=== PATIENT | male | born 1935 | race Caucasian/White ===

== ENCOUNTER 2016-11-21 21:54 | Emergency (ER) | payer MEDICARE ==
[2016-11-21 22:04] VITALS: BP 154/97; PULSE 74; RESP 18; TEMP 98.3
--- NOTE | 2016-11-21 22:21 | ED ---
Lower Extremity Injury HPI - General Chief Complaint: Extremity Injury, Lower Stated Complaint: knee pain Time Seen by Provider: 11/21/16 22:04 Source: patient, EMS, RN notes reviewed Mode of arrival: EMS Limitations: no limitations - History of Present Illness Initial Comments: 84-year-old female presents to the emergency department with chief complaint of left knee pain. Patient did fall a few days ago EMS was called to the house help get him out. Patient since has noticed some swelling around the left knee and pain. Patient denies any skin trauma. Patient states that the fall he has not had any other injury to the knee. Patient states nothing helps with her in the fall. Patient states he is here for evaluation.Patient denies any recent fever, chills, shortness of breath, chest pain, back pain, abdominal pain, nausea vomiting, numbness or tingling, dysuria or hematuria, constipation or diarrhea, headaches or visual changes, or any other current symptoms. - Related Data Home Medications Medication Instructions Recorded Confirmed Ferrous Sulfate [Feosol] 650 mg PO DAILY 03/25/14 11/21/16 Multivitamins, Thera [Multivitamin] 1 tab PO DAILY 03/25/14 11/21/16 Rivaroxaban [Xarelto] 20 mg PO DAILY 03/25/14 11/21/16 Tamsulosin [Flomax] 0.4 mg PO DAILY 03/25/14 11/21/16 Ascorbic Acid [Vitamin C] 500 mg PO DAILY 11/21/16 11/21/16 Ergocalciferol (Vitamin D2) 50,000 unit PO Q14D 11/21/16 11/21/16 [Vitamin D2] Fluticasone Nasal [place] [Flonase 2 spr EA NOSTRIL DAILY 11/21/16 11/21/16 Nas[place]] Loratadine [Claritin] 10 mg PO DAILY 11/21/16 11/21/16 Sertraline [Zoloft] 50 mg PO DAILY 11/21/16 11/21/16 Allergies Allergy/AdvReac Type Severity Reaction Status Date / Time No Known Allergies Allergy Verified 11/21/16 23:02 Review of Systems ROS Statement: Those systems with pertinent positive or pertinent negative responses have been documented in the HPI. ROS Other: All systems not noted in ROS Statement are negative. Past Medical History Additional Past Medical History / Comment(s): prostate, anemia Additional Past Surgical History / Comment(s): kidney, brain tumor Past Psychological History: Depression Smoking Status: Never smoker Past Alcohol Use History: None Reported Past Drug Use History: None Reported General Exam - General Exam Comments Initial Comments: General: The patient is awake and alert, in no distress, and does not appear acutely ill. Neck: The neck is supple, there is no tenderness. Cardiovascular: There is a regular rate and rhythm. No murmur, rub or gallop is appreciated. Respiratory: Lungs are clear to auscultation, respirations are non-labored, breath sounds are equal. No wheezes, stridor, rales, or rhonchi. Musculoskeletal: Sensation intact with 2+ pulses of the left extremity. Full range of motion of left ankle left knee and left hip. Patient does appear to have a joint effusion. No bruising no skin trauma. No erythema, no induration Neurological: CN II-XII intact, There are no obvious motor or sensory deficits. Coordination appears grossly intact. Speech is normal. Skin: Skin is warm and dry and no rashes or lesions are noted. Psychiatric: Normal mood and affect. Limitations: no limitations Course Vital Signs 11/21/16 22:01 Temperature 98.3 F Pulse Rate 74 Respiratory 18 Rate Blood Pressure 154/97 O2 Sat by Pulse 98 Oximetry Procedures - Orthopedic Splinting/Casting Injury #1 Side: left Lower Extremity Injury Location: knee Lower Extremity Immobilizer: Denis wrap Medical Decision Making - Medical Decision Making 81-year-old male presents with left knee pain. At this time patient underwent an x-ray. This time patient's x-rays reviewed and does not show any acute process. This time we discussed patient has a left joint effusion. We discussed ice discussed Tylenol for pain control. We discussed follow-up with orthopedics. We discussed use of Denis bandage. Patient stated that he understood and all questions have been answered. He will be discharged. - Radiology Data Radiology results: report reviewed, image reviewed Disposition Clinical Impression: Effusion, left knee Disposition: HOME SELF-CARE Condition: Stable Instructions: Swollen Knee Joint (ED) Additional Instructions: Please use medication as discussed. Please follow up with family doctor if symptoms have not improved over the next two days. Please return to the emergency room if your symptoms increase or worsen or for any other concerns. Referrals: Darvin Hurd DO [Primary Care Provider] - 1-2 days Braaksma,Tigre M, MD [Medical Doctor] - 1-2 days Time of Disposition: 23:41
--- NOTE | 2016-11-21 23:20 | XR ---
EXAM: XR Left Knee, 3 views. CLINICAL HISTORY: Reason: Pain TECHNIQUE: Three views of the left knee. COMPARISON: No relevant prior studies available. FINDINGS: Bones/joints: Moderate to severe osteoarthritis involves the medial knee joint compartment and patellofemoral joint. There is a large knee joint effusion distending the suprapatellar recess. No evidence of acute fracture, dislocation or bony erosion. Soft tissues: Scattered nodular soft tissue calcifications which may reflect calcified phleboliths. IMPRESSION: Moderate osteoarthritis. Large knee joint effusion. No acute fracture or dislocation.
== END 2016-11-22 00:10 | disposition home or self-care (01) ==
LOC: EC 21:54
DX: M25.462 Effusion, left knee (principal); F32.9 Major depressive disorder, single episode, unspecified; D64.9 Anemia, unspecified; Z79.899 Other long term (current) drug therapy; W18.30XA Fall on same level, unspecified, initial encounter
CPT/HCPCS: 99283

== ENCOUNTER 2017-01-31 22:47 | Emergency (ER) | payer MEDICARE ==
--- NOTE | 2017-01-31 23:18 | ED ---
Lower Extremity Injury HPI - General Chief Complaint: Extremity Injury, Lower Stated Complaint: Knee Pain Time Seen by Provider: 01/31/17 22:54 Source: patient, RN notes reviewed, old records reviewed Mode of arrival: EMS Limitations: physical limitation - History of Present Illness Initial Comments: Patient is an 82-year-old male presents emergency Department chief complaint of left knee pain. Patient reports that he's had this for the past 3 months. Patient reports he seen an orthopedic physician has had 2 steroid injections with a. Patient reports that the pain is diminished with flexion however whenever he is walking or ambulating and is painful. Patient denies any fever or chills or other associated symptoms. He denies any calf pain or thigh pain. - Related Data Home Medications Medication Instructions Recorded Confirmed Ferrous Sulfate [Feosol] 650 mg PO DAILY 03/25/14 11/21/16 Multivitamins, Thera [Multivitamin] 1 tab PO DAILY 03/25/14 11/21/16 Rivaroxaban [Xarelto] 20 mg PO DAILY 03/25/14 11/21/16 Tamsulosin [Flomax] 0.4 mg PO DAILY 03/25/14 11/21/16 Ascorbic Acid [Vitamin C] 500 mg PO DAILY 11/21/16 11/21/16 Ergocalciferol (Vitamin D2) 50,000 unit PO Q14D 11/21/16 11/21/16 [Vitamin D2] Fluticasone Nasal [place] [Flonase 2 spr EA NOSTRIL DAILY 11/21/16 11/21/16 Nasal [place]] Loratadine [Claritin] 10 mg PO DAILY 11/21/16 11/21/16 Sertraline [Zoloft] 50 mg PO DAILY 11/21/16 11/21/16 Previous Rx's Medication Instructions Recorded traMADol HCl [Ultram] 50 mg PO Q6H PRN #12 tab 02/01/17 Allergies Allergy/AdvReac Type Severity Reaction Status Date / Time No Known Allergies Allergy Verified 01/31/17 22:58 Review of Systems ROS Statement: Those systems with pertinent positive or pertinent negative responses have been documented in the HPI. ROS Other: All systems not noted in ROS Statement are negative. Past Medical History Additional Past Medical History / Comment(s): prostate, anemia Additional Past Surgical History / Comment(s): kidney, brain tumor Past Psychological History: Depression Smoking Status: Never smoker Past Alcohol Use History: None Reported Past Drug Use History: None Reported General Exam - General Exam Comments Initial Comments: Pleasant 82-year-old male. No distress. Limitations: physical limitation General appearance: alert, in no apparent distress Head exam: Present: atraumatic, normocephalic, normal inspection Eye exam: Present: normal appearance, PERRL, EOMI. Absent: scleral icterus, conjunctival injection, periorbital swelling ENT exam: Present: normal exam, mucous membranes moist Neck exam: Present: normal inspection. Absent: tenderness, meningismus, lymphadenopathy Respiratory exam: Present: normal lung sounds bilaterally. Absent: respiratory distress, wheezes, rales, rhonchi, stridor Cardiovascular Exam: Present: regular rate, normal rhythm, normal heart sounds. Absent: systolic murmur, diastolic murmur, rubs, gallop, clicks GI/Abdominal exam: Present: soft, normal bowel sounds. Absent: distended, tenderness, guarding, rebound, rigid Extremities exam: Present: normal inspection, full ROM, normal capillary refill , other (Left knee swelling). Absent: tenderness, pedal edema, joint swelling, calf tenderness Back exam: Present: normal inspection Neurological exam: Present: alert, oriented X3, CN II-XII intact Psychiatric exam: Present: normal affect, normal mood Skin exam: Present: warm, dry, intact, normal color. Absent: rash Course Vital Signs 01/31/17 02/01/17 22:52 01:15 Temperature 97.6 F 98.3 F Pulse Rate 101 H 80 Respiratory 18 16 Rate Blood Pressure 150/93 125/74 O2 Sat by Pulse 98 98 Oximetry Medical Decision Making - Medical Decision Making Patient is an 82-year-old male presents emergency Department chief complaint of left knee pain. Patient reports that he's had this for the past 3 months. Patient reports he seen an orthopedic physician has had 2 steroid injections with a. Patient reports that the pain is diminished with flexion however whenever he is walking or ambulating and is painful. Patient denies any fever or chills or other associated symptoms. He denies any calf pain or thigh pain. Patient does have swollen left knee, evidecne of effusion. PAtient xray shows severe arthritis. Patient CBC and uric acid are within normal limits. Discussed patient can take motrin and will write for tramadol for severe pain. Discussed follow up with PCP and orthopedic physcian. Patient and patient family agree to treatment plan and will comply - Lab Data Result diagrams: 01/31/17 23:47 Lab Results 01/31/17 01/31/17 Range/Units 23:47 23:47 WBC 8.2 (3.8-10.6) k/uL RBC 3.45 L (4.30-5.90) m/uL Hgb 10.5 L (13.0-17.5) gm/dL Hct 32.3 L (39.0-53.0) % MCV 93.7 (80.0-100.0) fL MCH 30.5 (25.0-35.0) pg MCHC 32.5 (31.0-37.0) g/dL RDW 14.4 (11.5-15.5) % Plt Count 74 L (150-450) k/uL Neutrophils % 83 % Lymphocytes % 10 % Monocytes % 5 % Eosinophils % 0 % Basophils % 0 % Neutrophils # 6.8 (1.3-7.7) k/uL Lymphocytes # 0.9 L (1.0-4.8) k/uL Monocytes # 0.4 (0-1.0) k/uL Eosinophils # 0.0 (0-0.7) k/uL Basophils # 0.0 (0-0.2) k/uL Manual Slide Review Performed Large Platelets Present Uric Acid 6.7 (3.5-8.5) mg/dL - Radiology Data Radiology results: report reviewed Advanced try car part mental osteoarthritis. Disposition Clinical Impression: Osteoarthritis of left knee Disposition: HOME SELF-CARE Condition: Good Instructions: Osteoarthritis (ED) Additional Instructions: Rest, ice, elevate extremity. Patient advised to follow-up with orthopedic physician and primary care physician within the next 2-3 days. Return to the emergency department if any signs or symptoms occur. Prescriptions: traMADol HCl [Ultram] 50 mg PO Q6H PRN #12 tab PRN Reason: Pain Referrals: Darvin Hurd DO [Primary Care Provider] - 1-2 days Time of Disposition: 00:42
--- NOTE | 2017-02-01 00:19 | XR ---
Exam: XR LEFT KNEE History: Pain. Swelling. No new injury reported. Comparison: Radiographs of the left knee dated 11/21/16. Technique: 3 views. Findings: Redemonstration of advanced tricompartmental osteoarthritis, most severe at the medial compartment and patellofemoral joint. Near-complete loss of joint space of the medial compartment. No abnormal soft tissue calcification. No significant erosive change appreciated. Probable moderate knee joint effusion. No aggressive appearing process. No definite evidence for acute displaced fracture or dislocation. Impression: Advanced tricompartmental osteoarthritis.
[2017-02-01 00:24] LABS: Basophils % (A) 0 %; CHCM 32.1; Eosinophils % (A) 0 %; HCT 32.3 % (39.0-53.0); HDW 2.36; HGB 10.5 gm/dL (13.0-17.5); Large Platelets Flag Marked; Luc % (Auto) 1; Lymphocytes # (A) 0.9 k/uL (1.0-4.8); Lymphocytes % (A) 10 %; MCH 30.5 pg (25.0-35.0); MCHC 32.5 g/dL (31.0-37.0); MCV 93.7 fL (80.0-100.0); Monocytes # (A) 0.4 k/uL (0-1.0); Monocytes % (A) 5 %; Neutrophils # (A) 6.8 k/uL (1.3-7.7); Neutrophils % (A) 83 %; RBC 3.45 m/uL (4.30-5.90); RDW 14.4 % (11.5-15.5); WBC 8.2 k/uL (3.8-10.6); WBC (Perox) 8.53
[2017-02-01] MEDS ORDERED: traMADol 50 MG STARTER PACK 3 TAB BTL PO STA (00:54)
[2017-02-01 00:55] LABS: Large Platelets Present; Manual Review Performed
[2017-02-01 01:25] VITALS: BP 125/74; PULSE 80; RESP 16; TEMP 98.3
== END 2017-02-01 01:22 | disposition home or self-care (01) ==
LOC: EC 22:47
DX: M17.12 Unilateral primary osteoarthritis, left knee (principal); D64.9 Anemia, unspecified; F32.9 Major depressive disorder, single episode, unspecified; Z79.899 Other long term (current) drug therapy
CPT/HCPCS: 36415; 84550; 85025; 99284

== ENCOUNTER 2017-04-15 02:27 | Inpatient (IN) | payer MEDICARE ==
[2017-04-15] MEDS ORDERED: DIPH,PERTUS(ACELL)TETVAC-LF 0.5 ML VIAL IM ONE (02:31)
[2017-04-15 03:33] LABS: Basophils % (A) 0 %; CH 30.6; CHCM 32.3; Eosinophils % (A) 1 %; HCT 21.3 % (39.0-53.0); HDW 2.28; Large Platelets Flag Marked; Luc # (Auto) 0.14; Luc % (Auto) 2; Lymphocytes # (A) 1.4 k/uL (1.0-4.8); Lymphocytes % (A) 21 %; MCH 29.7 pg (25.0-35.0); MCHC 31.2 g/dL (31.0-37.0); MCV 95.4 fL (80.0-100.0); Mean Platelet Volume 14.1; Monocytes # (A) 0.5 k/uL (0-1.0); Monocytes % (A) 7 %; Neutrophils # (A) 4.7 k/uL (1.3-7.7); Neutrophils % (A) 69 %; RBC 2.24 m/uL (4.30-5.90); RDW 15.6 % (11.5-15.5); WBC 6.8 k/uL (3.8-10.6); WBC (Perox) 6.74
[2017-04-15 03:36] LABS: HGB 6.6 gm/dL (13.0-17.5)
[2017-04-15 03:37] LABS: INR 1.3 (<1.2); Partial Thromboplastin Time 27.9 sec (22.0-30.0); Prothrombin Time 12.8 sec (9.0-12.0)
[2017-04-15 03:39] LABS: Calcium 8.3 mg/dL (8.4-10.2); Potassium 4.6 mmol/L (3.5-5.1); Total Bilirubin 0.6 mg/dL (0.2-1.3); Total Protein 5.5 g/dL (6.3-8.2)
--- NOTE | 2017-04-15 03:58 | XR ---
EXAM: XR Pelvis, 1 or 2 Views CLINICAL HISTORY: Reason: Trauma TECHNIQUE: Frontal view of the pelvis. COMPARISON: No relevant prior studies available. FINDINGS: Bones/joints: Unremarkable. No acute fracture. No dislocation. Soft tissues: Unremarkable. IMPRESSION: Normal pelvis x-ray.
[2017-04-15 04:01] LABS: Manual Review Performed
--- NOTE | 2017-04-15 04:02 | XR ---
EXAM: XR Left Hand Complete, 3 or More Views CLINICAL HISTORY: Reason: Pain TECHNIQUE: Frontal, lateral and oblique views of the left hand. COMPARISON: No relevant prior studies available. FINDINGS: Bones/joints: The scapholunate distance appears prominent at about 5 mm. Degenerative joint space loss and spurring in the first and second metacarpophalangeal joints. Mild spurring of the first metacarpophalangeal joint. Spurring and joint space loss also noted at the interphalangeal joint of the thumb. Degenerative spurring and joint space loss is seen at the DIP joint of the index finger. No acute fracture. No dislocation. Soft tissues: Unremarkable. No radiopaque foreign body. IMPRESSION: 1. No evidence of fracture. 2. Apparent widening of the scapholunate distance. This may represent chronic or acute injury of the scapholunate ligament. Correlate clinically. 3. 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
--- NOTE | 2017-04-15 04:08 | CT ---
EXAM: CT Head Without Intravenous Contrast CLINICAL HISTORY: Reason: trauma TECHNIQUE: Axial computed tomography images of the head/brain without intravenous contrast. DLP is 1566.80 mGy-cm. This CT exam was performed using one or more of the following dose reduction techniques: automated exposure control, adjustment of the mA and/or kV according to patient size, and/or use of iterative reconstruction technique. COMPARISON: No relevant prior studies available. FINDINGS: Brain: Right frontal and left frontal encephalomalacia. No hemorrhage. No significant white matter disease. No edema. Ventricles: Unremarkable. No ventriculomegaly. Bones/joints: Right frontal craniectomy changes noted. No acute fracture. Soft tissues: Unremarkable. Sinuses: Unremarkable as visualized. No acute sinusitis. Mastoid air cells: Unremarkable as visualized. No mastoid effusion. Other findings: Generalized atrophy. IMPRESSION: No acute findings. EXAM: CT Cervical Spine Without Intravenous Contrast CLINICAL HISTORY: Reason: trauma TECHNIQUE: Axial computed tomography images of the cervical spine without intravenous contrast. DLP is 461.50 mGy-cm. This CT exam was performed using one or more of the following dose reduction techniques: automated exposure control, adjustment of the mA and/or kV according to patient size, and/or use of iterative reconstruction technique. COMPARISON: No relevant prior studies available. FINDINGS: Vertebrae: Unremarkable. No acute fracture. Discs/spinal canal/neural foramina: Fusion across C2-3. Bilateral uncovertebral joint spurring at C3-4 causing bilateral neural foraminal narrowing. Posterior disc spur complex these at C4-5, C5-6, and C6-7 causing bilateral neural foraminal narrowing at these levels. Facet arthropathy from C3-C6. Soft tissues: Unremarkable. Lung apices: Unremarkable as visualized. IMPRESSION: No acute findings. Multilevel spondylotic changes as above.
--- NOTE | 2017-04-15 04:08 | XR ---
EXAM: XR Chest, 1 View CLINICAL HISTORY: Reason: trauma TECHNIQUE: Frontal view of the chest. COMPARISON: 04/17/15 FINDINGS: Lungs: Low lung volumes. Lungs are clear. Pleural space: Unremarkable. No pneumothorax. Heart: Unremarkable. No cardiomegaly. Mediastinum: Unremarkable. Bones/joints: Unremarkable. IMPRESSION: No acute findings.
--- NOTE | 2017-04-15 04:54 | CT ---
EXAM: CT Abdomen and Pelvis Without Intravenous Contrast CLINICAL HISTORY: Reason: Pain TECHNIQUE: Axial computed tomography images of the abdomen and pelvis without intravenous contrast. DLP is 1740.40 mGy-cm. This CT exam was performed using one or more of the following dose reduction techniques: automated exposure control, adjustment of the mA and/or kV according to patient size, and/or use of iterative reconstruction technique. COMPARISON: No relevant prior studies available. FINDINGS: Lower thorax: No acute findings. ABDOMEN: Liver: Unremarkable. Gallbladder and bile ducts: Unremarkable. No calcified stones. No ductal dilation. Pancreas: Unremarkable. No ductal dilation. Spleen: Unremarkable. No splenomegaly. Adrenals: Unremarkable. No mass. Kidneys and ureters: Left kidney is absent. No obstructing stones. No hydronephrosis. Stomach and bowel: Colonic fecal stasis. Appendix: No findings to suggest acute appendicitis. PELVIS: Bladder: Unremarkable. No stones. Reproductive: Unremarkable as visualized. ABDOMEN and PELVIS: Intraperitoneal space: Unremarkable. No free air. No significant fluid collection. Bones/joints: No acute fracture. No dislocation. Soft tissues: Swelling and enlargement of the left gluteal muscles. 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 Lymph nodes: Unremarkable. No enlarged lymph nodes. IMPRESSION: 1. No acute intra-abdominal or intrapelvic process. 2. Swelling and enlargement of the left gluteal muscles. This may represent intramuscular hematoma. Correlate with history of trauma or tenderness. Soft tissue mass is not excluded. 3. 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 4. Colonic fecal stasis. [employer] 04/15/17 05:[address] [facility] Dr. Malik on 04/15 05:07 (-04:00)
[2017-04-15] MEDS ORDERED: MORPHINE SULFATE 4 MG/ML SYRINGE IVP STA (05:37)
[2017-04-15] MEDS ORDERED: NALOXONE 0.4 MG/ML 1 ML VIAL IV PRN (05:37)
[2017-04-15] MEDS ORDERED: ONDANSETRON 4 MG/2 ML VIAL IVP PRN (05:44)
[2017-04-15] MEDS ORDERED: ACETAMINOPHEN TAB 325 MG TAB PO PRN (05:44)
--- NOTE | 2017-04-15 06:06 | ED ---
General Adult HPI - General Chief complaint: Fall Stated complaint: Fall Time Seen by Provider: 04/15/17 02:30 Source: patient, family, EMS, RN notes reviewed, old records reviewed Mode of arrival: EMS Limitations: no limitations - History of Present Illness Initial comments: 82-year-old male presents from home by EMS status post fall. Patient fell this evening while going to the bathroom. He did hit the right side of his head. No loss of consciousness. He also injured his left hand. This is the second fall today. He was evaluated by EMS and refuse transport earlier in the day. There is no injury associated with that fall. And the patient spouse reports that he fell earlier in the week and did not seek evaluation at that time. Patient has a history of A. fib and is on Xarelto. - Related Data Home Medications Medication Instructions Recorded Confirmed Ferrous Sulfate [Feosol] 650 mg PO DAILY 03/25/14 11/21/16 Multivitamins, Thera [Multivitamin] 1 tab PO DAILY 03/25/14 11/21/16 Rivaroxaban [Xarelto] 20 mg PO DAILY 03/25/14 11/21/16 Tamsulosin [Flomax] 0.4 mg PO DAILY 03/25/14 11/21/16 Ascorbic Acid [Vitamin C] 500 mg PO DAILY 11/21/16 11/21/16 Ergocalciferol (Vitamin D2) 50,000 unit PO Q14D 11/21/16 11/21/16 [Vitamin D2] Fluticasone Nasal [place] [Flonase 2 spr EA NOSTRIL DAILY 11/21/16 11/21/16 Nasal [place]] Loratadine [Claritin] 10 mg PO DAILY 11/21/16 11/21/16 Sertraline [Zoloft] 50 mg PO DAILY 11/21/16 11/21/16 Previous Rx's Medication Instructions Recorded traMADol HCl [Ultram] 50 mg PO Q6H PRN #12 tab 02/01/17 Allergies Allergy/AdvReac Type Severity Reaction Status Date / Time No Known Allergies Allergy Verified 04/15/17 02:36 Review of Systems ROS Statement: Those systems with pertinent positive or pertinent negative responses have been documented in the HPI. ROS Other: All systems not noted in ROS Statement are negative. Past Medical History Additional Past Medical History / Comment(s): prostate, anemia History of Any Multi-Drug Resistant Organisms: None Reported Additional Past Surgical History / Comment(s): kidney, brain tumor Past Psychological History: Depression Smoking Status: Never smoker Past Alcohol Use History: None Reported Past Drug Use History: None Reported General Exam Limitations: no limitations General appearance: alert, in no apparent distress Head exam: Present: normocephalic, other (Mode parietal hematoma and 2 cm laceration) ENT exam: Present: normal exam Neck exam: Present: normal inspection, full ROM. Absent: tenderness, meningismus Respiratory exam: Present: normal lung sounds bilaterally. Absent: respiratory distress Cardiovascular Exam: Present: regular rate, irregular rhythm GI/Abdominal exam: Present: soft. Absent: distended, tenderness, guarding Rectal exam: Present: normal inspection, heme (-) stool Extremities exam: Present: tenderness, normal capillary refill (Significant swelling and ecchymosis to the low back, sacrum, left gluteal and thigh region.) Back exam: Present: other (Ecchymosis starting at the sacral region) Neurological exam: Present: alert, oriented X3, CN II-XII intact. Absent: motor sensory deficit Psychiatric exam: Present: normal affect, normal mood Skin exam: Present: warm, dry, cyanosis. Absent: diaphoretic Course Vital Signs 04/15/17 04/15/17 04/15/17 02:30 03:22 04:28 Temperature 98.3 F Pulse Rate 97 78 88 Respiratory 18 18 16 Rate Blood Pressure 120/59 109/68 115/57 O2 Sat by Pulse 99 99 100 Oximetry 04/15/17 05:29 Temperature 98.1 F Pulse Rate 86 Respiratory 17 Rate Blood Pressure 115/57 O2 Sat by Pulse 100 Oximetry - Reevaluation(s) Reevaluation #1: 04/15/17 05:54 Patient complains of left gluteal and thigh Pain. EKG Findings - EKG Comments: EKG Findings:: EKG shows atrial fibrillation, ventricular rate of 90, QRS duration 118, QTC 464, no signs of ischemia Procedures - Laceration Laceration #1 Consent Obtained: verbal consent Time Out Performed: Yes Indication: laceration Site: scalp Description: linear Depth: simple, single layer Pre-repair: irrigated extensively, deep structures intact Type of Sutures: other (Status) Patient Tolerated Procedure: well Additional Comments: Partial thickness Laceration approximately 3 cm in length Medical Decision Making - Medical Decision Making Patient presents with multiple falls, 2 today and one approximately a week ago. Patient has significant ecchymosis over the sacrum, left gluteal region and left thigh. This does appear to be somewhat old in nature. He also has a 3 cm scalp laceration which is repaired, and left hand skin avulsion. No chest pain or shortness of breath. No abdominal pain. Neurologic exam is nonfocal. Patient is otherwise well appearing vital signs are stable. CT head is negative for intracranial hemorrhage, CT cervical spine negative for fracture subluxation. Chest x-ray shows no acute process, x-ray of the pelvis shows no acute bony abnormality. Hemoglobin is noted to be 6.6, baseline at 10.8 in February. This does prompt CT of the abdomen and pelvis which shows large left gluteal hematoma. It is uncertain if this is related to the fall from today or from the fall a week ago. Additional laboratory studies reveal platelets of 87 which is chronic, INR mildly elevated 1.3 creatinine of 1.9 from baseline 1.5. Hemoccult is negative. Case is discussed with trauma surgeon Dr. Bravo. Patient will be given 1 unit of RBCs, hemoglobin will be rechecked at 9 AM this morning. Be admitted to trauma service with medicine on for medical management. Diagnosis: Acute blood loss anemia, left gluteal thigh hematoma, multiple falls , scalp hematoma and laceration, thrombocytopenia, acute kidney injury. - Lab Data Result diagrams: 04/15/17 03:21 04/15/17 03:21 Lab Results 04/15/17 04/15/17 04/15/17 Range/Units 03:21 03:21 03:21 WBC 6.8 (3.8-10.6) k/uL RBC 2.24 L (4.30-5.90) m/uL Hgb 6.6 L* D (13.0-17.5) gm/dL Hct 21.3 L (39.0-53.0) % MCV 95.4 (80.0-100.0) fL MCH 29.7 (25.0-35.0) pg MCHC 31.2 (31.0-37.0) g/dL RDW 15.6 H (11.5-15.5) % Plt Count 87 L (150-450) k/uL Neutrophils % 69 % Lymphocytes % 21 % Monocytes % 7 % Eosinophils % 1 % Basophils % 0 % Neutrophils # 4.7 (1.3-7.7) k/uL Lymphocytes # 1.4 (1.0-4.8) k/uL Monocytes # 0.5 (0-1.0) k/uL Eosinophils # 0.0 (0-0.7) k/uL Basophils # 0.0 (0-0.2) k/uL Manual Slide Review Performed PT (9.0-12.0) sec INR (<1.2) APTT (22.0-30.0) sec Sodium 142 (137-145) mmol/L Potassium 4.6 (3.5-5.1) mmol/L Chloride 110 H (98-107) mmol/L Carbon Dioxide 22 (22-30) mmol/L Anion Gap 10 mmol/L BUN 53 H (9-20) mg/dL Creatinine 1.90 H (0.66-1.25) mg/dL Est GFR (MDRD) Af Amer 41 (>60 ml/min/1.73 sqM) Est GFR (MDRD) Non-Af 34 (>60 ml/min/1.73 sqM) Glucose 138 H (74-99) mg/dL Plasma Lactic Acid Ralph (0.7-2.0) mmol/L Calcium 8.3 L (8.4-10.2) mg/dL Total Bilirubin 0.6 (0.2-1.3) mg/dL AST 20 (17-59) U/L ALT 26 (21-72) U/L Alkaline Phosphatase 47 (38-126) U/L Troponin I (0.000-0.034) ng/mL Total Protein 5.5 L (6.3-8.2) g/dL Albumin 3.3 L (3.5-5.0) g/dL Stool Occult Blood (Negative) Blood Type O Positive Blood Type Recheck No Antibody Screen NEGATIVE Crossmatch See Detail Spec Expiration Date 04/18/2017 - 232004/15/17 04/15/17 04/15/17 Range/Units 03:21 03:21 03:21 WBC (3.8-10.6) k/uL RBC (4.30-5.90) m/uL Hgb (13.0-17.5) gm/dL Hct (39.0-53.0) % MCV (80.0-100.0) fL MCH (25.0-35.0) pg MCHC (31.0-37.0) g/dL RDW (11.5-15.5) % Plt Count (150-450) k/uL Neutrophils % % Lymphocytes % % Monocytes % % Eosinophils % % Basophils % % Neutrophils # (1.3-7.7) k/uL Lymphocytes # (1.0-4.8) k/uL Monocytes # (0-1.0) k/uL Eosinophils # (0-0.7) k/uL Basophils # (0-0.2) k/uL Manual Slide Review PT 12.8 H (9.0-12.0) sec INR 1.3 H (<1.2) APTT 27.9 (22.0-30.0) sec Sodium (137-145) mmol/L Potassium (3.5-5.1) mmol/L Chloride (98-107) mmol/L Carbon Dioxide (22-30) mmol/L Anion Gap mmol/L BUN (9-20) mg/dL Creatinine (0.66-1.25) mg/dL Est GFR (MDRD) Af Amer (>60 ml/min/1.73 sqM) Est GFR (MDRD) Non-Af (>60 ml/min/1.73 sqM) Glucose (74-99) mg/dL Plasma Lactic Acid Ralph 1.0 (0.7-2.0) mmol/L Calcium (8.4-10.2) mg/dL Total Bilirubin (0.2-1.3) mg/dL AST (17-59) U/L ALT (21-72) U/L Alkaline Phosphatase (38-126) U/L Troponin I <0.012 (0.000-0.034) ng/mL Total Protein (6.3-8.2) g/dL Albumin (3.5-5.0) g/dL Stool Occult Blood (Negative) Blood Type Blood Type Recheck Antibody Screen Crossmatch Spec Expiration Date 04/15/17 Range/Units 03:55 WBC (3.8-10.6) k/uL RBC (4.30-5.90) m/uL Hgb (13.0-17.5) gm/dL Hct (39.0-53.0) % MCV (80.0-100.0) fL MCH (25.0-35.0) pg MCHC (31.0-37.0) g/dL RDW (11.5-15.5) % Plt Count (150-450) k/uL Neutrophils % % Lymphocytes % % Monocytes % % Eosinophils % % Basophils % % Neutrophils # (1.3-7.7) k/uL Lymphocytes # (1.0-4.8) k/uL Monocytes # (0-1.0) k/uL Eosinophils # (0-0.7) k/uL Basophils # (0-0.2) k/uL Manual Slide Review PT (9.0-12.0) sec INR (<1.2) APTT (22.0-30.0) sec Sodium (137-145) mmol/L Potassium (3.5-5.1) mmol/L Chloride (98-107) mmol/L Carbon Dioxide (22-30) mmol/L Anion Gap mmol/L BUN (9-20) mg/dL Creatinine (0.66-1.25) mg/dL Est GFR (MDRD) Af Amer (>60 ml/min/1.73 sqM) Est GFR (MDRD) Non-Af (>60 ml/min/1.73 sqM) Glucose (74-99) mg/dL Plasma Lactic Acid Ralph (0.7-2.0) mmol/L Calcium (8.4-10.2) mg/dL Total Bilirubin (0.2-1.3) mg/dL AST (17-59) U/L ALT (21-72) U/L Alkaline Phosphatase (38-126) U/L Troponin I (0.000-0.034) ng/mL Total Protein (6.3-8.2) g/dL Albumin (3.5-5.0) g/dL Stool Occult Blood Negative (Negative) Blood Type Blood Type Recheck Antibody Screen Crossmatch Spec Expiration Date Critical Care Time Critical Care Time: Yes Total Critical Care Time: 35 Disposition Clinical Impression: Acute blood loss anemia, Hematoma of left thigh Disposition: ADMITTED IP TO THIS [facility] Condition: Stable Referrals: Darvin Hurd DO [Primary Care Provider] - 1-2 days Decision to Admit Reason: Admit from EC Decision Date: 04/15/17 Decision Time: 05:30
[2017-04-15] MEDS: SODIUM CHLORIDE 0.9% 1,000 ML IV SCH (06:27)
[2017-04-15 07:03] LABS: Appearance,Urine Clear (Clear); Bilirubin,Urine Negative (Negative); Glucose,Urine (UA) Negative (Negative); Ketones,Urine Negative (Negative); Leukocyte Esterase,Urine Negative (Negative); Nitrite,Urine Negative (Negative); Protein,Urine Negative (Negative); Specific Gravity,Urine 1.012 (1.001-1.035); UA Billing (MACRO vs. MICRO) CHEM; Urobilinogen,Urine <2.0 mg/dL (<2.0)
[2017-04-15] MEDS ORDERED: FERROUS SULFATE 325 MG TAB PO SCH (09:00)
[2017-04-15] MEDS: MORPHINE SULFATE 4 MG/ML SYRINGE IV PRN ×2 (09:57→16:33)
[2017-04-15] MEDS: TAMSULOSIN 0.4 MG CAP.ER.24H PO SCH (09:58)
[2017-04-15] MEDS ORDERED: SERTRALINE 100 MG TAB PO SCH (10:45)
[2017-04-15] MEDS: METOPROLOL TARTRATE 12.5 MG TAB PO SCH ×2 (11:54→21:02)
[2017-04-15] MEDS: FLUTICASONE 50MCG/SPRAY NASAL 16GM EA NOSTRIL SCH (11:54)
[2017-04-15] MEDS: MULTIVITAMINS, THERA 1 EACH TAB PO SCH (11:55)
[2017-04-15] MEDS: SERTRALINE 50 MG TAB PO SCH (11:55)
[2017-04-15 12:03] LABS: Glucose,Whole Blood 120 mg/dL (75-99)
[2017-04-15 12:29] LABS: Anisocytosis Slight; Basophils % (A) 0 %; CH 30.2; CHCM 30.7; Eosinophils % (A) 0 %; HDW 2.53; Hypochromasia Slight; Large Platelets Flag Marked; Luc # (Auto) 0.16; Luc % (Auto) 3; Lymphocytes # (A) 1.3 k/uL (1.0-4.8); Lymphocytes % (A) 20 %; MCH 30.5 pg (25.0-35.0); MCHC 30.8 g/dL (31.0-37.0); Macrocytosis Slight; Mean Platelet Volume 13.3; Monocytes # (A) 0.5 k/uL (0-1.0); Monocytes % (A) 8 %; Neutrophils # (A) 4.4 k/uL (1.3-7.7); Neutrophils % (A) 69 %; RBC 2.22 m/uL (4.30-5.90); RDW 16.2 % (11.5-15.5); WBC 6.3 k/uL (3.8-10.6); WBC (Perox) 6.29
[2017-04-15 12:31] LABS: HGB 6.8 gm/dL (13.0-17.5)
[2017-04-15 12:45] LABS: Large Platelets Present
--- NOTE | 2017-04-15 13:26 | P.CONS ---
History of Present Illness - Reason for Consult Consult date: 04/15/17 Medical management Requesting physician: Fabi Bravo - Chief Complaint Syncope, severe symptomatic anemia, A. fib with RVR, hypertension, BPH - History of Present Illness 82-year-old male one of Dr. Hurd patient with past medical history of A. fib, brain tumor, COPD, DM, hypertension and chronic kidney disease who apparently fell twice yesterday in his bedroom the second time according to the noticed to have a syncope and syncope symptoms was fully awake at the time with the floor. Patient's ended up coming to the emergency department [facility] by EMS. Surprisingly found to have hemoglobin of 6.6 was symptomatic anemia causing the presyncope and syncopal symptoms. No visual bleed according to the . No further symptom of bright red blood per rectum or black stools no hematuria. Patient has been having low-grade anemia has been on iron supplement but never been that low. Review of Systems Constitutional: Reports anorexia, Reports chronic pain, Reports fatigue, Reports lethargy, Reports malaise, Reports weight loss, Denies as per HPI, Denies chills, Denies chronic headaches, Denies daytime sleepiness, Denies fever , Denies night sweats, Denies poor appetite, Denies sweats, Denies weakness, Denies weight gain Eyes: bilateral as per HPI Ears, nose, mouth and throat: Reports nasal discharge, Reports sinus pain, Reports sinus pressure, Denies as per HPI, Denies ant. neck pain, Denies bleeding gums, Denies dental pain, Denies dysphagia, Denies epistaxis, Denies headache, Denies hoarseness, Denies mouth pain, Denies nasal congestion, Denies neck fullness/pressure, Denies neck lump, Denies nose pain, Denies odynophagia, Denies post-nasal drip, Denies swelling in mouth, Denies swelling in throat, Denies sore throat, Denies vertigo, Denies voice changes Cardiovascular: Reports chest pain, Reports dyspnea on exertion, Reports edema, Reports high blood pressure, Reports irregular heart beat, Reports lightheadedness, Reports orthopnea, Reports paroxysmal nocturnal dyspnea, Reports rapid heart beat, Reports shortness of breath, Reports syncope, Denies as per HPI, Denies claudication, Denies decreased exercise tolerance, Denies leg edema, Denies palpitations, Denies phlebitis Respiratory: Reports congestion, Reports cough with sputum, Reports dyspnea, Denies as per HPI, Denies cough, Denies excessive sputum, Denies hemoptysis, Denies home oxygen, Denies pain, Denies pain on inspiration, Denies pleurisy, Denies respiratory infections, Denies sleep apnea, Denies snoring, Denies wheezing Gastrointestinal: Reports bloating, Reports early satiety, Reports indigestion, Reports nausea, Denies as per HPI, Denies abdominal pain, Denies belching, Denies BRBPR, Denies change in bowel habits, Denies coffee ground emesis, Denies constipation, Denies diarrhea, Denies dyspepsia, Denies excessive gas, Denies heartburn, Denies hematemesis, Denies hematochezia, Denies jaundice, Denies lactose intolerance, Denies loss of appetite, Denies melena, Denies vomiting Genitourinary: Reports dysuria, Reports urinary frequency, Denies as per HPI, Denies decreased libido, Denies difficulties fathering child, Denies discharge, Denies erectile dysfunction, Denies flank pain, Denies genital pain, Denies genital sores, Denies hematuria, Denies impotence, Denies incontinence, Denies kidney stones, Denies nocturia, Denies polyuria, Denies testicular lump, Denies testicular pain, Denies urinary hesitancy, Denies urinary retention Musculoskeletal: Reports low back pain, Reports myalgias, Reports neck pain, Reports neck stiffness, Denies as per HPI, Denies arm numbness/tingling, Denies atrophy, Denies fractures, Denies frequent falls, Denies gait dysfunction, Denies hot joints, Denies leg numbness/tingling, Denies limitation of motion, Denies loss of height, Denies morning stiffness, Denies muscle cramps, Denies muscle weakness, Denies prior amputations, Denies redness of joints, Denies shooting arm pain, Denies shooting leg pain Musculoskeletal: bilateral: ankle pain Integumentary: Reports pruritus, Reports rash, Denies as per HPI, Denies acne, Denies boils, Denies brittle nails, Denies change in hair/nails, Denies color changes, Denies darkening of skin, Denies depigmentation, Denies dryness, Denies foot/leg ulcers, Denies growths, Denies hirsutism, Denies lesions, Denies onychomycosis, Denies sores, Denies striae, Denies unusual bruising, Denies wounds Neurological: Reports balance difficulties, Reports confusion, Reports convulsions, Reports memory loss, Reports syncope, Denies as per HPI, Denies aphasia, Denies ataxia, Denies burning pain, Denies change in mentation, Denies change in smell/taste, Denies change in speech, Denies double vision, Denies gait dysfunction, Denies head injury, Denies headaches, Denies hearing difficulties, Denies lack of coordination, Denies loss of vision, Denies migraines, Denies motor disturbance, Denies numbness, Denies paralysis, Denies paresthesias, Denies seizures, Denies sensory deficit, Denies spasticity, Denies tic, Denies tingling, Denies transient paralysis, Denies tremors, Denies vertigo, Denies weakness, Denies visual changes Psychiatric: Reports anhedonia, Reports anxiety, Denies as per HPI, Denies anxiety attacks, Denies change in appetite, Denies change in libido, Denies change in sleep habits, Denies confusion, Denies depression, Denies difficulty concentrating, Denies disorientation, Denies hallucinations, Denies hopelessness , Denies hypersomnia, Denies insomnia, Denies irritability, Denies memory loss, Denies mood swings, Denies paranoia, Denies sadness/tearfulness, Denies sleep disturbances, Denies suicidal ideation Endocrine: Reports excessive thirst, Reports fatigue, Reports heat intolerance, Reports nocturia, Reports polyuria, Denies as per HPI, Denies cold intolerance, Denies deepening of the voice, Denies excessive sweating, Denies flushing, Denies high blood sugars, Denies increase in ring/shoe/hat size, Denies low blood sugars, Denies palpitations, Denies polydipsia, Denies polyphagia, Denies proptosis, Denies recent glucocorticoid use, Denies thyroid mass, Denies weight change Hematologic/Lymphatic: Reports easy bruising, Denies as per HPI, Denies easy bleeding, Denies lymphadenopathy, Denies lymphedema, Denies thrombophilia Allergic/Immunologic: Reports allergic rhinitis, Denies as per HPI, Denies anaphylaxis, Denies angioedema, Denies gluten intolerance, Denies persistent infections, Denies seasonal allergies, Denies urticaria, Denies wheezing Past Medical History Past Medical History: Atrial Fibrillation, Cancer, COPD, Diabetes Mellitus, Eye Disorder, Hearing Disorder / Deafness, Hypertension, Pneumonia, Prostate Disorder, Renal Disease Additional Past Medical History / Comment(s): 2009 Brain cancer with surgery and radiation, L nephrectomy d/t deteriorating kidney, BPH, anemia, diet controlled diabetes, generalized arthritis, 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 History of Any Multi-Drug Resistant Organisms: None Reported Additional Past Surgical History / Comment(s): L nephrectomy, brain tumor removal, bilateral cataract removals, colonoscopy. Past Anesthesia/Blood Transfusion Reactions: No Reported Reaction Smoking Status: Former smoker - Past Family History Father Family Medical History: No Reported History Additional Family Medical History / Comment(s): Father was healthy. He at the age of 62yrs in a MVA. Mother Additional Family Medical History / Comment(s): Mother at the age of 86yrs of "heart problems." Medications and Allergies Home Medications Medication Instructions Recorded Confirmed Type Ferrous Sulfate [Feosol] 650 mg PO DAILY 03/25/14 04/15/17 History Multivitamins, Thera [Multivitamin] 1 tab PO DAILY 03/25/14 04/15/17 History Rivaroxaban [Xarelto] 20 mg PO DAILY 03/25/14 04/15/17 History Tamsulosin [Flomax] 0.4 mg PO DAILY 03/25/14 04/15/17 History Ascorbic Acid [Vitamin C] 500 mg PO DAILY 11/21/16 04/15/17 History Ergocalciferol (Vitamin D2) 50,000 unit PO Q14D 11/21/16 04/15/17 History [Vitamin D2] Fluticasone Nasal [place] [Flonase 2 spr EA NOSTRIL DAILY 11/21/16 04/15/17 History Nasal [place]] Loratadine [Claritin] 10 mg PO DAILY 11/21/16 04/15/17 History Sertraline [Zoloft] 50 mg PO DAILY 11/21/16 04/15/17 History Allergies Allergy/AdvReac Type Severity Reaction Status Date / Time No Known Allergies Allergy Verified 04/15/17 08:05 Physical Exam Vitals: Vital Signs Temp Pulse Pulse Resp BP BP Pulse Ox 04/15/17 12:00 98.5 F 90 18 122/69 96 04/15/17 08:49 98.2 F 101 H 18 128/64 95 04/15/17 08:45 98.2 F 101 H 18 128/64 95 04/15/17 07:07 101 H 18 120/71 98 04/15/17 06:49 98.6 F 97 18 111/64 100 04/15/17 06:19 98.7 F 87 17 114/55 100 04/15/17 06:09 98.4 F 85 16 102/58 100 04/15/17 06:03 99.0 F 91 16 112/61 96 04/15/17 05:29 98.1 F 86 17 115/57 100 04/15/17 04:28 88 16 115/57 100 04/15/17 03:22 78 18 109/68 99 04/15/17 02:30 98.3 F 97 18 120/59 99 Intake and Output 04/14/17 04/15/17 04/15/17 22:59 06:59 14:59 Intake Total 0 310 Output Total 600 Balance 0 -290 Intake: Blood Product 0 310 Rc As-1 Unit 0 310 [id number] Output: Urine 600 Other: # Voids 1 Weight 95.254 kg - Constitutional General appearance: no average body habitus, cooperative, disheveled, no mild distress, no morbidly obese, no no acute distress, no obese, no severe distress , no thin - EENT Eyes: no abnormal pupil, no anicteric sclerae, no disc margins sharp, no edentulous, no EOMI, no PERRLA, no fundus normal, no photophobia, no dentition normal, no poor dentition, no ptosis, no scleral icterus, normal appearance ENT: hard of hearing, no hearing grossly normal, no NA/AT, normal oropharynx, no other, no pharyngeal erythema, no thrush, no tonsillar exudates, no tonsillar swelling Ears: bilateral: normal - Neck Neck: normal ROM Carotids: bilateral: upstroke normal Thyroid: bilateral: normal size - Respiratory Respiratory: bilateral: CTA, diminished, dullness - Cardiovascular Rhythm: regular Heart sounds: normal: S1, S2 Abnormal Heart Sounds: systolic murmur, S3 Gallop - Gastrointestinal General gastrointestinal: no absent bowel sounds, decreased bowel sounds, no distended, no hepatomegaly, no hyperactive bowel sounds, normal bowel sounds, no organomegaly, no rigid, no scaphoid, soft, no splenomegaly, no tenderness, no umbilical hernia, no ventral hernia - Integumentary Very large hematoma and bruise on the left thigh area extended for almost 15 inches below the hip level extended all the way to the back of the thigh as well. Integumentary: no calor, no cellulitis, no cyanotic, no decreased turgor, no flushed, no jaundiced, normal, no normal turgor, pale, rash, no ulcer - Neurologic Neurologic: CNII-XII intact - Musculoskeletal Musculoskeletal: gait normal, generalized weakness, strength equal bilaterally, no right sided weakness, no left sided weakness - Psychiatric Psychiatric: A&O x's 3, appropriate affect, no intact judgment & insight Results CBC & Chem 7: 04/15/17 11:54 04/15/17 03:21 Labs: Abnormal Lab Results - Last 24 Hours (Table) 04/15/17 04/15/17 04/15/17 Range/Units 03:21 03:21 03:21 RBC 2.24 L (4.30-5.90) m/uL Hgb 6.6 L* D (13.0-17.5) gm/dL Hct 21.3 L (39.0-53.0) % MCHC (31.0-37.0) g/dL RDW 15.6 H (11.5-15.5) % Plt Count 87 L (150-450) k/uL PT (9.0-12.0) sec INR (<1.2) Chloride 110 H (98-107) mmol/L BUN 53 H (9-20) mg/dL Creatinine 1.90 H (0.66-1.25) mg/dL Glucose 138 H (74-99) mg/dL POC Glucose (mg/dL) (75-99) mg/dL Calcium 8.3 L (8.4-10.2) mg/dL Total Protein 5.5 L (6.3-8.2) g/dL Albumin 3.3 L (3.5-5.0) g/dL Crossmatch See Detail 08/22/17 08/22/17 08/22/17 Range/Units 03:21 11:50 11:54 RBC 2.22 L (4.30-5.90) m/uL Hgb 6.8 L* (13.0-17.5) gm/dL Hct 22.0 L (39.0-53.0) % MCHC 30.8 L (31.0-37.0) g/dL RDW 16.2 H (11.5-15.5) % Plt Count 79 L (150-450) k/uL PT 12.8 H (9.0-12.0) sec INR 1.3 H (<1.2) Chloride (98-107) mmol/L BUN (9-20) mg/dL Creatinine (0.66-1.25) mg/dL Glucose (74-99) mg/dL POC Glucose (mg/dL) 120 H (75-99) mg/dL Calcium (8.4-10.2) mg/dL Total Protein (6.3-8.2) g/dL Albumin (3.5-5.0) g/dL Crossmatch Assessment and Plan Plan: 1 acute syncopal episode: Most likely secondary to acute blood loss anemia, patient be watch on heart monitor continue current testing with the A. fib if there is any other possibility for bradycardia or any other consistent symptoms should be found and treated. 2 acute blood loss anemia: Not a clear why the blood count at low. Patient had large hematoma of the left thigh most likely happen after the fall from the syncope which was caused by the anemia and the first place, blood transfusion be done and watch for any other source of GI bleed such as gastric ulcer or wrap colitis Hemoccult will be done patient be kept on GI prophylaxis. 3 acute kidney injury with chronic kidney disease: With worsening BUN/ creatinine ratio continue mild hydration repeat BUN/creatinine daily. 4 A. fib with RVR: Heart rate is slightly bit faster patient is not on beta tariq currently we will add metoprolol 12.5 g twice a day patient has been on Xarelto which will be held for now. 5 BPH: Patient still on Flomax 0.4 mg a day continue medication. 6 severe ALLERGY: Has been on loratadine 10 mg a day and nasal spray daily. 7 depression: Has been on Zoloft 50 mg a day. 8 Mild hyperglycemia: Continue Accu-Chek with sliding scales coverage. 9 thrombocytopenia: Specially with the decrease in hemoglobin will watch it if further decline in both patient might require further hematology testing including bone marrow biopsy if needed especially if there is no consistent GI bleed with anemia. 10 GI prophylaxis: Patient will be on pantoprazole daily. DVT prophylaxis: Knee-high JARRET hose and Venodyne boots. CODE STATUS: Full code. Dr. Bravo thank you very much for the consult if I can be any further help to please let me know.
[2017-04-15] MEDS: PANTOPRAZOLE 40 MG/10 ML VIAL IVP SCH (14:27)
[2017-04-15 16:14] LABS: Glucose,Whole Blood 151 mg/dL (75-99)
--- NOTE | 2017-04-15 17:45 | P.GSHP ---
History of Present Illness H&P Date: 04/15/17 Chief Complaint: Hematoma of L gluteal muscle 82-year-old male with past medical history of A. fib, brain tumor, COPD, DM, hypertension and chronic kidney disease who fell twice in the last few days at home. His believes he was having syncopal episodes. On work-up , he was found to have a hgb of 6.6. He denies any bleeding per rectum or gross blood loss. He does admit to a large bruising on his left posterior thigh and gluteus. No further symptom of bright red blood per rectum or black stools no hematuria. He states he feels well currently. Denies any pain. Denies fevers, chills, chest pain, SOB. No additional complaints at this time. He denies ever havign a workup for syncope and is on blood thinners for his hx of AFib. - Constitutional Constitutional: Reports lethargy, Reports weakness - EENT Eyes: denies blurred vision, denies decreased vision, denies loss of vision Ears, nose, mouth and throat: Denies epistaxis, Denies swelling in throat, Denies sore throat - Cardiovascular Cardiovascular: Denies chest pain, Denies lightheadedness, Denies rapid heart beat, Denies shortness of breath - Respiratory Respiratory: Denies cough, Denies dyspnea, Denies snoring, Denies wheezing - Gastrointestinal Gastrointestinal: Denies abdominal pain, Denies BRBPR, Denies coffee ground emesis, Denies hematemesis, Denies hematochezia, Denies melena, Denies nausea, Denies vomiting - Genitourinary (Female) Genitourinary: Denies hematuria - Genitourinary (Male) Genitourinary: Denies flank pain - Musculoskeletal Musculoskeletal: Denies leg numbness/tingling, Denies limitation of motion, Denies low back pain, Denies muscle cramps, Denies muscle weakness - Integumentary Comment: bruising on posterior left thigh and gluteus Integumentary: Reports unusual bruising - Neurological Neurological: Denies balance difficulties, Denies change in speech, Denies headaches, Denies visual changes - Allergic/Immunologic Allergic/Immunologic: Reports as per HPI Past Medical History Past Medical History: Atrial Fibrillation, Cancer, COPD, Diabetes Mellitus, Eye Disorder, Hearing Disorder / Deafness, Hypertension, Pneumonia, Prostate Disorder, Renal Disease Additional Past Medical History / Comment(s): 2009 Brain cancer with surgery and radiation, L nephrectomy d/t deteriorating kidney, BPH, anemia, diet controlled diabetes, generalized arthritis, 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 History of Any Multi-Drug Resistant Organisms: None Reported Additional Past Surgical History / Comment(s): L nephrectomy, brain tumor removal, bilateral cataract removals, colonoscopy. Past Anesthesia/Blood Transfusion Reactions: No Reported Reaction Smoking Status: Former smoker - Past Family History Father Family Medical History: No Reported History Additional Family Medical History / Comment(s): Father was healthy. He at the age of 62yrs in a MVA. Mother Additional Family Medical History / Comment(s): Mother at the age of 86yrs of "heart problems." Medications and Allergies Home Medications Medication Instructions Recorded Confirmed Type Ferrous Sulfate [Feosol] 650 mg PO DAILY 03/25/14 04/15/17 History Multivitamins, Thera [Multivitamin] 1 tab PO DAILY 03/25/14 04/15/17 History Rivaroxaban [Xarelto] 20 mg PO DAILY 03/25/14 04/15/17 History Tamsulosin [Flomax] 0.4 mg PO DAILY 03/25/14 04/15/17 History Ascorbic Acid [Vitamin C] 500 mg PO DAILY 11/21/16 04/15/17 History Ergocalciferol (Vitamin D2) 50,000 unit PO Q14D 11/21/16 04/15/17 History [Vitamin D2] Fluticasone Nasal [place] [Flonase 2 spr EA NOSTRIL DAILY 11/21/16 04/15/17 History Nasal [place]] Loratadine [Claritin] 10 mg PO DAILY 11/21/16 04/15/17 History Sertraline [Zoloft] 50 mg PO DAILY 11/21/16 04/15/17 History Allergies Allergy/AdvReac Type Severity Reaction Status Date / Time No Known Allergies Allergy Verified 04/15/17 08:05 Surgical - Exam Osteopathic Statement: *. No significant issues noted on an osteopathic structural exam other than those noted in the History and Physical/Consult. Vital Signs Temp Pulse Resp BP Pulse Ox 98.3 F 97 18 120/59 99 04/15/17 02:30 04/15/17 02:30 04/15/17 02:30 04/15/17 02:30 04/15/17 02:30 - General Posterior scalp with laceration and jessica in place well developed, no distress, no pain, obese - Eyes PERRL, normal ocular movement - Neck no masses, no bruits, trachea midline, no lymphadectomy - Respiratory normal respiratory effort - Cardiovascular Rhythm: regular Heart Sounds: normal: S1, S2 - Abdomen Abdomen: soft, non tender, bowel sounds, no guarding, no rigid, no distended - Genitourinary normal penis with no external lesions - Integumentary ecchymosis of posterior thigh on L and L gluteus - Neurologic normal coordination, normal sensation - Psychiatric oriented to time, oriented to person, oriented to place Results - Labs 04/16/17 05:38 04/15/17 03:21 Abnormal Lab Results - Last 24 Hours (Table) 04/15/17 04/15/17 04/15/17 Range/Units 03:21 03:21 03:21 RBC 2.24 L (4.30-5.90) m/uL Hgb 6.6 L* D (13.0-17.5) gm/dL Hct 21.3 L (39.0-53.0) % MCHC (31.0-37.0) g/dL RDW 15.6 H (11.5-15.5) % Plt Count 87 L (150-450) k/uL PT (9.0-12.0) sec INR (<1.2) Chloride 110 H (98-107) mmol/L BUN 53 H (9-20) mg/dL Creatinine 1.90 H (0.66-1.25) mg/dL Glucose 138 H (74-99) mg/dL POC Glucose (mg/dL) (75-99) mg/dL Calcium 8.3 L (8.4-10.2) mg/dL Total Protein 5.5 L (6.3-8.2) g/dL Albumin 3.3 L (3.5-5.0) g/dL Crossmatch See Detail 04/15/17 04/15/17 04/15/17 Range/Units 03:21 11:50 11:54 RBC 2.22 L (4.30-5.90) m/uL Hgb 6.8 L* (13.0-17.5) gm/dL Hct 22.0 L (39.0-53.0) % MCHC 30.8 L (31.0-37.0) g/dL RDW 16.2 H (11.5-15.5) % Plt Count 79 L (150-450) k/uL PT 12.8 H (9.0-12.0) sec INR 1.3 H (<1.2) Chloride (98-107) mmol/L BUN (9-20) mg/dL Creatinine (0.66-1.25) mg/dL Glucose (74-99) mg/dL POC Glucose (mg/dL) 120 H (75-99) mg/dL Calcium (8.4-10.2) mg/dL Total Protein (6.3-8.2) g/dL Albumin (3.5-5.0) g/dL Crossmatch 04/15/17 Range/Units 16:12 RBC (4.30-5.90) m/uL Hgb (13.0-17.5) gm/dL Hct (39.0-53.0) % MCHC (31.0-37.0) g/dL RDW (11.5-15.5) % Plt Count (150-450) k/uL PT (9.0-12.0) sec INR (<1.2) Chloride (98-107) mmol/L BUN (9-20) mg/dL Creatinine (0.66-1.25) mg/dL Glucose (74-99) mg/dL POC Glucose (mg/dL) 151 H (75-99) mg/dL Calcium (8.4-10.2) mg/dL Total Protein (6.3-8.2) g/dL Albumin (3.5-5.0) g/dL Crossmatch Diabetes panel 04/15/17 Range/Units 03:21 Sodium 142 (137-145) mmol/L Potassium 4.6 (3.5-5.1) mmol/L Chloride 110 H (98-107) mmol/L Carbon Dioxide 22 (22-30) mmol/L BUN 53 H (9-20) mg/dL Creatinine 1.90 H (0.66-1.25) mg/dL Glucose 138 H (74-99) mg/dL Calcium 8.3 L (8.4-10.2) mg/dL AST 20 (17-59) U/L ALT 26 (21-72) U/L Alkaline Phosphatase 47 (38-126) U/L Total Protein 5.5 L (6.3-8.2) g/dL Albumin 3.3 L (3.5-5.0) g/dL Calcium panel 04/15/17 Range/Units 03:21 Calcium 8.3 L (8.4-10.2) mg/dL Albumin 3.3 L (3.5-5.0) g/dL Pituitary panel 04/15/17 Range/Units 03:21 Sodium 142 (137-145) mmol/L Potassium 4.6 (3.5-5.1) mmol/L Chloride 110 H (98-107) mmol/L Carbon Dioxide 22 (22-30) mmol/L BUN 53 H (9-20) mg/dL Creatinine 1.90 H (0.66-1.25) mg/dL Glucose 138 H (74-99) mg/dL Calcium 8.3 L (8.4-10.2) mg/dL Adrenal panel 04/15/17 Range/Units 03:21 Sodium 142 (137-145) mmol/L Potassium 4.6 (3.5-5.1) mmol/L Chloride 110 H (98-107) mmol/L Carbon Dioxide 22 (22-30) mmol/L BUN 53 H (9-20) mg/dL Creatinine 1.90 H (0.66-1.25) mg/dL Glucose 138 H (74-99) mg/dL Calcium 8.3 L (8.4-10.2) mg/dL Total Bilirubin 0.6 (0.2-1.3) mg/dL AST 20 (17-59) U/L ALT 26 (21-72) U/L Alkaline Phosphatase 47 (38-126) U/L Total Protein 5.5 L (6.3-8.2) g/dL Albumin 3.3 L (3.5-5.0) g/dL - Imaging CT scan - abdomen: report reviewed, image reviewed CT scan - pelvis: report reviewed, image reviewed (Hematoma noted intramuscular gluteus) Assessment and Plan (1) Hematoma of left thigh Status: Acute Plan: 1 Acute blood loss anemia likely 2/2 to trauma on blood thinners. Will hold blood thinners and transfuse PRN and follow H/H q8h. 2 Follow Hemoccult to evaluate for GI bleed - Negative 3 Continue diet and IVF 4 A. fib with RVR: Med recs - metoprolol 12.5 BID 5 DVT proph with SCDs 6 Appreciate Med recs from Dr. Elam 7 PT/OT, will consider PMR once evaluated 8 Further recs to follow
[2017-04-15 20:45] LABS: Glucose,Whole Blood 144 mg/dL (75-99)
[2017-04-15 22:28] LABS: Anisocytosis Slight; Basophils % (A) 0 %; CH 30.9; CHCM 32.2; Eosinophils # (A) 0.1 k/uL (0-0.7); Eosinophils % (A) 1 %; HCT 24.3 % (39.0-53.0); HDW 3.03; HGB 7.6 gm/dL (13.0-17.5); Large Platelets Flag Marked; Luc # (Auto) 0.18; Luc % (Auto) 3; Lymphocytes # (A) 1.6 k/uL (1.0-4.8); Lymphocytes % (A) 24 %; MCH 30.2 pg (25.0-35.0); MCHC 31.2 g/dL (31.0-37.0); MCV 96.6 fL (80.0-100.0); Mean Platelet Volume 13.5; Monocytes # (A) 0.5 k/uL (0-1.0); Monocytes % (A) 8 %; Neutrophils # (A) 4.2 k/uL (1.3-7.7); Neutrophils % (A) 64 %; RBC 2.52 m/uL (4.30-5.90); RDW 16.5 % (11.5-15.5); WBC 6.5 k/uL (3.8-10.6); WBC (Perox) 6.89
[2017-04-16] MEDS: SODIUM CHLORIDE 0.9% 1,000 ML IV SCH (05:48)
[2017-04-16 05:55] LABS: Glucose,Whole Blood 136 mg/dL (75-99)
[2017-04-16 06:15] LABS: Basophils % (A) 0 %; CH 29.9; CHCM 32.1; Eosinophils # (A) 0.1 k/uL (0-0.7); Eosinophils % (A) 1 %; HCT 23.1 % (39.0-53.0); HDW 3.05; HGB 7.4 gm/dL (13.0-17.5); Large Platelets Flag Marked; Luc # (Auto) 0.16; Luc % (Auto) 2; Lymphocytes # (A) 1.3 k/uL (1.0-4.8); Lymphocytes % (A) 18 %; MCH 30.2 pg (25.0-35.0); MCHC 32.1 g/dL (31.0-37.0); MCV 93.9 fL (80.0-100.0); Monocytes # (A) 0.6 k/uL (0-1.0); Monocytes % (A) 8 %; Neutrophils # (A) 5.1 k/uL (1.3-7.7); Neutrophils % (A) 71 %; RBC 2.46 m/uL (4.30-5.90); RDW 15.8 % (11.5-15.5); WBC 7.2 k/uL (3.8-10.6); WBC (Perox) 8.04
[2017-04-16 07:33] LABS: Calcium 8.3 mg/dL (8.4-10.2); Potassium 4.3 mmol/L (3.5-5.1); Total Protein 5.1 g/dL (6.3-8.2)
[2017-04-16] MEDS: PANTOPRAZOLE 40 MG/10 ML VIAL IVP SCH (08:06)
[2017-04-16] MEDS: METOPROLOL TARTRATE 12.5 MG TAB PO SCH ×2 (08:06→21:48)
[2017-04-16] MEDS: FLUTICASONE 50MCG/SPRAY NASAL 16GM EA NOSTRIL SCH (08:06)
[2017-04-16] MEDS: LORATADINE 10 MG TAB PO SCH (08:06)
[2017-04-16] MEDS: SERTRALINE 50 MG TAB PO SCH (08:06)
[2017-04-16] MEDS: TAMSULOSIN 0.4 MG CAP.ER.24H PO SCH (08:06)
[2017-04-16] MEDS ORDERED: ASCORBIC ACID 500 MG TAB PO SCH (09:00)
--- NOTE | 2017-04-16 11:11 | CDI ---
see progress note In responding to this query, please exercise your independent professional judgment. The [facility] Coding Staff and Clinical Documentation Specialists appreciate your assistance in clarifying documentation, maintaining compliance with coding guidelines, accurately documenting patients condition and capturing severity of illness. The fact that a question is asked does not imply that any particular answer is desired or expected. Communication forms are a method of clarifying documentation and are not made part of the Legal Health Record. Thank you in advance for your clarification. Last Revision, June 2015 Noy Argueta [address] [facility] [address] [facility] [place] [address] Documentation Clarification Form Date: 04/16/2017 10:47:00 AM From: Ingrid Gonzalez Admit Date: 04/15/2017 6:07:00 AM Patient Name: Alen Swanson Visit Number: [id number] Discharge Date: Dr. 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 Treatment: Monitor Labs IV Fluids In order to capture the severity of condition, please clarify if the condition signifies: CKD Stage 1 (GFR > 90) CKD Stage 2 (GFR 60-89) CKD Stage 3 (GFR 30-59) CKD Stage 4 (GFR 15-29) CKD Stage 5 (GFR <15) ESRD Unable to determine Other condition, please specify Please document in your progress notes and discharge summary in order to capture severity of illness and risk of mortality. Include clinical findings that support your diagnosis. FYI: Press F11 to launch patient chart. MELISA
[2017-04-16 11:34] LABS: Glucose,Whole Blood 117 mg/dL (75-99)
[2017-04-16] MEDS: FERROUS SULFATE 325 MG TAB PO SCH (12:34)
[2017-04-16] MEDS: MULTIVITAMINS, THERA 1 EACH TAB PO SCH (12:34)
--- NOTE | 2017-04-16 13:10 | P.PN ---
Subjective 82-year-old male one of Dr. Hurd patient with past medical history of A. fib, brain tumor, COPD, DM, hypertension and chronic kidney disease who apparently fell twice yesterday in his bedroom the second time according to the noticed to have a syncope and syncope symptoms was fully awake at the time with the floor. Patient's ended up coming to the emergency department [facility] by EMS. Surprisingly found to have hemoglobin of 6.6 was symptomatic anemia causing the presyncope and syncopal symptoms. No visual bleed according to the . No further symptom of bright red blood per rectum or black stools no hematuria. Patient has been having low-grade anemia has been on iron supplement but never been that low. 04/16: Patient is status post transfusion of 2 units packed RBC. Hemoglobin last night was 7.6 and this morning at 7.4. Hemoccult blood negative. He remains on Protonix. Renal function is improving with a BUN of 44 and creatinine 1.5. PT and OT to evaluate patient. We are adding in a consult for Dr. Gutiérrez regarding atrial fibrillation. Patient remains off Xarelto. Objective - Vital Signs Vital signs: Vital Signs Temp 98.5 F 04/16/17 04:00 Pulse 86 04/16/17 04:00 Resp 18 04/16/17 04:00 BP 102/66 04/16/17 04:00 Pulse Ox 97 04/16/17 04:00 Intake & Output 04/15/17 04/16/17 04/16/17 18:59 06:59 18:59 Intake Total 1100 240 240 Output Total 1100 400 Balance 0 -160 240 Weight 94.7 kg Intake: Intake, IV Titration 240 Amount Sodium Chloride 0.9% 1, 240 000 ml @ 20 mls/hr IV . Q24H [facility] Rx#:[id number] Oral 480 240 Blood Product 620 Rc As-1 Unit 310 [id number] Rc As-1 Unit 310 [id number] Output: Urine 1100 400 Other: Voiding Method Urinal # Voids 1 1 - Exam General appearance: no average body habitus, cooperative, disheveled, no mild distress, no morbidly obese, no no acute distress, no obese, no severe distress , no thin - EENT Eyes: no abnormal pupil, no anicteric sclerae, no disc margins sharp, no edentulous, no EOMI, no PERRLA, no fundus normal, no photophobia, no dentition normal, no poor dentition, no ptosis, no scleral icterus, normal appearance ENT: hard of hearing, no hearing grossly normal, no NA/AT, normal oropharynx, no other, no pharyngeal erythema, no thrush, no tonsillar exudates, no tonsillar swelling Ears: bilateral: normal - Neck Neck: normal ROM Carotids: bilateral: upstroke normal Thyroid: bilateral: normal size - Respiratory Respiratory: bilateral: CTA, diminished, dullness - Cardiovascular Rhythm: regular Heart sounds: normal: S1, S2 Abnormal Heart Sounds: systolic murmur, S3 Gallop - Gastrointestinal General gastrointestinal: no absent bowel sounds, decreased bowel sounds, no distended, no hepatomegaly, no hyperactive bowel sounds, normal bowel sounds, no organomegaly, no rigid, no scaphoid, soft, no splenomegaly, no tenderness, no umbilical hernia, no ventral hernia - Integumentary Very large hematoma and bruise on the left thigh area extended for almost 15 inches below the hip level extended all the way to the back of the thigh as well. Integumentary: no calor, no cellulitis, no cyanotic, no decreased turgor, no flushed, no jaundiced, normal, no normal turgor, pale, rash, no ulcer - Neurologic Neurologic: CNII-XII intact - Musculoskeletal Musculoskeletal: gait normal, generalized weakness, strength equal bilaterally, no right sided weakness, no left sided weakness - Psychiatric Psychiatric: A&O x's 3, appropriate affect, no intact judgment & insight - Labs CBC & Chem 7: 04/16/17 05:38 04/16/17 05:38 Labs: Abnormal Lab Results - Last 24 Hours (Table) 04/15/17 04/15/17 04/15/17 Range/Units 03:21 11:50 11:54 RBC 2.22 L (4.30-5.90) m/uL Hgb 6.8 L* (13.0-17.5) gm/dL Hct 22.0 L (39.0-53.0) % MCHC 30.8 L (31.0-37.0) g/dL RDW 16.2 H (11.5-15.5) % Plt Count 79 L (150-450) k/uL Chloride (98-107) mmol/L BUN (9-20) mg/dL Creatinine (0.66-1.25) mg/dL Glucose (74-99) mg/dL POC Glucose (mg/dL) 120 H (75-99) mg/dL Calcium (8.4-10.2) mg/dL Total Protein (6.3-8.2) g/dL Albumin (3.5-5.0) g/dL Crossmatch See Detail 04/15/17 04/15/17 04/15/17 Range/Units 16:12 20:44 22:02 RBC 2.52 L (4.30-5.90) m/uL Hgb 7.6 L (13.0-17.5) gm/dL Hct 24.3 L (39.0-53.0) % MCHC (31.0-37.0) g/dL RDW 16.5 H (11.5-15.5) % Plt Count 80 L (150-450) k/uL Chloride (98-107) mmol/L BUN (9-20) mg/dL Creatinine (0.66-1.25) mg/dL Glucose (74-99) mg/dL POC Glucose (mg/dL) 151 H 144 H (75-99) mg/dL Calcium (8.4-10.2) mg/dL Total Protein (6.3-8.2) g/dL Albumin (3.5-5.0) g/dL Crossmatch 04/16/17 04/16/17 04/16/17 Range/Units 05:38 05:38 05:53 RBC 2.46 L (4.30-5.90) m/uL Hgb 7.4 L (13.0-17.5) gm/dL Hct 23.1 L (39.0-53.0) % MCHC (31.0-37.0) g/dL RDW 15.8 H (11.5-15.5) % Plt Count 85 L (150-450) k/uL Chloride 110 H (98-107) mmol/L BUN 44 H (9-20) mg/dL Creatinine 1.50 H (0.66-1.25) mg/dL Glucose 120 H (74-99) mg/dL POC Glucose (mg/dL) 136 H (75-99) mg/dL Calcium 8.3 L (8.4-10.2) mg/dL Total Protein 5.1 L (6.3-8.2) g/dL Albumin 2.9 L (3.5-5.0) g/dL Crossmatch Assessment and Plan Plan: 1 acute syncopal episode: Most likely secondary to acute blood loss anemia, patient be watch on heart monitor continue current testing with the A. fib if there is any other possibility for bradycardia or any other consistent symptoms should be found and treated. Xarelto is not hold. 2 acute blood loss anemia: Secondary to trauma while on blood thinners with large hematoma of the left thigh, other source of GI bleed such as gastric ulcer or colitis noted Hemoccult is negative, patient to continue on GI prophylaxis. Xarelto is on hold. Patient is status post 2 units packed RBCs. 3 acute kidney injury with chronic kidney disease stage III with baseline creatinine of 1.5: With worsening BUN/creatinine ratio continue mild hydration repeat BUN/creatinine daily. 4 A. fib with RVR with underlying chronic atrial fibrillation. Metoprolol 12.5 g twice a day has been added and Xarelto held for now. Consult with cardiology. 5 BPH: Patient still on Flomax 0.4 mg a day continue medication. 6 severe ALLERGY: Has been on loratadine 10 mg a day and nasal spray daily. 7 depression, recurrent: Has been on Zoloft 50 mg a day. 8 Mild hyperglycemia: Continue Accu-Chek with sliding scales coverage. 9 thrombocytopenia: Specially with the decrease in hemoglobin will watch it if further decline in both patient might require further hematology testing including bone marrow biopsy if needed especially if there is no consistent GI bleed with anemia. 10 GI prophylaxis: Patient will be on pantoprazole daily. 11 DVT prophylaxis: Knee-high JARRET hose and Venodyne boots. 12 CODE STATUS: No code. Discharge plan: PT and OT in place with recommendations for subacute rehab. Impression and plan of care have been directed as dictated by the signing physician. Cindy Tobias nurse practitioner acting as scribe for signing physician.po
[2017-04-16] MEDS: MORPHINE SULFATE 4 MG/ML SYRINGE IV PRN ×2 (13:44→16:55)
--- NOTE | 2017-04-16 14:14 | P.CRDCN ---
History of Present Illness Consult reason: sycope History of present illness: Patient admitted with syncope. Black stools him a acute anemia secondary to GI bleeding, underlying atrial fibrillation, anticoagulated with xarelto. Denies chest discomfort shortness of breath orthopnea PND lying comfortably in bed Review of systems: No fever chills or rigors, no cough, phlegm or expectoration , no nausea, vomiting or diarrhea, no hematuria, dysuria, no musculoskeletal complaints, no strokes or seizures, no skin lesions. Home medications were reviewed ALLERGIES reviewed none present Labs reviewed hemoglobin 7.6 him a BUN 44, creatinine 1.5, GFR 45 On examination heart sounds are normal breath sounds are normal abdomen is soft nontender extremities are warm no edema no JVD Blood pressure 112/58 mmHg afebrile 97.2, normal respirations pulse rate 92 Plan 2-D echo and Doppler study GI workup Hold anticoagulation for now Past Medical History Past Medical History: Atrial Fibrillation, Cancer, COPD, Diabetes Mellitus, Eye Disorder, Hearing Disorder / Deafness, Hypertension, Pneumonia, Prostate Disorder, Renal Disease Additional Past Medical History / Comment(s): 2009 Brain cancer with surgery and radiation, L nephrectomy d/t deteriorating kidney, BPH, anemia, diet controlled diabetes, generalized arthritis, 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 History of Any Multi-Drug Resistant Organisms: None Reported Additional Past Surgical History / Comment(s): L nephrectomy, brain tumor removal, bilateral cataract removals, colonoscopy. Past Anesthesia/Blood Transfusion Reactions: No Reported Reaction Smoking Status: Former smoker - Past Family History Father Family Medical History: No Reported History Additional Family Medical History / Comment(s): Father was healthy. He at the age of 62yrs in a MVA. Mother Additional Family Medical History / Comment(s): Mother at the age of 86yrs of "heart problems." Medications and Allergies Home Medications Medication Instructions Recorded Confirmed Type Ferrous Sulfate [Feosol] 650 mg PO DAILY 03/25/14 04/15/17 History Multivitamins, Thera [Multivitamin] 1 tab PO DAILY 03/25/14 04/15/17 History Rivaroxaban [Xarelto] 20 mg PO DAILY 03/25/14 04/15/17 History Tamsulosin [Flomax] 0.4 mg PO DAILY 03/25/14 04/15/17 History Ascorbic Acid [Vitamin C] 500 mg PO DAILY 11/21/16 04/15/17 History Ergocalciferol (Vitamin D2) 50,000 unit PO Q14D 11/21/16 04/15/17 History [Vitamin D2] Fluticasone Nasal [place] [Flonase 2 spr EA NOSTRIL DAILY 11/21/16 04/15/17 History Nasal [place]] Loratadine [Claritin] 10 mg PO DAILY 11/21/16 04/15/17 History Sertraline [Zoloft] 50 mg PO DAILY 11/21/16 04/15/17 History Allergies Allergy/AdvReac Type Severity Reaction Status Date / Time No Known Allergies Allergy Verified 04/15/17 08:05 Physical Exam Vitals: Vital Signs Temp Pulse Pulse Resp BP BP Pulse Ox 04/16/17 12:00 97.2 F L 92 18 112/58 95 04/16/17 08:00 96.9 F L 92 18 117/66 90 L 04/16/17 04:00 98.5 F 86 18 102/66 97 04/16/17 00:00 88 18 113/69 96 04/15/17 20:00 98.2 F 89 18 118/71 97 04/15/17 16:51 98.5 F 18 L 18 104/55 95 04/15/17 16:00 98.4 F 85 18 104/55 95 04/15/17 15:51 95 04/15/17 14:49 97.9 F 78 18 98/50 95 04/15/17 14:19 97.5 F L 80 18 103/57 96 Intake and Output 04/15/17 04/16/17 04/16/17 22:59 06:59 14:59 Intake Total 550 240 240 Output Total 500 400 Balance 50 -160 240 Intake: Intake, IV Titration 240 Amount Sodium Chloride 0.9% 1, 240 000 ml @ 20 mls/hr IV . Q24H [facility] Rx#:[id number] Oral 240 240 Blood Product 310 Rc As-1 Unit 310 [id number] Output: Urine 500 400 Other: Voiding Method Urinal Urinal # Voids 1 Weight 94.7 kg Results 04/16/17 05:38 04/16/17 05:38 Cardiac Enzymes 04/16/17 Range/Units 05:38 AST 25 (17-59) U/L CBC 04/15/17 04/16/17 Range/Units 22:02 05:38 WBC 6.5 7.2 (3.8-10.6) k/uL RBC 2.52 L 2.46 L (4.30-5.90) m/uL Hgb 7.6 L 7.4 L (13.0-17.5) gm/dL Hct 24.3 L 23.1 L (39.0-53.0) % Plt Count 80 L 85 L (150-450) k/uL Comprehensive Metabolic Panel 04/16/17 Range/Units 05:38 Sodium 140 (137-145) mmol/L Potassium 4.3 (3.5-5.1) mmol/L Chloride 110 H (98-107) mmol/L Carbon Dioxide 23 (22-30) mmol/L BUN 44 H (9-20) mg/dL Creatinine 1.50 H (0.66-1.25) mg/dL Glucose 120 H (74-99) mg/dL Calcium 8.3 L (8.4-10.2) mg/dL AST 25 (17-59) U/L ALT 32 (21-72) U/L Alkaline Phosphatase 43 (38-126) U/L Total Protein 5.1 L (6.3-8.2) g/dL Albumin 2.9 L (3.5-5.0) g/dL Current Medications Generic Name Dose Route Start Last Admin Trade Name Freq PRN Reason Stop Dose Admin Acetaminophen 650 mg 04/15/17 05:44 Tylenol Tab PO Q6HR PRN Mild Pain or Fever > 100.5 Ascorbic Acid 500 mg 04/16/17 09:00 04/16/17 08:06 Vitamin C PO 500 mg DAILY KEON Administration Ferrous Sulfate 650 mg 04/16/17 12:00 04/16/17 12:34 Feosol PO 650 mg DAILY@1200 KEON Administration Fluticasone Propionate 2 spray 04/15/17 10:45 04/16/17 08:06 Flonase Nasal [place] EA NOSTRIL 2 spray DAILY KEON Administration Sodium Chloride 1,000 mls @ 20 mls/hr 04/15/17 05:45 04/16/17 05:48 Saline 0.9% IV 20 mls/hr .Q24H [facility] Administration Loratadine 10 mg 04/16/17 09:00 04/16/17 08:06 Claritin PO 10 mg DAILY KEON Administration Metoprolol Tartrate 12.5 mg 04/15/17 11:00 04/16/17 08:06 Lopressor PO 12.5 mg BID KEON Administration Morphine Sulfate 4 mg 04/15/17 05:44 04/16/17 13:44 Morphine Sulfate (Inj) IV 4 mg Q4HR PRN Administration Severe Pain Multivitamins 1 each 04/15/17 12:00 04/16/17 12:34 Theragran PO 1 each DAILY@1200 KEON Administration Naloxone HCl 0.2 mg 04/15/17 05:37 Narcan IV Q2M PRN Opioid Reversal Ondansetron HCl 4 mg 04/15/17 05:44 Zofran IVP Q8HR PRN Nausea And Vomiting Pantoprazole Sodium 40 mg 04/15/17 13:30 04/16/17 08:06 Protonix IVP 40 mg DAILY KEON Administration Sertraline HCl 50 mg 04/15/17 11:00 04/16/17 08:06 Zoloft PO 50 mg DAILY [facility]ON Administration Tamsulosin HCl 0.4 mg 04/15/17 09:00 04/16/17 08:06 Flomax PO 0.4 mg DAILY [facility]ON Administration Tramadol HCl 50 mg 04/15/17 10:45 Ultram PO Q6H PRN Pain Intake and Output 04/15/17 04/16/17 04/16/17 22:59 06:59 14:59 Intake Total 550 240 240 Output Total 500 400 Balance 50 -160 240 Intake: Intake, IV Titration 240 Amount Sodium Chloride 0.9% 1, 240 000 ml @ 20 mls/hr IV . Q24H [facility] Rx#:[id number] Oral 240 240 Blood Product 310 Rc As-1 Unit 310 [id number] Output: Urine 500 400 Other: Voiding Method Urinal Urinal # Voids 1 Weight 94.7 kg 04/16/17 05:38 04/16/17 05:38
--- NOTE | 2017-04-16 15:36 | P.PN ---
Subjective Principal diagnosis: Intramuscular gluteal hematoma Pt seen and examined at bedside. He rested comfortably overnight. He states he has an appetite and was looking forward to breakfast. Denies any pain at this time. He denies any blood in stool. No additional complaints at this time. Objective - Vital Signs Vital signs: Vital Signs Temp 97.2 F L 04/16/17 12:00 Pulse 92 04/16/17 12:00 Resp 18 04/16/17 12:00 BP 112/58 04/16/17 12:00 Pulse Ox 95 04/16/17 12:00 Intake & Output 04/15/17 04/16/17 04/16/17 18:59 06:59 18:59 Intake Total 1100 240 740 Output Total 1100 400 375 Balance 0 -160 365 Weight 94.7 kg Intake: Intake, IV Titration 240 60 Amount Sodium Chloride 0.9% 1, 240 60 000 ml @ 20 mls/hr IV . Q24H [facility] Rx#:[id number] Oral 480 680 Blood Product 620 Rc As-1 Unit 310 [id number] Rc As-1 Unit 310 [id number] Output: Urine 1100 400 375 Other: Voiding Method Urinal Urinal # Voids 1 1 3 - Constitutional General appearance: Present: cooperative, no acute distress - Neck Neck: Present: normal ROM - Respiratory Details: no difficulty with respirations - Cardiovascular Rhythm: irregularly irregular - Gastrointestinal General gastrointestinal: Present: normal bowel sounds, soft. Absent: distended , rigid, tenderness - Integumentary Integumentary Comment(s): Ecchymosis onL gluteal and thigh posteriorly - Musculoskeletal Musculoskeletal: Present: generalized weakness - Psychiatric Psychiatric: Present: A&O x's 3 - Allied health notes Allied health notes reviewed: PT - Labs CBC & Chem 7: 04/16/17 05:38 04/16/17 05:38 Labs: Abnormal Lab Results - Last 24 Hours (Table) 04/15/17 04/15/17 04/15/17 Range/Units 03:21 16:12 20:44 RBC (4.30-5.90) m/uL Hgb (13.0-17.5) gm/dL Hct (39.0-53.0) % RDW (11.5-15.5) % Plt Count (150-450) k/uL Chloride (98-107) mmol/L BUN (9-20) mg/dL Creatinine (0.66-1.25) mg/dL Glucose (74-99) mg/dL POC Glucose (mg/dL) 151 H 144 H (75-99) mg/dL Calcium (8.4-10.2) mg/dL Total Protein (6.3-8.2) g/dL Albumin (3.5-5.0) g/dL Crossmatch See Detail 04/15/17 04/16/17 04/16/17 Range/Units 22:02 05:38 05:38 RBC 2.52 L 2.46 L (4.30-5.90) m/uL Hgb 7.6 L 7.4 L (13.0-17.5) gm/dL Hct 24.3 L 23.1 L (39.0-53.0) % RDW 16.5 H 15.8 H (11.5-15.5) % Plt Count 80 L 85 L (150-450) k/uL Chloride 110 H (98-107) mmol/L BUN 44 H (9-20) mg/dL Creatinine 1.50 H (0.66-1.25) mg/dL Glucose 120 H (74-99) mg/dL POC Glucose (mg/dL) (75-99) mg/dL Calcium 8.3 L (8.4-10.2) mg/dL Total Protein 5.1 L (6.3-8.2) g/dL Albumin 2.9 L (3.5-5.0) g/dL Crossmatch 04/16/17 04/16/17 Range/Units 05:53 11:31 RBC (4.30-5.90) m/uL Hgb (13.0-17.5) gm/dL Hct (39.0-53.0) % RDW (11.5-15.5) % Plt Count (150-450) k/uL Chloride (98-107) mmol/L BUN (9-20) mg/dL Creatinine (0.66-1.25) mg/dL Glucose (74-99) mg/dL POC Glucose (mg/dL) 136 H 117 H (75-99) mg/dL Calcium (8.4-10.2) mg/dL Total Protein (6.3-8.2) g/dL Albumin (3.5-5.0) g/dL Crossmatch Assessment and Plan (1) Hematoma of left thigh Status: Acute Plan: 1 Acute blood loss anemia likely 2/2 to trauma on blood thinners. Will hold blood thinners and transfuse PRN and follow H/H - Has remained stable in 7s. 2 Follow Hemoccult to evaluate for GI bleed - Negative 3 Continue diet and IVF 4 A. fib with RVR: Med recs - metoprolol 12.5 BID, cardiology consult appreciated 5 DVT proph with SCDs 6 Appreciate Med recs from Dr. Elam 7 PT/OT - recommend JAZMIN; to eval with social work - discussed with Dr. Elam 8 Further recs to follow
[2017-04-16 16:33] LABS: Glucose,Whole Blood 144 mg/dL (75-99)
[2017-04-16 20:49] LABS: Glucose,Whole Blood 179 mg/dL (75-99)
[2017-04-16] MEDS: traMADol 50 MG TAB PO PRN (21:56)
[2017-04-17] MEDS: SODIUM CHLORIDE 0.9% 1,000 ML IV SCH (03:11)
[2017-04-17 05:51] LABS: Glucose,Whole Blood 132 mg/dL (75-99)
[2017-04-17 06:26] LABS: Basophils % (A) 1 %; CH 29.8; CHCM 31.7; Eosinophils # (A) 0.1 k/uL (0-0.7); Eosinophils % (A) 2 %; HCT 22.9 % (39.0-53.0); HDW 2.86; HGB 7.5 gm/dL (13.0-17.5); Large Platelets Flag Marked; Luc # (Auto) 0.13; Luc % (Auto) 2; Lymphocytes # (A) 1.6 k/uL (1.0-4.8); Lymphocytes % (A) 30 %; MCH 30.8 pg (25.0-35.0); MCHC 32.6 g/dL (31.0-37.0); MCV 94.6 fL (80.0-100.0); Mean Platelet Volume 12.9; Monocytes # (A) 0.4 k/uL (0-1.0); Monocytes % (A) 8 %; Neutrophils # (A) 3.1 k/uL (1.3-7.7); Neutrophils % (A) 58 %; RBC 2.43 m/uL (4.30-5.90); WBC 5.4 k/uL (3.8-10.6); WBC (Perox) 5.85
[2017-04-17 06:39] LABS: Calcium 8.2 mg/dL (8.4-10.2); Potassium 4.4 mmol/L (3.5-5.1); Total Protein 5.1 g/dL (6.3-8.2)
[2017-04-17] MEDS: FLUTICASONE 50MCG/SPRAY NASAL 16GM EA NOSTRIL SCH (08:38)
[2017-04-17] MEDS: LORATADINE 10 MG TAB PO SCH (08:38)
[2017-04-17] MEDS: SERTRALINE 50 MG TAB PO SCH (08:39)
[2017-04-17] MEDS: PANTOPRAZOLE 40 MG/10 ML VIAL IVP SCH (08:39)
[2017-04-17] MEDS: TAMSULOSIN 0.4 MG CAP.ER.24H PO SCH (08:39)
[2017-04-17] MEDS: METOPROLOL TARTRATE 12.5 MG TAB PO SCH ×2 (08:39→20:12)
[2017-04-17] MEDS: MULTIVITAMINS, THERA 1 EACH TAB PO SCH (08:40)
[2017-04-17] MEDS: FERROUS SULFATE 325 MG TAB PO SCH (08:40)
[2017-04-17] MEDS: traMADol 50 MG TAB PO PRN (10:15)
[2017-04-17] MEDS ORDERED: FUROSEMIDE 10 MG/ML 2 ML VIAL IV ONE (11:39)
[2017-04-17] MEDS ORDERED: ASCORBIC ACID 500 MG TAB PO SCH (12:00)
[2017-04-17 12:23] LABS: Glucose,Whole Blood 144 mg/dL (75-99)
--- NOTE | 2017-04-17 13:28 | P.PN ---
Subjective 82-year-old male one of Dr. Hurd patient with past medical history of A. fib, brain tumor, COPD, DM, hypertension and chronic kidney disease who apparently fell twice yesterday in his bedroom the second time according to the noticed to have a syncope and syncope symptoms was fully awake at the time with the floor. Patient's ended up coming to the emergency department [facility] by EMS. Surprisingly found to have hemoglobin of 6.6 was symptomatic anemia causing the presyncope and syncopal symptoms. No visual bleed according to the . No further symptom of bright red blood per rectum or black stools no hematuria. Patient has been having low-grade anemia has been on iron supplement but never been that low. 04/16: Patient is status post transfusion of 2 units packed RBC. Hemoglobin last night was 7.6 and this morning at 7.4. Hemoccult blood negative. He remains on Protonix. Renal function is improving with a BUN of 44 and creatinine 1.5. PT and OT to evaluate patient. We are adding in a consult for Dr. Mills regarding atrial fibrillation. Patient remains off Xarelto. 04/17: Repeat hemoglobin today is at 7.5. BUN is 42 and creatinine 1.42. Patient has been seen by cardiology with plan for echocardiogram. Patient and his have met with social work for discharge planning for subacute rehab. He will be transfused 1 unit of packed RBCs today. He is complaining of left wrist pain for which x-ray has been ordered. Anticipate discharge to rehab tomorrow. Objective - Vital Signs Vital signs: Vital Signs Temp 97.1 F L 04/17/17 04:00 Pulse 87 04/17/17 04:00 Resp 18 04/17/17 04:00 BP 131/66 04/17/17 04:00 Pulse Ox 95 04/17/17 04:00 Intake & Output 04/16/17 04/17/17 04/17/17 18:59 06:59 18:59 Intake Total 740 200 Output Total 375 400 Balance 365 -200 Weight 94.8 kg Intake: Intake, IV Titration 60 Amount Sodium Chloride 0.9% 1, 60 000 ml @ 20 mls/hr IV . Q24H [facility] Rx#:[id number] Oral 680 200 Output: Urine 375 400 Other: Voiding Method Urinal Urinal Incontinent # Voids 3 1 - Exam General appearance: no average body habitus, cooperative, disheveled, no mild distress, no morbidly obese, no no acute distress, no obese, no severe distress , no thin - EENT Eyes: no abnormal pupil, no anicteric sclerae, no disc margins sharp, no edentulous, no EOMI, no PERRLA, no fundus normal, no photophobia, no dentition normal, no poor dentition, no ptosis, no scleral icterus, normal appearance ENT: hard of hearing, no hearing grossly normal, no NA/AT, normal oropharynx, no other, no pharyngeal erythema, no thrush, no tonsillar exudates, no tonsillar swelling Ears: bilateral: normal - Neck Neck: normal ROM Carotids: bilateral: upstroke normal Thyroid: bilateral: normal size - Respiratory Respiratory: bilateral: CTA, diminished, dullness - Cardiovascular Rhythm: regular Heart sounds: normal: S1, S2 Abnormal Heart Sounds: systolic murmur, S3 Gallop - Gastrointestinal General gastrointestinal: no absent bowel sounds, decreased bowel sounds, no distended, no hepatomegaly, no hyperactive bowel sounds, normal bowel sounds, no organomegaly, no rigid, no scaphoid, soft, no splenomegaly, no tenderness, no umbilical hernia, no ventral hernia - Integumentary Very large hematoma and bruise on the left thigh area extended for almost 15 inches below the hip level extended all the way to the back of the thigh as well. Integumentary: no calor, no cellulitis, no cyanotic, no decreased turgor, no flushed, no jaundiced, normal, no normal turgor, pale, rash, no ulcer - Neurologic Neurologic: CNII-XII intact - Musculoskeletal Musculoskeletal: gait normal, generalized weakness, strength equal bilaterally, no right sided weakness, no left sided weakness - Psychiatric Psychiatric: A&O x's 3, appropriate affect, no intact judgment & insight - Labs CBC & Chem 7: 04/17/17 05:58 04/17/17 05:58 Labs: Abnormal Lab Results - Last 24 Hours (Table) 04/16/17 04/16/17 04/16/17 Range/Units 11:31 16:31 20:48 RBC (4.30-5.90) m/uL Hgb (13.0-17.5) gm/dL Hct (39.0-53.0) % RDW (11.5-15.5) % Plt Count (150-450) k/uL Chloride (98-107) mmol/L BUN (9-20) mg/dL Creatinine (0.66-1.25) mg/dL Glucose (74-99) mg/dL POC Glucose (mg/dL) 117 H 144 H 179 H (75-99) mg/dL Calcium (8.4-10.2) mg/dL Total Protein (6.3-8.2) g/dL Albumin (3.5-5.0) g/dL 04/17/17 04/17/17 04/17/17 Range/Units 05:50 05:58 05:58 RBC 2.43 L (4.30-5.90) m/uL Hgb 7.5 L (13.0-17.5) gm/dL Hct 22.9 L (39.0-53.0) % RDW 16.0 H (11.5-15.5) % Plt Count 82 L (150-450) k/uL Chloride 110 H (98-107) mmol/L BUN 42 H (9-20) mg/dL Creatinine 1.42 H (0.66-1.25) mg/dL Glucose 113 H (74-99) mg/dL POC Glucose (mg/dL) 132 H (75-99) mg/dL Calcium 8.2 L (8.4-10.2) mg/dL Total Protein 5.1 L (6.3-8.2) g/dL Albumin 2.9 L (3.5-5.0) g/dL Assessment and Plan Plan: 1 acute syncopal episode: Most likely secondary to acute blood loss anemia, patient be watch on heart monitor continue current testing with the A. fib if there is any other possibility for bradycardia or any other consistent symptoms should be found and treated. Xarelto is not hold. 2 acute blood loss anemia: Secondary to trauma while on blood thinners with large hematoma of the left thigh, other source of GI bleed such as gastric ulcer or colitis noted Hemoccult is negative, patient to continue on GI prophylaxis. Xarelto is on hold. Patient is status post 2 units packed RBCs. 3 acute kidney injury with chronic kidney disease stage III with baseline creatinine of 1.5: With worsening BUN/creatinine ratio continue mild hydration repeat BUN/creatinine daily. 4 A. fib with RVR with underlying chronic atrial fibrillation. Metoprolol 12.5 g twice a day has been added and Xarelto held for now. Consult with cardiology. 5 BPH: Patient still on Flomax 0.4 mg a day continue medication. 6 severe ALLERGY: Has been on loratadine 10 mg a day and nasal spray daily. 7 depression, recurrent: Has been on Zoloft 50 mg a day. 8 Mild hyperglycemia: Continue Accu-Chek with sliding scales coverage. 9 thrombocytopenia: Specially with the decrease in hemoglobin will watch it if further decline in both patient might require further hematology testing including bone marrow biopsy if needed especially if there is no consistent GI bleed with anemia. 10 GI prophylaxis: Patient will be on pantoprazole daily. 11 DVT prophylaxis: Knee-high JARRET hose and Venodyne boots. 12 are x-ray ordered. CODE STATUS: No code. Discharge plan: subacute rehab tomorrow. Social work is following. Impression and plan of care have been directed as dictated by the signing physician. Cindy Tobias nurse practitioner acting as scribe for signing physician.po
--- NOTE | 2017-04-17 13:47 | P.PN ---
Subjective Principal diagnosis: Anemia This is an 82-year-old gentleman with history of atrial fibrillation, COPD, diabetes, hypertension, chronic kidney disease, brain tumor, who presented to the hospital after experiencing a syncopal episode. Patient was found to have a hemoglobin of 6.6. Patient apparently had no visual bleeding, no blood in his stool or black stool. Patient has been known to have low-grade anemia and had been on iron supplementation in the past. Patient is status post transfusion of 2 units of packed red blood cell. And is scheduled to receive one unit today. Hemoglobin is 7.5 today, platelet count 82, BUN 42, creatinine 1.4. Blood pressure 115/60 heart rate in 60s. It is felt the patient's acute blood loss anemia secondary to trauma while on blood thinners with large hematoma to the left thigh. Objective - Vital Signs Vital signs: Vital Signs Temp 97.4 F L 04/17/17 08:00 Pulse 69 04/17/17 11:18 Resp 18 04/17/17 11:18 BP 115/64 04/17/17 11:18 Pulse Ox 96 04/17/17 11:18 Intake & Output 04/16/17 04/17/17 04/17/17 18:59 06:59 18:59 Intake Total 740 200 210 Output Total 375 400 Balance 365 -200 210 Weight 94.8 kg Intake: Intake, IV Titration 60 Amount Sodium Chloride 0.9% 1, 60 000 ml @ 20 mls/hr IV . Q24H [facility] Rx#:[id number] Oral 680 200 210 Output: Urine 375 400 Other: Voiding Method Urinal Urinal Urinal Incontinent Incontinent # Voids 3 1 1 - Exam PHYSICAL EXAMINATION: HEENT: Head is atraumatic, normocephalic. Pupils equal, round. Neck is supple. There is no elevated jugular venous pressure. HEART EXAMINATION: R S1 and S2 systolic murmur is heard CHEST EXAMINATION: Lungs are clear with diminished air entry to bilateral bases. ABDOMEN: Soft, nontender. Bowel sounds are heard. No organomegaly noted. EXTREMITIES: 2+ peripheral pulses with no evidence of peripheral edema and no calf tenderness noted. NEUROLOGIC patient is awake, alert and oriented -3. . - Labs CBC & Chem 7: 04/17/17 05:58 04/17/17 05:58 Labs: Abnormal Lab Results - Last 24 Hours (Table) 04/15/17 04/16/17 04/16/17 Range/Units 03:21 16:31 20:48 RBC (4.30-5.90) m/uL Hgb (13.0-17.5) gm/dL Hct (39.0-53.0) % RDW (11.5-15.5) % Plt Count (150-450) k/uL Chloride (98-107) mmol/L BUN (9-20) mg/dL Creatinine (0.66-1.25) mg/dL Glucose (74-99) mg/dL POC Glucose (mg/dL) 144 H 179 H (75-99) mg/dL Calcium (8.4-10.2) mg/dL Total Protein (6.3-8.2) g/dL Albumin (3.5-5.0) g/dL Crossmatch See Detail 04/17/17 04/17/17 04/17/17 Range/Units 05:50 05:58 05:58 RBC 2.43 L (4.30-5.90) m/uL Hgb 7.5 L (13.0-17.5) gm/dL Hct 22.9 L (39.0-53.0) % RDW 16.0 H (11.5-15.5) % Plt Count 82 L (150-450) k/uL Chloride 110 H (98-107) mmol/L BUN 42 H (9-20) mg/dL Creatinine 1.42 H (0.66-1.25) mg/dL Glucose 113 H (74-99) mg/dL POC Glucose (mg/dL) 132 H (75-99) mg/dL Calcium 8.2 L (8.4-10.2) mg/dL Total Protein 5.1 L (6.3-8.2) g/dL Albumin 2.9 L (3.5-5.0) g/dL Crossmatch 04/17/17 Range/Units 12:21 RBC (4.30-5.90) m/uL Hgb (13.0-17.5) gm/dL Hct (39.0-53.0) % RDW (11.5-15.5) % Plt Count (150-450) k/uL Chloride (98-107) mmol/L BUN (9-20) mg/dL Creatinine (0.66-1.25) mg/dL Glucose (74-99) mg/dL POC Glucose (mg/dL) 144 H (75-99) mg/dL Calcium (8.4-10.2) mg/dL Total Protein (6.3-8.2) g/dL Albumin (3.5-5.0) g/dL Crossmatch Assessment and Plan Plan: Assessment and plan 1 acute syncopal episode: Most likely secondary to acute blood loss anemia, patient be watch on heart monitor continue current testing with the A. fib if there is any other possibility for bradycardia or any other consistent symptoms should be found and treated. Xarelto is not hold. 2 acute blood loss anemia: Secondary to trauma while on blood thinners with large hematoma of the left thigh, other source of GI bleed such as gastric ulcer or colitis noted Hemoccult is negative, patient to continue on GI prophylaxis. Xarelto is on hold. Patient is status post 2 units packed RBCs. 3 acute kidney injury with chronic kidney disease stage III with baseline creatinine of 1.5: With worsening BUN/creatinine ratio continue mild hydration repeat BUN/creatinine daily. 4 A. fib with RVR with underlying chronic atrial fibrillation. Metoprolol 12.5 g twice a day has been added and Xarelto held for now. Consult with cardiology. 5 BPH: Patient still on Flomax 0.4 mg a day continue medication. 6 severe ALLERGY: Has been on loratadine 10 mg a day and nasal spray daily. 7 depression, recurrent: Has been on Zoloft 50 mg a day. 8 Mild hyperglycemia: Continue Accu-Chek with sliding scales coverage. 9 thrombocytopenia: Specially with the decrease in hemoglobin will watch it if further decline in both patient might require further hematology testing including bone marrow biopsy if needed especially if there is no consistent GI bleed with anemia. From cardiology's perspective, we will continue to hold anticoagulation. Review echocardiogram with Doppler study.
--- NOTE | 2017-04-17 16:48 | CDI ---
In responding to this query, please exercise your independent professional judgment. The [facility] Coding Staff and Clinical Documentation Specialists appreciate your assistance in clarifying documentation, maintaining compliance with coding guidelines, accurately documenting patients condition and capturing severity of illness. The fact that a question is asked does not imply that any particular answer is desired or expected. Communication forms are a method of clarifying documentation and are not made part of the Legal Health Record. Thank you in advance for your clarification. Last Revision, June 2015 Noysusan Argueta [address] [facility] [place] [address] Documentation Clarification Form Date: 04/17/2017 4:30:00 PM From: Ingrid Calros Admit Date: 04/15/2017 6:07:00 AM Patient Name: Alen Swanson Visit Number: [id number] Discharge Date: Dr. Kushal lEam/Cindy Tobias LEARNING SERVICES COORDINATOR-C The patient has diabetes, as indicated in progress note: Clinical Indicators: Past medical history has diet controlled diabetes. Reports: excessive thrust, fatigue, heat intolerance, nocturia and polyuria, Treatment: Monitor blood sugar ACHS Heart Healthy Diet In order to capture the severity of Illness and necessary documentation specificity, please clarify: DM Type 1 DM Type 2 DM due to underlying condition, specify (e.g. Cushings syndrome) Drug/chemical induced DM (document the drug/chemical) Gestational DM Unable to Determine Other Condition Please document any body system complications or specific manifestations related to the diabetes: Diabetic Nephropathy Diabetic Autonomic Neuropathy Hypoglycemia with or without coma Hyperglycemia Please document in your progress notes and discharge summary in order to capture severity of illness and risk of mortality. Include clinical findings that support your diagnosis. FYI: Press F11 to launch patient chart. MTDD
--- NOTE | 2017-04-17 16:52 | P.PN ---
Subjective Principal diagnosis: Intramuscular gluteal hematoma Pt seen and examined at bedside. He rested comfortably overnight. Continues to deny any pain at this time. He denies any blood in stool. No additional complaints at this time. Objective - Vital Signs Vital signs: Vital Signs Temp 97.4 F L 04/17/17 16:38 Pulse 72 04/17/17 16:38 Resp 16 04/17/17 16:38 BP 109/65 04/17/17 16:38 Pulse Ox 94 L 04/17/17 16:38 Intake & Output 04/16/17 04/17/17 04/17/17 18:59 06:59 18:59 Intake Total 740 200 210 Output Total 375 400 602 Balance 365 -200 -392 Weight 94.8 kg Intake: Intake, IV Titration 60 Amount Sodium Chloride 0.9% 1, 60 000 ml @ 20 mls/hr IV . Q24H [facility] Rx#:[id number] Oral 680 200 210 Blood Product 0 Rc As-1 Unit 0 [id number] Output: Urine 375 400 600 Stool 2 Other: Voiding Method Urinal Urinal Urinal Incontinent Incontinent # Voids 3 1 1 - Constitutional General appearance: Present: cooperative, no acute distress - EENT Eyes: Present: EOMI, PERRLA ENT: Present: hearing grossly normal - Neck Neck: Present: normal ROM. Absent: lymphadenopathy - Respiratory Details: No difficulty with respiration - Cardiovascular Rhythm: regular Heart sounds: normal: S1, S2 - Gastrointestinal General gastrointestinal: Present: normal bowel sounds, soft. Absent: distended , rigid, tenderness - Musculoskeletal Musculoskeletal: Present: generalized weakness - Psychiatric Psychiatric: Present: A&O x's 3 - Labs CBC & Chem 7: 04/17/17 05:58 04/17/17 05:58 Labs: Abnormal Lab Results - Last 24 Hours (Table) 04/15/17 04/16/17 04/17/17 Range/Units 03:21 20:48 05:50 RBC (4.30-5.90) m/uL Hgb (13.0-17.5) gm/dL Hct (39.0-53.0) % RDW (11.5-15.5) % Plt Count (150-450) k/uL Chloride (98-107) mmol/L BUN (9-20) mg/dL Creatinine (0.66-1.25) mg/dL Glucose (74-99) mg/dL POC Glucose (mg/dL) 179 H 132 H (75-99) mg/dL Calcium (8.4-10.2) mg/dL Total Protein (6.3-8.2) g/dL Albumin (3.5-5.0) g/dL Crossmatch See Detail 04/17/17 04/17/17 04/17/17 Range/Units 05:58 05:58 12:21 RBC 2.43 L (4.30-5.90) m/uL Hgb 7.5 L (13.0-17.5) gm/dL Hct 22.9 L (39.0-53.0) % RDW 16.0 H (11.5-15.5) % Plt Count 82 L (150-450) k/uL Chloride 110 H (98-107) mmol/L BUN 42 H (9-20) mg/dL Creatinine 1.42 H (0.66-1.25) mg/dL Glucose 113 H (74-99) mg/dL POC Glucose (mg/dL) 144 H (75-99) mg/dL Calcium 8.2 L (8.4-10.2) mg/dL Total Protein 5.1 L (6.3-8.2) g/dL Albumin 2.9 L (3.5-5.0) g/dL Crossmatch Assessment and Plan (1) Hematoma of left thigh Status: Acute Plan: 1 Acute blood loss anemia likely 2/2 to trauma on blood thinners. Will hold blood thinners and transfuse PRN and follow H/H - Has remained stable in 7s. 2 Follow Hemoccult to evaluate for GI bleed - Negative 3 Continue diet and IVF 4 A. fib with RVR: Med recs - metoprolol 12.5 BID, cardiology consult appreciated 5 DVT proph with SCDs 6 PT/OT - recommend JAZMIN; to eval with social work - discussed with Dr. Elam 7 WIll transfer care to Dr. Elam at this time for medical management. Surgically stable. Will continue to follow.
[2017-04-17 17:13] LABS: Glucose,Whole Blood 134 mg/dL (75-99)
[2017-04-17 20:25] LABS: Glucose,Whole Blood 144 mg/dL (75-99)
[2017-04-18] MEDS ORDERED: PANTOPRAZOLE 40 MG TABLET PO SCH (07:30)
[2017-04-18 07:48] VITALS: BP 114/63; RESP 19; TEMP 97.9
[2017-04-18 07:52] LABS: Glucose,Whole Blood 126 mg/dL (75-99)
[2017-04-18 07:59] LABS: Anisocytosis Slight; CH 31.1; CHCM 32.4; HCT 24.9 % (39.0-53.0); HDW 2.95; HGB 8.1 gm/dL (13.0-17.5); Large Platelets Flag Marked; MCH 31.6 pg (25.0-35.0); MCHC 32.6 g/dL (31.0-37.0); MCV 96.9 fL (80.0-100.0); Macrocytosis Slight; Mean Platelet Volume 13.5; RBC 2.57 m/uL (4.30-5.90); RDW 16.5 % (11.5-15.5); WBC 5.9 k/uL (3.8-10.6)
[2017-04-18] MEDS: LORATADINE 10 MG TAB PO SCH (08:22)
[2017-04-18] MEDS: METOPROLOL TARTRATE 12.5 MG TAB PO SCH (08:23)
[2017-04-18] MEDS: TAMSULOSIN 0.4 MG CAP.ER.24H PO SCH (08:24)
[2017-04-18] MEDS: SERTRALINE 50 MG TAB PO SCH (08:24)
[2017-04-18 08:33] LABS: Potassium 4.3 mmol/L (3.5-5.1)
--- NOTE | 2017-04-18 08:45 | P.DS ---
Providers Date of admission: 04/15/17 06:07 Expected date of discharge: 04/18/17 Attending physician: Kushal Elam Consults: 04/15/17 05:38 Consult Physician Urgent Consulting Provider: Kushal Elam Consult Reason/Comments: Medical management Do you want consulting provider notified?: Yes, Notify in am 04/15/17 10:47 Consult Physician Routine Consulting Provider: Eliceo Mills Consult Reason/Comments: afib, off xarelto Do you want consulting provider notified?: Yes 04/16/17 10:30 Consult Physician Routine Consulting Provider: Eliceo Mills Consult Reason/Comments: afib, off xarelto for hematoma Do you want consulting provider notified?: Yes Primary care physician: Darvin Hurd [place] Course: 82-year-old male one of Dr. Hurd patient with past medical history of A. fib, brain tumor, COPD, hypertension and chronic kidney disease who apparently fell twice yesterday in his bedroom the second time according to the noticed to have a syncope and syncope symptoms was fully awake at the time with the floor. Patient's ended up coming to the emergency department [facility] by EMS. Surprisingly found to have hemoglobin of 6.6 was symptomatic anemia causing the presyncope and syncopal symptoms. No visual bleed according to the . No further symptom of bright red blood per rectum or black stools no hematuria. Patient has been having low-grade anemia has been on iron supplement but never been that low. 04/16: Patient is status post transfusion of 2 units packed RBC. Hemoglobin last night was 7.6 and this morning at 7.4. Hemoccult blood negative. He remains on Protonix. Renal function is improving with a BUN of 44 and creatinine 1.5. PT and OT to evaluate patient. We are adding in a consult for Dr. Mills regarding atrial fibrillation. Patient remains off Xarelto. 04/17: Repeat hemoglobin today is at 7.5. BUN is 42 and creatinine 1.42. Patient has been seen by cardiology with plan for echocardiogram. Patient and his have met with social work for discharge planning for subacute rehab. He will be transfused 1 unit of packed RBCs today. He is complaining of left wrist pain for which x-ray has been ordered. Anticipate discharge to rehab tomorrow. 04/18: Patient received a third unit of packed RBCs yesterday with hemoglobin about 8.1. BUN 41 and creatinine 1.56. Heart rate is running 75-90. monitor technician remains atrial fibrillation. Patient is continued off Xarelto. We will plan that Xarelto may be resumed on Friday, April 23. Monitor for any further bleeding. Lab work will be ordered twice weekly for 2 weeks. Patient will be discharged today in stable condition. Discharge diagnoses: 1 acute syncopal episode: Most likely secondary to acute blood loss anemia 2 acute blood loss anemia: Secondary to trauma while on blood thinners with large hematoma of the left thigh 3 acute kidney injury with chronic kidney disease stage III with baseline creatinine of 1.5 4 A. fib with RVR with underlying chronic atrial fibrillation 5 BPH 6 severe ALLERGY 7 depression, recurrent 8 Mild hyperglycemia without diagnosis of diabetes 9 thrombocytopenia [facility] [place] [facility] the care of Dr. Cazares Impression and plan of care have been directed as dictated by the signing physician. Cindy Tobias nurse practitioner acting as scribe for signing physician. Patient Condition at Discharge: Good Plan - Discharge Summary New Discharge Prescriptions: New Metoprolol Tartrate [Lopressor] 12.5 mg PO BID #0 tab Continue Tamsulosin [Flomax] 0.4 mg PO DAILY Multivitamins, Thera [Multivitamin (formulary)] 1 tab PO DAILY Ferrous Sulfate [Feosol] 650 mg PO DAILY Fluticasone Nasal Bailey [Flonase Nasal Bailey] 2 spr EA NOSTRIL DAILY Ergocalciferol (Vitamin D2) [Vitamin D2] 50,000 unit PO Q14D Sertraline [Zoloft] 50 mg PO DAILY Loratadine [Claritin] 10 mg PO DAILY Ascorbic Acid [Vitamin C] 500 mg PO DAILY Rivaroxaban [Xarelto] 20 mg PO DAILY #0 traMADol HCl [Ultram] 50 mg PO Q6H PRN #60 tab PRN Reason: Pain Discharge Medication List Ferrous Sulfate [Feosol] 650 mg PO DAILY 03/25/14 [History] Multivitamins, Thera [Multivitamin (formulary)] 1 tab PO DAILY 03/25/14 [History ] Tamsulosin [Flomax] 0.4 mg PO DAILY 03/25/14 [History] Ascorbic Acid [Vitamin C] 500 mg PO DAILY 11/21/16 [History] Ergocalciferol (Vitamin D2) [Vitamin D2] 50,000 unit PO Q14D 11/21/16 [History] Fluticasone Nasal Bailey [Flonase Nasal Bailey] 2 spr EA NOSTRIL DAILY 11/21/16 [ History] Loratadine [Claritin] 10 mg PO DAILY 11/21/16 [History] Sertraline [Zoloft] 50 mg PO DAILY 11/21/16 [History] Metoprolol Tartrate [Lopressor] 12.5 mg PO BID #0 tab 04/18/17 [Rx] Rivaroxaban [Xarelto] 20 mg PO DAILY #0 04/18/17 [Rx] traMADol HCl [Ultram] 50 mg PO Q6H PRN #60 tab 04/18/17 [Rx] Follow up Appointment(s)/Referral(s): Darvin Hurd DO [Primary Care Provider] - 1 Week (after discharge from F ) Ambulatory/Diagnostic Orders: Complete Blood Count w/diff [LAB.AMB] Location: Determined By Patient Complete Blood Count w/diff [LAB.AMB] Location: Determined By Patient Comprehensive Metabolic Panel [LAB.AMB] Location: Determined By Patient Discharge Disposition: TRANSFER TO SNF/ECF
[2017-04-18 09:43] VITALS: PULSE 84
[2017-04-18 12:12] LABS: Glucose,Whole Blood 129 mg/dL (75-99)
== END 2017-04-18 12:55 | DRG 812 ==
LOC: EC 02:27 → 6SEL 06:07 → 5MS5E 04-17 22:02
PROVIDERS: ADMIT Internal Medicine Geriatric Medicine; ATTEND Internal Medicine Geriatric Medicine
PROC: 0HQ0XZZ Repair Scalp Skin, External Approach (ICD-10-PCS; principal; 2017-04-15)
PROC: 3E0234Z Introduction of Serum, Toxoid and Vaccine into Muscle, Percutaneous Approach (ICD-10-PCS; 2017-04-15)
PROC: 30233N1 Transfusion of Nonautologous Red Blood Cells into Peripheral Vein, Percutaneous Approach (ICD-10-PCS; 2017-04-15)
DX: D62 Acute posthemorrhagic anemia (principal); N17.9 Acute kidney failure, unspecified; D69.6 Thrombocytopenia, unspecified; J44.9 Chronic obstructive pulmonary disease, unspecified; I48.2 Chronic atrial fibrillation; N18.3 Chronic kidney disease, stage 3 (moderate); F33.9 Major depressive disorder, recurrent, unspecified; I12.9 Hypertensive chronic kidney disease with stage 1 through stage 4 chronic kidney disease, or unspecified chronic kidney disease; S01.01XA Laceration without foreign body of scalp, initial encounter; H54.41 Blindness, right eye, normal vision left eye; S70.12XA Contusion of left thigh, initial encounter; S61.412A Laceration without foreign body of left hand, initial encounter; R73.9 Hyperglycemia, unspecified; M25.532 Pain in left wrist; R55 Syncope and collapse; H91.91 Unspecified hearing loss, right ear; H91.92 Unspecified hearing loss, left ear; N40.1 Benign prostatic hyperplasia with lower urinary tract symptoms; N39.498 Other specified urinary incontinence; J30.9 Allergic rhinitis, unspecified; R29.6 Repeated falls; G89.29 Other chronic pain; R53.1 Weakness; T45.515A Adverse effect of anticoagulants, initial encounter; M13.0 Polyarthritis, unspecified; Z86.69 Personal history of other diseases of the nervous system and sense organs; Z85.841 Personal history of malignant neoplasm of brain; Z87.891 Personal history of nicotine dependence; Z79.51 Long term (current) use of inhaled steroids; Z23 Encounter for immunization; Z79.899 Other long term (current) drug therapy; Z79.01 Long term (current) use of anticoagulants; Z98.42 Cataract extraction status, left eye; Z98.41 Cataract extraction status, right eye; Z82.49 Family history of ischemic heart disease and other diseases of the circulatory system; Z90.5 Acquired absence of kidney; Z92.3 Personal history of irradiation; Z86.39 Personal history of other endocrine, nutritional and metabolic disease; Z87.01 Personal history of pneumonia (recurrent); Z91.81 History of falling; Z86.2 Personal history of diseases of the blood and blood-forming organs and certain disorders involving the immune mechanism; W19.XXXA Unspecified fall, initial encounter; Y92.003 Bedroom of unspecified non-institutional (private) residence as the place of occurrence of the external cause
CPT/HCPCS: 12002; 36415; 70450; 71010; 72125; 72170; 74176; 80048; 80053; 81003; 82272; 83605; 84484; 85025; 85027; 85610; 85730; 86850; 86900; 86901; 86920; 90471; 90715; 93005; 94760; 96361; 96374; 99291

== ENCOUNTER → 2018-01-22 | Outpatient (CLI) | payer MEDICARE ==
--- NOTE | 2018-01-22 14:31 | US ---
EXAMINATION TYPE: US kidneys/renal and bladder DATE OF EXAM: 01/22/2018 COMPARISON: CT CLINICAL HISTORY: N18.3 chronic kidney disease stage 3. Chronic kidney disease, pt states left kidney removed many years ago () EXAM MEASUREMENTS: Right Kidney: 11.9 x 6.2 x 6.1 cm Right Kidney: No evidence of hydro, possible calculi mid= 0.5 cm Left Kidney: Surgically absent Bladder: Possible bladder wall diverticula posterior wall. Diffuse urinary bladder wall trabeculation . Bilateral Jets seen: No Hyperechoic lesion inferior spleen= 0.8 x 0.9 x 0.8 cm There is no evidence for hydronephrosis at this point in time. The urinary bladder is anechoic. IMPRESSION: 1. No evidence of hydronephrosis. 5 mm nonshadowing hyperechoic focus is seen within the right mid ki dney and could relate to a nonshadowing calculus or angiomyolipoma. 2. Trabeculation of the urinary bladder wall and possible urinary bladder diverticula. Findings sugge st urinary bladder outlet obstruction. 3. Incidentally noted splenomegaly. 9 mm hyperechoic splenic lesion could relate to a hemangioma or l ymphangioma. Full characterization with dynamic three-phase enhanced CT abdomen could be performed.
== END | disposition home or self-care (01) ==
LOC: RADUSWWP 13:27
PROVIDERS: ATTEND Internal Medicine Nephrology
DX: N32.89 Other specified disorders of bladder (principal); R16.1 Splenomegaly, not elsewhere classified; D73.89 Other diseases of spleen; R93.421 Abnormal radiologic findings on diagnostic imaging of right kidney; N18.3 Chronic kidney disease, stage 3 (moderate)
CPT/HCPCS: 76770

== ENCOUNTER → 2018-02-04 | Outpatient (CLI) | payer MEDICARE ==
[2018-02-04 13:25] LABS: Albumin 3.8 g/dL (3.5-5.0); Calcium 8.9 mg/dL (8.4-10.2); Potassium 4.7 mmol/L (3.5-5.1); Total Bilirubin 0.3 mg/dL (0.2-1.3); Total Protein 5.9 g/dL (6.3-8.2)
== END | disposition home or self-care (01) ==
LOC: LABWHC1 11:55
PROVIDERS: ATTEND Nurse Practitioner Family
DX: N18.3 Chronic kidney disease, stage 3 (moderate) (principal)
CPT/HCPCS: 36415; 80053

== ENCOUNTER 2018-06-07 09:02 | Emergency (ER) | payer MEDICARE ==
[2018-06-07 09:16] VITALS: RESP 18
--- NOTE | 2018-06-07 09:25 | ED ---
Extremity Problem HPI - General Chief complaint: Extremity Problem,Nontraumatic Stated complaint: R knee pain Time Seen by Provider: 06/07/18 09:11 Source: patient, family, RN notes reviewed Mode of arrival: ambulatory Limitations: physical limitation - History of Present Illness Initial comments: 83-year-old male presents emergency Department chief complaint of right knee times one week. Patient states he cannot correlate exactly to an injury but states he may have missed step. Patient states there is no pain with range of motion other than when he is weightbearing. He states that he can sit move his leg freely with no pain. Denies any paresthesias. Patient denies any redness, swelling, fever, chills. Patient states he does take Xarelto and has had no prior DVTs. Patient denies any foot, hip pain. - Related Data Home Medications Medication Instructions Recorded Confirmed Ferrous Sulfate [Feosol] 650 mg PO DAILY 03/25/14 04/15/17 Multivitamins, Thera [Multivitamin 1 tab PO DAILY 03/25/14 04/15/17 (formulary)] Tamsulosin [Flomax] 0.4 mg PO DAILY 03/25/14 04/15/17 Ascorbic Acid [Vitamin C] 500 mg PO DAILY 11/21/16 04/15/17 Ergocalciferol (Vitamin D2) 50,000 unit PO Q14D 11/21/16 04/15/17 [Vitamin D2] Fluticasone Nasal Gable [Flonase 2 spr EA NOSTRIL DAILY 11/21/16 04/15/17 Nasal Gable] Loratadine [Claritin] 10 mg PO DAILY 11/21/16 04/15/17 Sertraline [Zoloft] 50 mg PO DAILY 11/21/16 04/15/17 Previous Rx's Medication Instructions Recorded Metoprolol Tartrate [Lopressor] 12.5 mg PO BID #0 tab 04/18/17 Rivaroxaban [Xarelto] 20 mg PO DAILY #0 04/18/17 traMADol HCl [Ultram] 50 mg PO Q6H PRN #60 tab 04/18/17 Allergies Allergy/AdvReac Type Severity Reaction Status Date / Time No Known Allergies Allergy Verified 06/07/18 09:17 Review of Systems ROS Statement: Those systems with pertinent positive or pertinent negative responses have been documented in the HPI. ROS Other: All systems not noted in ROS Statement are negative. 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 History of Any Multi-Drug Resistant Organisms: None Reported Additional Past Surgical History / Comment(s): L nephrectomy, brain tumor removal, bilateral cataract removals, colonoscopy. Past Anesthesia/Blood Transfusion Reactions: No Reported Reaction Past Psychological History: Depression Smoking Status: Former smoker Past Alcohol Use History: None Reported Past Drug Use History: None Reported - Past Family History Father Family Medical History: No Reported History Additional Family Medical History / Comment(s): Father was healthy. He at the age of 62yrs in a MVA. Mother Additional Family Medical History / Comment(s): Mother at the age of 86yrs of "heart problems." General Exam Limitations: physical limitation General appearance: alert, in no apparent distress Respiratory exam: Present: normal lung sounds bilaterally. Absent: respiratory distress, wheezes, rales, rhonchi, stridor Cardiovascular Exam: Present: regular rate, normal rhythm, normal heart sounds. Absent: systolic murmur, diastolic murmur, rubs, gallop, clicks Extremities exam: Present: other (Right knee full range of motion, no pain with range of motion when nonweightbearing. He does report pain on the medial aspect when weightbearing there is no erythema no warmth pedal pulses equal bilaterally) Skin exam: Present: warm, dry, intact, normal color. Absent: rash Course Vital Signs 06/07/18 09:12 Temperature 97.6 F Pulse Rate 69 Respiratory 18 Rate Blood Pressure 133/88 O2 Sat by Pulse 91 L Oximetry Medical Decision Making - Medical Decision Making 83-year-old male presents emergency from for knee pain. Patient cannot remember exactly injury that he may have twisted it. Patient has pain on the medial aspect more consistent with a knee strain. Patient has no pain with range of motion other than when weightbearing. Patient to have on my meniscus injury will follow-up for MRI with orthopedics. Patient is on Xarelto no concern for DVT pulses are equal bilaterally lower extremities. Disposition Clinical Impression: Strain of knee Disposition: HOME SELF-CARE Condition: Stable Instructions: Knee Pain (ED) Additional Instructions: Please return to the Emergency Department if symptoms worsen or any other concerns. Is patient prescribed a controlled substance at d/c from ED?: No Referrals: Darvin Hurd DO [Primary Care Provider] - 1-2 days Davian Brewer MD [STAFF PHYSICIAN] - 1-2 days Time of Disposition: 10:12
--- NOTE | 2018-06-07 09:41 | XR ---
EXAMINATION TYPE: XR knee complete RT , 3 VIEWS DATE OF EXAM ORDERED: 06/07/2018 HISTORY: Pain. COMPARISON: None. FINDINGS: No fracture, dislocation or joint effusion is seen. There is minimal degenerative change. IMPRESSION: NO ACUTE OSSEOUS LESION.
[2018-06-07] MEDS ORDERED: ACET/COD 300 MG/30 MG STARTER PACK 6 TAB BTL PO STA (10:03)
[2018-06-07 10:41] VITALS: BP 126/99; PULSE 62; TEMP 98
== END 2018-06-07 10:36 | disposition home or self-care (01) ==
LOC: EC 09:02
DX: S86.911A Strain of unspecified muscle(s) and tendon(s) at lower leg level, right leg, initial encounter (principal); I48.91 Unspecified atrial fibrillation; J44.9 Chronic obstructive pulmonary disease, unspecified; E11.9 Type 2 diabetes mellitus without complications; I10 Essential (primary) hypertension; D64.9 Anemia, unspecified; N40.0 Benign prostatic hyperplasia without lower urinary tract symptoms; H54.61 Unqualified visual loss, right eye, normal vision left eye; H91.92 Unspecified hearing loss, left ear; F32.9 Major depressive disorder, single episode, unspecified; Z85.841 Personal history of malignant neoplasm of brain; Z87.891 Personal history of nicotine dependence; Z79.51 Long term (current) use of inhaled steroids; Z79.899 Other long term (current) drug therapy; Z90.5 Acquired absence of kidney; X58.XXXA Exposure to other specified factors, initial encounter
CPT/HCPCS: 99283

== ENCOUNTER → 2018-12-08 | Outpatient (CLI) | payer MEDICARE ==
[2018-12-08 14:55] LABS: Appearance,Urine Clear (Clear); Bacteria,Urine Rare /hpf; Bilirubin,Urine Negative (Negative); Blood,Urine Negative (Negative); Color,Urine Yellow; Glucose,Urine (UA) Negative (Negative); Ketones,Urine Negative (Negative); Leukocyte Esterase,Urine Small (Negative); Mucus,Urine Rare /hpf; Nitrite,Urine Negative (Negative); Protein,Urine Negative (Negative); RBC,Urine 1 /hpf (0-5); Specific Gravity,Urine 1.018 (1.001-1.035); Squamous Epithelial Cell,Urine <1 /hpf (0-4); Urobilinogen,Urine <2.0 mg/dL (<2.0); WBC,Urine 2 /hpf (0-5)
[2018-12-08 15:05] LABS: HCT 38.7 % (39.0-53.0); HGB 11.6 gm/dL (13.0-17.5); Hypochromasia Slight; MCHC 29.9 g/dL (31.0-37.0); Mean Platelet Volume 11.9; RBC 3.99 m/uL (4.30-5.90); RDW 14.2 % (11.5-15.5); WBC 5.3 k/uL (3.8-10.6)
[2018-12-08 15:50] LABS: Platelet Count 65 k/uL (150-450)
[2018-12-08 19:26] LABS: Iron Saturation 23.91 (15.00-50.00)
[2018-12-08 19:34] LABS: Vitamin D 25 Hydroxy 44.2 ng/mL (30.0-100.0)
[2018-12-08 20:25] LABS: Albumin 4.1 g/dL (3.80-4.90); Albumin/Globulin Ratio 2.16 (1.60-3.17); Anion Gap 7.9 mmol/L (4.00-12.00); Calcium 8.8 mg/dL (8.7-10.3); Carbon Dioxide 24.1 mmol/L (21.6-31.8); Globulin 1.9 g/dL (1.6-3.3); Magnesium 1.9 mg/dL (1.5-2.4); Phosphorus 3.9 mg/dL (2.4-5.1); Potassium 4.6 mmol/L (3.5-5.5); Total Bilirubin 0.3 mg/dL (0.3-1.2); Uric Acid 7.4 mg/dL (3.7-8.7)
== END ==
LOC: LABWHC1 13:50
PROVIDERS: ATTEND Nurse Practitioner Family
DX: N39.0 Urinary tract infection, site not specified (principal); E83.39 Other disorders of phosphorus metabolism; N25.81 Secondary hyperparathyroidism of renal origin; E55.9 Vitamin D deficiency, unspecified; M10.9 Gout, unspecified; N18.3 Chronic kidney disease, stage 3 (moderate)
CPT/HCPCS: 36415; 80053; 81001; 82306; 82728; 83540; 83550; 83735; 83970; 84100; 84550; 85027

== ENCOUNTER 2019-02-26 17:44 | Emergency (ER) | payer MEDICARE ==
[2019-02-26 18:18] VITALS: TEMP 98
--- NOTE | 2019-02-26 18:20 | ED ---
Abdominal Pain HPI - General Chief Complaint: Abdominal Pain Stated Complaint: RT side flank pain Time Seen by Provider: 02/26/19 18:20 Source: patient, RN notes reviewed, old records reviewed Mode of arrival: ambulatory Limitations: no limitations - History of Present Illness Initial Comments: This is a 4-year-old male the ER for evaluation of flank pain right-sided flank pain and back pain. Denies trauma. Denies any symptoms of fever abdominal pain nausea vomiting or diarrhea. No history of kidney stones. No dysuria. Dysuria. She has medical history significant for medical comorbidities. No prior history of similar pain. No recent travel history or sick contacts MD Complaint: abdominal pain, flank pain (Right-sided) -: days(s) Location: R flank Radiation: R flank, back Migration to: no migration Severity: mild Severity scale (1-10): 3 Quality: stabbing, aching Consistency: constant Improves With: nothing Worsens With: nothing Associated Symptoms: denies other symptoms - Related Data Home Medications Medication Instructions Recorded Confirmed Ferrous Sulfate [Feosol] 650 mg PO DAILY 03/25/14 06/07/18 Multivitamins, Thera [Multivitamin 1 tab PO DAILY 03/25/14 06/07/18 (formulary)] Tamsulosin [Flomax] 0.4 mg PO DAILY 03/25/14 06/07/18 Ascorbic Acid [Vitamin C] 500 mg PO DAILY 11/21/16 06/07/18 Ergocalciferol (Vitamin D2) 50,000 unit PO Q14D 11/21/16 06/07/18 [Vitamin D2] Fluticasone Nasal D Lo [Flonase 2 spr EA NOSTRIL DAILY 11/21/16 06/07/18 Nasal D Lo] Loratadine [Claritin] 10 mg PO DAILY 11/21/16 06/07/18 Sertraline [Zoloft] 50 mg PO DAILY 11/21/16 06/07/18 Previous Rx's Medication Instructions Recorded Metoprolol Tartrate [Lopressor] 12.5 mg PO BID #0 tab 04/18/17 Rivaroxaban [Xarelto] 20 mg PO DAILY #0 04/18/17 traMADol HCl [Ultram] 50 mg PO Q6H PRN #60 tab 04/18/17 Allergies Allergy/AdvReac Type Severity Reaction Status Date / Time No Known Allergies Allergy Verified 02/26/19 18:18 Review of Systems ROS Statement: Those systems with pertinent positive or pertinent negative responses have been documented in the HPI. ROS Other: All systems not noted in ROS Statement are negative. 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 History of Any Multi-Drug Resistant Organisms: None Reported Additional Past Surgical History / Comment(s): L nephrectomy, brain tumor removal, bilateral cataract removals, colonoscopy. Past Anesthesia/Blood Transfusion Reactions: No Reported Reaction Past Psychological History: Depression Smoking Status: Former smoker Past Alcohol Use History: None Reported Past Drug Use History: None Reported - Past Family History Father Family Medical History: No Reported History Additional Family Medical History / Comment(s): Father was healthy. He at the age of 62yrs in a MVA. Mother Additional Family Medical History / Comment(s): Mother at the age of 86yrs of "heart problems." General Exam - General Exam Comments Initial Comments: Does have mild rash to right lower flank and abdomen, reports the pain no vesicular eruption Limitations: no limitations General appearance: alert, in no apparent distress Head exam: Present: atraumatic, normocephalic, normal inspection Eye exam: Present: normal appearance, PERRL, EOMI. Absent: scleral icterus, conjunctival injection, periorbital swelling ENT exam: Present: normal exam, mucous membranes moist Neck exam: Present: normal inspection. Absent: tenderness, meningismus, lymphadenopathy Respiratory exam: Present: normal lung sounds bilaterally. Absent: respiratory distress, wheezes, rales, rhonchi, stridor Cardiovascular Exam: Present: regular rate, normal rhythm, normal heart sounds. Absent: systolic murmur, diastolic murmur, rubs, gallop, clicks GI/Abdominal exam: Present: soft, normal bowel sounds. Absent: distended, tenderness, guarding, rebound, rigid Extremities exam: Present: normal inspection, full ROM, normal capillary refill. Absent: tenderness, pedal edema, joint swelling, calf tenderness Back exam: Present: normal inspection Neurological exam: Present: alert, oriented X3, CN II-XII intact Psychiatric exam: Present: normal affect, normal mood Skin exam: Present: warm, dry, intact, normal color. Absent: rash Course Vital Signs 02/26/19 02/26/19 18:16 20:22 Temperature 98.0 F Pulse Rate 96 80 Respiratory 18 16 Rate Blood Pressure 114/72 118/82 O2 Sat by Pulse 97 99 Oximetry - Reevaluation(s) Reevaluation #1: Medical record is reviewed Patient's in no acute distress spoken with regarding scarring results, questions answered Medical Decision Making - Medical Decision Making 84 male with nonspecific right-sided flank pain back pain. CT negative labwork is normal pain is improved. Patient does seem to have started rash encouraged fluid for worsening rashes this could be early shingles. Patient can be discharged home - Lab Data Result diagrams: 02/26/19 18:37 02/26/19 18:37 Lab Results 02/26/19 02/26/19 02/26/19 Range/Units 18:37 18:37 18:37 WBC 5.8 (3.8-10.6) k/uL RBC 3.71 L (4.30-5.90) m/uL Hgb 10.9 L (13.0-17.5) gm/dL Hct 35.4 L (39.0-53.0) % MCV 95.3 (80.0-100.0) fL MCH 29.5 (25.0-35.0) pg MCHC 31.0 (31.0-37.0) g/dL RDW 14.8 (11.5-15.5) % Plt Count 69 L (150-450) k/uL Neutrophils % 63 % Lymphocytes % 26 % Monocytes % 6 % Eosinophils % 2 % Basophils % 0 % Neutrophils # 3.6 (1.3-7.7) k/uL Lymphocytes # 1.5 (1.0-4.8) k/uL Monocytes # 0.3 (0-1.0) k/uL Eosinophils # 0.1 (0-0.7) k/uL Basophils # 0.0 (0-0.2) k/uL Manual Slide Review Performed Large Platelets Present Sodium 144 (137-145) mmol/L Potassium 4.4 (3.5-5.1) mmol/L Chloride 113 H (98-107) mmol/L Carbon Dioxide 22 (22-30) mmol/L Anion Gap 9 mmol/L BUN 44 H (9-20) mg/dL Creatinine 1.76 H (0.66-1.25) mg/dL Est GFR (CKD-EPI)AfAm 40 (>60 ml/min/1.73 sqM) Est GFR (CKD-EPI)NonAf 35 (>60 ml/min/1.73 sqM) Glucose 108 H (74-99) mg/dL Plasma Lactic Acid Ralph 0.8 (0.7-2.0) mmol/L Calcium 9.1 (8.4-10.2) mg/dL Total Bilirubin 0.4 (0.2-1.3) mg/dL AST 12 L (17-59) U/L ALT 9 L (21-72) U/L Alkaline Phosphatase 55 (38-126) U/L Troponin I (0.000-0.034) ng/mL Total Protein 6.3 (6.3-8.2) g/dL Albumin 3.9 (3.5-5.0) g/dL Amylase 59 (30-110) U/L Lipase 98 (23-300) U/L Urine Color Urine Appearance (Clear) Urine pH (5.0-8.0) Ur Specific [place] (1.001-1.035) Urine Protein (Negative) Urine Glucose (UA) (Negative) Urine Ketones (Negative) Urine Blood (Negative) Urine Nitrite (Negative) Urine Bilirubin (Negative) Urine Urobilinogen (<2.0) mg/dL Ur Leukocyte Esterase (Negative) Urine RBC (0-5) /hpf Urine WBC (0-5) /hpf Ur Squamous Epith Cells (0-4) /hpf Urine Bacteria (None) /hpf Urine Mucus (None) /hpf 02/26/19 02/26/19 Range/Units 18:37 18:37 WBC (3.8-10.6) k/uL RBC (4.30-5.90) m/uL Hgb (13.0-17.5) gm/dL Hct (39.0-53.0) % MCV (80.0-100.0) fL MCH (25.0-35.0) pg MCHC (31.0-37.0) g/dL RDW (11.5-15.5) % Plt Count (150-450) k/uL Neutrophils % % Lymphocytes % % Monocytes % % Eosinophils % % Basophils % % Neutrophils # (1.3-7.7) k/uL Lymphocytes # (1.0-4.8) k/uL Monocytes # (0-1.0) k/uL Eosinophils # (0-0.7) k/uL Basophils # (0-0.2) k/uL Manual Slide Review Large Platelets Sodium (137-145) mmol/L Potassium (3.5-5.1) mmol/L Chloride (98-107) mmol/L Carbon Dioxide (22-30) mmol/L Anion Gap mmol/L BUN (9-20) mg/dL Creatinine (0.66-1.25) mg/dL Est GFR (CKD-EPI)AfAm (>60 ml/min/1.73 sqM) Est GFR (CKD-EPI)NonAf (>60 ml/min/1.73 sqM) Glucose (74-99) mg/dL Plasma Lactic Acid Ralph (0.7-2.0) mmol/L Calcium (8.4-10.2) mg/dL Total Bilirubin (0.2-1.3) mg/dL AST (17-59) U/L ALT (21-72) U/L Alkaline Phosphatase (38-126) U/L Troponin I <0.012 (0.000-0.034) ng/mL Total Protein (6.3-8.2) g/dL Albumin (3.5-5.0) g/dL Amylase (30-110) U/L Lipase (23-300) U/L Urine Color Yellow Urine Appearance Clear (Clear) Urine pH 5.0 (5.0-8.0) Ur Specific [place] 1.017 (1.001-1.035) Urine Protein Negative (Negative) Urine Glucose (UA) Negative (Negative) Urine Ketones Negative (Negative) Urine Blood Negative (Negative) Urine Nitrite Negative (Negative) Urine Bilirubin Negative (Negative) Urine Urobilinogen <2.0 (<2.0) mg/dL Ur Leukocyte Esterase Small H (Negative) Urine RBC <1 (0-5) /hpf Urine WBC 5 (0-5) /hpf Ur Squamous Epith Cells <1 (0-4) /hpf Urine Bacteria Rare H (None) /hpf Urine Mucus Rare H (None) /hpf - Radiology Data Radiology results: report reviewed (CT head and pelvis is negative for acute disease), image reviewed Disposition Clinical Impression: Right flank pain, Right-sided back pain Disposition: HOME SELF-CARE Condition: Good Instructions (If sedation given, give patient instructions): Flank Pain (ED) Is patient prescribed a controlled substance at d/c from ED?: No Referrals: Darvin Hurd DO [Primary Care Provider] - 1-2 days
[2019-02-26] MEDS ORDERED: MORPHINE SULFATE 4 MG/ML SYRINGE IV STA (18:24)
[2019-02-26] MEDS ORDERED: SODIUM CHLORIDE 0.9% 1,000 ML IV STA (18:24)
[2019-02-26 18:56] LABS: Basophils % (A) 0 %; Eosinophils # (A) 0.1 k/uL (0-0.7); Eosinophils % (A) 2 %; HCT 35.4 % (39.0-53.0); HGB 10.9 gm/dL (13.0-17.5); Lymphocytes # (A) 1.5 k/uL (1.0-4.8); Lymphocytes % (A) 26 %; MCH 29.5 pg (25.0-35.0); MCV 95.3 fL (80.0-100.0); Mean Platelet Volume 12.4; Monocytes # (A) 0.3 k/uL (0-1.0); Monocytes % (A) 6 %; Neutrophils # (A) 3.6 k/uL (1.3-7.7); Neutrophils % (A) 63 %; RBC 3.71 m/uL (4.30-5.90); RDW 14.8 % (11.5-15.5); WBC 5.8 k/uL (3.8-10.6)
[2019-02-26 18:59] LABS: Appearance,Urine Clear (Clear); Bacteria,Urine Rare /hpf; Bilirubin,Urine Negative (Negative); Blood,Urine Negative (Negative); Color,Urine Yellow; Glucose,Urine (UA) Negative (Negative); Ketones,Urine Negative (Negative); Leukocyte Esterase,Urine Small (Negative); Mucus,Urine Rare /hpf; Nitrite,Urine Negative (Negative); Protein,Urine Negative (Negative); RBC,Urine <1 /hpf (0-5); Specific Gravity,Urine 1.017 (1.001-1.035); Squamous Epithelial Cell,Urine <1 /hpf (0-4); Urobilinogen,Urine <2.0 mg/dL (<2.0); WBC,Urine 5 /hpf (0-5)
[2019-02-26 19:03] LABS: Albumin 3.9 g/dL (3.5-5.0); Calcium 9.1 mg/dL (8.4-10.2); Potassium 4.4 mmol/L (3.5-5.1); Total Bilirubin 0.4 mg/dL (0.2-1.3); Total Protein 6.3 g/dL (6.3-8.2)
--- NOTE | 2019-02-26 19:24 | CT ---
EXAMINATION TYPE: CT abdomen pelvis wo con DATE OF EXAM: 02/26/2019 COMPARISON: 04/15/2017 HISTORY: Right side flank pain. CT DLP: 1028.4 mGycm Automated exposure control for dose reduction was used. TECHNIQUE: Helical acquisition of images was performed from the lung bases through the pelvis. FINDINGS: There is minimal scarring and subsegmental atelectasis at the lung bases. Heart is enlarged. Liver an d spleen appear normal. Gallbladder appears normal. The bile ducts are not dilated. Stomach appears n ormal. There is no adrenal mass. Left kidney appears absent. Right kidney shows no hydronephrosis. Right kid sudhir has normal size and contour. There is no retroperitoneal adenopathy. Bladder distends smoothly. T here is no evidence of pelvic mass. There is no inguinal hernia. There are sigmoid diverticula withou t evidence of diverticulitis. There is no mesenteric edema. There is no ascites or free air. The appe ndix appears normal. Appendix is partly filled with air. There is no evidence of a bowel obstruction. There is multilevel spondylotic changes in the lumbar spine. There is 20% anterior wedging of L2 vert ebra. Unchanged. There is a 5 mm degenerative subluxation at L5-S1. Unchanged. The bony pelvis appear s intact. IMPRESSION: MILD COLONIC DIVERTICULOSIS WITHOUT DIVERTICULITIS. NORMAL APPENDIX. ABSENT LEFT KIDNEY. NO SIGN OF A CUTE ABDOMEN AND PELVIS. I DO NOT SEE A CAUSE FOR RIGHT FLANK PAIN.
[2019-02-26 19:31] LABS: Large Platelets Present; Platelet Count 69 k/uL (150-450)
[2019-02-26] MEDS ORDERED: ACET/COD 300 MG/30 MG STARTER PACK 6 TAB BTL PO STA (20:08)
[2019-02-26 20:26] VITALS: BP 118/82; PULSE 80; RESP 16
== END 2019-02-26 21:20 | disposition home or self-care (01) ==
LOC: EC 17:44
DX: R10.9 Unspecified abdominal pain (principal); M54.9 Dorsalgia, unspecified; R21 Rash and other nonspecific skin eruption; J44.9 Chronic obstructive pulmonary disease, unspecified; F32.9 Major depressive disorder, single episode, unspecified; E11.9 Type 2 diabetes mellitus without complications; N40.0 Benign prostatic hyperplasia without lower urinary tract symptoms; Z79.51 Long term (current) use of inhaled steroids; Z79.899 Other long term (current) drug therapy; Z87.891 Personal history of nicotine dependence; Z85.841 Personal history of malignant neoplasm of brain; Z90.5 Acquired absence of kidney
CPT/HCPCS: 36415; 80053; 82150; 83605; 83690; 84484; 85025; 81001; 74176; 99284; 96374; 96361; J2270

== ENCOUNTER → 2019-04-12 | Outpatient (CLI) | payer MEDICARE ==
[2019-04-12 10:34] LABS: HCT 36.4 % (39.0-53.0); HGB 11.5 gm/dL (13.0-17.5); MCH 30.8 pg (25.0-35.0); MCHC 31.6 g/dL (31.0-37.0); MCV 97.5 fL (80.0-100.0); Mean Platelet Volume 12.5; RBC 3.73 m/uL (4.30-5.90); RDW 15.5 % (11.5-15.5); WBC 5.5 k/uL (3.8-10.6)
[2019-04-12 10:46] LABS: Appearance,Urine Clear (Clear); Bacteria,Urine Rare /hpf; Bilirubin,Urine Negative (Negative); Blood,Urine Negative (Negative); Color,Urine Yellow; Glucose,Urine (UA) Negative (Negative); Ketones,Urine Negative (Negative); Leukocyte Esterase,Urine Moderate (Negative); Mucus,Urine Rare /hpf; Nitrite,Urine Negative (Negative); Protein,Urine Negative (Negative); RBC,Urine 1 /hpf (0-5); Specific Gravity,Urine 1.016 (1.001-1.035); Squamous Epithelial Cell,Urine 1 /hpf (0-4); Urobilinogen,Urine <2.0 mg/dL (<2.0); WBC,Urine 3 /hpf (0-5)
[2019-04-12 11:01] LABS: Platelet Count 69 k/uL (150-450)
[2019-04-12 16:43] LABS: Iron Saturation 32.27 (15.00-50.00)
[2019-04-12 16:49] LABS: African American GFR (CKD) 45.2 (60.0-200.0); Albumin/Globulin Ratio 2.22 (1.60-3.17); Anion Gap 5.5 mmol/L (4.00-12.00); BUN/Creat Ratio 26.25 Ratio (12.00-20.00); Calcium 8.8 mg/dL (8.7-10.3); Carbon Dioxide 24.5 mmol/L (21.6-31.8); Globulin 1.8 g/dL (1.6-3.3); Magnesium 1.8 mg/dL (1.5-2.4); Phosphorus 3.8 mg/dL (2.4-5.1); Potassium 4.7 mmol/L (3.5-5.5); Total Bilirubin 0.7 mg/dL (0.3-1.2); Total Protein 5.8 g/dL (6.2-8.2); Uric Acid 6.5 mg/dL (3.7-8.7)
[2019-04-12 16:51] LABS: Vitamin D 25 Hydroxy 56.8 ng/mL (30.0-100.0)
[2019-04-12 17:19] LABS: Ferritin 423.7 ng/mL (22.0-322.0)
== END | disposition home or self-care (01) ==
LOC: LABWHC1 09:27
PROVIDERS: ATTEND Internal Medicine
DX: M10.9 Gout, unspecified (principal); N18.3 Chronic kidney disease, stage 3 (moderate); D63.1 Anemia in chronic kidney disease; N39.0 Urinary tract infection, site not specified; E55.9 Vitamin D deficiency, unspecified; N25.81 Secondary hyperparathyroidism of renal origin
CPT/HCPCS: 36415; 80053; 81001; 82306; 82728; 83540; 83550; 83735; 83970; 84100; 84550; 85027

== ENCOUNTER 2019-05-25 05:39 | Emergency (ER) | payer OTHER, MEDICARE ==
[2019-05-25 05:52] VITALS: TEMP 97.9
[2019-05-25 06:15] LABS: Basophils % (A) 1 %; Eosinophils # (A) 0.1 k/uL (0-0.7); Eosinophils % (A) 2 %; HCT 33.2 % (39.0-53.0); Lymphocytes # (A) 1.9 k/uL (1.0-4.8); Lymphocytes % (A) 35 %; MCH 30.9 pg (25.0-35.0); MCHC 33.2 g/dL (31.0-37.0); Mean Platelet Volume 11.7; Monocytes # (A) 0.3 k/uL (0-1.0); Monocytes % (A) 6 %; Neutrophils # (A) 2.9 k/uL (1.3-7.7); Neutrophils % (A) 54 %; Platelet Count 66 k/uL (150-450); RBC 3.57 m/uL (4.30-5.90); RDW 14.2 % (11.5-15.5); WBC 5.5 k/uL (3.8-10.6)
[2019-05-25 06:17] VITALS: PULSE 88
[2019-05-25 06:20] LABS: ALT 18 U/L (21-72); AST 16 U/L (17-59); African American GFR (CKD) 45 (>60 ml/min/1.73 sqM); Albumin 3.6 g/dL (3.5-5.0); Alcohol <10 mg/dL; Alkaline Phosphatase 52 U/L (38-126); Anion Gap 9 mmol/L; Blood Urea Nitrogen 36 mg/dL (9-20); Calcium 8.4 mg/dL (8.4-10.2); Carbon Dioxide 24 mmol/L (22-30); Chloride 110 mmol/L (98-107); Glucose 134 mg/dL (74-99); INR 1.1 (<1.2); Partial Thromboplastin Time 32.8 sec (22.0-30.0); Potassium 4.3 mmol/L (3.5-5.1); Prothrombin Time 11.9 sec (9.0-12.0); Sodium 143 mmol/L (137-145); Total Bilirubin 0.6 mg/dL (0.2-1.3); Total Protein 6.1 g/dL (6.3-8.2)
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
--- NOTE | 2019-05-25 06:36 | XR ---
EXAMINATION TYPE: XR pelvis AP view DATE OF EXAM: 05/25/2019 COMPARISON: 04/15/2017 HISTORY: Pain. Trauma. TECHNIQUE: Single view FINDINGS: Pelvic ring is intact. Proximal femurs are intact. Sacroiliac joints appear normal. There i s no evidence of a fracture. IMPRESSION: No acute abnormality of the pelvis. No change.
--- NOTE | 2019-05-25 06:38 | XR ---
EXAMINATION TYPE: XR chest 1V portable DATE OF EXAM: 05/25/2019 COMPARISON: 12/16/2017 HISTORY: Short of breath TECHNIQUE: Single frontal view of the chest is obtained. Supine FINDINGS: Supine view shows no heart failure. Lungs appear clear of consolidation. There is no pleur al effusion. There is no sign of a pneumothorax. Bony thorax appears intact. IMPRESSION: No active cardiopulmonary disease. No change.
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
[2019-05-25 06:45] LABS: Large Platelets Present
[2019-05-25 06:55] LABS: Appearance,Urine Clear (Clear); Bilirubin,Urine Negative (Negative); Blood,Urine Negative (Negative); Color,Urine Light Yellow; Glucose,Urine (UA) Negative (Negative); Ketones,Urine Negative (Negative); Leukocyte Esterase,Urine Negative (Negative); Nitrite,Urine Negative (Negative); PH, Urine 5.5 (5.0-8.0); Protein,Urine Negative (Negative); Specific Gravity,Urine 1.012 (1.001-1.035); Urobilinogen,Urine <2.0 mg/dL (<2.0)
[2019-05-25 07:06] LABS: Amphetamine Screen,Urine Not Detected (NotDetected); Barbiturate Screen,Urine Not Detected (NotDetected); Benzodiazepines Screen,Urine Not Detected (NotDetected); Cocaine Screen,Urine Not Detected (NotDetected); Methadone Screen, Urine Not Detected (NotDetected); Opiate Screen,Urine Not Detected (NotDetected); Oxycodone Screen, Urine Not Detected (NotDetected); Phencyclidine Screen,Urine Not Detected (NotDetected); Tricyclic Antidepressant,Urine Not Detected (NotDetected); Urn Cannabinoid Scrn Not Detected (NotDetected)
[2019-05-25 07:11] VITALS: BP 145/90; RESP 18
== END 2019-05-25 07:11 | disposition home or self-care (01) ==
LOC: EC 05:39
DX: S00.83XA Contusion of other part of head, initial encounter (principal); M54.2 Cervicalgia; J44.9 Chronic obstructive pulmonary disease, unspecified; N40.0 Benign prostatic hyperplasia without lower urinary tract symptoms; D64.9 Anemia, unspecified; F32.9 Major depressive disorder, single episode, unspecified; Z87.891 Personal history of nicotine dependence; Z85.841 Personal history of malignant neoplasm of brain; Z79.899 Other long term (current) drug therapy; V89.2XXA Person injured in unspecified motor-vehicle accident, traffic, initial encounter; Y92.89 Other specified places as the place of occurrence of the external cause
CPT/HCPCS: 36415; 70450; 71045; 72125; 72170; 80053; 80306; 80320; 81003; 83605; 84484; 85025; 85610; 85730; 86850; 86900; 86901; 93005; 99285

== ENCOUNTER → 2019-08-06 | Outpatient (CLI) | payer MEDICARE ==
[2019-08-06 10:35] LABS: HCT 34.4 % (39.0-53.0); HGB 11.1 gm/dL (13.0-17.5); Hypochromasia Slight; MCH 31.5 pg (25.0-35.0); MCHC 32.2 g/dL (31.0-37.0); MCV 97.9 fL (80.0-100.0); Mean Platelet Volume 14.3; RBC 3.52 m/uL (4.30-5.90); WBC 5.8 k/uL (3.8-10.6)
[2019-08-06 10:37] LABS: Platelet Count 73 k/uL (150-450)
[2019-08-06 11:02] LABS: Appearance,Urine Clear (Clear); Bilirubin,Urine Negative (Negative); Blood,Urine Negative (Negative); Color,Urine Yellow; Glucose,Urine (UA) Negative (Negative); Ketones,Urine Negative (Negative); Leukocyte Esterase,Urine Negative (Negative); Nitrite,Urine Negative (Negative); Protein,Urine Negative (Negative); Specific Gravity,Urine 1.017 (1.001-1.035); Urobilinogen,Urine <2.0 mg/dL (<2.0)
[2019-08-06 18:35] LABS: % Iron Saturation 36.24 (15.00-50.00); African American GFR (CKD) 45.2 (60.0-200.0); Albumin 4.1 g/dL (3.80-4.90); Albumin/Globulin Ratio 2.41 (1.60-3.17); Anion Gap 8.3 mmol/L (4.00-12.00); BUN/Creat Ratio 22.5 Ratio (12.00-20.00); Calcium 8.6 mg/dL (8.7-10.3); Carbon Dioxide 24.7 mmol/L (21.6-31.8); Globulin 1.7 g/dL (1.6-3.3); Magnesium 1.7 mg/dL (1.5-2.4); Potassium 4.4 mmol/L (3.5-5.5); Total Bilirubin 0.5 mg/dL (0.3-1.2); Total Protein 5.8 g/dL (6.2-8.2); Uric Acid 6.8 mg/dL (3.7-8.7)
[2019-08-06 19:01] LABS: Ferritin 404.2 ng/mL (22.0-322.0)
== END | disposition home or self-care (01) ==
LOC: LABWHC1 10:06
PROVIDERS: ATTEND Nurse Practitioner Family
DX: N39.0 Urinary tract infection, site not specified (principal); N25.81 Secondary hyperparathyroidism of renal origin; E55.9 Vitamin D deficiency, unspecified; M10.9 Gout, unspecified; D63.1 Anemia in chronic kidney disease; N18.3 Chronic kidney disease, stage 3 (moderate)
CPT/HCPCS: 36415; 80053; 81003; 82306; 82728; 83540; 83550; 83735; 83970; 84100; 84550; 85027

== ENCOUNTER 2020-01-25 11:44 | Inpatient (IN) | payer MEDICARE ==
--- NOTE | 2020-01-25 12:43 | XR ---
EXAMINATION TYPE: XR elbow complete RT DATE OF EXAM: 01/25/2020 CLINICAL HISTORY: Right elbow contusion and pain after fall TECHNIQUE: Frontal, lateral and oblique images of the right elbow are obtained. COMPARISON: None FINDINGS: Posterior humerus and ulna do not appear aligned on the lateral view although there appears to be obliquity when examining the distal humeral condyles. There is soft tissue swelling overlying the distal humerus and olecranon. Osseous demineralization is seen. IMPRESSION: Repeat lateral examination on the right is recommended as the posterior humerus and ulna are not outlined and subluxation is possible versus obliquity in imaging.
--- NOTE | 2020-01-25 12:48 | XR ---
EXAMINATION TYPE: XR Hip RT and AP Pelvis DATE OF EXAM: 01/25/2020 COMPARISON: NONE HISTORY: Right hip pain after fall TECHNIQUE: A single AP view of the pelvis is obtained. Two views of the right hip are obtained. FINDINGS: There is diffuse osseous demineralization. There is no acute fracture/dislocation evident in the pelvis. The hip and sacroiliac joints appear aligned with moderate bilateral femoral acetabul ar arthropathy and moderate degenerative change of the lumbosacral junction. Mild degenerative smith e of the sacroiliac joints is seen without sacroiliac joint space widening. Slightly limited evaluati on of the left pubic rami given obliquity in imaging. The overlying soft tissue appears unremarkable. Two views of right hip show no acute fracture or dislocation. No focal lytic or sclerotic lesion see n in the proximal right femur. The overlying soft tissue is unremarkable. IMPRESSION: There is no acute fracture or dislocation in the pelvis or right hip.
[2020-01-25] MEDS ORDERED: MORPHINE SULFATE 4 MG/ML SYRINGE IM STA (13:57)
--- NOTE | 2020-01-25 14:05 | CT ---
EXAMINATION TYPE: CT hip RT wo con DATE OF EXAM: 01/25/2020 COMPARISON: None HISTORY: Rt hip pain CT DLP: 666.4 mGycm Automated exposure control for dose reduction was used. FINDINGS: There is mild joint space narrowing. Femoral head articulates with the acetabulum. No acute fractures are evident. Muscular density surrounding appears unremarkable. No large joint effusion is evident IMPRESSION: 1. MILD OSTEOARTHRITIC DEGENERATIVE CHANGE RIGHT HIP
[2020-01-25] MEDS ORDERED: NALOXONE 0.4 MG/ML 1 ML VIAL IV PRN (14:56)
--- NOTE | 2020-01-25 15:03 | ED ---
Fall HPI <Satish Mathew - Last Filed: 01/25/20 15:16> - General Source: patient, EMS Mode of arrival: ambulatory <Marcy Goodson - Last Filed: 01/25/20 15:34> - General Chief Complaint: Fall Stated Complaint: Fall Time Seen by Provider: 01/25/20 11:51 - History of Present Illness Initial Comments: 84-year-old male presenting today for chief complaint of fall yesterday. Patient states that he was helping a friend carry something when he fell yesterday onto his right hip. He states he did not hit his head or neck. He states he only hit his right hip. Patient is on Plavix. Patient denies loss of consciousness. Patient denies any injury to abdomen chest left lower extremity. Patient states he did strike his right elbow as well, admit to bruising and swelling. Pt states he was initially able to ambulate around the house yesterday, and before bed. When he woke up this morning he was unable to get out of bed secondary to pain in the right hip. He denies weakness or loss of sensation. Denies additional complaints. Upon arrival patient appears well there is no signs of acute distress. (Marcy Goodson) - Related Data Home Medications Medication Instructions Recorded Confirmed Ferrous Sulfate [Feosol] 650 mg PO DAILY 03/25/14 06/07/18 Multivitamins, Thera [Multivitamin 1 tab PO DAILY 03/25/14 06/07/18 (formulary)] Tamsulosin [Flomax] 0.4 mg PO DAILY 03/25/14 06/07/18 Ascorbic Acid [Vitamin C] 500 mg PO DAILY 11/21/16 06/07/18 Ergocalciferol (Vitamin D2) 50,000 unit PO Q14D 11/21/16 06/07/18 [Vitamin D2] Fluticasone Nasal [place] [Flonase 2 spr EA NOSTRIL DAILY 11/21/16 06/07/18 Nasal [place]] Loratadine [Claritin] 10 mg PO DAILY 11/21/16 06/07/18 Sertraline [Zoloft] 50 mg PO DAILY 11/21/16 06/07/18 Previous Rx's Medication Instructions Recorded Metoprolol Tartrate [Lopressor] 12.5 mg PO BID #0 tab 04/18/17 Rivaroxaban [Xarelto] 20 mg PO DAILY #0 04/18/17 traMADol HCl [Ultram] 50 mg PO Q6H PRN #60 tab 04/18/17 Allergies Allergy/AdvReac Type Severity Reaction Status Date / Time No Known Allergies Allergy Verified 01/25/20 11:50 Review of Systems ROS Other: All systems not noted in ROS Statement are negative. <Satish Mathew - Last Filed: 01/25/20 15:16> ROS Other: All systems not noted in ROS Statement are negative. <Marcy Goodson - Last Filed: 01/25/20 15:34> ROS Statement: Those systems with pertinent positive or pertinent negative responses have been documented in the HPI. 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 History of Any Multi-Drug Resistant Organisms: None Reported Additional Past Surgical History / Comment(s): L nephrectomy, brain tumor removal, bilateral cataract removals, colonoscopy. Past Anesthesia/Blood Transfusion Reactions: No Reported Reaction Past Psychological History: Depression Smoking Status: Former smoker Past Alcohol Use History: None Reported Past Drug Use History: None Reported - Past Family History Father Family Medical History: No Reported History Additional Family Medical History / Comment(s): Father was healthy. He at the age of 62yrs in a MVA. Mother Additional Family Medical History / Comment(s): Mother at the age of 86yrs of "heart problems." <Marcy Goodson - Last Filed: 01/25/20 15:34> General Exam Limitations: no limitations <Marcy Goodson - Last Filed: 01/25/20 15:34> - General Exam Comments Initial Comments: General: The patient is awake and alert, in no distress Eye: Pupils are equal, round and reactive to light, extra-ocular movements are intact. No nystagmus. There is normal conjunctiva bilaterally. No signs of icterus. Ears, nose, mouth and throat: There are moist mucous membranes and no oral lesions. Neck: The neck is supple, there is no tenderness or JVD. Cardiovascular: There is a regular rate and rhythm. No murmur, rub or gallop is appreciated. Respiratory: Lungs are clear to auscultation, respirations are non-labored, breath sounds are equal. No wheezes, stridor, rales, or rhonchi. Gastrointestinal: Soft, non-distended, non-tender abdomen without masses or organomegaly noted. There is no rebound or guarding present. Musculoskeletal: Normal inspection of the right hip. There is no rotation or shortening noted. Refuses to fully range the right hip secondary to pain strength of the LE distal to hip knee ankle and foot intact. Patien thas full sensation of the LE b/l. Normal ROM, of the UE b/l some mild tenderness with ROM of the right elbow.Radial and DP Pulses equal bilaterally 2+. Neurological: A&O x 3. CN II-XII intact, There are no obvious motor or sensory deficits. Coordination appears grossly intact. Speech is normal. Skin: Skin is warm and dry and no rashes or lesions are noted. Psychiatric: Cooperative, appropriate mood & affect, normal judgment. (Marcy Goodson) Course <Satish Mathew - Last Filed: 01/25/20 15:16> Vital Signs 01/25/20 01/25/20 11:45 14:59 Temperature 98 F Pulse Rate 72 70 Respiratory 20 18 Rate Blood Pressure 132/90 113/77 O2 Sat by Pulse 91 L 98 Oximetry - Reevaluation(s) Reevaluation #1: 01/25/20 15:16 Case was discussed with Dr. San. He is aware of findings and presentation. He feels patient should be admitted medically and he will consult. He does request MRI. Case also discussed with Dr. Hair, covering for Dr. Putnam, who will admit and requests social work consult. (Satish Mathew) Medical Decision Making <Marcy Goodson - Last Filed: 01/25/20 15:34> - Medical Decision Making 84-year-old male presenting today for chief complaint of right hip pain after fall. Initially ambulating after fall. States pain too intense this morning to ambulate. Pt called EMS. No fracture on Xr/CT. Patient neurovascularly intact. Cannot ambulate with assistance in the Er. Trauma consulted, recommend admit to medicine. Dr Elam accepted admission. Rajwinder recommended MR wo contrast of the hip/pelvis. Patient agreeable to care plan and admission. (Marcy Goodson) Disposition <Satish Mathew - Last Filed: 01/25/20 15:16> Is patient prescribed a controlled substance at d/c from ED?: No Time of Disposition: 15:03 Decision to Admit Reason: Admit from EC Decision Date: 01/25/20 Decision Time: 15:03 <Marcy Goodson - Last Filed: 01/25/20 15:34> Clinical Impression: Fall, Right hip pain, Intractable pain Disposition: ADMITTED IP TO THIS [facility] Condition: Stable Referrals: Darvin Hurd DO [Primary Care Provider] - 1-2 days
[2020-01-25] MEDS ORDERED: MORPHINE SULFATE 4 MG/ML SYRINGE IVP PRN (15:42)
[2020-01-25] MEDS ORDERED: ACETAMINOPHEN TAB 325 MG TAB PO PRN (20:06)
[2020-01-25] MEDS: TAMSULOSIN 0.4 MG CAP.ER.24H PO SCH (21:20)
[2020-01-25] MEDS: FERROUS SULFATE 325 MG TAB PO SCH (21:20)
[2020-01-25] MEDS: CARBIDOPA-LEVODOPA 25-100 MG 1 EACH TAB PO SCH (21:20)
[2020-01-25 22:35] LABS: Glucose,Whole Blood 155 mg/dL (75-99)
[2020-01-26 07:32] LABS: Glucose,Whole Blood 132 mg/dL (75-99)
[2020-01-26] MEDS: ALLOPURINOL 100 MG TAB PO SCH (09:46)
[2020-01-26] MEDS: TAMSULOSIN 0.4 MG CAP.ER.24H PO SCH (09:46)
[2020-01-26] MEDS: CARBIDOPA-LEVODOPA 25-100 MG 1 EACH TAB PO SCH ×3 (09:46→20:10)
[2020-01-26] MEDS: SERTRALINE 50 MG TAB PO SCH (09:46)
[2020-01-26] MEDS: MULTIVITAMINS, THERA 1 EACH TAB PO SCH (09:46)
[2020-01-26] MEDS: FERROUS SULFATE 325 MG TAB PO SCH ×2 (09:46→20:10)
[2020-01-26 11:36] LABS: Glucose,Whole Blood 129 mg/dL (75-99)
--- NOTE | 2020-01-26 11:53 | MR ---
EXAMINATION TYPE: MR hip RT wo con DATE OF EXAM: 01/26/2020 COMPARISON: CT scan 01/25/2020 HISTORY: Right hip injury, inability to ambulate Standard multiplanar, multisequence MRI departmental protocol Multiplanar, multisequence images of the right hip were acquired. Diffusion weighted imaging was perf ormed. FINDINGS: Severe artifact results in a markedly limited exam. However, there is a large area of abnormal signal involving the lateral margin of the gluteus axis measuring 2.7 x 6.6 x 9.7 cm. The differential diag nosis would include an intramuscular tear with hematoma. Correlate clinically to rule out neoplasm. No definite marrow edema seen to suggest acute fracture. Degenerative change and facet arthropathy lo wer lumbar spine. Chronic bladder wall thickening suggestive of cholecystitis. Changes of chronic reginaldo tabular labral tear suggested. There is skin thickening and soft tissue edema on the right IMPRESSION: 1. Markedly limited exam due to artifact demonstrates no diagnostic evidence of fracture. However, th ere is diffuse subcutaneous edema and large area of intramuscular abnormal signal measuring 2.7 x 6.6 x 9.7 cm suspected within the gluteus morris muscle. Most likely etiology is an intramuscular injur y with hematoma. Correlate clinically.
--- NOTE | 2020-01-26 14:10 | P.HPIM ---
History of Present Illness H&P Date: 01/26/20 Chief Complaint: Fall, generalized weakness, pain and right hip This is an 84-year-old male patient of Dr. Hurd with past medical history of atrial fibrillation on Xarelto, COPD, diabetes mellitus type 2, hypertension, history of brain cancer in 2010 with surgery and radiation therapy, left nephrectomy due to deteriorating kidney, benign prostatic hypertrophy, chronic anemia, generalized arthritis. Patient states that he had a fall either on Friday or Friday he was trying to dump a barrel into a dumpster and lost his balance. He fell to the ground and could not get up. EMS had to be called and helped him get out. Patient denies having any loss of consciousness, head injury or neck injury. He did have pain in the right hip area. Yesterday he found that he could not get out of bed due to right hip pain and pain to the right buttocks. He came into [facility] emergency center for evaluation. He was afebrile, heart rate 72, blood pressure 132/90 pulse ox 91% on room air. Right elbow x-ray reveals no fracture or dislocation. Sitting is edema is seen over the olecranon and posterior distal right humerus. Right hip and pelvis x-ray showed no acute fracture or dislocation. CAT scan of the right hip revealed mild osteoarthritic degeneration. Patient was admitted to the [facility] floor and consult with Dr. San. He requested an MRI of the right hip which revealed limited exam due to artifact demonstrates no diagnostic evidence of fracture. There is diffuse subcutaneous edema and a large area of intramuscular abnormal signal measuring 2.7 x 6.6 x 9.7 cm suspected within the gluteus morris muscle. Most likely e tiology is a intramuscular injury with hematoma. Review of Systems Constitutional: Reports weakness, Denies chills, Denies fatigue, Denies fever, Denies lethargy, Denies malaise, Denies poor appetite Eyes: denies blurred vision, denies pain Ears, nose, mouth and throat: Denies dysphagia, Denies headache, Denies nasal congestion, Denies nasal discharge, Denies sore throat, Denies vertigo Cardiovascular: Denies chest pain, Denies decreased exercise tolerance, Denies dyspnea on exertion, Denies edema, Denies leg edema, Denies lightheadedness, Denies shortness of breath, Denies syncope Respiratory: Denies cough, Denies cough with sputum, Denies dyspnea, Denies excessive sputum, Denies hemoptysis, Denies home oxygen, Denies wheezing Gastrointestinal: Denies abdominal pain, Denies diarrhea, Denies loss of appetite, Denies nausea, Denies vomiting Genitourinary: Denies dysuria, Denies urinary retention Musculoskeletal: Reports gait dysfunction, Denies frequent falls, Denies myal gias Integumentary: Denies pruritus, Denies rash, Denies wounds Neurological: Denies change in mentation, Denies change in speech, Denies numbness, Denies seizures, Denies weakness Psychiatric: Denies anxiety, Denies depression Endocrine: Denies fatigue, Denies weight change Past Medical History Past Medical History: Atrial Fibrillation, Cancer, COPD, Diabetes Mellitus, Eye Disorder, Hearing Disorder / Deafness, Hypertension, Pneumonia, Prostate Disorder, Renal Disease Additional Past Medical History / Comment(s): 2009 Brain cancer with surgery and radiation, L nephrectomy d/t deteriorating kidney, BPH, anemia, diet controlled diabetes, generalized arthritis, 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 History of Any Multi-Drug Resistant Organisms: None Reported Additional Past Surgical History / Comment(s): L nephrectomy, brain tumor removal, bilateral cataract removals, colonoscopy. Past Anesthesia/Blood Transfusion Reactions: No Reported Reaction Past Psychological History: Depression Additional Psychological History / Comment(s): Pt resides with his spouse. He is independent. He drives. Smoking Status: Former smoker Past Alcohol Use History: None Reported Additional Past Alcohol Use History / Comment(s): Pt cannot recall when he started smoking but he quit smoking in 1977. Past Drug Use History: None Reported - Past Family History Father Family Medical History: No Reported History Additional Family Medical History / Comment(s): Father was healthy. He at the age of 62yrs in a MVA. Mother Additional Family Medical History / Comment(s): Mother at the age of 86yrs of "heart problems." Brother(s) Additional Family Medical History / Comment(s): Patient has 3 brothers and one is passed from old age. Patient has 4 sisters with no major medical problems. Patient had 2 children one from muscular dystrophy and one is alive with no major medical problems. Medications and Allergies Home Medications Medication Instructions Recorded Confirmed Type Ferrous Sulfate [Feosol] 325 mg PO BID 03/25/14 01/25/20 History Multivitamins, Thera [Multivitamin 1 tab PO DAILY 03/25/14 01/25/20 History (formulary)] Tamsulosin [Flomax] 0.4 mg PO BID 03/25/14 01/25/20 History Ascorbic Acid [Vitamin C] 500 mg PO BID 11/21/16 01/25/20 History Fluticasone Nasal [place] [Flonase 1 spr EA NOSTRIL DAILY 11/21/16 01/25/20 History Nasal [place]] Allopurinol [Zyloprim] 100 mg PO DAILY 01/25/20 01/25/20 History Calcitriol 0.25 mcg PO Q14D 01/25/20 01/25/20 History Carbidopa-Levodopa 25-100 mg 1 tab PO TID 01/25/20 01/25/20 History [Sinemet 25-100] Rivaroxaban [Xarelto] 15 mg PO DAILY 01/25/20 01/25/20 History Sertraline [Zoloft] 50 mg PO DAILY 01/25/20 01/25/20 History Allergies Allergy/AdvReac Type Severity Reaction Status Date / Time No Known Allergies Allergy Verified 01/25/20 18:27 Physical Exam Vitals: Vital Signs Temp Pulse Pulse Pulse Pulse Pulse Pulse 01/26/20 05:01 69 01/26/20 04:54 01/26/20 04:50 97.8 F 01/25/20 20:58 40 L 40 L 40 L 01/25/20 20:55 112 H 112 H 01/25/20 20:54 97.7 F 95 01/25/20 17:55 97.7 F 50 L 01/25/20 17:15 97.9 F 74 01/25/20 14:59 70 01/25/20 11:45 98 F 72 Pulse Pulse Pulse Resp BP BP BP 01/26/20 05:01 95/46 01/26/20 04:54 63 01/26/20 04:50 79 12 01/25/20 20:58 12 94/57 01/25/20 20:55 16 122/73 01/25/20 20:54 95 12 01/25/20 17:55 18 01/25/20 17:15 18 122/68 01/25/20 14:59 18 113/77 01/25/20 11:45 20 132/90 BP BP BP BP Pulse Ox 01/26/20 05:01 68 L 01/26/20 04:54 109/73 84 L 01/26/20 04:50 107/65 98 01/25/20 20:58 94/57 94/57 92 L 01/25/20 20:55 122/73 99 01/25/20 20:54 133/78 133/78 99 01/25/20 17:55 124/76 98 01/25/20 17:15 97 01/25/20 14:59 98 01/25/20 11:45 91 L Intake and Output 01/25/20 01/26/20 01/26/20 22:59 06:59 14:59 Other: # Voids 2 3 Weight 99.291 kg Gen: This is an 84-year-old male. Patient is found sitting on the edge of the bed and appears to be comfortable and in no acute distress.. HEENT: Head is atraumatic, normocephalic. Pupils equal, round. Sclerae is anicteric. NECK: Supple. No JVD. No lymphadenopathy. No thyromegaly. LUNGS: Clear to auscultation. No wheezes or rhonchi. No intercostal retractions. HEART: Regular rate and rhythm. Systolic murmur. ABDOMEN: Soft. Bowel sounds are present. No masses. No tenderness. EXTREMITIES: No pedal edema. No calf tenderness. Tenderness to the right buttocks area. Difficult bleeding from a sitting to standing position. NEUROLOGICAL: Patient is awake, alert and oriented x3. Cranial nerves 2 through 12 are grossly intact. Results Labs: Abnormal Lab Results - Last 24 Hours (Table) 01/25/20 01/26/20 Range/Units 22:35 07:29 POC Glucose (mg/dL) 155 H 132 H (75-99) mg/dL Thrombosis Risk Factor Assmnt - DVT/VTE Prophylaxis DVT/VTE Prophylaxis: Pharmacologic Prophylaxis ordered - Choose All That Apply Any of the Below Risk Factors Present?: Yes Each Factor Represents 1 point: Abnormal pulmonary function (COPD), Obesity (BMI >25) Other Risk Factors: Yes Each Risk Factor Represents 3 Points: Age 75 years or older Thrombosis Risk Factor Assessment Total Risk Factor Score: 5 Thrombosis Risk Factor Assessment Level: High Risk Assessment and Plan Plan: 1. Mechanical fall with subsequent right hip/right buttocks pain secondary to possible hematoma in the right buttocks. Orthopedic consult appreciated. PT and OT added. 2. Chronic atrial fibrillation. Continue Xarelto 50 mg daily. 3. Chronic kidney disease stage III. 4. Benign prostatic hypertrophy. Continue Flomax 0.4 mg daily 5. Anemia of chronic disease, stable. 6. Seasonal ALLERGIES. Continue Flonase. 7. Chronic gout. Continue allopurinol. 8. Recurrent depression. Continue Zoloft 50 mg daily. 9. DVT prophylaxis. Xarelto. 10. GI prophylaxis. Protonix. 11. COVID-19 testing in process. Patient will be admitted to the hospital for a minimum of 2 night stay. Discharge plan: To be determined. PT and OT on consult. Impression and plan of care have been directed as dictated by the signing physician. Cindy Tobias nurse practitioner acting as scribe for signing mariely cheung.
[2020-01-26] MEDS: RIVAROXABAN 15 MG TAB PO SCH (15:05)
[2020-01-26] MEDS: FLUTICASONE 50MCG/SPRAY NASAL 16GM EA NOSTRIL SCH (15:05)
--- NOTE | 2020-01-26 15:11 | P.CNOR ---
History of Present Illness - [facility] Consult date: 01/26/20 History of present illness: This patient is an 84- year old male with a past medical history of atrial fibrillation currently taking Xarelto, diabetes type 2, hypertension that presented to [facility] yesterday via EMS with complaints of right hip status-post fall. 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 He states he slipped and fell onto his right hip. EMS was called and helped the patient get up, and EMS was going to be brought to the hospital at that time, although he declined. He states he continued to ambulate on his hip with mild pain throughout the rest of the day and night, although he woke up this morning and was unable to get out of bed or ambulate secondary to the pain in his right hip. His called EMS, and patient was transported to [facility] ER. X-rays and CT scan of the right hip in the emergency department showed no obvious fractures. The patient was admitted under the care of internal medicine with a consult placed to orthopedic surgery for evaluation of right hip pain. At the time of my exam, the patient is complaining of isolated right hip pain. The patient states he has not yet been out of bed today. Although he states his pain has improved compared to yesterday. He denies pain in his right elbow. He denies pain anywhere else. He denies hitting his head during his fall. He denies back pain. He denies numbness, tingling, pain, or weakness of the bilateral lower extremities. He has no additional complaints. Vital signs stable. 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 History of Any Multi-Drug Resistant Organisms: None Reported Additional Past Surgical History / Comment(s): L nephrectomy, brain tumor removal, bilateral cataract removals, colonoscopy. Past Anesthesia/Blood Transfusion Reactions: No Reported Reaction Past Psychological History: Depression Additional Psychological History / Comment(s): Pt resides with his spouse. He is independent. He drives. Smoking Status: Former smoker Past Alcohol Use History: None Reported Additional Past Alcohol Use History / Comment(s): Pt cannot recall when he started smoking but he quit smoking in 1977. Past Drug Use History: None Reported - Past Family History Father Family Medical History: No Reported History Additional Family Medical History / Comment(s): Father was healthy. He at the age of 62yrs in a MVA. Mother Additional Family Medical History / Comment(s): Mother at the age of 86yrs of "heart problems." Brother(s) Additional Family Medical History / Comment(s): Patient has 3 brothers and one is passed from old age. Patient has 4 sisters with no major medical problems. Patient had 2 children one from muscular dystrophy and one is alive with no major medical problems. Medications and Allergies Home Medications Medication Instructions Recorded Confirmed Type Ferrous Sulfate [Feosol] 325 mg PO BID 03/25/14 01/25/20 History Multivitamins, Thera [Multivitamin 1 tab PO DAILY 03/25/14 01/25/20 History (formulary)] Tamsulosin [Flomax] 0.4 mg PO BID 03/25/14 01/25/20 History Ascorbic Acid [Vitamin C] 500 mg PO BID 11/21/16 01/25/20 History Fluticasone Nasal [place] [Flonase 1 spr EA NOSTRIL DAILY 11/21/16 01/25/20 History Nasal [place]] Allopurinol [Zyloprim] 100 mg PO DAILY 01/25/20 01/25/20 History Calcitriol 0.25 mcg PO Q14D 01/25/20 01/25/20 History Carbidopa-Levodopa 25-100 mg 1 tab PO TID 01/25/20 01/25/20 History [Sinemet 25-100] Rivaroxaban [Xarelto] 15 mg PO DAILY 01/25/20 01/25/20 History Sertraline [Zoloft] 50 mg PO DAILY 01/25/20 01/25/20 History Allergies Allergy/AdvReac Type Severity Reaction Status Date / Time No Known Allergies Allergy Verified 01/25/20 18:27 Physical Examination On examination, the patient lying in bed in no apparent distress. He is alert and orientated 3. His head appears normocephalic and atraumatic. His breathing appears nonlabored. On inspection of his left upper extremity, no obvious deformities signs of trauma. On inspection of the right upper extremity, there is moderate ecchymosis of the posteiolateral elbow. No open wounds or lacerations, skin is intact. There is no pain on palpation of the elbow, no pain with PROM of the elbow. On inspection of the left lower extremity, no obvious deformities or signs of trauma. On inspection of the right lower extremity, there is a large area of ecchymosis of the posterior right hip. No open wounds or lacerations. Skin is intact. This area is tender to palpation. The thigh is soft and compressible. No pain on palpation of the lateral hip, or anterior hip or groin. No pain on palpation of the thigh, knee, lower leg, ankle, foot. Mild pain with PROM of the right hip. Patient is able to perform a straight leg raise. No pain on palpation of the lumbar spine. Results Right hip x-ray 01/25/20: No acute fractures. CT scan right hip 01/25/20: No acute fractures. MRI right hip w/o contrast 01/25/20: No obvious fractures. Diffuse edema and large area of abnormal signal present intramuscular gluteus axis measuring 2.7cm x 6.6cm x 9.7 cm, most likely a hematoma. - Labs Labs: Abnormal Lab Results - Last 24 Hours (Table) 01/25/20 01/26/20 01/26/20 Range/Units 22:35 07:29 11:20 POC Glucose (mg/dL) 155 H 132 H 129 H (75-99) mg/dL Assessment and Plan Assessment: Hematoma, right hip Plan: - The clinical and imaging findings were discussed with the patient. The patient was discussed with Dr. San. Patient's pain is most likely secondary to hematoma formation of the right hip secondary to his fall. Conservative treatment is recommended at this time. - The patient may bear weight to tolerance on the right lower extremity with a walker. Recommend physical therapy for gait and balance training. - The application of moist heat may be beneficial. - Pain control per admitting team. - The patient may follow-up in the office in 2-3 weeks if he is still experienci ng pain in the hip at that time. We will follow patient peripherally while he remains inpatient.
[2020-01-26 17:10] LABS: Glucose,Whole Blood 137 mg/dL (75-99)
[2020-01-26 21:12] LABS: Glucose,Whole Blood 183 mg/dL (75-99)
[2020-01-27 07:16] LABS: HCT 22.2 % (39.0-53.0); Hypochromasia Slight; MCH 30.6 pg (25.0-35.0); MCHC 31.1 g/dL (31.0-37.0); MCV 98.2 fL (80.0-100.0); Mean Platelet Volume 13.5; RBC 2.27 m/uL (4.30-5.90); RDW 15.2 % (11.5-15.5); WBC 5.6 k/uL (3.8-10.6)
[2020-01-27 07:23] LABS: HGB 6.9 gm/dL (13.0-17.5)
[2020-01-27 07:28] LABS: Calcium 8.2 mg/dL (8.4-10.2); Potassium 4.4 mmol/L (3.5-5.1); Total Bilirubin 0.5 mg/dL (0.2-1.3); Total Protein 5.4 g/dL (6.3-8.2)
[2020-01-27 08:06] LABS: Platelet Count 67 k/uL (150-450)
[2020-01-27] MEDS: PANTOPRAZOLE 40 MG TABLET PO SCH (10:08)
[2020-01-27] MEDS: FERROUS SULFATE 325 MG TAB PO SCH ×2 (10:09→21:27)
[2020-01-27] MEDS: CARBIDOPA-LEVODOPA 25-100 MG 1 EACH TAB PO SCH ×3 (10:09→21:27)
[2020-01-27] MEDS: ALLOPURINOL 100 MG TAB PO SCH (10:09)
[2020-01-27] MEDS: MULTIVITAMINS, THERA 1 EACH TAB PO SCH (10:09)
[2020-01-27] MEDS: TAMSULOSIN 0.4 MG CAP.ER.24H PO SCH (10:09)
[2020-01-27] MEDS: SERTRALINE 50 MG TAB PO SCH (10:09)
[2020-01-27] MEDS: FLUTICASONE 50MCG/SPRAY NASAL 16GM EA NOSTRIL SCH (10:11)
[2020-01-27] MEDS: RIVAROXABAN 15 MG TAB PO SCH (10:11)
[2020-01-27 12:21] LABS: Glucose,Whole Blood 106 mg/dL (75-99)
[2020-01-27] MEDS: INSULIN ASPART (NovoLOG) 100 UNIT/ML VIAL SQ SCH ×3 (12:50→23:12)
--- NOTE | 2020-01-27 13:29 | P.PN ---
Subjective Progress Note Date: 01/27/20 This is an 84-year-old male patient of Dr. Hurd with past medical history of atrial fibrillation on Xarelto, COPD, diabetes mellitus type 2, hypertension, history of brain cancer in 2010 with surgery and radiation therapy, left nephrectomy due to deteriorating kidney, benign prostatic hype rtrophy, chronic anemia, generalized arthritis. Patient states that he had a fall either on Friday or Friday he was trying to dump a barrel into a dumpster and lost his balance. He fell to the ground and could not get up. EMS had to be called and helped him get out. Patient denies having any loss of consciousness, head injury or neck injury. He did have pain in the right hip area. Yesterday he found that he could not get out of bed due to right hip pain and pain to the right buttocks. He came into [facility] emergency center for evaluation. He was afebrile, heart rate 72, blood pressure 132/90 pulse ox 91% on room air. Right elbow x-ray reveals no fracture or dislocation. Sitting is edema is seen over the olecranon and posterior distal right humerus. Right hip and pelvis x-ray showed no acute fracture or dislocation. CAT scan of the right hip revealed mild osteoarthritic degeneration. [facility] and consult with Dr. San. He requested an MRI of the right hip which revealed limited exam due to artifact demonstrates no diagnostic evidence of fracture. There is diffuse subcutaneous edema and a large area of intramuscular abnormal signal measuring 2.7 x 6.6 x 9.7 cm suspected within the gluteus morris muscle. Most likely etiology is a intramuscular injury with hematoma. 01/26: This morning revealed hemoglobin 6.9 and patient will be transfused 1 unit of packed RBCs. BUN 43 and creatinine 1.65 which appears to be his baseline. Blood sugars are running between 106 and 183. Orthopedics is not planning for any surgical intervention. We will ask for repeat blood work this afternoon and in this morning to recheck hemoglobin. Stool will be checked for occult blood to make sure that anemia was not the reason for his fall. PT and OT evaluations today recommended subacute rehab and patient is willing to go to [facility]. Objective - Vital Signs Vital signs: Vital Signs Temp 98.1 F 01/27/20 05:33 Pulse 75 01/27/20 05:33 Resp 18 01/27/20 05:33 BP 106/70 01/27/20 05:33 Pulse Ox 98 01/27/20 05:33 Intake & Output 01/26/20 01/27/20 01/27/20 18:59 06:59 18:59 Intake Total 240 Output Total 100 200 Balance 140 -200 Intake: Oral 240 Output: Urine 100 200 Other: # Voids 3 2 - Exam Review of Systems Constitutional: Reports weakness, Denies chills, Denies fatigue, Denies fever, Denies lethargy, Denies malaise, Denies poor appetite Ears, nose, mouth and throat: Denies dysphagia, Denies headache, Denies nasal congestion, Denies nasal discharge, Denies sore throat, Denies vertigo Cardiovascular: Denies chest pain, Denies decreased exercise tolerance, Denies dyspnea on exertion, Denies edema, Denies leg edema, Denies lightheadedness, Denies shortness of breath, Denies syncope Respiratory: Denies cough, Denies cough with sputum, Denies dyspnea, Denies excessive sputum, Denies hemoptysis, Denies home oxygen, Denies wheezing Gastrointestinal: Denies abdominal pain, Denies diarrhea, Denies loss of appetite, Denies nausea, Denies vomiting Genitourinary: Denies dysuria, Denies urinary retention Musculoskeletal: Reports gait dysfunction, Denies frequent falls, Denies myalgias Integumentary: Denies pruritus, Denies rash, Denies wounds Neurological: Denies change in mentation, Denies change in speech, Denies numbness, Denies seizures, Denies weakness Psychiatric: Denies anxiety, Denies depression Endocrine: Denies fatigue, Denies weight change Physical Examination Gen: This is an 84-year-old male. Patient is resting and bed and appears to be comfortable and in no acute distress. HEENT: Head is atraumatic, normocephalic. Pupils equal, round. Sclerae is anicteric. NECK: Supple. No JVD. No lymphadenopathy. No thyromegaly. LUNGS: Clear to auscultation. No wheezes or rhonchi. No intercostal retractions. HEART: Regular rate and rhythm. Systolic murmur. ABDOMEN: Soft. Bowel sounds are present. No masses. No tenderness. EXTREMITIES: No pedal edema. No calf tenderness. Tenderness to the right buttocks area. NEUROLOGICAL: Patient is awake, alert and oriented x3. Cranial nerves 2 through 12 are grossly intact. - Labs CBC & Chem 7: 01/27/20 06:35 01/27/20 06:35 Labs: Abnormal Lab Results - Last 24 Hours (Table) 01/26/20 01/26/20 01/26/20 Range/Units 11:20 17:06 21:09 RBC (4.30-5.90) m/uL Hgb (13.0-17.5) gm/dL Hct (39.0-53.0) % Chloride (98-107) mmol/L BUN (9-20) mg/dL Creatinine (0.66-1.25) mg/dL Glucose (74-99) mg/dL POC Glucose (mg/dL) 129 H 137 H 183 H (75-99) mg/dL Calcium (8.4-10.2) mg/dL Total Protein (6.3-8.2) g/dL Albumin (3.5-5.0) g/dL 01/27/20 01/27/20 Range/Units 06:35 06:35 RBC 2.27 L (4.30-5.90) m/uL Hgb 6.9 L* (13.0-17.5) gm/dL Hct 22.2 L (39.0-53.0) % Chloride 110 H (98-107) mmol/L BUN 43 H (9-20) mg/dL Creatinine 1.65 H (0.66-1.25) mg/dL Glucose 124 H (74-99) mg/dL POC Glucose (mg/dL) (75-99) mg/dL Calcium 8.2 L (8.4-10.2) mg/dL Total Protein 5.4 L (6.3-8.2) g/dL Albumin 3.0 L (3.5-5.0) g/dL Assessment and Plan Plan: 1. Mechanical fall with subsequent right hip/right buttocks pain secondary to hematoma in the right buttocks. Orthopedic consult appreciated. PT and OT have recommended subacute rehab. 2. Acute blood loss anemia secondary to hematoma over the right buttocks, rule out GI bleed. Stool for occult blood to be obtained. Patient denies any bloody or tarry stools.. Patient will be transfused 1 unit of packed RBCs. Recheck hemoglobin this afternoon and in the morning. 2. Chronic atrial fibrillation. Continue Xarelto 50 mg daily. 3. Chronic kidney disease stage III. 4. Benign prostatic hypertrophy. Continue Flomax 0.4 mg daily 5. Anemia of chronic disease, stable. 6. Seasonal ALLERGIES. Continue Flonase. 7. Chronic gout. Continue allopurinol. 8. Recurrent depression. Continue Zoloft 50 mg daily. 9. DVT prophylaxis. Xarelto. 10. GI prophylaxis. Protonix. 11. COVID-19 infection not present. Discharge plan: [facility] on Friday Impression and plan of care have been directed as dictated by the signing physician. Cindy Tobias nurse practitioner acting as scribe for signing physician.
[2020-01-27 15:51] LABS: HCT 23.6 % (39.0-53.0); HGB 7.5 gm/dL (13.0-17.5); Hypochromasia Slight; MCH 30.9 pg (25.0-35.0); MCHC 31.7 g/dL (31.0-37.0); MCV 97.4 fL (80.0-100.0); Mean Platelet Volume 14.8; RBC 2.43 m/uL (4.30-5.90); RDW 15.1 % (11.5-15.5); WBC 6.5 k/uL (3.8-10.6)
[2020-01-27 16:11] LABS: Platelet Count 73 k/uL (150-450)
[2020-01-27 17:11] LABS: Glucose,Whole Blood 111 mg/dL (75-99)
[2020-01-28 00:32] LABS: Glucose,Whole Blood 137 mg/dL (75-99)
[2020-01-28 06:39] LABS: HCT 22.7 % (39.0-53.0); HGB 7.3 gm/dL (13.0-17.5); Hypochromasia Slight; MCH 31.5 pg (25.0-35.0); MCHC 32.2 g/dL (31.0-37.0); Mean Platelet Volume 14.4; RBC 2.32 m/uL (4.30-5.90); RDW 15.2 % (11.5-15.5); WBC 6.7 k/uL (3.8-10.6)
[2020-01-28 06:51] LABS: Platelet Count 73 k/uL (150-450)
[2020-01-28 06:56] LABS: Glucose,Whole Blood 135 mg/dL (75-99)
[2020-01-28] MEDS: ALLOPURINOL 100 MG TAB PO SCH (07:44)
[2020-01-28] MEDS: PANTOPRAZOLE 40 MG TABLET PO SCH (07:44)
[2020-01-28] MEDS: TAMSULOSIN 0.4 MG CAP.ER.24H PO SCH (07:44)
[2020-01-28] MEDS: FERROUS SULFATE 325 MG TAB PO SCH (07:44)
[2020-01-28] MEDS: SERTRALINE 50 MG TAB PO SCH (07:44)
[2020-01-28] MEDS: CARBIDOPA-LEVODOPA 25-100 MG 1 EACH TAB PO SCH (07:45)
[2020-01-28] MEDS: MULTIVITAMINS, THERA 1 EACH TAB PO SCH (07:45)
[2020-01-28] MEDS: RIVAROXABAN 15 MG TAB PO SCH (07:45)
[2020-01-28] MEDS: FLUTICASONE 50MCG/SPRAY NASAL 16GM EA NOSTRIL SCH (07:45)
[2020-01-28] MEDS: INSULIN ASPART (NovoLOG) 100 UNIT/ML VIAL SQ SCH ×2 (07:47→12:44)
--- NOTE | 2020-01-28 09:42 | P.DS ---
Providers Date of admission: 01/25/20 17:02 Expected date of discharge: 01/28/20 Attending physician: Kushal Elam Consults: 01/25/20 15:19 Consult Physician Routine Consulting Provider: Tigre San Consult Reason/Comments: fall, inability to ambulate Do you want consulting provider notified?: Already Contacted Primary care physician: [facility] Course: This is an 84-year-old male patient of Dr. Hurd with past medical history of atrial fibrillation on Xarelto, COPD, diabetes mellitus type 2, hypertension, history of brain cancer in 2009 with surgery and radiation therapy, left nephrectomy due to deteriorating kidney, benign prostatic hypertrophy, chronic anemia, generalized arthritis. Patient states that he had a fall either on Friday or Friday he was trying to dump a barrel into a dumpster and lost his balance. He fell to the ground and could not get up. EMS had to be called and helped him get out. Patient denies having any loss of consciousness, head injury or neck injury. He did have pain in the right hip area. Yesterday he found that he could not get out of bed due to right hip pain and pain to the right buttocks. He came into [facility] emergency center for evaluation. He was afebrile, heart rate 72, blood pressure 132/90 pulse ox 91% on room air. Right elbow x-ray reveals no fracture or dis location. Sitting is edema is seen over the olecranon and posterior distal right humerus. Right hip and pelvis x-ray showed no acute fracture or dislocation. CAT scan of the right hip revealed mild osteoarthritic degeneration. Patient was admitted to the [facility] floor and consult with Dr. San. He requested an MRI of the right hip which revealed limited exam due to artifact demonstrates no diagnostic evidence of fracture. There is diffuse subcutaneous edema and a large area of intramuscular abnormal signal measuring 2.7 x 6.6 x 9.7 cm suspected within the gluteus morris muscle. Most likely etiology is a intramuscular injury with hematoma. 01/26: This morning revealed hemoglobin 6.9 and patient will be transfused 1 unit of packed RBCs. BUN 43 and creatinine 1.65 which appears to be his baseline. Blood sugars are running between 106 and 183. Orthopedics is not planning for any surgical intervention. We will ask for repeat blood work this afternoon and in this morning to recheck hemoglobin. Stool will be checked for occult blood to make sure that anemia was not the reason for his fall. PT and OT evaluations today recommended subacute rehab and patient is willing to go to [facility]. 01/27: Repeat hemoglobins were 7.5 last evening at 7.3 this morning. We will give patient 1 more unit of blood and one dose of Ferrlecit IV prior to discharge. He continues to have significant difficulty moving due to pain and the right buttocks area. He does have significant ecchymosis. No signs of GI bleed. He has been afebrile, heart rate 88, blood pressure 122/71, pulse ox 97% on room air. Also noted a platelet count is 73 which is chronic for this patient. Patient will be discharged to [facility] in stable condition. Discharge diagnoses: 1. Mechanical fall with subsequent right hip/right buttocks pain secondary to hematoma in the right buttocks. 2. Acute blood loss anemia secondary to hematoma over the right buttocks. 3. Chronic atrial fibrillation. 4. Chronic kidney disease stage III. 5. Benign prostatic hypertrophy. 6. Anemia of chronic disease, stable. 7. Seasonal ALLERGIES. 8. Chronic gout. 9. Recurrent depression. 10. Chronic thrombocytopenia. 11. COVID-19 infection not present. Discharge plan: [facility] Impression and plan of care have been directed as dictated by the signing physician. Cindy Tobias nurse practitioner acting as scribe for signing physician. Patient Condition at Discharge: Good Plan - Discharge Summary New Discharge Prescriptions: Continue Tamsulosin [Flomax] 0.4 mg PO BID Multivitamins, Thera [Multivitamin (formulary)] 1 tab PO DAILY Ferrous Sulfate [Feosol] 325 mg PO BID Fluticasone Nasal [place] [Flonase Nasal [place]] 1 spr EA NOSTRIL DAILY Ascorbic Acid [Vitamin C] 500 mg PO BID Allopurinol [Zyloprim] 100 mg PO DAILY Sertraline [Zoloft] 50 mg PO DAILY Rivaroxaban [Xarelto] 15 mg PO DAILY Carbidopa-Levodopa 25-100 mg [Sinemet 25-100 mg] 1 tab PO TID Calcitriol 0.25 mcg PO Q14D Discharge Medication List Ferrous Sulfate [Feosol] 325 mg PO BID 03/25/14 [History] Multivitamins, Thera [Multivitamin (formulary)] 1 tab PO DAILY 03/25/14 [History] Tamsulosin [Flomax] 0.4 mg PO BID 03/25/14 [History] Ascorbic Acid [Vitamin C] 500 mg PO BID 11/21/16 [History] Fluticasone Nasal [place] [Flonase Nasal [place]] 1 spr EA NOSTRIL DAILY 11/21/16 [History] Allopurinol [Zyloprim] 100 mg PO DAILY 01/25/20 [History] Calcitriol 0.25 mcg PO Q14D 01/25/20 [History] Carbidopa-Levodopa 25-100 mg [Sinemet 25-100 mg] 1 tab PO TID 01/25/20 [History] Rivaroxaban [Xarelto] 15 mg PO DAILY 01/25/20 [History] Sertraline [Zoloft] 50 mg PO DAILY 01/25/20 [History] Follow up Appointment(s)/Referral(s): [facility], [NON-STAFF] - 1 Week Tigre San MD [Medical Doctor] - As Needed Darvin Hurd DO [Primary Care Provider] - 1 Week (After discharge from ECF.) Ambulatory/Diagnostic Orders: Basic Metabolic Panel [LAB.AMB] Location: None Selected Complete Blood Count w/diff [LAB.AMB] Location: None Selected Discharge Disposition: TRANSFER TO SNF/ECF
[2020-01-28 11:15] LABS: Glucose,Whole Blood 127 mg/dL (75-99)
[2020-01-28 12:42] VITALS: TEMP 98.5
[2020-01-28 13:31] VITALS: RESP 18
[2020-01-28 13:32] VITALS: BP 138/80; PULSE 91
== END 2020-01-28 15:45 | DRG 605 ==
LOC: EC 11:44 → 5NMEDONC 17:02
PROVIDERS: ADMIT Internal Medicine Geriatric Medicine; ATTEND Internal Medicine Geriatric Medicine
PROC: 30233N1 Transfusion of Nonautologous Red Blood Cells into Peripheral Vein, Percutaneous Approach (ICD-10-PCS; principal; 2020-01-27)
DX: S30.0XXA Contusion of lower back and pelvis, initial encounter (principal); D62 Acute posthemorrhagic anemia; F33.9 Major depressive disorder, recurrent, unspecified; I48.20 Chronic atrial fibrillation, unspecified; Y93.89 Activity, other specified; Y92.89 Other specified places as the place of occurrence of the external cause; D63.8 Anemia in other chronic diseases classified elsewhere; D69.6 Thrombocytopenia, unspecified; Z11.59 Encounter for screening for other viral diseases; E11.22 Type 2 diabetes mellitus with diabetic chronic kidney disease; H54.61 Unqualified visual loss, right eye, normal vision left eye; H91.92 Unspecified hearing loss, left ear; I12.9 Hypertensive chronic kidney disease with stage 1 through stage 4 chronic kidney disease, or unspecified chronic kidney disease; J30.2 Other seasonal allergic rhinitis; J44.9 Chronic obstructive pulmonary disease, unspecified; M13.0 Polyarthritis, unspecified; M1A.9XX0 Chronic gout, unspecified, without tophus (tophi); N18.3 Chronic kidney disease, stage 3 (moderate); N40.0 Benign prostatic hyperplasia without lower urinary tract symptoms; W01.0XXA Fall on same level from slipping, tripping and stumbling without subsequent striking against object, initial encounter; Z79.01 Long term (current) use of anticoagulants; Z79.02 Long term (current) use of antithrombotics/antiplatelets; Z79.899 Other long term (current) drug therapy; Z85.841 Personal history of malignant neoplasm of brain; Z87.891 Personal history of nicotine dependence; Z90.5 Acquired absence of kidney; Z92.3 Personal history of irradiation; Z87.01 Personal history of pneumonia (recurrent); Z98.42 Cataract extraction status, left eye; Z98.41 Cataract extraction status, right eye
CPT/HCPCS: 73502; 80053; 82272; 85027; 86850; 86900; 86901; 86920; 96372; 99285

== ENCOUNTER 2020-02-01 13:01 | Inpatient (IN) | payer MEDICARE ==
[2020-02-01] MEDS ORDERED: PANTOPRAZOLE 40 MG/10 ML VIAL IVP STA (13:32)
[2020-02-01] MEDS ORDERED: HUMAN PROTHROMBIN COMPLX 500 UNIT/16 ML VIAL IV ONE (13:57)
[2020-02-01 14:04] LABS: Partial Thromboplastin Time 30.6 sec (22.0-30.0); Prothrombin Time 10.7 sec (9.0-12.0)
--- NOTE | 2020-02-01 14:39 | ED ---
Recheck HPI <MathewSatish - Last Filed: 02/01/20 16:30> - General Source: patient, EMS Mode of arrival: EMS Limitations: no limitations <Pool Siddiqui - Last Filed: 02/01/20 18:35> <Jim Boston - Last Filed: 02/01/20 18:58> - General Chief Complaint: Recheck/Abnormal Lab/Rx Stated Complaint: Blood Transfusion Time Seen by Provider: 02/01/20 13:09 - History of Present Illness Initial Comments: Patient is an 85-year-old male with history of anemia presenting to the emergency department with a chief complaint of low hemoglobin. Patient brought to the ED via EMS. Patient lives in an assisted-living facility. Patient had lab work obtained today showing hemoglobin levels of 6.6. States she has noticed darker stool over the last few weeks. Denies any hematuria or hematochezia. Patient denies any chest pain or shortness of breath, pain nausea or vomiting at this time. States he was recently discharged on hospital for a fall. Patient denies any headaches, lightheaded and is, dizziness, visual changes, one-sided weakness or paresthesias. (Pool Siddiqui) - Related Data Home Medications Medication Instructions Recorded Confirmed Ferrous Sulfate [Feosol] 325 mg PO BID 03/25/14 02/01/20 Multivitamins, Thera [Multivitamin 1 tab PO HS 03/25/14 02/01/20 (formulary)] Tamsulosin [Flomax] 0.4 mg PO BID 03/25/14 02/01/20 Ascorbic Acid [Vitamin C] 500 mg PO BID 11/21/16 02/01/20 Fluticasone Nasal [place] [Flonase 1 spr EA NOSTRIL DAILY 11/21/16 02/01/20 Nasal [place]] Allopurinol [Zyloprim] 100 mg PO DAILY 01/25/20 02/01/20 Calcitriol 0.25 mcg PO Q14D 01/25/20 02/01/20 Carbidopa-Levodopa 25-100 mg 1 tab PO TID@0500,1300,2100 01/25/20 02/01/20 [Sinemet 25-100 mg] Rivaroxaban [Xarelto] 15 mg PO HS 01/25/20 02/01/20 Sertraline [Zoloft] 50 mg PO HS 01/25/20 02/01/20 Azithromycin [Zithromax Z-pack] See Taper PO DIRECTED 02/01/20 02/01/20 Benzonatate [Benzonatate [place]] 200 mg PO Q8H PRN 02/01/20 02/01/20 guaiFENesin [Mucinex] 600 mg PO Q12HR PRN 02/01/20 02/01/20 methylPREDNISolone [Medrol] See Taper PO DIRECTED 02/01/20 02/01/20 Allergies Allergy/AdvReac Type Severity Reaction Status Date / Time No Known Allergies Allergy Verified 02/01/20 15:07 Review of Systems ROS Other: All systems not noted in ROS Statement are negative. <Satish Mathew - Last Filed: 02/01/20 16:30> ROS Other: All systems not noted in ROS Statement are negative. <Pool Siddiqui - Last Filed: 02/01/20 18:35> ROS Other: All systems not noted in ROS Statement are negative. <Jim Boston - Last Filed: 02/01/20 18:58> ROS Statement: Those systems with pertinent positive or pertinent negative responses have been documented in the HPI. 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 History of Any Multi-Drug Resistant Organisms: None Reported Additional Past Surgical History / Comment(s): L nephrectomy, brain tumor removal, bilateral cataract removals, colonoscopy. Past Anesthesia/Blood Transfusion Reactions: No Reported Reaction Past Psychological History: Depression Smoking Status: Former smoker Past Alcohol Use History: None Reported Past Drug Use History: None Reported - Past Family History Father Family Medical History: No Reported History Additional Family Medical History / Comment(s): Father was healthy. He at the age of 62yrs in a MVA. Mother Additional Family Medical History / Comment(s): Mother at the age of 86yrs of "heart problems." Brother(s) Additional Family Medical History / Comment(s): Patient has 3 brothers and one is passed from old age. Patient has 4 sisters with no major medical problems. Patient had 2 children one from muscular dystrophy and one is alive with no major medical problems. <Pool Siddiqui - Last Filed: 02/01/20 18:35> General Exam Limitations: no limitations General appearance: alert, in no apparent distress Head exam: Present: atraumatic, normocephalic, normal inspection Eye exam: Present: normal appearance, PERRL, EOMI, scleral icterus Pupils: Present: normal accommodation ENT exam: Present: normal exam, normal oropharynx, mucous membranes moist, other (Pale mucous membranes) Neck exam: Present: normal inspection, full ROM Respiratory exam: Present: normal lung sounds bilaterally. Absent: respiratory distress, wheezes Cardiovascular Exam: Present: regular rate, normal rhythm, normal heart sounds Rectal exam: Present: normal inspection, normal rectal tone. Absent: black stool Extremities exam: Present: tenderness (Tenderness along the right hip and right upper thigh.), normal capillary refill, other (. 2 ulnar and radial pulses bilaterally. +2 dorsalis pedis and posterior tibialis bilaterally.). Absent: normal inspection (Ecchymosis noted on the right hip and right upper extremity.) Back exam: Present: normal inspection, full ROM Neurological exam: Present: alert, oriented X3 Psychiatric exam: Present: normal affect, normal mood Skin exam: Present: warm, dry, intact, normal color <ShawandalisandraPool - Last Filed: 02/01/20 18:35> Course <Jim Boston - Last Filed: 02/01/20 18:58> Vital Signs 02/01/20 02/01/20 02/01/20 13:20 15:02 15:12 Temperature 99.8 F H 98.5 F 98.8 F Pulse Rate 96 87 81 Respiratory 18 18 16 Rate Blood Pressure 117/64 105/85 113/58 O2 Sat by Pulse 96 97 97 Oximetry 02/01/20 02/01/20 02/01/20 15:42 16:30 17:06 Temperature 98.3 F 98.4 F Pulse Rate 76 76 68 Respiratory 18 18 18 Rate Blood Pressure 119/68 115/60 105/57 O2 Sat by Pulse 98 97 96 Oximetry 02/01/20 02/01/20 18:03 18:30 Temperature Pulse Rate 68 69 Respiratory 18 18 Rate Blood Pressure 116/71 118/61 O2 Sat by Pulse 98 96 Oximetry - Reevaluation(s) Reevaluation #1: 02/01/20 18:48 PA supervision: I personally evaluate this case patient did present with evidence of anemia did have a 6.3 hemoglobin. He did receive a transfusion. CAT scan does show evidence of a gluteal hematoma. I did discuss case Dr. Elam patient will be admitted Dr. Dixon also will be consulted (Jim Boston) Medical Decision Making <Satish Mathew - Last Filed: 02/01/20 16:30> - Lab Data Result diagrams: 02/01/20 13:00 02/01/20 13:00 <Pool Siddiqui - Last Filed: 02/01/20 18:35> - Lab Data Result diagrams: 02/01/20 13:00 02/01/20 13:00 <Jim Boston - Last Filed: 02/01/20 18:58> - Medical Decision Making Patient was also evaluated by myself, Dr. Mathew. Patient resting comfortably in bed without any complaints. Patient does have some ecchymosis right lower lumbar region extending to the right thigh. There is mild swelling of the right thigh. Case was discussed in detail with Dr. Elam who is familiar with this patient. He does request computed tomography scan to rule out expanding rectus sheath hematoma or similar. He states if computed tomography scan unremarkable complication can be discharged [facility]. (Satish Mathew) Patient is an 85-year-old male presenting to emergency Department with anemia. Revealed CBC reveals decreased hemoglobin to 6.3. Patient transfused one unit of blood. On exam patient on the right hip. Dr. Mathew spoke with who requested CT of abdomen and pelvis which reveals a hematoma and some bruising in the region. There is also mild L2 compression fracture to remains unchanged. There also appears to be increased infiltrates and atelectasis at the bilateral lung bases which increased compared to old examination. I spoke with who would like to admit the patient. Gen. surgery will also be consulted. Case discussed with Dr. Boston (Pool Siddiqui) - Lab Data Lab Results 02/01/20 02/01/20 02/01/20 Range/Units 13:00 13:00 13:31 WBC 6.6 (3.8-10.6) k/uL RBC 2.12 L (4.30-5.90) m/uL Hgb 6.3 L* (13.0-17.5) gm/dL Hct 20.9 L (39.0-53.0) % MCV 98.3 (80.0-100.0) fL MCH 29.9 (25.0-35.0) pg MCHC 30.4 L (31.0-37.0) g/dL RDW 15.6 H (11.5-15.5) % Plt Count 95 L (150-450) k/uL Neutrophils % 83 % Lymphocytes % 11 % Monocytes % 4 % Eosinophils % 1 % Basophils % 0 % Neutrophils # 5.5 (1.3-7.7) k/uL Lymphocytes # 0.7 L (1.0-4.8) k/uL Monocytes # 0.3 (0-1.0) k/uL Eosinophils # 0.1 (0-0.7) k/uL Basophils # 0.0 (0-0.2) k/uL Manual Slide Review Performed Large Platelets Present Hypochromasia Slight Poikilocytosis (manual Present Macrocytosis Slight PT (9.0-12.0) sec INR (<1.2) APTT (22.0-30.0) sec Sodium 135 L (137-145) mmol/L Potassium 4.8 (3.5-5.1) mmol/L Chloride 107 (98-107) mmol/L Carbon Dioxide 22 (22-30) mmol/L Anion Gap 6 mmol/L BUN 43 H (9-20) mg/dL Creatinine 1.44 H (0.66-1.25) mg/dL Est GFR (CKD-EPI)AfAm 51 (>60 ml/min/1.73 sqM) Est GFR (CKD-EPI)NonAf 44 (>60 ml/min/1.73 sqM) Glucose 182 H (74-99) mg/dL Calcium 8.2 L (8.4-10.2) mg/dL Magnesium (1.6-2.3) mg/dL Total Bilirubin 1.1 (0.2-1.3) mg/dL AST 17 (17-59) U/L ALT 6 (4-49) U/L Alkaline Phosphatase 54 (38-126) U/L Troponin I (0.000-0.034) ng/mL Total Protein 5.4 L (6.3-8.2) g/dL Albumin 2.9 L (3.5-5.0) g/dL Stool Occult Blood (Negative) Blood Type O Positive Blood Type Recheck O Pos Bld Type Recheck Status No Antibody Screen NEGATIVE Crossmatch See Detail Spec Expiration Date 02/04/2020233002/01/20 02/01/20 02/01/20 Range/Units 13:31 13:31 13:31 WBC (3.8-10.6) k/uL RBC (4.30-5.90) m/uL Hgb (13.0-17.5) gm/dL Hct (39.0-53.0) % MCV (80.0-100.0) fL MCH (25.0-35.0) pg MCHC (31.0-37.0) g/dL RDW (11.5-15.5) % Plt Count (150-450) k/uL Neutrophils % % Lymphocytes % % Monocytes % % Eosinophils % % Basophils % % Neutrophils # (1.3-7.7) k/uL Lymphocytes # (1.0-4.8) k/uL Monocytes # (0-1.0) k/uL Eosinophils # (0-0.7) k/uL Basophils # (0-0.2) k/uL Manual Slide Review Large Platelets Hypochromasia Poikilocytosis (manual Macrocytosis PT 10.7 (9.0-12.0) sec INR 1.0 (<1.2) APTT 30.6 H (22.0-30.0) sec Sodium (137-145) mmol/L Potassium (3.5-5.1) mmol/L Chloride (98-107) mmol/L Carbon Dioxide (22-30) mmol/L Anion Gap mmol/L BUN (9-20) mg/dL Creatinine (0.66-1.25) mg/dL Est GFR (CKD-EPI)AfAm (>60 ml/min/1.73 sqM) Est GFR (CKD-EPI)NonAf (>60 ml/min/1.73 sqM) Glucose (74-99) mg/dL Calcium (8.4-10.2) mg/dL Magnesium 2.0 (1.6-2.3) mg/dL Total Bilirubin (0.2-1.3) mg/dL AST (17-59) U/L ALT (4-49) U/L Alkaline Phosphatase (38-126) U/L Troponin I <0.012 (0.000-0.034) ng/mL Total Protein (6.3-8.2) g/dL Albumin (3.5-5.0) g/dL Stool Occult Blood (Negative) Blood Type Blood Type Recheck Bld Type Recheck Status Antibody Screen Crossmatch Spec Expiration Date 02/01/20 Range/Units 14:06 WBC (3.8-10.6) k/uL RBC (4.30-5.90) m/uL Hgb (13.0-17.5) gm/dL Hct (39.0-53.0) % MCV (80.0-100.0) fL MCH (25.0-35.0) pg MCHC (31.0-37.0) g/dL RDW (11.5-15.5) % Plt Count (150-450) k/uL Neutrophils % % Lymphocytes % % Monocytes % % Eosinophils % % Basophils % % Neutrophils # (1.3-7.7) k/uL Lymphocytes # (1.0-4.8) k/uL Monocytes # (0-1.0) k/uL Eosinophils # (0-0.7) k/uL Basophils # (0-0.2) k/uL Manual Slide Review Large Platelets Hypochromasia Poikilocytosis (manual Macrocytosis PT (9.0-12.0) sec INR (<1.2) APTT (22.0-30.0) sec Sodium (137-145) mmol/L Potassium (3.5-5.1) mmol/L Chloride (98-107) mmol/L Carbon Dioxide (22-30) mmol/L Anion Gap mmol/L BUN (9-20) mg/dL Creatinine (0.66-1.25) mg/dL Est GFR (CKD-EPI)AfAm (>60 ml/min/1.73 sqM) Est GFR (CKD-EPI)NonAf (>60 ml/min/1.73 sqM) Glucose (74-99) mg/dL Calcium (8.4-10.2) mg/dL Magnesium (1.6-2.3) mg/dL Total Bilirubin (0.2-1.3) mg/dL AST (17-59) U/L ALT (4-49) U/L Alkaline Phosphatase (38-126) U/L Troponin I (0.000-0.034) ng/mL Total Protein (6.3-8.2) g/dL Albumin (3.5-5.0) g/dL Stool Occult Blood Negative (Negative) Blood Type Blood Type Recheck Bld Type Recheck Status Antibody Screen Crossmatch Spec Expiration Date - EKG Data EKG Comments: A. fib. Ventricular rate 85, QRS 104, QTC 449. (Pool Siddiqui) Disposition <Satish Mathew - Last Filed: 02/01/20 16:30> Is patient prescribed a controlled substance at d/c from ED?: No Time of Disposition: 18:38 <Pool Siddiqui - Last Filed: 02/01/20 18:35> <Jim Boston - Last Filed: 02/01/20 18:58> Clinical Impression: Anemia, Hematoma Disposition: ADMITTED IP TO THIS HOSP Condition: Good Referrals: Darvin Hurd DO [Primary Care Provider] - 1-2 days
[2020-02-01] MEDS ORDERED: SODIUM CHLORIDE 0.9% 1,000 ML IV STA (16:34)
[2020-02-01 17:17] LABS: Basophils % (A) 0 %; Eosinophils # (A) 0.1 k/uL (0-0.7); Eosinophils % (A) 1 %; HCT 20.9 % (39.0-53.0); Hypochromasia Slight; Lymphocytes # (A) 0.7 k/uL (1.0-4.8); Lymphocytes % (A) 11 %; MCH 29.9 pg (25.0-35.0); MCHC 30.4 g/dL (31.0-37.0); MCV 98.3 fL (80.0-100.0); Macrocytosis Slight; Mean Platelet Volume 14.3; Monocytes # (A) 0.3 k/uL (0-1.0); Monocytes % (A) 4 %; Neutrophils # (A) 5.5 k/uL (1.3-7.7); Neutrophils % (A) 83 %; RBC 2.12 m/uL (4.30-5.90); RDW 15.6 % (11.5-15.5); WBC 6.6 k/uL (3.8-10.6)
[2020-02-01 17:19] LABS: HGB 6.3 gm/dL (13.0-17.5)
[2020-02-01 17:26] LABS: Albumin 2.9 g/dL (3.5-5.0); Calcium 8.2 mg/dL (8.4-10.2); Potassium 4.8 mmol/L (3.5-5.1); Total Bilirubin 1.1 mg/dL (0.2-1.3); Total Protein 5.4 g/dL (6.3-8.2)
[2020-02-01 17:34] LABS: Large Platelets Present; Platelet Count 95 k/uL (150-450); Poikilocytosis (M) Present
--- NOTE | 2020-02-01 18:29 | CT ---
EXAMINATION TYPE: CT abdomen pelvis w con DATE OF EXAM: 02/01/2020 COMPARISON: 02/26/2019 HISTORY: abdominal pain Right thigh pain CT DLP: 1982.5 mGycm Automated exposure control for dose reduction was used. CONTRAST: Performed with IV Contrast, patient injected with 80cc mL of Isovue 300. There is some interstitial infiltrates and atelectasis at both lung bases. Heart is moderately enlarg ed. There is no pericardial effusion. There is no pleural effusion. Liver and spleen appear intact. Bile ducts are not dilated. Stomach is intact. There is no evidence o f pancreatic mass. Gallbladder has normal size. There is no adrenal mass. Right kidney shows normal size and contour. There is no hydronephrosis. Lef t kidney is absent. There is no retroperitoneal adenopathy. Bladder distends smoothly. There is no in guinal hernia. There is no free fluid in the pelvis. There is no evidence of a pelvic mass. Appendix appears normal. There is no mesenteric edema. There is no ascites or free air. There is no sign of a bowel obstruction. Lumbar vertebra have fairly normal alignment. There is multilevel degenerative disc space narrowing. There is 20% anterior wedging of L2 vertebra. The bony pelvis appears intact. There are some sigmoid diverticula. There is no sign of diverticulitis. There is no mesenteric edema. There is no ascites or free air. There is no sign of bowel obstruction. There is increased density in the subcutaneous tissues posterior to the right gluteal muscles. IMPRESSION: Soft tissue swelling and fluid posterior to the right gluteal muscles consistent with hematoma and br uising. This is a change compared to old exam. Mild L2 compression fracture unchanged. Sigmoid diverticulosis. There are some infiltrates and atelec tasis at the lung bases increased compared to old exam. Moderate cardiomegaly unchanged.
[2020-02-01] MEDS ORDERED: MORPHINE SULFATE 4 MG/ML SYRINGE IV PRN (18:33)
[2020-02-01] MEDS ORDERED: ALPRAZolam 0.25 MG TAB PO PRN (18:33)
[2020-02-01] MEDS ORDERED: HYDROmorphone 0.5 MG/0.5 ML SYRINGE IVP PRN (18:33)
[2020-02-01] MEDS ORDERED: NALOXONE 0.4 MG/ML 1 ML VIAL IV PRN (18:33)
[2020-02-01] MEDS ORDERED: Kcentra PER PHARMACY 1 EACH MISC MISCELLANE PRN (19:03)
[2020-02-01] MEDS ORDERED: EMPTY BAG 1 BAG with HUMAN PROTHROMBIN COMPLX 2,236 UNIT IV ONE (19:15)
[2020-02-01 19:46] LABS: Anisocytosis Slight; Basophils % (A) 0 %; Eosinophils # (A) 0.1 k/uL (0-0.7); Eosinophils % (A) 1 %; HCT 22.9 % (39.0-53.0); HGB 7.1 gm/dL (13.0-17.5); Hypochromasia Marked; Lymphocytes # (A) 1.1 k/uL (1.0-4.8); Lymphocytes % (A) 18 %; MCH 30.9 pg (25.0-35.0); MCHC 31.2 g/dL (31.0-37.0); Macrocytosis Slight; Mean Platelet Volume 13.5; Monocytes # (A) 0.5 k/uL (0-1.0); Monocytes % (A) 8 %; Neutrophils # (A) 4.2 k/uL (1.3-7.7); Neutrophils % (A) 70 %; Platelet Count 102 k/uL (150-450); RBC 2.31 m/uL (4.30-5.90); RDW 16.5 % (11.5-15.5)
[2020-02-01] MEDS ORDERED: BENZONATATE 100 MG CAP PO PRN (22:00)
[2020-02-01] MEDS ORDERED: guaiFENesin 600 MG TABLET.ER PO PRN (22:00)
--- NOTE | 2020-02-01 22:46 | P.HPIM ---
History of Present Illness H&P Date: 02/01/20 Chief Complaint: Acute blood loss anemia, severe gluteal hematoma, severe pain in the right 85-year-old male one of Dr. Hurd patient who was admitted to [facility] on 01/25/2020 after he sustained a fall caused pain and discomfort in the right hip area was seen in the emergency department not been able to ambulate and walk x- ray failed to show any fracture ended up going for CAT scan did not show any fracture but showed large hematoma in the gluteal area from most likely hematoma from the trauma. Patient still not been able template to walk ended up going to [facility] the day he left the hospital his hemoglobin was still running around 8 g did not require any transfusion. Apparently with repeat CBC his hemoglobin came back at 6.2 patient was symptomatic very tired fatigue had significantly increased larger area of hematoma in the gluteal site and the buttocks area. Patient was sent to the emergency department at [facility] where was seen and evaluated his hemoglobin remained low patient was significantly symptomatic with anemia was giving 1 unit of blood transfusion been on Xarelto patient ended up receiving 1 dose of Kecentra as a human prothrombin complex and was seen by general surgery for his trauma. Ended up going for CT of the abdomen and pelvis finding were consistent with mild L2 compression sigmoid diverticuli and some infiltrate and atelectasis in the lung base with moderate cardiomegaly with significantly increased the density and subcutaneous tissue posterior to the right gluteal muscle this was significantly different from before. Patient will be admitted to the hospital after his blood transfusion will correct hemoglobin to above 8 g stabilized patient and if he is doing well hopefully will be transfer back to the [facility] in the 24- 48 hours. Review of Systems CONSTITUTIONAL: Well-developed no acute respiratory distress. EYES: No icterus sclerae, no conjunctivitis. EARS, NOSE, MOUTH, THROAT, and FACE: No sore throat, lymphadenopathy, carotid bruits or deformity. RESPIRATORY: Mild shortness of breath cough wheezes. CARDIOVASCULAR: Positive PND orthopnea palpitation with arrhythmia. GASTROINTESTINAL: No Abd pain, Nausea or vomiting, no Diarrhea or constipation, No GI Bleed, no distention or masses. GENITOURINARY: Mild symptom of UTI with polyuria and BPH. INTEGUMENT/BREAST: Negative for any muscular injury with mild osteoarthritis.. Large hematoma on the right gluteal area. HEMATOLOGIC/LYMPHATIC: Negative for bleed or purpura. MUSCULOSKELTAL: Negative for Myalgia or arthralgia. NEURLOGICAL: No LOC, Sz or syncope, blurred vision dizziness or abnormality.. Still have significant abnormal balancing gait. BEHAVIORAL/PSYCH: Negative. ENDOCRINE: Negative. 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 History of Any Multi-Drug Resistant Organisms: None Reported Additional Past Surgical History / Comment(s): L nephrectomy, brain tumor removal, bilateral cataract removals, colonoscopy. Past Anesthesia/Blood Transfusion Reactions: No Reported Reaction Past Psychological History: Depression Smoking Status: Former smoker Past Alcohol Use History: None Reported Past Drug Use History: None Reported - Past Family History Father Family Medical History: No Reported History Additional Family Medical History / Comment(s): Father was healthy. He at the age of 62yrs in a MVA. Mother Additional Family Medical History / Comment(s): Mother at the age of 86yrs of "heart problems." Brother(s) Additional Family Medical History / Comment(s): Patient has 3 brothers and one is passed from old age. Patient has 4 sisters with no major medical problems. Patient had 2 children one from muscular dystrophy and one is alive with no major medical problems. Medications and Allergies Home Medications Medication Instructions Recorded Confirmed Type Ferrous Sulfate [Feosol] 325 mg PO BID 03/25/14 02/01/20 History Multivitamins, Thera [Multivitamin 1 tab PO HS 03/25/14 02/01/20 History (formulary)] Tamsulosin [Flomax] 0.4 mg PO BID 03/25/14 02/01/20 History Ascorbic Acid [Vitamin C] 500 mg PO BID 11/21/16 02/01/20 History Fluticasone Nasal [place] [Flonase 1 spr EA NOSTRIL DAILY 11/21/16 02/01/20 History Nasal [place]] Allopurinol [Zyloprim] 100 mg PO DAILY 01/25/20 02/01/20 History Calcitriol 0.25 mcg PO Q14D 01/25/20 02/01/20 History Carbidopa-Levodopa 25-100 mg 1 tab PO TID@0500,1300,2100 01/25/20 02/01/20 History [Sinemet 25-100 mg] Rivaroxaban [Xarelto] 15 mg PO HS 01/25/20 02/01/20 History Sertraline [Zoloft] 50 mg PO HS 01/25/20 02/01/20 History Azithromycin [Zithromax Z-pack] See Taper PO DIRECTED 02/01/20 02/01/20 History Benzonatate [Benzonatate Perle] 200 mg PO Q8H PRN 02/01/20 02/01/20 History guaiFENesin [Mucinex] 600 mg PO Q12HR PRN 02/01/20 02/01/20 History methylPREDNISolone [Medrol] See Taper PO DIRECTED 02/01/20 02/01/20 History Allergies Allergy/AdvReac Type Severity Reaction Status Date / Time No Known Allergies Allergy Verified 02/01/20 15:07 Physical Exam Vitals: Vital Signs Temp Pulse Resp BP Pulse Ox 02/01/20 18:30 69 18 118/61 96 02/01/20 18:03 68 18 116/71 98 02/01/20 17:06 98.4 F 68 18 105/57 96 02/01/20 16:30 76 18 115/60 97 02/01/20 15:42 98.3 F 76 18 119/68 98 02/01/20 15:12 98.8 F 81 16 113/58 97 02/01/20 15:02 98.5 F 87 18 105/85 97 02/01/20 13:20 99.8 F H 96 18 117/64 96 Intake and Output 02/01/20 02/01/20 02/01/20 06:59 14:59 22:59 Intake Total 310 Balance 310 Intake: Blood Product 310 Rc As-1 Unit 310 [id number] Other: Weight 95.254 kg General Appearance: Alert, cooperative, no distress, appears stated age. Neck HEENT: Supple, no lymphadenopathy, no thyroid enlargement, no carotid bruits. Lungs: Clear to auscultation without crackles or wheezes no rhonchi, no deformity. Chest Wall: Decrease expansion with deep inspiration no tenderness and no deformity was found on exam, no costochondral pain or discomfort. Heart: Irregular rate and rhythm, S1, S2 positive history 2/6 ejection systolic murmur in the apex. Back: Symmetric, positive large hematoma and bruise in the right gluteal area and lumbar spine. Abdomen: Soft, non-tender, bowel sounds active all four quadrants, no masses, no organomegaly. Extremities: Still have limited range of motion in the right hip with significant bruises and large hematoma in the gluteal site on the lateral side of the leg. Pulses: 2+ and symmetric. Skin: Skin color, texture, tugor normal, no rashes or lesions. Neurologic: Alert oriented with slight confusion cranial nerves II through XII intact, positive normal balance and gait.. Results CBC & Chem 7: 02/01/20 19:38 02/01/20 13:00 Labs: Abnormal Lab Results - Last 24 Hours (Table) 02/01/20 02/01/20 02/01/20 Range/Units 13:00 13:00 13:31 RBC 2.12 L (4.30-5.90) m/uL Hgb 6.3 L* (13.0-17.5) gm/dL Hct 20.9 L (39.0-53.0) % MCHC 30.4 L (31.0-37.0) g/dL RDW 15.6 H (11.5-15.5) % Plt Count 95 L (150-450) k/uL Lymphocytes # 0.7 L (1.0-4.8) k/uL APTT (22.0-30.0) sec Sodium 135 L (137-145) mmol/L BUN 43 H (9-20) mg/dL Creatinine 1.44 H (0.66-1.25) mg/dL Glucose 182 H (74-99) mg/dL Calcium 8.2 L (8.4-10.2) mg/dL Total Protein 5.4 L (6.3-8.2) g/dL Albumin 2.9 L (3.5-5.0) g/dL Crossmatch See Detail 02/01/20 02/01/20 Range/Units 13:31 19:38 RBC 2.31 L (4.30-5.90) m/uL Hgb 7.1 L (13.0-17.5) gm/dL Hct 22.9 L (39.0-53.0) % MCHC (31.0-37.0) g/dL RDW 16.5 H (11.5-15.5) % Plt Count 102 L (150-450) k/uL Lymphocytes # (1.0-4.8) k/uL APTT 30.6 H (22.0-30.0) sec Sodium (137-145) mmol/L BUN (9-20) mg/dL Creatinine (0.66-1.25) mg/dL Glucose (74-99) mg/dL Calcium (8.4-10.2) mg/dL Total Protein (6.3-8.2) g/dL Albumin (3.5-5.0) g/dL Crossmatch Thrombosis Risk Factor Assmnt - DVT/VTE Prophylaxis DVT/VTE Prophylaxis: Mechanical Prophylaxis ordered Assessment and Plan Assessment: 1 acute blood loss anemia: Most likely from large hematoma in the gluteal side and possible the rectosheath area in the right side, general surgery, continue to watch for any increase in bleed and if needed can repeat CAT scan in few days, patient will have blood transfusion correct blood loss up to 8g for discharge back to the [facility]. 2 large size hematoma: Patient will have conservative management ice pack with the severity of the bleeding specially with a Chin been on anticoagulation kcentra 1 dose was giving watch for any more bleed we'll hold his Xarelto for the next 5 days. 3 COPD: Without excessive patient patient will continue on O2 and Ventolin on an as-needed basis. 4 A. fib with RVR: Pulse rates under control currently patient is not on any but beta tariq but he was on anticoagulation which will be held for now. 5 arcus and disease: Continue patient on carbidopa levodopa. 6 BPH: Continue Flomax. 7 recent history of UTI: Was treated and complete antibiotics. 8 chronic depression: Has been on alprazolam and Zoloft. 9 acute kidney injury: Mild hydration repeat BUN/creatinine 24 hours. 10 type 2 diabetes: Patient has not been on any medication continue Accu-Chek with sliding scales coverage. 11 right hip injury: With no fracture patient is putting slight weight with physical therapy. 12 GI prophylaxis: Patient will be on Pepcid 20 mg twice a day. 13 DVT prophylaxis: Was on anticoagulation but will do knee-high JARRET hose and early mobilization. CODE STATUS: Full code. Admit patient to inpatient status for more than 2 nights.
[2020-02-02] MEDS: CARBIDOPA-LEVODOPA 25-100 MG 1 EACH TAB PO SCH ×4 (06:44→20:10)
[2020-02-02 06:48] LABS: Albumin 2.8 g/dL (3.5-5.0); Potassium 4.6 mmol/L (3.5-5.1); Total Bilirubin 1.2 mg/dL (0.2-1.3); Total Protein 5.2 g/dL (6.3-8.2)
[2020-02-02 06:59] LABS: Anisocytosis Slight; Basophils % (A) 0 %; Eosinophils # (A) 0.1 k/uL (0-0.7); Eosinophils % (A) 2 %; HCT 22.4 % (39.0-53.0); HGB 7.1 gm/dL (13.0-17.5); Hypochromasia Moderate; Lymphocytes # (A) 1.2 k/uL (1.0-4.8); Lymphocytes % (A) 19 %; MCH 30.8 pg (25.0-35.0); MCHC 31.8 g/dL (31.0-37.0); MCV 97.1 fL (80.0-100.0); Macrocytosis Slight; Mean Platelet Volume 13.6; Monocytes # (A) 0.5 k/uL (0-1.0); Monocytes % (A) 7 %; Neutrophils # (A) 4.4 k/uL (1.3-7.7); Neutrophils % (A) 70 %; RBC 2.31 m/uL (4.30-5.90); RDW 16.8 % (11.5-15.5); WBC 6.3 k/uL (3.8-10.6)
[2020-02-02 07:15] LABS: Platelet Count 94 k/uL (150-450); Poikilocytosis (M) Present
[2020-02-02 07:51] LABS: Glucose,Whole Blood 157 mg/dL (75-99)
[2020-02-02] MEDS: FERROUS SULFATE 325 MG TAB PO SCH ×2 (08:39→20:10)
[2020-02-02] MEDS: FAMOTIDINE 20 MG TAB PO SCH (08:39)
[2020-02-02] MEDS: ASCORBIC ACID 500 MG TAB PO SCH ×3 (08:39→20:10)
[2020-02-02] MEDS: ALLOPURINOL 100 MG TAB PO SCH (08:40)
[2020-02-02] MEDS: TAMSULOSIN 0.4 MG CAP.ER.24H PO SCH ×2 (08:40→20:10)
[2020-02-02] MEDS: FLUTICASONE 50MCG/SPRAY NASAL 16GM EA NOSTRIL SCH (08:41)
[2020-02-02] MEDS ORDERED: CALCITRIOL 0.25 MCG CAP PO SCH (09:00)
[2020-02-02] MEDS ORDERED: FUROSEMIDE 10 MG/ML 4 ML VIAL IV STA (13:44)
--- NOTE | 2020-02-02 13:56 | P.PN ---
Subjective Progress Note Date: 02/02/20 85-year-old male one of Dr. Hurd patient who was admitted to [facility] on 01/25/2020 after he sustained a fall caused pain and discomfort in the right hip area was seen in the emergency department not been able to ambulate and walk x- ray failed to show any fracture ended up going for CAT scan did not show any fracture but showed large hematoma in the gluteal area from most likely hematoma from the trauma. Patient still not been able template to walk ended up going to skilled nursing rehab the day he left the hospital his hemoglobin was still running around 8 g did not require any transfusion. Apparently with repeat CBC his hemoglobin came back at 6.2 patient was symptomatic very tired fatigue had significantly increased larger area of hematoma in the gluteal site and the buttocks area. Patient was sent to the emergency department at [facility] where was seen and evaluated his hemoglobin remained low patient was significantly symptomatic with anemia was giving 1 unit of blood transfusion been on Xarelto patient ended up receiving 1 dose of Kecentra as a human prothrombin complex and was seen by general surgery for his trauma. Ended up going for CT of the abdomen and pelvis finding were consistent with mild L2 compression sigmoid diverticuli and some infiltrate and atelectasis in the lung base with moderate cardiomegaly with significantly increased the density and subcutaneous tissue posterior to the right gluteal muscle this was significantly different from before. Patient will be admitted to the hospital after his blood transfusion will correct hemoglobin to above 8 g stabilized patient and if he is doing well hopefully will be transfer back to the skilled nursing rehab in the 24- 48 hours. 02/01: The patient is seen today in follow-up. He remains in the [facility] a bed [facility] the [facility] floor. He is status post Kcentra and Xarelto was discontinued. Repeat hemoglobin is 7.1 after 1 unit of packed RBCs and will be transfused another unit of packed RBCs. Lasix 40 mg IV push will be given after an IV fluids discontinued. Patient is using incentive spirometry. PT and OT are on and plan is to repeat hemoglobin this this afternoon and in the morning, if stable, patient will be discharged back to [facility]. The patient will remain off Xarelto. Review of Systems CONSTITUTIONAL: Well-developed no acute respiratory distress. Denies fever, denies chills. EYES: No icterus sclerae, no conjunctivitis. EARS, NOSE, MOUTH, THROAT, and FACE: No sore throat, lymphadenopathy, carotid bruits or deformity. RESPIRATORY: Mild shortness of breath cough wheezes. CARDIOVASCULAR: Positive PND orthopnea palpitation with arrhythmia. GASTROINTESTINAL: No Abd pain, Nausea or vomiting, no Diarrhea or constipation, No GI Bleed, no distention or masses. GENITOURINARY: M BPH. INTEGUMENT/BREAST: Negative for any muscular injury with mild osteoarthritis.. Large hematoma on the right gluteal area. HEMATOLOGIC/LYMPHATIC: Negative for bleed or purpura. MUSCULOSKELTAL: Negative for Myalgia or arthralgia. Pain right hip, right bu ttocks NEURLOGICAL: No LOC, Sz or syncope, blurred vision dizziness or abnormality.. Still have significant abnormal balancing gait. BEHAVIORAL/PSYCH: Negative. ENDOCRINE: Negative. Physical Examination General Appearance: Alert, cooperative, no distress, appears stated age. Neck HEENT: Supple, no lymphadenopathy, no thyroid enlargement, no carotid bruits. Lungs: Clear to auscultation without crackles or wheezes no rhonchi, no deformity. Chest Wall: Decrease expansion with deep inspiration no tenderness and no deformity was found on exam, no costochondral pain or discomfort. Heart: Irregular rate and rhythm, S1, S2 positive history 2/6 ejection systolic murmur in the apex. Back: Symmetric, positive large hematoma and bruise in the right gluteal area and lumbar spine. Abdomen: Soft, non-tender, bowel sounds active all four quadrants, no masses, no organomegaly. Extremities: Still have limited range of motion in the right hip with significant bruises and large hematoma in the gluteal site on the lateral side of the leg with extending ecchymosis. Pulses: 2+ and symmetric. Skin: Skin color, texture, tugor normal, no rashes or lesions. Neurologic: Alert oriented with slight confusion cranial nerves II through XII intact, positive normal balance and gait.. Assessment and plan 1 acute blood loss anemia: Most likely from large hematoma in the gluteal side and possible the recto sheath area in the right side, general surgery consult, continue to watch for any increase in bleed and if needed can repeat CAT scan. Patient is status post 1 unit packed RBCs and a repeat unit 1 ordered for today, Lasix 40 mg IV push 1, repeat hemoglobin this afternoon and in the morning. Do not anticipate surgical intervention. 2 large size hematoma: Patient will have conservative management ice pack, status post kcentra 1 dose was giving watch for any more bleed we'll hold his Xarelto for the next 5 days. 3 COPD: Without exacerbation. Continue on O2 and Ventolin on an as-needed basis. 4. Chronic atrial fibrillation: Pulse rates under control currently patient is not on any but beta tariq but he was on anticoagulation which will be held for now. 5 arcus and disease: Continue patient on carbidopa levodopa. 6 BPH: Continue Flomax. 7 recent history of UTI: Was treated and complete antibiotics. 8 recurrent depression: Has been on alprazolam and Zoloft. 9. Chronic kidney disease stage III. 10 type 2 diabetes: Patient has not been on any medication continue Accu-Chek with sliding scales coverage. 11 right hip injury: With no fracture patient is putting slight weight with physical therapy. 12 GI prophylaxis: Patient will be on Pepcid 20 mg twice a day. 13 DVT prophylaxis: Knee-high JARRET hose and early mobilization. 14:19 testing in process CODE STATUS: Full code. Discharge plan: Return to [facility] tomorrow Impression and plan of care have been directed as dictated by the signing physician. Cindy Tobias nurse practitioner acting as scribe for signing physician. Objective - Vital Signs Vital signs: Vital Signs Temp 98.6 F 02/02/20 02:04 Pulse 89 02/02/20 02:04 Resp 16 02/02/20 02:04 BP 119/66 02/02/20 02:04 Pulse Ox 92 L 02/02/20 02:04 Intake & Output 02/01/20 02/02/20 02/02/20 18:59 06:59 18:59 Intake Total 310 300 Balance 310 300 Weight 95.254 kg Intake: Intake, IV Titration 300 Amount Sodium Chloride 0.9% 1, 300 000 ml @ 75 mls/hr IV . [id number] [facility] Rx#:[id number] Blood Product 310 Rc As-1 Unit 310 [id number] - Labs CBC & Chem 7: 02/02/20 05:52 02/02/20 05:52 Labs: Abnormal Lab Results - Last 24 Hours (Table) 02/01/20 02/01/20 02/01/20 Range/Units 13:00 13:00 13:31 RBC 2.12 L (4.30-5.90) m/uL Hgb 6.3 L* (13.0-17.5) gm/dL Hct 20.9 L (39.0-53.0) % MCHC 30.4 L (31.0-37.0) g/dL RDW 15.6 H (11.5-15.5) % Plt Count 95 L (150-450) k/uL Lymphocytes # 0.7 L (1.0-4.8) k/uL APTT (22.0-30.0) sec Sodium 135 L (137-145) mmol/L Chloride (98-107) mmol/L BUN 43 H (9-20) mg/dL Creatinine 1.44 H (0.66-1.25) mg/dL Glucose 182 H (74-99) mg/dL POC Glucose (mg/dL) (75-99) mg/dL Calcium 8.2 L (8.4-10.2) mg/dL AST (17-59) U/L Total Protein 5.4 L (6.3-8.2) g/dL Albumin 2.9 L (3.5-5.0) g/dL Crossmatch See Detail 02/01/20 02/01/20 02/02/20 Range/Units 13:31 19:38 05:52 RBC 2.31 L 2.31 L (4.30-5.90) m/uL Hgb 7.1 L 7.1 L (13.0-17.5) gm/dL Hct 22.9 L 22.4 L (39.0-53.0) % MCHC (31.0-37.0) g/dL RDW 16.5 H 16.8 H (11.5-15.5) % Plt Count 102 L 94 L (150-450) k/uL Lymphocytes # (1.0-4.8) k/uL APTT 30.6 H (22.0-30.0) sec Sodium (137-145) mmol/L Chloride (98-107) mmol/L BUN (9-20) mg/dL Creatinine (0.66-1.25) mg/dL Glucose (74-99) mg/dL POC Glucose (mg/dL) (75-99) mg/dL Calcium (8.4-10.2) mg/dL AST (17-59) U/L Total Protein (6.3-8.2) g/dL Albumin (3.5-5.0) g/dL Crossmatch 02/02/20 02/02/20 Range/Units 05:52 07:46 RBC (4.30-5.90) m/uL Hgb (13.0-17.5) gm/dL Hct (39.0-53.0) % MCHC (31.0-37.0) g/dL RDW (11.5-15.5) % Plt Count (150-450) k/uL Lymphocytes # (1.0-4.8) k/uL APTT (22.0-30.0) sec Sodium (137-145) mmol/L Chloride 111 H (98-107) mmol/L BUN 41 H (9-20) mg/dL Creatinine 1.40 H (0.66-1.25) mg/dL Glucose 124 H (74-99) mg/dL POC Glucose (mg/dL) 157 H (75-99) mg/dL Calcium 8.0 L (8.4-10.2) mg/dL AST 16 L (17-59) U/L Total Protein 5.2 L (6.3-8.2) g/dL Albumin 2.8 L (3.5-5.0) g/dL Crossmatch
--- NOTE | 2020-02-02 15:52 | P.GSCN ---
History of Present Illness Consult date: 02/02/20 Reason for Consult: Anemia, hematoma History of present illness: This 85-year-old male who was admitted to the emergency room with anemia. Leslie hutchison has a large right gluteal hematoma related to previous trauma. Patient was on withdrawal scope. Patient received 1 unit of packed red cells less than 07.1. His his relative has been discontinued. He received [facility] last night. Past Medical History Past Medical History: Atrial Fibrillation, Cancer, COPD, Diabetes Mellitus, Eye Disorder, Hearing Disorder / Deafness, Hypertension, Pneumonia, Prostate Disorder, Renal Disease Additional Past Medical History / Comment(s): Pt recently admitted to [facility] on 01/25/20 with a mechanical fall/hematoma R buttock and acute blood loss anemia. Other hx: 2010 Brain cancer with surgery and radiation, L nephrectomy d/t deteriorating kidney, CKD stage III, BPH, chronic thrombocytopenia, chronic anemia, diet controlled diabetes, generalized arthritis, L2 compression fracture, blind R eye, CHITINA blaterally, seasonal allergies History of Any Multi-Drug Resistant Organisms: None Reported Additional Past Surgical History / Comment(s): L nephrectomy, brain tumor removal, bilateral cataract removals, colonoscopy. Past Anesthesia/Blood Transfusion Reactions: No Reported Reaction Additional Past Anesthesia/Blood Transfusion Reaction / Comm: Pt has received blood in past without reaction. Smoking Status: Former smoker - Past Family History Father Family Medical History: No Reported History Additional Family Medical History / Comment(s): Father was healthy. He at the age of 62yrs in a MVA. Mother Additional Family Medical History / Comment(s): Mother at the age of 86yrs of "heart problems." Brother(s) Additional Family Medical History / Comment(s): Patient has 3 brothers and one is passed from old age. Patient has 4 sisters with no major medical problems. Patient had 2 children one from muscular dystrophy and one is alive with no major medical problems. Medications and Allergies Home Medications Medication Instructions Recorded Confirmed Type Ferrous Sulfate [Feosol] 325 mg PO BID 03/25/14 02/01/20 History Multivitamins, Thera [Multivitamin 1 tab PO HS 03/25/14 02/01/20 History (formulary)] Tamsulosin [Flomax] 0.4 mg PO BID 03/25/14 02/01/20 History Ascorbic Acid [Vitamin C] 500 mg PO BID 11/21/16 02/01/20 History Fluticasone Nasal [place] [Flonase 1 spr EA NOSTRIL DAILY 11/21/16 02/01/20 History Nasal [place]] Allopurinol [Zyloprim] 100 mg PO DAILY 01/25/20 02/01/20 History Calcitriol 0.25 mcg PO Q14D 01/25/20 02/01/20 History Carbidopa-Levodopa 25-100 mg 1 tab PO TID@0500,1300,2100 01/25/20 02/01/20 Hi story [Sinemet 25-100 mg] Rivaroxaban [Xarelto] 15 mg PO HS 01/25/20 02/01/20 History Sertraline [Zoloft] 50 mg PO HS 01/25/20 02/01/20 History Azithromycin [Zithromax Z-pack] See Taper PO DIRECTED 02/01/20 02/01/20 History Benzonatate [Benzonatate Perle] 200 mg PO Q8H PRN 02/01/20 02/01/20 History guaiFENesin [Mucinex] 600 mg PO Q12HR PRN 02/01/20 02/01/20 History methylPREDNISolone [Medrol] See Taper PO DIRECTED 02/01/20 02/01/20 History Allergies Allergy/AdvReac Type Severity Reaction Status Date / Time No Known Allergies Allergy Verified 02/01/20 15:07 Surgical - Exam Vital Signs Temp Pulse Resp BP Pulse Ox 99.8 F H 96 18 117/64 96 02/01/20 13:20 02/01/20 13:20 02/01/20 13:20 02/01/20 13:20 02/01/20 13:20 - General well developed, no distress - Eyes PERRL - ENT normal pinna - Neck no masses - Respiratory normal expansion - Cardiovascular Rhythm: regular - Abdomen Abdomen: soft, non tender - Integumentary Large amount of ecchymosis and hematoma left gluteal area extending onto the leg. Results - Labs 02/02/20 05:52 02/02/20 05:52 Abnormal Lab Results - Last 24 Hours (Table) 02/01/20 02/01/20 02/01/20 Range/Units 13:00 13:00 13:31 RBC 2.12 L (4.30-5.90) m/uL Hgb 6.3 L* (13.0-17.5) gm/dL Hct 20.9 L (39.0-53.0) % MCHC 30.4 L (31.0-37.0) g/dL RDW 15.6 H (11.5-15.5) % Plt Count 95 L (150-450) k/uL Lymphocytes # 0.7 L (1.0-4.8) k/uL Sodium 135 L (137-145) mmol/L Chloride (98-107) mmol/L BUN 43 H (9-20) mg/dL Creatinine 1.44 H (0.66-1.25) mg/dL Glucose 182 H (74-99) mg/dL POC Glucose (mg/dL) (75-99) mg/dL Calcium 8.2 L (8.4-10.2) mg/dL AST (17-59) U/L Total Protein 5.4 L (6.3-8.2) g/dL Albumin 2.9 L (3.5-5.0) g/dL Crossmatch See Detail 02/01/20 02/02/20 02/02/20 Range/Units 19:38 05:52 05:52 RBC 2.31 L 2.31 L (4.30-5.90) m/uL Hgb 7.1 L 7.1 L (13.0-17.5) gm/dL Hct 22.9 L 22.4 L (39.0-53.0) % MCHC (31.0-37.0) g/dL RDW 16.5 H 16.8 H (11.5-15.5) % Plt Count 102 L 94 L (150-450) k/uL Lymphocytes # (1.0-4.8) k/uL Sodium (137-145) mmol/L Chloride 111 H (98-107) mmol/L BUN 41 H (9-20) mg/dL Creatinine 1.40 H (0.66-1.25) mg/dL Glucose 124 H (74-99) mg/dL POC Glucose (mg/dL) (75-99) mg/dL Calcium 8.0 L (8.4-10.2) mg/dL AST 16 L (17-59) U/L Total Protein 5.2 L (6.3-8.2) g/dL Albumin 2.8 L (3.5-5.0) g/dL Crossmatch 02/02/20 Range/Units 07:46 RBC (4.30-5.90) m/uL Hgb (13.0-17.5) gm/dL Hct (39.0-53.0) % MCHC (31.0-37.0) g/dL RDW (11.5-15.5) % Plt Count (150-450) k/uL Lymphocytes # (1.0-4.8) k/uL Sodium (137-145) mmol/L Chloride (98-107) mmol/L BUN (9-20) mg/dL Creatinine (0.66-1.25) mg/dL Glucose (74-99) mg/dL POC Glucose (mg/dL) 157 H (75-99) mg/dL Calcium (8.4-10.2) mg/dL AST (17-59) U/L Total Protein (6.3-8.2) g/dL Albumin (3.5-5.0) g/dL Crossmatch Diabetes panel 02/01/20 02/02/20 Range/Units 13:00 05:52 Sodium 135 L 139 (137-145) mmol/L Potassium 4.8 4.6 (3.5-5.1) mmol/L Chloride 107 111 H (98-107) mmol/L Carbon Dioxide 22 24 (22-30) mmol/L BUN 43 H 41 H (9-20) mg/dL Creatinine 1.44 H 1.40 H (0.66-1.25) mg/dL Glucose 182 H 124 H (74-99) mg/dL Calcium 8.2 L 8.0 L (8.4-10.2) mg/dL AST 17 16 L (17-59) U/L ALT 6 12 (4-49) U/L Alkaline Phosphatase 54 49 (38-126) U/L Total Protein 5.4 L 5.2 L (6.3-8.2) g/dL Albumin 2.9 L 2.8 L (3.5-5.0) g/dL Calcium panel 02/01/20 02/02/20 Range/Units 13:00 05:52 Calcium 8.2 L 8.0 L (8.4-10.2) mg/dL Albumin 2.9 L 2.8 L (3.5-5.0) g/dL Pituitary panel 02/01/20 02/02/20 Range/Units 13:00 05:52 Sodium 135 L 139 (137-145) mmol/L Potassium 4.8 4.6 (3.5-5.1) mmol/L Chloride 107 111 H (98-107) mmol/L Carbon Dioxide 22 24 (22-30) mmol/L BUN 43 H 41 H (9-20) mg/dL Creatinine 1.44 H 1.40 H (0.66-1.25) mg/dL Glucose 182 H 124 H (74-99) mg/dL Calcium 8.2 L 8.0 L (8.4-10.2) mg/dL Adrenal panel 02/01/20 02/02/20 Range/Units 13:00 05:52 Sodium 135 L 139 (137-145) mmol/L Potassium 4.8 4.6 (3.5-5.1) mmol/L Chloride 107 111 H (98-107) mmol/L Carbon Dioxide 22 24 (22-30) mmol/L BUN 43 H 41 H (9-20) mg/dL Creatinine 1.44 H 1.40 H (0.66-1.25) mg/dL Glucose 182 H 124 H (74-99) mg/dL Calcium 8.2 L 8.0 L (8.4-10.2) mg/dL Total Bilirubin 1.1 1.2 (0.2-1.3) mg/dL AST 17 16 L (17-59) U/L ALT 6 12 (4-49) U/L Alkaline Phosphatase 54 49 (38-126) U/L Total Protein 5.4 L 5.2 L (6.3-8.2) g/dL Albumin 2.9 L 2.8 L (3.5-5.0) g/dL Assessment and Plan Assessment: Anemia related to bleed on Zaroxolyn. Patient will be transfused and observed. He may require another unit of packed red cells of his hemoglobin drops.
[2020-02-02] MEDS: SODIUM CHLORIDE 0.9% 1,000 ML IV SCH (15:55)
[2020-02-02 17:56] LABS: Anisocytosis Slight; HCT 27.1 % (39.0-53.0); Hypochromasia Moderate; MCH 31.2 pg (25.0-35.0); MCHC 32.6 g/dL (31.0-37.0); MCV 95.5 fL (80.0-100.0); Macrocytosis Slight; Mean Platelet Volume 13.8; Platelet Count 122 k/uL (150-450); RBC 2.84 m/uL (4.30-5.90); RDW 17.4 % (11.5-15.5); WBC 7.3 k/uL (3.8-10.6)
[2020-02-02 17:58] LABS: HGB 8.8 gm/dL (13.0-17.5)
[2020-02-02] MEDS ORDERED: SERTRALINE 50 MG TAB PO SCH (21:00)
[2020-02-02] MEDS ORDERED: MULTIVITAMINS, THERA 1 EACH TAB PO SCH (21:00)
[2020-02-03] MEDS: CARBIDOPA-LEVODOPA 25-100 MG 1 EACH TAB PO SCH ×2 (05:16→13:26)
[2020-02-03 05:21] VITALS: BP 129/67; RESP 20; TEMP 98.1
--- NOTE | 2020-02-03 07:49 | P.DS ---
Providers Date of admission: 02/01/20 18:44 Expected date of discharge: 02/03/20 Attending physician: Kushal Elam Consults: 02/01/20 18:33 Consult Physician Stat Consulting Provider: Jamel Dixon Consult Reason/Comments: Gluteal hematoma, anemia Do you want consulting provider notified?: Yes Primary care physician: Darvin Hurd [facility] Course: 85-year-old male one of Dr. Hurd patient who was admitted to [facility] on 01/25/2020 after he sustained a fall caused pain and discomfort in the right hip area was seen in the emergency department not been able to ambulate and walk x- ray failed to show any fracture ended up going for CAT scan did not show any fracture but showed large hematoma in the gluteal area from most likely hematoma from the trauma. Patient still not been able template to walk ended up going to [facility] the day he left the hospital his hemoglobin was still running around 8 g did not require any transfusion. Apparently with repeat CBC his hemoglobin came back at 6.2 patient was symptomatic very tired fatigue had significantly increased larger area of hematoma in the gluteal site and the buttocks area. Patient was sent to the emergency department at [facility] where was seen and evaluated his hemoglobin remained low patient was significantly symptomatic with anemia was giving 1 unit of blood transfusion been on Xarelto patient ended up receiving 1 dose of Kecentra as a human prothrombin complex and was seen by general surgery for his trauma. Ended up going for CT of the abdomen and pelvis finding were consistent with mild L2 compression sigmoid diverticuli and some infiltrate and atelectasis in the lung base with moderate cardiomegaly with significantly increased the density and subcutaneous tissue posterior to the right gluteal muscle this was significantly different from before. Patient will be admitted to the hospital after his blood transfusion will correct hemoglobin to above 8 g stabilized patient and if he is doing well hopefully will be transfer back to the detention rehab in the 24- 48 hours. 02/01: The patient is seen today in follow-up. He remains in the [facility] waiting for a bed on the Medr floor. He is status post Kcentra and Xarelto was discontinued. Repeat hemoglobin is 7.1 after 1 unit of packed RBCs and will be transfused another unit of packed RBCs. Lasix 40 mg IV push will be given after an IV fluids discontinued. Patient is using incentive spirometry. PT and OT are on and plan is to repeat hemoglobin this this afternoon and in the morning, if stable, patient will be discharged back to [facility]. The patient will remain off Xarelto. 02/02: Patient is status post transfusion of 2 units total of packed RBCs. His hemoglobin at 5 PM was 8.8. Repeat hemoglobin this morning is 7.9. One dose of Ferrlecit will be ordered prior to discharge. Patient states pain in his right hip is stable. Not bothering him too much at rest. Patient has been afebrile, heart rate 80, blood pressure 129/69, pulse ox 97% on room air. Patient will return to [facility] today in stable condition. Physical Examination General Appearance: Alert, cooperative, appears stated age. Patient is resting in bed and appears to be comfortable and in no acute distress. Neck HEENT: Supple, no lymphadenopathy, no thyroid enlargement, no carotid bruits. Lungs: Clear to auscultation without crackles or wheezes no rhonchi, no deformity. Chest Wall: Decrease expansion with deep inspiration no tenderness and no deformity was found on exam, no costochondral pain or discomfort. Heart: Irregular rate and rhythm, S1, S2 positive history 2/6 ejection systolic murmur in the apex. Back: Symmetric, positive large hematoma and bruise in the right gluteal area and lumbar spine. Abdomen: Soft, non-tender, bowel sounds active all four quadrants, no masses, no organomegaly. Extremities: Still have limited range of motion in the right hip with significant bruises and large hematoma in the gluteal site on the lateral side of the leg with extending ecchymosis. Pulses: 2+ and symmetric. Skin: Skin color, texture, tugor normal, no rashes or lesions. Neurologic: Alert oriented with slight confusion cranial nerves II through XII intact, positive normal balance and gait.. Assessment and plan 1 acute blood loss anemia from large hematoma in the gluteal side and possible the recto sheath area in the right side. 2 large size hematoma secondary to trauma complicated by use of Xarelto. Hold his Xarelto, resume on Friday. 3 COPD: Without exacerbation. 4 Chronic atrial fibrillation. 5 Parkinson disease. 6 BPH 7 recent history of UTI 8 recurrent depression 9 Chronic kidney disease stage III. 10 type 2 diabetes 11 right hip injury: With no fracture 12 COVID19 infection not present Discharge plan: Return to [facility] and plan of care have been directed as dictated by the signing physician. Cindy Tobias nurse practitioner acting as scribe for signing physician. Patient Condition at Discharge: Good Plan - Discharge Summary Discharge Rx Participant: No New Discharge Prescriptions: New Furosemide [Lasix] 20 mg PO DAILY #30 tab Potassium Chloride 10 meq PO DAILY #30 tablet.er Continue Tamsulosin [Flomax] 0.4 mg PO BID Multivitamins, Thera [Multivitamin (formulary)] 1 tab PO HS Ferrous Sulfate [Feosol] 325 mg PO BID Fluticasone Nasal [place] [Flonase Nasal [place]] 1 spr EA NOSTRIL DAILY Ascorbic Acid [Vitamin C] 500 mg PO BID Allopurinol [Zyloprim] 100 mg PO DAILY Sertraline [Zoloft] 50 mg PO HS Carbidopa-Levodopa 25-100 mg [Sinemet 25-100 mg] 1 tab PO TID@0500,1300,2100 Calcitriol 0.25 mcg PO Q14D guaiFENesin [Mucinex] 600 mg PO Q12HR PRN PRN Reason: Wheezing Benzonatate [Benzonatate [place]] 200 mg PO Q8H PRN PRN Reason: Cough methylPREDNISolone [Medrol] See Taper PO DIRECTED Azithromycin [Zithromax Z-pack] See Taper PO DIRECTED Rivaroxaban [Xarelto] 15 mg PO HS #0 Discharge Medication List Ferrous Sulfate [Feosol] 325 mg PO BID 03/25/14 [History] Multivitamins, Thera [Multivitamin (formulary)] 1 tab PO HS 03/25/14 [History] Tamsulosin [Flomax] 0.4 mg PO BID 03/25/14 [History] Ascorbic Acid [Vitamin C] 500 mg PO BID 11/21/16 [History] Fluticasone Nasal [place] [Flonase Nasal [place]] 1 spr EA NOSTRIL DAILY 11/21/16 [History] Allopurinol [Zyloprim] 100 mg PO DAILY 01/25/20 [History] Calcitriol 0.25 mcg PO Q14D 01/25/20 [History] Carbidopa-Levodopa 25-100 mg [Sinemet 25-100 mg] 1 tab PO TID@0500,1300,2100 01/25/20 [History] Sertraline [Zoloft] 50 mg PO HS 01/25/20 [History] Azithromycin [Zithromax Z-pack] See Taper PO DIRECTED 02/01/20 [History] Benzonatate [Benzonatate [place]] 200 mg PO Q8H PRN 02/01/20 [History] guaiFENesin [Mucinex] 600 mg PO Q12HR PRN 02/01/20 [History] methylPREDNISolone [Medrol] See Taper PO DIRECTED 02/01/20 [History] Furosemide [Lasix] 20 mg PO DAILY #30 tab 02/03/20 [Rx] Potassium Chloride 10 meq PO DAILY #30 tablet.er 02/03/20 [Rx] Rivaroxaban [Xarelto] 15 mg PO HS #0 02/03/20 [Rx] Follow up Appointment(s)/Referral(s): Darvin Hurd DO [Primary Care Provider] - 1 Week (after discharge from [facility]) Ambulatory/Diagnostic Orders: Basic Metabolic Panel [LAB.AMB] Location: None Selected Complete Blood Count w/diff [LAB.AMB] Location: None Selected Discharge Disposition: TRANSFER TO SNF/ECF
[2020-02-03] MEDS ORDERED: FUROSEMIDE 10 MG/ML 4 ML VIAL IV STA (08:04)
[2020-02-03 08:18] LABS: Calcium 7.9 mg/dL (8.4-10.2); Potassium 4.1 mmol/L (3.5-5.1)
[2020-02-03 08:45] LABS: Anisocytosis Slight; HCT 25.7 % (39.0-53.0); HGB 7.9 gm/dL (13.0-17.5); Hypochromasia Slight; MCH 29.1 pg (25.0-35.0); MCHC 30.7 g/dL (31.0-37.0); MCV 94.7 fL (80.0-100.0); Mean Platelet Volume 13.1; RBC 2.72 m/uL (4.30-5.90); RDW 17.2 % (11.5-15.5); WBC 6.3 k/uL (3.8-10.6)
[2020-02-03] MEDS ORDERED: SODIUM FERRIC GLUCONAT-SUCROSE 125 MG in SODIUM CHLORIDE 0.9% 100 ML IVPB ONE (09:30)
[2020-02-03] MEDS: FERROUS SULFATE 325 MG TAB PO SCH (09:32)
[2020-02-03] MEDS: ASCORBIC ACID 500 MG TAB PO SCH (09:32)
[2020-02-03] MEDS: FAMOTIDINE 20 MG TAB PO SCH (09:32)
[2020-02-03] MEDS: TAMSULOSIN 0.4 MG CAP.ER.24H PO SCH (09:32)
[2020-02-03] MEDS: ALLOPURINOL 100 MG TAB PO SCH (09:32)
[2020-02-03] MEDS: FLUTICASONE 50MCG/SPRAY NASAL 16GM EA NOSTRIL SCH (09:34)
--- NOTE | 2020-02-03 09:47 | P.PN ---
Progress Note - Text Progress Note Date: 02/03/20 Patient feels well. His hemoglobin is 7.9. He has no real complaints. On exam his vital signs are stable. His ecchymosis along his right flank buttock and leg is stable. It does appear to increase in size. Patient is being transferred back to [facility] today. Would recommend starting his antiplatelet therapy tomorrow.
[2020-02-03 09:48] VITALS: PULSE 88
[2020-02-03 12:13] LABS: Platelet Count 96 k/uL (150-450)
--- NOTE | 2020-02-05 12:30 | CDI ---
Documentation Clarification Form Date: 02/05/20 From: Josette Shahid CCS Phone: If you have a question about this query, please contact Ani Kellogg, Implementation Coordinator at [phone] between 8am and 5pm. Admit Date: 02/01/20 Discharge Date:02/03/20 Patient Name: Alen Swanson Visit Number: [id number] ATTENTION: The Clinical Documentation Specialists (CDI) and [facility] Coding Staff appreciate your assistance in clarifying documentation. Please respond to the clarification below the line at the bottom and electronically sign. The CDI & [facility] Coding staff will review the response and follow-up if needed. Please note: Queries are made part of the Legal Health Record. If you have any questions, please contact the author of this message via ITS. Dear Dr. Elam, The patient presented with the following acute blood loss anemia. H&P documents: 2 large size hematoma: Patient will have conservative management ice pack with the severity of the bleeding specially with patient been on anticoagulation kcentra 1 dose was giving watch for any more bleed we'll hold his Xarelto for the next 5 days. Consult 02/01 documents: Anemia related to bleed on Zaroxolyn. History/Risk Factors: Recent fall, CARRIE ABLA, AFIB/Xarelto Clinical Indicators: Acute anemia related to bleed Lab findings: PT 10.7, INR 1.0, APTT 30.6 Radiology findings: Soft tissue swelling and fluid posterior to the right gluteal muscles consistent with hematoma and bruising.This is a change compared to old exam. Treatment: Transfusion 2 units RBC, Hold Xarelto Consults: Baljit In your professional opinion, can you please clarify the bleediing? Hemorrhage of muscle due to anticoagulant use Contusion of muscle-no bleed Hemorrhage of muscle due to trauma Other hemorrhage (please specify etiology and site) Other, please specify Unable to determine Hemorrhage of muscle due to anticoagulant use and direct trauma causing hematoma MTDD
== END 2020-02-03 15:15 | DRG 813 ==
LOC: EC 13:01 → 5NMEDONC 18:44
PROVIDERS: ADMIT Internal Medicine Geriatric Medicine; ATTEND Internal Medicine Geriatric Medicine
PROC: 30233N1 Transfusion of Nonautologous Red Blood Cells into Peripheral Vein, Percutaneous Approach (ICD-10-PCS; principal; 2020-02-01)
DX: D68.32 Hemorrhagic disorder due to extrinsic circulating anticoagulants (principal); D62 Acute posthemorrhagic anemia; I48.20 Chronic atrial fibrillation, unspecified; N17.9 Acute kidney failure, unspecified; M48.56XA Collapsed vertebra, not elsewhere classified, lumbar region, initial encounter for fracture; F33.9 Major depressive disorder, recurrent, unspecified; S30.0XXA Contusion of lower back and pelvis, initial encounter; M62.89 Other specified disorders of muscle; Z11.59 Encounter for screening for other viral diseases; D63.1 Anemia in chronic kidney disease; N18.3 Chronic kidney disease, stage 3 (moderate); I13.10 Hypertensive heart and chronic kidney disease without heart failure, with stage 1 through stage 4 chronic kidney disease, or unspecified chronic kidney disease; G20 Parkinson's disease; E11.22 Type 2 diabetes mellitus with diabetic chronic kidney disease; J44.9 Chronic obstructive pulmonary disease, unspecified; H91.92 Unspecified hearing loss, left ear; N40.0 Benign prostatic hyperplasia without lower urinary tract symptoms; M15.9 Polyosteoarthritis, unspecified; K57.30 Diverticulosis of large intestine without perforation or abscess without bleeding; H54.61 Unqualified visual loss, right eye, normal vision left eye; J30.2 Other seasonal allergic rhinitis; W19.XXXA Unspecified fall, initial encounter; T45.515A Adverse effect of anticoagulants, initial encounter; Z79.899 Other long term (current) drug therapy; Z79.01 Long term (current) use of anticoagulants; Z79.51 Long term (current) use of inhaled steroids; Z90.5 Acquired absence of kidney; Z87.01 Personal history of pneumonia (recurrent); Z98.42 Cataract extraction status, left eye; Z98.41 Cataract extraction status, right eye; Z87.891 Personal history of nicotine dependence; Z85.841 Personal history of malignant neoplasm of brain; Z92.3 Personal history of irradiation; Z98.890 Other specified postprocedural states; Z82.69 Family history of other diseases of the musculoskeletal system and connective tissue; Z87.440 Personal history of urinary (tract) infections
CPT/HCPCS: 36415; 74177; 80048; 80053; 82272; 83735; 84484; 85025; 85027; 85610; 85730; 86850; 86900; 86901; 86920; 93005; 96361; 96365; 96375; 99285

== ENCOUNTER → 2020-06-19 | Outpatient (CLI) | payer MEDICARE ==
--- NOTE | 2020-06-19 13:08 | XR ---
EXAMINATION TYPE: XR knee complete bilateral DATE OF EXAM: 06/19/2020 COMPARISON: NONE HISTORY: TECHNIQUE: Bilateral AP weightbearing, lateral weightbearing both sides, and nonweightbearing 3 views each knee. FINDINGS: Right: Mild narrowing of medial compartment cartilage and joint space. Tricompartmental degenerative spurring. No sizable joint effusion. Meniscal chondrocalcinosis noted. No acute fracture, subluxation , dislocation. Cartilage and joint space narrowing has progressed from 2018. Left: Tricompartmental degenerative spurring. The weightbearing view shows complete loss of medial co mpartment cartilage and joint space with [id number] articulation. Prominent marginal spurring of th e patellofemoral compartment. Small knee joint effusion. No acute fracture, subluxation, dislocation. IMPRESSION: 1. Right: Mild tricompartmental osteoarthrosis. Progressive loss of medial compartment cartilage and joint space as compared to 2018. 2. Left: Tricompartmental osteoarthrosis, end-stage within the medial compartment with [id number] a rticulation. At least moderate within the patellofemoral compartment. Small knee joint effusion is no nspecific, probably reactive.
== END | disposition home or self-care (01) ==
LOC: RADXRMAIN 10:22
PROVIDERS: ATTEND Family Medicine
DX: M17.0 Bilateral primary osteoarthritis of knee (principal); M25.561 Pain in right knee; M25.562 Pain in left knee

== ENCOUNTER → 2020-08-28 | Outpatient (CLI) | payer MEDICARE ==
[2020-08-28 08:50] LABS: Basophils % (A) 1 %; Eosinophils # (A) 0.1 k/uL (0-0.7); Eosinophils % (A) 2 %; HCT 34.6 % (39.0-53.0); HGB 11.1 gm/dL (13.0-17.5); Hypochromasia Slight; Lymphocytes # (A) 1.5 k/uL (1.0-4.8); Lymphocytes % (A) 29 %; MCH 31.8 pg (25.0-35.0); MCHC 32.1 g/dL (31.0-37.0); MCV 99.1 fL (80.0-100.0); Mean Platelet Volume 12.9; Monocytes # (A) 0.3 k/uL (0-1.0); Monocytes % (A) 6 %; Neutrophils % (A) 60 %; Platelet Count 63 k/uL (150-450); RDW 14.5 % (11.5-15.5); WBC 5.1 k/uL (3.8-10.6)
[2020-08-28 08:53] LABS: Appearance,Urine Clear (Clear); Bilirubin,Urine Negative (Negative); Blood,Urine Negative (Negative); Color,Urine Light Yellow; Glucose,Urine (UA) Negative (Negative); Ketones,Urine Negative (Negative); Leukocyte Esterase,Urine Negative (Negative); Nitrite,Urine Negative (Negative); Protein,Urine Negative (Negative); Specific Gravity,Urine 1.014 (1.001-1.035); Urobilinogen,Urine <2.0 mg/dL (<2.0)
[2020-08-28 09:43] LABS: Large Platelets Present; Poikilocytosis (M) Present
[2020-08-28 15:32] LABS: % Iron Saturation 25.74 (15.00-50.00); African American GFR (CKD) 34.3 (60.0-200.0); Albumin/Globulin Ratio 2.11 (1.60-3.17); Calcium 8.7 mg/dL (8.7-10.3); Globulin 1.9 g/dL (1.6-3.3); Magnesium 1.9 mg/dL (1.5-2.4); Non-African American GFR(CKD) 29.6 (60.0-200.0); Phosphorus 4.1 mg/dL (2.4-5.1); Potassium 4.2 mmol/L (3.5-5.5); Total Bilirubin 0.5 mg/dL (0.2-1.2); Total Protein 5.9 g/dL (6.2-8.2)
[2020-08-28 15:46] LABS: Ferritin 671.2 ng/mL (22.0-322.0)
== END | disposition home or self-care (01) ==
LOC: LABWHC1 07:53
PROVIDERS: ATTEND Nurse Practitioner Family
DX: E55.9 Vitamin D deficiency, unspecified (principal); D63.1 Anemia in chronic kidney disease; N18.30 Chronic kidney disease, stage 3 unspecified; N39.0 Urinary tract infection, site not specified; N25.81 Secondary hyperparathyroidism of renal origin; M10.9 Gout, unspecified
CPT/HCPCS: 36415; 80053; 81003; 82306; 82728; 83540; 83550; 83735; 83970; 84100; 84550; 85025

== ENCOUNTER 2020-09-19 21:10 | Emergency (ER) | payer MEDICARE ==
[2020-09-19 21:20] VITALS: BP 149/85; PULSE 89; RESP 18; TEMP 98.1
[2020-09-19] MEDS ORDERED: GELATIN SPONGE,ABSORB (LARGE) 1 EACH SPONGE TOPICAL STA (21:29)
[2020-09-19] MEDS ORDERED: DIPH,PERTUS(ACELL)TETVAC-LF 0.5 ML VIAL IM ONE (21:34)
--- NOTE | 2020-09-19 21:36 | ED ---
Wound/Laceration HPI - General Chief Complaint: Wound/Laceration Stated Complaint: RT hand lac Time Seen by Provider: 09/19/20 21:22 Source: patient Mode of arrival: ambulatory Limitations: no limitations - History of Present Illness Initial Comments: 85-year-old male in [facility] presenting to the emergency department today for chief complaint of right hand laceration that won't stop bleeding. Patient states he scratched his dorsal side of his right hand he states in 2 places he states they're very superficial but won't stop bleeding. Patient states her bleeding continued this evening he came into the ER for evaluation. He denies any other areas of injury he denies any significant trauma just stating that he rubbed it against something. pt unsure of last tetanus. patient appears well nontoxic in no acute distress. - Related Data Home Medications Medication Instructions Recorded Confirmed Ferrous Sulfate [Feosol] 325 mg PO BID 03/25/14 02/01/20 Multivitamins, Thera [Multivitamin 1 tab PO HS 03/25/14 02/01/20 (formulary)] Tamsulosin [Flomax] 0.4 mg PO BID 03/25/14 02/01/20 Ascorbic Acid [Vitamin C] 500 mg PO BID 11/21/16 02/01/20 Fluticasone Nasal [place] [Flonase 1 spr EA NOSTRIL DAILY 11/21/16 02/01/20 Nasal [place]] Carbidopa-Levodopa 25-100 mg 1 tab PO TID@0500,1300,2100 01/25/20 02/01/20 [Sinemet 25-100 mg] Sertraline [Zoloft] 50 mg PO HS 01/25/20 02/01/20 allopurinoL [Zyloprim] 100 mg PO DAILY 01/25/20 02/01/20 calcitrioL [Calcitriol] 0.25 mcg PO Q14D 01/25/20 02/01/20 Azithromycin [Zithromax Z-pack (6 See Taper PO DIRECTED 02/01/20 02/01/20 tabs)] Benzonatate [Benzonatate Perle] 200 mg PO Q8H PRN 02/01/20 02/01/20 guaiFENesin [Mucinex] 600 mg PO Q12HR PRN 02/01/20 02/01/20 methylPREDNISolone [Medrol] See Taper PO DIRECTED 02/01/20 02/01/20 Previous Rx's Medication Instructions Recorded Furosemide [Lasix] 20 mg PO DAILY #30 tab 02/03/20 Potassium Chloride 10 meq PO DAILY #30 tablet.er 02/03/20 Rivaroxaban [Xarelto] 15 mg PO HS #0 02/03/20 Cephalexin [Keflex] 500 mg PO Q6HR 5 Days #20 cap 09/19/20 Allergies Allergy/AdvReac Type Severity Reaction Status Date / Time No Known Allergies Allergy Verified 09/19/20 21:20 Review of Systems ROS Statement: Those systems with pertinent positive or pertinent negative responses have been documented in the HPI. ROS Other: All systems not noted in ROS Statement are negative. Past Medical History Past Medical History: Atrial Fibrillation, Cancer, COPD, Diabetes Mellitus, Eye Disorder, Hearing Disorder / Deafness, Hypertension, Pneumonia, Prostate Disorder, Renal Disease Additional Past Medical History / Comment(s): Pt recently admitted to [facility] on 01/25/20 with a mechanical fall/hematoma R buttock and acute blood loss anemia. Other hx: 2010 Brain cancer with surgery and radiation, L nephrectomy d/t deteriorating kidney, CKD stage III, BPH, chronic thrombocytopenia, chronic anemia, diet controlled diabetes, generalized arthritis, L2 compression fracture, blind R eye, [place] blaterally, seasonal allergies History of Any Multi-Drug Resistant Organisms: None Reported Additional Past Surgical History / Comment(s): L nephrectomy, brain tumor removal, bilateral cataract removals, colonoscopy. Past Anesthesia/Blood Transfusion Reactions: No Reported Reaction Additional Past Anesthesia/Blood Transfusion Reaction / Comment(s): Pt has received blood in past without reaction. Past Psychological History: Depression Smoking Status: Never smoker Past Alcohol Use History: None Reported Past Drug Use History: None Reported - Past Family History Father Family Medical History: No Reported History Additional Family Medical History / Comment(s): Father was healthy. He at the age of 62yrs in a MVA. Mother Additional Family Medical History / Comment(s): Mother at the age of 86yrs of "heart problems." Brother(s) Additional Family Medical History / Comment(s): Patient has 3 brothers and one is passed from old age. Patient has 4 sisters with no major medical problems. Patient had 2 children one from muscular dystrophy and one is alive with no major medical problems. General Exam - General Exam Comments Initial Comments: General: The patient is awake and alert, in no distress Eye: Pupils are equal, round and reactive to light, extra-ocular movements are intact. No nystagmus. There is normal conjunctiva bilaterally. No signs of icterus. Musculoskeletal: Normal ROM, no tenderness. Strength 5/5. Sensation intact. Radial pulses equal bilaterally 2+. Neurological: A&O x 3. CN II-XII intact grossly, There are no obvious motor or sensory deficits. Coordination appears grossly intact. Speech is normal. Skin: Skin is warm and dry and no rashes. superficial skin tear 3cm on dorsum of right hand, adjacent superficial triange shaped tear ~1cm. slow oozing bleeding, no heavy bleeding. Psychiatric: Cooperative, appropriate mood & affect, normal judgment. Limitations: no limitations Course Vital Signs 09/19/20 21:15 Temperature 98.1 F Pulse Rate 89 Respiratory 18 Rate Blood Pressure 149/85 O2 Sat by Pulse 90 L Oximetry Medical Decision Making - Medical Decision Making laceration cleansed. gel foam applied as well as pressure bandage. tdap updated and patient discharged with return parameters/abx and pcp f/u. Disposition Clinical Impression: Skin tear of right hand without complication Disposition: HOME SELF-CARE Condition: Good Instructions (If sedation given, give patient instructions): Skin Tear (ED) Additional Instructions: Please use medication as discussed. Please follow-up with family doctor in the next 2 days of symptoms have not improved. Please return to emergency room if the symptoms increase or worsen or for any other concerns. Prescriptions: Cephalexin [Keflex] 500 mg PO Q6HR 5 Days #20 cap Is patient prescribed a controlled substance at d/c from ED?: No Referrals: Darvin Hurd DO [Primary Care Provider] - 1-2 days Time of Disposition: 22:03
== END 2020-09-19 22:15 | disposition home or self-care (01) ==
LOC: EC 21:10
DX: S61.411A Laceration without foreign body of right hand, initial encounter (principal); I48.91 Unspecified atrial fibrillation; J44.9 Chronic obstructive pulmonary disease, unspecified; E11.22 Type 2 diabetes mellitus with diabetic chronic kidney disease; I12.9 Hypertensive chronic kidney disease with stage 1 through stage 4 chronic kidney disease, or unspecified chronic kidney disease; F32.9 Major depressive disorder, single episode, unspecified; Z23 Encounter for immunization; Z79.51 Long term (current) use of inhaled steroids; Z79.899 Other long term (current) drug therapy; Z85.841 Personal history of malignant neoplasm of brain; Z90.5 Acquired absence of kidney; Z92.3 Personal history of irradiation; X58.XXXA Exposure to other specified factors, initial encounter
CPT/HCPCS: 90471; 90715; 99282

== ENCOUNTER 2020-12-04 00:02 | Emergency (ER) | payer MEDICARE ==
[2020-12-04] MEDS ORDERED: OXYMETAZOLINE 0.05% NASL SPRAY 1 SPRAY BOTTLE NASAL STA (01:05)
--- NOTE | 2020-12-04 01:48 | ED ---
General Adult HPI - General Chief complaint: ENT Stated complaint: nosebleed Time Seen by Provider: 12/04/20 00:12 Source: patient, family Mode of arrival: wheelchair Limitations: no limitations, physical limitation - History of Present Illness Initial comments: 85-year-old male patient presents to the emergency department today for evaluation of nosebleed. Patient states started about an hour ago. States it has slowed since arriving here. Denies any facial trauma. Denies headache, blurred vision, double vision. Denies any dizziness or weakness. Does take xarelto. Denies any hematuria, dark, black, or bloody stools. Denies any issues with elevated blood pressures. Patient denies any recent rash, fever, chills, cough, shortness of breath, chest pain, abdominal pain, nausea, vomiting, diarrhea, constipation, back pain, numbness, tingling, hematuria, dysuria, urinary urgency, urinary frequency, headache, visual changes, or any other complaints. - Related Data Home Medications Medication Instructions Recorded Confirmed Ferrous Sulfate [Feosol] 325 mg PO BID 03/25/14 02/01/20 Multivitamins, Thera [Multivitamin 1 tab PO HS 03/25/14 02/01/20 (formulary)] Tamsulosin [Flomax] 0.4 mg PO BID 03/25/14 02/01/20 Ascorbic Acid [Vitamin C] 500 mg PO BID 11/21/16 02/01/20 Fluticasone Nasal [place] [Flonase 1 spr EA NOSTRIL DAILY 11/21/16 02/01/20 Nas[place]] Carbidopa-Levodopa 25-100 mg 1 tab PO TID@0500,1300,2100 01/25/20 02/01/20 [Sinemet 25-100 mg] Sertraline [Zoloft] 50 mg PO HS 01/25/20 02/01/20 allopurinoL [Zyloprim] 100 mg PO DAILY 01/25/20 02/01/20 calcitrioL [Calcitriol] 0.25 mcg PO Q14D 01/25/20 02/01/20 Azithromycin [Zithromax Z-pack (6 See Taper PO DIRECTED 02/01/20 02/01/20 tabs)] Benzonatate [Benzonatate Per[place]] 200 mg PO Q8H PRN 02/01/20 02/01/20 guaiFENesin [Mucinex] 600 mg PO Q12HR PRN 02/01/20 02/01/20 methylPREDNISolone [Medrol] See Taper PO DIRECTED 02/01/20 02/01/20 Previous Rx's Medication Instructions Recorded Furosemide [Lasix] 20 mg PO DAILY #30 tab 02/03/20 Potassium Chloride 10 meq PO DAILY #30 tablet.er 02/03/20 Rivaroxaban [Xarelto] 15 mg PO HS #0 02/03/20 Cephalexin [Keflex] 500 mg PO Q6HR 5 Days #20 cap 09/19/20 Allergies Allergy/AdvReac Type Severity Reaction Status Date / Time No Known Allergies Allergy Verified 12/04/20 00:10 Review of Systems ROS Statement: Those systems with pertinent positive or pertinent negative responses have been documented in the HPI. ROS Other: All systems not noted in ROS Statement are negative. Past Medical History Past Medical History: Atrial Fibrillation, Cancer, COPD, Diabetes Mellitus, Eye Disorder, Hearing Disorder / Deafness, Hypertension, Pneumonia, Prostate Disorder, Renal Disease Additional Past Medical History / Comment(s): Pt recently admitted to [facility] on 01/25/20 with a mechanical fall/hematoma R buttock and acute blood loss anemia. Other hx: 2010 Brain cancer with surgery and radiation, L nephrectomy d/t deteriorating kidney, CKD stage III, BPH, chronic thrombocytopenia, chronic anemia, diet controlled diabetes, generalized arthritis, L2 compression fracture, blind R eye, [place] blaterally, seasonal allergies History of Any Multi-Drug Resistant Organisms: None Reported Additional Past Surgical History / Comment(s): L nephrectomy, brain tumor removal, bilateral cataract removals, colonoscopy. Past Anesthesia/Blood Transfusion Reactions: No Reported Reaction Additional Past Anesthesia/Blood Transfusion Reaction / Comment(s): Pt has received blood in past without reaction. Past Psychological History: Depression Smoking Status: Never smoker Past Alcohol Use History: None Reported Past Drug Use History: None Reported - Past Family History Father Family Medical History: No Reported History Additional Family Medical History / Comment(s): Father was healthy. He at the age of 62yrs in a MVA. Mother Additional Family Medical History / Comment(s): Mother at the age of 86yrs of "heart problems." Brother(s) Additional Family Medical History / Comment(s): Patient has 3 brothers and one is passed from old age. Patient has 4 sisters with no major medical problems. Patient had 2 children one from muscular dystrophy and one is alive with no major medical problems. General Exam Limitations: no limitations, physical limitation General appearance: alert, in no apparent distress, other (Physical well- developed, well-nourished elderly male patient in no acute distress.) Eye exam: Present: normal appearance, PERRL, EOMI. Absent: scleral icterus, conjunctival injection, periorbital swelling ENT exam: Present: mucous membranes moist, other (There is dried blood noted in the bilateral nares, mild oozing from the left nostril) Respiratory exam: Present: normal lung sounds bilaterally. Absent: respiratory distress, wheezes, rales, rhonchi, stridor Cardiovascular Exam: Present: regular rate, normal rhythm, normal heart sounds. Absent: systolic murmur, diastolic murmur, rubs, gallop, clicks Neurological exam: Present: alert, oriented X3, CN II-XII intact Psychiatric exam: Present: normal affect, normal mood Skin exam: Present: warm, dry, intact, normal color. Absent: rash Course Vital Signs 12/04/20 12/04/20 12/04/20 00:08 01:10 01:32 Temperature 97.5 F L Pulse Rate 84 75 87 Respiratory 20 18 16 Rate Blood Pressure 145/82 136/71 135/83 O2 Sat by Pulse 98 96 96 Oximetry Medical Decision Making - Medical Decision Making 85-year-old male patient takes of [place] presents to the emergency department today for evaluation of nosebleed. Patient states started about an hour ago on the right side now is having oozing from the left side. States it did slow somewhat on arrival. Physical examination did reveal some mild oozing from the left nostril. Did use Afrin nasal spray and applied clamp. Upon reevaluation nose bleeding seems to have stopped. He was able to ambulate to the department without recurrence. He is instructed to follow-up with his primary care physician for recheck in 1-2 days. Return parameters were discussed in detail. He verbalizes understanding and agrees with this plan. Case discussed with my attending Dr. Rosas. Disposition Clinical Impression: Epistaxis Disposition: HOME SELF-CARE Condition: Good Instructions (If sedation given, give patient instructions): Nosebleed (ED) Additional Instructions: If bleeding becomes heavy, blow your nose, use nasal spray in each nostril, and apply clamp for 20 minutes. If the bleeding continues repeat this process one more time. If you have bleeding after that return to the emergency department. Follow-up with her primary care physician for recheck in 1-2 days. Return to [facility] emergency department for any new, worsening, or concerning symptoms. Is patient prescribed a controlled substance at d/c from ED?: No Referrals: Darvin Hurd DO [Primary Care Provider] - 1-2 days Time of Disposition: 02:04
[2020-12-04 02:21] VITALS: BP 130/72; PULSE 72; RESP 20; TEMP 98
== END 2020-12-04 02:18 | disposition home or self-care (01) ==
LOC: EC 00:02
DX: R04.0 Epistaxis (principal); E11.22 Type 2 diabetes mellitus with diabetic chronic kidney disease; E11.36 Type 2 diabetes mellitus with diabetic cataract; I12.9 Hypertensive chronic kidney disease with stage 1 through stage 4 chronic kidney disease, or unspecified chronic kidney disease; F32.9 Major depressive disorder, single episode, unspecified; I48.91 Unspecified atrial fibrillation; J44.9 Chronic obstructive pulmonary disease, unspecified; N18.30 Chronic kidney disease, stage 3 unspecified; Z79.899 Other long term (current) drug therapy
CPT/HCPCS: 99283

== ENCOUNTER → 2020-12-06 | Outpatient (CLI) | payer MEDICARE ==
[2020-12-06 11:04] LABS: Appearance,Urine Clear (Clear); Bilirubin,Urine Negative (Negative); Blood,Urine Negative (Negative); Color,Urine Yellow; Glucose,Urine (UA) Negative (Negative); Ketones,Urine Negative (Negative); Leukocyte Esterase,Urine Negative (Negative); Nitrite,Urine Negative (Negative); Protein,Urine Negative (Negative); Specific Gravity,Urine 1.008 (1.001-1.035); Urobilinogen,Urine <2.0 mg/dL (<2.0)
[2020-12-06 17:50] LABS: % Iron Saturation 23.61 (15.00-50.00); African American GFR (CKD) 41.7 (60.0-200.0); Albumin 4.1 g/dL (3.80-4.90); Albumin/Globulin Ratio 2.28 (1.60-3.17); Anion Gap 4.8 mmol/L (4.00-12.00); BUN/Creat Ratio 26.47 Ratio (12.00-20.00); Calcium 10.2 mg/dL (8.7-10.3); Carbon Dioxide 30.2 mmol/L (21.6-31.8); Ferritin 560.7 ng/mL (22.0-322.0); Globulin 1.8 g/dL (1.6-3.3); Phosphorus 4.8 mg/dL (2.4-5.1); Potassium 4.7 mmol/L (3.5-5.5); Total Bilirubin 0.5 mg/dL (0.3-1.2); Total Protein 5.9 g/dL (6.2-8.2)
[2020-12-06 18:31] LABS: Uric Acid 3.9 mg/dL (3.7-8.7)
[2020-12-06 19:23] LABS: HCT 33.6 % (39.6-50.0); HGB 10.2 g/dL (13.0-17.0); MCH 30.8 pg (27.0-32.0); MCHC 30.4 g/dL (32.0-37.0); MCV 101.5 fL (80.0-97.0); Platelet Count 60 X 10*3/uL (140-440); RBC 3.31 X 10*6/uL (4.40-5.60); RDW 14.9 % (11.5-14.5); WBC 6.66 X 10*3/uL (4.50-10.00)
== END | disposition home or self-care (01) ==
LOC: LABWHC1 10:33
PROVIDERS: ATTEND Internal Medicine
DX: N39.0 Urinary tract infection, site not specified (principal); N25.81 Secondary hyperparathyroidism of renal origin; M10.9 Gout, unspecified; N18.32 Chronic kidney disease, stage 3b; D63.1 Anemia in chronic kidney disease; E55.9 Vitamin D deficiency, unspecified
CPT/HCPCS: 36415; 80053; 81003; 82306; 82728; 83540; 83550; 83735; 83970; 84100; 84550; 85027

== ENCOUNTER 2020-12-27 15:42 | Emergency (ER) | payer MEDICARE ==
[2020-12-27] MEDS ORDERED: DIPH,PERTUS(ACELL)TETVAC-LF 0.5 ML VIAL IM ONE (15:48)
[2020-12-27] MEDS ORDERED: SODIUM CHLORIDE 0.9% 1,000 ML IV STA (15:48)
--- NOTE | 2020-12-27 15:51 | ED ---
General Adult HPI - General Stated complaint: fall, head injury Time Seen by Provider: 12/27/20 15:48 Source: EMS Mode of arrival: EMS Limitations: altered mental status - History of Present Illness Initial comments: Dictation was produced using [employer] dictation software. please excuse any grammatical, word or spelling errors. This patient was cared for during a federal and state declared state of emergency secondary to Covid 19 Chief Complaint: 85-year-old male presents after being found down History of Present Illness: 85-year-old male brought in by EMS from home. Patient is a poor historian. He was found to vital of a series of steps. Urinalysis and that patient had fallen down the steps. There was blood noted to the top of his head. There was some blood on the scene. Patient does not recall the event. Patient denies any medical problems however there is a medication list that shows that patient is on xarelto. Chart review shows the patient's past medical history of A. fib, COPD, diabetes, pneumonia. Patient does not know when his last tetanus shot was. EMS reports that they were trying to find a source of bleeding scalp however they did not find one. He did have a large hematoma to the occiput of his head The ROS documented in this emergency department record has been reviewed and confirmed by me. Those systems with pertinent positive or negative responses have been documented in the HPI. All other systems are other negative and/or noncontributory. PHYSICAL EXAM: General Impression: Alert and oriented x4/4, not in acute distress HEENT: 3 x 3 cm hematoma over the occiput, no laceration or site of bleeding. It appears that hematoma stretch at the laceration and achieved tamponade. extra-ocular movements intact, no scalp laceration, pupils equal and reactive to light bilaterally, mucous membranes moist. Cardiovascular: Heart regular rate and rhythm Chest: Able to complete full sentences, no retractions, no tachypnea Abdomen: abdomen soft, non-tender, non-distended, no organomegaly Musculoskeletal: Pulses present and equal in all extremities, no peripheral edema Motor: no focal deficits noted Neurological: CN II-XII grossly intact, no focal motor or sensory deficits noted Skin: Intact with no visualized rashes Psych: Normal affect and mood ED course: 85-year-old male with suspected history of anticoagulation use presents emergency department after fall. Patient is activated level II trauma. Patient evaluated in trauma bay #2 per ATLS protocol. Since the patient fell from the top of the steps. He does have a large hematoma over his occiput. Patient is not in acute distress. Rest of physical examination is benign. Further chart review was obtained. Patient has history of Parkinson's. Medications reviewed on electronic medical record. EKG interpretation: Ventricular rate 79, A. fib, QRS 100, QTC 435. No PA prolongation, no QTC prolongation, no ST or T-wave changes noted. EKG compared to 02/01/2020 showing no changes. Overall, this EKG is unremarkable Chest x-ray and pelvis x-ray nonacute. Laboratory evaluation obtained. Hemoglobin baseline. Platelet counts baseline. CBC is within acceptable limits for patient. Coag panel is unremarkable. Metabolic panel is negative. Serum alcohol is negative. CT of the head and C-spine shows no acute processes aside from hematoma. Computed tomography scan of the chest abdomen pelvis does not show any traumatic injuries. Patient reevaluated at bedside at 5:30 PM stable medical condition. Patient wants to be discharged. We contacted and family member who do not have any mode of transportation to come to the emergency department. At 600 p.m. son was able to find a vehicle he was not able to come to the emergency department because he tested positive for Covid recently. Patient elevated at bedside. He is ambulatory at baseline with a walker. States that he has no complaint at this time and would like to be discharge. Return parameters discussed. Patient be discharged. - Related Data Home Medications Medication Instructions Recorded Confirmed Ferrous Sulfate [Feosol] 325 mg PO BID 03/25/14 02/01/20 Multivitamins, Thera [Multivitamin 1 tab PO HS 03/25/14 02/01/20 (formulary)] Tamsulosin [Flomax] 0.4 mg PO BID 03/25/14 02/01/20 Ascorbic Acid [Vitamin C] 500 mg PO BID 11/21/16 02/01/20 Fluticasone Nasal [place] [Flonase 1 spr EA NOSTRIL DAILY 11/21/16 02/01/20 Nasal [place]] Carbidopa-Levodopa 25-100 mg 1 tab PO TID@0500,1300,2100 01/25/20 02/01/20 [Sinemet 25-100 mg] Sertraline [Zoloft] 50 mg PO HS 01/25/20 02/01/20 allopurinoL [Zyloprim] 100 mg PO DAILY 01/25/20 02/01/20 calcitrioL [Calcitriol] 0.25 mcg PO Q14D 01/25/20 02/01/20 Azithromycin [Zithromax Z-pack (6 See Taper PO DIRECTED 02/01/20 02/01/20 tabs)] Benzonatate [Benzonatate [place]] 200 mg PO Q8H PRN 02/01/20 02/01/20 guaiFENesin [Mucinex] 600 mg PO Q12HR PRN 02/01/20 02/01/20 methylPREDNISolone [Medrol] See Taper PO DIRECTED 02/01/20 02/01/20 Previous Rx's Medication Instructions Recorded Furosemide [Lasix] 20 mg PO DAILY #30 tab 02/03/20 Potassium Chloride 10 meq PO DAILY #30 tablet.er 02/03/20 Rivaroxaban [Xarelto] 15 mg PO HS #0 02/03/20 Cephalexin [Keflex] 500 mg PO Q6HR 5 Days #20 cap 09/19/20 Allergies Allergy/AdvReac Type Severity Reaction Status Date / Time No Known Allergies Allergy Verified 12/04/20 00:10 Review of Systems ROS Statement: Those systems with pertinent positive or pertinent negative responses have been documented in the HPI. ROS Other: All systems not noted in ROS Statement are negative. Past Medical History Past Medical History: Atrial Fibrillation, Cancer, COPD, Diabetes Mellitus, Eye Disorder, Hearing Disorder / Deafness, Hypertension, Pneumonia, Prostate Disorder, Renal Disease Additional Past Medical History / Comment(s): Pt recently admitted to [facility] on 01/25/20 with a mechanical fall/hematoma R buttock and acute blood loss anemia. Other hx: 2010 Brain cancer with surgery and radiation, L nephrectomy d/t deteriorating kidney, CKD stage III, BPH, chronic thrombocytopenia, chronic anemia, diet controlled diabetes, generalized arthritis, L2 compression fracture, blind R eye, BARROW blaterally, seasonal allergies History of Any Multi-Drug Resistant Organisms: None Reported Additional Past Surgical History / Comment(s): L nephrectomy, brain tumor removal, bilateral cataract removals, colonoscopy. Past Anesthesia/Blood Transfusion Reactions: No Reported Reaction Additional Past Anesthesia/Blood Transfusion Reaction / Comment(s): Pt has received blood in past without reaction. Past Psychological History: Depression Smoking Status: Never smoker Past Alcohol Use History: None Reported Past Drug Use History: None Reported - Past Family History Father Family Medical History: No Reported History Additional Family Medical History / Comment(s): Father was healthy. He at the age of 62yrs in a MVA. Mother Additional Family Medical History / Comment(s): Mother at the age of 86yrs of "heart problems." Brother(s) Additional Family Medical History / Comment(s): Patient has 3 brothers and one is passed from old age. Patient has 4 sisters with no major medical problems. Patient had 2 children one from muscular dystrophy and one is alive with no major medical problems. General Exam Limitations: altered mental status Course Vital Signs 12/27/20 12/27/20 12/27/20 15:47 16:50 17:00 Pulse Rate 80 66 64 Respiratory 16 18 Rate Blood Pressure 111/95 101/66 101/66 O2 Sat by Pulse 97 97 Oximetry Medical Decision Making - Lab Data Result diagrams: 12/27/20 15:58 12/27/20 15:58 Lab Results 12/27/20 12/27/20 12/27/20 Range/Units 15:53 15:58 15:58 WBC 5.4 (3.8-10.6) k/uL RBC 3.42 L (4.30-5.90) m/uL Hgb 10.3 L (13.0-17.5) gm/dL Hct 33.4 L (39.0-53.0) % MCV 97.6 (80.0-100.0) fL MCH 30.0 (25.0-35.0) pg MCHC 30.8 L (31.0-37.0) g/dL RDW 16.7 H (11.5-15.5) % Plt Count 64 L (150-450) k/uL MPV 13.5 Neutrophils % 62 % Lymphocytes % 28 % Monocytes % 6 % Eosinophils % 2 % Basophils % 0 % Neutrophils # 3.4 (1.3-7.7) k/uL Lymphocytes # 1.5 (1.0-4.8) k/uL Monocytes # 0.3 (0-1.0) k/uL Eosinophils # 0.1 (0-0.7) k/uL Basophils # 0.0 (0-0.2) k/uL Manual Slide Review Performed Hypochromasia Slight Anisocytosis Slight Macrocytosis Slight Ovalocytes Present Fragmented RBCs Present PT 10.8 (9.0-12.0) sec INR 1.0 (<1.2) APTT 21.6 L (22.0-30.0) sec Sodium (137-145) mmol/L Potassium (3.5-5.1) mmol/L Chloride (98-107) mmol/L Carbon Dioxide (22-30) mmol/L Anion Gap mmol/L BUN (9-20) mg/dL Creatinine (0.66-1.25) mg/dL Est GFR (CKD-EPI)AfAm (>60 ml/min/1.73 sqM) Est GFR (CKD-EPI)NonAf (>60 ml/min/1.73 sqM) Glucose (74-99) mg/dL POC Glucose (mg/dL) 146 H (75-99) mg/dL POC Glu Residential [employer] Assistant ID Arnold Мария Plasma Lactic Acid Ralph (0.7-2.0) mmol/L Calcium (8.4-10.2) mg/dL Total Bilirubin (0.2-1.3) mg/dL AST (17-59) U/L ALT (4-49) U/L Alkaline Phosphatase (38-126) U/L Creatine Kinase (55-170) U/L Troponin I (0.000-0.034) ng/mL Total Protein (6.3-8.2) g/dL Albumin (3.5-5.0) g/dL Urine Color Urine Appearance (Clear) Urine pH (5.0-8.0) Ur Specific [place] (1.001-1.035) Urine Protein (Negative) Urine Glucose (UA) (Negative) Urine Ketones (Negative) Urine Blood (Negative) Urine Nitrite (Negative) Urine Bilirubin (Negative) Urine Urobilinogen (<2.0) mg/dL Ur Leukocyte Esterase (Negative) Serum Alcohol mg/dL Blood Type Blood Type Recheck Bld Type Recheck Status Antibody Screen Spec Expiration Date 12/27/20 12/27/20 12/27/20 Range/Units 15:58 15:58 15:58 WBC (3.8-10.6) k/uL RBC (4.30-5.90) m/uL Hgb (13.0-17.5) gm/dL Hct (39.0-53.0) % MCV (80.0-100.0) fL MCH (25.0-35.0) pg MCHC (31.0-37.0) g/dL RDW (11.5-15.5) % Plt Count (150-450) k/uL MPV Neutrophils % % Lymphocytes % % Monocytes % % Eosinophils % % Basophils % % Neutrophils # (1.3-7.7) k/uL Lymphocytes # (1.0-4.8) k/uL Monocytes # (0-1.0) k/uL Eosinophils # (0-0.7) k/uL Basophils # (0-0.2) k/uL Manual Slide Review Hypochromasia Anisocytosis Macrocytosis Ovalocytes Fragmented RBCs PT (9.0-12.0) sec INR (<1.2) APTT (22.0-30.0) sec Sodium 143 (137-145) mmol/L Potassium 4.1 (3.5-5.1) mmol/L Chloride 109 H (98-107) mmol/L Carbon Dioxide 27 (22-30) mmol/L Anion Gap 7 mmol/L BUN 49 H (9-20) mg/dL Creatinine 1.81 H (0.66-1.25) mg/dL Est GFR (CKD-EPI)AfAm 39 (>60 ml/min/1.73 sqM) Est GFR (CKD-EPI)NonAf 33 (>60 ml/min/1.73 sqM) Glucose 148 H (74-99) mg/dL POC Glucose (mg/dL) (75-99) mg/dL POC Glu Residential [employer] Estate Assistant ID Plasma Lactic Acid Ralph 1.3 (0.7-2.0) mmol/L Calcium 11.2 H (8.4-10.2) mg/dL Total Bilirubin 0.4 (0.2-1.3) mg/dL AST 20 (17-59) U/L ALT 15 (4-49) U/L Alkaline Phosphatase 78 (38-126) U/L Creatine Kinase 43 L (55-170) U/L Troponin I (0.000-0.034) ng/mL Total Protein 6.2 L (6.3-8.2) g/dL Albumin 3.8 (3.5-5.0) g/dL Urine Color Light Yellow Urine Appearance Clear (Clear) Urine pH 6.0 (5.0-8.0) Ur Specific [place] 1.024 (1.001-1.035) Urine Protein Negative (Negative) Urine Glucose (UA) Negative (Negative) Urine Ketones Negative (Negative) Urine Blood Negative (Negative) Urine Nitrite Negative (Negative) Urine Bilirubin Negative (Negative) Urine Urobilinogen <2.0 (<2.0) mg/dL Ur Leukocyte Esterase Negative (Negative) Serum Alcohol <10 mg/dL Blood Type Blood Type Recheck Bld Type Recheck Status Antibody Screen Spec Expiration Date 12/27/20 12/27/20 Range/Units 15:58 15:58 WBC (3.8-10.6) k/uL RBC (4.30-5.90) m/uL Hgb (13.0-17.5) gm/dL Hct (39.0-53.0) % MCV (80.0-100.0) fL MCH (25.0-35.0) pg MCHC (31.0-37.0) g/dL RDW (11.5-15.5) % Plt Count (150-450) k/uL MPV Neutrophils % % Lymphocytes % % Monocytes % % Eosinophils % % Basophils % % Neutrophils # (1.3-7.7) k/uL Lymphocytes # (1.0-4.8) k/uL Monocytes # (0-1.0) k/uL Eosinophils # (0-0.7) k/uL Basophils # (0-0.2) k/uL Manual Slide Review Hypochromasia Anisocytosis Macrocytosis Ovalocytes Fragmented RBCs PT (9.0-12.0) sec INR (<1.2) APTT (22.0-30.0) sec Sodium (137-145) mmol/L Potassium (3.5-5.1) mmol/L Chloride (98-107) mmol/L Carbon Dioxide (22-30) mmol/L Anion Gap mmol/L BUN (9-20) mg/dL Creatinine (0.66-1.25) mg/dL Est GFR (CKD-EPI)AfAm (>60 ml/min/1.73 sqM) Est GFR (CKD-EPI)NonAf (>60 ml/min/1.73 sqM) Glucose (74-99) mg/dL POC Glucose (mg/dL) (75-99) mg/dL POC Glu Residential Real Estate Assistant ID Plasma Lactic Acid Ralph (0.7-2.0) mmol/L Calcium (8.4-10.2) mg/dL Total Bilirubin (0.2-1.3) mg/dL AST (17-59) U/L ALT (4-49) U/L Alkaline Phosphatase (38-126) U/L Creatine Kinase (55-170) U/L Troponin I <0.012 (0.000-0.034) ng/mL Total Protein (6.3-8.2) g/dL Albumin (3.5-5.0) g/dL Urine Color Urine Appearance (Clear) Urine pH (5.0-8.0) Ur Specific [place] (1.001-1.035) Urine Protein (Negative) Urine Glucose (UA) (Negative) Urine Ketones (Negative) Urine Blood (Negative) Urine Nitrite (Negative) Urine Bilirubin (Negative) Urine Urobilinogen (<2.0) mg/dL Ur Leukocyte Esterase (Negative) Serum Alcohol mg/dL Blood Type O Positive Blood Type Recheck O Pos Bld Type Recheck Status No Antibody Screen NEGATIVE Spec Expiration Date 12/30/20202357 Critical Care Time Critical Care Time: Yes Total Critical Care Time: 33 Disposition Clinical Impression: Fall Disposition: HOME SELF-CARE Condition: Fair Instructions (If sedation given, give patient instructions): Fall Prevention for Older Adults (ED) Is patient prescribed a controlled substance at d/c from ED?: No Referrals: Darvin Hurd DO [Primary Care Provider] - 1-2 days Time of Disposition: 18:15
[2020-12-27 15:55] LABS: Glucose,Whole Blood 146 mg/dL (75-99)
[2020-12-27 16:04] LABS: Anisocytosis Slight; Basophils % (A) 0 %; Eosinophils # (A) 0.1 k/uL (0-0.7); Eosinophils % (A) 2 %; HCT 33.4 % (39.0-53.0); HGB 10.3 gm/dL (13.0-17.5); Hypochromasia Slight; Lymphocytes # (A) 1.5 k/uL (1.0-4.8); Lymphocytes % (A) 28 %; MCHC 30.8 g/dL (31.0-37.0); MCV 97.6 fL (80.0-100.0); Macrocytosis Slight; Mean Platelet Volume 13.5; Monocytes # (A) 0.3 k/uL (0-1.0); Monocytes % (A) 6 %; Neutrophils # (A) 3.4 k/uL (1.3-7.7); Neutrophils % (A) 62 %; RBC 3.42 m/uL (4.30-5.90); RDW 16.7 % (11.5-15.5); WBC 5.4 k/uL (3.8-10.6)
--- NOTE | 2020-12-27 16:10 | XR ---
EXAMINATION TYPE: XR pelvis AP view DATE OF EXAM: 12/27/2020 CLINICAL HISTORY: Pain from fall injury. TECHNIQUE: A single AP view of the pelvis is obtained. COMPARISON: CT abdomen and pelvis February 01, 2020. FINDINGS: There is no acute fracture/dislocation evident in the pelvis. [id number] axial joint space loss both hips, left greater than right. Sacroiliac joints are maintained. Pubic symphysis is intact. The overlying soft tissue appears unremarkable. Incidental moderate to severe disc space cristela rowing L4-L5 level. IMPRESSION: There is no acute fracture or dislocation in the pelvis.
--- NOTE | 2020-12-27 16:11 | XR ---
EXAMINATION TYPE: XR chest 1V portable DATE OF EXAM: 12/27/2020 COMPARISON: Chest x-ray May 25, 2019 HISTORY: Pain from fall injury. TECHNIQUE: Single AP portable frontal supine view of the chest is obtained. FINDINGS: There is mild chronic medical change without suspicious new focal air space opacity, pleur al effusion, or pneumothorax seen. The cardiac silhouette size remains enlarged with ectatic thoraci c aorta causing slight right sided tracheal deviation similar to prior. Multilevel spurring and disc space narrowing in the lower thoracic spine. IMPRESSION: Cardiomegaly without acute pulmonary process.
[2020-12-27 16:13] LABS: ALT 15 U/L (4-49); AST 20 U/L (17-59); African American GFR (CKD) 39 (>60 ml/min/1.73 sqM); Albumin 3.8 g/dL (3.5-5.0); Alcohol <10 mg/dL; Alkaline Phosphatase 78 U/L (38-126); Anion Gap 7 mmol/L; Blood Urea Nitrogen 49 mg/dL (9-20); Calcium 11.2 mg/dL (8.4-10.2); Carbon Dioxide 27 mmol/L (22-30); Chloride 109 mmol/L (98-107); Creatine Kinase 43 U/L (55-170); Glucose 148 mg/dL (74-99); Non-African American GFR(CKD) 33 (>60 ml/min/1.73 sqM); Potassium 4.1 mmol/L (3.5-5.1); Sodium 143 mmol/L (137-145); Total Bilirubin 0.4 mg/dL (0.2-1.3); Total Protein 6.2 g/dL (6.3-8.2)
[2020-12-27 16:17] LABS: Platelet Count 64 k/uL (150-450)
[2020-12-27 16:18] LABS: Prothrombin Time 10.8 sec (9.0-12.0)
[2020-12-27 16:19] LABS: Partial Thromboplastin Time 21.6 sec (22.0-30.0)
[2020-12-27 16:21] LABS: RBC Fragments Present
[2020-12-27 16:22] LABS: Ovalocytes Present
--- NOTE | 2020-12-27 16:30 | CT ---
EXAMINATION TYPE: CT brain cspine wo con DATE OF EXAM: 12/27/2020 COMPARISON: Trauma CT May 25, 2019 HISTORY: Fall today with posterior headache and neck pain. CT DLP: combined: 3850.6 mGycm. Automated Exposure Control for Dose Reduction was Utilized. TECHNIQUE: CT scan of the head and cervical spine are performed without contrast. FINDINGS: There is no acute intracranial hemorrhage or midline shift identified. Right frontal cran iotomy changes. Moderate ventricular and sulcal prominence. 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 New mode rate-sized high right acute parietal scalp hematoma. Cervical spine is visualized in its entirety from C1 through upper thoracic levels and demonstrates s table and satisfactory alignment without evidence of acute fracture or dislocation. Prevertebral sof t tissue remains within normal limits. The C1-C2 articulation is within normal limits on the coronal images. Some ossific fusion of the left C3-C4 lateral elements redemonstrated. Vertebral body heigh ts maintained. Moderate disc space narrowing and moderate to severe spurring C5-C6 and C6-C7 levels. Posterior spur disc complex effacing anterior thecal sac at these levels. Axial images show multileve l uncovertebral and facet degenerative changes bilaterally contributing to multilevel bilateral neura l foraminal narrowing. Lung apices show no pneumothorax. IMPRESSION: 1. There is no acute fracture or dislocation evident in the cervical spine. No significant change fro m prior. 2. No acute intracranial hemorrhage or midline shift is seen. New moderate size acute high right jennifer etal scalp hematoma otherwise no significant change from most recent prior.
--- NOTE | 2020-12-27 16:34 | CT ---
EXAMINATION TYPE: CT ChestAbdPelvis w con DATE OF EXAM: 12/27/2020 COMPARISON: CT abdomen and pelvis February 01, 2020. HISTORY: Fall today with posterior head injury. CT DLP: combined 3850.6 mGycm. Automated Exposure Control for Dose Reduction was Utilized. CONTRAST: CT scan of the thorax, abdomen and pelvis is performed with IV Contrast, patient injected with 100 mL of Isovue 300. FINDINGS: LUNGS: Located right hemidiaphragm and low lung volumes with dependent atelectasis in the lower lobes and additional mild right mid lung linear scarring and/or atelectasis. No pleural effusion or pneumo thorax. MEDIASTINUM: There are no greater than 1 cm noncalcified hilar or mediastinal lymph nodes. Scattered subcentimeter calcified thoracic lymph nodes No pericardial effusion is seen. Mild cardiomegaly. Co ronary artery calcification and/or stent in the LAD. 4 vessel origin from aortic arch which is normal variant LIVER/GB: Ovoid calcification lateral right upper quadrant may be in liver.. PANCREAS: Moderate generalized atrophy greatest in the pancreatic head. SPLEEN: No significant abnormality is seen. ADRENALS: No significant abnormality is seen. KIDNEYS: [place] left kidney not seen presumed congenitally or surgically absent. BOWEL: No significant abnormality is seen. GENITAL ORGANS: Prostate gland upper limits of normal in size. LYMPH NODES: No greater than 1cm abdominal or pelvic lymph nodes are appreciated. OSSEOUS STRUCTURES: [id number] multilevel spurring and disc space narrowing throughout the sp ine with scoliotic curvature. Multilevel vacuum disc phenomenon in the lumbar spine. Moderate axial j oint space loss and spurring of both hips. Facet arthropathy lower lumbar spine. OTHER: No significant additional abnormality is seen. IMPRESSION: No acute post traumatic finding particular no acute osseous fracture, abnormal fluid bimal ection, or evidence of solid organ injury in the thorax, abdomen, or pelvis.
[2020-12-27 17:05] VITALS: RESP 18
[2020-12-27 18:06] LABS: Appearance,Urine Clear (Clear); Bilirubin,Urine Negative (Negative); Blood,Urine Negative (Negative); Color,Urine Light Yellow; Glucose,Urine (UA) Negative (Negative); Ketones,Urine Negative (Negative); Leukocyte Esterase,Urine Negative (Negative); Nitrite,Urine Negative (Negative); Protein,Urine Negative (Negative); Specific Gravity,Urine 1.024 (1.001-1.035); Urobilinogen,Urine <2.0 mg/dL (<2.0)
[2020-12-27 18:28] LABS: Amphetamine Screen,Urine Not Detected (NotDetected); Barbiturate Screen,Urine Not Detected (NotDetected); Benzodiazepines Screen,Urine Not Detected (NotDetected); Cocaine Screen,Urine Not Detected (NotDetected); Methadone Screen, Urine Not Detected (NotDetected); Opiate Screen,Urine Not Detected (NotDetected); Oxycodone Screen, Urine Not Detected (NotDetected); Phencyclidine Screen,Urine Not Detected (NotDetected); Tricyclic Antidepressant,Urine Not Detected (NotDetected); Urn Cannabinoid Scrn Not Detected (NotDetected)
[2020-12-27 18:54] VITALS: BP 140/91; PULSE 68
[2020-12-27 18:55] VITALS: TEMP 97.8
== END 2020-12-27 18:50 | disposition home or self-care (01) ==
LOC: EC 15:42
DX: S00.03XA Contusion of scalp, initial encounter (principal); I48.91 Unspecified atrial fibrillation; J44.9 Chronic obstructive pulmonary disease, unspecified; F32.9 Major depressive disorder, single episode, unspecified; E11.36 Type 2 diabetes mellitus with diabetic cataract; E11.22 Type 2 diabetes mellitus with diabetic chronic kidney disease; I12.9 Hypertensive chronic kidney disease with stage 1 through stage 4 chronic kidney disease, or unspecified chronic kidney disease; N18.30 Chronic kidney disease, stage 3 unspecified; N40.0 Benign prostatic hyperplasia without lower urinary tract symptoms; M19.90 Unspecified osteoarthritis, unspecified site; H91.90 Unspecified hearing loss, unspecified ear; G20 Parkinson's disease; Z79.01 Long term (current) use of anticoagulants; Z79.899 Other long term (current) drug therapy; Z79.52 Long term (current) use of systemic steroids; Z90.5 Acquired absence of kidney; W10.9XXA Fall (on) (from) unspecified stairs and steps, initial encounter
CPT/HCPCS: 36415; 93005; 86900; 86901; 80053; 82550; 83605; 84484; 85025; 85610; 85730; 86850; 81003; 80306; 72170; 71045; 72125; 70450; 71260; 74177; 90715; 99291; 96360; 90471; G0480; Q9967; 80320

== ENCOUNTER → 2020-12-29 | Outpatient (CLI) | payer MEDICARE ==
--- NOTE | 2020-12-30 05:00 | US ---
EXAMINATION TYPE: US kidneys/renal and bladder DATE OF EXAM: 12/29/2020 COMPARISON: US & CT's CLINICAL HISTORY: N18.6 CKD stage 3. EXAM MEASUREMENTS: Right Kidney: 11.7 x 6.3 x 7.5 cm Left Kidney: Surgically absent Right Kidney: No hydronephrosis or masses seen, echogenic echotexture. Left Kidney: Surgically absent Bladder: wnl Bilateral Jets seen: No IMPRESSION: Right kidney is somewhat echogenic suggestive of medical renal disease. No evidence of renal mass or obstruction. Right kidney appears not significantly different than old ultrasound exam of 01/22/2018.
== END | disposition home or self-care (01) ==
LOC: RADUSWWP 13:28
PROVIDERS: ATTEND Internal Medicine Nephrology
DX: N18.30 Chronic kidney disease, stage 3 unspecified (principal)
CPT/HCPCS: 76770

== ENCOUNTER → 2021-04-09 | Outpatient (CLI) | payer MEDICARE ==
[2021-04-09 10:19] LABS: Appearance,Urine Clear (Clear); Bilirubin,Urine Negative (Negative); Blood,Urine Negative (Negative); Color,Urine Yellow; Glucose,Urine (UA) Negative (Negative); Ketones,Urine Negative (Negative); Leukocyte Esterase,Urine Negative (Negative); Nitrite,Urine Negative (Negative); Protein,Urine Negative (Negative); Specific Gravity,Urine 1.015 (1.001-1.035); Urobilinogen,Urine <2.0 mg/dL (<2.0)
[2021-04-09 14:59] LABS: HGB 10.7 g/dL (13.0-17.0); MCH 31.9 pg (27.0-32.0); MCHC 31.5 g/dL (32.0-37.0); MCV 101.5 fL (80.0-97.0); Platelet Count 59 X 10*3/uL (140-440); RBC 3.35 X 10*6/uL (4.40-5.60); RDW 14.7 % (11.5-14.5); WBC 6.37 X 10*3/uL (4.50-10.00)
[2021-04-09 15:13] LABS: % Iron Saturation 18.26 (15.00-50.00); African American GFR (CKD) 38.6 (60.0-200.0); Albumin 4.1 g/dL (3.80-4.90); Albumin/Globulin Ratio 1.78 (1.60-3.17); Calcium 9.1 mg/dL (8.7-10.3); Globulin 2.3 g/dL (1.6-3.3); Magnesium 2.1 mg/dL (1.5-2.4); Non-African American GFR(CKD) 33.3 (60.0-200.0); Phosphorus 4.1 mg/dL (2.4-5.1); Potassium 4.6 mmol/L (3.5-5.5); Total Bilirubin 0.5 mg/dL (0.3-1.2); Total Protein 6.4 g/dL (6.2-8.2); Uric Acid 4.9 mg/dL (3.7-8.7)
[2021-04-09 15:37] LABS: Ferritin 654.4 ng/mL (22.0-322.0)
== END | disposition home or self-care (01) ==
LOC: LABWHC1 09:09
PROVIDERS: ATTEND Nurse Practitioner Family
DX: N18.32 Chronic kidney disease, stage 3b (principal); D64.9 Anemia, unspecified; N39.0 Urinary tract infection, site not specified; N25.81 Secondary hyperparathyroidism of renal origin; E55.9 Vitamin D deficiency, unspecified; M10.9 Gout, unspecified
CPT/HCPCS: 36415; 80053; 81003; 82306; 82728; 83540; 83550; 83735; 83970; 84100; 84550; 85027

== ENCOUNTER → 2021-04-13 | Outpatient (CLI) | payer MEDICARE ==
--- NOTE | 2021-04-13 14:41 | XR ---
EXAMINATION TYPE: XR knee complete bilateral, XR knee standing AP BILAT DATE OF EXAM: 04/13/2021 CLINICAL HISTORY: Bilateral knee pain TECHNIQUE: Three views of the bilateral knee are obtained. Additional weightbearing frontal view seven ateral knees COMPARISON: Prior bilateral knee x-ray June 19, 2020. FINDINGS: There is no acute fracture/dislocation evident in either knee. Moderate to severe medial t ibiofemoral compartment joint space loss left knee with moderate medial spurring redemonstrated. Weig ht-bearing images show increased narrowing or severe narrowing similar to prior. Meniscal calcificati on is appreciated bilaterally. Moderate to severe narrowing and spurring patellofemoral compartment m ore prominent from prior. Right knee redemonstrate mild to moderate tricompartment joint space loss and mild spurring. There is increased narrowing becoming moderate to borderline severe medial tibiofemoral compartment on dynami c weightbearing images. Overlying soft tissue shows some clothing artifact. IMPRESSION: As above. No significant change or progression from prior. Findings more prominent in lef t knee redemonstrated.
== END | disposition home or self-care (01) ==
LOC: RADXRMAIN 13:47
PROVIDERS: ATTEND Family Medicine
DX: M25.851 Other specified joint disorders, right hip (principal); M25.852 Other specified joint disorders, left hip
CPT/HCPCS: 73565

== ENCOUNTER 2021-04-29 07:42 | Emergency (ER) | payer MEDICARE ==
[2021-04-29] MEDS ORDERED: ACETAMINOPHEN TAB 500 MG TAB PO STA (08:11)
[2021-04-29] MEDS ORDERED: IBUPROFEN 600 MG TAB PO STA (08:11)
[2021-04-29] MEDS ORDERED: ALBUTEROL HFA INHALER INHALATION STA (08:15)
--- NOTE | 2021-04-29 08:15 | ED ---
General Adult HPI - General Chief complaint: Fall Stated complaint: Fall Time Seen by Provider: 04/29/21 07:55 Source: patient, EMS, RN notes reviewed, old records reviewed Mode of arrival: EMS - History of Present Illness Initial comments: This is an 86-year-old male who presents emergency Department complaining of a fall today patient states he did hit his head. Patient denies being on Xarelto but there is documentation that he may be consult. Patient denies any loss of c onsciousness patient denies any dizziness. Patient denies any headache. Patient denies numbness weakness. Patient denies neck pain. Patient has temperature today when he arrived he was 100.5 and he states he's been coughing quite a bit last week. Patient denies any shortness of breath patient denies chest pain difficulty breathing. Patient states he came in because after he fell he had a hard time standing up because he had generalized weakness. Patient denies any abdominal pain patient's nausea vomiting diarrhea. Patient has a dysuria hematuria urinary frequency. Patient states he has no injury from the fall except for his head but he states he has no complaints about that at this time. - Related Data Home Medications Medication Instructions Recorded Confirmed Ferrous Sulfate [Feosol] 325 mg PO BID 03/25/14 04/29/21 Multivitamins, Thera [Multivitamin 1 tab PO DAILY 03/25/14 04/29/21 (formulary)] Ascorbic Acid [Vitamin C] 500 mg PO HS 11/21/16 04/29/21 Sertraline [Zoloft] 50 mg PO HS 01/25/20 04/29/21 allopurinoL [Zyloprim] 200 mg PO HS 01/25/20 04/29/21 Tolterodine Tartrate [Tolterodine 4 mg PO DAILY 04/29/21 04/29/21 Tartrate ER] guaiFENesin-DM 100-10MG/5ML 10 ml PO BID PRN 04/29/21 04/29/21 [Robitussin DM] Previous Rx's Medication Instructions Recorded Furosemide [Lasix] 20 mg PO DAILY #30 tab 02/03/20 Albuterol Inhaler [Ventolin Hfa 2 puff INHALATION RT-QID #18 gm 04/29/21 Inhaler] Azithromycin [Zithromax Tri-Tab] 500 mg PO DAILY #3 tab 04/29/21 Allergies Allergy/AdvReac Type Severity Reaction Status Date / Time No Known Allergies Allergy Verified 04/29/21 09:16 Review of Systems ROS Statement: Those systems with pertinent positive or pertinent negative responses have been documented in the HPI. ROS Other: All systems not noted in ROS Statement are negative. Past Medical History Past Medical History: Atrial Fibrillation, Cancer, COPD, Diabetes Mellitus, Eye Disorder, Hearing Disorder / Deafness, Hypertension, Pneumonia, Prostate Disorder, Renal Disease Additional Past Medical History / Comment(s): Pt recently admitted to [facility] on 01/25/20 with a mechanical fall/hematoma R buttock and acute blood loss anemia. Other hx: 2010 Brain cancer with surgery and radiation, L nephrectomy d/t deteriorating kidney, CKD stage III, BPH, chronic thrombocytopenia, chronic anemia, diet controlled diabetes, generalized arthritis, L2 compression fracture, blind R eye, RUBY blaterally, seasonal allergies History of Any Multi-Drug Resistant Organisms: None Reported Additional Past Surgical History / Comment(s): L nephrectomy, brain tumor removal, bilateral cataract removals, colonoscopy. Past Anesthesia/Blood Transfusion Reactions: No Reported Reaction Additional Past Anesthesia/Blood Transfusion Reaction / Comment(s): Pt has received blood in past without reaction. Past Psychological History: Depression Smoking Status: Never smoker Past Alcohol Use History: None Reported Past Drug Use History: None Reported - Past Family History Father Family Medical History: No Reported History Additional Family Medical History / Comment(s): Father was healthy. He at the age of 62yrs in a MVA. Mother Additional Family Medical History / Comment(s): Mother at the age of 86yrs of "heart problems." Brother(s) Additional Family Medical History / Comment(s): Patient has 3 brothers and one is passed from old age. Patient has 4 sisters with no major medical problems. Patient had 2 children one from muscular dystrophy and one is alive with no major medical problems. General Exam - General Exam Comments Initial Comments: GENERAL: Patient is well-developed and well-nourished. Patient is nontoxic and well- hydrated and is in mild distress. Patient is quite a harsh cough ENT: Neck is soft and supple. No significant lymphadenopathy is noted. Oropharynx is clear. Moist mucous membranes. Neck has full range of motion without eliciting any pain. EYES: The sclera were anicteric and conjunctiva were pink and moist. Extraocular movements were intact and pupils were equal round and reactive to light. Eyelids were unremarkable. PULMONARY: Patient has expiratory wheezing and crackles bilaterally CARDIOVASCULAR: Patient has an irregular heartbeat. ABDOMEN: Soft and nontender with normal bowel sounds. SKIN: Skin is clear with no lesions or rashes and otherwise unremarkable. NEUROLOGIC: Patient is alert and oriented x3. Cranial nerves II through XII are grossly intact. Motor and sensory are also intact. Normal speech, volume and content. Symmetrical smile. MUSCULOSKELETAL: Normal extremities with adequate strength and full range of motion. No lower extremity swelling or edema. No calf tenderness. LYMPHATICS: No significant lymphadenopathy is noted PSYCHIATRIC: Normal psychiatric evaluation. Course Vital Signs 04/29/21 04/29/21 04/29/21 07:51 09:19 09:20 Temperature 100.5 F H Pulse Rate 96 89 82 Respiratory 18 35 H 36 H Rate Blood Pressure 114/69 O2 Sat by Pulse 98 Oximetry 04/29/21 04/29/21 04/29/21 09:22 09:30 09:40 Temperature Pulse Rate 89 84 83 Respiratory 18 30 H 27 H Rate Blood Pressure 117/68 117/66 117/66 O2 Sat by Pulse 97 99 96 Oximetry 04/29/21 04/29/21 09:50 10:10 Temperature 99.0 F Pulse Rate 81 82 Respiratory 23 16 Rate Blood Pressure 117/66 116/71 O2 Sat by Pulse 99 98 Oximetry Medical Decision Making - Medical Decision Making EKG shows atrial fibrillation with occasional PVC at 91 bpm QRS is 136 Q-T intervals 384 QTC is 472. Patient's EKG shows no ST segment elevation or depression. Patient's chest x-ray shows right lower lobe pneumonia. Patient received 2 g of Rocephin emergency report. Patient was actually well and wanted to be discharged home did not want inpatient treatment. CT of the brain and C-spine showed no acute abnormality. Patient was able to ambulate without problem and again he insisted on going home. - Lab Data Result diagrams: 04/29/21 08:20 04/29/21 08:20 Lab Results 04/29/21 04/29/21 04/29/21 Range/Units 08:10 08:20 08:20 WBC 7.6 (3.8-10.6) k/uL RBC 3.47 L (4.30-5.90) m/uL Hgb 11.0 L (13.0-17.5) gm/dL Hct 34.2 L (39.0-53.0) % MCV 98.6 (80.0-100.0) fL MCH 31.8 (25.0-35.0) pg MCHC 32.3 (31.0-37.0) g/dL RDW 15.9 H (11.5-15.5) % Plt Count 70 L (150-450) k/uL MPV 13.7 Neutrophils % 78 % Lymphocytes % 12 % Monocytes % 8 % Eosinophils % 0 % Basophils % 0 % Neutrophils # 5.9 (1.3-7.7) k/uL Lymphocytes # 0.9 L (1.0-4.8) k/uL Monocytes # 0.6 (0-1.0) k/uL Eosinophils # 0.0 (0-0.7) k/uL Basophils # 0.0 (0-0.2) k/uL Manual Slide Review Performed Large Platelets Present Macrocytosis Slight PT 11.1 (9.0-12.0) sec INR 1.0 (<1.2) APTT 23.3 (22.0-30.0) sec Sodium (137-145) mmol/L Potassium (3.5-5.1) mmol/L Chloride (98-107) mmol/L Carbon Dioxide (22-30) mmol/L Anion Gap mmol/L BUN (9-20) mg/dL Creatinine (0.66-1.25) mg/dL Est GFR (CKD-EPI)AfAm (>60 ml/min/1.73 sqM) Est GFR (CKD-EPI)NonAf (>60 ml/min/1.73 sqM) Glucose (74-99) mg/dL Plasma Lactic Acid Ralph (0.7-2.0) mmol/L Calcium (8.4-10.2) mg/dL Total Bilirubin (0.2-1.3) mg/dL AST (17-59) U/L ALT (4-49) U/L Alkaline Phosphatase (38-126) U/L Total Protein (6.3-8.2) g/dL Albumin (3.5-5.0) g/dL Urine Color Urine Appearance (Clear) Urine pH (5.0-8.0) Ur Specific [place] (1.001-1.035) Urine Protein (Negative) Urine Glucose (UA) (Negative) Urine Ketones (Negative) Urine Blood (Negative) Urine Nitrite (Negative) Urine Bilirubin (Negative) Urine Urobilinogen (<2.0) mg/dL Ur Leukocyte Esterase (Negative) Urine RBC (0-5) /hpf Urine WBC (0-5) /hpf Ur Squamous Epith Cells (0-4) /hpf Hyaline Casts (0-2) /lpf Urine Mucus (None) /hpf Coronavirus (PCR) Not Detected (Not Detectd) 04/29/21 04/29/21 04/29/21 Range/Units 08:20 08:20 09:28 WBC (3.8-10.6) k/uL RBC (4.30-5.90) m/uL Hgb (13.0-17.5) gm/dL Hct (39.0-53.0) % MCV (80.0-100.0) fL MCH (25.0-35.0) pg MCHC (31.0-37.0) g/dL RDW (11.5-15.5) % Plt Count (150-450) k/uL MPV Neutrophils % % Lymphocytes % % Monocytes % % Eosinophils % % Basophils % % Neutrophils # (1.3-7.7) k/uL Lymphocytes # (1.0-4.8) k/uL Monocytes # (0-1.0) k/uL Eosinophils # (0-0.7) k/uL Basophils # (0-0.2) k/uL Manual Slide Review Large Platelets Macrocytosis PT (9.0-12.0) sec INR (<1.2) APTT (22.0-30.0) sec Sodium 140 (137-145) mmol/L Potassium 4.3 (3.5-5.1) mmol/L Chloride 110 H (98-107) mmol/L Carbon Dioxide 20 L (22-30) mmol/L Anion Gap 10 mmol/L BUN 41 H (9-20) mg/dL Creatinine 1.49 H (0.66-1.25) mg/dL Est GFR (CKD-EPI)AfAm 49 (>60 ml/min/1.73 sqM) Est GFR (CKD-EPI)NonAf 42 (>60 ml/min/1.73 sqM) Glucose 150 H (74-99) mg/dL Plasma Lactic Acid Ralph 1.4 (0.7-2.0) mmol/L Calcium 8.7 (8.4-10.2) mg/dL Total Bilirubin 1.4 H (0.2-1.3) mg/dL AST 23 (17-59) U/L ALT 13 (4-49) U/L Alkaline Phosphatase 59 (38-126) U/L Total Protein 6.2 L (6.3-8.2) g/dL Albumin 3.6 (3.5-5.0) g/dL Urine Color Yellow Urine Appearance Clear (Clear) Urine pH 5.0 (5.0-8.0) Ur Specific [place] 1.015 (1.001-1.035) Urine Protein Trace H (Negative) Urine Glucose (UA) Negative (Negative) Urine Ketones Negative (Negative) Urine Blood Trace H (Negative) Urine Nitrite Negative (Negative) Urine Bilirubin Negative (Negative) Urine Urobilinogen <2.0 (<2.0) mg/dL Ur Leukocyte Esterase Negative (Negative) Urine RBC <1 (0-5) /hpf Urine WBC 1 (0-5) /hpf Ur Squamous Epith Cells <1 (0-4) /hpf Hyaline Casts 3 H (0-2) /lpf Urine Mucus Rare H (None) /hpf Coronavirus (PCR) (Not Detectd) Disposition Clinical Impression: Fall, Pneumonia Disposition: HOME SELF-CARE Instructions (If sedation given, give patient instructions): Fall Prevention for Older Adults (ED), Pneumonia (ED) Prescriptions: Albuterol Inhaler [Ventolin Hfa Inhaler] 2 puff INHALATION RT-QID #18 gm Azithromycin [Zithromax Tri-Tab] 500 mg PO DAILY #3 tab Is patient prescribed a controlled substance at d/c from ED?: No Referrals: Darvin Hurd DO [Primary Care Provider] - 1-2 days Time of Disposition: 10:24
[2021-04-29 08:39] LABS: Basophils % (A) 0 %; Eosinophils % (A) 0 %; HCT 34.2 % (39.0-53.0); Lymphocytes # (A) 0.9 k/uL (1.0-4.8); Lymphocytes % (A) 12 %; MCH 31.8 pg (25.0-35.0); MCHC 32.3 g/dL (31.0-37.0); MCV 98.6 fL (80.0-100.0); Macrocytosis Slight; Mean Platelet Volume 13.7; Monocytes # (A) 0.6 k/uL (0-1.0); Monocytes % (A) 8 %; Neutrophils # (A) 5.9 k/uL (1.3-7.7); Neutrophils % (A) 78 %; RBC 3.47 m/uL (4.30-5.90); RDW 15.9 % (11.5-15.5); WBC 7.6 k/uL (3.8-10.6)
[2021-04-29 08:52] LABS: Albumin 3.6 g/dL (3.5-5.0); Calcium 8.7 mg/dL (8.4-10.2); Partial Thromboplastin Time 23.3 sec (22.0-30.0); Potassium 4.3 mmol/L (3.5-5.1); Prothrombin Time 11.1 sec (9.0-12.0); Total Bilirubin 1.4 mg/dL (0.2-1.3); Total Protein 6.2 g/dL (6.3-8.2)
[2021-04-29 09:11] LABS: Platelet Count 70 k/uL (150-450)
--- NOTE | 2021-04-29 09:12 | XR ---
EXAMINATION TYPE: XR chest 2V DATE OF EXAM: 04/29/2021 COMPARISON: Chest radiograph 12/27/2020 HISTORY: Cough TECHNIQUE: Frontal and lateral views of the chest are obtained. FINDINGS: The cardiomediastinal silhouette and pulmonary vasculature is within normal limits. Asymmetric patchy and hazy opacity at the right base. No pneumothorax. IMPRESSION: Hazy opacity at the right base could represent early airspace disease in the appropriate clinical setting.
[2021-04-29 09:13] LABS: Large Platelets Present
--- NOTE | 2021-04-29 09:41 | CT ---
EXAMINATION TYPE: CT brain cspine wo con DATE OF EXAM: 04/29/2021 COMPARISON: CT brain and C-spine December 27, 2020 HISTORY: Fall today with head injury. CT DLP: 1687.3 mGycm Automated exposure control for dose reduction was used. TECHNIQUE: CT scan of the head and cervical spine are performed without contrast. FINDINGS: Redemonstration of right frontal craniotomy with underlying encephalomalacia right fronta l lobe that extends to the ventricular surface. There is confluent hypodensity adjacent to the anteri or horn of the left lateral ventricle with ex vacuo dilatation. There is cerebral volume loss. The ve ntricles and sulci are concordant. There is no acute intracranial hemorrhage, mass effect, or midline shift identified. 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 Opacification at the floor of the right maxillary sinus. Remaining visualized paranasal sinuses and air cells are well-developed and pneumatized. No depressed skull fractures. William cisterna magna. Cervical spine is visualized in its entirety from C1 through upper thoracic levels and demonstrates satisfactory alignment without evidence of acute fracture or dislocation. Prevertebral soft tissue a ppears within normal limits. The C1-C2 articulation is unremarkable. Advanced degenerative changes of the cervical spine. Partially visualized groundglass opacity and tiny effusion in the right lung IMPRESSION: 1. There is no acute fracture or dislocation evident in the cervical spine. 2. 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 3. Partially visualized groundglass opacity and tiny effusion in the right lung. Correlate with dedic ated chest imaging.
[2021-04-29] MEDS ORDERED: cefTRIAXone IN SWFI 1,000 MG/10 ML SYRINGE IVP STA (09:46)
[2021-04-29 09:51] LABS: Appearance,Urine Clear (Clear); Bilirubin,Urine Negative (Negative); Blood,Urine Trace (Negative); Color,Urine Yellow; Glucose,Urine (UA) Negative (Negative); Hyaline Casts,Urine 3 /lpf (0-2); Ketones,Urine Negative (Negative); Leukocyte Esterase,Urine Negative (Negative); Mucus,Urine Rare /hpf; Nitrite,Urine Negative (Negative); Protein,Urine Trace (Negative); RBC,Urine <1 /hpf (0-5); Specific Gravity,Urine 1.015 (1.001-1.035); Squamous Epithelial Cell,Urine <1 /hpf (0-4); Urobilinogen,Urine <2.0 mg/dL (<2.0); WBC,Urine 1 /hpf (0-5)
[2021-04-29 10:12] VITALS: BP 116/71; PULSE 82; RESP 16; TEMP 99
== END 2021-04-29 11:08 | disposition home or self-care (01) ==
LOC: EC 07:42
DX: S09.90XA Unspecified injury of head, initial encounter (principal); J18.9 Pneumonia, unspecified organism; E11.22 Type 2 diabetes mellitus with diabetic chronic kidney disease; E11.36 Type 2 diabetes mellitus with diabetic cataract; I12.9 Hypertensive chronic kidney disease with stage 1 through stage 4 chronic kidney disease, or unspecified chronic kidney disease; N18.30 Chronic kidney disease, stage 3 unspecified; I48.91 Unspecified atrial fibrillation; F32.9 Major depressive disorder, single episode, unspecified; J44.9 Chronic obstructive pulmonary disease, unspecified; Z79.51 Long term (current) use of inhaled steroids; Z79.899 Other long term (current) drug therapy; W19.XXXA Unspecified fall, initial encounter
CPT/HCPCS: 36415; 93005; 80053; 83605; 85025; 85610; 85730; 81001; 87040; 87635; 71046; 72125; 70450; 99285; 96374; J0696

== ENCOUNTER 2021-04-29 16:05 | Inpatient (IN) | payer MEDICARE ==
[2021-04-29] MEDS ORDERED: predniSONE 20 MG TAB PO STA (16:45)
[2021-04-29] MEDS ORDERED: SODIUM CHLORIDE 0.9% 1,000 ML IV STA (16:45)
[2021-04-29] MEDS ORDERED: SODIUM CHLORIDE 0.9% 500 ML 500 ML IV STA (16:45)
[2021-04-29] MEDS ORDERED: IPRATROPIUM 0.5 MG/2.5 ML NEBU INHALATION STA (16:45)
[2021-04-29] MEDS ORDERED: ALBUTEROL NEBULIZED 2.5 MG/3 ML INHALATION STA (16:45)
[2021-04-29] MEDS ORDERED: CEFEPIME 2 GM in SODIUM CHLORIDE 0.9% 100 ML IVPB STA (16:46)
[2021-04-29 17:14] LABS: Basophils % (A) 0 %; Eosinophils # (A) 0.1 k/uL (0-0.7); Eosinophils % (A) 1 %; HGB 10.4 gm/dL (13.0-17.5); Lymphocytes # (A) 1.2 k/uL (1.0-4.8); Lymphocytes % (A) 17 %; MCH 32.1 pg (25.0-35.0); MCHC 32.4 g/dL (31.0-37.0); Macrocytosis Slight; Mean Platelet Volume 13.8; Monocytes # (A) 0.6 k/uL (0-1.0); Monocytes % (A) 8 %; Neutrophils # (A) 5.1 k/uL (1.3-7.7); Neutrophils % (A) 71 %; RBC 3.23 m/uL (4.30-5.90); RDW 15.8 % (11.5-15.5); WBC 7.2 k/uL (3.8-10.6)
[2021-04-29 17:24] LABS: INR 1.1 (<1.2); Prothrombin Time 11.2 sec (9.0-12.0)
[2021-04-29 17:25] LABS: Platelet Count 65 k/uL (150-450)
[2021-04-29 17:27] LABS: Albumin 3.4 g/dL (3.5-5.0); Calcium 8.6 mg/dL (8.4-10.2); Total Bilirubin 0.7 mg/dL (0.2-1.3)
--- NOTE | 2021-04-29 18:03 | ED ---
General Adult HPI - General Chief complaint: Upper Respiratory Infection Stated complaint: cold & cough Time Seen by Provider: 04/29/21 16:30 Source: patient, family, RN notes reviewed, old records reviewed Mode of arrival: wheelchair Limitations: no limitations - History of Present Illness Initial comments: 86-year-old male presenting for reevaluation of cough and dyspnea. Patient had been seen emergency department earlier today diagnosed with a right lower lobe pneumonia. He has had persisting cough, lethargy, and lightheadedness. He states he has had fever at home. He was tested for coronavirus in this was negative. He states he has been vaccinated. He reports that he's had a cough and does seem to cough more when he has anything to eat or drink. - Related Data Home Medications Medication Instructions Recorded Confirmed Ferrous Sulfate [Feosol] 325 mg PO BID 03/25/14 04/29/21 Multivitamins, Thera [Multivitamin 1 tab PO DAILY 03/25/14 04/29/21 (formulary)] Ascorbic Acid [Vitamin C] 500 mg PO HS 11/21/16 04/29/21 Sertraline [Zoloft] 50 mg PO HS 01/25/20 04/29/21 allopurinoL [Zyloprim] 200 mg PO HS 01/25/20 04/29/21 Tolterodine Tartrate [Tolterodine 4 mg PO DAILY 04/29/21 04/29/21 Tartrate ER] guaiFENesin-DM 100-10MG/5ML 10 ml PO BID PRN 04/29/21 04/29/21 [Robitussin DM] Previous Rx's Medication Instructions Recorded Furosemide [Lasix] 20 mg PO DAILY #30 tab 02/03/20 Albuterol Inhaler [Ventolin Hfa 2 puff INHALATION RT-QID #18 gm 04/29/21 Inhaler] Azithromycin [Zithromax Tri-Tab] 500 mg PO DAILY #3 tab 04/29/21 Allergies Allergy/AdvReac Type Severity Reaction Status Date / Time No Known Allergies Allergy Verified 04/29/21 16:25 Review of Systems ROS Statement: Those systems with pertinent positive or pertinent negative responses have been documented in the HPI. ROS Other: All systems not noted in ROS Statement are negative. Past Medical History Past Medical History: Atrial Fibrillation, Cancer, COPD, Diabetes Mellitus, Eye Disorder, Hearing Disorder / Deafness, Hypertension, Pneumonia, Prostate Disorder, Renal Disease Additional Past Medical History / Comment(s): Pt recently admitted to [facility] on 01/25/20 with a mechanical fall/hematoma R buttock and acute blood loss anemia. Other hx: 2010 Brain cancer with surgery and radiation, L nephrectomy d/t deteriorating kidney, CKD stage III, BPH, chronic thrombocytopenia, chronic anemia, diet controlled diabetes, generalized arthritis, L2 compression fracture, blind R eye, NOME blaterally, seasonal allergies History of Any Multi-Drug Resistant Organisms: None Reported Additional Past Surgical History / Comment(s): L nephrectomy, brain tumor removal, bilateral cataract removals, colonoscopy. Past Anesthesia/Blood Transfusion Reactions: No Reported Reaction Additional Past Anesthesia/Blood Transfusion Reaction / Comment(s): Pt has received blood in past without reaction. Past Psychological History: Depression Smoking Status: Never smoker Past Alcohol Use History: None Reported Past Drug Use History: None Reported - Past Family History Father Family Medical History: No Reported History Additional Family Medical History / Comment(s): Father was healthy. He at the age of 62yrs in a MVA. Mother Additional Family Medical History / Comment(s): Mother at the age of 86yrs of "heart problems." Brother(s) Additional Family Medical History / Comment(s): Patient has 3 brothers and one is passed from old age. Patient has 4 sisters with no major medical problems. Patient had 2 children one from muscular dystrophy and one is alive with no major medical problems. General Exam Limitations: no limitations General appearance: alert, in no apparent distress Head exam: Present: atraumatic, normocephalic Eye exam: Present: normal appearance, PERRL ENT exam: Present: normal exam Neck exam: Present: normal inspection. Absent: tenderness, meningismus Respiratory exam: Present: wheezes, rhonchi. Absent: respiratory distress Cardiovascular Exam: Present: regular rate, normal rhythm GI/Abdominal exam: Present: soft. Absent: distended, tenderness, guarding, rebound Extremities exam: Present: normal inspection, normal capillary refill. Absent: pedal edema Neurological exam: Present: alert, oriented X3, CN II-XII intact. Absent: motor sensory deficit Psychiatric exam: Present: normal affect, normal mood Skin exam: Present: warm, dry, intact. Absent: cyanosis, diaphoretic Course Vital Signs 04/29/21 04/29/21 04/29/21 16:25 16:38 17:19 Temperature 98.1 F Pulse Rate 86 91 84 Respiratory 20 18 Rate Blood Pressure 87/59 97/63 O2 Sat by Pulse 95 95 Oximetry 04/29/21 04/29/21 17:38 17:41 Temperature Pulse Rate 86 86 Respiratory 18 Rate Blood Pressure 102/71 O2 Sat by Pulse 93 L Oximetry Medical Decision Making - Medical Decision Making 86-year-old male presenting for repeat evaluation cough, dyspnea, lethargy. Initial blood pressures and 80 systolic. Patient given IV fluids, antibiotics, steroids and breathing treatment. He will be admitted for pneumonia. X-ray and Covid testing was performed on previous admission to the emergency department. Covid was negative. I did discuss case with Dr. Hair who will admit. Pulmonology placed on consult. - Lab Data Result diagrams: 04/29/21 17:01 04/29/21 17:01 Lab Results 04/29/21 04/29/21 04/29/21 Range/Units 17:01 17:01 17:01 WBC 7.2 (3.8-10.6) k/uL RBC 3.23 L (4.30-5.90) m/uL Hgb 10.4 L (13.0-17.5) gm/dL Hct 32.0 L (39.0-53.0) % MCV 99.0 (80.0-100.0) fL MCH 32.1 (25.0-35.0) pg MCHC 32.4 (31.0-37.0) g/dL RDW 15.8 H (11.5-15.5) % Plt Count 65 L (150-450) k/uL MPV 13.8 Neutrophils % 71 % Lymphocytes % 17 % Monocytes % 8 % Eosinophils % 1 % Basophils % 0 % Neutrophils # 5.1 (1.3-7.7) k/uL Lymphocytes # 1.2 (1.0-4.8) k/uL Monocytes # 0.6 (0-1.0) k/uL Eosinophils # 0.1 (0-0.7) k/uL Basophils # 0.0 (0-0.2) k/uL Macrocytosis Slight PT 11.2 (9.0-12.0) sec INR 1.1 (<1.2) APTT 27.0 (22.0-30.0) sec Sodium 138 (137-145) mmol/L Potassium 4.0 (3.5-5.1) mmol/L Chloride 110 H (98-107) mmol/L Carbon Dioxide 19 L (22-30) mmol/L Anion Gap 9 mmol/L BUN 45 H (9-20) mg/dL Creatinine 1.74 H (0.66-1.25) mg/dL Est GFR (CKD-EPI)AfAm 40 (>60 ml/min/1.73 sqM) Est GFR (CKD-EPI)NonAf 35 (>60 ml/min/1.73 sqM) Glucose 119 H (74-99) mg/dL Plasma Lactic Acid Ralph (0.7-2.0) mmol/L Calcium 8.6 (8.4-10.2) mg/dL Magnesium 2.0 (1.6-2.3) mg/dL Total Bilirubin 0.7 (0.2-1.3) mg/dL AST 19 (17-59) U/L ALT 13 (4-49) U/L Alkaline Phosphatase 57 (38-126) U/L Total Protein 6.0 L (6.3-8.2) g/dL Albumin 3.4 L (3.5-5.0) g/dL 04/29/21 Range/Units 17:01 WBC (3.8-10.6) k/uL RBC (4.30-5.90) m/uL Hgb (13.0-17.5) gm/dL Hct (39.0-53.0) % MCV (80.0-100.0) fL MCH (25.0-35.0) pg MCHC (31.0-37.0) g/dL RDW (11.5-15.5) % Plt Count (150-450) k/uL MPV Neutrophils % % Lymphocytes % % Monocytes % % Eosinophils % % Basophils % % Neutrophils # (1.3-7.7) k/uL Lymphocytes # (1.0-4.8) k/uL Monocytes # (0-1.0) k/uL Eosinophils # (0-0.7) k/uL Basophils # (0-0.2) k/uL Macrocytosis PT (9.0-12.0) sec INR (<1.2) APTT (22.0-30.0) sec Sodium (137-145) mmol/L Potassium (3.5-5.1) mmol/L Chloride (98-107) mmol/L Carbon Dioxide (22-30) mmol/L Anion Gap mmol/L BUN (9-20) mg/dL Creatinine (0.66-1.25) mg/dL Est GFR (CKD-EPI)AfAm (>60 ml/min/1.73 sqM) Est GFR (CKD-EPI)NonAf (>60 ml/min/1.73 sqM) Glucose (74-99) mg/dL Plasma Lactic Acid Ralph 1.2 (0.7-2.0) mmol/L Calcium (8.4-10.2) mg/dL Magnesium (1.6-2.3) mg/dL Total Bilirubin (0.2-1.3) mg/dL AST (17-59) U/L ALT (4-49) U/L Alkaline Phosphatase (38-126) U/L Total Protein (6.3-8.2) g/dL Albumin (3.5-5.0) g/dL Disposition Clinical Impression: Pneumonia, COPD (chronic obstructive pulmonary disease) Disposition: ADMITTED IP TO THIS [facility] Condition: Stable Is patient prescribed a controlled substance at d/c from ED?: No Referrals: Darvin Hurd DO [Primary Care Provider] - 1-2 days Decision to Admit Reason: Admit from EC Decision Date: 04/29/21 Decision Time: 18:07
[2021-04-29] MEDS ORDERED: AZITHROMYCIN 500 MG in SODIUM CHLORIDE 0.9% 250 ML IVPB STA (18:04)
[2021-04-29] MEDS ORDERED: PNEUMONIA PROTOCOL UTILIZED 1 EACH MISC PO PRN (18:04)
[2021-04-29] MEDS: ALBUTEROL NEBULIZED 2.5 MG/3 ML INHALATION SCH ×2 (21:08→21:10)
[2021-04-29] MEDS: MELATONIN 3 MG TABLET PO SCH (22:49)
[2021-04-29] MEDS ORDERED: AZITHROMYCIN 500 MG in SODIUM CHLORIDE 0.9% 250 ML IVPB ONE (23:00)
[2021-04-29] MEDS: methylPREDNISolone SOD SUCCI 125 MG/2 ML VIAL IV SCH (23:09)
[2021-04-30 03:44] LABS: Glucose,Whole Blood 270 mg/dL (75-99)
[2021-04-30] MEDS: methylPREDNISolone SOD SUCCI 125 MG/2 ML VIAL IV SCH (05:46)
[2021-04-30] MEDS ORDERED: CEFEPIME 2 GM in SODIUM CHLORIDE 0.9% 100 ML IVPB SCH ×3 (06:00)
[2021-04-30] MEDS: ALBUTEROL NEBULIZED 2.5 MG/3 ML INHALATION SCH (07:12)
[2021-04-30] MEDS: MULTIVITAMINS, THERA 1 EACH TAB PO SCH (07:53)
[2021-04-30] MEDS: OXYBUTYNIN XL 5 MG TAB.ER.24 PO SCH (07:53)
[2021-04-30] MEDS: FUROSEMIDE 20 MG TAB PO SCH (07:53)
[2021-04-30] MEDS: FERROUS SULFATE 325 MG TAB PO SCH ×2 (07:54→21:27)
[2021-04-30 07:57] LABS: Glucose,Whole Blood 266 mg/dL (75-99)
[2021-04-30] MEDS: INSULIN ASPART (NovoLOG) 100 UNIT/ML VIAL SQ SCH ×4 (08:01→21:27)
[2021-04-30] MEDS ORDERED: IPRATROPIUM-ALBUTEROL 3 ML NEB INHALATION PRN (10:14)
[2021-04-30] MEDS: IPRATROPIUM-ALBUTEROL 3 ML NEB INHALATION SCH ×3 (11:07→19:33)
[2021-04-30 11:50] LABS: Glucose,Whole Blood 310 mg/dL (75-99)
[2021-04-30] MEDS ORDERED: INSULIN ASPART (NovoLOG) 100 UNIT/ML VIAL SQ ONE ×2 (12:23→12:28)
--- NOTE | 2021-04-30 12:25 | P.CNPUL ---
History of Present Illness Consult date: 04/30/21 Requesting physician: Catherine Hair Reason for consult: dyspnea, abnormal CXR/CT Chief complaint: Shortness of breath, cough, congestion History of present illness: This is an 86-year-old gentleman with a history of chronic atrial fibrillation, chronic kidney disease stage III, diabetes mellitus, Parkinson's disease, BPH, COPD from previous tobacco dependence. 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 No acute injuries. The patient was complaining of some cough and congestion was discharged on azithromycin and albuterol. The patient however returned later in the afternoon for similar respiratory symptoms and was admitted for possible early pneumonia in the right lung base. He is seen today in consultation on the regular medical floor. Awake, alert in no acute distress. Maintaining O2 saturation in the 90s on 3 L/m per nasal cannula. He is afebrile. White count 7.2. Hemoglobin 10.4. Platelet count 65,000. Sodium 138. Potassium 4.0. Creatinine 1.74. Glucose 266. He's been initiated on DuoNeb inhalations, IV steroids and antibiotics in the form of cefepime. Review of Systems REVIEW OF SYSTEMS: CONSTITUTIONAL: Denies any recent significant weight loss or weight gain. EYES: Denies change in vision. EARS, NOSE, MOUTH, THROAT: Denies headaches, denies sore throat. CARDIOVASCULAR: Denies chest pain, palpitations or syncopal episodes. RESPIRATORY: Positive for shortness of breath, cough, congestion no hemoptysis. GASTROINTESTINAL: Denies change in appetite, denies abdominal pain GENITOURINARY: Denies hematuria, denies infections. MUSKULOSKELETAL: Denies pain, denies swelling. INTEGUMENTARY: Denies rash, denies eczema. NEUROLOGICAL: Denies recent memory loss, no recent seizure activity. PSYCHIATRIC: Denies anxiety, denies depression. HEMATOLOGIC/LYMPHATIC: Denies anemia, denies enlarged lymph nodes. Past Medical History Past Medical History: Atrial Fibrillation, Cancer, COPD, Diabetes Mellitus, Eye Disorder, Hearing Disorder / Deafness, Hypertension, Pneumonia, Prostate Disorder, Renal Disease Additional Past Medical History / Comment(s): Pt recently admitted to [facility] on 01/25/20 with a mechanical fall/hematoma R buttock and acute blood loss anemia. Other hx: 2010 Brain cancer with surgery and radiation, L nephrectomy d/t deteriorating kidney, CKD stage III, BPH, chronic thrombocytopenia, chronic anemia, diet controlled diabetes, generalized arthritis, L2 compression fracture, blind R eye, [place] blaterally, seasonal allergies History of Any Multi-Drug Resistant Organisms: None Reported Additional Past Surgical History / Comment(s): L nephrectomy, brain tumor removal, bilateral cataract removals, colonoscopy. Past Anesthesia/Blood Transfusion Reactions: No Reported Reaction Additional Past Anesthesia/Blood Transfusion Reaction / Comment(s): Pt has received blood in past without reaction. Past Psychological History: Depression Additional Psychological History / Comment(s): Pt resides with his spouse. He is independent. He uses a crutch to ambulate. He states he is not receiving any home care. Smoking Status: Never smoker Past Alcohol Use History: None Reported Additional Past Alcohol Use History / Comment(s): Pt cannot recall when he started smoking, stating he smoked on and off for years but he quit smoking in 1977. Past Drug Use History: None Reported - Past Family History Father Family Medical History: No Reported History Additional Family Medical History / Comment(s): Father was healthy. He at the age of 62yrs in a MVA. Mother Additional Family Medical History / Comment(s): Mother at the age of 86yrs of "heart problems." Brother(s) Additional Family Medical History / Comment(s): Patient has 3 brothers and one is passed from old age. Patient has 4 sisters with no major medical problems. Patient had 2 children one from muscular dystrophy and one is alive with no major medical problems. Medications and Allergies Home Medications Medication Instructions Recorded Confirmed Type Ferrous Sulfate [Feosol] 325 mg PO BID 03/25/14 04/29/21 History Multivitamins, Thera [Multivitamin 1 tab PO DAILY 03/25/14 04/29/21 History (formulary)] Ascorbic Acid [Vitamin C] 500 mg PO HS 11/21/16 04/29/21 History Sertraline [Zoloft] 50 mg PO HS 01/25/20 04/29/21 History allopurinoL [Zyloprim] 200 mg PO HS 01/25/20 04/29/21 History Furosemide [Lasix] 20 mg PO DAILY #30 tab 02/03/20 04/29/21 Rx Albuterol Inhaler [Ventolin Hfa 2 puff INHALATION RT-QID #18 gm 04/29/21 04/29/21 Rx Inhaler] Azithromycin [Zithromax Tri-Tab] 500 mg PO DAILY #3 tab 04/29/21 04/29/21 Rx Tolterodine Tartrate [Tolterodine 4 mg PO DAILY 04/29/21 04/29/21 History Tartrate ER] guaiFENesin-DM 100-10MG/5ML 10 ml PO BID PRN 04/29/21 04/29/21 History [Robitussin DM] Allergies Allergy/AdvReac Type Severity Reaction Status Date / Time No Known Allergies Allergy Verified 04/29/21 16:25 Physical Exam Vitals: Vital Signs Temp Pulse Pulse Resp BP BP Pulse Ox 04/30/21 11:18 62 18 04/30/21 11:07 60 18 04/30/21 07:47 97.4 F L 52 L 17 120/63 96 04/30/21 07:23 76 04/30/21 07:15 72 04/30/21 02:00 97.7 F 80 17 115/66 99 04/29/21 20:00 92 18 04/29/21 19:31 99.4 F 92 18 146/73 95 04/29/21 18:48 108 H 22 126/74 99 04/29/21 17:41 86 18 102/71 93 L 04/29/21 17:38 86 04/29/21 17:19 84 04/29/21 16:38 91 18 97/63 95 04/29/21 16:25 98.1 F 86 20 87/59 95 Intake and Output 04/29/21 04/30/21 04/30/21 22:59 06:59 14:59 Intake Total 380 Output Total 800 Balance -420 Intake: Oral 380 Output: Urine 800 Other: Voiding Method Toilet Toilet Urinal Urinal Incontinent # Voids 1 Weight 95.254 kg GENERAL EXAM: Alert, frail, hard of hearing 86-year-old gentleman, on 3 L nasal cannula, comfortable in no apparent distress. HEAD: Normocephalic. EYES: Normal reaction of pupils, equal size. NOSE: Clear with pink turbinates. THROAT: No erythema or exudates. NECK: No masses, no JVD. CHEST: No chest wall deformity. LUNGS: Equal air entry with few scattered crackles in the right lung base. CVS: S1 and S2 normal with no audible murmur, regular rhythm. ABDOMEN: No hepatosplenomegaly, normal bowel sounds, no guarding or rigidity. SPINE: No scoliosis or deformity SKIN: No rashes CENTRAL NERVOUS SYSTEM: No focal deficits, tone is normal in all 4 extremities. EXTREMITIES: There is no peripheral edema. No clubbing, no cyanosis. Peripheral pulses are intact. Results - Laboratory Findings CBC and BMP: 04/29/21 17:04/29/21 17:01 PT/INR, D-dimer PT 11.2 sec (9.0-12.0) 04/29/21 17: INR 1.1 (<1.2) 04/29/21 17:01 Abnormal lab findings: Abnormal Labs 04/29/21 04/29/21 04/30/21 17:01 17:01 03:43 RBC 3.23 L Hgb 10.4 L Hct 32.0 L RDW 15.8 H Plt Count 65 L Chloride 110 H Carbon Dioxide 19 L BUN 45 H Creatinine 1.74 H Glucose 119 H POC Glucose (mg/dL) 270 H Total Protein 6.0 L Albumin 3.4 L 04/30/21 04/30/21 07:56 11:49 RBC Hgb Hct RDW Plt Count Chloride Carbon Dioxide BUN Creatinine Glucose POC Glucose (mg/dL) 266 H 310 H Total Protein Albumin - Diagnostic Findings Chest x-ray: image reviewed Assessment and Plan Assessment: 1 Acute hypoxic respiratory failure secondary to an acute right lower lung community acquired pneumonia 2 Acute on chronic renal failure 3 Chronic atrial fibrillation not on anticoagulants in the outpatient setting 4 Recent fall without acute injury, previous hospitalization in January 2020 post fall and large hematoma and acute blood loss 5 History of Parkinson's disease 6 Benign prostatic hyperplasia 7 History of depression 8 Diabetes mellitus Plan: The patient was seen and evaluated by Dr. Roth Chest x-ray and labs reviewed Discontinue cefepime, add ceftriaxone and azithromycin Discontinue IV Solu Medrol Continue bronchodilators Follow-up chest x-ray in a.m. Titrate the FiO2 as tolerated We will continue to follow and make further recommendations based on his clinical status I, the cosigning physician, performed a history & physical examination of the p atient. Lungs sounds with crackles in the right lung base. Maintaining good O2 saturations in the 90s on 3 L/m per nasal cannula. I discussed the assessment and plan of care with my nurse practitioner, Jacquie Rodriguez. I attest to the above consultation as dictated by her. Time with Patient: Greater than 30
[2021-04-30] MEDS: guaiFENesin-DM 100-10MG/5ML 10 ML CUP PO PRN ×2 (12:38→21:30)
[2021-04-30] MEDS ORDERED: VANCOMYCIN IV PER PHARMACY 1 EACH MISC MISCELLANE PRN (14:17)
[2021-04-30] MEDS ORDERED: VANCOMYCIN 1,000 MG in SODIUM CHLORIDE 0.9% 250 ML IVPB STA (14:17)
--- NOTE | 2021-04-30 14:34 | P.HPIM ---
History of Present Illness H&P Date: 04/30/21 Chief Complaint: Fever cough shortness of breath This is a pleasant 86-year-old gentleman, with known history of atrial fibrillation, COPD, cancer, diabetes mellitus, deafness, recurrent pneumonia, BPH, CK D, admitted to emergency room secondary to cough and shortness of b reath. Patient cannot recollect how long he's been sick, however he mentions that whenever she eats, he coughs. Patient lives with the , and denies any sick contact. He has fever around 100, he was tested for Covid negative, and has been vaccinated. He sees with his local director check, for which anticoagulation has been discontinued about 3-4 months ago Emergency room, he was found to have pneumonia, they have called and notified me about the possibility culture gram-positive cocci. Patient has no falls, however she ambulates with assist devices, when only his knees bad on no O2 requ irements at home, unknown whether he uses a nebulizer not. In the emergency room, started on Rocephin and Zithromax, we'll going to obtain speech therapies along with consult to pulmonary medicine, Dr. Roth, O2 supplementation this time, and change his antibiotic to Zosyn and vancomycin. Pending blood culture identification of the gram-positive cocci. Review of Systems Constitutional: Reports as per HPI, Reports anorexia, Reports chills, Denies chronic headaches, Denies chronic pain, Denies daytime sleepiness, Denies fatigue, Denies fever, Denies lethargy, Denies malaise, Denies night sweats, Denies poor appetite, Denies sweats, Denies weakness, Denies weight gain, Denies weight loss Ears: bilateral: decreased hearing Ears, nose, mouth and throat: Reports as per HPI, Denies ant. neck pain, Denies bleeding gums, Denies dental pain, Denies dysphagia, Denies epistaxis, Denies headache, Denies hoarseness, Denies mouth pain, Denies nasal congestion, Denies nasal discharge, Denies neck fullness/pressure, Denies neck lump, Denies nose pain, Denies odynophagia, Denies post-nasal drip, Denies sinus pain, Denies sinus pressure, Denies swelling in mouth, Denies swelling in throat, Denies sore throat, Denies vertigo, Denies voice changes Cardiovascular: Reports as per HPI, Reports decreased exercise tolerance, Reports dyspnea on exertion, Reports shortness of breath Gastrointestinal: Reports as per HPI, Denies excessive gas, Denies hematemesis, Denies hematochezia, Denies indigestion Genitourinary: Reports as per HPI, Denies hematuria, Denies kidney stones, Denies urinary hesitancy, Denies urinary retention Musculoskeletal: Reports as per HPI, Reports gait dysfunction, Reports limitation of motion Integumentary: Reports as per HPI, Denies acne, Denies boils, Denies brittle nails, Denies change in hair/nails, Denies color changes, Denies darkening of skin, Denies depigmentation, Denies dryness, Denies foot/leg ulcers, Denies growths, Denies hirsutism, Denies lesions, Denies onychomycosis, Denies pruritus, Denies rash, Denies sores, Denies striae, Denies unusual bruising, Denies wounds Neurological: Reports as per HPI, Reports balance difficulties, Reports confusion, Reports gait dysfunction, Reports memory loss, Reports weakness Psychiatric: Reports as per HPI, Reports difficulty concentrating, Reports i nsomnia, Reports sleep disturbances Endocrine: Reports as per HPI, Denies cold intolerance, Denies deepening of the voice, Denies excessive sweating, Denies excessive thirst, Denies fatigue, Denies flushing, Denies heat intolerance, Denies high blood sugars, Denies increase in ring/shoe/hat size, Denies low blood sugars, Denies nocturia, Denies palpitations, Denies polydipsia, Denies polyphagia, Denies polyuria, Denies proptosis, Denies recent glucocorticoid use, Denies thyroid mass, Denies weight change Hematologic/Lymphatic: Reports as per HPI, Denies easy bleeding, Denies easy bruising, Denies lymphadenopathy, Denies lymphedema, Denies thrombophilia Allergic/Immunologic: Reports as per HPI, Denies allergic rhinitis, Denies anaphylaxis, Denies angioedema, Denies gluten intolerance, Denies persistent infections, Denies seasonal allergies, Denies urticaria, Denies wheezing Past Medical History Past Medical History: Atrial Fibrillation, Cancer, COPD, Diabetes Mellitus, Eye Disorder, Hearing Disorder / Deafness, Hypertension, Pneumonia, Prostate Disorder, Renal Disease Additional Past Medical History / Comment(s): Pt recently admitted to [facility] on 01/25/20 with a mechanical fall/hematoma R buttock and acute blood loss anemia. Other hx: 2010 Brain cancer with surgery and radiation, L nephrectomy d/t deteriorating kidney, CKD stage III, BPH, chronic thrombocytopenia, chronic anemia, diet controlled diabetes, generalized arthritis, L2 compression fracture, blind R eye, [place] blaterally, seasonal allergies History of Any Multi-Drug Resistant Organisms: None Reported Additional Past Surgical History / Comment(s): L nephrectomy, brain tumor removal, bilateral cataract removals, colonoscopy. Past Anesthesia/Blood Transfusion Reactions: No Reported Reaction Additional Past Anesthesia/Blood Transfusion Reaction / Comment(s): Pt has received blood in past without reaction. Past Psychological History: Depression Additional Psychological History / Comment(s): Pt resides with his spouse. He is independent. He uses a crutch to ambulate. He states he is not receiving any home care. Smoking Status: Never smoker Past Alcohol Use History: None Reported Additional Past Alcohol Use History / Comment(s): Pt cannot recall when he started smoking, stating he smoked on and off for years but he quit smoking in 1977. Past Drug Use History: None Reported - Past Family History Father Family Medical History: No Reported History Additional Family Medical History / Comment(s): Father was healthy. He at the age of 62yrs in a MVA. Mother Additional Family Medical History / Comment(s): Mother at the age of 86yrs of "heart problems." Brother(s) Additional Family Medical History / Comment(s): Patient has 3 brothers and one is passed from old age. Patient has 4 sisters with no major medical problems. Patient had 2 children one from muscular dystrophy and one is alive with no major medical problems. Medications and Allergies Home Medications Medication Instructions Recorded Confirmed Type Ferrous Sulfate [Feosol] 325 mg PO BID 03/25/14 04/29/21 History Multivitamins, Thera [Multivitamin 1 tab PO DAILY 03/25/14 04/29/21 History (formulary)] Ascorbic Acid [Vitamin C] 500 mg PO HS 11/21/16 04/29/21 History Sertraline [Zoloft] 50 mg PO HS 01/25/20 04/29/21 History allopurinoL [Zyloprim] 200 mg PO HS 01/25/20 04/29/21 History Furosemide [Lasix] 20 mg PO DAILY #30 tab 02/03/20 04/29/21 Rx Albuterol Inhaler [Ventolin Hfa 2 puff INHALATION RT-QID #18 gm 04/29/21 04/29/21 Rx Inhaler] Azithromycin [Zithromax Tri-Tab] 500 mg PO DAILY #3 tab 04/29/21 04/29/21 Rx Tolterodine Tartrate [Tolterodine 4 mg PO DAILY 04/29/21 04/29/21 History Tartrate ER] guaiFENesin-DM 100-10MG/5ML 10 ml PO BID PRN 04/29/21 04/29/21 History [Robitussin DM] Allergies Allergy/AdvReac Type Severity Reaction Status Date / Time No Known Allergies Allergy Verified 04/29/21 16:25 Physical Exam Vitals: Vital Signs Temp Pulse Pulse Resp BP BP Pulse Ox 04/30/21 11:18 62 18 04/30/21 11:07 60 18 04/30/21 07:47 97.4 F L 52 L 17 120/63 96 04/30/21 07:23 76 04/30/21 07:15 72 04/30/21 02:00 97.7 F 80 17 115/66 99 04/29/21 20:00 92 18 04/29/21 19:31 99.4 F 92 18 146/73 95 04/29/21 18:48 108 H 22 126/74 99 04/29/21 17:41 86 18 102/71 93 L 04/29/21 17:38 86 04/29/21 17:19 84 04/29/21 16:38 91 18 97/63 95 04/29/21 16:25 98.1 F 86 20 87/59 95 Intake and Output 04/29/21 04/30/21 04/30/21 22:59 06:59 14:59 Intake Total 380 Output Total 800 Balance -420 Intake: Oral 380 Output: Urine 800 Other: Voiding Method Toilet Toilet Urinal Urinal Incontinent # Voids 1 Weight 95.254 kg - Constitutional General appearance: cooperative, no acute distress - EENT Eyes: anicteric sclerae, PERRLA, dentition normal, normal appearance ENT: hard of hearing, NA/AT - Neck Neck: normal ROM - Respiratory Respiratory: bilateral: CTA, negative: diminished, dullness - Cardiovascular Rhythm: regular Heart sounds: normal: S1, S2 Abnormal Heart Sounds: no systolic murmur, no diastolic murmur, no rub, no S3 Gallop, no S4 Gallop, no click, no other - Gastrointestinal General gastrointestinal: normal bowel sounds, soft - Integumentary Integumentary: decreased turgor, normal - Neurologic Neurologic: CNII-XII intact - Musculoskeletal Musculoskeletal: gait normal, strength equal bilaterally - Psychiatric Psychiatric: A&O x's 3, appropriate affect, intact judgment & insight Results CBC & Chem 7: 04/29/21 17:01 04/29/21 17:01 Labs: Abnormal Lab Results - Last 24 Hours (Table) 04/29/21 04/29/21 04/30/21 Range/Units 17:01 17:01 03:43 RBC 3.23 L (4.30-5.90) m/uL Hgb 10.4 L (13.0-17.5) gm/dL Hct 32.0 L (39.0-53.0) % RDW 15.8 H (11.5-15.5) % Plt Count 65 L (150-450) k/uL Chloride 110 H (98-107) mmol/L Carbon Dioxide 19 L (22-30) mmol/L BUN 45 H (9-20) mg/dL Creatinine 1.74 H (0.66-1.25) mg/dL Glucose 119 H (74-99) mg/dL POC Glucose (mg/dL) 270 H (75-99) mg/dL Total Protein 6.0 L (6.3-8.2) g/dL Albumin 3.4 L (3.5-5.0) g/dL 04/30/21 04/30/21 Range/Units 07:56 11:49 RBC (4.30-5.90) m/uL Hgb (13.0-17.5) gm/dL Hct (39.0-53.0) % RDW (11.5-15.5) % Plt Count (150-450) k/uL Chloride (98-107) mmol/L Carbon Dioxide (22-30) mmol/L BUN (9-20) mg/dL Creatinine (0.66-1.25) mg/dL Glucose (74-99) mg/dL POC Glucose (mg/dL) 266 H 310 H (75-99) mg/dL Total Protein (6.3-8.2) g/dL Albumin (3.5-5.0) g/dL Laboratory Results WBC 7.2 k/uL (3.8-10.6) 04/29/21 17:01 RBC 3.23 m/uL (4.30-5.90) L 04/29/21 17:01 Hgb 10.4 gm/dL (13.0-17.5) L 04/29/21 17:01 Hct 32.0 % (39.0-53.0) L 04/29/21 17:01 MCV 99.0 fL (80.0-100.0) 04/29/21 17: MCH 32.1 pg (25.0-35.0) 04/29/21 17: MCHC 32.4 g/dL (31.0-37.0) 04/29/21 17:01 RDW 15.8 % (11.5-15.5) H 04/29/21 17:01 Plt Count 65 k/uL (150-450) L 04/29/21 17:01 MPV 13.8 04/29/21 17:01 Neutrophils % 71 % 04/29/21 17: Lymphocytes % 17 % 04/29/21 17:01 Monocytes % 8 % 04/29/21 17:01 Eosinophils % 1 % 04/29/21 17:01 Basophils % 0 % 04/29/21 17:01 Neutrophils # 5.1 k/uL (1.3-7.7) 04/29/21 17:01 Lymphocytes # 1.2 k/uL (1.0-4.8) 04/29/21 17:01 Monocytes # 0.6 k/uL (0-1.0) 04/29/21 17:01 Eosinophils # 0.1 k/uL (0-0.7) 04/29/21 17:01 Basophils # 0.0 k/uL (0-0.2) 04/29/21 17:01 Macrocytosis Slight 04/29/21 17: PT 11.2 sec (9.0-12.0) 04/29/21 17: INR 1.1 (<1.2) 04/29/21 17:01 APTT 27.0 sec (22.0-30.0) 04/29/21 17:01 Sodium 138 mmol/L (137-145) 04/29/21 17:01 Potassium 4.0 mmol/L (3.5-5.1) 04/29/21 17:01 Chloride 110 mmol/L (98-107) H 04/29/21 17:01 Carbon Dioxide 19 mmol/L (22-30) L 04/29/21 17:01 Anion Gap 9 mmol/L 04/29/21 17:01 BUN 45 mg/dL (9-20) H 04/29/21 17:01 Creatinine 1.74 mg/dL (0.66-1.25) H 04/29/21 17:01 Est GFR (CKD-EPI)AfAm 40 (>60 ml/min/1.73 sqM) 04/29/21 17:01 Est GFR (CKD-EPI)NonAf 35 (>60 ml/min/1.73 sqM) 04/29/21 17:01 Glucose 119 mg/dL (74-99) H 04/29/21 17:01 POC Glucose (mg/dL) 310 mg/dL (75-99) H 04/30/21 11:49 POC Glu Senior [employer] Ashanti Francis 04/30/21 11:49 Plasma Lactic Acid Ralph 1.2 mmol/L (0.7-2.0) 04/29/21 17:01 Calcium 8.6 mg/dL (8.4-10.2) 04/29/21 17: Magnesium 2.0 mg/dL (1.6-2.3) 04/29/21 17:01 Total Bilirubin 0.7 mg/dL (0.2-1.3) 04/29/21 17:01 AST 19 U/L (17-59) 04/29/21 17:01 ALT 13 U/L (4-49) 04/29/21 17:01 Alkaline Phosphatase 57 U/L (38-126) 04/29/21 17:01 Total Protein 6.0 g/dL (6.3-8.2) L 04/29/21 17:01 Albumin 3.4 g/dL (3.5-5.0) L 04/29/21 17:01 Thrombosis Risk Factor Assmnt - DVT/VTE Prophylaxis DVT/VTE Prophylaxis: Pharmacologic Prophylaxis ordered - Choose All That Apply Each Factor Represents 1 point: Obesity (BMI >25), Serious lung disease incl. pneumonia (< 1month) Each Risk Factor Represents 3 Points: Age 75 years or older Thrombosis Risk Factor Assessment Total Risk Factor Score: 5 Thrombosis Risk Factor Assessment Level: High Risk Assessment and Plan Plan: 1. Pneumonia, suspect aspiration, presenting with fever SIRS, patient has history of respiratory events, consult with speech, and pulmonary medicine. Patient is going to undergo modified by fredrick velarde, patient's antibiotic switched from IV Rocephin and Zithromax to Zosyn and vancomycin. Repeat blood cultures 2. Bacteremia, gram-positive cocci, cultures are currently pending IV Zosyn and vancomycin, repeat blood cultures today 96 3. Chronic atrial fibrillation, for which he is has discontinued anticoagulation, unknown cause the unknown history whether he had an intervention or not. 3. COPD, with exacerbation with albuterol, Atrovent and budesonide 4 diabetes mellitus 2 not on treatment at home check aic 5 hearing difficulties hearing loss 6 hypertension 7 current pneumonia 8 BPH without LUT S 9 gout on allopurinol 100 mg d 9. Fall risk, patient requires one crutch for community ambulation. Consult PT OT 10. DVT prophylaxis, Lovenox
[2021-04-30] MEDS: VANCOMYCIN 1,750 MG in SODIUM CHLORIDE 0.9% 500 ML 500 ML IVPB SCH (16:32)
[2021-04-30] MEDS: PIPERACILLIN-TAZOBACTAM 3.375 GM in SODIUM CHLORIDE 0.9% 100 ML IVPB SCH (16:35)
[2021-04-30 16:50] LABS: Glucose,Whole Blood 184 mg/dL (75-99)
[2021-04-30] MEDS: methylPREDNISolone SOD SUCCI 40 MG/ML 1 ML VIAL IV SCH (17:32)
[2021-04-30 18:07] LABS: Glucose,Whole Blood 199 mg/dL (75-99)
[2021-04-30] MEDS: BUDESONIDE 0.5 MG/2 ML NEBU INHALATION SCH (19:33)
[2021-04-30 20:44] LABS: Glucose,Whole Blood 247 mg/dL (75-99)
[2021-04-30] MEDS: allopurinoL 100 MG TAB PO SCH (21:27)
[2021-04-30] MEDS: SERTRALINE 50 MG TAB PO SCH (21:27)
[2021-04-30] MEDS: MELATONIN 3 MG TABLET PO SCH (21:27)
[2021-04-30] MEDS: INSULIN DETEMIR (LEVEMIR) 100 UNIT/ML SYR SQ SCH (21:27)
[2021-04-30] MEDS: ASCORBIC ACID 500 MG TAB PO SCH (21:27)
[2021-04-30] MEDS ORDERED: AZITHROMYCIN 500 MG TAB PO SCH (23:00)
[2021-05-01] MEDS: PIPERACILLIN-TAZOBACTAM 3.375 GM in SODIUM CHLORIDE 0.9% 100 ML IVPB SCH ×4 (00:42→23:31)
[2021-05-01] MEDS: methylPREDNISolone SOD SUCCI 40 MG/ML 1 ML VIAL IV SCH ×5 (00:42→23:31)
[2021-05-01 06:43] LABS: Glucose,Whole Blood 142 mg/dL (75-99)
[2021-05-01 06:54] LABS: African American GFR (CKD) 42 (>60 ml/min/1.73 sqM); Anion Gap 9 mmol/L; Blood Urea Nitrogen 53 mg/dL (9-20); Calcium 8.5 mg/dL (8.4-10.2); Carbon Dioxide 18 mmol/L (22-30); Chloride 115 mmol/L (98-107); Glucose 158 mg/dL (74-99); Non-African American GFR(CKD) 36 (>60 ml/min/1.73 sqM); Potassium 4.2 mmol/L (3.5-5.1); Sodium 142 mmol/L (137-145)
[2021-05-01] MEDS: FUROSEMIDE 20 MG TAB PO SCH (07:37)
[2021-05-01] MEDS: OXYBUTYNIN XL 5 MG TAB.ER.24 PO SCH (07:38)
[2021-05-01] MEDS: ACETAMINOPHEN TAB 325 MG TAB PO PRN (07:38)
[2021-05-01] MEDS: INSULIN ASPART (NovoLOG) 100 UNIT/ML VIAL SQ SCH ×4 (07:38→21:10)
[2021-05-01] MEDS: MULTIVITAMINS, THERA 1 EACH TAB PO SCH (07:39)
[2021-05-01] MEDS: FERROUS SULFATE 325 MG TAB PO SCH ×2 (07:39→21:11)
[2021-05-01] MEDS: IPRATROPIUM-ALBUTEROL 3 ML NEB INHALATION SCH ×4 (08:51→21:14)
[2021-05-01] MEDS: BUDESONIDE 0.5 MG/2 ML NEBU INHALATION SCH ×2 (08:51→21:14)
--- NOTE | 2021-05-01 10:19 | XR ---
EXAMINATION TYPE: XR chest 1V portable DATE OF EXAM: 05/01/2021 COMPARISON: 04/29/2021 INDICATION: Right lower lobe pneumonia TECHNIQUE: Single frontal view of the chest is obtained. FINDINGS: The heart size is normal. The pulmonary vasculature is normal. There is some increasing consolidation in the right lower lobe. Correlate for pneumonia. Continued fo llow-up is recommended IMPRESSION: 1. More focal consolidation right lung base. Correlate for pneumonia. Continued follow-up is recommen ded.
--- NOTE | 2021-05-01 11:04 | FL ---
EXAMINATION TYPE: FL barium swallow w video DATE OF EXAM: 05/01/2021 COMPARISON: NONE HISTORY: Aspiration, pneumonia TECHNIQUE: Fluoroscopy. FINDINGS: Fluoroscopic guidance was provided for the procedure performed in conjunction with the [facility] pathology department. Please see complete report forthcoming from the Speech Pathology departmen t. Various consistencies from thin liquid to solids were administered. Fluoroscopy time 4 minutes 25 seconds. Number of images: 0. There is aspiration with nectar thick liquids. Penetration was evident with nectar thick and thin liq uids. There is moderate pooling observed in the vallecula. There is delay of bolus formation. Incomplete epiglottis inversion is evident. IMPRESSION: 1. Aspiration with nectar thick liquids. No aspiration or penetration with pudding thick greater cons istencies. 2. Hesitancy of of bolus formation. 3. Pooling within the vallecula
[2021-05-01 11:28] LABS: Glucose,Whole Blood 197 mg/dL (75-99)
[2021-05-01] MEDS: VANCOMYCIN 1,750 MG in SODIUM CHLORIDE 0.9% 500 ML 500 ML IVPB SCH (11:55)
--- NOTE | 2021-05-01 12:12 | P.PN ---
Subjective Progress Note Date: 05/01/21 Principal diagnosis: Right lower lobe pneumonia most suspect aspiration This is an 86-year-old gentleman with a history of chronic atrial fibrillation, chronic kidney disease stage III, diabetes mellitus, Parkinson's disease, BPH, COPD from previous tobacco dependence. 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 No acute injuries. The patient was complaining of some cough and congestion was discharged on azithromycin and albuterol. The patient however returned later in the afternoon for similar respiratory symptoms and was admitted for possible early pneumonia in the right lung base. He is seen today in consultation on the regular medical floor. Awake, alert in no acute distress. Maintaining O2 satur ation in the 90s on 3 L/m per nasal cannula. He is afebrile. White count 7.2. Hemoglobin 10.4. Platelet count 65,000. Sodium 138. Potassium 4.0. Creatinine 1.74. Glucose 266. He's been initiated on DuoNeb inhalations, IV steroids and antibiotics in the form of cefepime. The patient was seen today 05/01/2021 in follow-up on the regular medical floor. He is currently resting comfortably in bed. Awake and alert in no acute distress. Somewhat of a poor historian. He did undergo a swallow evaluation and there was some aspiration of nectar thick fluid. He states he is breathing a bit easier today compared to yesterday. He has a loose cough. He is maintaining O2 saturations in the 90s on 3 L/m per nasal cannula. Chest x-ray reveals more consolidation of the right lung base. Afebrile. Hemodynamically stable. Blood and sputum cultures are pending. Sodium 142. Potassium 4.2. Creatinine 1.7. Glucose 158. He remains on DuoNeb inhalations, Pulmicort and Perforomist inhalations, IV Solu-Medrol. Antibiotics in the form of vancomycin and Zosyn. Objective - Vital Signs Vital signs: Vital Signs Temp 99.1 F 05/01/21 06:49 Pulse 73 05/01/21 09:06 Resp 18 05/01/21 09:06 BP 122/72 05/01/21 06:49 Pulse Ox 94 L 05/01/21 08:51 Intake & Output 04/30/21 05/01/21 05/01/21 18:59 06:59 18:59 Intake Total 400 Output Total 300 Balance 400 -300 Intake: Oral 400 Output: Urine 300 Other: Voiding Method Toilet Toilet Toilet Urinal Urinal Urinal Incontinent Incontinent Incontinent # Voids 3 4 # Bowel Movements 0 - Exam GENERAL EXAM: Alert, frail, hard of hearing 86-year-old gentleman, on 3 L nasal cannula, comfortable in no apparent distress. HEAD: Normocephalic. EYES: Normal reaction of pupils, equal size. NOSE: Clear with pink turbinates. THROAT: No erythema or exudates. NECK: No masses, no JVD. CHEST: No chest wall deformity. LUNGS: Equal air entry with few scattered crackles in the right lung base. CVS: S1 and S2 normal with no audible murmur, regular rhythm. ABDOMEN: No hepatosplenomegaly, normal bowel sounds, no guarding or rigidity. SPINE: No scoliosis or deformity SKIN: No rashes CENTRAL NERVOUS SYSTEM: No focal deficits, tone is normal in all 4 extremities. EXTREMITIES: There is no peripheral edema. No clubbing, no cyanosis. Peripheral pulses are intact. - Labs CBC & Chem 7: 04/29/21 17:01 05/01/21 06:23 Labs: Abnormal Lab Results - Last 24 Hours (Table) 04/30/21 04/30/21 04/30/21 Range/Units 16:48 18:02 20:41 Chloride (98-107) mmol/L Carbon Dioxide (22-30) mmol/L BUN (9-20) mg/dL Creatinine (0.66-1.25) mg/dL Glucose (74-99) mg/dL POC Glucose (mg/dL) 184 H 199 H 247 H (75-99) mg/dL 05/01/21 05/01/21 05/01/21 Range/Units 06:23 06:41 11:25 Chloride 115 H (98-107) mmol/L Carbon Dioxide 18 L (22-30) mmol/L BUN 53 H (9-20) mg/dL Creatinine 1.70 H (0.66-1.25) mg/dL Glucose 158 H (74-99) mg/dL POC Glucose (mg/dL) 142 H 197 H (75-99) mg/dL Microbiology - Last 24 Hours (Table) 04/30/21 19:37 Sputum Culture - Preliminary Sputum 04/29/21 17:00 Blood Culture - Preliminary Blood No Growth after 24 hours 04/29/21 16:45 Blood Culture - Preliminary Blood No Growth after 24 hours Assessment and Plan Assessment: 1 Acute hypoxic respiratory failure secondary to an acute right lower lung community acquired pneumonia, versus aspiration. There was noted aspiration with nectar thick liquids on swallow evaluation today 2 Acute on chronic renal failure 3 Chronic atrial fibrillation not on anticoagulants in the outpatient setting 4 Recent fall without acute injury, previous hospitalization in January 2020 post fall and large hematoma and acute blood loss 5 History of Parkinson's disease 6 Benign prostatic hyperplasia 7 History of depression 8 Diabetes mellitus Plan: The patient was seen and evaluated by Dr. Baig Chest x-ray and labs reviewed Swallow evaluation reviewed Currently on vancomycin and Zosyn Continue bronchodilators, Solu-Medrol Titrate the FiO2 as tolerated We will continue to follow and make further recommendations based on his clinical status I, the cosigning physician, performed a history & physical examination of the patient. Lungs sounds with crackles in the right lung base. Maintaining good O2 saturations in the 90s on 3 L/m per nasal cannula. I discussed the assessment and plan of care with my nurse practitioner, Jacquie Rodriguez. I attest to the above note as dictated by her.
[2021-05-01 14:54] LABS: Hemoglobin A1C 8.2 % (4.0-6.0)
[2021-05-01 16:38] LABS: Glucose,Whole Blood 232 mg/dL (75-99)
[2021-05-01 19:29] LABS: Glucose,Whole Blood 213 mg/dL (75-99)
[2021-05-01] MEDS: guaiFENesin-DM 100-10MG/5ML 10 ML CUP PO PRN (21:10)
[2021-05-01] MEDS: INSULIN DETEMIR (LEVEMIR) 100 UNIT/ML SYR SQ SCH (21:10)
[2021-05-01] MEDS: SERTRALINE 50 MG TAB PO SCH (21:11)
[2021-05-01] MEDS: MELATONIN 3 MG TABLET PO SCH (21:11)
[2021-05-01] MEDS: ASCORBIC ACID 500 MG TAB PO SCH (21:11)
[2021-05-01] MEDS: allopurinoL 100 MG TAB PO SCH (21:11)
[2021-05-02] MEDS: methylPREDNISolone SOD SUCCI 40 MG/ML 1 ML VIAL IV SCH ×4 (06:13→23:15)
[2021-05-02 06:46] LABS: Glucose,Whole Blood 91 mg/dL (75-99)
[2021-05-02] MEDS: INSULIN ASPART (NovoLOG) 100 UNIT/ML VIAL SQ SCH ×4 (07:20→21:09)
[2021-05-02] MEDS: FUROSEMIDE 20 MG TAB PO SCH (07:30)
[2021-05-02] MEDS: FERROUS SULFATE 325 MG TAB PO SCH ×2 (07:30→21:09)
[2021-05-02] MEDS: OXYBUTYNIN XL 5 MG TAB.ER.24 PO SCH (07:30)
[2021-05-02] MEDS: PIPERACILLIN-TAZOBACTAM 3.375 GM in SODIUM CHLORIDE 0.9% 100 ML IVPB SCH ×3 (07:30→23:15)
[2021-05-02] MEDS: MULTIVITAMINS, THERA 1 EACH TAB PO SCH (07:30)
[2021-05-02] MEDS: IPRATROPIUM-ALBUTEROL 3 ML NEB INHALATION SCH ×4 (09:08→19:26)
[2021-05-02] MEDS: BUDESONIDE 0.5 MG/2 ML NEBU INHALATION SCH ×2 (09:08→19:26)
[2021-05-02 11:33] LABS: Glucose,Whole Blood 274 mg/dL (75-99)
--- NOTE | 2021-05-02 11:34 | XR ---
EXAMINATION TYPE: XR chest 1V DATE OF EXAM: 05/02/2021 HISTORY: Shortness of breath. COMPARISON: 05/01/2021 TECHNIQUE: Single view of the chest is submitted. FINDINGS: Demonstrated are scattered senescent parenchymal change. Right lower lobe infiltrate persists although is improving. Mild patchy density left medial lung base is stable. The heart is stable. Hilar and mediastinal structures are within normal limits. Degenerative changes are seen of the dorsal spine. IMPRESSION: 1. Right lower lobe infiltrate persists although is improving. Mild patchy density left medial lung base is stable.
[2021-05-02] MEDS: VANCOMYCIN 1,750 MG in SODIUM CHLORIDE 0.9% 500 ML 500 ML IVPB SCH (11:51)
--- NOTE | 2021-05-02 14:32 | P.PN ---
Subjective Progress Note Date: 05/01/21 HISTORY OF PRESENT ILLNESS This is a pleasant 86-year-old gentleman, with known history of atrial fibrilla tion, COPD, cancer, diabetes mellitus, deafness, recurrent pneumonia, BPH, CK D, admitted to emergency room secondary to cough and shortness of breath. Patient cannot recollect how long he's been sick, however he mentions that whenever she eats, he coughs. Patient lives with the , and denies any sick contact. He has fever around 100, he was tested for Covid negative, and has been vaccinated. 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 Patient has no falls, however she ambulates with assist devices, when only his knees bad on no O2 requirements at home, unknown whether he uses a nebulizer not. In the emergency room, started on Rocephin and Zithromax, we'll going to obtain speech therapies along with consult to pulmonary medicine, Dr. Roth, O2 supplementation this time, and change his antibiotic to Zosyn and vancomycin. Pending blood culture identification of the gram-positive cocci. 05/01: Patient is scheduled for chest x-ray and modified barium swallow today. There continues to be concerned for aspiration. Patient continues to have cough. He has been afebrile, heart rate 52, blood pressure 122/72, pulse ox 97% on 5 L nasal cannula. Repeat blood work reveals sodium 142, potassium 4.2, chloride 115, CO2 18, BUN 53 and creatinine 1.7. Blood sugars are running in the 200s. Patient is continued on IV antibiotics in form of vancomycin and Zosyn. REVIEW OF SYSTEMS Constitutional: No fever, no chills, no night sweats. No weight change. Reported weakness, reported fatigue. No daytime sleepiness. EENT: No headache. No blurred vision or double vision, no loss of vision. No loss of Hearing, no ringing in the ears, no dizziness. No nasal drainage or congestion. No epistaxis. No sore throat. Lungs: Reported shortness of breath, noted cough, noted sputum production. No wheezing. Cardiovascular: No chest pain, no lower extremity edema. No palpitations. No paroxysmal nocturnal dyspnea. No orthopnea. No lightheadedness or dizziness. No syncopal episodes. Abdominal: No abdominal pain. No nausea, vomiting. No diarrhea. No constipation. No bloody or tarry stools.. No loss of appetite. Genitourinary: No dysuria, increased frequency, urgency. No urinary retention. Musculoskeletal: No myalgias. No muscle weakness, no gait dysfunction, no frequent falls. No back pain. No neck pain. Integumentary: No wounds, no lesions. No rash or pruritus. No unusual bruising. No change in hair or nails. Neurologic: No aphasia. No facial droop. Noted change in mentation. Poor short-term memory. No head injury. No headache. No paralysis. No paresthesia. Psychiatric: No depression. No anxiety. No mood swings. Endocrine: Noted abnormal blood sugars. No weight change. No excessive sweating or thirst. No cold intolerance. PHYSICAL EXAMINATION Gen: This is this is an 86-year-old male. He is resting in bed appears to be comfortable at rest. No respiratory distress is noted. HEENT: Head is atraumatic, normocephalic. Pupils equal, round. Sclerae is anicteric. NECK: Supple. No JVD. No lymphadenopathy. No thyromegaly. LUNGS: Scattered crackles. No wheezing. No intercostal retractions. Occasional cough. HEART: Regular rate and rhythm. No murmur. ABDOMEN: Soft. Bowel sounds are present. No masses. No tenderness. EXTREMITIES: No pedal edema. No calf tenderness. Dorsalis pedis is palpable bilaterally. NEUROLOGICAL: Patient is awake, alert and oriented x3. Cranial nerves 2 through 12 are grossly intact. ASSESSMENT AND PLAN 1. Pneumonia, suspect aspiration, presenting with fever SIRS, patient has history of respiratory events, consult with speech, and pulmonary medicine. Patient is going to undergo modified by swallow eval, patient's antibiotic switched from IV Rocephin and Zithromax to Zosyn and vancomycin. Repeat blood cultures 2. Bacteremia, gram-positive cocci, cultures are currently pending IV Zosyn and vancomycin, repeat blood cultures. 3. Chronic atrial fibrillation, for which he is has discontinued anticoagulation, unknown cause the unknown history whether he had an intervention or not. 3. COPD, with exacerbation with albuterol, Atrovent and budesonide 4 diabetes mellitus 2 not on treatment at home check aic 5 hearing difficulties hearing loss 6 hypertension 7 current pneumonia 8 BPH without LUT S 9 gout on allopurinol 100 mg d 9. Fall risk, patient requires one crutch for community ambulation. Consult PT OT 10. DVT prophylaxis, Lovenox DISCHARGE PLAN [facility]. Impression and plan of care have been directed as dictated by the signing physician. Cindy Tobias nurse practitioner acting as scribe for signing physician. Objective - Vital Signs Vital signs: Vital Signs Temp 99.1 F 05/01/21 06:49 Pulse 73 05/01/21 09:06 Resp 18 05/01/21 09:06 BP 122/72 05/01/21 06:49 Pulse Ox 94 L 05/01/21 08:51 Intake & Output 04/30/21 05/01/21 05/01/21 18:59 06:59 18:59 Intake Total 400 Output Total 300 Balance 400 -300 Intake: Oral 400 Output: Urine 300 Other: Voiding Method Toilet Toilet Toilet Urinal Urinal Urinal Incontinent Incontinent Incontinent # Voids 3 4 # Bowel Movements 0 - Labs CBC & Chem 7: 04/29/21 17:01 05/01/21 06:23 Labs: Abnormal Lab Results - Last 24 Hours (Table) 04/30/21 04/30/21 04/30/21 Range/Units 16:48 18:02 20:41 Chloride (98-107) mmol/L Carbon Dioxide (22-30) mmol/L BUN (9-20) mg/dL Creatinine (0.66-1.25) mg/dL Glucose (74-99) mg/dL POC Glucose (mg/dL) 184 H 199 H 247 H (75-99) mg/dL 05/01/21 05/01/21 05/01/21 Range/Units 06:23 06:41 11:25 Chloride 115 H (98-107) mmol/L Carbon Dioxide 18 L (22-30) mmol/L BUN 53 H (9-20) mg/dL Creatinine 1.70 H (0.66-1.25) mg/dL Glucose 158 H (74-99) mg/dL POC Glucose (mg/dL) 142 H 197 H (75-99) mg/dL Microbiology - Last 24 Hours (Table) 04/30/21 19:37 Sputum Culture - Preliminary Sputum 04/29/21 17:00 Blood Culture - Preliminary Blood No Growth after 24 hours 04/29/21 16:45 Blood Culture - Preliminary Blood No Growth after 24 hours
--- NOTE | 2021-05-02 14:37 | P.PN ---
Subjective Progress Note Date: 05/02/21 HISTORY OF PRESENT ILLNESS This is a pleasant 86-year-old gentleman, with known history of atrial fibrilla tion, COPD, cancer, diabetes mellitus, deafness, recurrent pneumonia, BPH, CK D, admitted to emergency room secondary to cough and shortness of breath. Patient cannot recollect how long he's been sick, however he mentions that whenever she eats, he coughs. Patient lives with the , and denies any sick contact. He has fever around 100, he was tested for Covid negative, and has been vaccinated. 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 Patient has no falls, however she ambulates with assist devices, when only his knees bad on no O2 requirements at home, unknown whether he uses a nebulizer not. In the emergency room, started on Rocephin and Zithromax, we'll going to obtain speech therapies along with consult to pulmonary medicine, Dr. Roth, O2 supplementation this time, and change his antibiotic to Zosyn and vancomycin. Pending blood culture identification of the gram-positive cocci. 05/01: Patient is scheduled for chest x-ray and modified barium swallow today. There continues to be concerned for aspiration. Patient continues to have cough. He has been afebrile, heart rate 52, blood pressure 122/72, pulse ox 97% on 5 L nasal cannula. Repeat blood work reveals sodium 142, potassium 4.2, chloride 115, CO2 18, BUN 53 and creatinine 1.7. Blood sugars are running in the 200s. Patient is continued on IV antibiotics in form of vancomycin and Zosyn. 05/02: Patient has been afebrile, heart rate 60, blood pressure 144/71, pulse ox 91% on 3 L nasal cannula. Capillary blood glucose running between 91 and 274. Levemir increased to 30 units at bedtime. Patient is continued on Solu-Medrol 40 mg IV every 6 hours. Patient continues to have confusion. He has cough with sputum production. Patient has been seen by PT and OT with recommendations for subacute rehab and social work is following for discharge to [facility]. Speech therapy has recommended chopped diet with aspiration precautions and honey thick liquids. He is continued on IV Zosyn and vancomycin. He has not had any diarrhea. Repeat chest x-ray from yesterday revealed more focal consolidation r ight lung base. Correlate for pneumonia. Modified barium swallow revealed revealed aspiration with nectar thick liquids, hesitancy of bolus formation. Pooling within the vallecula. REVIEW OF SYSTEMS Constitutional: No fever, no chills, no night sweats. No weight change. Reported weakness, reported fatigue. No daytime sleepiness. EENT: No headache. No blurred vision or double vision, no loss of vision. No loss of Hearing, no ringing in the ears, no dizziness. No nasal drainage or congestion. No epistaxis. No sore throat. Lungs: Reported shortness of breath, noted cough, noted sputum production. No wheezing. Cardiovascular: No chest pain, no lower extremity edema. No palpitations. No paroxysmal nocturnal dyspnea. No orthopnea. No lightheadedness or dizziness. No syncopal episodes. Abdominal: No abdominal pain. No nausea, vomiting. No diarrhea. No constipation. No bloody or tarry stools.. No loss of appetite. Genitourinary: No dysuria, increased frequency, urgency. No urinary retention. Musculoskeletal: No myalgias. No muscle weakness, no gait dysfunction, no fr equent falls. No back pain. No neck pain. Integumentary: No wounds, no lesions. No rash or pruritus. No unusual bruising. No change in hair or nails. Neurologic: No aphasia. No facial droop. Noted change in mentation. Poor short-term memory. No head injury. No headache. No paralysis. No paresthesia. Psychiatric: No depression. No anxiety. No mood swings. Endocrine: Noted abnormal blood sugars. No weight change. No excessive sweating or thirst. No cold intolerance. PHYSICAL EXAMINATION Gen: This is this is an 86-year-old male. He is resting in bed appears to be comfortable at rest. No respiratory distress is noted. HEENT: Head is atraumatic, normocephalic. Pupils equal, round. Sclerae is anicteric. NECK: Supple. No JVD. No lymphadenopathy. No thyromegaly. LUNGS: Scattered crackles. No wheezing. No intercostal retractions. Occasional cough. HEART: Regular rate and rhythm. No murmur. ABDOMEN: Soft. Bowel sounds are present. No masses. No tenderness. EXTREMITIES: No pedal edema. No calf tenderness. Dorsalis pedis is palpable bilaterally. NEUROLOGICAL: Patient is awake, alert and oriented x3. Cranial nerves 2 through 12 are grossly intact. ASSESSMENT AND PLAN 1. Pneumonia, aspiration pneumonia, presenting with fever SIRS, patient has history of respiratory events, consult with speech, and pulmonary medicine. Continue Zosyn and vancomycin. Continue aspiration precaution 2. Bacteremia, gram-positive cocci, cultures are currently pending IV Zosyn and vancomycin, repeat blood cultures. 3. Chronic atrial fibrillation, for which he is has discontinued anticoagulation, unknown cause the unknown history whether he had an intervention or not. 3. COPD, with exacerbation with albuterol, Atrovent and budesonide 4 diabetes mellitus 2 not on treatment at home check aic 5 hearing difficulties hearing loss 6 hypertension 7 current pneumonia 8 BPH without LUT S 9 gout on allopurinol 100 mg d 9. Fall risk, patient requires one crutch for community ambulation. Consult PT OT 10. DVT prophylaxis, Lovenox DISCHARGE PLAN [facility]. Impression and plan of care have been directed as dictated by the signing lc grimes. Cindy Tobias nurse practitioner acting as scribe for signing physician. Objective - Vital Signs Vital signs: Vital Signs Temp 98.6 F 05/02/21 06:48 Pulse 76 05/02/21 09:22 Resp 17 05/02/21 07:30 BP 116/67 05/02/21 06:48 Pulse Ox 98 05/02/21 06:48 Intake & Output 05/01/21 05/02/21 05/02/21 18:59 06:59 18:59 Intake Total 700 Balance 700 Intake: Intake, IV Titration 700 Amount Piperacillin-Tazobactam 3 200 .375 gm In Sodium Chloride 0.9% 100 ml @ 25 mls/hr IVPB Q8HR [facility] Rx# :[id number] Vancomycin 1,750 mg In 500 Sodium Chloride 0.9% 500 ml 500 ml @ 167 mls/hr IVPB Q24HR@1200 [facility] Rx#: [id number] Other: Voiding Method Toilet Toilet Toilet Urinal Urinal Urinal Incontinent Incontinent Incontinent # Voids 3 # Bowel Movements 0 - Labs CBC & Chem 7: 04/29/21 17:01 05/01/21 06:23 Labs: Abnormal Lab Results - Last 24 Hours (Table) 05/01/21 05/01/21 05/01/21 Range/Units 06:23 11:25 16:33 POC Glucose (mg/dL) 197 H 232 H (75-99) mg/dL Hemoglobin A1c 8.2 H (4.0-6.0) % 05/01/21 Range/Units 19:25 POC Glucose (mg/dL) 213 H (75-99) mg/dL Hemoglobin A1c (4.0-6.0) % Microbiology - Last 24 Hours (Table) 04/30/21 19:37 Gram Stain - Preliminary Sputum Sputum Culture - Preliminary 04/29/21 16:45 Blood Culture - Preliminary Blood No Growth after 48 hours 04/29/21 17:00 Blood Culture - Preliminary Blood No Growth after 48 hours 04/30/21 14:45 Blood Culture - Preliminary Blood No Growth after 24 hours
[2021-05-02 16:31] LABS: Glucose,Whole Blood 156 mg/dL (75-99)
--- NOTE | 2021-05-02 18:58 | P.PN ---
Subjective Progress Note Date: 05/02/21 Principal diagnosis: Right lower lobe pneumonia most suspect aspiration This is an 86-year-old gentleman with a history of chronic atrial fibrillation, chronic kidney disease stage III, diabetes mellitus, Parkinson's disease, BPH, COPD from previous tobacco dependence. 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 No acute injuries. The patient was complaining of some cough and congestion was discharged on azithromycin and albuterol. The patient however returned later in the afternoon for similar respiratory symptoms and was admitted for possible early pneumonia in the right lung base. He is seen today in consultation on the regular medical floor. Awake, alert in no acute distress. Maintaining O2 satur ation in the 90s on 3 L/m per nasal cannula. He is afebrile. White count 7.2. Hemoglobin 10.4. Platelet count 65,000. Sodium 138. Potassium 4.0. Creatinine 1.74. Glucose 266. He's been initiated on DuoNeb inhalations, IV steroids and antibiotics in the form of cefepime. The patient was seen today 05/01/2021 in follow-up on the regular medical floor. He is currently resting comfortably in bed. Awake and alert in no acute distress. Somewhat of a poor historian. He did undergo a swallow evaluation and there was some aspiration of nectar thick fluid. He states he is breathing a bit easier today compared to yesterday. He has a loose cough. He is maintaining O2 saturations in the 90s on 3 L/m per nasal cannula. Chest x-ray reveals more consolidation of the right lung base. Afebrile. Hemodynamically stable. Blood and sputum cultures are pending. Sodium 142. Potassium 4.2. Creatinine 1.7. Glucose 158. He remains on DuoNeb inhalations, Pulmicort and Perforomist inhalations, IV Solu-Medrol. Antibiotics in the form of vancomycin and Zosyn. The patient is seen today 05/02/2021 in follow-up on the regular medical floor. He is currently sitting up in a chair at the bedside. More awake and alert. He continues with a loose productive cough. Sputum culture is pending. Blood culture reveals no growth. If he is currently maintaining O2 saturations in the low 90s on 3 L/m per nasal cannula. Afebrile. Hemodynamically stable. He is considered on DuoNeb inhalations, Pulmicort and Perforomist inhalations, IV Solu-Medrol. Antibiotics in the form of ankle myosin, Zosyn. Chest x-ray continues to show right lower lobe infiltrate slightly improving. Objective - Vital Signs Vital signs: Vital Signs Temp 98.2 F 05/02/21 13:10 Pulse 64 05/02/21 16:16 Resp 17 05/02/21 13:10 BP 144/71 05/02/21 13:10 Pulse Ox 91 L 05/02/21 13:10 Intake & Output 05/01/21 05/02/21 05/02/21 18:59 06:59 18:59 Intake Total 700 Balance 700 Intake: Intake, IV Titration 700 Amount Piperacillin-Tazobactam 3 200 .375 gm In Sodium Chloride 0.9% 100 ml @ 25 mls/hr IVPB Q8HR [facility] Rx# :[id number] Vancomycin 1,750 mg In 500 Sodium Chloride 0.9% 500 ml 500 ml @ 167 mls/hr IVPB Q24HR@1200 [facility] Rx#: [id number] Other: Voiding Method Toilet Toilet Toilet Urinal Urinal Urinal Incontinent Incontinent Incontinent # Voids 3 # Bowel Movements 0 - Exam GENERAL EXAM: Alert, frail, hard of hearing 86-year-old gentleman, on 3 L nasal cannula, comfortable in no apparent distress. HEAD: Normocephalic. EYES: Normal reaction of pupils, equal size. NOSE: Clear with pink turbinates. THROAT: No erythema or exudates. NECK: No masses, no JVD. CHEST: No chest wall deformity. LUNGS: Equal air entry with few scattered crackles in the right lung base. CVS: S1 and S2 normal with no audible murmur, regular rhythm. ABDOMEN: No hepatosplenomegaly, normal bowel sounds, no guarding or rigidity. SPINE: No scoliosis or deformity SKIN: No rashes CENTRAL NERVOUS SYSTEM: No focal deficits, tone is normal in all 4 extremities. EXTREMITIES: There is no peripheral edema. No clubbing, no cyanosis. Peripheral pulses are intact. - Labs CBC & Chem 7: 04/29/21 17:01 05/01/21 06:23 Labs: Abnormal Lab Results - Last 24 Hours (Table) 05/01/21 05/02/21 05/02/21 Range/Units 19:25 11:31 16:29 POC Glucose (mg/dL) 213 H 274 H 156 H (75-99) mg/dL Microbiology - Last 24 Hours (Table) 04/30/21 14:45 Blood Culture - Preliminary Blood No Growth after 48 hours 04/30/21 19:37 Gram Stain - Preliminary Sputum Sputum Culture - Preliminary 04/29/21 16:45 Blood Culture - Preliminary Blood No Growth after 48 hours 04/29/21 17:00 Blood Culture - Preliminary Blood No Growth after 48 hours Assessment and Plan Assessment: 1 Acute hypoxic respiratory failure secondary to an acute right lower lung community acquired pneumonia, versus aspiration. There was noted aspiration with nectar thick liquids on swallow evaluation today 2 Acute on chronic renal failure 3 Chronic atrial fibrillation not on anticoagulants in the outpatient setting 4 Recent fall without acute injury, previous hospitalization in January 2020 post fall and large hematoma and acute blood loss 5 History of Parkinson's disease 6 Benign prostatic hyperplasia 7 History of depression 8 Diabetes mellitus Plan: The patient was seen and evaluated by Dr. Baig Chest x-ray and labs reviewed Currently on vancomycin and Zosyn Continue bronchodilators, Solu-Medrol Titrate the FiO2 as tolerated We will continue to follow I, the cosigning physician, performed a history & physical examination of the patient. Lungs sounds with crackles in the right lung base. Maintaining good O2 saturations in the 90s on 3 L/m per nasal cannula. I discussed the assessment and plan of care with my nurse practitioner, Jacquie Rodriguez. I attest to the above note as dictated by her.
[2021-05-02 20:39] LABS: Glucose,Whole Blood 220 mg/dL (75-99)
[2021-05-02] MEDS: MELATONIN 3 MG TABLET PO SCH (21:09)
[2021-05-02] MEDS: allopurinoL 100 MG TAB PO SCH (21:09)
[2021-05-02] MEDS: INSULIN DETEMIR (LEVEMIR) 100 UNIT/ML SYR SQ SCH (21:09)
[2021-05-02] MEDS: SERTRALINE 50 MG TAB PO SCH (21:10)
[2021-05-02] MEDS: ASCORBIC ACID 500 MG TAB PO SCH (21:10)
[2021-05-02] MEDS: guaiFENesin-DM 100-10MG/5ML 10 ML CUP PO PRN (23:15)
[2021-05-03] MEDS: methylPREDNISolone SOD SUCCI 40 MG/ML 1 ML VIAL IV SCH ×2 (05:30→21:32)
[2021-05-03 06:41] LABS: Glucose,Whole Blood 147 mg/dL (75-99)
[2021-05-03] MEDS: FERROUS SULFATE 325 MG TAB PO SCH ×2 (08:08→21:31)
[2021-05-03] MEDS: FUROSEMIDE 20 MG TAB PO SCH (08:08)
[2021-05-03] MEDS: PIPERACILLIN-TAZOBACTAM 3.375 GM in SODIUM CHLORIDE 0.9% 100 ML IVPB SCH ×2 (08:08→16:30)
[2021-05-03] MEDS: OXYBUTYNIN XL 5 MG TAB.ER.24 PO SCH (08:08)
[2021-05-03] MEDS: INSULIN ASPART (NovoLOG) 100 UNIT/ML VIAL SQ SCH ×4 (08:08→21:32)
[2021-05-03] MEDS: MULTIVITAMINS, THERA 1 EACH TAB PO SCH (08:08)
[2021-05-03] MEDS: IPRATROPIUM-ALBUTEROL 3 ML NEB INHALATION SCH ×4 (08:55→21:16)
[2021-05-03] MEDS: BUDESONIDE 0.5 MG/2 ML NEBU INHALATION SCH (08:55)
[2021-05-03] MEDS ORDERED: FUROSEMIDE 10 MG/ML 4 ML VIAL IV STA (10:04)
[2021-05-03] MEDS ORDERED: VANCOMYCIN TROUGH DUE 1 EACH MISC MISCELLANE ONE (11:00)
[2021-05-03 11:25] LABS: Glucose,Whole Blood 125 mg/dL (75-99)
[2021-05-03] MEDS: VANCOMYCIN 1,750 MG in SODIUM CHLORIDE 0.9% 500 ML 500 ML IVPB SCH (11:46)
--- NOTE | 2021-05-03 12:19 | P.PN ---
Subjective Progress Note Date: 05/03/21 HISTORY OF PRESENT ILLNESS This is a pleasant 86-year-old gentleman, with known history of atrial fibrilla tion, COPD, cancer, diabetes mellitus, deafness, recurrent pneumonia, BPH, CK D, admitted to emergency room secondary to cough and shortness of breath. Patient cannot recollect how long he's been sick, however he mentions that whenever she eats, he coughs. Patient lives with the , and denies any sick contact. He has fever around 100, he was tested for Covid negative, and has been vaccinated. 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 Patient has no falls, however she ambulates with assist devices, when only his knees bad on no O2 requirements at home, unknown whether he uses a nebulizer not. In the emergency room, started on Rocephin and Zithromax, we'll going to obtain speech therapies along with consult to pulmonary medicine, Dr. Roth, O2 supplementation this time, and change his antibiotic to Zosyn and vancomycin. Pending blood culture identification of the gram-positive cocci. 05/01: Patient is scheduled for chest x-ray and modified barium swallow today. There continues to be concerned for aspiration. Patient continues to have cough. He has been afebrile, heart rate 52, blood pressure 122/72, pulse ox 97% on 5 L nasal cannula. Repeat blood work reveals sodium 142, potassium 4.2, chloride 115, CO2 18, BUN 53 and creatinine 1.7. Blood sugars are running in the 200s. Patient is continued on IV antibiotics in form of vancomycin and Zosyn. 05/02: Patient has been afebrile, heart rate 60, blood pressure 144/71, pulse ox 91% on 3 L nasal cannula. Capillary blood glucose running between 91 and 274. Levemir increased to 30 units at bedtime. Patient is continued on Solu-Medrol 40 mg IV every 6 hours. Patient continues to have confusion. He has cough with sputum production. Patient has been seen by PT and OT with recommendations for subacute rehab and social work is following for discharge to [facility]. Speech therapy has recommended chopped diet with aspiration precautions and honey thick liquids. He is continued on IV Zosyn and vancomycin. He has not had any diarrhea. Repeat chest x-ray from yesterday revealed more focal consolidation r ight lung base. Correlate for pneumonia. Modified barium swallow revealed revealed aspiration with nectar thick liquids, hesitancy of bolus formation. Pooling within the vallecula. 05/03: Patient continues to have wheezing but overall reading is improving. Solu- Medrol will be decreased to 40 mg every 12 hours. Pulmicort increased to 1 mg twice daily. Patient is ordered for 1 dose of IV Lasix. Patient has been afebrile, heart rate in the 60s and 70s, blood pressure 139/83, pulse ox 97% on 3 L nasal cannula. Creatinine 1.76. Blood sugars running between 125-220. Repeat blood work ordered for tomorrow. All blood cultures are showing no growth at 48-72 hours. Anticipate possible discharge tomorrow REVIEW OF SYSTEMS Constitutional: No fever, no chills, no night sweats. No weight change. Reported weakness, reported fatigue. No daytime sleepiness. EENT: No headache. No blurred vision or double vision, no loss of vision. No loss of Hearing, no ringing in the ears, no dizziness. No nasal drainage or congestion. No epistaxis. No sore throat. Lungs: Reported shortness of breath, noted cough, noted sputum production. No wheezing. Cardiovascular: No chest pain, no lower extremity edema. No palpitations. No paroxysmal nocturnal dyspnea. No orthopnea. No lightheadedness or dizziness. No syncopal episodes. Abdominal: No abdominal pain. No nausea, vomiting. No diarrhea. No constipation. No bloody or tarry stools.. No loss of appetite. Genitourinary: No dysuria, increased frequency, urgency. No urinary retention. Musculoskeletal: No myalgias. No muscle weakness, no gait dysfunction, no frequent falls. No back pain. No neck pain. Integumentary: No wounds, no lesions. No rash or pruritus. No unusual bruising. No change in hair or nails. Neurologic: No aphasia. No facial droop. Noted change in mentation. Poor short-term memory. No head injury. No headache. No paralysis. No paresthesia. Psychiatric: No depression. No anxiety. No mood swings. Endocrine: Noted abnormal blood sugars. No weight change. No excessive sweating or thirst. No cold intolerance. PHYSICAL EXAMINATION Gen: This is this is an 86-year-old male. He is resting in bed appears to be comfortable at rest. No respiratory distress is noted. HEENT: Head is atraumatic, normocephalic. Pupils equal, round. Sclerae is anicteric. NECK: Supple. No JVD. No lymphadenopathy. No thyromegaly. LUNGS: Scattered crackles. Bilateral expiratory wheezing. Mild accessory muscle usage. Occasional cough. HEART: Regular rate and rhythm. No murmur. ABDOMEN: Soft. Bowel sounds are present. No masses. No tenderness. EXTREMITIES: No pedal edema. No calf tenderness. Dorsalis pedis is palpable bilaterally. NEUROLOGICAL: Patient is awake, alert and oriented x3. Cranial nerves 2 through 12 are grossly intact. ASSESSMENT AND PLAN 1. Pneumonia, aspiration pneumonia, presenting with fever SIRS, patient has history of respiratory events, consult with speech, and pulmonary medicine. Continue Zosyn and vancomycin. Continue aspiration precaution, continue Pulmicort increased 1 mg twice daily, Solu-Medrol decreased to 40 mg every 12 hours, one dose of IV Lasix and discontinue IV fluids. 2. Bacteremia ruled out by negative blood cultures. Continue IV Zosyn and va ncomycin, repeat blood cultures. 3. Chronic atrial fibrillation, for which his doctor has discontinued anticoagulation, unknown cause the unknown history whether he had an intervention or not. 4. COPD, with exacerbation with albuterol, Atrovent and budesonide 5. Diabetes mellitus 2 not on treatment at home check aic 6. Hearing difficulties hearing loss 7. Hypertension 8. BPH without LUTS 9. Chronic gout on allopurinol 100 mg d 10. Fall risk, patient requires one crutch for community ambulation. Consult PT OT 11. DVT prophylaxis, Lovenox DISCHARGE PLAN [facility] on Friday. Impression and plan of care have been directed as dictated by the signing physician. Cindy Tobias nurse practitioner acting as scribe for signing physician. Objective - Vital Signs Vital signs: Vital Signs Temp 98.2 F 05/03/21 06:44 Pulse 73 05/03/21 08:55 Resp 18 05/03/21 06:44 BP 139/83 05/03/21 06:44 Pulse Ox 97 05/03/21 06:44 Intake & Output 05/02/21 05/03/21 05/03/21 18:59 06:59 18:59 Output Total 200 Balance -200 Output: Urine 200 Other: Voiding Method Toilet Urinal Urinal Urinal Incontinent Incontinent Incontinent - Labs CBC & Chem 7: 04/29/21 17:01 05/03/21 11:06 Labs: Abnormal Lab Results - Last 24 Hours (Table) 05/02/21 05/02/21 05/02/21 Range/Units 11:31 16:29 20:35 POC Glucose (mg/dL) 274 H 156 H 220 H (75-99) mg/dL 05/03/21 Range/Units 06:39 POC Glucose (mg/dL) 147 H (75-99) mg/dL Microbiology - Last 24 Hours (Table) 04/29/21 17:00 Blood Culture - Preliminary Blood No Growth after 72 hours 04/29/21 16:45 Blood Culture - Preliminary Blood No Growth after 72 hours 04/30/21 14:45 Blood Culture - Preliminary Blood No Growth after 48 hours 04/30/21 19:37 Gram Stain - Preliminary Sputum Sputum Culture - Preliminary
--- NOTE | 2021-05-03 13:18 | P.PN ---
Subjective Progress Note Date: 05/03/21 On today's evaluation on 05/03/2021 patient seen in follow-up on medical surgical floor, he is currently sitting up on the commode, he is cleaning up with the help of a nurse's aide. He still has a loose congested cough, however she sounds less congested on today's exam, no altered mentation, he is on 3 L of oxygen, pulse ox is 97%, his been afebrile overnight, no complaints of chest discomfort, no hemoptysis, yesterday's chest x-ray was showing improvement in appearance of the right lower lobe pneumonia. Patient is on the termination of Zosyn and vancomycin, for his blood cultures and sputum cultures have remained negative. Objective - Vital Signs Vital signs: Vital Signs Temp 98.2 F 05/03/21 06:44 Pulse 73 05/03/21 08:55 Resp 18 05/03/21 06:44 BP 139/83 05/03/21 06:44 Pulse Ox 97 05/03/21 06:44 Intake & Output 05/02/21 05/03/21 05/03/21 18:59 06:59 18:59 Output Total 200 Balance -200 Output: Urine 200 Other: Voiding Method Toilet Urinal Urinal Urinal Incontinent Incontinent Incontinent - Exam GENERAL EXAM: Alert, pleasant, 86-year-old white male, on 3 L of oxygen, sitting up on the commode, cleaning up the loose congested cough, comfortable in no apparent distress. HEAD: Normocephalic/atraumatic. EYES: Normal reaction of pupils, equal size. Conjunctiva pink, sclera white. NOSE: Clear with pink turbinates. THROAT: No erythema or exudates. NECK: No masses, no JVD, no thyroid enlargement, no adenopathy. CHEST: No chest wall deformity. Symmetrical expansion. LUNGS: Equal air entry with some scattered rhonchi, CVS: Regular rate and rhythm, normal S1 and S2, no gallops, no murmurs, no rubs ABDOMEN: Soft, nontender. No hepatosplenomegaly, normal bowel sounds, no guarding or rigidity. EXTREMITIES: No clubbing, no edema, no cyanosis, 2+ pulses and upper and lower extremities. MUSCULOSKELETAL: Muscle strength and tone normal. SPINE: No scoliosis or deformity SKIN: No rashes CENTRAL NERVOUS SYSTEM: Alert and oriented -3. No focal deficits, tone is normal in all 4 extremities. PSYCHIATRIC: Alert and oriented -3. Appropriate affect. Intact judgment and insight. - Labs CBC & Chem 7: 04/29/21 17:01 05/03/21 11:06 Labs: Abnormal Lab Results - Last 24 Hours (Table) 05/02/21 05/02/21 05/03/21 Range/Units 16:29 20:35 06:39 Creatinine (0.66-1.25) mg/dL POC Glucose (mg/dL) 156 H 220 H 147 H (75-99) mg/dL 05/03/21 05/03/21 Range/Units 11:06 11:22 Creatinine 1.76 H (0.66-1.25) mg/dL POC Glucose (mg/dL) 125 H (75-99) mg/dL Microbiology - Last 24 Hours (Table) 04/30/21 19:37 Gram Stain - Final Sputum Sputum Culture - Final 04/29/21 17:00 Blood Culture - Preliminary Blood No Growth after 72 hours 04/29/21 16:45 Blood Culture - Preliminary Blood No Growth after 72 hours 04/30/21 14:45 Blood Culture - Preliminary Blood No Growth after 48 hours Assessment and Plan Plan: Assessment: #1. Acute hypoxic respiratory failure secondary to an acute right lower lung community acquired pneumonia, versus aspiration. There was noted aspiration with nectar thick liquids on swallow evaluation today #2. Acute on chronic renal failure #3. Chronic atrial fibrillation not on anticoagulants in the outpatient setting #4. Recent fall without acute injury, previous hospitalization in January 2020 post fall and large hematoma and acute blood loss #5. History of Parkinson's disease #6. Benign prostatic hyperplasia #7. History of depression #8. Diabetes mellitus Plan: Continue antibiotics Continue bronchodilators Continue aspiration precautions Follow up CXR in am I performed a history & physical examination of the patient and discussed their management with my nurse practitioner, Elaine Salas. I reviewed the nurse practitioner's note and agree with the documented findings and plan of care. Lung sounds are positive for diffuse wheezes throughout the lung wylie. The findings and the impression was discussed with the patient. I attest to the documentation by the nurse practitioner. Time with Patient: Less than 30
[2021-05-03 16:37] LABS: Glucose,Whole Blood 152 mg/dL (75-99)
[2021-05-03 20:01] LABS: Glucose,Whole Blood 272 mg/dL (75-99)
[2021-05-03 20:13] LABS: Glucose,Whole Blood 181 mg/dL (75-99)
[2021-05-03] MEDS: BUDESONIDE 1 MG/2 ML NEBU INHALATION SCH (21:16)
[2021-05-03] MEDS: INSULIN DETEMIR (LEVEMIR) 100 UNIT/ML SYR SQ SCH (21:31)
[2021-05-03] MEDS: allopurinoL 100 MG TAB PO SCH (21:31)
[2021-05-03] MEDS: ASCORBIC ACID 500 MG TAB PO SCH (21:31)
[2021-05-03] MEDS: MELATONIN 3 MG TABLET PO SCH (21:31)
[2021-05-03] MEDS: SERTRALINE 50 MG TAB PO SCH (21:32)
[2021-05-04] MEDS: PIPERACILLIN-TAZOBACTAM 3.375 GM in SODIUM CHLORIDE 0.9% 100 ML IVPB SCH ×3 (00:35→17:45)
[2021-05-04 06:55] LABS: Glucose,Whole Blood 113 mg/dL (75-99)
--- NOTE | 2021-05-04 07:23 | XR ---
EXAMINATION TYPE: XR chest 1V portable DATE OF EXAM: 05/04/2021 HISTORY: Shortness of breath. COMPARISON: 05/02/2021 TECHNIQUE: Single view of the chest is submitted. FINDINGS: Demonstrated are scattered senescent parenchymal change. Right lower lobe infiltrate persists although is slightly improved. Continued follow-up advised. The heart is stable. Hilar and mediastinal structures are within normal limits. Degenerative changes are seen of the dorsal spine. IMPRESSION: 1. Right lower lobe infiltrate persists although is slightly improved. Continued follow-up advised.
[2021-05-04] MEDS: INSULIN ASPART (NovoLOG) 100 UNIT/ML VIAL SQ SCH ×4 (08:23→21:30)
[2021-05-04] MEDS: FUROSEMIDE 20 MG TAB PO SCH (08:27)
[2021-05-04] MEDS: MULTIVITAMINS, THERA 1 EACH TAB PO SCH (08:27)
[2021-05-04] MEDS: methylPREDNISolone SOD SUCCI 40 MG/ML 1 ML VIAL IV SCH ×2 (08:27→21:08)
[2021-05-04] MEDS: FERROUS SULFATE 325 MG TAB PO SCH ×2 (08:27→21:08)
[2021-05-04] MEDS: OXYBUTYNIN XL 5 MG TAB.ER.24 PO SCH (08:27)
[2021-05-04] MEDS: BUDESONIDE 1 MG/2 ML NEBU INHALATION SCH ×2 (09:12→20:12)
[2021-05-04] MEDS: IPRATROPIUM-ALBUTEROL 3 ML NEB INHALATION SCH ×4 (09:12→20:12)
[2021-05-04 10:55] LABS: Glucose,Whole Blood 186 mg/dL (75-99)
--- NOTE | 2021-05-04 11:05 | P.PN ---
Subjective Progress Note Date: 05/04/21 HISTORY OF PRESENT ILLNESS This is a pleasant 86-year-old gentleman, with known history of atrial fibrilla tion, COPD, cancer, diabetes mellitus, deafness, recurrent pneumonia, BPH, CK D, admitted to emergency room secondary to cough and shortness of breath. Patient cannot recollect how long he's been sick, however he mentions that whenever she eats, he coughs. Patient lives with the , and denies any sick contact. He has fever around 100, he was tested for Covid negative, and has been vaccinated. 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 Patient has no falls, however she ambulates with assist devices, when only his knees bad on no O2 requirements at home, unknown whether he uses a nebulizer not. In the emergency room, started on Rocephin and Zithromax, we'll going to obtain speech therapies along with consult to pulmonary medicine, Dr. Roth, O2 supplementation this time, and change his antibiotic to Zosyn and vancomycin. Pending blood culture identification of the gram-positive cocci. 05/01: Patient is scheduled for chest x-ray and modified barium swallow today. There continues to be concerned for aspiration. Patient continues to have cough. He has been afebrile, heart rate 52, blood pressure 122/72, pulse ox 97% on 5 L nasal cannula. Repeat blood work reveals sodium 142, potassium 4.2, chloride 115, CO2 18, BUN 53 and creatinine 1.7. Blood sugars are running in the 200s. Patient is continued on IV antibiotics in form of vancomycin and Zosyn. 05/02: Patient has been afebrile, heart rate 60, blood pressure 144/71, pulse ox 91% on 3 L nasal cannula. Capillary blood glucose running between 91 and 274. Levemir increased to 30 units at bedtime. Patient is continued on Solu-Medrol 40 mg IV every 6 hours. Patient continues to have confusion. He has cough with sputum production. Patient has been seen by PT and OT with recommendations for subacute rehab and social work is following for discharge to [facility]. Speech therapy has recommended chopped diet with aspiration precautions and honey thick liquids. He is continued on IV Zosyn and vancomycin. He has not had any diarrhea. Repeat chest x-ray from yesterday revealed more focal consolidation r ight lung base. Correlate for pneumonia. Modified barium swallow revealed revealed aspiration with nectar thick liquids, hesitancy of bolus formation. Pooling within the vallecula. 05/03: Patient continues to have wheezing but overall reading is improving. Solu- Medrol will be decreased to 40 mg every 12 hours. Pulmicort increased to 1 mg twice daily. Patient is ordered for 1 dose of IV Lasix. Patient has been afebrile, heart rate in the 60s and 70s, blood pressure 139/83, pulse ox 97% on 3 L nasal cannula. Creatinine 1.76. Blood sugars running between 125-220. Repeat blood work ordered for tomorrow. All blood cultures are showing no growth at 48-72 hours. Anticipate possible discharge tomorrow 05/04: The patient denies any new complaints. He does have continued wheezing for which no changes were Solu-Medrol and continue on inhaled steroids. Patient has been afebrile, heart rate 74, blood pressure 138/70, pulse ox 100% on 3 L nasal cannula. Capillary blood glucose running between 113 and 186. Repeat a.m. blood work report is still pending at 11 AM. IV fluids will be changed to saline lock, Diflucan added for thrush. Vancomycin discontinued. Anticipate possible discharge on Friday to [facility] and social work has been updated. Patient has been accepted at [facility] and insurance authorization has been obtained. REVIEW OF SYSTEMS Constitutional: No fever, no chills, no night sweats. No weight change. Reported weakness, reported fatigue. No daytime sleepiness. EENT: No headache. No blurred vision or double vision, no loss of vision. No loss of Hearing, no ringing in the ears, no dizziness. No nasal drainage or congestion. No epistaxis. No sore throat. Lungs: Reported shortness of breath, noted cough, noted sputum production. Noted wheezing. Cardiovascular: No chest pain, no lower extremity edema. No palpitations. No paroxysmal nocturnal dyspnea. No orthopnea. No lightheadedness or dizziness. No syncopal episodes. Abdominal: No abdominal pain. No nausea, vomiting. No diarrhea. No constipation. No bloody or tarry stools.. No loss of appetite. Genitourinary: No dysuria, increased frequency, urgency. No urinary retention. Musculoskeletal: No myalgias. No muscle weakness, no gait dysfunction, no frequent falls. No back pain. No neck pain. Integumentary: No wounds, no lesions. No rash or pruritus. No unusual bruising. No change in hair or nails. Neurologic: No aphasia. No facial droop. Noted change in mentation. Poor short-term memory. No head injury. No headache. No paralysis. No paresthesia. Psychiatric: No depression. No anxiety. No mood swings. Endocrine: Noted abnormal blood sugars. No weight change. No excessive sweating or thirst. No cold intolerance. PHYSICAL EXAMINATION Gen: This is this is an 86-year-old male. He is resting in bed appears to be comfortable at rest. HEENT: Head is atraumatic, normocephalic. Pupils equal, round. Sclerae is anicteric. NECK: Supple. No JVD. No lymphadenopathy. No thyromegaly. LUNGS: Scattered crackles. Bilateral expiratory wheezing. Mild accessory mu scle usage. Occasional cough. HEART: Regular rate and rhythm. No murmur. ABDOMEN: Soft. Bowel sounds are present. No masses. No tenderness. EXTREMITIES: No pedal edema. No calf tenderness. Dorsalis pedis is palpable bilaterally. NEUROLOGICAL: Patient is awake, alert and oriented x3. Cranial nerves 2 through 12 are grossly intact. ASSESSMENT AND PLAN 1. Pneumonia, aspiration pneumonia, presenting with fever SIRS, patient has history of respiratory events, consult with speech, and pulmonary medicine. Continue Zosyn and discontinue vancomycin. Continue aspiration precaution, continue Pulmicort increased 1 mg twice daily, Solu-Medrol 40 mg every 12 hours, one dose of IV Lasix and discontinue IV fluids. 2. Bacteremia ruled out by negative blood cultures. Continue IV Zosyn and vanco mycin, repeat blood cultures are negative. 3. Chronic atrial fibrillation, for which his doctor has discontinued anticoagulation, unknown cause the unknown history whether he had an intervention or not. 4. COPD, with exacerbation with albuterol, Atrovent and budesonide 5. Diabetes mellitus 2 not on treatment at home check aic 6. Hearing difficulties hearing loss 7. Hypertension 8. BPH without LUTS 9. Chronic gout on allopurinol 100 mg d 10. Fall risk, patient requires one crutch for community ambulation. Consult PT OT 11. DVT prophylaxis, Lovenox DISCHARGE PLAN [facility] on Friday. Impression and plan of care have been directed as dictated by the signing physician. Cindy Tobias nurse practitioner acting as scribe for signing physician. Objective - Vital Signs Vital signs: Vital Signs Temp 98.2 F 05/04/21 08:00 Pulse 74 05/04/21 09:22 Resp 18 05/04/21 08:00 BP 138/78 05/04/21 08:00 Pulse Ox 100 05/04/21 08:00 Intake & Output 05/03/21 05/04/21 05/04/21 18:59 06:59 18:59 Other: Voiding Method Urinal Urinal Incontinent Incontinent External Catheter # Voids 4 # Bowel Movements 1 - Labs CBC & Chem 7: 04/29/21 17:01 05/03/21 11:06 Labs: Abnormal Lab Results - Last 24 Hours (Table) 05/03/21 05/03/21 05/03/21 Range/Units 11:06 11:22 16:35 Creatinine 1.76 H (0.66-1.25) mg/dL POC Glucose (mg/dL) 125 H 152 H (75-99) mg/dL 05/03/21 05/03/21 05/04/21 Range/Units 19:59 20:12 06:53 Creatinine (0.66-1.25) mg/dL POC Glucose (mg/dL) 272 H 181 H 113 H (75-99) mg/dL Microbiology - Last 24 Hours (Table) 04/29/21 17:00 Blood Culture - Preliminary Blood No Growth after 96 hours 04/29/21 16:45 Blood Culture - Preliminary Blood No Growth after 96 hours 04/30/21 14:45 Blood Culture - Preliminary Blood No Growth after 72 hours 04/30/21 19:37 Gram Stain - Final Sputum Sputum Culture - Final
[2021-05-04] MEDS: FLUCONAZOLE 100 MG TAB PO SCH (11:29)
[2021-05-04 12:33] LABS: HCT 30.1 % (39.6-50.0); MCH 30.2 pg (27.0-32.0); MCHC 29.9 g/dL (32.0-37.0); Platelet Count 81 X 10*3/uL (140-440); RBC 2.98 X 10*6/uL (4.40-5.60); RDW 15.1 % (11.5-14.5); WBC 7.11 X 10*3/uL (4.50-10.00)
[2021-05-04 14:51] LABS: ALT 24 U/L (4-49); AST 20 U/L (17-59); African American GFR (CKD) 35 (>60 ml/min/1.73 sqM); Albumin 2.9 g/dL (3.5-5.0); Albumin/Globulin Ratio 1.2; Alkaline Phosphatase 40 U/L (38-126); Anion Gap 5 mmol/L; Blood Urea Nitrogen 62 mg/dL (9-20); Calcium 8.3 mg/dL (8.4-10.2); Carbon Dioxide 26 mmol/L (22-30); Chloride 115 mmol/L (98-107); Globulin 2.4 g/dL; Glucose 114 mg/dL (74-99); Non-African American GFR(CKD) 30 (>60 ml/min/1.73 sqM); Potassium 4.3 mmol/L (3.5-5.1); Sodium 146 mmol/L (137-145); Total Bilirubin 0.5 mg/dL (0.2-1.3); Total Protein 5.3 g/dL (6.3-8.2)
[2021-05-04 15:10] VITALS: BMI 28.5
--- NOTE | 2021-05-04 16:03 | P.PN ---
Subjective Progress Note Date: 05/04/21 On today's evaluation on 05/03/2021 patient seen in follow-up on medical surgical floor, he is currently sitting up on the commode, he is cleaning up with the help of a nurse's aide. He still has a loose congested cough, however she sounds less congested on today's exam, no altered mentation, he is on 3 L of oxygen, pulse ox is 97%, his been afebrile overnight, no complaints of chest discomfort, no hemoptysis, yesterday's chest x-ray was showing improvement in appearance of the right lower lobe pneumonia. Patient is on the termination of Zosyn and vancomycin, for his blood cultures and sputum cultures have remained negative. On today's evaluation on 05/04/2001 patient seen in follow-up on medical surgical floor. He is awake and alert, in no acute distress, still has a congested cough, but no complete chest discomfort, no hemoptysis, he has however bringing up large amount of purulent sputum. he is currently on a combination of Zosyn and vancomycin. His initial sputum culture from a few days ago was negative. He is currently on 3 L of oxygen pulse ox is 95%, his had no fever or chills, he is tolerating oral diet, he is on dysphagia 2 diet with honey consistency thickened liquids. On today's labs White blood cell count 7.11, hemoglobin is 9, serum sodium is 146, potassium is 4.3, chloride is 115, BUN is 62, and creatinine is 1.96. No Altered mentation, vital signs have been stable Objective - Vital Signs Vital signs: Vital Signs Temp 98 F 05/04/21 14:00 Pulse 74 05/04/21 14:00 Resp 18 05/04/21 14:00 BP 110/71 05/04/21 14:00 Pulse Ox 95 05/04/21 14:00 Intake & Output 05/03/21 05/04/21 05/04/21 18:59 06:59 18:59 Weight 95.254 kg Other: Voiding Method Urinal Urinal Urinal Incontinent Incontinent Incontinent External Catheter External Catheter # Voids 4 # Bowel Movements 1 - Exam GENERAL EXAM: Alert, pleasant, 86-year-old white male, on 3 L of oxygen, sitting up on the commode, cleaning up the loose congested cough, comfortable in no apparent distress. HEAD: Normocephalic/atraumatic. EYES: Normal reaction of pupils, equal size. Conjunctiva pink, sclera white. NOSE: Clear with pink turbinates. THROAT: No erythema or exudates. NECK: No masses, no JVD, no thyroid enlargement, no adenopathy. CHEST: No chest wall deformity. Symmetrical expansion. LUNGS: Equal air entry with some scattered rhonchi, CVS: Regular rate and rhythm, normal S1 and S2, no gallops, no murmurs, no rubs ABDOMEN: Soft, nontender. No hepatosplenomegaly, normal bowel sounds, no guarding or rigidity. EXTREMITIES: No clubbing, no edema, no cyanosis, 2+ pulses and upper and lower extremities. MUSCULOSKELETAL: Muscle strength and tone normal. SPINE: No scoliosis or deformity SKIN: No rashes CENTRAL NERVOUS SYSTEM: Alert and oriented -3. No focal deficits, tone is normal in all 4 extremities. PSYCHIATRIC: Alert and oriented -3. Appropriate affect. Intact judgment and insight. - Labs CBC & Chem 7: 05/04/21 07:08 05/04/21 07:08 Labs: Abnormal Lab Results - Last 24 Hours (Table) 05/03/21 05/03/21 05/03/21 Range/Units 16:35 19:59 20:12 RBC (4.40-5.60) X 10*6/uL Hgb (13.0-17.0) g/dL Hct (39.6-50.0) % MCV (80.0-97.0) fL MCHC (32.0-37.0) g/dL RDW (11.5-14.5) % Plt Count (140-440) X 10*3/uL Sodium (137-145) mmol/L Chloride (98-107) mmol/L BUN (9-20) mg/dL Creatinine (0.66-1.25) mg/dL Glucose (74-99) mg/dL POC Glucose (mg/dL) 152 H 272 H 181 H (75-99) mg/dL Calcium (8.4-10.2) mg/dL Total Protein (6.3-8.2) g/dL Albumin (3.5-5.0) g/dL 05/04/21 05/04/21 05/04/21 Range/Units 06:53 07:08 07:08 RBC 2.98 L (4.40-5.60) X 10*6/uL Hgb 9.0 L (13.0-17.0) g/dL Hct 30.1 L (39.6-50.0) % MCV 101.0 H (80.0-97.0) fL MCHC 29.9 L (32.0-37.0) g/dL RDW 15.1 H (11.5-14.5) % Plt Count 81 L (140-440) X 10*3/uL Sodium 146 H (137-145) mmol/L Chloride 115 H (98-107) mmol/L BUN 62 H (9-20) mg/dL Creatinine 1.96 H (0.66-1.25) mg/dL Glucose 114 H (74-99) mg/dL POC Glucose (mg/dL) 113 H (75-99) mg/dL Calcium 8.3 L (8.4-10.2) mg/dL Total Protein 5.3 L (6.3-8.2) g/dL Albumin 2.9 L (3.5-5.0) g/dL 05/04/21 Range/Units 10:53 RBC (4.40-5.60) X 10*6/uL Hgb (13.0-17.0) g/dL Hct (39.6-50.0) % MCV (80.0-97.0) fL MCHC (32.0-37.0) g/dL RDW (11.5-14.5) % Plt Count (140-440) X 10*3/uL Sodium (137-145) mmol/L Chloride (98-107) mmol/L BUN (9-20) mg/dL Creatinine (0.66-1.25) mg/dL Glucose (74-99) mg/dL POC Glucose (mg/dL) 186 H (75-99) mg/dL Calcium (8.4-10.2) mg/dL Total Protein (6.3-8.2) g/dL Albumin (3.5-5.0) g/dL Microbiology - Last 24 Hours (Table) 04/29/21 17:00 Blood Culture - Preliminary Blood No Growth after 96 hours 04/29/21 16:45 Blood Culture - Preliminary Blood No Growth after 96 hours 04/30/21 14:45 Blood Culture - Preliminary Blood No Growth after 72 hours Assessment and Plan Plan: Assessment: #1. Acute hypoxic respiratory failure secondary to an acute right lower lung community acquired pneumonia, versus aspiration. There was noted aspiration with nectar thick liquids on swallow evaluation today #2. Acute on chronic renal failure #3. Chronic atrial fibrillation not on anticoagulants in the outpatient setting #4. Recent fall without acute injury, previous hospitalization in January 2020 post fall and large hematoma and acute blood loss #5. History of Parkinson's disease #6. Benign prostatic hyperplasia #7. History of depression #8. Diabetes mellitus Plan: Obtain follow-up chest x-ray in the morning Continue same antibiotics Hemodynamically stable Tolerating dysphagia 2 diet with honey thick liquids Maintain aspiration precautions Today's labs have been reviewed Would send a repeat sputum specimen in view of increased purulent phlegm production We'll continue to follow I performed a history & physical examination of the patient and discussed their management with my nurse practitioner, Elaine Salas. I reviewed the nurse practitioner's note and agree with the documented findings and plan of care. Lung sounds are positive for diffuse wheezes throughout the lung wylie. The findings and the impression was discussed with the patient. I attest to the documentation by the nurse practitioner. Time with Patient: Less than 30
[2021-05-04 16:46] LABS: Glucose,Whole Blood 189 mg/dL (75-99)
[2021-05-04 20:52] LABS: Glucose,Whole Blood 300 mg/dL (75-99)
[2021-05-04] MEDS: SERTRALINE 50 MG TAB PO SCH (21:07)
[2021-05-04] MEDS: allopurinoL 100 MG TAB PO SCH (21:07)
[2021-05-04] MEDS: ASCORBIC ACID 500 MG TAB PO SCH (21:07)
[2021-05-04] MEDS: INSULIN DETEMIR (LEVEMIR) 100 UNIT/ML SYR SQ SCH (21:08)
[2021-05-04] MEDS: MELATONIN 3 MG TABLET PO SCH (21:08)
[2021-05-04] MEDS ORDERED: INSULIN DETEMIR (LEVEMIR) 100 UNIT/ML SYR SQ SCH (21:30)
[2021-05-05] MEDS: PIPERACILLIN-TAZOBACTAM 3.375 GM in SODIUM CHLORIDE 0.9% 100 ML IVPB SCH ×3 (00:46→16:54)
[2021-05-05 00:52] LABS: Glucose,Whole Blood 65 mg/dL (75-99)
[2021-05-05 01:09] LABS: Glucose,Whole Blood 72 mg/dL (75-99)
[2021-05-05 01:34] LABS: Glucose,Whole Blood 77 mg/dL (75-99)
[2021-05-05 07:04] LABS: Glucose,Whole Blood 96 mg/dL (75-99)
[2021-05-05] MEDS ORDERED: INSULIN ASPART (NovoLOG) 100 UNIT/ML VIAL SQ SCH ×2 (07:30→17:30)
--- NOTE | 2021-05-05 07:38 | XR ---
EXAMINATION TYPE: XR chest 1V portable DATE OF EXAM: 05/05/2021 CLINICAL HISTORY: Difficulty breathing pneumonia progress study. TECHNIQUE: Single AP portable upright view of the chest is obtained. COMPARISON: Chest x-ray from one day earlier and older studies. FINDINGS: Persisting cardiomegaly with ectatic and atherosclerotic aorta. Persistent low lung volume s and right basilar masslike consolidation. Left lung remains clear. Multilevel spurring throughout t he thoracic spine. IMPRESSION: Cardiomegaly and low lung volumes with persistent right lower lung pneumonic consolidatio n. No significant change from most recent x-ray.
[2021-05-05] MEDS: INSULIN ASPART (NovoLOG) 100 UNIT/ML VIAL SQ SCH ×4 (07:39→20:57)
[2021-05-05] MEDS: FERROUS SULFATE 325 MG TAB PO SCH ×2 (09:10→20:58)
[2021-05-05] MEDS: MULTIVITAMINS, THERA 1 EACH TAB PO SCH (09:10)
[2021-05-05] MEDS: FUROSEMIDE 20 MG TAB PO SCH (09:10)
[2021-05-05] MEDS: OXYBUTYNIN XL 5 MG TAB.ER.24 PO SCH (09:10)
[2021-05-05] MEDS: methylPREDNISolone SOD SUCCI 40 MG/ML 1 ML VIAL IV SCH ×2 (09:10→20:58)
[2021-05-05] MEDS: FLUCONAZOLE 100 MG TAB PO SCH (09:11)
[2021-05-05] MEDS: IPRATROPIUM-ALBUTEROL 3 ML NEB INHALATION SCH ×4 (09:32→20:07)
[2021-05-05] MEDS: BUDESONIDE 1 MG/2 ML NEBU INHALATION SCH ×2 (09:32→20:07)
--- NOTE | 2021-05-05 10:34 | P.PN ---
Subjective Progress Note Date: 05/05/21 HISTORY OF PRESENT ILLNESS This is a pleasant 86-year-old gentleman, with known history of atrial fibrilla tion, COPD, cancer, diabetes mellitus, deafness, recurrent pneumonia, BPH, CK D, admitted to emergency room secondary to cough and shortness of breath. Patient cannot recollect how long he's been sick, however he mentions that whenever she eats, he coughs. Patient lives with the , and denies any sick contact. He has fever around 100, he was tested for Covid negative, and has been vaccinated. 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 Patient has no falls, however she ambulates with assist devices, when only his knees bad on no O2 requirements at home, unknown whether he uses a nebulizer not. In the emergency room, started on Rocephin and Zithromax, we'll going to obtain speech therapies along with consult to pulmonary medicine, Dr. Roth, O2 supplementation this time, and change his antibiotic to Zosyn and vancomycin. Pending blood culture identification of the gram-positive cocci. 05/01: Patient is scheduled for chest x-ray and modified barium swallow today. There continues to be concerned for aspiration. Patient continues to have cough. He has been afebrile, heart rate 52, blood pressure 122/72, pulse ox 97% on 5 L nasal cannula. Repeat blood work reveals sodium 142, potassium 4.2, chloride 115, CO2 18, BUN 53 and creatinine 1.7. Blood sugars are running in the 200s. Patient is continued on IV antibiotics in form of vancomycin and Zosyn. 05/02: Patient has been afebrile, heart rate 60, blood pressure 144/71, pulse ox 91% on 3 L nasal cannula. Capillary blood glucose running between 91 and 274. Levemir increased to 30 units at bedtime. Patient is continued on Solu-Medrol 40 mg IV every 6 hours. Patient continues to have confusion. He has cough with sputum production. Patient has been seen by PT and OT with recommendations for subacute rehab and social work is following for discharge to [facility]. Speech therapy has recommended chopped diet with aspiration precautions and honey thick liquids. He is continued on IV Zosyn and vancomycin. He has not had any diarrhea. Repeat chest x-ray from yesterday revealed more focal consolidation r ight lung base. Correlate for pneumonia. Modified barium swallow revealed revealed aspiration with nectar thick liquids, hesitancy of bolus formation. Pooling within the vallecula. 05/03: Patient continues to have wheezing but overall reading is improving. Solu- Medrol will be decreased to 40 mg every 12 hours. Pulmicort increased to 1 mg twice daily. Patient is ordered for 1 dose of IV Lasix. Patient has been afebrile, heart rate in the 60s and 70s, blood pressure 139/83, pulse ox 97% on 3 L nasal cannula. Creatinine 1.76. Blood sugars running between 125-220. Repeat blood work ordered for tomorrow. All blood cultures are showing no growth at 48-72 hours. Anticipate possible discharge tomorrow 05/04: The patient denies any new complaints. He does have continued wheezing for which no changes were Solu-Medrol and continue on inhaled steroids. Patient has been afebrile, heart rate 74, blood pressure 138/70, pulse ox 100% on 3 L nasal cannula. Capillary blood glucose running between 113 and 186. Repeat a.m. blood work report is still pending at 11 AM. IV fluids will be changed to saline lock, Diflucan added for thrush. Vancomycin discontinued. Anticipate possible discharge on Friday to [facility] and social work has been updated. Patient has been accepted at [facility] and insurance authorization has been obtained. 05/05: Patient states that his breathing is about the same as yesterday. He is pulse ox 94% on 2 L. He had one episode of high blood sugar for which changes were made to his insulins and because his sugars are now low, we will resume previous orders. He has been afebrile, heart rate in the 50s, blood pressure 156/85. Blood sugars are running between 65 and 96. Repeat chest x-ray reveals cardiomegaly and low lung volumes with persistent right lower lung pneumonic consolidation. No significant change from most recent x-ray. REVIEW OF SYSTEMS Constitutional: No fever, no chills, no night sweats. No weight change. Reported weakness, reported fatigue. No daytime sleepiness. EENT: No headache. No blurred vision or double vision, no loss of vision. Chronic hearing loss, no dizziness. No nasal drainage or congestion. No epistaxis. No sore throat. Lungs: Reported shortness of breath, noted cough, noted sputum production. Denies wheezing. Cardiovascular: No chest pain, no lower extremity edema. No palpitations. No paroxysmal nocturnal dyspnea. No orthopnea. No lightheadedness or dizziness. No syncopal episodes. Abdominal: No abdominal pain. No nausea, vomiting. No diarrhea. No constipation. No bloody or tarry stools.. No loss of appetite. Genitourinary: No dysuria, increased frequency, urgency. No urinary retention. Musculoskeletal: No myalgias. No muscle weakness, no gait dysfunction, no frequent falls. No back pain. No neck pain. Integumentary: No wounds, no lesions. No rash or pruritus. No unusual bruising. No change in hair or nails. Neurologic: No aphasia. No facial droop. Noted change in mentation. Poor short-term memory. No head injury. No headache. No paralysis. No paresthesia. Psychiatric: No depression. No anxiety. No mood swings. Endocrine: Noted abnormal blood sugars. No weight change. No excessive sweating or thirst. No cold intolerance. PHYSICAL EXAMINATION Gen: This is this is an 86-year-old male. He is resting in recliner appears to be comfortable at rest. HEENT: Head is atraumatic, normocephalic. Pupils equal, round. Sclerae is anicteric. NECK: Supple. No JVD. No lymphadenopathy. No thyromegaly. LUNGS: Bilateral crackles worse on the right side. Occasional cough. HEART: Regular rate and rhythm. No murmur. ABDOMEN: Soft. Bowel sounds are present. No masses. No tenderness. EXTREMITIES: No pedal edema. No calf tenderness. Dorsalis pedis is palpable bilaterally. NEUROLOGICAL: Patient is awake, alert and oriented x3. Cranial nerves 2 through 12 are grossly intact. ASSESSMENT AND PLAN 1. Pneumonia, aspiration pneumonia, presenting with fever SIRS, patient has history of respiratory events, consult with speech, and pulmonary medicine. Continue Zosyn. Continue aspiration precaution, continue Pulmicort 1 mg twice daily, Solu-Medrol 40 mg every 12 hours. 2. Bacteremia ruled out by negative blood cultures. Continue IV Zosyn and vancomycin, repeat blood cultures are negative. 3. Chronic atrial fibrillation, for which his doctor has discontinued anticoagulation, unknown cause the unknown history whether he had an intervention or not. 4. COPD, with exacerbation with albuterol, Atrovent and budesonide 5. Diabetes mellitus 2 not on treatment at home check aic 6. Hearing difficulties hearing loss 7. Hypertension 8. BPH without LUTS 9. Chronic gout on allopurinol 100 mg d 10. Fall risk, patient requires one crutch for community ambulation. Consult PT OT 11. DVT prophylaxis, Lovenox DISCHARGE PLAN [facility] on Friday. Impression and plan of care have been directed as dictated by the signing phys chiquis. Cindy Tobias nurse practitioner acting as scribe for signing physician. Objective - Vital Signs Vital signs: Vital Signs Temp 97.7 F 05/05/21 08:06 Pulse 60 05/05/21 08:06 Resp 17 05/05/21 08:06 BP 156/85 05/05/21 08:06 Pulse Ox 90 L 05/05/21 08:06 Intake & Output 05/04/21 05/05/21 05/05/21 18:59 06:59 18:59 Weight 95.254 kg Other: Voiding Method Urinal Urinal Incontinent Incontinent External Catheter # Voids 5 # Bowel Movements 1 - Labs CBC & Chem 7: 05/04/21 07:08 05/04/21 07:08 Labs: Abnormal Lab Results - Last 24 Hours (Table) 05/04/21 05/04/21 05/04/21 Range/Units 07:08 07:08 10:53 RBC 2.98 L (4.40-5.60) X 10*6/uL Hgb 9.0 L (13.0-17.0) g/dL Hct 30.1 L (39.6-50.0) % MCV 101.0 H (80.0-97.0) fL MCHC 29.9 L (32.0-37.0) g/dL RDW 15.1 H (11.5-14.5) % Plt Count 81 L (140-440) X 10*3/uL Sodium 146 H (137-145) mmol/L Chloride 115 H (98-107) mmol/L BUN 62 H (9-20) mg/dL Creatinine 1.96 H (0.66-1.25) mg/dL Glucose 114 H (74-99) mg/dL POC Glucose (mg/dL) 186 H (75-99) mg/dL Calcium 8.3 L (8.4-10.2) mg/dL Total Protein 5.3 L (6.3-8.2) g/dL Albumin 2.9 L (3.5-5.0) g/dL 05/04/21 05/04/21 05/05/21 Range/Units 16:45 20:51 00:49 RBC (4.40-5.60) X 10*6/uL Hgb (13.0-17.0) g/dL Hct (39.6-50.0) % MCV (80.0-97.0) fL MCHC (32.0-37.0) g/dL RDW (11.5-14.5) % Plt Count (140-440) X 10*3/uL Sodium (137-145) mmol/L Chloride (98-107) mmol/L BUN (9-20) mg/dL Creatinine (0.66-1.25) mg/dL Glucose (74-99) mg/dL POC Glucose (mg/dL) 189 H 300 H 65 L (75-99) mg/dL Calcium (8.4-10.2) mg/dL Total Protein (6.3-8.2) g/dL Albumin (3.5-5.0) g/dL 05/05/21 Range/Units 01:07 RBC (4.40-5.60) X 10*6/uL Hgb (13.0-17.0) g/dL Hct (39.6-50.0) % MCV (80.0-97.0) fL MCHC (32.0-37.0) g/dL RDW (11.5-14.5) % Plt Count (140-440) X 10*3/uL Sodium (137-145) mmol/L Chloride (98-107) mmol/L BUN (9-20) mg/dL Creatinine (0.66-1.25) mg/dL Glucose (74-99) mg/dL POC Glucose (mg/dL) 72 L (75-99) mg/dL Calcium (8.4-10.2) mg/dL Total Protein (6.3-8.2) g/dL Albumin (3.5-5.0) g/dL Microbiology - Last 24 Hours (Table) 04/29/21 17:00 Blood Culture - Preliminary Blood No Growth after 120 hours 04/29/21 16:45 Blood Culture - Preliminary Blood No Growth after 120 hours 04/30/21 14:45 Blood Culture - Preliminary Blood No Growth after 96 hours
[2021-05-05 11:23] LABS: Glucose,Whole Blood 146 mg/dL (75-99)
--- NOTE | 2021-05-05 13:16 | P.PN ---
Subjective Progress Note Date: 05/05/21 On today's evaluation on 05/03/2021 patient seen in follow-up on medical surgical floor, he is currently sitting up on the commode, he is cleaning up with the help of a nurse's aide. He still has a loose congested cough, however she sounds less congested on today's exam, no altered mentation, he is on 3 L of oxygen, pulse ox is 97%, his been afebrile overnight, no complaints of chest discomfort, no hemoptysis, yesterday's chest x-ray was showing improvement in appearance of the right lower lobe pneumonia. Patient is on the termination of Zosyn and vancomycin, for his blood cultures and sputum cultures have remained negative. On today's evaluation on 05/04/2021 patient seen in follow-up on medical surgical floor. He is awake and alert, in no acute distress, still has a congested cough, but no complete chest discomfort, no hemoptysis, he has however bringing up large amount of purulent sputum. he is currently on a combination of Zosyn and vancomycin. His initial sputum culture from a few days ago was negative. He is currently on 3 L of oxygen pulse ox is 95%, his had no fever or chills, he is tolerating oral diet, he is on dysphagia 2 diet with honey consistency thickened liquids. On today's labs White blood cell count 7.11, hemoglobin is 9, serum sodium is 146, potassium is 4.3, chloride is 115, BUN is 62, and creatinine is 1.96. No Altered mentation, vital signs have been stable On today's evaluation on 05/05/2021 patient is seen in follow-up on medical surgical floor, he is currently on 2 L of oxygen pulse ox is 94%, breathing fairly comfortably, she still spitting up some purulent colored sputum, and we had asked the staff to send another sputum sample for culture yesterday, he remains on antibiotics in the form of Zosyn, he is on Diflucan. Today's chest x-ray showing cardiomegaly and low lung volumes with persistent right lower lung pneumonic consolidation. No new labs today. No fever or chills, patient is on 2 L oxygen pulse ox 94%, breathing fairly comfortable, lung sounds are positive for some scattered rhonchi. No hemoptysis, he remains on a specialized diet, dysphagia 2 with honey thick liquids. Objective - Vital Signs Vital signs: Vital Signs Temp 97.7 F 05/05/21 08:06 Pulse 60 05/05/21 12:19 Resp 18 05/05/21 12:19 BP 156/85 05/05/21 08:06 Pulse Ox 94 L 05/05/21 09:32 Intake & Output 05/04/21 05/05/21 05/05/21 18:59 06:59 18:59 Weight 95.254 kg Other: Voiding Method Urinal Urinal Incontinent Incontinent External Catheter # Voids 5 # Bowel Movements 1 - Exam GENERAL EXAM: Alert, pleasant, 86-year-old white male, on 2 L of oxygen with pulse ox of 94%, sitting up on the commode, loose congested cough, comfortable in no apparent distress. HEAD: Normocephalic/atraumatic. EYES: Normal reaction of pupils, equal size. Conjunctiva pink, sclera white. NOSE: Clear with pink turbinates. THROAT: No erythema or exudates. NECK: No masses, no JVD, no thyroid enlargement, no adenopathy. CHEST: No chest wall deformity. Symmetrical expansion. LUNGS: Equal air entry with some scattered rhonchi, CVS: Regular rate and rhythm, normal S1 and S2, no gallops, no murmurs, no rubs ABDOMEN: Soft, nontender. No hepatosplenomegaly, normal bowel sounds, no guarding or rigidity. EXTREMITIES: No clubbing, no edema, no cyanosis, 2+ pulses and upper and lower extremities. MUSCULOSKELETAL: Muscle strength and tone normal. SPINE: No scoliosis or deformity SKIN: No rashes CENTRAL NERVOUS SYSTEM: Alert and oriented -3. No focal deficits, tone is normal in all 4 extremities. PSYCHIATRIC: Alert and oriented -3. Appropriate affect. Intact judgment and insight. - Labs CBC & Chem 7: 05/04/21 07:08 05/04/21 07:08 Labs: Abnormal Lab Results - Last 24 Hours (Table) 05/04/21 05/04/21 05/04/21 Range/Units 07:08 16:45 20:51 Sodium 146 H (137-145) mmol/L Chloride 115 H (98-107) mmol/L BUN 62 H (9-20) mg/dL Creatinine 1.96 H (0.66-1.25) mg/dL Glucose 114 H (74-99) mg/dL POC Glucose (mg/dL) 189 H 300 H (75-99) mg/dL Calcium 8.3 L (8.4-10.2) mg/dL Total Protein 5.3 L (6.3-8.2) g/dL Albumin 2.9 L (3.5-5.0) g/dL 05/05/21 05/05/21 05/05/21 Range/Units 00:49 01:07 11:21 Sodium (137-145) mmol/L Chloride (98-107) mmol/L BUN (9-20) mg/dL Creatinine (0.66-1.25) mg/dL Glucose (74-99) mg/dL POC Glucose (mg/dL) 65 L 72 L 146 H (75-99) mg/dL Calcium (8.4-10.2) mg/dL Total Protein (6.3-8.2) g/dL Albumin (3.5-5.0) g/dL Microbiology - Last 24 Hours (Table) 04/29/21 17:00 Blood Culture - Preliminary Blood No Growth after 120 hours 04/29/21 16:45 Blood Culture - Preliminary Blood No Growth after 120 hours 04/30/21 14:45 Blood Culture - Preliminary Blood No Growth after 96 hours Assessment and Plan Plan: Assessment: #1. Acute hypoxic respiratory failure secondary to an acute right lower lung community acquired pneumonia, versus aspiration. There was noted aspiration wi th nectar thick liquids on swallow evaluation today #2. Acute on chronic renal failure #3. Chronic atrial fibrillation not on anticoagulants in the outpatient setting #4. Recent fall without acute injury, previous hospitalization in January 2020 post fall and large hematoma and acute blood loss #5. History of Parkinson's disease #6. Benign prostatic hyperplasia #7. History of depression #8. Diabetes mellitus Plan: Follow-up chest x-ray in the morning has been noted showing persistent right lower lung pneumonic consolidation, possibly slightly worsened Clinically patient is the same He suspected to be on off aspirating despite being on dysphagia 2 diet with honey thick liquids Continue same antibiotics, currently on Zosyn, vancomycin has been discontinued Hemodynamically stable Maintain aspiration precautions Increase activity as tolerated We'll do a follow-up chest x-ray before [facility] is projected to be likely on Friday I performed a history & physical examination of the patient and discussed their management with my nurse practitioner, Elaine Salas. I reviewed the nurse practitioner's note and agree with the documented findings and plan of care. Danii ng sounds are positive for diffuse wheezes throughout the lung wylie. The findings and the impression was discussed with the patient. I attest to the documentation by the nurse practitioner. Time with Patient: Less than 30
[2021-05-05 16:50] LABS: Glucose,Whole Blood 240 mg/dL (75-99)
[2021-05-05 20:29] LABS: Glucose,Whole Blood 245 mg/dL (75-99)
[2021-05-05] MEDS: MELATONIN 3 MG TABLET PO SCH (20:58)
[2021-05-05] MEDS: ASCORBIC ACID 500 MG TAB PO SCH (20:58)
[2021-05-05] MEDS: allopurinoL 100 MG TAB PO SCH (20:58)
[2021-05-05] MEDS: SERTRALINE 50 MG TAB PO SCH (20:58)
[2021-05-05] MEDS: INSULIN DETEMIR (LEVEMIR) 100 UNIT/ML SYR SQ SCH (20:58)
[2021-05-06] MEDS: PIPERACILLIN-TAZOBACTAM 3.375 GM in SODIUM CHLORIDE 0.9% 100 ML IVPB SCH ×3 (00:38→17:41)
[2021-05-06 07:01] LABS: Glucose,Whole Blood 65 mg/dL (75-99)
[2021-05-06] MEDS ORDERED: DEXTROSE 50% SYRINGE 50 ML IVP ONE (07:05)
[2021-05-06] MEDS: BUDESONIDE 1 MG/2 ML NEBU INHALATION SCH ×2 (07:10→19:37)
[2021-05-06] MEDS: IPRATROPIUM-ALBUTEROL 3 ML NEB INHALATION SCH ×4 (07:10→19:37)
[2021-05-06 07:16] LABS: Glucose,Whole Blood 73 mg/dL (75-99)
[2021-05-06] MEDS: MULTIVITAMINS, THERA 1 EACH TAB PO SCH (07:34)
[2021-05-06] MEDS: ACETAMINOPHEN TAB 325 MG TAB PO PRN (07:34)
[2021-05-06] MEDS: FLUCONAZOLE 100 MG TAB PO SCH (07:34)
[2021-05-06] MEDS: methylPREDNISolone SOD SUCCI 40 MG/ML 1 ML VIAL IV SCH (07:34)
[2021-05-06] MEDS: FERROUS SULFATE 325 MG TAB PO SCH ×2 (07:34→20:31)
[2021-05-06] MEDS: OXYBUTYNIN XL 5 MG TAB.ER.24 PO SCH (07:35)
[2021-05-06] MEDS: FUROSEMIDE 20 MG TAB PO SCH (07:35)
[2021-05-06 07:36] LABS: Glucose,Whole Blood 113 mg/dL (75-99)
[2021-05-06] MEDS: INSULIN ASPART (NovoLOG) 100 UNIT/ML VIAL SQ SCH ×4 (07:45→20:31)
--- NOTE | 2021-05-06 10:29 | P.PN ---
Subjective Progress Note Date: 05/06/21 HISTORY OF PRESENT ILLNESS This is a pleasant 86-year-old gentleman, with known history of atrial fibrilla tion, COPD, cancer, diabetes mellitus, deafness, recurrent pneumonia, BPH, CK D, admitted to emergency room secondary to cough and shortness of breath. Patient cannot recollect how long he's been sick, however he mentions that whenever she eats, he coughs. Patient lives with the , and denies any sick contact. He has fever around 100, he was tested for Covid negative, and has been vaccinated. 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 Patient has no falls, however she ambulates with assist devices, when only his knees bad on no O2 requirements at home, unknown whether he uses a nebulizer not. In the emergency room, started on Rocephin and Zithromax, we'll going to obtain speech therapies along with consult to pulmonary medicine, Dr. Roth, O2 supplementation this time, and change his antibiotic to Zosyn and vancomycin. Pending blood culture identification of the gram-positive cocci. 05/01: Patient is scheduled for chest x-ray and modified barium swallow today. There continues to be concerned for aspiration. Patient continues to have cough. He has been afebrile, heart rate 52, blood pressure 122/72, pulse ox 97% on 5 L nasal cannula. Repeat blood work reveals sodium 142, potassium 4.2, chloride 115, CO2 18, BUN 53 and creatinine 1.7. Blood sugars are running in the 200s. Patient is continued on IV antibiotics in form of vancomycin and Zosyn. 05/02: Patient has been afebrile, heart rate 60, blood pressure 144/71, pulse ox 91% on 3 L nasal cannula. Capillary blood glucose running between 91 and 274. Levemir increased to 30 units at bedtime. Patient is continued on Solu-Medrol 40 mg IV every 6 hours. Patient continues to have confusion. He has cough with sputum production. Patient has been seen by PT and OT with recommendations for subacute rehab and social work is following for discharge to [facility]. Speech therapy has recommended chopped diet with aspiration precautions and honey thick liquids. He is continued on IV Zosyn and vancomycin. He has not had any diarrhea. Repeat chest x-ray from yesterday revealed more focal consolidation r ight lung base. Correlate for pneumonia. Modified barium swallow revealed revealed aspiration with nectar thick liquids, hesitancy of bolus formation. Pooling within the vallecula. 05/03: Patient continues to have wheezing but overall reading is improving. Solu- Medrol will be decreased to 40 mg every 12 hours. Pulmicort increased to 1 mg twice daily. Patient is ordered for 1 dose of IV Lasix. Patient has been afebrile, heart rate in the 60s and 70s, blood pressure 139/83, pulse ox 97% on 3 L nasal cannula. Creatinine 1.76. Blood sugars running between 125-220. Repeat blood work ordered for tomorrow. All blood cultures are showing no growth at 48-72 hours. Anticipate possible discharge tomorrow 05/04: The patient denies any new complaints. He does have continued wheezing for which no changes were Solu-Medrol and continue on inhaled steroids. Patient has been afebrile, heart rate 74, blood pressure 138/70, pulse ox 100% on 3 L nasal cannula. Capillary blood glucose running between 113 and 186. Repeat a.m. blood work report is still pending at 11 AM. IV fluids will be changed to saline lock, Diflucan added for thrush. Vancomycin discontinued. Anticipate possible discharge on Friday to [facility] and social work has been updated. Patient has been accepted at [facility] and insurance authorization has been obtained. 05/05: Patient states that his breathing is about the same as yesterday. He is pulse ox 94% on 2 L. He had one episode of high blood sugar for which changes were made to his insulins and because his sugars are now low, we will resume previous orders. He has been afebrile, heart rate in the 50s, blood pressure 156/85. Blood sugars are running between 65 and 96. Repeat chest x-ray reveals cardiomegaly and low lung volumes with persistent right lower lung pneumonic consolidation. No significant change from most recent x-ray. 05/06: Patient has been afebrile, heart rate 95, blood pressure 146/89, pulse ox 94% on 2 L nasal cannula. Capillary blood glucose this morning for breakfast was 65 repeat 73. We did make adjustments to insulin yesterday. Solu-Medrol changed to oral prednisone starting tomorrow REVIEW OF SYSTEMS Constitutional: No fever, no chills, no night sweats. No weight change. Reported weakness, reported fatigue. No daytime sleepiness. EENT: No headache. No blurred vision or double vision, no loss of vision. Chronic hearing loss, no dizziness. No nasal drainage or congestion. No epistaxis. No sore throat. Lungs: Reported shortness of breath, noted cough, noted sputum production. Denies wheezing. Cardiovascular: No chest pain, no lower extremity edema. No palpitations. No paroxysmal nocturnal dyspnea. No orthopnea. No lightheadedness or dizziness. No syncopal episodes. Abdominal: No abdominal pain. No nausea, vomiting. No diarrhea. No constipation. No bloody or tarry stools.. No loss of appetite. Genitourinary: No dysuria, increased frequency, urgency. No urinary retention. Musculoskeletal: No myalgias. No muscle weakness, no gait dysfunction, no frequent falls. No back pain. No neck pain. Integumentary: No wounds, no lesions. No rash or pruritus. No unusual bruising. No change in hair or nails. Neurologic: No aphasia. No facial droop. Noted change in mentation. Poor short-term memory. No head injury. No headache. No paralysis. No paresthesia. Psychiatric: No depression. No anxiety. No mood swings. Endocrine: Noted abnormal blood sugars, hypoglycemic in the morning. No weight change. PHYSICAL EXAMINATION Gen: This is this is an 86-year-old male. He is resting in recliner appears to be comfortable at rest. HEENT: Head is atraumatic, normocephalic. Pupils equal, round. Sclerae is anicteric. NECK: Supple. No JVD. No lymphadenopathy. No thyromegaly. LUNGS: Bilateral crackles worse on the right side. Occasional cough is noted. No accessory muscle usage. HEART: Regular rate and rhythm. No murmur. ABDOMEN: Soft. Bowel sounds are present. No masses. No tenderness. EXTREMITIES: No pedal edema. No calf tenderness. Dorsalis pedis is palpable bilaterally. NEUROLOGICAL: Patient is awake, alert and oriented x3. Cranial nerves 2 through 12 are grossly intact. ASSESSMENT AND PLAN 1. Pneumonia, aspiration pneumonia and sepsis. Continue Zosyn, consult with pulmonary medicine appreciated. Continue aspiration precaution, continue DuoNeb treatments 4 times daily and as needed, Pulmicort 1 mg twice daily, Solu-Medrol transitioned to oral prednisone starting tomorrow 2. Bacteremia ruled out by negative blood cultures. Continue IV Zosyn, repeat blood cultures are negative. 3. Chronic atrial fibrillation, for which his doctor has discontinued anticoagulation, unknown cause the unknown history whether he had an intervention or not. 4. COPD, with exacerbation with albuterol, Atrovent and budesonide 5. Diabetes mellitus 2 not on treatment at home check aic 6. Hearing difficulties hearing loss 7. Hypertension 8. BPH without LUTS 9. Chronic gout on allopurinol 100 mg d 10. Fall risk, patient requires one crutch for community ambulation. Consult PT OT 11. DVT prophylaxis, Lovenox DISCHARGE PLAN [facility] on Friday. Impression and plan of care have been directed as dictated by the signing physician. Cindy Tobias nurse practitioner acting as scribe for signing physician. Objective - Vital Signs Vital signs: Vital Signs Temp 97.7 F 05/06/21 08:00 Pulse 95 05/06/21 08:00 Resp 18 05/06/21 08:00 BP 146/89 05/06/21 08:00 Pulse Ox 94 L 05/06/21 08:00 Intake & Output 05/05/21 05/06/21 05/06/21 18:59 06:59 18:59 Output Total 450 Balance -450 Output: Urine 450 Other: Voiding Method Incontinent External Catheter - Labs CBC & Chem 7: 05/04/21 07:08 05/04/21 07:08 Labs: Abnormal Lab Results - Last 24 Hours (Table) 05/05/21 05/05/21 05/05/21 Range/Units 11:21 16:49 20:28 POC Glucose (mg/dL) 146 H 240 H 245 H (75-99) mg/dL 05/06/21 05/06/21 05/06/21 Range/Units 06:59 07:15 07:34 POC Glucose (mg/dL) 65 L 73 L 113 H (75-99) mg/dL Microbiology - Last 24 Hours (Table) 04/29/21 17:00 Blood Culture - Final Blood No Growth after 144 hours 04/29/21 16:45 Blood Culture - Final Blood No Growth after 144 hours 04/30/21 14:45 Blood Culture - Preliminary Blood No Growth after 120 hours
[2021-05-06 11:56] LABS: Glucose,Whole Blood 185 mg/dL (75-99)
--- NOTE | 2021-05-06 14:00 | P.PN ---
Subjective Progress Note Date: 05/06/21 Principal diagnosis: Acute hypoxic respiratory failure secondary to acute right lower lobe pneumonia, community-acquired. Hospital aspiration pneumonia. On today's evaluation on 05/03/2021 patient seen in follow-up on medical surgical floor, he is currently sitting up on the commode, he is cleaning up with the help of a nurse's aide. He still has a loose congested cough, however she sounds less congested on today's exam, no altered mentation, he is on 3 L of oxygen, pulse ox is 97%, his been afebrile overnight, no complaints of chest discomfort, no hemoptysis, yesterday's chest x-ray was showing improvement in appearance of the right lower lobe pneumonia. Patient is on the termination of Zosyn and vancomycin, for his blood cultures and sputum cultures have remained n egative. On today's evaluation on 05/04/2021 patient seen in follow-up on medical surgical floor. He is awake and alert, in no acute distress, still has a congested cough, but no complete chest discomfort, no hemoptysis, he has however bringing up large amount of purulent sputum. he is currently on a combination of Zosyn and vancomycin. His initial sputum culture from a few days ago was negative. He is currently on 3 L of oxygen pulse ox is 95%, his had no fever or chills, he is tolerating oral diet, he is on dysphagia 2 diet with honey consistency thickened liquids. On today's labs White blood cell count 7.11, hemoglobin is 9, serum sodium is 146, potassium is 4.3, chloride is 115, BUN is 62, and creatinine is 1.96. No Altered mentation, vital signs have been stable On today's evaluation on 05/05/2021 patient is seen in follow-up on medical surgical floor, he is currently on 2 L of oxygen pulse ox is 94%, breathing fairly comfortably, she still spitting up some purulent colored sputum, and we had asked the staff to send another sputum sample for culture yesterday, he remains on antibiotics in the form of Zosyn, he is on Diflucan. Today's chest x-ray showing cardiomegaly and low lung volumes with persistent right lower lung pneumonic consolidation. No new labs today. No fever or chills, patient is on 2 L oxygen pulse ox 94%, breathing fairly comfortable, lung sounds are positive for some scattered rhonchi. No hemoptysis, he remains on a specialized diet, dysphagia 2 with honey thick liquids. Reevaluated today on 05/06/2021, patient remains on the regular medical floor, sating at a bedside chair, in no distress. Remains on 2 L nasal cannula, he is hemodynamically stable, and afebrile with a temp of 97 7. No labs were done today. His last chest x-ray showed significant consolidation in the right lower lobe Objective - Vital Signs Vital signs: Vital Signs Temp 97.7 F 05/06/21 08:00 Pulse 69 05/06/21 10:55 Resp 18 05/06/21 10:55 BP 146/89 05/06/21 08:00 Pulse Ox 94 L 05/06/21 08:00 Intake & Output 05/05/21 05/06/21 05/06/21 18:59 06:59 18:59 Output Total 450 Balance -450 Output: Urine 450 Other: Voiding Method Incontinent External Catheter - Exam Gen: 86-year-old male. In no distress, on 2 liters nasal cannula, sitting at a bedside chair. HEENT: Head is atraumatic, normocephalic. PERRLA, EOMI, nonicteric. NECK: Supple. No JVD. No lymphadenopathy. No thyromegaly. LUNGS: Minimal crackles at the right base, symmetrical chest expansion. HEART: Normal S1 and S2, no S3 gallop. ABDOMEN: Soft. Bowel sounds are present. No masses. No tenderness. EXTREMITIES: No pedal edema. No calf tenderness. Dorsalis pedis is palpable bilaterally. NEUROLOGICAL: Alert and oriented 3 focal deficits. Psychiatric: Normal mood affect and normal mental status exam. Skin: No rashes. - Labs CBC & Chem 7: 05/04/21 07:08 05/04/21 07:08 Labs: Abnormal Lab Results - Last 24 Hours (Table) 05/05/21 05/05/21 05/06/21 Range/Units 16:49 20:28 06:59 POC Glucose (mg/dL) 240 H 245 H 65 L (75-99) mg/dL 05/06/21 05/06/21 05/06/21 Range/Units 07:15 07:34 11:55 POC Glucose (mg/dL) 73 L 113 H 185 H (75-99) mg/dL Microbiology - Last 24 Hours (Table) 04/29/21 17:00 Blood Culture - Final Blood No Growth after 144 hours 04/29/21 16:45 Blood Culture - Final Blood No Growth after 144 hours 04/30/21 14:45 Blood Culture - Preliminary Blood No Growth after 120 hours Assessment and Plan Assessment: #1. Acute hypoxic respiratory failure secondary to an acute right lower lung community acquired pneumonia, versus aspiration. #2. Acute on chronic renal failure #3. Chronic atrial fibrillation not on anticoagulants in the outpatient setting #4. Recent fall without acute injury, previous hospitalization in January 2020 post fall and large hematoma and acute blood loss #5. History of Parkinson's disease #6. Benign prostatic hyperplasia #7. History of depression #8. Diabetes mellitus Recommendation: Continue present treatment plan including antibiotics. Patient is on Zosyn. Consider eventually transitioning to Augmentin. Continue aspiration precautions. Increase activity as tolerated. We will likely clear for the patient to be discharged back to [facility] on Friday. We'll continue to follow while inpatient. Time with Patient: Less than 30
[2021-05-06 16:58] LABS: Glucose,Whole Blood 294 mg/dL (75-99)
[2021-05-06 20:20] LABS: Glucose,Whole Blood 146 mg/dL (75-99)
[2021-05-06] MEDS: allopurinoL 100 MG TAB PO SCH (20:31)
[2021-05-06] MEDS: SERTRALINE 50 MG TAB PO SCH (20:31)
[2021-05-06] MEDS: MELATONIN 3 MG TABLET PO SCH (20:31)
[2021-05-06] MEDS: ASCORBIC ACID 500 MG TAB PO SCH (20:31)
[2021-05-06] MEDS: INSULIN DETEMIR (LEVEMIR) 100 UNIT/ML SYR SQ SCH (20:32)
[2021-05-07] MEDS: PIPERACILLIN-TAZOBACTAM 3.375 GM in SODIUM CHLORIDE 0.9% 100 ML IVPB SCH ×2 (00:39→07:29)
[2021-05-07 02:59] LABS: Glucose,Whole Blood 56 mg/dL (75-99)
[2021-05-07 02:59] LABS: Glucose,Whole Blood 28 mg/dL (75-99)
[2021-05-07 02:59] LABS: Glucose,Whole Blood 63 mg/dL (75-99)
[2021-05-07 03:06] LABS: Glucose,Whole Blood 67 mg/dL (75-99)
[2021-05-07 03:20] LABS: Glucose,Whole Blood 63 mg/dL (75-99)
[2021-05-07 03:51] LABS: Glucose,Whole Blood 82 mg/dL (75-99)
--- NOTE | 2021-05-07 07:01 | XR ---
EXAMINATION TYPE: XR chest 1V portable DATE OF EXAM: 05/07/2021 HISTORY: Shortness of breath. COMPARISON: 05/05/2021 TECHNIQUE: Single view of the chest is submitted. FINDINGS: Demonstrated are scattered senescent parenchymal change. Patchy basilar infiltrates persist although there is mild improvement at the right lower lobe. Contin ued follow-up is advised. The heart is stable. Hilar and mediastinal structures are within normal limits. Degenerative changes are seen of the dorsal spine. IMPRESSION: 1. Patchy basilar infiltrates persist although there is mild improvement at the right lower lobe. Co ntinued follow-up is advised.
[2021-05-07 07:05] LABS: Glucose,Whole Blood 130 mg/dL (75-99)
[2021-05-07] MEDS: IPRATROPIUM-ALBUTEROL 3 ML NEB INHALATION SCH ×2 (07:05→11:13)
[2021-05-07] MEDS: BUDESONIDE 1 MG/2 ML NEBU INHALATION SCH (07:05)
[2021-05-07] MEDS: ACETAMINOPHEN TAB 325 MG TAB PO PRN (07:29)
[2021-05-07] MEDS: FLUCONAZOLE 100 MG TAB PO SCH (07:30)
[2021-05-07] MEDS: FUROSEMIDE 20 MG TAB PO SCH (07:30)
[2021-05-07] MEDS: MULTIVITAMINS, THERA 1 EACH TAB PO SCH (07:30)
[2021-05-07] MEDS: FERROUS SULFATE 325 MG TAB PO SCH (07:30)
[2021-05-07] MEDS: OXYBUTYNIN XL 5 MG TAB.ER.24 PO SCH (07:30)
[2021-05-07 08:11] VITALS: BP 125/71; TEMP 98.5
[2021-05-07] MEDS: INSULIN ASPART (NovoLOG) 100 UNIT/ML VIAL SQ SCH (08:47)
[2021-05-07 08:52] VITALS: RESP 16
[2021-05-07] MEDS ORDERED: predniSONE 20 MG TAB PO SCH (09:00)
--- NOTE | 2021-05-07 09:27 | P.DS ---
Providers Date of admission: 04/29/21 18:04 Expected date of discharge: 05/07/21 Attending physician: Catherine Hair Consults: 04/29/21 18:04 Consult Physician Routine Consulting Provider: Jim Roth Consult Reason/Comments: COPD, PNA Do you want consulting provider notified?: Yes Primary care physician: [facility] Course: HISTORY OF PRESENT ILLNESS This is a pleasant 86-year-old gentleman, with known history of atrial fibrillation, COPD, cancer, diabetes mellitus, deafness, recurrent pneumonia, BPH, CK D, admitted to emergency room secondary to cough and shortness of breath. Patient cannot recollect how long he's been sick, however he mentions that whenever she eats, he coughs. Patient lives with the , and denies any sick contact. He has fever around 100, he was tested for Covid negative, and has been vaccinated. 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 Patient has no falls, however she ambulates with assist devices, when only his knees bad on no O2 requirements at home, unknown whether he uses a nebulizer not. In the emergency room, started on Rocephin and Zithromax, we'll going to obtain speech therapies along with consult to pulmonary medicine, Dr. Roth, O2 supplementation this time, and change his antibiotic to Zosyn and vancomycin. Pending blood culture identification of the gram-positive cocci. 05/01: Patient is scheduled for chest x-ray and modified barium swallow today. There continues to be concerned for aspiration. Patient continues to have cough. He has been afebrile, heart rate 52, blood pressure 122/72, pulse ox 97% on 5 L nasal cannula. Repeat blood work reveals sodium 142, potassium 4.2, chloride 115, CO2 18, BUN 53 and creatinine 1.7. Blood sugars are running in the 200s. Patient is continued on IV antibiotics in form of vancomycin and Zosyn. 05/02: Patient has been afebrile, heart rate 60, blood pressure 144/71, pulse ox 91% on 3 L nasal cannula. Capillary blood glucose running between 91 and 274. Levemir increased to 30 units at bedtime. Patient is continued on Solu-Medrol 40 mg IV every 6 hours. Patient continues to have confusion. He has cough with sputum production. Patient has been seen by PT and OT with recommendations for subacute rehab and social work is following for discharge to [facility]. Speech therapy has recommended chopped diet with aspiration precautions and honey thick liquids. He is continued on IV Zosyn and vancomycin. He has not had any diarrhea. Repeat chest x-ray from yesterday revealed more focal consolidation right lung base. Correlate for pneumonia. Modified barium swallow revealed revealed aspiration with nectar thick liquids, hesitancy of bolus formation. Pooling within the vallecula. 05/03: Patient continues to have wheezing but overall reading is improving. Solu- Medrol will be decreased to 40 mg every 12 hours. Pulmicort increased to 1 mg twice daily. Patient is ordered for 1 dose of IV Lasix. Patient has been afebrile, heart rate in the 60s and 70s, blood pressure 139/83, pulse ox 97% on 3 L nasal cannula. Creatinine 1.76. Blood sugars running between 125-220. Repeat blood work ordered for tomorrow. All blood cultures are showing no growth at 48-72 hours. Anticipate possible discharge tomorrow 05/04: The patient denies any new complaints. He does have continued wheezing for which no changes were Solu-Medrol and continue on inhaled steroids. Patient has been afebrile, heart rate 74, blood pressure 138/70, pulse ox 100% on 3 L nasal cannula. Capillary blood glucose running between 113 and 186. Repeat a. m. blood work report is still pending at 11 AM. IV fluids will be changed to saline lock, Diflucan added for thrush. Vancomycin discontinued. Anticipate possible discharge on Friday to [facility] and social work has been updated. Patient has been accepted at [facility] and insurance authorization has been obtained. 05/05: Patient states that his breathing is about the same as yesterday. He is pulse ox 94% on 2 L. He had one episode of high blood sugar for which changes were made to his insulins and because his sugars are now low, we will resume previous orders. He has been afebrile, heart rate in the 50s, blood pressure 156/85. Blood sugars are running between 65 and 96. Repeat chest x-ray reveals cardiomegaly and low lung volumes with persistent right lower lung pneumonic consolidation. No significant change from most recent x-ray. 05/06: Patient has been afebrile, heart rate 95, blood pressure 146/89, pulse ox 94% on 2 L nasal cannula. Capillary blood glucose this morning for breakfast was 65 repeat 73. We did make adjustments to insulin yesterday. Solu-Medrol changed to oral prednisone starting tomorrow 05/07: Patient has been afebrile, heart rate 76, blood pressure 125/71, pulse ox 92% on 2 L nasal cannula. Patient had a blood sugar of 28 at 2 AM recovered to 56 and now at 130. Schedule insulin will be discontinued and patient started on Actos as he does have a hemoglobin A1c of 8.2. Patient will continue on insulin scale while he is on steroids. We will plan for only a 5 day course of prednisone at discharge. [facility] Patient will be discharged today in stable condition. ASSESSMENT AND PLAN 1. Aspiration pneumonia, sepsis. 2. Bacteremia ruled out by negative blood cultures. 3. Chronic atrial fibrillation, for which his doctor has discontinued anticoagulation, unknown cause 4. COPD, with exacerbation 5. Diabetes mellitus 2, A1c 8.2 6. Hearing difficulties hearing loss 7. Hypertension 8. BPH without LUTS 9. Chronic gout on allopurinol 100 mg d 10. Fall risk, patient requires one crutch for community ambulation. DISCHARGE PLAN [facility] Impression and plan of care have been directed as dictated by the signing physician. Cindy Tobias nurse practitioner acting as scribe for signing physician. Patient Condition at Discharge: Stable Plan - Discharge Summary Discharge Rx Participant: No New Discharge Prescriptions: New Fluconazole [Diflucan] 100 mg PO DAILY #5 tab Ipratropium-Albuterol Nebulize [Duoneb 0.5 mg-3 mg/3 ml Soln] 3 ml INHALATION RT-QID ml Melatonin 6 mg PO HS tablet Budesonide [Pulmicort] 1 mg INHALATION RT-BID ml Amoxicillin/Potassium Clav [Augmentin 500-125 Tablet] 1 tab PO Q12HR 2 Days #4 tab Pioglitazone [Actos] 15 mg PO DAILY #30 tab INSULIN ASPART (NovoLOG) [NovoLOG (formulary)] 0 unit SQ ACHS ml predniSONE [Deltasone] 40 mg PO DAILY #10 tab Continue Multivitamins, Thera [Multivitamin (formulary)] 1 tab PO DAILY Ferrous Sulfate [Feosol] 325 mg PO BID Ascorbic Acid [Vitamin C] 500 mg PO HS allopurinoL [Zyloprim] 200 mg PO HS Sertraline [Zoloft] 50 mg PO HS Furosemide [Lasix] 20 mg PO DAILY #30 tab Tolterodine Tartrate [Tolterodine Tartrate ER] 4 mg PO DAILY guaiFENesin-DM 100-10MG/5ML [Robitussin DM] 10 ml PO BID PRN PRN Reason: Cough Albuterol Inhaler [Ventolin Hfa Inhaler] 2 puff INHALATION RT-QID #18 gm Discontinued Azithromycin [Zithromax Tri-Tab] 500 mg PO DAILY #3 tab Discharge Medication List Ferrous Sulfate [Feosol] 325 mg PO BID 03/25/14 [History] Multivitamins, Thera [Multivitamin (formulary)] 1 tab PO DAILY 03/25/14 [History] Ascorbic Acid [Vitamin C] 500 mg PO HS 11/21/16 [History] Sertraline [Zoloft] 50 mg PO HS 01/25/20 [History] allopurinoL [Zyloprim] 200 mg PO HS 01/25/20 [History] Furosemide [Lasix] 20 mg PO DAILY #30 tab 02/03/20 [Rx] Albuterol Inhaler [Ventolin Hfa Inhaler] 2 puff INHALATION RT-QID #18 gm 04/29/21 [Rx] Tolterodine Tartrate [Tolterodine Tartrate ER] 4 mg PO DAILY 04/29/21 [History] guaiFENesin-DM 100-10MG/5ML [Robitussin DM] 10 ml PO BID PRN 04/29/21 [History] Amoxicillin/Potassium Clav [Augmentin 500-125 Tablet] 1 tab PO Q12HR 2 Days #4 tab 05/07/21 [Rx] Budesonide [Pulmicort] 1 mg INHALATION RT-BID ml 05/07/21 [Rx] Fluconazole [Diflucan] 100 mg PO DAILY #5 tab 05/07/21 [Rx] INSULIN ASPART (NovoLOG) [NovoLOG (formulary)] 0 unit SQ ACHS ml 05/07/21 [Rx] Ipratropium-Albuterol Nebulize [Duoneb 0.5 mg-3 mg/3 ml Soln] 3 ml INHALATION RT-QID ml 05/07/21 [Rx] Melatonin 6 mg PO HS tablet 05/07/21 [Rx] Pioglitazone [Actos] 15 mg PO DAILY #30 tab 05/07/21 [Rx] predniSONE [Deltasone] 40 mg PO DAILY #10 tab 05/07/21 [Rx] Follow up Appointment(s)/Referral(s): Estiven Argueta, [NON-STAFF] - As Needed Darvin Hurd DO [Primary Care Provider] - 1 Week (after discharge from [facility]) Discharge Disposition: TRANSFER TO SNF/ECF
[2021-05-07 11:24] VITALS: PULSE 72
[2021-05-07 11:36] LABS: Glucose,Whole Blood 147 mg/dL (75-99)
[2021-05-07 12:43] LABS: African American GFR (CKD) 41.4 (60.0-200.0); Albumin/Globulin Ratio 1.67 (1.60-3.17); BUN/Creat Ratio 33.53 Ratio (12.00-20.00); Calcium 7.9 mg/dL (8.7-10.3); Globulin 1.8 g/dL (1.6-3.3); Non-African American GFR(CKD) 35.7 (60.0-200.0); Potassium 4.2 mmol/L (3.5-5.5); Total Bilirubin 0.4 mg/dL (0.2-1.2); Total Protein 4.8 g/dL (6.2-8.2)
[2021-05-07 12:45] LABS: HCT 31.4 % (39.6-50.0); HGB 9.5 g/dL (13.0-17.0); MCH 30.7 pg (27.0-32.0); MCHC 30.3 g/dL (32.0-37.0); MCV 101.6 fL (80.0-97.0); Platelet Count 88 X 10*3/uL (140-440); RBC 3.09 X 10*6/uL (4.40-5.60); RDW 15.4 % (11.5-14.5); WBC 10.97 X 10*3/uL (4.50-10.00)
[2021-05-07 12:46] LABS: Basophils # (M) 0 X 10*3/uL (0.00-0.10); Eosinophils # (M) 0.11 X 10*3/uL (0.04-0.35); Metamyelocytes % 1 % (0-0); Monocytes # (M) 0.33 X 10*3/uL (0.20-1.00); Myelocytes % 1 % (0-0); Neutrophils # (M) 9.21 X 10*3/uL (2.00-8.90); Neutrophils % (M) 84 %
--- NOTE | 2021-05-07 15:22 | P.PN ---
Subjective Progress Note Date: 05/07/21 Principal diagnosis: Acute hypoxic respiratory failure secondary to acute right lower lobe pneumonia, community-acquired. Hospital aspiration pneumonia. On today's evaluation on 05/03/2021 patient seen in follow-up on medical surgical floor, he is currently sitting up on the commode, he is cleaning up with the help of a nurse's aide. He still has a loose congested cough, however she sounds less congested on today's exam, no altered mentation, he is on 3 L of oxygen, pulse ox is 97%, his been afebrile overnight, no complaints of chest discomfort, no hemoptysis, yesterday's chest x-ray was showing improvement in appearance of the right lower lobe pneumonia. Patient is on the termination of Zosyn and vancomycin, for his blood cultures and sputum cultures have remained n egative. On today's evaluation on 05/04/2021 patient seen in follow-up on medical surgical floor. He is awake and alert, in no acute distress, still has a congested cough, but no complete chest discomfort, no hemoptysis, he has however bringing up large amount of purulent sputum. he is currently on a combination of Zosyn and vancomycin. His initial sputum culture from a few days ago was negative. He is currently on 3 L of oxygen pulse ox is 95%, his had no fever or chills, he is tolerating oral diet, he is on dysphagia 2 diet with honey consistency thickened liquids. On today's labs White blood cell count 7.11, hemoglobin is 9, serum sodium is 146, potassium is 4.3, chloride is 115, BUN is 62, and creatinine is 1.96. No Altered mentation, vital signs have been stable On today's evaluation on 05/05/2021 patient is seen in follow-up on medical surgical floor, he is currently on 2 L of oxygen pulse ox is 94%, breathing fairly comfortably, she still spitting up some purulent colored sputum, and we had asked the staff to send another sputum sample for culture yesterday, he remains on antibiotics in the form of Zosyn, he is on Diflucan. Today's chest x-ray showing cardiomegaly and low lung volumes with persistent right lower lung pneumonic consolidation. No new labs today. No fever or chills, patient is on 2 L oxygen pulse ox 94%, breathing fairly comfortable, lung sounds are positive for some scattered rhonchi. No hemoptysis, he remains on a specialized diet, dysphagia 2 with honey thick liquids. Reevaluated today on 05/06/2021, patient remains on the regular medical floor, sating at a bedside chair, in no distress. Remains on 2 L nasal cannula, he is hemodynamically stable, and afebrile with a temp of 97 7. No labs were done today. His last chest x-ray showed significant consolidation in the right lower lobe Reevaluated today on 05/07/2021, patient remains on the regular medical floor, he is sitting in a bedside chair, doing great, asymptomatic, chest x-ray showed improvement in his right lower lobe pneumonia, I believe the patient could be cleared to be [facility] today. And I see that his discharge summary has already been dictated. Objective - Vital Signs Vital signs: Vital Signs Temp 98.5 F 05/07/21 07:21 Pulse 72 05/07/21 11:22 Resp 16 05/07/21 08:00 BP 125/71 05/07/21 07:21 Pulse Ox 92 L 05/07/21 07:21 Intake & Output 05/06/21 05/07/21 05/07/21 18:59 06:59 18:59 Output Total 900 850 Balance -900 -850 Output: Urine 900 850 Other: Voiding Method Incontinent External Catheter External Catheter # Voids 600 - Exam Gen: 86-year-old male. In no distress, on 2 liters nasal cannula, sitting at a bedside chair. HEENT: Head is atraumatic, normocephalic. PERRLA, EOMI, nonicteric. NECK: Supple. No JVD. No lymphadenopathy. No thyromegaly. LUNGS: Minimal crackles at the right base, symmetrical chest expansion. HEART: Normal S1 and S2, no S3 gallop. ABDOMEN: Soft. Bowel sounds are present. No masses. No tenderness. EXTREMITIES: No pedal edema. No calf tenderness. Dorsalis pedis is palpable bilaterally. NEUROLOGICAL: Alert and oriented 3 focal deficits. Psychiatric: Normal mood affect and normal mental status exam. Skin: No rashes. - Labs CBC & Chem 7: 05/07/21 07:03 05/07/21 07:03 Labs: Abnormal Lab Results - Last 24 Hours (Table) 05/06/21 05/06/21 05/07/21 Range/Units 16:56 20:18 02:30 WBC (4.50-10.00) X 10*3/uL RBC (4.40-5.60) X 10*6/uL Hgb (13.0-17.0) g/dL Hct (39.6-50.0) % MCV (80.0-97.0) fL MCHC (32.0-37.0) g/dL RDW (11.5-14.5) % Plt Count (140-440) X 10*3/uL Plt Count Comment Metamyelocytes % (0-0) % Myelocytes % (0-0) % Neutrophils # (Manual) (2.00-8.90) X 10*3/uL Sodium (135-145) mmol/L Chloride (96-109) mmol/L BUN (9.0-27.0) mg/dL Creatinine (0.6-1.5) mg/dL Est GFR (CKD-EPI)AfAm (60.0-200.0) Est GFR (CKD-EPI)NonAf (60.0-200.0) BUN/Creatinine Ratio (12.00-20.00) Ratio Glucose (70-110) mg/dL POC Glucose (mg/dL) 294 H 146 H 63 L (75-99) mg/dL Calcium (8.7-10.3) mg/dL Total Protein (6.2-8.2) g/dL Albumin (3.80-4.90) g/dL 05/07/21 05/07/21 05/07/21 Range/Units 02:50 02:51 03:04 WBC (4.50-10.00) X 10*3/uL RBC (4.40-5.60) X 10*6/uL Hgb (13.0-17.0) g/dL Hct (39.6-50.0) % MCV (80.0-97.0) fL MCHC (32.0-37.0) g/dL RDW (11.5-14.5) % Plt Count (140-440) X 10*3/uL Plt Count Comment Metamyelocytes % (0-0) % Myelocytes % (0-0) % Neutrophils # (Manual) (2.00-8.90) X 10*3/uL Sodium (135-145) mmol/L Chloride (96-109) mmol/L BUN (9.0-27.0) mg/dL Creatinine (0.6-1.5) mg/dL Est GFR (CKD-EPI)AfAm (60.0-200.0) Est GFR (CKD-EPI)NonAf (60.0-200.0) BUN/Creatinine Ratio (12.00-20.00) Ratio Glucose (70-110) mg/dL POC Glucose (mg/dL) 28 L 56 L 67 L (75-99) mg/dL Calcium (8.7-10.3) mg/dL Total Protein (6.2-8.2) g/dL Albumin (3.80-4.90) g/dL 05/07/21 05/07/21 05/07/21 Range/Units 03:17 07:03 07:03 WBC 10.97 H (4.50-10.00) X 10*3/uL RBC 3.09 L (4.40-5.60) X 10*6/uL Hgb 9.5 L (13.0-17.0) g/dL Hct 31.4 L (39.6-50.0) % MCV 101.6 H (80.0-97.0) fL MCHC 30.3 L (32.0-37.0) g/dL RDW 15.4 H (11.5-14.5) % Plt Count 88 L (140-440) X 10*3/uL Plt Count Comment DECREASED A Metamyelocytes % 1 H (0-0) % Myelocytes % 1 H (0-0) % Neutrophils # (Manual) 9.21 H (2.00-8.90) X 10*3/uL Sodium 149 H (135-145) mmol/L Chloride 116 H (96-109) mmol/L BUN 57.0 H (9.0-27.0) mg/dL Creatinine 1.7 H (0.6-1.5) mg/dL Est GFR (CKD-EPI)AfAm 41.4 L (60.0-200.0) Est GFR (CKD-EPI)NonAf 35.7 L (60.0-200.0) BUN/Creatinine Ratio 33.53 H (12.00-20.00) Ratio Glucose 117 H (70-110) mg/dL POC Glucose (mg/dL) 63 L (75-99) mg/dL Calcium 7.9 L (8.7-10.3) mg/dL Total Protein 4.8 L (6.2-8.2) g/dL Albumin 3.00 L (3.80-4.90) g/dL 05/07/21 05/07/21 Range/Units 07:03 11:34 WBC (4.50-10.00) X 10*3/uL RBC (4.40-5.60) X 10*6/uL Hgb (13.0-17.0) g/dL Hct (39.6-50.0) % MCV (80.0-97.0) fL MCHC (32.0-37.0) g/dL RDW (11.5-14.5) % Plt Count (140-440) X 10*3/uL Plt Count Comment Metamyelocytes % (0-0) % Myelocytes % (0-0) % Neutrophils # (Manual) (2.00-8.90) X 10*3/uL Sodium (135-145) mmol/L Chloride (96-109) mmol/L BUN (9.0-27.0) mg/dL Creatinine (0.6-1.5) mg/dL Est GFR (CKD-EPI)AfAm (60.0-200.0) Est GFR (CKD-EPI)NonAf (60.0-200.0) BUN/Creatinine Ratio (12.00-20.00) Ratio Glucose (70-110) mg/dL POC Glucose (mg/dL) 130 H 147 H (75-99) mg/dL Calcium (8.7-10.3) mg/dL Total Protein (6.2-8.2) g/dL Albumin (3.80-4.90) g/dL Microbiology - Last 24 Hours (Table) 04/30/21 14:45 Blood Culture - Final Blood No Growth after 144 hours Assessment and Plan Assessment: #1. Acute hypoxic respiratory failure secondary to an acute right lower lung community acquired pneumonia, versus aspiration. #2. Acute on chronic renal failure #3. Chronic atrial fibrillation not on anticoagulants in the outpatient setting #4. Recent fall without acute injury, previous hospitalization in January 2020 post fall and large hematoma and acute blood loss #5. History of Parkinson's disease #6. Benign prostatic hyperplasia #7. History of depression #8. Diabetes mellitus Recommendation: Agree with discharging the patient to jail on Augmentin at least 7 more days Continue aspiration precautions. Increase activity as tolerated. We will likely clear for the patient to be discharged back to [facility] today We'll continue to follow while inpatient. Time with Patient: Less than 30
== END 2021-05-07 13:41 | DRG 871 ==
LOC: EC 16:05 → 4SSUR 18:04
PROVIDERS: ADMIT Family Medicine; ATTEND Family Medicine
DX: A41.9 Sepsis, unspecified organism (principal); J69.0 Pneumonitis due to inhalation of food and vomit; J96.01 Acute respiratory failure with hypoxia; I48.20 Chronic atrial fibrillation, unspecified; J44.0 Chronic obstructive pulmonary disease with (acute) lower respiratory infection; J44.1 Chronic obstructive pulmonary disease with (acute) exacerbation; N17.9 Acute kidney failure, unspecified; B37.9 Candidiasis, unspecified; G20 Parkinson's disease; E11.22 Type 2 diabetes mellitus with diabetic chronic kidney disease; E11.65 Type 2 diabetes mellitus with hyperglycemia; F32.9 Major depressive disorder, single episode, unspecified; H54.61 Unqualified visual loss, right eye, normal vision left eye; H91.90 Unspecified hearing loss, unspecified ear; M1A.9XX0 Chronic gout, unspecified, without tophus (tophi); N40.0 Benign prostatic hyperplasia without lower urinary tract symptoms; N18.30 Chronic kidney disease, stage 3 unspecified; I12.9 Hypertensive chronic kidney disease with stage 1 through stage 4 chronic kidney disease, or unspecified chronic kidney disease; Z20.822 Contact with and (suspected) exposure to COVID-19; M13.0 Polyarthritis, unspecified; I51.7 Cardiomegaly; W01.0XXA Fall on same level from slipping, tripping and stumbling without subsequent striking against object, initial encounter; Z79.51 Long term (current) use of inhaled steroids; Z79.899 Other long term (current) drug therapy; Z85.841 Personal history of malignant neoplasm of brain; Z87.01 Personal history of pneumonia (recurrent); Z87.891 Personal history of nicotine dependence; Z90.5 Acquired absence of kidney; Z91.81 History of falling
CPT/HCPCS: 36415; 71045; 74230; 80048; 80053; 80202; 82565; 83036; 83605; 83735; 84145; 85025; 85027; 85610; 85730; 87040; 87070; 87205; 94640; 94760; 96361; 96365; 99285

== ENCOUNTER 2021-05-13 05:52 | Inpatient (IN) | payer MEDICARE ==
[2021-05-13 06:20] LABS: Glucose,Whole Blood 220 mg/dL (75-99)
[2021-05-13] MEDS ORDERED: SODIUM CHLORIDE 0.9% 500 ML 500 ML IV STA (06:22)
--- NOTE | 2021-05-13 06:27 | ED ---
General Adult HPI - General Chief complaint: Syncope Stated complaint: Syncope Time Seen by Provider: 05/13/21 06:06 Source: patient, EMS Mode of arrival: EMS Limitations: no limitations - History of Present Illness Initial comments: 86-year-old male with a past medical history of atrial fibrillation, COPD, diabetes mellitus, hypertension, pneumonia presents to the emergency room for a chief complaint of syncope. Patient is currently at a residential facility after recent discharge from the hospital for rehab. Patient got up from bed this morning and had a syncopal episode. Fell on the floor. Patient also complaining of abdominal pain. States this started last night. No nausea vomiting diarrhea.Patient has no other complaints at this time including shortness of breath, chest pain, abdominal pain, nausea or vomiting, headache, or visual changes. - Related Data Home Medications Medication Instructions Recorded Confirmed Ferrous Sulfate [Feosol] 325 mg PO BID 03/25/14 04/29/21 Multivitamins, Thera [Multivitamin 1 tab PO DAILY 03/25/14 04/29/21 (formulary)] Ascorbic Acid [Vitamin C] 500 mg PO HS 11/21/16 04/29/21 Sertraline [Zoloft] 50 mg PO HS 01/25/20 04/29/21 allopurinoL [Zyloprim] 200 mg PO HS 01/25/20 04/29/21 Tolterodine Tartrate [Tolterodine 4 mg PO DAILY 04/29/21 04/29/21 Tartrate ER] guaiFENesin-DM 100-10MG/5ML 10 ml PO BID PRN 04/29/21 04/29/21 [Robitussin DM] Previous Rx's Medication Instructions Recorded Furosemide [Lasix] 20 mg PO DAILY #30 tab 02/03/20 Albuterol Inhaler [Ventolin Hfa 2 puff INHALATION RT-QID #18 gm 04/29/21 Inhaler] Amoxicillin/Potassium Clav 1 tab PO Q12HR 2 Days #4 tab 05/07/21 [Augmentin 500-125 Tablet] Budesonide [Pulmicort] 1 mg INHALATION RT-BID ml 05/07/21 Fluconazole [Diflucan] 100 mg PO DAILY #5 tab 05/07/21 INSULIN ASPART (NovoLOG) [NovoLOG 0 unit SQ ACHS ml 05/07/21 (formulary)] Ipratropium-Albuterol Nebulize 3 ml INHALATION RT-QID ml 05/07/21 [Duoneb 0.5 mg-3 mg/3 ml Soln] Melatonin 6 mg PO HS tablet 05/07/21 Pioglitazone [Actos] 15 mg PO DAILY #30 tab 05/07/21 predniSONE [Deltasone] 40 mg PO DAILY #10 tab 05/07/21 Allergies Allergy/AdvReac Type Severity Reaction Status Date / Time No Known Allergies Allergy Verified 05/13/21 05:58 Review of Systems ROS Statement: Those systems with pertinent positive or pertinent negative responses have been documented in the HPI. ROS Other: All systems not noted in ROS Statement are negative. Past Medical History Past Medical History: Atrial Fibrillation, Cancer, COPD, Diabetes Mellitus, Eye Disorder, Hearing Disorder / Deafness, Hypertension, Pneumonia, Prostate Disorder, Renal Disease Additional Past Medical History / Comment(s): Pt recently admitted to [facility] on 01/25/20 with a mechanical fall/hematoma R buttock and acute blood loss anemia. Other hx: 2010 Brain cancer with surgery and radiation, L nephrectomy d/t deteriorating kidney, CKD stage III, BPH, chronic thrombocytopenia, chronic anemia, diet controlled diabetes, generalized arthritis, L2 compression fracture, blind R eye, [place] blaterally, seasonal allergies History of Any Multi-Drug Resistant Organisms: None Reported Additional Past Surgical History / Comment(s): L nephrectomy, brain tumor removal, bilateral cataract removals, colonoscopy. Past Anesthesia/Blood Transfusion Reactions: No Reported Reaction Additional Past Anesthesia/Blood Transfusion Reaction / Comment(s): Pt has received blood in past without reaction. Past Psychological History: Depression Smoking Status: Never smoker Past Alcohol Use History: None Reported Past Drug Use History: None Reported - Past Family History Father Family Medical History: No Reported History Additional Family Medical History / Comment(s): Father was healthy. He at the age of 62yrs in a MVA. Mother Additional Family Medical History / Comment(s): Mother at the age of 86yrs of "heart problems." Brother(s) Additional Family Medical History / Comment(s): Patient has 3 brothers and one is passed from old age. Patient has 4 sisters with no major medical problems. Patient had 2 children one from muscular dystrophy and one is alive with no major medical problems. General Exam Limitations: no limitations General appearance: alert, in no apparent distress Head exam: Present: atraumatic Eye exam: Present: normal appearance, PERRL, EOMI. Absent: scleral icterus, conjunctival injection ENT exam: Present: normal exam, mucous membranes moist Neck exam: Present: normal inspection, full ROM. Absent: tenderness Respiratory exam: Present: normal lung sounds bilaterally. Absent: respiratory distress, wheezes Cardiovascular Exam: Present: regular rate, irregular rhythm, normal heart sounds GI/Abdominal exam: Present: soft, tenderness (Mild generalized abdominal tenderness without guarding or rebound.), normal bowel sounds. Absent: distended, guarding, rebound Neurological exam: Present: alert Course Vital Signs 05/13/21 05/13/21 05/13/21 05:58 06:10 07:34 Temperature 97.3 F L Pulse Rate 88 89 81 Respiratory 16 16 16 Rate Blood Pressure 128/88 116/77 117/78 O2 Sat by Pulse 95 99 95 Oximetry EKG Findings - EKG Comments: EKG Findings:: Afib, vent rate 81, QRS duration 80, QTc 418 Medical Decision Making - Medical Decision Making Vital are stable. Patient is well-appearing. Patient comes in for syncopal episode while getting up today at a residential. Patient does have some abdominal tenderness and some ecchymosis overlying the right lower abdomen. I do not see anticoagulation in the patient's recent medications. Laboratory evaluation was obtained. Laboratory evaluation revealed a white blood cell count 21.5. It is noted the patient was discharged home 6 days ago for pneumonia on 40 mg of steroids daily which could be related. Mild anemia as well seems to be decreasing. 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 Chest x-ray reveals small patchy notices or infiltrate at the right lung base. I did compare this to previous chest x-ray and is maybe a small amount worse than previous chest x-ray. Patient started on Rocephin pending urinalysis. CT abdomen and pelvis reveals a large anterior pelvic hematoma with a combination of intramuscular hematoma involving the left greater than right rectus abdominis and extraperitoneal extension pushing on the bladder. Measures up to 16 x 8 x 13 cm. There is some additional extraperitoneal hemorrhage fluid that tracks up the mid abdominal level. Patient has had anemia with hematoma before, likely related. Type and screen obtained. At this time patient will be admitted for further evaluation. Dr. Villarreal spoke with Dr. Elam, accepts the admission. We will consult Dr. Dixon as he is on-call for surgery. He was admitted to medicine as he is being admitted for evaluation of syncopal episode however does have some traumatic injuries as noted. - Lab Data Result diagrams: 05/13/21 06:25 05/13/21 06:25 Lab Results 05/13/21 05/13/21 05/13/21 Range/Units 06:18 06:25 06:25 WBC 21.5 H (3.8-10.6) k/uL RBC 2.76 L (4.30-5.90) m/uL Hgb 8.6 L D (13.0-17.5) gm/dL Hct 26.4 L (39.0-53.0) % MCV 95.9 (80.0-100.0) fL MCH 31.4 (25.0-35.0) pg MCHC 32.7 (31.0-37.0) g/dL RDW 17.4 H (11.5-15.5) % Plt Count 106 L D (150-450) k/uL MPV 13.9 Neutrophils % 85 % Lymphocytes % 10 % Monocytes % 4 % Eosinophils % 0 % Basophils % 0 % Neutrophils # 18.2 H (1.3-7.7) k/uL Lymphocytes # 2.2 (1.0-4.8) k/uL Monocytes # 0.8 (0-1.0) k/uL Eosinophils # 0.0 (0-0.7) k/uL Basophils # 0.1 (0-0.2) k/uL Manual Slide Review Performed Poikilocytosis (manual Present Anisocytosis Slight Fragmented RBCs Present PT 12.1 H (9.0-12.0) sec INR 1.2 H (<1.2) APTT 23.8 (22.0-30.0) sec Sodium (137-145) mmol/L Potassium (3.5-5.1) mmol/L Chloride (98-107) mmol/L Carbon Dioxide (22-30) mmol/L Anion Gap mmol/L BUN (9-20) mg/dL Creatinine (0.66-1.25) mg/dL Est GFR (CKD-EPI)AfAm (>60 ml/min/1.73 sqM) Est GFR (CKD-EPI)NonAf (>60 ml/min/1.73 sqM) Glucose (74-99) mg/dL POC Glucose (mg/dL) 220 H (75-99) mg/dL POC Glu [employer] Nic Jean Calcium (8.4-10.2) mg/dL Magnesium (1.6-2.3) mg/dL Total Bilirubin (0.2-1.3) mg/dL AST (17-59) U/L ALT (4-49) U/L Alkaline Phosphatase (38-126) U/L Troponin I (0.000-0.034) ng/mL Total Protein (6.3-8.2) g/dL Albumin (3.5-5.0) g/dL Stool Occult Blood (Negative) 05/13/21 05/13/21 05/13/21 Range/Units 06:25 06:25 08:17 WBC (3.8-10.6) k/uL RBC (4.30-5.90) m/uL Hgb (13.0-17.5) gm/dL Hct (39.0-53.0) % MCV (80.0-100.0) fL MCH (25.0-35.0) pg MCHC (31.0-37.0) g/dL RDW (11.5-15.5) % Plt Count (150-450) k/uL MPV Neutrophils % % Lymphocytes % % Monocytes % % Eosinophils % % Basophils % % Neutrophils # (1.3-7.7) k/uL Lymphocytes # (1.0-4.8) k/uL Monocytes # (0-1.0) k/uL Eosinophils # (0-0.7) k/uL Basophils # (0-0.2) k/uL Manual Slide Review Poikilocytosis (manual Anisocytosis Fragmented RBCs PT (9.0-12.0) sec INR (<1.2) APTT (22.0-30.0) sec Sodium 139 (137-145) mmol/L Potassium 4.1 (3.5-5.1) mmol/L Chloride 111 H (98-107) mmol/L Carbon Dioxide 22 (22-30) mmol/L Anion Gap 6 mmol/L BUN 51 H (9-20) mg/dL Creatinine 1.43 H (0.66-1.25) mg/dL Est GFR (CKD-EPI)AfAm 51 (>60 ml/min/1.73 sqM) Est GFR (CKD-EPI)NonAf 44 (>60 ml/min/1.73 sqM) Glucose 201 H (74-99) mg/dL POC Glucose (mg/dL) (75-99) mg/dL POC Glu [employer] Manager ID Calcium 8.0 L (8.4-10.2) mg/dL Magnesium 1.8 (1.6-2.3) mg/dL Total Bilirubin 0.7 (0.2-1.3) mg/dL AST 20 (17-59) U/L ALT 29 (4-49) U/L Alkaline Phosphatase 43 (38-126) U/L Troponin I <0.012 (0.000-0.034) ng/mL Total Protein 4.6 L (6.3-8.2) g/dL Albumin 2.5 L (3.5-5.0) g/dL Stool Occult Blood Negative (Negative) Disposition Clinical Impression: Anemia, Leukocytosis, Abdominal hematoma, Syncope, Weakness Disposition: ADMITTED IP TO THIS HOSP Referrals: Darvin Hurd DO [Primary Care Provider] - 1-2 days Time of Disposition: 08:59
[2021-05-13 06:53] LABS: Albumin 2.5 g/dL (3.5-5.0); Magnesium 1.8 mg/dL (1.6-2.3); Potassium 4.1 mmol/L (3.5-5.1); Total Bilirubin 0.7 mg/dL (0.2-1.3); Total Protein 4.6 g/dL (6.3-8.2)
[2021-05-13 07:11] LABS: INR 1.2 (<1.2); Partial Thromboplastin Time 23.8 sec (22.0-30.0); Prothrombin Time 12.1 sec (9.0-12.0)
[2021-05-13 07:20] LABS: Anisocytosis Slight; Basophils # (A) 0.1 k/uL (0-0.2); Basophils % (A) 0 %; Eosinophils % (A) 0 %; HCT 26.4 % (39.0-53.0); Lymphocytes # (A) 2.2 k/uL (1.0-4.8); Lymphocytes % (A) 10 %; MCH 31.4 pg (25.0-35.0); MCHC 32.7 g/dL (31.0-37.0); MCV 95.9 fL (80.0-100.0); Mean Platelet Volume 13.9; Monocytes # (A) 0.8 k/uL (0-1.0); Monocytes % (A) 4 %; Neutrophils # (A) 18.2 k/uL (1.3-7.7); Neutrophils % (A) 85 %; RBC 2.76 m/uL (4.30-5.90); RDW 17.4 % (11.5-15.5); WBC 21.5 k/uL (3.8-10.6)
[2021-05-13 07:21] LABS: HGB 8.6 gm/dL (13.0-17.5)
--- NOTE | 2021-05-13 07:24 | XR ---
EXAMINATION TYPE: XR chest 2V DATE OF EXAM: 05/13/2021 COMPARISON: 05/07/2021 HISTORY: 86-year-old male with syncope TECHNIQUE: Frontal and lateral views FINDINGS: Low lung volumes with crowded vascular markings. Heart borderline enlarged. Focal right basilar opaci ty persists. Mild interstitial prominence likely due to vascular crowding. Some posterior basilar pat vishnu opacity at the costophrenic angles noted. Improving aeration at the periphery of the left base. IMPRESSION: 1. Hypoventilatory changes. 2. Similar patchy atelectasis or infiltrate at the right base. Improving aeration at the left base.
[2021-05-13 07:56] LABS: Platelet Count 106 k/uL (150-450)
[2021-05-13 07:57] LABS: Poikilocytosis (M) Present
[2021-05-13 07:58] LABS: RBC Fragments Present
--- NOTE | 2021-05-13 07:58 | CT ---
EXAMINATION TYPE: CT brain agustin wo con DATE OF EXAM: 05/13/2021 COMPARISON: 04/29/2021, 05/25/2019, 12/27/2020 HISTORY: 86-year-old male fall after Syncope CT DLP: 1513.9 mGycm Automated exposure control for dose reduction was used. Technique: Examination of the head was done in axial plane without intravenous contrast. Coronal and sagittal reconstructions performed. CT of the cervical spine was obtained in axial plane without intravenous injection of contrast mater ial. Coronal and sagittal reformatted images were obtained from the axial views for evaluation of f ractures, spinal alignment and canal. FINDINGS: Head: Redemonstrated right frontal craniotomy flap with underlying encephalomalacia which extends to the an terior horn of the right lateral ventricle. There is some focal hyperdensity in the region of the fro ntal horn of the right lateral ventricle which remains unchanged back to 05/25/2016 suggesting possibl e chronic calcifications or choroid plexus. Extensive atherosclerotic calcifications within the carotid siphons. Mild generalized supratentorial volume loss. Confluent white matter hypodensity frontal horn left lat eral ventricle remains unchanged. Otherwise, there is no evidence of acute intracranial hemorrhage, acute ischemic changes, mass, mass -effect, or extra-axial fluid collection. There is no effacement of cerebral sulci or basal subarach noid cisterns. There is no hydrocephalus. There is no midline shift. Parham-white matter distinction is preserved. Lobulated polyps or mucosal retention cysts along the floor of the right maxillary sinus. Otherwise, paranasal sinuses and mastoid air cells are well pneumatized. Cervical spine: No craniocervical junction abnormality, predental space widening, or prevertebral soft tissue swellin g. Multilevel hypertrophic facet and uncovertebral joint arthropathy is present. Moderate multilevel degenerative disc disease. Disc osteophyte complex causes at least a moderate spinal canal stenosis at C6-C7. Thickened transverse ligament at the C1 level causes mild narrowing of the spinal canal. Degenerative grade 1 anterolisthesis C7-T1. There is no acute fracture identified of the cervical spine. Variable moderate bilateral neuroforaminal stenoses throughout, moderate to severe on both sides at C 3-C4, on the left at C4-C5, on the right at C5-C6, and on the right at C6-C7. Sagittal and coronal reformatted images confirm above findings. COMBINED IMPRESSION: 1. Redemonstrated right frontal craniotomy flap with underlying encephalomalacia. Focal hyperdensity at the frontal horn of the right lateral ventricle remains unchanged back to 05/25/2019 suggesting yesi e parenchymal calcification or choroid plexus. Encephalomalacia adjacent to the left lateral ventricl e also remains unchanged. No acute intracranial abnormality seen. 2. Moderate to advanced multilevel spondylotic change. Degenerative grade 1 anterolisthesis C7-T1. No acute fracture of the cervical spine.
--- NOTE | 2021-05-13 08:11 | CT ---
EXAMINATION TYPE: CT abdomen pelvis wo con DATE OF EXAM: 05/13/2021 COMPARISON: 12/27/2020 HISTORY: 86-year-old male Pain CT DLP: 1009.4 mGycm. Automated exposure control for dose reduction was used. TECHNIQUE: Contiguous axial scanning of the abdomen and pelvis without IV contrast. Coronal and sagit ruchi reconstructions performed. FINDINGS: Heart is borderline enlarged without pericardial effusion. Prominent dependent atelectasis in the low er lungs with bands of opacity, probably atelectasis. Continued asymmetric elevation right hemidiaphragm. Prominent streak and beam hardening artifact over the upper abdomen due to patient's arms down by his side limiting the assessment. Allowing for these artifacts and lack of contrast, liver, gallbladder, right adrenal gland, and atrop hic pancreas show no gross abnormality. Spleen upper limits of normal in size at 13.2 cm. Peripherally calcified splenic artery aneurysm anthony uring 1.4 cm is unchanged. Small 1.3 cm hypodense nodule left adrenal gland is unchanged with density suggesting a benign lipid rich adrenal adenoma. Left kidney is surgically absent. Right kidney within normal limits. New mild right-sided perihepatic ascites and trace left perisplenic ascites No dilated small bowel or free air. Scattered mild to moderate stool. Sigmoid diverticulosis. No roula colonic inflammatory change. Mild circumferential bladder wall thickening. There is large amount of anterior pelvic hematoma. This is combination of intramuscular expanding the left greater than right rectus abdominous and also extraperitoneal pushing the bladder posteriorly. This measures 16.1 cm wide by 8.3 cm AP by 13.4 cm greater caudal (refer to axial images 74 and 75 an d sagittal image 80. Additional extraperitoneal hemorrhagic fluid appears to extend up along the retr operitoneum to the midlung level. There appears to be a left lateral flank abdominal wall muscle defect. Some focal opacity collects he re as well measuring 3.8 x 3.3 cm. Prominent presacral edema and additional hemorrhagic fluid extending along the bilateral obturator ch ains. Bones: Moderate degenerative change at both hips. Degenerative change right greater than left SI join t. Vascular disease as well as multilevel moderate to advanced disc/endplate degenerative change and hyp ertrophic facet arthropathy. Grade 1 anterolisthesis L4-L5. IMPRESSION: 1. Large anterior pelvic hematoma, combination of intramuscular hematoma involving the left greater than right rectus abdominis and also with contiguous extraperitoneal extension of hematoma pushing th e bladder posteriorly. Hematoma measures up to 16.1 x 8.3 x 13.4 cm. 2. Some additional extraperitoneal hemorrhagic fluid tracks up the mid abdominal level. 3. There appears to be a left lateral flank abdominal wall muscle defect probably relating to patien t's prior left nephrectomy. Some focal opacity collects here as well measuring 3.8 cm, probably some pooling retroperitoneal hemorrhagic fluid. Correlate as to the reason for patient's nephrectomy. 3 mo nth follow-up CT to exclude underlying neoplasm if nephrectomy was performed for renal cell carcinoma . 4. Mild perihepatic ascites and trace perisplenic ascites.
[2021-05-13] MEDS ORDERED: cefTRIAXone IN SWFI 1,000 MG/10 ML SYRINGE IVP STA (08:29)
[2021-05-13 09:37] LABS: Appearance,Urine Clear (Clear); Bacteria,Urine Rare /hpf; Bilirubin,Urine Negative (Negative); Blood,Urine Small (Negative); Color,Urine Yellow; Glucose,Urine (UA) Trace (Negative); Ketones,Urine Negative (Negative); Leukocyte Esterase,Urine Negative (Negative); Mucus,Urine Rare /hpf; Nitrite,Urine Negative (Negative); Protein,Urine Negative (Negative); RBC,Urine 6 /hpf (0-5); Specific Gravity,Urine 1.016 (1.001-1.035); Squamous Epithelial Cell,Urine <1 /hpf (0-4); Urobilinogen,Urine <2.0 mg/dL (<2.0); WBC,Urine 1 /hpf (0-5)
[2021-05-13] MEDS ORDERED: guaiFENesin-DM 100-10MG/5ML 10 ML CUP PO PRN (11:45)
--- NOTE | 2021-05-13 12:05 | P.HPIM ---
History of Present Illness H&P Date: 05/13/21 HISTORY OF PRESENT ILLNESS This is a pleasant 86-year-old gentleman, with known history of atrial fibrillation, COPD, cancer, diabetes mellitus, deafness, recurrent pneumonia, BPH, CKD, admitted to emergency room secondary to cough and shortness of breath. Was diagnosed with aspiration pneumonia and was treated for gram-negative pneumonia. Patient wasn't hospital 05/07/20 and was discharged to [facility] for rehab. Patient apparently had a syncopal episode today according to his nurse in snf he get up from his bed this morning and had syncopal episode fell on the floor did not have any seizure activity patient also is complaining of abdominal pain started since last night without any nausea or vomiting no chest pain he continued to complain of mild shortness of breath on and off and mild cough. Continued to have significant problem with short-term memory. Was transferred by EMS to the emergency department his white blood cell was 21.5 significantly higher than last time patient remain on steroid also his hemoglobin is down to 8.6 which baseline used to be around 10.5 his creatinine is is up with GFR down to 44 compared to his baseline as well. His Hemoccult was negative troponin is negative his EKG showed A. fib with RVR. Found large hematoma and ecchymosis in the right lower quadrant area CT of the abdomen and pelvis revealed large anterior pelvic hematoma with combination of intramuscular hematoma involving The left greater than the right rectus abdominis and extraperitoneal extension pushing on the bladder the whole area measures 27232 cm there is some additional extraperitoneal hemorrhage. With a hemoglobin dropped down over 2 g patient will be admitted consult trauma surgery as well not a clear whether patient had any trauma or this is just happen from the fall early this morning. REVIEW OF SYSTEMS Constitutional: No fever, no chills, no night sweats. No weight change. Re ported weakness, reported fatigue. No daytime sleepiness. EENT: No headache. No blurred vision or double vision, no loss of vision. Chronic hearing loss, no dizziness. No nasal drainage or congestion. No epistaxis. No sore throat. Lungs: Reported shortness of breath, noted cough, noted sputum production. Denies wheezing. Cardiovascular: No chest pain, no lower extremity edema. No palpitations. No paroxysmal nocturnal dyspnea. No orthopnea. No lightheadedness or dizziness. No syncopal episodes. Abdominal: No abdominal pain. No nausea, vomiting. No diarrhea. No constipation. No bloody or tarry stools.. No loss of appetite. Genitourinary: No dysuria, increased frequency, urgency. No urinary retention. Musculoskeletal: No myalgias. No muscle weakness, no gait dysfunction, no frequent falls. No back pain. No neck pain. Integumentary: No wounds, no lesions. No rash or pruritus. No unusual bruising. No change in hair or nails. Neurologic: No aphasia. No facial droop. Noted change in mentation. Poor short-term memory. No head injury. No headache. No paralysis. No paresthesia. Psychiatric: No depression. No anxiety. No mood swings. Endocrine: Noted abnormal blood sugars, hypoglycemic in the morning. No weight change. Social history: Patient smoked for long time he quit in 1977, no alcohol abuse, he was still living with his until his hospitalization a week ago when patient was transferred to the snf at the time. Family history: His father from motor vehicle accident is a 62, other from heart disease at 86, patient had 3 brother one of them of old age for sister with no major medical problem. Patient had 2 children one had muscular dystrophy other one is living and well. PHYSICAL EXAMINATION Gen: This is this is an 86-year-old male. He is resting in recliner appears to be comfortable at rest. HEENT: Head is atraumatic, normocephalic. Pupils equal, round. Sclerae is anicteric. NECK: Supple. No JVD. No lymphadenopathy. No thyromegaly. LUNGS: Decreased breath sound bilaterally specially the right side positive for rhonchi and no crackles slight and exhalation wheezes. HEART: Irregular rhythm and rate soreness to positive S3 positive be ABDOMEN: Soft. Bowel sounds are present. No masses. No tenderness. EXTREMITIES: No pedal edema. No calf tenderness. Dorsalis pedis is palpable bilaterally. NEUROLOGICAL: Patient is awake, alert and oriented x3. Cranial nerves 2 through 12 are grossly intact. ASSESSMENT AND PLAN 1. 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 2 large retroperitoneal hematoma: Consult trauma surgery, might need another CAT scan in the next 48 hours in the meanwhile keep watching for any significant drop in hemoglobin might be consistent with a large hematoma. 3 aspiration pneumonia was treated last week and remain on antibiotics along with steroid patient remain on DuoNeb and Pulmicort as well. 2. COPD, with exacerbation with albuterol, Atrovent and budesonide still on steroid we will decrease prednisone down to 20 mg a day. 3. Acute blood loss anemia: Most likely from hematoma continue supportive care time and cross will be done and transfuse if hemoglobin is dropped below 8. 4. Chronic atrial fibrillation, for which his doctor has discontinued anticoa gulation, unknown cause the unknown history whether he had an intervention or not. 5. Diabetes mellitus 2 continue Accu-Chek with sliding scales coverage along with pioglitazone. 6. Acute kidney injury: Most likely ATN from hypotension and hypoperfusion, hydration repeat CMP in the next 24 hours. 7. BPH without LUTS we watch for any urinary retention, 8. Mild depression: Patient has been on Zoloft 50 mg a day. 9. Chronic gout on allopurinol 100 mg d 10 GI prophylaxis: Start patient on Pepcid 20 mg twice a day. 11 DVT prophylaxis: Early mobilization along with knee-high JARRET hose with his current bleed is not a candidate for any anticoagulation at this point. CODE STATUS: Full code. Admit patient to the inpatient service for more than 2 night stay. Past Medical History Past Medical History: Atrial Fibrillation, Cancer, COPD, Diabetes Mellitus, Eye Disorder, Hearing Disorder / Deafness, Hypertension, Pneumonia, Prostate Disorder, Renal Disease Additional Past Medical History / Comment(s): Pt recently admitted to [facility] on 01/25/20 with a mechanical fall/hematoma R buttock and acute blood loss anemia. Other hx: 2010 Brain cancer with surgery and radiation, L nephrectomy d/t deteriorating kidney, CKD stage III, BPH, chronic thrombocytopenia, chronic anemia, diet controlled diabetes, generalized arthritis, L2 compression fracture, blind R eye, [place] blaterally, seasonal allergies History of Any Multi-Drug Resistant Organisms: None Reported Additional Past Surgical History / Comment(s): L nephrectomy, brain tumor removal, bilateral cataract removals, colonoscopy. Past Anesthesia/Blood Transfusion Reactions: No Reported Reaction Additional Past Anesthesia/Blood Transfusion Reaction / Comment(s): Pt has received blood in past without reaction. Past Psychological History: Depression Smoking Status: Never smoker Past Alcohol Use History: None Reported Past Drug Use History: None Reported - Past Family History Father Family Medical History: No Reported History Additional Family Medical History / Comment(s): Father was healthy. He at the age of 62yrs in a MVA. Mother Additional Family Medical History / Comment(s): Mother at the age of 86yrs of "heart problems." Brother(s) Additional Family Medical History / Comment(s): Patient has 3 brothers and one is passed from old age. Patient has 4 sisters with no major medical problems. Patient had 2 children one from muscular dystrophy and one is alive with no major medical problems. Medications and Allergies Home Medications Medication Instructions Recorded Confirmed Type Ferrous Sulfate [Feosol] 325 mg PO BID@0800,1800 03/25/14 05/13/21 History Multivitamins, Thera [Multivitamin 1 tab PO DAILY@0800 03/25/14 05/13/21 History (formulary)] Ascorbic Acid [Vitamin C] 500 mg PO DAILY@0800 11/21/16 05/13/21 History Sertraline [Zoloft] 50 mg PO HS 01/25/20 05/13/21 History allopurinoL [Zyloprim] 200 mg PO HS 01/25/20 05/13/21 History guaiFENesin-DM 100-10MG/5ML 10 ml PO BID PRN 04/29/21 05/13/21 History [Robitussin DM] Albuterol Inhaler [Ventolin Hfa 2 puff INHALATION 05/13/21 05/13/21 History Inhaler] RT-QID@05,11,17,23 Amoxicillin 500 mg PO BID@0800,1800 05/13/21 05/13/21 History Budesonide [Pulmicort] 1 mg INHALATION RT-BID@0800,1800 05/13/21 05/13/21 History Furosemide [Lasix] 20 mg PO DAILY@0800 05/13/21 05/13/21 History Ipratropium-Albuterol Nebulize 3 ml INHALATION RT-QID@08,12,18,20 05/13/21 05/13/21 History [Duoneb 0.5 mg-3 mg/3 ml Soln] Melatonin 10 mg PO HS 05/13/21 05/13/21 History Oxybutynin Chloride [Oxybutynin 10 mg PO DAILY 05/13/21 05/13/21 History Chloride ER] Pioglitazone [Actos] 15 mg PO DAILY@0800 05/13/21 05/13/21 History predniSONE [Deltasone] 40 mg PO DAILY@0800 05/13/21 05/13/21 History Allergies Allergy/AdvReac Type Severity Reaction Status Date / Time No Known Allergies Allergy Verified 05/13/21 09:01 Physical Exam Vitals: Vital Signs Temp Pulse Resp BP Pulse Ox 05/13/21 07:34 81 16 117/78 95 05/13/21 06:10 89 16 116/77 99 05/13/21 05:58 97.3 F L 88 16 128/88 95 Intake and Output 05/12/21 05/13/21 05/13/21 22:59 06:59 14:59 Other: Voiding Method Diaper Weight 95.254 kg Results CBC & Chem 7: 05/13/21 06:25 05/13/21 06:25 Labs: Abnormal Lab Results - Last 24 Hours (Table) 05/13/21 05/13/21 05/13/21 Range/Units 06:18 06:25 06:25 WBC 21.5 H (3.8-10.6) k/uL RBC 2.76 L (4.30-5.90) m/uL Hgb 8.6 L D (13.0-17.5) gm/dL Hct 26.4 L (39.0-53.0) % RDW 17.4 H (11.5-15.5) % Plt Count 106 L D (150-450) k/uL Neutrophils # 18.2 H (1.3-7.7) k/uL PT 12.1 H (9.0-12.0) sec INR 1.2 H (<1.2) Chloride (98-107) mmol/L BUN (9-20) mg/dL Creatinine (0.66-1.25) mg/dL Glucose (74-99) mg/dL POC Glucose (mg/dL) 220 H (75-99) mg/dL Calcium (8.4-10.2) mg/dL Total Protein (6.3-8.2) g/dL Albumin (3.5-5.0) g/dL 05/13/21 Range/Units 06:25 WBC (3.8-10.6) k/uL RBC (4.30-5.90) m/uL Hgb (13.0-17.5) gm/dL Hct (39.0-53.0) % RDW (11.5-15.5) % Plt Count (150-450) k/uL Neutrophils # (1.3-7.7) k/uL PT (9.0-12.0) sec INR (<1.2) Chloride 111 H (98-107) mmol/L BUN 51 H (9-20) mg/dL Creatinine 1.43 H (0.66-1.25) mg/dL Glucose 201 H (74-99) mg/dL POC Glucose (mg/dL) (75-99) mg/dL Calcium 8.0 L (8.4-10.2) mg/dL Total Protein 4.6 L (6.3-8.2) g/dL Albumin 2.5 L (3.5-5.0) g/dL
[2021-05-13] MEDS: IPRATROPIUM-ALBUTEROL 3 ML NEB INHALATION SCH ×2 (13:51→19:55)
[2021-05-13 14:17] LABS: Glucose,Whole Blood 177 mg/dL (75-99)
[2021-05-13] MEDS: INSULIN ASPART (NovoLOG) 100 UNIT/ML VIAL SQ SCH ×3 (14:17→20:49)
[2021-05-13 14:24] LABS: Anisocytosis Slight; Basophils # (A) 0.1 k/uL (0-0.2); Basophils % (A) 0 %; Eosinophils % (A) 0 %; HCT 26.3 % (39.0-53.0); HGB 8.2 gm/dL (13.0-17.5); Lymphocytes # (A) 1.7 k/uL (1.0-4.8); Lymphocytes % (A) 10 %; MCH 30.7 pg (25.0-35.0); MCHC 31.3 g/dL (31.0-37.0); MCV 98.2 fL (80.0-100.0); Macrocytosis Slight; Mean Platelet Volume 14.2; Monocytes # (A) 0.6 k/uL (0-1.0); Monocytes % (A) 4 %; Neutrophils # (A) 15.3 k/uL (1.3-7.7); Neutrophils % (A) 86 %; RBC 2.68 m/uL (4.30-5.90); RDW 17.2 % (11.5-15.5); WBC 17.9 k/uL (3.8-10.6)
[2021-05-13 14:34] LABS: Ovalocytes Present; Platelet Count 90 k/uL (150-450)
[2021-05-13] MEDS: ALBUTEROL NEBULIZED 2.5 MG/3 ML INHALATION SCH (15:23)
[2021-05-13 17:01] LABS: Glucose,Whole Blood 167 mg/dL (75-99)
[2021-05-13] MEDS: AMOXICILLIN 500 MG CAP PO SCH (17:06)
[2021-05-13] MEDS: BUDESONIDE 1 MG/2 ML NEBU INHALATION SCH (19:56)
[2021-05-13 20:17] LABS: Anisocytosis Slight; HCT 24.4 % (39.0-53.0); HGB 7.7 gm/dL (13.0-17.5); Hypochromasia Slight; MCH 31.6 pg (25.0-35.0); MCHC 31.5 g/dL (31.0-37.0); MCV 100.3 fL (80.0-100.0); Macrocytosis Slight; Mean Platelet Volume 13.6; RBC 2.43 m/uL (4.30-5.90); RDW 16.8 % (11.5-15.5); WBC 16.1 k/uL (3.8-10.6)
[2021-05-13 20:19] LABS: Platelet Count 64 k/uL (150-450)
[2021-05-13] MEDS: FERROUS SULFATE 325 MG TAB PO SCH (20:42)
[2021-05-13] MEDS: MELATONIN 5 MG TABLET PO SCH (20:42)
[2021-05-13] MEDS: allopurinoL 100 MG TAB PO SCH (20:43)
[2021-05-13] MEDS: SERTRALINE 50 MG TAB PO SCH (20:44)
[2021-05-13 20:49] LABS: Glucose,Whole Blood 172 mg/dL (75-99)
[2021-05-14] MEDS: IPRATROPIUM-ALBUTEROL 3 ML NEB INHALATION SCH ×5 (00:16→20:30)
[2021-05-14] MEDS: ALBUTEROL NEBULIZED 2.5 MG/3 ML INHALATION SCH (00:16)
[2021-05-14 02:22] LABS: Anisocytosis Slight; HCT 23.1 % (39.0-53.0); HGB 7.2 gm/dL (13.0-17.5); Hypochromasia Slight; MCH 31.1 pg (25.0-35.0); MCHC 31.1 g/dL (31.0-37.0); MCV 100.1 fL (80.0-100.0); Macrocytosis Slight; Mean Platelet Volume 12.8; RBC 2.31 m/uL (4.30-5.90); RDW 16.9 % (11.5-15.5); WBC 12.7 k/uL (3.8-10.6)
[2021-05-14 02:26] LABS: Platelet Count 65 k/uL (150-450)
[2021-05-14 02:29] LABS: Albumin 2.6 g/dL (3.5-5.0); Potassium 4.4 mmol/L (3.5-5.1); Total Bilirubin 0.8 mg/dL (0.2-1.3); Total Protein 4.6 g/dL (6.3-8.2)
[2021-05-14] MEDS: INSULIN ASPART (NovoLOG) 100 UNIT/ML VIAL SQ SCH ×4 (06:23→21:12)
[2021-05-14 06:36] LABS: Glucose,Whole Blood 140 mg/dL (75-99)
[2021-05-14] MEDS: BUDESONIDE 1 MG/2 ML NEBU INHALATION SCH ×2 (07:43→17:17)
[2021-05-14 09:06] LABS: Anisocytosis Slight; HCT 22.4 % (39.0-53.0); HGB 7.3 gm/dL (13.0-17.5); MCH 31.7 pg (25.0-35.0); MCHC 32.5 g/dL (31.0-37.0); MCV 97.6 fL (80.0-100.0); Macrocytosis Slight; Mean Platelet Volume 14.5; RDW 17.2 % (11.5-15.5); WBC 11.3 k/uL (3.8-10.6)
[2021-05-14] MEDS: AMOXICILLIN 500 MG CAP PO SCH ×2 (09:40→17:21)
[2021-05-14 09:41] LABS: Platelet Count 74 k/uL (150-450)
[2021-05-14] MEDS: PIOGLITAZONE 15 MG TAB PO SCH (09:41)
[2021-05-14] MEDS: ASCORBIC ACID 500 MG TAB PO SCH (09:41)
[2021-05-14] MEDS: FAMOTIDINE 20 MG TAB PO SCH (09:41)
[2021-05-14] MEDS: FERROUS SULFATE 325 MG TAB PO SCH ×2 (09:41→17:21)
[2021-05-14] MEDS: predniSONE 10 MG TAB PO SCH (09:41)
[2021-05-14] MEDS: MULTIVITAMINS, THERA 1 EACH TAB PO SCH (09:41)
[2021-05-14] MEDS: FUROSEMIDE 20 MG TAB PO SCH (09:41)
[2021-05-14] MEDS: OXYBUTYNIN 10 MG TAB.ER.24 PO SCH (09:42)
--- NOTE | 2021-05-14 10:52 | P.CRDCN ---
History of Present Illness History of present illness: HISTORY OF PRESENTING ILLNESS This is a pleasant 86-year-old male past medical history significant for chronic persistent atrial fibrillation on long-term anticoagulation secondary to GI bleeding, COPD, diabetes mellitus, hypertension history of brain tumor status post surgical removal and radiation, left nephrectomy, chronic kidney disease and poor functional capacity. He follows in the office with Dr. Mills. We have been asked to see in consultation for syncope. He presented to the hospital from rehab secondary to fall. The patient is somewhat confused regarding the events surrounding this however he just states that he remembers falling. He does not recall having any significant dizziness prior to falling. He denies loss of consciousness. He denies chest pain, dizziness or palpitations. EKG on arrival reveals atrial fibrillation with controlled ventricular rate with no significant ST or T-wave abnormalities. Telemetry tracings reveal persistent atrial fibrillation with variable ventricular rates. Chest x-ray reveals patchy atelectasis. CT of the abdomen and pelvis reveals a large anterior pelvic hematoma combination of intramuscular hematoma involving the left greater than right rectus abdominis and also with contiguous extraperitoneal extension of the hematoma pushing the bladder posteriorly measuring 16.18.313.4 cm. Some additional extraperitoneal hemorrhagic fluid tracks up the mid abdominal level. Left lateral flank abdominal wall muscle defect probably related to patient's prior left nephrectomy and mild perihepatic ascites noted. Laboratory data reviewed, WBC 11.3, hemoglobin 7.3, platelets 74, sodium 139, potassium 4.4, creatinine 1.5 and cardiac enzymes negative 3. Current daily cardiac medications include Lasix 20 mg daily. REVIEW OF SYSTEMS At the time of my exam: CONSTITUTIONAL: Denies fever or chills. CARDIOVASCULAR: Denies chest pain, shortness of breath, orthopnea, PND or palpitations. RESPIRATORY: Denies cough. GASTROINTESTINAL: Denies abdominal pain, diarrhea, constipation, nausea or vomiting. MUSCULOSKELETAL: Denies myalgias. NEUROLOGIC: Denies numbness, tingling, headache or weakness. ENDOCRINE: Denies fatigue, weight change, polydipsia or polyurina. GENITOURINARY: Denies burning, hematuria or urgency with micturation. HEMATOLOGIC: Denies history of anemia or bleeding. PHYSICAL EXAMINATION Blood pressure 116/67 heart rate 103 afebrile and maintaining oxygen saturation on room air. CONSTITUTIONAL: No apparent distress. HEENT: Head is normocephalic. Pupils are equal, round. Sclerae anicteric. Mucous membranes of the mouth are moist. No JVD. No carotid bruit. CHEST EXAMINATION: Lungs are clear to auscultation. No chest wall tenderness is noted on palpation or with deep breathing. HEART EXAMINATION: Irregular rate and rhythm. S1, S2 heard. No murmurs, gallops or rub. ABDOMEN: Soft, nontender. EXTREMITIES: 2+ peripheral pulses, no lower extremity edema and no calf tenderness. NEUROLOGIC EXAMINATION: Patient is awake, alert and oriented x3. ASSESSMENT Fall, unclear etiology. 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 The patient denies loss of consciousness. Events surrounding the fall are unknown. Obtain 2-D echocardiogram and Doppler study to assess cardiac structure and function. Ongoing telemetry monitoring. Check for orthostatic changes. Further recommendations to follow based on clinical course. Thank you kindly for this consultation. Nurse Practitioner note has been reviewed, I agree with a documented findings and plan of care. Patient was seen and examined. Past Medical History Past Medical History: Atrial Fibrillation, Cancer, COPD, Diabetes Mellitus, Eye Disorder, Hearing Disorder / Deafness, Hypertension, Pneumonia, Prostate Disorder, Renal Disease Additional Past Medical History / Comment(s): Pt recently admitted to [facility] on 01/25/20 with a mechanical fall/hematoma R buttock and acute blood loss anemia. Other hx: 2010 Brain cancer with surgery and radiation, L nephrectomy d/t deteriorating kidney, CKD stage III, BPH, chronic thrombocytopenia, chronic anemia, diet controlled diabetes, generalized arthritis, L2 compression fracture, blind R eye, [place] blaterally, seasonal allergies. 05/14/21 admitted with abdominal hematoma History of Any Multi-Drug Resistant Organisms: None Reported Additional Past Surgical History / Comment(s): L nephrectomy, brain tumor removal, bilateral cataract removals, colonoscopy. Past Anesthesia/Blood Transfusion Reactions: No Reported Reaction Additional Past Anesthesia/Blood Transfusion Reaction / Comment(s): Pt has received blood in past without reaction. Past Psychological History: Depression Additional Psychological History / Comment(s): Pt resides with his spouse. He is independent. He uses a crutch to ambulate. He states he is not receiving any home care. Smoking Status: Former smoker Past Alcohol Use History: None Reported Additional Past Alcohol Use History / Comment(s): Pt cannot recall when he started smoking, stating he smoked on and off for years but he quit smoking in 1977. Past Drug Use History: None Reported - Past Family History Father Family Medical History: No Reported History Additional Family Medical History / Comment(s): Father was healthy. He at the age of 62yrs in a MVA. Mother Additional Family Medical History / Comment(s): Mother at the age of 86yrs of "heart problems." Brother(s) Additional Family Medical History / Comment(s): Patient has 3 brothers and one i s passed from old age. Patient has 4 sisters with no major medical problems. Patient had 2 children one from muscular dystrophy and one is alive with no major medical problems. Medications and Allergies Home Medications Medication Instructions Recorded Confirmed Type Ferrous Sulfate [Feosol] 325 mg PO BID@0800,1800 03/25/14 05/13/21 History Multivitamins, Thera [Multivitamin 1 tab PO DAILY@0800 03/25/14 05/13/21 History (formulary)] Ascorbic Acid [Vitamin C] 500 mg PO DAILY@0800 11/21/16 05/13/21 History Sertraline [Zoloft] 50 mg PO HS 01/25/20 05/13/21 History allopurinoL [Zyloprim] 200 mg PO HS 01/25/20 05/13/21 History guaiFENesin-DM 100-10MG/5ML 10 ml PO BID PRN 04/29/21 05/13/21 History [Robitussin DM] Albuterol Inhaler [Ventolin Hfa 2 puff INHALATION 05/13/21 05/13/21 History Inhaler] RT-QID@05,11,17,23 Amoxicillin 500 mg PO BID@0800,1800 05/13/21 05/13/21 History Budesonide [Pulmicort] 1 mg INHALATION RT-BID@0800,1800 05/13/21 05/13/21 History Furosemide [Lasix] 20 mg PO DAILY@0800 05/13/21 05/13/21 History Ipratropium-Albuterol Nebulize 3 ml INHALATION RT-QID@08,12,18,20 05/13/21 History [Duoneb 0.5 mg-3 mg/3 ml Soln] Melatonin 10 mg PO HS 05/13/21 05/13/21 History Oxybutynin Chloride [Oxybutynin 10 mg PO DAILY 05/13/21 05/13/21 History Chloride ER] Pioglitazone [Actos] 15 mg PO DAILY@0800 05/13/21 05/13/21 History predniSONE [Deltasone] 40 mg PO DAILY@0800 05/13/21 05/13/21 History Allergies Allergy/AdvReac Type Severity Reaction Status Date / Time No Known Allergies Allergy Verified 05/13/21 09:01 Physical Exam Vitals: Vital Signs Temp Pulse Pulse Resp BP BP Pulse Ox 05/14/21 07:59 88 05/14/21 07:44 84 05/14/21 03:14 98.6 F 80 17 105/66 96 05/14/21 01:09 98.4 F 94 16 139/79 98 05/14/21 00:03 98.1 F 88 18 116/66 95 05/13/21 22:57 79 18 05/13/21 21:37 18 05/13/21 20:04 98 05/13/21 20:00 95 18 116/95 96 05/13/21 19:56 98 05/13/21 19:24 98.0 F 83 18 111/73 97 05/13/21 17:00 97.5 F L 80 16 119/70 98 05/13/21 15:30 82 05/13/21 15:24 82 05/13/21 14:07 74 16 106/68 92 L Intake and Output 05/13/21 05/14/21 05/14/21 22:59 06:59 14:59 Output Total 300 Balance -300 Output: Urine 300 Other: Voiding Method Indwelling Catheter # Voids 1 Weight 88 kg Results 05/14/21 08:14 05/14/21 01:46 Cardiac Enzymes 05/13/21 05/13/21 05/14/21 Range/Units 09:58 14:09 01:46 AST 17 (17-59) U/L Troponin I <0.012 <0.012 (0.000-0.034) ng/mL CBC 05/13/21 05/13/21 05/14/21 Range/Units 14:09 19:56 01:46 WBC 17.9 H 16.1 H 12.7 H (3.8-10.6) k/uL RBC 2.68 L 2.43 L 2.31 L (4.30-5.90) m/uL Hgb 8.2 L 7.7 L 7.2 L (13.0-17.5) gm/dL Hct 26.3 L 24.4 L 23.1 L (39.0-53.0) % Plt Count 90 L 64 L 65 L (150-450) k/uL Comprehensive Metabolic Panel 05/14/21 Range/Units 01:46 Sodium 139 (137-145) mmol/L Potassium 4.4 (3.5-5.1) mmol/L Chloride 110 H (98-107) mmol/L Carbon Dioxide 24 (22-30) mmol/L BUN 51 H (9-20) mg/dL Creatinine 1.50 H (0.66-1.25) mg/dL Glucose 155 H (74-99) mg/dL Calcium 8.0 L (8.4-10.2) mg/dL AST 17 (17-59) U/L ALT 25 (4-49) U/L Alkaline Phosphatase 49 (38-126) U/L Total Protein 4.6 L (6.3-8.2) g/dL Albumin 2.6 L (3.5-5.0) g/dL Current Medications Generic Name Dose Route Start Last Admin Trade Name Freq PRN Reason Stop Dose Admin Albuterol/Ipratropium 3 ml 05/13/21 13:45 05/14/21 07:43 Ipratropium-Albuterol 3 Ml Neb INHALATION 3 ml RT-QID@,,,20 KEON Administration Allopurinol 200 mg 05/13/21 21:00 05/13/21 20:43 Allopurinol 100 Mg Tab PO 200 mg HS KEON Administration Amoxicillin 500 mg 05/13/21 18:00 05/13/21 17:06 Amoxicillin 500 Mg Cap PO 05/18/21 18:01 500 mg BID@0800,1800 KEON Administration Ascorbic Acid 500 mg 05/14/21 08:00 Ascorbic Acid 500 Mg Tab PO DAILY@0800 KEON Budesonide 1 mg 05/13/21 18:00 05/14/21 07:43 Budesonide 1 Mg/2 Ml Nebu INHALATION 1 mg RT-BID@0800,1800 KEON Administration Famotidine 20 mg 05/14/21 09:00 Famotidine 20 Mg Tab PO DAILY [facility] Ferrous Sulfate 325 mg 05/13/21 18:00 05/13/21 20:42 Ferrous Sulfate 325 Mg Tab PO 325 mg BID@0800,1800 KEON Administration Furosemide 20 mg 05/14/21 08:00 Furosemide 20 Mg Tab PO DAILY@0800 [facility] Guaifenesin/Dextromethorphan 10 ml 05/13/21 11:45 Guaifenesin-Dm 100-10mg/5ml 10 Ml Cup PO BID PRN Cough Insulin Aspart 0 unit 05/13/21 12:30 05/14/21 06:23 Insulin Aspart (Novolog) 100 Unit/Ml Vial SQ Not Given ACHS [facility] Protocol Melatonin 10 mg 05/13/21 21:00 05/13/21 20:42 Melatonin 5 Mg Tablet PO 10 mg HS KEON Administration Multivitamins 1 each 05/14/21 08:00 Multivitamins, Thera 1 Each Tab PO DAILY@0800 [facility] Oxybutynin Chloride 10 mg 05/14/21 09:00 Oxybutynin 10 Mg Tab.Er.24 PO DAILY [facility] Pioglitazone HCl 15 mg 05/14/21 08:00 Pioglitazone 15 Mg Tab PO DAILY@0800 [facility] Prednisone 10 mg 05/14/21 08:00 Prednisone 10 Mg Tab PO DAILY@0800 [facility] Sertraline HCl 50 mg 05/13/21 21:00 05/13/21 20:44 Sertraline 50 Mg Tab PO 50 mg HS KEON Administration Intake and Output 05/13/21 05/14/21 05/14/21 22:59 06:59 14:59 Output Total 300 Balance -300 Output: Urine 300 Other: Voiding Method Indwelling Catheter # Voids 1 Weight 88 kg 05/14/21 01:46 05/14/21 01:46
[2021-05-14 11:57] LABS: Glucose,Whole Blood 162 mg/dL (75-99)
--- NOTE | 2021-05-14 12:31 | P.PN ---
Subjective Progress Note Date: 05/14/21 HISTORY OF PRESENT ILLNESS This is a pleasant 86-year-old gentleman, with known history of atrial fibrillation, COPD, cancer, diabetes mellitus, deafness, recurrent pneumonia, BPH, CKD, admitted to emergency room secondary to cough and shortness of breath. Was diagnosed with aspiration pneumonia and was treated for gram-negative pneumonia. Patient wasn't hospital 05/07/20 and was discharged to [facility] for rehab. Patient apparently had a syncopal episode today according to his nurse in [facility] he get up from his bed this morning and had syncopal episode fell on the floor did not have any seizure activity patient also is complaining of abdominal pain started since last night without any nausea or vomiting no chest pain he continued to complain of mild shortness of breath on and off and mild cough. Continued to have significant problem with s hort-term memory. Was transferred by EMS to the emergency department his white blood cell was 21.5 significantly higher than last time patient remain on steroid also his hemoglobin is down to 8.6 which baseline used to be around 10.5 his creatinine is is up with GFR down to 44 compared to his baseline as well. His Hemoccult was negative troponin is negative his EKG showed A. fib with RVR. Found large hematoma and ecchymosis in the right lower quadrant area CT of the abdomen and pelvis revealed large anterior pelvic hematoma with combination of intramuscular hematoma involving The left greater than the right rectus abdominis and extraperitoneal extension pushing on the bladder the whole area measures 28121 cm there is some additional extraperitoneal hemorrhage. With a hemoglobin dropped down over 2 g patient will be admitted consult trauma surgery as well not a clear whether patient had any trauma or this is just happen from the fall early this morning. 05/14: Patient is doing slightly better today is more awake alert surprisingly had significant drop in hemoglobin compared to yesterday, his retroperitoneal hemorrhage in the right side has expanded some still been watch via CAT scan. Informed by the nurse patient might have mild dysphagia or waiting for speech to see him before ordering full meal. Pain is with control patient still have mild shortness of breath. REVIEW OF SYSTEMS Constitutional: No fever, no chills, no night sweats. No weight change. Reported weakness, reported fatigue. No daytime sleepiness. EENT: No headache. No blurred vision or double vision, no loss of vision. Chronic hearing loss, no dizziness. No nasal drainage or congestion. No epistaxis. No sore throat. Lungs: Reported shortness of breath, noted cough, noted sputum production. Denies wheezing. Cardiovascular: No chest pain, no lower extremity edema. No palpitations. No paroxysmal nocturnal dyspnea. No orthopnea. No lightheadedness or dizziness. No syncopal episodes. Abdominal: Large hematoma on the right side from retroperitoneal bleed. Genitourinary: No dysuria, increased frequency, urgency. No urinary retention. Musculoskeletal: No myalgias. No muscle weakness, no gait dysfunction, no frequent falls. No back pain. No neck pain. Integumentary: No wounds, no lesions. No rash or pruritus. No unusual bruising. No change in hair or nails. Neurologic: No aphasia. No facial droop. Noted change in mentation. Poor short-term memory. No head injury. No headache. No paralysis. No paresthesia. Psychiatric: No depression. No anxiety. No mood swings. Endocrine: Noted abnormal blood sugars, hypoglycemic in the morning. No weight change. PHYSICAL EXAMINATION Gen: This is this is an 86-year-old male. He is resting in recliner appears to be comfortable at rest. HEENT: Head is atraumatic, normocephalic. Pupils equal, round. Sclerae is anicteric. NECK: Supple. No JVD. No lymphadenopathy. No thyromegaly. LUNGS: Decreased breath sound bilaterally specially the right side positive for rhonchi and no crackles slight and exhalation wheezes. HEART: Irregular rhythm and rate soreness to positive S3 positive be ABDOMEN: Soft positive bowel sounds large hematoma and with the right side. EXTREMITIES: No pedal edema. No calf tenderness. Dorsalis pedis is palpable bilaterally. NEUROLOGICAL: Patient is awake, alert and oriented x3. Cranial nerves 2 through 12 are grossly intact. ASSESSMENT AND PLAN 1. Syncope: Not clear etiology but significant hypotension and significant anemia, continue to monitor patient hemodynamically had continue monitoring manager this point most likely syncope was related to hypotension and bleeding. 2 large retroperitoneal hematoma: Consult trauma surgery, might need another CAT scan in the next 48 hours in the meanwhile keep watching for any significant drop in hemoglobin might be consistent with a large hematoma. 3 aspiration pneumonia was treated last week and remain on antibiotics along with steroid patient remain on DuoNeb and Pulmicort as well. 2. COPD, with exacerbation with albuterol, Atrovent and budesonide still on steroid we will decrease prednisone down to 20 mg a day. 3. Acute blood loss anemia: No need for transfusion at this point he is down to 7.4. 4. Chronic atrial fibrillation, for which his doctor has discontinued anticoagulation, pulse rate has been well controlled this point with no tachycardia. 5. Diabetes mellitus 2 continue Accu-Chek with sliding scales coverage along with pioglitazone. Blood sugar is below 100. 6. Acute kidney injury: Most likely ATN from hypotension and hypoperfusion, hydration repeat CMP in the next 24 hours. 7 BiPenia: With significant low platelet at 74,000 still have quite with anemia at 7.3 his white blood cells holding well differential was quite abnormal on admission this is could be from DIC related to with going on with the large hematoma continue to watch 7. BPH without LUTS we watch for any urinary retention, Discharge planning patient will be watch for at least 48 more hours depend on the result of the side and further management. CODE STATUS: Full code. Objective - Vital Signs Vital signs: Vital Signs Temp 98.8 F 05/14/21 08:00 Pulse 88 05/14/21 11:05 Resp 16 05/14/21 08:00 BP 116/67 05/14/21 08:00 Pulse Ox 94 L 05/14/21 08:00 Intake & Output 05/13/21 05/14/21 05/14/21 18:59 06:59 18:59 Output Total 300 400 Balance -300 -400 Weight 88 kg Output: Urine 300 400 Other: Voiding Method Indwelling Catheter Indwelling Catheter # Voids 1 - Labs CBC & Chem 7: 05/14/21 08:14 05/14/21 01:46 Labs: Abnormal Lab Results - Last 24 Hours (Table) 05/13/21 05/13/21 05/13/21 Range/Units 08:30 14:09 14:15 WBC 17.9 H (3.8-10.6) k/uL RBC 2.68 L (4.30-5.90) m/uL Hgb 8.2 L (13.0-17.5) gm/dL Hct 26.3 L (39.0-53.0) % MCV (80.0-100.0) fL RDW 17.2 H (11.5-15.5) % Plt Count 90 L (150-450) k/uL Neutrophils # 15.3 H (1.3-7.7) k/uL Chloride (98-107) mmol/L BUN (9-20) mg/dL Creatinine (0.66-1.25) mg/dL Glucose (74-99) mg/dL POC Glucose (mg/dL) 177 H (75-99) mg/dL Calcium (8.4-10.2) mg/dL Total Protein (6.3-8.2) g/dL Albumin (3.5-5.0) g/dL Crossmatch See Detail 05/13/21 05/13/21 05/13/21 Range/Units 16:59 19:56 20:47 WBC 16.1 H (3.8-10.6) k/uL RBC 2.43 L (4.30-5.90) m/uL Hgb 7.7 L (13.0-17.5) gm/dL Hct 24.4 L (39.0-53.0) % MCV 100.3 H (80.0-100.0) fL RDW 16.8 H (11.5-15.5) % Plt Count 64 L (150-450) k/uL Neutrophils # (1.3-7.7) k/uL Chloride (98-107) mmol/L BUN (9-20) mg/dL Creatinine (0.66-1.25) mg/dL Glucose (74-99) mg/dL POC Glucose (mg/dL) 167 H 172 H (75-99) mg/dL Calcium (8.4-10.2) mg/dL Total Protein (6.3-8.2) g/dL Albumin (3.5-5.0) g/dL Crossmatch 05/14/21 05/14/21 05/14/21 Range/Units 01:46 01:46 06:18 WBC 12.7 H (3.8-10.6) k/uL RBC 2.31 L (4.30-5.90) m/uL Hgb 7.2 L (13.0-17.5) gm/dL Hct 23.1 L (39.0-53.0) % MCV 100.1 H (80.0-100.0) fL RDW 16.9 H (11.5-15.5) % Plt Count 65 L (150-450) k/uL Neutrophils # (1.3-7.7) k/uL Chloride 110 H (98-107) mmol/L BUN 51 H (9-20) mg/dL Creatinine 1.50 H (0.66-1.25) mg/dL Glucose 155 H (74-99) mg/dL POC Glucose (mg/dL) 140 H (75-99) mg/dL Calcium 8.0 L (8.4-10.2) mg/dL Total Protein 4.6 L (6.3-8.2) g/dL Albumin 2.6 L (3.5-5.0) g/dL Crossmatch 05/14/21 05/14/21 Range/Units 08:14 11:55 WBC 11.3 H (3.8-10.6) k/uL RBC 2.30 L (4.30-5.90) m/uL Hgb 7.3 L (13.0-17.5) gm/dL Hct 22.4 L (39.0-53.0) % MCV (80.0-100.0) fL RDW 17.2 H (11.5-15.5) % Plt Count 74 L (150-450) k/uL Neutrophils # (1.3-7.7) k/uL Chloride (98-107) mmol/L BUN (9-20) mg/dL Creatinine (0.66-1.25) mg/dL Glucose (74-99) mg/dL POC Glucose (mg/dL) 162 H (75-99) mg/dL Calcium (8.4-10.2) mg/dL Total Protein (6.3-8.2) g/dL Albumin (3.5-5.0) g/dL Crossmatch Microbiology - Last 24 Hours (Table) 05/13/21 08:30 Blood Culture - Preliminary Blood No Growth after 24 hours 05/13/21 08:46 Blood Culture - Preliminary Blood No Growth after 24 hours
--- NOTE | 2021-05-14 13:51 | P.GSCN ---
History of Present Illness Consult date: 05/14/21 History of present illness: CHIEF COMPLAINT: Possible syncope HISTORY OF PRESENT ILLNESS: This is a 86-year-old male with a known history of atrial fibrillation not on anticoagulation, COPD, brain cancer with surgical intervention and radiation, history of left nephrectomy, diabetes mellitus, deafness, recurrent pneumonia, BPH and chronic kidney disease. Presented to the emergency room with possible syncopal episode. Patient tried to get up out of bed at the [facility] and he was syncopal episode and fell to the floor. And since then had been complaining of abdominal pain. Patient reports lower abdominal pain. Denies any nausea or vomiting. Patient had computed tomography scan of the abdomen and pelvis shows large anterior pelvic hematoma, combination of intramuscular hematoma involving the left greater than right rectus abdominis and also with contiguous extraperitoneal extension of hematoma pushing the bladder posteriorly. Hematoma measures 16.1 x 8.3 x 13.4 cm. Some additional extraperitoneal hemorrhage fluid tracks up the mid abdomen level. Surgical service consult for abdominal hematoma. Patient's hemoglobin has trended downwards from 8.6-7.2. He does also have a prior history of hematoma of the right gluteus muscle. PAST MEDICAL HISTORY: See list. PAST SURGICAL HISTORY: See list. MEDICATIONS: See list. ALLERGIES: See list. SOCIAL HISTORY: No illicit drug use. REVIEW OF SYSTEMS: CONSTITUTIONAL: Denies fever or chills. HEENT: Denies blurred vision, vision changes, or eye pain. Denies hemoptysis CARDIOVASCULAR: Denies chest pain or pressure. RESPIRATORY: No shortness of breath. GASTROINTESTINAL: See HPI for pertinent findings HEMATOLOGIC: Denies bleeding disorders. GENITOURINARY: Denies any blood in urine or increased urinary frequency. SKIN: Denies pruitis. Denies rash. PHYSICAL EXAM: VITAL SIGNS: Reviewed GENERAL: Well-developed in no acute distress. HEENT: No sclera icterus. Extraocular movements grossly intact. Moist buccal mucosa. Head is atraumatic, normocephalic. No nasal drainage. ABDOMEN: Soft. Nondistended. Tenderness of palpation of the lower abdomen NEUROLOGIC: Alert and oriented. Cranial nerves II through XII grossly intact. LABORATORY DATA: WBC 16.1 down to 11.3 hemoglobin 8.6 down to 7.2. Last hemoglobin was 7.3 IMAGING: computed tomography scan of the abdomen and pelvis shows large anterior pelvic hematoma, combination of intramuscular hematoma involving the left greater than right rectus abdominis and also with contiguous extraperitoneal extension of hematoma pushing the bladder posteriorly. Hematoma measures 16.1 x 8.3 x 13.4 cm. Some additional extraperitoneal hemorrhage fluid tracks up the mid abdomen level. There appears to be a left lateral flank abdominal wall muscle defect probably relating to patient's prior left nephrectomy. Some focal opacity collects here as well measuring 3.8 cm, probably some pooling retroperitoneal hemorrhagic fluid. Concepcion as to the reason for patient's nephrectomy. 3 month follow-up CT to exclude underlying neoplasm if nephrectomy was performed for renal cell carcinoma. Mild perihepatic ascites and trace. Splenic ascites. ASSESSMENT: 1. Large anterior pelvic hematoma and a rectus sheath hematoma PLAN: -Continue observation -No surgical intervention planned -Continue to monitor hemoglobin -Okay to start regular carb consistent diet Thank you for this consultation Physician [employer]izer note has been reviewed by physician. Signing provider agrees with the documented findings, assessment, and plan of care. Past Medical History Past Medical History: Atrial Fibrillation, Cancer, COPD, Diabetes Mellitus, Eye Disorder, Hearing Disorder / Deafness, Hypertension, Pneumonia, Prostate Disorder, Renal Disease Additional Past Medical History / Comment(s): Pt recently admitted to [facility] on 01/25/20 with a mechanical fall/hematoma R buttock and acute blood loss anemia. Other hx: 2010 Brain cancer with surgery and radiation, L nephrectomy d/t deteriorating kidney, CKD stage III, BPH, chronic thrombocytopenia, chronic anemia, diet controlled diabetes, generalized arthritis, L2 compression fracture, blind R eye, ALTURAS blaterally, seasonal allergies. 05/14/21 admitted with abdominal hematoma History of Any Multi-Drug Resistant Organisms: None Reported Additional Past Surgical History / Comment(s): L nephrectomy, brain tumor removal, bilateral cataract removals, colonoscopy. Past Anesthesia/Blood Transfusion Reactions: No Reported Reaction Additional Past Anesthesia/Blood Transfusion Reaction / Comm: Pt has received blood in past without reaction. Past Psychological History: Depression Additional Psychological History / Comment(s): Pt resides with his spouse. He is independent. He uses a crutch to ambulate. He states he is not receiving any home care. Smoking Status: Former smoker Past Alcohol Use History: None Reported Additional Past Alcohol Use History / Comment(s): Pt cannot recall when he sta rted smoking, stating he smoked on and off for years but he quit smoking in 1977. Past Drug Use History: None Reported - Past Family History Father Family Medical History: No Reported History Additional Family Medical History / Comment(s): Father was healthy. He at the age of 62yrs in a MVA. Mother Additional Family Medical History / Comment(s): Mother at the age of 86yrs of "heart problems." Brother(s) Additional Family Medical History / Comment(s): Patient has 3 brothers and one is passed from old age. Patient has 4 sisters with no major medical problems. Patient had 2 children one from muscular dystrophy and one is alive with no major medical problems. Medications and Allergies Home Medications Medication Instructions Recorded Confirmed Type Ferrous Sulfate [Feosol] 325 mg PO BID@0800,1800 03/25/14 05/13/21 History Multivitamins, Thera [Multivitamin 1 tab PO DAILY@0800 03/25/14 05/13/21 History (formulary)] Ascorbic Acid [Vitamin C] 500 mg PO DAILY@0800 11/21/16 05/13/21 History Sertraline [Zoloft] 50 mg PO HS 01/25/20 05/13/21 History allopurinoL [Zyloprim] 200 mg PO HS 01/25/20 05/13/21 History guaiFENesin-DM 100-10MG/5ML 10 ml PO BID PRN 04/29/21 05/13/21 History [Robitussin DM] Albuterol Inhaler [Ventolin Hfa 2 puff INHALATION 05/13/21 05/13/21 History Inhaler] RT-QID@05,11,17,23 Amoxicillin 500 mg PO BID@0800,1800 05/13/21 05/13/21 History Budesonide [Pulmicort] 1 mg INHALATION RT-BID@0800,1800 05/13/21 05/13/21 History Furosemide [Lasix] 20 mg PO DAILY@0800 05/13/21 05/13/21 History Ipratropium-Albuterol Nebulize 3 ml INHALATION RT-QID@08,12,18,20 05/13/21 05/13/21 History [Duoneb 0.5 mg-3 mg/3 ml Soln] Melatonin 10 mg PO HS 05/13/21 05/13/21 History Oxybutynin Chloride [Oxybutynin 10 mg PO DAILY 05/13/21 05/13/21 History Chloride ER] Pioglitazone [Actos] 15 mg PO DAILY@0800 05/13/21 05/13/21 History predniSONE [Deltasone] 40 mg PO DAILY@0800 05/13/21 05/13/21 History Allergies Allergy/AdvReac Type Severity Reaction Status Date / Time No Known Allergies Allergy Verified 05/13/21 09:01 Surgical - Exam Vital Signs Temp Pulse Resp BP Pulse Ox 97.3 F L 88 16 128/88 95 05/13/21 05:58 05/13/21 05:58 05/13/21 05:58 05/13/21 05:58 05/13/21 05:58 Results - Labs 05/14/21 08:14 05/14/21 01:46 Abnormal Lab Results - Last 24 Hours (Table) 05/13/21 05/13/21 05/13/21 Range/Units 08:30 14:09 14:15 WBC 17.9 H (3.8-10.6) k/uL RBC 2.68 L (4.30-5.90) m/uL Hgb 8.2 L (13.0-17.5) gm/dL Hct 26.3 L (39.0-53.0) % MCV (80.0-100.0) fL RDW 17.2 H (11.5-15.5) % Plt Count 90 L (150-450) k/uL Neutrophils # 15.3 H (1.3-7.7) k/uL Chloride (98-107) mmol/L BUN (9-20) mg/dL Creatinine (0.66-1.25) mg/dL Glucose (74-99) mg/dL POC Glucose (mg/dL) 177 H (75-99) mg/dL Calcium (8.4-10.2) mg/dL Total Protein (6.3-8.2) g/dL Albumin (3.5-5.0) g/dL Crossmatch See Detail 05/13/21 05/13/21 05/13/21 Range/Units 16:59 19:56 20:47 WBC 16.1 H (3.8-10.6) k/uL RBC 2.43 L (4.30-5.90) m/uL Hgb 7.7 L (13.0-17.5) gm/dL Hct 24.4 L (39.0-53.0) % MCV 100.3 H (80.0-100.0) fL RDW 16.8 H (11.5-15.5) % Plt Count 64 L (150-450) k/uL Neutrophils # (1.3-7.7) k/uL Chloride (98-107) mmol/L BUN (9-20) mg/dL Creatinine (0.66-1.25) mg/dL Glucose (74-99) mg/dL POC Glucose (mg/dL) 167 H 172 H (75-99) mg/dL Calcium (8.4-10.2) mg/dL Total Protein (6.3-8.2) g/dL Albumin (3.5-5.0) g/dL Crossmatch 05/14/21 05/14/21 05/14/21 Range/Units 01:46 01:46 06:18 WBC 12.7 H (3.8-10.6) k/uL RBC 2.31 L (4.30-5.90) m/uL Hgb 7.2 L (13.0-17.5) gm/dL Hct 23.1 L (39.0-53.0) % MCV 100.1 H (80.0-100.0) fL RDW 16.9 H (11.5-15.5) % Plt Count 65 L (150-450) k/uL Neutrophils # (1.3-7.7) k/uL Chloride 110 H (98-107) mmol/L BUN 51 H (9-20) mg/dL Creatinine 1.50 H (0.66-1.25) mg/dL Glucose 155 H (74-99) mg/dL POC Glucose (mg/dL) 140 H (75-99) mg/dL Calcium 8.0 L (8.4-10.2) mg/dL Total Protein 4.6 L (6.3-8.2) g/dL Albumin 2.6 L (3.5-5.0) g/dL Crossmatch 05/14/21 05/14/21 Range/Units 08:14 11:55 WBC 11.3 H (3.8-10.6) k/uL RBC 2.30 L (4.30-5.90) m/uL Hgb 7.3 L (13.0-17.5) gm/dL Hct 22.4 L (39.0-53.0) % MCV (80.0-100.0) fL RDW 17.2 H (11.5-15.5) % Plt Count 74 L (150-450) k/uL Neutrophils # (1.3-7.7) k/uL Chloride (98-107) mmol/L BUN (9-20) mg/dL Creatinine (0.66-1.25) mg/dL Glucose (74-99) mg/dL POC Glucose (mg/dL) 162 H (75-99) mg/dL Calcium (8.4-10.2) mg/dL Total Protein (6.3-8.2) g/dL Albumin (3.5-5.0) g/dL Crossmatch Microbiology - Last 24 Hours (Table) 05/13/21 08:30 Blood Culture - Preliminary Blood No Growth after 24 hours 05/13/21 08:46 Blood Culture - Preliminary Blood No Growth after 24 hours Diabetes panel 05/14/21 Range/Units 01:46 Sodium 139 (137-145) mmol/L Potassium 4.4 (3.5-5.1) mmol/L Chloride 110 H (98-107) mmol/L Carbon Dioxide 24 (22-30) mmol/L BUN 51 H (9-20) mg/dL Creatinine 1.50 H (0.66-1.25) mg/dL Glucose 155 H (74-99) mg/dL Calcium 8.0 L (8.4-10.2) mg/dL AST 17 (17-59) U/L ALT 25 (4-49) U/L Alkaline Phosphatase 49 (38-126) U/L Total Protein 4.6 L (6.3-8.2) g/dL Albumin 2.6 L (3.5-5.0) g/dL Calcium panel 05/14/21 Range/Units 01:46 Calcium 8.0 L (8.4-10.2) mg/dL Albumin 2.6 L (3.5-5.0) g/dL Pituitary panel 05/14/21 Range/Units 01:46 Sodium 139 (137-145) mmol/L Potassium 4.4 (3.5-5.1) mmol/L Chloride 110 H (98-107) mmol/L Carbon Dioxide 24 (22-30) mmol/L BUN 51 H (9-20) mg/dL Creatinine 1.50 H (0.66-1.25) mg/dL Glucose 155 H (74-99) mg/dL Calcium 8.0 L (8.4-10.2) mg/dL Adrenal panel 05/14/21 Range/Units 01:46 Sodium 139 (137-145) mmol/L Potassium 4.4 (3.5-5.1) mmol/L Chloride 110 H (98-107) mmol/L Carbon Dioxide 24 (22-30) mmol/L BUN 51 H (9-20) mg/dL Creatinine 1.50 H (0.66-1.25) mg/dL Glucose 155 H (74-99) mg/dL Calcium 8.0 L (8.4-10.2) mg/dL Total Bilirubin 0.8 (0.2-1.3) mg/dL AST 17 (17-59) U/L ALT 25 (4-49) U/L Alkaline Phosphatase 49 (38-126) U/L Total Protein 4.6 L (6.3-8.2) g/dL Albumin 2.6 L (3.5-5.0) g/dL
[2021-05-14 16:29] LABS: Anisocytosis Slight; Basophils % (A) 0 %; Eosinophils % (A) 0 %; HCT 22.7 % (39.0-53.0); Hypochromasia Slight; Lymphocytes # (A) 0.7 k/uL (1.0-4.8); Lymphocytes % (A) 7 %; MCH 31.4 pg (25.0-35.0); MCV 101.3 fL (80.0-100.0); Macrocytosis Slight; Mean Platelet Volume 14.5; Monocytes # (A) 0.5 k/uL (0-1.0); Monocytes % (A) 5 %; Neutrophils % (A) 88 %; RBC 2.24 m/uL (4.30-5.90); RDW 16.8 % (11.5-15.5); WBC 10.3 k/uL (3.8-10.6)
[2021-05-14 16:31] LABS: Platelet Count 62 k/uL (150-450)
[2021-05-14 16:51] LABS: Glucose,Whole Blood 228 mg/dL (75-99)
[2021-05-14 19:47] LABS: Glucose,Whole Blood 189 mg/dL (75-99)
[2021-05-14] MEDS: allopurinoL 100 MG TAB PO SCH (21:11)
[2021-05-14] MEDS: MELATONIN 5 MG TABLET PO SCH (21:12)
[2021-05-14] MEDS: SERTRALINE 50 MG TAB PO SCH (21:12)
[2021-05-15 05:46] LABS: Glucose,Whole Blood 160 mg/dL (75-99)
[2021-05-15] MEDS: INSULIN ASPART (NovoLOG) 100 UNIT/ML VIAL SQ SCH ×4 (06:30→20:23)
[2021-05-15] MEDS: IPRATROPIUM-ALBUTEROL 3 ML NEB INHALATION SCH ×4 (07:50→19:00)
[2021-05-15] MEDS: BUDESONIDE 1 MG/2 ML NEBU INHALATION SCH ×2 (07:50→18:55)
[2021-05-15] MEDS: FAMOTIDINE 20 MG TAB PO SCH (09:01)
[2021-05-15] MEDS: OXYBUTYNIN 10 MG TAB.ER.24 PO SCH (09:01)
[2021-05-15] MEDS: AMOXICILLIN 500 MG CAP PO SCH ×2 (09:01→17:11)
[2021-05-15] MEDS: MULTIVITAMINS, THERA 1 EACH TAB PO SCH (09:01)
[2021-05-15] MEDS: PIOGLITAZONE 15 MG TAB PO SCH (09:02)
[2021-05-15] MEDS: FERROUS SULFATE 325 MG TAB PO SCH ×2 (09:02→17:11)
[2021-05-15] MEDS: FUROSEMIDE 20 MG TAB PO SCH (09:02)
[2021-05-15] MEDS: ASCORBIC ACID 500 MG TAB PO SCH (09:02)
[2021-05-15] MEDS: predniSONE 10 MG TAB PO SCH (09:02)
[2021-05-15 10:12] LABS: Anisocytosis Slight; HGB 7.7 gm/dL (13.0-17.5); Hypochromasia Slight; MCH 30.7 pg (25.0-35.0); MCHC 30.9 g/dL (31.0-37.0); MCV 99.3 fL (80.0-100.0); Macrocytosis Slight; Mean Platelet Volume 13.4; RBC 2.52 m/uL (4.30-5.90); RDW 17.2 % (11.5-15.5); WBC 8.4 k/uL (3.8-10.6)
[2021-05-15 10:16] LABS: Platelet Count 56 k/uL (150-450)
--- NOTE | 2021-05-15 10:28 | ECHOF ---
Referral Reason: MEASUREMENTS -------- HEIGHT: 182.9 cm WEIGHT: 88.0 kg BP: 116/67 RVIDd: 2.9 cm (< 3.3) IVSd: 1.9 cm (0.6 - 1.1) LVIDd: 3.9 cm (3.9 - 5.3) LVPWd: 1.4 cm (0.6 - 1.1) IVSs: 2.4 cm LVIDs: 2.8 cm LVPWs: 1.6 cm LAESV Index (A-L): 59.70 ml/m Ao Diam: 3.9 cm (2.0 - 3.7) AV Cusp: 2.5 cm (1.5 - 2.6) MV EXCURSION: 21.351 mm (> 18.000) MV EF SLOPE: 39 mm/s (70 - 150) EPSS: 0.4 cm RAP: 5.00 mmHg RVSP: 36.69 mmHg FINDINGS -------- Atrial fibrillation. This was a technically difficult study with suboptimal views. The left ventricular size is normal. There is moderate concentric left ventricular hypertrophy. O verall left ventricular systolic function is normal with, an EF between 55 - 60 %. The right ventricle is normal in size. LA is severely dilated >40 ml/m2 The right atrium was not well visualized. 5.0mg of Lumason was utilized for enhancement of images Interatrial and interventricular septum intact. The aortic valve is trileaflet, and appears structurally normal. No aortic stenosis or regurgitation. The mitral valve leaflets are mildly thickened. Moderate mitral regurgitation is present. [id number] tricuspid regurgitation present. There is mild pulmonary hypertension. The right ventricular systolic pressure, as measured by Doppler, is 36.69mmHg. There is no pulmonic regurgitation present. The aortic root size is normal. IVC Not well visulized. There is no pericardial effusion. CONCLUSIONS -------- 1. Atrial fibrillation. 2. This was a technically difficult study with suboptimal views. 3. There is moderate concentric left ventricular hypertrophy. 4. Overall left ventricular systolic function is normal with, an EF between 55 - 60 %. 5. LA is severely dilated >40 ml/m2 6. The aortic valve is trileaflet, and appears structurally normal. No aortic stenosis or regurgitati on. 7. The mitral valve leaflets are mildly thickened. 8. Moderate mitral regurgitation is present. 9. [id number] tricuspid regurgitation present. 10. There is mild pulmonary hypertension. VEGETABLE LOADER: Chiara Dover RDCS
[2021-05-15 10:29] LABS: Albumin 2.6 g/dL (3.5-5.0); Potassium 3.8 mmol/L (3.5-5.1); Total Protein 4.7 g/dL (6.3-8.2)
[2021-05-15 11:51] LABS: Glucose,Whole Blood 295 mg/dL (75-99)
--- NOTE | 2021-05-15 12:26 | P.PN ---
Subjective HISTORY OF PRESENTING ILLNESS This is a pleasant 86-year-old male past medical history significant for chronic persistent atrial fibrillation on long-term anticoagulation secondary to GI bleeding, COPD, diabetes mellitus, hypertension history of brain tumor status post surgical removal and radiation, left nephrectomy, chronic kidney disease and poor functional capacity. He follows in the office with Dr. Mills. We have been asked to see in consultation for syncope. He presented to the hospital from rehab secondary to fall. The patient is somewhat confused regarding the events surrounding this however he just states that he remembers falling. He does not recall having any significant dizziness prior to falling. He denies loss of consciousness. He denies chest pain, dizziness or palpitations. EKG on arrival reveals atrial fibrillation with controlled ventricular rate with no significant ST or T-wave abnormalities. Telemetry tracings reveal persistent atrial fibrillation with variable ventricular rates. Chest x-ray reveals patchy atelectasis. CT of the abdomen and pelvis reveals a large anterior pelvic hematoma combination of intramuscular hematoma involving the left greater than right rectus abdominis and also with contiguous extraperitoneal extension of the hematoma pushing the bladder posteriorly measuring 16.18.313.4 cm. Some additional extraperitoneal hemorrhagic fluid tracks up the mid abdominal level. Left lateral flank abdominal wall muscle defect probably related to patient's prior left nephrectomy and mild perihepatic ascites noted. Laboratory data reviewed, WBC 11.3, hemoglobin 7.3, platelets 74, sodium 139, potassium 4.4, creatinine 1.5 and cardiac enzymes negative 3. Current daily cardiac medications include Lasix 20 mg daily. 05/15/2021 Patient is seen and examined resting comfortably laying flat in bed in no acute distress. He has no symptoms of chest pain, shortness of breath, dizziness or palpitations. Telemetry tracings reveal atrial fibrillation with intermittent l eft bundle branch block pattern. No significant pauses noted. Laboratory data reviewed, WBC 8.4, hemoglobin 7.7 and platelets 56. Echocardiogram obtained reveals preserved LV systolic function with EF 55-60%, mild-moderate TR and mild pulmonary hypertension with RVSP 36 mmHg. PHYSICAL EXAMINATION CONSTITUTIONAL: No apparent distress. HEENT: Head is normocephalic. Pupils are equal, round. Sclerae anicteric. Mucous membranes of the mouth are moist. No JVD. No carotid bruit. CHEST EXAMINATION: Lungs are clear to auscultation. No chest wall tenderness is noted on palpation or with deep breathing. HEART EXAMINATION: Irregular rate and rhythm. S1, S2 heard. No murmurs, gallops or rub. EXTREMITIES: 2+ peripheral pulses, no lower extremity edema and no calf tenderness. ASSESSMENT Fall, unclear etiology. Retroperitoneal hematoma Acute blood loss anemia secondary to above Chronic persistent atrial fibrillation not on nursing home anticoagulation secondary to GI bleeding Chronic kidney disease History of left nephrectomy Diabetes mellitus PLAN No telemetry evidence to suggest significant pauses as a cause for his possible syncope. Ongoing medical management. We will follow along as needed, follow-up with Dr. Mills upon discharge. Nurse Practitioner note has been reviewed, I agree with a documented findings and plan of care. Patient was seen and examined. Objective - Vital Signs Vital signs: Vital Signs Temp 98.5 F 05/15/21 08:00 Pulse 77 05/15/21 08:00 Resp 16 05/15/21 08:00 BP 113/67 05/15/21 08:00 Pulse Ox 97 05/15/21 08:00 Intake & Output 05/14/21 05/15/21 05/15/21 18:59 06:59 18:59 Intake Total 180 620 360 Output Total 1150 600 525 Balance -970 20 -165 Weight 93 kg Intake: Oral 180 360 Blood Product 620 Rc As-1 Unit 310 [id number] Output: Urine 1150 600 525 Other: Voiding Method Indwelling Catheter Indwelling Catheter Indwelling Catheter - Labs CBC & Chem 7: 05/15/21 09:31 05/15/21 09:31 Labs: Abnormal Lab Results - Last 24 Hours (Table) 05/13/21 05/14/21 05/14/21 Range/Units 08:30 11:55 16:13 RBC 2.24 L (4.30-5.90) m/uL Hgb 7.0 L (13.0-17.5) gm/dL Hct 22.7 L (39.0-53.0) % MCV 101.3 H (80.0-100.0) fL MCHC (31.0-37.0) g/dL RDW 16.8 H (11.5-15.5) % Plt Count 62 L (150-450) k/uL Neutrophils # 9.0 H (1.3-7.7) k/uL Lymphocytes # 0.7 L (1.0-4.8) k/uL POC Glucose (mg/dL) 162 H (75-99) mg/dL Crossmatch See Detail 05/14/21 05/14/21 05/15/21 Range/Units 16:50 19:45 05:44 RBC (4.30-5.90) m/uL Hgb (13.0-17.5) gm/dL Hct (39.0-53.0) % MCV (80.0-100.0) fL MCHC (31.0-37.0) g/dL RDW (11.5-15.5) % Plt Count (150-450) k/uL Neutrophils # (1.3-7.7) k/uL Lymphocytes # (1.0-4.8) k/uL POC Glucose (mg/dL) 228 H 189 H 160 H (75-99) mg/dL Crossmatch 05/15/21 Range/Units 09:31 RBC 2.52 L (4.30-5.90) m/uL Hgb 7.7 L (13.0-17.5) gm/dL Hct 25.0 L (39.0-53.0) % MCV (80.0-100.0) fL MCHC 30.9 L (31.0-37.0) g/dL RDW 17.2 H (11.5-15.5) % Plt Count 56 L (150-450) k/uL Neutrophils # (1.3-7.7) k/uL Lymphocytes # (1.0-4.8) k/uL POC Glucose (mg/dL) (75-99) mg/dL Crossmatch Microbiology - Last 24 Hours (Table) 05/13/21 08:30 Blood Culture - Preliminary Blood No Growth after 24 hours 05/13/21 08:46 Blood Culture - Preliminary Blood No Growth after 24 hours
--- NOTE | 2021-05-15 14:14 | P.PN ---
Subjective Progress Note Date: 05/15/21 CHIEF COMPLAINT: Possible syncope HISTORY OF PRESENT ILLNESS: Surgical service is following regards to patient's abdominal wall hematoma. His hemoglobin did drop to 7.0. He received 1 unit of blood. Hemoglobin is now 7.7. Patient is resting comfortably. Afebrile. WBC 8.4 hemoglobin 7.7 platelets 56 Patient seen and examined with Dr. howard PHYSICAL EXAM: VITAL SIGNS: Reviewed. GENERAL: Well-developed in no acute distress. HEENT: No sclera icterus. Extraocular movements grossly intact. Moist buccal mucosa. Head is atraumatic, normocephalic. ABDOMEN: Soft. Nondistended. NEUROLOGIC: Alert and oriented. Cranial nerves II through XII grossly intact. ASSESSMENT: 1. Large anterior pelvic hematoma and a rectus sheath hematoma PLAN: -Continue to observe patient -No surgical intervention planned -Continue to monitor hemoglobin -Give blood transfusion as needed for hemoglobin equal to or less than 7 Physician [employer] Reading Teacher note has been reviewed by physician. Signing provider agrees with the documented findings, assessment, and plan of care. Objective - Vital Signs Vital signs: Vital Signs Temp 98.5 F 05/15/21 08:00 Pulse 78 05/15/21 13:51 Resp 16 05/15/21 13:51 BP 123/74 05/15/21 12:00 Pulse Ox 96 05/15/21 13:49 Intake & Output 05/14/21 05/15/21 05/15/21 18:59 06:59 18:59 Intake Total 180 620 720 Output Total 1150 600 525 Balance -970 20 195 Weight 93 kg Intake: Oral 180 720 Blood Product 620 Rc As-1 Unit 310 [id number] Output: Urine 1150 600 525 Other: Voiding Method Indwelling Catheter Indwelling Catheter Indwelling Catheter - Labs CBC & Chem 7: 05/15/21 09:31 05/15/21 09:31 Labs: Abnormal Lab Results - Last 24 Hours (Table) 05/13/21 05/14/21 05/14/21 Range/Units 08:30 16:13 16:50 RBC 2.24 L (4.30-5.90) m/uL Hgb 7.0 L (13.0-17.5) gm/dL Hct 22.7 L (39.0-53.0) % MCV 101.3 H (80.0-100.0) fL MCHC (31.0-37.0) g/dL RDW 16.8 H (11.5-15.5) % Plt Count 62 L (150-450) k/uL Neutrophils # 9.0 H (1.3-7.7) k/uL Lymphocytes # 0.7 L (1.0-4.8) k/uL Chloride (98-107) mmol/L BUN (9-20) mg/dL Creatinine (0.66-1.25) mg/dL Glucose (74-99) mg/dL POC Glucose (mg/dL) 228 H (75-99) mg/dL Calcium (8.4-10.2) mg/dL Total Protein (6.3-8.2) g/dL Albumin (3.5-5.0) g/dL Crossmatch See Detail 05/14/21 05/15/21 05/15/21 Range/Units 19:45 05:44 09:31 RBC 2.52 L (4.30-5.90) m/uL Hgb 7.7 L (13.0-17.5) gm/dL Hct 25.0 L (39.0-53.0) % MCV (80.0-100.0) fL MCHC 30.9 L (31.0-37.0) g/dL RDW 17.2 H (11.5-15.5) % Plt Count 56 L (150-450) k/uL Neutrophils # (1.3-7.7) k/uL Lymphocytes # (1.0-4.8) k/uL Chloride (98-107) mmol/L BUN (9-20) mg/dL Creatinine (0.66-1.25) mg/dL Glucose (74-99) mg/dL POC Glucose (mg/dL) 189 H 160 H (75-99) mg/dL Calcium (8.4-10.2) mg/dL Total Protein (6.3-8.2) g/dL Albumin (3.5-5.0) g/dL Crossmatch 05/15/21 05/15/21 Range/Units 09:31 11:49 RBC (4.30-5.90) m/uL Hgb (13.0-17.5) gm/dL Hct (39.0-53.0) % MCV (80.0-100.0) fL MCHC (31.0-37.0) g/dL RDW (11.5-15.5) % Plt Count (150-450) k/uL Neutrophils # (1.3-7.7) k/uL Lymphocytes # (1.0-4.8) k/uL Chloride 112 H (98-107) mmol/L BUN 43 H (9-20) mg/dL Creatinine 1.42 H (0.66-1.25) mg/dL Glucose 153 H (74-99) mg/dL POC Glucose (mg/dL) 295 H (75-99) mg/dL Calcium 8.0 L (8.4-10.2) mg/dL Total Protein 4.7 L (6.3-8.2) g/dL Albumin 2.6 L (3.5-5.0) g/dL Crossmatch Microbiology - Last 24 Hours (Table) 05/13/21 08:46 Blood Culture - Preliminary Blood No Growth after 48 hours 05/13/21 08:30 Blood Culture - Preliminary Blood No Growth after 48 hours
--- NOTE | 2021-05-15 14:40 | P.PN ---
Subjective Progress Note Date: 05/15/21 HISTORY OF PRESENT ILLNESS This is a pleasant 86-year-old gentleman, with known history of atrial fibrillation, COPD, cancer, diabetes mellitus, deafness, recurrent pneumonia, BPH, CKD, admitted to emergency room secondary to cough and shortness of breath. Was diagnosed with aspiration pneumonia and was treated for gram-negative pneumonia. Patient wasn't hospital 05/07/20 and was discharged to [facility] for rehab. Patient apparently had a syncopal episode today according to [facility] nurse in [facility] he get up from his bed this morning and had syncopal episode fell on the floor did not have any seizure activity patient also is complaining of abdominal pain started since last night without any nausea or vomiting no chest pain he continued to complain of mild shortness of breath on and off and mild cough. Continued to have significant problem with sh ort-term memory. Was transferred by EMS to the emergency department his white blood cell was 21.5 significantly higher than last time patient remain on steroid also his hemoglobin is down to 8.6 which baseline used to be around 10.5 his creatinine is is up with GFR down to 44 compared to his baseline as well. His Hemoccult was negative troponin is negative his EKG showed A. fib with RVR. Found large hematoma and ecchymosis in the right lower quadrant area CT of the abdomen and pelvis revealed large anterior pelvic hematoma with combination of intramuscular hematoma involving The left greater than the right rectus abdominis and extraperitoneal extension pushing on the bladder the whole area measures 52963 cm there is some additional extraperitoneal hemorrhage. With a hemoglobin dropped down over 2 g patient will be admitted consult trauma surgery as well not a clear whether patient had any trauma or this is just happen from the fall early this morning. 05/14: Patient is doing slightly better today is more awake alert surprisingly had significant drop in hemoglobin compared to yesterday, his retroperitoneal hemorrhage in the right side has expanded some still been watch via CAT scan. Informed by the nurse patient might have mild dysphagia or waiting for speech to see him before ordering full meal. Pain is with control patient still have mild shortness of breath. 05/15: Patient has been seen by general surgery this morning with plan for no surgical intervention continue to observe the patient. Cardiology is also following and no abnormalities on telemetry to suggest pauses as cause of his possible syncope. Cardiology is following on an as-needed basis with plan for f ollow-up in the office with Dr. Mills. Echocardiogram reveals EF of 55-60%, moderate mitral regurgitation, mild to moderate tricuspid regurgitation, mild pulmonary hypertension. He has been afebrile, heart rate 78, blood pressure 123/74, pulse ox 95% on room air. Plan to monitor patient overnight, recheck hemoglobin and if stable discharge back to [facility] tomorrow. Patient is verbalizing that he does not want to [facility] to the [facility] and he wants to go home. We did have this issue with last admission and patient is not safe to return home with his . Social work is following. REVIEW OF SYSTEMS Constitutional: No fever, no chills, no night sweats. No weight change. Reported weakness, reported fatigue. No daytime sleepiness. EENT: No headache. No blurred vision or double vision, no loss of vision. Chronic hearing loss, no dizziness. No nasal drainage or congestion. No epistaxis. No sore throat. Lungs: Reported shortness of breath, noted cough, noted sputum production. Denies wheezing. Cardiovascular: No chest pain, no lower extremity edema. No palpitations. No paroxysmal nocturnal dyspnea. No orthopnea. No lightheadedness or dizziness. No syncopal episodes. Abdominal: Large hematoma on the right side from retroperitoneal bleed. Genitourinary: No dysuria, increased frequency, urgency. No urinary retention. Musculoskeletal: No myalgias. No muscle weakness, no gait dysfunction, no frequent falls. No back pain. No neck pain. Integumentary: No wounds, no lesions. No rash or pruritus. No unusual bruising. No change in hair or nails. Neurologic: No aphasia. No facial droop. Noted change in mentation. Poor short-term memory. No head injury. No headache. No paralysis. No paresthesia. Psychiatric: No depression. No anxiety. No mood swings. Endocrine: Noted abnormal blood sugars. No weight change. PHYSICAL EXAMINATION Gen: This is this is an 86-year-old male. He is resting in recliner appears to be comfortable at rest. HEENT: Head is atraumatic, normocephalic. Pupils equal, round. Sclerae is anicteric. NECK: Supple. No JVD. No lymphadenopathy. No thyromegaly. LUNGS: Decreased breath sound bilaterally specially the right side positive for rhonchi and no crackles slight and exhalation wheezes. HEART: Irregular rhythm and rate positive S3 ABDOMEN: Soft positive bowel sounds large hematoma and with the right side. EXTREMITIES: No pedal edema. No calf tenderness. Dorsalis pedis is palpable bilaterally. NEUROLOGICAL: Patient is awake, alert and oriented x3. Cranial nerves 2 through 12 are grossly intact. ASSESSMENT AND PLAN 1. 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 2 large retroperitoneal hematoma: Consult trauma surgery, might need another CAT scan in the next 48 hours in the meanwhile keep watching for any significant drop in hemoglobin might be consistent with a large hematoma. Monitor CBC one more day. 3 aspiration pneumonia was treated last week and remain on antibiotics along with steroid patient remain on DuoNeb and Pulmicort as well. 2. COPD, with exacerbation with albuterol, Atrovent and budesonide still on steroid we will decrease prednisone down to 20 mg a day. 3. Acute blood loss anemia: No need for transfusion at this point he is down to 7.4. 4. Chronic atrial fibrillation, for which his doctor has discontinued anticoagulation, pulse rate has been well controlled this point with no tachycardia. 5. Diabetes mellitus 2 continue Accu-Chek with sliding scales coverage along with pioglitazone. Blood sugar is below 100. 6. Acute kidney injury: Most likely ATN from hypotension and hypoperfusion, hy dration repeat CMP in the next 24 hours. 7 BiPenia: With significant low platelet at 74,000 still have quite with anemia at 7.3 his white blood cells holding well differential was quite abnormal on a dmission this is could be from DIC related to with going on with the large hematoma continue to watch 7. BPH without LUTS we watch for any urinary retention, CODE STATUS: Full code. DISCHARGE PLAN [facility] of on Friday Impression and plan of care have been directed as dictated by the signing physician. Cindy Tobias nurse practitioner acting as scribe for signing physician. Objective - Vital Signs Vital signs: Vital Signs Temp 98.5 F 05/15/21 08:00 Pulse 77 05/15/21 08:00 Resp 16 05/15/21 08:00 BP 113/67 05/15/21 08:00 Pulse Ox 97 05/15/21 08:00 Intake & Output 05/14/21 05/15/21 05/15/21 18:59 06:59 18:59 Intake Total 180 620 360 Output Total 1150 600 525 Balance -970 20 -165 Weight 93 kg Intake: Oral 180 360 Blood Product 620 Rc As-1 Unit 310 [id number] Output: Urine 1150 600 525 Other: Voiding Method Indwelling Catheter Indwelling Catheter Indwelling Catheter - Labs CBC & Chem 7: 05/15/21 09:31 05/15/21 09:31 Labs: Abnormal Lab Results - Last 24 Hours (Table) 05/13/21 05/14/21 05/14/21 Range/Units 08:30 11:55 16:13 RBC 2.24 L (4.30-5.90) m/uL Hgb 7.0 L (13.0-17.5) gm/dL Hct 22.7 L (39.0-53.0) % MCV 101.3 H (80.0-100.0) fL MCHC (31.0-37.0) g/dL RDW 16.8 H (11.5-15.5) % Plt Count 62 L (150-450) k/uL Neutrophils # 9.0 H (1.3-7.7) k/uL Lymphocytes # 0.7 L (1.0-4.8) k/uL Chloride (98-107) mmol/L BUN (9-20) mg/dL Creatinine (0.66-1.25) mg/dL Glucose (74-99) mg/dL POC Glucose (mg/dL) 162 H (75-99) mg/dL Calcium (8.4-10.2) mg/dL Total Protein (6.3-8.2) g/dL Albumin (3.5-5.0) g/dL Crossmatch See Detail 05/14/21 05/14/21 05/15/21 Range/Units 16:50 19:45 05:44 RBC (4.30-5.90) m/uL Hgb (13.0-17.5) gm/dL Hct (39.0-53.0) % MCV (80.0-100.0) fL MCHC (31.0-37.0) g/dL RDW (11.5-15.5) % Plt Count (150-450) k/uL Neutrophils # (1.3-7.7) k/uL Lymphocytes # (1.0-4.8) k/uL Chloride (98-107) mmol/L BUN (9-20) mg/dL Creatinine (0.66-1.25) mg/dL Glucose (74-99) mg/dL POC Glucose (mg/dL) 228 H 189 H 160 H (75-99) mg/dL Calcium (8.4-10.2) mg/dL Total Protein (6.3-8.2) g/dL Albumin (3.5-5.0) g/dL Crossmatch 05/15/21 05/15/21 Range/Units 09:31 09:31 RBC 2.52 L (4.30-5.90) m/uL Hgb 7.7 L (13.0-17.5) gm/dL Hct 25.0 L (39.0-53.0) % MCV (80.0-100.0) fL MCHC 30.9 L (31.0-37.0) g/dL RDW 17.2 H (11.5-15.5) % Plt Count 56 L (150-450) k/uL Neutrophils # (1.3-7.7) k/uL Lymphocytes # (1.0-4.8) k/uL Chloride 112 H (98-107) mmol/L BUN 43 H (9-20) mg/dL Creatinine 1.42 H (0.66-1.25) mg/dL Glucose 153 H (74-99) mg/dL POC Glucose (mg/dL) (75-99) mg/dL Calcium 8.0 L (8.4-10.2) mg/dL Total Protein 4.7 L (6.3-8.2) g/dL Albumin 2.6 L (3.5-5.0) g/dL Crossmatch Microbiology - Last 24 Hours (Table) 05/13/21 08:30 Blood Culture - Preliminary Blood No Growth after 24 hours 05/13/21 08:46 Blood Culture - Preliminary Blood No Growth after 24 hours
[2021-05-15 16:48] LABS: Glucose,Whole Blood 224 mg/dL (75-99)
[2021-05-15 19:38] LABS: Glucose,Whole Blood 212 mg/dL (75-99)
[2021-05-15] MEDS: SERTRALINE 50 MG TAB PO SCH (20:23)
[2021-05-15] MEDS: allopurinoL 100 MG TAB PO SCH (20:23)
[2021-05-15] MEDS: MELATONIN 5 MG TABLET PO SCH (20:23)
[2021-05-16 05:57] LABS: Glucose,Whole Blood 157 mg/dL (75-99)
[2021-05-16] MEDS: INSULIN ASPART (NovoLOG) 100 UNIT/ML VIAL SQ SCH ×4 (06:31→20:11)
[2021-05-16 07:56] LABS: Anisocytosis Slight; HCT 24.4 % (39.0-53.0); HGB 7.8 gm/dL (13.0-17.5); MCH 31.3 pg (25.0-35.0); MCV 97.8 fL (80.0-100.0); Macrocytosis Slight; Mean Platelet Volume 13.3; RDW 17.6 % (11.5-15.5); WBC 6.7 k/uL (3.8-10.6)
[2021-05-16 07:59] LABS: Platelet Count 62 k/uL (150-450)
[2021-05-16] MEDS: BUDESONIDE 1 MG/2 ML NEBU INHALATION SCH ×2 (08:46→20:09)
[2021-05-16] MEDS: IPRATROPIUM-ALBUTEROL 3 ML NEB INHALATION SCH ×4 (08:46→20:09)
[2021-05-16] MEDS: FERROUS SULFATE 325 MG TAB PO SCH ×2 (10:17→17:34)
[2021-05-16] MEDS: FUROSEMIDE 20 MG TAB PO SCH (10:18)
[2021-05-16] MEDS: MULTIVITAMINS, THERA 1 EACH TAB PO SCH (10:18)
[2021-05-16] MEDS: AMOXICILLIN 500 MG CAP PO SCH ×2 (10:18→17:34)
[2021-05-16] MEDS: FAMOTIDINE 20 MG TAB PO SCH (10:18)
[2021-05-16] MEDS: OXYBUTYNIN 10 MG TAB.ER.24 PO SCH (10:18)
[2021-05-16] MEDS: predniSONE 10 MG TAB PO SCH (10:18)
[2021-05-16] MEDS: ASCORBIC ACID 500 MG TAB PO SCH (10:18)
[2021-05-16] MEDS: PIOGLITAZONE 15 MG TAB PO SCH (10:19)
--- NOTE | 2021-05-16 11:41 | P.DS ---
Providers Date of admission: 05/13/21 09:06 Expected date of discharge: 05/16/21 Attending physician: Kushal Elam Consults: 05/13/21 09:04 Consult Physician Routine Consulting Provider: [facility] Consult Reason/Comments: syncope Do you want consulting provider notified?: Yes Consult Physician Routine Consulting Provider: Jamel Dixon Consult Reason/Comments: abdominal hematoma, anemia Do you want consulting provider notified?: Yes Primary care physician: [facility] Course: HISTORY OF PRESENT ILLNESS This is a pleasant 86-year-old gentleman, with known history of atrial fibrillation, COPD, cancer, diabetes mellitus, deafness, recurrent pneumonia, BPH, CKD, admitted to emergency room secondary to cough and shortness of breath. Was diagnosed with aspiration pneumonia and was treated for gram-negative pneumonia. Patient wasn't hospital 05/07/20 and was discharged to [facility] for rehab. Patient apparently had a syncopal episode today according to his nurse in senior care he get up from his bed this morning and had syncopal episode fell on the floor did not have any seizure activity patient also is complaining of abdominal pain started since last night without any nausea or vomiting no chest pain he continued to complain of mild shortness of breath on and off and mild cough. Continued to have significant problem with short-term memory. Was transferred by EMS to the emergency department his white blood cell was 21.5 significantly higher than last time patient remain on steroid also his hemoglobin is down to 8.6 which baseline used to be around 10.5 his creatinine is is up with GFR down to 44 compared to his baseline as well. His Hemoccult was negative troponin is negative his EKG showed A. fib with RVR. Found large hematoma and ecchymosis in the right lower quadrant area CT of the abdomen and pelvis revealed large anterior pelvic hematoma with combination of intramuscular hematoma involving The left greater than the right rectus abdominis and extraperitoneal extension pushing on the bladder the whole area measures 09008 cm there is some additional extraperitoneal hemorrhage. With a hemoglobin dropped down over 2 g patient will be admitted consult trauma surgery as well not a clear whether patient had any trauma or this is just happen from the fall early this morning. 05/14: Patient is doing slightly better today is more awake alert surprisingly had significant drop in hemoglobin compared to yesterday, his retroperitoneal hemorrhage in the right side has expanded some still been watch via CAT scan. Informed by the nurse patient might have mild dysphagia or waiting for speech to see him before ordering full meal. Pain is with control patient still have mild shortness of breath. 05/15: Patient has been seen by general surgery this morning with plan for no surgical intervention continue to observe the patient. Cardiology is also following and no abnormalities on telemetry to suggest pauses as cause of his possible syncope. Cardiology is following on an as-needed basis with plan for follow-up in the office with Dr. Mills. Echocardiogram reveals EF of 55-60%, moderate mitral regurgitation, mild to moderate tricuspid regurgitation, mild pulmonary hypertension. He has been afebrile, heart rate 78, blood pressure 123/74, pulse ox 95% on room air. Plan to monitor patient overnight, recheck hemoglobin and if stable discharge back to [facility] tomorrow. Patient is verbalizing that he does not want to go back to the senior care and he wants to go home. We did have this issue with last admission and patient is not safe to return home with his . Social work is following. 05/16: Repeat hemoglobin is 7.8, platelet count 62. Blood sugars are running between 150 and 224. Orthostatics were positive and patient started on midodrine. Patient has ecchymosis is now spread to the lower abdomen area. Patient is eating and drinking, no acute distress and will be discharged back to the senior care today in stable condition. ASSESSMENT AND PLAN 1. Syncope: Not clear etiology but significant hypotension and significant anemia, 2 large retroperitoneal hematoma 3 aspiration pneumonia was treated last week 2. COPD, with exacerbation 3. Acute blood loss anemia 4. Chronic atrial fibrillation, for which his doctor has discontinued anticoagulation 5. Diabetes mellitus 2 6. Acute kidney injury: Most likely ATN from hypotension and hypoperfusion 7. Bicytopenia: With significant low platelet with 7. BPH DISCHARGE PLAN [facility] of on Friday Impression and plan of care have been directed as dictated by the signing physician. Cindy Tobias nurse practitioner acting as scribe for signing physician. Patient Condition at Discharge: Good Plan - Discharge Summary Discharge Rx Participant: No New Discharge Prescriptions: New INSULIN ASPART (NovoLOG) [NovoLOG (formulary)] 0 unit SQ ACHS ml Midodrine [ProAmatine] 5 mg PO BID #60 tablet predniSONE 10 mg PO DAILY@0800 #7 tab Continue Multivitamins, Thera [Multivitamin (formulary)] 1 tab PO DAILY@0800 Ferrous Sulfate [Feosol] 325 mg PO BID@0800,1800 Ascorbic Acid [Vitamin C] 500 mg PO DAILY@0800 allopurinoL [Zyloprim] 200 mg PO HS Sertraline [Zoloft] 50 mg PO HS guaiFENesin-DM 100-10MG/5ML [Robitussin DM] 10 ml PO BID PRN PRN Reason: Cough Budesonide [Pulmicort] 1 mg INHALATION RT-BID@0800,1800 Melatonin 10 mg PO HS Pioglitazone [Actos] 15 mg PO DAILY@0800 Amoxicillin 500 mg PO BID@0800,1800 Furosemide [Lasix] 20 mg PO DAILY@0800 Ipratropium-Albuterol Nebulize [Duoneb 0.5 mg-3 mg/3 ml Soln] 3 ml INHALATION RT-QID@08,12,18, Oxybutynin Chloride [Oxybutynin Chloride ER] 10 mg PO DAILY Albuterol Inhaler [Ventolin Hfa Inhaler] 2 puff INHALATION RT-QID@,,, Discontinued predniSONE [Deltasone] 40 mg PO DAILY@0800 Discharge Medication List Ferrous Sulfate [Feosol] 325 mg PO BID@0800,1800 03/25/14 [History] Multivitamins, Thera [Multivitamin (formulary)] 1 tab PO DAILY@0800 03/25/14 [History] Ascorbic Acid [Vitamin C] 500 mg PO DAILY@0800 11/21/16 [History] Sertraline [Zoloft] 50 mg PO HS 01/25/20 [History] allopurinoL [Zyloprim] 200 mg PO HS 01/25/20 [History] guaiFENesin-DM 100-10MG/5ML [Robitussin DM] 10 ml PO BID PRN 04/29/21 [History] Albuterol Inhaler [Ventolin Hfa Inhaler] 2 puff INHALATION RT-QID@,,,05/13/21 [History] Amoxicillin 500 mg PO BID@0800,1800 05/13/21 [History] Budesonide [Pulmicort] 1 mg INHALATION RT-BID@0800,1800 05/13/21 [History] Furosemide [Lasix] 20 mg PO DAILY@0800 05/13/21 [History] Ipratropium-Albuterol Nebulize [Duoneb 0.5 mg-3 mg/3 ml Soln] 3 ml INHALATION RT-QID@08,12,18,20 05/13/21 [History] Melatonin 10 mg PO HS 05/13/21 [History] Oxybutynin Chloride [Oxybutynin Chloride ER] 10 mg PO DAILY 05/13/21 [History] Pioglitazone [Actos] 15 mg PO DAILY@0800 05/13/21 [History] INSULIN ASPART (NovoLOG) [NovoLOG (formulary)] 0 unit SQ ACHS ml 05/16/21 [Rx] Midodrine [ProAmatine] 5 mg PO BID #60 tablet 05/16/21 [Rx] predniSONE 10 mg PO DAILY@0800 #7 tab 05/16/21 [Rx] Follow up Appointment(s)/Referral(s): Eliceo Mills MD [STAFF PHYSICIAN] - 2 Weeks Darvin Hurd DO [Primary Care Provider] - 1 Week (after discharge from [facility]) Discharge Disposition: TRANSFER TO SNF/ECF
--- NOTE | 2021-05-16 11:51 | P.PN ---
Subjective Progress Note Date: 05/16/21 CHIEF COMPLAINT: Possible syncope HISTORY OF PRESENT ILLNESS: Surgical service is following regards to patient's abdominal wall hematoma. Patient did require blood transfusion during this admission. His hemoglobin has gone up to 7.8. He denies any abdominal pain. They're planning discharge today. He is tolerating diet. Afebrile. Patient seen and examined with Dr. howard PHYSICAL EXAM: VITAL SIGNS: Reviewed. GENERAL: Well-developed in no acute distress. HEENT: No sclera icterus. Extraocular movements grossly intact. Moist buccal mucosa. Head is atraumatic, normocephalic. ABDOMEN: Soft. Nondistended. Nontender NEUROLOGIC: Alert and oriented. Cranial nerves II through XII grossly intact. ASSESSMENT: 1. Large anterior pelvic hematoma and a rectus sheath hematoma PLAN: -No surgical intervention planned -Patient can be discharge from surgical standpoint Physician Issue Clerk note has been reviewed by physician. Signing provider agrees with the documented findings, assessment, and plan of care. Objective - Vital Signs Vital signs: Vital Signs Temp 97.9 F 05/16/21 08:45 Pulse 83 05/16/21 08:59 Resp 16 05/16/21 08:45 BP 113/70 05/16/21 08:45 Pulse Ox 93 L 05/16/21 08:49 Intake & Output 05/15/21 05/16/21 05/16/21 18:59 06:59 18:59 Intake Total 1080 100 360 Output Total 525 Balance 555 100 360 Weight 90.5 kg Intake: Oral 1080 100 360 Output: Urine 525 Other: Voiding Method Indwelling Catheter Indwelling Catheter Indwelling Catheter # Voids 1 - Labs CBC & Chem 7: 05/16/21 07:22 05/15/21 09:31 Labs: Abnormal Lab Results - Last 24 Hours (Table) 05/13/21 05/15/21 05/15/21 Range/Units 08:30 11:49 16:46 RBC (4.30-5.90) m/uL Hgb (13.0-17.5) gm/dL Hct (39.0-53.0) % RDW (11.5-15.5) % Plt Count (150-450) k/uL POC Glucose (mg/dL) 295 H 224 H (75-99) mg/dL Crossmatch See Detail 0905/16/21 05/16/21 Range/Units 19:36 05:55 07:22 RBC 2.50 L (4.30-5.90) m/uL Hgb 7.8 L (13.0-17.5) gm/dL Hct 24.4 L (39.0-53.0) % RDW 17.6 H (11.5-15.5) % Plt Count 62 L (150-450) k/uL POC Glucose (mg/dL) 212 H 157 H (75-99) mg/dL Crossmatch Microbiology - Last 24 Hours (Table) 05/13/21 08:46 Blood Culture - Preliminary Blood No Growth after 72 hours 05/13/21 08:30 Blood Culture - Preliminary Blood No Growth after 72 hours
[2021-05-16 12:11] VITALS: RESP 18
[2021-05-16 12:13] LABS: Glucose,Whole Blood 150 mg/dL (75-99)
[2021-05-16 16:37] LABS: Glucose,Whole Blood 221 mg/dL (75-99)
[2021-05-16] MEDS ORDERED: MIDODRINE 5 MG TAB PO SCH (17:30)
[2021-05-16 20:11] VITALS: BP 122/78; PULSE 95; TEMP 97.8
[2021-05-16 20:11] LABS: Glucose,Whole Blood 298 mg/dL (75-99)
[2021-05-16] MEDS: allopurinoL 100 MG TAB PO SCH (20:11)
[2021-05-16] MEDS: SERTRALINE 50 MG TAB PO SCH (20:11)
== END 2021-05-16 21:26 | DRG 393 ==
LOC: EC 05:52 → 4SSUR 09:06 → 3SCARD 09:14
PROVIDERS: ADMIT Internal Medicine Geriatric Medicine; ATTEND Internal Medicine Geriatric Medicine
PROC: 30233P1 Transfusion of Nonautologous Frozen Red Cells into Peripheral Vein, Percutaneous Approach (ICD-10-PCS; principal; 2021-05-14)
DX: K66.1 Hemoperitoneum (principal); N17.0 Acute kidney failure with tubular necrosis; J98.11 Atelectasis; J44.1 Chronic obstructive pulmonary disease with (acute) exacerbation; D62 Acute posthemorrhagic anemia; I48.19 Other persistent atrial fibrillation; M79.81 Nontraumatic hematoma of soft tissue; M13.0 Polyarthritis, unspecified; N18.30 Chronic kidney disease, stage 3 unspecified; N40.0 Benign prostatic hyperplasia without lower urinary tract symptoms; W18.30XA Fall on same level, unspecified, initial encounter; Z91.81 History of falling; Z79.01 Long term (current) use of anticoagulants; E11.22 Type 2 diabetes mellitus with diabetic chronic kidney disease; D69.6 Thrombocytopenia, unspecified; E86.0 Dehydration; F32.9 Major depressive disorder, single episode, unspecified; I95.9 Hypotension, unspecified; Z20.822 Contact with and (suspected) exposure to COVID-19; Z85.841 Personal history of malignant neoplasm of brain; I27.20 Pulmonary hypertension, unspecified; I12.9 Hypertensive chronic kidney disease with stage 1 through stage 4 chronic kidney disease, or unspecified chronic kidney disease; H54.61 Unqualified visual loss, right eye, normal vision left eye; H91.93 Unspecified hearing loss, bilateral; I08.1 Rheumatic disorders of both mitral and tricuspid valves; I44.7 Left bundle-branch block, unspecified; M10.9 Gout, unspecified; D72.829 Elevated white blood cell count, unspecified; Z79.4 Long term (current) use of insulin; Z79.899 Other long term (current) drug therapy; Z87.01 Personal history of pneumonia (recurrent); Z87.891 Personal history of nicotine dependence; Z90.5 Acquired absence of kidney; Z92.3 Personal history of irradiation; Z98.890 Other specified postprocedural states
CPT/HCPCS: 36415; 70450; 71046; 72125; 74176; 80053; 81001; 82272; 83735; 84484; 85025; 85027; 85610; 85730; 86850; 86900; 86901; 86920; 87040; 87635; 93005; 93306; 94640; 94760; 96361; 96374; 99285

== ENCOUNTER 2021-09-11 17:46 | Emergency (ER) | payer MEDICARE ==
[2021-09-11 17:57] VITALS: TEMP 98
[2021-09-11] MEDS ORDERED: SODIUM CHLORIDE 0.9% 1,000 ML IV STA (18:09)
[2021-09-11] MEDS ORDERED: ACETAMINOPHEN TAB 325 MG TAB PO STA (18:09)
--- NOTE | 2021-09-11 18:59 | CT ---
EXAMINATION TYPE: CT brain cspine wo con DATE OF EXAM: 09/11/2021 COMPARISON: 05/13/2021 HISTORY: Fall, left sided head injury. CT DLP: 1520.2 mGycm Automated exposure control for dose reduction was used. Images of the brain and cervical spine obtained without contrast. There is right frontal temporal craniotomy defect. There is increased attenuation in the subdural spa ce over the right temporal lobe convexity. This has mixed attenuation and measures up to 9 mm in thic kness and consistent with acute on chronic subdural hemorrhage. There is cerebral atrophy. There is moderate patchy hypodensity in the white matter of both frontal l obes. There is no midline shift. The cervical vertebra have normal alignment. There is some degenerative disc space narrowing in the l ower cervical spine. No compression fracture seen. Skull base is intact. There is multilevel hypertro phic facet arthropathy in the mid cervical spine. IMPRESSION: Spondylotic changes in the cervical spine with degenerative disc space narrowing and spur formation n ot significantly different than old exam. There is narrowing of the spinal canal at the C1 level due to thickening and calcification in the transverse ligament. No change. There is acute on chronic subdural hemorrhage in the right temporal and parietal lobe which is new co mpared to old exam. There is cerebral atrophy and chronic small vessel ischemia. Encephalomalacia in the white matter both frontal lobes. Exam was discussed with emergency room staff at 7:00 PM
--- NOTE | 2021-09-11 19:09 | ED ---
General Adult HPI - General Chief complaint: Fall Stated complaint: Fall Time Seen by Provider: 09/11/21 17:59 Source: EMS, RN notes reviewed, old records reviewed Mode of arrival: EMS Limitations: altered mental status - History of Present Illness Initial comments: Patient is an 86-year-old male with past medical history remarkable for atrial fibrillation milligrams blood thinners, COPD, diabetes, hypertension, dementia, prostate disorder with chronic for catheter in place who presents emergency Department following a fall with questionable LOC. Patient describes losing his balance and falling forward. He is a poor historian. Patient has been having worsening dementia over the last year or so, and is been having increased falling and mild weakness as well. He was diagnosed with possible Parkinson's as well as dementia and recent admissions to the hospital. He is no longer on anticoagulation due to his multiple falls and increased risk for his atrial fibrillation. Patient's family is at bedside and says with history. They state he is currently at his baseline mental status. Unknown LOC after the fall. Patient is currently only complaining of left knee pain. There is no obvious neurological deficits. Family states that he had some sort of brain mass previously, and had brain surgery for it 15 or 20 years ago. No other relevant history at this time. Patient was not made a trauma activation, as it was a fall from height at ground level is not on anticoagulate or platelet inhibitors. - Related Data Home Medications Medication Instructions Recorded Confirmed Ferrous Sulfate [Feosol] 325 mg PO BID@0800,1800 03/25/14 05/13/21 Multivitamins, Thera [Multivitamin 1 tab PO DAILY@0800 03/25/14 05/13/21 (formulary)] Ascorbic Acid [Vitamin C] 500 mg PO DAILY@0800 11/21/16 05/13/21 Sertraline [Zoloft] 50 mg PO HS 01/25/20 05/13/21 allopurinoL [Zyloprim] 200 mg PO HS 01/25/20 05/13/21 guaiFENesin-DM 100-10MG/5ML 10 ml PO BID PRN 04/29/21 05/13/21 [Robitussin DM] Albuterol Inhaler [Ventolin Hfa 2 puff INHALATION 05/13/21 05/13/21 Inhaler] RT-QID@05,,17,23 Amoxicillin 500 mg PO BID@0800,1800 05/13/21 05/13/21 Budesonide [Pulmicort] 1 mg INHALATION RT-BID@0800,1800 05/13/21 05/13/21 Furosemide [Lasix] 20 mg PO DAILY@0800 05/13/21 05/13/21 Ipratropium-Albuterol Nebulize 3 ml INHALATION RT-QID@08,12,18,20 05/13/21 05/13/21 [Duoneb 0.5 mg-3 mg/3 ml Soln] Melatonin 10 mg PO HS 05/13/21 05/13/21 Oxybutynin Chloride [Oxybutynin 10 mg PO DAILY 05/13/21 05/13/21 Chloride ER] Pioglitazone [Actos] 15 mg PO DAILY@0800 05/13/21 05/13/21 Previous Rx's Medication Instructions Recorded INSULIN ASPART (NovoLOG) [NovoLOG 0 unit SQ ACHS ml 05/16/21 (formulary)] Midodrine [ProAmatine] 5 mg PO BID #60 tablet 05/16/21 predniSONE 10 mg PO DAILY@0800 #7 tab 05/16/21 Allergies Allergy/AdvReac Type Severity Reaction Status Date / Time No Known Allergies Allergy Verified 05/13/21 09:01 Review of Systems ROS Statement: Those systems with pertinent positive or pertinent negative responses have been documented in the HPI. Review of Systems: CONST: Denies fever EYES: Denies blurry vision ENT: Denies nasal congestion C/V: Denies Chest pain RESP: Denies shortness of breath GI: Denies abdominal pain : Denies dysuria SKIN: Denies rash. MSK: Endorses left knee pain NEURO: Denies headache ROS Other: All systems not noted in ROS Statement are negative. Past Medical History Past Medical History: Atrial Fibrillation, Cancer, COPD, Diabetes Mellitus, Eye Disorder, Hearing Disorder / Deafness, Hypertension, Pneumonia, Prostate Disorder, Renal Disease Additional Past Medical History / Comment(s): Pt recently admitted to [facility] on 01/25/20 with a mechanical fall/hematoma R buttock and acute blood loss anemia. Other hx: 2010 Brain cancer with surgery and radiation, L nephrectomy d/t deteriorating kidney, CKD stage III, BPH, chronic thrombocytopenia, chronic anemia, diet controlled diabetes, generalized arthritis, L2 compression fracture, blind R eye, [place] blaterally, seasonal allergies. 05/14/21 admitted with abdominal hematoma History of Any Multi-Drug Resistant Organisms: None Reported Additional Past Surgical History / Comment(s): L nephrectomy, brain tumor removal, bilateral cataract removals, colonoscopy. Past Anesthesia/Blood Transfusion Reactions: No Reported Reaction Additional Past Anesthesia/Blood Transfusion Reaction / Comment(s): Pt has received blood in past without reaction. Past Psychological History: Depression Smoking Status: Former smoker Past Alcohol Use History: None Reported Past Drug Use History: None Reported - Past Family History Father Family Medical History: No Reported History Additional Family Medical History / Comment(s): Father was healthy. He at the age of 62yrs in a MVA. Mother Additional Family Medical History / Comment(s): Mother at the age of 86yrs of "heart problems." Brother(s) Additional Family Medical History / Comment(s): Patient has 3 brothers and one is passed from old age. Patient has 4 sisters with no major medical problems. Patient had 2 children one from muscular dystrophy and one is alive with no major medical problems. General Exam - General Exam Comments Initial Comments: General: Appears in no acute distress. HEAD: There is a small hematoma over the left parietal scalp with a small abrasion/laceration present. Is not actively bleeding. No step-offs or deformities of the skull. No hemotympanum. No valera sign, no raccoon eyes. EYES: PERRLA, EOMI, conjunctiva normal, no discharge. ENT: Hearing grossly intact, normal oropharynx. RESPIRATORY: Clear breath sounds bilaterally. No wheezes, rales, or rhonchi. C/V: Regular rate and rhythm. S1 and S2 auscultated, no edema, peripheral p ulses 2+ and intact throughout ABD: Abd is soft, nontender, nondistended EXT: Normal range of motion, no obvious deformity SKIN: Abrasion over left elbow. Abrasion/hematoma over left parietal scalp NEURO: Alert and oriented times one to 2 which is his baseline per family. Illness to the 12 are intact. No focal sensory or strength deficits. He does have chronic tremors. NIH is 0 at this time. GCS is 15. Limitations: altered mental status Course Vital Signs 09/11/21 09/11/21 17:51 19:26 Temperature 98.0 F Pulse Rate 89 68 Respiratory 16 18 Rate Blood Pressure 137/81 123/77 O2 Sat by Pulse 95 94 L Oximetry Procedures - Laceration Laceration #1 Consent Obtained: verbal consent Indication: laceration Site: scalp Size (cm): 4 (Stapled shut with 5 jessica) Description: linear Complications: pain Patient Tolerated Procedure: well Medical Decision Making - Medical Decision Making Based on the patient's presentation and physical exam, patient does not meet criteria for trauma activation at this time. We will obtain laboratory studies, addition to CT brain, C-spine, plain films of the chest and pelvis as well as left knee and left elbow. Patient declines analgesia at this time. He'll be given a 1 L fluid bolus. The EKG showed atrial fibrillation that is rate controlled with no acute signs of ischemia. CT brain revealed an acute on chronic subdural hemorrhage in the right temporal and parietal lobe. No signs of shift at this time. There are old chronic changes in the cervical spine without any acute fracture or subluxation. Patient's chest x-ray showed no acute cardiopulmonary process. P elvic x-ray shows no fracture or subluxation. X-ray shows a arthritis with no acute fracture or subluxation. Elbow x-ray shows no acute abnormality of the left elbow.Laboratory studies are still pending at this time. I was notified by radiology of the subdural hemorrhage. I updated the family an d notified them that patient requires transfer to a center with neurosurgery care. They're in agreement this plan. Neurological exam at this time is unchanged and within normal limits.Laboratory studies are remarkable for a normocytic anemia with a hemoglobin of 9.4. Patient does have a, cytopenia of 60. This does appear to be chronic. Patient is an AK I with an elevated creatinine 2.3 and BUN of 44. Troponin is negative. Remainder the labs are unremarkable. HOB elevated to 30 degrees. At this time, I was able to find a transfer destination. The patient, [facility] accepted the patient transfer. Accepting physician is Dr. Beltran. Patient will therefore be transferred in serious condition. They do have neurosurgery. Due to patient's, cytopenia, we will give him a unit of platelets since he has a [employer]PUT[employer] bleed. This was ordered and will be hung prior to transfer. I did staple the patient's laceration on his head. Patient has remained stable with stable vital signs and neurological exam is normal for him since arrival to the emergency department until he was transfer red. - Lab Data Result diagrams: 09/11/21 19:19 09/11/21 19:19 Lab Results 09/11/21 09/11/21 09/11/21 Range/Units 19:19 19:19 19:19 WBC 4.8 (3.8-10.6) k/uL RBC 3.02 L (4.30-5.90) m/uL Hgb 9.4 L (13.0-17.5) gm/dL Hct 29.4 L (39.0-53.0) % MCV 97.3 (80.0-100.0) fL MCH 31.0 (25.0-35.0) pg MCHC 31.9 (31.0-37.0) g/dL RDW 16.4 H (11.5-15.5) % Plt Count 60 L (150-450) k/uL MPV 13.2 Neutrophils % 77 % Lymphocytes % 12 % Monocytes % 6 % Eosinophils % 1 % Basophils % 0 % Neutrophils # 3.7 (1.3-7.7) k/uL Lymphocytes # 0.6 L (1.0-4.8) k/uL Monocytes # 0.3 (0-1.0) k/uL Eosinophils # 0.0 (0-0.7) k/uL Basophils # 0.0 (0-0.2) k/uL Hypochromasia Slight Anisocytosis Slight PT 10.7 (9.0-12.0) sec INR 1.0 (<1.2) APTT 23.2 (22.0-30.0) sec Sodium 138 (137-145) mmol/L Potassium 5.0 (3.5-5.1) mmol/L Chloride 109 H (98-107) mmol/L Carbon Dioxide 20 L (22-30) mmol/L Anion Gap 9 mmol/L BUN 44 H (9-20) mg/dL Creatinine 2.38 H (0.66-1.25) mg/dL Est GFR (CKD-EPI)AfAm 28 (>60 ml/min/1.73 sqM) Est GFR (CKD-EPI)NonAf 24 (>60 ml/min/1.73 sqM) Glucose 143 H (74-99) mg/dL Plasma Lactic Acid Ralph (0.7-2.0) mmol/L Calcium 8.3 L (8.4-10.2) mg/dL Total Bilirubin 0.5 (0.2-1.3) mg/dL AST 30 (17-59) U/L ALT 28 (4-49) U/L Alkaline Phosphatase 85 (38-126) U/L Troponin I (0.000-0.034) ng/mL Total Protein 5.8 L (6.3-8.2) g/dL Albumin 3.5 (3.5-5.0) g/dL Serum Alcohol <10 mg/dL 09/11/21 09/11/21 Range/Units 19:19 19:19 WBC (3.8-10.6) k/uL RBC (4.30-5.90) m/uL Hgb (13.0-17.5) gm/dL Hct (39.0-53.0) % MCV (80.0-100.0) fL MCH (25.0-35.0) pg MCHC (31.0-37.0) g/dL RDW (11.5-15.5) % Plt Count (150-450) k/uL MPV Neutrophils % % Lymphocytes % % Monocytes % % Eosinophils % % Basophils % % Neutrophils # (1.3-7.7) k/uL Lymphocytes # (1.0-4.8) k/uL Monocytes # (0-1.0) k/uL Eosinophils # (0-0.7) k/uL Basophils # (0-0.2) k/uL Hypochromasia Anisocytosis PT (9.0-12.0) sec INR (<1.2) APTT (22.0-30.0) sec Sodium (137-145) mmol/L Potassium (3.5-5.1) mmol/L Chloride (98-107) mmol/L Carbon Dioxide (22-30) mmol/L Anion Gap mmol/L BUN (9-20) mg/dL Creatinine (0.66-1.25) mg/dL Est GFR (CKD-EPI)AfAm (>60 ml/min/1.73 sqM) Est GFR (CKD-EPI)NonAf (>60 ml/min/1.73 sqM) Glucose (74-99) mg/dL Plasma Lactic Acid Ralph 0.8 (0.7-2.0) mmol/L Calcium (8.4-10.2) mg/dL Total Bilirubin (0.2-1.3) mg/dL AST (17-59) U/L ALT (4-49) U/L Alkaline Phosphatase (38-126) U/L Troponin I <0.012 (0.000-0.034) ng/mL Total Protein (6.3-8.2) g/dL Albumin (3.5-5.0) g/dL Serum Alcohol mg/dL - EKG Data -: EKG Interpreted by Me EKG Comments: 12-lead Electrocardiogram Interpretation Note EKG was reviewed and interpreted by myself. 12-lead ECG performed at 1757 is interpreted by me as revealing atrial fibrillation at a rate of 79 beats per minute. Right axis deviation. VT interval is unobtainable, QRS duration is 132 ms, QTc is 497 ms.. There were no ST or T wave abnormalities to suggest myocardial ischemia or injury. Patient is a history of left bundle-branch block which is present currently. R wave progression across the precordium was satisfactory. By my interpretation this EKG is non-diagnostic for acute ischemia. Critical Care Time Critical Care Time: Yes Total Critical Care Time: 35 Critical Care Time: Upon my evaluation, this patient had a high probability of imminent or life-thre atening deterioration due to acute on chronic subdural hematoma, traumatic, which required my direct attention, intervention, and personal management. I have personally provided 35 minutes of critical care time exclusive of time spent on separately billable procedures. Time includes review of laboratory data, radiology results, discussion with consultants, and monitoring for potential decompensation. Interventions were performed as documented in my note. Disposition Clinical Impression: Subdural hematoma, Fall, Abrasion Disposition: OTHER INSTITUTION NOT DEFINED Condition: Serious Referrals: Darvin Hurd DO [Primary Care Provider] - 1-2 days - Out of Hospital Transfer - Req. Specs Out of Hospital Transfer - Requested Specifics: Other Emergency Center (Transferred for escalation of care to [facility] for Neurosurgical care.)
--- NOTE | 2021-09-11 19:19 | XR ---
EXAMINATION TYPE: XR chest 1V portable DATE OF EXAM: 09/11/2021 COMPARISON: NONE HISTORY: 05/13/2021 TECHNIQUE: Single view FINDINGS: Heart is enlarged. There is no heart failure. There are chest leads. IMPRESSION: Cardiomegaly. No acute lung disease. Inspiration is improved compared to last exam.
--- NOTE | 2021-09-11 19:20 | XR ---
EXAMINATION TYPE: XR pelvis AP view DATE OF EXAM: 09/11/2021 COMPARISON: 12/27/2020 HISTORY: Pain TECHNIQUE: Single view FINDINGS: Pelvic ring appears intact. Proximal femurs and hip joints are intact. Exam limited by malorie ent size. Sacroiliac joints are intact. IMPRESSION: No fracture. No change.
--- NOTE | 2021-09-11 19:21 | XR ---
EXAMINATION TYPE: XR knee complete LT DATE OF EXAM: 09/11/2021 COMPARISON: 04/13/2021 HISTORY: Pain TECHNIQUE: 3 views FINDINGS: There is moderate narrowing of the medial joint space. There is no fracture nor dislocation . There is spurring of the medial femoral and tibial condyles. There is spurring on the patella. IMPRESSION: Moderate osteoarthritis. No fracture. No change.
--- NOTE | 2021-09-11 19:23 | XR ---
EXAMINATION TYPE: XR elbow complete LT DATE OF EXAM: 09/11/2021 COMPARISON: NONE HISTORY: Pain TECHNIQUE: 3 views FINDINGS: I see no fracture nor dislocation. There is minor spurring on the radial head. There is no sign of a joint effusion. IMPRESSION: No acute abnormality of the left elbow.
[2021-09-11 19:30] LABS: Anisocytosis Slight; Basophils % (A) 0 %; Eosinophils % (A) 1 %; HCT 29.4 % (39.0-53.0); HGB 9.4 gm/dL (13.0-17.5); Hypochromasia Slight; Lymphocytes # (A) 0.6 k/uL (1.0-4.8); Lymphocytes % (A) 12 %; MCHC 31.9 g/dL (31.0-37.0); MCV 97.3 fL (80.0-100.0); Mean Platelet Volume 13.2; Monocytes # (A) 0.3 k/uL (0-1.0); Monocytes % (A) 6 %; Neutrophils # (A) 3.7 k/uL (1.3-7.7); Neutrophils % (A) 77 %; RBC 3.02 m/uL (4.30-5.90); RDW 16.4 % (11.5-15.5); WBC 4.8 k/uL (3.8-10.6)
[2021-09-11 19:39] LABS: ALT 28 U/L (4-49); AST 30 U/L (17-59); African American GFR (CKD) 28 (>60 ml/min/1.73 sqM); Albumin 3.5 g/dL (3.5-5.0); Alcohol <10 mg/dL; Alkaline Phosphatase 85 U/L (38-126); Anion Gap 9 mmol/L; Blood Urea Nitrogen 44 mg/dL (9-20); Calcium 8.3 mg/dL (8.4-10.2); Carbon Dioxide 20 mmol/L (22-30); Chloride 109 mmol/L (98-107); Glucose 143 mg/dL (74-99); Non-African American GFR(CKD) 24 (>60 ml/min/1.73 sqM); Sodium 138 mmol/L (137-145); Total Bilirubin 0.5 mg/dL (0.2-1.3); Total Protein 5.8 g/dL (6.3-8.2)
[2021-09-11 19:42] LABS: Partial Thromboplastin Time 23.2 sec (22.0-30.0); Prothrombin Time 10.7 sec (9.0-12.0)
[2021-09-11 19:54] LABS: Platelet Count 60 k/uL (150-450)
[2021-09-11] MEDS ORDERED: levETIRAcetam IV 1,000 MG in SALINE 1 100ML.BAG IVPB STA (20:05)
[2021-09-11 23:16] VITALS: BP 142/76; PULSE 93; RESP 16
== END 2021-09-11 22:00 | disposition other institution (70) ==
LOC: EC 17:46
DX: S06.5X9A Traumatic subdural hemorrhage with loss of consciousness of unspecified duration, initial encounter (principal); S01.01XA Laceration without foreign body of scalp, initial encounter; S50.312A Abrasion of left elbow, initial encounter; E11.22 Type 2 diabetes mellitus with diabetic chronic kidney disease; I12.9 Hypertensive chronic kidney disease with stage 1 through stage 4 chronic kidney disease, or unspecified chronic kidney disease; N18.30 Chronic kidney disease, stage 3 unspecified; I48.91 Unspecified atrial fibrillation; J44.9 Chronic obstructive pulmonary disease, unspecified; M19.90 Unspecified osteoarthritis, unspecified site; F03.90 Unspecified dementia, unspecified severity, without behavioral disturbance, psychotic disturbance, mood disturbance, and anxiety; F32.A Depression, unspecified; Z79.4 Long term (current) use of insulin; Z79.51 Long term (current) use of inhaled steroids; Z79.52 Long term (current) use of systemic steroids; Z87.891 Personal history of nicotine dependence; Z79.84 Long term (current) use of oral hypoglycemic drugs; Z79.899 Other long term (current) drug therapy; W18.39XA Other fall on same level, initial encounter
CPT/HCPCS: 36415; 93005; 86900; 86901; 80053; 83605; 84484; 85025; 85610; 85730; 86850; 86870; 86880; 72170; 73080; 73562; 71045; 72125; 70450; 99291; 12002; 96374; 96361; G0480; J1953; 80320

== ENCOUNTER → 2021-10-12 | Outpatient (CLI) | payer MEDICARE ==
--- NOTE | 2021-10-12 12:00 | FL ---
Modified barium swallow. HISTORY: Dysphagia. Modified barium swallow was performed with the department of speech pathology. The patient was prese nted with various consistencies of barium. There is no evidence for aspiration . Minimal transient penetration noted. Full report is to follow f rom the department of speech pathology. Impression: No evidence for aspiration at this time.
== END | disposition home or self-care (01) ==
LOC: RADFLMAIN 11:09
PROVIDERS: ATTEND Family Medicine
DX: R13.10 Dysphagia, unspecified (principal)
CPT/HCPCS: 74230

== ENCOUNTER 2021-11-02 03:28 | Emergency (ER) | payer MEDICARE ==
[2021-11-02 03:39] VITALS: RESP 16
[2021-11-02 04:27] LABS: Basophils % (A) 1 %; Eosinophils # (A) 0.1 k/uL (0-0.7); Eosinophils % (A) 1 %; HCT 35.9 % (39.0-53.0); HGB 11.4 gm/dL (13.0-17.5); Lymphocytes # (A) 1.3 k/uL (1.0-4.8); Lymphocytes % (A) 23 %; MCH 31.8 pg (25.0-35.0); MCHC 31.8 g/dL (31.0-37.0); Macrocytosis Slight; Mean Platelet Volume 13.7; Monocytes # (A) 0.3 k/uL (0-1.0); Monocytes % (A) 5 %; Neutrophils # (A) 3.8 k/uL (1.3-7.7); Neutrophils % (A) 68 %; RBC 3.59 m/uL (4.30-5.90); RDW 15.8 % (11.5-15.5); WBC 5.5 k/uL (3.8-10.6)
[2021-11-02 04:41] LABS: Albumin 3.4 g/dL (3.5-5.0); Appearance,Urine Turbid (Clear); Bacteria,Urine Moderate /hpf; Bilirubin,Urine Negative (Negative); Blood,Urine Large (Negative); Calcium 8.6 mg/dL (8.4-10.2); Color,Urine Yellow; Glucose,Urine (UA) Negative (Negative); Ketones,Urine Negative (Negative); Leukocyte Esterase,Urine Large (Negative); Mucus,Urine Rare /hpf; Nitrite,Urine Negative (Negative); Potassium 4.1 mmol/L (3.5-5.1); Protein,Urine 2+ (Negative); RBC,Urine 97 /hpf (0-5); Specific Gravity,Urine 1.019 (1.001-1.035); Squamous Epithelial Cell,Urine 2 /hpf (0-4); Total Protein 5.9 g/dL (6.3-8.2); Urobilinogen,Urine <2.0 mg/dL (<2.0); WBC,Urine >182 /hpf (0-5)
[2021-11-02 04:43] LABS: Total Bilirubin 0.6 mg/dL (0.2-1.3)
[2021-11-02 04:56] LABS: Platelet Count 65 k/uL (150-450)
[2021-11-02 04:57] LABS: Large Platelets Present
[2021-11-02 04:58] LABS: Anisocytosis (M) Present
--- NOTE | 2021-11-02 06:47 | ED ---
Abdominal Pain HPI - General Chief Complaint: Abdominal Pain Stated Complaint: Stomach Pain Time Seen by Provider: 11/02/21 03:57 Source: patient, EMS Limitations: no limitations - History of Present Illness MD Complaint: abdominal pain -: days(s) Location: suprapubic Radiation: none Migration to: no migration Severity: moderate Quality: aching, sharp Consistency: intermittent Improves With: nothing Worsens With: nothing Associated Symptoms: denies other symptoms - Related Data Home Medications Medication Instructions Recorded Confirmed Ferrous Sulfate [Feosol] 325 mg PO BID@0800,1800 03/25/14 05/13/21 Multivitamins, Thera [Multivitamin 1 tab PO DAILY@0800 03/25/14 05/13/21 (formulary)] Ascorbic Acid [Vitamin C] 500 mg PO DAILY@0800 11/21/16 05/13/21 Sertraline [Zoloft] 50 mg PO HS 01/25/20 05/13/21 allopurinoL [Zyloprim] 200 mg PO HS 01/25/20 05/13/21 guaiFENesin-DM 100-10MG/5ML 10 ml PO BID PRN 04/29/21 05/13/21 [Robitussin DM] Albuterol Inhaler [Ventolin Hfa 2 puff INHALATION 05/13/21 05/13/21 Inhaler] RT-QID@,,, Amoxicillin 500 mg PO BID@0800,1800 05/13/21 05/13/21 Budesonide [Pulmicort] 1 mg INHALATION RT-BID@0800,1800 05/13/21 05/13/21 Furosemide [Lasix] 20 mg PO DAILY@0800 05/13/21 05/13/21 Ipratropium-Albuterol Nebulize 3 ml INHALATION RT-QID@08,12,18,05/13/21 05/13/21 [Duoneb 0.5 mg-3 mg/3 ml Soln] Melatonin 10 mg PO HS 05/13/21 05/13/21 Oxybutynin Chloride [Oxybutynin 10 mg PO DAILY 05/13/21 05/13/21 Chloride ER] Pioglitazone [Actos] 15 mg PO DAILY@0800 05/13/21 05/13/21 Previous Rx's Medication Instructions Recorded INSULIN ASPART (NovoLOG) [NovoLOG 0 unit SQ ACHS ml 05/16/21 (formulary)] Midodrine [ProAmatine] 5 mg PO BID #60 tablet 05/16/21 predniSONE 10 mg PO DAILY@0800 #7 tab 05/16/21 Ciprofloxacin HCl [Cipro] 500 mg PO Q12HR #14 tablet 11/02/21 Allergies Allergy/AdvReac Type Severity Reaction Status Date / Time No Known Allergies Allergy Verified 05/13/21 09:01 Review of Systems ROS Statement: Those systems with pertinent positive or pertinent negative responses have been documented in the HPI. ROS Other: All systems not noted in ROS Statement are negative. Constitutional: Denies: fever, chills Respiratory: Denies: cough, dyspnea Cardiovascular: Denies: chest pain, palpitations, edema Gastrointestinal: Reports: as per HPI, abdominal pain. Denies: nausea, vomiting, diarrhea, constipation Genitourinary: Reports: other (Indwelling Ramirez catheter.) Musculoskeletal: Denies: back pain Skin: Denies: rash Neurological: Denies: headache, weakness Past Medical History Past Medical History: Atrial Fibrillation, Cancer, COPD, Diabetes Mellitus, Eye Disorder, Hearing Disorder / Deafness, Hypertension, Pneumonia, Prostate Disorder, Renal Disease Additional Past Medical History / Comment(s): Pt recently admitted to [facility] on 01/25/20 with a mechanical fall/hematoma R buttock and acute blood loss anemia. Other hx: 2010 Brain cancer with surgery and radiation, L nephrectomy d/t deteriorating kidney, CKD stage III, BPH, chronic thrombocytopenia, chronic anemia, diet controlled diabetes, generalized arthritis, L2 compression fracture, blind R eye, [place] blaterally, seasonal allergies. 05/14/21 admitted with abdominal hematoma History of Any Multi-Drug Resistant Organisms: None Reported Additional Past Surgical History / Comment(s): L nephrectomy, brain tumor removal, bilateral cataract removals, colonoscopy. Past Anesthesia/Blood Transfusion Reactions: No Reported Reaction Additional Past Anesthesia/Blood Transfusion Reaction / Comment(s): Pt has received blood in past without reaction. Past Psychological History: Depression Smoking Status: Former smoker Past Alcohol Use History: None Reported Past Drug Use History: None Reported - Past Family History Father Family Medical History: No Reported History Additional Family Medical History / Comment(s): Father was healthy. He at the age of 62yrs in a MVA. Mother Additional Family Medical History / Comment(s): Mother at the age of 86yrs of "heart problems." Brother(s) Additional Family Medical History / Comment(s): Patient has 3 brothers and one is passed from old age. Patient has 4 sisters with no major medical problems. Patient had 2 children one from muscular dystrophy and one is alive with no major medical problems. General Exam Limitations: no limitations General appearance: alert, in no apparent distress Head exam: Present: atraumatic, normocephalic Eye exam: Present: normal appearance. Absent: scleral icterus, conjunctival injection Respiratory exam: Present: normal lung sounds bilaterally. Absent: respiratory distress, wheezes, rales, rhonchi, stridor Cardiovascular Exam: Present: regular rate, normal rhythm, normal heart sounds. Absent: systolic murmur, diastolic murmur, rubs, gallop GI/Abdominal exam: Present: soft. Absent: distended, tenderness, guarding, rebound, rigid, mass Extremities exam: Present: normal inspection, normal capillary refill. Absent: pedal edema, calf tenderness Back exam: Present: normal inspection. Absent: CVA tenderness (R), CVA tenderness (L) Skin exam: Present: warm, dry, intact, normal color. Absent: rash Course Vital Signs 11/02/21 03:34 Temperature 98.2 F Pulse Rate 79 Respiratory 16 Rate Blood Pressure 129/86 O2 Sat by Pulse 100 Oximetry Medical Decision Making - Medical Decision Making Patient is an 86-year-old man presenting with suprapubic discomfort. He does have indwelling Ramirez catheter that has very cloudy urine. This was changed by nursing staff and the patient had relief of most of his symptoms. Will give patient course of ciprofloxacin, send urine culture, have patient followed to ensure that there is resolution of symptoms. He does want to go home. Declining admission - Lab Data Result diagrams: 11/02/21 04:14 11/02/21 04:14 Lab Results 11/02/21 11/02/21 11/02/21 Range/Units 04:14 04:14 04:14 WBC 5.5 (3.8-10.6) k/uL RBC 3.59 L (4.30-5.90) m/uL Hgb 11.4 L (13.0-17.5) gm/dL Hct 35.9 L (39.0-53.0) % MCV 100.0 (80.0-100.0) fL MCH 31.8 (25.0-35.0) pg MCHC 31.8 (31.0-37.0) g/dL RDW 15.8 H (11.5-15.5) % Plt Count 65 L (150-450) k/uL MPV 13.7 Neutrophils % 68 % Lymphocytes % 23 % Monocytes % 5 % Eosinophils % 1 % Basophils % 1 % Neutrophils # 3.8 (1.3-7.7) k/uL Lymphocytes # 1.3 (1.0-4.8) k/uL Monocytes # 0.3 (0-1.0) k/uL Eosinophils # 0.1 (0-0.7) k/uL Basophils # 0.0 (0-0.2) k/uL Manual Slide Review Performed Large Platelets Present Anisocytosis (manual) Present Macrocytosis Slight Sodium 141 (137-145) mmol/L Potassium 4.1 (3.5-5.1) mmol/L Chloride 111 H (98-107) mmol/L Carbon Dioxide 22 (22-30) mmol/L Anion Gap 8 mmol/L BUN 51 H (9-20) mg/dL Creatinine 1.75 H (0.66-1.25) mg/dL Est GFR (CKD-EPI)AfAm 40 (>60 ml/min/1.73 sqM) Est GFR (CKD-EPI)NonAf 35 (>60 ml/min/1.73 sqM) Glucose 153 H (74-99) mg/dL Calcium 8.6 (8.4-10.2) mg/dL Total Bilirubin 0.6 (0.2-1.3) mg/dL AST 14 L (17-59) U/L ALT 11 (4-49) U/L Alkaline Phosphatase 54 (38-126) U/L Total Protein 5.9 L (6.3-8.2) g/dL Albumin 3.4 L (3.5-5.0) g/dL Amylase 56 (30-110) U/L Lipase 66 (23-300) U/L Urine Color Yellow Urine Appearance Turbid (Clear) Urine pH 6.0 (5.0-8.0) Ur Specific [place] 1.019 (1.001-1.035) Urine Protein 2+ H (Negative) Urine Glucose (UA) Negative (Negative) Urine Ketones Negative (Negative) Urine Blood Large H (Negative) Urine Nitrite Negative (Negative) Urine Bilirubin Negative (Negative) Urine Urobilinogen <2.0 (<2.0) mg/dL Ur Leukocyte Esterase Large H (Negative) Urine RBC 97 H (0-5) /hpf Urine WBC >182 H (0-5) /hpf Urine WBC Clumps Many H (None) /hpf Ur Squamous Epith Cells 2 (0-4) /hpf Urine Bacteria Moderate H (None) /hpf Urine Mucus Rare H (None) /hpf Disposition Clinical Impression: Urinary tract infection Disposition: HOME SELF-CARE Condition: Good Instructions (If sedation given, give patient instructions): Urinary Tract In fection in Men (ED), Catheter-associated Urinary Tract Infection (ED) Prescriptions: Ciprofloxacin HCl [Cipro] 500 mg PO Q12HR #14 tablet Is patient prescribed a controlled substance at d/c from ED?: No Referrals: Darvin Hurd DO [Primary Care Provider] - 1-2 days
[2021-11-02 07:27] VITALS: BP 120/79; PULSE 70; TEMP 97.6
== END 2021-11-02 08:06 | disposition home or self-care (01) ==
LOC: EC 03:28
DX: N39.0 Urinary tract infection, site not specified (principal); E11.22 Type 2 diabetes mellitus with diabetic chronic kidney disease; I12.9 Hypertensive chronic kidney disease with stage 1 through stage 4 chronic kidney disease, or unspecified chronic kidney disease; N18.30 Chronic kidney disease, stage 3 unspecified; J44.9 Chronic obstructive pulmonary disease, unspecified; I48.91 Unspecified atrial fibrillation; Z79.4 Long term (current) use of insulin; Z79.84 Long term (current) use of oral hypoglycemic drugs; Z79.52 Long term (current) use of systemic steroids; Z79.51 Long term (current) use of inhaled steroids; Z79.899 Other long term (current) drug therapy
CPT/HCPCS: 36415; 80053; 81001; 82150; 83690; 85025; 87086; 99284

== ENCOUNTER 2021-11-12 20:42 | Inpatient (IN) | payer MEDICARE ==
--- NOTE | 2021-11-12 21:20 | ED ---
Weakness HPI - General Chief complaint: Weakness Stated complaint: Fall Time Seen by Provider: 11/12/21 21:14 Source: EMS Mode of arrival: EMS Limitations: altered mental status - History of Present Illness Initial comments: 's patient is an 86-year-old man who is brought to have evaluation for generalized weakness and inability to ambulate. The patient also reportedly had been more confused than usual. When I interview the patient, he does not have complaints. He is denying chest pain. He denies dyspnea. No nausea or vomiting. The patient does believe he is at home. MD Complaint: generalized weakness, difficulty walking -: unknown Location: generalized Consistency: constant Improves with: none Worsens with: none Associated Symptoms: denies other symptoms - Related Data Home Medications Medication Instructions Recorded Confirmed Ferrous Sulfate [Feosol] 325 mg PO BID 03/25/14 11/12/21 Multivitamins, Thera [Multivitamin 1 tab PO DAILY 03/25/14 11/12/21 (formulary)] Ascorbic Acid [Vitamin C] 500 mg PO DAILY 11/21/16 11/12/21 Sertraline [Zoloft] 50 mg PO HS 01/25/20 11/12/21 allopurinoL [Zyloprim] 100 mg PO DAILY 01/25/20 11/12/21 Oxybutynin Chloride [Oxybutynin 10 mg PO DAILY 05/13/21 11/12/21 Chloride ER] Pioglitazone [Actos] 15 mg PO DAILY 05/13/21 11/12/21 Tolterodine Tartrate [Detrol LA] 4 mg PO DAILY 11/12/21 11/12/21 Previous Rx's Medication Instructions Recorded Cefuroxime Axetil [Ceftin] 500 mg PO BID 10 Days #20 tab 11/17/21 Allergies Allergy/AdvReac Type Severity Reaction Status Date / Time No Known Allergies Allergy Verified 11/12/21 20:56 Review of Systems ROS Statement: Those systems with pertinent positive or pertinent negative responses have been documented in the HPI. ROS Other: All systems not noted in ROS Statement are negative. Limitations: ROS unobtainable due to patients medical condition (Underlying dementia versus delirium) Respiratory: Denies: dyspnea Cardiovascular: Denies: chest pain Gastrointestinal: Denies: abdominal pain Neurological: Denies: headache Past Medical History Past Medical History: Atrial Fibrillation, Cancer, COPD, Diabetes Mellitus, Eye Disorder, Hearing Disorder / Deafness, Hypertension, Pneumonia, Prostate Disorder, Renal Disease Additional Past Medical History / Comment(s): Pt recently admitted to [facility] on 01/25/20 with a mechanical fall/hematoma R buttock and acute blood loss anemia. Other hx: 2010 Brain cancer with surgery and radiation, L nephrectomy d/t deteriorating kidney, CKD stage III, BPH, chronic thrombocytopenia, chronic anemia, diet controlled diabetes, generalized arthritis, L2 compression fracture, blind R eye, [place] blaterally, seasonal allergies. 05/14/21 admitted with abdominal hematoma History of Any Multi-Drug Resistant Organisms: None Reported Additional Past Surgical History / Comment(s): L nephrectomy, brain tumor kam mg, bilateral cataract removals, colonoscopy. Past Anesthesia/Blood Transfusion Reactions: No Reported Reaction Additional Past Anesthesia/Blood Transfusion Reaction / Comment(s): Pt has received blood in past without reaction. Past Psychological History: Depression Smoking Status: Former smoker Past Alcohol Use History: None Reported Past Drug Use History: None Reported - Past Family History Father Family Medical History: No Reported History Additional Family Medical History / Comment(s): Father was healthy. He at the age of 62yrs in a MVA. Mother Additional Family Medical History / Comment(s): Mother at the age of 86yrs of "heart problems." Brother(s) Additional Family Medical History / Comment(s): Patient has 3 brothers and one is passed from old age. Patient has 4 sisters with no major medical problems. Patient had 2 children one from muscular dystrophy and one is alive with no major medical problems. General Exam Limitations: altered mental status General appearance: alert, in no apparent distress Head exam: Present: atraumatic, normocephalic Eye exam: Present: normal appearance, PERRL, EOMI. Absent: scleral icterus, conjunctival injection, nystagmus ENT exam: Present: normal oropharynx Neck exam: Present: normal inspection, full ROM Respiratory exam: Present: normal lung sounds bilaterally. Absent: respiratory distress, wheezes, rales, rhonchi, stridor Cardiovascular Exam: Present: regular rate, normal rhythm, normal heart sounds. Absent: systolic murmur, diastolic murmur, rubs, gallop GI/Abdominal exam: Present: soft. Absent: distended, tenderness, guarding, rebound, rigid Extremities exam: Present: normal inspection, normal capillary refill. Absent: pedal edema, calf tenderness Back exam: Present: normal inspection Neurological exam: Present: alert, CN II-XII intact. Absent: oriented X3 Skin exam: Present: warm, dry, intact, normal color. Absent: rash Course Vital Signs 11/12/21 11/12/21 11/12/21 20:44 23:00 23:30 Temperature 100.3 F H Pulse Rate 86 88 75 Respiratory 24 16 15 Rate Blood Pressure 115/94 125/99 138/100 O2 Sat by Pulse 99 96 95 Oximetry 11/13/21 11/13/21 11/13/21 00:00 00:30 01:00 Temperature Pulse Rate 88 94 72 Respiratory 25 H 21 19 Rate Blood Pressure 133/86 133/83 126/68 O2 Sat by Pulse 93 L 92 L 93 L Oximetry 11/13/21 11/13/21 11/13/21 01:30 04:06 06:09 Temperature 99 F Pulse Rate 92 82 76 Respiratory 15 18 18 Rate Blood Pressure 132/90 133/83 131/80 O2 Sat by Pulse 93 L 94 L 94 L Oximetry 11/13/21 16:38 Temperature 98.9 F Pulse Rate 80 Respiratory 16 Rate Blood Pressure 132/81 O2 Sat by Pulse 97 Oximetry EKG Findings - EKG Results: EKG: interpreted by ERMD EKG shows: atrial fibrillation (82 bpm) - Dysrhythmias: Supraventricular dysrhythmia: atrial fibrillation - Blocks, [place], Hypertrophy, ST Abn: AV and intraventricular conduction: left bundle branch block (fixed/intermittent, complete/incomplete) Medical Decision Making - Lab Data Result diagrams: 11/14/21 05:33 11/16/21 05:41 Lab Results 11/12/21 11/12/21 11/12/21 Range/Units 21:38 21:38 21:38 WBC 5.8 (3.8-10.6) k/uL RBC 3.25 L (4.30-5.90) m/uL Hgb 10.5 L (13.0-17.5) gm/dL Hct 31.8 L (39.0-53.0) % MCV 97.8 (80.0-100.0) fL MCH 32.2 (25.0-35.0) pg MCHC 32.9 (31.0-37.0) g/dL RDW 15.6 H (11.5-15.5) % Plt Count 63 L (150-450) k/uL MPV 13.8 Neutrophils % 62 % Lymphocytes % 26 % Monocytes % 7 % Eosinophils % 1 % Basophils % 0 % Neutrophils # 3.6 (1.3-7.7) k/uL Lymphocytes # 1.5 (1.0-4.8) k/uL Monocytes # 0.4 (0-1.0) k/uL Eosinophils # 0.0 (0-0.7) k/uL Basophils # 0.0 (0-0.2) k/uL Manual Slide Review Performed Large Platelets Present Anisocytosis (manual) Present Ovalocytes Present PT 10.9 (9.0-12.0) sec INR 1.0 (<1.2) APTT 26.9 (22.0-30.0) sec Sodium (137-145) mmol/L Potassium (3.5-5.1) mmol/L Chloride (98-107) mmol/L Carbon Dioxide (22-30) mmol/L Anion Gap mmol/L BUN (9-20) mg/dL Creatinine (0.66-1.25) mg/dL Est GFR (CKD-EPI)AfAm (>60 ml/min/1.73 sqM) Est GFR (CKD-EPI)NonAf (>60 ml/min/1.73 sqM) Glucose (74-99) mg/dL POC Glucose (mg/dL) (75-99) mg/dL POC Glu Preform Machine Operator ID Estimated Ave Glu mg/dL Hemoglobin A1c (0.0-6.0) % Plasma Lactic Acid [place] (0.7-2.0) mmol/L Calcium (8.4-10.2) mg/dL Magnesium (1.6-2.3) mg/dL Total Bilirubin (0.2-1.3) mg/dL AST (17-59) U/L ALT (4-49) U/L Alkaline Phosphatase (38-126) U/L Troponin I (0.000-0.034) ng/mL Total Protein (6.3-8.2) g/dL Albumin (3.5-5.0) g/dL Urine Color Light Yellow Urine Appearance Clear (Clear) Urine pH 5.0 (5.0-8.0) Ur Specific [place] 1.015 (1.001-1.035) Urine Protein Negative (Negative) Urine Glucose (UA) Negative (Negative) Urine Ketones Negative (Negative) Urine Blood Negative (Negative) Urine Nitrite Negative (Negative) Urine Bilirubin Negative (Negative) Urine Urobilinogen <2.0 (<2.0) mg/dL Ur Leukocyte Esterase Small H (Negative) Urine RBC 2 (0-5) /hpf Urine WBC 6 H (0-5) /hpf Urine WBC Clumps Rare H (None) /hpf Ur Squamous Epith Cells <1 (0-4) /hpf Urine Bacteria Few H (None) /hpf Hyaline Casts 1 (0-2) /lpf Urine Mucus Rare H (None) /hpf Coronavirus (PCR) (Not Detectd) 11/12/21 11/12/21 11/12/21 Range/Units 21:38 21:38 21:38 WBC (3.8-10.6) k/uL RBC (4.30-5.90) m/uL Hgb (13.0-17.5) gm/dL Hct (39.0-53.0) % MCV (80.0-100.0) fL MCH (25.0-35.0) pg MCHC (31.0-37.0) g/dL RDW (11.5-15.5) % Plt Count (150-450) k/uL MPV Neutrophils % % Lymphocytes % % Monocytes % % Eosinophils % % Basophils % % Neutrophils # (1.3-7.7) k/uL Lymphocytes # (1.0-4.8) k/uL Monocytes # (0-1.0) k/uL Eosinophils # (0-0.7) k/uL Basophils # (0-0.2) k/uL Manual Slide Review Large Platelets Anisocytosis (manual) Ovalocytes PT (9.0-12.0) sec INR (<1.2) APTT (22.0-30.0) sec Sodium 139 (137-145) mmol/L Potassium 4.3 (3.5-5.1) mmol/L Chloride 108 H (98-107) mmol/L Carbon Dioxide 23 (22-30) mmol/L Anion Gap 8 mmol/L BUN 38 H (9-20) mg/dL Creatinine 1.64 H (0.66-1.25) mg/dL Est GFR (CKD-EPI)AfAm 43 (>60 ml/min/1.73 sqM) Est GFR (CKD-EPI)NonAf 37 (>60 ml/min/1.73 sqM) Glucose 130 H (74-99) mg/dL POC Glucose (mg/dL) (75-99) mg/dL POC Glu Preform Machine Operator ID Estimated Ave Glu mg/dL Hemoglobin A1c (0.0-6.0) % Plasma Lactic Acid [place] 0.9 (0.7-2.0) mmol/L Calcium 8.4 (8.4-10.2) mg/dL Magnesium 1.9 (1.6-2.3) mg/dL Total Bilirubin 0.7 (0.2-1.3) mg/dL AST 16 L (17-59) U/L ALT 10 (4-49) U/L Alkaline Phosphatase 57 (38-126) U/L Troponin I <0.012 (0.000-0.034) ng/mL Total Protein 5.9 L (6.3-8.2) g/dL Albumin 3.5 (3.5-5.0) g/dL Urine Color Urine Appearance (Clear) Urine pH (5.0-8.0) Ur Specific [place] (1.001-1.035) Urine Protein (Negative) Urine Glucose (UA) (Negative) Urine Ketones (Negative) Urine Blood (Negative) Urine Nitrite (Negative) Urine Bilirubin (Negative) Urine Urobilinogen (<2.0) mg/dL Ur Leukocyte Esterase (Negative) Urine RBC (0-5) /hpf Urine WBC (0-5) /hpf Urine WBC Clumps (None) /hpf Ur Squamous Epith Cells (0-4) /hpf Urine Bacteria (None) /hpf Hyaline Casts (0-2) /lpf Urine Mucus (None) /hpf Coronavirus (PCR) (Not Detectd) 11/12/21 11/12/21 11/13/21 Range/Units 21:38 21:38 06:13 WBC (3.8-10.6) k/uL RBC (4.30-5.90) m/uL Hgb (13.0-17.5) gm/dL Hct (39.0-53.0) % MCV (80.0-100.0) fL MCH (25.0-35.0) pg MCHC (31.0-37.0) g/dL RDW (11.5-15.5) % Plt Count (150-450) k/uL MPV Neutrophils % % Lymphocytes % % Monocytes % % Eosinophils % % Basophils % % Neutrophils # (1.3-7.7) k/uL Lymphocytes # (1.0-4.8) k/uL Monocytes # (0-1.0) k/uL Eosinophils # (0-0.7) k/uL Basophils # (0-0.2) k/uL Manual Slide Review Large Platelets Anisocytosis (manual) Ovalocytes PT (9.0-12.0) sec INR (<1.2) APTT (22.0-30.0) sec Sodium (137-145) mmol/L Potassium (3.5-5.1) mmol/L Chloride (98-107) mmol/L Carbon Dioxide (22-30) mmol/L Anion Gap mmol/L BUN (9-20) mg/dL Creatinine (0.66-1.25) mg/dL Est GFR (CKD-EPI)AfAm (>60 ml/min/1.73 sqM) Est GFR (CKD-EPI)NonAf (>60 ml/min/1.73 sqM) Glucose (74-99) mg/dL POC Glucose (mg/dL) 100 H (75-99) mg/dL POC Glu Preform Machine Operator Мария Simmons Estimated Ave Glu mg/dL 151 Hemoglobin A1c 6.9 H (0.0-6.0) % Plasma Lactic Acid [place] (0.7-2.0) mmol/L Calcium (8.4-10.2) mg/dL Magnesium (1.6-2.3) mg/dL Total Bilirubin (0.2-1.3) mg/dL AST (17-59) U/L ALT (4-49) U/L Alkaline Phosphatase (38-126) U/L Troponin I (0.000-0.034) ng/mL Total Protein (6.3-8.2) g/dL Albumin (3.5-5.0) g/dL Urine Color Urine Appearance (Clear) Urine pH (5.0-8.0) Ur Specific [place] (1.001-1.035) Urine Protein (Negative) Urine Glucose (UA) (Negative) Urine Ketones (Negative) Urine Blood (Negative) Urine Nitrite (Negative) Urine Bilirubin (Negative) Urine Urobilinogen (<2.0) mg/dL Ur Leukocyte Esterase (Negative) Urine RBC (0-5) /hpf Urine WBC (0-5) /hpf Urine WBC Clumps (None) /hpf Ur Squamous Epith Cells (0-4) /hpf Urine Bacteria (None) /hpf Hyaline Casts (0-2) /lpf Urine Mucus (None) /hpf Coronavirus (PCR) Not Detected (Not Detectd) 11/13/21 Range/Units 13:50 WBC (3.8-10.6) k/uL RBC (4.30-5.90) m/uL Hgb (13.0-17.5) gm/dL Hct (39.0-53.0) % MCV (80.0-100.0) fL MCH (25.0-35.0) pg MCHC (31.0-37.0) g/dL RDW (11.5-15.5) % Plt Count (150-450) k/uL MPV Neutrophils % % Lymphocytes % % Monocytes % % Eosinophils % % Basophils % % Neutrophils # (1.3-7.7) k/uL Lymphocytes # (1.0-4.8) k/uL Monocytes # (0-1.0) k/uL Eosinophils # (0-0.7) k/uL Basophils # (0-0.2) k/uL Manual Slide Review Large Platelets Anisocytosis (manual) Ovalocytes PT (9.0-12.0) sec INR (<1.2) APTT (22.0-30.0) sec Sodium (137-145) mmol/L Potassium (3.5-5.1) mmol/L Chloride (98-107) mmol/L Carbon Dioxide (22-30) mmol/L Anion Gap mmol/L BUN (9-20) mg/dL Creatinine (0.66-1.25) mg/dL Est GFR (CKD-EPI)AfAm (>60 ml/min/1.73 sqM) Est GFR (CKD-EPI)NonAf (>60 ml/min/1.73 sqM) Glucose (74-99) mg/dL POC Glucose (mg/dL) 101 H (75-99) mg/dL POC Glu Preform Machine Operator ID Bryanna Chen Estimated Ave Glu mg/dL Hemoglobin A1c (0.0-6.0) % Plasma Lactic Acid [place] (0.7-2.0) mmol/L Calcium (8.4-10.2) mg/dL Magnesium (1.6-2.3) mg/dL Total Bilirubin (0.2-1.3) mg/dL AST (17-59) U/L ALT (4-49) U/L Alkaline Phosphatase (38-126) U/L Troponin I (0.000-0.034) ng/mL Total Protein (6.3-8.2) g/dL Albumin (3.5-5.0) g/dL Urine Color Urine Appearance (Clear) Urine pH (5.0-8.0) Ur Specific [place] (1.001-1.035) Urine Protein (Negative) Urine Glucose (UA) (Negative) Urine Ketones (Negative) Urine Blood (Negative) Urine Nitrite (Negative) Urine Bilirubin (Negative) Urine Urobilinogen (<2.0) mg/dL Ur Leukocyte Esterase (Negative) Urine RBC (0-5) /hpf Urine WBC (0-5) /hpf Urine WBC Clumps (None) /hpf Ur Squamous Epith Cells (0-4) /hpf Urine Bacteria (None) /hpf Hyaline Casts (0-2) /lpf Urine Mucus (None) /hpf Coronavirus (PCR) (Not Detectd) Disposition Clinical Impression: Weakness Narrative: Inability to ambulate Disposition: ADMITTED IP TO THIS HOSP Condition: Good Is patient prescribed a controlled substance at d/c from ED?: No
[2021-11-12 22:01] LABS: Albumin 3.5 g/dL (3.5-5.0); Calcium 8.4 mg/dL (8.4-10.2); Magnesium 1.9 mg/dL (1.6-2.3); Partial Thromboplastin Time 26.9 sec (22.0-30.0); Potassium 4.3 mmol/L (3.5-5.1); Prothrombin Time 10.9 sec (9.0-12.0); Total Bilirubin 0.7 mg/dL (0.2-1.3); Total Protein 5.9 g/dL (6.3-8.2)
[2021-11-12 22:14] LABS: Basophils % (A) 0 %; Eosinophils % (A) 1 %; HCT 31.8 % (39.0-53.0); HGB 10.5 gm/dL (13.0-17.5); Lymphocytes # (A) 1.5 k/uL (1.0-4.8); Lymphocytes % (A) 26 %; MCH 32.2 pg (25.0-35.0); MCHC 32.9 g/dL (31.0-37.0); MCV 97.8 fL (80.0-100.0); Mean Platelet Volume 13.8; Monocytes # (A) 0.4 k/uL (0-1.0); Monocytes % (A) 7 %; Neutrophils # (A) 3.6 k/uL (1.3-7.7); Neutrophils % (A) 62 %; RBC 3.25 m/uL (4.30-5.90); RDW 15.6 % (11.5-15.5); WBC 5.8 k/uL (3.8-10.6)
--- NOTE | 2021-11-12 22:18 | XR ---
EXAMINATION TYPE: XR chest 1V portable DATE OF EXAM: 11/12/2021 COMPARISON: 09/11/2021 HISTORY: Weakness TECHNIQUE: FINDINGS: There is no heart failure nor confluent pneumonic infiltrate. Costophrenic angles are clear . There are chest leads. The bony thorax is intact. IMPRESSION: No active cardiopulmonary disease. Normal heart. No change
[2021-11-12 22:41] LABS: Large Platelets Present; Ovalocytes Present
[2021-11-12 22:42] LABS: Anisocytosis (M) Present
[2021-11-12 22:43] LABS: Platelet Count 63 k/uL (150-450)
[2021-11-12 22:47] LABS: Appearance,Urine Clear (Clear); Bacteria,Urine Few /hpf; Bilirubin,Urine Negative (Negative); Blood,Urine Negative (Negative); Color,Urine Light Yellow; Glucose,Urine (UA) Negative (Negative); Hyaline Casts,Urine 1 /lpf (0-2); Ketones,Urine Negative (Negative); Leukocyte Esterase,Urine Small (Negative); Mucus,Urine Rare /hpf; Nitrite,Urine Negative (Negative); Protein,Urine Negative (Negative); RBC,Urine 2 /hpf (0-5); Specific Gravity,Urine 1.015 (1.001-1.035); Squamous Epithelial Cell,Urine <1 /hpf (0-4); Urobilinogen,Urine <2.0 mg/dL (<2.0); WBC,Urine 6 /hpf (0-5)
[2021-11-13] MEDS ORDERED: NALOXONE 0.4 MG/ML 1 ML VIAL IV PRN (04:33)
--- NOTE | 2021-11-13 04:58 | P.HPIM ---
History of Present Illness H&P Date: 11/13/21 Patient is an 86-year-old male with a PMH of type II DM, A. fib, COPD, BPH, chronic kidney disease who presented to the emergency room due to diffuse weakness. History supplemented by the ED physician as the patient is a relatively poor historian. Patient reports that over the past 2-3 weeks, he has had difficulty ambulating, due to which she was brought to the emergency room. He denied any additional complaints. Denied experiencing chest discomfort, shortness of breath, urinary complaints, fever, chills, cough, abdominal pain, diarrhea. Of note, the patient was previously seen at the emergency room for similar complaints on 11/02 at which time he was diagnosed with a UTI and sent home on Levaquin. Chest x-ray was unremarkable. Laboratory evaluation revealed BUN of 38, creatinine 1.64, and an unremarkable UA. Review of systems: Pertinent positives and negatives as discussed in HPI, a complete review of systems was performed and all other systems are negative. Physical examination: General: non toxic, no distress, appears at stated age, overweight Derm: no unusual rashes/lesions no unusual ecchymoses, warm, dry Head: atraumatic, normocephalic, symmetric Eyes: EOMI, no lid lag, anicteric sclera, pupils equal round reactive to light ENT: Nose and ears atraumatic, no thrush, no pharyngeal erythema Neck: No thyromegaly, no cervical lymphadenopathy, trachea midline, supple Mouth: no lip lesion, mucus membranes moist Cardiovascular: S1S2 reg, no murmur, positive posterior tibial pulse bilateral, no edema, capillary refill less than 2 seconds Lungs: CTA bilateral, no rhonchi, no rales , no accessory muscle use Abdominal: soft, nontender to palpation, no guarding, no appreciable organomegaly, normal bowel sounds Ext: no gross muscle atrophy, muscle strength 3 out of 5 in all 4 extremities grossly, no contractures, Neuro: CN II-XI grossly intact, light touch intact all 4 extremities, finger to nose within normal limits, Psych: Awake, confused, oriented only to person Assessment/plan Failure to thrive -PT/OT consult -Fall precautions Chronic conditions: Type II DM, A. fib, chronic kidney disease, BPH -Continue home meds DVT prophylaxis -Heparin subcu The patient is admitted with an anticipated less than 2 midnight stay for evaluation of FTT CODE STATUS: Full Code Discussed with: Patient Anticipated discharge date: in am Anticipated discharge place: Home Past Medical History Past Medical History: Atrial Fibrillation, Cancer, COPD, Diabetes Mellitus, Eye Disorder, Hearing Disorder / Deafness, Hypertension, Pneumonia, Prostate Disorder, Renal Disease Additional Past Medical History / Comment(s): Pt recently admitted to [facility] on 01/25/20 with a mechanical fall/hematoma R buttock and acute blood loss anemia. Other hx: 2010 Brain cancer with surgery and radiation, L nephrectomy d/t deteriorating kidney, CKD stage III, BPH, chronic thrombocytopenia, chronic anemia, diet controlled diabetes, generalized arthritis, L2 compression fracture, blind R eye, [place] blaterally, seasonal allergies. 05/14/21 admitted with abdominal hematoma History of Any Multi-Drug Resistant Organisms: None Reported Additional Past Surgical History / Comment(s): L nephrectomy, brain tumor removal, bilateral cataract removals, colonoscopy. Past Anesthesia/Blood Transfusion Reactions: No Reported Reaction Additional Past Anesthesia/Blood Transfusion Reaction / Comment(s): Pt has received blood in past without reaction. Past Psychological History: Depression Smoking Status: Former smoker Past Alcohol Use History: None Reported Past Drug Use History: None Reported - Past Family History Father Family Medical History: No Reported History Additional Family Medical History / Comment(s): Father was healthy. He at the age of 62yrs in a MVA. Mother Additional Family Medical History / Comment(s): Mother at the age of 86yrs of "heart problems." Brother(s) Additional Family Medical History / Comment(s): Patient has 3 brothers and one is passed from old age. Patient has 4 sisters with no major medical problems. Patient had 2 children one from muscular dystrophy and one is alive with no major medical problems. Medications and Allergies Home Medications Medication Instructions Recorded Confirmed Type Ferrous Sulfate [Feosol] 325 mg PO BID 03/25/14 11/12/21 History Multivitamins, Thera [Multivitamin 1 tab PO DAILY 03/25/14 11/12/21 History (formulary)] Ascorbic Acid [Vitamin C] 500 mg PO DAILY 11/21/16 11/12/21 History Sertraline [Zoloft] 50 mg PO HS 01/25/20 11/12/21 History allopurinoL [Zyloprim] 100 mg PO DAILY 01/25/20 11/12/21 History Oxybutynin Chloride [Oxybutynin 10 mg PO DAILY 05/13/21 11/12/21 History Chloride ER] Pioglitazone [Actos] 15 mg PO DAILY 05/13/21 11/12/21 History Tolterodine Tartrate [Detrol LA] 4 mg PO DAILY 11/12/21 11/12/21 History levoFLOXacin 500 mg PO DAILY 11/12/21 11/12/21 History Allergies Allergy/AdvReac Type Severity Reaction Status Date / Time No Known Allergies Allergy Verified 11/12/21 20:56 Physical Exam Vitals: Vital Signs Temp Pulse Resp BP Pulse Ox 11/13/21 04:06 82 18 133/83 94 L 11/13/21 01:30 92 15 132/90 93 L 11/13/21 01:00 72 19 126/68 93 L 11/13/21 00:30 94 21 133/83 92 L 11/13/21 00:00 88 25 H 133/86 93 L 11/12/21 23:30 75 15 138/100 95 11/12/21 23:00 88 16 125/99 96 11/12/21 20:44 100.3 F H 86 24 115/94 99 Intake and Output 11/12/21 11/12/21 11/13/21 14:59 22:59 06:59 Output Total 800 Balance -800 Output: Urine 800 Other: Voiding Method Indwelling Catheter Weight 95.254 kg Results CBC & Chem 7: 11/12/21 21:38 11/12/21 21:38 Labs: Abnormal Lab Results - Last 24 Hours (Table) 11/12/21 11/12/21 11/12/21 Range/Units 21:38 21:38 21:38 RBC 3.25 L (4.30-5.90) m/uL Hgb 10.5 L (13.0-17.5) gm/dL Hct 31.8 L (39.0-53.0) % RDW 15.6 H (11.5-15.5) % Plt Count 63 L (150-450) k/uL Chloride 108 H (98-107) mmol/L BUN 38 H (9-20) mg/dL Creatinine 1.64 H (0.66-1.25) mg/dL Glucose 130 H (74-99) mg/dL AST 16 L (17-59) U/L Total Protein 5.9 L (6.3-8.2) g/dL Ur Leukocyte Esterase Small H (Negative) Urine WBC 6 H (0-5) /hpf Urine WBC Clumps Rare H (None) /hpf Urine Bacteria Few H (None) /hpf Urine Mucus Rare H (None) /hpf
[2021-11-13] MEDS: SODIUM CHLORIDE 0.9% 1,000 ML IV SCH ×2 (06:00→21:11)
[2021-11-13] MEDS: INSULIN ASPART (NovoLOG) 100 UNIT/ML VIAL SQ SCH ×4 (06:14→21:10)
[2021-11-13 06:16] LABS: Glucose,Whole Blood 100 mg/dL (75-99)
[2021-11-13] MEDS: HEPARIN SODIUM,PORCINE/PF 5,000 UNIT/0.5 ML SYRINGE SQ SCH ×2 (07:37→21:11)
[2021-11-13] MEDS: allopurinoL 100 MG TAB PO SCH (07:38)
[2021-11-13] MEDS: OXYBUTYNIN 10 MG TAB.ER.24 PO SCH (07:52)
[2021-11-13 13:51] LABS: Glucose,Whole Blood 101 mg/dL (75-99)
--- NOTE | 2021-11-13 14:02 | P.PN ---
Subjective Progress Note Date: 11/13/21 Hospital course: Patient is a very pleasant 86-year-old male with a past medical history of Parkinson's disease, dementia, type II sgx-wcftxgf-gmpbzixkm diabetes mellitus, atrial fibrillation not on anticoagulation, COPD, BPH, and chronic kidney disease. Patient lives at home with his and presented to the emergency department secondary to failure to thrive with increased weakness and difficulties with ambulation over the past 2 weeks and progressively worsening. Patient's no longer able to care for him. Patient underwent full evaluation in the emergency department. Chest x-ray negative for acute cardiopulmonary process. Urinalysis negative for infection. CBC revealing mild normocytic normochromic anemia with hemoglobin of 10.5 with baseline hemoglobin of 9.6 and thrombocytopenia with platelet count of 63 and is currently at baseline per labs dating back to 2013. BMP consistent with stage III chronic kidney disease with BUN 38, creatinine 1.64, and GFR of 37 with baseline creatinine of 1.7. Code PCR was negative. Patient was admitted under our services with consultation to physical and occupational therapy. Blood cultures were obtained with preliminary results revealing gram positive cocci and chains. Patient started on IV antibiotic Rocephin pending final culture results. Physical exam: Patient seen and fully evaluated at bedside this morning. Case management discussing SNF with patient's . Patient currently alert to person and place only, confused to time and situation which is reported to be his baseline level.. Patient continues to display generalized weakness, he was moving upper extremities with no noted difficulties. Moving bilateral lower extremities equally with 2-3 out of 10 strength at this time. Patient able to follow commands without difficulties and denies having any pain or discomfort at this time. Observation changed to full inpatient admission at this time secondary to positive blood cultures revealing bacteremia. Patient started on IV antibiotic with Rocephin and we will continue to monitor closely pending final culture results. Case management making arrangements for patient to be placed and SNF upon discharge. May consider infectious disease consult pending final blood culture results. Patient had low-grade temp overnight of 100.3F. General: Nontoxic, no distress and appears stated age. Derm: Skin warm and dry, normal coloration for ethnicity. Head: Atraumatic, normocephalic and symmetric. patient very hard of hearing. Eyes: EOMs intact, no lid lag, and anicteric sclera Mouth: no lip lesions, mucus membranes moist Cardiovascular: regular rate and rhythm with normal S1S2, systolic murmur, positive posterior tibial pulses bilaterally, and cap refill < 2 seconds. Lungs: Respirations even, regular, and unlabored on room air. Lungs CTA bilaterally, no rhonchi, no rales, no wheezing, and no accessory muscle usage. Abdominal: soft, nontender to palpation, no guarding, no appreciable organomegaly Ext: No gross muscle atrophy, no edema, no contractures Movement and sensation is intact, patient displays bilateral lower extremity generalized weakness. Neuro: Speech clear, face symmetrical and CN II-XII grossly intact with no noted focal neuro deficits. GCS 14. Psych: Alert and oriented to person and place, confused to time and situation. Baseline mentation per report. Pleasant and cooperative. Assessment and Plan of Care: Bacteremia Failure to thrive likely secondary to above Generalized weakness likely secondary to above Parkinson's disease Alzheimer's dementia IV antibiotics with Rocephin Preliminary blood cultures 2 of 2 both showing positive for gram-positive cocci in chains, awaiting final culture and sensitivity reports. May consider consult to infectious disease pending final blood culture results. IV hydration with 0.9% normal saline at 75 mL's per hour. Fall precautions Consult to physical/occupational therapy Arrangements being made for placement in [facility] upon discharge. Type II vmy-cecshuf-leedmppco diabetes mellitus Glycemic protocol with NovoLog sliding scale. Stage III chronic kidney disease Stable CODE STATUS: Full code DVT prophylaxis: heparin Discussed with: Patient and RN, case management was discussing with patient's Anticipated discharge date: clinical course to determine Anticipated discharge place: [facility]. A total of 41 minutes was spent on the care of this complex patient more than 50% of the time was spent in counseling and care coordination. Objective - Vital Signs Vital signs: Vital Signs Temp 99 F 11/13/21 06:09 Pulse 76 11/13/21 06:09 Resp 18 11/13/21 06:09 BP 131/80 11/13/21 06:09 Pulse Ox 94 L 11/13/21 06:09 Intake & Output 11/12/21 11/13/21 11/13/21 18:59 06:59 18:59 Output Total 800 500 Balance -800 -500 Weight 95.254 kg Output: Urine 800 500 Other: Voiding Method Indwelling Catheter - Labs CBC & Chem 7: 11/12/21 21:38 11/12/21 21:38 Labs: Abnormal Lab Results - Last 24 Hours (Table) 11/12/21 11/12/21 11/12/21 Range/Units 21:38 21:38 21:38 RBC 3.25 L (4.30-5.90) m/uL Hgb 10.5 L (13.0-17.5) gm/dL Hct 31.8 L (39.0-53.0) % RDW 15.6 H (11.5-15.5) % Plt Count 63 L (150-450) k/uL Chloride 108 H (98-107) mmol/L BUN 38 H (9-20) mg/dL Creatinine 1.64 H (0.66-1.25) mg/dL Glucose 130 H (74-99) mg/dL POC Glucose (mg/dL) (75-99) mg/dL Hemoglobin A1c (0.0-6.0) % AST 16 L (17-59) U/L Total Protein 5.9 L (6.3-8.2) g/dL Ur Leukocyte Esterase Small H (Negative) Urine WBC 6 H (0-5) /hpf Urine WBC Clumps Rare H (None) /hpf Urine Bacteria Few H (None) /hpf Urine Mucus Rare H (None) /hpf 11/12/21 11/13/21 11/13/21 Range/Units 21:38 06:13 13:50 RBC (4.30-5.90) m/uL Hgb (13.0-17.5) gm/dL Hct (39.0-53.0) % RDW (11.5-15.5) % Plt Count (150-450) k/uL Chloride (98-107) mmol/L BUN (9-20) mg/dL Creatinine (0.66-1.25) mg/dL Glucose (74-99) mg/dL POC Glucose (mg/dL) 100 H 101 H (75-99) mg/dL Hemoglobin A1c 6.9 H (0.0-6.0) % AST (17-59) U/L Total Protein (6.3-8.2) g/dL Ur Leukocyte Esterase (Negative) Urine WBC (0-5) /hpf Urine WBC Clumps (None) /hpf Urine Bacteria (None) /hpf Urine Mucus (None) /hpf Microbiology - Last 24 Hours (Table) 11/12/21 22:09 Blood Culture Gram Stain - Preliminary Blood 11/12/21 22:09 Blood Culture - Final Blood 11/12/21 22:14 Blood Culture Gram Stain - Preliminary Blood 11/12/21 22:14 Blood Culture - Final Blood
[2021-11-13 17:17] LABS: Glucose,Whole Blood 100 mg/dL (75-99)
[2021-11-13 20:04] LABS: Glucose,Whole Blood 168 mg/dL (75-99)
[2021-11-13] MEDS: SERTRALINE 50 MG TAB PO SCH (21:10)
[2021-11-14] MEDS: SODIUM CHLORIDE 0.9% 1,000 ML IV SCH (03:01)
[2021-11-14 07:06] LABS: Glucose,Whole Blood 89 mg/dL (75-99)
[2021-11-14] MEDS: INSULIN ASPART (NovoLOG) 100 UNIT/ML VIAL SQ SCH ×4 (07:53→20:26)
[2021-11-14] MEDS: allopurinoL 100 MG TAB PO SCH (08:59)
[2021-11-14] MEDS: HEPARIN SODIUM,PORCINE/PF 5,000 UNIT/0.5 ML SYRINGE SQ SCH ×2 (08:59→20:28)
[2021-11-14] MEDS: OXYBUTYNIN 10 MG TAB.ER.24 PO SCH (09:15)
[2021-11-14 09:45] LABS: African American GFR (CKD) 53.3 (60.0-200.0); Albumin 3.5 g/dL (3.8-4.9); Albumin/Globulin Ratio 1.86 (1.60-3.17); Anion Gap 12.2 mmol/L (10.00-18.00); BUN/Creat Ratio 21.38 Ratio (12.00-20.00); Blood Urea Nitrogen 29.5 mg/dL (9.0-27.0); Calcium 8.6 mg/dL (8.7-10.3); Carbon Dioxide 21.3 mmol/L (20.0-27.5); Globulin 1.9 g/dL (1.6-3.3); Magnesium 1.9 mg/dL (1.5-2.4); Potassium 4.7 mmol/L (3.5-5.5); Total Bilirubin 0.5 mg/dL (0.30-1.20); Total Protein 5.3 g/dL (6.2-8.2)
[2021-11-14 10:13] LABS: HCT 31.8 % (39.6-50.0); HGB 9.7 g/dL (13.0-17.0); Immature Platelet Fraction 21.6 % (1.1-6.1); MCH 30.5 pg (27.0-32.0); MCHC 30.5 g/dL (32.0-37.0); NRBC Per 100 WBC 0 /100 WBCS (0.0-0.0); Platelet Count 55 X 10*3/uL (140-440); RBC 3.18 X 10*6/uL (4.40-5.60); RDW 14.9 % (11.5-14.5)
[2021-11-14 11:30] LABS: Glucose,Whole Blood 179 mg/dL (75-99)
[2021-11-14 12:55] VITALS: BMI 28.5
--- NOTE | 2021-11-14 15:07 | P.PN ---
Subjective Progress Note Date: 11/14/21 Hospital course: Patient is a very pleasant 86-year-old male with a past medical history of Parkinson's disease, dementia, type II zxq-ryotqly-domitdxkz diabetes mellitus, atrial fibrillation not on anticoagulation, COPD, BPH, and chronic kidney disease. Patient lives at home with his and presented to the emergency department secondary to failure to thrive with increased weakness and difficulties with ambulation over the past 2 weeks and progressively worsening. Patient's no longer able to care for him. Patient underwent full evaluation in the emergency department. Chest x-ray negative for acute cardiopulmonary process. Urinalysis negative for infection. CBC revealing mild normocytic normochromic anemia with hemoglobin of 10.5 with baseline hemoglobin of 9.6 and thrombocytopenia with platelet count of 63 and is currently at baseline per labs dating back to 2013. BMP consistent with stage III chronic kidney disease with BUN 38, creatinine 1.64, and GFR of 37 with baseline creatinine of 1.7. Code PCR was negative. Patient was admitted under our services with consultation to physical and occupational therapy. Blood cultures were obtained with preliminary results revealing gram positive cocci and chains. Patient started on IV antibiotic Rocephin pending final culture results. Physical exam: Patient seen and fully evaluated at bedside this morning. Case management discussing SNF with patient's . Patient currently alert to person and place only, confused to time and situation which is reported to be his baseline level.. Patient continues to display generalized weakness, he was moving upper extremities with no noted difficulties. Moving bilateral lower extremities equally with 2-3 out of 10 strength at this time. Patient able to follow commands without difficulties and denies having any pain or discomfort at this time. Observation changed to full inpatient admission at this time secondary to positive blood cultures revealing bacteremia. Patient started on IV antibiotic with Rocephin and we will continue to monitor closely pending final culture results. Case management making arrangements for patient to be placed and SNF upon discharge. May consider infectious disease consult pending final blood culture results. Patient had low-grade temp overnight of 100.3F. General: Nontoxic, no distress and appears stated age. Derm: Skin warm and dry, normal coloration for ethnicity. Head: Atraumatic, normocephalic and symmetric. patient very hard of hearing. Eyes: EOMs intact, no lid lag, and anicteric sclera Mouth: no lip lesions, mucus membranes moist Cardiovascular: regular rate and rhythm with normal S1S2, systolic murmur, positive posterior tibial pulses bilaterally, and cap refill < 2 seconds. Lungs: Respirations even, regular, and unlabored on room air. Lungs CTA bilaterally, no rhonchi, no rales, no wheezing, and no accessory muscle usage. Abdominal: soft, nontender to palpation, no guarding, no appreciable organomegaly Ext: No gross muscle atrophy, no edema, no contractures Movement and sensation is intact, patient displays bilateral lower extremity generalized weakness. Neuro: Speech clear, face symmetrical and CN II-XII grossly intact with no noted focal neuro deficits. GCS 14. Psych: Alert and oriented to person and place, confused to time and situation. Baseline mentation per report. Pleasant and cooperative. Assessment and Plan of Care: Bacteremia Failure to thrive likely secondary to above Generalized weakness likely secondary to above Parkinson's disease Alzheimer's dementia IV antibiotics with Rocephin Preliminary blood cultures 2 of 2 both showing positive for gram-positive cocci in chains, awaiting final culture and sensitivity reports. Daily blood cultures until negative Infectious disease consulted, appreciate recommendations Patient tolerating oral intake, IV fluids discontinued. Fall precautions Consult to physical/occupational therapy Arrangements being made for placement in custodial facility upon discharge. Type II hxd-zjxokhs-umovyveiq diabetes mellitus Glycemic protocol with NovoLog sliding scale. Stage III chronic kidney disease Stable CODE STATUS: Full code DVT prophylaxis: heparin patient's January Discussed with: Patient and RN and Anticipated discharge date: clinical course to determine Anticipated discharge place: custodial facility, [facility] A total of 36 minutes was spent on the care of this complex patient more than 50% of the time was spent in counseling and care coordination. Objective - Vital Signs Vital signs: Vital Signs Temp 98.1 F 11/14/21 08:41 Pulse 75 11/14/21 08:42 Resp 16 11/14/21 08:42 BP 109/69 11/14/21 08:41 Pulse Ox 92 L 11/14/21 05:00 Intake & Output 11/13/21 11/14/21 11/14/21 18:59 06:59 18:59 Intake Total 150 100 Output Total 500 Balance -350 100 Weight 95.254 kg Intake: Intake, IV Titration 150 100 Amount Sodium Chloride 0.9% 1, 100 000 ml @ 75 mls/hr IV . [id number] [facility] Rx#:[id number] cefTRIAXone 2 gm In 50 100 Sodium Chloride 0.9% 50 ml @ 100 mls/hr IVPB Q24HR [facility] Rx#:[id number] Output: Urine 500 Other: Voiding Method Indwelling Catheter Indwelling Catheter # Bowel Movements 1 - Labs CBC & Chem 7: 11/14/21 05:33 11/14/21 05:33 Labs: Abnormal Lab Results - Last 24 Hours (Table) 11/13/21 11/13/21 11/13/21 Range/Units 13:50 17:15 20:03 RBC (4.40-5.60) X 10*6/uL Hgb (13.0-17.0) g/dL Hct (39.6-50.0) % MCV (80.0-97.0) fL MCHC (32.0-37.0) g/dL RDW (11.5-14.5) % Plt Count (140-440) X 10*3/uL Immature Plt Fraction (1.1-6.1) % BUN (9.0-27.0) mg/dL Est GFR (CKD-EPI)AfAm (60.0-200.0) Est GFR (CKD-EPI)NonAf (60.0-200.0) BUN/Creatinine Ratio (12.00-20.00) Ratio Glucose (70-110) mg/dL POC Glucose (mg/dL) 101 H 100 H 168 H (75-99) mg/dL Calcium (8.7-10.3) mg/dL Total Protein (6.2-8.2) g/dL Albumin (3.8-4.9) g/dL 11/14/21 11/14/21 Range/Units 05:33 05:33 RBC 3.18 L (4.40-5.60) X 10*6/uL Hgb 9.7 L (13.0-17.0) g/dL Hct 31.8 L (39.6-50.0) % MCV 100.0 H (80.0-97.0) fL MCHC 30.5 L (32.0-37.0) g/dL RDW 14.9 H (11.5-14.5) % Plt Count 55 L (140-440) X 10*3/uL Immature Plt Fraction 21.6 H (1.1-6.1) % BUN 29.5 H (9.0-27.0) mg/dL Est GFR (CKD-EPI)AfAm 53.3 L (60.0-200.0) Est GFR (CKD-EPI)NonAf 46.0 L (60.0-200.0) BUN/Creatinine Ratio 21.38 H (12.00-20.00) Ratio Glucose 120 H (70-110) mg/dL POC Glucose (mg/dL) (75-99) mg/dL Calcium 8.6 L (8.7-10.3) mg/dL Total Protein 5.3 L (6.2-8.2) g/dL Albumin 3.5 L (3.8-4.9) g/dL Microbiology - Last 24 Hours (Table) 11/12/21 22:14 Blood Culture Gram Stain - Preliminary Blood Blood Culture - Preliminary Streptococcus species 11/12/21 22:09 Blood Culture Gram Stain - Preliminary Blood 11/12/21 22:09 Blood Culture - Final Blood 11/12/21 22:14 Blood Culture - Final Blood
[2021-11-14 17:07] LABS: Glucose,Whole Blood 129 mg/dL (75-99)
[2021-11-14 20:12] LABS: Glucose,Whole Blood 126 mg/dL (75-99)
[2021-11-14] MEDS: SERTRALINE 50 MG TAB PO SCH (20:28)
--- NOTE | 2021-11-14 23:04 | P.CONS ---
History of Present Illness - Reason for Consult Consult date: 11/14/21 Bacteremia Requesting physician: Mac Rodriguez - Chief Complaint Weakness few days - History of Present Illness Patient is 86-year-old male presenting to the ER 2 nights ago for evaluation of generalized weakness and inability to ambulate and apparently the patient was noticed to be more confused than usual patient on arrival to the ER did have a low-grade fever 100.3 F patient did have normal white count did have elevated BUN and creatinine liver enzymes were normal urine was mildly positive Covid testing was negative patient did have blood cultures coming positive with nonhemolytic strep that has prompted this infectious disease consultation patient did have a chest x-ray negative cardiopulmonary disease, patient himself is not a very good historian however without specifically denies having any chest pain or shortness of breath or cough currently on room air P denies have any nausea no vomiting no abdominal pain and no diarrhea Review of Systems Positive points has been mentioned in HPI complete review could not be obtained because of his underlying mental status Past Medical History Past Medical History: Atrial Fibrillation, Cancer, COPD, Diabetes Mellitus, Eye Disorder, Hearing Disorder / Deafness, Hypertension, Musculoskeletal Disorder, Neurologic Disorder, Osteoarthritis (OA), Pneumonia, Prostate Disorder, Renal Disease, Syncope Additional Past Medical History / Comment(s): NIDDM type II, 2010 brain cancer with surgery and radiation, L nephrectomy d/t deteriorating kidney, CKD stage III, BPH, 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 05/14/21 admitted with abdominal hematoma History of Any Multi-Drug Resistant Organisms: None Reported Additional Past Surgical History / Comment(s): L nephrectomy, brain tumor removal, bilateral cataract removals, colonoscopy. Past Anesthesia/Blood Transfusion Reactions: No Reported Reaction Additional Past Anesthesia/Blood Transfusion Reaction / Comm: Pt has received blood in past without reaction. Smoking Status: Former smoker - Past Family History Father Family Medical History: No Reported History Additional Family Medical History / Comment(s): Father was healthy. He at the age of 62yrs in a MVA. Mother Additional Family Medical History / Comment(s): Mother at the age of 86yrs of "heart problems." Brother(s) Additional Family Medical History / Comment(s): Patient has 3 brothers and one is passed from old age. Patient has 4 sisters with no major medical problems. Patient had 2 children one from muscular dystrophy and one is alive with no major medical problems. Medications and Allergies Home Medications Medication Instructions Recorded Confirmed Type Ferrous Sulfate [Feosol] 325 mg PO BID 03/25/14 11/12/21 History Multivitamins, Thera [Multivitamin 1 tab PO DAILY 03/25/14 11/12/21 History (formulary)] Ascorbic Acid [Vitamin C] 500 mg PO DAILY 11/21/16 11/12/21 History Sertraline [Zoloft] 50 mg PO HS 01/25/20 11/12/21 History allopurinoL [Zyloprim] 100 mg PO DAILY 01/25/20 11/12/21 History Oxybutynin Chloride [Oxybutynin 10 mg PO DAILY 05/13/21 11/12/21 History Chloride ER] Pioglitazone [Actos] 15 mg PO DAILY 05/13/21 11/12/21 History Tolterodine Tartrate [Detrol LA] 4 mg PO DAILY 11/12/21 11/12/21 History levoFLOXacin 500 mg PO DAILY 11/12/21 11/12/21 History Allergies Allergy/AdvReac Type Severity Reaction Status Date / Time No Known Allergies Allergy Verified 11/12/21 20:56 Physical Exam Vitals: Vital Signs Temp Pulse Pulse Resp BP BP Pulse Ox 11/14/21 08:42 75 16 11/14/21 08:41 98.1 F 75 16 109/69 11/14/21 05:00 98.9 F 63 16 131/73 92 L 11/13/21 21:00 98.1 F 67 16 130/86 91 L 11/13/21 20:00 67 16 11/13/21 16:38 98.9 F 80 16 132/81 97 Intake and Output 11/13/21 11/14/21 11/14/21 22:59 06:59 14:59 Intake Total 150 100 Balance 150 100 Intake: Intake, IV Titration 150 100 Amount Sodium Chloride 0.9% 1, 100 000 ml @ 75 mls/hr IV . [id number] [facility] Rx#:[id number] cefTRIAXone 2 gm In 50 100 Sodium Chloride 0.9% 50 ml @ 100 mls/hr IVPB Q24HR [facility] Rx#:[id number] Other: Voiding Method Indwelling Catheter Indwelling Catheter # Bowel Movements 1 Weight 95.254 kg GENERAL DESCRIPTION: Elderly male up in the chair, no distress. No tachypnea or accessory muscle of respiration use. HEENT: Shows Pallor , no scleral icterus. Oral mucous membrane is dry. No pharyngeal erythema or thrush NECK: Trachea central, no thyromegaly. LUNGS: Unlabored breathing. Clear to auscultation anteriorly. No wheeze or crackle. HEART: S1, S2, regular rate and rhythm. No loud murmur ABDOMEN: Soft, no tenderness , guarding or rigidity, no organomegaly EXTREMITIES: No edema of feet. SKIN: No rash, no masses palpable. NEUROLOGICAL: The patient is awake, pleasantly confused orientation could not be determined Results CBC & Chem 7: 11/14/21 05:33 11/14/21 05:33 Labs: Abnormal Lab Results - Last 24 Hours (Table) 11/13/21 11/13/21 11/13/21 Range/Units 13:50 17:15 20:03 RBC (4.40-5.60) X 10*6/uL Hgb (13.0-17.0) g/dL Hct (39.6-50.0) % MCV (80.0-97.0) fL MCHC (32.0-37.0) g/dL RDW (11.5-14.5) % Plt Count (140-440) X 10*3/uL Immature Plt Fraction (1.1-6.1) % BUN (9.0-27.0) mg/dL Est GFR (CKD-EPI)AfAm (60.0-200.0) Est GFR (CKD-EPI)NonAf (60.0-200.0) BUN/Creatinine Ratio (12.00-20.00) Ratio Glucose (70-110) mg/dL POC Glucose (mg/dL) 101 H 100 H 168 H (75-99) mg/dL Calcium (8.7-10.3) mg/dL Total Protein (6.2-8.2) g/dL Albumin (3.8-4.9) g/dL 11/14/21 11/14/21 11/14/21 Range/Units 05:33 05:33 11:28 RBC 3.18 L (4.40-5.60) X 10*6/uL Hgb 9.7 L (13.0-17.0) g/dL Hct 31.8 L (39.6-50.0) % MCV 100.0 H (80.0-97.0) fL MCHC 30.5 L (32.0-37.0) g/dL RDW 14.9 H (11.5-14.5) % Plt Count 55 L (140-440) X 10*3/uL Immature Plt Fraction 21.6 H (1.1-6.1) % BUN 29.5 H (9.0-27.0) mg/dL Est GFR (CKD-EPI)AfAm 53.3 L (60.0-200.0) Est GFR (CKD-EPI)NonAf 46.0 L (60.0-200.0) BUN/Creatinine Ratio 21.38 H (12.00-20.00) Ratio Glucose 120 H (70-110) mg/dL POC Glucose (mg/dL) 179 H (75-99) mg/dL Calcium 8.6 L (8.7-10.3) mg/dL Total Protein 5.3 L (6.2-8.2) g/dL Albumin 3.5 L (3.8-4.9) g/dL Microbiology - Last 24 Hours (Table) 11/12/21 22:14 Blood Culture Gram Stain - Preliminary Blood Blood Culture - Preliminary Streptococcus species 11/12/21 22:09 Blood Culture Gram Stain - Preliminary Blood 11/12/21 22:09 Blood Culture - Final Blood 11/12/21 22:14 Blood Culture - Final Blood Assessment and Plan (1) Bacteremia Current Visit: Yes Status: Acute Code(s): R78.81 - BACTEREMIA SNOMED Code(s): 9901865 Plan: 1patient with streptococcal bacteremia in this patient presented to hospital with weakness and unable to walk however no fever no elevated white count mildly positive UA with a question of possible skin contaminant versus deep infection. 2blood cultures will be repeated to document clearance of his bacteremia. 3obtain echocardiogram. 4continue with Rocephin while waiting for the culture to finalize We will follow on clinical condition and cultures to further adjust medication if needed Thank you for this consultation will follow this patient along with you Time with Patient: Greater than 30
[2021-11-15 07:35] LABS: Glucose,Whole Blood 98 mg/dL (75-99)
[2021-11-15] MEDS: INSULIN ASPART (NovoLOG) 100 UNIT/ML VIAL SQ SCH ×4 (08:26→20:22)
[2021-11-15] MEDS: OXYBUTYNIN 10 MG TAB.ER.24 PO SCH ×2 (08:59→09:06)
[2021-11-15] MEDS: HEPARIN SODIUM,PORCINE/PF 5,000 UNIT/0.5 ML SYRINGE SQ SCH ×2 (08:59→20:23)
[2021-11-15] MEDS: allopurinoL 100 MG TAB PO SCH (09:07)
[2021-11-15 11:22] LABS: Glucose,Whole Blood 125 mg/dL (75-99)
--- NOTE | 2021-11-15 16:23 | P.PN ---
Subjective Progress Note Date: 11/15/21 Hospital course: Patient is a very pleasant 86-year-old male with a past medical history of Parkinson's disease, dementia, type II pss-ubxlvfw-zftmaimvs diabetes mellitus, atrial fibrillation not on anticoagulation, COPD, BPH, and chronic kidney disease. Patient lives at home with his and presented to the emergency department secondary to failure to thrive with increased weakness and difficulties with ambulation over the past 2 weeks and progressively worsening. Patient's no longer able to care for him. Patient underwent full evaluation in the emergency department. Chest x-ray negative for acute cardiopulmonary process. Urinalysis negative for infection. CBC revealing mild normocytic normochromic anemia with hemoglobin of 10.5 with baseline hemoglobin of 9.6 and thrombocytopenia with platelet count of 63 and is currently at baseline per labs dating back to 2013. BMP consistent with stage III chronic kidney disease with BUN 38, creatinine 1.64, and GFR of 37 with baseline creatinine of 1.7. Code PCR was negative. Patient was admitted under our services with consultation to physical and occupational therapy. Blood cultures were obtained with preliminary results revealing gram positive cocci and chains. Patient started on IV antibiotic Rocephin pending final culture results. Physical exam: Patient seen and fully evaluated at bedside this morning. He was sitting up in the chair and remains alert to person and place only. Patient remains on IV antibiotics with Rocephin for treatment of bacteremia. Repeat culture showing no growth after 24 hours. Plan is for patient to be discharged to [facility], patient will be able to be discharged once repeat blood culture shows no growth after 48 hours. Infectious disease following. Patient vital signs unremarkable. We will obtain an echocardiogram secondary to unclear etiology of bacteremia. General: Nontoxic, no distress and appears stated age. Derm: Skin warm and dry, normal coloration for ethnicity. Head: Atraumatic, normocephalic and symmetric. patient very hard of hearing. Eyes: EOMs intact, no lid lag, and anicteric sclera Mouth: no lip lesions, mucus membranes moist Cardiovascular: regular rate and rhythm with normal S1S2, systolic murmur, positive posterior tibial pulses bilaterally, and cap refill < 2 seconds. Lungs: Respirations even, regular, and unlabored on room air. Lungs CTA bilaterally, no rhonchi, no rales, no wheezing, and no accessory muscle usage. Abdominal: soft, nontender to palpation, no guarding, no appreciable organomegaly Ext: No gross muscle atrophy, no edema, no contractures Movement and sensation is intact, patient displays bilateral lower extremity generalized weakness. Neuro: Speech clear, face symmetrical and CN II-XII grossly intact with no noted focal neuro deficits. GCS 14. Psych: Alert and oriented to person and place, confused to time and situation. Baseline mentation per report. Pleasant and cooperative. Assessment and Plan of Care: Bacteremia Failure to thrive likely secondary to above Generalized weakness likely secondary to above Parkinson's disease Alzheimer's dementia IV antibiotics with Rocephin Echocardiogram Preliminary blood cultures 2 of 2 both showing positive for gram-positive cocci in chains, awaiting final culture and sensitivity reports. Daily blood cultures until negative, repeat culture showing no growth 24 hours Infectious disease consulted, appreciate recommendations Patient tolerating oral intake, IV fluids discontinued. Fall precautions Consult to physical/occupational therapy Arrangements being made for placement in assisted facility upon discharge. Type II tvu-cwsndnx-unctkyktc diabetes mellitus Glycemic protocol with NovoLog sliding scale. Stage III chronic kidney disease Stable CODE STATUS: Full code DVT prophylaxis: heparin Discussed with: Patient and RN and patient's January Anticipated discharge date: Plans for discharge home tomorrow Anticipated discharge place: [facility] A total of 31 minutes was spent on the care of this complex patient more than 50% of the time was spent in counseling and care coordination. Objective - Vital Signs Vital signs: Vital Signs Temp 98.4 F 11/15/21 12:15 Pulse 72 11/15/21 12:15 Resp 14 11/15/21 12:15 BP 103/71 11/15/21 12:15 Pulse Ox 94 L 11/15/21 12:15 Intake & Output 11/14/21 11/15/21 11/15/21 18:59 06:59 18:59 Intake Total 950 700 Output Total 1200 Balance 950 -500 Weight 95.254 kg Intake: Intake, IV Titration 950 700 Amount Sodium Chloride 0.9% 1, 900 600 000 ml @ 75 mls/hr IV . [id number] [facility] Rx#:[id number] cefTRIAXone 2 gm In 50 100 Sodium Chloride 0.9% 50 ml @ 100 mls/hr IVPB Q24HR [facility] Rx#:[id number] Output: Urine 1200 Other: Voiding Method Indwelling Catheter Indwelling Catheter Indwelling Catheter # Bowel Movements 1 - Labs CBC & Chem 7: 11/14/21 05:33 11/14/21 05:33 Labs: Abnormal Lab Results - Last 24 Hours (Table) 11/14/21 11/14/21 11/15/21 Range/Units 17:05 20:09 07:26 POC Glucose (mg/dL) 129 H 126 H (75-99) mg/dL C-Reactive Protein (0.00-0.80) mg/dL Procalcitonin 0.18 H (0.02-0.09) ng/mL 11/15/21 11/15/21 Range/Units 07:26 11:21 POC Glucose (mg/dL) 125 H (75-99) mg/dL C-Reactive Protein 2.50 H (0.00-0.80) mg/dL Procalcitonin (0.02-0.09) ng/mL Microbiology - Last 24 Hours (Table) 11/14/21 05:33 Blood Culture - Preliminary Blood No Growth after 24 hours 11/12/21 22:14 Blood Culture Gram Stain - Preliminary Blood Blood Culture - Preliminary Non Hemolytic Strep 11/12/21 22:09 Blood Culture Gram Stain - Preliminary Blood Blood Culture - Preliminary Non Hemolytic Strep
[2021-11-15 17:11] LABS: Glucose,Whole Blood 142 mg/dL (75-99)
[2021-11-15 19:51] LABS: Glucose,Whole Blood 226 mg/dL (75-99)
[2021-11-15] MEDS: SERTRALINE 50 MG TAB PO SCH (20:22)
--- NOTE | 2021-11-15 23:24 | P.PN ---
Subjective Progress Note Date: 11/15/21 Principal diagnosis: Bacteremia Patient is a 86-year-old male presented to hospital as weakness inability to ambulate but still confused more than normal and did have low-grade fever positive UA consistent with UTI blood culture subsequently came back positive for hemolytic strep. On today's evaluation that is 11/15/2021 the patient is afebrile patient is breathing comfortably on room air patient denies having any chest pain or cough no abdominal pain no diarrhea Objective - Vital Signs Vital signs: Vital Signs Temp 96.7 F L 11/15/21 10:23 Pulse 72 11/15/21 10:24 Resp 14 11/15/21 10:24 BP 130/68 11/15/21 10:23 Pulse Ox 92 L 11/15/21 10:23 Intake & Output 11/14/21 11/15/21 11/15/21 18:59 06:59 18:59 Intake Total 950 700 Output Total 1200 Balance 950 -500 Weight 95.254 kg Intake: Intake, IV Titration 950 700 Amount Sodium Chloride 0.9% 1, 900 600 000 ml @ 75 mls/hr IV . [id number] [facility] Rx#:[id number] cefTRIAXone 2 gm In 50 100 Sodium Chloride 0.9% 50 ml @ 100 mls/hr IVPB Q24HR [facility] Rx#:[id number] Output: Urine 1200 Other: Voiding Method Indwelling Catheter Indwelling Catheter Indwelling Catheter # Bowel Movements 1 - Exam GENERAL DESCRIPTION: An elderly male up in the chair in no distress RESPIRATORY SYSTEM: Unlabored breathing , decreased breath sounds at bases HEART: S1 S2 regular rate and rhythm , ABDOMEN: Soft , no tenderness EXTREMITIES: No edema feet - Labs CBC & Chem 7: 11/14/21 05:33 11/14/21 05:33 Labs: Abnormal Lab Results - Last 24 Hours (Table) 11/14/21 11/14/21 11/15/21 Range/Units 17:05 20:09 07:26 POC Glucose (mg/dL) 129 H 126 H (75-99) mg/dL C-Reactive Protein (0.00-0.80) mg/dL Procalcitonin 0.18 H (0.02-0.09) ng/mL 11/15/21 11/15/21 Range/Units 07:26 11:21 POC Glucose (mg/dL) 125 H (75-99) mg/dL C-Reactive Protein 2.50 H (0.00-0.80) mg/dL Procalcitonin (0.02-0.09) ng/mL Microbiology - Last 24 Hours (Table) 11/14/21 05:33 Blood Culture - Preliminary Blood No Growth after 24 hours 11/12/21 22:14 Blood Culture Gram Stain - Preliminary Blood Blood Culture - Preliminary Non Hemolytic Strep 11/12/21 22:09 Blood Culture Gram Stain - Preliminary Blood Blood Culture - Preliminary Non Hemolytic Strep Assessment and Plan (1) Bacteremia Current Visit: Yes Status: Acute Code(s): R78.81 - BACTEREMIA SNOMED Code(s): 7348722 Plan: 1patient with streptococcal bacteremia in this patient presented to hospital with weakness and unable to walk however no fever no elevated white count mildly positive UA with a question of possible skin contaminant versus deep infection. 2blood cultures has been repeated to document clearance of his bacteremia. 3 echocardiogram is pending. 4patient to continue with Rocephin while waiting for the culture to finalize Time with Patient: Less than 30
[2021-11-16 07:15] LABS: Glucose,Whole Blood 105 mg/dL (75-99)
--- NOTE | 2021-11-16 07:24 | ECHOF ---
Referral Reason:Bacteremia unclear etiology MEASUREMENTS -------- HEIGHT: 182.9 cm WEIGHT: 95.3 kg BP: 103/71 RVIDd: 4.6 cm (< 3.3) IVSd: 1.5 cm (0.6 - 1.1) LVIDd: 4.8 cm (3.9 - 5.3) LVPWd: 1.7 cm (0.6 - 1.1) IVSs: 2.0 cm LVIDs: 2.8 cm LVPWs: 2.1 cm LA Diam: 5.2 cm (2.7 - 3.8) Ao Diam: 3.6 cm (2.0 - 3.7) AV Cusp: 1.6 cm (1.5 - 2.6) LA Diam: 4.6 cm (2.7 - 3.8) MV EXCURSION: 14.703 mm (> 18.000) MV EF SLOPE: 27 mm/s (70 - 150) EPSS: 0.6 cm MV E Anatoliy: 0.84 m/s MV DecT: 211 ms MV A Anatoliy: 0.29 m/s MV E/A Ratio: 2.90 RAP: 5.00 mmHg RVSP: 42.53 mmHg FINDINGS -------- Sinus rhythm. This was a technically difficult study with suboptimal apical views. The left ventricular size is normal. There is moderate concentric left ventricular hypertrophy. O verall left ventricular systolic function is normal with, an EF between 55 - 60 %. The right ventricle is moderate to severely enlarged. The left atrium is markedly dilated. The right atrium was not well visualized. 5.0mg of Lumason was utilized for enhancement of images Interatrial and interventricular septum intact. There is no evidence of aortic regurgitation. There is no evidence of aortic stenosis. Moderate mitral regurgitation is present. Nfyt-nm-befjdxmp tricuspid regurgitation present. There is mild to moderate pulmonary hypertension. The right ventricular systolic pressure, as measured by Doppler, is 42.53mmHg. There is no pulmonic regurgitation present. The aortic root size is normal. IVC Not well visulized. There is no pericardial effusion. CONCLUSIONS -------- 1. The left ventricular size is normal. 2. There is moderate concentric left ventricular hypertrophy. 3. Overall left ventricular systolic function is normal with, an EF between 55 - 60 %. 4. The right ventricle is moderate to severely enlarged. 5. The left atrium is markedly dilated. 6. Moderate mitral regurgitation is present. 7. Zejv-vx-aexqidol tricuspid regurgitation present. 8. There is mild to moderate pulmonary hypertension. 9. The right ventricular systolic pressure, as measured by Doppler, is 42.53mmHg. DATA ARCHITECT: Chiara Dover RDCS
[2021-11-16 09:15] LABS: African American GFR (CKD) 57.3 (60.0-200.0); Albumin 3.3 g/dL (3.8-4.9); Albumin/Globulin Ratio 1.83 (1.60-3.17); Anion Gap 8.7 mmol/L (10.00-18.00); BUN/Creat Ratio 19.69 Ratio (12.00-20.00); Blood Urea Nitrogen 25.6 mg/dL (9.0-27.0); Calcium 8.2 mg/dL (8.7-10.3); Carbon Dioxide 22.3 mmol/L (20.0-27.5); Globulin 1.8 g/dL (1.6-3.3); Non-African American GFR(CKD) 49.4 (60.0-200.0); Potassium 4.1 mmol/L (3.5-5.5); Total Bilirubin 0.3 mg/dL (0.30-1.20); Total Protein 5.1 g/dL (6.2-8.2)
[2021-11-16] MEDS: HEPARIN SODIUM,PORCINE/PF 5,000 UNIT/0.5 ML SYRINGE SQ SCH ×2 (09:56→20:30)
[2021-11-16] MEDS: allopurinoL 100 MG TAB PO SCH (09:56)
[2021-11-16] MEDS: OXYBUTYNIN 10 MG TAB.ER.24 PO SCH (09:56)
[2021-11-16] MEDS: INSULIN ASPART (NovoLOG) 100 UNIT/ML VIAL SQ SCH ×4 (10:07→22:38)
[2021-11-16 11:26] LABS: Glucose,Whole Blood 103 mg/dL (75-99)
--- NOTE | 2021-11-16 11:41 | CDI ---
Documentation Clarification Form Date: 11/16/2021 11:00:14 AM From: Sharon Carty RN CCDS Admit Date: 11/13/2021 02:47:00 PM Patient Name: Alen Swanson Visit Number: [id number] Discharge Date: ATTENTION: The Clinical Documentation Specialists (CDI) and [facility] Coding Staff appreciate your assistance in clarifying documentation. Please respond to the clarification below the line at the bottom and electronically sign. The CDI & [facility] Coding staff will review the response and follow-up if needed. Please note: Queries are made part of the Legal Health Record. If you have any questions, please contact the author of this message via ITS. Dr. Francoise Fong The patient presented with the following clinical indicators. Additional clarification regarding the etiology/cause of the clinical indicators is requested. History/Risk Factors: 86 y/o male presents to the ED with diffuse weakness. Previously seen in ED for similar complaints on 11/02 and was diagnosed with a UTI sent home on Levaquin. Medical History: DM2, AFIB, BPH, CKD III and Left nephrectomy. 11/13, H&P. Clinical Indicators: WBC: 11/12 5.8 Blood cultures: 11/12 Non-Hemolytic Strep Blood cultures: 11/13 No growth after 24hrs Vitals signs: B/P 115/94; HR 86; Temp 100.3F Oral; RR 24; SpO2 99% ra ID Consult: 11/14 Patent with streptococcal bacteremia in this patient presented to hospital with weakness and unable to walk however no fever no elevated white count mildly positive UA with a question of possible skin contaminant versus deep infection. ID Progress Note 11/15 did have low grade fever positive for UA consistent with UTI blood culture subsequently came back positive for hemolytic strep. Treatment: ID Consult: See above. Antibiotics: 11/13 current 11/16 Ceftriaxone 2gm IVPB Q24HR In your professional opinion, please clarify if these findings signify one of the following conditions: [ ] Sepsis POA [x] Sepsis ruled out [ ] Other, please specify [ ] Unable to determine SIRS Criteria: 2 or more of the following may indicate SIRS -Temperature < 96.8F (36C) or > 101.0F (38.3C) -Heart Rate > 90 bpm -Respiratory Rate > 20 breaths/min or PaCO2 < 32 mmHg -White Blood Cell Count > 12,000 or < 4,000 cells/mm3 or > 10% bands (Template Last Reviewed: September 2020) MTDD
--- NOTE | 2021-11-16 12:09 | CDI ---
Documentation Clarification Form Date: 11/16/2021 11:47:42 AM From: Sharon Carty RN CCDS Admit Date: 11/13/2021 02:47:00 PM Patient Name: Alen Swanson Visit Number: [id number] Discharge Date: ATTENTION: The Clinical Documentation Specialists (CDI) and [facility] Coding Staff appreciate your assistance in clarifying documentation. Please respond to the clarification below the line at the bottom and electronically sign. The CDI & [facility] Coding staff will review the response and follow-up if needed. Please note: Queries are made part of the Legal Health Record. If you have any questions, please contact the author of this message via ITS. Dr. Francoise Fong Your patient has the documented symptom of Confusion [insert date, location]. Additional clarification regarding the etiology/cause of this symptom is requested. History/Risk Factors: 86 y/o male presents to the ED with diffuse weakness and more confused than usual. Previously seen in ED for similar complaints on 11/02 and was diagnosed with a UTI sent home on Levaquin. Medical History: DM2, Dementia, AFIB, BPH, CKD III and Left nephrectomy. 11/13, H&P. Clinical Indicators: 11/13, H&P : Psych Awake, confused, oriented only to person. 11/14, Internal Medicine progress note: Psych Alert and oriented to person and place, confused to time and situation. Baseline mentation per report. Pleasant and cooperative. WBC: 11/12 5.8 Blood cultures: 11/12 Non-Hemolytic Strep Blood cultures: 11/13 No growth after 24hrs UA: Leukocytosis esterase small; Wbc 6; Wbc clumps rare; Urine bacteria few; Urine mucus rare. Treatment: 11/13 current 11/16 Ceftriaxone 2gm IVPB Q24HR Please clarify the etiology of the symptom of Confusion: [ ] Metabolic Encephalopathy due to (please specifiy) [x] Dementia with Behavioral Disturbance [ ] Other condition (please specify) [ ] Unable to determine (Template Last Revised: September 2020) MTDD
--- NOTE | 2021-11-16 15:02 | P.PN ---
Subjective Progress Note Date: 11/16/21 Patient has no new complaints. Unclear source of bacteremia. Follow blood cultures remained clear. Gen: awake, alert HEENT: normocephalic, atraumatic, good hearing acuity, moist mucous membranes Resp: good air exchange, breathing comfortably with no accessory muscle use CVS: good distal perfusion x 4, GI: soft, NTTP, ND : no SPT, no CVAT, macdonald catheter is present MSK: no pitting edema, no clubbing Neuro: non-focal, moving all extremities Psych: cooperative, euthymic mood Assessment/plan: Bacteremia Failure to thrive likely secondary to above Generalized weakness likely secondary to above Parkinson's disease Alzheimer's dementia IV antibiotics with Rocephin Echocardiogram Preliminary blood cultures 2 of 2 both showing positive for gram-positive cocci in chains, awaiting final culture and sensitivity reports. Daily blood cultures until negative, repeat culture showing no growth 24 hours Infectious disease consulted, appreciate recommendations Patient tolerating oral intake, IV fluids discontinued. Fall precautions Consult to physical/occupational therapy Arrangements being made for placement in group home facility upon discharge. Type II wuh-wdbgctv-qfloefssv diabetes mellitus Glycemic protocol with NovoLog sliding scale. Stage III chronic kidney disease Stable CODE STATUS: Full code DVT prophylaxis: heparin Discussed with: Patient and RN and patient's January Anticipated discharge date: Plans for discharge home tomorrow Anticipated discharge place: [facility] A total of 31 minutes was spent on the care of this complex patient more than 50% of the time was spent in counseling and care coordination. Objective - Vital Signs Vital signs: Vital Signs Temp 98.9 F 11/16/21 12:55 Pulse 53 L 11/16/21 12:55 Resp 18 11/16/21 12:55 BP 134/77 11/16/21 12:55 Pulse Ox 95 11/16/21 12:55 Intake & Output 11/15/21 11/16/21 11/16/21 18:59 06:59 18:59 Intake Total 780 218 Output Total 700 1000 200 Balance 80 -782 -200 Weight 95.254 kg Intake: IV 240 0.9 240 Intake, IV Titration 100 Amount cefTRIAXone 2 gm In 100 Sodium Chloride 0.9% 50 ml @ 100 mls/hr IVPB Q24HR [facility] Rx#:[id number] Oral 540 118 Output: Urine 700 1000 200 Uretheral (Macdonald) 300 800 Other: Voiding Method Indwelling Catheter Indwelling Catheter Indwelling Catheter # Bowel Movements 1 - Labs CBC & Chem 7: 11/14/21 05:33 11/16/21 05:41 Labs: Abnormal Lab Results - Last 24 Hours (Table) 11/15/21 11/15/21 11/16/21 Range/Units 17:09 19:45 05:41 D-Dimer 1.00 H (<0.60) mg/L FEU Anion Gap (10.00-18.00) mmol/L Est GFR (CKD-EPI)AfAm (60.0-200.0) Est GFR (CKD-EPI)NonAf (60.0-200.0) Glucose (70-110) mg/dL POC Glucose (mg/dL) 142 H 226 H (75-99) mg/dL Calcium (8.7-10.3) mg/dL AST (14-35) U/L Total Protein (6.2-8.2) g/dL Albumin (3.8-4.9) g/dL 11/16/21 11/16/21 11/16/21 Range/Units 05:41 07:10 11:24 D-Dimer (<0.60) mg/L FEU Anion Gap 8.70 L (10.00-18.00) mmol/L Est GFR (CKD-EPI)AfAm 57.3 L (60.0-200.0) Est GFR (CKD-EPI)NonAf 49.4 L (60.0-200.0) Glucose 118 H (70-110) mg/dL POC Glucose (mg/dL) 105 H 103 H (75-99) mg/dL Calcium 8.2 L (8.7-10.3) mg/dL AST 11 L (14-35) U/L Total Protein 5.1 L (6.2-8.2) g/dL Albumin 3.3 L (3.8-4.9) g/dL Microbiology - Last 24 Hours (Table) 11/15/21 07:26 Blood Culture - Preliminary Blood No Growth after 24 hours 11/14/21 05:33 Blood Culture - Preliminary Blood No Growth after 48 hours 11/12/21 22:09 Blood Culture Gram Stain - Final Blood Blood Culture - Final Non Hemolytic Strep 11/12/21 22:14 Blood Culture Gram Stain - Final Blood Blood Culture - Final Non Hemolytic Strep
[2021-11-16 17:08] LABS: Glucose,Whole Blood 127 mg/dL (75-99)
[2021-11-16] MEDS: SERTRALINE 50 MG TAB PO SCH (20:23)
[2021-11-16 20:43] LABS: Glucose,Whole Blood 168 mg/dL (75-99)
--- NOTE | 2021-11-16 22:37 | P.PN ---
Subjective Progress Note Date: 11/16/21 Principal diagnosis: Bacteremia Patient is a 86-year-old male presented to hospital as weakness inability to ambulate but still confused more than normal and did have low-grade fever positive UA consistent with UTI blood culture subsequently came back positive for hemolytic strep. On today's evaluation that is 11/16/2021 the patient remains to be afebrile, patient is breathing comfortably on room air , patient denies having any chest pain shortness of breath or cough no abdominal pain no diarrhea Objective - Vital Signs Vital signs: Vital Signs Temp 98.9 F 11/16/21 12:55 Pulse 53 L 11/16/21 12:55 Resp 18 11/16/21 12:55 BP 134/77 11/16/21 12:55 Pulse Ox 95 11/16/21 12:55 Intake & Output 11/15/21 11/16/21 11/16/21 18:59 06:59 18:59 Intake Total 780 218 Output Total 700 1000 Balance 80 -782 Weight 95.254 kg Intake: IV 240 0.9 240 Intake, IV Titration 100 Amount cefTRIAXone 2 gm In 100 Sodium Chloride 0.9% 50 ml @ 100 mls/hr IVPB Q24HR [facility] Rx#:[id number] Oral 540 118 Output: Urine 700 1000 Uretheral (Ramirez) 300 800 Other: Voiding Method Indwelling Catheter Indwelling Catheter Indwelling Catheter # Bowel Movements 1 - Exam GENERAL DESCRIPTION: An elderly male up in the chair in no distress RESPIRATORY SYSTEM: Unlabored breathing , decreased breath sounds at bases HEART: S1 S2 regular rate and rhythm , ABDOMEN: Soft , no tenderness EXTREMITIES: No edema feet - Labs CBC & Chem 7: 11/14/21 05:33 11/16/21 05:41 Labs: Abnormal Lab Results - Last 24 Hours (Table) 11/15/21 11/15/21 11/16/21 Range/Units 17:09 19:45 05:41 D-Dimer 1.00 H (<0.60) mg/L FEU Anion Gap (10.00-18.00) mmol/L Est GFR (CKD-EPI)AfAm (60.0-200.0) Est GFR (CKD-EPI)NonAf (60.0-200.0) Glucose (70-110) mg/dL POC Glucose (mg/dL) 142 H 226 H (75-99) mg/dL Calcium (8.7-10.3) mg/dL AST (14-35) U/L Total Protein (6.2-8.2) g/dL Albumin (3.8-4.9) g/dL 11/16/21 11/16/21 11/16/21 Range/Units 05:41 07:10 11:24 D-Dimer (<0.60) mg/L FEU Anion Gap 8.70 L (10.00-18.00) mmol/L Est GFR (CKD-EPI)AfAm 57.3 L (60.0-200.0) Est GFR (CKD-EPI)NonAf 49.4 L (60.0-200.0) Glucose 118 H (70-110) mg/dL POC Glucose (mg/dL) 105 H 103 H (75-99) mg/dL Calcium 8.2 L (8.7-10.3) mg/dL AST 11 L (14-35) U/L Total Protein 5.1 L (6.2-8.2) g/dL Albumin 3.3 L (3.8-4.9) g/dL Microbiology - Last 24 Hours (Table) 11/15/21 07:26 Blood Culture - Preliminary Blood No Growth after 24 hours 11/14/21 05:33 Blood Culture - Preliminary Blood No Growth after 48 hours 11/12/21 22:09 Blood Culture Gram Stain - Final Blood Blood Culture - Final Non Hemolytic Strep 11/12/21 22:14 Blood Culture Gram Stain - Final Blood Blood Culture - Final Non Hemolytic Strep Assessment and Plan (1) Bacteremia Current Visit: Yes Status: Acute Code(s): R78.81 - BACTEREMIA SNOMED Code(s): 1662696 Plan: 1patient with streptococcal bacteremia in this patient presented to hospital with weakness and unable to walk however no fever no elevated white count mildly positive UA with a question of possible skin contaminant versus deep infection. 2blood cultures has been repeated and has been negative so for 3 echocardiogram didn't show any abnormalities suspicious for endocarditis 4patient has cleared his bacteremia very quickly and no evidence of any deep infection continue with the Rocephin finishing therapy short course of oral Ceftin and close outpatient follow-up Time with Patient: Less than 30
[2021-11-17 06:12] VITALS: BP 101/58; PULSE 116; RESP 20; TEMP 99.2
[2021-11-17 07:12] LABS: Glucose,Whole Blood 134 mg/dL (75-99)
[2021-11-17] MEDS: OXYBUTYNIN 10 MG TAB.ER.24 PO SCH (08:10)
[2021-11-17] MEDS: INSULIN ASPART (NovoLOG) 100 UNIT/ML VIAL SQ SCH (08:10)
[2021-11-17] MEDS: allopurinoL 100 MG TAB PO SCH (08:10)
[2021-11-17] MEDS: HEPARIN SODIUM,PORCINE/PF 5,000 UNIT/0.5 ML SYRINGE SQ SCH (08:10)
--- NOTE | 2021-11-17 09:48 | P.DS ---
Providers Date of admission: 11/13/21 14:47 Expected date of discharge: 11/17/21 Attending physician: Marisel De Oliveira MD Consults: 11/14/21 11:06 Consult Physician Routine Consulting Provider: Annalisa Arias Consult Reason/Comments: bacteremia Do you want consulting provider notified?: Yes Primary care physician: [employer] Course: Bacteremia Failure to thrive likely secondary to above Generalized weakness likely secondary to above Parkinson's disease Alzheimer's dementia Type II [id number] diabetes mellitus Stage III chronic kidney disease Patient is a very pleasant 86-year-old male with a past medical history of Parkinson's disease, dementia, type II fsy-[id number] diabetes mellitus, atrial fibrillation not on anticoagulation, COPD, BPH, and chronic kidney disease. Patient lives at home with his and presented to the emergency department secondary to failure to thrive with increased weakness and difficulties with ambulation over the past 2 weeks and progressively worsening. Patient underwent full evaluation in the emergency department. Chest x-ray negative for acute cardiopulmonary process. Urinalysis negative for infection. CBC revealing mild normocytic normochromic anemia with hemoglobin of 10.5 with baseline hemoglobin of 9.6 and thrombocytopenia with platelet count of 63 and is currently at baseline per labs dating back to 2014. BMP consistent with stage III chronic kidney disease with BUN 38, creatinine 1.64, and GFR of 37 with baseline creatinine of 1.7. Code PCR was negative. Patient was admitted under our services with consultation to physical and occupational therapy. Blood cultures were obtained with preliminary results revealing gram positive cocci and chains. Patient started on IV antibiotic Rocephin which ultimately grew alpha-hemolytic streptococcus. Repeat BCx showed clearance. Echocardiogram showed good EF, mod-severe RVE, mild pHTN, but no valvular abnormalities concerning for endocarditis. Pt seen and cleared by ID. No obvious source of superficial or deep infection to correlate with bacteremia. Pt was discharged ultimately to [facility] with plan for an additional 10days of PO ceftin. I spent 38 minutes coordinating this complex discharge Gen: awake, alert HEENT: normocephalic, atraumatic, good hearing acuity, moist mucous membranes Resp: good air exchange, breathing comfortably with no accessory muscle use CVS: good distal perfusion x 4, GI: soft, NTTP, ND : no SPT, no CVAT, macdonald catheter is present MSK: trace pitting edema, no clubbing Neuro: non-focal, moving all extremities Psych: cooperative, euthymic mood Patient Condition at Discharge: Good Plan - Discharge Summary Discharge Rx Participant: No New Discharge Prescriptions: New Cefuroxime Axetil [Ceftin] 500 mg PO BID 10 Days #20 tab Continue Multivitamins, Thera [Multivitamin (formulary)] 1 tab PO DAILY Ferrous Sulfate [Feosol] 325 mg PO BID Ascorbic Acid [Vitamin C] 500 mg PO DAILY allopurinoL [Zyloprim] 100 mg PO DAILY Sertraline [Zoloft] 50 mg PO HS Pioglitazone [Actos] 15 mg PO DAILY Tolterodine Tartrate [Detrol LA] 4 mg PO DAILY Oxybutynin Chloride [Oxybutynin Chloride ER] 10 mg PO DAILY Discontinued levoFLOXacin 500 mg PO DAILY Discharge Medication List Ferrous Sulfate [Feosol] 325 mg PO BID 03/25/14 [History] Multivitamins, Thera [Multivitamin (formulary)] 1 tab PO DAILY 03/25/14 [History] Ascorbic Acid [Vitamin C] 500 mg PO DAILY 11/21/16 [History] Sertraline [Zoloft] 50 mg PO HS 01/25/20 [History] allopurinoL [Zyloprim] 100 mg PO DAILY 01/25/20 [History] Oxybutynin Chloride [Oxybutynin Chloride ER] 10 mg PO DAILY 05/13/21 [History] Pioglitazone [Actos] 15 mg PO DAILY 05/13/21 [History] Tolterodine Tartrate [Detrol LA] 4 mg PO DAILY 11/12/21 [History] Cefuroxime Axetil [Ceftin] 500 mg PO BID 10 Days #20 tab 11/17/21 [Rx] Follow up Appointment(s)/Referral(s): Darvin Hurd DO [Primary Care Provider] - 1-2 days Discharge Disposition: TRANSFER TO SNF/ECF
== END 2021-11-17 11:10 | DRG 872 ==
LOC: EC 20:42 → 5NMEDONC 11-13 04:33 → OBSVTOIN 11-13 14:47 → 5NMEDONC 11-13 16:11
PROVIDERS: ADMIT Internal Medicine; ATTEND Internal Medicine
DX: R78.81 Bacteremia (principal); N39.0 Urinary tract infection, site not specified; F02.81 Dementia in other diseases classified elsewhere, unspecified severity, with behavioral disturbance; D64.9 Anemia, unspecified; D69.6 Thrombocytopenia, unspecified; Z20.822 Contact with and (suspected) exposure to COVID-19; M13.0 Polyarthritis, unspecified; J30.2 Other seasonal allergic rhinitis; I08.1 Rheumatic disorders of both mitral and tricuspid valves; I27.20 Pulmonary hypertension, unspecified; B95.4 Other streptococcus as the cause of diseases classified elsewhere; E11.22 Type 2 diabetes mellitus with diabetic chronic kidney disease; J44.9 Chronic obstructive pulmonary disease, unspecified; N18.30 Chronic kidney disease, stage 3 unspecified; F32.A Depression, unspecified; G20 Parkinson's disease; G30.9 Alzheimer's disease, unspecified; H54.61 Unqualified visual loss, right eye, normal vision left eye; H91.90 Unspecified hearing loss, unspecified ear; I12.9 Hypertensive chronic kidney disease with stage 1 through stage 4 chronic kidney disease, or unspecified chronic kidney disease; I48.91 Unspecified atrial fibrillation; N40.0 Benign prostatic hyperplasia without lower urinary tract symptoms; R62.7 Adult failure to thrive; Z79.84 Long term (current) use of oral hypoglycemic drugs; Z79.899 Other long term (current) drug therapy; Z85.841 Personal history of malignant neoplasm of brain; Z87.891 Personal history of nicotine dependence; Z90.5 Acquired absence of kidney; Z87.01 Personal history of pneumonia (recurrent); Z92.3 Personal history of irradiation
CPT/HCPCS: 36415; 71045; 80053; 81001; 83036; 83605; 83735; 84145; 84484; 85025; 85027; 85379; 85610; 85652; 85730; 86140; 87040; 87077; 87186; 87635; 93005; 93306; 96361; 96365; 96372; 99285

== ENCOUNTER 2021-12-11 21:05 | Inpatient (IN) | payer MEDICARE ==
--- NOTE | 2021-12-11 21:47 | XR ---
EXAMINATION TYPE: XR chest 1V portable DATE OF EXAM: 12/11/2021 9:36 PM COMPARISON: Chest radiographs from 11/12/2021. TECHNIQUE: XR chest 1V portable Frontal view of the chest. CLINICAL INDICATION:Male, 86 years old with history of cough; FINDINGS: Lungs/Pleura: There is a lung lines. Bibasilar airspace opacities likely representing atelectasis. No evidence pleural effusion or pneumothorax. Pulmonary vascularity: Unremarkable. Heart/mediastinum: Cardiomediastinal silhouette is unremarkable. Musculoskeletal: No acute osseous pathology. IMPRESSION: Bibasilar suspected atelectasis given low lung lines. Superimposed infection not entirely excluded.
[2021-12-11 21:52] LABS: Basophils % (A) 0 %; Eosinophils % (A) 0 %; HCT 30.1 % (39.0-53.0); HGB 9.5 gm/dL (13.0-17.5); Hypochromasia Moderate; Lymphocytes # (A) 1.4 k/uL (1.0-4.8); Lymphocytes % (A) 15 %; MCHC 31.5 g/dL (31.0-37.0); MCV 101.8 fL (80.0-100.0); Macrocytosis Slight; Monocytes # (A) 0.4 k/uL (0-1.0); Monocytes % (A) 5 %; Neutrophils # (A) 7.4 k/uL (1.3-7.7); Neutrophils % (A) 78 %; RBC 2.96 m/uL (4.30-5.90); RDW 15.2 % (11.5-15.5); WBC 9.5 k/uL (3.8-10.6)
[2021-12-11 21:53] LABS: VBG PH 7.3 (7.31-7.41)
[2021-12-11 22:01] LABS: Albumin 3.3 g/dL (3.5-5.0); Calcium 8.7 mg/dL (8.4-10.2); Potassium 4.2 mmol/L (3.5-5.1); Total Bilirubin 0.7 mg/dL (0.2-1.3); Total Protein 5.8 g/dL (6.3-8.2)
--- NOTE | 2021-12-11 22:06 | ED ---
General Adult HPI - General Chief complaint: Shortness of Breath Stated complaint: SOB Time Seen by Provider: 12/11/21 21:09 Source: EMS Mode of arrival: EMS - History of Present Illness Initial comments: 's patient is an 86-year-old man transported here by ambulance from [facility]. The patient there was reported to be short of breath. When I interview the patient he is not having complaints. He states that his breathing feels fine. He is not having any pain. He recognizes he is at the hospital, but he is not oriented to date. -: unknown Severity scale (1-10): 0 Consistency: now resolved Improves with: none Worsens with: none Associated Symptoms: denies other symptoms - Related Data Home Medications Medication Instructions Recorded Confirmed Ferrous Sulfate [Feosol] 325 mg PO BID@0900,209903/25/14 12/11/21 Multivitamins, Thera [Multivitamin 1 tab PO DAILY@0900 03/25/14 12/11/21 (formulary)] Ascorbic Acid [Vitamin C] 500 mg PO DAILY@0900 11/21/16 12/11/21 Sertraline [Zoloft] 50 mg PO HS@209901/25/20 12/11/21 allopurinoL [Zyloprim] 100 mg PO DAILY@89901/25/20 12/11/21 Oxybutynin Chloride [Oxybutynin 10 mg PO DAILY@89905/13/21 12/11/21 Chloride ER] Pioglitazone [Actos] 15 mg PO DAILY@89905/13/21 12/11/21 Tolterodine Tartrate [Detrol LA] 4 mg PO HS@209911/12/21 12/11/21 Acetaminophen [Tylenol] 650 mg PO Q4H PRN 12/11/21 12/11/21 Lactose-Reduced Food [Ensure Plus] 240 ml PO DAILY@89912/11/21 12/11/21 risperiDONE [RisperDAL] 0.25 mg PO DAILY@0900 12/11/21 12/11/21 risperiDONE [RisperDAL] 0.5 mg PO DAILY@1400 12/11/21 12/11/21 Allergies Allergy/AdvReac Type Severity Reaction Status Date / Time No Known Allergies Allergy Verified 12/11/21 22:11 Review of Systems ROS Statement: Those systems with pertinent positive or pertinent negative responses have been documented in the HPI. ROS Other: All systems not noted in ROS Statement are negative. Limitations: ROS unobtainable due to patients medical condition (There is some underlying dementia) Respiratory: Reports: cough. Denies: dyspnea Cardiovascular: Denies: chest pain Gastrointestinal: Denies: abdominal pain, vomiting Neurological: Denies: headache Past Medical History Past Medical History: Atrial Fibrillation, Cancer, COPD, Diabetes Mellitus, Eye Disorder, Hearing Disorder / Deafness, Hypertension, Pneumonia, Prostate Disorder, Renal Disease Additional Past Medical History / Comment(s): Pt recently admitted to [facility] on 01/25/20 with a mechanical fall/hematoma R buttock and acute blood loss anemia. Other hx: 2010 Brain cancer with surgery and radiation, L nephrectomy d/t deteriorating kidney, CKD stage III, BPH, chronic thrombocytopenia, chronic anem ia, diet controlled diabetes, generalized arthritis, L2 compression fracture, blind R eye, [place] blaterally, seasonal allergies. 05/14/21 admitted with abdominal hematoma History of Any Multi-Drug Resistant Organisms: None Reported Additional Past Surgical History / Comment(s): L nephrectomy, brain tumor removal, bilateral cataract removals, colonoscopy. Past Anesthesia/Blood Transfusion Reactions: No Reported Reaction Additional Past Anesthesia/Blood Transfusion Reaction / Comment(s): Pt has rece ived blood in past without reaction. Past Psychological History: Depression Smoking Status: Former smoker Past Alcohol Use History: None Reported Past Drug Use History: None Reported - Past Family History Father Family Medical History: No Reported History Additional Family Medical History / Comment(s): Father was healthy. He at the age of 62yrs in a MVA. Mother Additional Family Medical History / Comment(s): Mother at the age of 86yrs of "heart problems." Brother(s) Additional Family Medical History / Comment(s): Patient has 3 brothers and one is passed from old age. Patient has 4 sisters with no major medical problems. Patient had 2 children one from muscular dystrophy and one is alive with no major medical problems. General Exam General appearance: alert, in no apparent distress Head exam: Present: atraumatic, normocephalic Eye exam: Present: normal appearance. Absent: scleral icterus, conjunctival injection Neck exam: Present: normal inspection, full ROM Respiratory exam: Present: rhonchi, other (Occasional nonproductive cough during exam). Absent: respiratory distress, wheezes, rales, stridor Cardiovascular Exam: Present: tachycardia, irregular rhythm, systolic murmur. Absent: diastolic murmur, rubs, gallop GI/Abdominal exam: Present: soft. Absent: distended, tenderness, guarding, rebound, rigid, mass exam: Present: other (Chronic Ramirez catheter present) Extremities exam: Present: normal inspection, normal capillary refill, pedal edema. Absent: calf tenderness Neurological exam: Present: alert. Absent: oriented X3 (Patient is not oriented to date.) Skin exam: Present: warm, dry, intact, normal color. Absent: rash Course Vital Signs 12/11/21 12/11/21 12/11/21 21:06 22:00 22:16 Temperature 98.8 F Pulse Rate 118 H 112 H Respiratory 28 H 24 26 H Rate Blood Pressure 123/77 119/72 O2 Sat by Pulse 100 95 Oximetry 12/12/21 00:00 Temperature Pulse Rate 98 Respiratory 20 Rate Blood Pressure 121/71 O2 Sat by Pulse 98 Oximetry Medical Decision Making - Lab Data Result diagrams: 12/11/21 21:40 12/11/21 21:40 Lab Results 12/11/21 12/11/21 12/11/21 Range/Units 21:40 21:40 21:40 WBC 9.5 (3.8-10.6) k/uL RBC 2.96 L (4.30-5.90) m/uL Hgb 9.5 L (13.0-17.5) gm/dL Hct 30.1 L (39.0-53.0) % MCV 101.8 H (80.0-100.0) fL MCH 32.0 (25.0-35.0) pg MCHC 31.5 (31.0-37.0) g/dL RDW 15.2 (11.5-15.5) % Plt Count 83 L (150-450) k/uL MPV 12.0 Neutrophils % 78 % Lymphocytes % 15 % Monocytes % 5 % Eosinophils % 0 % Basophils % 0 % Neutrophils # 7.4 (1.3-7.7) k/uL Lymphocytes # 1.4 (1.0-4.8) k/uL Monocytes # 0.4 (0-1.0) k/uL Eosinophils # 0.0 (0-0.7) k/uL Basophils # 0.0 (0-0.2) k/uL Manual Slide Review Performed Hypochromasia Moderate Poikilocytosis (manual Present Macrocytosis Slight Ovalocytes Present PT 11.0 (9.0-12.0) sec INR 1.0 (<1.2) APTT 26.9 (22.0-30.0) sec D-Dimer 1.13 H (<0.60) mg/L FEU VBG pH (7.31-7.41) VBG pCO2 (37-51) mmHg VBG HCO3 (24-28) mmol/L Sodium 143 (137-145) mmol/L Potassium 4.2 (3.5-5.1) mmol/L Chloride 110 H (98-107) mmol/L Carbon Dioxide 24 (22-30) mmol/L Anion Gap 9 mmol/L BUN 51 H (9-20) mg/dL Creatinine 1.61 H (0.66-1.25) mg/dL Est GFR (CKD-EPI)AfAm 44 (>60 ml/min/1.73 sqM) Est GFR (CKD-EPI)NonAf 38 (>60 ml/min/1.73 sqM) Glucose 169 H (74-99) mg/dL Plasma Lactic Acid Ralph (0.7-2.0) mmol/L Calcium 8.7 (8.4-10.2) mg/dL Total Bilirubin 0.7 (0.2-1.3) mg/dL AST 23 (17-59) U/L ALT 23 (4-49) U/L Alkaline Phosphatase 73 (38-126) U/L Troponin I (0.000-0.034) ng/mL NT-Pro-B Natriuret Pep pg/mL Total Protein 5.8 L (6.3-8.2) g/dL Albumin 3.3 L (3.5-5.0) g/dL Coronavirus (PCR) (Not Detectd) Influenza Type A RNA (Not Detectd) Influenza Type B (PCR) (Not Detectd) 12/11/21 12/11/21 12/11/21 Range/Units 21:40 21:40 21:40 WBC (3.8-10.6) k/uL RBC (4.30-5.90) m/uL Hgb (13.0-17.5) gm/dL Hct (39.0-53.0) % MCV (80.0-100.0) fL MCH (25.0-35.0) pg MCHC (31.0-37.0) g/dL RDW (11.5-15.5) % Plt Count (150-450) k/uL MPV Neutrophils % % Lymphocytes % % Monocytes % % Eosinophils % % Basophils % % Neutrophils # (1.3-7.7) k/uL Lymphocytes # (1.0-4.8) k/uL Monocytes # (0-1.0) k/uL Eosinophils # (0-0.7) k/uL Basophils # (0-0.2) k/uL Manual Slide Review Hypochromasia Poikilocytosis (manual Macrocytosis Ovalocytes PT (9.0-12.0) sec INR (<1.2) APTT (22.0-30.0) sec D-Dimer (<0.60) mg/L FEU VBG pH (7.31-7.41) VBG pCO2 (37-51) mmHg VBG HCO3 (24-28) mmol/L Sodium (137-145) mmol/L Potassium (3.5-5.1) mmol/L Chloride (98-107) mmol/L Carbon Dioxide (22-30) mmol/L Anion Gap mmol/L BUN (9-20) mg/dL Creatinine (0.66-1.25) mg/dL Est GFR (CKD-EPI)AfAm (>60 ml/min/1.73 sqM) Est GFR (CKD-EPI)NonAf (>60 ml/min/1.73 sqM) Glucose (74-99) mg/dL Plasma Lactic Acid Ralph 1.7 (0.7-2.0) mmol/L Calcium (8.4-10.2) mg/dL Total Bilirubin (0.2-1.3) mg/dL AST (17-59) U/L ALT (4-49) U/L Alkaline Phosphatase (38-126) U/L Troponin I 0.014 (0.000-0.034) ng/mL NT-Pro-B Natriuret Pep 1670 pg/mL Total Protein (6.3-8.2) g/dL Albumin (3.5-5.0) g/dL Coronavirus (PCR) (Not Detectd) Influenza Type A RNA (Not Detectd) Influenza Type B (PCR) (Not Detectd) 12/11/21 12/11/21 12/11/21 Range/Units 21:40 21:58 21:58 WBC (3.8-10.6) k/uL RBC (4.30-5.90) m/uL Hgb (13.0-17.5) gm/dL Hct (39.0-53.0) % MCV (80.0-100.0) fL MCH (25.0-35.0) pg MCHC (31.0-37.0) g/dL RDW (11.5-15.5) % Plt Count (150-450) k/uL MPV Neutrophils % % Lymphocytes % % Monocytes % % Eosinophils % % Basophils % % Neutrophils # (1.3-7.7) k/uL Lymphocytes # (1.0-4.8) k/uL Monocytes # (0-1.0) k/uL Eosinophils # (0-0.7) k/uL Basophils # (0-0.2) k/uL Manual Slide Review Hypochromasia Poikilocytosis (manual Macrocytosis Ovalocytes PT (9.0-12.0) sec INR (<1.2) APTT (22.0-30.0) sec D-Dimer (<0.60) mg/L FEU VBG pH 7.30 L (7.31-7.41) VBG pCO2 49 (37-51) mmHg VBG HCO3 23 L (24-28) mmol/L Sodium (137-145) mmol/L Potassium (3.5-5.1) mmol/L Chloride (98-107) mmol/L Carbon Dioxide (22-30) mmol/L Anion Gap mmol/L BUN (9-20) mg/dL Creatinine (0.66-1.25) mg/dL Est GFR (CKD-EPI)AfAm (>60 ml/min/1.73 sqM) Est GFR (CKD-EPI)NonAf (>60 ml/min/1.73 sqM) Glucose (74-99) mg/dL Plasma Lactic Acid Ralph (0.7-2.0) mmol/L Calcium (8.4-10.2) mg/dL Total Bilirubin (0.2-1.3) mg/dL AST (17-59) U/L ALT (4-49) U/L Alkaline Phosphatase (38-126) U/L Troponin I (0.000-0.034) ng/mL NT-Pro-B Natriuret Pep pg/mL Total Protein (6.3-8.2) g/dL Albumin (3.5-5.0) g/dL Coronavirus (PCR) Not Detected (Not Detectd) Influenza Type A RNA Not Detected (Not Detectd) Influenza Type B (PCR) Not Detected (Not Detectd) Disposition Clinical Impression: Atrial fibrillation with rapid ventricular response, Elevated d-dimer Disposition: ADMITTED IP TO THIS HOSP Condition: Fair Referrals: Wilfred Cazares MD [Primary Care Provider] - 1-2 days Time of Disposition: 00:30
[2021-12-11 22:10] LABS: Partial Thromboplastin Time 26.9 sec (22.0-30.0)
[2021-12-11 22:23] LABS: Ovalocytes Present; Poikilocytosis (M) Present
[2021-12-11 22:24] LABS: Platelet Count 83 k/uL (150-450)
[2021-12-12] MEDS ORDERED: DILTIAZEM DRIP BOLUS FROM BAG 1 MG SOLN IV ONE (00:21)
[2021-12-12] MEDS ORDERED: DILTIAZEM 125 MG in SODIUM CHLORIDE 0.9% 100 ML IV SCH (00:30)
[2021-12-12] MEDS ORDERED: NITROGLYCERIN SL TABS 0.4 MG TAB SUBLINGUAL PRN (00:42)
[2021-12-12] MEDS ORDERED: ENOXAPARIN 100 MG/ML SYRINGE SQ STA (01:28)
[2021-12-12 06:12] LABS: Glucose,Whole Blood 189 mg/dL (75-99)
--- NOTE | 2021-12-12 07:40 | P.HPIM ---
History of Present Illness H&P Date: 12/12/21 HISTORY OF PRESENT ILLNESS This is an 86-year-old male patient of Dr. Hurd with past medical history of Parkinsons disease, Alzheimers dementia, diabetes mellitus type 2, chronic atrial fibrillation not on anticoagulation due to retroperitoneal hematoma, history of pneumonia, benign prostatic hypertrophy, chronic kidney disease with history of left-sided nephrectomy, history of large retroperitoneal hematoma 04/2021, history of aspiration pneumonia. Patient was hospitalized at [facility] due to failure to thrive increasing weakness and difficulty ambulatingfor 2 weeks and progressively worsening. Patient was treated for UTI and streptococcal bacteremia seen by infectious disease thought this was a contamination. Echocardiogram did not show any abnormalities suspicious for endocarditis. ID recommended a short course of Ceftin and patient was discharged to [facility] for subacute rehab. The patient has been doing well at the shelter until yesterday staph related that patient was having chest pain. Patient was transferred to [facility] emergency center for evaluation. He was found to be afebrile, heart rate 118, respiratory rate 28, blood pressure 123/77, pulse ox 100% on room air. WBC 9.5, hemoglobin 9.5, platelet count 83. Sodium 143, potassium 4.2, chloride 110, CO2 24, BUN 51 and creatinine 1.61. Blood sugar 169. INR 1.0. Lactic acid 1.7. Troponin 0.014. ProBNP 1670. Venous blood gas pH 7.3, pCO2 49, bicarb 23. Coronal virus PCR not detected. Influenza a not detected. Influenza B not detected. Chest x-ray reveals bibasilar suspected atelectasis given low lung lines. Superimposed infection not entirely excluded. Patient subsequently developed fever of 102. Nursing observed possible aspiration and patient was seen by speech therapy with recommendations for modified barium swallow which will be postponed until tomorrow. Patient admitted to the cardiac stepdown unit and cardiology consult requested. Regarding anticoagulation, patient was previously on Xarelto which was discontinued in April 2021 due to retroperitoneal hematoma. VQ scan low probability for pulmonary embolism. Echocardiogram 04/2021 revealed EF of 55-60%, moderate mitral regurgitation, mild to moderate tricuspid regurgitation, mild pulmonary hypertension. REVIEW OF SYSTEMS Constitutional: + fever, no chills, no night sweats. No weight change. Noted weakness, noted fatigue no lethargy. Noted daytime sleepiness. EENT: No headache. No blurred vision or double vision, no loss of vision. No loss of Hearing, no ringingin the ears, no dizziness. No nasal drainage or congestion. No epistaxis. No sore throat. Lungs: + complaints of shortness of breath, + cough, no sputum production. No wheezing. Cardiovascular: No chest pain, no lower extremity edema. No palpitations. No paroxysmal nocturnal dyspnea. No orthopnea. No lightheadedness or dizziness. No syncopal episodes. Abdominal: No abdominal pain. No nausea, vomiting. No diarrhea. No constipation. No bloody or tarry stools. No loss of appetite. Genitourinary: No dysuria, increased frequency, urgency. No urinary retention. Musculoskeletal: No myalgias. No muscle weakness, reported gait dysfunction, no frequent falls. No back pain. No neck pain. Integumentary: No wounds, no lesions. No rash or pruritus. No unusual bruising. No change in hair or nails. Neurologic: No aphasia. No facial droop. Noted change in mentation. No head injury. No headache. No paralysis. No paresthesia. Psychiatric: No depression. No anxiety. No mood swings. Endocrine: No abnormal blood sugars. No weight change. No excessive sweating or thirst. No cold intolerance. MEDICAL HISTORY Chronic atrial fibrillation not on anticoagulation due to retroperitoneal hematoma COPD Parkinsons disease Alzheimersdementia Diabetes mellitus type 2 Deafness Recurrent pneumonia Benign prostatic hypertrophy Chronic kidney disease stage III Chronic gout Recurrent depression Retroperitoneal hematoma 04/2021 Brain cancer with surgery and radiation in 2009 SURGICAL HISTORY Left nephrectomy Brain tumor removal Bilateral cataract removalColonoscopy SOCIAL HISTORY Patient smoked for long time he quit in 1977, no alcohol abuse, he was still living with his until his hospitalization a week ago when patient was transferred to the shelter at the time. FAMILY HISTORY His father from motor vehicle accident is a 62, other from heart disease at 86, patient had 3 brother one of them of old age for sister with no major medical problem. Patient had 2 children one had muscular dystrophy other one is living and well. PHYSICAL EXAMINATION Gen: This is an 86-year-old male. He is resting in bed and appears to be comfortable. No respiratory distress is noted, frequent coughing noted. HEENT: Head is atraumatic, normocephalic. Pupils equal, round. Sclerae is anicteric. NECK: Supple. No JVD. No lymphadenopathy. No thyromegaly. LUNGS: Decreased breath sounds bilaterally with a few scattered rhonchi. No intercostal retractions. HEART: Irregular rate and rhythm. No murmur. ABDOMEN: Soft. Bowel sounds are present. No masses. No tenderness. EXTREMITIES: No pedal edema. No calf tenderness. NEUROLOGICAL: Patient is awake, alert and oriented to person. Cranial nerves 2 through 12 are grossly intact. ASSESSMENT AND PLAN 1. A. fib with RVR. Patient has been started on Cardizem drip after Cardizem bolus, consult with cardiology appreciated. Patient started on Toprol-XL 25 mg daily. No plan to start on anticoagulation due to previous bleeding. 2. Chronic atrial fibrillation not on anticoagulation due to retroperitoneal hematoma. 3. Aspiration pneumonia. Patient started on Zosyn and Levaquin, DuoNeb treatments 4 times daily and as needed, Solu-Medrol 40 mg IV every 8 hours, Pulmicort 1 mg per nebulizer twice daily, obtain repeat blood culture 2, sputum culture. Speech therapy consult appreciated with plan for modified barium swallow tomorrow. 4. Metabolic encephalopathy secondary to pneumonia and sepsis. Continue treatment as above. Discontinue Risperdal. CAT scan of the brain ordered. Patient may benefit from Consult with neurology. 5. COPD without exacerbation. 6. Chronic hypoxic respiratory failure recently weaned off oxygen. 7. Diabetes mellitus type 2. Continue Actos 15 mg daily and start patient on Levemir 18 units at bedtime and NovoLog scale before meals and at bedtime. 8. Benign prostatic hypertrophy with urinary retention and chronic Ramirez catheter. 9. Chronic kidney disease stage III with history of left-sided nephrectomy. Avoid nephrotoxic agents. 10. History of large retroperitoneal hematoma with acute blood loss, stable, 04/2021. 11. Chronic gout. Continue allopurinol 100 mg daily. 12. Chronic anemia. Continue ferrous sulfate 325 mg twice daily. 13. Recurrent depression. Continue Zoloft 50 mg at bedtime. 14. Generalized anxiety disorder. Discontinue Risperdal. 15. GI prophylaxis. Protonix. 16. DVT prophylaxis. SCDs and JARRET hose. CODE STATUS: Full code. Patient admitted to the hospital for a minimum of one night stay. DISCHARGE PLAN Likely return to [facility] for subacute rehab. Impression and plan of care have been directed as dictated by the signing physician. Cindy Tobias nurse practitioner acting as scribe for signing physician. Past Medical History Past Medical History: Atrial Fibrillation, Cancer, COPD, Diabetes Mellitus, Eye Disorder, Hearing Disorder / Deafness, Hypertension, Pneumonia, Prostate Disorder, Renal Disease Additional Past Medical History / Comment(s): Pt recently admitted to [facility] on 01/25/20 with a mechanical fall/hematoma R buttock and acute blood loss anemia. Other hx: 2010 Brain cancer with surgery and radiation, L nephrectomy d/t deteriorating kidney, CKD stage III, BPH, chronic thrombocytopenia, chronic anemia, diet controlled diabetes, generalized arthritis, L2 compression fracture, blind R eye, [place] blaterally, seasonal allergies. 05/14/21 admitted with abdominal hematoma History of Any Multi-Drug Resistant Organisms: None Reported Additional Past Surgical History / Comment(s): L nephrectomy, brain tumor removal, bilateral cataract removals, colonoscopy. Past Anesthesia/Blood Transfusion Reactions: No Reported Reaction Additional Past Anesthesia/Blood Transfusion Reaction / Comment(s): Pt has received blood in past without reaction. Past Psychological History: Depression Additional Psychological History / Comment(s): resides at [facility] He used to use a walker to ambulate. per er report patient has been weak and non ambulatory recently Smoking Status: Former smoker Past Alcohol Use History: None Reported Additional Past Alcohol Use History / Comment(s): Unknown when pt started smoking pipe but quit in 1977. Past Drug Use History: None Reported - Past Family History Father Family Medical History: No Reported History Additional Family Medical History / Comment(s): Father was healthy. He at the age of 62yrs in a MVA. Mother Additional Family Medical History / Comment(s): Mother at the age of 86yrs of "heart problems." Brother(s) Additional Family Medical History / Comment(s): Patient has 3 brothers and one is passed from old age. Patient has 4 sisters with no major medical problems. Patient had 2 children one from muscular dystrophy and one is alive with no major medical problems. Medications and Allergies Home Medications Medication Instructions Recorded Confirmed Type Ferrous Sulfate [Feosol] 325 mg PO BID@0900,2100 03/25/14 12/11/21 History Multivitamins, Thera [Multivitamin 1 tab PO DAILY@0900 03/25/14/19/22 History (formulary)] Ascorbic Acid [Vitamin C] 500 mg PO DAILY@89911/21/16 12/11/21 History Sertraline [Zoloft] 50 mg PO HS@209901/25/20 12/11/21 History allopurinoL [Zyloprim] 100 mg PO DAILY@89901/25/20 12/11/21 History Oxybutynin Chloride [Oxybutynin 10 mg PO DAILY@89905/13/21 12/11/21 History Chloride ER] Pioglitazone [Actos] 15 mg PO DAILY@89905/13/21 12/11/21 History Tolterodine Tartrate [Detrol LA] 4 mg PO HS@209911/12/21 12/11/21 History Acetaminophen [Tylenol] 650 mg PO Q4H PRN 12/11/21 12/11/21 History Lactose-Reduced Food [Ensure Plus] 240 ml PO DAILY@89912/11/21 12/11/21 History risperiDONE [RisperDAL] 0.25 mg PO DAILY@89912/11/21 12/11/21 History risperiDONE [RisperDAL] 0.5 mg PO DAILY@1400 12/11/21 12/11/21 History Allergies Allergy/AdvReac Type Severity Reaction Status Date / Time No Known Allergies Allergy Verified 12/11/21 22:11 Physical Exam Vitals: Vital Signs Temp Pulse Pulse Resp BP BP Pulse Ox 12/12/21 04:13 97 16 110/57 97 12/12/21 02:06 98.0 F 97 18 121/68 98 12/12/21 00:54 90 18 106/65 96 12/12/21 00:00 98 20 121/71 98 12/11/21 22:16 26 H 12/11/21 22:00 112 H 24 119/72 95 12/11/21 21:06 98.8 F 118 H 28 H 123/77 100 Intake and Output 12/11/21 12/12/21 12/12/21 22:59 06:59 14:59 Other: Voiding Method Indwelling Catheter # Voids 1 Weight 92.986 kg 89 kg Results CBC & Chem 7: 12/11/21 21:40 12/11/21 21:40 Labs: Abnormal Lab Results - Last 24 Hours (Table) 12/11/21 12/11/21 12/11/21 Range/Units 21:40 21:40 21:40 RBC 2.96 L (4.30-5.90) m/uL Hgb 9.5 L (13.0-17.5) gm/dL Hct 30.1 L (39.0-53.0) % MCV 101.8 H (80.0-100.0) fL Plt Count 83 L (150-450) k/uL D-Dimer 1.13 H (<0.60) mg/L FEU VBG pH (7.31-7.41) VBG HCO3 (24-28) mmol/L Chloride 110 H (98-107) mmol/L BUN 51 H (9-20) mg/dL Creatinine 1.61 H (0.66-1.25) mg/dL Glucose 169 H (74-99) mg/dL POC Glucose (mg/dL) (75-99) mg/dL Total Protein 5.8 L (6.3-8.2) g/dL Albumin 3.3 L (3.5-5.0) g/dL 12/11/21 12/12/21 Range/Units 21:40 06:10 RBC (4.30-5.90) m/uL Hgb (13.0-17.5) gm/dL Hct (39.0-53.0) % MCV (80.0-100.0) fL Plt Count (150-450) k/uL D-Dimer (<0.60) mg/L FEU VBG pH 7.30 L (7.31-7.41) VBG HCO3 23 L (24-28) mmol/L Chloride (98-107) mmol/L BUN (9-20) mg/dL Creatinine (0.66-1.25) mg/dL Glucose (74-99) mg/dL POC Glucose (mg/dL) 189 H (75-99) mg/dL Total Protein (6.3-8.2) g/dL Albumin (3.5-5.0) g/dL Thrombosis Risk Factor Assmnt - Choose All That Apply Each Factor Represents 1 point: Abnormal pulmonary function (COPD), Medical pt on bed rest, Obesity (BMI >25), Swollen legs (current) Each Risk Factor Represents 3 Points: Age 75 years or older Other congenital or acquired thrombophilia - If yes, enter type in comment: No Thrombosis Risk Factor Assessment Total Risk Factor Score: 7 Thrombosis Risk Factor Assessment Level: High Risk
--- NOTE | 2021-12-12 08:47 | NM ---
EXAMINATION TYPE: NM pul perfusion DATE OF EXAM: 12/12/2021 COMPARISON: NONE HISTORY: Tenderness of breath Following administration of 4.95 mCi Tc 99m MAA. Images obtained post injection. FINDINGS: Homogeneous distribution radiotracer on this perfusion only study. IMPRESSION: Low probability for pulmonary embolism.
[2021-12-12] MEDS ORDERED: OXYBUTYNIN 10 MG TAB.ER.24 PO SCH (09:00)
[2021-12-12] MEDS ORDERED: NON FORMULARY DRUG (Lactose-Reduced Food [Ensure Plus] 237 ML Ml) PO SCH (09:00)
[2021-12-12] MEDS ORDERED: risperiDONE 0.25 MG TAB PO SCH (09:00)
[2021-12-12] MEDS: allopurinoL 100 MG TAB PO SCH (09:43)
[2021-12-12] MEDS: PIOGLITAZONE 15 MG TAB PO SCH (09:43)
[2021-12-12] MEDS: MULTIVITAMINS, THERA 1 EACH TAB PO SCH (09:43)
[2021-12-12] MEDS: FERROUS SULFATE 325 MG TAB PO SCH ×2 (09:43→21:07)
[2021-12-12] MEDS: METOPROLOL SUCCINATE (ER) 25 MG TAB.ER.24H PO SCH (09:45)
--- NOTE | 2021-12-12 11:38 | P.CRDCN ---
History of Present Illness Consult date: 12/12/21 History of present illness: HISTORY OF PRESENT ILLNESS: This is a 86-year-old male with a past medical history significant for permanent atrial fibrillation not on anticoagulation secondary to history of retroperitoneal hematoma and epistaxis, chronic kidney disease with left-sided nephrectomy, diabetes, and COPD. Patient follows in the office with Dr. Mendez. We have been asked to see the patient in consultation for afib with rvr. Patient examined at the bedside. Patient was brought to the hospital from [facility] secondary to shortness of breath. Patient was found to be in afib with a heart rate around 110. He was started on IV Cardizem. The patient has no complaints at the time of examination. * EKG reveals atrial flutter ablation with mild RVR * Chest xray bibasilar suspected atelectasis given low lung lines. Superimposed infection not entirely excluded. * Laboratory data: WBC 9.5. Hemoglobin 9.5. Platelet count 83. Sodium 143. Potassium 4.2. BUN 51. Creatinine 1.61. Troponin negative 3. ProBNP 1670. TSH 3.330. * Current home cardiac medications include none * Most recent echocardiogram obtained in October 2021 revealed ejection fraction 55-60%, mild to moderate TR, moderate MR, [id number] pulmonary hypertension REVIEW OF SYSTEMS: At the time of my exam: CONSTITUTIONAL: Denies fever or chills. HEENT: Denies blurred vision, vision changes, or eye pain. Denies hemoptysis CARDIOVASCULAR: Denies chest pain. Denies orthopnea. Denies PND. Denies palpitations RESPIRATORY: Denies shortness of breath. GASTROINTESTINAL: Denies abdominal pain. Denies nausea or vomiting. HEMATOLOGIC: Denies bleeding disorders. GENITOURINARY: Denies any blood in urine. SKIN: Denies pruitis. Denies rash. PHYSICAL EXAM: VITAL SIGNS: Reviewed. GENERAL: Well-developed in no acute distress. HEENT: Head is normocephalic. Pupils are equal, round. Sclerae anicteric. Mucous membranes of the mouth are moist. Neck supple. No JVD or thyromegaly LUNGS: Respirations even and unlabored. Lungs diminished to auscultation bilaterally. HEART: Irregular rate and rhythm. S1 and S2 heard. ABDOMEN: Soft. Nondistended. Nontender. EXTREMITIES: Normal range of motion. No clubbing or cyanosis. Peripheral pulses intact. No lower extremity edema NEUROLOGIC: Awake and alert. ASSESSMENT: Apparent shortness of breath, resolved Permanent atrial fibrillation, not on anticoagulation secondary to history of retroperitoneal hematoma and epistaxis Chronic kidney disease with left-sided nephrectomy COPD Diabetes PLAN: No need to repeat echocardiogram Continue telemetry monitoring Continue IV Cardizem Begin metoprolol succinate 25 mg daily Patient has history of retroperitoneal hematoma. However he also has a history of recurrent epistaxis. Dr. Mendez has recommended the patient remain off Xarelto dating back to his last office note in November 2020. We would continue to agree with Dr. Tran recommendation and not resume Xarelto. Further recommendations pending patient course Nurse practitioner note has been reviewed by physician. Signing provider agrees with the documented findings, assessment, and plan of care. Past Medical History Past Medical History: Atrial Fibrillation, Cancer, COPD, Diabetes Mellitus, Eye Disorder, Hearing Disorder / Deafness, Hypertension, Pneumonia, Prostate Disorder, Renal Disease Additional Past Medical History / Comment(s): Pt recently admitted to [facility] on 01/25/20 with a mechanical fall/hematoma R buttock and acute blood loss anemia. Other hx: 2010 Brain cancer with surgery and radiation, L nephrectomy d/t d eteriorating kidney, CKD stage III, BPH, chronic thrombocytopenia, chronic anemia, diet controlled diabetes, generalized arthritis, L2 compression fracture, blind R eye, [place] blaterally, seasonal allergies. 05/14/21 admitted with abdominal hematoma History of Any Multi-Drug Resistant Organisms: None Reported Additional Past Surgical History / Comment(s): L nephrectomy, brain tumor removal, bilateral cataract removals, colonoscopy. Past Anesthesia/Blood Transfusion Reactions: No Reported Reaction Additional Past Anesthesia/Blood Transfusion Reaction / Comment(s): Pt has received blood in past without reaction. Past Psychological History: Depression Additional Psychological History / Comment(s): resides at [facility] He used to use a walker to ambulate. per er report patient has been weak and non ambulatory recently Smoking Status: Former smoker Past Alcohol Use History: None Reported Additional Past Alcohol Use History / Comment(s): Unknown when pt started smokin g pipe but quit in 1977. Past Drug Use History: None Reported - Past Family History Father Family Medical History: No Reported History Additional Family Medical History / Comment(s): Father was healthy. He at the age of 62yrs in a MVA. Mother Additional Family Medical History / Comment(s): Mother at the age of 86yrs of "heart problems." Brother(s) Additional Family Medical History / Comment(s): Patient has 3 brothers and one is passed from old age. Patient has 4 sisters with no major medical problems. Patient had 2 children one from muscular dystrophy and one is alive with no major medical problems. Medications and Allergies Home Medications Medication Instructions Recorded Confirmed Type Ferrous Sulfate [Feosol] 325 mg PO BID@0900,209903/25/14 12/11/21 History Multivitamins, Thera [Multivitamin 1 tab PO DAILY@00 03/25/14 12/11/21 History (formulary)] Ascorbic Acid [Vitamin C] 500 mg PO DAILY@89911/21/16 12/11/21 History Sertraline [Zoloft] 50 mg PO HS@209901/25/20 12/11/21 History allopurinoL [Zyloprim] 100 mg PO DAILY@89901/25/20 12/11/21 History Oxybutynin Chloride [Oxybutynin 10 mg PO DAILY@89905/13/21 12/11/21 History Chloride ER] Pioglitazone [Actos] 15 mg PO DAILY@89905/13/21 12/11/21 History Tolterodine Tartrate [Detrol LA] 4 mg PO HS@209911/12/21 12/11/21 History Acetaminophen [Tylenol] 650 mg PO Q4H PRN 12/11/21 12/11/21 History Lactose-Reduced Food [Ensure Plus] 240 ml PO DAILY@89912/11/21 12/11/21 History risperiDONE [RisperDAL] 0.25 mg PO DAILY@0900 12/11/21 12/11/21 History risperiDONE [RisperDAL] 0.5 mg PO DAILY@1400 12/11/21 12/11/21 History Allergies Allergy/AdvReac Type Severity Reaction Status Date / Time No Known Allergies Allergy Verified 12/11/21 22:11 Physical Exam Vitals: Vital Signs Temp Pulse Pulse Resp BP BP Pulse Ox 12/12/21 08:00 98.5 F 123 H 24 128/62 94 L 12/12/21 04:13 97 16 110/57 97 12/12/21 02:06 98.0 F 97 18 121/68 98 12/12/21 00:54 90 18 106/65 96 12/12/21 00:00 98 20 121/71 98 12/11/21 22:16 26 H 12/11/21 22:00 112 H 24 119/72 95 12/11/21 21:06 98.8 F 118 H 28 H 123/77 100 Intake and Output 12/11/21 12/12/21 12/12/21 22:59 06:59 14:59 Intake Total 360 Output Total 400 Balance -40 Intake: Oral 360 Output: Urine 400 Other: Voiding Method Indwelling Catheter Indwelling Catheter # Voids 1 Weight 92.986 kg 89 kg Results 12/11/21 21:40 12/11/21 21:40 Cardiac Enzymes 12/11/21 12/11/21 12/12/21 Range/Units 21:40 21:40 00:50 AST 23 (17-59) U/L Troponin I 0.014 0.015 (0.000-0.034) ng/mL 12/12/21 Range/Units 03:41 AST (17-59) U/L Troponin I 0.021 (0.000-0.034) ng/mL Coagulation 12/11/21 Range/Units 21:40 PT 11.0 (9.0-12.0) sec APTT 26.9 (22.0-30.0) sec CBC 12/11/21 Range/Units 21:40 WBC 9.5 (3.8-10.6) k/uL RBC 2.96 L (4.30-5.90) m/uL Hgb 9.5 L (13.0-17.5) gm/dL Hct 30.1 L (39.0-53.0) % Plt Count 83 L (150-450) k/uL Comprehensive Metabolic Panel 12/11/21 Range/Units 21:40 Sodium 143 (137-145) mmol/L Potassium 4.2 (3.5-5.1) mmol/L Chloride 110 H (98-107) mmol/L Carbon Dioxide 24 (22-30) mmol/L BUN 51 H (9-20) mg/dL Creatinine 1.61 H (0.66-1.25) mg/dL Glucose 169 H (74-99) mg/dL Calcium 8.7 (8.4-10.2) mg/dL AST 23 (17-59) U/L ALT 23 (4-49) U/L Alkaline Phosphatase 73 (38-126) U/L Total Protein 5.8 L (6.3-8.2) g/dL Albumin 3.3 L (3.5-5.0) g/dL Current Medications Generic Name Dose Route Start Last Admin Trade Name Freq PRN Reason Stop Dose Admin Acetaminophen 650 mg 12/12/21 07:29 Acetaminophen Tab 325 Mg Tab PO Q4H PRN GENERAL DISCOMFORT Allopurinol 100 mg 12/12/21 09:00 12/12/21 09:43 Allopurinol 100 Mg Tab PO 100 mg DAILY@0900 [facility] Administration Ferrous Sulfate 325 mg 12/12/21 09:00 12/12/21 09:43 Ferrous Sulfate 325 Mg Tab PO 325 mg BID@0900,2099 [facility] Administration Insulin Aspart 0 unit 12/12/21 12:30 Insulin Aspart (Novolog) 100 Unit/Ml Vial SQ ACHS [facility] Protocol Metoprolol Succinate 25 mg 12/12/21 09:15 12/12/21 09:45 Metoprolol Succinate (Er) 25 Mg Tab.Er.24h PO 25 mg DAILY [facility] Administration Multivitamins 1 each 12/12/21 09:00 12/12/21 09:43 Multivitamins, Thera 1 Each Tab PO 1 each DAILY@09 [facility] Administration Nitroglycerin 0.4 mg 12/12/21 00:42 Nitroglycerin Sl Tabs 0.4 Mg Tab SUBLINGUAL Q5M PRN Chest Pain Pioglitazone HCl 15 mg 12/12/21 09:00 12/12/21 09:43 Pioglitazone 15 Mg Tab PO 15 mg DAILY@0900 [facility] Administration Risperidone 0.25 mg 12/12/21 09:00 12/12/21 09:42 Risperidone 0.25 Mg Tab PO 0.25 mg DAILY@0900 [facility] Administration Risperidone 0.5 mg 12/12/21 14:00 Risperidone 0.5 Mg Tab PO DAILY@1400 [facility] Sertraline HCl 50 mg 12/12/21 21:00 Sertraline 50 Mg Tab PO HS@2100 [facility] Intake and Output 12/11/21 12/12/21 12/12/21 22:59 06:59 14:59 Intake Total 360 Output Total 400 Balance -40 Intake: Oral 360 Output: Urine 400 Other: Voiding Method Indwelling Catheter Indwelling Catheter # Voids 1 Weight 92.986 kg 89 kg 12/11/21 21:40 12/11/21 21:40
[2021-12-12 12:13] LABS: Glucose,Whole Blood 238 mg/dL (75-99)
[2021-12-12] MEDS: ACETAMINOPHEN TAB 325 MG TAB PO PRN ×2 (12:25→18:27)
[2021-12-12] MEDS: INSULIN ASPART (NovoLOG) 100 UNIT/ML VIAL SQ SCH ×3 (12:28→21:07)
[2021-12-12] MEDS ORDERED: IPRATROPIUM-ALBUTEROL 3 ML NEB INHALATION PRN (13:27)
[2021-12-12] MEDS ORDERED: LEVOFLOXACIN 500MG-D5W PMX 500 MG in DEXTROSE/WATER 1 100ML.BAG IVPB SCH (14:00)
[2021-12-12] MEDS ORDERED: risperiDONE 0.5 MG TAB PO SCH ×2 (14:00→21:00)
--- NOTE | 2021-12-12 14:34 | CT ---
EXAMINATION TYPE: CT brain wo con DATE OF EXAM: 12/12/2021 COMPARISON: CT dated 09/11/2021 HISTORY: CVA. CT DLP: 1102.4 mGycm Automated exposure control for dose reduction was used. TECHNIQUE: CT scan of the brain is performed without IV contrast administration. FINDINGS: Interval enlargement of the previously seen right frontoparietotemporal subdural hematoma measuring u p to 19 mm compared to 13 mm previously demonstrating heterogeneous density within suggestive of acut e on chronic subdural hematoma. Associated marked effacement of the adjacent cortical sulci with comp ression of the right lateral ventricle yet without significant midline shift or herniation. Areas of encephalomalacia are seen in the frontal lobes more on the right side, likely representing s equela of previous infarct/hemorrhage or intervention. Brain volume loss changes, appreciated previou sly. Arterial atherosclerotic calcifications. Prominent retrocerebellar CSF which could be related to a magna cisterna magna versus arachnoid cyst, stable. No acute intracranial parenchymal bleeding. No gross acute cortical infarct. Unremarkable basal ciste rns, sella and CP angles. No gross orbital abnormality. Mucosal thickening of the ethmoid air cells. Minimal opacification of the left posterior mastoid air cells. Previous right frontal craniotomy. IMPRESSION: Signs suggestive of progressive acute on top of chronic right subdural hematoma with progressive mass effect as detailed above. Recommend urgent neurosurgical consultation. Other findings as described jocelyne hansen.
[2021-12-12] MEDS: IPRATROPIUM-ALBUTEROL 3 ML NEB INHALATION SCH ×2 (15:20→19:05)
[2021-12-12 16:19] LABS: Appearance,Urine Turbid (Clear); Bacteria,Urine Moderate /hpf; Bilirubin,Urine Negative (Negative); Blood,Urine Large (Negative); Color,Urine Yellow; Glucose,Urine (UA) Negative (Negative); Ketones,Urine Negative (Negative); Leukocyte Esterase,Urine Large (Negative); Mucus,Urine Few /hpf; Nitrite,Urine Positive (Negative); PH, Urine 5.5 (5.0-8.0); Protein,Urine 2+ (Negative); RBC,Urine >182 /hpf (0-5); Specific Gravity,Urine 1.018 (1.001-1.035); Squamous Epithelial Cell,Urine 2 /hpf (0-4); Urobilinogen,Urine <2.0 mg/dL (<2.0); WBC,Urine >182 /hpf (0-5)
[2021-12-12 16:33] LABS: Glucose,Whole Blood 108 mg/dL (75-99)
[2021-12-12] MEDS: methylPREDNISolone SOD SUCCI 40 MG/ML 1 ML VIAL IV SCH ×2 (16:54→23:40)
[2021-12-12] MEDS: PIPERACILLIN-TAZOBACTAM 3.375 GM in SODIUM CHLORIDE 0.9% 100 ML IVPB SCH ×2 (16:54→23:40)
[2021-12-12] MEDS ORDERED: IBUPROFEN 600 MG TAB PO PRN (18:22)
[2021-12-12] MEDS: BUDESONIDE 1 MG/2 ML NEBU INHALATION SCH (19:05)
[2021-12-12 20:34] LABS: Glucose,Whole Blood 235 mg/dL (75-99)
[2021-12-12] MEDS ORDERED: TOLTERODINE TARTRATE 4 MG PO SCH (21:00)
[2021-12-12] MEDS ORDERED: INSULIN DETEMIR (LEVEMIR) 100 UNIT/ML SYR SQ SCH (21:00)
[2021-12-12] MEDS ORDERED: SERTRALINE 50 MG TAB PO SCH (21:00)
[2021-12-13 05:06] LABS: Glucose,Whole Blood 221 mg/dL (75-99)
[2021-12-13] MEDS: INSULIN ASPART (NovoLOG) 100 UNIT/ML VIAL SQ SCH ×3 (06:45→16:52)
[2021-12-13] MEDS: IPRATROPIUM-ALBUTEROL 3 ML NEB INHALATION SCH ×3 (07:33→15:23)
[2021-12-13] MEDS: BUDESONIDE 1 MG/2 ML NEBU INHALATION SCH (07:33)
[2021-12-13 08:25] VITALS: BP 105/61; RESP 17
[2021-12-13] MEDS ORDERED: ASPIRIN 325 MG TAB PO SCH (09:00)
[2021-12-13] MEDS ORDERED: PANTOPRAZOLE 40 MG/10 ML VIAL IVP SCH (09:00)
[2021-12-13] MEDS: METOPROLOL SUCCINATE (ER) 25 MG TAB.ER.24H PO SCH (09:32)
[2021-12-13] MEDS: methylPREDNISolone SOD SUCCI 40 MG/ML 1 ML VIAL IV SCH ×2 (09:32→16:46)
[2021-12-13] MEDS: PIPERACILLIN-TAZOBACTAM 3.375 GM in SODIUM CHLORIDE 0.9% 100 ML IVPB SCH ×2 (09:41→16:20)
[2021-12-13 10:36] LABS: Chol/HDL Ratio 2.52 Ratio; LDL Cholesterol,Calculated 47.1 mg/dL (0.0-131.0); VLDL Calculation 16.78 mg/dL (5.00-40.00)
[2021-12-13 11:49] LABS: Glucose,Whole Blood 183 mg/dL (75-99)
[2021-12-13] MEDS: MULTIVITAMINS, THERA 1 EACH TAB PO SCH (12:47)
[2021-12-13] MEDS: FERROUS SULFATE 325 MG TAB PO SCH (12:47)
[2021-12-13] MEDS: allopurinoL 100 MG TAB PO SCH (12:47)
[2021-12-13] MEDS: PIOGLITAZONE 15 MG TAB PO SCH (12:47)
--- NOTE | 2021-12-13 13:25 | FL ---
EXAMINATION TYPE: FL barium swallow w video DATE OF EXAM: 12/13/2021 COMPARISON: NONE HISTORY: Parkinson's disease, choking while eating. FINDINGS: Patient was evaluated in real-time fluoroscopy in the lateral projection while ingesting barium mixe d with liquids. No aspiration or laryngeal penetration. Vallecular residuals, posterior pharyngeal residuals are noted. Tongue pumping consistent with patient's history of Parkinson's disease is noted . There is a delayed initiation of swallow. 3 minutes 52 seconds fluoroscopy time. No images obtained. See dictated report from speech pathology.
--- NOTE | 2021-12-13 13:25 | P.PN ---
Subjective Progress Note Date: 12/13/21 HISTORY OF PRESENT ILLNESS: This is a 86-year-old male with a past medical history significant for permanent atrial fibrillation not on anticoagulation secondary to history of retrop eritoneal hematoma and epistaxis, chronic kidney disease with left-sided nephrectomy, diabetes, and COPD. Patient follows in the office with Dr. Mendez. We have been asked to see the patient in consultation for afib with rvr. Patient examined at the bedside. Patient was brought to the hospital from [facility] secondary to shortness of breath. Patient was found to be in afib with a heart rate around 110. He was started on IV Cardizem. The patient has no complaints at the time of examination. * EKG reveals atrial flutter ablation with mild RVR * Chest xray bibasilar suspected atelectasis given low lung lines. Superimposed infection not entirely excluded. * Laboratory data: WBC 9.5. Hemoglobin 9.5. Platelet count 83. Sodium 143. Potassium 4.2. BUN 51. Creatinine 1.61. Troponin negative 3. ProBNP 1670. TSH 3.330. * Current home cardiac medications include none * Most recent echocardiogram obtained in October 2021 revealed ejection fraction 55-60%, mild to moderate TR, moderate MR, [id number] pulmonary hypertension 12/13/2021 Patient examined this morning at the bedside. Patient denies chest pain or pressure. He denies SOB. Telemetry reveals atrial fibrillation with controlled ventricular rate. IV Cardizem has been discontinued. Vital signs are stable. PHYSICAL EXAM: VITAL SIGNS: Reviewed. GENERAL: Well-developed in no acute distress. HEENT: Head is normocephalic. Pupils are equal, round. Sclerae anicteric. Mucous membranes of the mouth are moist. Neck supple. No JVD or thyromegaly LUNGS: Respirations even and unlabored. Lungs diminished to auscultation bilaterally. HEART: Irregular rate and rhythm. S1 and S2 heard. ABDOMEN: Soft. Nondistended. Nontender. EXTREMITIES: Normal range of motion. No clubbing or cyanosis. Peripheral pulses intact. No lower extremity edema NEUROLOGIC: Awake and alert. ASSESSMENT: Apparent shortness of breath, resolved Permanent atrial fibrillation, not on anticoagulation secondary to history of retroperitoneal hematoma and epistaxis Chronic kidney disease with left-sided nephrectomy COPD Diabetes PLAN: Continue current cardiac medications Patient has history of retroperitoneal hematoma. However he also has a history of recurrent epistaxis. Dr. Mendez has recommended the patient remain off Xarelto dating back to his last office note in November 2020. We would continue to agree with Dr. Tran recommendation and not resume Xarelto. We will sign off. Please reconsult if needed. Nurse practitioner note has been reviewed by physician. Signing provider agrees with the documented findings, assessment, and plan of care. Objective - Vital Signs Vital signs: Vital Signs Temp 98.2 F 12/13/21 08:00 Pulse 72 12/13/21 11:34 Resp 17 12/13/21 08:00 BP 105/61 12/13/21 08:00 Pulse Ox 99 12/13/21 08:00 Intake & Output 12/12/21 12/13/21 12/13/21 18:59 06:59 18:59 Intake Total 360 0 660 Output Total 650 400 Balance -290 -400 660 Weight 80 kg Intake: Oral 360 0 660 Output: Urine 650 400 Other: Voiding Method Indwelling Catheter Indwelling Catheter Indwelling Catheter - Labs CBC & Chem 7: 12/11/21 21:40 12/11/21 21:40 Labs: Abnormal Lab Results - Last 24 Hours (Table) 12/12/21 12/12/21 12/12/21 Range/Units 15:50 16:21 20:32 POC Glucose (mg/dL) 108 H 235 H (75-99) mg/dL Urine Protein 2+ H (Negative) Urine Blood Large H (Negative) Ur Leukocyte Esterase Large H (Negative) Urine RBC >182 H (0-5) /hpf Urine WBC >182 H (0-5) /hpf Urine WBC Clumps Many H (None) /hpf Urine Bacteria Moderate H (None) /hpf Urine Mucus Few H (None) /hpf 12/13/21 12/13/21 Range/Units 04:48 11:47 POC Glucose (mg/dL) 221 H 183 H (75-99) mg/dL Urine Protein (Negative) Urine Blood (Negative) Ur Leukocyte Esterase (Negative) Urine RBC (0-5) /hpf Urine WBC (0-5) /hpf Urine WBC Clumps (None) /hpf Urine Bacteria (None) /hpf Urine Mucus (None) /hpf Microbiology - Last 24 Hours (Table) 12/12/21 15:50 Urine Culture - Preliminary Urine,Clean Catch 12/11/21 21:40 Blood Culture - Preliminary Blood No Growth after 24 hours
[2021-12-13 13:51] LABS: Basophils % (A) 0 %; Eosinophils % (A) 0 %; HCT 26.1 % (39.0-53.0); Hypochromasia Moderate; Lymphocytes # (A) 0.5 k/uL (1.0-4.8); Lymphocytes % (A) 10 %; MCHC 30.5 g/dL (31.0-37.0); MCV 101.7 fL (80.0-100.0); Macrocytosis Slight; Monocytes # (A) 0.2 k/uL (0-1.0); Monocytes % (A) 3 %; Neutrophils # (A) 4.5 k/uL (1.3-7.7); Neutrophils % (A) 85 %; RBC 2.57 m/uL (4.30-5.90); RDW 14.5 % (11.5-15.5); WBC 5.3 k/uL (3.8-10.6)
[2021-12-13 13:52] LABS: Platelet Count 80 k/uL (150-450)
--- NOTE | 2021-12-13 13:52 | P.CNNES ---
History of Present Illness Consult date: 12/13/21 Requesting physician: Wilfred Cazares Reason for Consult: subdural hematoma History of Present Illness: This is an 86-year-old gentleman with medical history of left sudural hematoma, Parkinson's disease, Alzheimer's dementia, diabetes mellitus type 2, chronic atrial fibrillation not on anticoagulation due mainly large retroperitoneal hematoma, chronic kidney insufficiency status post left nephrectomy, large retroperitoneal hematoma in April 2021, aspiration pneumonia who presented emergency department on 12/11/2021 from [facility] due to shortness of breath. Neurology is consulted for acute on subacute subdural hematoma. History is predominantly obtained from medical record as well as a the patient's primary attending since patient is unable to provide the with a history. Patient denies of any headache, nausea or vomiting. Patient had a CT of the head yesterday (12/12/2021) which is reported as signs suggestive of progressive acute on top of chronic right subdural hematoma with progressive mass effect. In the body report it is mentioned that his subdural is over the right frontal parietal temporal region. And the subdural hematoma measuring up to 19 mm compared to 13 mm previously There is compression over the right lateral ventricle. Recommend urgent neurosurgical consultation I per sonally reviewed that a CT of the head and I do agree there is acute on chronic right subdural but I don't feel that acute is a drastically significant. Patient has right frontal encephalomalacia was old. Patient has compression over the right lateral ventricle horn. There is hydrocephalus over p redominantly the left lateral ventricle anterior and posterior and third ventricle. As well there is midline shift from right to left. His platelet count currently is 83,000. Hemoglobin is 9.5, hematocrit is 30.1. PT is 11.0, PTT is 26.9, INR is 1.0 His urine analysis seems suggestive of possible ureter tract infection. Carr virus PCR was not detected. Influenza A and B PCR was not detected that. Of note on the 09/11/2021 patient is admitted to our ED and had a CT of the head which revealed acute on chronic subdural hemorrhage in the right temporal and parietal lobe as a result the patient was transferred for neurosurgical care and he was transferred to [facility]. It seems that the patient dad did not have any intervention at that facility. Review of Systems Review of system: The 12 point system was reviewed and apparent positive and negative per HPI. Past Medical History Past Medical History: Atrial Fibrillation, Cancer, COPD, Diabetes Mellitus, Eye Disorder, Hearing Disorder / Deafness, Hypertension, Pneumonia, Prostate Disorder, Renal Disease Additional Past Medical History / Comment(s): Pt recently admitted to [facility] on 01/25/20 with a mechanical fall/hematoma R buttock and acute blood loss anemia. Other hx: 2010 Brain cancer with surgery and radiation, L nephrectomy d/t deteriorating kidney, CKD stage III, BPH, chronic thrombocytopenia, chronic an emia, diet controlled diabetes, generalized arthritis, L2 compression fracture, blind R eye, [place] blaterally, seasonal allergies. 05/14/21 admitted with abdominal hematoma History of Any Multi-Drug Resistant Organisms: None Reported Additional Past Surgical History / Comment(s): L nephrectomy, brain tumor removal, bilateral cataract removals, colonoscopy. Past Anesthesia/Blood Transfusion Reactions: No Reported Reaction Additional Past Anesthesia/Blood Transfusion Reaction / Comment(s): Pt has re ceived blood in past without reaction. Past Psychological History: Depression Additional Psychological History / Comment(s): resides at [facility] He used to use a walker to ambulate. per er report patient has been weak and non ambulatory recently Smoking Status: Former smoker Past Alcohol Use History: None Reported Additional Past Alcohol Use History / Comment(s): Unknown when pt started smoking pipe but quit in 1977. Past Drug Use History: None Reported - Past Family History Father Family Medical History: No Reported History Additional Family Medical History / Comment(s): Father was healthy. He at the age of 62yrs in a MVA. Mother Additional Family Medical History / Comment(s): Mother at the age of 86yrs of "heart problems." Brother(s) Additional Family Medical History / Comment(s): Patient has 3 brothers and one is passed from old age. Patient has 4 sisters with no major medical problems. Patient had 2 children one from muscular dystrophy and one is alive with no major medical problems. Medications and Allergies Home Medications Medication Instructions Recorded Confirmed Type Ferrous Sulfate [Feosol] 325 mg PO BID@0900,2100 03/25/14 12/11/21 History Multivitamins, Thera [Multivitamin 1 tab PO DAILY@0900 03/25/14 12/11/21 History (formulary)] Ascorbic Acid [Vitamin C] 500 mg PO DAILY@0900 11/21/17 04/19/22 History Sertraline [Zoloft] 50 mg PO HS@2100 01/25/20 12/11/21 History allopurinoL [Zyloprim] 100 mg PO DAILY@89901/25/20 12/11/21 History Oxybutynin Chloride [Oxybutynin 10 mg PO DAILY@0905/13/21 12/11/21 History Chloride ER] Pioglitazone [Actos] 15 mg PO DAILY@89905/13/21 12/11/21 History Tolterodine Tartrate [Detrol LA] 4 mg PO HS@209911/12/21 12/11/21 History Acetaminophen [Tylenol] 650 mg PO Q4H PRN 12/11/21 12/11/21 History Lactose-Reduced Food [Ensure Plus] 240 ml PO DAILY@89912/11/21 12/11/21 History risperiDONE [RisperDAL] 0.25 mg PO DAILY@0912/11/21 12/11/21 History risperiDONE [RisperDAL] 0.5 mg PO DAILY@1400 12/11/21 12/11/21 History Allergies Allergy/AdvReac Type Severity Reaction Status Date / Time No Known Allergies Allergy Verified 12/11/21 22:11 Physical Examination - Vital Signs Vital Signs: Vital Signs Temp Pulse Pulse Resp BP Pulse Ox 12/13/21 11:34 72 12/13/21 11:26 70 12/13/21 08:00 98.2 F 78 17 105/61 99 12/13/21 07:45 69 12/13/21 07:34 74 12/13/21 04:00 98.0 F 76 16 104/65 98 12/13/21 02:00 81 20 12/12/21 23:37 99.2 F 81 20 92/50 98 12/12/21 22:40 99.4 F 12/12/21 21:03 100.7 F H 92 19 106/61 97 12/12/21 19:15 102 H 12/12/21 19:05 100 12/12/21 18:25 100.6 F H 12/12/21 16:00 99.0 F 102 H 22 115/68 98 12/12/21 15:31 85 12/12/21 15:29 94 L 12/12/21 15:20 107 H 12/12/21 14:00 22 Intake and Output 12/12/21 12/13/21 12/13/21 22:59 06:59 14:59 Intake Total 0 660 Output Total 250 400 Balance -250 -400 660 Intake: Oral 0 660 Output: Urine 250 400 Other: Voiding Method Indwelling Catheter Indwelling Catheter Indwelling Catheter Weight 80 kg GENERAL: The patient is lying in bed and is not in acute distress. CHEST: The heart rate is regular rate rhythm. No murmurs to auscultation. LUNG: Clear to auscultation bilaterally no wheezing noted throughout. Not labored breathing. ABDOMEN/GI: Bowel sounds present in all 4 quadrants. No tenderness to palpation throughout. NEUROLOGICAL: Higher mental function: The patient is awake, alert, oriented to self, place and time. Patient is following commands. No aphasia and no neglect. Cranial nerves: The pupils are round, equal and reactive to light. Visual wylie are full to confrontation throughout. Extraocular movement is limited but would look mostly center and able to look to left and slight to right but no vertical. Facial sensation is normal to touch throughout. The facial strength is normal throughout. Hearing is severely decreased bilaterally to hand rub. Tongue is midline and moved [id number] without any difficulty. Mild dysarthria is noted. Shoulder shrug is normal bilaterally. Motor: Gait is deferred. The strength is lifting all extremities is lifting all extremities above gravity and no focality noted. Normal bulk. Has resting tremor of the right upper extremity distally and increased tone of the right wrist. Cerebellum: Unable to assess. Sensation: Sensation is normal to touch throughout. Reflexes (right/left):1+throughout. Plantars are mute bilaterally. Results - Laboratory Findings CBC and BMP: 12/13/21 13:10 12/13/21 13:10 Abnormal Lab Findings: Abnormal Labs 12/11/21 12/11/21 12/11/21 21:40 21:40 21:40 RBC 2.96 L Hgb 9.5 L Hct 30.1 L MCV 101.8 H Plt Count 83 L D-Dimer 1.13 H VBG pH VBG HCO3 Chloride 110 H BUN 51 H Creatinine 1.61 H Glucose 169 H POC Glucose (mg/dL) Total Protein 5.8 L Albumin 3.3 L Urine Protein Urine Blood Ur Leukocyte Esterase Urine RBC Urine WBC Urine WBC Clumps Urine Bacteria Urine Mucus 04/19/22 04/20/22 04/20/22 21:40 06:10 11:56 RBC Hgb Hct MCV Plt Count D-Dimer VBG pH 7.30 L VBG HCO3 23 L Chloride BUN Creatinine Glucose POC Glucose (mg/dL) 189 H 238 H Total Protein Albumin Urine Protein Urine Blood Ur Leukocyte Esterase Urine RBC Urine WBC Urine WBC Clumps Urine Bacteria Urine Mucus 12/12/21 12/12/21 12/12/21 15:50 16:21 20:32 RBC Hgb Hct MCV Plt Count D-Dimer VBG pH VBG HCO3 Chloride BUN Creatinine Glucose POC Glucose (mg/dL) 108 H 235 H Total Protein Albumin Urine Protein 2+ H Urine Blood Large H Ur Leukocyte Esterase Large H Urine RBC >182 H Urine WBC >182 H Urine WBC Clumps Many H Urine Bacteria Moderate H Urine Mucus Few H 12/13/21 12/13/21 04:48 11:47 RBC Hgb Hct MCV Plt Count D-Dimer VBG pH VBG HCO3 Chloride BUN Creatinine Glucose POC Glucose (mg/dL) 221 H 183 H Total Protein Albumin Urine Protein Urine Blood Ur Leukocyte Esterase Urine RBC Urine WBC Urine WBC Clumps Urine Bacteria Urine Mucus Assessment and Plan Assessment: Acute on chronic right subdural hematoma. Parkinson's disease alzheimer's dementia Likely underlying acute urinary tract infection Diabetes mellitus type 2 Chronic atrial fibrillation not on anticoagulation due large retroperitoneal hematoma as well history of subdural Chronic kidney insufficiency status post nephrectomy History of large retroperitoneal hematoma in April 2021 History of aspiration pneumonia Plan: Recommend the patient to be transferred to ICU with close monitoring of the patient. We'll get a repeat CT of the head today. The primary attending the spoke with the family and they requested the patient to be transferred for neurosurgical evaluation. PT, OT and [employer] [facility] are consulted. Patient is currently not on anticoagulation or antiplatelets and to continue to avoid them if possible because of his acute on chronic subdural. I started the patient on sentiment 25-100 1 tab tid and will evaluate patient condition. Will Defer the rest of the medical measure the primary team. The plan is discussed with the patient's primary attending and patient's nurse. Thank you for the consultation. Tamir Roth M.D. Neuro-Hospitalist Time with Patient: Greater than 30
[2021-12-13 13:58] LABS: Albumin 2.7 g/dL (3.5-5.0); Calcium 8.1 mg/dL (8.4-10.2); Potassium 4.3 mmol/L (3.5-5.1); Total Bilirubin 0.7 mg/dL (0.2-1.3); Total Protein 5.3 g/dL (6.3-8.2)
--- NOTE | 2021-12-13 14:42 | CT ---
EXAMINATION TYPE: CT brain wo con DATE OF EXAM: 12/13/2021 COMPARISON: 12/13/2019 HISTORY: Subdural, right CT DLP: 1099.4 mGycm Automated exposure control for dose reduction was used. FINDINGS: There remains a subdural hematoma involving the right cerebral hemisphere containing both acute, cannon pinion adjuster darshan, and a subacute components. There is mass effect upon the right lateral ventricle ventricle with mild subfalcine herniation from right to left which is similar to the prior exam. Measures approximat jose manuel 1.8 cm in maximal dimension. The generalized degenerative changes seen. Central ventricular dilation is noted. Intracranial athero sclerotic changes are seen. Areas of low attenuation the white matter most typical remote white matter change. Calcification in t he basal ganglia noted. Small area of remote thalamic infarct suggested. Previous calvarial surgery n oted. Changes of chronic sinusitis noted. Orbits are symmetric. A prominent cisterna magna again note d. IMPRESSION: 1. Stable appearing right-sided subdural hematoma containing both acute, chronic and subacute compone nts with mass effect and stable subfalcine herniation from right to left measuring approximately 2 mm . 2. Degenerative and remote ischemic change with encephalomalacia similar to the prior exam.
[2021-12-13] MEDS ORDERED: LEVOFLOXACIN 250MG-D5W PMX 250 MG in DEXTROSE/WATER 1 50ML.BAG IVPB SCH (16:00)
[2021-12-13 16:11] LABS: Glucose,Whole Blood 230 mg/dL (75-99)
[2021-12-13 17:15] VITALS: PULSE 74; TEMP 98.7
--- NOTE | 2021-12-13 17:33 | P.PN ---
Subjective Progress Note Date: 12/13/21 HISTORY OF PRESENT ILLNESS This is an 86-year-old male patient of Dr. Hurd with past medical history of Parkinsons disease, Alzheimers dementia, diabetes mellitus type 2, chronic atrial fibrillation not on anticoagulation due to retroperitoneal hematoma, history of pneumonia, benign prostatic hypertrophy, chronic kidney disease with history of left-sided nephrectomy, history of large retroperitoneal hematoma 04/2021, history of aspiration pneumonia. Patient was hospitalized at [facility] due to failure to thrive increasing weakness and difficulty ambulatingfor 2 weeks and progressively worsening. Patient was treated for UTI and streptococcal bacteremia seen by infectious disease thought this was a contamination. Echocardiogram did not show any abnormalities stafford spicious for endocarditis. ID recommended a short course of Ceftin and patient was discharged to [facility] for subacute rehab. The patient has been doing well at the snf until yesterday staph related that patient was having chest pain. Patient was transferred to [facility] emergency center for evaluation. He was found to be afebrile, heart rate 118, respiratory rate 28, blood pressure 123/77, pulse ox 100% on room air. WBC 9.5, hemoglobin 9.5, platelet count 83. Sodium 143, potassium 4.2, chloride 110, CO2 24, BUN 51 and creatinine 1.61. Blood sugar 169. INR 1.0. Lactic acid 1.7. Troponin 0.014. ProBNP 1670. Venous blood gas pH 7.3, pCO2 49, bicarb 23. Coronal virus PCR not detected. Influenza a not detected. Influenza B not detected. Chest x-ray reveals bibasilar suspected atelectasis given low lung lines. Superimposed infection not entirely excluded. Patient subsequently developed fever of 102. Nursing observed possible aspiration and patient was seen by speech therapy with recommendations for modified barium swallow which will be postponed until tomorrow. Patient admitted to the cardiac stepdown unit and cardiology consult requested. Regarding anticoagulation, patient was previously on Xarelto which was discontinued in April 2021 due to retroperitoneal hematoma. VQ scan low probability for pulmonary embolism. Echocardiogram 04/2021 revealed EF of 55-60%, moderate mitral regurgitation, mild to moderate tricuspid regurgitation, mild pulmonary hypertension. 12/13: Patient is laying down in bed in no apparent distress he denies any headache at this time, he denies any chest pain or any shortness breath, he feels better today, is currently on 4 L cannula, his oxygen saturation is 99%, his blood pressure is stable, he has been on Cardizem drip because of his atrial fibrillation, his his had an echo care gram that showed ejection fraction 60% and mitral regurgitation, patient had a computed tomography scan of the brain that showed an evidence of acute on top of her chronic subdural hematoma neurology consultation was obtained, and the patient was sent to [facility] in [place] for evaluation by neurosurgery, Dr. Barrientos accepted the patient over there and the patient will be transferred later on this evening. REVIEW OF SYSTEMS Constitutional: + fever, no chills, no night sweats. No weight change. Noted weakness, noted fatigue no lethargy. Noted daytime sleepiness. HEENT: No headache. No blurred vision or double vision, no loss of vision. No loss of Hearing, no ringingin the ears, no dizziness. No nasal drainage or congestion. No epistaxis. No sore throat. Lungs: + complaints of shortness of breath, + cough, no sputum production. No wheezing. Cardiovascular: No chest pain, no lower extremity edema. No palpitations. No paroxysmal nocturnal dyspnea. No orthopnea. No lightheadedness or dizziness. No syncopal episodes. Abdominal: No abdominal pain. No nausea, vomiting. No diarrhea. No constipation. No bloody or tarry stools. No loss of appetite. Genitourinary: No dysuria, increased frequency, urgency. No urinary retention. Musculoskeletal: No myalgias. No muscle weakness, reported gait dysfunction, no frequent falls. No back pain. No neck pain. Integumentary: No wounds, no lesions. No rash or pruritus. No unusual bruising. No change in hair or nails. Neurologic: No aphasia. No facial droop. Noted change in mentation. No head injury. No headache. No paralysis. No paresthesia. Psychiatric: No depression. No anxiety. No mood swings. Endocrine: No abnormal blood sugars. No weight change. No excessive sweating or thirst. No cold intolerance. PHYSICAL EXAMINATION Gen: This is an 86-year-old male. He is resting in bed and appears to be comfortable. No respiratory distress is noted, frequent coughing noted. HEENT: Head is atraumatic, normocephalic. Pupils equal, round. Sclerae is anicteric, NECK: Supple. No JVD. No lymphadenopathy. No thyromegaly. LUNGS: Decreased breath sounds bilaterally with a few scattered rhonchi. No intercostal retractions. HEART: First heart sound is depressed, second heart sound is normal, irregularly irregular due to atrial fibrillation, there is systolic ejection murmur 3/6 located in the left sternal border. ABDOMEN: Soft, nontender, nondistended, positive bowel sounds. EXTREMITIES: Trace edema no calf tenderness, dorsalis pedis +2 bilaterally. NEUROLOGICAL: Patient is awake, alert and oriented to person. Cranial nerves 2 through 12 are grossly intact, muscle power 3 out of 5 in bilateral upper extre mities and 3 out of 5 in bilateral lower extremity's. ASSESSMENT AND PLAN 1. A. fib with RVR. Patient was taken off Cardizem drip, his currently on metoprolol 25 mg orally once every day, no anticoagulation due to subdural hematoma as well as history of retroperitoneal bleeding, echocardiogram showed ejection fraction of 55-60% with moderate mitral regurgitation, follow-up with the patient very closely. 2. Chronic atrial fibrillation not on anticoagulation due to retroperitoneal hematoma. Continue metoprolol 25 mg orally once every day. 3. Aspiration pneumonia. on Zosyn and Levaquin, DuoNeb treatments 4 times daily and as needed, Solu-Medrol 40 mg IV every 8 hours, Pulmicort 1 mg per nebulizer twice daily, obtain repeat blood culture 2, sputum culture. Speech therapy consult appreciated with plan for modified barium swallow tomorrow. 4. Metabolic encephalopathy secondary to acute on chronic subdural hematoma. Patient will be transferred to [facility] in [place] for evaluation by neurosurgery. 5. COPD without exacerbation. continue Solu-Medrol 40 mg IV push every 8 hours, continue DuoNeb nebulization 4 times every day, continue Pulmicort twice every day. 6. Chronic hypoxic respiratory failure recently weaned off oxygen. continue oxygen 4 L is a cannula continue IV antibiotic, continue IV Solu-Medrol, monitor the patient very closely. 7. Diabetes mellitus type 2. Continue Actos 15 mg daily continue Levemir 22 units at the time along with a sliding scale, 8. Benign prostatic hypertrophy with urinary retention and chronic Ramirez catheter. 9. Chronic kidney disease stage III with history of left-sided nephrectomy. Avoid nephrotoxic agents. 10. History of large retroperitoneal hematoma with acute blood loss, stable, 04/2021. 11. Chronic gout. Continue allopurinol 100 mg daily. 12. Chronic anemia. Continue ferrous sulfate 325 mg twice daily. 13. Recurrent depression. Continue Zoloft 50 mg at bedtime. 14. GI prophylaxis. Protonix 40 mg orally once every day 16. DVT prophylaxis. SCDs and JARRET hose. 17. Patient will be transferred to [facility] for evaluation by neurosurgery Dr. Barrientos Objective - Vital Signs Vital signs: Vital Signs Temp 98.2 F 12/13/21 08:00 Pulse 72 12/13/21 11:34 Resp 17 12/13/21 08:00 BP 105/61 12/13/21 08:00 Pulse Ox 99 12/13/21 08:00 Intake & Output 12/12/21 12/13/21 12/13/21 18:59 06:59 18:59 Intake Total 360 0 660 Output Total 650 400 Balance -290 -400 660 Weight 80 kg Intake: Oral 360 0 660 Output: Urine 650 400 Other: Voiding Method Indwelling Catheter Indwelling Catheter Indwelling Catheter - Labs CBC & Chem 7: 12/13/21 13:10 12/13/21 13:10 Labs: Abnormal Lab Results - Last 24 Hours (Table) 12/12/21 12/12/21 12/12/21 Range/Units 15:50 16:21 20:32 POC Glucose (mg/dL) 108 H 235 H (75-99) mg/dL Urine Protein 2+ H (Negative) Urine Blood Large H (Negative) Ur Leukocyte Esterase Large H (Negative) Urine RBC >182 H (0-5) /hpf Urine WBC >182 H (0-5) /hpf Urine WBC Clumps Many H (None) /hpf Urine Bacteria Moderate H (None) /hpf Urine Mucus Few H (None) /hpf 12/13/21 12/13/21 Range/Units 04:48 11:47 POC Glucose (mg/dL) 221 H 183 H (75-99) mg/dL Urine Protein (Negative) Urine Blood (Negative) Ur Leukocyte Esterase (Negative) Urine RBC (0-5) /hpf Urine WBC (0-5) /hpf Urine WBC Clumps (None) /hpf Urine Bacteria (None) /hpf Urine Mucus (None) /hpf Microbiology - Last 24 Hours (Table) 12/12/21 15:50 Urine Culture - Preliminary Urine,Clean Catch 12/11/21 21:40 Blood Culture - Preliminary Blood No Growth after 24 hours
--- NOTE | 2021-12-13 17:35 | P.DS ---
Providers Date of admission: 12/12/21 10:52 Expected date of discharge: 12/13/21 Attending physician: Wilfred Cazares Consults: 12/12/21 00:42 Consult Physician Routine Consulting Provider: Amauri Yuan Consult Reason/Comments: Atrial fibrillation with rapid ventricular rate Do you want consulting provider notified?: Yes 12/13/21 12:22 Consult Physician Routine Consulting Provider: Jim Roth Consult Reason/Comments: Aspiration Pneumonia Do you want consulting provider notified?: Yes 12/13/21 12:26 Consult Physician Stat Consulting Provider: Tamir Roth Consult Reason/Comments: Subfdural hematoma Do you want consulting provider notified?: Yes Primary care physician: Wilfred Cazares [facility] Course: HISTORY OF PRESENT ILLNESS This is an 86-year-old male patient of Dr. Hurd with past medical history of Parkinsons disease, Alzheimers dementia, diabetes mellitus type 2, chronic atrial fibrillation not on anticoagulation due to retroperitoneal hematoma, history of pneumonia, benign prostatic hypertrophy, chronic kidney disease with history of left-sided nephrectomy, history of large retroperitoneal hematoma 04/2021, history of aspiration pneumonia. Patient was hospitalized at [facility] due to failure to thrive increasing weakness and difficulty ambulatingfor 2 weeks and progressively worsening. Patient was treated for UTI and streptococcal bacteremia seen by infectious disease thought this was a contamination. Echocardiogram did not show any abnormalities suspicious for endocarditis. ID recommended a short course of Ceftin and patient was discharged to [facility] for subacute rehab. The patient has been doing well at the senior care until yesterday staph related that patient was having chest pain. Patient was transferred to [facility] emergency center for evaluation. He was found to be afebrile, heart rate 118, respiratory rate 28, blood pressure 123/77, pulse ox 100% on room air. WBC 9.5, hemoglobin 9.5, platelet count 83. Sodium 143, potassium 4.2, chloride 110, CO2 24, BUN 51 and creatinine 1.61. Blood sugar 169. INR 1.0. Lactic acid 1.7. Troponin 0.014. ProBNP 1670. Venous blood gas pH 7.3, pCO2 49, bicarb 23. Coronal virus PCR not detected. Influenza a not detected. Influenza B not detected. Chest x-ray reveals bibasilar suspected atelectasis given low lung lines. Superimposed infection not entirely excluded. Patient subsequently developed fever of 102. Nursing observed possible aspiration and patient was seen by speech therapy with recommendations for modified barium swallow which will be postponed until tomorrow. Patient admitted to the cardiac stepdown unit and cardiology consult requested. Regarding anticoagulation, patient was previously on Xarelto which was discontinued in April 2021 due to retroperitoneal hematoma. VQ scan low probability for pulmonary embolism. Echocardiogram 04/2021 revealed EF of 55-60%, moderate mitral regurgitation, mild to moderate tricuspid regurgitation, mild pulmonary hypertension. 12/13: Patient is laying down in bed in no apparent distress he denies any headache at this time, he denies any chest pain or any shortness breath, he feels better today, is currently on 4 L cannula, his oxygen saturation is 99%, his blood pressure is stable, he has been on Cardizem drip because of his atrial fibrillation, his his had an echo care gram that showed ejection fraction 60% and mitral regurgitation, patient had a computed tomography scan of the brain that showed an evidence of acute on top of her chronic subdural hematoma neurology consultation was obtained, and the patient was sent to [facility] in [place] for evaluation by neurosurgery, Dr. Barrientos accepted the patient over there and the patient will be transferred later on this evening. Discharge diagnoses: 1. A. fib with RVR. 2. Chronic atrial fibrillation not on anticoagulation due to retroperitoneal hematoma. 3. Aspiration pneumonia. 4. Metabolic encephalopathy secondary to acute on chronic subdural hematoma. 5. COPD without exacerbation. 6. Chronic hypoxic respiratory failure recently weaned off oxygen. continue oxygen 4 L is a cannula 7. Diabetes mellitus type 2. 8. Benign prostatic hypertrophy with urinary retention and chronic Ramirez catheter. 9. Chronic kidney disease stage III with history of left-sided nephrectomy. 10. History of large retroperitoneal hematoma with acute blood loss, stable, 04/2021. 11. Chronic gout. 12. Chronic anemia. 13. Recurrent depression. Patient Condition at Discharge: Serious Plan - Discharge Summary Discharge Rx Participant: No New Discharge Prescriptions: No Action Multivitamins, Thera [Multivitamin (formulary)] 1 tab PO DAILY@0900 Ferrous Sulfate [Feosol] 325 mg PO BID@0900,2100 Ascorbic Acid [Vitamin C] 500 mg PO DAILY@0900 allopurinoL [Zyloprim] 100 mg PO DAILY@0900 Sertraline [Zoloft] 50 mg PO HS@2100 Pioglitazone [Actos] 15 mg PO DAILY@09 Tolterodine Tartrate [Detrol LA] 4 mg PO HS@2100 Oxybutynin Chloride [Oxybutynin Chloride ER] 10 mg PO DAILY@0900 Acetaminophen [Tylenol] 650 mg PO Q4H PRN PRN Reason: GENERAL DISCOMFORT risperiDONE [RisperDAL] 0.5 mg PO DAILY@1400 risperiDONE [RisperDAL] 0.25 mg PO DAILY@0900 Lactose-Reduced Food [Ensure Plus] 240 ml PO DAILY@0900 Discharge Medication List Ferrous Sulfate [Feosol] 325 mg PO BID@0900,209903/25/14 [History] Multivitamins, Thera [Multivitamin (formulary)] 1 tab PO DAILY@89903/25/14 [History] Ascorbic Acid [Vitamin C] 500 mg PO DAILY@89911/21/16 [History] Sertraline [Zoloft] 50 mg PO HS@209901/25/20 [History] allopurinoL [Zyloprim] 100 mg PO DAILY@89901/25/20 [History] Oxybutynin Chloride [Oxybutynin Chloride ER] 10 mg PO DAILY@89905/13/21 [History] Pioglitazone [Actos] 15 mg PO DAILY@89905/13/21 [History] Tolterodine Tartrate [Detrol LA] 4 mg PO HS@209911/12/21 [History] Acetaminophen [Tylenol] 650 mg PO Q4H PRN 12/11/21 [History] Lactose-Reduced Food [Ensure Plus] 240 ml PO DAILY@89912/11/21 [History] risperiDONE [RisperDAL] 0.25 mg PO DAILY@89912/11/21 [History] risperiDONE [RisperDAL] 0.5 mg PO DAILY@1400 12/11/21 [History] Follow up Appointment(s)/Referral(s): Wilfred Cazares MD [Primary Care Provider] - 1-2 days
[2021-12-13] MEDS ORDERED: CARBIDOPA-LEVODOPA 25-100 MG 1 EACH TAB PO SCH (19:00)
[2021-12-13] MEDS ORDERED: INSULIN DETEMIR (LEVEMIR) 100 UNIT/ML SYR SQ SCH (21:00)
--- NOTE | 2021-12-14 12:36 | CDI ---
Documentation Clarification Form Date: 12/14/2021 12:22:00 PM From: Jennifer Beckham Admit Date: 12/12/2021 10:52:00 AM Patient Name: Alen Swanson Visit Number: [id number] Discharge Date: 12/13/2021 07:02:00 PM ATTENTION: The Clinical Documentation Specialists (CDI) and [facility] Coding Staff appreciate your assistance in clarifying documentation. Please respond to the clarification below the line at the bottom and electronically sign. The CDI & [facility] Coding staff will review the response and follow-up if needed. Please note: Queries are made part of the Legal Health Record. If you have any questions, please contact the author of this message via ITS. Dr. Wilfred Cazares Patient with documented aspiration pneumonia. Per H and P Assessment and Plan: "Metabolic encephalopathy secondary to pneumonia and sepsis. Sepsis diagnosis not carried through chart. Additional clarification regarding whether patient had sepsis or was it ruled out is needed. History/Risk Factors: aspiration pneumonia Clinical Indicators: WBC: 9.5 Lactic acid: 1.7 Vitals signs: 98.8 F, 118 bpm, 28, 123/77, 100% NR 6 Treatment: IV antibiotics Antibiotics: Pipercillin and Levofloxin In your professional opinion, please clarify if these findings signify one of the following conditions: [ ] Sepsis POA [ ] Sepsis ruled out [ ] Severe Sepsis [ ] Other, please specify [ ] Unable to determine SIRS Criteria: 2 or more of the following may indicate SIRS -Temperature < 96.8F (36C) or > 101.0F (38.3C) -Heart Rate > 90 bpm -Respiratory Rate > 20 breaths/min or PaCO2 < 32 mmHg -White Blood Cell Count > 12,000 or < 4,000 cells/mm3 or > 10% bands Aspiration Pneumonia with sepsis presents on admission MTDD
== END 2021-12-13 19:02 | disposition short-term general hospital (02) | DRG 871 ==
LOC: EC 21:05 → 3SCARD 12-12 00:42 → OBSVTOIN 12-12 10:52
PROVIDERS: ADMIT Internal Medicine; ATTEND Internal Medicine
DX: A41.9 Sepsis, unspecified organism (principal); J69.0 Pneumonitis due to inhalation of food and vomit; G93.41 Metabolic encephalopathy; I62.01 Nontraumatic acute subdural hemorrhage; I62.03 Nontraumatic chronic subdural hemorrhage; J96.11 Chronic respiratory failure with hypoxia; N39.0 Urinary tract infection, site not specified; J44.0 Chronic obstructive pulmonary disease with (acute) lower respiratory infection; F33.9 Major depressive disorder, recurrent, unspecified; G91.9 Hydrocephalus, unspecified; I48.21 Permanent atrial fibrillation; I48.92 Unspecified atrial flutter; N18.30 Chronic kidney disease, stage 3 unspecified; E11.22 Type 2 diabetes mellitus with diabetic chronic kidney disease; I12.9 Hypertensive chronic kidney disease with stage 1 through stage 4 chronic kidney disease, or unspecified chronic kidney disease; D63.1 Anemia in chronic kidney disease; G20 Parkinson's disease; G30.9 Alzheimer's disease, unspecified; I27.20 Pulmonary hypertension, unspecified; G93.89 Other specified disorders of brain; Z87.891 Personal history of nicotine dependence; Z20.822 Contact with and (suspected) exposure to COVID-19; F02.80 Dementia in other diseases classified elsewhere, unspecified severity, without behavioral disturbance, psychotic disturbance, mood disturbance, and anxiety; F41.1 Generalized anxiety disorder; Z28.311 Partially vaccinated for COVID-19; R33.8 Other retention of urine; M1A.9XX0 Chronic gout, unspecified, without tophus (tophi); N40.1 Benign prostatic hyperplasia with lower urinary tract symptoms; M13.0 Polyarthritis, unspecified; H54.61 Unqualified visual loss, right eye, normal vision left eye; H91.90 Unspecified hearing loss, unspecified ear; I08.1 Rheumatic disorders of both mitral and tricuspid valves; R79.1 Abnormal coagulation profile; Z79.899 Other long term (current) drug therapy; Z79.84 Long term (current) use of oral hypoglycemic drugs; Z85.841 Personal history of malignant neoplasm of brain; Z87.01 Personal history of pneumonia (recurrent); Z90.5 Acquired absence of kidney; Z87.440 Personal history of urinary (tract) infections; Z98.42 Cataract extraction status, left eye; Z98.41 Cataract extraction status, right eye; Z91.81 History of falling; Z92.3 Personal history of irradiation; Z82.69 Family history of other diseases of the musculoskeletal system and connective tissue; Z98.890 Other specified postprocedural states
CPT/HCPCS: 36415; 70450; 71045; 74230; 78580; 80053; 80061; 81001; 82803; 83605; 83880; 84443; 84484; 85025; 85379; 85610; 85730; 87040; 87077; 87086; 87186; 87502; 87635; 93005; 94640; 94760; 96365; 99285

== ENCOUNTER → 2022-02-15 | Outpatient (CLI) | payer MEDICARE ==
--- NOTE | 2022-02-15 08:08 | CT ---
EXAMINATION TYPE: CT brain wo con DATE OF EXAM: 02/15/2022 COMPARISON: 12/13/2021 HISTORY: Subdural Hematoma CT DLP: 1126.[address] of the brain was performed. The ventricles, basal cisterns and sulci overlying the cerebral convexities demonstrate moderate enla rgement. Bifrontal encephalomalacia. Right-sided subdural collection persists although is smaller in size with maximal thickness of 7 mm v ersus 1.3 cm previously. Also the areas of increased attenuation indicating acute hemorrhage have res olved. Craniotomy changes right frontal region. There is decreased attenuation about the periventricular white matter and deep white matter of both c erebral hemispheres, compatible with chronic small vessel ischemia. Differential diagnosis does inclu de demyelination. No mass effects are seen.No midline shift. Osseous calvarium is intact. If symptoms persist consider MRI. IMPRESSION: 1. Age related atrophic and chronic small vessel ischemic change without acute intracranial process s een at this time. 2.Right-sided subdural collection persists although is smaller in size with maximal thickness of 7 mm versus 1.3 cm previously. Also the areas of increased attenuation indicating acute hemorrhage have r esolved.
== END | disposition home or self-care (01) ==
LOC: RADCTMAIN 07:13
PROVIDERS: ATTEND Neurological Surgery
DX: G31.9 Degenerative disease of nervous system, unspecified (principal); I67.82 Cerebral ischemia
CPT/HCPCS: 70450

== ENCOUNTER 2022-02-28 16:10 | Inpatient (IN) | payer MEDICARE ==
[2022-02-28] MEDS ORDERED: SODIUM CHLORIDE 0.9% 1,000 ML IV STA ×3 (16:20→17:48)
[2022-02-28 16:31] LABS: Glucose,Whole Blood 560 mg/dL (70-110)
[2022-02-28] MEDS ORDERED: VANCOMYCIN IV PER PHARMACY 1 EACH MISC MISCELLANE PRN (16:32)
[2022-02-28] MEDS ORDERED: CEFEPIME 2 GM in SODIUM CHLORIDE 0.9% 100 ML IVPB STA (16:32)
--- NOTE | 2022-02-28 16:32 | ED ---
General Adult HPI - General Chief complaint: Weakness Stated complaint: Weakness Time Seen by Provider: 02/28/22 16:16 Source: EMS Mode of arrival: EMS Limitations: language barrier, altered mental status, physical limitation - History of Present Illness Initial comments: Dictation was produced using [employer] dictation software. please excuse any gra mmatical, word or spelling errors. Chief Complaint: 87-year-old male presents emergency department for altered mental status and hypotension History of Present Illness: Is 87-year-old male has multiple comorbidities. Patient unable to find history of present illness at this time. History of present was obtained from nursing received report from EMS. EMS is not available at this time. Patient lethargic. According to EMS patient is a resident [facility] retirement was found to be hypotensive and altered and lethargic at the bedside. According to transfer documentation patient is full code. He has multiple coronary disease including history of intracranial hemorrhage, A. fib, hypertension and diabetes. Allegedly he has been on Levaquin for an unknown amount of these treated urinary tract infection. It is unclear what the patient's baseline mentation is. Chart review was performed. There is a neurology consultation note from November of this year. Continuous documentation patient is a history of left subdural hematoma, Parkinson's disease, Alzheimer's dementia type 2 diabetes. Patient is not on anticoagulation due to retroperitoneal hematoma. In November patient had acute on chronic right subdural hematoma. He was then transferred to outside facility for neurosurgical evaluation. According to documentation from November by neurologists patient was anal 4 and following commands. The ROS documented in this emergency department record has been reviewed and co nfirmed by me. Those systems with pertinent positive or negative responses have been documented in the HPI. All other systems are other negative and/or noncontributory. PHYSICAL EXAM: General Impression: Lethargic HEENT: Normocephalic atraumatic, extra-ocular movements intact, pupils equal and reactive to light bilaterally, dry mucous membranes Cardiovascular: Tachycardic, irregularly irregular Chest: Bilateral breath sounds, no retractions, no tachypnea Abdomen: abdomen soft, non-tender, non-distended, no organomegaly Musculoskeletal: Pulses present and equal in all extremities, no peripheral edema Motor: no focal deficits noted Neurological: Does not respond to voice. He does respond to painful stimuli, pupils 4 mm reactive Skin: Intact with no visualized rashes, no induration or erythema in the perineum : Indwelling Ramirez catheter with purulent urine in the Ramirez catheter tubing. ED course: 87-year-old male with multiple comorbidities presents to the emergency department for altered mental status and hypotension. Patient unable to provide history presents at this time. Signs upon arrival shows blood pressure of 89 of 59, heart rate of 122. Rectal temperature is 98.8. Patient placed in a reverse Trendelenburg position with improvement of blood pressure suggesting that perhaps patient is volume depleted. EKG shows A. fib with RVR. Patient has known history of A. fib. He is not on anticoagulation. Patient's urine is grossly purulent.. EKG interpretation: Ventricular rate 123, A. fib with RVR, QS 1:30, QTC 417. No IA prolongation, no QTC prolongation, no ST or T-wave changes noted. Chest x-ray shows right lower lobe infiltrate. CT of the abdomen pelvis shows bibasilar pneumonia currently for aspiration. There is hemorrhagic return the urinary bladder with all thickening. No evidence of retroperitoneal hematoma. Computed tomography scan of brain is unremarkable. Laboratory evaluation obtained. CBC unremarkable. Cardiac panel is negative. Arterial blood gas shows pH of 7.37, pCO2 of 31, pO2 of 18 on 100% FiO2. Patient has significant metabolic derangement sodium 160, chloride 125, bicarb of 18 with a gap of 17. BUN 176, creatinine of 4.97. Glucose of 5:15. Lactic acid level II.2. Urinalysis shows [id number] white blood cells. Patient had a rate of and started on vancomycin and cefepime. Patient observed in emergency department for approximately 3 hours. Patient's vital signs improved with IV fluids. His blood pressures now 117/74, heart rate 109. Patient is 93% on nasal cannula oxygen. Patient is improved in appearance. Dr. norris requested that I discussed patient case with the workers compensation examiner and case discussed with Dr. Parker who is willing to accept patient's care to the ICU. - Related Data Home Medications Medication Instructions Recorded Confirmed Sertraline [Zoloft] 50 mg PO HS@2100 01/25/20 02/28/22 allopurinoL [Zyloprim] 100 mg PO DAILY@0900 01/25/20 02/28/22 Pioglitazone [Actos] 15 mg PO DAILY@0605/13/21 02/28/22 Tolterodine Tartrate [Detrol LA] 4 mg PO HS@2100 11/12/21 02/28/22 Acetaminophen [Tylenol] 650 mg PO Q4H PRN 12/11/21 02/28/22 Ferrous Sulfate 330 mg PO DAILY@0902/28/22 02/28/22 Levofloxacin [Levaquin] 250 mg PO HS@209902/28/22 02/28/22 Magnesium Hydroxide [Milk of 2,400 mg PO ONCE PRN 02/28/22 02/28/22 Magnesia] Metoprolol Succinate (ER) [Toprol 25 mg PO HS@209902/28/22 02/28/22 Xl] Multivitamins, Thera Liquid 5 ml PO DAILY@89902/28/22 02/28/22 [Theragran Liquid (formulary)] Na Phos,M-B/Na Phos,Di-Ba [Fleet 118 ml RECTAL DAILY PRN 02/28/22 02/28/22 Adult] Nitroglycerin Sl Tabs [Nitrostat] 0.4 mg SUBLINGUAL Q5M PRN 02/28/22 02/28/22 Omeprazole 20 mg PO DAILY@0602/28/22 02/28/22 bisacodyL [Dulcolax] 10 mg RECTAL DAILY PRN 02/28/22 02/28/22 guaiFENesin [guaiFENesin Oral 100 mg PO Q6H PRN 02/28/22 02/28/22 Solution] methylPREDNISolone Dose Pack See Taper PO DAILY 02/28/22 02/28/22 [Medrol Dose Pack] Allergies Allergy/AdvReac Type Severity Reaction Status Date / Time No Known Allergies Allergy Verified 02/28/22 17:46 Review of Systems ROS Statement: Those systems with pertinent positive or pertinent negative responses have been documented in the HPI. ROS Other: All systems not noted in ROS Statement are negative. Past Medical History Past Medical History: Atrial Fibrillation, Cancer, COPD, Diabetes Mellitus, Eye Disorder, Hearing Disorder / Deafness, Hypertension, Pneumonia, Prostate Disorder, Renal Disease Additional Past Medical History / Comment(s): Pt recently admitted to [facility] on 01/25/20 with a mechanical fall/hematoma R buttock and acute blood loss anemia. Other hx: 2010 Brain cancer with surgery and radiation, L nephrectomy d/t deteriorating kidney, CKD stage III, BPH, chronic thrombocytopenia, chronic anemia, diet controlled diabetes, generalized arthritis, L2 compression fracture, blind R eye, KALSKAG blaterally, seasonal allergies. 05/14/21 admitted with abdominal hematoma History of Any Multi-Drug Resistant Organisms: None Reported Additional Past Surgical History / Comment(s): L nephrectomy, brain tumor remov al, bilateral cataract removals, colonoscopy. Past Anesthesia/Blood Transfusion Reactions: No Reported Reaction Additional Past Anesthesia/Blood Transfusion Reaction / Comment(s): Pt has received blood in past without reaction. Past Psychological History: Depression Smoking Status: Former smoker Past Alcohol Use History: None Reported Past Drug Use History: None Reported - Past Family History Father Family Medical History: No Reported History Additional Family Medical History / Comment(s): Father was healthy. He at the age of 62yrs in a MVA. Mother Additional Family Medical History / Comment(s): Mother at the age of 86yrs of "heart problems." Brother(s) Additional Family Medical History / Comment(s): Patient has 3 brothers and one is passed from old age. Patient has 4 sisters with no major medical problems. Patient had 2 children one from muscular dystrophy and one is alive with no major medical problems. General Exam Limitations: language barrier, altered mental status, physical limitation Course Vital Signs 02/28/22 02/28/22 02/28/22 16:15 16:31 17:54 Temperature 98.8 F Pulse Rate 122 H 115 H Respiratory 26 H 20 26 H Rate Blood Pressure 89/59 114/61 O2 Sat by Pulse 91 L Oximetry 02/28/22 18:30 Temperature Pulse Rate 110 H Respiratory 22 Rate Blood Pressure 116/61 O2 Sat by Pulse 93 L Oximetry Procedures - Sepsis Sepsis Focused Exam #1 Time Sepsis Criteria Met: 17:30 Sepsis Focused Exam Date: 02/28/22 Sepsis Focused Exam Time: 18:32 Medical Decision Making - Lab Data Result diagrams: 02/28/22 16:28 02/28/22 16:28 Lab Results 02/28/22 02/28/22 02/28/22 Range/Units 16:28 16:28 16:28 WBC 5.2 (3.8-10.6) k/uL RBC 3.46 L (4.30-5.90) m/uL Hgb 10.5 L (13.0-17.5) gm/dL Hct 36.1 L (39.0-53.0) % MCV 104.2 H (80.0-100.0) fL MCH 30.4 (25.0-35.0) pg MCHC 29.1 L (31.0-37.0) g/dL RDW 15.1 (11.5-15.5) % Plt Count 152 (150-450) k/uL MPV 16.5 Neutrophils % 83 % Lymphocytes % 12 % Monocytes % 3 % Eosinophils % 0 % Basophils % 0 % Neutrophils # 4.3 (1.3-7.7) k/uL Lymphocytes # 0.6 L (1.0-4.8) k/uL Monocytes # 0.2 (0-1.0) k/uL Eosinophils # 0.0 (0-0.7) k/uL Basophils # 0.0 (0-0.2) k/uL Manual Slide Review Performed Large Platelets Present Hypochromasia Marked Poikilocytosis (manual Present Macrocytosis Moderate PT 12.7 H (9.0-12.0) sec INR 1.2 H (<1.2) APTT 24.6 (22.0-30.0) sec Sample Site ABG pH (7.35-7.45) ABG pCO2 (35-45) mmHg ABG pO2 (83-108) mmHg ABG HCO3 (21-25) mmol/L ABG Total CO2 (19-24) mmol/L ABG O2 Saturation (94-97) % ABG Base Excess mmol/L Abdullahi Test FiO2 % Sodium 160 H (137-145) mmol/L Potassium 5.0 (3.5-5.1) mmol/L Chloride 125 H (98-107) mmol/L Carbon Dioxide 18 L (22-30) mmol/L Anion Gap 17 mmol/L BUN 176 H* (9-20) mg/dL Creatinine 4.97 H (0.66-1.25) mg/dL Est GFR (CKD-EPI)AfAm 11 (>60 ml/min/1.73 sqM) Est GFR (CKD-EPI)NonAf 10 (>60 ml/min/1.73 sqM) Glucose 515 H* (74-99) mg/dL POC Glucose (mg/dL) (70-110) mg/dL POC Glu Dynamometer Tuner ID Plasma Lactic Acid Ralph (0.7-2.0) mmol/L Calcium 8.9 (8.4-10.2) mg/dL Magnesium 3.1 H (1.6-2.3) mg/dL Total Bilirubin 0.5 (0.2-1.3) mg/dL AST 13 L (17-59) U/L ALT 15 (4-49) U/L Alkaline Phosphatase 79 (38-126) U/L Troponin I (0.000-0.034) ng/mL Total Protein 6.0 L (6.3-8.2) g/dL Albumin 2.8 L (3.5-5.0) g/dL Urine Color Urine Appearance (Clear) Urine pH (5.0-8.0) Ur Specific Alpine (1.001-1.035) Urine Protein (Negative) Urine Glucose (UA) (Negative) Urine Ketones (Negative) Urine Blood (Negative) Urine Nitrite (Negative) Urine Bilirubin (Negative) Urine Urobilinogen (<2.0) mg/dL Ur Leukocyte Esterase (Negative) Urine RBC (0-5) /hpf Urine WBC (0-5) /hpf Urine Bacteria (None) /hpf Hyaline Casts (0-2) /lpf Urine Mucus (None) /hpf 02/28/22 02/28/22 02/28/22 Range/Units 16:28 16:28 16:30 WBC (3.8-10.6) k/uL RBC (4.30-5.90) m/uL Hgb (13.0-17.5) gm/dL Hct (39.0-53.0) % MCV (80.0-100.0) fL MCH (25.0-35.0) pg MCHC (31.0-37.0) g/dL RDW (11.5-15.5) % Plt Count (150-450) k/uL MPV Neutrophils % % Lymphocytes % % Monocytes % % Eosinophils % % Basophils % % Neutrophils # (1.3-7.7) k/uL Lymphocytes # (1.0-4.8) k/uL Monocytes # (0-1.0) k/uL Eosinophils # (0-0.7) k/uL Basophils # (0-0.2) k/uL Manual Slide Review Large Platelets Hypochromasia Poikilocytosis (manual Macrocytosis PT (9.0-12.0) sec INR (<1.2) APTT (22.0-30.0) sec Sample Site ABG pH (7.35-7.45) ABG pCO2 (35-45) mmHg ABG pO2 (83-108) mmHg ABG HCO3 (21-25) mmol/L ABG Total CO2 (19-24) mmol/L ABG O2 Saturation (94-97) % ABG Base Excess mmol/L Abdullahi Test FiO2 % Sodium (137-145) mmol/L Potassium (3.5-5.1) mmol/L Chloride (98-107) mmol/L Carbon Dioxide (22-30) mmol/L Anion Gap mmol/L BUN (9-20) mg/dL Creatinine (0.66-1.25) mg/dL Est GFR (CKD-EPI)AfAm (>60 ml/min/1.73 sqM) Est GFR (CKD-EPI)NonAf (>60 ml/min/1.73 sqM) Glucose (74-99) mg/dL POC Glucose (mg/dL) 560 H (70-110) mg/dL POC Glu Dynamometer Tuner ID Belval, Gricel Plasma Lactic Acid Ralph 3.2 H* (0.7-2.0) mmol/L Calcium (8.4-10.2) mg/dL Magnesium (1.6-2.3) mg/dL Total Bilirubin (0.2-1.3) mg/dL AST (17-59) U/L ALT (4-49) U/L Alkaline Phosphatase (38-126) U/L Troponin I 0.021 (0.000-0.034) ng/mL Total Protein (6.3-8.2) g/dL Albumin (3.5-5.0) g/dL Urine Color Urine Appearance (Clear) Urine pH (5.0-8.0) Ur Specific Alpine (1.001-1.035) Urine Protein (Negative) Urine Glucose (UA) (Negative) Urine Ketones (Negative) Urine Blood (Negative) Urine Nitrite (Negative) Urine Bilirubin (Negative) Urine Urobilinogen (<2.0) mg/dL Ur Leukocyte Esterase (Negative) Urine RBC (0-5) /hpf Urine WBC (0-5) /hpf Urine Bacteria (None) /hpf Hyaline Casts (0-2) /lpf Urine Mucus (None) /hpf 02/28/22 02/28/22 02/28/22 Range/Units 16:32 16:50 16:58 WBC (3.8-10.6) k/uL RBC (4.30-5.90) m/uL Hgb (13.0-17.5) gm/dL Hct (39.0-53.0) % MCV (80.0-100.0) fL MCH (25.0-35.0) pg MCHC (31.0-37.0) g/dL RDW (11.5-15.5) % Plt Count (150-450) k/uL MPV Neutrophils % % Lymphocytes % % Monocytes % % Eosinophils % % Basophils % % Neutrophils # (1.3-7.7) k/uL Lymphocytes # (1.0-4.8) k/uL Monocytes # (0-1.0) k/uL Eosinophils # (0-0.7) k/uL Basophils # (0-0.2) k/uL Manual Slide Review Large Platelets Hypochromasia Poikilocytosis (manual Macrocytosis PT (9.0-12.0) sec INR (<1.2) APTT (22.0-30.0) sec Sample Site r brach ABG pH 7.37 (7.35-7.45) ABG pCO2 31 L (35-45) mmHg ABG pO2 88 (83-108) mmHg ABG HCO3 18 L (21-25) mmol/L ABG Total CO2 19 (19-24) mmol/L ABG O2 Saturation 96.9 (94-97) % ABG Base Excess -7.7 mmol/L Abdullahi Test na FiO2 100 % Sodium (137-145) mmol/L Potassium (3.5-5.1) mmol/L Chloride (98-107) mmol/L Carbon Dioxide (22-30) mmol/L Anion Gap mmol/L BUN (9-20) mg/dL Creatinine (0.66-1.25) mg/dL Est GFR (CKD-EPI)AfAm (>60 ml/min/1.73 sqM) Est GFR (CKD-EPI)NonAf (>60 ml/min/1.73 sqM) Glucose (74-99) mg/dL POC Glucose (mg/dL) 499 H (70-110) mg/dL POC Glu Dynamometer Tuner ID Gricel Breen Plasma Lactic Acid Ralph (0.7-2.0) mmol/L Calcium (8.4-10.2) mg/dL Magnesium (1.6-2.3) mg/dL Total Bilirubin (0.2-1.3) mg/dL AST (17-59) U/L ALT (4-49) U/L Alkaline Phosphatase (38-126) U/L Troponin I (0.000-0.034) ng/mL Total Protein (6.3-8.2) g/dL Albumin (3.5-5.0) g/dL Urine Color Yellow Urine Appearance Cloudy (Clear) Urine pH 5.0 (5.0-8.0) Ur Specific Alpine 1.018 (1.001-1.035) Urine Protein Trace H (Negative) Urine Glucose (UA) 3+ H (Negative) Urine Ketones Negative (Negative) Urine Blood Small H (Negative) Urine Nitrite Negative (Negative) Urine Bilirubin Negative (Negative) Urine Urobilinogen <2.0 (<2.0) mg/dL Ur Leukocyte Esterase Large H (Negative) Urine RBC 3 (0-5) /hpf Urine WBC 103 H (0-5) /hpf Urine Bacteria Occasional H (None) /hpf Hyaline Casts 1 (0-2) /lpf Urine Mucus Rare H (None) /hpf Critical Care Time Critical Care Time: Yes Total Critical Care Time: 75 Disposition Clinical Impression: Sepsis, Pneumonia, UTI (urinary tract infection), Sepsis with acute hypoxic respiratory failure Disposition: ADMITTED IP TO THIS [facility] Condition: Critical Referrals: Wilfred Cazares MD [Primary Care Provider] - 1-2 days Decision Time: 19:25
[2022-02-28 16:33] LABS: Glucose,Whole Blood 499 mg/dL (70-110)
[2022-02-28] MEDS ORDERED: VANCOMYCIN 1,500 MG in SODIUM CHLORIDE 0.9% 250 ML IVPB ONE (17:00)
[2022-02-28 17:01] LABS: ABG Base Excess -7.7 mmol/L; ABG HCO3 18 mmol/L (21-25); ABG Oxygen Saturation 96.9 % (94-97); ABG PCO2 31 mmHg (35-45); ABG PH 7.37 (7.35-7.45); ABG PO2 88 mmHg (83-108); ABG TCO2 19 mmol/L (19-24)
--- NOTE | 2022-02-28 17:03 | XR ---
EXAMINATION TYPE: XR chest 1V portable DATE OF EXAM: 02/28/2022 HISTORY: Shortness of breath. COMPARISON: 12/11/2021 TECHNIQUE: Single view of the chest is submitted. FINDINGS: Demonstrated are scattered senescent parenchymal change. Infiltrate right lower lobe. Correlate for pneumonia. The heart is stable. Hilar and mediastinal structures are within normal limits. Degenerative changes are seen of the dorsal spine. IMPRESSION: 1. Infiltrate right lower lobe. Correlate for pneumonia.
[2022-02-28] MEDS ORDERED: DEXAMETHASONE SOD PHOSPHATE 10 MG/ML 1 ML VIAL IVP STA (17:11)
[2022-02-28 17:16] LABS: Appearance,Urine Cloudy (Clear); Bacteria,Urine Occasional /hpf; Bilirubin,Urine Negative (Negative); Blood,Urine Small (Negative); Color,Urine Yellow; Glucose,Urine (UA) 3+ (Negative); Hyaline Casts,Urine 1 /lpf (0-2); Ketones,Urine Negative (Negative); Leukocyte Esterase,Urine Large (Negative); Mucus,Urine Rare /hpf; Nitrite,Urine Negative (Negative); Protein,Urine Trace (Negative); RBC,Urine 3 /hpf (0-5); Specific Gravity,Urine 1.018 (1.001-1.035); Urobilinogen,Urine <2.0 mg/dL (<2.0); WBC,Urine 103 /hpf (0-5)
[2022-02-28 17:19] LABS: Basophils % (A) 0 %; Eosinophils % (A) 0 %; HCT 36.1 % (39.0-53.0); HGB 10.5 gm/dL (13.0-17.5); Hypochromasia Marked; Lymphocytes # (A) 0.6 k/uL (1.0-4.8); Lymphocytes % (A) 12 %; MCH 30.4 pg (25.0-35.0); MCHC 29.1 g/dL (31.0-37.0); MCV 104.2 fL (80.0-100.0); Macrocytosis Moderate; Mean Platelet Volume 16.5; Monocytes # (A) 0.2 k/uL (0-1.0); Monocytes % (A) 3 %; Neutrophils # (A) 4.3 k/uL (1.3-7.7); Neutrophils % (A) 83 %; Platelet Count 152 k/uL (150-450); RBC 3.46 m/uL (4.30-5.90); RDW 15.1 % (11.5-15.5); WBC 5.2 k/uL (3.8-10.6)
[2022-02-28 17:22] LABS: Albumin 2.8 g/dL (3.5-5.0); Calcium 8.9 mg/dL (8.4-10.2); Magnesium 3.1 mg/dL (1.6-2.3); Total Bilirubin 0.5 mg/dL (0.2-1.3)
[2022-02-28 17:24] LABS: INR 1.2 (<1.2); Partial Thromboplastin Time 24.6 sec (22.0-30.0); Prothrombin Time 12.7 sec (9.0-12.0)
[2022-02-28 18:10] LABS: Large Platelets Present; Poikilocytosis (M) Present
--- NOTE | 2022-02-28 18:15 | CT ---
EXAMINATION TYPE: CT brain wo con DATE OF EXAM: 02/28/2022 COMPARISON: 02/15/2022 HISTORY: AMS CT DLP: [address] of the brain was performed. The ventricles, basal cisterns and sulci overlying the cerebral convexities demonstrate moderate enla rgement. Remote bifrontal insults. Right frontal craniotomy change. There is small right frontal parietal subdural collection currently measuring 7 mm in thickness versus prior measurement of approximately 7 mm. There is decreased attenuation about the periventricular white matter and deep white matter of both c erebral hemispheres, compatible with chronic small vessel ischemia. Differential diagnosis does inclu de demyelination. No mass effects are seen.No midline shift. Osseous calvarium is intact. If symptoms persist consider MRI. IMPRESSION: 1. Age related atrophic and chronic small vessel ischemic change without acute intracranial process s een at this time. 2. Stable chronic right-sided subdural collection. No acute intracranial hemorrhage seen.
--- NOTE | 2022-02-28 18:27 | CT ---
6 EXAMINATION TYPE: CT abdomen pelvis wo con DATE OF EXAM: 02/28/2022 COMPARISON: 05/13/2021 HISTORY: Suspected retroperitoneal hemorrhage CT DLP: 875 mGycm Examination of the solid and hollow viscera is limited given the lack of contrast. FINDINGS: LUNG BASES: Right lower lobe infiltrate. Small left basilar infiltrate and effusion. LIVER/GB: The gallbladder is unremarkable. No space-occupying hepatic lesion. There appears to be cat heter adjacent to the liver edge. Correlate clinically. Previously noted perihepatic effusion has res olved. PANCREAS: No pancreatic mass identified. No inflammatory process seen. SPLEEN: No evidence for splenomegaly. No intrasplenic lesions seen. ADRENALS: No adrenal nodules identified. No evidence for thickening. KIDNEYS: The left kidney is surgically absent. No evidence for renal mass. No nephrolithiasis. No hyd ronephrosis. There is a Ramirez balloon catheter within the urinary bladder. Urinary bladder demonstrat es hyperdense debris which may reflect hemorrhagic component. There is wall thickening and anterior f ocus of air within the bladder wall. BOWEL: Appendix has a normal appearance. No evidence of bowel obstruction. No inflammatory process. Lymph nodes: No evidence for adenopathy greater than 1 cm. Abdominal aorta: Atheromatous changes seen. No evidence for aneurysm. Genital organs: No significant abnormality. Other: No evidence for retroperitoneal hematoma. IMPRESSION: 1. No evidence for retroperitoneal hematoma. 2. Bibasilar pneumonia. Correlate for aspiration. 3. Correlate for hemorrhagic material within the urinary bladder. Urinary bladder wall thickening ant erior focus of air.
[2022-02-28] MEDS ORDERED: NALOXONE 0.4 MG/ML 1 ML VIAL IV PRN (19:14)
[2022-02-28] MEDS ORDERED: ACETAMINOPHEN TAB 325 MG TAB PO PRN (19:14)
[2022-02-28 21:16] LABS: Glucose,Whole Blood 485 mg/dL (70-110)
[2022-02-28 21:33] LABS: Glucose,Whole Blood 522 mg/dL (70-110)
[2022-02-28] MEDS: SODIUM CHLORIDE 0.9% 1,000 ML IV SCH (22:10)
[2022-02-28] MEDS ORDERED: INSULIN REGULAR BOLUS (FROM DRIP BAG) IV ONE (22:15)
[2022-02-28] MEDS: INSULIN REGULAR 100 UNIT in SODIUM CHLORIDE 0.9% 100 ML IV SCH (22:26)
[2022-02-28 23:01] LABS: Glucose,Whole Blood 508 mg/dL (70-110)
[2022-02-28 23:20] LABS: African American GFR (CKD) 12 (>60 ml/min/1.73 sqM); Anion Gap 13 mmol/L; Carbon Dioxide 16 mmol/L (22-30); Glucose 482 mg/dL (74-99); Non-African American GFR(CKD) 10 (>60 ml/min/1.73 sqM); Potassium 4.6 mmol/L (3.5-5.1); Sodium 160 mmol/L (137-145)
[2022-02-28 23:35] LABS: Blood Urea Nitrogen 169 mg/dL (9-20)
[2022-02-28 23:37] LABS: Chloride 131 mmol/L (98-107)
[2022-02-28 23:54] LABS: HGB 9.3 gm/dL (13.0-17.5); Hypochromasia Marked; MCH 30.8 pg (25.0-35.0); MCHC 29.1 g/dL (31.0-37.0); MCV 105.8 fL (80.0-100.0); Macrocytosis Moderate; Mean Platelet Volume 15.5; Platelet Count 104 k/uL (150-450); RBC 3.03 m/uL (4.30-5.90); RDW 15.4 % (11.5-15.5); WBC 3.3 k/uL (3.8-10.6)
[2022-02-28 23:58] LABS: Glucose,Whole Blood 386 mg/dL (70-110)
[2022-03-01] MEDS: METOPROLOL TARTRATE 5 MG/5 ML VIAL IVP SCH ×5 (00:12→23:46)
[2022-03-01 01:07] LABS: Glucose,Whole Blood 311 mg/dL (70-110)
[2022-03-01 01:10] LABS: Phosphorus 4.7 mg/dL (2.5-4.5); Potassium 4.2 mmol/L (3.5-5.1)
[2022-03-01 02:10] LABS: Glucose,Whole Blood 219 mg/dL (70-110)
[2022-03-01 02:59] LABS: Glucose,Whole Blood 182 mg/dL (70-110)
[2022-03-01] MEDS ORDERED: D5-0.45% NACL WITH KCL 20MEQ/L 1,000 ML IV SCH (03:00)
[2022-03-01] MEDS: SODIUM CHLORIDE 0.9% 1,000 ML IV SCH ×2 (03:38→08:02)
[2022-03-01] MEDS: DEXTROSE 5% IN WATER 1,000 ML IV SCH ×3 (03:40→16:21)
[2022-03-01 04:09] LABS: Band Neutrophils % 40 %; Metamyelocytes # (M) 0.03 k/uL (0); Metamyelocytes % 1 %; Monocytes # (M) 0.03 k/uL (0-1.0); Neutrophils % (M) 48 %; Nucleated Red Blood Cells 0 /100 WBC (0-0); Total Cells Counted 200
[2022-03-01 04:10] LABS: Ovalocytes Present; Poikilocytosis (M) Present
[2022-03-01 04:11] LABS: Large Platelets Present
[2022-03-01 04:12] LABS: RBC Fragments Present
[2022-03-01 04:12] LABS: Glucose,Whole Blood 131 mg/dL (70-110)
[2022-03-01] MEDS ORDERED: SODIUM CHLORIDE 0.9% 2,000 ML IV ONE (04:29)
[2022-03-01 05:03] LABS: Glucose,Whole Blood 112 mg/dL (70-110)
[2022-03-01 06:05] LABS: Glucose,Whole Blood 87 mg/dL (70-110)
[2022-03-01 06:16] LABS: HCT 27.2 % (39.0-53.0); HGB 8.1 gm/dL (13.0-17.5); Hypochromasia Marked; MCH 30.5 pg (25.0-35.0); MCHC 29.9 g/dL (31.0-37.0); MCV 102.1 fL (80.0-100.0); Macrocytosis Slight; Mean Platelet Volume 16.2; Platelet Count 100 k/uL (150-450); RBC 2.66 m/uL (4.30-5.90); RDW 14.8 % (11.5-15.5); WBC 3.7 k/uL (3.8-10.6)
[2022-03-01 06:35] LABS: Calcium 7.7 mg/dL (8.4-10.2); Phosphorus 3.7 mg/dL (2.5-4.5); Potassium 4.5 mmol/L (3.5-5.1)
[2022-03-01 06:38] LABS: Glucose,Whole Blood 103 mg/dL (70-110)
[2022-03-01 08:00] LABS: Glucose,Whole Blood 168 mg/dL (70-110)
[2022-03-01 09:09] LABS: Band Neutrophils % 5 %; Large Platelets Present; Lymphocytes # (M) 0.85 k/uL (1.0-4.8); Monocytes # (M) 0.15 k/uL (0-1.0); Neutrophils % (M) 68 %; Nucleated Red Blood Cells 0 /100 WBC (0-0); Total Cells Counted 100
[2022-03-01 09:33] LABS: Glucose,Whole Blood 221 mg/dL (70-110)
--- NOTE | 2022-03-01 09:37 | P.NPCON ---
History of Present Illness - Reason for Consult acute renal failure, hypernatremia - History of Present Illness Reason for consultation: Acute kidney injury and hypernatremia History of present illness: Patient is a 87-year-old male seen in renal consultation for acute kidney injury on chronic kidney disease and hypernatremia. Patient has chronic kidney disease stage III with baseline creatinine in the range of 1.3-1.4 secondary to solitary right kidney. Patient has history of left nephrectomy. Patient resides at an extended care facility and was brought to the hospital due to lethargy weakness and hypotension. Patient's sodium level on admission was 160 and is 161 this morning. Creatinine was 4.97 on admission and is 4.3 today. Patient was noted to be in DKA with blood sugars above 500. He is currently on insulin drip. He initially receive normal saline at 200 mL an hour and is now maintained on D5 W at 1 50 mL an hour. He is not on any vasopressor support. Oral intake is poor. Swallow eval is pending. I don't see any NSAIDs and his home medication list. Urine output has been about 40 mL an hour. Last hour it was 75 mL. No fever. UA suggestive of UTI. He did receive cefepime and is also on vancomycin. Vital signs are stable. General: Awake. Confused. HEENT: Head exam is unremarkable. LUNGS: Breath sounds decreased. HEART: Rate and Rhythm are regular. ABDOMEN: Soft, no distention. EXTREMITITES: No edema. Past Medical History Past Medical History: Atrial Fibrillation, Cancer, COPD, Diabetes Mellitus, Eye Disorder, Hearing Disorder / Deafness, Hypertension, Pneumonia, Prostate Disorder, Renal Disease Additional Past Medical History / Comment(s): Pt recently admitted to [facility] on 01/25/20 with a mechanical fall/hematoma R buttock and acute blood loss anemia. Other hx: 2010 Brain cancer with surgery and radiation, L nephrectomy d/t deteriorating kidney, CKD stage III, BPH, chronic thrombocytopenia, chronic anemia, diet controlled diabetes, generalized arthritis, L2 compression fracture, blind R eye, [place] bl[place], seasonal allergies. 05/14/21 admitted with abdominal hematoma History of Any Multi-Drug Resistant Organisms: None Reported Additional Past Surgical History / Comment(s): L nephrectomy, brain tumor removal, bilateral cataract removals, colonoscopy. Past Anesthesia/Blood Transfusion Reactions: No Reported Reaction Additional Past Anesthesia/Blood Transfusion Reaction / Comment(s): Pt has received blood in past without reaction. Past Psychological History: Depression Additional Psychological History / Comment(s): resides at [facility] He used to use a walker to ambulate. per er report patient has been weak and non amb ulatory recently Smoking Status: Former smoker Past Alcohol Use History: None Reported Additional Past Alcohol Use History / Comment(s): Unknown when pt started smoking pipe but quit in 1977. Past Drug Use History: None Reported - Past Family History Father Family Medical History: No Reported History Additional Family Medical History / Comment(s): Father was healthy. He at the age of 62yrs in a MVA. Mother Additional Family Medical History / Comment(s): Mother at the age of 86yrs of "heart problems." Brother(s) Additional Family Medical History / Comment(s): Patient has 3 brothers and one is passed from old age. Patient has 4 sisters with no major medical problems. Patient had 2 children one from muscular dystrophy and one is alive with no major medical problems. Medications and Allergies Home Medications Medication Instructions Recorded Confirmed Type Sertraline [Zoloft] 50 mg PO HS@209901/25/20 02/28/22 History allopurinoL [Zyloprim] 100 mg PO DAILY@89901/25/20 02/28/22 History Pioglitazone [Actos] 15 mg PO DAILY@59905/13/21 02/28/22 History Tolterodine Tartrate [Detrol LA] 4 mg PO HS@209911/12/21 02/28/22 History Acetaminophen [Tylenol] 650 mg PO Q4H PRN 12/11/21 02/28/22 History Ferrous Sulfate 330 mg PO DAILY@89902/28/22 02/28/22 History Levofloxacin [Levaquin] 250 mg PO HS@209902/28/22 02/28/22 History Magnesium Hydroxide [Milk of 2,400 mg PO ONCE PRN 02/28/22 02/28/22 History Magnesia] Metoprolol Succinate (ER) [Toprol 25 mg PO HS@209902/28/22 02/28/22 History Xl] Multivitamins, Thera Liquid 5 ml PO DAILY@89902/28/22 02/28/22 History [Theragran Liquid (formulary)] Na Phos,M-B/Na Phos,Di-Ba [Fleet 118 ml RECTAL DAILY PRN 02/28/22 02/28/22 History Adult] Nitroglycerin Sl Tabs [Nitrostat] 0.4 mg SUBLINGUAL Q5M PRN 02/28/22 02/28/22 History Omeprazole 20 mg PO DAILY@0600 02/28/22 02/28/22 History bisacodyL [Dulcolax] 10 mg RECTAL DAILY PRN 02/28/22 02/28/22 History guaiFENesin [guaiFENesin Oral 100 mg PO Q6H PRN 02/28/22 02/28/22 History Solution] methylPREDNISolone Dose Pack See Taper PO DAILY 02/28/22 02/28/22 History [Medrol Dose Pack] Allergies Allergy/AdvReac Type Severity Reaction Status Date / Time No Known Allergies Allergy Verified 02/28/22 17:46 Physical Exam Vitals: Vital Signs Temp Pulse Pulse Resp BP BP Pulse Ox 03/01/22 08:30 80 21 102/58 92 L 03/01/22 08:04 91 L 03/01/22 08:00 97.4 F L 86 28 H 101/55 91 L 03/01/22 07:30 85 22 91/60 89 L 03/01/22 07:00 83 25 H 105/56 91 L 03/01/22 06:30 77 28 H 100/54 90 L 03/01/22 06:00 80 25 H 105/59 91 L 03/01/22 05:30 81 25 H 94/61 94 L 03/01/22 05:00 86 26 H 87/52 94 L 03/01/22 04:30 90 27 H 75/55 93 L 03/01/22 04:00 97.6 F 84 29 H 91/55 93 L 03/01/22 03:30 89 22 79/51 93 L 03/01/22 03:00 87 26 H 87/54 93 L 03/01/22 02:30 90 27 H 80/54 93 L 03/01/22 02:00 91 27 H 86/51 92 L 03/01/22 01:30 97 30 H 102/60 92 L 03/01/22 01:00 101 H 22 92/71 92 L 03/01/22 00:30 87 26 H 106/66 96 03/01/22 00:02 104 H 21 106/70 94 L 03/01/22 00:00 97.7 F 107 H 16 108/65 96 02/28/22 23:45 104 H 18 106/69 94 L 02/28/22 23:30 105 H 22 106/59 93 L 02/28/22 23:15 98 26 H 105/64 93 L 02/28/22 23:00 112 H 26 H 96/64 92 L 02/28/22 22:45 105 H 24 96/64 91 L 02/28/22 22:30 96 25 H 101/60 97 02/28/22 22:15 103 H 20 109/57 94 L 02/28/22 22:00 99 20 103/56 98 02/28/22 21:50 102 H 22 106/63 98 02/28/22 21:40 98.1 F 104 H 29 H 85/64 95 02/28/22 21:16 104 H 22 111/68 91 L 02/28/22 20:00 100 22 112/61 93 L 02/28/22 19:34 98.1 F 104 H 29 H 85/64 95 02/28/22 18:30 110 H 22 116/61 93 L 02/28/22 17:54 115 H 26 H 114/61 91 L 02/28/22 16:31 20 02/28/22 16:15 98.8 F 122 H 26 H 89/59 Intake and Output 02/28/22 03/01/22 03/01/22 22:59 06:59 14:59 Intake Total 1454.749 300 Output Total 450 330 110 Balance -450 1124.749 190 Intake: IV 1400 300 D5-0.45% NaCl with KCl 150 20Meq/l 1,000 ml @ 150 mls/hr IV .Q6H40M [facility] Rx# :[id number] Dextrose 5% in Water 1, 450 300 000 ml @ 150 mls/hr IV . Q6H40M [facility] Rx#:[id number] Sodium Chloride 0.9% 1, 800 000 ml @ 200 mls/hr IV . Q5H [facility] Rx#:[id number] Intake, IV Titration 54.749 Amount Insulin Regular 100 unit 54.749 In Sodium Chloride 0.9% 100 ml @ 0.1 UNITS/KG/HR 8.474 mls/hr IV .[id number] [facility] Rx#:[id number] Output: Urine 450 330 110 Uretheral (Ramirez) 350 Other: Voiding Method Indwelling Catheter Indwelling Catheter Weight 83.4 kg 84 kg Results - Lab Results Most recent lab results ABG pH 7.37 (7.35-7.45) 02/28/22 16:58 ABG pCO2 31 mmHg (35-45) L 02/28/22 16:58 ABG pO2 88 mmHg (83-108) 02/28/22 16:58 ABG HCO3 18 mmol/L (21-25) L 02/28/22 16:58 ABG O2 Saturation 96.9 % (94-97) 02/28/22 16:58 Calcium 7.7 mg/dL (8.4-10.2) L 03/01/22 05:29 Phosphorus 3.7 mg/dL (2.5-4.5) 03/01/22 05:29 Magnesium 3.1 mg/dL (1.6-2.3) H 02/28/22 16:28 03/01/22 05:29 03/01/22 05:29 Assessment and Plan Plan: Assessment: 1. Acute kidney injury mostly prerenal secondary to hypovolemia and infection. Creatinine was 4.9 on admission and is 4.3 today. No hydronephrosis noted on CAT scan. 2. Chronic kidney disease stage IIIa secondary to solitary right kidney. 3. Status post left nephrectomy. 4. Hypernatremia from lack of oral water intake. 5. DKA maintained on insulin drip. 6. Metabolic acidosis secondary to acute kidney injury and DKA. 7. History of dementia. 8. Anemia. Rule out iron deficiency. 9. UTI and possible pneumonia on antibiotics. Infectious disease consulted. Plan: Maintain D5W at 150 mL an hour. Check iron studies. Swallow eval pending. Monitor vancomycin levels. Dose to be adjusted for renal function. Follow-up cultures. Repeat BMP at 1 PM. Thank you for the consultation. I will continue to follow the patient with you during his hospital stay.
[2022-03-01] MEDS: INSULIN REGULAR 100 UNIT in SODIUM CHLORIDE 0.9% 100 ML IV SCH (10:28)
[2022-03-01 10:29] LABS: Glucose,Whole Blood 233 mg/dL (70-110)
[2022-03-01] MEDS ORDERED: DEXTROSE 5% IN WATER 1,000 ML IV ONE (10:39)
[2022-03-01] MEDS ORDERED: INSULIN REGULAR 100 UNIT in SODIUM CHLORIDE 0.9% 100 ML IV SCH (10:45)
[2022-03-01] MEDS: PANTOPRAZOLE 40 MG/10 ML VIAL IVP SCH (11:12)
[2022-03-01 11:47] LABS: Glucose,Whole Blood 331 mg/dL (70-110)
[2022-03-01 12:49] LABS: Glucose,Whole Blood 389 mg/dL (70-110)
--- NOTE | 2022-03-01 13:11 | P.CNPUL ---
History of Present Illness Consult date: 03/01/22 Requesting physician: Wilfred Cazares Reason for consult: other (Acute DKA) Chief complaint: Low blood pressure and lethargy History of present illness: This is an 87-year-old white male with history of multiple comorbidities, patient was brought yesterday by EMS from the nursing facility with mostly complaints of low blood pressure and the patient has been noted to be lethargic. Patient had previous history of documented coronary artery disease, history of intracranial hemorrhage/subdural hematoma, chronic atrial fibrillation, hypertension, diabetes. Patient is not a great historian, apparently when he arrived to the ER, patient was found to have multiple abnormal labs including blood sugar over 500 anion gap metabolic acidosis hypernatremia with sodium of 160 acute kidney injury with BUN of 169 and creatinine 4.75, abnormal urinalysis, and abnormal chest x-ray suggestive of right lower lobe pneumonia questionable aspiration pneumonia considering the patient's overall mental status patient was obviously septic, and dehydrated upon his initial presentation. He received fluid boluses, blood pressure responded to fluid boluses but the patient did not require to be placed on pressors. Patient was placed empirically on antibiotics for presumptive pneumonia and possible urinary tract infection he was placed on the DKA protocol, and when the ER physician discussed the case with me I recommended definite admission to the ICU. Saw the patient this morning, remains on insulin drip at 1 unit per hour. His IV fluid was transitioned from 0.9 normal saline to D5W at 200 mL per hour. Patient is making urine around 50 mL per hour. More fluid boluses were given this morning. And we are closely monitoring his electrolytes and renal profile sodium remains relatively elevated at 160. However his anion gap corrected nicely and his anion gap this morning is 10. Bicarb is 18. Renal profile showed slight improvement since yesterday on admission ABG on admission showed a pO2 of 88 pCO2 31 pH of 7.37 and this was on the percent FiO2 in the ER. Presently the patient is on nasal cannula at 4 L/m and O2 saturations 93% cultures are pending patient remains on Zosyn and I discontinued his cefepime and vancomycin. Review of Systems ROS unobtainable: due to mental status Past Medical History Past Medical History: Atrial Fibrillation, Cancer, COPD, Diabetes Mellitus, Eye Disorder, Hearing Disorder / Deafness, Hypertension, Pneumonia, Prostate Disorder, Renal Disease Additional Past Medical History / Comment(s): Pt recently admitted to [facility] [place] on 01/25/20 with a mechanical fall/hematoma R buttock and acute blood loss anemia. Other hx: 2010 Brain cancer with surgery and radiation, L nephrectomy d/t deteriorating kidney, CKD stage III, BPH, chronic thrombocytopenia, chronic anemia, diet controlled diabetes, generalized arthritis, L2 compression fracture, blind R eye, [place] blaterally, seasonal allergies. 05/14/21 admitted with abdominal hematoma History of Any Multi-Drug Resistant Organisms: None Reported Additional Past Surgical History / Comment(s): L nephrectomy, brain tumor removal, bilateral cataract removals, colonoscopy. Past Anesthesia/Blood Transfusion Reactions: No Reported Reaction Additional Past Anesthesia/Blood Transfusion Reaction / Comment(s): Pt has received blood in past without reaction. Past Psychological History: Depression Additional Psychological History / Comment(s): resides at [facility] He used to use a walker to ambulate. per er report patient has been weak and non ambulatory recently Smoking Status: Former smoker Past Alcohol Use History: None Reported Additional Past Alcohol Use History / Comment(s): Unknown when pt started smoking pipe but quit in 1977. Past Drug Use History: None Reported - Past Family History Father Family Medical History: No Reported History Additional Family Medical History / Comment(s): Father was healthy. He at the age of 62yrs in a MVA. Mother Additional Family Medical History / Comment(s): Mother at the age of 86yrs of "heart problems." Brother(s) Additional Family Medical History / Comment(s): Patient has 3 brothers and one is passed from old age. Patient has 4 sisters with no major medical problems. Patient had 2 children one from muscular dystrophy and one is alive with no major medical problems. Medications and Allergies Home Medications Medication Instructions Recorded Confirmed Type Sertraline [Zoloft] 50 mg PO HS@2100 01/25/20 02/28/22 History allopurinoL [Zyloprim] 100 mg PO DAILY@0900 01/25/20 02/28/22 History Pioglitazone [Actos] 15 mg PO DAILY@0600 05/13/21 02/28/22 History Tolterodine Tartrate [Detrol LA] 4 mg PO HS@2100 11/12/21 02/28/22 History Acetaminophen [Tylenol] 650 mg PO Q4H PRN 12/11/21 02/28/22 History Ferrous Sulfate 330 mg PO DAILY@0902/28/22 02/28/22 History Levofloxacin [Levaquin] 250 mg PO HS@209902/28/22 02/28/22 History Magnesium Hydroxide [Milk of 2,400 mg PO ONCE PRN 02/28/22 02/28/22 History Magnesia] Metoprolol Succinate (ER) [Toprol 25 mg PO HS@209902/28/22 02/28/22 History Xl] Multivitamins, Thera Liquid 5 ml PO DAILY@89902/28/22 02/28/22 History [Theragran Liquid (formulary)] Na Phos,M-B/Na Phos,Di-Ba [Fleet 118 ml RECTAL DAILY PRN 02/28/22 02/28/22 History Adult] Nitroglycerin Sl Tabs [Nitrostat] 0.4 mg SUBLINGUAL Q5M PRN 02/28/22 02/28/22 History Omeprazole 20 mg PO DAILY@59902/28/22 02/28/22 History bisacodyL [Dulcolax] 10 mg RECTAL DAILY PRN 02/28/22 02/28/22 History guaiFENesin [guaiFENesin Oral 100 mg PO Q6H PRN 02/28/22 02/28/22 History Solution] methylPREDNISolone Dose Pack See Taper PO DAILY 02/28/22 02/28/22 History [Medrol Dose Pack] Allergies Allergy/AdvReac Type Severity Reaction Status Date / Time No Known Allergies Allergy Verified 02/28/22 17:46 Physical Exam Vitals: Vital Signs Temp Pulse Pulse Resp BP BP Pulse Ox 03/01/22 12:30 78 23 97/56 93 L 03/01/22 12:00 97.5 F L 80 24 96/60 93 L 03/01/22 11:30 77 40 H 100/64 93 L 03/01/22 11:00 79 24 101/55 92 L 03/01/22 10:30 81 24 96/52 93 L 03/01/22 10:00 85 19 97/73 94 L 03/01/22 09:30 78 19 106/60 92 L 03/01/22 09:00 80 22 97/72 91 L 03/01/22 08:30 80 21 102/58 92 L 03/01/22 08:04 91 L 03/01/22 08:00 97.4 F L 86 28 H 101/55 91 L 03/01/22 07:30 85 22 91/60 89 L 03/01/22 07:00 83 25 H 105/56 91 L 03/01/22 06:30 77 28 H 100/54 90 L 03/01/22 06:00 80 25 H 105/59 91 L 03/01/22 05:30 81 25 H 94/61 94 L 03/01/22 05:00 86 26 H 87/52 94 L 03/01/22 04:30 90 27 H 75/55 93 L 03/01/22 04:00 97.6 F 84 29 H 91/55 93 L 03/01/22 03:30 89 22 79/51 93 L 03/01/22 03:00 87 26 H 87/54 93 L 03/01/22 02:30 90 27 H 80/54 93 L 03/01/22 02:00 91 27 H 86/51 92 L 03/01/22 01:30 97 30 H 102/60 92 L 03/01/22 01:00 101 H 22 92/71 92 L 03/01/22 00:30 87 26 H 106/66 96 03/01/22 00:02 104 H 21 106/70 94 L 03/01/22 00:00 97.7 F 107 H 16 108/65 96 02/28/22 23:45 104 H 18 106/69 94 L 02/28/22 23:30 105 H 22 106/59 93 L 02/28/22 23:15 98 26 H 105/64 93 L 02/28/22 23:00 112 H 26 H 96/64 92 L 02/28/22 22:45 105 H 24 96/64 91 L 02/28/22 22:30 96 25 H 101/60 97 02/28/22 22:15 103 H 20 109/57 94 L 02/28/22 22:00 99 20 103/56 98 02/28/22 21:50 102 H 22 106/63 98 02/28/22 21:40 98.1 F 104 H 29 H 85/64 95 02/28/22 21:16 104 H 22 111/68 91 L 02/28/22 20:00 100 22 112/61 93 L 02/28/22 19:34 98.1 F 104 H 29 H 85/64 95 02/28/22 18:30 110 H 22 116/61 93 L 02/28/22 17:54 115 H 26 H 114/61 91 L 02/28/22 16:31 20 02/28/22 16:15 98.8 F 122 H 26 H 89/59 Intake and Output 02/28/22 03/01/22 03/01/22 22:59 06:59 14:59 Intake Total 5144.761 3992 Output Total 450 330 225 Balance -450 9950.054 0335 Intake: IV 1400 800 D5-0.45% NaCl with KCl 150 20Meq/l 1,000 ml @ 150 mls/hr IV .Q6H40M [facility] Rx# :[id number] Dextrose 5% in Water 1, 450 800 000 ml @ 200 mls/hr IV . Q5H [facility] Rx#:[id number] Sodium Chloride 0.9% 1, 800 000 ml @ 200 mls/hr IV . Q5H [facility] Rx#:[id number] Intake, IV Titration 54.749 1013 Amount Dextrose 5% in Water 1, 1000 000 ml @ 999 mls/hr IV . Q1H1M [facility] Rx#:[id number] Insulin Regular 100 unit 54.749 In Sodium Chloride 0.9% 100 ml @ 0.1 UNITS/KG/HR 8.474 mls/hr IV .[id number] [facility] Rx#:[id number] Insulin Regular 100 unit 13 In Sodium Chloride 0.9% 100 ml @ Per Protocol IV .Q0M [facility] Rx#:[id number] Output: Urine 450 330 225 Uretheral (Ramirez) 350 Other: Voiding Method Indwelling Catheter Indwelling Catheter Weight 83.4 kg 84 kg 84 kg General Impression: Revealed a 87-year-old white male confused, in no distress. HEENT: Normocephalic atraumatic, PERRLA, EOMI, extremely dry mucous membranes noted Cardiovascular: Irregular irregular rhythm, no S3 gallop. 2/6 systolic murmur thought the precordium Chest: Diminished breath sounds and crackles at the bases no rhonchi no wheezes Abdomen: Soft nontender no megaly no rebound no guarding. Musculoskeletal: No limitation in range of motion, no deformities. Motor: no focal deficits noted Neurological: Patient is confused, does not follow instructions, seems to have depressed mood and blunted affect, and poor mental status Skin: No rashes. : Indwelling Ramirez catheter with purulent urine in the Ramirez catheter tubing. Results - Laboratory Findings CBC and BMP: 03/01/22 05:29 03/01/22 05:29 ABG ABG pH 7.37 (7.35-7.45) 02/28/22 16:58 ABG pCO2 31 mmHg (35-45) L 02/28/22 16:58 ABG pO2 88 mmHg (83-108) 02/28/22 16:58 ABG O2 Saturation 96.9 % (94-97) 02/28/22 16:58 PT/INR, D-dimer PT 12.7 sec (9.0-12.0) H 02/28/22 16:28 INR 1.2 (<1.2) H 02/28/22 16:28 Abnormal lab findings: Abnormal Labs 02/28/22 02/28/22 02/28/22 16:28 16:28 16:28 WBC RBC 3.46 L Hgb 10.5 L Hct 36.1 L MCV 104.2 H MCHC 29.1 L Plt Count Lymphocytes # 0.6 L Lymphocytes # (Manual) Metamyelocytes # (Man) PT 12.7 H INR 1.2 H ABG pCO2 ABG HCO3 Sodium 160 H Chloride 125 H Carbon Dioxide 18 L BUN 176 H* Creatinine 4.97 H Glucose 515 H* POC Glucose (mg/dL) Hemoglobin A1c Plasma Lactic Acid Ralph Calcium Phosphorus Magnesium 3.1 H AST 13 L Total Protein 6.0 L Albumin 2.8 L Urine Protein Urine Glucose (UA) Urine Blood Ur Leukocyte Esterase Urine WBC Urine Bacteria Urine Mucus 02/28/22 02/28/22 02/28/22 16:28 16:30 16:32 WBC RBC Hgb Hct MCV MCHC Plt Count Lymphocytes # Lymphocytes # (Manual) Metamyelocytes # (Man) PT INR ABG pCO2 ABG HCO3 Sodium Chloride Carbon Dioxide BUN Creatinine Glucose POC Glucose (mg/dL) 560 H 499 H Hemoglobin A1c Plasma Lactic Acid Ralph 3.2 H* Calcium Phosphorus Magnesium AST Total Protein Albumin Urine Protein Urine Glucose (UA) Urine Blood Ur Leukocyte Esterase Urine WBC Urine Bacteria Urine Mucus 02/28/22 02/28/22 02/28/22 16:50 16:58 21:13 WBC RBC Hgb Hct MCV MCHC Plt Count Lymphocytes # Lymphocytes # (Manual) Metamyelocytes # (Man) PT INR ABG pCO2 31 L ABG HCO3 18 L Sodium Chloride Carbon Dioxide BUN Creatinine Glucose POC Glucose (mg/dL) 485 H Hemoglobin A1c Plasma Lactic Acid Ralph Calcium Phosphorus Magnesium AST Total Protein Albumin Urine Protein Trace H Urine Glucose (UA) 3+ H Urine Blood Small H Ur Leukocyte Esterase Large H Urine WBC 103 H Urine Bacteria Occasional H Urine Mucus Rare H 02/28/22 02/28/22 02/28/22 21:32 22:53 22:53 WBC 3.3 L RBC 3.03 L Hgb 9.3 L Hct 32.0 L MCV 105.8 H MCHC 29.1 L Plt Count 104 L Lymphocytes # Lymphocytes # (Manual) 0.40 L Metamyelocytes # (Man) 0.03 H PT INR ABG pCO2 ABG HCO3 Sodium 160 H Chloride 131 H* Carbon Dioxide 16 L BUN 169 H* Creatinine 4.75 H Glucose 482 H POC Glucose (mg/dL) 522 H Hemoglobin A1c Plasma Lactic Acid Ralph Calcium Phosphorus Magnesium AST Total Protein Albumin Urine Protein Urine Glucose (UA) Urine Blood Ur Leukocyte Esterase Urine WBC Urine Bacteria Urine Mucus 02/28/22 02/28/22 03/01/22 23:00 23:56 00:39 WBC RBC Hgb Hct MCV MCHC Plt Count Lymphocytes # Lymphocytes # (Manual) Metamyelocytes # (Man) PT INR ABG pCO2 ABG HCO3 Sodium 162 H* Chloride 132 H* Carbon Dioxide 16 L BUN 169 H* Creatinine 4.82 H Glucose 313 H POC Glucose (mg/dL) 508 H 386 H Hemoglobin A1c Plasma Lactic Acid Ralph Calcium Phosphorus 4.7 H Magnesium AST Total Protein Albumin Urine Protein Urine Glucose (UA) Urine Blood Ur Leukocyte Esterase Urine WBC Urine Bacteria Urine Mucus 03/01/22 03/01/22 03/01/22 01:05 02:09 02:57 WBC RBC Hgb Hct MCV MCHC Plt Count Lymphocytes # Lymphocytes # (Manual) Metamyelocytes # (Man) PT INR ABG pCO2 ABG HCO3 Sodium Chloride Carbon Dioxide BUN Creatinine Glucose POC Glucose (mg/dL) 311 H 219 H 182 H Hemoglobin A1c Plasma Lactic Acid Ralph Calcium Phosphorus Magnesium AST Total Protein Albumin Urine Protein Urine Glucose (UA) Urine Blood Ur Leukocyte Esterase Urine WBC Urine Bacteria Urine Mucus 07/04/1503/01/22 03/01/22 04:10 05:00 05:29 WBC RBC Hgb Hct MCV MCHC Plt Count Lymphocytes # Lymphocytes # (Manual) Metamyelocytes # (Man) PT INR ABG pCO2 ABG HCO3 Sodium 161 H* Chloride 133 H* Carbon Dioxide 18 L BUN 162 H* Creatinine 4.30 H Glucose POC Glucose (mg/dL) 131 H 112 H Hemoglobin A1c Plasma Lactic Acid Ralph Calcium 7.7 L Phosphorus Magnesium AST Total Protein Albumin Urine Protein Urine Glucose (UA) Urine Blood Ur Leukocyte Esterase Urine WBC Urine Bacteria Urine Mucus 03/01/22 03/01/22 03/01/22 05:29 05:29 07:59 WBC 3.7 L RBC 2.66 L Hgb 8.1 L Hct 27.2 L MCV 102.1 H MCHC 29.9 L Plt Count 100 L Lymphocytes # Lymphocytes # (Manual) 0.85 L Metamyelocytes # (Man) PT INR ABG pCO2 ABG HCO3 Sodium Chloride Carbon Dioxide BUN Creatinine Glucose POC Glucose (mg/dL) 168 H Hemoglobin A1c 9.2 H Plasma Lactic Acid Ralph Calcium Phosphorus Magnesium AST Total Protein Albumin Urine Protein Urine Glucose (UA) Urine Blood Ur Leukocyte Esterase Urine WBC Urine Bacteria Urine Mucus 03/01/22 03/01/22 03/01/22 09:31 10:28 11:45 WBC RBC Hgb Hct MCV MCHC Plt Count Lymphocytes # Lymphocytes # (Manual) Metamyelocytes # (Man) PT INR ABG pCO2 ABG HCO3 Sodium Chloride Carbon Dioxide BUN Creatinine Glucose POC Glucose (mg/dL) 221 H 233 H 331 H Hemoglobin A1c Plasma Lactic Acid Ralph Calcium Phosphorus Magnesium AST Total Protein Albumin Urine Protein Urine Glucose (UA) Urine Blood Ur Leukocyte Esterase Urine WBC Urine Bacteria Urine Mucus 03/01/22 12:48 WBC RBC Hgb Hct MCV MCHC Plt Count Lymphocytes # Lymphocytes # (Manual) Metamyelocytes # (Man) PT INR ABG pCO2 ABG HCO3 Sodium Chloride Carbon Dioxide BUN Creatinine Glucose POC Glucose (mg/dL) 389 H Hemoglobin A1c Plasma Lactic Acid Ralph Calcium Phosphorus Magnesium AST Total Protein Albumin Urine Protein Urine Glucose (UA) Urine Blood Ur Leukocyte Esterase Urine WBC Urine Bacteria Urine Mucus - Diagnostic Findings Chest x-ray: image reviewed (Suspicious for right lower lobe pneumonia) Additional studies: Brain CT showed 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 Acute on chronic kidney disease patient had history of chronic kidney disease stage IIIa and he had a solitary right Free water deficit with hypernatremia Profound dehydration, secondary to above History of Alzheimer's dementia Acute anion gap metabolic acidosis secondary to acute kidney injury and diabetic ketoacidosis Chronic anemia possibly iron deficiency anemia Acute aspiration pneumonia is strongly suspected Chronic urinary tract infection is also suspect Recommendation: Continue to monitor in the ICU Continue D5W at 200 mL per hour Consider swallow evaluation Discontinue vancomycin and start the patient on Zosyn until further cultures are available and antibiotics will be adjusted accordingly Continue insulin drip and follow protocol. GI and DVT prophylaxis however the patient will not receive any anticoagulation therapy because of his previous history of subdural hematoma We will continue to monitor in the ICU. And monitor closely for now. Time with Patient: Greater than 30
[2022-03-01 14:00] LABS: Calcium 7.4 mg/dL (8.4-10.2); Potassium 4.6 mmol/L (3.5-5.1)
[2022-03-01 14:03] LABS: Glucose,Whole Blood 382 mg/dL (70-110)
[2022-03-01 14:57] LABS: Glucose,Whole Blood 399 mg/dL (70-110)
--- NOTE | 2022-03-01 15:13 | P.HPIM ---
History of Present Illness H&P Date: 03/01/22 HISTORY OF PRESENT ILLNESS This is an 87-year-old male patient of Dr. Hurd with past medical history of Parkinsons disease, Alzheimers dementia, diabetes mellitus type 2, chronic atrial fibrillation not on anticoagulation due to retroperitoneal hematoma, history of pneumonia, benign prostatic hypertrophy, chronic kidney disease with history of left-sided nephrectomy, history of large retroperitoneal hematoma 04/2021, history of aspiration pneumonia. Patient was hospitalized at [facility] due to failure to thrive increasing weakness and difficulty ambulatingfor 2 weeks and progressively worsening. Patient was treated for UTI and streptococcal bacteremia seen by infectious disease thought this was a contamination. Echocardiogram did not show any abnormalities suspicious for endocarditis. ID recommended a short course of Ceftin and patient was discharged to [facility] for subacute rehab. Patient was subsequently admitted for A. fib RVR and aspiration pneumonia. He was stabilized and discharged back to [facility] for subacute rehab. Upon his return, patient has been more weak, less involved in his care then prior admissions yesterday, patient was transf erred to [facility] emergency center due to altered mental status and hypotension. Patient was found to be afebrile, heart rate 122, respiratory rate 26, blood pressure 89/59, pulse ox 91% on nonrebreather. EKG was atrial fibrillation with RVR with a ventricular rate of 123. WBC 5.2, hemoglobin 10.5, platelet count 152. Sodium 160, potassium 5, chloride 125, CO2 18, anion gap 17, BUN 176, creatinine 4.9. Blood sugar 515. Lactic acid 3.2. Calcium 8.9. Magnesium 3.1. Total bilirubin 0.5, AST 13 ALT 15, alkaline phosphatase 79. Urinalysis cloudy, glucose 3+, blood small, leukoesterase large, WBCs 103. Acetone positive Chest x-ray revealed infiltrate right lower lung CAT scan of the abdomen and pelvis without contrast revealed no evidence of retroperitoneal hematoma. Bibasilar pneumonia, correlate for aspiration. Correlate for hemorrhagic material within the urinary bladder. Urinary bladder wall thickening. CAT scan of the brain revealed age-related atrophy and chronic small vessel ischemic change without acute intracranial process. Stable chronic right sided subdural collection. No acute intracranial hemorrhage. Patient was admitted into intensive care unit, consult with nephrology and sheet heater.. REVIEW OF SYSTEMS Constitutional: + fever, no chills, no night sweats. No weight change. Noted weakness, noted fatigue no lethargy. Noted daytime sleepiness. EENT: No headache. No blurred vision or double vision, no loss of vision. No loss of Hearing, no ringingin the ears, no dizziness. No nasal drainage or congestion. No epistaxis. No sore throat. Lungs: + complaints of shortness of breath, + cough, no sputum production. No wheezing. Cardiovascular: No chest pain, no lower extremity edema. No palpitations. No paroxysmal nocturnal dyspnea. No orthopnea. No lightheadedness or dizziness. No syncopal episodes. Abdominal: No abdominal pain. No nausea, vomiting. No diarrhea. No constipation. No bloody or tarry stools. No loss of appetite. Genitourinary: No dysuria, increased frequency, urgency. No urinary retention. Musculoskeletal: No myalgias. No muscle weakness, reported gait dysfunction, no frequent falls. No back pain. No neck pain. Integumentary: No wounds, no lesions. No rash or pruritus. No unusual bruising. No change in hair or nails. Neurologic: No aphasia. No facial droop. Noted change in mentation. No head injury. No headache. No paralysis. No paresthesia. Psychiatric: No depression. No anxiety. No mood swings. Endocrine: No abnormal blood sugars. No weight change. No excessive sweating or thirst. No cold intolerance. MEDICAL HISTORY Chronic atrial fibrillation not on anticoagulation due to retroperitoneal hematoma COPD Parkinsons disease Alzheimersdementia Diabetes mellitus type 2 Deafness Recurrent pneumonia Benign prostatic hypertrophy Chronic kidney disease stage III Chronic gout Recurrent depression Retroperitoneal hematoma 04/2021 Brain cancer with surgery and radiation in 2009 SURGICAL HISTORY Left nephrectomy Brain tumor removal Bilateral cataract removalColonoscopy SOCIAL HISTORY Patient smoked for long time he quit in 1977, no alcohol abuse, he was still living with his until his hospitalization a week ago when patient was transferred to the jail at the time. FAMILY HISTORY His father from motor vehicle accident is a 62, other from heart disease at 86, patient had 3 brother one of them of old age for sister with no major medical problem. Patient had 2 children one had muscular dystrophy other one is living and well. PHYSICAL EXAMINATION Gen: This is an 87-year-old male. He is resting in ICU bed and appears to be comfortable. No respiratory distress is noted, frequent coughing noted. HEENT: Head is atraumatic, normocephalic. Pupils equal, round. Sclerae is anicteric. NECK: Supple. No JVD. No lymphadenopathy. No thyromegaly. LUNGS: Decreased breath sounds bilaterally with a few scattered rhonchi. No intercostal retractions. +coughing HEART: Irregular rate and rhythm. 2/6 systolic murmur. ABDOMEN: Soft. Bowel sounds are present. No masses. No tenderness. Ramirez draining vincenzo urine with seiment. EXTREMITIES: No pedal edema. No calf tenderness. NEUROLOGICAL: Patient is lethargic, oriented to person and place, generalized weakness. ASSESSMENT AND PLAN 1. Acute sepsis and septic shock secondary to aspiration pneumonia and possible urinary tract infection. Continue patient management in the intensive care unit, pulmonary consult appreciated, patient is on Zosyn 3.375 g IV piggyback every 8 hours. 2. Acute kidney injury secondary to hypovolemia and infection. Consult with nephrology appreciated. Patient is on D5W at 150 mL per hour, monitor vancomycin levels closely. 3. Hypernatremia due to poor oral water intake. Continue D5W at 150 ML's per hour. 4. DKA. Patient is currently on insulin drip managed in the intensive care unit continue DKA protocol. 5. Metabolic acidosis secondary to acute kidney injury and DKA. 6. Anemia of chronic disease. Iron studies ordered. 7. A. fib with RVR. Hold Toprol-XL 25 mg due to hypotension. No plan to start on anticoagulation due to previous bleeding. 8. Chronic atrial fibrillation not on anticoagulation due to retroperitoneal hematoma. 9. Metabolic encephalopathy secondary to pneumonia and sepsis. Continue treatment as above. 10. COPD without exacerbation. 11. Chronic hypoxic respiratory failure recently weaned off oxygen. 12. Diabetes mellitus type 2. Hold Actos 15 mg daily. Patient is on insulin drip with DKA protocol. 13. Benign prostatic hypertrophy with urinary retention and chronic Ramirez catheter. 14. Chronic kidney disease stage III with history of left-sided nephrectomy. Avoid nephrotoxic agents. 15. History of large retroperitoneal hematoma with acute blood loss, stable, 04/2021. 16. Chronic gout. Hold allopurinol 100 mg daily. 17. Recurrent depression. Hold Zoloft 50 mg at bedtime. 18. Generalized anxiety disorder. 19. GI prophylaxis. Protonix 40 mg IV push daily. 20. DVT prophylaxis. SCDs and JARRET hose. CODE STATUS: Full code. Patient admitted to the hospital for a minimum of one night stay. Prognosis guarded DISCHARGE PLAN Likely return to [facility] for subacute rehab. Impression and plan of care have been directed as dictated by the signing physician. Cindy Tobias nurse practitioner acting as scribe for signing physician. Past Medical History Past Medical History: Atrial Fibrillation, Cancer, COPD, Diabetes Mellitus, Eye Disorder, Hearing Disorder / Deafness, Hypertension, Pneumonia, Prostate Disorder, Renal Disease Additional Past Medical History / Comment(s): Pt recently admitted to [facility] on 01/25/20 with a mechanical fall/hematoma R buttock and acute blood loss anemia. Other hx: 2010 Brain cancer with surgery and radiation, L nephrectomy d/t deteriorating kidney, CKD stage III, BPH, chronic thrombocytopenia, chronic anemia, diet controlled diabetes, generalized arthritis, L2 compression fracture, blind R eye, [place] blaterally, seasonal allergies. 05/14/21 admitted with abdominal hematoma History of Any Multi-Drug Resistant Organisms: None Reported Additional Past Surgical History / Comment(s): L nephrectomy, brain tumor r emoval, bilateral cataract removals, colonoscopy. Past Anesthesia/Blood Transfusion Reactions: No Reported Reaction Additional Past Anesthesia/Blood Transfusion Reaction / Comment(s): Pt has received blood in past without reaction. Past Psychological History: Depression Additional Psychological History / Comment(s): resides at [facility] He used to use a walker to ambulate. per er report patient has been weak and non ambulatory recently Smoking Status: Former smoker Past Alcohol Use History: None Reported Additional Past Alcohol Use History / Comment(s): Unknown when pt started smoking pipe but quit in 1977. Past Drug Use History: None Reported - Past Family History Father Family Medical History: No Reported History Additional Family Medical History / Comment(s): Father was healthy. He at the age of 62yrs in a MVA. Mother Additional Family Medical History / Comment(s): Mother at the age of 86yrs of "heart problems." Brother(s) Additional Family Medical History / Comment(s): Patient has 3 brothers and one is passed from old age. Patient has 4 sisters with no major medical problems. Patient had 2 children one from muscular dystrophy and one is alive with no major medical problems. Medications and Allergies Home Medications Medication Instructions Recorded Confirmed Type Sertraline [Zoloft] 50 mg PO HS@209901/25/20 02/28/22 History allopurinoL [Zyloprim] 100 mg PO DAILY@89901/25/20 02/28/22 History Pioglitazone [Actos] 15 mg PO DAILY@59905/13/21 02/28/22 History Tolterodine Tartrate [Detrol LA] 4 mg PO HS@209911/12/21 02/28/22 History Acetaminophen [Tylenol] 650 mg PO Q4H PRN 12/11/21 02/28/22 History Ferrous Sulfate 330 mg PO DAILY@89902/28/22 02/28/22 History Levofloxacin [Levaquin] 250 mg PO HS@209902/28/22 02/28/22 History Magnesium Hydroxide [Milk of 2,400 mg PO ONCE PRN 02/28/22 02/28/22 History Magnesia] Metoprolol Succinate (ER) [Toprol 25 mg PO HS@209902/28/22 02/28/22 History Xl] Multivitamins, Thera Liquid 5 ml PO DAILY@89902/28/22 02/28/22 History [Theragran Liquid (formulary)] Na Phos,M-B/Na Phos,Di-Ba [Fleet 118 ml RECTAL DAILY PRN 02/28/22 02/28/22 History Adult] Nitroglycerin Sl Tabs [Nitrostat] 0.4 mg SUBLINGUAL Q5M PRN 02/28/22 02/28/22 History Omeprazole 20 mg PO DAILY@59902/28/22 02/28/22 History bisacodyL [Dulcolax] 10 mg RECTAL DAILY PRN 02/28/22 02/28/22 History guaiFENesin [guaiFENesin Oral 100 mg PO Q6H PRN 02/28/22 02/28/22 History Solution] methylPREDNISolone Dose Pack See Taper PO DAILY 02/28/22 02/28/22 History [Medrol Dose Pack] Allergies Allergy/AdvReac Type Severity Reaction Status Date / Time No Known Allergies Allergy Verified 02/28/22 17:46 Physical Exam Vitals: Vital Signs Temp Pulse Pulse Resp BP BP Pulse Ox 03/01/22 13:00 73 21 92/58 93 L 03/01/22 12:30 78 23 97/56 93 L 03/01/22 12:00 97.5 F L 80 24 96/60 93 L 03/01/22 11:30 77 40 H 100/64 93 L 03/01/22 11:00 79 24 101/55 92 L 03/01/22 10:30 81 24 96/52 93 L 03/01/22 10:00 85 19 97/73 94 L 03/01/22 09:30 78 19 106/60 92 L 03/01/22 09:00 80 22 97/72 91 L 03/01/22 08:30 80 21 102/58 92 L 03/01/22 08:04 91 L 03/01/22 08:00 97.4 F L 86 28 H 101/55 91 L 03/01/22 07:30 85 22 91/60 89 L 03/01/22 07:00 83 25 H 105/56 91 L 03/01/22 06:30 77 28 H 100/54 90 L 03/01/22 06:00 80 25 H 105/59 91 L 03/01/22 05:30 81 25 H 94/61 94 L 03/01/22 05:00 86 26 H 87/52 94 L 03/01/22 04:30 90 27 H 75/55 93 L 03/01/22 04:00 97.6 F 84 29 H 91/55 93 L 03/01/22 03:30 89 22 79/51 93 L 03/01/22 03:00 87 26 H 87/54 93 L 03/01/22 02:30 90 27 H 80/54 93 L 03/01/22 02:00 91 27 H 86/51 92 L 03/01/22 01:30 97 30 H 102/60 92 L 03/01/22 01:00 101 H 22 92/71 92 L 03/01/22 00:30 87 26 H 106/66 96 03/01/22 00:02 104 H 21 106/70 94 L 03/01/22 00:00 97.7 F 107 H 16 108/65 96 02/28/22 23:45 104 H 18 106/69 94 L 02/28/22 23:30 105 H 22 106/59 93 L 02/28/22 23:15 98 26 H 105/64 93 L 02/28/22 23:00 112 H 26 H 96/64 92 L 02/28/22 22:45 105 H 24 96/64 91 L 02/28/22 22:30 96 25 H 101/60 97 02/28/22 22:15 103 H 20 109/57 94 L 02/28/22 22:00 99 20 103/56 98 02/28/22 21:50 102 H 22 106/63 98 02/28/22 21:40 98.1 F 104 H 29 H 85/64 95 02/28/22 21:16 104 H 22 111/68 91 L 02/28/22 20:00 100 22 112/61 93 L 02/28/22 19:34 98.1 F 104 H 29 H 85/64 95 02/28/22 18:30 110 H 22 116/61 93 L 02/28/22 17:54 115 H 26 H 114/61 91 L 02/28/22 16:31 20 02/28/22 16:15 98.8 F 122 H 26 H 89/59 Intake and Output 02/28/22 03/01/22 03/01/22 22:59 06:59 14:59 Intake Total 5501.687 1793 Output Total 450 330 325 Balance -450 2805.772 9875 Intake: IV 1400 1000 D5-0.45% NaCl with KCl 150 20Meq/l 1,000 ml @ 150 mls/hr IV .Q6H40M KEON Rx# :[id number] Dextrose 5% in Water 1, 450 1000 000 ml @ 200 mls/hr IV . Q5H KEON Rx#:[id number] Sodium Chloride 0.9% 1, 800 000 ml @ 200 mls/hr IV . Q5H KEON Rx#:[id number] Intake, IV Titration 54.749 1023 Amount Dextrose 5% in Water 1, 1000 000 ml @ 999 mls/hr IV . Q1H1M ONE Rx#:[id number] Insulin Regular 100 unit 54.749 In Sodium Chloride 0.9% 100 ml @ 0.1 UNITS/KG/HR 8.474 mls/hr IV .[id number] KEON Rx#:[id number] Insulin Regular 100 unit 23 In Sodium Chloride 0.9% 100 ml @ Per Protocol IV .Q0M KEON Rx#:[id number] Output: Urine 450 330 325 Uretheral (Ramirez) 350 Other: Voiding Method Indwelling Catheter Indwelling Catheter Weight 83.4 kg 84 kg 84 kg Results CBC & Chem 7: 03/01/22 05:29 03/01/22 13:09 Labs: Abnormal Lab Results - Last 24 Hours (Table) 02/28/22 02/28/22 02/28/22 Range/Units 16:28 16:28 16:28 WBC (3.8-10.6) k/uL RBC 3.46 L (4.30-5.90) m/uL Hgb 10.5 L (13.0-17.5) gm/dL Hct 36.1 L (39.0-53.0) % MCV 104.2 H (80.0-100.0) fL MCHC 29.1 L (31.0-37.0) g/dL Plt Count (150-450) k/uL Lymphocytes # 0.6 L (1.0-4.8) k/uL Lymphocytes # (Manual) (1.0-4.8) k/uL Metamyelocytes # (Man) (0) k/uL PT 12.7 H (9.0-12.0) sec INR 1.2 H (<1.2) ABG pCO2 (35-45) mmHg ABG HCO3 (21-25) mmol/L Sodium 160 H (137-145) mmol/L Chloride 125 H (98-107) mmol/L Carbon Dioxide 18 L (22-30) mmol/L BUN 176 H* (9-20) mg/dL Creatinine 4.97 H (0.66-1.25) mg/dL Glucose 515 H* (74-99) mg/dL POC Glucose (mg/dL) (70-110) mg/dL Hemoglobin A1c (0.0-6.0) % Plasma Lactic Acid Ralph (0.7-2.0) mmol/L Calcium (8.4-10.2) mg/dL Phosphorus (2.5-4.5) mg/dL Magnesium 3.1 H (1.6-2.3) mg/dL AST 13 L (17-59) U/L Total Protein 6.0 L (6.3-8.2) g/dL Albumin 2.8 L (3.5-5.0) g/dL Urine Protein (Negative) Urine Glucose (UA) (Negative) Urine Blood (Negative) Ur Leukocyte Esterase (Negative) Urine WBC (0-5) /hpf Urine Bacteria (None) /hpf Urine Mucus (None) /hpf 02/28/22 02/28/22 02/28/22 Range/Units 16:28 16:30 16:32 WBC (3.8-10.6) k/uL RBC (4.30-5.90) m/uL Hgb (13.0-17.5) gm/dL Hct (39.0-53.0) % MCV (80.0-100.0) fL MCHC (31.0-37.0) g/dL Plt Count (150-450) k/uL Lymphocytes # (1.0-4.8) k/uL Lymphocytes # (Manual) (1.0-4.8) k/uL Metamyelocytes # (Man) (0) k/uL PT (9.0-12.0) sec INR (<1.2) ABG pCO2 (35-45) mmHg ABG HCO3 (21-25) mmol/L Sodium (137-145) mmol/L Chloride (98-107) mmol/L Carbon Dioxide (22-30) mmol/L BUN (9-20) mg/dL Creatinine (0.66-1.25) mg/dL Glucose (74-99) mg/dL POC Glucose (mg/dL) 560 H 499 H (70-110) mg/dL Hemoglobin A1c (0.0-6.0) % Plasma Lactic Acid Ralph 3.2 H* (0.7-2.0) mmol/L Calcium (8.4-10.2) mg/dL Phosphorus (2.5-4.5) mg/dL Magnesium (1.6-2.3) mg/dL AST (17-59) U/L Total Protein (6.3-8.2) g/dL Albumin (3.5-5.0) g/dL Urine Protein (Negative) Urine Glucose (UA) (Negative) Urine Blood (Negative) Ur Leukocyte Esterase (Negative) Urine WBC (0-5) /hpf Urine Bacteria (None) /hpf Urine Mucus (None) /hpf 02/28/22 02/28/22 02/28/22 Range/Units 16:50 16:58 21:13 WBC (3.8-10.6) k/uL RBC (4.30-5.90) m/uL Hgb (13.0-17.5) gm/dL Hct (39.0-53.0) % MCV (80.0-100.0) fL MCHC (31.0-37.0) g/dL Plt Count (150-450) k/uL Lymphocytes # (1.0-4.8) k/uL Lymphocytes # (Manual) (1.0-4.8) k/uL Metamyelocytes # (Man) (0) k/uL PT (9.0-12.0) sec INR (<1.2) ABG pCO2 31 L (35-45) mmHg ABG HCO3 18 L (21-25) mmol/L Sodium (137-145) mmol/L Chloride (98-107) mmol/L Carbon Dioxide (22-30) mmol/L BUN (9-20) mg/dL Creatinine (0.66-1.25) mg/dL Glucose (74-99) mg/dL POC Glucose (mg/dL) 485 H (70-110) mg/dL Hemoglobin A1c (0.0-6.0) % Plasma Lactic Acid Ralph (0.7-2.0) mmol/L Calcium (8.4-10.2) mg/dL Phosphorus (2.5-4.5) mg/dL Magnesium (1.6-2.3) mg/dL AST (17-59) U/L Total Protein (6.3-8.2) g/dL Albumin (3.5-5.0) g/dL Urine Protein Trace H (Negative) Urine Glucose (UA) 3+ H (Negative) Urine Blood Small H (Negative) Ur Leukocyte Esterase Large H (Negative) Urine WBC 103 H (0-5) /hpf Urine Bacteria Occasional H (None) /hpf Urine Mucus Rare H (None) /hpf 02/28/22 02/28/22 02/28/22 Range/Units 21:32 22:53 22:53 WBC 3.3 L (3.8-10.6) k/uL RBC 3.03 L (4.30-5.90) m/uL Hgb 9.3 L (13.0-17.5) gm/dL Hct 32.0 L (39.0-53.0) % MCV 105.8 H (80.0-100.0) fL MCHC 29.1 L (31.0-37.0) g/dL Plt Count 104 L (150-450) k/uL Lymphocytes # (1.0-4.8) k/uL Lymphocytes # (Manual) 0.40 L (1.0-4.8) k/uL Metamyelocytes # (Man) 0.03 H (0) k/uL PT (9.0-12.0) sec INR (<1.2) ABG pCO2 (35-45) mmHg ABG HCO3 (21-25) mmol/L Sodium 160 H (137-145) mmol/L Chloride 131 H* (98-107) mmol/L Carbon Dioxide 16 L (22-30) mmol/L BUN 169 H* (9-20) mg/dL Creatinine 4.75 H (0.66-1.25) mg/dL Glucose 482 H (74-99) mg/dL POC Glucose (mg/dL) 522 H (70-110) mg/dL Hemoglobin A1c (0.0-6.0) % Plasma Lactic Acid Ralph (0.7-2.0) mmol/L Calcium (8.4-10.2) mg/dL Phosphorus (2.5-4.5) mg/dL Magnesium (1.6-2.3) mg/dL AST (17-59) U/L Total Protein (6.3-8.2) g/dL Albumin (3.5-5.0) g/dL Urine Protein (Negative) Urine Glucose (UA) (Negative) Urine Blood (Negative) Ur Leukocyte Esterase (Negative) Urine WBC (0-5) /hpf Urine Bacteria (None) /hpf Urine Mucus (None) /hpf 02/28/22 02/28/22 03/01/22 Range/Units 23:00 23:56 00:39 WBC (3.8-10.6) k/uL RBC (4.30-5.90) m/uL Hgb (13.0-17.5) gm/dL Hct (39.0-53.0) % MCV (80.0-100.0) fL MCHC (31.0-37.0) g/dL Plt Count (150-450) k/uL Lymphocytes # (1.0-4.8) k/uL Lymphocytes # (Manual) (1.0-4.8) k/uL Metamyelocytes # (Man) (0) k/uL PT (9.0-12.0) sec INR (<1.2) ABG pCO2 (35-45) mmHg ABG HCO3 (21-25) mmol/L Sodium 162 H* (137-145) mmol/L Chloride 132 H* (98-107) mmol/L Carbon Dioxide 16 L (22-30) mmol/L BUN 169 H* (9-20) mg/dL Creatinine 4.82 H (0.66-1.25) mg/dL Glucose 313 H (74-99) mg/dL POC Glucose (mg/dL) 508 H 386 H (70-110) mg/dL Hemoglobin A1c (0.0-6.0) % Plasma Lactic Acid Ralph (0.7-2.0) mmol/L Calcium (8.4-10.2) mg/dL Phosphorus 4.7 H (2.5-4.5) mg/dL Magnesium (1.6-2.3) mg/dL AST (17-59) U/L Total Protein (6.3-8.2) g/dL Albumin (3.5-5.0) g/dL Urine Protein (Negative) Urine Glucose (UA) (Negative) Urine Blood (Negative) Ur Leukocyte Esterase (Negative) Urine WBC (0-5) /hpf Urine Bacteria (None) /hpf Urine Mucus (None) /hpf 03/01/22 03/01/22 03/01/22 Range/Units 01:05 02:09 02:57 WBC (3.8-10.6) k/uL RBC (4.30-5.90) m/uL Hgb (13.0-17.5) gm/dL Hct (39.0-53.0) % MCV (80.0-100.0) fL MCHC (31.0-37.0) g/dL Plt Count (150-450) k/uL Lymphocytes # (1.0-4.8) k/uL Lymphocytes # (Manual) (1.0-4.8) k/uL Metamyelocytes # (Man) (0) k/uL PT (9.0-12.0) sec INR (<1.2) ABG pCO2 (35-45) mmHg ABG HCO3 (21-25) mmol/L Sodium (137-145) mmol/L Chloride (98-107) mmol/L Carbon Dioxide (22-30) mmol/L BUN (9-20) mg/dL Creatinine (0.66-1.25) mg/dL Glucose (74-99) mg/dL POC Glucose (mg/dL) 311 H 219 H 182 H (70-110) mg/dL Hemoglobin A1c (0.0-6.0) % Plasma Lactic Acid Ralph (0.7-2.0) mmol/L Calcium (8.4-10.2) mg/dL Phosphorus (2.5-4.5) mg/dL Magnesium (1.6-2.3) mg/dL AST (17-59) U/L Total Protein (6.3-8.2) g/dL Albumin (3.5-5.0) g/dL Urine Protein (Negative) Urine Glucose (UA) (Negative) Urine Blood (Negative) Ur Leukocyte Esterase (Negative) Urine WBC (0-5) /hpf Urine Bacteria (None) /hpf Urine Mucus (None) /hpf 03/01/22 03/01/22 03/01/22 Range/Units 04:10 05:00 05:29 WBC (3.8-10.6) k/uL RBC (4.30-5.90) m/uL Hgb (13.0-17.5) gm/dL Hct (39.0-53.0) % MCV (80.0-100.0) fL MCHC (31.0-37.0) g/dL Plt Count (150-450) k/uL Lymphocytes # (1.0-4.8) k/uL Lymphocytes # (Manual) (1.0-4.8) k/uL Metamyelocytes # (Man) (0) k/uL PT (9.0-12.0) sec INR (<1.2) ABG pCO2 (35-45) mmHg ABG HCO3 (21-25) mmol/L Sodium 161 H* (137-145) mmol/L Chloride 133 H* (98-107) mmol/L Carbon Dioxide 18 L (22-30) mmol/L BUN 162 H* (9-20) mg/dL Creatinine 4.30 H (0.66-1.25) mg/dL Glucose (74-99) mg/dL POC Glucose (mg/dL) 131 H 112 H (70-110) mg/dL Hemoglobin A1c (0.0-6.0) % Plasma Lactic Acid Ralph (0.7-2.0) mmol/L Calcium 7.7 L (8.4-10.2) mg/dL Phosphorus (2.5-4.5) mg/dL Magnesium (1.6-2.3) mg/dL AST (17-59) U/L Total Protein (6.3-8.2) g/dL Albumin (3.5-5.0) g/dL Urine Protein (Negative) Urine Glucose (UA) (Negative) Urine Blood (Negative) Ur Leukocyte Esterase (Negative) Urine WBC (0-5) /hpf Urine Bacteria (None) /hpf Urine Mucus (None) /hpf 03/01/22 03/01/22 03/01/22 Range/Units 05:29 05:29 07:59 WBC 3.7 L (3.8-10.6) k/uL RBC 2.66 L (4.30-5.90) m/uL Hgb 8.1 L (13.0-17.5) gm/dL Hct 27.2 L (39.0-53.0) % MCV 102.1 H (80.0-100.0) fL MCHC 29.9 L (31.0-37.0) g/dL Plt Count 100 L (150-450) k/uL Lymphocytes # (1.0-4.8) k/uL Lymphocytes # (Manual) 0.85 L (1.0-4.8) k/uL Metamyelocytes # (Man) (0) k/uL PT (9.0-12.0) sec INR (<1.2) ABG pCO2 (35-45) mmHg ABG HCO3 (21-25) mmol/L Sodium (137-145) mmol/L Chloride (98-107) mmol/L Carbon Dioxide (22-30) mmol/L BUN (9-20) mg/dL Creatinine (0.66-1.25) mg/dL Glucose (74-99) mg/dL POC Glucose (mg/dL) 168 H (70-110) mg/dL Hemoglobin A1c 9.2 H (0.0-6.0) % Plasma Lactic Acid Ralph (0.7-2.0) mmol/L Calcium (8.4-10.2) mg/dL Phosphorus (2.5-4.5) mg/dL Magnesium (1.6-2.3) mg/dL AST (17-59) U/L Total Protein (6.3-8.2) g/dL Albumin (3.5-5.0) g/dL Urine Protein (Negative) Urine Glucose (UA) (Negative) Urine Blood (Negative) Ur Leukocyte Esterase (Negative) Urine WBC (0-5) /hpf Urine Bacteria (None) /hpf Urine Mucus (None) /hpf 03/01/22 03/01/22 03/01/22 Range/Units 09:31 10:28 11:45 WBC (3.8-10.6) k/uL RBC (4.30-5.90) m/uL Hgb (13.0-17.5) gm/dL Hct (39.0-53.0) % MCV (80.0-100.0) fL MCHC (31.0-37.0) g/dL Plt Count (150-450) k/uL Lymphocytes # (1.0-4.8) k/uL Lymphocytes # (Manual) (1.0-4.8) k/uL Metamyelocytes # (Man) (0) k/uL PT (9.0-12.0) sec INR (<1.2) ABG pCO2 (35-45) mmHg ABG HCO3 (21-25) mmol/L Sodium (137-145) mmol/L Chloride (98-107) mmol/L Carbon Dioxide (22-30) mmol/L BUN (9-20) mg/dL Creatinine (0.66-1.25) mg/dL Glucose (74-99) mg/dL POC Glucose (mg/dL) 221 H 233 H 331 H (70-110) mg/dL Hemoglobin A1c (0.0-6.0) % Plasma Lactic Acid Ralph (0.7-2.0) mmol/L Calcium (8.4-10.2) mg/dL Phosphorus (2.5-4.5) mg/dL Magnesium (1.6-2.3) mg/dL AST (17-59) U/L Total Protein (6.3-8.2) g/dL Albumin (3.5-5.0) g/dL Urine Protein (Negative) Urine Glucose (UA) (Negative) Urine Blood (Negative) Ur Leukocyte Esterase (Negative) Urine WBC (0-5) /hpf Urine Bacteria (None) /hpf Urine Mucus (None) /hpf 03/01/22 Range/Units 12:48 WBC (3.8-10.6) k/uL RBC (4.30-5.90) m/uL Hgb (13.0-17.5) gm/dL Hct (39.0-53.0) % MCV (80.0-100.0) fL MCHC (31.0-37.0) g/dL Plt Count (150-450) k/uL Lymphocytes # (1.0-4.8) k/uL Lymphocytes # (Manual) (1.0-4.8) k/uL Metamyelocytes # (Man) (0) k/uL PT (9.0-12.0) sec INR (<1.2) ABG pCO2 (35-45) mmHg ABG HCO3 (21-25) mmol/L Sodium (137-145) mmol/L Chloride (98-107) mmol/L Carbon Dioxide (22-30) mmol/L BUN (9-20) mg/dL Creatinine (0.66-1.25) mg/dL Glucose (74-99) mg/dL POC Glucose (mg/dL) 389 H (70-110) mg/dL Hemoglobin A1c (0.0-6.0) % Plasma Lactic Acid Ralph (0.7-2.0) mmol/L Calcium (8.4-10.2) mg/dL Phosphorus (2.5-4.5) mg/dL Magnesium (1.6-2.3) mg/dL AST (17-59) U/L Total Protein (6.3-8.2) g/dL Albumin (3.5-5.0) g/dL Urine Protein (Negative) Urine Glucose (UA) (Negative) Urine Blood (Negative) Ur Leukocyte Esterase (Negative) Urine WBC (0-5) /hpf Urine Bacteria (None) /hpf Urine Mucus (None) /hpf Microbiology - Last 24 Hours (Table) 02/28/22 16:50 Urine Culture - Preliminary Urine,Voided Thrombosis Risk Factor Assmnt - Choose All That Apply Each Factor Represents 1 point: Obesity (BMI >25), Sepsis (< 1month) Thrombosis Risk Factor Assessment Total Risk Factor Score: 2 Thrombosis Risk Factor Assessment Level: Low Risk
[2022-03-01] MEDS ORDERED: PIPERACILLIN-TAZOBACTAM 3.375 GM in SODIUM CHLORIDE 0.9% 100 ML IVPB SCH (16:00)
[2022-03-01 16:12] LABS: Glucose,Whole Blood 247 mg/dL (70-110)
[2022-03-01] MEDS ORDERED: VANCOMYCIN 1,500 MG in SODIUM CHLORIDE 0.9% 250 ML IVPB ONE (17:00)
[2022-03-01 17:15] LABS: Glucose,Whole Blood 187 mg/dL (70-110)
[2022-03-01 18:14] LABS: Glucose,Whole Blood 130 mg/dL (70-110)
[2022-03-01 18:45] LABS: % Iron Saturation 36.99 (15.00-50.00)
[2022-03-01 18:59] LABS: Glucose,Whole Blood 118 mg/dL (70-110)
[2022-03-01 20:11] LABS: Glucose,Whole Blood 150 mg/dL (70-110)
[2022-03-01 21:08] LABS: Calcium 7.5 mg/dL (8.4-10.2); Potassium 4.7 mmol/L (3.5-5.1)
[2022-03-01 21:36] LABS: Glucose,Whole Blood 179 mg/dL (70-110)
[2022-03-01] MEDS: DEXTROSE 5% IN WATER 1,000 ML with SODIUM BICARB (1 MEQ/ML) 75 ML IV SCH (22:25)
[2022-03-01 22:26] LABS: Glucose,Whole Blood 218 mg/dL (70-110)
--- NOTE | 2022-03-01 22:49 | P.CONS ---
History of Present Illness - Reason for Consult Consult date: 03/01/22 Sepsis Requesting physician: Benjie Patricio - Chief Complaint Shortness of breath x few days - History of Present Illness Patient is a 87-year-old male with a past medical history significant for coronary artery disease atrial fibrillation diabetes hypertension subdural hematoma patient was brought into the ER from the halfway concerning for low blood pressure and the patient was noticed to be lethargic, patient on presentation to the hospital was afebrile and no fever has been recorded subsequently patient was mildly hypoxic requiring supplemental nasal cannula oxygen did have a normal white count patient did have a elevated BUN and creatinine liver enzymes are normal urine was positive patient did have a chest x-ray right lower lobe infiltrate concerning for pneumonia patient also have a CT of abdominal pelvis no evidence of retroperitoneal hematoma bibasilar pneumonia correlate for hemorrhagic material within the urinary bladder CT of the brain has been negative for any acute hemorrhage patient is currently being treated with Zosyn and vancomycin infectious disease was consulted concern for sepsis most information has been obtained from review of the chart and talking to nursing staff as the patient cannot provide any history patient is currently lethargic he is arousable to his name however did not answer any question no vomiting or diarrhea has been reported by the nursing staff Review of Systems Positive points has been mentioned in HPI complete review could not be obtained because of his underlying mental status Past Medical History Past Medical History: Atrial Fibrillation, Cancer, COPD, Diabetes Mellitus, Eye Disorder, Hearing Disorder / Deafness, Hypertension, Pneumonia, Prostate Disorder, Renal Disease Additional Past Medical History / Comment(s): Pt recently admitted to [facility] on 01/25/20 with a mechanical fall/hematoma R buttock and acute blood loss anemia. Other hx: 2010 Brain cancer with surgery and radiation, L nephrectomy d/t deteriorating kidney, CKD stage III, BPH, chronic thrombocytopenia, chronic anemia, diet controlled diabetes, generalized arthritis, L2 compression fracture, blind R eye, [place] blaterally, seasonal allergies. 05/14/21 admitted with abdominal hematoma History of Any Multi-Drug Resistant Organisms: None Reported Additional Past Surgical History / Comment(s): L nephrectomy, brain tumor removal, bilateral cataract removals, colonoscopy. Past Anesthesia/Blood Transfusion Reactions: No Reported Reaction Additional Past Anesthesia/Blood Transfusion Reaction / Comm: Pt has received blood in past without reaction. Past Psychological History: Depression Additional Psychological History / Comment(s): resides at [facility] He used to use a walker to ambulate. per er report patient has been weak and non ambulatory recently Smoking Status: Former smoker Past Alcohol Use History: None Reported Additional Past Alcohol Use History / Comment(s): Unknown when pt started smoking pipe but quit in 1977. Past Drug Use History: None Reported - Past Family History Father Family Medical History: No Reported History Additional Family Medical History / Comment(s): Father was healthy. He at the age of 62yrs in a MVA. Mother Additional Family Medical History / Comment(s): Mother at the age of 86yrs of "heart problems." Brother(s) Additional Family Medical History / Comment(s): Patient has 3 brothers and one is passed from old age. Patient has 4 sisters with no major medical problems. Patient had 2 children one from muscular dystrophy and one is alive with no major medical problems. Medications and Allergies Home Medications Medication Instructions Recorded Confirmed Type Sertraline [Zoloft] 50 mg PO HS@2100 01/25/20 02/28/22 History allopurinoL [Zyloprim] 100 mg PO DAILY@89901/25/20 02/28/22 History Pioglitazone [Actos] 15 mg PO DAILY@59905/13/21 02/28/22 History Acetaminophen [Tylenol] 650 mg PO Q4H PRN 12/11/21 02/28/22 History Ferrous Sulfate 330 mg PO DAILY@89902/28/22 02/28/22 History Magnesium Hydroxide [Milk of 2,400 mg PO ONCE PRN 02/28/22 02/28/22 History Magnesia] Multivitamins, Thera Liquid 5 ml PO DAILY@89902/28/22 02/28/22 History [Theragran Liquid (formulary)] Na Phos,M-B/Na Phos,Di-Ba [Fleet 118 ml RECTAL DAILY PRN 02/28/22 02/28/22 History Adult] Nitroglycerin Sl Tabs [Nitrostat] 0.4 mg SUBLINGUAL Q5M PRN 02/28/22 02/28/22 History Omeprazole 20 mg PO DAILY@59902/28/22 02/28/22 History bisacodyL [Dulcolax] 10 mg RECTAL DAILY PRN 02/28/22 02/28/22 History guaiFENesin [guaiFENesin Oral 100 mg PO Q6H PRN 02/28/22 02/28/22 History Solution] Amoxic-Pot Clav 500-125 mg 1 tab PO Q12HR #14 tab 03/14/22 Rx [Augmentin 500-125 mg] Darbepoetin Ten [Aranesp] 40 mcg SQ Q7D #4 each 03/14/22 Rx Metoprolol Tartrate [Lopressor] 12.5 mg PO BID tab 03/14/22 Rx Allergies Allergy/AdvReac Type Severity Reaction Status Date / Time No Known Allergies Allergy Verified 02/28/22 17:46 Physical Exam Vitals: Vital Signs Temp Pulse Pulse Resp BP BP Pulse Ox 03/01/22 10:00 85 19 97/73 94 L 03/01/22 09:30 78 19 106/60 92 L 03/01/22 09:00 80 22 97/72 91 L 03/01/22 08:30 80 21 102/58 92 L 03/01/22 08:04 91 L 03/01/22 08:00 97.4 F L 86 28 H 101/55 91 L 03/01/22 07:30 85 22 91/60 89 L 03/01/22 07:00 83 25 H 105/56 91 L 03/01/22 06:30 77 28 H 100/54 90 L 03/01/22 06:00 80 25 H 105/59 91 L 03/01/22 05:30 81 25 H 94/61 94 L 03/01/22 05:00 86 26 H 87/52 94 L 03/01/22 04:30 90 27 H 75/55 93 L 03/01/22 04:00 97.6 F 84 29 H 91/55 93 L 03/01/22 03:30 89 22 79/51 93 L 03/01/22 03:00 87 26 H 87/54 93 L 03/01/22 02:30 90 27 H 80/54 93 L 03/01/22 02:00 91 27 H 86/51 92 L 03/01/22 01:30 97 30 H 102/60 92 L 03/01/22 01:00 101 H 22 92/71 92 L 03/01/22 00:30 87 26 H 106/66 96 03/01/22 00:02 104 H 21 106/70 94 L 03/01/22 00:00 97.7 F 107 H 16 108/65 96 02/28/22 23:45 104 H 18 106/69 94 L 02/28/22 23:30 105 H 22 106/59 93 L 02/28/22 23:15 98 26 H 105/64 93 L 02/28/22 23:00 112 H 26 H 96/64 92 L 02/28/22 22:45 105 H 24 96/64 91 L 02/28/22 22:30 96 25 H 101/60 97 02/28/22 22:15 103 H 20 109/57 94 L 02/28/22 22:00 99 20 103/56 98 02/28/22 21:50 102 H 22 106/63 98 02/28/22 21:40 98.1 F 104 H 29 H 85/64 95 02/28/22 21:16 104 H 22 111/68 91 L 02/28/22 20:00 100 22 112/61 93 L 02/28/22 19:34 98.1 F 104 H 29 H 85/64 95 02/28/22 18:30 110 H 22 116/61 93 L 02/28/22 17:54 115 H 26 H 114/61 91 L 02/28/22 16:31 20 02/28/22 16:15 98.8 F 122 H 26 H 89/59 Intake and Output 02/28/22 03/01/22 03/01/22 22:59 06:59 14:59 Intake Total 1454.749 600 Output Total 450 330 195 Balance -450 1124.749 405 Intake: IV 1400 600 D5-0.45% NaCl with KCl 150 20Meq/l 1,000 ml @ 150 mls/hr IV .Q6H40M KEON Rx# :[id number] Dextrose 5% in Water 1, 450 600 000 ml @ 150 mls/hr IV . Q6H40M KEON Rx#:[id number] Sodium Chloride 0.9% 1, 800 000 ml @ 200 mls/hr IV . Q5H KEON Rx#:[id number] Intake, IV Titration 54.749 Amount Insulin Regular 100 unit 54.749 In Sodium Chloride 0.9% 100 ml @ 0.1 UNITS/KG/HR 8.474 mls/hr IV .[id number] KEON Rx#:[id number] Output: Urine 450 330 195 Uretheral (Ramirez) 350 Other: Voiding Method Indwelling Catheter Indwelling Catheter Weight 83.4 kg 84 kg 84 kg GENERAL DESCRIPTION: Elderly male lying in bed, no distress. No tachypnea or accessory muscle of respiration use. HEENT: Shows Pallor , no scleral icterus. Oral mucous membrane is dry. No pharyngeal erythema or thrush NECK: Trachea central, no thyromegaly. LUNGS: Unlabored breathing. Coarse breath sound bilaterally. No wheeze or crackle. HEART: S1, S2, regular rate and rhythm. No loud murmur ABDOMEN: Soft, no tenderness , guarding or rigidity, no organomegaly EXTREMITIES: No edema of feet. SKIN: No rash, no masses palpable. NEUROLOGICAL: The patient is sleepy lethargic orientation could not be de termined Results CBC & Chem 7: 03/12/22 06:32 03/14/22 07:03 Labs: Abnormal Lab Results - Last 24 Hours (Table) 02/28/22 02/28/22 02/28/22 Range/Units 16:28 16:28 16:28 WBC (3.8-10.6) k/uL RBC 3.46 L (4.30-5.90) m/uL Hgb 10.5 L (13.0-17.5) gm/dL Hct 36.1 L (39.0-53.0) % MCV 104.2 H (80.0-100.0) fL MCHC 29.1 L (31.0-37.0) g/dL Plt Count (150-450) k/uL Lymphocytes # 0.6 L (1.0-4.8) k/uL Lymphocytes # (Manual) (1.0-4.8) k/uL Metamyelocytes # (Man) (0) k/uL PT 12.7 H (9.0-12.0) sec INR 1.2 H (<1.2) ABG pCO2 (35-45) mmHg ABG HCO3 (21-25) mmol/L Sodium 160 H (137-145) mmol/L Chloride 125 H (98-107) mmol/L Carbon Dioxide 18 L (22-30) mmol/L BUN 176 H* (9-20) mg/dL Creatinine 4.97 H (0.66-1.25) mg/dL Glucose 515 H* (74-99) mg/dL POC Glucose (mg/dL) (70-110) mg/dL Hemoglobin A1c (0.0-6.0) % Plasma Lactic Acid Ralph (0.7-2.0) mmol/L Calcium (8.4-10.2) mg/dL Phosphorus (2.5-4.5) mg/dL Magnesium 3.1 H (1.6-2.3) mg/dL AST 13 L (17-59) U/L Total Protein 6.0 L (6.3-8.2) g/dL Albumin 2.8 L (3.5-5.0) g/dL Urine Protein (Negative) Urine Glucose (UA) (Negative) Urine Blood (Negative) Ur Leukocyte Esterase (Negative) Urine WBC (0-5) /hpf Urine Bacteria (None) /hpf Urine Mucus (None) /hpf 02/28/22 02/28/22 02/28/22 Range/Units 16:28 16:30 16:32 WBC (3.8-10.6) k/uL RBC (4.30-5.90) m/uL Hgb (13.0-17.5) gm/dL Hct (39.0-53.0) % MCV (80.0-100.0) fL MCHC (31.0-37.0) g/dL Plt Count (150-450) k/uL Lymphocytes # (1.0-4.8) k/uL Lymphocytes # (Manual) (1.0-4.8) k/uL Metamyelocytes # (Man) (0) k/uL PT (9.0-12.0) sec INR (<1.2) ABG pCO2 (35-45) mmHg ABG HCO3 (21-25) mmol/L Sodium (137-145) mmol/L Chloride (98-107) mmol/L Carbon Dioxide (22-30) mmol/L BUN (9-20) mg/dL Creatinine (0.66-1.25) mg/dL Glucose (74-99) mg/dL POC Glucose (mg/dL) 560 H 499 H (70-110) mg/dL Hemoglobin A1c (0.0-6.0) % Plasma Lactic Acid Ralph 3.2 H* (0.7-2.0) mmol/L Calcium (8.4-10.2) mg/dL Phosphorus (2.5-4.5) mg/dL Magnesium (1.6-2.3) mg/dL AST (17-59) U/L Total Protein (6.3-8.2) g/dL Albumin (3.5-5.0) g/dL Urine Protein (Negative) Urine Glucose (UA) (Negative) Urine Blood (Negative) Ur Leukocyte Esterase (Negative) Urine WBC (0-5) /hpf Urine Bacteria (None) /hpf Urine Mucus (None) /hpf 02/28/22 02/28/22 02/28/22 Range/Units 16:50 16:58 21:13 WBC (3.8-10.6) k/uL RBC (4.30-5.90) m/uL Hgb (13.0-17.5) gm/dL Hct (39.0-53.0) % MCV (80.0-100.0) fL MCHC (31.0-37.0) g/dL Plt Count (150-450) k/uL Lymphocytes # (1.0-4.8) k/uL Lymphocytes # (Manual) (1.0-4.8) k/uL Metamyelocytes # (Man) (0) k/uL PT (9.0-12.0) sec INR (<1.2) ABG pCO2 31 L (35-45) mmHg ABG HCO3 18 L (21-25) mmol/L Sodium (137-145) mmol/L Chloride (98-107) mmol/L Carbon Dioxide (22-30) mmol/L BUN (9-20) mg/dL Creatinine (0.66-1.25) mg/dL Glucose (74-99) mg/dL POC Glucose (mg/dL) 485 H (70-110) mg/dL Hemoglobin A1c (0.0-6.0) % Plasma Lactic Acid Ralph (0.7-2.0) mmol/L Calcium (8.4-10.2) mg/dL Phosphorus (2.5-4.5) mg/dL Magnesium (1.6-2.3) mg/dL AST (17-59) U/L Total Protein (6.3-8.2) g/dL Albumin (3.5-5.0) g/dL Urine Protein Trace H (Negative) Urine Glucose (UA) 3+ H (Negative) Urine Blood Small H (Negative) Ur Leukocyte Esterase Large H (Negative) Urine WBC 103 H (0-5) /hpf Urine Bacteria Occasional H (None) /hpf Urine Mucus Rare H (None) /hpf 02/28/22 02/28/22 02/28/22 Range/Units 21:32 22:53 22:53 WBC 3.3 L (3.8-10.6) k/uL RBC 3.03 L (4.30-5.90) m/uL Hgb 9.3 L (13.0-17.5) gm/dL Hct 32.0 L (39.0-53.0) % MCV 105.8 H (80.0-100.0) fL MCHC 29.1 L (31.0-37.0) g/dL Plt Count 104 L (150-450) k/uL Lymphocytes # (1.0-4.8) k/uL Lymphocytes # (Manual) 0.40 L (1.0-4.8) k/uL Metamyelocytes # (Man) 0.03 H (0) k/uL PT (9.0-12.0) sec INR (<1.2) ABG pCO2 (35-45) mmHg ABG HCO3 (21-25) mmol/L Sodium 160 H (137-145) mmol/L Chloride 131 H* (98-107) mmol/L Carbon Dioxide 16 L (22-30) mmol/L BUN 169 H* (9-20) mg/dL Creatinine 4.75 H (0.66-1.25) mg/dL Glucose 482 H (74-99) mg/dL POC Glucose (mg/dL) 522 H (70-110) mg/dL Hemoglobin A1c (0.0-6.0) % Plasma Lactic Acid Ralph (0.7-2.0) mmol/L Calcium (8.4-10.2) mg/dL Phosphorus (2.5-4.5) mg/dL Magnesium (1.6-2.3) mg/dL AST (17-59) U/L Total Protein (6.3-8.2) g/dL Albumin (3.5-5.0) g/dL Urine Protein (Negative) Urine Glucose (UA) (Negative) Urine Blood (Negative) Ur Leukocyte Esterase (Negative) Urine WBC (0-5) /hpf Urine Bacteria (None) /hpf Urine Mucus (None) /hpf 02/28/22 02/28/22 03/01/22 Range/Units 23:00 23:56 00:39 WBC (3.8-10.6) k/uL RBC (4.30-5.90) m/uL Hgb (13.0-17.5) gm/dL Hct (39.0-53.0) % MCV (80.0-100.0) fL MCHC (31.0-37.0) g/dL Plt Count (150-450) k/uL Lymphocytes # (1.0-4.8) k/uL Lymphocytes # (Manual) (1.0-4.8) k/uL Metamyelocytes # (Man) (0) k/uL PT (9.0-12.0) sec INR (<1.2) ABG pCO2 (35-45) mmHg ABG HCO3 (21-25) mmol/L Sodium 162 H* (137-145) mmol/L Chloride 132 H* (98-107) mmol/L Carbon Dioxide 16 L (22-30) mmol/L BUN 169 H* (9-20) mg/dL Creatinine 4.82 H (0.66-1.25) mg/dL Glucose 313 H (74-99) mg/dL POC Glucose (mg/dL) 508 H 386 H (70-110) mg/dL Hemoglobin A1c (0.0-6.0) % Plasma Lactic Acid Ralph (0.7-2.0) mmol/L Calcium (8.4-10.2) mg/dL Phosphorus 4.7 H (2.5-4.5) mg/dL Magnesium (1.6-2.3) mg/dL AST (17-59) U/L Total Protein (6.3-8.2) g/dL Albumin (3.5-5.0) g/dL Urine Protein (Negative) Urine Glucose (UA) (Negative) Urine Blood (Negative) Ur Leukocyte Esterase (Negative) Urine WBC (0-5) /hpf Urine Bacteria (None) /hpf Urine Mucus (None) /hpf 07/08/22 07/08/22 07/08/22 Range/Units 01:05 02:09 02:57 WBC (3.8-10.6) k/uL RBC (4.30-5.90) m/uL Hgb (13.0-17.5) gm/dL Hct (39.0-53.0) % MCV (80.0-100.0) fL MCHC (31.0-37.0) g/dL Plt Count (150-450) k/uL Lymphocytes # (1.0-4.8) k/uL Lymphocytes # (Manual) (1.0-4.8) k/uL Metamyelocytes # (Man) (0) k/uL PT (9.0-12.0) sec INR (<1.2) ABG pCO2 (35-45) mmHg ABG HCO3 (21-25) mmol/L Sodium (137-145) mmol/L Chloride (98-107) mmol/L Carbon Dioxide (22-30) mmol/L BUN (9-20) mg/dL Creatinine (0.66-1.25) mg/dL Glucose (74-99) mg/dL POC Glucose (mg/dL) 311 H 219 H 182 H (70-110) mg/dL Hemoglobin A1c (0.0-6.0) % Plasma Lactic Acid Ralph (0.7-2.0) mmol/L Calcium (8.4-10.2) mg/dL Phosphorus (2.5-4.5) mg/dL Magnesium (1.6-2.3) mg/dL AST (17-59) U/L Total Protein (6.3-8.2) g/dL Albumin (3.5-5.0) g/dL Urine Protein (Negative) Urine Glucose (UA) (Negative) Urine Blood (Negative) Ur Leukocyte Esterase (Negative) Urine WBC (0-5) /hpf Urine Bacteria (None) /hpf Urine Mucus (None) /hpf 03/01/22 03/01/22 03/01/22 Range/Units 04:10 05:00 05:29 WBC (3.8-10.6) k/uL RBC (4.30-5.90) m/uL Hgb (13.0-17.5) gm/dL Hct (39.0-53.0) % MCV (80.0-100.0) fL MCHC (31.0-37.0) g/dL Plt Count (150-450) k/uL Lymphocytes # (1.0-4.8) k/uL Lymphocytes # (Manual) (1.0-4.8) k/uL Metamyelocytes # (Man) (0) k/uL PT (9.0-12.0) sec INR (<1.2) ABG pCO2 (35-45) mmHg ABG HCO3 (21-25) mmol/L Sodium 161 H* (137-145) mmol/L Chloride 133 H* (98-107) mmol/L Carbon Dioxide 18 L (22-30) mmol/L BUN 162 H* (9-20) mg/dL Creatinine 4.30 H (0.66-1.25) mg/dL Glucose (74-99) mg/dL POC Glucose (mg/dL) 131 H 112 H (70-110) mg/dL Hemoglobin A1c (0.0-6.0) % Plasma Lactic Acid Ralph (0.7-2.0) mmol/L Calcium 7.7 L (8.4-10.2) mg/dL Phosphorus (2.5-4.5) mg/dL Magnesium (1.6-2.3) mg/dL AST (17-59) U/L Total Protein (6.3-8.2) g/dL Albumin (3.5-5.0) g/dL Urine Protein (Negative) Urine Glucose (UA) (Negative) Urine Blood (Negative) Ur Leukocyte Esterase (Negative) Urine WBC (0-5) /hpf Urine Bacteria (None) /hpf Urine Mucus (None) /hpf 03/01/22 03/01/22 03/01/22 Range/Units 05:29 05:29 07:59 WBC 3.7 L (3.8-10.6) k/uL RBC 2.66 L (4.30-5.90) m/uL Hgb 8.1 L (13.0-17.5) gm/dL Hct 27.2 L (39.0-53.0) % MCV 102.1 H (80.0-100.0) fL MCHC 29.9 L (31.0-37.0) g/dL Plt Count 100 L (150-450) k/uL Lymphocytes # (1.0-4.8) k/uL Lymphocytes # (Manual) 0.85 L (1.0-4.8) k/uL Metamyelocytes # (Man) (0) k/uL PT (9.0-12.0) sec INR (<1.2) ABG pCO2 (35-45) mmHg ABG HCO3 (21-25) mmol/L Sodium (137-145) mmol/L Chloride (98-107) mmol/L Carbon Dioxide (22-30) mmol/L BUN (9-20) mg/dL Creatinine (0.66-1.25) mg/dL Glucose (74-99) mg/dL POC Glucose (mg/dL) 168 H (70-110) mg/dL Hemoglobin A1c 9.2 H (0.0-6.0) % Plasma Lactic Acid Ralph (0.7-2.0) mmol/L Calcium (8.4-10.2) mg/dL Phosphorus (2.5-4.5) mg/dL Magnesium (1.6-2.3) mg/dL AST (17-59) U/L Total Protein (6.3-8.2) g/dL Albumin (3.5-5.0) g/dL Urine Protein (Negative) Urine Glucose (UA) (Negative) Urine Blood (Negative) Ur Leukocyte Esterase (Negative) Urine WBC (0-5) /hpf Urine Bacteria (None) /hpf Urine Mucus (None) /hpf 03/01/22 03/01/22 Range/Units 09:31 10:28 WBC (3.8-10.6) k/uL RBC (4.30-5.90) m/uL Hgb (13.0-17.5) gm/dL Hct (39.0-53.0) % MCV (80.0-100.0) fL MCHC (31.0-37.0) g/dL Plt Count (150-450) k/uL Lymphocytes # (1.0-4.8) k/uL Lymphocytes # (Manual) (1.0-4.8) k/uL Metamyelocytes # (Man) (0) k/uL PT (9.0-12.0) sec INR (<1.2) ABG pCO2 (35-45) mmHg ABG HCO3 (21-25) mmol/L Sodium (137-145) mmol/L Chloride (98-107) mmol/L Carbon Dioxide (22-30) mmol/L BUN (9-20) mg/dL Creatinine (0.66-1.25) mg/dL Glucose (74-99) mg/dL POC Glucose (mg/dL) 221 H 233 H (70-110) mg/dL Hemoglobin A1c (0.0-6.0) % Plasma Lactic Acid Ralph (0.7-2.0) mmol/L Calcium (8.4-10.2) mg/dL Phosphorus (2.5-4.5) mg/dL Magnesium (1.6-2.3) mg/dL AST (17-59) U/L Total Protein (6.3-8.2) g/dL Albumin (3.5-5.0) g/dL Urine Protein (Negative) Urine Glucose (UA) (Negative) Urine Blood (Negative) Ur Leukocyte Esterase (Negative) Urine WBC (0-5) /hpf Urine Bacteria (None) /hpf Urine Mucus (None) /hpf Microbiology - Last 24 Hours (Table) 02/28/22 16:50 Urine Culture - Preliminary Urine,Voided Assessment and Plan (1) Pneumonia Status: Acute Code(s): J18.9 - PNEUMONIA, UNSPECIFIED ORGANISM SNOMED Code(s ): 179049535 (2) Sepsis Status: Acute Code(s): A41.9 - SEPSIS, UNSPECIFIED ORGANISM SNOMED Code(s): 49521440 Plan: 1patient presented to hospital with weakness lethargy head this patient did have evidence of UTI and possible right-sided pneumonia in this patient being a halfway resident will need to cover for resistant gram-negative with a likely pathogen. 2patient with renal insufficiency high risk of nephrotoxicity from vancomycin. 3we will try to obtain a sputum for gram stain culture and check a procalcitonin level. 4continue with Zosyn however no need for vancomycin. We will follow on clinical condition and cultures to further adjust medication if needed Thank you for this consultation will follow this patient along with you Time with Patient: Greater than 30
[2022-03-01 23:21] LABS: Glucose,Whole Blood 223 mg/dL (70-110)
[2022-03-02 00:33] LABS: Glucose,Whole Blood 217 mg/dL (70-110)
[2022-03-02 01:49] LABS: Glucose,Whole Blood 259 mg/dL (70-110)
[2022-03-02 02:24] LABS: Glucose,Whole Blood 214 mg/dL (70-110)
[2022-03-02 03:21] LABS: Glucose,Whole Blood 183 mg/dL (70-110)
[2022-03-02 04:22] LABS: Glucose,Whole Blood 156 mg/dL (70-110)
[2022-03-02 05:30] LABS: Glucose,Whole Blood 147 mg/dL (70-110)
[2022-03-02 05:30] LABS: Glucose,Whole Blood 173 mg/dL (70-110)
[2022-03-02] MEDS: PIPERACILLIN-TAZOBACTAM 3.375 GM in SODIUM CHLORIDE 0.9% 100 ML IVPB SCH ×2 (05:38→19:05)
[2022-03-02 06:38] LABS: Glucose,Whole Blood 117 mg/dL (70-110)
[2022-03-02] MEDS: METOPROLOL TARTRATE 5 MG/5 ML VIAL IVP SCH ×3 (06:39→19:01)
[2022-03-02 07:06] LABS: Glucose,Whole Blood 134 mg/dL (70-110)
[2022-03-02 07:27] LABS: Magnesium 2.7 mg/dL (1.6-2.3); Phosphorus 4.6 mg/dL (2.5-4.5)
[2022-03-02 07:57] LABS: Glucose,Whole Blood 106 mg/dL (70-110)
[2022-03-02 08:02] LABS: Calcium 7.6 mg/dL (8.4-10.2); Potassium 4.4 mmol/L (3.5-5.1); Total Bilirubin 0.3 mg/dL (0.2-1.3); Total Protein 4.6 g/dL (6.3-8.2)
[2022-03-02] MEDS: PANTOPRAZOLE 40 MG/10 ML VIAL IVP SCH (08:23)
[2022-03-02] MEDS ORDERED: SODIUM BICARB 8.4% 50 ML SYR (1 MEQ/ML) IV STA (08:45)
[2022-03-02 08:46] LABS: Vancomycin,Random 8.7 ug/mL
--- NOTE | 2022-03-02 08:50 | P.PN ---
Subjective Patient is seen in follow-up for acute kidney injury and electrolyte imbalance. Sodium level stable at 153. Creatinine 3.72. Nonoliguric. Oral intake is poor. Vital signs are stable. General: Awake. No acute distress. HEENT: Head exam is unremarkable. LUNGS: Breath sounds decreased. HEART: Rate and Rhythm are regular. ABDOMEN: Soft, no distention. EXTREMITITES: No edema. Objective - Vital Signs Vital signs: Vital Signs Temp 97.2 F L 03/02/22 00:00 Pulse 80 03/02/22 07:00 Resp 8 L 03/02/22 07:00 BP 91/55 03/02/22 07:00 Pulse Ox 96 03/02/22 07:38 FiO2 Intake & Output 03/01/22 03/02/22 03/02/22 18:59 06:59 18:59 Intake Total 2672.507 1228.386 100.765 Output Total 650 795 100 Balance 2022.507 433.386 0.765 Weight 84 kg 89.5 kg Intake: IV 1500 400 Dextrose 5% in Water 1, 1500 400 000 ml @ 100 mls/hr IV . Q10H KEON Rx#:[id number] Intake, IV Titration 1172.507 828.386 100.765 Amount Dextrose 5% in Water 1, 800 100 000 ml @ 100 mls/hr IV . [id number] KEON with Sodium Bicarb (1 Meq/ml) 75 ml Rx#:[id number] Dextrose 5% in Water 1, 1000 000 ml @ 999 mls/hr IV . Q1H1M ONE Rx#:[id number] Insulin Regular 100 unit 72.507 28.386 0.765 In Sodium Chloride 0.9% 100 ml @ Per Protocol IV .Q0M KEON Rx#:[id number] Piperacillin-Tazobactam 3 100 .375 gm In Sodium Chloride 0.9% 100 ml @ 25 mls/hr IVPB Q8HR KEON Rx# :[id number] Output: Urine 650 795 100 Other: Voiding Method Indwelling Catheter Indwelling Catheter - Labs CBC & Chem 7: 03/01/22 05:29 03/02/22 06:53 Labs: Abnormal Lab Results - Last 24 Hours (Table) 03/01/22 03/01/22 03/01/22 Range/Units 05:29 05:29 09:31 Lymphocytes # (Manual) 0.85 L (1.0-4.8) k/uL Sodium (137-145) mmol/L Chloride (98-107) mmol/L Carbon Dioxide (22-30) mmol/L BUN (9-20) mg/dL Creatinine (0.66-1.25) mg/dL Glucose (74-99) mg/dL POC Glucose (mg/dL) 221 H (70-110) mg/dL Hemoglobin A1c 9.2 H (0.0-6.0) % Calcium (8.4-10.2) mg/dL Phosphorus (2.5-4.5) mg/dL Magnesium (1.6-2.3) mg/dL Iron (65-175) ug/dL TIBC (228-460) ug/dL Transferrin (204.0-354.0) mg/dL Ferritin (22.0-322.0) ng/mL AST (17-59) U/L Total Protein (6.3-8.2) g/dL Albumin (3.5-5.0) g/dL 03/01/22 03/01/22 03/01/22 Range/Units 10:28 11:45 12:48 Lymphocytes # (Manual) (1.0-4.8) k/uL Sodium (137-145) mmol/L Chloride (98-107) mmol/L Carbon Dioxide (22-30) mmol/L BUN (9-20) mg/dL Creatinine (0.66-1.25) mg/dL Glucose (74-99) mg/dL POC Glucose (mg/dL) 233 H 331 H 389 H (70-110) mg/dL Hemoglobin A1c (0.0-6.0) % Calcium (8.4-10.2) mg/dL Phosphorus (2.5-4.5) mg/dL Magnesium (1.6-2.3) mg/dL Iron (65-175) ug/dL TIBC (228-460) ug/dL Transferrin (204.0-354.0) mg/dL Ferritin (22.0-322.0) ng/mL AST (17-59) U/L Total Protein (6.3-8.2) g/dL Albumin (3.5-5.0) g/dL 07/04/1503/01/22 03/01/22 Range/Units 13:09 13:09 14:01 Lymphocytes # (Manual) (1.0-4.8) k/uL Sodium 154 H (137-145) mmol/L Chloride 128 H (98-107) mmol/L Carbon Dioxide 13 L (22-30) mmol/L BUN 157 H* (9-20) mg/dL Creatinine 4.03 H (0.66-1.25) mg/dL Glucose 362 H (74-99) mg/dL POC Glucose (mg/dL) 382 H (70-110) mg/dL Hemoglobin A1c (0.0-6.0) % Calcium 7.4 L (8.4-10.2) mg/dL Phosphorus (2.5-4.5) mg/dL Magnesium (1.6-2.3) mg/dL Iron 38 L (65-175) ug/dL TIBC 102 L (228-460) ug/dL Transferrin 72.8 L (204.0-354.0) mg/dL Ferritin 2384.0 H (22.0-322.0) ng/mL AST (17-59) U/L Total Protein (6.3-8.2) g/dL Albumin (3.5-5.0) g/dL 03/01/22 03/01/22 03/01/22 Range/Units 14:55 16:11 17:14 Lymphocytes # (Manual) (1.0-4.8) k/uL Sodium (137-145) mmol/L Chloride (98-107) mmol/L Carbon Dioxide (22-30) mmol/L BUN (9-20) mg/dL Creatinine (0.66-1.25) mg/dL Glucose (74-99) mg/dL POC Glucose (mg/dL) 399 H 247 H 187 H (70-110) mg/dL Hemoglobin A1c (0.0-6.0) % Calcium (8.4-10.2) mg/dL Phosphorus (2.5-4.5) mg/dL Magnesium (1.6-2.3) mg/dL Iron (65-175) ug/dL TIBC (228-460) ug/dL Transferrin (204.0-354.0) mg/dL Ferritin (22.0-322.0) ng/mL AST (17-59) U/L Total Protein (6.3-8.2) g/dL Albumin (3.5-5.0) g/dL 03/01/22 03/01/22 03/01/22 Range/Units 18:13 18:58 20:04 Lymphocytes # (Manual) (1.0-4.8) k/uL Sodium 152 H (137-145) mmol/L Chloride 126 H (98-107) mmol/L Carbon Dioxide 16 L (22-30) mmol/L BUN 157 H* (9-20) mg/dL Creatinine 3.92 H (0.66-1.25) mg/dL Glucose 146 H (74-99) mg/dL POC Glucose (mg/dL) 130 H 118 H (70-110) mg/dL Hemoglobin A1c (0.0-6.0) % Calcium 7.5 L (8.4-10.2) mg/dL Phosphorus (2.5-4.5) mg/dL Magnesium (1.6-2.3) mg/dL Iron (65-175) ug/dL TIBC (228-460) ug/dL Transferrin (204.0-354.0) mg/dL Ferritin (22.0-322.0) ng/mL AST (17-59) U/L Total Protein (6.3-8.2) g/dL Albumin (3.5-5.0) g/dL 03/01/22 03/01/22 03/01/22 Range/Units 20:10 21:35 22:23 Lymphocytes # (Manual) (1.0-4.8) k/uL Sodium (137-145) mmol/L Chloride (98-107) mmol/L Carbon Dioxide (22-30) mmol/L BUN (9-20) mg/dL Creatinine (0.66-1.25) mg/dL Glucose (74-99) mg/dL POC Glucose (mg/dL) 150 H 179 H 218 H (70-110) mg/dL Hemoglobin A1c (0.0-6.0) % Calcium (8.4-10.2) mg/dL Phosphorus (2.5-4.5) mg/dL Magnesium (1.6-2.3) mg/dL Iron (65-175) ug/dL TIBC (228-460) ug/dL Transferrin (204.0-354.0) mg/dL Ferritin (22.0-322.0) ng/mL AST (17-59) U/L Total Protein (6.3-8.2) g/dL Albumin (3.5-5.0) g/dL 03/01/22 03/02/22 03/02/22 Range/Units 23:19 00:31 01:34 Lymphocytes # (Manual) (1.0-4.8) k/uL Sodium (137-145) mmol/L Chloride (98-107) mmol/L Carbon Dioxide (22-30) mmol/L BUN (9-20) mg/dL Creatinine (0.66-1.25) mg/dL Glucose (74-99) mg/dL POC Glucose (mg/dL) 223 H 217 H 259 H (70-110) mg/dL Hemoglobin A1c (0.0-6.0) % Calcium (8.4-10.2) mg/dL Phosphorus (2.5-4.5) mg/dL Magnesium (1.6-2.3) mg/dL Iron (65-175) ug/dL TIBC (228-460) ug/dL Transferrin (204.0-354.0) mg/dL Ferritin (22.0-322.0) ng/mL AST (17-59) U/L Total Protein (6.3-8.2) g/dL Albumin (3.5-5.0) g/dL 03/02/22 03/02/22 03/02/22 Range/Units 02:21 03:19 04:20 Lymphocytes # (Manual) (1.0-4.8) k/uL Sodium (137-145) mmol/L Chloride (98-107) mmol/L Carbon Dioxide (22-30) mmol/L BUN (9-20) mg/dL Creatinine (0.66-1.25) mg/dL Glucose (74-99) mg/dL POC Glucose (mg/dL) 214 H 183 H 156 H (70-110) mg/dL Hemoglobin A1c (0.0-6.0) % Calcium (8.4-10.2) mg/dL Phosphorus (2.5-4.5) mg/dL Magnesium (1.6-2.3) mg/dL Iron (65-175) ug/dL TIBC (228-460) ug/dL Transferrin (204.0-354.0) mg/dL Ferritin (22.0-322.0) ng/mL AST (17-59) U/L Total Protein (6.3-8.2) g/dL Albumin (3.5-5.0) g/dL 03/02/22 03/02/22 03/02/22 Range/Units 05:28 05:29 06:37 Lymphocytes # (Manual) (1.0-4.8) k/uL Sodium (137-145) mmol/L Chloride (98-107) mmol/L Carbon Dioxide (22-30) mmol/L BUN (9-20) mg/dL Creatinine (0.66-1.25) mg/dL Glucose (74-99) mg/dL POC Glucose (mg/dL) 173 H 147 H 117 H (70-110) mg/dL Hemoglobin A1c (0.0-6.0) % Calcium (8.4-10.2) mg/dL Phosphorus (2.5-4.5) mg/dL Magnesium (1.6-2.3) mg/dL Iron (65-175) ug/dL TIBC (228-460) ug/dL Transferrin (204.0-354.0) mg/dL Ferritin (22.0-322.0) ng/mL AST (17-59) U/L Total Protein (6.3-8.2) g/dL Albumin (3.5-5.0) g/dL 03/02/22 03/02/22 03/02/22 Range/Units 06:53 06:53 07:04 Lymphocytes # (Manual) (1.0-4.8) k/uL Sodium 153 H (137-145) mmol/L Chloride 127 H (98-107) mmol/L Carbon Dioxide 16 L (22-30) mmol/L BUN 149 H* (9-20) mg/dL Creatinine 3.72 H (0.66-1.25) mg/dL Glucose 127 H (74-99) mg/dL POC Glucose (mg/dL) 134 H (70-110) mg/dL Hemoglobin A1c (0.0-6.0) % Calcium 7.6 L (8.4-10.2) mg/dL Phosphorus 4.6 H (2.5-4.5) mg/dL Magnesium 2.7 H (1.6-2.3) mg/dL Iron (65-175) ug/dL TIBC (228-460) ug/dL Transferrin (204.0-354.0) mg/dL Ferritin (22.0-322.0) ng/mL AST 14 L (17-59) U/L Total Protein 4.6 L (6.3-8.2) g/dL Albumin 2.0 L (3.5-5.0) g/dL Microbiology - Last 24 Hours (Table) 02/28/22 16:50 Urine Culture - Preliminary Urine,Voided Group D Enterococcus 02/28/22 16:35 Blood Culture - Preliminary Blood No Growth after 24 hours Assessment and Plan Plan: Assessment: 1. Acute kidney injury mostly prerenal secondary to hypovolemia and infection. Creatinine was 4.9 on admission and is 3.72 today. No hydronephrosis noted on CAT scan. 2. Chronic kidney disease stage IIIa secondary to solitary right kidney. 3. Status post left nephrectomy. 4. Hypernatremia from lack of oral water intake. 5. DKA s/p insulin drip. 6. Metabolic acidosis secondary to acute kidney injury and DKA. 7. History of dementia. 8. Anemia. Iron replete. 9. UTI and possible pneumonia on antibiotics. Urine culture positive for group D enterococcus. Infectious disease following. Plan: Currently on D5 with 75 mEq of bicarbonate - increase rate to 150 mL an hour. 2 A of sodium bicarbonate IV push now. Repeat BMP at 5 PM. Encouraged oral intake Continue to monitor renal function and urine output
[2022-03-02] MEDS: DEXTROSE 5% IN WATER 1,000 ML with SODIUM BICARB (1 MEQ/ML) 75 ML IV SCH ×2 (09:55→19:07)
--- NOTE | 2022-03-02 10:18 | XR ---
EXAMINATION TYPE: XR chest 1V portable DATE OF EXAM: 03/02/2022 CLINICAL HISTORY: NG tube placement. TECHNIQUE: Single AP portable upright view of the chest is obtained. COMPARISON: Chest x-ray from 2 days earlier FINDINGS: New nasogastric tube projects below diaphragm. Chronic parenchymal changes with bibasilar opacities is redemonstrated. Stable mild cardiomegaly with ectatic and atherosclerotic thoracic aorta.. Multilevel spurring in thoracic spine redemonstrated IMPRESSION: Chronic changes and mild cardiomegaly with patchy bibasilar acute atelectasis and/or infi ltrates redemonstrated. No significant change from prior. Satisfactory positioning of new nasogastric tube noted.
--- NOTE | 2022-03-02 11:13 | P.PN ---
Subjective Progress Note Date: 03/02/22 Principal diagnosis: Acute DKA, sepsis, aspiration pneumonia, acute UTI This is an 87-year-old white male with history of multiple comorbidities, patient was brought yesterday by EMS from the nursing facility with mostly complaints of low blood pressure and the patient has been noted to be lethargic. Patient had previous history of documented coronary artery disease, history of intracranial hemorrhage/subdural hematoma, chronic atrial fibrillation, hypertension, diabetes. Patient is not a great historian, apparently when he arrived to the ER, patient was found to have multiple abnormal labs including blood sugar over 500 anion gap metabolic acidosis hypernatremia with sodium of 160 acute kidney injury with BUN of 169 and creatinine 4.75, abnormal urinalysis, and abnormal chest x-ray suggestive of right lower lobe pneumonia questionable aspiration pneumonia considering the patient's overall mental status patient was obviously septic, and dehydrated upon his initial presentation. He received fluid boluses, blood pressure responded to fluid boluses but the patient did not require to be placed on pressors. Patient was placed empirically on antibiotics for presumptive pneumonia and possible urinary tract infection he was placed on the DKA protocol, and when the ER physician discussed the case with me I recommended definite admission to the ICU. Saw the patient this morning, remains on insulin drip at 1 unit per hour. His IV fluid was transitioned from 0.9 normal saline to D5W at 200 mL per hour. Patient is making urine around 50 mL per hour. More fluid boluses were given this morning. And we are closely monitoring his electrolytes and renal profile sodium remains relatively elevated at 160. However his anion gap corrected nicely and his anion gap this morning is 10. Bicarb is 18. Renal profile showed slight improvement since yesterday on admission ABG on admission showed a pO2 of 88 pCO2 31 pH of 7.37 and this was on the percent FiO2 in the ER. Presently the patient is on nasal cannula at 4 L/m and O2 saturations 93% cultures are pending patient remains on Zosyn and I discontinued his cefepime and vancomycin. Reevaluated today on 03/02/2022, patient remains in the ICU, she is on 2 L nasal cannula, O2 sats is 96%. Patient continues to be relatively lethargic, continues to have significant non-anion gap metabolic acidosis, placed on bicarb drip at 150 mL per hour. Continues to have hypernatremia however the sodium is improving and today I recommended free water flushes through a nasogastric tube to be placed mode every 4 nutritional support and also for free water flushes. Patient remains to have significant free water deficit with relatively high sodium. Mentation remains poor, patient is lethargic, arousable, unable to swallow on his own. Hence I feel it would be best to start enteral feeding via nasogastric tube today. He has a very poor appetite, and does not seem to swallow well. Remains in atrial fibrillation with controlled rate. Denies any shortness of breath cough wheezing denies any nausea vomiting or abdominal pain. Sodium today is 153 bicarb is 16 anion gap is 10 and BUN is 149 and creatinine 3.72. Objective - Vital Signs Vital signs: Vital Signs Temp 97.5 F L 03/02/22 08:00 Pulse 76 03/02/22 11:00 Resp 20 03/02/22 11:00 BP 96/58 03/02/22 11:00 Pulse Ox 97 03/02/22 11:00 FiO2 Intake & Output 03/01/22 03/02/22 03/02/22 18:59 06:59 18:59 Intake Total 2672.507 1228.386 450.765 Output Total 650 795 310 Balance 2022.507 433.386 140.765 Weight 84 kg 89.5 kg Intake: IV 1500 400 350 Dextrose 5% in Water 1, 1500 400 350 000 ml @ 100 mls/hr IV . Q10H KEON Rx#:[id number] Intake, IV Titration 1172.507 828.386 100.765 Amount Dextrose 5% in Water 1, 800 100 000 ml @ 150 mls/hr IV . Q7H10M KEON with Sodium Bicarb (1 Meq/ml) 75 ml Rx#:[id number] Dextrose 5% in Water 1, 1000 000 ml @ 999 mls/hr IV . Q1H1M ONE Rx#:[id number] Insulin Regular 100 unit 72.507 28.386 0.765 In Sodium Chloride 0.9% 100 ml @ Per Protocol IV .Q0M KEON Rx#:[id number] Piperacillin-Tazobactam 3 100 .375 gm In Sodium Chloride 0.9% 100 ml @ 25 mls/hr IVPB Q8HR KEON Rx# :[id number] Output: Urine 650 795 310 Other: Voiding Method Indwelling Catheter Indwelling Catheter Indwelling Catheter - Exam General Impression: Revealed a 87-year-old white male confused, in no distress. HEENT: Normocephalic atraumatic, PERRLA, EOMI, extremely dry mucous membranes noted Cardiovascular: Irregular irregular rhythm, no S3 gallop. 2/6 systolic murmur thought the precordium Chest: Diminished breath sounds and crackles at the bases no rhonchi no wheezes Abdomen: Soft nontender no megaly no rebound no guarding. Musculoskeletal: No limitation in range of motion, no deformities. Motor: no focal deficits noted Neurological: Patient is confused, does not follow instructions, seems to have depressed mood and blunted affect, and poor mental status Skin: No rashes. : Indwelling Ramirez catheter - Labs CBC & Chem 7: 03/01/22 05:29 03/02/22 06:53 Labs: Abnormal Lab Results - Last 24 Hours (Table) 03/01/22 03/01/22 03/01/22 Range/Units 11:45 12:48 13:09 Sodium 154 H (137-145) mmol/L Chloride 128 H (98-107) mmol/L Carbon Dioxide 13 L (22-30) mmol/L BUN 157 H* (9-20) mg/dL Creatinine 4.03 H (0.66-1.25) mg/dL Glucose 362 H (74-99) mg/dL POC Glucose (mg/dL) 331 H 389 H (70-110) mg/dL Calcium 7.4 L (8.4-10.2) mg/dL Phosphorus (2.5-4.5) mg/dL Magnesium (1.6-2.3) mg/dL Iron (65-175) ug/dL TIBC (228-460) ug/dL Transferrin (204.0-354.0) mg/dL Ferritin (22.0-322.0) ng/mL AST (17-59) U/L Total Protein (6.3-8.2) g/dL Albumin (3.5-5.0) g/dL 03/01/22 03/01/22 03/01/22 Range/Units 13:09 14:01 14:55 Sodium (137-145) mmol/L Chloride (98-107) mmol/L Carbon Dioxide (22-30) mmol/L BUN (9-20) mg/dL Creatinine (0.66-1.25) mg/dL Glucose (74-99) mg/dL POC Glucose (mg/dL) 382 H 399 H (70-110) mg/dL Calcium (8.4-10.2) mg/dL Phosphorus (2.5-4.5) mg/dL Magnesium (1.6-2.3) mg/dL Iron 38 L (65-175) ug/dL TIBC 102 L (228-460) ug/dL Transferrin 72.8 L (204.0-354.0) mg/dL Ferritin 2384.0 H (22.0-322.0) ng/mL AST (17-59) U/L Total Protein (6.3-8.2) g/dL Albumin (3.5-5.0) g/dL 03/01/22 03/01/22 03/01/22 Range/Units 16:11 17:14 18:13 Sodium (137-145) mmol/L Chloride (98-107) mmol/L Carbon Dioxide (22-30) mmol/L BUN (9-20) mg/dL Creatinine (0.66-1.25) mg/dL Glucose (74-99) mg/dL POC Glucose (mg/dL) 247 H 187 H 130 H (70-110) mg/dL Calcium (8.4-10.2) mg/dL Phosphorus (2.5-4.5) mg/dL Magnesium (1.6-2.3) mg/dL Iron (65-175) ug/dL TIBC (228-460) ug/dL Transferrin (204.0-354.0) mg/dL Ferritin (22.0-322.0) ng/mL AST (17-59) U/L Total Protein (6.3-8.2) g/dL Albumin (3.5-5.0) g/dL 03/01/22 03/01/22 03/01/22 Range/Units 18:58 20:04 20:10 Sodium 152 H (137-145) mmol/L Chloride 126 H (98-107) mmol/L Carbon Dioxide 16 L (22-30) mmol/L BUN 157 H* (9-20) mg/dL Creatinine 3.92 H (0.66-1.25) mg/dL Glucose 146 H (74-99) mg/dL POC Glucose (mg/dL) 118 H 150 H (70-110) mg/dL Calcium 7.5 L (8.4-10.2) mg/dL Phosphorus (2.5-4.5) mg/dL Magnesium (1.6-2.3) mg/dL Iron (65-175) ug/dL TIBC (228-460) ug/dL Transferrin (204.0-354.0) mg/dL Ferritin (22.0-322.0) ng/mL AST (17-59) U/L Total Protein (6.3-8.2) g/dL Albumin (3.5-5.0) g/dL 03/01/22 03/01/22 03/01/22 Range/Units 21:35 22:23 23:19 Sodium (137-145) mmol/L Chloride (98-107) mmol/L Carbon Dioxide (22-30) mmol/L BUN (9-20) mg/dL Creatinine (0.66-1.25) mg/dL Glucose (74-99) mg/dL POC Glucose (mg/dL) 179 H 218 H 223 H (70-110) mg/dL Calcium (8.4-10.2) mg/dL Phosphorus (2.5-4.5) mg/dL Magnesium (1.6-2.3) mg/dL Iron (65-175) ug/dL TIBC (228-460) ug/dL Transferrin (204.0-354.0) mg/dL Ferritin (22.0-322.0) ng/mL AST (17-59) U/L Total Protein (6.3-8.2) g/dL Albumin (3.5-5.0) g/dL 03/02/22 03/02/22 03/02/22 Range/Units 00:31 01:34 02:21 Sodium (137-145) mmol/L Chloride (98-107) mmol/L Carbon Dioxide (22-30) mmol/L BUN (9-20) mg/dL Creatinine (0.66-1.25) mg/dL Glucose (74-99) mg/dL POC Glucose (mg/dL) 217 H 259 H 214 H (70-110) mg/dL Calcium (8.4-10.2) mg/dL Phosphorus (2.5-4.5) mg/dL Magnesium (1.6-2.3) mg/dL Iron (65-175) ug/dL TIBC (228-460) ug/dL Transferrin (204.0-354.0) mg/dL Ferritin (22.0-322.0) ng/mL AST (17-59) U/L Total Protein (6.3-8.2) g/dL Albumin (3.5-5.0) g/dL 03/02/22 03/02/22 03/02/22 Range/Units 03:19 04:20 05:28 Sodium (137-145) mmol/L Chloride (98-107) mmol/L Carbon Dioxide (22-30) mmol/L BUN (9-20) mg/dL Creatinine (0.66-1.25) mg/dL Glucose (74-99) mg/dL POC Glucose (mg/dL) 183 H 156 H 173 H (70-110) mg/dL Calcium (8.4-10.2) mg/dL Phosphorus (2.5-4.5) mg/dL Magnesium (1.6-2.3) mg/dL Iron (65-175) ug/dL TIBC (228-460) ug/dL Transferrin (204.0-354.0) mg/dL Ferritin (22.0-322.0) ng/mL AST (17-59) U/L Total Protein (6.3-8.2) g/dL Albumin (3.5-5.0) g/dL 03/02/22 03/02/22 03/02/22 Range/Units 05:29 06:37 06:53 Sodium (137-145) mmol/L Chloride (98-107) mmol/L Carbon Dioxide (22-30) mmol/L BUN (9-20) mg/dL Creatinine (0.66-1.25) mg/dL Glucose (74-99) mg/dL POC Glucose (mg/dL) 147 H 117 H (70-110) mg/dL Calcium (8.4-10.2) mg/dL Phosphorus 4.6 H (2.5-4.5) mg/dL Magnesium 2.7 H (1.6-2.3) mg/dL Iron (65-175) ug/dL TIBC (228-460) ug/dL Transferrin (204.0-354.0) mg/dL Ferritin (22.0-322.0) ng/mL AST (17-59) U/L Total Protein (6.3-8.2) g/dL Albumin (3.5-5.0) g/dL 03/02/22 03/02/22 Range/Units 06:53 07:04 Sodium 153 H (137-145) mmol/L Chloride 127 H (98-107) mmol/L Carbon Dioxide 16 L (22-30) mmol/L BUN 149 H* (9-20) mg/dL Creatinine 3.72 H (0.66-1.25) mg/dL Glucose 127 H (74-99) mg/dL POC Glucose (mg/dL) 134 H (70-110) mg/dL Calcium 7.6 L (8.4-10.2) mg/dL Phosphorus (2.5-4.5) mg/dL Magnesium (1.6-2.3) mg/dL Iron (65-175) ug/dL TIBC (228-460) ug/dL Transferrin (204.0-354.0) mg/dL Ferritin (22.0-322.0) ng/mL AST 14 L (17-59) U/L Total Protein 4.6 L (6.3-8.2) g/dL Albumin 2.0 L (3.5-5.0) g/dL Microbiology - Last 24 Hours (Table) 02/28/22 16:50 Urine Culture - Preliminary Urine,Voided Group D Enterococcus 02/28/22 16:35 Blood Culture - Preliminary Blood No Growth after 24 hours Assessment and Plan Assessment: Impression: Acute diabetic ketoacidosis Acute sepsis, likely sources are aspiration pneumonia, and or urinary tract infection. Urine is positive for group D enterococcus sensitivity is pending, may consider Unasyn instead of Zosyn Acute on chronic kidney disease patient had history of chronic kidney disease stage IIIa and he had a solitary right Free water deficit with hypernatremia Profound dehydration, secondary to above History of Alzheimer's dementia Persistent non-anion gap metabolic acidosis, back on bicarb drip. Chronic anemia possibly iron deficiency anemia Acute aspiration pneumonia is strongly suspected Chronic urinary tract infection, group D enterococcus, being followed by infectious disease on the case. Recommendation: Continue to monitor in the ICU, not quite ready to transfer out of the ICU Place a nasogastric tube and start free water flushes as well as enteral feeding. Patient will be started on Nepro Consider swallow evaluation Continue antibiotics as per ID on the case, may consider transitioning Zosyn to Unasyn Continue insulin drip and follow protocol. GI and DVT prophylaxis however the patient will not receive any anticoagulation therapy because of his previous history of subdural hematoma Time with Patient: Less than 30
[2022-03-02] MEDS ORDERED: DEXTROSE 5% IN WATER 1,000 ML IV SCH (12:30)
[2022-03-02] MEDS ORDERED: INSULIN ASPART (NovoLOG) 100 UNIT/ML VIAL SQ SCH (12:30)
[2022-03-02 12:32] LABS: Glucose,Whole Blood 229 mg/dL (70-110)
--- NOTE | 2022-03-02 16:19 | P.PN ---
Subjective Progress Note Date: 03/02/22 Principal diagnosis: Acute DKA Sepsis Aspiration pneumonia Acute UTI 87-year-old male patient of Dr. 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 Patient was hospitalized at [facility] due to failure to thrive increasing weakness and difficulty ambulatingfor 2 weeks and progressively worsening. Patient was treated for UTI and streptococcal bacteremia seen by infectious disease thought this was a contamination. Echocardiogram did not show any abnormalities suspicious for endocarditis. ID recommended a short course of Ceftin and patient was discharged to [facility] for subacute rehab. Patient was subsequently admitted for A. fib RVR and aspiration pneumonia. He was stabilized and discharged back to [facility] for subacute rehab. Upon his return, patient has been more weak, less involved in his care then prior admissions yesterday, patient was transferred to [facility] emergency center due to altered mental status and hypotension. Patient was found to be afebrile, heart rate 122, respiratory rate 26, blood pressure 89/59, pulse ox 91% on nonrebreather. EKG was atrial fibrillation with RVR with a ventricular rate of 123. WBC 5.2, hemoglobin 10.5, platelet count 152. Sodium 160, potassium 5, chloride 125, CO2 18, anion gap 17, BUN 176, creatinine 4.9. Blood sugar 515. Lactic acid 3.2. Calcium 8.9. Magnesium 3.1. Total bilirubin 0.5, AST 13 ALT 15, alkaline phosphatase 79. Urinalysis cloudy, glucose 3+, blood small, leukoesterase large, WBCs 103. Acetone positive Chest x-ray revealed infiltrate right lower lung CAT scan of the abdomen and pelvis without contrast revealed no evidence of retroperitoneal hematoma. Bibasilar pneumonia, correlate for aspiration. Correlate for hemorrhagic material within the urinary bladder. Urinary bladder wall thickening. CAT scan of the brain revealed age-related atrophy and chronic small vessel i schemic change without acute intracranial process. Stable chronic right sided subdural collection. No acute intracranial hemorrhage. Objective - Vital Signs Vital signs: Vital Signs Temp 97.5 F L 03/02/22 08:00 Pulse 81 03/02/22 09:00 Resp 23 03/02/22 09:00 BP 95/58 03/02/22 09:00 Pulse Ox 96 03/02/22 09:00 FiO2 Intake & Output 03/01/22 03/02/22 03/02/22 18:59 06:59 18:59 Intake Total 2672.507 1228.386 450.765 Output Total 650 795 310 Balance 2022.507 433.386 140.765 Weight 84 kg 89.5 kg Intake: IV 1500 400 350 Dextrose 5% in Water 1, 1500 400 350 000 ml @ 100 mls/hr IV . Q10H KEON Rx#:[id number] Intake, IV Titration 1172.507 828.386 100.765 Amount Dextrose 5% in Water 1, 800 100 000 ml @ 150 mls/hr IV . Q7H10M KEON with Sodium Bicarb (1 Meq/ml) 75 ml Rx#:[id number] Dextrose 5% in Water 1, 1000 000 ml @ 999 mls/hr IV . Q1H1M ONE Rx#:[id number] Insulin Regular 100 unit 72.507 28.386 0.765 In Sodium Chloride 0.9% 100 ml @ Per Protocol IV .Q0M KEON Rx#:[id number] Piperacillin-Tazobactam 3 100 .375 gm In Sodium Chloride 0.9% 100 ml @ 25 mls/hr IVPB Q8HR [facility] Rx# :[id number] Output: Urine 650 795 310 Other: Voiding Method Indwelling Catheter Indwelling Catheter - Exam Gen: This is an 87-year-old male. He is resting in ICU bed and appears to be comfortable. No respiratory distress is noted, frequent coughing noted. HEENT: Head is atraumatic, normocephalic. Pupils equal, round. Sclerae is anicteric. NECK: Supple. No JVD. No lymphadenopathy. No thyromegaly. LUNGS: Decreased breath sounds bilaterally with a few scattered rhonchi. No i ntercostal retractions. +coughing HEART: Irregular rate and rhythm. 2/6 systolic murmur. ABDOMEN: Soft. Bowel sounds are present. No masses. No tenderness. Ramirez draining vincenzo urine with seiment. EXTREMITIES: No pedal edema. No calf tenderness. NEUROLOGICAL: Patient is lethargic, oriented to person and place, generalized weakness. - Labs CBC & Chem 7: 03/01/22 05:29 03/02/22 06:53 Labs: Abnormal Lab Results - Last 24 Hours (Table) 03/01/22 03/01/22 03/01/22 Range/Units 05:29 10:28 11:45 Sodium (137-145) mmol/L Chloride (98-107) mmol/L Carbon Dioxide (22-30) mmol/L BUN (9-20) mg/dL Creatinine (0.66-1.25) mg/dL Glucose (74-99) mg/dL POC Glucose (mg/dL) 233 H 331 H (70-110) mg/dL Hemoglobin A1c 9.2 H (0.0-6.0) % Calcium (8.4-10.2) mg/dL Phosphorus (2.5-4.5) mg/dL Magnesium (1.6-2.3) mg/dL Iron (65-175) ug/dL TIBC (228-460) ug/dL Transferrin (204.0-354.0) mg/dL Ferritin (22.0-322.0) ng/mL AST (17-59) U/L Total Protein (6.3-8.2) g/dL Albumin (3.5-5.0) g/dL 03/01/22 03/01/22 03/01/22 Range/Units 12:48 13:09 13:09 Sodium 154 H (137-145) mmol/L Chloride 128 H (98-107) mmol/L Carbon Dioxide 13 L (22-30) mmol/L BUN 157 H* (9-20) mg/dL Creatinine 4.03 H (0.66-1.25) mg/dL Glucose 362 H (74-99) mg/dL POC Glucose (mg/dL) 389 H (70-110) mg/dL Hemoglobin A1c (0.0-6.0) % Calcium 7.4 L (8.4-10.2) mg/dL Phosphorus (2.5-4.5) mg/dL Magnesium (1.6-2.3) mg/dL Iron 38 L (65-175) ug/dL TIBC 102 L (228-460) ug/dL Transferrin 72.8 L (204.0-354.0) mg/dL Ferritin 2384.0 H (22.0-322.0) ng/mL AST (17-59) U/L Total Protein (6.3-8.2) g/dL Albumin (3.5-5.0) g/dL 03/01/22 03/01/22 03/01/22 Range/Units 14:01 14:55 16:11 Sodium (137-145) mmol/L Chloride (98-107) mmol/L Carbon Dioxide (22-30) mmol/L BUN (9-20) mg/dL Creatinine (0.66-1.25) mg/dL Glucose (74-99) mg/dL POC Glucose (mg/dL) 382 H 399 H 247 H (70-110) mg/dL Hemoglobin A1c (0.0-6.0) % Calcium (8.4-10.2) mg/dL Phosphorus (2.5-4.5) mg/dL Magnesium (1.6-2.3) mg/dL Iron (65-175) ug/dL TIBC (228-460) ug/dL Transferrin (204.0-354.0) mg/dL Ferritin (22.0-322.0) ng/mL AST (17-59) U/L Total Protein (6.3-8.2) g/dL Albumin (3.5-5.0) g/dL 03/01/22 03/01/22 03/01/22 Range/Units 17:14 18:13 18:58 Sodium (137-145) mmol/L Chloride (98-107) mmol/L Carbon Dioxide (22-30) mmol/L BUN (9-20) mg/dL Creatinine (0.66-1.25) mg/dL Glucose (74-99) mg/dL POC Glucose (mg/dL) 187 H 130 H 118 H (70-110) mg/dL Hemoglobin A1c (0.0-6.0) % Calcium (8.4-10.2) mg/dL Phosphorus (2.5-4.5) mg/dL Magnesium (1.6-2.3) mg/dL Iron (65-175) ug/dL TIBC (228-460) ug/dL Transferrin (204.0-354.0) mg/dL Ferritin (22.0-322.0) ng/mL AST (17-59) U/L Total Protein (6.3-8.2) g/dL Albumin (3.5-5.0) g/dL 03/01/22 03/01/22 03/01/22 Range/Units 20:04 20:10 21:35 Sodium 152 H (137-145) mmol/L Chloride 126 H (98-107) mmol/L Carbon Dioxide 16 L (22-30) mmol/L BUN 157 H* (9-20) mg/dL Creatinine 3.92 H (0.66-1.25) mg/dL Glucose 146 H (74-99) mg/dL POC Glucose (mg/dL) 150 H 179 H (70-110) mg/dL Hemoglobin A1c (0.0-6.0) % Calcium 7.5 L (8.4-10.2) mg/dL Phosphorus (2.5-4.5) mg/dL Magnesium (1.6-2.3) mg/dL Iron (65-175) ug/dL TIBC (228-460) ug/dL Transferrin (204.0-354.0) mg/dL Ferritin (22.0-322.0) ng/mL AST (17-59) U/L Total Protein (6.3-8.2) g/dL Albumin (3.5-5.0) g/dL 03/01/22 03/01/22 03/02/22 Range/Units 22:23 23:19 00:31 Sodium (137-145) mmol/L Chloride (98-107) mmol/L Carbon Dioxide (22-30) mmol/L BUN (9-20) mg/dL Creatinine (0.66-1.25) mg/dL Glucose (74-99) mg/dL POC Glucose (mg/dL) 218 H 223 H 217 H (70-110) mg/dL Hemoglobin A1c (0.0-6.0) % Calcium (8.4-10.2) mg/dL Phosphorus (2.5-4.5) mg/dL Magnesium (1.6-2.3) mg/dL Iron (65-175) ug/dL TIBC (228-460) ug/dL Transferrin (204.0-354.0) mg/dL Ferritin (22.0-322.0) ng/mL AST (17-59) U/L Total Protein (6.3-8.2) g/dL Albumin (3.5-5.0) g/dL 03/02/22 03/02/22 03/02/22 Range/Units 01:34 02:21 03:19 Sodium (137-145) mmol/L Chloride (98-107) mmol/L Carbon Dioxide (22-30) mmol/L BUN (9-20) mg/dL Creatinine (0.66-1.25) mg/dL Glucose (74-99) mg/dL POC Glucose (mg/dL) 259 H 214 H 183 H (70-110) mg/dL Hemoglobin A1c (0.0-6.0) % Calcium (8.4-10.2) mg/dL Phosphorus (2.5-4.5) mg/dL Magnesium (1.6-2.3) mg/dL Iron (65-175) ug/dL TIBC (228-460) ug/dL Transferrin (204.0-354.0) mg/dL Ferritin (22.0-322.0) ng/mL AST (17-59) U/L Total Protein (6.3-8.2) g/dL Albumin (3.5-5.0) g/dL 03/02/22 03/02/22 03/02/22 Range/Units 04:20 05:28 05:29 Sodium (137-145) mmol/L Chloride (98-107) mmol/L Carbon Dioxide (22-30) mmol/L BUN (9-20) mg/dL Creatinine (0.66-1.25) mg/dL Glucose (74-99) mg/dL POC Glucose (mg/dL) 156 H 173 H 147 H (70-110) mg/dL Hemoglobin A1c (0.0-6.0) % Calcium (8.4-10.2) mg/dL Phosphorus (2.5-4.5) mg/dL Magnesium (1.6-2.3) mg/dL Iron (65-175) ug/dL TIBC (228-460) ug/dL Transferrin (204.0-354.0) mg/dL Ferritin (22.0-322.0) ng/mL AST (17-59) U/L Total Protein (6.3-8.2) g/dL Albumin (3.5-5.0) g/dL 03/02/22 03/02/22 03/02/22 Range/Units 06:37 06:53 06:53 Sodium 153 H (137-145) mmol/L Chloride 127 H (98-107) mmol/L Carbon Dioxide 16 L (22-30) mmol/L BUN 149 H* (9-20) mg/dL Creatinine 3.72 H (0.66-1.25) mg/dL Glucose 127 H (74-99) mg/dL POC Glucose (mg/dL) 117 H (70-110) mg/dL Hemoglobin A1c (0.0-6.0) % Calcium 7.6 L (8.4-10.2) mg/dL Phosphorus 4.6 H (2.5-4.5) mg/dL Magnesium 2.7 H (1.6-2.3) mg/dL Iron (65-175) ug/dL TIBC (228-460) ug/dL Transferrin (204.0-354.0) mg/dL Ferritin (22.0-322.0) ng/mL AST 14 L (17-59) U/L Total Protein 4.6 L (6.3-8.2) g/dL Albumin 2.0 L (3.5-5.0) g/dL 03/02/22 Range/Units 07:04 Sodium (137-145) mmol/L Chloride (98-107) mmol/L Carbon Dioxide (22-30) mmol/L BUN (9-20) mg/dL Creatinine (0.66-1.25) mg/dL Glucose (74-99) mg/dL POC Glucose (mg/dL) 134 H (70-110) mg/dL Hemoglobin A1c (0.0-6.0) % Calcium (8.4-10.2) mg/dL Phosphorus (2.5-4.5) mg/dL Magnesium (1.6-2.3) mg/dL Iron (65-175) ug/dL TIBC (228-460) ug/dL Transferrin (204.0-354.0) mg/dL Ferritin (22.0-322.0) ng/mL AST (17-59) U/L Total Protein (6.3-8.2) g/dL Albumin (3.5-5.0) g/dL Microbiology - Last 24 Hours (Table) 02/28/22 16:50 Urine Culture - Preliminary Urine,Voided Group D Enterococcus 02/28/22 16:35 Blood Culture - Preliminary Blood No Growth after 24 hours Assessment and Plan Assessment: 1. Septic shock; related to aspiration pneumonia/UTI - Continue with current IV antibiotic therapy; patient remains in ICU; blood pr essure remained soft and patient remains on IV fluids in form of D5 water. If 1 50 mL an hour; currently not on any pressor therapy 2. Aspiration pneumonia; been treated with Zosyn 3.375 g IV every 8 hours; we will monitor CBC, CRP and pro-calcitonin 3. Acute UTI; currently on IV antibiotics in form of Zosyn 3.375 g IV every 8 hours; blood cultures and urine cultures obtained and final culture report is pending 4. Acute renal injury/hypernatremia; patient has history of chronic kidney dis ease stage III -- patient remains on IV fluids in form of D5 water at a rate of 1 50 mL an hour; we will monitor strict RAMSES's, daily weights, renal function and electrolytes; avoid nephrotoxins and hypotension 5. DKA; history of diabetes mellitus type 2; patient takes Actos at home which has been placed on hold; patient remains on insulin infusion per DKA protocol 6. Metabolic acidosis; related to AK I and DKA 7. Atrial fibrillation with RVR; history of chronic atrial fibrillation; patien t is rate controlled on Toprol-XL 25 mg which has been placed on hold due to hypotension; not on anticoagulation therapy due to history of retroperitoneal hepatoma 8. Metabolic encephalopathy; multifactorial; related to pneumonia, UTI, sepsis, acute renal injury; continue with current treatment plan DVT prophylaxis; SCDs and JARRET marcial CODE STATUS; full code
[2022-03-02 19:18] LABS: Glucose,Whole Blood 395 mg/dL (70-110)
[2022-03-02] MEDS: INSULIN ASPART (NovoLOG) 100 UNIT/ML VIAL SQ SCH ×2 (19:21→20:29)
[2022-03-02 19:29] LABS: Calcium 7.3 mg/dL (8.4-10.2); Potassium 3.9 mmol/L (3.5-5.1)
--- NOTE | 2022-03-02 20:23 | P.PN ---
Subjective Progress Note Date: 03/02/22 Principal diagnosis: Sepsis UTI/aspiration pneumonia Patient is an 87 year old male with multiple comorbidities who was sent to the ER from residential for a blood pressure and the patient was noticed to be lethargic and was concern for possible right lower lobe aspiration pneumonia as well as a UTI. On today's evaluation of 03/02/2022, the patient is afebrile the patient is lethargic and did have NG placed for nutrition no vomiting has been reported by the nursing staff patient himself was not available for any history and no diarrhea has been reported Objective - Vital Signs Vital signs: Vital Signs Temp 97.5 F L 03/02/22 08:00 Pulse 76 03/02/22 11:00 Resp 20 03/02/22 11:00 BP 96/58 03/02/22 11:00 Pulse Ox 97 03/02/22 11:00 FiO2 Intake & Output 03/01/22 03/02/22 03/02/22 18:59 06:59 18:59 Intake Total 2672.507 1228.386 600.765 Output Total 650 795 385 Balance 2022.507 433.386 215.765 Weight 84 kg 89.5 kg Intake: IV 1500 400 350 Dextrose 5% in Water 1, 1500 400 350 000 ml @ 100 mls/hr IV . Q10H [facility] Rx#:[id number] Intake, IV Titration 1172.507 828.386 250.765 Amount Dextrose 5% in Water 1, 800 250 000 ml @ 150 mls/hr IV . Q7H10M [facility]ON with Sodium Bicarb (1 Meq/ml) 75 ml Rx#:[id number] Dextrose 5% in Water 1, 1000 000 ml @ 999 mls/hr IV . Q1H1M ONE Rx#:[id number] Insulin Regular 100 unit 72.507 28.386 0.765 In Sodium Chloride 0.9% 100 ml @ Per Protocol IV .Q0M KEON Rx#:[id number] Piperacillin-Tazobactam 3 100 .375 gm In Sodium Chloride 0.9% 100 ml @ 25 mls/hr IVPB Q8HR [facility] Rx# :[id number] Output: Urine 650 795 385 Other: Voiding Method Indwelling Catheter Indwelling Catheter Indwelling Catheter - Exam GENERAL DESCRIPTION: An elderly male lying in bed in no distress RESPIRATORY SYSTEM: Unlabored breathing , decreased breath sounds at bases HEART: S1 S2 regular rate and rhythm , ABDOMEN: Soft , no tenderness EXTREMITIES: No edema feet - Labs CBC & Chem 7: 03/01/22 05:29 03/02/22 18:47 Labs: Abnormal Lab Results - Last 24 Hours (Table) 03/01/22 03/01/22 03/01/22 Range/Units 11:45 12:48 13:09 Sodium 154 H (137-145) mmol/L Chloride 128 H (98-107) mmol/L Carbon Dioxide 13 L (22-30) mmol/L BUN 157 H* (9-20) mg/dL Creatinine 4.03 H (0.66-1.25) mg/dL Glucose 362 H (74-99) mg/dL POC Glucose (mg/dL) 331 H 389 H (70-110) mg/dL Calcium 7.4 L (8.4-10.2) mg/dL Phosphorus (2.5-4.5) mg/dL Magnesium (1.6-2.3) mg/dL Iron (65-175) ug/dL TIBC (228-460) ug/dL Transferrin (204.0-354.0) mg/dL Ferritin (22.0-322.0) ng/mL AST (17-59) U/L Total Protein (6.3-8.2) g/dL Albumin (3.5-5.0) g/dL 03/01/22 03/01/22 03/01/22 Range/Units 13:09 14:01 14:55 Sodium (137-145) mmol/L Chloride (98-107) mmol/L Carbon Dioxide (22-30) mmol/L BUN (9-20) mg/dL Creatinine (0.66-1.25) mg/dL Glucose (74-99) mg/dL POC Glucose (mg/dL) 382 H 399 H (70-110) mg/dL Calcium (8.4-10.2) mg/dL Phosphorus (2.5-4.5) mg/dL Magnesium (1.6-2.3) mg/dL Iron 38 L (65-175) ug/dL TIBC 102 L (228-460) ug/dL Transferrin 72.8 L (204.0-354.0) mg/dL Ferritin 2384.0 H (22.0-322.0) ng/mL AST (17-59) U/L Total Protein (6.3-8.2) g/dL Albumin (3.5-5.0) g/dL 03/01/22 03/01/22 03/01/22 Range/Units 16:11 17:14 18:13 Sodium (137-145) mmol/L Chloride (98-107) mmol/L Carbon Dioxide (22-30) mmol/L BUN (9-20) mg/dL Creatinine (0.66-1.25) mg/dL Glucose (74-99) mg/dL POC Glucose (mg/dL) 247 H 187 H 130 H (70-110) mg/dL Calcium (8.4-10.2) mg/dL Phosphorus (2.5-4.5) mg/dL Magnesium (1.6-2.3) mg/dL Iron (65-175) ug/dL TIBC (228-460) ug/dL Transferrin (204.0-354.0) mg/dL Ferritin (22.0-322.0) ng/mL AST (17-59) U/L Total Protein (6.3-8.2) g/dL Albumin (3.5-5.0) g/dL 03/01/22 03/01/22 03/01/22 Range/Units 18:58 20:04 20:10 Sodium 152 H (137-145) mmol/L Chloride 126 H (98-107) mmol/L Carbon Dioxide 16 L (22-30) mmol/L BUN 157 H* (9-20) mg/dL Creatinine 3.92 H (0.66-1.25) mg/dL Glucose 146 H (74-99) mg/dL POC Glucose (mg/dL) 118 H 150 H (70-110) mg/dL Calcium 7.5 L (8.4-10.2) mg/dL Phosphorus (2.5-4.5) mg/dL Magnesium (1.6-2.3) mg/dL Iron (65-175) ug/dL TIBC (228-460) ug/dL Transferrin (204.0-354.0) mg/dL Ferritin (22.0-322.0) ng/mL AST (17-59) U/L Total Protein (6.3-8.2) g/dL Albumin (3.5-5.0) g/dL 03/01/22 03/01/22 03/01/22 Range/Units 21:35 22:23 23:19 Sodium (137-145) mmol/L Chloride (98-107) mmol/L Carbon Dioxide (22-30) mmol/L BUN (9-20) mg/dL Creatinine (0.66-1.25) mg/dL Glucose (74-99) mg/dL POC Glucose (mg/dL) 179 H 218 H 223 H (70-110) mg/dL Calcium (8.4-10.2) mg/dL Phosphorus (2.5-4.5) mg/dL Magnesium (1.6-2.3) mg/dL Iron (65-175) ug/dL TIBC (228-460) ug/dL Transferrin (204.0-354.0) mg/dL Ferritin (22.0-322.0) ng/mL AST (17-59) U/L Total Protein (6.3-8.2) g/dL Albumin (3.5-5.0) g/dL 03/02/22 03/02/22 03/02/22 Range/Units 00:31 01:34 02:21 Sodium (137-145) mmol/L Chloride (98-107) mmol/L Carbon Dioxide (22-30) mmol/L BUN (9-20) mg/dL Creatinine (0.66-1.25) mg/dL Glucose (74-99) mg/dL POC Glucose (mg/dL) 217 H 259 H 214 H (70-110) mg/dL Calcium (8.4-10.2) mg/dL Phosphorus (2.5-4.5) mg/dL Magnesium (1.6-2.3) mg/dL Iron (65-175) ug/dL TIBC (228-460) ug/dL Transferrin (204.0-354.0) mg/dL Ferritin (22.0-322.0) ng/mL AST (17-59) U/L Total Protein (6.3-8.2) g/dL Albumin (3.5-5.0) g/dL 03/02/22 03/02/22 03/02/22 Range/Units 03:19 04:20 05:28 Sodium (137-145) mmol/L Chloride (98-107) mmol/L Carbon Dioxide (22-30) mmol/L BUN (9-20) mg/dL Creatinine (0.66-1.25) mg/dL Glucose (74-99) mg/dL POC Glucose (mg/dL) 183 H 156 H 173 H (70-110) mg/dL Calcium (8.4-10.2) mg/dL Phosphorus (2.5-4.5) mg/dL Magnesium (1.6-2.3) mg/dL Iron (65-175) ug/dL TIBC (228-460) ug/dL Transferrin (204.0-354.0) mg/dL Ferritin (22.0-322.0) ng/mL AST (17-59) U/L Total Protein (6.3-8.2) g/dL Albumin (3.5-5.0) g/dL 03/02/22 03/02/22 03/02/22 Range/Units 05:29 06:37 06:53 Sodium (137-145) mmol/L Chloride (98-107) mmol/L Carbon Dioxide (22-30) mmol/L BUN (9-20) mg/dL Creatinine (0.66-1.25) mg/dL Glucose (74-99) mg/dL POC Glucose (mg/dL) 147 H 117 H (70-110) mg/dL Calcium (8.4-10.2) mg/dL Phosphorus 4.6 H (2.5-4.5) mg/dL Magnesium 2.7 H (1.6-2.3) mg/dL Iron (65-175) ug/dL TIBC (228-460) ug/dL Transferrin (204.0-354.0) mg/dL Ferritin (22.0-322.0) ng/mL AST (17-59) U/L Total Protein (6.3-8.2) g/dL Albumin (3.5-5.0) g/dL 03/02/22 03/02/22 Range/Units 06:53 07:04 Sodium 153 H (137-145) mmol/L Chloride 127 H (98-107) mmol/L Carbon Dioxide 16 L (22-30) mmol/L BUN 149 H* (9-20) mg/dL Creatinine 3.72 H (0.66-1.25) mg/dL Glucose 127 H (74-99) mg/dL POC Glucose (mg/dL) 134 H (70-110) mg/dL Calcium 7.6 L (8.4-10.2) mg/dL Phosphorus (2.5-4.5) mg/dL Magnesium (1.6-2.3) mg/dL Iron (65-175) ug/dL TIBC (228-460) ug/dL Transferrin (204.0-354.0) mg/dL Ferritin (22.0-322.0) ng/mL AST 14 L (17-59) U/L Total Protein 4.6 L (6.3-8.2) g/dL Albumin 2.0 L (3.5-5.0) g/dL Microbiology - Last 24 Hours (Table) 02/28/22 16:50 Urine Culture - Preliminary Urine,Voided Group D Enterococcus 02/28/22 16:35 Blood Culture - Preliminary Blood No Growth after 24 hours Assessment and Plan (1) Pneumonia Current Visit: Yes Status: Acute Code(s): J18.9 - PNEUMONIA, UNSPECIFIED ORGANISM SNOMED Code(s): 165102417 (2) UTI (urinary tract infection) Current Visit: Yes Status: Acute Code(s): N39.0 - URINARY TRACT INFECTION, SITE NOT SPECIFIED SNOMED Code(s): 60489666 Plan: 1patient presented to hospital with weakness lethargy head this patient did have evidence of UTI and possible right-sided pneumonia in this patient being a residential resident will need to cover for resistant gram-negative with a likely pathogen. The patient urine however is currently showing enterococcus blood cultures have been negative so far sputum hasn't been collected 2 patient antibiotics will be switched over to Unasyn and monitor clinical course closely Time with Patient: Less than 30
[2022-03-02] MEDS: SODIUM CHLORIDE 0.45% 1,000 ML IV SCH (21:08)
[2022-03-02] MEDS: AMPICILLIN-SULBACTAM 3 GM in SODIUM CHLORIDE 0.9% 100 ML IVPB SCH (21:12)
[2022-03-03 00:36] LABS: Glucose,Whole Blood 189 mg/dL (70-110)
[2022-03-03] MEDS: INSULIN ASPART (NovoLOG) 100 UNIT/ML VIAL SQ SCH ×6 (00:42→20:28)
[2022-03-03] MEDS: METOPROLOL TARTRATE 5 MG/5 ML VIAL IVP SCH ×5 (00:43→23:12)
[2022-03-03 04:57] LABS: Glucose,Whole Blood 124 mg/dL (70-110)
--- NOTE | 2022-03-03 06:33 | XR ---
EXAMINATION TYPE: XR chest 1V portable DATE OF EXAM: 03/03/2022 CLINICAL HISTORY: Difficulty breathing progress study. TECHNIQUE: Single AP portable upright view of the chest is obtained. COMPARISON: Chest x-ray from one day earlier infiltrate studies. FINDINGS: Stable visualized portion of nasogastric tube. Chronic parenchymal changes with bibasilar opacities is redemonstrated. Stable mild cardiomegaly with ectatic and atherosclerotic thoracic aorta.. Multilevel spurring in thoracic spine redemonstrated IMPRESSION: Chronic changes and mild cardiomegaly with patchy bibasilar acute atelectasis and/or infi ltrates redemonstrated. No significant change from one day earlier.
[2022-03-03 07:56] LABS: Glucose,Whole Blood 172 mg/dL (70-110)
[2022-03-03] MEDS: PANTOPRAZOLE 40 MG/10 ML VIAL IVP SCH (08:35)
[2022-03-03] MEDS: SODIUM CHLORIDE 0.45% 1,000 ML IV SCH ×2 (08:35→11:47)
[2022-03-03] MEDS: AMPICILLIN-SULBACTAM 3 GM in SODIUM CHLORIDE 0.9% 100 ML IVPB SCH ×2 (08:35→20:29)
[2022-03-03 09:05] LABS: HCT 31.3 % (39.0-53.0); HGB 9.5 gm/dL (13.0-17.5); Hypochromasia Marked; MCH 30.2 pg (25.0-35.0); MCHC 30.4 g/dL (31.0-37.0); MCV 99.5 fL (80.0-100.0); Macrocytosis Slight; Mean Platelet Volume 16.5; RBC 3.15 m/uL (4.30-5.90); RDW 15.1 % (11.5-15.5)
[2022-03-03 09:10] LABS: Calcium 7.2 mg/dL (8.4-10.2); Total Bilirubin 0.5 mg/dL (0.2-1.3); Total Protein 4.7 g/dL (6.3-8.2)
--- NOTE | 2022-03-03 10:09 | P.PN ---
Subjective Patient is seen in follow-up for acute kidney injury and electrolyte imbalance. Sodium level 147this morning. Renal function gradually improving. Nonoliguric. Oral intake is poor. Receiving tube feeds. Vital signs are stable. General: Awake. No acute distress. HEENT: Head exam is unremarkable. LUNGS: Breath sounds decreased. HEART: Rate and Rhythm are regular. ABDOMEN: Soft, no distention. EXTREMITITES: No edema. Objective - Vital Signs Vital signs: Vital Signs Temp 97.9 F 03/03/22 08:00 Pulse 94 03/03/22 10:00 Resp 24 03/03/22 10:00 BP 94/56 03/03/22 10:00 Pulse Ox 90 L 03/03/22 10:00 FiO2 Intake & Output 03/02/22 03/03/22 03/03/22 18:59 06:59 18:59 Intake Total 0348.752 4966 280 Output Total 1035 1640 115 Balance 865.765 -375 165 Weight 89.5 kg 92.7 kg Intake: IV 350 975 250 Ampicillin-Sulbactam 3 gm 100 100 In Sodium Chloride 0.9% 100 ml @ 200 mls/hr IVPB Q12HR [facility] Rx#:[id number] Dextrose 5% in Water 1, 350 000 ml @ 100 mls/hr IV . Q10H KEON Rx#:[id number] Dextrose 5% in Water 1, 200 000 ml @ 150 mls/hr IV . Q7H10M KEON with Sodium Bicarb (1 Meq/ml) 75 ml Rx#:[id number] Sodium Chloride 0.45% 1, 675 150 000 ml @ 75 mls/hr IV . [id number] KEON Rx#:[id number] Intake, IV Titration 1550.765 Amount Dextrose 5% in Water 1, 550 000 ml @ 150 mls/hr IV . Q7H10M KEON with Sodium Bicarb (1 Meq/ml) 75 ml Rx#:[id number] Dextrose 5% in Water 1, 1000 000 ml @ 999 mls/hr IV . Q1H1M KEON Rx#:[id number] Insulin Regular 100 unit 0.765 In Sodium Chloride 0.9% 100 ml @ Per Protocol IV .Q0M KEON Rx#:[id number] Tube Feeding 200 30 Other 90 Output: Urine 1035 1640 115 Other: Voiding Method Indwelling Catheter Indwelling Catheter Indwelling Catheter # Bowel Movements 1 - Labs CBC & Chem 7: 03/03/22 08:11 03/03/22 08:11 Labs: Abnormal Lab Results - Last 24 Hours (Table) 03/02/22 03/02/22 03/02/22 Range/Units 12:30 18:47 19:15 RBC (4.30-5.90) m/uL Hgb (13.0-17.5) gm/dL Hct (39.0-53.0) % MCHC (31.0-37.0) g/dL Sodium (137-145) mmol/L Chloride 114 H (98-107) mmol/L BUN 137 H* (9-20) mg/dL Creatinine 3.46 H (0.66-1.25) mg/dL Glucose 356 H (74-99) mg/dL POC Glucose (mg/dL) 229 H 395 H (70-110) mg/dL Calcium 7.3 L (8.4-10.2) mg/dL AST (17-59) U/L Total Protein (6.3-8.2) g/dL Albumin (3.5-5.0) g/dL 03/03/22 03/03/22 03/03/22 Range/Units 00:34 04:54 07:55 RBC (4.30-5.90) m/uL Hgb (13.0-17.5) gm/dL Hct (39.0-53.0) % MCHC (31.0-37.0) g/dL Sodium (137-145) mmol/L Chloride (98-107) mmol/L BUN (9-20) mg/dL Creatinine (0.66-1.25) mg/dL Glucose (74-99) mg/dL POC Glucose (mg/dL) 189 H 124 H 172 H (70-110) mg/dL Calcium (8.4-10.2) mg/dL AST (17-59) U/L Total Protein (6.3-8.2) g/dL Albumin (3.5-5.0) g/dL 03/03/22 03/03/22 Range/Units 08:11 08:11 RBC 3.15 L (4.30-5.90) m/uL Hgb 9.5 L (13.0-17.5) gm/dL Hct 31.3 L (39.0-53.0) % MCHC 30.4 L (31.0-37.0) g/dL Sodium 147 H (137-145) mmol/L Chloride 117 H (98-107) mmol/L BUN 125 H* (9-20) mg/dL Creatinine 3.27 H (0.66-1.25) mg/dL Glucose 227 H (74-99) mg/dL POC Glucose (mg/dL) (70-110) mg/dL Calcium 7.2 L (8.4-10.2) mg/dL AST 14 L (17-59) U/L Total Protein 4.7 L (6.3-8.2) g/dL Albumin 2.0 L (3.5-5.0) g/dL Microbiology - Last 24 Hours (Table) 02/28/22 16:50 Urine Culture - Final Urine,Voided Enterococcus faecalis 02/28/22 16:35 Blood Culture - Preliminary Blood No Growth after 48 hours Assessment and Plan Plan: Assessment: 1. Acute kidney injury mostly prerenal secondary to hypovolemia and infection. Creatinine was 4.9 on admission and is 3.27 today. No hydronephrosis noted on CAT scan. 2. Chronic kidney disease stage IIIa secondary to solitary right kidney. 3. Status post left nephrectomy. 4. Hypernatremia from lack of oral water intake. 5. DKA s/p insulin drip. 6. Metabolic acidosis secondary to acute kidney injury and DKA. 7. History of dementia. 8. Anemia. Iron replete. 9. UTI and possible pneumonia on antibiotics. Urine culture positive for group D enterococcus. Infectious disease following. Plan: Maintain half-normal saline. Add water flushes 300 mL every 6 hours with tube feeds. Encouraged oral intake Continue to monitor renal function and urine output Repeat labs in the morning.
[2022-03-03 11:04] LABS: Platelet Count 93 k/uL (150-450)
[2022-03-03] MEDS: DARBEPOETIN ALFA 40 MCG/0.4 ML SYRINGE SQ SCH (11:46)
[2022-03-03 11:50] LABS: Glucose,Whole Blood 184 mg/dL (70-110)
--- NOTE | 2022-03-03 12:30 | P.PN ---
Subjective Progress Note Date: 03/03/22 Principal diagnosis: Acute DKA, sepsis, aspiration pneumonia, acute UTI This is an 87-year-old white male with history of multiple comorbidities, patient was brought yesterday by EMS from the nursing facility with mostly complaints of low blood pressure and the patient has been noted to be lethargic. Patient had previous history of documented coronary artery disease, history of intracranial hemorrhage/subdural hematoma, chronic atrial fibrillation, hypertension, diabetes. Patient is not a great historian, apparently when he arrived to the ER, patient was found to have multiple abnormal labs including blood sugar over 500 anion gap metabolic acidosis hypernatremia with sodium of 160 acute kidney injury with BUN of 169 and creatinine 4.75, abnormal urinalysis, and abnormal chest x-ray suggestive of right lower lobe pneumonia questionable aspiration pneumonia considering the patient's overall mental status patient was obviously septic, and dehydrated upon his initial presentation. He received fluid boluses, blood pressure responded to fluid boluses but the patient did not require to be placed on pressors. Patient was placed empirically on antibiotics for presumptive pneumonia and possible urinary tract infection he was placed on the DKA protocol, and when the ER physician discussed the case with me I recommended definite admission to the ICU. Saw the patient this morning, remains on insulin drip at 1 unit per hour. His IV fluid was transitioned from 0.9 normal saline to D5W at 200 mL per hour. Patient is making urine around 50 mL per hour. More fluid boluses were given this morning. And we are closely monitoring his electrolytes and renal profile sodium remains relatively elevated at 160. However his anion gap corrected nicely and his anion gap this morning is 10. Bicarb is 18. Renal profile showed slight improvement since yesterday on admission ABG on admission showed a pO2 of 88 pCO2 31 pH of 7.37 and this was on the percent FiO2 in the ER. Presently the patient is on nasal cannula at 4 L/m and O2 saturations 93% cultures are pending patient remains on Zosyn and I discontinued his cefepime and vancomycin. Reevaluated today on 03/02/2022, patient remains in the ICU, she is on 2 L nasal cannula, O2 sats is 96%. Patient continues to be relatively lethargic, continues to have significant non-anion gap metabolic acidosis, placed on bicarb drip at 150 mL per hour. Continues to have hypernatremia however the sodium is improving and today I recommended free water flushes through a nasogastric tube to be placed mode every 4 nutritional support and also for free water flushes. Patient remains to have significant free water deficit with relatively high sodium. Mentation remains poor, patient is lethargic, arousable, unable to swallow on his own. Hence I feel it would be best to start enteral feeding via nasogastric tube today. He has a very poor appetite, and does not seem to swallow well. Remains in atrial fibrillation with controlled rate. Denies any shortness of breath cough wheezing denies any nausea vomiting or abdominal pain. Sodium today is 153 bicarb is 16 anion gap is 10 and BUN is 149 and creatinine 3.72. Reevaluated today on 03/03/2022, patient remains in the ICU, he is doing much better today compared to the last couple of days. His sodium has corrected nicely is down to 147 today. His bicarb also corrected nicely and he is off bicarb drip. Patient is on 4 L nasal cannula with O2 sats of 93%. His IV fluid is D5 4 5 at 75 mL/h and I have cut down his free water flushes to 200 mL every 6 hours via nasogastric tube. Patient is also receiving enteral feeding. Patient is awake but remains confused. Today I plan to transfer the patient out of the ICU, he can go to a regular medical floor, he will need to have swallow evaluation and may even have to consider a PEG tube placement if he failed the swallow evaluation. In the meantime we are continuing his antibiotics for presumptive sepsis and aspiration pneumonia. CBC today is relatively unremarkable. His BUN is down to 125 creatinine is down to 3.27. And sodium is 147 bicarb is 23. Objective - Vital Signs Vital signs: Vital Signs Temp 97.3 F L 03/03/22 12:00 Pulse 93 03/03/22 12:00 Resp 20 03/03/22 12:00 BP 94/56 03/03/22 12:00 Pulse Ox 92 L 03/03/22 12:00 FiO2 Intake & Output 03/02/22 03/03/22 03/03/22 18:59 06:59 18:59 Intake Total 8886.036 7548 610 Output Total 1035 1640 405 Balance 865.765 -375 205 Weight 89.5 kg 92.7 kg Intake: IV 350 975 400 Ampicillin-Sulbactam 3 gm 100 100 In Sodium Chloride 0.9% 100 ml @ 200 mls/hr IVPB Q12HR [facility] Rx#:[id number] Dextrose 5% in Water 1, 350 000 ml @ 100 mls/hr IV . Q10H KEON Rx#:[id number] Dextrose 5% in Water 1, 200 000 ml @ 150 mls/hr IV . Q7H10M KEON with Sodium Bicarb (1 Meq/ml) 75 ml Rx#:[id number] Sodium Chloride 0.45% 1, 675 300 000 ml @ 75 mls/hr IV . [id number] KEON Rx#:[id number] Intake, IV Titration 1550.765 150 Amount Dextrose 5% in Water 1, 550 000 ml @ 150 mls/hr IV . Q7H10M KEON with Sodium Bicarb (1 Meq/ml) 75 ml Rx#:[id number] Dextrose 5% in Water 1, 1000 000 ml @ 999 mls/hr IV . Q1H1M KEON Rx#:[id number] Insulin Regular 100 unit 0.765 In Sodium Chloride 0.9% 100 ml @ Per Protocol IV .Q0M KEON Rx#:[id number] Sodium Chloride 0.45% 1, 150 000 ml @ 75 mls/hr IV . [id number] KEON Rx#:[id number] Tube Feeding 200 60 Other 90 Output: Urine 1035 1640 405 Other: Voiding Method Indwelling Catheter Indwelling Catheter Indwelling Catheter # Bowel Movements 1 1 - Exam General Impression: Revealed a 87-year-old white male confused, in no distress. HEENT: Normocephalic atraumatic, PERRLA, EOMI, extremely dry mucous membranes n oted, nasogastric tube is intact Cardiovascular: Irregular irregular rhythm, no S3 gallop. 2/6 systolic murmur thought the precordium Chest: Diminished breath sounds and crackles at the bases no rhonchi no wheezes Abdomen: Soft nontender no megaly no rebound no guarding. Musculoskeletal: No limitation in range of motion, no deformities. Motor: no focal deficits noted Neurological: Patient is confused, but awake, follows simple instructions today Skin: No rashes. - Labs CBC & Chem 7: 03/03/22 08:11 03/03/22 08:11 Labs: Abnormal Lab Results - Last 24 Hours (Table) 03/02/22 03/02/22 03/02/22 Range/Units 12:30 18:47 19:15 RBC (4.30-5.90) m/uL Hgb (13.0-17.5) gm/dL Hct (39.0-53.0) % MCHC (31.0-37.0) g/dL Plt Count (150-450) k/uL Sodium (137-145) mmol/L Chloride 114 H (98-107) mmol/L BUN 137 H* (9-20) mg/dL Creatinine 3.46 H (0.66-1.25) mg/dL Glucose 356 H (74-99) mg/dL POC Glucose (mg/dL) 229 H 395 H (70-110) mg/dL Calcium 7.3 L (8.4-10.2) mg/dL AST (17-59) U/L Total Protein (6.3-8.2) g/dL Albumin (3.5-5.0) g/dL 03/03/22 03/03/22 03/03/22 Range/Units 00:34 04:54 07:55 RBC (4.30-5.90) m/uL Hgb (13.0-17.5) gm/dL Hct (39.0-53.0) % MCHC (31.0-37.0) g/dL Plt Count (150-450) k/uL Sodium (137-145) mmol/L Chloride (98-107) mmol/L BUN (9-20) mg/dL Creatinine (0.66-1.25) mg/dL Glucose (74-99) mg/dL POC Glucose (mg/dL) 189 H 124 H 172 H (70-110) mg/dL Calcium (8.4-10.2) mg/dL AST (17-59) U/L Total Protein (6.3-8.2) g/dL Albumin (3.5-5.0) g/dL 03/03/22 03/03/22 03/03/22 Range/Units 08:11 08:11 11:48 RBC 3.15 L (4.30-5.90) m/uL Hgb 9.5 L (13.0-17.5) gm/dL Hct 31.3 L (39.0-53.0) % MCHC 30.4 L (31.0-37.0) g/dL Plt Count 93 L (150-450) k/uL Sodium 147 H (137-145) mmol/L Chloride 117 H (98-107) mmol/L BUN 125 H* (9-20) mg/dL Creatinine 3.27 H (0.66-1.25) mg/dL Glucose 227 H (74-99) mg/dL POC Glucose (mg/dL) 184 H (70-110) mg/dL Calcium 7.2 L (8.4-10.2) mg/dL AST 14 L (17-59) U/L Total Protein 4.7 L (6.3-8.2) g/dL Albumin 2.0 L (3.5-5.0) g/dL Microbiology - Last 24 Hours (Table) 02/28/22 16:50 Urine Culture - Final Urine,Voided Enterococcus faecalis 02/28/22 16:35 Blood Culture - Preliminary Blood No Growth after 48 hours Assessment and Plan Assessment: Impression: Acute diabetic ketoacidosis Acute sepsis, likely sources are aspiration pneumonia, and or urinary tract infection. Urine is positive for group D enterococcus, hence his Zosyn was changed to Unasyn. Acute on chronic kidney disease patient had history of chronic kidney disease stage IIIa and he had a solitary right kidney, renal functioning is steadily improving Free water deficit with hypernatremia, significantly improved hence we'll continue the free water flushes for another 24 hours however the dose will cut down to 200 mL every 6 hours Profound dehydration, secondary to above, improving. History of Alzheimer's dementia Chronic anemia possibly iron deficiency anemia Acute aspiration pneumonia is strongly suspected Chronic urinary tract infection, group D enterococcus, on Unasyn Recommendation: Transfer patient out of the ICU to a regular medical floor Continue nasogastric tube and enteral feeding continue free water flushes and decide on the free water flushes once sodium is in the low 140 range. Continue enteral feeding Patient will need a swallow evaluation Continue Unasyn Continue insulin subcu as per protocol Continue GI and DVT prophylaxis. We will continue to follow Time with Patient: Less than 30
--- NOTE | 2022-03-03 15:23 | P.PN ---
Subjective Progress Note Date: 03/03/22 Principal diagnosis: Acute DKA Sepsis Aspiration pneumonia Acute UTI 87-year-old male patient of Dr. 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 Patient was hospitalized at [facility] due to failure to thrive increasing weakness and difficulty ambulatingfor 2 weeks and progressively worsening. Patient was treated for UTI and streptococcal bacteremia seen by infectious disease thought this was a contamination. Echocardiogram did not show any abnormalities suspicious for endocarditis. ID recommended a short course of Ceftin and patient was discharged to [facility] for subacute rehab. Patient was subsequently admitted for A. fib RVR and aspiration pneumonia. He was stabilized and discharged back to [facility] for subacute rehab. Upon his return, patient has been more weak, less involved in his care then prior admissions yesterday, patient was transferred to [facility] emergency center due to altered mental status and hypotension. Patient was found to be afebrile, heart rate 122, respiratory rate 26, blood pressure 89/59, pulse ox 91% on nonrebreather. EKG was atrial fibrillation with RVR with a ventricular rate of 123. WBC 5.2, hemoglobin 10.5, platelet count 152. Sodium 160, potassium 5, chloride 125, CO2 18, anion gap 17, BUN 176, creatinine 4.9. Blood sugar 515. Lactic acid 3.2. Calcium 8.9. Magnesium 3.1. Total bilirubin 0.5, AST 13 ALT 15, alkaline phosphatase 79. Urinalysis cloudy, glucose 3+, blood small, leukoesterase large, WBCs 103. Acetone positive Chest x-ray revealed infiltrate right lower lung CAT scan of the abdomen and pelvis without contrast revealed no evidence of retroperitoneal hematoma. Bibasilar pneumonia, correlate for aspiration. Correlate for hemorrhagic material within the urinary bladder. Urinary bladder wall thickening. CAT scan of the brain revealed age-related atrophy and chronic small vessel i schemic change without acute intracranial process. Stable chronic right sided subdural collection. No acute intracranial hemorrhage. 03/03/2022 Patient is seen and evaluated in the ICU, he is doing much better today compared to the last couple of days. Patient remains on O2 at 4 L per nasal cannula with O2 saturation of 93% Sodium is improved down to 147 today. His bicarb also corrected nicely and he is off bicarb drip. Patient is on 4 L nasal cannula with O2 sats of 93%. His IV fluid is D5 4 5 at 75 mL/h and I have cut down his free water flushes to 200 mL every 6 hours via Remains on antibiotics for presumptive sepsis and aspiration pneumonia. CBC today is relatively unremarkable. His BUN is down to 125 creatinine is down to 3.27. And sodium is 147 bicarb is 23. Patient remains on tube feeding via NG tube Patient to be transferred out of ICU to general medical floor Objective - Vital Signs Vital signs: Vital Signs Temp 97.9 F 03/03/22 08:00 Pulse 82 03/03/22 09:00 Resp 25 H 03/03/22 09:00 BP 82/46 03/03/22 09:00 Pulse Ox 91 L 03/03/22 09:00 FiO2 Intake & Output 03/02/22 03/03/22 03/03/22 18:59 06:59 18:59 Intake Total 0535.883 9728 280 Output Total 1035 1640 115 Balance 865.765 -375 165 Weight 89.5 kg 92.7 kg Intake: IV 350 975 250 Ampicillin-Sulbactam 3 gm 100 100 In Sodium Chloride 0.9% 100 ml @ 200 mls/hr IVPB Q12HR KEON Rx#:[id number] Dextrose 5% in Water 1, 350 000 ml @ 100 mls/hr IV . Q10H KEON Rx#:[id number] Dextrose 5% in Water 1, 200 000 ml @ 150 mls/hr IV . Q7H10M KEON with Sodium Bicarb (1 Meq/ml) 75 ml Rx#:[id number] Sodium Chloride 0.45% 1, 675 150 000 ml @ 75 mls/hr IV . [id number] KEON Rx#:[id number] Intake, IV Titration 1550.765 Amount Dextrose 5% in Water 1, 550 000 ml @ 150 mls/hr IV . Q7H10M KEON with Sodium Bicarb (1 Meq/ml) 75 ml Rx#:[id number] Dextrose 5% in Water 1, 1000 000 ml @ 999 mls/hr IV . Q1H1M KEON Rx#:[id number] Insulin Regular 100 unit 0.765 In Sodium Chloride 0.9% 100 ml @ Per Protocol IV .Q0M KEON Rx#:[id number] Tube Feeding 200 30 Other 90 Output: Urine 1035 1640 115 Other: Voiding Method Indwelling Catheter Indwelling Catheter Indwelling Catheter # Bowel Movements 1 - Exam Gen: This is an 87-year-old male. He is resting in ICU bed and appears to be comfortable. No respiratory distress is noted, frequent coughing noted. HEENT: Head is atraumatic, normocephalic. Pupils equal, round. Sclerae is anicteric. NECK: Supple. No JVD. No lymphadenopathy. No thyromegaly. LUNGS: Decreased breath sounds bilaterally with a few scattered rhonchi. No intercostal retractions. +coughing HEART: Irregular rate and rhythm. 2/6 systolic murmur. ABDOMEN: Soft. Bowel sounds are present. No masses. No tenderness. Ramirez draining vincenzo urine with seiment. EXTREMITIES: No pedal edema. No calf tenderness. NEUROLOGICAL: Patient is lethargic, oriented to person and place, generalized weakness. - Labs CBC & Chem 7: 03/03/22 08:11 03/03/22 08:11 Labs: Abnormal Lab Results - Last 24 Hours (Table) 03/02/22 03/02/22 03/02/22 Range/Units 12:30 18:47 19:15 RBC (4.30-5.90) m/uL Hgb (13.0-17.5) gm/dL Hct (39.0-53.0) % MCHC (31.0-37.0) g/dL Sodium (137-145) mmol/L Chloride 114 H (98-107) mmol/L BUN 137 H* (9-20) mg/dL Creatinine 3.46 H (0.66-1.25) mg/dL Glucose 356 H (74-99) mg/dL POC Glucose (mg/dL) 229 H 395 H (70-110) mg/dL Calcium 7.3 L (8.4-10.2) mg/dL AST (17-59) U/L Total Protein (6.3-8.2) g/dL Albumin (3.5-5.0) g/dL 03/03/22 03/03/22 03/03/22 Range/Units 00:34 04:54 07:55 RBC (4.30-5.90) m/uL Hgb (13.0-17.5) gm/dL Hct (39.0-53.0) % MCHC (31.0-37.0) g/dL Sodium (137-145) mmol/L Chloride (98-107) mmol/L BUN (9-20) mg/dL Creatinine (0.66-1.25) mg/dL Glucose (74-99) mg/dL POC Glucose (mg/dL) 189 H 124 H 172 H (70-110) mg/dL Calcium (8.4-10.2) mg/dL AST (17-59) U/L Total Protein (6.3-8.2) g/dL Albumin (3.5-5.0) g/dL 03/03/22 03/03/22 Range/Units 08:11 08:11 RBC 3.15 L (4.30-5.90) m/uL Hgb 9.5 L (13.0-17.5) gm/dL Hct 31.3 L (39.0-53.0) % MCHC 30.4 L (31.0-37.0) g/dL Sodium 147 H (137-145) mmol/L Chloride 117 H (98-107) mmol/L BUN 125 H* (9-20) mg/dL Creatinine 3.27 H (0.66-1.25) mg/dL Glucose 227 H (74-99) mg/dL POC Glucose (mg/dL) (70-110) mg/dL Calcium 7.2 L (8.4-10.2) mg/dL AST 14 L (17-59) U/L Total Protein 4.7 L (6.3-8.2) g/dL Albumin 2.0 L (3.5-5.0) g/dL Microbiology - Last 24 Hours (Table) 02/28/22 16:50 Urine Culture - Final Urine,Voided Enterococcus faecalis 02/28/22 16:35 Blood Culture - Preliminary Blood No Growth after 48 hours Assessment and Plan Assessment: 1. Septic shock; related to aspiration pneumonia/UTI - Continue with current IV antibiotic therapy; patient remains in ICU; blood pressure remained soft and patient remains on IV fluids in form of D5 water. If 1 50 mL an hour; currently not on any pressor therapy 2. Aspiration pneumonia; been treated with Zosyn 3.375 g IV every 8 hours; we will monitor CBC, CRP and pro-calcitonin 3. Acute UTI; currently on IV antibiotics in form of Zosyn 3.375 g IV every 8 hours; blood cultures and urine cultures obtained and final culture report is pending 4. Acute renal injury/hypernatremia; patient has history of chronic kidney disease stage III -- patient remains on IV fluids in form of D5 water at a rate of 1 50 mL an hour; we will monitor strict RAMSES's, daily weights, renal function and electrolytes; avoid nephrotoxins and hypotension 5. DKA; history of diabetes mellitus type 2; patient takes Actos at home which has been placed on hold; patient remains on insulin infusion per DKA protocol 6. Metabolic acidosis; related to AK I and DKA 7. Atrial fibrillation with RVR; history of chronic atrial fibrillation; patient is rate controlled on Toprol-XL 25 mg which has been placed on hold due to hypotension; not on anticoagulation therapy due to history of retroperitoneal hepatoma 8. Metabolic encephalopathy; multifactorial; related to pneumonia, UTI, sepsis, acute renal injury; continue with current treatment plan DVT prophylaxis; SCDs and JARRET marcial CODE STATUS; full code
[2022-03-03 16:34] LABS: Glucose,Whole Blood 253 mg/dL (70-110)
[2022-03-03 20:04] LABS: Glucose,Whole Blood 255 mg/dL (70-110)
[2022-03-03 22:08] LABS: Glucose,Whole Blood 205 mg/dL (70-110)
[2022-03-04] MEDS ORDERED: guaiFENesin-DM 100-10MG/5ML 10 ML CUP PO PRN
[2022-03-04 00:05] LABS: Glucose,Whole Blood 214 mg/dL (70-110)
[2022-03-04] MEDS: INSULIN ASPART (NovoLOG) 100 UNIT/ML VIAL SQ SCH ×8 (00:16→22:44)
[2022-03-04 04:53] LABS: Glucose,Whole Blood 268 mg/dL (70-110)
[2022-03-04 07:09] LABS: Glucose,Whole Blood 284 mg/dL (70-110)
--- NOTE | 2022-03-04 07:34 | XR ---
EXAMINATION TYPE: XR chest 1V portable DATE OF EXAM: 03/04/2022 CLINICAL HISTORY: Difficulty breathing progress study. TECHNIQUE: Single AP portable upright view of the chest is obtained. COMPARISON: Chest x-ray from one day earlier and older studies. FINDINGS: Stable nasogastric tube. Chronic parenchymal changes with bibasilar opacities is redemonstrated. Increase left basilar promine nce noted. Stable mild cardiomegaly with ectatic and atherosclerotic thoracic aorta. Multilevel spurr ing in thoracic spine redemonstrated IMPRESSION: Chronic changes and mild cardiomegaly with patchy bibasilar acute atelectasis and/or infi ltrates redemonstrated. Some worsening or progression in findings left lung base noted from one day carlos ma
[2022-03-04] MEDS: METOPROLOL TARTRATE 5 MG/5 ML VIAL IVP SCH ×2 (07:58→12:48)
[2022-03-04] MEDS: PANTOPRAZOLE 40 MG/10 ML VIAL IVP SCH (08:01)
[2022-03-04] MEDS: AMPICILLIN-SULBACTAM 3 GM in SODIUM CHLORIDE 0.9% 100 ML IVPB SCH ×2 (08:01→20:53)
[2022-03-04 09:42] LABS: African American GFR (CKD) 19.1 (60.0-200.0); Anion Gap 9.7 mmol/L (10.00-18.00); BUN/Creat Ratio 32.19 Ratio (12.00-20.00); Calcium 7.3 mg/dL (8.7-10.3); Carbon Dioxide 22.3 mmol/L (20.0-27.5); Non-African American GFR(CKD) 16.5 (60.0-200.0); Potassium 4.1 mmol/L (3.5-5.5)
[2022-03-04 10:12] LABS: Basophils # (A) 0.01 X 10*3/uL (0.00-0.10); Basophils % (A) 0.2 %; Eosinophils # (A) 0.07 X 10*3/uL (0.04-0.35); Eosinophils % (A) 1.1 %; HCT 28.1 % (39.6-50.0); HGB 8.1 g/dL (13.0-17.0); Immature Grans, Automated 1.6 %; Immature Platelet Fraction 22.8 % (1.1-6.1); Lymphocytes # (A) 0.89 X 10*3/uL (0.90-5.00); Lymphocytes % (A) 14.3 %; MCH 28.3 pg (27.0-32.0); MCHC 28.8 g/dL (32.0-37.0); MCV 98.3 fL (80.0-97.0); Monocytes # (A) 0.32 X 10*3/uL (0.20-1.00); Monocytes % (A) 5.1 %; NRBC Per 100 WBC 0 /100 WBCS (0.0-0.0); Neutrophils # (A) 4.84 X 10*3/uL (1.80-7.70); Neutrophils % (A) 77.7 %; Platelet Count 80 X 10*3/uL (140-440); RBC 2.86 X 10*6/uL (4.40-5.60); RDW 15.2 % (11.5-14.5); WBC 6.23 X 10*3/uL (4.50-10.00)
[2022-03-04 11:21] LABS: Glucose,Whole Blood 265 mg/dL (70-110)
--- NOTE | 2022-03-04 12:20 | P.PN ---
Subjective Progress Note Date: 03/04/22 Principal diagnosis: Weakness, hypernatremia, altered mental status, diabetic ketoacidosis, suspected aspiration pneumonia, acute UTI This is an 87-year-old white male with history of multiple comorbidities, patient was brought yesterday by EMS from the nursing facility with mostly complaints of low blood pressure and the patient has been noted to be lethargic. Patient had previous history of documented coronary artery disease, history of intracranial hemorrhage/subdural hematoma, chronic atrial fibrillation, hypertension, diabetes. Patient is not a great historian, apparently when he arrived to the ER, patient was found to have multiple abnormal labs including blood sugar over 500 anion gap metabolic acidosis hypernatremia with sodium of 160 acute kidney injury with BUN of 169 and creatinine 4.75, abnormal urinalysis, and abnormal chest x-ray suggestive of right lower lobe pneumonia questionable aspiration pneumonia considering the patient's overall mental statu s patient was obviously septic, and dehydrated upon his initial presentation. He received fluid boluses, blood pressure responded to fluid boluses but the patient did not require to be placed on pressors. Patient was placed empirically on antibiotics for presumptive pneumonia and possible urinary tract infection he was placed on the DKA protocol, and when the ER physician discussed the case with me I recommended definite admission to the ICU. Saw the patient this morning, remains on insulin drip at 1 unit per hour. His IV fluid was transitioned from 0.9 normal saline to D5W at 200 mL per hour. Patient is making urine around 50 mL per hour. More fluid boluses were given this morning. And we are closely monitoring his electrolytes and renal profile sodium remains relatively elevated at 160. However his anion gap corrected nicely and his anion gap this morning is 10. Bicarb is 18. Renal profile showed slight improvement since yesterday on admission ABG on admission showed a pO2 of 88 pCO2 31 pH of 7.37 and this was on the percent FiO2 in the ER. Presently the patient is on nasal cannula at 4 L/m and O2 saturations 93% cultures are pending patient remains on Zosyn and I discontinued his cefepime and vancomycin. Reevaluated today on 03/02/2022, patient remains in the ICU, she is on 2 L nasal cannula, O2 sats is 96%. Patient continues to be relatively lethargic, continues to have significant non-anion gap metabolic acidosis, placed on bicarb drip at 150 mL per hour. Continues to have hypernatremia however the sodium is improving and today I recommended free water flushes through a nasogastric tube to be placed mode every 4 nutritional support and also for free water flushes. Patient remains to have significant free water deficit with relatively high sodium. Mentation remains poor, patient is lethargic, arousable, unable to swallow on his own. Hence I feel it would be best to start enteral feeding via nasogastric tube today. He has a very poor appetite, and does not seem to swallow well. Remains in atrial fibrillation with controlled rate. Denies any shortness of breath cough wheezing denies any nausea vomiting or abdominal pain. Sodium today is 153 bicarb is 16 anion gap is 10 and BUN is 149 and creatinine 3.72. Reevaluated today on 03/03/2022, patient remains in the ICU, he is doing much better today compared to the last couple of days. His sodium has corrected nicely is down to 147 today. His bicarb also corrected nicely and he is off bicarb drip. Patient is on 4 L nasal cannula with O2 sats of 93%. His IV fluid is D5 4 5 at 75 mL/h and I have cut down his free water flushes to 200 mL every 6 hours via nasogastric tube. Patient is also receiving enteral feeding. Patient is awake but remains confused. Today I plan to transfer the patient out of the ICU, he can go to a regular medical floor, he will need to have swallow evaluation and may even have to consider a PEG tube placement if he failed the swallow evaluation. In the meantime we are continuing his antibiotics for presumptive sepsis and aspiration pneumonia. CBC today is relatively unremarkable. His BUN is down to 125 creatinine is down to 3.27. And sodium is 147 bicarb is 23. On 03/04/2022 patient seen in follow-up on medical surgical floor, he was transferred out of intensive care unit yesterday, he is much more awake and responsive on today's exam, he still confused, but appears to be in no distress, breathing comfortably, FiO2 is 4 L pulse ox is 96%, afebrile, blood pressures stable. NG tube remains in place the patient has Jevity infusing at a rate of 40 ML per hour, with 300 mL free water flushes every 6 hours. In addition patient remains on D5W at a rate of 75 ML per hour, he is on Unasyn for urine checked infection related to enterococcus faecalis. No nausea or vomiting, no diarrhea, abdomen is soft. Follow-up chest x-ray today shows chronic changes, with bibasilar opacities with slight worsening at the left lung base. Clinically patient denies any worsening dyspnea no cough, no chest congestion or chest pain. Today's labs have been reviewed, white blood cell count of 6.3, hemoglobin is 8.1, sodium today is 149, potassium is 4.1, BUN is 103, creatinine 3.2 renal profile is improving Objective - Vital Signs Vital signs: Vital Signs Temp 98.0 F 03/04/22 08:00 Pulse 99 03/04/22 08:00 Resp 17 03/04/22 08:00 BP 103/61 03/04/22 08:00 Pulse Ox 96 03/04/22 08:00 FiO2 Intake & Output 03/03/22 03/04/22 03/04/22 18:59 06:59 18:59 Intake Total 985 90 Output Total 905 900 Balance 80 -810 Intake: IV 775 Ampicillin-Sulbactam 3 gm 100 In Sodium Chloride 0.9% 100 ml @ 200 mls/hr IVPB Q12HR [facility] Rx#:[id number] Sodium Chloride 0.45% 1, 675 000 ml @ 75 mls/hr IV . [id number] [facility] Rx#:[id number] Intake, IV Titration 150 Amount Sodium Chloride 0.45% 1, 150 000 ml @ 75 mls/hr IV . [id number] [facility] Rx#:[id number] Tube Feeding 60 90 Output: Urine 905 900 Other: Voiding Method Indwelling Catheter Indwelling Catheter # Bowel Movements 1 - Exam GENERAL EXAM: Alert, very pleasant, 87-year-old white male, pleasantly confused, oriented to self, on 4 L of oxygen pulse ox is 96% comfortable in no apparent distress. HEAD: Normocephalic/atraumatic. EYES: Normal reaction of pupils, equal size. Conjunctiva pink, sclera white. NOSE: Clear with pink turbinates. NG tube is in place, patient remains on tube feedings with Jevity at a rate of 40 ML per hour and free water flushes at 300 mL every 6 hours THROAT: No erythema or exudates. NECK: No masses, no JVD, no thyroid enlargement, no adenopathy. CHEST: No chest wall deformity. Symmetrical expansion. LUNGS: Equal air entry with no crackles, wheeze, rhonchi or dullness. CVS: Regular rate and rhythm, normal S1 and S2, no gallops, no murmurs, no rubs ABDOMEN: Soft, nontender. No hepatosplenomegaly, normal bowel sounds, no guarding or rigidity. EXTREMITIES: No clubbing, no edema, no cyanosis, 2+ pulses and upper and lower extremities. MUSCULOSKELETAL: Muscle strength and tone normal. SPINE: No scoliosis or deformity SKIN: No rashes CENTRAL NERVOUS SYSTEM: Alert and oriented -1. No focal deficits, tone is normal in all 4 extremities. PSYCHIATRIC: Alert and oriented -1. Appropriate affect. Intact judgment and insight. - Labs CBC & Chem 7: 03/04/22 05:38 03/04/22 05:38 Labs: Abnormal Lab Results - Last 24 Hours (Table) 03/03/22 03/03/22 03/03/22 Range/Units 16:33 20:02 22:06 RBC (4.40-5.60) X 10*6/uL Hgb (13.0-17.0) g/dL Hct (39.6-50.0) % MCV (80.0-97.0) fL MCHC (32.0-37.0) g/dL RDW (11.5-14.5) % Plt Count (140-440) X 10*3/uL Immature Gran # (0.00-0.04) X 10*3/uL Lymphocytes # (0.90-5.00) X 10*3/uL Immature Plt Fraction (1.1-6.1) % Sodium (135-145) mmol/L Chloride (96-109) mmol/L Anion Gap (10.00-18.00) mmol/L BUN (9.0-27.0) mg/dL Creatinine (0.6-1.5) mg/dL Est GFR (CKD-EPI)AfAm (60.0-200.0) Est GFR (CKD-EPI)NonAf (60.0-200.0) BUN/Creatinine Ratio (12.00-20.00) Ratio Glucose (70-110) mg/dL POC Glucose (mg/dL) 253 H 255 H 205 H (70-110) mg/dL Calcium (8.7-10.3) mg/dL 03/04/22 03/04/22 03/04/22 Range/Units 00:03 04:47 05:38 RBC 2.86 L (4.40-5.60) X 10*6/uL Hgb 8.1 L (13.0-17.0) g/dL Hct 28.1 L (39.6-50.0) % MCV 98.3 H (80.0-97.0) fL MCHC 28.8 L (32.0-37.0) g/dL RDW 15.2 H (11.5-14.5) % Plt Count 80 L (140-440) X 10*3/uL Immature Gran # 0.10 H (0.00-0.04) X 10*3/uL Lymphocytes # 0.89 L (0.90-5.00) X 10*3/uL Immature Plt Fraction 22.8 H (1.1-6.1) % Sodium (135-145) mmol/L Chloride (96-109) mmol/L Anion Gap (10.00-18.00) mmol/L BUN (9.0-27.0) mg/dL Creatinine (0.6-1.5) mg/dL Est GFR (CKD-EPI)AfAm (60.0-200.0) Est GFR (CKD-EPI)NonAf (60.0-200.0) BUN/Creatinine Ratio (12.00-20.00) Ratio Glucose (70-110) mg/dL POC Glucose (mg/dL) 214 H 268 H (70-110) mg/dL Calcium (8.7-10.3) mg/dL 03/04/22 03/04/22 03/04/22 Range/Units 05:38 07:08 11:20 RBC (4.40-5.60) X 10*6/uL Hgb (13.0-17.0) g/dL Hct (39.6-50.0) % MCV (80.0-97.0) fL MCHC (32.0-37.0) g/dL RDW (11.5-14.5) % Plt Count (140-440) X 10*3/uL Immature Gran # (0.00-0.04) X 10*3/uL Lymphocytes # (0.90-5.00) X 10*3/uL Immature Plt Fraction (1.1-6.1) % Sodium 149 H (135-145) mmol/L Chloride 117 H (96-109) mmol/L Anion Gap 9.70 L (10.00-18.00) mmol/L BUN 103.0 H* (9.0-27.0) mg/dL Creatinine 3.2 H (0.6-1.5) mg/dL Est GFR (CKD-EPI)AfAm 19.1 L (60.0-200.0) Est GFR (CKD-EPI)NonAf 16.5 L (60.0-200.0) BUN/Creatinine Ratio 32.19 H (12.00-20.00) Ratio Glucose 303 H (70-110) mg/dL POC Glucose (mg/dL) 284 H 265 H (70-110) mg/dL Calcium 7.3 L (8.7-10.3) mg/dL Microbiology - Last 24 Hours (Table) 02/28/22 16:35 Blood Culture - Preliminary Blood No Growth after 72 hours Assessment and Plan Plan: Assessment: #1. Acute sepsis related to possible aspiration pneumonia, and urinary tract infection with urine culture positive for enterococcus faecalis, currently on Unasyn #2. Altered mental status related to the above, improved #3. Acute on chronic kidney disease, patient has a history of chronic disease stage IIIa and as solitary right kidney, renal function is improving #4. Free water deficit with hyper nature anemia, significantly improved, patient remains on free water flushes via NG tube and D5W at a rate of 75 ML per hour #4. Profound dehydration secondary to the above, improving #5. History of Alzheimer's dementia #6. Acute aspiration pneumonia #7. Chronic urinary tract infection group D enterococcus on Unasyn Plan: Continue current antibiotics Clinically patient is improving Patient continues on enteral feedings, and patient is also receiving free water flushes via NG tube He is awaiting swallow evaluation If he passes swallow evaluation, will consider removing a NG-tube however the NG tube is also serving the purpose of free water instillation and nutrition de shanita Patient has underlying history of Alzheimer's dementia His oral intake will have to be reevaluated Maintain aspiration precautions GI and DVT prophylaxis We'll continue to follow I have personally seen and examined the patient, performed the documentation and the assessment and plan as written. Number of minutes spent on the visit: [10] Time with Patient: Less than 30
[2022-03-04] MEDS: DEXTROSE 5% IN WATER 1,000 ML IV SCH (12:52)
[2022-03-04] MEDS ORDERED: ACETAMINOPHEN TAB 325 MG TAB PO PRN (13:21)
[2022-03-04] MEDS ORDERED: bisacodyL 10 MG SUPP RECTAL PRN (13:21)
--- NOTE | 2022-03-04 13:45 | CDI ---
Documentation Clarification Form Date: 03/04/2022 01:23:20 PM From: Ingrid Gonzalez RN, CCDS Admit Date: 02/28/2022 07:14:00 PM Patient Name: Alen Swanson Visit Number: [id number] Discharge Date: ATTENTION: The Clinical Documentation Specialists (CDI) and [facility] Coding Staff appreciate your assistance in clarifying documentation. Please respond to the clarification below the line at the bottom and electronically sign. The CDI & [facility] Coding staff will review the response and follow-up if needed. Please note: Queries are made part of the Legal Health Record. If you have any questions, please contact the author of this message via ITS. Dr. Wilfred Cazares UTI is documented in the ED evaluation, H/P and subsequent progress notes. This patient present with chronic indwelling Ramirez catheter. Additional clarification regarding this diagnosis is requested. History/Risk Factors: Atrial Fibrillation COPD, DM, HTN, CKD, Chronic Ramirez catheter Clinical Indicators: 87-year-old male present to ED with weakness, altered mental status and hypotension. He was ruled in for aspiration pneumonia, sepsis and UTI. ED assessment on 02/28 has Ramirez catheter POA with purulent urine in the Ramirez catheter tubing. 02/28 Vital Signs: 89/59 122 26 98.9 02/28 WBC: WBC 5.2, HGB 10.5, HCT 36.1, NA+ 160, BUN 176, CR 4.97, RBS 515, Lactic acid 3.2 02/28 UA: Leukocyte Esterase 02/28 Urine Culture: Enterococcus faecalis 02/28 Blood Culture: No growth after 72 hours Treatment Vancomycin HCL 1,500 MG IVPB ONCE (02/28) PTD IV.9 NS 1,000 Liter bolus Zosyn 3.375 MG IVPB Q 8 HRS 03/01-03/02 Unasyn 3 GM IVPB Q 12 HRS Please clarify if there is an additional diagnosis associated with the UTI: [ ] UTI only [X ] UTI secondary to Ramirez Catheter POA [ ] Other, please specify [ ] Unable to determine (Template Last Revised: October 2020) 1.Acute sepsis and septic shock secondary to aspiration pneumonia and Ramirez c atheter associated urinary tract infection. Dictated By: Cindy Tobias Signed By: <Electronically signed by Cindy BAUMAN> 03/06/22 1500 [facility]
--- NOTE | 2022-03-04 14:48 | CDI ---
Documentation Clarification Form Date: 03/04/2022 01:49:00 PM From: Ingrid Gonzalez RN, CCDS Admit Date: 02/28/2022 07:14:00 PM Patient Name: Alen Swanson Visit Number: [id number] Discharge Date: ATTENTION: The Clinical Documentation Specialists (CDI) and [facility] Coding Staff appreciate your assistance in clarifying documentation. Please respond to the clarification below the line at the bottom and electronically sign. The CDI & [facility] Coding staff will review the response and follow-up if needed. Please note: Queries are made part of the Legal Health Record. If you have any questions, please contact the author of this message via ITS. Dr. Wilfred Cazares Pressure ulcer is documented by nursing wound care assessment on 02/28/22 but is not in the attending H/P and additional diagnosis that is clinically appropriate for this patient? History/Risk Factors: Atrial Fibrillation COPD, DM, HTN, CKD, Chronic Ramirez catheter Clinical Indicators: 87-year-old male present to ED with weakness, altered mental status and hypotension. He was ruled in for aspiration pneumonia, sepsis and UTI. Nursing wound assessment has documented pressure ulcer to coccyx, penis and scrotum. This must be assessed and documented by attending. Location: Coccyx, Penis, Scrotum Wound description: No drainage Treatment: Monitor ulcers per protocol, dressing change as needed. Is there an additional diagnosis that is clinically appropriate for this patient? Please specify all that apply [X ] Pressure Ulcer coccyx in a patient with diabetes mellitus, stage____3__yes__, POA [ ] Other condition, please specify [ ] Unable to determine [ X] Pressure ulcer of Penis stage yes__ POA [ ] Other condition, please specify [ ] Unable to determine [X ] Scrotum pressure injury stage yes____ POA [ ] Other condition, please specify [ } Unable to determine Clinical Definitions: Stage 1 Pressure Ulcer: intact skin, non-blanching redness of local area Stage 2 Pressure Ulcer: Partial thickness, loss of dermis, pink wound bed Stage 3 Pressure Ulcer: Full thickness tissue loss Stage 4 Pressure Ulcer: Full thickness tissue loss with exposed bone, tendon, or muscle. Unstageable pressure ulcer: Full thickness tissue loss in which the base of the ulcer is covered by slough (yellow, carrizales, lance, green or brown) and/or eschar (carrizales, brown or black) in the wound bed. (Template Last Revised: October 2020) MTDD
--- NOTE | 2022-03-04 15:00 | P.PN ---
Subjective Patient is seen for follow-up for acute kidney injury. He also has underlying hypernatremia for which IV fluids were changed to half normal saline. Patient remains on feeding tube and is also receiving free water flushes. Urine output 1.8 L for 24 hours. Patient has a Ramirez catheter Objective - Vital Signs Vital signs: Vital Signs Temp 98.0 F 03/04/22 08:00 Pulse 99 03/04/22 08:00 Resp 17 03/04/22 08:00 BP 103/61 03/04/22 08:00 Pulse Ox 96 03/04/22 08:00 FiO2 Intake & Output 03/03/22 03/04/22 03/04/22 18:59 06:59 18:59 Intake Total 985 90 Output Total 905 900 Balance 80 -810 Weight 92.7 kg Intake: IV 775 Ampicillin-Sulbactam 3 gm 100 In Sodium Chloride 0.9% 100 ml @ 200 mls/hr IVPB Q12HR [facility] Rx#:[id number] Sodium Chloride 0.45% 1, 675 000 ml @ 75 mls/hr IV . [id number] [facility] Rx#:[id number] Intake, IV Titration 150 Amount Sodium Chloride 0.45% 1, 150 000 ml @ 75 mls/hr IV . [id number] [facility] Rx#:[id number] Tube Feeding 60 90 Output: Urine 905 900 Other: Voiding Method Indwelling Catheter Indwelling Catheter # Bowel Movements 1 - Exam Awake, comfortable, no acute distress Patient has been coughing Maintained on feedings Patient is confused Examination of the heart S1 and S2 Examination of the lungs bilateral breath sounds are heard Abdomen is soft nontender Examination of the lower extremity shows no evidence of edema Patient does not follow commands - Labs CBC & Chem 7: 03/04/22 05:38 03/04/22 05:38 Labs: Abnormal Lab Results - Last 24 Hours (Table) 03/03/22 03/03/22 03/03/22 Range/Units 16:33 20:02 22:06 RBC (4.40-5.60) X 10*6/uL Hgb (13.0-17.0) g/dL Hct (39.6-50.0) % MCV (80.0-97.0) fL MCHC (32.0-37.0) g/dL RDW (11.5-14.5) % Plt Count (140-440) X 10*3/uL Immature Gran # (0.00-0.04) X 10*3/uL Lymphocytes # (0.90-5.00) X 10*3/uL Immature Plt Fraction (1.1-6.1) % Sodium (135-145) mmol/L Chloride (96-109) mmol/L Anion Gap (10.00-18.00) mmol/L BUN (9.0-27.0) mg/dL Creatinine (0.6-1.5) mg/dL Est GFR (CKD-EPI)AfAm (60.0-200.0) Est GFR (CKD-EPI)NonAf (60.0-200.0) BUN/Creatinine Ratio (12.00-20.00) Ratio Glucose (70-110) mg/dL POC Glucose (mg/dL) 253 H 255 H 205 H (70-110) mg/dL Calcium (8.7-10.3) mg/dL 03/04/22 03/04/22 03/04/22 Range/Units 00:03 04:47 05:38 RBC 2.86 L (4.40-5.60) X 10*6/uL Hgb 8.1 L (13.0-17.0) g/dL Hct 28.1 L (39.6-50.0) % MCV 98.3 H (80.0-97.0) fL MCHC 28.8 L (32.0-37.0) g/dL RDW 15.2 H (11.5-14.5) % Plt Count 80 L (140-440) X 10*3/uL Immature Gran # 0.10 H (0.00-0.04) X 10*3/uL Lymphocytes # 0.89 L (0.90-5.00) X 10*3/uL Immature Plt Fraction 22.8 H (1.1-6.1) % Sodium (135-145) mmol/L Chloride (96-109) mmol/L Anion Gap (10.00-18.00) mmol/L BUN (9.0-27.0) mg/dL Creatinine (0.6-1.5) mg/dL Est GFR (CKD-EPI)AfAm (60.0-200.0) Est GFR (CKD-EPI)NonAf (60.0-200.0) BUN/Creatinine Ratio (12.00-20.00) Ratio Glucose (70-110) mg/dL POC Glucose (mg/dL) 214 H 268 H (70-110) mg/dL Calcium (8.7-10.3) mg/dL 03/04/22 03/04/22 03/04/22 Range/Units 05:38 07:08 11:20 RBC (4.40-5.60) X 10*6/uL Hgb (13.0-17.0) g/dL Hct (39.6-50.0) % MCV (80.0-97.0) fL MCHC (32.0-37.0) g/dL RDW (11.5-14.5) % Plt Count (140-440) X 10*3/uL Immature Gran # (0.00-0.04) X 10*3/uL Lymphocytes # (0.90-5.00) X 10*3/uL Immature Plt Fraction (1.1-6.1) % Sodium 149 H (135-145) mmol/L Chloride 117 H (96-109) mmol/L Anion Gap 9.70 L (10.00-18.00) mmol/L BUN 103.0 H* (9.0-27.0) mg/dL Creatinine 3.2 H (0.6-1.5) mg/dL Est GFR (CKD-EPI)AfAm 19.1 L (60.0-200.0) Est GFR (CKD-EPI)NonAf 16.5 L (60.0-200.0) BUN/Creatinine Ratio 32.19 H (12.00-20.00) Ratio Glucose 303 H (70-110) mg/dL POC Glucose (mg/dL) 284 H 265 H (70-110) mg/dL Calcium 7.3 L (8.7-10.3) mg/dL Microbiology - Last 24 Hours (Table) 02/28/22 16:35 Blood Culture - Preliminary Blood No Growth after 72 hours Assessment and Plan Assessment: 1. Hyponatremia slightly worse today. I we will change to D5W and increase free water flushes 2. 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 Status post left nephrectomy 4. DKA status post insulin drip 5. Metabolic acidosis associated with acute kidney injury in DKA 6. UTI and possible pneumonia maintained on antibiotics. Urine culture positive for group D enterococcus. Patient is being followed by ID Plan: Switch to D5W Increase free water flushes to 300 mL every 4 hours Repeat labs in a.m.
--- NOTE | 2022-03-04 15:48 | P.PN ---
Subjective Progress Note Date: 03/04/22 HISTORY OF PRESENT ILLNESS This is an 87-year-old male patient of Dr. Hurd with past medical history of Parkinsons disease, Alzheimers dementia, diabetes mellitus type 2, chronic atrial fibrillation not on anticoagulation due to retroperitoneal hematoma, history of pneumonia, benign prostatic hypertrophy, chronic kidney disease with history of left-sided nephrectomy, history of large retroperitoneal hematoma 04/2021, history of aspiration pneumonia. Patient was hospitalized at [facility] due to failure to thrive increasing weakness and difficulty ambulatingfor 2 weeks and progressively worsening. Patient was treated for UTI and streptococcal bacteremia seen by infectious disease thought this was a contamination. Echocardiogram did not show any abnormalities stafford spicious for endocarditis. ID recommended a short course of Ceftin and patient was discharged to [facility] for subacute rehab. Patient was subsequently admitted for A. fib RVR and aspiration pneumonia. He was stabilized and discharged back to [facility] for subacute rehab. Upon his return, patient has been more weak, less involved in his care then prior admissions yesterday, patient was transferred to [facility] emergency center due to altered mental status and hypotension. Patient was found to be afebrile, heart rate 122, respiratory rate 26, blood pressure 89/59, pulse ox 91% on nonrebreather. EKG was atrial fibrillation with RVR with a ventricular rate of 123. WBC 5.2, hemoglobin 10.5, platelet count 152. Sodium 160, potassium 5, chloride 125, CO2 18, anion gap 17, BUN 176, creatinine 4.9. Blood sugar 515. Lactic acid 3.2. Calcium 8.9. Magnesium 3.1. Total bilirubin 0.5, AST 13 ALT 15, alkaline phosphatase 79. Urinalysis cloudy, glucose 3+, blood small, leukoe sterase large, WBCs 103. Acetone positive Chest x-ray revealed infiltrate right lower lung CAT scan of the abdomen and pelvis without contrast revealed no evidence of retroperitoneal hematoma. Bibasilar pneumonia, correlate for aspiration. Correlate for hemorrhagic material within the urinary bladder. Urinary bladder wall thickening. CAT scan of the brain revealed age-related atrophy and chronic small vessel ischemic change without acute intracranial process. Stable chronic right sided subdural collection. No acute intracranial hemorrhage. 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 03/04: Patient is seen on the [facility] floor. He had an NG tube placed over the weekend and receiving Jevity at 40 ML's poor hour +300 ML's of water every 6 ho urs. Patient is on Unasyn for aspiration pneumonia. Patient is followed by pulmonary medicine, infectious disease and nephrology. Blood work today reveals WBC 6.2, hemoglobin 8.1 and platelet count of 80. Sodium 149, potassium 4.1, chloride 117, CO2 22, BUN 103 and creatinine 3.2. Capillary blood glucose running between 214 and 284. Urine culture was finalized with Enterococcus faecalis. IV fluids have been switched to D5W. Patient will be started on Levemir 15 units at bedtime, scheduled NovoLog 5 units every 6 hours and continue NovoLog scale. REVIEW OF SYSTEMS Constitutional: + fever, no chills, no night sweats. No weight change. Noted weakness, noted fatigue no lethargy. Noted daytime sleepiness. EENT: No headache. No blurred vision or double vision, no loss of vision. No lo ss of Hearing, no ringingin the ears, no dizziness. No nasal drainage or congestion. No epistaxis. No sore throat. Lungs: + complaints of shortness of breath, + cough, no sputum production. No wheezing. Cardiovascular: No chest pain, no lower extremity edema. No palpitations. No paroxysmal nocturnal dyspnea. No orthopnea. No lightheadedness or dizziness. No syncopal episodes. Abdominal: No abdominal pain. No nausea, vomiting. No diarrhea. No constipation. No bloody or tarry stools. No loss of appetite. Genitourinary: No dysuria, increased frequency, urgency. No urinary retention. Musculoskeletal: No myalgias. No muscle weakness, reported gait dysfunction, no frequent falls. No back pain. No neck pain. Integumentary: No wounds, no lesions. No rash or pruritus. No unusual bruising. No change in hair or nails. Neurologic: No aphasia. No facial droop. Noted change in mentation. No head injury. No headache. No paralysis. No paresthesia. Psychiatric: No depression. No anxiety. No mood swings. Endocrine: No abnormal blood sugars. No weight change. No excessive sweating or thirst. No cold intolerance. PHYSICAL EXAMINATION Gen: This is an 87-year-old male. He is resting in ICU bed and appears to be comfortable. No respiratory distress is noted, frequent coughing noted. HEENT: Head is atraumatic, normocephalic. Pupils equal, round. Sclerae is anicteric. NECK: Supple. No JVD. No lymphadenopathy. No thyromegaly. LUNGS: Decreased breath sounds bilaterally with a few scattered rhonchi. No intercostal retractions. +coughing HEART: Irregular rate and rhythm. 2/6 systolic murmur. ABDOMEN: Soft. Bowel sounds are present. No masses. No tenderness. Ramirez draining vincenzo urine with seiment. EXTREMITIES: No pedal edema. No calf tenderness. NEUROLOGICAL: Patient is lethargic, oriented to person and place, generalized weakness. ASSESSMENT AND PLAN 1. Acute sepsis and septic shock secondary to aspiration pneumonia and Ramirez catheter associated urinary tract infection. Continue patient management on the MedSurg unit, pulmonary consult appreciated, patient is on Unasyn per infectious disease. Urine culture positive for Enterococcus faecalis. 2. Acute kidney injury secondary to hypovolemia and infection. Consult with nephrology appreciated. Patient is on D5W. 3. Hypernatremia due to poor oral water intake. Continue D5W at 150 ML's per hour. 4. DKA. Patient will be started on Levemir 15 units at bedtime, NovoLog 5 units every 6 hours and scale. 5. Metabolic acidosis secondary to acute kidney injury and DKA. 6. Anemia of chronic disease. continue Aranesp 40 g subcu every 7 days, ferrous sulfate 325 mg daily. 7. A. fib with RVR. Patient started on Lopressor 12.5 mg twice daily No plan to start on anticoagulation due to previous bleeding. 8. Chronic atrial fibrillation not on anticoagulation due to retroperitoneal hematoma. 9. Metabolic encephalopathy secondary to pneumonia, UTI and sepsis. Continue treatment as above. 10. COPD without exacerbation. 11. Chronic hypoxic respiratory failure recently weaned off oxygen. 12. Diabetes mellitus type 2. Patient started on Levemir 15 units at bedtime, NovoLog 5 units every 6 hours and NovoLog scale. 13. Benign prostatic hypertrophy with urinary retention and chronic Ramirez catheter. 14. Chronic kidney disease stage III with history of left-sided nephrectomy. Avoid nephrotoxic agents. 15. History of large retroperitoneal hematoma with acute blood loss, stable, 04/2021. 16. Chronic gout. Hold allopurinol 100 mg daily. 17. Recurrent depression. Hold Zoloft 50 mg at bedtime. 18. Generalized anxiety disorder. 19. Pressure ulcer coccyx and pressure ulcer penis, present on admission. Continue local wound care and offloading. 20. GI prophylaxis. Protonix 40 mg IV push daily. 21. DVT prophylaxis. SCDs and JARRET hue. CODE STATUS: Full code. Prognosis guarded DISCHARGE PLAN Likely return to [facility] for subacute rehab. Impression and plan of care have been directed as dictated by the signing physician. Cindy Tobias nurse practitioner acting as scribe for signing physician. Objective - Vital Signs Vital signs: Vital Signs Temp 98.0 F 03/04/22 08:00 Pulse 99 03/04/22 08:00 Resp 17 03/04/22 08:00 BP 103/61 03/04/22 08:00 Pulse Ox 96 03/04/22 08:00 FiO2 Intake & Output 03/03/22 03/04/22 03/04/22 18:59 06:59 18:59 Intake Total 985 90 Output Total 905 900 Balance 80 -810 Weight 92.7 kg Intake: IV 775 Ampicillin-Sulbactam 3 gm 100 In Sodium Chloride 0.9% 100 ml @ 200 mls/hr IVPB Q12HR [facility] Rx#:[id number] Sodium Chloride 0.45% 1, 675 000 ml @ 75 mls/hr IV . [id number] [facility] Rx#:[id number] Intake, IV Titration 150 Amount Sodium Chloride 0.45% 1, 150 000 ml @ 75 mls/hr IV . [id number] [facility] Rx#:[id number] Tube Feeding 60 90 Output: Urine 905 900 Other: Voiding Method Indwelling Catheter Indwelling Catheter # Bowel Movements 1 - Labs CBC & Chem 7: 03/04/22 05:38 03/04/22 05:38 Labs: Abnormal Lab Results - Last 24 Hours (Table) 03/03/22 03/03/22 03/03/22 Range/Units 16:33 20:02 22:06 RBC (4.40-5.60) X 10*6/uL Hgb (13.0-17.0) g/dL Hct (39.6-50.0) % MCV (80.0-97.0) fL MCHC (32.0-37.0) g/dL RDW (11.5-14.5) % Plt Count (140-440) X 10*3/uL Immature Gran # (0.00-0.04) X 10*3/uL Lymphocytes # (0.90-5.00) X 10*3/uL Immature Plt Fraction (1.1-6.1) % Sodium (135-145) mmol/L Chloride (96-109) mmol/L Anion Gap (10.00-18.00) mmol/L BUN (9.0-27.0) mg/dL Creatinine (0.6-1.5) mg/dL Est GFR (CKD-EPI)AfAm (60.0-200.0) Est GFR (CKD-EPI)NonAf (60.0-200.0) BUN/Creatinine Ratio (12.00-20.00) Ratio Glucose (70-110) mg/dL POC Glucose (mg/dL) 253 H 255 H 205 H (70-110) mg/dL Calcium (8.7-10.3) mg/dL 03/04/22 03/04/22 03/04/22 Range/Units 00:03 04:47 05:38 RBC 2.86 L (4.40-5.60) X 10*6/uL Hgb 8.1 L (13.0-17.0) g/dL Hct 28.1 L (39.6-50.0) % MCV 98.3 H (80.0-97.0) fL MCHC 28.8 L (32.0-37.0) g/dL RDW 15.2 H (11.5-14.5) % Plt Count 80 L (140-440) X 10*3/uL Immature Gran # 0.10 H (0.00-0.04) X 10*3/uL Lymphocytes # 0.89 L (0.90-5.00) X 10*3/uL Immature Plt Fraction 22.8 H (1.1-6.1) % Sodium (135-145) mmol/L Chloride (96-109) mmol/L Anion Gap (10.00-18.00) mmol/L BUN (9.0-27.0) mg/dL Creatinine (0.6-1.5) mg/dL Est GFR (CKD-EPI)AfAm (60.0-200.0) Est GFR (CKD-EPI)NonAf (60.0-200.0) BUN/Creatinine Ratio (12.00-20.00) Ratio Glucose (70-110) mg/dL POC Glucose (mg/dL) 214 H 268 H (70-110) mg/dL Calcium (8.7-10.3) mg/dL 03/04/22 03/04/22 03/04/22 Range/Units 05:38 07:08 11:20 RBC (4.40-5.60) X 10*6/uL Hgb (13.0-17.0) g/dL Hct (39.6-50.0) % MCV (80.0-97.0) fL MCHC (32.0-37.0) g/dL RDW (11.5-14.5) % Plt Count (140-440) X 10*3/uL Immature Gran # (0.00-0.04) X 10*3/uL Lymphocytes # (0.90-5.00) X 10*3/uL Immature Plt Fraction (1.1-6.1) % Sodium 149 H (135-145) mmol/L Chloride 117 H (96-109) mmol/L Anion Gap 9.70 L (10.00-18.00) mmol/L BUN 103.0 H* (9.0-27.0) mg/dL Creatinine 3.2 H (0.6-1.5) mg/dL Est GFR (CKD-EPI)AfAm 19.1 L (60.0-200.0) Est GFR (CKD-EPI)NonAf 16.5 L (60.0-200.0) BUN/Creatinine Ratio 32.19 H (12.00-20.00) Ratio Glucose 303 H (70-110) mg/dL POC Glucose (mg/dL) 284 H 265 H (70-110) mg/dL Calcium 7.3 L (8.7-10.3) mg/dL Microbiology - Last 24 Hours (Table) 02/28/22 16:35 Blood Culture - Preliminary Blood No Growth after 72 hours
[2022-03-04 16:16] LABS: Glucose,Whole Blood 310 mg/dL (70-110)
[2022-03-04 20:19] LABS: Glucose,Whole Blood 252 mg/dL (70-110)
[2022-03-04] MEDS: INSULIN DETEMIR (LEVEMIR) 100 UNIT/ML SYR SQ SCH (20:53)
[2022-03-04] MEDS: METOPROLOL TARTRATE 12.5 MG TAB PO SCH (20:57)
[2022-03-04] MEDS: SERTRALINE 50 MG TAB PO SCH (20:57)
[2022-03-04] MEDS ORDERED: METOPROLOL SUCCINATE (ER) 25 MG TAB.ER.24H PO SCH (21:00)
[2022-03-04 22:47] LABS: Glucose,Whole Blood 236 mg/dL (70-110)
[2022-03-05 00:17] LABS: Glucose,Whole Blood 263 mg/dL (70-110)
[2022-03-05] MEDS: INSULIN ASPART (NovoLOG) 100 UNIT/ML VIAL SQ SCH ×10 (00:46→22:26)
[2022-03-05 04:01] LABS: Glucose,Whole Blood 155 mg/dL (70-110)
[2022-03-05 07:06] LABS: Glucose,Whole Blood 169 mg/dL (70-110)
--- NOTE | 2022-03-05 07:57 | P.PN ---
Subjective Progress Note Date: 03/03/22 Principal diagnosis: Sepsis UTI/aspiration pneumonia Patient is an 87 year old male with multiple comorbidities who was sent to the ER from [facility]-way for a blood pressure and the patient was noticed to be lethargic and was concern for possible right lower lobe aspiration pneumonia as well as a UTI. On today's evaluation of 03/03/2022, The patient continues to be afebrile remains to be lethargic did have NG for nutrition no vomiting or diarrhea has been reported by nursing staff patient did not answer any questions Objective - Vital Signs Vital signs: Vital Signs Temp 97.3 F L 03/03/22 12:00 Pulse 93 03/03/22 12:00 Resp 20 03/03/22 12:00 BP 94/56 03/03/22 12:00 Pulse Ox 92 L 03/03/22 12:00 FiO2 Intake & Output 03/02/22 03/03/22 03/03/22 18:59 06:59 18:59 Intake Total 6716.970 4343 610 Output Total 1035 1640 405 Balance 865.765 -375 205 Weight 89.5 kg 92.7 kg Intake: IV 350 975 400 Ampicillin-Sulbactam 3 gm 100 100 In Sodium Chloride 0.9% 100 ml @ 200 mls/hr IVPB Q12HR [facility] Rx#:[id number] Dextrose 5% in Water 1, 350 000 ml @ 100 mls/hr IV . Q10H [facility] Rx#:[id number] Dextrose 5% in Water 1, 200 000 ml @ 150 mls/hr IV . Q7H10M [facility] with Sodium Bicarb (1 Meq/ml) 75 ml Rx#:[id number] Sodium Chloride 0.45% 1, 675 300 000 ml @ 75 mls/hr IV . [id number] [facility] Rx#:[id number] Intake, IV Titration 1550.765 150 Amount Dextrose 5% in Water 1, 550 000 ml @ 150 mls/hr IV . Q7H10M [facility] with Sodium Bicarb (1 Meq/ml) 75 ml Rx#:[id number] Dextrose 5% in Water 1, 1000 000 ml @ 999 mls/hr IV . Q1H1M [facility] Rx#:[id number] Insulin Regular 100 unit 0.765 In Sodium Chloride 0.9% 100 ml @ Per Protocol IV .Q0M [facility] Rx#:[id number] Sodium Chloride 0.45% 1, 150 000 ml @ 75 mls/hr IV . [id number] [facility] Rx#:[id number] Tube Feeding 200 60 Other 90 Output: Urine 1035 1640 405 Other: Voiding Method Indwelling Catheter Indwelling Catheter Indwelling Catheter # Bowel Movements 1 1 - Exam GENERAL DESCRIPTION: An elderly male lying in bed in no distress RESPIRATORY SYSTEM: Unlabored breathing , decreased breath sounds at bases HEART: S1 S2 regular rate and rhythm , ABDOMEN: Soft , no tenderness EXTREMITIES: No edema feet - Labs CBC & Chem 7: 03/04/22 05:38 03/04/22 05:38 Labs: Abnormal Lab Results - Last 24 Hours (Table) 03/02/22 03/02/22 03/03/22 Range/Units 18:47 19:15 00:34 RBC (4.30-5.90) m/uL Hgb (13.0-17.5) gm/dL Hct (39.0-53.0) % MCHC (31.0-37.0) g/dL Plt Count (150-450) k/uL Sodium (137-145) mmol/L Chloride 114 H (98-107) mmol/L BUN 137 H* (9-20) mg/dL Creatinine 3.46 H (0.66-1.25) mg/dL Glucose 356 H (74-99) mg/dL POC Glucose (mg/dL) 395 H 189 H (70-110) mg/dL Calcium 7.3 L (8.4-10.2) mg/dL AST (17-59) U/L Total Protein (6.3-8.2) g/dL Albumin (3.5-5.0) g/dL 03/03/22 03/03/22 03/03/22 Range/Units 04:54 07:55 08:11 RBC 3.15 L (4.30-5.90) m/uL Hgb 9.5 L (13.0-17.5) gm/dL Hct 31.3 L (39.0-53.0) % MCHC 30.4 L (31.0-37.0) g/dL Plt Count 93 L (150-450) k/uL Sodium (137-145) mmol/L Chloride (98-107) mmol/L BUN (9-20) mg/dL Creatinine (0.66-1.25) mg/dL Glucose (74-99) mg/dL POC Glucose (mg/dL) 124 H 172 H (70-110) mg/dL Calcium (8.4-10.2) mg/dL AST (17-59) U/L Total Protein (6.3-8.2) g/dL Albumin (3.5-5.0) g/dL 03/03/22 03/03/22 03/03/22 Range/Units 08:11 11:48 16:33 RBC (4.30-5.90) m/uL Hgb (13.0-17.5) gm/dL Hct (39.0-53.0) % MCHC (31.0-37.0) g/dL Plt Count (150-450) k/uL Sodium 147 H (137-145) mmol/L Chloride 117 H (98-107) mmol/L BUN 125 H* (9-20) mg/dL Creatinine 3.27 H (0.66-1.25) mg/dL Glucose 227 H (74-99) mg/dL POC Glucose (mg/dL) 184 H 253 H (70-110) mg/dL Calcium 7.2 L (8.4-10.2) mg/dL AST 14 L (17-59) U/L Total Protein 4.7 L (6.3-8.2) g/dL Albumin 2.0 L (3.5-5.0) g/dL Microbiology - Last 24 Hours (Table) 02/28/22 16:50 Urine Culture - Final Urine,Voided Enterococcus faecalis 02/28/22 16:35 Blood Culture - Preliminary Blood No Growth after 48 hours Assessment and Plan (1) Pneumonia Current Visit: Yes Status: Acute Code(s): J18.9 - PNEUMONIA, UNSPECIFIED ORGANISM SNOMED Code(s): 896110776 (2) UTI (urinary tract infection) Current Visit: Yes Status: Acute Code(s): N39.0 - URINARY TRACT INFECTION, SITE NOT SPECIFIED SNOMED Code(s): 12262756 Plan: 1patient presented to hospital with weakness lethargy head this patient did have evidence of UTI and possible right-sided pneumonia in this patient being a [facility] resident will need to cover for resistant gram-negative with a likely pathogen. The patient urine however is currently showing enterococcus blood cultures have been negative so far sputum hasn't been collected 2 patient to continue with Unasyn and monitor clinical course closely Time with Patient: Less than 30
--- NOTE | 2022-03-05 07:59 | P.PN ---
Subjective Progress Note Date: 03/04/22 Principal diagnosis: Sepsis UTI/aspiration pneumonia Patient is an 87 year old male with multiple comorbidities who was [facility] for a blood pressure and the patient was noticed to be lethargic and was concern for possible right lower lobe aspiration pneumonia as well as a UTI. On today's evaluation of 03/04/2022, The patient remains to be afebrile remains to be lethargic and not a good historian, no vomiting or diarrhea has been reported by nursing staff patient did not provide any reliable history Objective - Vital Signs Vital signs: Vital Signs Temp 98.0 F 03/04/22 08:00 Pulse 99 03/04/22 08:00 Resp 17 03/04/22 08:00 BP 103/61 03/04/22 08:00 Pulse Ox 96 03/04/22 08:00 FiO2 Intake & Output 03/03/22 03/04/22 03/04/22 18:59 06:59 18:59 Intake Total 985 90 Output Total 905 900 Balance 80 -810 Weight 92.7 kg Intake: IV 775 Ampicillin-Sulbactam 3 gm 100 In Sodium Chloride 0.9% 100 ml @ 200 mls/hr IVPB Q12HR [facility] Rx#:[id number] Sodium Chloride 0.45% 1, 675 000 ml @ 75 mls/hr IV . [id number] [facility] Rx#:[id number] Intake, IV Titration 150 Amount Sodium Chloride 0.45% 1, 150 000 ml @ 75 mls/hr IV . [id number] [facility] Rx#:[id number] Tube Feeding 60 90 Output: Urine 905 900 Other: Voiding Method Indwelling Catheter Indwelling Catheter # Bowel Movements 1 - Exam GENERAL DESCRIPTION: An elderly male lying in bed in no distress RESPIRATORY SYSTEM: Unlabored breathing , decreased breath sounds at bases HEART: S1 S2 regular rate and rhythm , ABDOMEN: Soft , no tenderness EXTREMITIES: No edema feet - Labs CBC & Chem 7: 03/04/22 05:38 03/04/22 05:38 Labs: Abnormal Lab Results - Last 24 Hours (Table) 03/03/22 03/03/22 03/03/22 Range/Units 16:33 20:02 22:06 RBC (4.40-5.60) X 10*6/uL Hgb (13.0-17.0) g/dL Hct (39.6-50.0) % MCV (80.0-97.0) fL MCHC (32.0-37.0) g/dL RDW (11.5-14.5) % Plt Count (140-440) X 10*3/uL Immature Gran # (0.00-0.04) X 10*3/uL Lymphocytes # (0.90-5.00) X 10*3/uL Immature Plt Fraction (1.1-6.1) % Sodium (135-145) mmol/L Chloride (96-109) mmol/L Anion Gap (10.00-18.00) mmol/L BUN (9.0-27.0) mg/dL Creatinine (0.6-1.5) mg/dL Est GFR (CKD-EPI)AfAm (60.0-200.0) Est GFR (CKD-EPI)NonAf (60.0-200.0) BUN/Creatinine Ratio (12.00-20.00) Ratio Glucose (70-110) mg/dL POC Glucose (mg/dL) 253 H 255 H 205 H (70-110) mg/dL Calcium (8.7-10.3) mg/dL 03/04/22 03/04/22 03/04/22 Range/Units 00:03 04:47 05:38 RBC 2.86 L (4.40-5.60) X 10*6/uL Hgb 8.1 L (13.0-17.0) g/dL Hct 28.1 L (39.6-50.0) % MCV 98.3 H (80.0-97.0) fL MCHC 28.8 L (32.0-37.0) g/dL RDW 15.2 H (11.5-14.5) % Plt Count 80 L (140-440) X 10*3/uL Immature Gran # 0.10 H (0.00-0.04) X 10*3/uL Lymphocytes # 0.89 L (0.90-5.00) X 10*3/uL Immature Plt Fraction 22.8 H (1.1-6.1) % Sodium (135-145) mmol/L Chloride (96-109) mmol/L Anion Gap (10.00-18.00) mmol/L BUN (9.0-27.0) mg/dL Creatinine (0.6-1.5) mg/dL Est GFR (CKD-EPI)AfAm (60.0-200.0) Est GFR (CKD-EPI)NonAf (60.0-200.0) BUN/Creatinine Ratio (12.00-20.00) Ratio Glucose (70-110) mg/dL POC Glucose (mg/dL) 214 H 268 H (70-110) mg/dL Calcium (8.7-10.3) mg/dL 03/04/22 03/04/22 03/04/22 Range/Units 05:38 07:08 11:20 RBC (4.40-5.60) X 10*6/uL Hgb (13.0-17.0) g/dL Hct (39.6-50.0) % MCV (80.0-97.0) fL MCHC (32.0-37.0) g/dL RDW (11.5-14.5) % Plt Count (140-440) X 10*3/uL Immature Gran # (0.00-0.04) X 10*3/uL Lymphocytes # (0.90-5.00) X 10*3/uL Immature Plt Fraction (1.1-6.1) % Sodium 149 H (135-145) mmol/L Chloride 117 H (96-109) mmol/L Anion Gap 9.70 L (10.00-18.00) mmol/L BUN 103.0 H* (9.0-27.0) mg/dL Creatinine 3.2 H (0.6-1.5) mg/dL Est GFR (CKD-EPI)AfAm 19.1 L (60.0-200.0) Est GFR (CKD-EPI)NonAf 16.5 L (60.0-200.0) BUN/Creatinine Ratio 32.19 H (12.00-20.00) Ratio Glucose 303 H (70-110) mg/dL POC Glucose (mg/dL) 284 H 265 H (70-110) mg/dL Calcium 7.3 L (8.7-10.3) mg/dL Microbiology - Last 24 Hours (Table) 02/28/22 16:35 Blood Culture - Preliminary Blood No Growth after 72 hours Assessment and Plan (1) Pneumonia Current Visit: Yes Status: Acute Code(s): J18.9 - PNEUMONIA, UNSPECIFIED ORGANISM SNOMED Code(s): 392417249 (2) UTI (urinary tract infection) Current Visit: Yes Status: Acute Code(s): N39.0 - URINARY TRACT INFECTION, SITE NOT SPECIFIED SNOMED Code(s): 31337534 Plan: 1patient presented to hospital with weakness lethargy head this patient did have evidence of UTI and possible right-sided pneumonia in this patient being a [facility] resident will need to cover for resistant gram-negative with a likely pathogen. The patient urine however is currently showing enterococcus blood cultures have been negative so far sputum hasn't been collected 2 Patient is currently being treated with the Unasyn which will be continued may consider PEG tube if oral intake remains to be poor at that point antibiotic will be transition to oral Time with Patient: Less than 30
[2022-03-05] MEDS: allopurinoL 100 MG TAB PO SCH (08:23)
[2022-03-05] MEDS: METOPROLOL TARTRATE 12.5 MG TAB PO SCH ×2 (08:23→20:36)
[2022-03-05] MEDS: FERROUS SULFATE 325 MG TAB PO SCH (08:25)
[2022-03-05] MEDS: PANTOPRAZOLE 40 MG/10 ML VIAL IVP SCH (09:19)
[2022-03-05 10:01] LABS: Glucose,Whole Blood 172 mg/dL (70-110)
[2022-03-05] MEDS: AMPICILLIN-SULBACTAM 3 GM in SODIUM CHLORIDE 0.9% 100 ML IVPB SCH ×2 (10:38→20:36)
[2022-03-05 11:28] LABS: Glucose,Whole Blood 166 mg/dL (70-110)
[2022-03-05 11:48] LABS: African American GFR (CKD) 26 (>60 ml/min/1.73 sqM); Anion Gap 5 mmol/L; Blood Urea Nitrogen 98 mg/dL (9-20); Carbon Dioxide 23 mmol/L (22-30); Chloride 117 mmol/L (98-107); Glucose 164 mg/dL (74-99); Non-African American GFR(CKD) 23 (>60 ml/min/1.73 sqM); Sodium 145 mmol/L (137-145)
--- NOTE | 2022-03-05 12:01 | P.PN ---
Subjective Progress Note Date: 03/05/22 Principal diagnosis: Weakness, hypernatremia, altered mental status, diabetic ketoacidosis, suspected aspiration pneumonia, acute UTI This is an 87-year-old white male with history of multiple comorbidities, patient was brought yesterday by EMS from the nursing facility with mostly complaints of low blood pressure and the patient has been noted to be lethargic. Patient had previous history of documented coronary artery disease, history of intracranial hemorrhage/subdural hematoma, chronic atrial fibrillation, hypertension, diabetes. Patient is not a great historian, apparently when he arrived to the ER, patient was found to have multiple abnormal labs including blood sugar over 500 anion gap metabolic acidosis hypernatremia with sodium of 160 acute kidney injury with BUN of 169 and creatinine 4.75, abnormal urinalysis, and abnormal chest x-ray suggestive of right lower lobe pneumonia questionable aspiration pneumonia considering the patient's overall mental statu s patient was obviously septic, and dehydrated upon his initial presentation. He received fluid boluses, blood pressure responded to fluid boluses but the patient did not require to be placed on pressors. Patient was placed empirically on antibiotics for presumptive pneumonia and possible urinary tract infection he was placed on the DKA protocol, and when the ER physician discussed the case with me I recommended definite admission to the ICU. Saw the patient this morning, remains on insulin drip at 1 unit per hour. His IV fluid was transitioned from 0.9 normal saline to D5W at 200 mL per hour. Patient is making urine around 50 mL per hour. More fluid boluses were given this morning. And we are closely monitoring his electrolytes and renal profile sodium remains relatively elevated at 160. However his anion gap corrected nicely and his anion gap this morning is 10. Bicarb is 18. Renal profile showed slight improvement since yesterday on admission ABG on admission showed a pO2 of 88 pCO2 31 pH of 7.37 and this was on the percent FiO2 in the ER. Presently the patient is on nasal cannula at 4 L/m and O2 saturations 93% cultures are pending patient remains on Zosyn and I discontinued his cefepime and vancomycin. Reevaluated today on 03/02/2022, patient remains in the ICU, she is on 2 L nasal cannula, O2 sats is 96%. Patient continues to be relatively lethargic, continues to have significant non-anion gap metabolic acidosis, placed on bicarb drip at 150 mL per hour. Continues to have hypernatremia however the sodium is improving and today I recommended free water flushes through a nasogastric tube to be placed mode every 4 nutritional support and also for free water flushes. Patient remains to have significant free water deficit with relatively high sodium. Mentation remains poor, patient is lethargic, arousable, unable to swallow on his own. Hence I feel it would be best to start enteral feeding via nasogastric tube today. He has a very poor appetite, and does not seem to swallow well. Remains in atrial fibrillation with controlled rate. Denies any shortness of breath cough wheezing denies any nausea vomiting or abdominal pain. Sodium today is 153 bicarb is 16 anion gap is 10 and BUN is 149 and creatinine 3.72. Reevaluated today on 03/03/2022, patient remains in the ICU, he is doing much better today compared to the last couple of days. His sodium has corrected nicely is down to 147 today. His bicarb also corrected nicely and he is off bicarb drip. Patient is on 4 L nasal cannula with O2 sats of 93%. His IV fluid is D5 4 5 at 75 mL/h and I have cut down his free water flushes to 200 mL every 6 hours via nasogastric tube. Patient is also receiving enteral feeding. Patient is awake but remains confused. Today I plan to transfer the patient out of the ICU, he can go to a regular medical floor, he will need to have swallow evaluation and may even have to consider a PEG tube placement if he failed the swallow evaluation. In the meantime we are continuing his antibiotics for presumptive sepsis and aspiration pneumonia. CBC today is relatively unremarkable. His BUN is down to 125 creatinine is down to 3.27. And sodium is 147 bicarb is 23. On 03/04/2022 patient seen in follow-up on medical surgical floor, he was transferred out of intensive care unit yesterday, he is much more awake and responsive on today's exam, he still confused, but appears to be in no distress, breathing comfortably, FiO2 is 4 L pulse ox is 96%, afebrile, blood pressures stable. NG tube remains in place the patient has Jevity infusing at a rate of 40 ML per hour, with 300 mL free water flushes every 6 hours. In addition patient remains on D5W at a rate of 75 ML per hour, he is on Unasyn for urine checked infection related to enterococcus faecalis. No nausea or vomiting, no diarrhea, abdomen is soft. Follow-up chest x-ray today shows chronic changes, with bibasilar opacities with slight worsening at the left lung base. Clinically patient denies any worsening dyspnea no cough, no chest congestion or chest pain. Today's labs have been reviewed, white blood cell count of 6.3, hemoglobin is 8.1, sodium today is 149, potassium is 4.1, BUN is 103, creatinine 3.2 renal profile is improving On 03/05/2022 patient seen in follow-up on medical surgical floor. He is awake and alert, he is oriented to person only, disoriented to place and time. Denies any acute distress, no complaints of shortness of breath or cough, no chest discomfort, he remains on D5W at 75 ML per hour, NG tube remains in place with Jevity infusing at 67 ML per hour and free water flushes. His been afebrile. He remains on Unasyn for enterococcus faecalis urinary tract infection. No fever or chills. He was seen by speech therapy and evaluation, and the recommendation has been made to continue with tube feedings for now as the patient's been noted to have increased congestion, and wet voice during the speech evaluation. However his level of consciousness significantly improved since admission. Objective - Vital Signs Vital signs: Vital Signs Temp 97.5 F L 03/05/22 07:26 Pulse 109 H 03/05/22 07:26 Resp 16 03/05/22 07:26 BP 118/79 03/05/22 07:26 Pulse Ox 98 03/05/22 08:30 FiO2 Intake & Output 03/04/22 03/05/22 03/05/22 18:59 06:59 18:59 Intake Total 1200 150 Output Total 900 Balance 1200 -900 150 Weight 92.7 kg 92 kg Intake: Tube Feeding 600 150 Other 600 Output: Urine 900 Other: Voiding Method Indwelling Catheter Indwelling Catheter # Bowel Movements 2 - Exam GENERAL EXAM: Alert, very pleasant, 87-year-old white male, pleasantly confused, oriented to self, on 4 L of oxygen pulse ox is 96% comfortable in no apparent distress. HEAD: Normocephalic/atraumatic. EYES: Normal reaction of pupils, equal size. Conjunctiva pink, sclera white. NOSE: Clear with pink turbinates. NG tube is in place, patient remains on tube feedings with Jevity at a rate of 40 ML per hour and free water flushes at 300 mL every 6 hours THROAT: No erythema or exudates. NECK: No masses, no JVD, no thyroid enlargement, no adenopathy. CHEST: No chest wall deformity. Symmetrical expansion. LUNGS: Equal air entry with no crackles, wheeze, rhonchi or dullness. CVS: Regular rate and rhythm, normal S1 and S2, no gallops, no murmurs, no rubs ABDOMEN: Soft, nontender. No hepatosplenomegaly, normal bowel sounds, no guarding or rigidity. EXTREMITIES: No clubbing, no edema, no cyanosis, 2+ pulses and upper and lower extremities. MUSCULOSKELETAL: Muscle strength and tone normal. SPINE: No scoliosis or deformity SKIN: No rashes CENTRAL NERVOUS SYSTEM: Alert and oriented -1. No focal deficits, tone is normal in all 4 extremities. PSYCHIATRIC: Alert and oriented -1. Appropriate affect. Intact judgment and insight. - Labs CBC & Chem 7: 03/04/22 05:38 03/04/22 05:38 Labs: Abnormal Lab Results - Last 24 Hours (Table) 03/04/22 03/04/22 03/04/22 Range/Units 16:15 20:16 22:43 POC Glucose (mg/dL) 310 H 252 H 236 H (70-110) mg/dL 03/05/22 03/05/22 03/05/22 Range/Units 00:02 03:55 07:04 POC Glucose (mg/dL) 263 H 155 H 169 H (70-110) mg/dL 03/05/22 03/05/22 Range/Units 10:00 11:26 POC Glucose (mg/dL) 172 H 166 H (70-110) mg/dL Microbiology - Last 24 Hours (Table) 02/28/22 16:35 Blood Culture - Preliminary Blood No Growth after 96 hours Assessment and Plan Plan: Assessment: #1. Acute sepsis related to possible aspiration pneumonia, and urinary tract infection with urine culture positive for enterococcus faecalis, currently on Unasyn #2. Altered mental status related to the above, improved #3. Acute on chronic kidney disease, patient has a history of chronic disease stage IIIa and as solitary right kidney, renal function is improving #4. Free water deficit with hyper nature anemia, significantly improved, patient remains on free water flushes via NG tube and D5W at a rate of 75 ML per hour #4. Profound dehydration secondary to the above, improving #5. History of Alzheimer's dementia #6. Acute aspiration pneumonia #7. Chronic urinary tract infection group D enterococcus on Unasyn Plan: Wean FiO2 to keep O2 saturations above 92% Patient is awake and alert, but is confused, His baseline mental status is unknown but he does have history of advanced dementia Vital signs have been stable He continues on antibiotics He was seen in consultation by speech therapy Swallow evaluation is borderline, with increased pharyngeal congestion, although his mentation is improved We'll continue with NG tube feedings and free water flushes Awaiting today's labs We'll continue to follow I have personally seen and examined the patient, performed the documentation and the assessment and plan as written. Number of minutes spent on the visit: [10] Time with Patient: Less than 30
[2022-03-05 12:07] LABS: Potassium 4.6 mmol/L (3.5-5.1)
--- NOTE | 2022-03-05 13:43 | P.PN ---
Subjective Progress Note Date: 03/05/22 HISTORY OF PRESENT ILLNESS This is an 87-year-old male patient of Dr. Hurd with past medical history of Parkinsons disease, Alzheimers dementia, diabetes mellitus type 2, chronic atrial fibrillation not on anticoagulation due to retroperitoneal hematoma, history of pneumonia, benign prostatic hypertrophy, chronic kidney disease with history of left-sided nephrectomy, history of large retroperitoneal hematoma 04/2021, history of aspiration pneumonia. Patient was hospitalized at [facility] due to failure to thrive increasing weakness and difficulty ambulatingfor 2 weeks and progressively worsening. Patient was treated for UTI and streptococcal bacteremia seen by infectious disease thought this was a contamination. Echocardiogram did not show any abnormalities stafford spicious for endocarditis. ID recommended a short course of Ceftin and patient was discharged to [facility] for subacute rehab. Patient was subsequently admitted for A. fib RVR and aspiration pneumonia. He was stabilized and discharged back to [facility] for subacute rehab. Upon his return, patient has been more weak, less involved in his care then prior admissions yesterday, patient was transferred to [facility] emergency center due to altered mental status and hypotension. Patient was found to be afebrile, heart rate 122, respiratory rate 26, blood pressure 89/59, pulse ox 91% on nonrebreather. EKG was atrial fibrillation with RVR with a ventricular rate of 123. WBC 5.2, hemoglobin 10.5, platelet count 152. Sodium 160, potassium 5, chloride 125, CO2 18, anion gap 17, BUN 176, creatinine 4.9. Blood sugar 515. Lactic acid 3.2. Calcium 8.9. Magnesium 3.1. Total bilirubin 0.5, AST 13 ALT 15, alkaline phosphatase 79. Urinalysis cloudy, glucose 3+, blood small, leukoe sterase large, WBCs 103. Acetone positive Chest x-ray revealed infiltrate right lower lung CAT scan of the abdomen and pelvis without contrast revealed no evidence of retroperitoneal hematoma. Bibasilar pneumonia, correlate for aspiration. Correlate for hemorrhagic material within the urinary bladder. Urinary bladder wall thickening. CAT scan of the brain revealed age-related atrophy and chronic small vessel ischemic change without acute intracranial process. Stable chronic right sided subdural collection. No acute intracranial hemorrhage. Patient was admitted into intensive care unit, consult with nephrology and planning management it specialist.. 03/04: Patient is seen on the [facility] floor. He had an NG tube placed over the weekend and receiving Jevity at 40 ML's poor hour +300 ML's of water every 6 ho urs. Patient is on Unasyn for aspiration pneumonia. Patient is followed by pulmonary medicine, infectious disease and nephrology. Blood work today reveals WBC 6.2, hemoglobin 8.1 and platelet count of 80. Sodium 149, potassium 4.1, chloride 117, CO2 22, BUN 103 and creatinine 3.2. Capillary blood glucose running between 214 and 284. Urine culture was finalized with Enterococcus faecalis. IV fluids have been switched to D5W. Patient will be started on Levemir 15 units at bedtime, scheduled NovoLog 5 units every 6 hours and continue NovoLog scale. 03/05: Patient is slightly more alert today. He has been afebrile, heart rate 109, blood pressure 118/79, pulse ox 97% on 4 L nasal cannula. Repeat blood work reveals BUN 98 and creatinine 2.47, chloride 117, potassium 4.6. Capillary blood glucose running between 155 and 172. Patient is followed by pulmonary medicine, nephrology. Patient is continued on NG tube feedings with Jevity and free water flushes. REVIEW OF SYSTEMS Constitutional: + fever, no chills, no night sweats. No weight change. Noted weakness, noted fatigue no lethargy. Noted daytime sleepiness. EENT: No headache. No blurred vision or double vision, no loss of vision. No loss of Hearing, no ringingin the ears, no dizziness. No nasal drainage or congestion. No epistaxis. No sore throat. Lungs: + complaints of shortness of breath, + cough, no sputum production. No wheezing. Cardiovascular: No chest pain, no lower extremity edema. No palpitations. No paroxysmal nocturnal dyspnea. No orthopnea. No lightheadedness or dizziness. No syncopal episodes. Abdominal: No abdominal pain. No nausea, vomiting. No diarrhea. No constipation. No bloody or tarry stools. No loss of appetite. Genitourinary: No dysuria, increased frequency, urgency. No urinary retention. Musculoskeletal: No myalgias. No muscle weakness, reported gait dysfunction, no frequent falls. No back pain. No neck pain. Integumentary: No wounds, no lesions. No rash or pruritus. No unusual bruising. No change in hair or nails. Neurologic: No aphasia. No facial droop. Noted change in mentation. No head injury. No headache. No paralysis. No paresthesia. Psychiatric: Presumed depression. No anxiety. No mood swings. Endocrine: No abnormal blood sugars. No weight change. No excessive sweating or thirst. PHYSICAL EXAMINATION Gen: This is an 87-year-old male. He is resting in bed and appears to be comfortable. No respiratory distress is noted. HEENT: Head is atraumatic, normocephalic. Pupils equal, round. Sclerae is anicteric. NECK: Supple. No JVD. No lymphadenopathy. No thyromegaly. LUNGS: Decreased breath sounds bilaterally with a few scattered rhonchi. No int ercostal retractions. +coughing HEART: Irregular rate and rhythm. 2/6 systolic murmur. ABDOMEN: Soft. Bowel sounds are present. No masses. No tenderness. Ramirez draining vincenzo urine with seiment. EXTREMITIES: No pedal edema. No calf tenderness. NEUROLOGICAL: Patient is opening his eyes to verbal stimuli, attempting to answer questions, oriented to person and place, generalized weakness. ASSESSMENT AND PLAN 1. Acute sepsis and septic shock secondary to aspiration pneumonia and Ramirez catheter associated urinary tract infection. Continue patient management on the MedSurg unit, pulmonary consult appreciated, patient is on Unasyn per infectious disease. Urine culture positive for Enterococcus faecalis. 2. Acute kidney injury secondary to hypovolemia and infection. Consult with nephrology appreciated. Patient is on D5W. 3. Hypernatremia due to poor oral water intake. Continue D5W at 150 ML's per hour. 4. DKA, diabetes mellitus type 2. Continue patient on Levemir 15 units at bedtime, NovoLog 5 units every 6 hours and scale. 5. Metabolic acidosis secondary to acute kidney injury and DKA. 6. Anemia of chronic disease. continue Aranesp 40 g subcu every 7 days, graciela us sulfate 325 mg daily. 7. A. fib with RVR. Patient started on Lopressor 12.5 mg twice daily No plan to start on anticoagulation due to previous bleeding. 8. Chronic atrial fibrillation not on anticoagulation due to retroperitoneal hematoma. 9. Metabolic encephalopathy secondary to pneumonia, UTI and sepsis. Continue treatment as above. 10. COPD without exacerbation. 11. Chronic hypoxic respiratory failure recently weaned off oxygen. 12. Diabetes mellitus type 2. Patient started on Levemir 15 units at bedtime, NovoLog 5 units every 6 hours and NovoLog scale. 13. Benign prostatic hypertrophy with urinary retention and chronic Ramirez catheter. 14. Chronic kidney disease stage III with history of left-sided nephrectomy. Avoid nephrotoxic agents. 15. History of large retroperitoneal hematoma with acute blood loss, stable, 04/2021. 16. Chronic gout. Continue allopurinol 100 mg daily. 17. Recurrent depression. Hold Zoloft 50 mg at bedtime. 18. Generalized anxiety disorder. 19. Pressure ulcer coccyx and pressure ulcer penis, present on admission. Continue local wound care and offloading. 20. GI prophylaxis. Protonix 40 mg IV push daily. 21. DVT prophylaxis. SCDs and JARRET hose. CODE STATUS: Full code. Prognosis guarded DISCHARGE PLAN Likely return to [facility] for subacute rehab. Impression and plan of care have been directed as dictated by the signing physician. Cindy Tobias nurse practitioner acting as scribe for signing physician. Objective - Vital Signs Vital signs: Vital Signs Temp 97.5 F L 03/05/22 07:26 Pulse 109 H 03/05/22 07:26 Resp 16 03/05/22 07:26 BP 118/79 03/05/22 07:26 Pulse Ox 98 03/05/22 08:30 FiO2 Intake & Output 03/04/22 03/05/22 03/05/22 18:59 06:59 18:59 Intake Total 1200 150 Output Total 900 Balance 1200 -900 150 Weight 92.7 kg 92 kg Intake: Tube Feeding 600 150 Other 600 Output: Urine 900 Other: Voiding Method Indwelling Catheter Indwelling Catheter # Bowel Movements 2 - Labs CBC & Chem 7: 03/04/22 05:38 03/05/22 11:16 Labs: Abnormal Lab Results - Last 24 Hours (Table) 03/04/22 03/04/22 03/04/22 Range/Units 16:15 20:16 22:43 Chloride (98-107) mmol/L BUN (9-20) mg/dL Creatinine (0.66-1.25) mg/dL Glucose (74-99) mg/dL POC Glucose (mg/dL) 310 H 252 H 236 H (70-110) mg/dL Calcium (8.4-10.2) mg/dL 03/05/22 03/05/22 03/05/22 Range/Units 00:02 03:55 07:04 Chloride (98-107) mmol/L BUN (9-20) mg/dL Creatinine (0.66-1.25) mg/dL Glucose (74-99) mg/dL POC Glucose (mg/dL) 263 H 155 H 169 H (70-110) mg/dL Calcium (8.4-10.2) mg/dL 03/05/22 03/05/22 03/05/22 Range/Units 10:00 11:16 11:26 Chloride 117 H (98-107) mmol/L BUN 98 H (9-20) mg/dL Creatinine 2.47 H (0.66-1.25) mg/dL Glucose 164 H (74-99) mg/dL POC Glucose (mg/dL) 172 H 166 H (70-110) mg/dL Calcium 7.0 L (8.4-10.2) mg/dL Microbiology - Last 24 Hours (Table) 02/28/22 16:35 Blood Culture - Preliminary Blood No Growth after 96 hours
--- NOTE | 2022-03-05 14:32 | P.PN ---
Subjective Patient is seen for follow-up for acute kidney injury. He also has underlying hypernatremia for which patient is maintained on D5W. Patient remains on feeding tube and is also receiving free water flushes. Urine output 900 mL for 24 hours Objective - Vital Signs Vital signs: Vital Signs Temp 97.3 F L 03/05/22 13:41 Pulse 91 03/05/22 13:41 Resp 20 03/05/22 13:41 BP 108/65 03/05/22 13:41 Pulse Ox 96 03/05/22 13:41 FiO2 Intake & Output 03/04/22 03/05/22 03/05/22 18:59 06:59 18:59 Intake Total 1200 150 Output Total 900 500 Balance 1200 -900 -350 Weight 92.7 kg 92 kg Intake: Tube Feeding 600 150 Other 600 Output: Urine 900 500 Other: Voiding Method Indwelling Catheter Indwelling Catheter # Bowel Movements 2 - Exam Awake, comfortable, no acute distress Patient has been coughing Maintained on feedings Patient is confused Examination of the heart S1 and S2 Examination of the lungs bilateral breath sounds are heard Abdomen is soft nontender Examination of the lower extremity shows no evidence of edema Patient does not follow commands - Labs CBC & Chem 7: 03/04/22 05:38 03/05/22 11:16 Labs: Abnormal Lab Results - Last 24 Hours (Table) 03/04/22 03/04/22 03/04/22 Range/Units 16:15 20:16 22:43 Chloride (98-107) mmol/L BUN (9-20) mg/dL Creatinine (0.66-1.25) mg/dL Glucose (74-99) mg/dL POC Glucose (mg/dL) 310 H 252 H 236 H (70-110) mg/dL Calcium (8.4-10.2) mg/dL 03/05/22 03/05/22 03/05/22 Range/Units 00:02 03:55 07:04 Chloride (98-107) mmol/L BUN (9-20) mg/dL Creatinine (0.66-1.25) mg/dL Glucose (74-99) mg/dL POC Glucose (mg/dL) 263 H 155 H 169 H (70-110) mg/dL Calcium (8.4-10.2) mg/dL 03/05/22 03/05/22 03/05/22 Range/Units 10:00 11:16 11:26 Chloride 117 H (98-107) mmol/L BUN 98 H (9-20) mg/dL Creatinine 2.47 H (0.66-1.25) mg/dL Glucose 164 H (74-99) mg/dL POC Glucose (mg/dL) 172 H 166 H (70-110) mg/dL Calcium 7.0 L (8.4-10.2) mg/dL Microbiology - Last 24 Hours (Table) 02/28/22 16:35 Blood Culture - Preliminary Blood No Growth after 96 hours Assessment and Plan Assessment: 1. Hyponatremia , improved with D5W 2. Chronic kidney disease stage III associated with solitary right kidney 3. Status post left nephrectomy 4. DKA status post insulin drip 5. Metabolic acidosis associated with acute kidney injury in DKA 6. UTI and possible pneumonia maintained on antibiotics. Urine culture positive for group D enterococcus. Patient is being followed by ID Plan: Continue D5W and free water flushes Repeat labs in a.m.
[2022-03-05 16:23] LABS: Glucose,Whole Blood 190 mg/dL (70-110)
[2022-03-05] MEDS: SERTRALINE 50 MG TAB PO SCH (20:36)
[2022-03-05] MEDS: INSULIN DETEMIR (LEVEMIR) 100 UNIT/ML SYR SQ SCH (20:36)
[2022-03-05 20:45] LABS: Glucose,Whole Blood 224 mg/dL (70-110)
[2022-03-05 22:18] LABS: Glucose,Whole Blood 243 mg/dL (70-110)
[2022-03-05] MEDS: DEXTROSE 5% IN WATER 1,000 ML IV SCH ×2 (23:16→23:17)
[2022-03-06] MEDS: INSULIN ASPART (NovoLOG) 100 UNIT/ML VIAL SQ SCH ×8 (00:11→17:59)
[2022-03-06 00:13] LABS: Glucose,Whole Blood 229 mg/dL (70-110)
[2022-03-06 04:07] LABS: Glucose,Whole Blood 210 mg/dL (70-110)
[2022-03-06 07:26] LABS: Glucose,Whole Blood 155 mg/dL (70-110)
[2022-03-06] MEDS: PANTOPRAZOLE 40 MG/10 ML VIAL IVP SCH (07:31)
[2022-03-06] MEDS: FERROUS SULFATE 325 MG TAB PO SCH (07:32)
[2022-03-06] MEDS: allopurinoL 100 MG TAB PO SCH (07:32)
[2022-03-06] MEDS: METOPROLOL TARTRATE 12.5 MG TAB PO SCH ×2 (07:32→21:07)
[2022-03-06] MEDS: DEXTROSE 5% IN WATER 1,000 ML IV SCH ×3 (07:32→20:33)
[2022-03-06] MEDS: AMPICILLIN-SULBACTAM 3 GM in SODIUM CHLORIDE 0.9% 100 ML IVPB SCH ×2 (07:33→21:09)
[2022-03-06 11:42] LABS: Glucose,Whole Blood 134 mg/dL (70-110)
--- NOTE | 2022-03-06 11:48 | P.PN ---
Subjective Progress Note Date: 03/06/22 Principal diagnosis: Weakness, hypernatremia, altered mental status, diabetic ketoacidosis, suspected aspiration pneumonia, acute UTI This is an 87-year-old white male with history of multiple comorbidities, patient was brought yesterday by EMS from the nursing facility with mostly complaints of low blood pressure and the patient has been noted to be lethargic. Patient had previous history of documented coronary artery disease, history of intracranial hemorrhage/subdural hematoma, chronic atrial fibrillation, hypertension, diabetes. Patient is not a great historian, apparently when he arrived to the ER, patient was found to have multiple abnormal labs including blood sugar over 500 anion gap metabolic acidosis hypernatremia with sodium of 160 acute kidney injury with BUN of 169 and creatinine 4.75, abnormal urinalysis, and abnormal chest x-ray suggestive of right lower lobe pneumonia questionable aspiration pneumonia considering the patient's overall mental statu s patient was obviously septic, and dehydrated upon his initial presentation. He received fluid boluses, blood pressure responded to fluid boluses but the patient did not require to be placed on pressors. Patient was placed empirically on antibiotics for presumptive pneumonia and possible urinary tract infection he was placed on the DKA protocol, and when the ER physician discussed the case with me I recommended definite admission to the ICU. Saw the patient this morning, remains on insulin drip at 1 unit per hour. His IV fluid was transitioned from 0.9 normal saline to D5W at 200 mL per hour. Patient is making urine around 50 mL per hour. More fluid boluses were given this morning. And we are closely monitoring his electrolytes and renal profile sodium remains relatively elevated at 160. However his anion gap corrected nicely and his anion gap this morning is 10. Bicarb is 18. Renal profile showed slight improvement since yesterday on admission ABG on admission showed a pO2 of 88 pCO2 31 pH of 7.37 and this was on the percent FiO2 in the ER. Presently the patient is on nasal cannula at 4 L/m and O2 saturations 93% cultures are pending patient remains on Zosyn and I discontinued his cefepime and vancomycin. Reevaluated today on 03/02/2022, patient remains in the ICU, she is on 2 L nasal cannula, O2 sats is 96%. Patient continues to be relatively lethargic, continues to have significant non-anion gap metabolic acidosis, placed on bicarb drip at 150 mL per hour. Continues to have hypernatremia however the sodium is improving and today I recommended free water flushes through a nasogastric tube to be placed mode every 4 nutritional support and also for free water flushes. Patient remains to have significant free water deficit with relatively high sodium. Mentation remains poor, patient is lethargic, arousable, unable to swallow on his own. Hence I feel it would be best to start enteral feeding via nasogastric tube today. He has a very poor appetite, and does not seem to swallow well. Remains in atrial fibrillation with controlled rate. Denies any shortness of breath cough wheezing denies any nausea vomiting or abdominal pain. Sodium today is 153 bicarb is 16 anion gap is 10 and BUN is 149 and creatinine 3.72. Reevaluated today on 03/03/2022, patient remains in the ICU, he is doing much better today compared to the last couple of days. His sodium has corrected nicely is down to 147 today. His bicarb also corrected nicely and he is off bicarb drip. Patient is on 4 L nasal cannula with O2 sats of 93%. His IV fluid is D5 4 5 at 75 mL/h and I have cut down his free water flushes to 200 mL every 6 hours via nasogastric tube. Patient is also receiving enteral feeding. Patient is awake but remains confused. Today I plan to transfer the patient out of the ICU, he can go to a regular medical floor, he will need to have swallow evaluation and may even have to consider a PEG tube placement if he failed the swallow evaluation. In the meantime we are continuing his antibiotics for presumptive sepsis and aspiration pneumonia. CBC today is relatively unremarkable. His BUN is down to 125 creatinine is down to 3.27. And sodium is 147 bicarb is 23. On 03/04/2022 patient seen in follow-up on medical surgical floor, he was transferred out of intensive care unit yesterday, he is much more awake and responsive on today's exam, he still confused, but appears to be in no distress, breathing comfortably, FiO2 is 4 L pulse ox is 96%, afebrile, blood pressures stable. NG tube remains in place the patient has Jevity infusing at a rate of 40 ML per hour, with 300 mL free water flushes every 6 hours. In addition patient remains on D5W at a rate of 75 ML per hour, he is on Unasyn for urine checked infection related to enterococcus faecalis. No nausea or vomiting, no diarrhea, abdomen is soft. Follow-up chest x-ray today shows chronic changes, with bibasilar opacities with slight worsening at the left lung base. Clinically patient denies any worsening dyspnea no cough, no chest congestion or chest pain. Today's labs have been reviewed, white blood cell count of 6.3, hemoglobin is 8.1, sodium today is 149, potassium is 4.1, BUN is 103, creatinine 3.2 renal profile is improving On 03/05/2022 patient seen in follow-up on medical surgical floor. He is awake and alert, he is oriented to person only, disoriented to place and time. Denies any acute distress, no complaints of shortness of breath or cough, no chest discomfort, he remains on D5W at 75 ML per hour, NG tube remains in place with Jevity infusing at 67 ML per hour and free water flushes. His been afebrile. He remains on Unasyn for enterococcus faecalis urinary tract infection. No fever or chills. He was seen by speech therapy and evaluation, and the recommendation has been made to continue with tube feedings for now as the patient's been noted to have increased congestion, and wet voice during the speech evaluation. However his level of consciousness significantly improved since admission. On 03/06/2020 patient seen in follow-up on an apical surgical floor. He is lethargic on today's exam, but does wake up to verbal stimulation, seems comf ortable, no evidence of any respiratory difficulty, he remains on 4 L of oxygen pulse ox is 95-90%, vital signs have been stable, no fever or chills, he remains on Unasyn for Enterococcus faecalis urinary tract infection. NG tube remains in place and tube feedings in the form of Jevity solution is infusing at a rate of 67 ML per hour, and patient remains on 300 mL free water flushes every 6 hours. In addition patient remains on D5W at a rate of 75 ML per hour, nephrology is following, today's labs are still pending for today, but yesterday's labs showed improving serum sodium which is down to 145, potassium is 4.6, renal profile was noted to be improving, BUN was down to 98, creatinine was 2.47. Objective - Vital Signs Vital signs: Vital Signs Temp 98.5 F 03/06/22 08:00 Pulse 91 03/06/22 08:00 Resp 18 03/06/22 08:00 BP 123/78 03/06/22 08:00 Pulse Ox 95 03/06/22 08:00 FiO2 Intake & Output 03/05/22 03/06/22 03/06/22 18:59 06:59 18:59 Intake Total 1886 856 Output Total 500 Balance 1386 856 Weight 91.5 kg Intake: IV 200 Ampicillin-Sulbactam 3 gm 200 In Sodium Chloride 0.9% 100 ml @ 200 mls/hr IVPB Q12HR [facility] Rx#:[id number] Intake, IV Titration 600 Amount Dextrose 5% in Water 1, 600 000 ml @ 75 mls/hr IV . [id number] [facility] Rx#:[id number] Tube Feeding 686 536 Other 600 120 Output: Urine 500 Other: Voiding Method Indwelling Catheter Diaper Indwelling Catheter Incontinent Indwelling Catheter - Exam GENERAL EXAM: Sleepy but does wake up to voice very pleasant, 87-year-old white male, pleasantly confused, oriented to self, on 4 L of oxygen pulse ox is 96% comfortable in no apparent distress. HEAD: Normocephalic/atraumatic. EYES: Normal reaction of pupils, equal size. Conjunctiva pink, sclera white. NOSE: Clear with pink turbinates. NG tube is in place, patient remains on tube feedings with Jevity at a rate of 40 ML per hour and free water flushes at 300 mL every 6 hours THROAT: No erythema or exudates. NECK: No masses, no JVD, no thyroid enlargement, no adenopathy. CHEST: No chest wall deformity. Symmetrical expansion. LUNGS: Equal air entry with no crackles, wheeze, rhonchi or dullness. CVS: Regular rate and rhythm, normal S1 and S2, no gallops, no murmurs, no rubs ABDOMEN: Soft, nontender. No hepatosplenomegaly, normal bowel sounds, no guarding or rigidity. EXTREMITIES: No clubbing, no edema, no cyanosis, 2+ pulses and upper and lower extremities. MUSCULOSKELETAL: Muscle strength and tone normal. SPINE: No scoliosis or deformity SKIN: No rashes CENTRAL NERVOUS SYSTEM: Alert and oriented -1. No focal deficits, tone is normal in all 4 extremities. PSYCHIATRIC: Alert and oriented -1. Appropriate affect. Intact judgment and insight. - Labs CBC & Chem 7: 03/04/22 05:38 03/05/22 11:16 Labs: Abnormal Lab Results - Last 24 Hours (Table) 03/05/22 03/05/22 03/05/22 Range/Units 11:16 16:21 20:33 Chloride 117 H (98-107) mmol/L BUN 98 H (9-20) mg/dL Creatinine 2.47 H (0.66-1.25) mg/dL Glucose 164 H (74-99) mg/dL POC Glucose (mg/dL) 190 H 224 H (70-110) mg/dL Calcium 7.0 L (8.4-10.2) mg/dL 03/05/22 03/06/22 03/06/22 Range/Units 22:13 00:08 04:05 Chloride (98-107) mmol/L BUN (9-20) mg/dL Creatinine (0.66-1.25) mg/dL Glucose (74-99) mg/dL POC Glucose (mg/dL) 243 H 229 H 210 H (70-110) mg/dL Calcium (8.4-10.2) mg/dL 03/06/22 03/06/22 Range/Units 07:24 11:40 Chloride (98-107) mmol/L BUN (9-20) mg/dL Creatinine (0.66-1.25) mg/dL Glucose (74-99) mg/dL POC Glucose (mg/dL) 155 H 134 H (70-110) mg/dL Calcium (8.4-10.2) mg/dL Microbiology - Last 24 Hours (Table) 02/28/22 16:35 Blood Culture - Preliminary Blood No Growth after 120 hours Assessment and Plan Plan: Assessment: #1. Acute sepsis related to possible aspiration pneumonia, and urinary tract infection with urine culture positive for enterococcus faecalis, currently on Unasyn #2. Altered mental status related to the above, improved #3. Acute on chronic kidney disease, patient has a history of chronic disease stage IIIa and as solitary right kidney, renal function is improving #4. Free water deficit with hyper nature anemia, significantly improved, patient remains on free water flushes via NG tube and D5W at a rate of 75 ML per hour #4. Profound dehydration secondary to the above, improving #5. History of Alzheimer's dementia #6. Acute aspiration pneumonia #7. Chronic urinary tract infection group D enterococcus on Unasyn Plan: Patient is lethargic on today's exam Would continue with NG tube until reevaluated by speech therapy again Continue tube feedings His serum sodium has normalized, and renal function is improving We'll defer fluid management to nephrology services Continue antibiotics No respiratory difficulty Wean FiO2 Maintain aspiration precautions I have personally seen and examined the patient, performed the documentation and the assessment and plan as written. Number of minutes spent on the visit: [10] Time with Patient: Less than 30
--- NOTE | 2022-03-06 15:00 | P.PN ---
Subjective Progress Note Date: 03/06/22 HISTORY OF PRESENT ILLNESS This is an 87-year-old male patient of Dr. Hurd with past medical history of Parkinsons disease, Alzheimers dementia, diabetes mellitus type 2, chronic atrial fibrillation not on anticoagulation due to retroperitoneal hematoma, history of pneumonia, benign prostatic hypertrophy, chronic kidney disease with history of left-sided nephrectomy, history of large retroperitoneal hematoma 04/2021, history of aspiration pneumonia. Patient was hospitalized at [facility] due to failure to thrive increasing weakness and difficulty ambulatingfor 2 weeks and progressively worsening. Patient was treated for UTI and streptococcal bacteremia seen by infectious disease thought this was a contamination. Echocardiogram did not show any abnormalities stafford spicious for endocarditis. ID recommended a short course of Ceftin and patient was discharged to [facility] for subacute rehab. Patient was subsequently admitted for A. fib RVR and aspiration pneumonia. He was stabilized and discharged back to [facility] for subacute rehab. Upon his return, patient has been more weak, less involved in his care then prior admissions yesterday, patient was transferred to [facility] emergency center due to altered mental status and hypotension. Patient was found to be afebrile, heart rate 122, respiratory rate 26, blood pressure 89/59, pulse ox 91% on nonrebreather. EKG was atrial fibrillation with RVR with a ventricular rate of 123. WBC 5.2, hemoglobin 10.5, platelet count 152. Sodium 160, potassium 5, chloride 125, CO2 18, anion gap 17, BUN 176, creatinine 4.9. Blood sugar 515. Lactic acid 3.2. Calcium 8.9. Magnesium 3.1. Total bilirubin 0.5, AST 13 ALT 15, alkaline phosphatase 79. Urinalysis cloudy, glucose 3+, blood small, leukoe sterase large, WBCs 103. Acetone positive Chest x-ray revealed infiltrate right lower lung CAT scan of the abdomen and pelvis without contrast revealed no evidence of retroperitoneal hematoma. Bibasilar pneumonia, correlate for aspiration. Correlate for hemorrhagic material within the urinary bladder. Urinary bladder wall thickening. CAT scan of the brain revealed age-related atrophy and chronic small vessel ischemic change without acute intracranial process. Stable chronic right sided subdural collection. No acute intracranial hemorrhage. 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 03/04: Patient is seen on the [facility] floor. He had an NG tube placed over the weekend and receiving Jevity at 40 ML's poor hour +300 ML's of water every 6 ho urs. Patient is on Unasyn for aspiration pneumonia. Patient is followed by pulmonary medicine, infectious disease and nephrology. Blood work today reveals WBC 6.2, hemoglobin 8.1 and platelet count of 80. Sodium 149, potassium 4.1, chloride 117, CO2 22, BUN 103 and creatinine 3.2. Capillary blood glucose running between 214 and 284. Urine culture was finalized with Enterococcus faecalis. IV fluids have been switched to D5W. Patient will be started on Levemir 15 units at bedtime, scheduled NovoLog 5 units every 6 hours and continue NovoLog scale. 03/05: Patient is slightly more alert today. He has been afebrile, heart rate 109, blood pressure 118/79, pulse ox 97% on 4 L nasal cannula. Repeat blood work reveals BUN 98 and creatinine 2.47, chloride 117, potassium 4.6. Capillary blood glucose running between 155 and 172. Patient is followed by pulmonary medicine, nephrology. Patient is continued on NG tube feedings with Jevity and free water flushes. 03/06: Patient has been evaluated by speech therapy at the bedside and has failed, worse than last week. Patient scheduled for modified barium swallow for tomorrow but suspect he most likely will require PEG tube placement. Dr. Cazares is making another attempt to contact patient's son. Patient has been afebrile, heart rate 97, blood pressure 151/82, pulse ox 99% on 4 L nasal cannula. Capillary blood glucose running between 134 and 229. Repeat blood work ordered for tomorrow. The patient is currently on feeding tubes at goal along with free water flushes. Ramirez catheter remains in place. He does have chronic Ramirez. REVIEW OF SYSTEMS Constitutional: No fever, no chills, no night sweats. No weight change. Noted weakness, noted fatigue no lethargy. Noted daytime sleepiness. EENT: No headache. No blurred vision or double vision, no loss of vision. No loss of Hearing, no ringingin the ears, no dizziness. No nasal drainage or congestion. No epistaxis. No sore throat. Lungs: + complaints of shortness of breath, + cough, no sputum production. No wheezing. Cardiovascular: No chest pain, no lower extremity edema. No palpitations. No paroxysmal nocturnal dyspnea. No orthopnea. No lightheadedness or dizziness. No syncopal episodes. Abdominal: No abdominal pain. No nausea, vomiting. No diarrhea. No consti pation. No bloody or tarry stools. No loss of appetite. Genitourinary: No dysuria, increased frequency, urgency. No urinary retention. Musculoskeletal: No myalgias. No muscle weakness, reported gait dysfunction, no frequent falls. No back pain. No neck pain. Integumentary: No wounds, no lesions. No rash or pruritus. No unusual bruising. No change in hair or nails. Neurologic: No aphasia. No facial droop. Noted change in mentation. No head injury. No headache. No paralysis. No paresthesia. Psychiatric: Presumed depression. No anxiety. No mood swings. Endocrine: No abnormal blood sugars. No weight change. No excessive sweating or thirst. PHYSICAL EXAMINATION Gen: This is an 87-year-old male. He is resting in bed and appears to be comfortable. No respiratory distress is noted. HEENT: Head is atraumatic, normocephalic. Pupils equal, round. Sclerae is anicteric. NECK: Supple. No JVD. No lymphadenopathy. No thyromegaly. LUNGS: Decreased breath sounds bilaterally with a few scattered rhonchi. No intercostal retractions. +coughing HEART: Irregular rate and rhythm. 2/6 systolic murmur. ABDOMEN: Soft. Bowel sounds are present. No masses. No tenderness. Ramirez draining vincenzo urine with seiment. EXTREMITIES: No pedal edema. No calf tenderness. NEUROLOGICAL: Patient is opening his eyes to verbal stimuli, attempting to answer questions, oriented to person and place, generalized weakness. ASSESSMENT AND PLAN 1. Acute sepsis and septic shock secondary to aspiration pneumonia and Ramirez catheter associated urinary tract infection. Continue patient management on the MedSur unit, pulmonary consult appreciated, patient is on Unasyn per infectious disease. Urine culture positive for Enterococcus faecalis. 2. Acute kidney injury secondary to hypovolemia and infection. Consult with nephrology appreciated. Patient is on D5W. 3. Hypernatremia due to poor oral water intake. Continue D5W at 75 ML's per hour. 4. DKA, diabetes mellitus type 2. Continue patient on Levemir 15 units at bedtime, NovoLog 5 units every 6 hours and scale. 5. Metabolic acidosis secondary to acute kidney injury and DKA. 6. Anemia of chronic disease. continue Aranesp 40 g subcu every 7 days, ferrous sulfate 325 mg daily. 7. A. fib with RVR. Patient started on Lopressor 12.5 mg twice daily No plan to start on anticoagulation due to previous bleeding. 8. Chronic atrial fibrillation not on anticoagulation due to retroperitoneal hematoma. 9. Metabolic encephalopathy secondary to pneumonia, UTI and sepsis. Continue treatment as above. 10. COPD without exacerbation. 11. Chronic hypoxic respiratory failure recently weaned off oxygen. 12. Diabetes mellitus type 2. Patient started on Levemir 15 units at bedtime, NovoLog 5 units every 6 hours and NovoLog scale. 13. Benign prostatic hypertrophy with urinary retention and chronic Ramirez catheter. 14. Chronic kidney disease stage III with history of left-sided nephrectomy. Avoid nephrotoxic agents. 15. History of large retroperitoneal hematoma with acute blood loss, stable, 04/2021. 16. Chronic gout. Continue allopurinol 100 mg daily. 17. Recurrent depression. Hold Zoloft 50 mg at bedtime. 18. Generalized anxiety disorder. 19. Pressure ulcer coccyx and pressure ulcer penis, present on admission. Continue local wound care and offloading. 20. Failed swallow evaluation. Patient scheduled for modified barium swallow tomorrow. 21. GI prophylaxis. Protonix 40 mg IV push daily. 22. DVT prophylaxis. SCDs and JARRET hose. CODE STATUS: Full code. Prognosis guarded DISCHARGE PLAN Likely return to [facility] for subacute rehab. Impression and plan of care have been directed as dictated by the signing physician. Cindy Tobias nurse practitioner acting as scribe for signing physician. Objective - Vital Signs Vital signs: Vital Signs Temp 98.7 F 03/06/22 14:00 Pulse 97 03/06/22 14:00 Resp 16 03/06/22 14:00 BP 151/82 03/06/22 14:00 Pulse Ox 99 03/06/22 14:00 FiO2 Intake & Output 03/05/22 03/06/22 03/06/22 18:59 06:59 18:59 Intake Total 1886 2464 Output Total 500 Balance 1386 2464 Weight 91.5 kg 91.5 kg Intake: IV 200 Ampicillin-Sulbactam 3 gm 200 In Sodium Chloride 0.9% 100 ml @ 200 mls/hr IVPB Q12HR [facility]CLUDES THE [facility] Rx#:[id number] Intake, IV Titration 600 Amount Dextrose 5% in Water 1, 600 000 ml @ 75 mls/hr IV . [id number] COUNT INCLUDES THE [facility] Rx#:[id number] Tube Feeding 686 2144 Other 600 120 Output: Urine 500 Other: Voiding Method Indwelling Catheter Diaper Indwelling Catheter Incontinent Indwelling Catheter - Labs CBC & Chem 7: 03/04/22 05:38 03/05/22 11:16 Labs: Abnormal Lab Results - Last 24 Hours (Table) 03/05/22 03/05/22 03/05/22 Range/Units 16:21 20:33 22:13 POC Glucose (mg/dL) 190 H 224 H 243 H (70-110) mg/dL 03/06/22 03/06/22 03/06/22 Range/Units 00:08 04:05 07:24 POC Glucose (mg/dL) 229 H 210 H 155 H (70-110) mg/dL 03/06/22 Range/Units 11:40 POC Glucose (mg/dL) 134 H (70-110) mg/dL Microbiology - Last 24 Hours (Table) 02/28/22 16:35 Blood Culture - Preliminary Blood No Growth after 120 hours
--- NOTE | 2022-03-06 15:16 | P.PN ---
Subjective Patient is seen for follow-up for acute kidney injury. He also has underlying hypernatremia for which patient is maintained on D5W. Patient remains on feeding tube and is also receiving free water flushes. Urine output 900 mL for 24 hours Objective - Vital Signs Vital signs: Vital Signs Temp 98.7 F 03/06/22 14:00 Pulse 97 03/06/22 14:00 Resp 16 03/06/22 14:00 BP 151/82 03/06/22 14:00 Pulse Ox 99 03/06/22 14:00 FiO2 Intake & Output 03/05/22 03/06/22 03/06/22 18:59 06:59 18:59 Intake Total 1886 2464 Output Total 500 Balance 1386 2464 Weight 91.5 kg 91.5 kg Intake: IV 200 Ampicillin-Sulbactam 3 gm 200 In Sodium Chloride 0.9% 100 ml @ 200 mls/hr IVPB Q12HR [facility] Rx#:[id number] Intake, IV Titration 600 Amount Dextrose 5% in Water 1, 600 000 ml @ 75 mls/hr IV . [id number] [facility] Rx#:[id number] Tube Feeding 686 2144 Other 600 120 Output: Urine 500 Other: Voiding Method Indwelling Catheter Diaper Indwelling Catheter Incontinent Indwelling Catheter - Exam Awake, comfortable, no acute distress Patient has been coughing Maintained on feedings Patient is confused Examination of the heart S1 and S2 Examination of the lungs bilateral breath sounds are heard Abdomen is soft nontender Examination of the lower extremity shows no evidence of edema Patient does not follow commands - Labs CBC & Chem 7: 03/04/22 05:38 03/05/22 11:16 Labs: Abnormal Lab Results - Last 24 Hours (Table) 03/05/22 03/05/22 03/05/22 Range/Units 16:21 20:33 22:13 POC Glucose (mg/dL) 190 H 224 H 243 H (70-110) mg/dL 03/06/22 03/06/22 03/06/22 Range/Units 00:08 04:05 07:24 POC Glucose (mg/dL) 229 H 210 H 155 H (70-110) mg/dL 03/06/22 Range/Units 11:40 POC Glucose (mg/dL) 134 H (70-110) mg/dL Microbiology - Last 24 Hours (Table) 02/28/22 16:35 Blood Culture - Preliminary Blood No Growth after 120 hours Assessment and Plan Assessment: 1. Hyponatremia , improved with D5W 2. Chronic kidney disease stage III associated with solitary right kidney 3. Status post left nephrectomy 4. DKA status post insulin drip 5. Metabolic acidosis associated with acute kidney injury in DKA 6. UTI and possible pneumonia maintained on antibiotics. Urine culture positive for group D enterococcus. Patient is being followed by ID Plan: Continue D5W and free water flushes Repeat labs
[2022-03-06 16:18] LABS: African American GFR (CKD) 31 (>60 ml/min/1.73 sqM); Anion Gap 1 mmol/L; Blood Urea Nitrogen 77 mg/dL (9-20); Calcium 6.9 mg/dL (8.4-10.2); Carbon Dioxide 27 mmol/L (22-30); Chloride 111 mmol/L (98-107); Glucose 181 mg/dL (74-99); Non-African American GFR(CKD) 26 (>60 ml/min/1.73 sqM); Potassium 4.7 mmol/L (3.5-5.1); Sodium 139 mmol/L (137-145)
[2022-03-06 17:30] LABS: Glucose,Whole Blood 226 mg/dL (70-110)
[2022-03-06 19:01] LABS: Glucose,Whole Blood 217 mg/dL (70-110)
[2022-03-06] MEDS: guaiFENesin SYRUP 100MG/5ML 200 MG/10 ML CUP PO PRN (19:41)
[2022-03-06] MEDS ORDERED: FUROSEMIDE 10 MG/ML 4 ML VIAL IV STA (20:07)
[2022-03-06] MEDS: SERTRALINE 50 MG TAB PO SCH (21:07)
[2022-03-06] MEDS: INSULIN DETEMIR (LEVEMIR) 100 UNIT/ML SYR SQ SCH (21:08)
--- NOTE | 2022-03-06 23:57 | P.PN ---
Subjective Progress Note Date: 03/05/22 Principal diagnosis: Sepsis UTI/aspiration pneumonia Patient is an 87 year old male with multiple comorbidities who was sent to the ER from skilled nursing for a blood pressure and the patient was noticed to be lethargic and was concern for possible right lower lobe aspiration pneumonia as well as a UTI. On today's evaluation of 03/05/2022, The patient continues to be afebrile, the patient remains to be lethargic and not a good historian, no vomiting or diarrhea has been reported by nursing staff Objective - Vital Signs Vital signs: Vital Signs Temp 97.3 F L 03/05/22 13:41 Pulse 91 03/05/22 13:41 Resp 20 03/05/22 13:41 BP 108/65 03/05/22 13:41 Pulse Ox 96 03/05/22 13:41 FiO2 Intake & Output 03/04/22 03/05/22 03/05/22 18:59 06:59 18:59 Intake Total 1200 150 Output Total 900 500 Balance 1200 -900 -350 Weight 92.7 kg 92 kg Intake: Tube Feeding 600 150 Other 600 Output: Urine 900 500 Other: Voiding Method Indwelling Catheter Indwelling Catheter # Bowel Movements 2 - Exam GENERAL DESCRIPTION: An elderly male lying in bed in no distress RESPIRATORY SYSTEM: Unlabored breathing , decreased breath sounds at bases HEART: S1 S2 regular rate and rhythm , ABDOMEN: Soft , no tenderness EXTREMITIES: No edema feet - Labs CBC & Chem 7: 03/04/22 05:38 03/06/22 15:45 Labs: Abnormal Lab Results - Last 24 Hours (Table) 03/04/22 03/04/22 03/04/22 Range/Units 16:15 20:16 22:43 Chloride (98-107) mmol/L BUN (9-20) mg/dL Creatinine (0.66-1.25) mg/dL Glucose (74-99) mg/dL POC Glucose (mg/dL) 310 H 252 H 236 H (70-110) mg/dL Calcium (8.4-10.2) mg/dL 03/05/22 03/05/22 03/05/22 Range/Units 00:02 03:55 07:04 Chloride (98-107) mmol/L BUN (9-20) mg/dL Creatinine (0.66-1.25) mg/dL Glucose (74-99) mg/dL POC Glucose (mg/dL) 263 H 155 H 169 H (70-110) mg/dL Calcium (8.4-10.2) mg/dL 03/05/22 03/05/22 03/05/22 Range/Units 10:00 11:16 11:26 Chloride 117 H (98-107) mmol/L BUN 98 H (9-20) mg/dL Creatinine 2.47 H (0.66-1.25) mg/dL Glucose 164 H (74-99) mg/dL POC Glucose (mg/dL) 172 H 166 H (70-110) mg/dL Calcium 7.0 L (8.4-10.2) mg/dL Microbiology - Last 24 Hours (Table) 02/28/22 16:35 Blood Culture - Preliminary Blood No Growth after 96 hours Assessment and Plan (1) Pneumonia Current Visit: Yes Status: Acute Code(s): J18.9 - PNEUMONIA, UNSPECIFIED ORGANISM SNOMED Code(s): 168631983 (2) UTI (urinary tract infection) Current Visit: Yes Status: Acute Code(s): N39.0 - URINARY TRACT INFECTION, SITE NOT SPECIFIED SNOMED Code(s): 06840926 Plan: 1patient presented to hospital with weakness lethargy head this patient did hav e evidence of UTI and possible right-sided pneumonia in this patient being a skilled nursing resident will need to cover for resistant gram-negative with a likely pathogen. The patient urine however is currently showing enterococcus blood cultures have been negative so far sputum hasn't been collected 2 Patient clinical condition remains to be stable and will continue with the Unasyn and possible transition to oral antibiotics on discharge Time with Patient: Less than 30
--- NOTE | 2022-03-06 23:58 | P.PN ---
Subjective Progress Note Date: 03/06/22 Principal diagnosis: Sepsis UTI/aspiration pneumonia Patient is an 87 year old male with multiple comorbidities who was sent to the ER from retirement for a blood pressure and the patient was noticed to be lethargic and was concern for possible right lower lobe aspiration pneumonia as well as a UTI. On today's evaluation of 03/06/2022, The patient remains to be afebrile, the patient sleepy but arousable however not a good historian, no vomiting or diarrhea has been reported by nursing staff Objective - Vital Signs Vital signs: Vital Signs Temp 98.5 F 03/06/22 08:00 Pulse 91 03/06/22 08:00 Resp 18 03/06/22 08:00 BP 123/78 03/06/22 08:00 Pulse Ox 95 03/06/22 08:00 FiO2 Intake & Output 03/05/22 03/06/22 03/06/22 18:59 06:59 18:59 Intake Total 1886 856 Output Total 500 Balance 1386 856 Weight 91.5 kg Intake: IV 200 Ampicillin-Sulbactam 3 gm 200 In Sodium Chloride 0.9% 100 ml @ 200 mls/hr IVPB Q12HR [facility] Rx#:[id number] Intake, IV Titration 600 Amount Dextrose 5% in Water 1, 600 000 ml @ 75 mls/hr IV . [id number] [facility] Rx#:[id number] Tube Feeding 686 536 Other 600 120 Output: Urine 500 Other: Voiding Method Indwelling Catheter Diaper Indwelling Catheter Incontinent Indwelling Catheter - Exam GENERAL DESCRIPTION: An elderly male lying in bed in no distress RESPIRATORY SYSTEM: Unlabored breathing , decreased breath sounds at bases HEART: S1 S2 regular rate and rhythm , ABDOMEN: Soft , no tenderness EXTREMITIES: No edema feet - Labs CBC & Chem 7: 03/04/22 05:38 03/06/22 15:45 Labs: Abnormal Lab Results - Last 24 Hours (Table) 03/05/22 03/05/22 03/05/22 Range/Units 16:21 20:33 22:13 POC Glucose (mg/dL) 190 H 224 H 243 H (70-110) mg/dL 03/06/22 03/06/22 03/06/22 Range/Units 00:08 04:05 07:24 POC Glucose (mg/dL) 229 H 210 H 155 H (70-110) mg/dL 03/06/22 Range/Units 11:40 POC Glucose (mg/dL) 134 H (70-110) mg/dL Microbiology - Last 24 Hours (Table) 02/28/22 16:35 Blood Culture - Preliminary Blood No Growth after 120 hours Assessment and Plan (1) Pneumonia Current Visit: Yes Status: Acute Code(s): J18.9 - PNEUMONIA, UNSPECIFIED ORGANISM SNOMED Code(s): 659407956 (2) UTI (urinary tract infection) Current Visit: Yes Status: Acute Code(s): N39.0 - URINARY TRACT INFECTION, SITE NOT SPECIFIED SNOMED Code(s): 62127714 Plan: 1patient presented to hospital with weakness lethargy head this patient did have evidence of UTI and possible right-sided pneumonia in this patient being a retirement resident will need to cover for resistant gram-negative with a likely pathogen. The patient urine however is currently showing enterococcus blood cultures have been negative so far sputum hasn't been collected 2 Patient clinical condition remains to be borderline however no worsening respiratory status and will continue with the Unasyn and possible transition to oral antibiotics once his oral intake improves Time with Patient: Less than 30
[2022-03-07 00:13] LABS: Glucose,Whole Blood 154 mg/dL (70-110)
[2022-03-07] MEDS: AMPICILLIN-SULBACTAM 3 GM in SODIUM CHLORIDE 0.9% 100 ML IVPB SCH ×3 (00:40→22:34)
[2022-03-07] MEDS: guaiFENesin SYRUP 100MG/5ML 200 MG/10 ML CUP PO PRN (00:53)
[2022-03-07] MEDS: INSULIN ASPART (NovoLOG) 100 UNIT/ML VIAL SQ SCH ×11 (00:53→22:41)
--- NOTE | 2022-03-07 01:57 | XR ---
EXAMINATION TYPE: XR chest 1V portable DATE OF EXAM: 03/07/2022 COMPARISON: 03/04/2022 HISTORY: Single view TECHNIQUE: FINDINGS: There is pulmonary interstitial and airspace edema. Heart is not grossly enlarged. There is minimal b lunting of the costophrenic angles. Bony thorax is intact. IMPRESSION: Pulmonary edema consistent with congestive heart failure which is increased compared to r ecent exam.
[2022-03-07 06:00] LABS: Glucose,Whole Blood 72 mg/dL (70-110)
[2022-03-07 06:00] LABS: Glucose,Whole Blood 63 mg/dL (70-110)
[2022-03-07] MEDS ORDERED: DEXTROSE 50% SYRINGE 50 ML IVP STA (06:01)
[2022-03-07] MEDS ORDERED: DEXTROSE 50% SYRINGE 50 ML IVP ONE (06:03)
[2022-03-07] MEDS ORDERED: FUROSEMIDE 10 MG/ML 10 ML VIAL IV STA (06:27)
[2022-03-07 06:33] LABS: Glucose,Whole Blood 159 mg/dL (70-110)
[2022-03-07] MEDS: PANTOPRAZOLE 40 MG/10 ML VIAL IVP SCH (07:03)
[2022-03-07] MEDS: allopurinoL 100 MG TAB PO SCH (07:04)
[2022-03-07] MEDS: METOPROLOL TARTRATE 12.5 MG TAB PO SCH ×3 (07:04→22:47)
[2022-03-07] MEDS: FERROUS SULFATE 325 MG TAB PO SCH (07:04)
[2022-03-07 09:21] LABS: African American GFR (CKD) 27.1 (60.0-200.0); Albumin 2.1 g/dL (3.8-4.9); Albumin/Globulin Ratio 0.78 (1.60-3.17); Anion Gap 9.7 mmol/L (10.00-18.00); BUN/Creat Ratio 30.17 Ratio (12.00-20.00); Blood Urea Nitrogen 72.4 mg/dL (9.0-27.0); Calcium 7.3 mg/dL (8.7-10.3); Carbon Dioxide 23.3 mmol/L (20.0-27.5); Globulin 2.7 g/dL (1.6-3.3); Non-African American GFR(CKD) 23.4 (60.0-200.0); Potassium 4.4 mmol/L (3.5-5.5); Total Bilirubin 0.2 mg/dL (0.30-1.20); Total Protein 4.8 g/dL (6.2-8.2)
[2022-03-07 09:38] LABS: HCT 25.3 % (39.6-50.0); HGB 7.6 g/dL (13.0-17.0); MCH 28.8 pg (27.0-32.0); MCV 95.8 fL (80.0-97.0); NRBC Per 100 WBC 0 /100 WBCS (0.0-0.0); Platelet Count 71 X 10*3/uL (140-440); RBC 2.64 X 10*6/uL (4.40-5.60); RDW 15.3 % (11.5-14.5); WBC 10.91 X 10*3/uL (4.50-10.00)
--- NOTE | 2022-03-07 11:25 | P.PN ---
Subjective Progress Note Date: 03/07/22 Principal diagnosis: Weakness, hypernatremia, altered mental status, diabetic ketoacidosis, suspected aspiration pneumonia, acute UTI This is an 87-year-old white male with history of multiple comorbidities, patient was brought yesterday by EMS from the nursing facility with mostly complaints of low blood pressure and the patient has been noted to be lethargic. Patient had previous history of documented coronary artery disease, history of intracranial hemorrhage/subdural hematoma, chronic atrial fibrillation, hypertension, diabetes. Patient is not a great historian, apparently when he arrived to the ER, patient was found to have multiple abnormal labs including blood sugar over 500 anion gap metabolic acidosis hypernatremia with sodium of 160 acute kidney injury with BUN of 169 and creatinine 4.75, abnormal urinalysis, and abnormal chest x-ray suggestive of right lower lobe pneumonia questionable aspiration pneumonia considering the patient's overall mental stat us patient was obviously septic, and dehydrated upon his initial presentation. He received fluid boluses, blood pressure responded to fluid boluses but the patient did not require to be placed on pressors. Patient was placed empirically on antibiotics for presumptive pneumonia and possible urinary tract infection he was placed on the DKA protocol, and when the ER physician discussed the case with me I recommended definite admission to the ICU. Saw the patient this morning, remains on insulin drip at 1 unit per hour. His IV fluid was transitioned from 0.9 normal saline to D5W at 200 mL per hour. Patient is making urine around 50 mL per hour. More fluid boluses were given this morning. And we are closely monitoring his electrolytes and renal profile sodium remains relatively elevated at 160. However his anion gap corrected nicely and his anion gap this morning is 10. Bicarb is 18. Renal profile showed slight improvement since yesterday on admission ABG on admission showed a pO2 of 88 pCO2 31 pH of 7.37 and this was on the percent FiO2 in the ER. Presently the patient is on nasal cannula at 4 L/m and O2 saturations 93% cultures are pending patient remains on Zosyn and I discontinued his cefepime and vancomycin. Reevaluated today on 03/02/2022, patient remains in the ICU, she is on 2 L nasal cannula, O2 sats is 96%. Patient continues to be relatively lethargic, continues to have significant non-anion gap metabolic acidosis, placed on bicarb drip at 150 mL per hour. Continues to have hypernatremia however the sodium is improving and today I recommended free water flushes through a nasogastric tube to be placed mode every 4 nutritional support and also for free water flushes. Patient remains to have significant free water deficit with relatively high sodium. Mentation remains poor, patient is lethargic, arousable, unable to swallow on his own. Hence I feel it would be best to start enteral feeding via nasogastric tube today. He has a very poor appetite, and does not seem to swallow well. Remains in atrial fibrillation with controlled rate. Denies any shortness of breath cough wheezing denies any nausea vomiting or abdominal pain. Sodium today is 153 bicarb is 16 anion gap is 10 and BUN is 149 and creatinine 3.72. Reevaluated today on 03/03/2022, patient remains in the ICU, he is doing much better today compared to the last couple of days. His sodium has corrected nicely is down to 147 today. His bicarb also corrected nicely and he is off bic arb drip. Patient is on 4 L nasal cannula with O2 sats of 93%. His IV fluid is D5 4 5 at 75 mL/h and I have cut down his free water flushes to 200 mL every 6 hours via nasogastric tube. Patient is also receiving enteral feeding. Patient is awake but remains confused. Today I plan to transfer the patient out of the ICU, he can go to a regular medical floor, he will need to have swallow evaluat ion and may even have to consider a PEG tube placement if he failed the swallow evaluation. In the meantime we are continuing his antibiotics for presumptive sepsis and aspiration pneumonia. CBC today is relatively unremarkable. His BUN is down to 125 creatinine is down to 3.27. And sodium is 147 bicarb is 23. On 03/04/2022 patient seen in follow-up on medical surgical floor, he was transferred out of intensive care unit yesterday, he is much more awake and responsive on today's exam, he still confused, but appears to be in no distress, breathing comfortably, FiO2 is 4 L pulse ox is 96%, afebrile, blood pressures stable. NG tube remains in place the patient has Jevity infusing at a rate of 40 ML per hour, with 300 mL free water flushes every 6 hours. In addition patient remains on D5W at a rate of 75 ML per hour, he is on Unasyn for urine checked infection related to enterococcus faecalis. No nausea or vomiting, no diarrhea, abdomen is soft. Follow-up chest x-ray today shows chronic changes, with bibasilar opacities with slight worsening at the left lung base. Clinically patient denies any worsening dyspnea no cough, no chest congestion or chest pain. Today's labs have been reviewed, white blood cell count of 6.3, hemoglobin is 8.1, sodium today is 149, potassium is 4.1, BUN is 103, creatinine 3.2 renal profile is improving On 03/05/2022 patient seen in follow-up on medical surgical floor. He is awake and alert, he is oriented to person only, disoriented to place and time. Denies any acute distress, no complaints of shortness of breath or cough, no chest discomfort, he remains on D5W at 75 ML per hour, NG tube remains in place with Jevity infusing at 67 ML per hour and free water flushes. His been afebrile. He remains on Unasyn for enterococcus faecalis urinary tract infection. No fever or chills. He was seen by speech therapy and evaluation, and the recommendation has been made to continue with tube feedings for now as the patient's been noted to have increased congestion, and wet voice during the speech evaluation. However his level of consciousness significantly improved since admission. On 03/06/2020 patient seen in follow-up on an apical surgical floor. He is lethargic on today's exam, but does wake up to verbal stimulation, seems com fortable, no evidence of any respiratory difficulty, he remains on 4 L of oxygen pulse ox is 95-90%, vital signs have been stable, no fever or chills, he remains on Unasyn for Enterococcus faecalis urinary tract infection. NG tube remains in place and tube feedings in the form of Jevity solution is infusing at a rate of 67 ML per hour, and patient remains on 300 mL free water flushes every 6 hours. In addition patient remains on D5W at a rate of 75 ML per hour, nephrology is following, today's labs are still pending for today, but yesterday's labs showed improving serum sodium which is down to 145, potassium is 4.6, renal profile was noted to be improving, BUN was down to 98, creatinine was 2.47. The patient is seen today 03/07/2022 in follow-up on the regular medical floor. He is currently resting in bed. He is maintaining O2 saturations in the 90s on 3 L/m per nasal cannula. He has pulled out his nasogastric tube twice. Jevity currently on hold. Receiving D5W at 20 ML's per hour. All of chest x-ray reveals pulmonary edema consistent with congestive heart failure which is increased compared to previous exam. He did receive Lasix 60 mg IVP 1 yesterday. Currently in a -1.8 L balance. White count 10.1. Hemoglobin 7.6. Platelet count 71,000. Sodium 143. Potassium 4.4. BUN 72. Creatinine 2.4. Glucose 159. AST 66. ALT 51. Urine culture positive for Enterococcus faecalis. He remains on Unasyn. Objective - Vital Signs Vital signs: Vital Signs Temp 97.7 F 03/07/22 08:00 Pulse 96 03/07/22 08:00 Resp 20 03/07/22 08:00 BP 119/68 03/07/22 08:00 Pulse Ox 94 L 03/07/22 08:00 FiO2 Intake & Output 03/06/22 03/07/22 03/07/22 18:59 06:59 18:59 Intake Total 2464 Output Total 1800 1850 Balance 2464 -1800 -1850 Weight 91.5 kg 92 kg Intake: IV 200 Ampicillin-Sulbactam 3 gm 200 In Sodium Chloride 0.9% 100 ml @ 200 mls/hr IVPB Q12HR [facility] Rx#:[id number] Tube Feeding 2144 Other 120 Output: Urine 1800 1850 Other: Voiding Method Indwelling Catheter Indwelling Catheter - Exam GENERAL EXAM: Sleepy but does wake up to voice, 87-year-old male, confused, oriented to self, on 3 L of oxygen pulse ox is 94% comfortable in no apparent distress. HEAD: Normocephalic/atraumatic. EYES: Normal reaction of pupils, equal size. Conjunctiva pink, sclera white. NOSE: Clear with pink turbinates. THROAT: No erythema or exudates. NECK: No masses, no JVD, no thyroid enlargement, no adenopathy. CHEST: No chest wall deformity. Symmetrical expansion. LUNGS: Equal air entry with bibasilar crackles, scattered rhonchi. CVS: Regular rate and rhythm, normal S1 and S2, no gallops, no murmurs, no rubs ABDOMEN: Soft, nontender. No hepatosplenomegaly, normal bowel sounds, no guarding or rigidity. EXTREMITIES: No clubbing, no edema, no cyanosis, 2+ pulses and upper and lower extremities. MUSCULOSKELETAL: Muscle strength and tone normal. SPINE: No scoliosis or deformity SKIN: No rashes CENTRAL NERVOUS SYSTEM: Alert and oriented -1. No focal deficits, tone is normal in all 4 extremities. PSYCHIATRIC: Alert and oriented -1. Appropriate affect. Intact judgment and insight. - Labs CBC & Chem 7: 03/07/22 05:02 03/07/22 05:02 Labs: Abnormal Lab Results - Last 24 Hours (Table) 03/06/22 03/06/22 03/06/22 Range/Units 11:40 15:45 17:28 WBC (4.50-10.00) X 10*3/uL RBC (4.40-5.60) X 10*6/uL Hgb (13.0-17.0) g/dL Hct (39.6-50.0) % MCHC (32.0-37.0) g/dL RDW (11.5-14.5) % Plt Count (140-440) X 10*3/uL Immature Plt Fraction (1.1-6.1) % Chloride 111 H (98-107) mmol/L Anion Gap (10.00-18.00) mmol/L BUN 77 H (9-20) mg/dL Creatinine 2.17 H (0.66-1.25) mg/dL Est GFR (CKD-EPI)AfAm (60.0-200.0) Est GFR (CKD-EPI)NonAf (60.0-200.0) BUN/Creatinine Ratio (12.00-20.00) Ratio Glucose 181 H (74-99) mg/dL POC Glucose (mg/dL) 134 H 226 H (70-110) mg/dL Calcium 6.9 L (8.4-10.2) mg/dL Total Bilirubin (0.30-1.20) mg/dL AST (14-35) U/L ALT (10-49) U/L Total Protein (6.2-8.2) g/dL Albumin (3.8-4.9) g/dL Albumin/Globulin Ratio (1.60-3.17) g/dL 03/06/22 03/07/22 03/07/22 Range/Units 19:00 00:11 05:02 WBC 10.91 H (4.50-10.00) X 10*3/uL RBC 2.64 L (4.40-5.60) X 10*6/uL Hgb 7.6 L (13.0-17.0) g/dL Hct 25.3 L (39.6-50.0) % MCHC 30.0 L (32.0-37.0) g/dL RDW 15.3 H (11.5-14.5) % Plt Count 71 L (140-440) X 10*3/uL Immature Plt Fraction 22.0 H (1.1-6.1) % Chloride (98-107) mmol/L Anion Gap (10.00-18.00) mmol/L BUN (9-20) mg/dL Creatinine (0.66-1.25) mg/dL Est GFR (CKD-EPI)AfAm (60.0-200.0) Est GFR (CKD-EPI)NonAf (60.0-200.0) BUN/Creatinine Ratio (12.00-20.00) Ratio Glucose (74-99) mg/dL POC Glucose (mg/dL) 217 H 154 H (70-110) mg/dL Calcium (8.4-10.2) mg/dL Total Bilirubin (0.30-1.20) mg/dL AST (14-35) U/L ALT (10-49) U/L Total Protein (6.2-8.2) g/dL Albumin (3.8-4.9) g/dL Albumin/Globulin Ratio (1.60-3.17) g/dL 03/07/22 03/07/22 03/07/22 Range/Units 05:02 05:49 06:31 WBC (4.50-10.00) X 10*3/uL RBC (4.40-5.60) X 10*6/uL Hgb (13.0-17.0) g/dL Hct (39.6-50.0) % MCHC (32.0-37.0) g/dL RDW (11.5-14.5) % Plt Count (140-440) X 10*3/uL Immature Plt Fraction (1.1-6.1) % Chloride 110 H (98-107) mmol/L Anion Gap 9.70 L (10.00-18.00) mmol/L BUN 72.4 H (9-20) mg/dL Creatinine 2.4 H (0.66-1.25) mg/dL Est GFR (CKD-EPI)AfAm 27.1 L (60.0-200.0) Est GFR (CKD-EPI)NonAf 23.4 L (60.0-200.0) BUN/Creatinine Ratio 30.17 H (12.00-20.00) Ratio Glucose 60 L (74-99) mg/dL POC Glucose (mg/dL) 63 L 159 H (70-110) mg/dL Calcium 7.3 L (8.4-10.2) mg/dL Total Bilirubin 0.20 L (0.30-1.20) mg/dL AST 66 H (14-35) U/L ALT 51 H (10-49) U/L Total Protein 4.8 L (6.2-8.2) g/dL Albumin 2.1 L (3.8-4.9) g/dL Albumin/Globulin Ratio 0.78 L (1.60-3.17) g/dL Microbiology - Last 24 Hours (Table) 02/28/22 16:35 Blood Culture - Final Blood No Growth after 144 hours Assessment and Plan Assessment: 1 Acute sepsis related to possible aspiration pneumonia, and urinary tract infection with urine culture positive for enterococcus faecalis, currently on Unasyn 2 Altered mental status related to the above, improved 3 Acute on chronic kidney disease, patient has a history of chronic disease stage IIIa and as solitary right kidney, renal function is improving #4. Free water deficit with hyper nature anemia, significantly improved, patient remains on free water flushes via NG tube and D5W at a rate of 75 ML per hour 4 Profound dehydration secondary to the above, improving 5 History of Alzheimer's dementia 6 Acute aspiration pneumonia 7 Chronic urinary tract infection group D enterococcus on Unasyn Plan: The patient was seen and evaluated Chest x-ray, medications and labs reviewed Received additional Lasix today, remains in a negative balance He has removed his NG tube 2 Plan may be for PEG tube placement CODE STATUS should be addressed Continue aspiration precaution We will continue to follow I have personally seen and examined the patient, performed the documentation and the assessment and plan as written. Number of minutes spent on the visit: 10.
[2022-03-07 11:38] LABS: Glucose,Whole Blood 102 mg/dL (70-110)
--- NOTE | 2022-03-07 13:22 | FL ---
Modified barium swallow. HISTORY: Dysphagia. Modified barium swallow was performed with the department of speech pathology. The patient was prese nted with various consistencies of barium. Examination is limited given overall patient condition. There is evidence of aspiration with thin and nectar thick barium. Full report is to follow from the department of speech pathology. Impression: As above
--- NOTE | 2022-03-07 14:19 | P.PN ---
Subjective Progress Note Date: 03/07/22 HISTORY OF PRESENT ILLNESS This is an 87-year-old male patient of Dr. Hurd with past medical history of Parkinsons disease, Alzheimers dementia, diabetes mellitus type 2, chronic atrial fibrillation not on anticoagulation due to retroperitoneal hematoma, history of pneumonia, benign prostatic hypertrophy, chronic kidney disease with history of left-sided nephrectomy, history of large retroperitoneal hematoma 04/2021, history of aspiration pneumonia. Patient was hospitalized at [facility] due to failure to thrive increasing weakness and difficulty ambulatingfor 2 weeks and progressively worsening. Patient was treated for UTI and streptococcal bacteremia seen by infectious disease thought this was a contamination. Echocardiogram did not show any abnormalities stafford spicious for endocarditis. ID recommended a short course of Ceftin and patient was discharged to [facility] for subacute rehab. Patient was subsequently admitted for A. fib RVR and aspiration pneumonia. He was stabilized and discharged back to [facility] for subacute rehab. Upon his return, patient has been more weak, less involved in his care then prior admissions yesterday, patient was transferred to [facility] emergency center due to altered mental status and hypotension. Patient was found to be afebrile, heart rate 122, respiratory rate 26, blood pressure 89/59, pulse ox 91% on nonrebreather. EKG was atrial fibrillation with RVR with a ventricular rate of 123. WBC 5.2, hemoglobin 10.5, platelet count 152. Sodium 160, potassium 5, chloride 125, CO2 18, anion gap 17, BUN 176, creatinine 4.9. Blood sugar 515. Lactic acid 3.2. Calcium 8.9. Magnesium 3.1. Total bilirubin 0.5, AST 13 ALT 15, alkaline phosphatase 79. Urinalysis cloudy, glucose 3+, blood small, leukoe sterase large, WBCs 103. Acetone positive Chest x-ray revealed infiltrate right lower lung CAT scan of the abdomen and pelvis without contrast revealed no evidence of retroperitoneal hematoma. Bibasilar pneumonia, correlate for aspiration. Correlate for hemorrhagic material within the urinary bladder. Urinary bladder wall thickening. CAT scan of the brain revealed age-related atrophy and chronic small vessel ischemic change without acute intracranial process. Stable chronic right sided subdural collection. No acute intracranial hemorrhage. 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 03/04: Patient is seen on the [facility] floor. He had an NG tube placed over the weekend and receiving Jevity at 40 ML's poor hour +300 ML's of water every 6 ho urs. Patient is on Unasyn for aspiration pneumonia. Patient is followed by pulmonary medicine, infectious disease and nephrology. Blood work today reveals WBC 6.2, hemoglobin 8.1 and platelet count of 80. Sodium 149, potassium 4.1, chloride 117, CO2 22, BUN 103 and creatinine 3.2. Capillary blood glucose running between 214 and 284. Urine culture was finalized with Enterococcus faecalis. IV fluids have been switched to D5W. Patient will be started on Levemir 15 units at bedtime, scheduled NovoLog 5 units every 6 hours and continue NovoLog scale. 03/05: Patient is slightly more alert today. He has been afebrile, heart rate 109, blood pressure 118/79, pulse ox 97% on 4 L nasal cannula. Repeat blood work reveals BUN 98 and creatinine 2.47, chloride 117, potassium 4.6. Capillary blood glucose running between 155 and 172. Patient is followed by pulmonary medicine, nephrology. Patient is continued on NG tube feedings with Jevity and free water flushes. 03/06: Patient has been evaluated by speech therapy at the bedside and has failed, worse than last week. Patient scheduled for modified barium swallow for tomorrow but suspect he most likely will require PEG tube placement. Dr. Cazares is making another attempt to contact patient's son. Patient has been afebrile, heart rate 97, blood pressure 151/82, pulse ox 99% on 4 L nasal cannula. Capillary blood glucose running between 134 and 229. Repeat blood work ordered for tomorrow. The patient is currently on feeding tubes at goal along with free water flushes. Ramirez catheter remains in place. He does have chronic Ramirez. 03/07: patient remains lethargic. He underwent modified barium swallow today and failed. Family will need to determine if they wish to go with a PEG tube or make patient comfort care. patient has had 2 NG tube removed by patient. Patient received Lasix yesterday forfluid overload and has had good urine output. Less edema today. Repeat blood work reveals WBC 10.9, hemoglobin 7.6 and platelet count 71. BUN 72 creatinine 2.4. With blood glucose this morning was 60. AST 66, ALT 51, alkaline phosphatase 70. REVIEW OF SYSTEMS Constitutional: No fever, no chills, no night sweats. No weight change. Noted weakness, noted fatigue no lethargy. Noted daytime sleepiness. EENT: No headache. No blurred vision or double vision, no loss of vision. No loss of Hearing, no ringingin the ears, no dizziness. No nasal drainage or congestion. No epistaxis. No sore throat. Lungs: + complaints of shortness of breath, + cough, no sputum production. No wheezing. Cardiovascular: No chest pain, no lower extremity edema. No palpitations. No paroxysmal nocturnal dyspnea. No orthopnea. No lightheadedness or dizziness. No syncopal episodes. Abdominal: No abdominal pain. No nausea, vomiting. No diarrhea. No constipation. No bloody or tarry stools. No loss of appetite. Genitourinary: No dysuria, increased frequency, urgency. No urinary retention. Musculoskeletal: No myalgias. No muscle weakness, reported gait dysfunction, no frequent falls. No back pain. No neck pain. Integumentary: No wounds, no lesions. No rash or pruritus. No unusual bruising. No change in hair or nails. Neurologic: No aphasia. No facial droop. Noted change in mentationcontinues. No head injury. No headache. No paralysis. No paresthesia. Psychiatric: Presumed depression. No anxiety. No mood swings. Endocrine: No abnormal blood sugars. No weight change. No excessive sweating or thirst. PHYSICAL EXAMINATION Gen: This is an 87-year-old male. He is resting in bed and appears to be comfortable. No respiratory distress is noted. HEENT: Head is atraumatic, normocephalic. Pupils equal, round. Sclerae is anicteric. NECK: Supple. No JVD. No lymphadenopathy. No thyromegaly. LUNGS: Decreased breath sounds bilaterally with a few scattered rhonchi. No intercostal retractions. +coughing HEART: Irregular rate and rhythm. 2/6 systolic murmur. ABDOMEN: Soft. Bowel sounds are present. No masses. No tenderness. Ramirez draining vincenzo urine with seiment. EXTREMITIES: No pedal edema. No calf tenderness. NEUROLOGICAL: Patient is lethargic, generalized weakness. ASSESSMENT AND PLAN 1. Acute sepsis and septic shock secondary to aspiration pneumonia and Ramirez catheter associated urinary tract infection. Continue patient management on the MedSur unit, pulmonary consult appreciated, patient is on Unasyn per infectious disease. Urine culture positive for Enterococcus faecalis. 2. Acute kidney injury secondary to hypovolemia and infection. Consult with nephrology appreciated. Patient is on D5W. 3. Hypernatremia due to poor oral water intake. Continue D5W at 75 ML's per hour. 4. DKA, diabetes mellitus type 2. Continue patient on Levemir 15 units at bedtime, NovoLog 5 units every 6 hours and scale. 5. Metabolic acidosis secondary to acute kidney injury and DKA. 6. Anemia of chronic disease. continue Aranesp 40 g subcu every 7 days, ferrous sulfate 325 mg daily. 7. A. fib with RVR. Patient started on Lopressor 12.5 mg twice daily No plan to start on anticoagulation due to previous bleeding. 8. Chronic atrial fibrillation not on anticoagulation due to retroperitoneal hematoma. 9. Metabolic encephalopathy secondary to pneumonia, UTI and sepsis. Continue treatment as above. 10. COPD without exacerbation. 11. Chronic hypoxic respiratory failure recently weaned off oxygen. 12. Diabetes mellitus type 2. Patient started on Levemir 15 units at bedtime, NovoLog 5 units every 6 hours and NovoLog scale. 13. Benign prostatic hypertrophy with urinary retention and chronic Ramirez catheter. 14. Chronic kidney disease stage III with history of left-sided nephrectomy. Avoid nephrotoxic agents. 15. History of large retroperitoneal hematoma with acute blood loss, stable, 04/2021. 16. Chronic gout. Continue allopurinol 100 mg daily. 17. Recurrent depression. Hold Zoloft 50 mg at bedtime. 18. Generalized anxiety disorder. 19. Pressure ulcer coccyx and pressure ulcer penis, present on admission. Continue local wound care and offloading. 20. Failed swallow evaluation and severe protein calorie malnutrition. Family will need to decide if they want to pursue PEG or comfort care. 21. GI prophylaxis. Protonix 40 mg IV push daily. 22. DVT prophylaxis. SCDs and JARRET hose. CODE STATUS: Full code. Prognosis guarded DISCHARGE PLAN Likely return to [facility] for subacute rehab. Impression and plan of care have been directed as dictated by the signing physician. Cindy Tobias nurse practitioner acting as scribe for signing ph ysician. Objective - Vital Signs Vital signs: Vital Signs Temp 97.7 F 03/07/22 08:00 Pulse 96 03/07/22 08:00 Resp 20 03/07/22 08:00 BP 119/68 03/07/22 08:00 Pulse Ox 94 L 03/07/22 08:00 FiO2 Intake & Output 03/06/22 03/07/22 03/07/22 18:59 06:59 18:59 Intake Total 2464 Output Total 1800 1850 Balance 2464 -1800 -1850 Weight 91.5 kg 92 kg Intake: IV 200 Ampicillin-Sulbactam 3 gm 200 In Sodium Chloride 0.9% 100 ml @ 200 mls/hr IVPB Q12HR [facility] Rx#:[id number] Tube Feeding 2144 Other 120 Output: Urine 1800 1850 Other: Voiding Method Indwelling Catheter Indwelling Catheter - Labs CBC & Chem 7: 03/07/22 05:02 03/07/22 05:02 Labs: Abnormal Lab Results - Last 24 Hours (Table) 03/06/22 03/06/22 03/06/22 Range/Units 15:45 17:28 19:00 WBC (4.50-10.00) X 10*3/uL RBC (4.40-5.60) X 10*6/uL Hgb (13.0-17.0) g/dL Hct (39.6-50.0) % MCHC (32.0-37.0) g/dL RDW (11.5-14.5) % Plt Count (140-440) X 10*3/uL Immature Plt Fraction (1.1-6.1) % Chloride 111 H (98-107) mmol/L Anion Gap (10.00-18.00) mmol/L BUN 77 H (9-20) mg/dL Creatinine 2.17 H (0.66-1.25) mg/dL Est GFR (CKD-EPI)AfAm (60.0-200.0) Est GFR (CKD-EPI)NonAf (60.0-200.0) BUN/Creatinine Ratio (12.00-20.00) Ratio Glucose 181 H (74-99) mg/dL POC Glucose (mg/dL) 226 H 217 H (70-110) mg/dL Calcium 6.9 L (8.4-10.2) mg/dL Total Bilirubin (0.30-1.20) mg/dL AST (14-35) U/L ALT (10-49) U/L Total Protein (6.2-8.2) g/dL Albumin (3.8-4.9) g/dL Albumin/Globulin Ratio (1.60-3.17) g/dL 03/07/22 03/07/22 03/07/22 Range/Units 00:11 05:02 05:02 WBC 10.91 H (4.50-10.00) X 10*3/uL RBC 2.64 L (4.40-5.60) X 10*6/uL Hgb 7.6 L (13.0-17.0) g/dL Hct 25.3 L (39.6-50.0) % MCHC 30.0 L (32.0-37.0) g/dL RDW 15.3 H (11.5-14.5) % Plt Count 71 L (140-440) X 10*3/uL Immature Plt Fraction 22.0 H (1.1-6.1) % Chloride 110 H (98-107) mmol/L Anion Gap 9.70 L (10.00-18.00) mmol/L BUN 72.4 H (9-20) mg/dL Creatinine 2.4 H (0.66-1.25) mg/dL Est GFR (CKD-EPI)AfAm 27.1 L (60.0-200.0) Est GFR (CKD-EPI)NonAf 23.4 L (60.0-200.0) BUN/Creatinine Ratio 30.17 H (12.00-20.00) Ratio Glucose 60 L (74-99) mg/dL POC Glucose (mg/dL) 154 H (70-110) mg/dL Calcium 7.3 L (8.4-10.2) mg/dL Total Bilirubin 0.20 L (0.30-1.20) mg/dL AST 66 H (14-35) U/L ALT 51 H (10-49) U/L Total Protein 4.8 L (6.2-8.2) g/dL Albumin 2.1 L (3.8-4.9) g/dL Albumin/Globulin Ratio 0.78 L (1.60-3.17) g/dL 03/07/22 03/07/22 Range/Units 05:49 06:31 WBC (4.50-10.00) X 10*3/uL RBC (4.40-5.60) X 10*6/uL Hgb (13.0-17.0) g/dL Hct (39.6-50.0) % MCHC (32.0-37.0) g/dL RDW (11.5-14.5) % Plt Count (140-440) X 10*3/uL Immature Plt Fraction (1.1-6.1) % Chloride (98-107) mmol/L Anion Gap (10.00-18.00) mmol/L BUN (9-20) mg/dL Creatinine (0.66-1.25) mg/dL Est GFR (CKD-EPI)AfAm (60.0-200.0) Est GFR (CKD-EPI)NonAf (60.0-200.0) BUN/Creatinine Ratio (12.00-20.00) Ratio Glucose (74-99) mg/dL POC Glucose (mg/dL) 63 L 159 H (70-110) mg/dL Calcium (8.4-10.2) mg/dL Total Bilirubin (0.30-1.20) mg/dL AST (14-35) U/L ALT (10-49) U/L Total Protein (6.2-8.2) g/dL Albumin (3.8-4.9) g/dL Albumin/Globulin Ratio (1.60-3.17) g/dL Microbiology - Last 24 Hours (Table) 02/28/22 16:35 Blood Culture - Final Blood No Growth after 144 hours
[2022-03-07 16:39] LABS: Glucose,Whole Blood 128 mg/dL (70-110)
[2022-03-07] MEDS: SERTRALINE 50 MG TAB PO SCH ×2 (22:34→22:47)
[2022-03-07] MEDS: INSULIN DETEMIR (LEVEMIR) 100 UNIT/ML SYR SQ SCH (22:37)
[2022-03-07 22:55] LABS: Glucose,Whole Blood 144 mg/dL (70-110)
[2022-03-07] MEDS: DEXTROSE 5% IN WATER 1,000 ML IV SCH (23:13)
[2022-03-07 23:22] LABS: Glucose,Whole Blood 159 mg/dL (70-110)
[2022-03-08 06:07] LABS: Glucose,Whole Blood 65 mg/dL (70-110)
[2022-03-08] MEDS: INSULIN ASPART (NovoLOG) 100 UNIT/ML VIAL SQ SCH ×5 (06:07→23:56)
[2022-03-08 09:50] LABS: Glucose,Whole Blood 55 mg/dL (70-110)
[2022-03-08] MEDS ORDERED: DEXTROSE 50% SYRINGE 50 ML IVP ONE ×2 (09:56→13:08)
[2022-03-08 10:07] LABS: Glucose,Whole Blood 127 mg/dL (70-110)
--- NOTE | 2022-03-08 10:32 | P.PN ---
Subjective Progress Note Date: 03/08/22 HISTORY OF PRESENT ILLNESS This is an 87-year-old male patient of Dr. Hurd with past medical history of Parkinsons disease, Alzheimers dementia, diabetes mellitus type 2, chronic atrial fibrillation not on anticoagulation due to retroperitoneal hematoma, history of pneumonia, benign prostatic hypertrophy, chronic kidney disease with history of left-sided nephrectomy, history of large retroperitoneal hematoma 04/2021, history of aspiration pneumonia. Patient was hospitalized at [facility] due to failure to thrive increasing weakness and difficulty ambulatingfor 2 weeks and progressively worsening. Patient was treated for UTI and streptococcal bacteremia seen by infectious disease thought this was a contamination. Echocardiogram did not show any abnormalities stafford spicious for endocarditis. ID recommended a short course of Ceftin and patient was discharged to [facility] for subacute rehab. Patient was subsequently admitted for A. fib RVR and aspiration pneumonia. He was stabilized and discharged back to [facility] for subacute rehab. Upon his return, patient has been more weak, less involved in his care then prior admissions yesterday, patient was transferred to [facility] emergency center due to altered mental status and hypotension. Patient was found to be afebrile, heart rate 122, respiratory rate 26, blood pressure 89/59, pulse ox 91% on nonrebreather. EKG was atrial fibrillation with RVR with a ventricular rate of 123. WBC 5.2, hemoglobin 10.5, platelet count 152. Sodium 160, potassium 5, chloride 125, CO2 18, anion gap 17, BUN 176, creatinine 4.9. Blood sugar 515. Lactic acid 3.2. Calcium 8.9. Magnesium 3.1. Total bilirubin 0.5, AST 13 ALT 15, alkaline phosphatase 79. Urinalysis cloudy, glucose 3+, blood small, leukoe sterase large, WBCs 103. Acetone positive Chest x-ray revealed infiltrate right lower lung CAT scan of the abdomen and pelvis without contrast revealed no evidence of retroperitoneal hematoma. Bibasilar pneumonia, correlate for aspiration. Correlate for hemorrhagic material within the urinary bladder. Urinary bladder wall thickening. CAT scan of the brain revealed age-related atrophy and chronic small vessel ischemic change without acute intracranial process. Stable chronic right sided subdural collection. No acute intracranial hemorrhage. 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 03/04: Patient is seen on the [facility] floor. He had an NG tube placed over the weekend and receiving Jevity at 40 ML's poor hour +300 ML's of water every 6 ho urs. Patient is on Unasyn for aspiration pneumonia. Patient is followed by pulmonary medicine, infectious disease and nephrology. Blood work today reveals WBC 6.2, hemoglobin 8.1 and platelet count of 80. Sodium 149, potassium 4.1, chloride 117, CO2 22, BUN 103 and creatinine 3.2. Capillary blood glucose running between 214 and 284. Urine culture was finalized with Enterococcus faecalis. IV fluids have been switched to D5W. Patient will be started on Levemir 15 units at bedtime, scheduled NovoLog 5 units every 6 hours and continue NovoLog scale. 03/05: Patient is slightly more alert today. He has been afebrile, heart rate 109, blood pressure 118/79, pulse ox 97% on 4 L nasal cannula. Repeat blood work reveals BUN 98 and creatinine 2.47, chloride 117, potassium 4.6. Capillary blood glucose running between 155 and 172. Patient is followed by pulmonary medicine, nephrology. Patient is continued on NG tube feedings with Jevity and free water flushes. 03/06: Patient has been evaluated by speech therapy at the bedside and has failed, worse than last week. Patient scheduled for modified barium swallow for tomorrow but suspect he most likely will require PEG tube placement. Dr. Cazares is making another attempt to contact patient's son. Patient has been afebrile, heart rate 97, blood pressure 151/82, pulse ox 99% on 4 L nasal cannula. Capillary blood glucose running between 134 and 229. Repeat blood work ordered for tomorrow. The patient is currently on feeding tubes at goal along with free water flushes. Ramirez catheter remains in place. He does have chronic Ramirez. 03/07: patient remains lethargic. He underwent modified barium swallow today and failed. Family will need to determine if they wish to go with a PEG tube or make patient comfort care. patient has had 2 NG tube removed by patient. Patient received Lasix yesterday forfluid overload and has had good urine output. Less edema today. Repeat blood work reveals WBC 10.9, hemoglobin 7.6 and platelet count 71. BUN 72 creatinine 2.4. With blood glucose this morning was 60. AST 66, ALT 51, alkaline phosphatase 70. 7/15: Patient is seen and followed by pulmonary medicine. Patient has now removed NG tube twice. Attempts have been made to contact patient's son regarding decisions regarding a PEG tube placement, comfort care and CODE STATUS. Repeat nursing updated that if family comes in in the afternoons or evenings, please contact Dr. Cazares to speak with the family regarding these issues. Patient is currently only receiving IV and subcu medications. Repeat chest x-ray 03/07 reveals pulmonary edema consistent with heart failure which is increased compared to recent exam. scheduled NovoLog and Levemir discontinued. Patient continues to have occasional cough, generalized significant weakness and mental status changes. He has been afebrile, heart rate 82, blood pressure 114/69, pulse ox 92% on 2 L nasal cannula. REVIEW OF SYSTEMS Constitutional: No fever, no chills, no night sweats. No weight change. Noted weakness, noted fatigue no lethargy. Noted daytime sleepiness. EENT: No headache. No blurred vision or double vision, no loss of vision. No loss of Hearing, no ringingin the ears, no dizziness. No nasal drainage or congestion. No epistaxis. No sore throat. Lungs: + complaints of shortness of breath, + cough, no sputum production. No wheezing. Cardiovascular: No chest pain, no lower extremity edema. No palpitations. No paroxysmal nocturnal dyspnea. No orthopnea. No lightheadedness or dizziness. No syncopal episodes. Abdominal: No abdominal pain. No nausea, vomiting. No diarrhea. No constipation. No bloody or tarry stools. No loss of appetite. Genitourinary: No dysuria, increased frequency, urgency. No urinary retention. Musculoskeletal: No myalgias. No muscle weakness, reported gait dysfunction, no frequent falls. No back pain. No neck pain. Integumentary: No wounds, no lesions. No rash or pruritus. No unusual bruising. No change in hair or nails. Neurologic: No aphasia. No facial droop. Noted change in mentationcontinues. No head injury. No headache. No paralysis. No paresthesia. Psychiatric: Presumed depression. No anxiety. No mood swings. Endocrine: No abnormal blood sugars. No weight change. No excessive sweating or thirst. PHYSICAL EXAMINATION Gen: This is an 87-year-old male. He is resting in bed and appears to be comfortable. No respiratory distress is noted. HEENT: Head is atraumatic, normocephalic. Pupils equal, round. Sclerae is anicteric. NECK: Supple. No JVD. No lymphadenopathy. No thyromegaly. LUNGS: Decreased breath sounds bilaterally with a few scattered rhonchi. No intercostal retractions. +coughing HEART: Irregular rate and rhythm. 2/6 systolic murmur. ABDOMEN: Soft. Bowel sounds are present. No masses. No tenderness. Ramirez draining vincenzo urine with seiment. EXTREMITIES: No pedal edema. No calf tenderness. NEUROLOGICAL: Patient is lethargic, generalized weakness. ASSESSMENT AND PLAN 1. Acute sepsis and septic shock secondary to aspiration pneumonia and Ramirez catheter associated urinary tract infection. Continue patient management on the MedSur unit, pulmonary consult appreciated, patient is on Unasyn per infectious disease. Urine culture positive for Enterococcus faecalis. 2. Acute kidney injury secondary to hypovolemia and infection. Consult with nephrology appreciated. Patient is on D5W increased to 50 mL per hour due to hypoglycemia. 3. Hypernatremia due to poor oral water intake. Continue D5W. 4. DKA, diabetes mellitus type 2. patient now having episodes of hypoglycemia. Levemir is scheduled NovoLog discontinued. Continue NovoLog scale only. 5. Metabolic acidosis secondary to acute kidney injury and DKA. 6. Anemia of chronic disease. continue Aranesp 40 g subcu every 7 days, ferrous sulfate 325 mg daily. 7. A. fib with RVR. Patient started on Lopressor 12.5 mg twice daily No plan to start on anticoagulation due to previous bleeding. 8. Chronic atrial fibrillation not on anticoagulation due to retroperitoneal hematoma. 9. Metabolic encephalopathy secondary to pneumonia, UTI and sepsis. Continue treatment as above. 10. COPD without exacerbation. 11. Chronic hypoxic respiratory failure recently weaned off oxygen. 12. Diabetes mellitus type 2. Patient started on Levemir 15 units at bedtime, NovoLog 5 units every 6 hours and NovoLog scale. 13. Benign prostatic hypertrophy with urinary retention and chronic Ramirez catheter. 14. Chronic kidney disease stage III with history of left-sided nephrectomy. Avoid nephrotoxic agents. 15. History of large retroperitoneal hematoma with acute blood loss, stable, . 16. Chronic gout. Continue allopurinol 100 mg daily. 17. Recurrent depression. Hold Zoloft 50 mg at bedtime. 18. Generalized anxiety disorder. 19. Pressure ulcer coccyx and pressure ulcer penis, present on admission. Continue local wound care and offloading. 20. Failed swallow evaluation and severe protein calorie malnutrition. Family will need to decide if they want to pursue PEG or comfort care. Patient is not taking oral medications. 21. GI prophylaxis. Protonix 40 mg IV push daily. 22. DVT prophylaxis. SCDs and JARRET hose. CODE STATUS: Full code. Prognosis guarded DISCHARGE PLAN Likely return to [facility] for subacute rehab. Impression and plan of care have been directed as dictated by the signing physician. Cindy Tobias nurse practitioner acting as scribe for signing physician. Objective - Vital Signs Vital signs: Vital Signs Temp 97.4 F L 03/08/22 08:00 Pulse 79 03/08/22 10:06 Resp 14 03/08/22 08:00 BP 121/70 03/08/22 10:06 Pulse Ox 92 L 03/08/22 08:00 FiO2 Intake & Output 03/07/22 03/08/22 03/08/22 18:59 06:59 18:59 Intake Total 100 0 Output Total 2750 2500 Balance -2650 -2500 Weight 88 kg Intake: IV 100 0 Ampicillin-Sulbactam 3 gm 100 0 In Sodium Chloride 0.9% 100 ml @ 200 mls/hr IVPB Q12HR [facility] Rx#:[id number] Oral 0 Output: Urine 2750 2500 - Labs CBC & Chem 7: 03/07/22 05:02 03/07/22 05:02 Labs: Abnormal Lab Results - Last 24 Hours (Table) 03/07/22 03/07/22 03/07/22 Range/Units 16:37 22:36 23:21 POC Glucose (mg/dL) 128 H 144 H 159 H (70-110) mg/dL 03/08/22 03/08/22 03/08/22 Range/Units 06:05 09:49 10:06 POC Glucose (mg/dL) 65 L 55 L 127 H (70-110) mg/dL
--- NOTE | 2022-03-08 10:36 | P.PN ---
Subjective Patient is seen for follow-up for acute kidney injury. He also has underlying hypernatremia for which patient is maintained on D5W. Patient remains on feeding tube and is also receiving free water flushes. Urine output 1800 mL for 24 hours Swallow study shows evidence of aspiration Objective - Vital Signs Vital signs: Vital Signs Temp 97.4 F L 03/08/22 08:00 Pulse 79 03/08/22 10:06 Resp 14 03/08/22 08:00 BP 121/70 03/08/22 10:06 Pulse Ox 92 L 03/08/22 08:00 FiO2 Intake & Output 03/07/22 03/08/22 03/08/22 18:59 06:59 18:59 Intake Total 100 0 Output Total 2750 2500 Balance -2650 -2500 Weight 88 kg Intake: IV 100 0 Ampicillin-Sulbactam 3 gm 100 0 In Sodium Chloride 0.9% 100 ml @ 200 mls/hr IVPB Q12HR [facility] Rx#:[id number] Oral 0 Output: Urine 2750 2500 - Exam Awake, comfortable, no acute distress Patient has been coughing Patient is confused Examination of the heart S1 and S2 Examination of the lungs bilateral breath sounds are heard Abdomen is soft nontender Examination of the lower extremity shows no evidence of edema Patient does not follow commands - Labs CBC & Chem 7: 03/07/22 05:02 03/07/22 05:02 Labs: Abnormal Lab Results - Last 24 Hours (Table) 03/07/22 03/07/22 03/07/22 Range/Units 16:37 22:36 23:21 POC Glucose (mg/dL) 128 H 144 H 159 H (70-110) mg/dL 03/08/22 03/08/22 03/08/22 Range/Units 06:05 09:49 10:06 POC Glucose (mg/dL) 65 L 55 L 127 H (70-110) mg/dL Assessment and Plan Assessment: 1. Hyponatremia , improved with D5W 2. Chronic kidney disease stage III associated with solitary right kidney 3. Status post left nephrectomy 4. DKA status post insulin drip 5. Metabolic acidosis associated with acute kidney injury in DKA 6. UTI and possible pneumonia maintained on antibiotics. Urine culture positive for group D enterococcus. Patient is being followed by ID Plan: Continue D5W Free water flushes currently held as patient is aspirating. Tube feeds discontinued for now. Repeat labs
[2022-03-08] MEDS: DEXTROSE 5% IN WATER 1,000 ML IV SCH (10:44)
[2022-03-08] MEDS: allopurinoL 100 MG TAB PO SCH (10:46)
--- NOTE | 2022-03-08 10:50 | P.PN ---
Subjective Progress Note Date: 03/08/22 Principal diagnosis: Weakness, hypernatremia, altered mental status, diabetic ketoacidosis, suspected aspiration pneumonia, acute UTI This is an 87-year-old white male with history of multiple comorbidities, patient was brought yesterday by EMS from the nursing facility with mostly complaints of low blood pressure and the patient has been noted to be lethargic. Patient had previous history of documented coronary artery disease, history of intracranial hemorrhage/subdural hematoma, chronic atrial fibrillation, hypertension, diabetes. Patient is not a great historian, apparently when he arrived to the ER, patient was found to have multiple abnormal labs including blood sugar over 500 anion gap metabolic acidosis hypernatremia with sodium of 160 acute kidney injury with BUN of 169 and creatinine 4.75, abnormal urinalysis, and abnormal chest x-ray suggestive of right lower lobe pneumonia questionable aspiration pneumonia considering the patient's overall mental stat us patient was obviously septic, and dehydrated upon his initial presentation. He received fluid boluses, blood pressure responded to fluid boluses but the patient did not require to be placed on pressors. Patient was placed empirically on antibiotics for presumptive pneumonia and possible urinary tract infection he was placed on the DKA protocol, and when the ER physician discussed the case with me I recommended definite admission to the ICU. Saw the patient this morning, remains on insulin drip at 1 unit per hour. His IV fluid was transitioned from 0.9 normal saline to D5W at 200 mL per hour. Patient is making urine around 50 mL per hour. More fluid boluses were given this morning. And we are closely monitoring his electrolytes and renal profile sodium remains relatively elevated at 160. However his anion gap corrected nicely and his anion gap this morning is 10. Bicarb is 18. Renal profile showed slight improvement since yesterday on admission ABG on admission showed a pO2 of 88 pCO2 31 pH of 7.37 and this was on the percent FiO2 in the ER. Presently the patient is on nasal cannula at 4 L/m and O2 saturations 93% cultures are pending patient remains on Zosyn and I discontinued his cefepime and vancomycin. Reevaluated today on 03/02/2022, patient remains in the ICU, she is on 2 L nasal cannula, O2 sats is 96%. Patient continues to be relatively lethargic, continues to have significant non-anion gap metabolic acidosis, placed on bicarb drip at 150 mL per hour. Continues to have hypernatremia however the sodium is improving and today I recommended free water flushes through a nasogastric tube to be placed mode every 4 nutritional support and also for free water flushes. Patient remains to have significant free water deficit with relatively high sodium. Mentation remains poor, patient is lethargic, arousable, unable to swallow on his own. Hence I feel it would be best to start enteral feeding via nasogastric tube today. He has a very poor appetite, and does not seem to swallow well. Remains in atrial fibrillation with controlled rate. Denies any shortness of breath cough wheezing denies any nausea vomiting or abdominal pain. Sodium today is 153 bicarb is 16 anion gap is 10 and BUN is 149 and creatinine 3.72. Reevaluated today on 03/03/2022, patient remains in the ICU, he is doing much better today compared to the last couple of days. His sodium has corrected nicely is down to 147 today. His bicarb also corrected nicely and he is off bic arb drip. Patient is on 4 L nasal cannula with O2 sats of 93%. His IV fluid is D5 4 5 at 75 mL/h and I have cut down his free water flushes to 200 mL every 6 hours via nasogastric tube. Patient is also receiving enteral feeding. Patient is awake but remains confused. Today I plan to transfer the patient out of the ICU, he can go to a regular medical floor, he will need to have swallow evaluat ion and may even have to consider a PEG tube placement if he failed the swallow evaluation. In the meantime we are continuing his antibiotics for presumptive sepsis and aspiration pneumonia. CBC today is relatively unremarkable. His BUN is down to 125 creatinine is down to 3.27. And sodium is 147 bicarb is 23. On 03/04/2022 patient seen in follow-up on medical surgical floor, he was transferred out of intensive care unit yesterday, he is much more awake and responsive on today's exam, he still confused, but appears to be in no distress, breathing comfortably, FiO2 is 4 L pulse ox is 96%, afebrile, blood pressures stable. NG tube remains in place the patient has Jevity infusing at a rate of 40 ML per hour, with 300 mL free water flushes every 6 hours. In addition patient remains on D5W at a rate of 75 ML per hour, he is on Unasyn for urine checked infection related to enterococcus faecalis. No nausea or vomiting, no diarrhea, abdomen is soft. Follow-up chest x-ray today shows chronic changes, with bibasilar opacities with slight worsening at the left lung base. Clinically patient denies any worsening dyspnea no cough, no chest congestion or chest pain. Today's labs have been reviewed, white blood cell count of 6.3, hemoglobin is 8.1, sodium today is 149, potassium is 4.1, BUN is 103, creatinine 3.2 renal profile is improving On 03/05/2022 patient seen in follow-up on medical surgical floor. He is awake and alert, he is oriented to person only, disoriented to place and time. Denies any acute distress, no complaints of shortness of breath or cough, no chest discomfort, he remains on D5W at 75 ML per hour, NG tube remains in place with Jevity infusing at 67 ML per hour and free water flushes. His been afebrile. He remains on Unasyn for enterococcus faecalis urinary tract infection. No fever or chills. He was seen by speech therapy and evaluation, and the recommendation has been made to continue with tube feedings for now as the patient's been noted to have increased congestion, and wet voice during the speech evaluation. However his level of consciousness significantly improved since admission. On 03/06/2020 patient seen in follow-up on an apical surgical floor. He is lethargic on today's exam, but does wake up to verbal stimulation, seems com fortable, no evidence of any respiratory difficulty, he remains on 4 L of oxygen pulse ox is 95-90%, vital signs have been stable, no fever or chills, he remains on Unasyn for Enterococcus faecalis urinary tract infection. NG tube remains in place and tube feedings in the form of Jevity solution is infusing at a rate of 67 ML per hour, and patient remains on 300 mL free water flushes every 6 hours. In addition patient remains on D5W at a rate of 75 ML per hour, nephrology is following, today's labs are still pending for today, but yesterday's labs showed improving serum sodium which is down to 145, potassium is 4.6, renal profile was noted to be improving, BUN was down to 98, creatinine was 2.47. The patient is seen today 03/07/2022 in follow-up on the regular medical floor. He is currently resting in bed. He is maintaining O2 saturations in the 90s on 3 L/m per nasal cannula. He has pulled out his nasogastric tube twice. Jevity currently on hold. Receiving D5W at 20 ML's per hour. All of chest x-ray reveals pulmonary edema consistent with congestive heart failure which is increased compared to previous exam. He did receive Lasix 60 mg IVP 1 yesterday. Currently in a -1.8 L balance. White count 10.1. Hemoglobin 7.6. Platelet count 71,000. Sodium 143. Potassium 4.4. BUN 72. Creatinine 2.4. Glucose 159. AST 66. ALT 51. Urine culture positive for Enterococcus faecalis. He remains on Unasyn. The patient is seen today 03/08/2022 in follow-up on the regular medical floor. He is currently resting in bed. Arousable. Maintaining O2 saturations in the 90s on 2 L/m per nasal cannula. He is afebrile. Hemodynamically stable. The patient had removed his NG tube 2. Not currently receiving nutrition. Family is deciding regarding PEG tube placement. Glucose 127. Urine culture was positive for Enterococcus faecalis. He remains on D5W at 50 MLS per hour. Antibiotics in form of Unasyn. Objective - Vital Signs Vital signs: Vital Signs Temp 97.4 F L 03/08/22 08:00 Pulse 79 03/08/22 10:06 Resp 14 03/08/22 08:00 BP 121/70 03/08/22 10:06 Pulse Ox 92 L 03/08/22 08:00 FiO2 Intake & Output 03/07/22 03/08/22 03/08/22 18:59 06:59 18:59 Intake Total 100 0 Output Total 2750 2500 Balance -2650 -2500 Weight 88 kg Intake: IV 100 0 Ampicillin-Sulbactam 3 gm 100 0 In Sodium Chloride 0.9% 100 ml @ 200 mls/hr IVPB Q12HR [facility] Rx#:[id number] Oral 0 Output: Urine 2750 2500 - Exam GENERAL EXAM: Sleepy but does wake up to voice, 87-year-old male, confused, oriented to self, on 2 L of oxygen pulse ox is 92% comfortable in no apparent distress. HEAD: Normocephalic/atraumatic. EYES: Normal reaction of pupils, equal size. Conjunctiva pink, sclera white. NOSE: Clear with pink turbinates. THROAT: No erythema or exudates. NECK: No masses, no JVD, no thyroid enlargement, no adenopathy. CHEST: No chest wall deformity. Symmetrical expansion. LUNGS: Equal air entry with bibasilar crackles, scattered rhonchi. CVS: Regular rate and rhythm, normal S1 and S2, no gallops, no murmurs, no rubs ABDOMEN: Soft, nontender. No hepatosplenomegaly, normal bowel sounds, no guarding or rigidity. EXTREMITIES: No clubbing, no edema, no cyanosis, 2+ pulses and upper and lower extremities. MUSCULOSKELETAL: Muscle strength and tone normal. SPINE: No scoliosis or deformity SKIN: No rashes CENTRAL NERVOUS SYSTEM: Alert and oriented -1. No focal deficits, tone is normal in all 4 extremities. PSYCHIATRIC: Alert and oriented -1. Appropriate affect. Intact judgment and insight. - Labs CBC & Chem 7: 03/07/22 05:02 03/07/22 05:02 Labs: Abnormal Lab Results - Last 24 Hours (Table) 03/07/22 03/07/22 03/07/22 Range/Units 16:37 22:36 23:21 POC Glucose (mg/dL) 128 H 144 H 159 H (70-110) mg/dL 03/08/22 03/08/22 03/08/22 Range/Units 06:05 09:49 10:06 POC Glucose (mg/dL) 65 L 55 L 127 H (70-110) mg/dL Assessment and Plan Assessment: 1 Acute sepsis related to possible aspiration pneumonia, and urinary tract infection with urine culture positive for enterococcus faecalis, currently on Unasyn 2 Altered mental status related to the above, improved 3 Acute on chronic kidney disease, patient has a history of chronic disease stage IIIa and as solitary right kidney, renal function is improving #4. Free water deficit with hyper nature anemia, significantly improved, patient remains on free water flushes via NG tube and D5W at a rate of 75 ML per hour 4 Profound dehydration secondary to the above, improving 5 History of Alzheimer's dementia 6 Acute aspiration pneumonia 7 Chronic urinary tract infection group D enterococcus on Unasyn Plan: The patient was seen and evaluated Stable and on 2 L nasal cannula Continue aspiration precaution We'll follow as needed I have personally seen and examined the patient, performed the documentation and the assessment and plan as written. Number of minutes spent on the visit: 10.
[2022-03-08] MEDS: PANTOPRAZOLE 40 MG/10 ML VIAL IVP SCH (10:57)
[2022-03-08] MEDS: AMPICILLIN-SULBACTAM 3 GM in SODIUM CHLORIDE 0.9% 100 ML IVPB SCH ×2 (11:00→21:43)
[2022-03-08 11:45] LABS: Glucose,Whole Blood 70 mg/dL (70-110)
[2022-03-08 13:01] LABS: Glucose,Whole Blood 58 mg/dL (70-110)
[2022-03-08] MEDS: METOPROLOL TARTRATE 12.5 MG TAB PO SCH ×2 (13:10→21:44)
[2022-03-08] MEDS: FERROUS SULFATE 325 MG TAB PO SCH (13:10)
[2022-03-08 13:42] LABS: Glucose,Whole Blood 104 mg/dL (70-110)
[2022-03-08] MEDS: DEXTROSE 10% IN WATER 500 ML in EMPTY BAG 1 BAG IV SCH ×2 (13:50→23:48)
--- NOTE | 2022-03-08 15:21 | P.PN ---
Subjective Progress Note Date: 03/07/22 Principal diagnosis: Sepsis UTI/aspiration pneumonia Patient is an 87 year old male with multiple comorbidities who was sent [facility] the ER [facility] for a blood pressure and the patient was noticed to be lethargic and was concern for possible right lower lobe aspiration pneumonia as well as a UTI. On today's evaluation of 03/07/2022, The patient continues to be afebrile, the patient more awake and alert today, and NG has been discontinued, he is breathing comfortably on nasal cannula oxygen, no vomiting or diarrhea was reported by the nurse aide Objective - Vital Signs Vital signs: Vital Signs Temp 97.7 F 03/07/22 08:00 Pulse 96 03/07/22 08:00 Resp 20 03/07/22 08:00 BP 119/68 03/07/22 08:00 Pulse Ox 94 L 03/07/22 08:00 FiO2 Intake & Output 03/06/22 03/07/22 03/07/22 18:59 06:59 18:59 Intake Total 2464 Output Total 1800 1850 Balance 2464 -1800 -1850 Weight 91.5 kg 92 kg Intake: IV 200 Ampicillin-Sulbactam 3 gm 200 In Sodium Chloride 0.9% 100 ml @ 200 mls/hr IVPB Q12HR [facility] Rx#:[id number] Tube Feeding 2144 Other 120 Output: Urine 1800 1850 Other: Voiding Method Indwelling Catheter Indwelling Catheter - Exam GENERAL DESCRIPTION: An elderly male lying in bed in no distress RESPIRATORY SYSTEM: Unlabored breathing , decreased breath sounds at bases HEART: S1 S2 regular rate and rhythm , ABDOMEN: Soft , no tenderness EXTREMITIES: No edema feet - Labs CBC & Chem 7: 03/07/22 05:02 03/07/22 05:02 Labs: Abnormal Lab Results - Last 24 Hours (Table) 03/06/22 03/06/22 03/06/22 Range/Units 15:45 17:28 19:00 WBC (4.50-10.00) X 10*3/uL RBC (4.40-5.60) X 10*6/uL Hgb (13.0-17.0) g/dL Hct (39.6-50.0) % MCHC (32.0-37.0) g/dL RDW (11.5-14.5) % Plt Count (140-440) X 10*3/uL Immature Plt Fraction (1.1-6.1) % Chloride 111 H (98-107) mmol/L Anion Gap (10.00-18.00) mmol/L BUN 77 H (9-20) mg/dL Creatinine 2.17 H (0.66-1.25) mg/dL Est GFR (CKD-EPI)AfAm (60.0-200.0) Est GFR (CKD-EPI)NonAf (60.0-200.0) BUN/Creatinine Ratio (12.00-20.00) Ratio Glucose 181 H (74-99) mg/dL POC Glucose (mg/dL) 226 H 217 H (70-110) mg/dL Calcium 6.9 L (8.4-10.2) mg/dL Total Bilirubin (0.30-1.20) mg/dL AST (14-35) U/L ALT (10-49) U/L Total Protein (6.2-8.2) g/dL Albumin (3.8-4.9) g/dL Albumin/Globulin Ratio (1.60-3.17) g/dL 03/07/22 03/07/22 03/07/22 Range/Units 00:11 05:02 05:02 WBC 10.91 H (4.50-10.00) X 10*3/uL RBC 2.64 L (4.40-5.60) X 10*6/uL Hgb 7.6 L (13.0-17.0) g/dL Hct 25.3 L (39.6-50.0) % MCHC 30.0 L (32.0-37.0) g/dL RDW 15.3 H (11.5-14.5) % Plt Count 71 L (140-440) X 10*3/uL Immature Plt Fraction 22.0 H (1.1-6.1) % Chloride 110 H (98-107) mmol/L Anion Gap 9.70 L (10.00-18.00) mmol/L BUN 72.4 H (9-20) mg/dL Creatinine 2.4 H (0.66-1.25) mg/dL Est GFR (CKD-EPI)AfAm 27.1 L (60.0-200.0) Est GFR (CKD-EPI)NonAf 23.4 L (60.0-200.0) BUN/Creatinine Ratio 30.17 H (12.00-20.00) Ratio Glucose 60 L (74-99) mg/dL POC Glucose (mg/dL) 154 H (70-110) mg/dL Calcium 7.3 L (8.4-10.2) mg/dL Total Bilirubin 0.20 L (0.30-1.20) mg/dL AST 66 H (14-35) U/L ALT 51 H (10-49) U/L Total Protein 4.8 L (6.2-8.2) g/dL Albumin 2.1 L (3.8-4.9) g/dL Albumin/Globulin Ratio 0.78 L (1.60-3.17) g/dL 03/07/22 03/07/22 Range/Units 05:49 06:31 WBC (4.50-10.00) X 10*3/uL RBC (4.40-5.60) X 10*6/uL Hgb (13.0-17.0) g/dL Hct (39.6-50.0) % MCHC (32.0-37.0) g/dL RDW (11.5-14.5) % Plt Count (140-440) X 10*3/uL Immature Plt Fraction (1.1-6.1) % Chloride (98-107) mmol/L Anion Gap (10.00-18.00) mmol/L BUN (9-20) mg/dL Creatinine (0.66-1.25) mg/dL Est GFR (CKD-EPI)AfAm (60.0-200.0) Est GFR (CKD-EPI)NonAf (60.0-200.0) BUN/Creatinine Ratio (12.00-20.00) Ratio Glucose (74-99) mg/dL POC Glucose (mg/dL) 63 L 159 H (70-110) mg/dL Calcium (8.4-10.2) mg/dL Total Bilirubin (0.30-1.20) mg/dL AST (14-35) U/L ALT (10-49) U/L Total Protein (6.2-8.2) g/dL Albumin (3.8-4.9) g/dL Albumin/Globulin Ratio (1.60-3.17) g/dL Microbiology - Last 24 Hours (Table) 02/28/22 16:35 Blood Culture - Final Blood No Growth after 144 hours Assessment and Plan (1) Pneumonia Current Visit: Yes Status: Acute Code(s): J18.9 - PNEUMONIA, UNSPECIFIED ORGANISM SNOMED Code(s): 018671074 (2) UTI (urinary tract infection) Current Visit: Yes Status: Acute Code(s): N39.0 - URINARY TRACT INFECTION, SITE NOT SPECIFIED SNOMED Code(s): 35218330 Plan: 1patient presented to hospital with weakness lethargy head this patient did have evidence of UTI and possible right-sided pneumonia in this patient being a [facility] resident will need to cover for resistant gram-negative with a ailin dc pathogen. The patient urine however is currently showing enterococcus blood cultures have been negative so far sputum hasn't been collected 2 Patient seemed to show some clinical improvement, patient will continue with the Unasyn and will transition to oral antibiotics once his oral intake improves Time with Patient: Less than 30
--- NOTE | 2022-03-08 15:22 | P.PN ---
Subjective Progress Note Date: 03/08/22 Principal diagnosis: Sepsis UTI/aspiration pneumonia Patient is an 87 year old male with multiple comorbidities who was sent to the ER from [facility] for a blood pressure and the patient was noticed to be lethargic and was concern for possible right lower lobe aspiration pneumonia as well as a UTI. On today's evaluation of 03/08/2022, The patient is afebrile, the patient is breathing comfortably on nasal cannula oxygen, oral intakes remains to be poor however no vomiting or diarrhea was reported by the nurse aide Objective - Vital Signs Vital signs: Vital Signs Temp 97.4 F L 03/08/22 08:00 Pulse 79 03/08/22 10:06 Resp 14 03/08/22 08:00 BP 121/70 03/08/22 10:06 Pulse Ox 92 L 03/08/22 08:00 FiO2 Intake & Output 03/07/22 03/08/22 03/08/22 18:59 06:59 18:59 Intake Total 100 0 Output Total 2750 2500 Balance -2650 -2500 Weight 88 kg 88 kg Intake: IV 100 0 Ampicillin-Sulbactam 3 gm 100 0 In Sodium Chloride 0.9% 100 ml @ 200 mls/hr IVPB Q12HR [facility] Rx#:[id number] Oral 0 Output: Urine 2750 2500 - Exam GENERAL DESCRIPTION: An elderly male lying in bed in no distress RESPIRATORY SYSTEM: Unlabored breathing , decreased breath sounds at bases HEART: S1 S2 regular rate and rhythm , ABDOMEN: Soft , no tenderness EXTREMITIES: No edema feet - Labs CBC & Chem 7: 03/07/22 05:02 03/07/22 05:02 Labs: Abnormal Lab Results - Last 24 Hours (Table) 03/07/22 03/07/22 03/07/22 Range/Units 16:37 22:36 23:21 POC Glucose (mg/dL) 128 H 144 H 159 H (70-110) mg/dL 03/08/22 03/08/22 03/08/22 Range/Units 06:05 09:49 10:06 POC Glucose (mg/dL) 65 L 55 L 127 H (70-110) mg/dL Assessment and Plan (1) Pneumonia Current Visit: Yes Status: Acute Code(s): J18.9 - PNEUMONIA, UNSPECIFIED ORGANISM SNOMED Code(s): 280902528 (2) UTI (urinary tract infection) Current Visit: Yes Status: Acute Code(s): N39.0 - URINARY TRACT INFECTION, SITE NOT SPECIFIED SNOMED Code(s): 25110101 Plan: 1patient presented to hospital with weakness lethargy head this patient did have evidence of UTI and possible right-sided pneumonia in this patient being a [facility] resident will need to cover for resistant gram-negative with a likely pathogen. The patient urine however is currently showing enterococcus blood cultures have been negative so far sputum hasn't been collected 2 Patient slowly clinically improving and is currently being treated with the Unasyn with a plan to finish therapy with oral Augmentin Time with Patient: Less than 30
[2022-03-08 17:00] LABS: Glucose,Whole Blood 75 mg/dL (70-110)
[2022-03-08 17:36] LABS: Glucose,Whole Blood 83 mg/dL (70-110)
[2022-03-08] MEDS: SERTRALINE 50 MG TAB PO SCH (21:44)
[2022-03-08] MEDS: guaiFENesin SYRUP 100MG/5ML 200 MG/10 ML CUP PO PRN (21:44)
[2022-03-08 23:56] LABS: Glucose,Whole Blood 136 mg/dL (70-110)
[2022-03-09 05:48] LABS: Glucose,Whole Blood 191 mg/dL (70-110)
[2022-03-09] MEDS: INSULIN ASPART (NovoLOG) 100 UNIT/ML VIAL SQ SCH ×3 (05:51→17:17)
[2022-03-09] MEDS: PANTOPRAZOLE 40 MG/10 ML VIAL IVP SCH (07:42)
[2022-03-09] MEDS: allopurinoL 100 MG TAB PO SCH (07:43)
[2022-03-09] MEDS: METOPROLOL TARTRATE 12.5 MG TAB PO SCH ×2 (07:43→20:45)
[2022-03-09] MEDS: AMPICILLIN-SULBACTAM 3 GM in SODIUM CHLORIDE 0.9% 100 ML IVPB SCH ×2 (07:43→20:46)
[2022-03-09] MEDS: FERROUS SULFATE 325 MG TAB PO SCH (07:43)
--- NOTE | 2022-03-09 09:05 | P.PN ---
Subjective Progress Note Date: 03/09/22 Principal diagnosis: Patient is seen because of acute kidney injury secondary to uncontrolled diabetes, diabetic ketoacidosis pneumonia and is responding and improving. He also has chronic kidney disease with a baseline creatinine 1.6. Likely diabetic nephropathy as well as solitary kidney status post left nephrectomy He has dementia and is unable to give me any history He is awake and alert follow commands. His urine output is documented at 50-50 mL intake of 100 mL. Blood sugars are controlled, with occasional blood sugar in the 58, 75-83 range History of present illness: Patient is a 87-year-old male seen in renal consultation for acute kidney injury on chronic kidney disease and hypernatremia. Patient has chronic kidney disease stage III with baseline creatinine in the range of 1.3-1.4 secondary to solitary right kidney. Patient has history of left nephrectomy. Patient resides at an extended care facility and was brought to the hospital due to lethargy weakness and hypotension. Patient's sodium level on admission was 160 and is 161 this morning. Creatinine was 4.97 on admission and is 4.3 today. Patient was noted to be in DKA with blood sugars above 500. He is currently on insulin drip. He initially receive normal saline at 200 mL an hour and is now maintained on D5 W at 1 50 mL an hour. He is not on any vasopressor support. Oral intake is poor. Swallow eval is pending. I don't see any NSAIDs and his home medication list. Urine output has been about 40 mL an hour. Last hour it was 75 mL. No fever. UA suggestive of UTI. He did receive cefepime and is also on vancomycin. Objective - Vital Signs Vital signs: Vital Signs Temp 98.0 F 03/09/22 07:54 Pulse 80 03/09/22 07:54 Resp 18 03/09/22 07:54 BP 114/72 03/09/22 07:54 Pulse Ox 98 03/09/22 07:54 FiO2 Intake & Output 03/08/22 03/09/22 03/09/22 18:59 06:59 18:59 Output Total 1300 1200 Balance -1300 -1200 Weight 88 kg 87 kg Output: Urine 1300 1200 Other: Voiding Method Indwelling Catheter Indwelling Catheter # Bowel Movements 1 On examination is awake alert but confused follow some commands A chin exam no JVP no facial asymmetry Lungs are clear to auscultation good air entry bilaterally Heart sounds unremarkable for any murmur rub gallop Abdomen soft nontender Extremity exam was no edema Neurologically awake alert but disoriented confused follows commands. - Labs CBC & Chem 7: 03/07/22 05:02 03/07/22 05:02 Labs: Abnormal Lab Results - Last 24 Hours (Table) 03/08/22 03/08/22 03/08/22 Range/Units 09:49 10:06 13:00 POC Glucose (mg/dL) 55 L 127 H 58 L (70-110) mg/dL 03/08/22 03/09/22 Range/Units 23:55 05:41 POC Glucose (mg/dL) 136 H 191 H (70-110) mg/dL Assessment and Plan Assessment: Impression 1. Acute kidney injury secondary to DKA and uncontrolled diabetes and septic syndrome with pneumonia. Creatinine improved to 2.4. 2. Post ATN diuresis with 5.2 L of urine output, without any diuretics. Possibly leading to hypovolemia 3. Dementia 4. Pneumonia. 5. Status post left nephrectomy, 6. Chronic kidney disease Baseline creatinine 1.6 7. History of atrial fibrillation COPD 8. Anemia hemoglobin 7.6, iron saturation is 36% on 03/01/2022. Recommendation 1. Start IV fluids lactated Ringer's at 75 mL an hour 2. Avoid hypoglycemic episodes. 3. Continue darbepoetin and monitor labs
[2022-03-09] MEDS: LACTATED RINGERS 1,000 ML IV SCH (09:48)
--- NOTE | 2022-03-09 10:22 | P.PN ---
Subjective Progress Note Date: 03/09/22 HISTORY OF PRESENT ILLNESS This is an 87-year-old male patient of Dr. Hurd with past medical history of Parkinsons disease, Alzheimers dementia, diabetes mellitus type 2, chronic atrial fibrillation not on anticoagulation due to retroperitoneal hematoma, history of pneumonia, benign prostatic hypertrophy, chronic kidney disease with history of left-sided nephrectomy, history of large retroperitoneal hematoma 04/2021, history of aspiration pneumonia. Patient was hospitalized at [facility] due to failure to thrive increasing weakness and difficulty ambulatingfor 2 weeks and progressively worsening. Patient was treated for UTI and streptococcal bacteremia seen by infectious disease thought this was a contamination. Echocardiogram did not show any abnormalities stafford spicious for endocarditis. ID recommended a short course of Ceftin and patient was discharged to [facility] for subacute rehab. Patient was subsequently admitted for A. fib RVR and aspiration pneumonia. He was stabilized and discharged back to [facility] for subacute rehab. Upon his return, patient has been more weak, less involved in his care then prior admissions yesterday, patient was transferred to [facility] emergency center due to altered mental status and hypotension. Patient was found to be afebrile, heart rate 122, respiratory rate 26, blood pressure 89/59, pulse ox 91% on nonrebreather. EKG was atrial fibrillation with RVR with a ventricular rate of 123. WBC 5.2, hemoglobin 10.5, platelet count 152. Sodium 160, potassium 5, chloride 125, CO2 18, anion gap 17, BUN 176, creatinine 4.9. Blood sugar 515. Lactic acid 3.2. Calcium 8.9. Magnesium 3.1. Total bilirubin 0.5, AST 13 ALT 15, alkaline phosphatase 79. Urinalysis cloudy, glucose 3+, blood small, leukoe sterase large, WBCs 103. Acetone positive Chest x-ray revealed infiltrate right lower lung CAT scan of the abdomen and pelvis without contrast revealed no evidence of retroperitoneal hematoma. Bibasilar pneumonia, correlate for aspiration. Correlate for hemorrhagic material within the urinary bladder. Urinary bladder wall thickening. CAT scan of the brain revealed age-related atrophy and chronic small vessel ischemic change without acute intracranial process. Stable chronic right sided subdural collection. No acute intracranial hemorrhage. Patient was admitted into intensive care unit, consult with nephrology and senior information developer.. 03/04: Patient is seen on the [facility] floor. He had an NG tube placed over the weekend and receiving Jevity at 40 ML's poor hour +300 ML's of water every 6 ho urs. Patient is on Unasyn for aspiration pneumonia. Patient is followed by pulmonary medicine, infectious disease and nephrology. Blood work today reveals WBC 6.2, hemoglobin 8.1 and platelet count of 80. Sodium 149, potassium 4.1, chloride 117, CO2 22, BUN 103 and creatinine 3.2. Capillary blood glucose running between 214 and 284. Urine culture was finalized with Enterococcus faecalis. IV fluids have been switched to D5W. Patient will be started on Levemir 15 units at bedtime, scheduled NovoLog 5 units every 6 hours and continue NovoLog scale. 03/05: Patient is slightly more alert today. He has been afebrile, heart rate 109, blood pressure 118/79, pulse ox 97% on 4 L nasal cannula. Repeat blood work reveals BUN 98 and creatinine 2.47, chloride 117, potassium 4.6. Capillary blood glucose running between 155 and 172. Patient is followed by pulmonary medicine, nephrology. Patient is continued on NG tube feedings with Jevity and free water flushes. 03/06: Patient has been evaluated by speech therapy at the bedside and has failed, worse than last week. Patient scheduled for modified barium swallow for tomorrow but suspect he most likely will require PEG tube placement. Dr. Cazares is making another attempt to contact patient's son. Patient has been afebrile, heart rate 97, blood pressure 151/82, pulse ox 99% on 4 L nasal cannula. Capillary blood glucose running between 134 and 229. Repeat blood work ordered for tomorrow. The patient is currently on feeding tubes at goal along with free water flushes. Ramirez catheter remains in place. He does have chronic Ramirez. 03/07: patient remains lethargic. He underwent modified barium swallow today and failed. Family will need to determine if they wish to go with a PEG tube or make patient comfort care. patient has had 2 NG tube removed by patient. Patient received Lasix yesterday forfluid overload and has had good urine output. Less edema today. Repeat blood work reveals WBC 10.9, hemoglobin 7.6 and platelet count 71. BUN 72 creatinine 2.4. With blood glucose this morning was 60. AST 66, ALT 51, alkaline phosphatase 70. 7/15: Patient is seen and followed by pulmonary medicine. Patient has now removed NG tube twice. Attempts have been made to contact patient's son regarding decisions regarding a PEG tube placement, comfort care and CODE STATUS. Repeat nursing updated that if family comes in in the afternoons or evenings, please contact Dr. Cazares to speak with the family regarding these issues. Patient is currently only receiving IV and subcu medications. Repeat chest x-ray 03/07 reveals pulmonary edema consistent with heart failure which is increased compared to recent exam. scheduled NovoLog and Levemir discontinued. Patient continues to have occasional cough, generalized significant weakness and mental status changes. He has been afebrile, heart rate 82, blood pressure 114/69, pulse ox 92% on 2 L nasal cannula. 03/09: Dr. Cazares was in contact with patient's and his son regarding patient's condition and prognoses as well as plan of care, they will decide regarding PEG tube placement but at this time, family have not made a decision. Nephrology has recommended IV fluids LR at 75 mL an hour, avoid hypoglycemic episodes, continue Aranesp and monitor lab work. Patient continues to be nothing by mouth. REVIEW OF SYSTEMS Constitutional: No fever, no chills, no night sweats. No weight change. Noted weakness, noted fatigue no lethargy. Noted daytime sleepiness. EENT: No headache. No blurred vision or double vision, no loss of vision. No loss of Hearing, no ringingin the ears, no dizziness. No nasal drainage or congestion. No epistaxis. No sore throat. Lungs: + complaints of shortness of breath, + cough, no sputum production. No wheezing. Cardiovascular: No chest pain, no lower extremity edema. No palpitations. No paroxysmal nocturnal dyspnea. No orthopnea. No lightheadedness or dizziness. No syncopal episodes. Abdominal: No abdominal pain. No nausea, vomiting. No diarrhea. No constipation. No bloody or tarry stools. No loss of appetite. Genitourinary: No dysuria, increased frequency, urgency. No urinary retention. Musculoskeletal: No myalgias. No muscle weakness, reported gait dysfunction, no frequent falls. No back pain. No neck pain. Integumentary: No wounds, no lesions. No rash or pruritus. No unusual bruising. No change in hair or nails. Neurologic: No aphasia. No facial droop. Noted change in mentation continues. No head injury. No headache. No paralysis. No paresthesia. Psychiatric: Presumed depression. No anxiety. No mood swings. Endocrine: No abnormal blood sugars. No weight change. No excessive sweating or thirst. PHYSICAL EXAMINATION Gen: This is an 87-year-old male. He is resting in bed and appears to be comfortable. No respiratory distress is noted. HEENT: Head is atraumatic, normocephalic. Pupils equal, round. Sclerae is anicteric. NECK: Supple. No JVD. No lymphadenopathy. No thyromegaly. LUNGS: Decreased breath sounds bilaterally with a few scattered rhonchi. No intercostal retractions. +coughing HEART: Irregular rate and rhythm. 2/6 systolic murmur. ABDOMEN: Soft. Bowel sounds are present. No masses. No tenderness. Ramirez draining vincenzo urine with seiment. EXTREMITIES: No pedal edema. No calf tenderness. NEUROLOGICAL: Patient is lethargic, generalized weakness. ASSESSMENT AND PLAN 1. Acute sepsis and septic shock secondary to aspiration pneumonia and Ramirez catheter associated urinary tract infection. Continue patient management on the MedSurg unit, pulmonary consult appreciated, patient is on Unasyn per infectious disease. Urine culture positive for Enterococcus faecalis. 2. Acute kidney injury secondary to hypovolemia and infection. Consult with nephrology appreciated. Patient is on D5W increased to 50 mL per hour due to hypoglycemia. 3. Hypernatremia due to poor oral water intake. Continue D5W. 4. DKA, diabetes mellitus type 2. patient now having episodes of hypoglycemia. Levemir is scheduled NovoLog discontinued. Continue NovoLog scale only. 5. Metabolic acidosis secondary to acute kidney injury and DKA. 6. Anemia of chronic disease. continue Aranesp 40 g subcu every 7 days, ferrous sulfate 325 mg daily. 7. A. fib with RVR. Patient started on Lopressor 12.5 mg twice daily No plan to start on anticoagulation due to previous bleeding. 8. Chronic atrial fibrillation not on anticoagulation due to retroperitoneal hematoma. 9. Metabolic encephalopathy secondary to pneumonia, UTI and sepsis. Continue treatment as above. 10. COPD without exacerbation. 11. Chronic hypoxic respiratory failure recently weaned off oxygen. 12. Diabetes mellitus type 2. Patient started on Levemir 15 units at bedtime, NovoLog 5 units every 6 hours and NovoLog scale. 13. Benign prostatic hypertrophy with urinary retention and chronic Ramirez catheter. 14. Chronic kidney disease stage III with history of left-sided nephrectomy. Avoid nephrotoxic agents. 15. History of large retroperitoneal hematoma with acute blood loss, stable, . 16. Chronic gout. Continue allopurinol 100 mg daily. 17. Recurrent depression. Hold Zoloft 50 mg at bedtime. 18. Generalized anxiety disorder. 19. Pressure ulcer coccyx and pressure ulcer penis, present on admission. Continue local wound care and offloading. 20. Failed swallow evaluation and severe protein calorie malnutrition. Family will need to decide if they want to pursue PEG or comfort care. Patient is not taking oral medications. 21. GI prophylaxis. Protonix 40 mg IV push daily. 22. DVT prophylaxis. SCDs and JARRET marcial. CODE STATUS: Full code. Prognosis guarded DISCHARGE PLAN Likely return to [facility] for subacute rehab. Impression and plan of care have been directed as dictated by the signing physician. Cindy Tobias nurse practitioner acting as scribe for signing physician. Objective - Vital Signs Vital signs: Vital Signs Temp 98.0 F 03/09/22 07:54 Pulse 80 03/09/22 07:54 Resp 18 03/09/22 07:54 BP 114/72 03/09/22 07:54 Pulse Ox 98 03/09/22 07:54 FiO2 Intake & Output 03/08/22 03/09/22 03/09/22 18:59 06:59 18:59 Output Total 1300 1200 Balance -1300 -1200 Weight 88 kg 87 kg Output: Urine 1300 1200 Other: Voiding Method Indwelling Catheter Indwelling Catheter # Bowel Movements 1 - Labs CBC & Chem 7: 03/07/22 05:02 03/07/22 05:02 Labs: Abnormal Lab Results - Last 24 Hours (Table) 03/08/22 03/08/22 03/08/22 Range/Units 09:49 10:06 13:00 POC Glucose (mg/dL) 55 L 127 H 58 L (70-110) mg/dL 03/08/22 03/09/22 Range/Units 23:55 05:41 POC Glucose (mg/dL) 136 H 191 H (70-110) mg/dL
[2022-03-09 11:47] LABS: Glucose,Whole Blood 123 mg/dL (70-110)
[2022-03-09 14:09] LABS: HCT 25.7 % (39.6-50.0); HGB 7.2 g/dL (13.0-17.0); MCH 28.2 pg (27.0-32.0); MCV 100.8 fL (80.0-97.0); Mean Platelet Volume 13.5 fL (9.5-12.2); NRBC Per 100 WBC 0 /100 WBCS (0.0-0.0); Platelet Count 79 X 10*3/uL (140-440); RBC 2.55 X 10*6/uL (4.40-5.60); RDW 15.2 % (11.5-14.5)
[2022-03-09 14:10] LABS: Immature Platelet Fraction 19.4 % (1.1-6.1)
[2022-03-09 14:28] LABS: African American GFR (CKD) 28.5 (60.0-200.0); Albumin 2.1 g/dL (3.8-4.9); Albumin/Globulin Ratio 0.72 (1.60-3.17); BUN/Creat Ratio 23.22 Ratio (12.00-20.00); Blood Urea Nitrogen 53.4 mg/dL (9.0-27.0); Calcium 7.6 mg/dL (8.7-10.3); Globulin 2.9 g/dL (1.6-3.3); Non-African American GFR(CKD) 24.6 (60.0-200.0); Potassium 4.7 mmol/L (3.5-5.5); Total Bilirubin 0.3 mg/dL (0.30-1.20)
[2022-03-09 16:42] LABS: Glucose,Whole Blood 112 mg/dL (70-110)
[2022-03-09] MEDS: SERTRALINE 50 MG TAB PO SCH (20:45)
[2022-03-09 23:59] LABS: Glucose,Whole Blood 148 mg/dL (70-110)
[2022-03-10] MEDS: LACTATED RINGERS 1,000 ML IV SCH ×2 (00:06→12:42)
[2022-03-10] MEDS: INSULIN ASPART (NovoLOG) 100 UNIT/ML VIAL SQ SCH ×4 (00:07→17:57)
--- NOTE | 2022-03-10 01:36 | P.PN ---
Subjective Progress Note Date: 03/09/22 Principal diagnosis: Sepsis UTI/aspiration pneumonia Patient is an 87 year old male with multiple comorbidities who was sent to the ER from shelter for a blood pressure and the patient was noticed to be lethargic and was concern for possible right lower lobe aspiration pneumonia as well as a UTI. On today's evaluation of 02/22/2022, The patient remains to be afebrile, the patient is breathing comfortably on nasal cannula oxygen, patient denies any chest pain and no worsening cough no abdominal pain and no diarrhea has been reported by the nursing staff Objective - Vital Signs Vital signs: Vital Signs Temp 98.0 F 03/09/22 07:54 Pulse 80 03/09/22 07:54 Resp 18 03/09/22 08:00 BP 114/72 03/09/22 07:54 Pulse Ox 98 03/09/22 07:54 FiO2 Intake & Output 03/08/22 03/09/22 03/09/22 18:59 06:59 18:59 Output Total 1300 1200 Balance -1300 -1200 Weight 88 kg 87 kg Output: Urine 1300 1200 Other: Voiding Method Indwelling Catheter Indwelling Catheter Indwelling Catheter # Bowel Movements 1 - Exam GENERAL DESCRIPTION: An elderly male lying in bed in no distress RESPIRATORY SYSTEM: Unlabored breathing , decreased breath sounds at bases HEART: S1 S2 regular rate and rhythm , ABDOMEN: Soft , no tenderness EXTREMITIES: No edema feet - Labs CBC & Chem 7: 03/09/22 06:39 03/09/22 06:39 Labs: Abnormal Lab Results - Last 24 Hours (Table) 03/08/22 03/08/22 03/09/22 Range/Units 13:00 23:55 05:41 POC Glucose (mg/dL) 58 L 136 H 191 H (70-110) mg/dL 03/09/22 Range/Units 11:45 POC Glucose (mg/dL) 123 H (70-110) mg/dL Assessment and Plan (1) Pneumonia Current Visit: Yes Status: Acute Code(s): J18.9 - PNEUMONIA, UNSPECIFIED ORGANISM SNOMED Code(s): 992710327 (2) UTI (urinary tract infection) Current Visit: Yes Status: Acute Code(s): N39.0 - URINARY TRACT INFECTION, SITE NOT SPECIFIED SNOMED Code(s): 96487373 Plan: 1patient presented to hospital with weakness lethargy head this patient did have evidence of UTI and possible right-sided pneumonia in this patient being a shelter resident will need to cover for resistant gram-negative with a likely pathogen. The patient urine however is currently showing enterococcus blood cultures have been negative so far sputum hasn't been collected 2 Patient did have some improvement and will continue with the Unasyn while inpatient and plan to finish therapy with oral Augmentin Time with Patient: Less than 30
[2022-03-10 06:13] LABS: Glucose,Whole Blood 128 mg/dL (70-110)
[2022-03-10] MEDS: allopurinoL 100 MG TAB PO SCH (07:51)
[2022-03-10] MEDS: FERROUS SULFATE 325 MG TAB PO SCH (07:51)
--- NOTE | 2022-03-10 08:45 | P.PN ---
Subjective Progress Note Date: 03/10/22 Principal diagnosis: Patient is seen because of acute kidney injury secondary to uncontrolled diabetes, diabetic ketoacidosis pneumonia. Slow improvement and he is able to answer some questions and follows commands. He has dementia and is therefore unreliable history is concerned He is awake and alert follow commands. His urine output is documented at 2500, 1200 last 2 days . He also has chronic kidney disease with a baseline creatinine 1.6. Likely diabetic nephropathy as well as solitary kidney status post left nephrectomy History of present illness: Patient is a 87-year-old male seen in renal consultation for acute kidney injury on chronic kidney disease and hypernatremia. Patient has chronic kidney disease stage III with baseline creatinine in the range of 1.3-1.4 secondary to solitary right kidney. Patient has history of left nephrectomy. Patient resides at an extended care facility and was brought to the hospital due to lethargy weakness and hypotension. Patient's sodium level on admission was 160 and is 161 this morning. Creatinine was 4.97 on admission and is 4.3 today. Patient was noted to be in DKA with blood sugars above 500. He is currently on insulin drip. He initially receive normal saline at 200 mL an hour and is now maintained on D5 W at 1 50 mL an hour. He is not on any vasopressor support. Oral intake is poor. Swallow eval is pending. I don't see any NSAIDs and his home medication list. Urine output has been about 40 mL an hour. Last hour it was 75 mL. No fever. UA suggestive of UTI. He did receive cefepime and is also on vancomycin. Objective - Vital Signs Vital signs: Vital Signs Temp 98.6 F 03/10/22 08:00 Pulse 79 03/10/22 08:00 Resp 16 03/10/22 08:00 BP 119/62 03/10/22 08:00 Pulse Ox 92 L 03/10/22 08:00 FiO2 Intake & Output 03/09/22 03/10/22 03/10/22 18:59 06:59 18:59 Intake Total 0 Output Total 1200 Balance -1200 Intake: Oral 0 Output: Urine 1200 Other: Voiding Method Indwelling Catheter Indwelling Catheter Indwelling Catheter On examination awake alert follows commands but slow to respond No JVP noted neck is supple no facial asymmetry Lungs are clear to auscultation good air entry bilaterally Heart sounds unremarkable for any murmur rub gallop Abdomen soft nontender Extremity exam was no edema Neurologically awake alert follows commands - Labs CBC & Chem 7: 03/09/22 06:39 03/09/22 06:39 Labs: Abnormal Lab Results - Last 24 Hours (Table) 03/09/22 03/09/22 03/09/22 Range/Units 06:39 06:39 11:45 RBC 2.55 L (4.40-5.60) X 10*6/uL Hgb 7.2 L (13.0-17.0) g/dL Hct 25.7 L (39.6-50.0) % MCV 100.8 H (80.0-97.0) fL MCHC 28.0 L (32.0-37.0) g/dL RDW 15.2 H (11.5-14.5) % Plt Count 79 L (140-440) X 10*3/uL MPV 13.5 H (9.5-12.2) fL Immature Plt Fraction 19.4 H (1.1-6.1) % BUN 53.4 H (9.0-27.0) mg/dL Creatinine 2.3 H (0.6-1.5) mg/dL Est GFR (CKD-EPI)AfAm 28.5 L (60.0-200.0) Est GFR (CKD-EPI)NonAf 24.6 L (60.0-200.0) BUN/Creatinine Ratio 23.22 H (12.00-20.00) Ratio Glucose 202 H (70-110) mg/dL POC Glucose (mg/dL) 123 H (70-110) mg/dL Calcium 7.6 L (8.7-10.3) mg/dL Total Protein 5.0 L (6.2-8.2) g/dL Albumin 2.1 L (3.8-4.9) g/dL Albumin/Globulin Ratio 0.72 L (1.60-3.17) g/dL 03/09/22 03/09/22 03/10/22 Range/Units 16:41 23:56 06:11 RBC (4.40-5.60) X 10*6/uL Hgb (13.0-17.0) g/dL Hct (39.6-50.0) % MCV (80.0-97.0) fL MCHC (32.0-37.0) g/dL RDW (11.5-14.5) % Plt Count (140-440) X 10*3/uL MPV (9.5-12.2) fL Immature Plt Fraction (1.1-6.1) % BUN (9.0-27.0) mg/dL Creatinine (0.6-1.5) mg/dL Est GFR (CKD-EPI)AfAm (60.0-200.0) Est GFR (CKD-EPI)NonAf (60.0-200.0) BUN/Creatinine Ratio (12.00-20.00) Ratio Glucose (70-110) mg/dL POC Glucose (mg/dL) 112 H 148 H 128 H (70-110) mg/dL Calcium (8.7-10.3) mg/dL Total Protein (6.2-8.2) g/dL Albumin (3.8-4.9) g/dL Albumin/Globulin Ratio (1.60-3.17) g/dL Assessment and Plan Assessment: Impression 1. Acute kidney injury secondary to DKA and uncontrolled diabetes and septic syndrome with pneumonia. Creatinine improved to 2.3 from admission peak of 4.97. 2. Dementia 3. Pneumonia. 4. Status post left nephrectomy, 5. Chronic kidney disease Baseline creatinine 1.6 6. History of atrial fibrillation COPD 7. Anemia hemoglobin 7.6, iron saturation is 36% on 03/01/2022. Recommendation 1. Continue IV fluids lactated Ringer's at 75 mL an hour 2. Avoid hypoglycemic episodes. 3. Continue darbepoetin and monitor labs
--- NOTE | 2022-03-10 09:20 | P.PN ---
Subjective Progress Note Date: 03/10/22 HISTORY OF PRESENT ILLNESS This is an 87-year-old male patient of Dr. Hurd with past medical history of Parkinsons disease, Alzheimers dementia, diabetes mellitus type 2, chronic atrial fibrillation not on anticoagulation due to retroperitoneal hematoma, history of pneumonia, benign prostatic hypertrophy, chronic kidney disease with history of left-sided nephrectomy, history of large retroperitoneal hematoma 04/2021, history of aspiration pneumonia. Patient was hospitalized at [facility] due to failure to thrive increasing weakness and difficulty ambulatingfor 2 weeks and progressively worsening. Patient was treated for UTI and streptococcal bacteremia seen by infectious disease thought this was a contamination. Echocardiogram did not show any abnormalities stafford spicious for endocarditis. ID recommended a short course of Ceftin and patient was discharged to [facility] for subacute rehab. Patient was subsequently admitted for A. fib RVR and aspiration pneumonia. He was stabilized and discharged back to [facility] for subacute rehab. Upon his return, patient has been more weak, less involved in his care then prior admissions yesterday, patient was transferred to [facility] emergency center due to altered mental status and hypotension. Patient was found to be afebrile, heart rate 122, respiratory rate 26, blood pressure 89/59, pulse ox 91% on nonrebreather. EKG was atrial fibrillation with RVR with a ventricular rate of 123. WBC 5.2, hemoglobin 10.5, platelet count 152. Sodium 160, potassium 5, chloride 125, CO2 18, anion gap 17, BUN 176, creatinine 4.9. Blood sugar 515. Lactic acid 3.2. Calcium 8.9. Magnesium 3.1. Total bilirubin 0.5, AST 13 ALT 15, alkaline phosphatase 79. Urinalysis cloudy, glucose 3+, blood small, leukoe sterase large, WBCs 103. Acetone positive Chest x-ray revealed infiltrate right lower lung CAT scan of the abdomen and pelvis without contrast revealed no evidence of retroperitoneal hematoma. Bibasilar pneumonia, correlate for aspiration. Correlate for hemorrhagic material within the urinary bladder. Urinary bladder wall thickening. CAT scan of the brain revealed age-related atrophy and chronic small vessel ischemic change without acute intracranial process. Stable chronic right sided subdural collection. No acute intracranial hemorrhage. Patient was admitted into intensive care unit, consult with nephrology and insulation mechanic.. 03/04: Patient is [facility] floor. He had an NG tube placed over the weekend and receiving Jevity at 40 ML's poor hour +300 ML's of water every 6 ho urs. Patient is on Unasyn for aspiration pneumonia. Patient is followed by pulmonary medicine, infectious disease and nephrology. Blood work today reveals WBC 6.2, hemoglobin 8.1 and platelet count of 80. Sodium 149, potassium 4.1, chloride 117, CO2 22, BUN 103 and creatinine 3.2. Capillary blood glucose running between 214 and 284. Urine culture was finalized with Enterococcus faecalis. IV fluids have been switched to D5W. Patient will be started on Levemir 15 units at bedtime, scheduled NovoLog 5 units every 6 hours and continue NovoLog scale. 03/05: Patient is slightly more alert today. He has been afebrile, heart rate 109, blood pressure 118/79, pulse ox 97% on 4 L nasal cannula. Repeat blood work reveals BUN 98 and creatinine 2.47, chloride 117, potassium 4.6. Capillary blood glucose running between 155 and 172. Patient is followed by pulmonary medicine, nephrology. Patient is continued on NG tube feedings with Jevity and free water flushes. 03/06: Patient has been evaluated by speech therapy at the bedside and has failed, worse than last week. Patient scheduled for modified barium swallow for tomorrow but suspect he most likely will require PEG tube placement. Dr. Cazares is making another attempt to contact patient's son. Patient has been afebrile, heart rate 97, blood pressure 151/82, pulse ox 99% on 4 L nasal cannula. Capillary blood glucose running between 134 and 229. Repeat blood work ordered for tomorrow. The patient is currently on feeding tubes at goal along with free water flushes. Ramirez catheter remains in place. He does have chronic Ramirez. 03/07: patient remains lethargic. He underwent modified barium swallow today and failed. Family will need to determine if they wish to go with a PEG tube or make patient comfort care. patient has had 2 NG tube removed by patient. Patient received Lasix yesterday forfluid overload and has had good urine output. Less edema today. Repeat blood work reveals WBC 10.9, hemoglobin 7.6 and platelet count 71. BUN 72 creatinine 2.4. With blood glucose this morning was 60. AST 66, ALT 51, alkaline phosphatase 70. 7/15: Patient is seen and followed by pulmonary medicine. Patient has now removed NG tube twice. Attempts have been made to contact patient's son regarding decisions regarding a PEG tube placement, comfort care and CODE STATUS. Repeat nursing updated that if family comes in in the afternoons or evenings, please contact Dr. Cazares to speak with the family regarding these issues. Patient is currently only receiving IV and subcu medications. Repeat chest x-ray 03/07 reveals pulmonary edema consistent with heart failure which is increased compared to recent exam. scheduled NovoLog and Levemir discontinued. Patient continues to have occasional cough, generalized significant weakness and mental status changes. He has been afebrile, heart rate 82, blood pressure 114/69, pulse ox 92% on 2 L nasal cannula. 03/09: Dr. Cazares was in contact with patient's and his son regarding patient's condition and prognoses as well as plan of care, they will decide regarding PEG tube placement but at this time, family have not made a decision. Nephrology has recommended IV fluids LR at 75 mL an hour, avoid hypoglycemic episodes, continue Aranesp and monitor lab work. Patient continues to be nothing by mouth. 03/10: Patient is laying down in bed he appears to be about the same he is not improving at all at this point in time, I had a conversation with his as well as his son recommended hospice/palliative care, they have not made a final decision, and the family elected to go for a full code patient will need to have a PEG tube placement and after that he would be transferred back to [facility] on the [place]. Patient has been on IV lactated Ringer, his sodium and potassium is good his creatinine still above the baseline his baseline creatinine is 1.6 currently 2.3, patient did not have any episode of hypoglycemia last night, patient is not able to swallow anything at this time, he had failed modified barium swallow, patient will need PEG tube if family elected for full code. REVIEW OF SYSTEMS Constitutional: No fever, no chills, no night sweats. No weight change. Noted weakness, noted fatigue no lethargy. Noted daytime sleepiness. EENT: No headache. No blurred vision or double vision, no loss of vision. No loss of Hearing, no ringingin the ears, no dizziness. No nasal drainage or congestion. No epistaxis. No sore throat. Lungs: + complaints of shortness of breath, + cough, no sputum production. No wheezing. Cardiovascular: No chest pain, no lower extremity edema. No palpitations. No paroxysmal nocturnal dyspnea. No orthopnea. No lightheadedness or dizziness. No syncopal episodes. Abdominal: No abdominal pain. No nausea, vomiting. No diarrhea. No constipation. No bloody or tarry stools. No loss of appetite. Genitourinary: No dysuria, increased frequency, urgency. No urinary retention. Musculoskeletal: No myalgias. No muscle weakness, reported gait dysfunction, no frequent falls. No back pain. No neck pain. Integumentary: No wounds, no lesions. No rash or pruritus. No unusual bruising. No change in hair or nails. Neurologic: No aphasia. No facial droop. Noted change in mentation continues. No head injury. No headache. No paralysis. No paresthesia. Psychiatric: Presumed depression. No anxiety. No mood swings. Endocrine: No abnormal blood sugars. No weight change. No excessive sweating or thirst. PHYSICAL EXAMINATION Gen: This is an 87-year-old male. He is resting in bed and appears to be comfortable. No respiratory distress is noted. HEENT: Head is atraumatic, normocephalic. Pupils equal, round. Sclerae is anicteric. NECK: Supple. No JVD. No lymphadenopathy. No thyromegaly. LUNGS: Decreased breath sounds bilaterally with a few scattered rhonchi. No intercostal retractions. +coughing HEART: Irregular rate and rhythm. 2/6 systolic murmur. ABDOMEN: Soft. Bowel sounds are present. No masses. No tenderness. Ramirez draining vincenzo urine with seiment. EXTREMITIES: No pedal edema. No calf tenderness. NEUROLOGICAL: Patient is lethargic, generalized weakness. ASSESSMENT AND PLAN 1. Acute sepsis and septic shock secondary to aspiration pneumonia and Ramirez catheter associated urinary tract infection. Continue patient management on the [facility] unit, pulmonary consult appreciated, patient is on Unasyn per infectious disease. Urine culture positive for Enterococcus faecalis. 2. Acute kidney injury secondary to hypovolemia and infection. Consult with nephrology appreciated. Patient is on D5W increased to 50 mL per hour due to hypoglycemia. 3. Hypernatremia due to poor oral water intake. Continue D5W. 4. DKA, diabetes mellitus type 2. patient now having episodes of hypoglycemia . Levemir is scheduled NovoLog discontinued. Continue NovoLog scale only. 5. Metabolic acidosis secondary to acute kidney injury and DKA. 6. Anemia of chronic disease. continue Aranesp 40 g subcu every 7 days, ferrous sulfate 325 mg daily. 7. A. fib with RVR. Patient started on Lopressor 12.5 mg twice daily No plan to start on anticoagulation due to previous bleeding. 8. Chronic atrial fibrillation not on anticoagulation due to retroperitoneal hematoma. 9. Metabolic encephalopathy secondary to pneumonia, UTI and sepsis. Continue treatment as above. 10. COPD without exacerbation. 11. Chronic hypoxic respiratory failure recently weaned off oxygen. 12. Diabetes mellitus type 2. Patient started on Levemir 15 units at bedtime, NovoLog 5 units every 6 hours and NovoLog scale. 13. Benign prostatic hypertrophy with urinary retention and chronic Ramirez catheter. 14. Chronic kidney disease stage III with history of left-sided nephrectomy. Avoid nephrotoxic agents. 15. History of large retroperitoneal hematoma with acute blood loss, stable, 04/2021. 16. Chronic gout. Continue allopurinol 100 mg daily. 17. Recurrent depression. Hold Zoloft 50 mg at bedtime. 18. Generalized anxiety disorder. 19. Pressure ulcer coccyx and pressure ulcer penis, present on admission. Continue local wound care and offloading. 20. Failed swallow evaluation and severe protein calorie malnutrition. Family will need to decide if they want to pursue PEG or comfort care. Patient is not taking oral medications. 21. GI prophylaxis. Protonix 40 mg IV push daily. 22. DVT prophylaxis. SCDs and JARRET hue. CODE STATUS: Full code. 23. Very poor prognosis Objective - Vital Signs Vital signs: Vital Signs Temp 98.6 F 03/10/22 08:00 Pulse 79 03/10/22 08:00 Resp 16 03/10/22 08:00 BP 119/62 03/10/22 08:00 Pulse Ox 92 L 03/10/22 08:00 FiO2 Intake & Output 03/09/22 03/10/22 03/10/22 18:59 06:59 18:59 Intake Total 0 Output Total 1200 Balance -1200 Intake: Oral 0 Output: Urine 1200 Other: Voiding Method Indwelling Catheter Indwelling Catheter Indwelling Catheter - Labs CBC & Chem 7: 03/09/22 06:39 03/09/22 06:39 Labs: Abnormal Lab Results - Last 24 Hours (Table) 03/09/22 03/09/22 03/09/22 Range/Units 06:39 06:39 11:45 RBC 2.55 L (4.40-5.60) X 10*6/uL Hgb 7.2 L (13.0-17.0) g/dL Hct 25.7 L (39.6-50.0) % MCV 100.8 H (80.0-97.0) fL MCHC 28.0 L (32.0-37.0) g/dL RDW 15.2 H (11.5-14.5) % Plt Count 79 L (140-440) X 10*3/uL MPV 13.5 H (9.5-12.2) fL Immature Plt Fraction 19.4 H (1.1-6.1) % BUN 53.4 H (9.0-27.0) mg/dL Creatinine 2.3 H (0.6-1.5) mg/dL Est GFR (CKD-EPI)AfAm 28.5 L (60.0-200.0) Est GFR (CKD-EPI)NonAf 24.6 L (60.0-200.0) BUN/Creatinine Ratio 23.22 H (12.00-20.00) Ratio Glucose 202 H (70-110) mg/dL POC Glucose (mg/dL) 123 H (70-110) mg/dL Calcium 7.6 L (8.7-10.3) mg/dL Total Protein 5.0 L (6.2-8.2) g/dL Albumin 2.1 L (3.8-4.9) g/dL Albumin/Globulin Ratio 0.72 L (1.60-3.17) g/dL 03/09/22 03/09/22 03/10/22 Range/Units 16:41 23:56 06:11 RBC (4.40-5.60) X 10*6/uL Hgb (13.0-17.0) g/dL Hct (39.6-50.0) % MCV (80.0-97.0) fL MCHC (32.0-37.0) g/dL RDW (11.5-14.5) % Plt Count (140-440) X 10*3/uL MPV (9.5-12.2) fL Immature Plt Fraction (1.1-6.1) % BUN (9.0-27.0) mg/dL Creatinine (0.6-1.5) mg/dL Est GFR (CKD-EPI)AfAm (60.0-200.0) Est GFR (CKD-EPI)NonAf (60.0-200.0) BUN/Creatinine Ratio (12.00-20.00) Ratio Glucose (70-110) mg/dL POC Glucose (mg/dL) 112 H 148 H 128 H (70-110) mg/dL Calcium (8.7-10.3) mg/dL Total Protein (6.2-8.2) g/dL Albumin (3.8-4.9) g/dL Albumin/Globulin Ratio (1.60-3.17) g/dL
[2022-03-10] MEDS: METOPROLOL TARTRATE 12.5 MG TAB PO SCH ×2 (09:35→20:07)
[2022-03-10] MEDS: PANTOPRAZOLE 40 MG/10 ML VIAL IVP SCH (09:35)
[2022-03-10] MEDS: AMPICILLIN-SULBACTAM 3 GM in SODIUM CHLORIDE 0.9% 100 ML IVPB SCH ×2 (09:35→21:37)
[2022-03-10 11:45] LABS: Glucose,Whole Blood 121 mg/dL (70-110)
[2022-03-10] MEDS: DARBEPOETIN ALFA 40 MCG/0.4 ML SYRINGE SQ SCH (12:41)
[2022-03-10 17:47] LABS: Glucose,Whole Blood 103 mg/dL (70-110)
[2022-03-10] MEDS: SERTRALINE 50 MG TAB PO SCH (20:07)
[2022-03-11 00:07] LABS: Glucose,Whole Blood 98 mg/dL (70-110)
[2022-03-11] MEDS: LACTATED RINGERS 1,000 ML IV SCH (00:18)
[2022-03-11] MEDS: INSULIN ASPART (NovoLOG) 100 UNIT/ML VIAL SQ SCH ×4 (00:18→17:19)
[2022-03-11 05:28] LABS: Glucose,Whole Blood 110 mg/dL (70-110)
[2022-03-11] MEDS: PANTOPRAZOLE 40 MG/10 ML VIAL IVP SCH (08:21)
[2022-03-11] MEDS: AMPICILLIN-SULBACTAM 3 GM in SODIUM CHLORIDE 0.9% 100 ML IVPB SCH ×2 (08:37→21:48)
[2022-03-11] MEDS: FERROUS SULFATE 325 MG TAB PO SCH (08:38)
[2022-03-11] MEDS: METOPROLOL TARTRATE 12.5 MG TAB PO SCH ×2 (08:38→22:17)
[2022-03-11] MEDS: allopurinoL 100 MG TAB PO SCH (08:38)
[2022-03-11 08:44] LABS: African American GFR (CKD) 33.8 (60.0-200.0); Albumin 2.3 g/dL (3.8-4.9); Albumin/Globulin Ratio 0.85 (1.60-3.17); Anion Gap 15.6 mmol/L (10.00-18.00); BUN/Creat Ratio 17.95 Ratio (12.00-20.00); Blood Urea Nitrogen 35.9 mg/dL (9.0-27.0); Calcium 7.8 mg/dL (8.7-10.3); Carbon Dioxide 23.4 mmol/L (20.0-27.5); Globulin 2.7 g/dL (1.6-3.3); Non-African American GFR(CKD) 29.1 (60.0-200.0); Potassium 4.6 mmol/L (3.5-5.5); Total Bilirubin 0.3 mg/dL (0.30-1.20)
[2022-03-11 09:35] LABS: Basophils # (A) 0.02 X 10*3/uL (0.00-0.10); Basophils % (A) 0.4 %; Elliptocytes 2+; Eosinophils # (A) 0.08 X 10*3/uL (0.04-0.35); Eosinophils % (A) 1.5 %; HCT 25.3 % (39.6-50.0); HGB 7.4 g/dL (13.0-17.0); Immature Grans, Automated 1.1 %; Immature Platelet Fraction 15.6 % (1.1-6.1); Lymphocytes # (A) 0.73 X 10*3/uL (0.90-5.00); Lymphocytes % (A) 13.8 %; MCH 28.8 pg (27.0-32.0); MCHC 29.2 g/dL (32.0-37.0); MCV 98.4 fL (80.0-97.0); Monocytes # (A) 0.34 X 10*3/uL (0.20-1.00); Monocytes % (A) 6.4 %; NRBC Per 100 WBC 0 /100 WBCS (0.0-0.0); Neutrophils # (A) 4.05 X 10*3/uL (1.80-7.70); Neutrophils % (A) 76.8 %; Platelet Count 42 X 10*3/uL (140-440); RBC 2.57 X 10*6/uL (4.40-5.60); RDW 14.7 % (11.5-14.5); WBC 5.28 X 10*3/uL (4.50-10.00)
--- NOTE | 2022-03-11 10:50 | P.PN ---
Subjective Progress Note Date: 03/10/22 Principal diagnosis: Sepsis UTI/aspiration pneumonia Patient is an 87 year old male with multiple comorbidities who was sent to the ER from [facility] for a blood pressure and the patient was noticed to be lethargic and was concern for possible right lower lobe aspiration pneumonia as well as a UTI. On today's evaluation of 03/10/2022, The patient continues to be afebrile, the patient is breathing comfortably on nasal cannula oxygen, patient denies any chest pain , patient did have occasional cough and no sputum no choking the fourth and no vomiting or diarrhea reported by the nursing staff Objective - Vital Signs Vital signs: Vital Signs Temp 98.6 F 03/10/22 08:00 Pulse 79 03/10/22 08:00 Resp 16 03/10/22 08:00 BP 119/62 03/10/22 08:00 Pulse Ox 92 L 03/10/22 08:00 FiO2 Intake & Output 03/09/22 03/10/22 03/10/22 18:59 06:59 18:59 Intake Total 0 Output Total 1200 Balance -1200 Intake: Oral 0 Output: Urine 1200 Other: Voiding Method Indwelling Catheter Indwelling Catheter Indwelling Catheter - Exam GENERAL DESCRIPTION: An elderly male lying in bed in no distress RESPIRATORY SYSTEM: Unlabored breathing , decreased breath sounds at bases HEART: S1 S2 regular rate and rhythm , ABDOMEN: Soft , no tenderness EXTREMITIES: No edema feet - Labs CBC & Chem 7: 03/11/22 05:48 03/11/22 05:48 Labs: Abnormal Lab Results - Last 24 Hours (Table) 03/09/22 03/09/22 03/10/22 Range/Units 16:41 23:56 06:11 POC Glucose (mg/dL) 112 H 148 H 128 H (70-110) mg/dL 03/10/22 Range/Units 11:44 POC Glucose (mg/dL) 121 H (70-110) mg/dL Assessment and Plan (1) Pneumonia Current Visit: Yes Status: Acute Code(s): J18.9 - PNEUMONIA, UNSPECIFIED ORGANISM SNOMED Code(s): 031780400 (2) UTI (urinary tract infection) Current Visit: Yes Status: Acute Code(s): N39.0 - URINARY TRACT INFECTION, SITE NOT SPECIFIED SNOMED Code(s): 99792800 Plan: 1patient presented to hospital with weakness lethargy head this patient did have evidence of UTI and possible right-sided pneumonia in this patient being a retirement resident will need to cover for resistant gram-negative with a likely pathogen. The patient urine however is currently showing enterococcus blood cultures have been negative so far sputum hasn't been collected 2 Patient is slowly clinical improvement and is currently being treated with the Unasyn which will be continued while inpatient and plan to finish therapy with oral Augmentin Time with Patient: Less than 30
--- NOTE | 2022-03-11 11:54 | P.PN ---
Subjective Patient is seen in follow-up for acute kidney injury and electrolyte imbalance. Renal function improving. Sodium 151 today. Patient is nothing by mouth. Has pulled out NG tube. Has a Ramirez catheter. Nonoliguric. Vital signs are stable. General: Awake. No acute distress. HEENT: Head exam is unremarkable. LUNGS: Breath sounds decreased. HEART: Rate and Rhythm are regular. ABDOMEN: Soft, no distention. EXTREMITITES: No edema. Objective - Vital Signs Vital signs: Vital Signs Temp 98.0 F 03/11/22 07:20 Pulse 66 03/11/22 07:20 Resp 20 03/11/22 07:20 BP 116/75 03/11/22 07:20 Pulse Ox 99 03/11/22 07:20 FiO2 Intake & Output 03/10/22 03/11/22 03/11/22 18:59 06:59 18:59 Intake Total 0 Output Total 1900 1200 Balance -1900 -1200 Weight 87.5 kg Intake: Oral 0 Output: Urine 1900 1200 Other: Voiding Method Indwelling Catheter Indwelling Catheter - Labs CBC & Chem 7: 03/11/22 05:48 03/11/22 05:48 Labs: Abnormal Lab Results - Last 24 Hours (Table) 03/10/22 03/11/22 03/11/22 Range/Units 11:44 05:48 05:48 RBC 2.57 L (4.40-5.60) X 10*6/uL Hgb 7.4 L (13.0-17.0) g/dL Hct 25.3 L (39.6-50.0) % MCV 98.4 H (80.0-97.0) fL MCHC 29.2 L (32.0-37.0) g/dL RDW 14.7 H (11.5-14.5) % Plt Count 42 L (140-440) X 10*3/uL Plt Count Comment A Immature Gran # 0.06 H (0.00-0.04) X 10*3/uL Lymphocytes # 0.73 L (0.90-5.00) X 10*3/uL Immature Plt Fraction 15.6 H (1.1-6.1) % Sodium 151 H (135-145) mmol/L Chloride 112 H (96-109) mmol/L BUN 35.9 H (9.0-27.0) mg/dL Creatinine 2.0 H (0.6-1.5) mg/dL Est GFR (CKD-EPI)AfAm 33.8 L (60.0-200.0) Est GFR (CKD-EPI)NonAf 29.1 L (60.0-200.0) Glucose 116 H (70-110) mg/dL POC Glucose (mg/dL) 121 H (70-110) mg/dL Calcium 7.8 L (8.7-10.3) mg/dL Total Protein 5.0 L (6.2-8.2) g/dL Albumin 2.3 L (3.8-4.9) g/dL Albumin/Globulin Ratio 0.85 L (1.60-3.17) g/dL Assessment and Plan Plan: Assessment: 1. Acute kidney injury mostly prerenal secondary to hypovolemia and infection. Creatinine was 4.9 on admission and is 2.0 today. No hydronephrosis noted on CAT scan. 2. Chronic kidney disease stage IIIa secondary to solitary right kidney. 3. Status post left nephrectomy. 4. Hypernatremia from lack of oral water intake. 5. DKA s/p insulin drip. 6. Metabolic acidosis secondary to acute kidney injury and DKA. Improved. 7. History of dementia. 8. Anemia of chronic kidney disease. Iron replete. On Aranesp. 9. UTI and possible pneumonia on antibiotics. Urine culture positive for group D enterococcus. Infectious disease following. Plan: Start D5W at 100 mL an hour. Recheck sodium level at 7 PM today. Continue to monitor renal function and urine output Repeat labs in the morning. Await family decision regarding PEG tube placement.
[2022-03-11 12:19] LABS: Glucose,Whole Blood 103 mg/dL (70-110)
[2022-03-11] MEDS: DEXTROSE 5% IN WATER 1,000 ML IV SCH (12:19)
--- NOTE | 2022-03-11 13:58 | P.PN ---
Subjective Progress Note Date: 03/11/22 Principal diagnosis: Weakness, hypernatremia, altered mental status, diabetic ketoacidosis, suspected aspiration pneumonia, acute UTI This is an 87-year-old white male with history of multiple comorbidities, patient was brought yesterday by EMS from the nursing facility with mostly complaints of low blood pressure and the patient has been noted to be lethargic. Patient had previous history of documented coronary artery disease, history of intracranial hemorrhage/subdural hematoma, chronic atrial fibrillation, hypertension, diabetes. Patient is not a great historian, apparently when he arrived to the ER, patient was found to have multiple abnormal labs including blood sugar over 500 anion gap metabolic acidosis hypernatremia with sodium of 160 acute kidney injury with BUN of 169 and creatinine 4.75, abnormal urinalysis, and abnormal chest x-ray suggestive of right lower lobe pneumonia questionable aspiration pneumonia considering the patient's overall mental statu s patient was obviously septic, and dehydrated upon his initial presentation. He received fluid boluses, blood pressure responded to fluid boluses but the patient did not require to be placed on pressors. Patient was placed empirically on antibiotics for presumptive pneumonia and possible urinary tract infection he was placed on the DKA protocol, and when the ER physician discussed the case with me I recommended definite admission to the ICU. Saw the patient this morning, remains on insulin drip at 1 unit per hour. His IV fluid was transitioned from 0.9 normal saline to D5W at 200 mL per hour. Patient is making urine around 50 mL per hour. More fluid boluses were given this morning. And we are closely monitoring his electrolytes and renal profile sodium remains relatively elevated at 160. However his anion gap corrected nicely and his anion gap this morning is 10. Bicarb is 18. Renal profile showed slight improvement since yesterday on admission ABG on admission showed a pO2 of 88 pCO2 31 pH of 7.37 and this was on the percent FiO2 in the ER. Presently the patient is on nasal cannula at 4 L/m and O2 saturations 93% cultures are pending patient remains on Zosyn and I discontinued his cefepime and vancomycin. Reevaluated today on 03/02/2022, patient remains in the ICU, she is on 2 L nasal cannula, O2 sats is 96%. Patient continues to be relatively lethargic, continues to have significant non-anion gap metabolic acidosis, placed on bicarb drip at 150 mL per hour. Continues to have hypernatremia however the sodium is improving and today I recommended free water flushes through a nasogastric tube to be placed mode every 4 nutritional support and also for free water flushes. Patient remains to have significant free water deficit with relatively high sodium. Mentation remains poor, patient is lethargic, arousable, unable to swallow on his own. Hence I feel it would be best to start enteral feeding via nasogastric tube today. He has a very poor appetite, and does not seem to swallow well. Remains in atrial fibrillation with controlled rate. Denies any shortness of breath cough wheezing denies any nausea vomiting or abdominal pain. Sodium today is 153 bicarb is 16 anion gap is 10 and BUN is 149 and creatinine 3.72. Reevaluated today on 03/03/2022, patient remains in the ICU, he is doing much better today compared to the last couple of days. His sodium has corrected nicely is down to 147 today. His bicarb also corrected nicely and he is off bicarb drip. Patient is on 4 L nasal cannula with O2 sats of 93%. His IV fluid is D5 4 5 at 75 mL/h and I have cut down his free water flushes to 200 mL every 6 hours via nasogastric tube. Patient is also receiving enteral feeding. Patient is awake but remains confused. Today I plan to transfer the patient out of the ICU, he can go to a regular medical floor, he will need to have swallow evaluation and may even have to consider a PEG tube placement if he failed the swallow evaluation. In the meantime we are continuing his antibiotics for presumptive sepsis and aspiration pneumonia. CBC today is relatively unremarkable. His BUN is down to 125 creatinine is down to 3.27. And sodium is 147 bicarb is 23. On 03/04/2022 patient seen in follow-up on medical surgical floor, he was transferred out of intensive care unit yesterday, he is much more awake and responsive on today's exam, he still confused, but appears to be in no distress, breathing comfortably, FiO2 is 4 L pulse ox is 96%, afebrile, blood pressures stable. NG tube remains in place the patient has Jevity infusing at a rate of 40 ML per hour, with 300 mL free water flushes every 6 hours. In addition patient remains on D5W at a rate of 75 ML per hour, he is on Unasyn for urine checked infection related to enterococcus faecalis. No nausea or vomiting, no diarrhea, abdomen is soft. Follow-up chest x-ray today shows chronic changes, with bibasilar opacities with slight worsening at the left lung base. Clinically patient denies any worsening dyspnea no cough, no chest congestion or chest pain. Today's labs have been reviewed, white blood cell count of 6.3, hemoglobin is 8.1, sodium today is 149, potassium is 4.1, BUN is 103, creatinine 3.2 renal profile is improving On 03/05/2022 patient seen in follow-up on medical surgical floor. He is awake and alert, he is oriented to person only, disoriented to place and time. Denies any acute distress, no complaints of shortness of breath or cough, no chest discomfort, he remains on D5W at 75 ML per hour, NG tube remains in place with Jevity infusing at 67 ML per hour and free water flushes. His been afebrile. He remains on Unasyn for enterococcus faecalis urinary tract infection. No fever or chills. He was seen by speech therapy and evaluation, and the recommendation has been made to continue with tube feedings for now as the patient's been noted to have increased congestion, and wet voice during the speech evaluation. However his level of consciousness significantly improved since admission. On 03/06/2020 patient seen in follow-up on an apical surgical floor. He is lethargic on today's exam, but does wake up to verbal stimulation, seems comf ortable, no evidence of any respiratory difficulty, he remains on 4 L of oxygen pulse ox is 95-90%, vital signs have been stable, no fever or chills, he remains on Unasyn for Enterococcus faecalis urinary tract infection. NG tube remains in place and tube feedings in the form of Jevity solution is infusing at a rate of 67 ML per hour, and patient remains on 300 mL free water flushes every 6 hours. In addition patient remains on D5W at a rate of 75 ML per hour, nephrology is following, today's labs are still pending for today, but yesterday's labs showed improving serum sodium which is down to 145, potassium is 4.6, renal profile was noted to be improving, BUN was down to 98, creatinine was 2.47. On 03/11/2022 patient seen in follow-up on medical surgical floor. Patient is lethargic, but arousable to voice, does not appear to be in any acute distress. On 4 L of oxygen his pulse ox is 93%, his been afebrile overnight. Patient has remained nothing by mouth, currently remains on Lactated Ringer's at 75 ML per hour, patient's sodium is on the rise and is up to 151 on today's labs., patient had pulled out his NG tube 2 in the last several days. Patient had a modified barium swallow and there was moderate silent aspiration of thin liquids and nectar thick barium. Patient also remains on IV antibiotics with Unasyn for evidence of Enterococcus faecalis urinary tract infection. Last chest x-ray from 03/07/2022 showed interstitial interstitial and airspace edema. Patient does not appear to be in any respiratory distress. The recommendation was for consideration of alternative method of feeding possibly PEG tube placement. Objective - Vital Signs Vital signs: Vital Signs Temp 98.0 F 03/11/22 07:20 Pulse 66 03/11/22 07:20 Resp 20 03/11/22 07:20 BP 116/75 03/11/22 07:20 Pulse Ox 99 03/11/22 07:20 FiO2 Intake & Output 03/10/22 03/11/22 03/11/22 18:59 06:59 18:59 Intake Total 0 Output Total 1900 1200 Balance -1900 -1200 Weight 87.5 kg Intake: Oral 0 Output: Urine 1900 1200 Other: Voiding Method Indwelling Catheter Indwelling Catheter - Exam GENERAL EXAM: Sleepy but does wake up to voice very pleasant, 87-year-old white male, pleasantly confused, oriented to self, on 4 L of oxygen pulse ox is 96% comfortable in no apparent distress. HEAD: Normocephalic/atraumatic. EYES: Normal reaction of pupils, equal size. Conjunctiva pink, sclera white. NOSE: Clear with pink turbinates. THROAT: No erythema or exudates. NECK: No masses, no JVD, no thyroid enlargement, no adenopathy. CHEST: No chest wall deformity. Symmetrical expansion. LUNGS: Equal air entry with no crackles, wheeze, rhonchi or dullness. CVS: Regular rate and rhythm, normal S1 and S2, no gallops, no murmurs, no rubs ABDOMEN: Soft, nontender. No hepatosplenomegaly, normal bowel sounds, no guarding or rigidity. EXTREMITIES: No clubbing, no edema, no cyanosis, 2+ pulses and upper and lower extremities. MUSCULOSKELETAL: Muscle strength and tone normal. SPINE: No scoliosis or deformity SKIN: No rashes CENTRAL NERVOUS SYSTEM: Alert and oriented -1. No focal deficits, tone is normal in all 4 extremities. PSYCHIATRIC: Alert and oriented -1. Appropriate affect. Intact judgment and insight. - Labs CBC & Chem 7: 03/11/22 05:48 03/11/22 05:48 Labs: Abnormal Lab Results - Last 24 Hours (Table) 03/11/22 03/11/22 Range/Units 05:48 05:48 RBC 2.57 L (4.40-5.60) X 10*6/uL Hgb 7.4 L (13.0-17.0) g/dL Hct 25.3 L (39.6-50.0) % MCV 98.4 H (80.0-97.0) fL MCHC 29.2 L (32.0-37.0) g/dL RDW 14.7 H (11.5-14.5) % Plt Count 42 L (140-440) X 10*3/uL Plt Count Comment A Immature Gran # 0.06 H (0.00-0.04) X 10*3/uL Lymphocytes # 0.73 L (0.90-5.00) X 10*3/uL Immature Plt Fraction 15.6 H (1.1-6.1) % Sodium 151 H (135-145) mmol/L Chloride 112 H (96-109) mmol/L BUN 35.9 H (9.0-27.0) mg/dL Creatinine 2.0 H (0.6-1.5) mg/dL Est GFR (CKD-EPI)AfAm 33.8 L (60.0-200.0) Est GFR (CKD-EPI)NonAf 29.1 L (60.0-200.0) Glucose 116 H (70-110) mg/dL Calcium 7.8 L (8.7-10.3) mg/dL Total Protein 5.0 L (6.2-8.2) g/dL Albumin 2.3 L (3.8-4.9) g/dL Albumin/Globulin Ratio 0.85 L (1.60-3.17) g/dL Assessment and Plan Plan: Assessment: 1 Acute sepsis related to possible aspiration pneumonia, and urinary tract infection with urine culture positive for enterococcus faecalis, currently on Unasyn 2 Altered mental status related to the above 3 Hypernatremia R/T poor oral intake, status nothing by mouth and evidence of silent aspiration on thin and nectar fluids 4 Acute on chronic kidney disease, patient has a history of chronic disease stage IIIa and as solitary right kidney, renal function is improving 5 Profound dehydration secondary to the above, improving 6 History of Alzheimer's dementia 7 Acute aspiration pneumonia 8 Acute urinary tract infection group D enterococcus on Unasyn Plan: Switch IV fluids from lactated Ringer's to D5W at a rate of 100 ML per hour Patient has failed modified barium swallow PEG tube placement is recommended versus possible comfort care Await further decision from family Wean FiO2 Maintain aspiration precautions I have personally seen and examined the patient, performed the documentation and the assessment and plan as written. Number of minutes spent on the visit: [10] I have personally seen and examined the patient and reviewed the documentation. I performed a joint evaluation with the nurse practitioner in this evaluation was done more than 20 minutes. I fully agree with the documentation above and the plan of care.. This patient is being considered for PEG tube insertion. Meanwhile, the patient's sodium is quite elevated. Switch this patient to D5 water at the rate of 100 mL an hour. Also, cover the patient on antibiotics regarding UTI pneumonia. The patient is currently on Unasyn. Long-term prognosis poor based on the above-mentioned comorbidities. Time with Patient: Less than 30
--- NOTE | 2022-03-11 15:47 | P.PN ---
Subjective Progress Note Date: 03/11/22 HISTORY OF PRESENT ILLNESS This is an 87-year-old male patient of Dr. Hurd with past medical history of Parkinsons disease, Alzheimers dementia, diabetes mellitus type 2, chronic atrial fibrillation not on anticoagulation due to retroperitoneal hematoma, history of pneumonia, benign prostatic hypertrophy, chronic kidney disease with history of left-sided nephrectomy, history of large retroperitoneal hematoma 04/2021, history of aspiration pneumonia. Patient was hospitalized at [facility] due to failure to thrive increasing weakness and difficulty ambulatingfor 2 weeks and progressively worsening. Patient was treated for UTI and streptococcal bacteremia seen by infectious disease thought this was a contamination. Echocardiogram did not show any abnormalities stafford spicious for endocarditis. ID recommended a short course of Ceftin and patient was discharged to [facility] for subacute rehab. Patient was subsequently admitted for A. fib RVR and aspiration pneumonia. He was stabilized and discharged back to [facility] for subacute rehab. Upon his return, patient has been more weak, less involved in his care then prior admissions yesterday, patient was transferred to [facility] emergency center due to altered mental status and hypotension. Patient was found to be afebrile, heart rate 122, respiratory rate 26, blood pressure 89/59, pulse ox 91% on nonrebreather. EKG was atrial fibrillation with RVR with a ventricular rate of 123. WBC 5.2, hemoglobin 10.5, platelet count 152. Sodium 160, potassium 5, chloride 125, CO2 18, anion gap 17, BUN 176, creatinine 4.9. Blood sugar 515. Lactic acid 3.2. Calcium 8.9. Magnesium 3.1. Total bilirubin 0.5, AST 13 ALT 15, alkaline phosphatase 79. Urinalysis cloudy, glucose 3+, blood small, leukoe sterase large, WBCs 103. Acetone positive Chest x-ray revealed infiltrate right lower lung CAT scan of the abdomen and pelvis without contrast revealed no evidence of retroperitoneal hematoma. Bibasilar pneumonia, correlate for aspiration. Correlate for hemorrhagic material within the urinary bladder. Urinary bladder wall thickening. CAT scan of the brain revealed age-related atrophy and chronic small vessel ischemic change without acute intracranial process. Stable chronic right sided subdural collection. No acute intracranial hemorrhage. 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 03/04: Patient is seen on the [facility] floor. He had an NG tube placed over the weekend and receiving Jevity at 40 ML's poor hour +300 ML's of water every 6 ho urs. Patient is on Unasyn for aspiration pneumonia. Patient is followed by pulmonary medicine, infectious disease and nephrology. Blood work today reveals WBC 6.2, hemoglobin 8.1 and platelet count of 80. Sodium 149, potassium 4.1, chloride 117, CO2 22, BUN 103 and creatinine 3.2. Capillary blood glucose running between 214 and 284. Urine culture was finalized with Enterococcus faecalis. IV fluids have been switched to D5W. Patient will be started on Levemir 15 units at bedtime, scheduled NovoLog 5 units every 6 hours and continue NovoLog scale. 03/05: Patient is slightly more alert today. He has been afebrile, heart rate 109, blood pressure 118/79, pulse ox 97% on 4 L nasal cannula. Repeat blood work reveals BUN 98 and creatinine 2.47, chloride 117, potassium 4.6. Capillary blood glucose running between 155 and 172. Patient is followed by pulmonary medicine, nephrology. Patient is continued on NG tube feedings with Jevity and free water flushes. 03/06: Patient has been evaluated by speech therapy at the bedside and has failed, worse than last week. Patient scheduled for modified barium swallow for tomorrow but suspect he most likely will require PEG tube placement. Dr. Cazares is making another attempt to contact patient's son. Patient has been afebrile, heart rate 97, blood pressure 151/82, pulse ox 99% on 4 L nasal cannula. Capillary blood glucose running between 134 and 229. Repeat blood work ordered for tomorrow. The patient is currently on feeding tubes at goal along with free water flushes. Ramirez catheter remains in place. He does have chronic Ramirez. 03/07: patient remains lethargic. He underwent modified barium swallow today and failed. Family will need to determine if they wish to go with a PEG tube or make patient comfort care. patient has had 2 NG tube removed by patient. Patient received Lasix yesterday forfluid overload and has had good urine output. Less edema today. Repeat blood work reveals WBC 10.9, hemoglobin 7.6 and platelet count 71. BUN 72 creatinine 2.4. With blood glucose this morning was 60. AST 66, ALT 51, alkaline phosphatase 70. 7/15: Patient is seen and followed by pulmonary medicine. Patient has now removed NG tube twice. Attempts have been made to contact patient's son regarding decisions regarding a PEG tube placement, comfort care and CODE STATUS. Repeat nursing updated that if family comes in in the afternoons or evenings, please contact Dr. Cazares to speak with the family regarding these issues. Patient is currently only receiving IV and subcu medications. Repeat chest x-ray 03/07 reveals pulmonary edema consistent with heart failure which is increased compared to recent exam. scheduled NovoLog and Levemir discontinued. Patient continues to have occasional cough, generalized significant weakness and mental status changes. He has been afebrile, heart rate 82, blood pressure 114/69, pulse ox 92% on 2 L nasal cannula. 03/09: Dr. Cazares was in contact with patient's and his son regarding patient's condition and prognoses as well as plan of care, they will decide regarding PEG tube placement but at this time, family have not made a decision. Nephrology has recommended IV fluids LR at 75 mL an hour, avoid hypoglycemic episodes, continue Aranesp and monitor lab work. Patient continues to be nothing by mouth. 03/10: Patient is laying down in bed he appears to be about the same he is not improving at all at this point in time, I had a conversation with his as well as his son recommended hospice/palliative care, they have not made a final decision, and the family elected to go for a full code patient will need to have a PEG tube placement and after that he would be transferred back to [facility] the [place]. Patient has been on IV lactated Ringer, his sodium and potassium is good his creatinine still above the baseline his baseline creatinine is 1.6 currently 2.3, patient did not have any episode of hypoglycemia last night, patient is not able to swallow anything at this time, he had failed modified barium swallow, patient will need PEG tube if family elected for full code. 03/11: The patient is seen today on the [facility] floor. Contacted patient's son Yamil and family want to proceed with PEG tube insertion and feedings. Consult placed with Dr. Talbert and will see the patient tomorrow. However due to low platelet count, doubt that PEG tube can be placed. Patient is continued on IV antibiotics with Unasyn for urinary tract infection. No respiratory distress noted. Patient is been afebrile, heart rate 65, blood pressure 154/76, pulse ox 94% on 4 L nasal cannula. Repeat blood work reveals WBC 5.2, hemoglobin 7.4 platelet count 42. Sodium 151, potassium 4.6, chloride 112, CO2 is 23, BUN 35, creatinine 2.0. Glucose 116. Capillary blood glucose running between 98 and 110. Total bilirubin 0.3. Liver function tests are normal. REVIEW OF SYSTEMS Constitutional: No fever, no chills, no night sweats. No weight change. Noted weakness, noted fatigue no lethargy. Noted daytime sleepiness. EENT: No headache. No blurred vision or double vision, no loss of vision. No loss of Hearing, no ringingin the ears, no dizziness. No nasal drainage or congestion. No epistaxis. No sore throat. Lungs: No complaints of shortness of breath, + cough-appears improved, no sputum production. No wheezing. Cardiovascular: No chest pain, no lower extremity edema. No palpitations. No paroxysmal nocturnal dyspnea. No orthopnea. No lightheadedness or dizziness. No syncopal episodes. Abdominal: No abdominal pain. No nausea, vomiting. No diarrhea. No con stipation. No bloody or tarry stools. No loss of appetite. Genitourinary: No dysuria, increased frequency, urgency. No urinary retention. Musculoskeletal: No myalgias. No muscle weakness, reported gait dysfunction, no frequent falls. No back pain. No neck pain. Integumentary: No wounds, no lesions. No rash or pruritus. No unusual bruising. No change in hair or nails. Neurologic: No aphasia. No facial droop. Noted change in mentation continues. No head injury. No headache. No paralysis. No paresthesia. Psychiatric: Presumed depression. No anxiety. No mood swings. Endocrine: No abnormal blood sugars. No weight change. No excessive sweating or thirst. PHYSICAL EXAMINATION Gen: This is an 87-year-old male. He is resting in bed and appears to be comfortable. No respiratory distress is noted. HEENT: Head is atraumatic, normocephalic. Pupils equal, round. Sclerae is anicteric. NECK: Supple. No JVD. No lymphadenopathy. No thyromegaly. LUNGS: Decreased breath sounds bilaterally with a few scattered rhonchi. No intercostal retractions. HEART: Irregular rate and rhythm. 2/6 systolic murmur. ABDOMEN: Soft. Bowel sounds are present. No masses. No tenderness. Ramirez zachariah ining vincenzo urine with seiment. EXTREMITIES: No pedal edema. No calf tenderness. NEUROLOGICAL: Patient is lethargic, generalized weakness. ASSESSMENT AND PLAN 1. Acute sepsis and septic shock secondary to aspiration pneumonia and Ramirez catheter associated urinary tract infection. Continue patient management on the [facility] unit, pulmonary consult appreciated, patient is on Unasyn per infectious disease. Urine culture positive for Enterococcus faecalis. 2. Acute kidney injury secondary to hypovolemia and infection. Consult with nephrology appreciated. Patient is on D5W increased to 100 mL per hour due to hypoglycemia. 3. Hypernatremia due to poor oral water intake. Continue D5W. 4. DKA, diabetes mellitus type 2. patient now having episodes of hypoglycemia. Continue NovoLog scale only. 5. Metabolic acidosis secondary to acute kidney injury and DKA. 6. Anemia of chronic disease. continue Aranesp 40 g subcu every 7 days, ferrous sulfate 325 mg daily. 7. A. fib with RVR. Patient started on Lopressor 12.5 mg twice daily No plan to start on anticoagulation due to previous bleeding. 8. Chronic atrial fibrillation not on anticoagulation due to retroperitoneal hematoma. 9. Metabolic encephalopathy secondary to pneumonia, UTI and sepsis. Continue treatment as above. 10. COPD without exacerbation. 11. Chronic hypoxic respiratory failure recently weaned off oxygen. 12. Diabetes mellitus type 2. NovoLog scale. 13. Benign prostatic hypertrophy with urinary retention and chronic Rmairez catheter. 14. Chronic kidney disease stage III with history of left-sided nephrectomy. Avoid nephrotoxic agents. 15. History of large retroperitoneal hematoma with acute blood loss, stable, 04/2021. 16. Chronic gout. Continue allopurinol 100 mg daily. 17. Recurrent depression. Hold Zoloft 50 mg at bedtime. 18. Generalized anxiety disorder. 19. Pressure ulcer coccyx and pressure ulcer penis, present on admission. Continue local wound care and offloading. 20. Failed swallow evaluation and severe protein calorie malnutrition. Family wished to pursue PEG tube feeding however platelet count is too low. Consult with GI. Patient is not taking oral medications. 21. GI prophylaxis. Protonix 40 mg IV push daily. 22. DVT prophylaxis. SCDs and JARRET hose. 23. Thrombocytopenia CODE STATUS: Full code. Very poor prognosis Impression and plan of care have been directed as dictated by the signing physician. Cindy Tobias nurse practitioner acting as scribe for signing physician. Objective - Vital Signs Vital signs: Vital Signs Temp 98.0 F 03/11/22 07:20 Pulse 66 03/11/22 07:20 Resp 20 03/11/22 07:20 BP 116/75 03/11/22 07:20 Pulse Ox 99 03/11/22 07:20 FiO2 Intake & Output 03/10/22 03/11/22 03/11/22 18:59 06:59 18:59 Intake Total 0 Output Total 1900 1200 Balance -1900 -1200 Weight 87.5 kg Intake: Oral 0 Output: Urine 1900 1200 Other: Voiding Method Indwelling Catheter Indwelling Catheter - Labs CBC & Chem 7: 03/11/22 05:48 03/11/22 05:48 Labs: Abnormal Lab Results - Last 24 Hours (Table) 03/10/22 03/11/22 03/11/22 Range/Units 11:44 05:48 05:48 RBC 2.57 L (4.40-5.60) X 10*6/uL Hgb 7.4 L (13.0-17.0) g/dL Hct 25.3 L (39.6-50.0) % MCV 98.4 H (80.0-97.0) fL MCHC 29.2 L (32.0-37.0) g/dL RDW 14.7 H (11.5-14.5) % Plt Count 42 L (140-440) X 10*3/uL Plt Count Comment A Immature Gran # 0.06 H (0.00-0.04) X 10*3/uL Lymphocytes # 0.73 L (0.90-5.00) X 10*3/uL Immature Plt Fraction 15.6 H (1.1-6.1) % Sodium 151 H (135-145) mmol/L Chloride 112 H (96-109) mmol/L BUN 35.9 H (9.0-27.0) mg/dL Creatinine 2.0 H (0.6-1.5) mg/dL Est GFR (CKD-EPI)AfAm 33.8 L (60.0-200.0) Est GFR (CKD-EPI)NonAf 29.1 L (60.0-200.0) Glucose 116 H (70-110) mg/dL POC Glucose (mg/dL) 121 H (70-110) mg/dL Calcium 7.8 L (8.7-10.3) mg/dL Total Protein 5.0 L (6.2-8.2) g/dL Albumin 2.3 L (3.8-4.9) g/dL Albumin/Globulin Ratio 0.85 L (1.60-3.17) g/dL
[2022-03-11 18:00] LABS: Glucose,Whole Blood 157 mg/dL (70-110)
[2022-03-11] MEDS: SERTRALINE 50 MG TAB PO SCH (22:17)
[2022-03-11 23:52] LABS: Glucose,Whole Blood 153 mg/dL (70-110)
[2022-03-12] MEDS: DEXTROSE 5% IN WATER 1,000 ML IV SCH ×2 (00:22→13:39)
[2022-03-12] MEDS: INSULIN ASPART (NovoLOG) 100 UNIT/ML VIAL SQ SCH ×4 (00:33→17:27)
[2022-03-12 06:13] LABS: Glucose,Whole Blood 157 mg/dL (70-110)
--- NOTE | 2022-03-12 08:33 | P.PN ---
Subjective Progress Note Date: 03/11/22 Principal diagnosis: Sepsis UTI/aspiration pneumonia Patient is an 87 year old male with multiple comorbidities who was sent to the ER from half-way for a blood pressure and the patient was noticed to be lethargic and was concern for possible right lower lobe aspiration pneumonia as well as a UTI. On today's evaluation of 03/11/2022, The patient remains to be afebrile, the patient is breathing comfortably on nasal cannula oxygen, patient denies any chest pain , patient denies any worsening cough or sputum production no abdominal pain no diarrhea Objective - Vital Signs Vital signs: Vital Signs Temp 98.0 F 03/11/22 07:20 Pulse 66 03/11/22 07:20 Resp 20 03/11/22 07:20 BP 116/75 03/11/22 07:20 Pulse Ox 99 03/11/22 07:20 FiO2 Intake & Output 03/10/22 03/11/22 03/11/22 18:59 06:59 18:59 Intake Total 0 Output Total 1900 1200 Balance -1900 -1200 Weight 87.5 kg Intake: Oral 0 Output: Urine 1900 1200 Other: Voiding Method Indwelling Catheter Indwelling Catheter - Exam GENERAL DESCRIPTION: An elderly male lying in bed in no distress RESPIRATORY SYSTEM: Unlabored breathing , decreased breath sounds at bases HEART: S1 S2 regular rate and rhythm , ABDOMEN: Soft , no tenderness EXTREMITIES: No edema feet - Labs CBC & Chem 7: 03/11/22 05:48 03/11/22 18:44 Labs: Abnormal Lab Results - Last 24 Hours (Table) 03/11/22 03/11/22 Range/Units 05:48 05:48 RBC 2.57 L (4.40-5.60) X 10*6/uL Hgb 7.4 L (13.0-17.0) g/dL Hct 25.3 L (39.6-50.0) % MCV 98.4 H (80.0-97.0) fL MCHC 29.2 L (32.0-37.0) g/dL RDW 14.7 H (11.5-14.5) % Plt Count 42 L (140-440) X 10*3/uL Plt Count Comment A Immature Gran # 0.06 H (0.00-0.04) X 10*3/uL Lymphocytes # 0.73 L (0.90-5.00) X 10*3/uL Immature Plt Fraction 15.6 H (1.1-6.1) % Sodium 151 H (135-145) mmol/L Chloride 112 H (96-109) mmol/L BUN 35.9 H (9.0-27.0) mg/dL Creatinine 2.0 H (0.6-1.5) mg/dL Est GFR (CKD-EPI)AfAm 33.8 L (60.0-200.0) Est GFR (CKD-EPI)NonAf 29.1 L (60.0-200.0) Glucose 116 H (70-110) mg/dL Calcium 7.8 L (8.7-10.3) mg/dL Total Protein 5.0 L (6.2-8.2) g/dL Albumin 2.3 L (3.8-4.9) g/dL Albumin/Globulin Ratio 0.85 L (1.60-3.17) g/dL Assessment and Plan (1) Pneumonia Current Visit: Yes Status: Acute Code(s): J18.9 - PNEUMONIA, UNSPECIFIED ORGANISM SNOMED Code(s): 474414515 (2) UTI (urinary tract infection) Current Visit: Yes Status: Acute Code(s): N39.0 - URINARY TRACT INFECTION, SITE NOT SPECIFIED SNOMED Code(s): 96596693 Plan: 1patient presented to hospital with weakness lethargy head this patient did have evidence of UTI and possible right-sided pneumonia in this patient being a [facility]-way resident will need to cover for resistant gram-negative with a likely pathogen. The patient urine however is currently showing enterococcus blood cultures have been negative so far sputum hasn't been collected 2 Patient clinical condition remains to be stable, patient to continue with the Unasyn which will be continued while inpatient and plan to finish therapy with oral Augmentin Time with Patient: Less than 30
[2022-03-12] MEDS: METOPROLOL TARTRATE 12.5 MG TAB PO SCH ×2 (09:05→20:02)
[2022-03-12] MEDS: allopurinoL 100 MG TAB PO SCH (09:06)
[2022-03-12] MEDS: FERROUS SULFATE 325 MG TAB PO SCH (09:08)
[2022-03-12] MEDS: AMPICILLIN-SULBACTAM 3 GM in SODIUM CHLORIDE 0.9% 100 ML IVPB SCH ×2 (10:42→20:02)
[2022-03-12] MEDS: PANTOPRAZOLE 40 MG/10 ML VIAL IVP SCH (10:43)
[2022-03-12 10:52] LABS: African American GFR (CKD) 35.9 (60.0-200.0); Albumin 2.2 g/dL (3.8-4.9); Albumin/Globulin Ratio 0.85 (1.60-3.17); Anion Gap 9.7 mmol/L (10.00-18.00); BUN/Creat Ratio 15.37 Ratio (12.00-20.00); Blood Urea Nitrogen 29.2 mg/dL (9.0-27.0); Calcium 7.5 mg/dL (8.7-10.3); Carbon Dioxide 27.3 mmol/L (20.0-27.5); Globulin 2.6 g/dL (1.6-3.3); Magnesium 1.8 mg/dL (1.5-2.4); Potassium 4.1 mmol/L (3.5-5.5); Total Bilirubin 0.3 mg/dL (0.30-1.20); Total Protein 4.8 g/dL (6.2-8.2)
[2022-03-12 11:52] LABS: Basophils # (A) 0.02 X 10*3/uL (0.00-0.10); Basophils % (A) 0.4 %; Eosinophils % (A) 1.9 %; HCT 24.4 % (39.6-50.0); Immature Grans, Automated 0.8 %; Immature Platelet Fraction 17.3 % (1.1-6.1); Lymphocytes # (A) 0.86 X 10*3/uL (0.90-5.00); Lymphocytes % (A) 16.3 %; MCH 28.3 pg (27.0-32.0); MCHC 28.7 g/dL (32.0-37.0); MCV 98.8 fL (80.0-97.0); Monocytes # (A) 0.33 X 10*3/uL (0.20-1.00); Monocytes % (A) 6.3 %; NRBC Per 100 WBC 0 /100 WBCS (0.0-0.0); Neutrophils # (A) 3.93 X 10*3/uL (1.80-7.70); Neutrophils % (A) 74.3 %; Platelet Count 40 X 10*3/uL (140-440); RBC 2.47 X 10*6/uL (4.40-5.60); RDW 14.7 % (11.5-14.5); WBC 5.28 X 10*3/uL (4.50-10.00)
[2022-03-12 12:00] LABS: Glucose,Whole Blood 121 mg/dL (70-110)
--- NOTE | 2022-03-12 12:40 | P.PN ---
Subjective Progress Note Date: 03/12/22 Principal diagnosis: Weakness, hypernatremia, altered mental status, diabetic ketoacidosis, suspected aspiration pneumonia, acute UTI This is an 87-year-old white male with history of multiple comorbidities, patient was brought yesterday by EMS from the nursing facility with mostly complaints of low blood pressure and the patient has been noted to be lethargic. Patient had previous history of documented coronary artery disease, history of intracranial hemorrhage/subdural hematoma, chronic atrial fibrillation, hypertension, diabetes. Patient is not a great historian, apparently when he arrived to the ER, patient was found to have multiple abnormal labs including blood sugar over 500 anion gap metabolic acidosis hypernatremia with sodium of 160 acute kidney injury with BUN of 169 and creatinine 4.75, abnormal urinalysis, and abnormal chest x-ray suggestive of right lower lobe pneumonia questionable aspiration pneumonia considering the patient's overall mental statu s patient was obviously septic, and dehydrated upon his initial presentation. He received fluid boluses, blood pressure responded to fluid boluses but the patient did not require to be placed on pressors. Patient was placed empirically on antibiotics for presumptive pneumonia and possible urinary tract infection he was placed on the DKA protocol, and when the ER physician discussed the case with me I recommended definite admission to the ICU. Saw the patient this morning, remains on insulin drip at 1 unit per hour. His IV fluid was transitioned from 0.9 normal saline to D5W at 200 mL per hour. Patient is making urine around 50 mL per hour. More fluid boluses were given this morning. And we are closely monitoring his electrolytes and renal profile sodium remains relatively elevated at 160. However his anion gap corrected nicely and his anion gap this morning is 10. Bicarb is 18. Renal profile showed slight improvement since yesterday on admission ABG on admission showed a pO2 of 88 pCO2 31 pH of 7.37 and this was on the percent FiO2 in the ER. Presently the patient is on nasal cannula at 4 L/m and O2 saturations 93% cultures are pending patient remains on Zosyn and I discontinued his cefepime and vancomycin. Reevaluated today on 03/02/2022, patient remains in the ICU, she is on 2 L nasal cannula, O2 sats is 96%. Patient continues to be relatively lethargic, continues to have significant non-anion gap metabolic acidosis, placed on bicarb drip at 150 mL per hour. Continues to have hypernatremia however the sodium is improving and today I recommended free water flushes through a nasogastric tube to be placed mode every 4 nutritional support and also for free water flushes. Patient remains to have significant free water deficit with relatively high sodium. Mentation remains poor, patient is lethargic, arousable, unable to swallow on his own. Hence I feel it would be best to start enteral feeding via nasogastric tube today. He has a very poor appetite, and does not seem to swallow well. Remains in atrial fibrillation with controlled rate. Denies any shortness of breath cough wheezing denies any nausea vomiting or abdominal pain. Sodium today is 153 bicarb is 16 anion gap is 10 and BUN is 149 and creatinine 3.72. Reevaluated today on 03/03/2022, patient remains in the ICU, he is doing much better today compared to the last couple of days. His sodium has corrected nicely is down to 147 today. His bicarb also corrected nicely and he is off bicarb drip. Patient is on 4 L nasal cannula with O2 sats of 93%. His IV fluid is D5 4 5 at 75 mL/h and I have cut down his free water flushes to 200 mL every 6 hours via nasogastric tube. Patient is also receiving enteral feeding. Patient is awake but remains confused. Today I plan to transfer the patient out of the ICU, he can go to a regular medical floor, he will need to have swallow evaluation and may even have to consider a PEG tube placement if he failed the swallow evaluation. In the meantime we are continuing his antibiotics for presumptive sepsis and aspiration pneumonia. CBC today is relatively unremarkable. His BUN is down to 125 creatinine is down to 3.27. And sodium is 147 bicarb is 23. On 03/04/2022 patient seen in follow-up on medical surgical floor, he was transferred out of intensive care unit yesterday, he is much more awake and responsive on today's exam, he still confused, but appears to be in no distress, breathing comfortably, FiO2 is 4 L pulse ox is 96%, afebrile, blood pressures stable. NG tube remains in place the patient has Jevity infusing at a rate of 40 ML per hour, with 300 mL free water flushes every 6 hours. In addition patient remains on D5W at a rate of 75 ML per hour, he is on Unasyn for urine checked infection related to enterococcus faecalis. No nausea or vomiting, no diarrhea, abdomen is soft. Follow-up chest x-ray today shows chronic changes, with bibasilar opacities with slight worsening at the left lung base. Clinically patient denies any worsening dyspnea no cough, no chest congestion or chest pain. Today's labs have been reviewed, white blood cell count of 6.3, hemoglobin is 8.1, sodium today is 149, potassium is 4.1, BUN is 103, creatinine 3.2 renal profile is improving On 03/05/2022 patient seen in follow-up on medical surgical floor. He is awake and alert, he is oriented to person only, disoriented to place and time. Denies any acute distress, no complaints of shortness of breath or cough, no chest discomfort, he remains on D5W at 75 ML per hour, NG tube remains in place with Jevity infusing at 67 ML per hour and free water flushes. His been afebrile. He remains on Unasyn for enterococcus faecalis urinary tract infection. No fever or chills. He was seen by speech therapy and evaluation, and the recommendation has been made to continue with tube feedings for now as the patient's been noted to have increased congestion, and wet voice during the speech evaluation. However his level of consciousness significantly improved since admission. On 03/06/2020 patient seen in follow-up on an apical surgical floor. He is lethargic on today's exam, but does wake up to verbal stimulation, seems comf ortable, no evidence of any respiratory difficulty, he remains on 4 L of oxygen pulse ox is 95-90%, vital signs have been stable, no fever or chills, he remains on Unasyn for Enterococcus faecalis urinary tract infection. NG tube remains in place and tube feedings in the form of Jevity solution is infusing at a rate of 67 ML per hour, and patient remains on 300 mL free water flushes every 6 hours. In addition patient remains on D5W at a rate of 75 ML per hour, nephrology is following, today's labs are still pending for today, but yesterday's labs showed improving serum sodium which is down to 145, potassium is 4.6, renal profile was noted to be improving, BUN was down to 98, creatinine was 2.47. On 03/11/2022 patient seen in follow-up on medical surgical floor. Patient is lethargic, but arousable to voice, does not appear to be in any acute distress. On 4 L of oxygen his pulse ox is 93%, his been afebrile overnight. Patient has remained nothing by mouth, currently remains on Lactated Ringer's at 75 ML per hour, patient's sodium is on the rise and is up to 151 on today's labs., patient had pulled out his NG tube 2 in the last several days. Patient had a modified barium swallow and there was moderate silent aspiration of thin liquids and nectar thick barium. Patient also remains on IV antibiotics with Unasyn for evidence of Enterococcus faecalis urinary tract infection. Last chest x-ray from 03/07/2022 showed interstitial interstitial and airspace edema. Patient does not appear to be in any respiratory distress. The recommendation was for consideration of alternative method of feeding possibly PEG tube placement. On 03/12/2022 patient seen in follow-up on medical surgical floor. He is more arousable today, he opens eyes to voice easily, gives simple verbal responses. He is confused, not agitated, does not appear to be in any distress, breathing currently, 4 L of oxygen his pulse ox is 93-98%, monocytes a stable overnight. No fever or chills, blood pressure stable. He remains nothing by mouth and patient had previously failed modified barium swallow and was noted to be silently aspirating on nectar thick and thin liquids. Currently the patient rem ains a full code, the family opted to go with the PEG tube placement however patient slightly count was noted to be low at 42,000 and the procedure has been put on hold. Repeat modified barium swallow isscheduled for today. Maintained patient remains on D5W at a rate of 100 ML per hour, and today's sodium is improving and is at 147, potassium is 4.1, chloride is 110, BUN is 29, creatinine is 1.9. Ramirez catheter is in place for your monitoring, and patient has been nonoliguric, and has produced 1.125 ML of urine output in last 24 hours. White count is normal at 5.28, hemoglobin is 7.0. Patient remains on Unasyn for urinary tract infection related to enterococcus faecalis Objective - Vital Signs Vital signs: Vital Signs Temp 98.6 F 03/12/22 07:38 Pulse 67 03/12/22 07:38 Resp 18 03/12/22 07:38 BP 111/56 03/12/22 07:38 Pulse Ox 93 L 03/12/22 07:38 FiO2 Intake & Output 03/11/22 03/12/22 03/12/22 18:59 06:59 18:59 Intake Total 0 Output Total 800 325 600 Balance -800 -325 -600 Weight 87.5 kg 85.5 kg Intake: Oral 0 Output: Urine 800 325 600 Other: Voiding Method Indwelling Catheter Indwelling Catheter Indwelling Catheter - Exam GENERAL EXAM: Sleepy but does wake up to voice very pleasant, 87-year-old white male, pleasantly confused, oriented to self, on 4 L of oxygen pulse ox is 96% comfortable in no apparent distress. HEAD: Normocephalic/atraumatic. EYES: Normal reaction of pupils, equal size. Conjunctiva pink, sclera white. NOSE: Clear with pink turbinates. THROAT: No erythema or exudates. NECK: No masses, no JVD, no thyroid enlargement, no adenopathy. CHEST: No chest wall deformity. Symmetrical expansion. LUNGS: Equal air entry with no crackles, wheeze, rhonchi or dullness. CVS: Regular rate and rhythm, normal S1 and S2, no gallops, no murmurs, no rubs ABDOMEN: Soft, nontender. No hepatosplenomegaly, normal bowel sounds, no guarding or rigidity. EXTREMITIES: No clubbing, no edema, no cyanosis, 2+ pulses and upper and lower extremities. MUSCULOSKELETAL: Muscle strength and tone normal. SPINE: No scoliosis or deformity SKIN: No rashes CENTRAL NERVOUS SYSTEM: Alert and oriented -1. No focal deficits, tone is normal in all 4 extremities. PSYCHIATRIC: Alert and oriented -1. Appropriate affect. Intact judgment and insight. - Labs CBC & Chem 7: 03/12/22 06:32 03/12/22 06:32 Labs: Abnormal Lab Results - Last 24 Hours (Table) 03/11/22 03/11/22 03/12/22 Range/Units 17:57 23:49 06:08 RBC (4.40-5.60) X 10*6/uL Hgb (13.0-17.0) g/dL Hct (39.6-50.0) % MCV (80.0-97.0) fL MCHC (32.0-37.0) g/dL RDW (11.5-14.5) % Plt Count (140-440) X 10*3/uL Plt Count Comment Lymphocytes # (0.90-5.00) X 10*3/uL Immature Plt Fraction (1.1-6.1) % Sodium (135-145) mmol/L Chloride (96-109) mmol/L Anion Gap (10.00-18.00) mmol/L BUN (9.0-27.0) mg/dL Creatinine (0.6-1.5) mg/dL Est GFR (CKD-EPI)AfAm (60.0-200.0) Est GFR (CKD-EPI)NonAf (60.0-200.0) Glucose (70-110) mg/dL POC Glucose (mg/dL) 157 H 153 H 157 H (70-110) mg/dL Calcium (8.7-10.3) mg/dL Total Protein (6.2-8.2) g/dL Albumin (3.8-4.9) g/dL Albumin/Globulin Ratio (1.60-3.17) g/dL 03/12/22 03/12/22 03/12/22 Range/Units 06:32 06:32 11:56 RBC 2.47 L (4.40-5.60) X 10*6/uL Hgb 7.0 L (13.0-17.0) g/dL Hct 24.4 L (39.6-50.0) % MCV 98.8 H (80.0-97.0) fL MCHC 28.7 L (32.0-37.0) g/dL RDW 14.7 H (11.5-14.5) % Plt Count 40 L (140-440) X 10*3/uL Plt Count Comment A Lymphocytes # 0.86 L (0.90-5.00) X 10*3/uL Immature Plt Fraction 17.3 H (1.1-6.1) % Sodium 147 H (135-145) mmol/L Chloride 110 H (96-109) mmol/L Anion Gap 9.70 L (10.00-18.00) mmol/L BUN 29.2 H (9.0-27.0) mg/dL Creatinine 1.9 H (0.6-1.5) mg/dL Est GFR (CKD-EPI)AfAm 35.9 L (60.0-200.0) Est GFR (CKD-EPI)NonAf 31.0 L (60.0-200.0) Glucose 157 H (70-110) mg/dL POC Glucose (mg/dL) 121 H (70-110) mg/dL Calcium 7.5 L (8.7-10.3) mg/dL Total Protein 4.8 L (6.2-8.2) g/dL Albumin 2.2 L (3.8-4.9) g/dL Albumin/Globulin Ratio 0.85 L (1.60-3.17) g/dL Assessment and Plan Plan: Assessment: Acute sepsis related to possible aspiration pneumonia, and urinary tract infection with urine culture positive for enterococcus faecalis, currently on Unasyn Altered mental status related to the above Hypernatremia R/T poor oral intake, status nothing by mouth and evidence of silent aspiration on thin and nectar fluids Acute on chronic kidney disease, patient has a history of chronic disease stage IIIa and as solitary right kidney, renal function is improving Profound dehydration secondary to the above, improving History of Alzheimer's dementia Acute aspiration pneumonia Acute urinary tract infection group D enterococcus on Unasyn Plan: Continue D5W at a rate of 100 ML per hour No evidence of respiratory distress Maintain aspiration precautions Patient remains nothing by mouth for possible PEG tube placement per family wishes Repeat modified barium swallow is scheduled for today PEG tube placement is on hold related to low platelet count Vital signs are stable We'll continue to follow I have personally seen and examined the patient, performed the documentation and the assessment and plan as written. I have personally seen and examined the patient and reviewed the documentation. I performed a joint evaluation with the nurse practitioner in this evaluation was done more than 20 minutes. I fully agree with the documentation above and the plan of care. This is joint evaluations was not along with nurse practitioner. The patient continues to receive D5 water and the sodium level is improved compared to yesterday. Platelet counts are low. A repeat swallow evaluation will be done today. Major affective at a later stage. This was postponed as the patient was having issues with thrombocytopenia. Time with Patient: Less than 30
--- NOTE | 2022-03-12 13:02 | P.CONS ---
History of Present Illness - Reason for Consult Consult date: 03/12/22 PEG tube placement Requesting physician: Wilfred Cazares - Chief Complaint Altered mental status changes, sepsis - History of Present Illness This is a 87-year-old male with multiple comorbidities including Parkinson's disease, Alzheimer's dementia, diabetes mellitus type 2, chronic atrial fibrillation, retroperitoneal hematoma, history of pneumonia, BPH, chronic kidney disease with history of left-sided nephrectomy, history of subdural hematoma and aspiration pneumonia who presented to the emergency department on 02/28/2022 with altered mental status changes and lethargy. Patient was admitted with acute kidney injury, hyper natremia hypotension, acute diabetic ketoacidosis, sepsis likely secondary to aspiration pneumonia and dehydration. The patient initially had a evaluation by speech therapy with a modified barium swallow with evidence of silent aspiration. The patient was made nothing by mouth and NG tube was placed with tube feedings however the patient had pulled out the NG tube 2. Recommendation is for possible comfort and/or hospice care by primary care physician however family is requesting PEG tube placement. Patient did undergo a repeat swallow evaluation this morning and patient was more alert and they have recommended patient's diet to pured diet with honey thickened liquids and that patient demonstrated adequate oral and pharyngeal phases with no overt signs or symptoms of aspiration penetration or decline in respiratory status, however awaiting MBS. Patient is somewhat confused he was very lethargic however easily arousable to name. He states he is doing fine denies any abdominal pain, nausea or vomiting. Labs: WBC 5.28 hemoglobin 7.4 hematocrit 24 platelet count 42,000 sodium 147 potassium 4.1 the N 29.2 creatinine 1.9 glucose 157 total bilirubin 0.3 AST 17 ALT 19 alkaline phosphatase 52 Review of Systems ROS unobtainable: due to mental status Past Medical History Past Medical History: Atrial Fibrillation, Cancer, COPD, Diabetes Mellitus, Eye Disorder, Hearing Disorder / Deafness, Hypertension, Pneumonia, Prostate Disorder, Renal Disease Additional Past Medical History / Comment(s): Pt recently admitted to [facility] on 01/25/20 with a mechanical fall/hematoma R buttock and acute blood loss anemia. Other hx: 2009 Brain cancer with surgery and radiation, L nephrectomy d/t deteriorating kidney, CKD stage III, BPH, chronic thrombocytopenia, chronic anemia, diet controlled diabetes, generalized arthritis, L2 compression fracture, blind R eye, SOLOMON blaterally, seasonal allergies. 05/14/21 admitted with abdominal hematoma History of Any Multi-Drug Resistant Organisms: None Reported Additional Past Surgical History / Comment(s): L nephrectomy, brain tumor removal, bilateral cataract removals, colonoscopy. Past Anesthesia/Blood Transfusion Reactions: No Reported Reaction Additional Past Anesthesia/Blood Transfusion Reaction / Comm: Pt has received blood in past without reaction. Past Psychological History: Depression Additional Psychological History / Comment(s): resides [facility] He used to use a walker to ambulate. per er report patient has been weak and non ambulatory recently Smoking Status: Former smoker Past Alcohol Use History: None Reported Additional Past Alcohol Use History / Comment(s): Unknown when pt started smoking pipe but quit in 1977. Past Drug Use History: None Reported - Past Family History Father Family Medical History: No Reported History Additional Family Medical History / Comment(s): Father was healthy. He at the age of 62yrs in a MVA. Mother Additional Family Medical History / Comment(s): Mother at the age of 86yrs of "heart problems." Brother(s) Additional Family Medical History / Comment(s): Patient has 3 brothers and one is passed from old age. Patient has 4 sisters with no major medical problems. Patient had 2 children one from muscular dystrophy and one is alive with no major medical problems. Medications and Allergies Home Medications Medication Instructions Recorded Confirmed Type Sertraline [Zoloft] 50 mg PO HS@2100 01/25/20 02/28/22 History allopurinoL [Zyloprim] 100 mg PO DAILY@0900 01/25/20 02/28/22 History Pioglitazone [Actos] 15 mg PO DAILY@0605/13/21 02/28/22 History Tolterodine Tartrate [Detrol LA] 4 mg PO HS@2100 11/12/21 02/28/22 History Acetaminophen [Tylenol] 650 mg PO Q4H PRN 12/11/21 02/28/22 History Ferrous Sulfate 330 mg PO DAILY@0900 02/28/22 02/28/22 History Levofloxacin [Levaquin] 250 mg PO HS@2100 02/28/22 02/28/22 History Magnesium Hydroxide [Milk of 2,400 mg PO ONCE PRN 02/28/22 02/28/22 History Magnesia] Metoprolol Succinate (ER) [Toprol 25 mg PO HS@2100 02/28/22 02/28/22 History Xl] Multivitamins, Thera Liquid 5 ml PO DAILY@0900 02/28/22 02/28/22 History [Theragran Liquid (formulary)] Na Phos,M-B/Na Phos,Di-Ba [Fleet 118 ml RECTAL DAILY PRN 02/28/22 02/28/22 History Adult] Nitroglycerin Sl Tabs [Nitrostat] 0.4 mg SUBLINGUAL Q5M PRN 02/28/22 02/28/22 History Omeprazole 20 mg PO DAILY@0600 02/28/22 02/28/22 History bisacodyL [Dulcolax] 10 mg RECTAL DAILY PRN 02/28/22 02/28/22 History guaiFENesin [guaiFENesin Oral 100 mg PO Q6H PRN 02/28/22 02/28/22 History Solution] methylPREDNISolone Dose Pack See Taper PO DAILY 02/28/22 02/28/22 History [Medrol Dose Pack] Allergies Allergy/AdvReac Type Severity Reaction Status Date / Time No Known Allergies Allergy Verified 02/28/22 17:46 Physical Exam Vitals: Vital Signs Temp Pulse Resp BP BP BP Pulse Ox 03/12/22 07:38 98.6 F 67 18 111/56 93 L 03/12/22 01:43 98.2 F 87 14 112/61 98 03/11/22 19:36 98.4 F 75 14 135/69 100 03/11/22 14:00 97.3 F L 65 20 154/76 94 L Intake and Output 03/11/22 03/12/22 03/12/22 22:59 06:59 14:59 Intake Total 0 Output Total 800 325 600 Balance -800 -325 -600 Intake: Oral 0 Output: Urine 800 325 600 Other: Voiding Method Indwelling Catheter Indwelling Catheter Weight 87.5 kg 85.5 kg General appearance: The patient is alert, somewhat obtunded but easily arousable, appears in no acute distress. HET: Head is normocephalic and atraumatic. Conjunctiva pink. Sclera anicteric. Neck: Supple without lymphadenopathy. Trachea midline. Heart: S1 S2. Regular rate and rhythm. Lungs: Clear to auscultation. Abdomen: Soft, nontender, nondistended with bowel sounds. No guarding or rigidity. Skin: No rashes. No jaundice. Extremities: Normal skin color and turgor. Neurological: Alert, non-orientated. Results CBC & Chem 7: 03/12/22 06:32 03/12/22 06:32 Labs: Abnormal Lab Results - Last 24 Hours (Table) 03/11/22 03/11/22 03/12/22 Range/Units 17:57 23:49 06:08 Sodium (135-145) mmol/L Chloride (96-109) mmol/L Anion Gap (10.00-18.00) mmol/L BUN (9.0-27.0) mg/dL Creatinine (0.6-1.5) mg/dL Est GFR (CKD-EPI)AfAm (60.0-200.0) Est GFR (CKD-EPI)NonAf (60.0-200.0) Glucose (70-110) mg/dL POC Glucose (mg/dL) 157 H 153 H 157 H (70-110) mg/dL Calcium (8.7-10.3) mg/dL Total Protein (6.2-8.2) g/dL Albumin (3.8-4.9) g/dL Albumin/Globulin Ratio (1.60-3.17) g/dL 03/12/22 Range/Units 06:32 Sodium 147 H (135-145) mmol/L Chloride 110 H (96-109) mmol/L Anion Gap 9.70 L (10.00-18.00) mmol/L BUN 29.2 H (9.0-27.0) mg/dL Creatinine 1.9 H (0.6-1.5) mg/dL Est GFR (CKD-EPI)AfAm 35.9 L (60.0-200.0) Est GFR (CKD-EPI)NonAf 31.0 L (60.0-200.0) Glucose 157 H (70-110) mg/dL POC Glucose (mg/dL) (70-110) mg/dL Calcium 7.5 L (8.7-10.3) mg/dL Total Protein 4.8 L (6.2-8.2) g/dL Albumin 2.2 L (3.8-4.9) g/dL Albumin/Globulin Ratio 0.85 L (1.60-3.17) g/dL Assessment and Plan (1) Pneumonia Narrative/Plan: 87-year-old male with multiple comorbidities with declining health who presented to the emergency department from assisted living with complaints of lethargy and mental status changes. Is noted to have aspiration pneumonia, hypotension, diabetic ketoacidosis urinary tract infection amongst others. During the admission he underwent a modified barium swallow study with speech therapy which at that time showed silent aspiration. He was eventually started on tube feedings through a NG tube however pulses O 2. He is more alert apparently over the last day and underwent a repeat swallow evaluation this morning with speech therapy that showed no signs or symptoms of aspiration and recommended a pured diet with honey thickened liquids. Apparently prior to this the family had been requesting PEG tube for nutrition. However at this time patient does have thrombocytopenia with platelets at 42,000 and is not a good surgical candidate. As well as would need clearance from cardiology as well as pulmonology if we were to proceed with PEG tube placement Current Visit: Yes Status: Acute Code(s): J18.9 - PNEUMONIA, UNSPECIFIED ORGANISM SNOMED Code(s): 703184887 (2) Thrombocytopenia Current Visit: Yes Status: Acute Code(s): D69.6 - THROMBOCYTOPENIA, UNSPECIFIED SNOMED Code(s): 117377032 (3) Atrial fibrillation Current Visit: Yes Status: Acute Code(s): I48.91 - UNSPECIFIED ATRIAL FIBRILLATION SNOMED Code(s): 04247351 (4) Sepsis Current Visit: Yes Status: Acute Code(s): A41.9 - SEPSIS, UNSPECIFIED ORGANISM SNOMED Code(s): 39133811 (5) UTI (urinary tract infection) Current Visit: Yes Status: Acute Code(s): N39.0 - URINARY TRACT INFECTION, SITE NOT SPECIFIED SNOMED Code(s): 27327048 Plan: 1. Continue symptomatic and supportive care 2. Awaiting completion of the swallow evaluation and MBS 3. Daily CBC 4. Nothing by mouth until further recommendations from speech therapy 5. Patient is not a good surgical candidate at this time due to multiple lola rbidities as well as thrombocytopenia Thank you for this consultation, we will continue to follow. Dr. Johan Talbert I agree with the dictator's note, documented as a scribe by Kristal Cramer.
--- NOTE | 2022-03-12 14:14 | P.PN ---
Subjective Patient is seen in follow-up for acute kidney injury and electrolyte imbalance. Renal function improving. Sodium 147 today. Receiving D5W. Barium swallow pending. Has a Ramirez catheter. Nonoliguric. Vital signs are stable. General: Awake. No acute distress. HEENT: Head exam is unremarkable. LUNGS: Breath sounds decreased. HEART: Rate and Rhythm are regular. ABDOMEN: Soft, no distention. EXTREMITITES: No edema. Objective - Vital Signs Vital signs: Vital Signs Temp 98.6 F 03/12/22 07:38 Pulse 63 03/12/22 13:49 Resp 20 03/12/22 13:49 BP 129/72 03/12/22 13:49 Pulse Ox 98 03/12/22 13:49 FiO2 Intake & Output 03/11/22 03/12/22 03/12/22 18:59 06:59 18:59 Intake Total 0 Output Total 800 325 600 Balance -800 -325 -600 Weight 87.5 kg 85.5 kg Intake: Oral 0 Output: Urine 800 325 600 Other: Voiding Method Indwelling Catheter Indwelling Catheter Indwelling Catheter - Labs CBC & Chem 7: 03/12/22 06:32 03/12/22 06:32 Labs: Abnormal Lab Results - Last 24 Hours (Table) 03/11/22 03/11/22 03/12/22 Range/Units 17:57 23:49 06:08 RBC (4.40-5.60) X 10*6/uL Hgb (13.0-17.0) g/dL Hct (39.6-50.0) % MCV (80.0-97.0) fL MCHC (32.0-37.0) g/dL RDW (11.5-14.5) % Plt Count (140-440) X 10*3/uL Plt Count Comment Lymphocytes # (0.90-5.00) X 10*3/uL Immature Plt Fraction (1.1-6.1) % Sodium (135-145) mmol/L Chloride (96-109) mmol/L Anion Gap (10.00-18.00) mmol/L BUN (9.0-27.0) mg/dL Creatinine (0.6-1.5) mg/dL Est GFR (CKD-EPI)AfAm (60.0-200.0) Est GFR (CKD-EPI)NonAf (60.0-200.0) Glucose (70-110) mg/dL POC Glucose (mg/dL) 157 H 153 H 157 H (70-110) mg/dL Calcium (8.7-10.3) mg/dL Total Protein (6.2-8.2) g/dL Albumin (3.8-4.9) g/dL Albumin/Globulin Ratio (1.60-3.17) g/dL 03/12/22 03/12/22 03/12/22 Range/Units 06:32 06:32 11:56 RBC 2.47 L (4.40-5.60) X 10*6/uL Hgb 7.0 L (13.0-17.0) g/dL Hct 24.4 L (39.6-50.0) % MCV 98.8 H (80.0-97.0) fL MCHC 28.7 L (32.0-37.0) g/dL RDW 14.7 H (11.5-14.5) % Plt Count 40 L (140-440) X 10*3/uL Plt Count Comment A Lymphocytes # 0.86 L (0.90-5.00) X 10*3/uL Immature Plt Fraction 17.3 H (1.1-6.1) % Sodium 147 H (135-145) mmol/L Chloride 110 H (96-109) mmol/L Anion Gap 9.70 L (10.00-18.00) mmol/L BUN 29.2 H (9.0-27.0) mg/dL Creatinine 1.9 H (0.6-1.5) mg/dL Est GFR (CKD-EPI)AfAm 35.9 L (60.0-200.0) Est GFR (CKD-EPI)NonAf 31.0 L (60.0-200.0) Glucose 157 H (70-110) mg/dL POC Glucose (mg/dL) 121 H (70-110) mg/dL Calcium 7.5 L (8.7-10.3) mg/dL Total Protein 4.8 L (6.2-8.2) g/dL Albumin 2.2 L (3.8-4.9) g/dL Albumin/Globulin Ratio 0.85 L (1.60-3.17) g/dL Assessment and Plan Plan: Assessment: 1. Acute kidney injury mostly prerenal secondary to hypovolemia and infection. Creatinine was 4.9 on admission and is 1.9 today. No hydronephrosis noted on CAT scan. 2. Chronic kidney disease stage IIIa secondary to solitary right kidney. 3. Status post left nephrectomy. 4. Hypernatremia from lack of oral water intake. Better. 5. DKA s/p insulin drip. 6. Metabolic acidosis secondary to acute kidney injury and DKA. Improved. 7. History of dementia. 8. Anemia of chronic kidney disease. Iron replete. On Aranesp. 9. UTI and possible pneumonia on antibiotics. Urine culture positive for group D enterococcus. Infectious disease following. Plan: Maintain D5W. Increase rate to 100 mL an hour. Recheck sodium level this evening. Continue to monitor renal function and urine output Repeat labs in the morning. PEG tube not placed due to low platelets. Barium swallow pending.
[2022-03-12 17:03] LABS: Glucose,Whole Blood 125 mg/dL (70-110)
[2022-03-12] MEDS: SERTRALINE 50 MG TAB PO SCH (20:02)
[2022-03-12 21:10] LABS: Glucose,Whole Blood 121 mg/dL (70-110)
[2022-03-13 00:36] LABS: Glucose,Whole Blood 110 mg/dL (70-110)
[2022-03-13] MEDS: INSULIN ASPART (NovoLOG) 100 UNIT/ML VIAL SQ SCH ×4 (00:38→17:41)
[2022-03-13 06:21] LABS: Glucose,Whole Blood 154 mg/dL (70-110)
[2022-03-13] MEDS: DEXTROSE 5% IN WATER 1,000 ML IV SCH (06:23)
[2022-03-13 06:34] LABS: Glucose,Whole Blood 149 mg/dL (70-110)
[2022-03-13 07:17] LABS: African American GFR (CKD) 39 (>60 ml/min/1.73 sqM); Anion Gap 2 mmol/L; Blood Urea Nitrogen 27 mg/dL (9-20); Carbon Dioxide 29 mmol/L (22-30); Chloride 109 mmol/L (98-107); Glucose 151 mg/dL (74-99); Magnesium 1.5 mg/dL (1.6-2.3); Non-African American GFR(CKD) 34 (>60 ml/min/1.73 sqM); Potassium 3.8 mmol/L (3.5-5.1); Sodium 140 mmol/L (137-145)
--- NOTE | 2022-03-13 07:28 | P.PN ---
Subjective Progress Note Date: 03/12/22 HISTORY OF PRESENT ILLNESS This is an 87-year-old male patient of Dr. Hurd with past medical history of Parkinsons disease, Alzheimers dementia, diabetes mellitus type 2, chronic atrial fibrillation not on anticoagulation due to retroperitoneal hematoma, history of pneumonia, benign prostatic hypertrophy, chronic kidney disease with history of left-sided nephrectomy, history of large retroperitoneal hematoma 04/2021, history of aspiration pneumonia. Patient was hospitalized at [facility] due to failure to thrive increasing weakness and difficulty ambulatingfor 2 weeks and progressively worsening. Patient was treated for UTI and streptococcal bacteremia seen by infectious disease thought this was a contamination. Echocardiogram did not show any abnormalities stafford spicious for endocarditis. ID recommended a short course of Ceftin and patient was discharged to [facility] for subacute rehab. Patient was subsequently admitted for A. fib RVR and aspiration pneumonia. He was stabilized and discharged back to [facility] for subacute rehab. Upon his return, patient has been more weak, less involved in his care then prior admissions yesterday, patient was transferred to [facility] emergency center due to altered mental status and hypotension. Patient was found to be afebrile, heart rate 122, respiratory rate 26, blood pressure 89/59, pulse ox 91% on nonrebreather. EKG was atrial fibrillation with RVR with a ventricular rate of 123. WBC 5.2, hemoglobin 10.5, platelet count 152. Sodium 160, potassium 5, chloride 125, CO2 18, anion gap 17, BUN 176, creatinine 4.9. Blood sugar 515. Lactic acid 3.2. Calcium 8.9. Magnesium 3.1. Total bilirubin 0.5, AST 13 ALT 15, alkaline phosphatase 79. Urinalysis cloudy, glucose 3+, blood small, leukoe sterase large, WBCs 103. Acetone positive Chest x-ray revealed infiltrate right lower lung CAT scan of the abdomen and pelvis without contrast revealed no evidence of retroperitoneal hematoma. Bibasilar pneumonia, correlate for aspiration. Correlate for hemorrhagic material within the urinary bladder. Urinary bladder wall thickening. CAT scan of the brain revealed age-related atrophy and chronic small vessel ischemic change without acute intracranial process. Stable chronic right sided subdural collection. No acute intracranial hemorrhage. Patient was admitted into intensive care unit, consult with nephrology and research project manager.. 03/04: Patient is seen on the [facility] floor. He had an NG tube placed over the weekend and receiving Jevity at 40 ML's poor hour +300 ML's of water every 6 ho urs. Patient is on Unasyn for aspiration pneumonia. Patient is followed by pulmonary medicine, infectious disease and nephrology. Blood work today reveals WBC 6.2, hemoglobin 8.1 and platelet count of 80. Sodium 149, potassium 4.1, chloride 117, CO2 22, BUN 103 and creatinine 3.2. Capillary blood glucose running between 214 and 284. Urine culture was finalized with Enterococcus faecalis. IV fluids have been switched to D5W. Patient will be started on Levemir 15 units at bedtime, scheduled NovoLog 5 units every 6 hours and continue NovoLog scale. 03/05: Patient is slightly more alert today. He has been afebrile, heart rate 109, blood pressure 118/79, pulse ox 97% on 4 L nasal cannula. Repeat blood work reveals BUN 98 and creatinine 2.47, chloride 117, potassium 4.6. Capillary blood glucose running between 155 and 172. Patient is followed by pulmonary medicine, nephrology. Patient is continued on NG tube feedings with Jevity and free water flushes. 03/06: Patient has been evaluated by speech therapy at the bedside and has failed, worse than last week. Patient scheduled for modified barium swallow for tomorrow but suspect he most likely will require PEG tube placement. Dr. Cazares is making another attempt to contact patient's son. Patient has been afebrile, heart rate 97, blood pressure 151/82, pulse ox 99% on 4 L nasal cannula. Capillary blood glucose running between 134 and 229. Repeat blood work ordered for tomorrow. The patient is currently on feeding tubes at goal along with free water flushes. Ramirez catheter remains in place. He does have chronic Ramirez. 03/07: patient remains lethargic. He underwent modified barium swallow today and failed. Family will need to determine if they wish to go with a PEG tube or make patient comfort care. patient has had 2 NG tube removed by patient. Patient received Lasix yesterday forfluid overload and has had good urine output. Less edema today. Repeat blood work reveals WBC 10.9, hemoglobin 7.6 and platelet count 71. BUN 72 creatinine 2.4. With blood glucose this morning was 60. AST 66, ALT 51, alkaline phosphatase 70. 7/15: Patient is seen and followed by pulmonary medicine. Patient has now removed NG tube twice. Attempts have been made to contact patient's son regarding decisions regarding a PEG tube placement, comfort care and CODE STATUS. Repeat nursing updated that if family comes in in the afternoons or evenings, please contact Dr. Cazares to speak with the family regarding these issues. Patient is currently only receiving IV and subcu medications. Repeat chest x-ray 03/07 reveals pulmonary edema consistent with heart failure which is increased compared to recent exam. scheduled NovoLog and Levemir discontinued. Patient continues to have occasional cough, generalized significant weakness and mental status changes. He has been afebrile, heart rate 82, blood pressure 114/69, pulse ox 92% on 2 L nasal cannula. 03/09: Dr. Cazares was in contact with patient's and his son regarding patient's condition and prognoses as well as plan of care, they will decide regarding PEG tube placement but at this time, family have not made a decision. Nephrology has recommended IV fluids LR at 75 mL an hour, avoid hypoglycemic episodes, continue Aranesp and monitor lab work. Patient continues to be nothing by mouth. 03/10: Patient is laying down in bed he appears to be about the same he is not improving at all at this point in time, I had a conversation with his as well as his son recommended hospice/palliative care, they have not made a final decision, and the family elected to go for a full code patient will need to have a PEG tube placement and after that he would be transferred back to [facility] on the [place]. Patient has been on IV lactated Ringer, his sodium and potassium is good his creatinine still above the baseline his baseline creatinine is 1.6 currently 2.3, patient did not have any episode of hypoglycemia last night, patient is not able to swallow anything at this time, he had failed modified barium swallow, patient will need PEG tube if family elected for full code. 03/11: The patient is seen today on the [facility] floor. Contacted patient's son Yamil and family want to proceed with PEG tube insertion and feedings. Consult placed with Dr. Talbert and will see the patient tomorrow. However due to low platelet count, doubt that PEG tube can be placed. Patient is continued on IV antibiotics with Unasyn for urinary tract infection. No respiratory distress noted. Patient is been afebrile, heart rate 65, blood pressure 154/76, pulse ox 94% on 4 L nasal cannula. Repeat blood work reveals WBC 5.2, hemoglobin 7.4 platelet count 42. Sodium 151, potassium 4.6, chloride 112, CO2 is 23, BUN 35, creatinine 2.0. Glucose 116. Capillary blood glucose running between 98 and 110. Total bilirubin 0.3. Liver function tests are normal. 03/12: Patient we have agreed to move forward with PEG tube placement however due to thrombocytopenia, patient is not a surgical candidate. However, patient did well with a bedside evaluation with speech today and will undergo modified barium swallow and hopefully be able to start some oral feedings. Patient has been hemodynamically stable. Blood sugars are stable. Repeat BUN 29 creatinine 1.9. Patient is continued on Unasyn per Dr. Velazquez and he is also on D5W at 75 mL per hour. REVIEW OF SYSTEMS Constitutional: No fever, no chills, no night sweats. No weight change. Noted weakness, noted fatigue no lethargy. Noted daytime sleepiness. EENT: No headache. No blurred vision or double vision, no loss of vision. No loss of Hearing, no ringingin the ears, no dizziness. No nasal drainage or conge stion. No epistaxis. No sore throat. Lungs: No complaints of shortness of breath, + cough-appears improved, no sputum production. No wheezing. Cardiovascular: No chest pain, no lower extremity edema. No palpitations. No paroxysmal nocturnal dyspnea. No orthopnea. No lightheadedness or dizziness. No syncopal episodes. Abdominal: No abdominal pain. No nausea, vomiting. No diarrhea. No constipatio n. No bloody or tarry stools. No loss of appetite. Genitourinary: No dysuria, increased frequency, urgency. No urinary retention. Musculoskeletal: No myalgias. No muscle weakness, reported gait dysfunction, no frequent falls. No back pain. No neck pain. Integumentary: No wounds, no lesions. No rash or pruritus. No unusual bruising. No change in hair or nails. Neurologic: No aphasia. No facial droop. Noted change in mentation continues. No head injury. No headache. No paralysis. No paresthesia. Psychiatric: Presumed depression. No anxiety. No mood swings. Endocrine: No abnormal blood sugars. No weight change. No excessive sweating or thirst. PHYSICAL EXAMINATION Gen: This is an 87-year-old male. He is resting in bed and appears to be comfortable. No respiratory distress is noted. HEENT: Head is atraumatic, normocephalic. Pupils equal, round. Sclerae is anicteric. NECK: Supple. No JVD. No lymphadenopathy. No thyromegaly. LUNGS: Decreased breath sounds bilaterally with a few scattered rhonchi. No intercostal retractions. HEART: Irregular rate and rhythm. 2/6 systolic murmur. ABDOMEN: Soft. Bowel sounds are present. No masses. No tenderness. Ramirez draining vincenzo urine with seiment. EXTREMITIES: No pedal edema. No calf tenderness. NEUROLOGICAL: Patient is lethargic, generalized weakness. ASSESSMENT AND PLAN 1. Acute sepsis and septic shock secondary to aspiration pneumonia and Ramirez catheter associated urinary tract infection. Continue patient management on the [facility] unit, pulmonary consult appreciated, patient is on Unasyn per infectious disease. Urine culture positive for Enterococcus faecalis. 2. Acute kidney injury secondary to hypovolemia and infection. Consult with nephrology appreciated. Patient is on D5W increased to 100 mL per hour due to hypoglycemia. 3. Hypernatremia due to poor oral water intake. Continue D5W. 4. DKA, diabetes mellitus type 2. patient now having episodes of hypoglycemia. Continue NovoLog scale only. 5. Metabolic acidosis secondary to acute kidney injury and DKA. 6. Anemia of chronic disease. continue Aranesp 40 g subcu every 7 days, ferrous sulfate 325 mg daily. 7. A. fib with RVR. Patient started on Lopressor 12.5 mg twice daily No plan to start on anticoagulation due to previous bleeding. 8. Chronic atrial fibrillation not on anticoagulation due to retroperitoneal hematoma. 9. Metabolic encephalopathy secondary to pneumonia, UTI and sepsis. Continue treatment as above. 10. COPD without exacerbation. 11. Chronic hypoxic respiratory failure recently weaned off oxygen. 12. Diabetes mellitus type 2. NovoLog scale. 13. Benign prostatic hypertrophy with urinary retention and chronic Ramirez catheter. 14. Chronic kidney disease stage III with history of left-sided nephrectomy. Avoid nephrotoxic agents. 15. History of large retroperitoneal hematoma with acute blood loss, stable, 04/2021. 16. Chronic gout. Continue allopurinol 100 mg daily. 17. Recurrent depression. Hold Zoloft 50 mg at bedtime. 18. Generalized anxiety disorder. 19. Pressure ulcer coccyx and pressure ulcer penis, present on admission. Continue local wound care and offloading. 20. Failed swallow evaluation and severe protein calorie malnutrition. Family wished to pursue PEG tube feeding however platelet count is too low. Consult with GI. Patient is not taking oral medications. 21. GI prophylaxis. Protonix 40 mg IV push daily. 22. DVT prophylaxis. SCDs and JARRET hose. 23. Thrombocytopenia CODE STATUS: Full code. Very poor prognosis Objective - Vital Signs Vital signs: Vital Signs Temp 98.6 F 03/12/22 07:38 Pulse 67 03/12/22 07:38 Resp 18 03/12/22 07:38 BP 111/56 03/12/22 07:38 Pulse Ox 93 L 03/12/22 07:38 FiO2 Intake & Output 03/11/22 03/12/22 03/12/22 18:59 06:59 18:59 Intake Total 0 Output Total 800 325 600 Balance -800 -325 -600 Weight 87.5 kg 85.5 kg Intake: Oral 0 Output: Urine 800 325 600 Other: Voiding Method Indwelling Catheter Indwelling Catheter Indwelling Catheter - Labs CBC & Chem 7: 03/12/22 06:32 03/13/22 06:39 Labs: Abnormal Lab Results - Last 24 Hours (Table) 03/11/22 03/11/22 03/12/22 Range/Units 17:57 23:49 06:08 RBC (4.40-5.60) X 10*6/uL Hgb (13.0-17.0) g/dL Hct (39.6-50.0) % MCV (80.0-97.0) fL MCHC (32.0-37.0) g/dL RDW (11.5-14.5) % Plt Count (140-440) X 10*3/uL Plt Count Comment Lymphocytes # (0.90-5.00) X 10*3/uL Immature Plt Fraction (1.1-6.1) % Sodium (135-145) mmol/L Chloride (96-109) mmol/L Anion Gap (10.00-18.00) mmol/L BUN (9.0-27.0) mg/dL Creatinine (0.6-1.5) mg/dL Est GFR (CKD-EPI)AfAm (60.0-200.0) Est GFR (CKD-EPI)NonAf (60.0-200.0) Glucose (70-110) mg/dL POC Glucose (mg/dL) 157 H 153 H 157 H (70-110) mg/dL Calcium (8.7-10.3) mg/dL Total Protein (6.2-8.2) g/dL Albumin (3.8-4.9) g/dL Albumin/Globulin Ratio (1.60-3.17) g/dL 03/12/22 03/12/22 03/12/22 Range/Units 06:32 06:32 11:56 RBC 2.47 L (4.40-5.60) X 10*6/uL Hgb 7.0 L (13.0-17.0) g/dL Hct 24.4 L (39.6-50.0) % MCV 98.8 H (80.0-97.0) fL MCHC 28.7 L (32.0-37.0) g/dL RDW 14.7 H (11.5-14.5) % Plt Count 40 L (140-440) X 10*3/uL Plt Count Comment A Lymphocytes # 0.86 L (0.90-5.00) X 10*3/uL Immature Plt Fraction 17.3 H (1.1-6.1) % Sodium 147 H (135-145) mmol/L Chloride 110 H (96-109) mmol/L Anion Gap 9.70 L (10.00-18.00) mmol/L BUN 29.2 H (9.0-27.0) mg/dL Creatinine 1.9 H (0.6-1.5) mg/dL Est GFR (CKD-EPI)AfAm 35.9 L (60.0-200.0) Est GFR (CKD-EPI)NonAf 31.0 L (60.0-200.0) Glucose 157 H (70-110) mg/dL POC Glucose (mg/dL) 121 H (70-110) mg/dL Calcium 7.5 L (8.7-10.3) mg/dL Total Protein 4.8 L (6.2-8.2) g/dL Albumin 2.2 L (3.8-4.9) g/dL Albumin/Globulin Ratio 0.85 L (1.60-3.17) g/dL
[2022-03-13] MEDS: PANTOPRAZOLE 40 MG/10 ML VIAL IVP SCH (08:43)
[2022-03-13] MEDS: AMPICILLIN-SULBACTAM 3 GM in SODIUM CHLORIDE 0.9% 100 ML IVPB SCH ×2 (08:43→20:51)
[2022-03-13] MEDS: METOPROLOL TARTRATE 12.5 MG TAB PO SCH ×2 (08:44→20:51)
[2022-03-13] MEDS: FERROUS SULFATE 325 MG TAB PO SCH (08:44)
[2022-03-13] MEDS: allopurinoL 100 MG TAB PO SCH (08:44)
--- NOTE | 2022-03-13 10:25 | P.PN ---
Subjective Patient is seen in follow-up for acute kidney injury and electrolyte imbalance. Renal function improving. Sodium 140 today. Receiving D5W. Passed swallow eval. Tolerating dysphagia 1 pureed diet. Vital signs are stable. General: Awake. No acute distress. HEENT: Head exam is unremarkable. LUNGS: Breath sounds decreased. HEART: Rate and Rhythm are regular. ABDOMEN: Soft, no distention. EXTREMITITES: No edema. Objective - Vital Signs Vital signs: Vital Signs Temp 98.4 F 03/13/22 07:07 Pulse 71 03/13/22 07:07 Resp 17 03/13/22 07:07 BP 96/56 03/13/22 07:07 Pulse Ox 93 L 03/13/22 07:07 FiO2 Intake & Output 03/12/22 03/13/22 03/13/22 18:59 06:59 18:59 Intake Total 240 Output Total 875 300 Balance -875 -300 240 Weight 86 kg Intake: Oral 240 Output: Urine 875 300 Other: Voiding Method Indwelling Catheter Indwelling Catheter Indwelling Catheter - Labs CBC & Chem 7: 03/12/22 06:32 03/13/22 06:39 Labs: Abnormal Lab Results - Last 24 Hours (Table) 03/12/22 03/12/22 03/12/22 Range/Units 06:32 06:32 11:56 RBC 2.47 L (4.40-5.60) X 10*6/uL Hgb 7.0 L (13.0-17.0) g/dL Hct 24.4 L (39.6-50.0) % MCV 98.8 H (80.0-97.0) fL MCHC 28.7 L (32.0-37.0) g/dL RDW 14.7 H (11.5-14.5) % Plt Count 40 L (140-440) X 10*3/uL Plt Count Comment A Lymphocytes # 0.86 L (0.90-5.00) X 10*3/uL Immature Plt Fraction 17.3 H (1.1-6.1) % Sodium 147 H (135-145) mmol/L Chloride 110 H (96-109) mmol/L Anion Gap 9.70 L (10.00-18.00) mmol/L BUN 29.2 H (9.0-27.0) mg/dL Creatinine 1.9 H (0.6-1.5) mg/dL Est GFR (CKD-EPI)AfAm 35.9 L (60.0-200.0) Est GFR (CKD-EPI)NonAf 31.0 L (60.0-200.0) Glucose 157 H (70-110) mg/dL POC Glucose (mg/dL) 121 H (70-110) mg/dL Calcium 7.5 L (8.7-10.3) mg/dL Magnesium (1.6-2.3) mg/dL Total Protein 4.8 L (6.2-8.2) g/dL Albumin 2.2 L (3.8-4.9) g/dL Albumin/Globulin Ratio 0.85 L (1.60-3.17) g/dL 03/12/22 03/12/22 03/13/22 Range/Units 17:00 21:09 06:19 RBC (4.40-5.60) X 10*6/uL Hgb (13.0-17.0) g/dL Hct (39.6-50.0) % MCV (80.0-97.0) fL MCHC (32.0-37.0) g/dL RDW (11.5-14.5) % Plt Count (140-440) X 10*3/uL Plt Count Comment Lymphocytes # (0.90-5.00) X 10*3/uL Immature Plt Fraction (1.1-6.1) % Sodium (135-145) mmol/L Chloride (96-109) mmol/L Anion Gap (10.00-18.00) mmol/L BUN (9.0-27.0) mg/dL Creatinine (0.6-1.5) mg/dL Est GFR (CKD-EPI)AfAm (60.0-200.0) Est GFR (CKD-EPI)NonAf (60.0-200.0) Glucose (70-110) mg/dL POC Glucose (mg/dL) 125 H 121 H 154 H (70-110) mg/dL Calcium (8.7-10.3) mg/dL Magnesium (1.6-2.3) mg/dL Total Protein (6.2-8.2) g/dL Albumin (3.8-4.9) g/dL Albumin/Globulin Ratio (1.60-3.17) g/dL 03/13/22 03/13/22 Range/Units 06:33 06:39 RBC (4.40-5.60) X 10*6/uL Hgb (13.0-17.0) g/dL Hct (39.6-50.0) % MCV (80.0-97.0) fL MCHC (32.0-37.0) g/dL RDW (11.5-14.5) % Plt Count (140-440) X 10*3/uL Plt Count Comment Lymphocytes # (0.90-5.00) X 10*3/uL Immature Plt Fraction (1.1-6.1) % Sodium (135-145) mmol/L Chloride 109 H (96-109) mmol/L Anion Gap (10.00-18.00) mmol/L BUN 27 H (9.0-27.0) mg/dL Creatinine 1.79 H (0.6-1.5) mg/dL Est GFR (CKD-EPI)AfAm (60.0-200.0) Est GFR (CKD-EPI)NonAf (60.0-200.0) Glucose 151 H (70-110) mg/dL POC Glucose (mg/dL) 149 H (70-110) mg/dL Calcium 7.0 L (8.7-10.3) mg/dL Magnesium 1.5 L (1.6-2.3) mg/dL Total Protein (6.2-8.2) g/dL Albumin (3.8-4.9) g/dL Albumin/Globulin Ratio (1.60-3.17) g/dL Assessment and Plan Plan: Assessment: 1. Acute kidney injury mostly prerenal secondary to hypovolemia and infection. Creatinine was 4.9 on admission and is 1.79 today. No hydronephrosis noted on CAT scan. 2. Chronic kidney disease stage IIIa secondary to solitary right kidney. Creatinine 1.3-1.4 in October 2021. 3. Status post left nephrectomy. 4. Hypernatremia from lack of oral water intake. Better. 5. DKA s/p insulin drip. 6. Metabolic acidosis secondary to acute kidney injury and DKA. Improved. 7. History of dementia. 8. Anemia of chronic kidney disease. Iron replete. On Aranesp. 9. UTI and possible pneumonia on antibiotics. Urine culture positive for group D enterococcus. Infectious disease following. 10. Hypomagnesemia from poor intake. Plan: Change IV fluids to half-normal saline to be run at 50 mL an hour. Continue to monitor renal function and urine output Repeat labs in the morning. PEG tube not placed due to low platelets. Now tolerating diet. Replace magnesium.
[2022-03-13] MEDS: SODIUM CHLORIDE 0.45% 1,000 ML IV SCH (10:53)
[2022-03-13] MEDS: MAGNESIUM SULFATE-D5W PMX 1 GM in DEXTROSE/WATER 1 100ML.BAG IVPB SCH ×2 (10:53→12:17)
[2022-03-13 11:58] LABS: Glucose,Whole Blood 145 mg/dL (70-110)
--- NOTE | 2022-03-13 12:29 | FL ---
COMPARISON: NONE DATE OF EXAM: 03/12/2022 HISTORY: Dysphagia A limited substances were ingested under the care of the department of speech pathology. There is no evidence of aspiration or penetration. There is no evidence of obstruction. Delayed oral clearance and vallecular pooling noted. Fluoroscopy time of 2 minutes and 34 seconds of fluoroscopy time. No im ages submitted. IMPRESSION: 1. No evidence of aspiration or penetration.
--- NOTE | 2022-03-13 13:27 | P.PN ---
Subjective Progress Note Date: 03/13/22 HISTORY OF PRESENT ILLNESS This is an 87-year-old male patient of Dr. Hurd with past medical history of Parkinsons disease, Alzheimers dementia, diabetes mellitus type 2, chronic atrial fibrillation not on anticoagulation due to retroperitoneal hematoma, history of pneumonia, benign prostatic hypertrophy, chronic kidney disease with history of left-sided nephrectomy, history of large retroperitoneal hematoma 04/2021, history of aspiration pneumonia. Patient was hospitalized at [facility] due to failure to thrive increasing weakness and difficulty ambulatingfor 2 weeks and progressively worsening. Patient was treated for UTI and streptococcal bacteremia seen by infectious disease thought this was a contamination. Echocardiogram did not show any abnormalities stafford spicious for endocarditis. ID recommended a short course of Ceftin and patient was discharged to [facility] for subacute rehab. Patient was subsequently admitted for A. fib RVR and aspiration pneumonia. He was stabilized and discharged back to [facility] for subacute rehab. Upon his return, patient has been more weak, less involved in his care then prior admissions yesterday, patient was transferred to [facility] emergency center due to altered mental status and hypotension. Patient was found to be afebrile, heart rate 122, respiratory rate 26, blood pressure 89/59, pulse ox 91% on nonrebreather. EKG was atrial fibrillation with RVR with a ventricular rate of 123. WBC 5.2, hemoglobin 10.5, platelet count 152. Sodium 160, potassium 5, chloride 125, CO2 18, anion gap 17, BUN 176, creatinine 4.9. Blood sugar 515. Lactic acid 3.2. Calcium 8.9. Magnesium 3.1. Total bilirubin 0.5, AST 13 ALT 15, alkaline phosphatase 79. Urinalysis cloudy, glucose 3+, blood small, leukoe sterase large, WBCs 103. Acetone positive Chest x-ray revealed infiltrate right lower lung CAT scan of the abdomen and pelvis without contrast revealed no evidence of retroperitoneal hematoma. Bibasilar pneumonia, correlate for aspiration. Correlate for hemorrhagic material within the urinary bladder. Urinary bladder wall thickening. CAT scan of the brain revealed age-related atrophy and chronic small vessel ischemic change without acute intracranial process. Stable chronic right sided subdural collection. No acute intracranial hemorrhage. Patient was admitted into intensive care unit, consult with nephrology and flame burner.. 03/04: Patient is seen on the [facility] floor. He had an NG tube placed over the weekend and receiving Jevity at 40 ML's poor hour +300 ML's of water every 6 ho urs. Patient is on Unasyn for aspiration pneumonia. Patient is followed by pulmonary medicine, infectious disease and nephrology. Blood work today reveals WBC 6.2, hemoglobin 8.1 and platelet count of 80. Sodium 149, potassium 4.1, chloride 117, CO2 22, BUN 103 and creatinine 3.2. Capillary blood glucose running between 214 and 284. Urine culture was finalized with Enterococcus faecalis. IV fluids have been switched to D5W. Patient will be started on Levemir 15 units at bedtime, scheduled NovoLog 5 units every 6 hours and continue NovoLog scale. 03/05: Patient is slightly more alert today. He has been afebrile, heart rate 109, blood pressure 118/79, pulse ox 97% on 4 L nasal cannula. Repeat blood work reveals BUN 98 and creatinine 2.47, chloride 117, potassium 4.6. Capillary blood glucose running between 155 and 172. Patient is followed by pulmonary medicine, nephrology. Patient is continued on NG tube feedings with Jevity and free water flushes. 03/06: Patient has been evaluated by speech therapy at the bedside and has failed, worse than last week. Patient scheduled for modified barium swallow for tomorrow but suspect he most likely will require PEG tube placement. Dr. Cazares is making another attempt to contact patient's son. Patient has been afebrile, heart rate 97, blood pressure 151/82, pulse ox 99% on 4 L nasal cannula. Capillary blood glucose running between 134 and 229. Repeat blood work ordered for tomorrow. The patient is currently on feeding tubes at goal along with free water flushes. Ramirez catheter remains in place. He does have chronic Ramirez. 03/07: patient remains lethargic. He underwent modified barium swallow today and failed. Family will need to determine if they wish to go with a PEG tube or make patient comfort care. patient has had 2 NG tube removed by patient. Patient received Lasix yesterday forfluid overload and has had good urine output. Less edema today. Repeat blood work reveals WBC 10.9, hemoglobin 7.6 and platelet count 71. BUN 72 creatinine 2.4. With blood glucose this morning was 60. AST 66, ALT 51, alkaline phosphatase 70. 7/15: Patient is seen and followed by pulmonary medicine. Patient has now removed NG tube twice. Attempts have been made to contact patient's son regarding decisions regarding a PEG tube placement, comfort care and CODE STATUS. Repeat nursing updated that if family comes in in the afternoons or evenings, please contact Dr. Cazares to speak with the family regarding these issues. Patient is currently only receiving IV and subcu medications. Repeat chest x-ray 03/07 reveals pulmonary edema consistent with heart failure which is increased compared to recent exam. scheduled NovoLog and Levemir discontinued. Patient continues to have occasional cough, generalized significant weakness and mental status changes. He has been afebrile, heart rate 82, blood pressure 114/69, pulse ox 92% on 2 L nasal cannula. 03/09: Dr. Cazares was in contact with patient's and his son regarding patient's condition and prognoses as well as plan of care, they will decide regarding PEG tube placement but at this time, family have not made a decision. Nephrology has recommended IV fluids LR at 75 mL an hour, avoid hypoglycemic episodes, continue Aranesp and monitor lab work. Patient continues to be nothing by mouth. 03/10: Patient is laying down in bed he appears to be about the same he is not improving at all at this point in time, I had a conversation with his as well as his son recommended hospice/palliative care, they have not made a final decision, and the family elected to go for a full code patient will need to have a PEG tube placement and after that he would be transferred back to [facility] on the [place]. Patient has been on IV lactated Ringer, his sodium and potassium is good his creatinine still above the baseline his baseline creatinine is 1.6 currently 2.3, patient did not have any episode of hypoglycemia last night, patient is not able to swallow anything at this time, he had failed modified barium swallow, patient will need PEG tube if family elected for full code. 03/11: The patient is seen today on the [facility] floor. Contacted patient's son Yamil and family want to proceed with PEG tube insertion and feedings. Consult placed with Dr. Talbert and will see the patient tomorrow. However due to low platelet count, doubt that PEG tube can be placed. Patient is continued on IV antibiotics with Unasyn for urinary tract infection. No respiratory distress noted. Patient is been afebrile, heart rate 65, blood pressure 154/76, pulse ox 94% on 4 L nasal cannula. Repeat blood work reveals WBC 5.2, hemoglobin 7.4 platelet count 42. Sodium 151, potassium 4.6, chloride 112, CO2 is 23, BUN 35, creatinine 2.0. Glucose 116. Capillary blood glucose running between 98 and 110. Total bilirubin 0.3. Liver function tests are normal. 03/12: Patient we have agreed to move forward with PEG tube placement however due to thrombocytopenia, patient is not a surgical candidate. However, patient did well with a bedside evaluation with speech today and will undergo modified barium swallow and hopefully be able to start some oral feedings. Patient has been hemodynamically stable. Blood sugars are stable. Repeat BUN 29 creatinine 1.9. Patient is continued on Unasyn per Dr. Arias and he is also on D5W at 75 mL per hour. 03/13: Fortunately, patient underwent modified barium swallow yesterday and patient was cleared by speech therapy to start pured diet with thickened liquids. Patient has been able to tolerate diet and ate full breakfast this morning and also did well at lunch. His repeat blood work reveals sodium 140, potassium 3.8, chloride 109, CO2 29, BUN 27 creatinine 1.79. Expect the blood sugars will be rising with intake of food. Nephrology recommends continuing half normal saline at 50 mL per hour and monitor renal function and urine output, replace magnesium. We'll ask for therapies to come back and evaluate him now that he is more alert and can purchase of 8. REVIEW OF SYSTEMS Constitutional: No fever, no chills, no night sweats. No weight change. Noted weakness, noted fatigue no lethargy. Noted daytime sleepiness. EENT: No headache. No blurred vision or double vision, no loss of vision. No loss of Hearing, no ringingin the ears, no dizziness. No nasal drainage or congestion. No epistaxis. No sore throat. Lungs: No complaints of shortness of breath, + cough-appears improved, no sputum production. No wheezing. Cardiovascular: No chest pain, no lower extremity edema. No palpitations. No paroxysmal nocturnal dyspnea. No orthopnea. No lightheadedness or dizziness. No syncopal episodes. Abdominal: No abdominal pain. No nausea, vomiting. No diarrhea. No constipation. No bloody or tarry stools. No loss of appetite. Genitourinary: No dysuria, increased frequency, urgency. No urinary retention. Musculoskeletal: No myalgias. No muscle weakness, reported gait dysfunction, no frequent falls. No back pain. No neck pain. Integumentary: No wounds, no lesions. No rash or pruritus. No unusual bruising. No change in hair or nails. Neurologic: No aphasia. No facial droop. Noted change in mentation continues. No head injury. No headache. No paralysis. No paresthesia. Psychiatric: Presumed depression. No anxiety. No mood swings. Endocrine: No abnormal blood sugars. No weight change. No excessive sweating or thirst. PHYSICAL EXAMINATION Gen: This is an 87-year-old male. He is resting in bed and appears to be comfortable. No respiratory distress is noted. HEENT: Head is atraumatic, normocephalic. Pupils equal, round. Sclerae is anicteric. NECK: Supple. No JVD. No lymphadenopathy. No thyromegaly. LUNGS: Decreased breath sounds bilaterally with a few scattered rhonchi. No intercostal retractions. HEART: Irregular rate and rhythm. 2/6 systolic murmur. ABDOMEN: Soft. Bowel sounds are present. No masses. No tenderness. Ramirez draining vincenzo urine with seiment. EXTREMITIES: No pedal edema. No calf tenderness. NEUROLOGICAL: Patient is awake and alert, oriented to person, generalized weakness. ASSESSMENT AND PLAN 1. Acute sepsis and septic shock secondary to aspiration pneumonia and Ramirez catheter associated urinary tract infection. Continue patient management on the [facility] unit, pulmonary consult appreciated, patient is on Unasyn per infectious disease. Urine culture positive for Enterococcus faecalis. 2. Acute kidney injury secondary to hypovolemia and infection. Consult with nephrology appreciated. Patient is half normal saline at 50 mL per hour. 3. Hypernatremia due to poor oral water intake. 4. DKA, diabetes mellitus type 2. patient now having episodes of hypoglycemia. Continue NovoLog scale only. 5. Metabolic acidosis secondary to acute kidney injury and DKA. 6. Anemia of chronic disease. continue Aranesp 40 g subcu every 7 days, ferrous sulfate 325 mg daily. 7. A. fib with RVR. Patient started on Lopressor 12.5 mg twice daily No plan to start on anticoagulation due to previous bleeding. 8. Chronic atrial fibrillation not on anticoagulation due to retroperitoneal hematoma. 9. Metabolic encephalopathy secondary to pneumonia, UTI and sepsis. Continue treatment as above. 10. COPD without exacerbation. 11. Chronic hypoxic respiratory failure recently weaned off oxygen. 12. Diabetes mellitus type 2. NovoLog scale. 13. Benign prostatic hypertrophy with urinary retention and chronic Ramirez catheter. 14. Chronic kidney disease stage III with history of left-sided nephrectomy. Avoid nephrotoxic agents. 15. History of large retroperitoneal hematoma with acute blood loss, stable, 04/2021. 16. Chronic gout. Continue allopurinol 100 mg daily. 17. Recurrent depression. Resume Zoloft 50 mg at bedtime. 18. Generalized anxiety disorder. 19. Pressure ulcer coccyx and pressure ulcer penis, present on admission. Continue local wound care and offloading. 20. Failed swallow evaluation and severe protein calorie malnutrition. Family wished to pursue PEG tube feeding however platelet count is too low. Consult with GI appreciated. Patient showed improvement on modified barium swallow 03/12 and started on pured diet with thickened liquids. Plan for PEG tube is placed on hold. 21. GI prophylaxis. Protonix 40 mg IV push daily. 22. DVT prophylaxis. SCDs and JARRET hose. 23. Thrombocytopenia, chronic. CODE STATUS: Full code. Very poor prognosis DISCHARGE PLAN Return to [facility] on Impression and plan of care have been directed as dictated by the signing lc grimes. Cindy Tobias nurse practitioner acting as scribe for signing physician. Objective - Vital Signs Vital signs: Vital Signs Temp 98.4 F 03/13/22 07:07 Pulse 71 03/13/22 07:07 Resp 17 03/13/22 07:07 BP 96/56 03/13/22 07:07 Pulse Ox 93 L 03/13/22 07:07 FiO2 Intake & Output 03/12/22 03/13/22 03/13/22 18:59 06:59 18:59 Intake Total 240 Output Total 875 300 Balance -875 -300 240 Weight 86 kg Intake: Oral 240 Output: Urine 875 300 Other: Voiding Method Indwelling Catheter Indwelling Catheter Indwelling Catheter - Labs CBC & Chem 7: 03/12/22 06:32 03/13/22 06:39 Labs: Abnormal Lab Results - Last 24 Hours (Table) 03/12/22 03/12/22 03/12/22 Range/Units 06:32 06:32 11:56 RBC 2.47 L (4.40-5.60) X 10*6/uL Hgb 7.0 L (13.0-17.0) g/dL Hct 24.4 L (39.6-50.0) % MCV 98.8 H (80.0-97.0) fL MCHC 28.7 L (32.0-37.0) g/dL RDW 14.7 H (11.5-14.5) % Plt Count 40 L (140-440) X 10*3/uL Plt Count Comment A Lymphocytes # 0.86 L (0.90-5.00) X 10*3/uL Immature Plt Fraction 17.3 H (1.1-6.1) % Sodium 147 H (135-145) mmol/L Chloride 110 H (96-109) mmol/L Anion Gap 9.70 L (10.00-18.00) mmol/L BUN 29.2 H (9.0-27.0) mg/dL Creatinine 1.9 H (0.6-1.5) mg/dL Est GFR (CKD-EPI)AfAm 35.9 L (60.0-200.0) Est GFR (CKD-EPI)NonAf 31.0 L (60.0-200.0) Glucose 157 H (70-110) mg/dL POC Glucose (mg/dL) 121 H (70-110) mg/dL Calcium 7.5 L (8.7-10.3) mg/dL Magnesium (1.6-2.3) mg/dL Total Protein 4.8 L (6.2-8.2) g/dL Albumin 2.2 L (3.8-4.9) g/dL Albumin/Globulin Ratio 0.85 L (1.60-3.17) g/dL 03/12/22 03/12/22 03/13/22 Range/Units 17:00 21:09 06:19 RBC (4.40-5.60) X 10*6/uL Hgb (13.0-17.0) g/dL Hct (39.6-50.0) % MCV (80.0-97.0) fL MCHC (32.0-37.0) g/dL RDW (11.5-14.5) % Plt Count (140-440) X 10*3/uL Plt Count Comment Lymphocytes # (0.90-5.00) X 10*3/uL Immature Plt Fraction (1.1-6.1) % Sodium (135-145) mmol/L Chloride (96-109) mmol/L Anion Gap (10.00-18.00) mmol/L BUN (9.0-27.0) mg/dL Creatinine (0.6-1.5) mg/dL Est GFR (CKD-EPI)AfAm (60.0-200.0) Est GFR (CKD-EPI)NonAf (60.0-200.0) Glucose (70-110) mg/dL POC Glucose (mg/dL) 125 H 121 H 154 H (70-110) mg/dL Calcium (8.7-10.3) mg/dL Magnesium (1.6-2.3) mg/dL Total Protein (6.2-8.2) g/dL Albumin (3.8-4.9) g/dL Albumin/Globulin Ratio (1.60-3.17) g/dL 03/13/22 03/13/22 Range/Units 06:33 06:39 RBC (4.40-5.60) X 10*6/uL Hgb (13.0-17.0) g/dL Hct (39.6-50.0) % MCV (80.0-97.0) fL MCHC (32.0-37.0) g/dL RDW (11.5-14.5) % Plt Count (140-440) X 10*3/uL Plt Count Comment Lymphocytes # (0.90-5.00) X 10*3/uL Immature Plt Fraction (1.1-6.1) % Sodium (135-145) mmol/L Chloride 109 H (96-109) mmol/L Anion Gap (10.00-18.00) mmol/L BUN 27 H (9.0-27.0) mg/dL Creatinine 1.79 H (0.6-1.5) mg/dL Est GFR (CKD-EPI)AfAm (60.0-200.0) Est GFR (CKD-EPI)NonAf (60.0-200.0) Glucose 151 H (70-110) mg/dL POC Glucose (mg/dL) 149 H (70-110) mg/dL Calcium 7.0 L (8.7-10.3) mg/dL Magnesium 1.5 L (1.6-2.3) mg/dL Total Protein (6.2-8.2) g/dL Albumin (3.8-4.9) g/dL Albumin/Globulin Ratio (1.60-3.17) g/dL
--- NOTE | 2022-03-13 13:45 | P.PN ---
Subjective Progress Note Date: 03/13/22 Principal diagnosis: Weakness, hypernatremia, altered mental status, diabetic ketoacidosis, suspected aspiration pneumonia, acute UTI This is an 87-year-old white male with history of multiple comorbidities, patient was brought yesterday by EMS from the nursing facility with mostly complaints of low blood pressure and the patient has been noted to be lethargic. Patient had previous history of documented coronary artery disease, history of intracranial hemorrhage/subdural hematoma, chronic atrial fibrillation, hypertension, diabetes. Patient is not a great historian, apparently when he arrived to the ER, patient was found to have multiple abnormal labs including blood sugar over 500 anion gap metabolic acidosis hypernatremia with sodium of 160 acute kidney injury with BUN of 169 and creatinine 4.75, abnormal urinalysis, and abnormal chest x-ray suggestive of right lower lobe pneumonia questionable aspiration pneumonia considering the patient's overall mental statu s patient was obviously septic, and dehydrated upon his initial presentation. He received fluid boluses, blood pressure responded to fluid boluses but the patient did not require to be placed on pressors. Patient was placed empirically on antibiotics for presumptive pneumonia and possible urinary tract infection he was placed on the DKA protocol, and when the ER physician discussed the case with me I recommended definite admission to the ICU. Saw the patient this morning, remains on insulin drip at 1 unit per hour. His IV fluid was transitioned from 0.9 normal saline to D5W at 200 mL per hour. Patient is making urine around 50 mL per hour. More fluid boluses were given this morning. And we are closely monitoring his electrolytes and renal profile sodium remains relatively elevated at 160. However his anion gap corrected nicely and his anion gap this morning is 10. Bicarb is 18. Renal profile showed slight improvement since yesterday on admission ABG on admission showed a pO2 of 88 pCO2 31 pH of 7.37 and this was on the percent FiO2 in the ER. Presently the patient is on nasal cannula at 4 L/m and O2 saturations 93% cultures are pending patient remains on Zosyn and I discontinued his cefepime and vancomycin. Reevaluated today on 03/02/2022, patient remains in the ICU, she is on 2 L nasal cannula, O2 sats is 96%. Patient continues to be relatively lethargic, continues to have significant non-anion gap metabolic acidosis, placed on bicarb drip at 150 mL per hour. Continues to have hypernatremia however the sodium is improving and today I recommended free water flushes through a nasogastric tube to be placed mode every 4 nutritional support and also for free water flushes. Patient remains to have significant free water deficit with relatively high sodium. Mentation remains poor, patient is lethargic, arousable, unable to swallow on his own. Hence I feel it would be best to start enteral feeding via nasogastric tube today. He has a very poor appetite, and does not seem to swallow well. Remains in atrial fibrillation with controlled rate. Denies any shortness of breath cough wheezing denies any nausea vomiting or abdominal pain. Sodium today is 153 bicarb is 16 anion gap is 10 and BUN is 149 and creatinine 3.72. Reevaluated today on 03/03/2022, patient remains in the ICU, he is doing much better today compared to the last couple of days. His sodium has corrected nicely is down to 147 today. His bicarb also corrected nicely and he is off bicarb drip. Patient is on 4 L nasal cannula with O2 sats of 93%. His IV fluid is D5 4 5 at 75 mL/h and I have cut down his free water flushes to 200 mL every 6 hours via nasogastric tube. Patient is also receiving enteral feeding. Patient is awake but remains confused. Today I plan to transfer the patient out of the ICU, he can go to a regular medical floor, he will need to have swallow evaluation and may even have to consider a PEG tube placement if he failed the swallow evaluation. In the meantime we are continuing his antibiotics for presumptive sepsis and aspiration pneumonia. CBC today is relatively unremarkable. His BUN is down to 125 creatinine is down to 3.27. And sodium is 147 bicarb is 23. On 03/04/2022 patient seen in follow-up on medical surgical floor, he was transferred out of intensive care unit yesterday, he is much more awake and responsive on today's exam, he still confused, but appears to be in no distress, breathing comfortably, FiO2 is 4 L pulse ox is 96%, afebrile, blood pressures stable. NG tube remains in place the patient has Jevity infusing at a rate of 40 ML per hour, with 300 mL free water flushes every 6 hours. In addition patient remains on D5W at a rate of 75 ML per hour, he is on Unasyn for urine checked infection related to enterococcus faecalis. No nausea or vomiting, no diarrhea, abdomen is soft. Follow-up chest x-ray today shows chronic changes, with bibasilar opacities with slight worsening at the left lung base. Clinically patient denies any worsening dyspnea no cough, no chest congestion or chest pain. Today's labs have been reviewed, white blood cell count of 6.3, hemoglobin is 8.1, sodium today is 149, potassium is 4.1, BUN is 103, creatinine 3.2 renal profile is improving On 03/05/2022 patient seen in follow-up on medical surgical floor. He is awake and alert, he is oriented to person only, disoriented to place and time. Denies any acute distress, no complaints of shortness of breath or cough, no chest discomfort, he remains on D5W at 75 ML per hour, NG tube remains in place with Jevity infusing at 67 ML per hour and free water flushes. His been afebrile. He remains on Unasyn for enterococcus faecalis urinary tract infection. No fever or chills. He was seen by speech therapy and evaluation, and the recommendation has been made to continue with tube feedings for now as the patient's been noted to have increased congestion, and wet voice during the speech evaluation. However his level of consciousness significantly improved since admission. On 03/06/2020 patient seen in follow-up on an apical surgical floor. He is lethargic on today's exam, but does wake up to verbal stimulation, seems comf ortable, no evidence of any respiratory difficulty, he remains on 4 L of oxygen pulse ox is 95-90%, vital signs have been stable, no fever or chills, he remains on Unasyn for Enterococcus faecalis urinary tract infection. NG tube remains in place and tube feedings in the form of Jevity solution is infusing at a rate of 67 ML per hour, and patient remains on 300 mL free water flushes every 6 hours. In addition patient remains on D5W at a rate of 75 ML per hour, nephrology is following, today's labs are still pending for today, but yesterday's labs showed improving serum sodium which is down to 145, potassium is 4.6, renal profile was noted to be improving, BUN was down to 98, creatinine was 2.47. On 03/11/2022 patient seen in follow-up on medical surgical floor. Patient is lethargic, but arousable to voice, does not appear to be in any acute distress. On 4 L of oxygen his pulse ox is 93%, his been afebrile overnight. Patient has remained nothing by mouth, currently remains on Lactated Ringer's at 75 ML per hour, patient's sodium is on the rise and is up to 151 on today's labs., patient had pulled out his NG tube 2 in the last several days. Patient had a modified barium swallow and there was moderate silent aspiration of thin liquids and nectar thick barium. Patient also remains on IV antibiotics with Unasyn for evidence of Enterococcus faecalis urinary tract infection. Last chest x-ray from 03/07/2022 showed interstitial interstitial and airspace edema. Patient does not appear to be in any respiratory distress. The recommendation was for consideration of alternative method of feeding possibly PEG tube placement. On 03/12/2022 patient seen in follow-up on medical surgical floor. He is more arousable today, he opens eyes to voice easily, gives simple verbal responses. He is confused, not agitated, does not appear to be in any distress, breathing currently, 4 L of oxygen his pulse ox is 93-98%, monocytes a stable overnight. No fever or chills, blood pressure stable. He remains nothing by mouth and patient had previously failed modified barium swallow and was noted to be silently aspirating on nectar thick and thin liquids. Currently the patient rem ains a full code, the family opted to go with the PEG tube placement however patient slightly count was noted to be low at 42,000 and the procedure has been put on hold. Repeat modified barium swallow isscheduled for today. Maintained patient remains on D5W at a rate of 100 ML per hour, and today's sodium is improving and is at 147, potassium is 4.1, chloride is 110, BUN is 29, creatinine is 1.9. Ramirez catheter is in place for your monitoring, and patient has been nonoliguric, and has produced 1.125 ML of urine output in last 24 hours. White count is normal at 5.28, hemoglobin is 7.0. Patient remains on Unasyn for urinary tract infection related to enterococcus faecalis On 03/13/2022 patient seen in follow-up on medical surgical floor. He arouses to voice, he denies any specific complaints, denies any shortness of breath, no coughing, no wheezing or phlegm production. He is on 3 to his oxygen pulse ox is 95%, his been afebrile, hemodynamically has been stable. Repeat modified barium swallow was completed showing no evidence of aspiration or penetration. Patient has been started on dysphagia level I with pured diet and honey thick liquids with supervision and aspiration precautions. Patient remains on Unasyn for abiotic coverage, ID service is following and managing antibiotics, IV fluids half-normal saline at a rate of 50 ML per hour per nephrology, D5W has been discontinued. Serum sodium is 140, potassium is 3.9, chloride is 109, BUN is 27 and creatinine is 1.79. he has had no fever or chills. Objective - Vital Signs Vital signs: Vital Signs Temp 98.4 F 03/13/22 07:07 Pulse 71 03/13/22 07:07 Resp 17 03/13/22 07:07 BP 96/56 03/13/22 07:07 Pulse Ox 93 L 03/13/22 07:07 FiO2 Intake & Output 03/12/22 03/13/22 03/13/22 18:59 06:59 18:59 Intake Total 240 Output Total 875 300 Balance -875 -300 240 Weight 86 kg Intake: Oral 240 Output: Urine 875 300 Other: Voiding Method Indwelling Catheter Indwelling Catheter Indwelling Catheter # Bowel Movements 1 - Exam GENERAL EXAM: Sleepy but does wake up to voice very pleasant, 87-year-old white male, pleasantly confused, oriented to self, on 3 L of oxygen pulse ox is 93% comfortable in no apparent distress. HEAD: Normocephalic/atraumatic. EYES: Normal reaction of pupils, equal size. Conjunctiva pink, sclera white. NOSE: Clear with pink turbinates. THROAT: No erythema or exudates. NECK: No masses, no JVD, no thyroid enlargement, no adenopathy. CHEST: No chest wall deformity. Symmetrical expansion. LUNGS: Equal air entry with no crackles, wheeze, rhonchi or dullness. CVS: Regular rate and rhythm, normal S1 and S2, no gallops, no murmurs, no rubs ABDOMEN: Soft, nontender. No hepatosplenomegaly, normal bowel sounds, no guarding or rigidity. EXTREMITIES: No clubbing, no edema, no cyanosis, 2+ pulses and upper and lower extremities. MUSCULOSKELETAL: Muscle strength and tone normal. SPINE: No scoliosis or deformity SKIN: No rashes CENTRAL NERVOUS SYSTEM: Alert and oriented -1. No focal deficits, tone is nor mal in all 4 extremities. PSYCHIATRIC: Alert and oriented -1. Appropriate affect. Intact judgment and insight. - Labs CBC & Chem 7: 03/12/22 06:32 03/13/22 06:39 Labs: Abnormal Lab Results - Last 24 Hours (Table) 03/12/22 03/12/22 03/13/22 Range/Units 17:00 21:09 06:19 Chloride (98-107) mmol/L BUN (9-20) mg/dL Creatinine (0.66-1.25) mg/dL Glucose (74-99) mg/dL POC Glucose (mg/dL) 125 H 121 H 154 H (70-110) mg/dL Calcium (8.4-10.2) mg/dL Magnesium (1.6-2.3) mg/dL 03/13/22 03/13/22 03/13/22 Range/Units 06:33 06:39 11:56 Chloride 109 H (98-107) mmol/L BUN 27 H (9-20) mg/dL Creatinine 1.79 H (0.66-1.25) mg/dL Glucose 151 H (74-99) mg/dL POC Glucose (mg/dL) 149 H 145 H (70-110) mg/dL Calcium 7.0 L (8.4-10.2) mg/dL Magnesium 1.5 L (1.6-2.3) mg/dL Assessment and Plan Plan: Assessment: Acute sepsis related to possible aspiration pneumonia, and urinary tract infection with urine culture positive for enterococcus faecalis, currently on Unasyn Altered mental status related to the above, improved Hypernatremia R/T poor oral intake, status nothing by mouth and evidence of silent aspiration on thin and nectar fluids. Repeat modified barium swallow showed no evidence of aspiration or penetration Acute on chronic kidney disease, patient has a history of chronic disease stage IIIa and as solitary right kidney, renal function is improving Profound dehydration secondary to the above, improving History of Alzheimer's dementia Acute aspiration pneumonia Acute urinary tract infection group D enterococcus on Unasyn Plan: Maintain aspiration precautions Repeat modified barium swallow showed no evidence of aspiration or penetration Patient has been started on dysphagia diet with honey thick liquids with supervision No plans for PEG tube insertion at this time From respiratory standpoint patient is breathing comfortably, vital signs are stable No fever or chills Antibiotic coverage per ID service recommendations Pulmonary service will sign no further follow-up on as-needed basis I have personally seen and examined the patient, performed the documentation and the assessment and plan as written. N I have personally seen and examined the patient and reviewed the documentation. I performed a joint evaluation with the nurse practitioner in this evaluation was done more than 20 minutes. I fully agree with the documentation above and the plan of care.. The patient seems to be swallowing failure for now. However this may be a limited progress and ultimately to prevent any aspiration and meet his caloric requirements, I think it the better off with a PEG tube. In any rate, the final decision will be done by the family and the medical team. From the pulmonary critical care standpoint, the patient is stable and we will sign off the case. Note that his sodium level is also improved. Time with Patient: Less than 30
--- NOTE | 2022-03-13 14:57 | P.PN ---
Subjective Progress Note Date: 03/13/22 Principal diagnosis: Aspiration pneumonia consult for PEG tube This is a 87-year-old male with multiple comorbidities including Parkinson's disease, Alzheimer's dementia, diabetes mellitus type 2, chronic atrial fibrillation, retroperitoneal hematoma, history of pneumonia, BPH, chronic kidney disease with history of left-sided nephrectomy, history of subdural hematoma and aspiration pneumonia who presented to the emergency department on 02/28/2022 with altered mental status changes and lethargy. Patient was admitted with acute kidney injury, hyper natremia hypotension, acute diabetic ketoacidosis, sepsis likely secondary to aspiration pneumonia and dehydration. The patient initially had a evaluation by speech therapy with a modified barium swallow with evidence of silent aspiration. The patient was made nothing by mouth and NG tube was placed with tube feedings however the patient had pulled out the NG tube 2. Recommendation is for possible comfort and/or hospice care by primary care physician however family is requesting PEG tube placement. Patient did undergo a repeat swallow evaluation this morning and patient was more alert and they have recommended patient's diet to pured diet with honey thickened liquids and that patient demonstrated adequate oral and pharyngeal phases with no overt signs or symptoms of aspiration penetration or decline in respiratory status, however awaiting MBS. Patient is somewhat confused he was very lethargic however easily arousable to name. He states he is doing fine denies any abdominal pain, nausea or vomiting. 03/13/2022: Patient seen and examined has a follow-up for consult to gastroenterology for possible PEG tube placement. However patient has become more alert and was seen again and evaluated by speech therapy. They cleared him for pured diet with honey thick liquids with supervised feedings and aspiration precautions. He reportedly ate his entire breakfast this morning without any difficulty. No signs or symptoms of aspiration or choking. Again patient is a poor surgical candidate due to thrombocytopenia, last platelet count 40,000. Objective - Vital Signs Vital signs: Vital Signs Temp 98.4 F 03/13/22 07:07 Pulse 71 03/13/22 07:07 Resp 17 03/13/22 07:07 BP 96/56 03/13/22 07:07 Pulse Ox 93 L 03/13/22 07:07 FiO2 Intake & Output 03/12/22 03/13/22 03/13/22 18:59 06:59 18:59 Output Total 875 300 Balance -875 -300 Weight 86 kg Output: Urine 875 300 Other: Voiding Method Indwelling Catheter Indwelling Catheter - Exam General appearance: The patient is awake and alert, appears in no acute distress. HET: Head is normocephalic and atraumatic. Conjunctiva pink. Sclera anicteric. Neck: Supple without lymphadenopathy. Abdomen: Soft, nontender, nondistended with bowel sounds. No guarding or rigidity. Extremities: Normal skin color and turgor. No pedal edema Skin: No rashes, no jaundice Neurological: Awake, alert to self. - Labs CBC & Chem 7: 03/12/22 06:32 03/13/22 06:39 Labs: Abnormal Lab Results - Last 24 Hours (Table) 03/12/22 03/12/22 03/12/22 Range/Units 06:32 06:32 11:56 RBC 2.47 L (4.40-5.60) X 10*6/uL Hgb 7.0 L (13.0-17.0) g/dL Hct 24.4 L (39.6-50.0) % MCV 98.8 H (80.0-97.0) fL MCHC 28.7 L (32.0-37.0) g/dL RDW 14.7 H (11.5-14.5) % Plt Count 40 L (140-440) X 10*3/uL Plt Count Comment A Lymphocytes # 0.86 L (0.90-5.00) X 10*3/uL Immature Plt Fraction 17.3 H (1.1-6.1) % Sodium 147 H (135-145) mmol/L Chloride 110 H (96-109) mmol/L Anion Gap 9.70 L (10.00-18.00) mmol/L BUN 29.2 H (9.0-27.0) mg/dL Creatinine 1.9 H (0.6-1.5) mg/dL Est GFR (CKD-EPI)AfAm 35.9 L (60.0-200.0) Est GFR (CKD-EPI)NonAf 31.0 L (60.0-200.0) Glucose 157 H (70-110) mg/dL POC Glucose (mg/dL) 121 H (70-110) mg/dL Calcium 7.5 L (8.7-10.3) mg/dL Magnesium (1.6-2.3) mg/dL Total Protein 4.8 L (6.2-8.2) g/dL Albumin 2.2 L (3.8-4.9) g/dL Albumin/Globulin Ratio 0.85 L (1.60-3.17) g/dL 03/12/22 03/12/22 03/13/22 Range/Units 17:00 21:09 06:19 RBC (4.40-5.60) X 10*6/uL Hgb (13.0-17.0) g/dL Hct (39.6-50.0) % MCV (80.0-97.0) fL MCHC (32.0-37.0) g/dL RDW (11.5-14.5) % Plt Count (140-440) X 10*3/uL Plt Count Comment Lymphocytes # (0.90-5.00) X 10*3/uL Immature Plt Fraction (1.1-6.1) % Sodium (135-145) mmol/L Chloride (96-109) mmol/L Anion Gap (10.00-18.00) mmol/L BUN (9.0-27.0) mg/dL Creatinine (0.6-1.5) mg/dL Est GFR (CKD-EPI)AfAm (60.0-200.0) Est GFR (CKD-EPI)NonAf (60.0-200.0) Glucose (70-110) mg/dL POC Glucose (mg/dL) 125 H 121 H 154 H (70-110) mg/dL Calcium (8.7-10.3) mg/dL Magnesium (1.6-2.3) mg/dL Total Protein (6.2-8.2) g/dL Albumin (3.8-4.9) g/dL Albumin/Globulin Ratio (1.60-3.17) g/dL 03/13/22 03/13/22 Range/Units 06:33 06:39 RBC (4.40-5.60) X 10*6/uL Hgb (13.0-17.0) g/dL Hct (39.6-50.0) % MCV (80.0-97.0) fL MCHC (32.0-37.0) g/dL RDW (11.5-14.5) % Plt Count (140-440) X 10*3/uL Plt Count Comment Lymphocytes # (0.90-5.00) X 10*3/uL Immature Plt Fraction (1.1-6.1) % Sodium (135-145) mmol/L Chloride 109 H (96-109) mmol/L Anion Gap (10.00-18.00) mmol/L BUN 27 H (9.0-27.0) mg/dL Creatinine 1.79 H (0.6-1.5) mg/dL Est GFR (CKD-EPI)AfAm (60.0-200.0) Est GFR (CKD-EPI)NonAf (60.0-200.0) Glucose 151 H (70-110) mg/dL POC Glucose (mg/dL) 149 H (70-110) mg/dL Calcium 7.0 L (8.7-10.3) mg/dL Magnesium 1.5 L (1.6-2.3) mg/dL Total Protein (6.2-8.2) g/dL Albumin (3.8-4.9) g/dL Albumin/Globulin Ratio (1.60-3.17) g/dL Assessment and Plan (1) Pneumonia Narrative/Plan: 87-year-old male with multiple comorbidities with declining health who presented to the emergency department from assisted living with complaints of lethargy and mental status changes. Is noted to have aspiration pneumonia, hypotension, diabetic ketoacidosis urinary tract infection amongst others. During the admission he underwent a modified barium swallow study with speech therapy which at that time showed silent aspiration. He was eventually started on tube feedings through a NG tube however pulses O 2. He is more alert apparently over the last day and underwent a repeat swallow evaluation this morning with speech therapy that showed no signs or symptoms of aspiration and recommended a pured diet with honey thickened liquids. Apparently prior to this the family had been requesting PEG tube for nutrition. However at this time patient does have thrombocytopenia with platelets at 42,000 and is not a good surgical candidate. As well as would need clearance from cardiology as well as pulmonology if we were to proceed with PEG tube placement Patient's repeat modified barium swallow study with speech therapy showed no silent aspiration. They are recommending pured diet with honey thickened liquids. Patient tolerating his breakfast well. No plans on PEG tube p lacement. Current Visit: Yes Status: Acute Code(s): J18.9 - PNEUMONIA, UNSPECIFIED ORGANISM SNOMED Code(s): 469726754 (2) Thrombocytopenia Current Visit: Yes Status: Acute Code(s): D69.6 - THROMBOCYTOPENIA, UNSPECIFIED SNOMED Code(s): 257668758 (3) Atrial fibrillation Current Visit: Yes Status: Acute Code(s): I48.91 - UNSPECIFIED ATRIAL FIBRILLATION SNOMED Code(s): 45983016 (4) Sepsis Current Visit: Yes Status: Acute Code(s): A41.9 - SEPSIS, UNSPECIFIED ORGANISM SNOMED Code(s): 12788881 (5) UTI (urinary tract infection) Current Visit: Yes Status: Acute Code(s): N39.0 - URINARY TRACT INFECTION, SITE NOT SPECIFIED SNOMED Code(s): 66089704 Plan: 1. Continue symptomatic and supportive care 2. Patient underwent repeat swallow evaluation with speech therapy, the heart recommending pured diet with honey thickened liquids 3. Daily CBC 4. Nothing by mouth until further recommendations from speech therapy 5. Patient is not a good surgical candidate at this time due to multiple comorbidities as well as thrombocytopenia. Patient is tolerating his meals. No need for PEG tube placement at this time. Thank you for this consultation, we will sign off at this time. Dr. Johan Talbert I agree with the dictator's note, documented as a scribe by Kristal Cramer.
[2022-03-13 17:32] LABS: Glucose,Whole Blood 132 mg/dL (70-110)
[2022-03-13] MEDS: SERTRALINE 50 MG TAB PO SCH (20:51)
[2022-03-13 20:56] LABS: Glucose,Whole Blood 153 mg/dL (70-110)
[2022-03-14 01:20] LABS: Glucose,Whole Blood 141 mg/dL (70-110)
[2022-03-14] MEDS: INSULIN ASPART (NovoLOG) 100 UNIT/ML VIAL SQ SCH ×4 (01:29→16:45)
[2022-03-14 05:35] LABS: Glucose,Whole Blood 132 mg/dL (70-110)
[2022-03-14] MEDS: SODIUM CHLORIDE 0.45% 1,000 ML IV SCH (05:54)
[2022-03-14] MEDS ORDERED: IPRATROPIUM-ALBUTEROL 3 ML NEB INHALATION STA ×2 (06:42→06:44)
[2022-03-14] MEDS ORDERED: methylPREDNISolone SOD SUCCI 125 MG/2 ML VIAL IV STA (06:45)
[2022-03-14 07:13] LABS: Glucose,Whole Blood 135 mg/dL (70-110)
--- NOTE | 2022-03-14 07:17 | XR ---
EXAMINATION TYPE: XR chest 1V DATE OF EXAM: 03/14/2022 COMPARISON: 03/07/2022 HISTORY: 87-year-old male shortness of breath, rule out aspiration TECHNIQUE: Single frontal view of the chest is obtained. FINDINGS: Heart borderline enlarged. Diffuse interstitial opacities with patchy mid and lower lung o pacities persist. These are similar to slightly increased from prior. No sizable pleural effusion on frontal view. IMPRESSION: Diffuse interstitial opacities and patchy mid and lower lung infiltrates persist, similar to slightly increased from prior exam.
--- NOTE | 2022-03-14 07:45 | P.DS ---
Providers Date of admission: 02/28/22 19:14 Expected date of discharge: 03/15/22 Attending physician: Wilfred Cazares Consults: 02/28/22 19:14 Consult Physician Routine Consulting Provider: Dominick Parra Consult Reason/Comments: aura Do you want consulting provider notified?: Yes Consult Physician Routine Consulting Provider: Annalisa Arias Consult Reason/Comments: sepsis Do you want consulting provider notified?: Yes Consult Physician Stat Consulting Provider: Amanda Parker Consult Reason/Comments: icu patient Do you want consulting provider notified?: Already Contacted Primary care physician: [facility] Course: HISTORY OF PRESENT ILLNESS This is an 87-year-old male patient of Dr. Hurd with past medical history of Parkinsons disease, Alzheimers dementia, diabetes mellitus type 2, chronic atrial fibrillation not on anticoagulation due to retroperitoneal hematoma, history of pneumonia, benign prostatic hypertrophy, chronic kidney disease with history of left-sided nephrectomy, history of large retroperitoneal hematoma 04/2021, history of aspiration pneumonia. Patient was hospitalized at [facility] due to failure to thrive increasing weakness and difficulty ambulatingfor 2 weeks and progressively worsening. Patient was treated for UTI and streptococcal bacteremia seen by infectious disease thought this was a contamination. Echocardiogram did not show any abnormalities suspicious for endocarditis. ID recommended a short course of Ceftin and patient was discharged to [facility] for subacute rehab. Patient was subsequently admitted for A. fib RVR and aspiration pneumonia. He was stabilized and discharged back to [facility] for subacute rehab. Upon his return, patient has been more weak, less involved in his care then prior admissions yesterday, patient was transferred to [facility] emergency center due to altered mental status and hypotension. Patient was found to be afebrile, heart rate 122, respiratory rate 26, blood pressure 89/59, pulse ox 91% on nonrebreather. EKG was atrial fibrillation with RVR with a ventricular rate of 123. WBC 5.2, hemoglobin 10.5, platelet count 152. Sodium 160, potassium 5, chloride 125, CO2 18, anion gap 17, BUN 176, creatinine 4.9. Blood sugar 515. Lactic acid 3.2. Calcium 8.9. Magnesium 3.1. Total bilirubin 0.5, AST 13 ALT 15, alkaline phosphatase 79. Urinalysis cloudy, glucose 3+, blood small, leukoesterase large, WBCs 103. Acetone positive Chest x-ray revealed infiltrate right lower lung CAT scan of the abdomen and pelvis without contrast revealed no evidence of retroperitoneal hematoma. Bibasilar pneumonia, correlate for aspiration. Correlate for hemorrhagic material within the urinary bladder. Urinary bladder wall thickening. CAT scan of the brain revealed age-related atrophy and chronic small vessel ischemic change without acute intracranial process. Stable chronic right sided subdural collection. No acute intracranial hemorrhage. Patient was admitted into intensive care unit, consult with nephrology and scale tester.. 03/04: [facility]. He had an NG tube placed over the weekend and receiving Jevity at 40 ML's poor hour +300 ML's of water every 6 hours. Patient is on Unasyn for aspiration pneumonia. Patient is followed by pulmonary medicine, infectious disease and nephrology. Blood work today reveals WBC 6.2, hemoglobin 8.1 and platelet count of 80. Sodium 149, potassium 4.1, chloride 117, CO2 22, BUN 103 and creatinine 3.2. Capillary blood glucose running between 214 and 284. Urine culture was finalized with Enterococcus faecalis. IV fluids have been switched to D5W. Patient will be started on Levemir 15 units at bedtime, scheduled NovoLog 5 units every 6 hours and continu e NovoLog scale. 03/05: Patient is slightly more alert today. He has been afebrile, heart rate 109, blood pressure 118/79, pulse ox 97% on 4 L nasal cannula. Repeat blood work reveals BUN 98 and creatinine 2.47, chloride 117, potassium 4.6. Capillary blood glucose running between 155 and 172. Patient is followed by pulmonary medicine, nephrology. Patient is continued on NG tube feedings with Jevity and free water flushes. 03/06: Patient has been evaluated by speech therapy at the bedside and has failed, worse than last week. Patient scheduled for modified barium swallow for tomorrow but suspect he most likely will require PEG tube placement. Dr. Cazares is making another attempt to contact patient's son. Patient has been afebrile, heart rate 97, blood pressure 151/82, pulse ox 99% on 4 L nasal cannula. Capillary blood glucose running between 134 and 229. Repeat blood work ordered for tomorrow. The patient is currently on feeding tubes at goal along with free water flushes. Ramirez catheter remains in place. He does have chronic Ramirez. 03/07: patient remains lethargic. He underwent modified barium swallow today and failed. Family will need to determine if they wish to go with a PEG tube or make patient comfort care. patient has had 2 NG tube removed by patient. Patient received Lasix yesterday forfluid overload and has had good urine output. Less edema today. Repeat blood work reveals WBC 10.9, hemoglobin 7.6 and platelet count 71. BUN 72 creatinine 2.4. With blood glucose this morning was 60. AST 66, ALT 51, alkaline phosphatase 70. 03/08: Patient is seen and followed by pulmonary medicine. Patient has now removed NG tube twice. Attempts have been made to contact patient's son regarding decisions regarding a PEG tube placement, comfort care and CODE ST ATUS. Repeat nursing updated that if family comes in in the afternoons or evenings, please contact Dr. Cazares to speak with the family regarding these issues. Patient is currently only receiving IV and subcu medications. Repeat chest x-ray 03/07 reveals pulmonary edema consistent with heart failure which is increased compared to recent exam. scheduled NovoLog and Levemir discontinued. Patient continues to have occasional cough, generalized significant weakness and mental status changes. He has been afebrile, heart rate 82, blood pressure 114/69, pulse ox 92% on 2 L nasal cannula. 03/09: Dr. Cazares was in contact with patient's and his son regarding patient's condition and prognoses as well as plan of care, they will decide regarding PEG tube placement but at this time, family have not made a decision. Nephrology has recommended IV fluids LR at 75 mL an hour, avoid hypoglycemic episodes, continue Aranesp and monitor lab work. Patient continues to be nothing by mouth. 03/10: Patient is laying down in bed he appears to be about the same he is not improving at all at this point in time, I had a conversation with his as well as his son recommended hospice/palliative care, they have not made a final decision, and the family elected to go for a full code patient will need to have a PEG tube placement and after that he would be transferred back to [facility] on the second [place]. Patient has been on IV lactated Ringer, his sodium and potassium is good his creatinine still above the baseline his baseline creatinine is 1.6 currently 2.3, patient did not have any episode of hypoglycemia last night, patient is not able to swallow anything at this time, he had failed modified barium swallow, patient will need PEG tube if family elected for full code. 03/11: The [facility]. Contacted patient's son Yamil and family want to proceed with PEG tube insertion and feedings. Consult placed with Dr. Talbert and will see the patient tomorrow. However due to low platelet count, doubt that PEG tube can be placed. Patient is continued on IV antibiotics with Unasyn for urinary tract infection. No respiratory distress noted. Patient is been afebrile, heart rate 65, blood pressure 154/76, pulse ox 94% on 4 L nasal cannula. Repeat blood work reveals WBC 5.2, hemoglobin 7.4 platelet count 42. Sodium 151, potassium 4.6, chloride 112, CO2 is 23, BUN 35, creatinine 2.0. Glucose 116. Capillary blood glucose running between 98 and 110. Total bilirubin 0.3. Liver function tests are normal. 03/12: Patient we have agreed to move forward with PEG tube placement however due to thrombocytopenia, patient is not a surgical candidate. However, patient did well with a bedside evaluation with speech today and will undergo modified barium swallow and hopefully be able to start some oral feedings. Patient has been hemodynamically stable. Blood sugars are stable. Repeat BUN 29 creatinine 1.9. Patient is continued on Unasyn per Dr. Arias and he is also on D5W at 75 mL per hour. 03/13: Fortunately, patient underwent modified barium swallow yesterday and patient was cleared by speech therapy to start pured diet with thickened liquids. Patient has been able to tolerate diet and ate full breakfast this morning and also did well at lunch. His repeat blood work reveals sodium 140, potassium 3.8, chloride 109, CO2 29, BUN 27 creatinine 1.79. Expect the blood sugars will be rising with intake of food. Nephrology recommends continuing half normal saline at 50 mL per hour and monitor renal function and urine output, replace magnesium. We'll ask for therapies to come back and evaluate him now that he is more alert and can purchase of 8. 03/14: Patient has been afebrile, heart rate 92, blood pressure 133/77, pulse ox 95% on 4 L nasal cannula. Capillary blood glucose running between 132 and 153. Repeat chest x-ray reveals diffuse interstitial opacities and patchy mid and lower lung infiltrates persist, similar to slightly increased from prior exam. Pulmonary medicine has signed off. Dr. Arias has recommended Augmentin to completed course of antibiotics. 03/15: Patient is found to be awake and alert today. He is able to answer questions appropriately. He can remember that he had meals today and also that he had a bowel movement yesterday. He denies any shortness of breath and no issues with pain control. According to the patient's aide, he did eat about 75% of his meals today. Patient has been afebrile, heart rate 56, blood pressure 118/65, pulse ox 96% on 4 L nasal cannula. Patient will be discharged to [facility] today in stable condition. DISCHARGE DIAGNOSES 1. Acute sepsis and septic shock secondary to aspiration pneumonia and Ramirez catheter associated urinary tract infection. 2. Acute kidney injury secondary to hypovolemia and infection. 3. Hypernatremia due to poor oral water intake. 4. DKA, diabetes mellitus type 2. patient now having episodes of hypoglycemia. 5. Metabolic acidosis secondary to acute kidney injury and DKA. 6. Anemia of chronic disease. 7. A. fib with RVR. 8. Chronic atrial fibrillation not on anticoagulation due to retroperitoneal hematoma. 9. Metabolic encephalopathy secondary to pneumonia, UTI and sepsis. 10. COPD without exacerbation. 11. Chronic hypoxic respiratory failure. 12. Diabetes mellitus type 2. 13. Benign prostatic hypertrophy with urinary retention and chronic Ramirez catheter. 14. Chronic kidney disease stage III with history of left-sided nephrectomy. 15. History of large retroperitoneal hematoma with acute blood loss, stable, 04/2021. 16. Chronic gout. 17. Recurrent depression. 18. Generalized anxiety disorder. 19. Pressure ulcer coccyx stage III and pressure ulcer penis stage II, scrotum pressure ulcer stage II, present on admission. 20. Severe protein calorie malnutrition. Patient showed improvement on modified barium swallow 03/12 and started on pured diet with thickened liquids. 21. Thrombocytopenia, chronic. DISCHARGE PLAN Return to [facility] Greater than 35 minutes was utilized and coordinating patient's discharge. Impression and plan of care have been directed as dictated by the signing physician. Cindy Tobias nurse practitioner acting as scribe for signing physician. Patient Condition at Discharge: Stable Plan - Discharge Summary Discharge Rx Participant: No New Discharge Prescriptions: New Darbepoetin Ten [Aranesp] 40 mcg SQ Q7D #4 each Amoxic-Pot Clav 500-125 mg [Augmentin 500-125 mg] 1 tab PO Q12HR #14 tab Metoprolol Tartrate [Lopressor] 12.5 mg PO BID tab Continue allopurinoL [Zyloprim] 100 mg PO DAILY@0900 Sertraline [Zoloft] 50 mg PO HS@2100 Pioglitazone [Actos] 15 mg PO DAILY@0600 Magnesium Hydroxide [Milk of Magnesia] 2,400 mg PO ONCE PRN PRN Reason: Constipation bisacodyL [Dulcolax] 10 mg RECTAL DAILY PRN PRN Reason: Constipation Omeprazole 20 mg PO DAILY@0600 Multivitamins, Thera Liquid [Theragran Liquid (formulary)] 5 ml PO DAILY@0900 Ferrous Sulfate 330 mg PO DAILY@0900 Acetaminophen [Tylenol] 650 mg PO Q4H PRN PRN Reason: GENERAL DISCOMFORT guaiFENesin [guaiFENesin Oral Solution] 100 mg PO Q6H PRN PRN Reason: Cough Nitroglycerin Sl Tabs [Nitrostat] 0.4 mg SUBLINGUAL Q5M PRN PRN Reason: Chest Pain Na Phos,M-B/Na Phos,Di-Ba [Fleet Adult] 118 ml RECTAL DAILY PRN PRN Reason: Constipation Discontinued Tolterodine Tartrate [Detrol LA] 4 mg PO HS@2100 methylPREDNISolone Dose Pack [Medrol Dose Pack] See Taper PO DAILY Metoprolol Succinate (ER) [Toprol Xl] 25 mg PO HS@2100 Levofloxacin [Levaquin] 250 mg PO HS@2100 Discharge Medication List Sertraline [Zoloft] 50 mg PO HS@2100 01/25/20 [History] allopurinoL [Zyloprim] 100 mg PO DAILY@0900 01/25/20 [History] Pioglitazone [Actos] 15 mg PO DAILY@0605/13/21 [History] Acetaminophen [Tylenol] 650 mg PO Q4H PRN 12/11/21 [History] Ferrous Sulfate 330 mg PO DAILY@0900 02/28/22 [History] Magnesium Hydroxide [Milk of Magnesia] 2,400 mg PO ONCE PRN 02/28/22 [History] Multivitamins, Thera Liquid [Theragran Liquid (formulary)] 5 ml PO DAILY@0900 02/28/22 [History] Na Phos,M-B/Na Phos,Di-Ba [Fleet Adult] 118 ml RECTAL DAILY PRN 02/28/22 [History] Nitroglycerin Sl Tabs [Nitrostat] 0.4 mg SUBLINGUAL Q5M PRN 02/28/22 [History] Omeprazole 20 mg PO DAILY@0600 02/28/22 [History] bisacodyL [Dulcolax] 10 mg RECTAL DAILY PRN 02/28/22 [History] guaiFENesin [guaiFENesin Oral Solution] 100 mg PO Q6H PRN 02/28/22 [History] Amoxic-Pot Clav 500-125 mg [Augmentin 500-125 mg] 1 tab PO Q12HR #14 tab 03/14/22 [Rx] Darbepoetin Ten [Aranesp] 40 mcg SQ Q7D #4 each 03/14/22 [Rx] Metoprolol Tartrate [Lopressor] 12.5 mg PO BID tab 03/14/22 [Rx] Follow up Appointment(s)/Referral(s): [facility], [NON-STAFF] - As Needed Wilfred Cazares MD [Primary Care Provider] - 1 Week (at [facility]) Ambulatory/Diagnostic Orders: Basic Metabolic Panel [LAB.AMB] Location: None Selected Complete Blood Count w/diff [LAB.AMB] Location: None Selected Patient Instructions/Handouts: Acute Kidney Injury (DC), Sepsis (DC), Acute Respiratory Failure (GEN) Discharge Disposition: TRANSFER TO SNF/ECF
[2022-03-14 07:46] LABS: African American GFR (CKD) 37 (>60 ml/min/1.73 sqM); Anion Gap 4 mmol/L; Blood Urea Nitrogen 25 mg/dL (9-20); Calcium 7.2 mg/dL (8.4-10.2); Carbon Dioxide 27 mmol/L (22-30); Chloride 106 mmol/L (98-107); Glucose 122 mg/dL (74-99); Magnesium 1.8 mg/dL (1.6-2.3); Non-African American GFR(CKD) 32 (>60 ml/min/1.73 sqM); Potassium 3.8 mmol/L (3.5-5.1); Sodium 137 mmol/L (137-145)
[2022-03-14] MEDS: METOPROLOL TARTRATE 12.5 MG TAB PO SCH ×2 (09:55→21:12)
[2022-03-14] MEDS: allopurinoL 100 MG TAB PO SCH (09:55)
[2022-03-14] MEDS: FERROUS SULFATE 325 MG TAB PO SCH (09:55)
[2022-03-14] MEDS: AMPICILLIN-SULBACTAM 3 GM in SODIUM CHLORIDE 0.9% 100 ML IVPB SCH ×2 (10:34→21:12)
[2022-03-14] MEDS: PANTOPRAZOLE 40 MG/10 ML VIAL IVP SCH (10:34)
[2022-03-14 11:34] LABS: Glucose,Whole Blood 180 mg/dL (70-110)
--- NOTE | 2022-03-14 13:33 | P.PN ---
Subjective Patient is seen for follow-up for acute kidney injury. He also has underlying hypernatremia for which patient was on D5W and currently on half normal saline at 50 mL an hour. There has been concern for aspiration and patient had been on temporary tube feedings. This morning he is noted to have significant cough after taking medications with applesauce. Sodium at 137 today. Serum creatinine staying fairly stable at about 1.8- 1.9 mg/dL. Serum creatinine had peaked at 4.9 on initial admission Objective - Vital Signs Vital signs: Vital Signs Temp 99.1 F 03/14/22 08:21 Pulse 96 03/14/22 08:21 Resp 18 03/14/22 08:21 BP 130/20 03/14/22 08:21 Pulse Ox 95 03/14/22 06:46 FiO2 Intake & Output 03/13/22 03/14/22 03/14/22 18:59 06:59 18:59 Intake Total 600 Output Total 800 600 Balance -200 -600 Weight 86 kg 92.5 kg Intake: Oral 600 Output: Urine 800 600 Other: Voiding Method Indwelling Catheter # Bowel Movements 1 1 - Exam Awake, comfortable, no acute distress Patient has been coughing Examination of the heart S1 and S2 Examination of the lungs bilateral breath sounds are heard Abdomen is soft nontender Examination of the lower extremity shows no evidence of edema Patient does not communicate much - Labs CBC & Chem 7: 03/12/22 06:32 03/14/22 07:03 Labs: Abnormal Lab Results - Last 24 Hours (Table) 03/13/22 03/13/22 03/14/22 Range/Units 17:30 20:55 01:19 BUN (9-20) mg/dL Creatinine (0.66-1.25) mg/dL Glucose (74-99) mg/dL POC Glucose (mg/dL) 132 H 153 H 141 H (70-110) mg/dL Calcium (8.4-10.2) mg/dL 03/14/22 03/14/22 03/14/22 Range/Units 05:33 07:03 07:11 BUN 25 H (9-20) mg/dL Creatinine 1.85 H (0.66-1.25) mg/dL Glucose 122 H (74-99) mg/dL POC Glucose (mg/dL) 132 H 135 H (70-110) mg/dL Calcium 7.2 L (8.4-10.2) mg/dL 03/14/22 Range/Units 11:32 BUN (9-20) mg/dL Creatinine (0.66-1.25) mg/dL Glucose (74-99) mg/dL POC Glucose (mg/dL) 180 H (70-110) mg/dL Calcium (8.4-10.2) mg/dL Assessment and Plan Assessment: 1. Hyponatremia , improved with D5W, currently on half normal saline at 50 mL an hour 2. Chronic kidney disease stage III associated with solitary right kidney 3. Status post left nephrectomy 4. DKA status post insulin drip 5. Metabolic acidosis associated with acute kidney injury in DKA 6. UTI and possible pneumonia maintained on antibiotics. Urine culture positive for group D enterococcus. Patient is being followed by ID 7. Acute kidney injury, ATN currently improved and renal function fairly stable for the last 4-5 days with creatinine staying about 1.8-2 mg/dL Plan: Continue current IV fluids Continue to monitor for aspiration.
--- NOTE | 2022-03-14 14:43 | P.PN ---
Subjective Progress Note Date: 03/14/22 HISTORY OF PRESENT ILLNESS This is an 87-year-old male patient of Dr. Hurd with past medical history of Parkinsons disease, Alzheimers dementia, diabetes mellitus type 2, chronic atrial fibrillation not on anticoagulation due to retroperitoneal hematoma, history of pneumonia, benign prostatic hypertrophy, chronic kidney disease with history of left-sided nephrectomy, history of large retroperitoneal hematoma 04/2021, history of aspiration pneumonia. Patient was hospitalized at [facility] due to failure to thrive increasing weakness and difficulty ambulatingfor 2 weeks and progressively worsening. Patient was treated for UTI and streptococcal bacteremia seen by infectious disease thought this was a contamination. Echocardiogram did not show any abnormalities stafford spicious for endocarditis. ID recommended a short course of Ceftin and patient was discharged to [facility] for subacute rehab. Patient was subsequently admitted for A. fib RVR and aspiration pneumonia. He was stabilized and discharged back to [facility] for subacute rehab. Upon his return, patient has been more weak, less involved in his care then prior admissions yesterday, patient was transferred to [facility] emergency center due to altered mental status and hypotension. Patient was found to be afebrile, heart rate 122, respiratory rate 26, blood pressure 89/59, pulse ox 91% on nonrebreather. EKG was atrial fibrillation with RVR with a ventricular rate of 123. WBC 5.2, hemoglobin 10.5, platelet count 152. Sodium 160, potassium 5, chloride 125, CO2 18, anion gap 17, BUN 176, creatinine 4.9. Blood sugar 515. Lactic acid 3.2. Calcium 8.9. Magnesium 3.1. Total bilirubin 0.5, AST 13 ALT 15, alkaline phosphatase 79. Urinalysis cloudy, glucose 3+, blood small, leukoe sterase large, WBCs 103. Acetone positive Chest x-ray revealed infiltrate right lower lung CAT scan of the abdomen and pelvis without contrast revealed no evidence of retroperitoneal hematoma. Bibasilar pneumonia, correlate for aspiration. Correlate for hemorrhagic material within the urinary bladder. Urinary bladder wall thickening. CAT scan of the brain revealed age-related atrophy and chronic small vessel ischemic change without acute intracranial process. Stable chronic right sided subdural collection. No acute intracranial hemorrhage. Patient was admitted into intensive care unit, consult with nephrology and auto painter.. 03/04: Patient is seen on the [facility] floor. He had an NG tube placed over the weekend and receiving Jevity at 40 ML's poor hour +300 ML's of water every 6 ho urs. Patient is on Unasyn for aspiration pneumonia. Patient is followed by pulmonary medicine, infectious disease and nephrology. Blood work today reveals WBC 6.2, hemoglobin 8.1 and platelet count of 80. Sodium 149, potassium 4.1, chloride 117, CO2 22, BUN 103 and creatinine 3.2. Capillary blood glucose running between 214 and 284. Urine culture was finalized with Enterococcus faecalis. IV fluids have been switched to D5W. Patient will be started on Levemir 15 units at bedtime, scheduled NovoLog 5 units every 6 hours and continue NovoLog scale. 03/05: Patient is slightly more alert today. He has been afebrile, heart rate 109, blood pressure 118/79, pulse ox 97% on 4 L nasal cannula. Repeat blood work reveals BUN 98 and creatinine 2.47, chloride 117, potassium 4.6. Capillary blood glucose running between 155 and 172. Patient is followed by pulmonary medicine, nephrology. Patient is continued on NG tube feedings with Jevity and free water flushes. 03/06: Patient has been evaluated by speech therapy at the bedside and has failed, worse than last week. Patient scheduled for modified barium swallow for tomorrow but suspect he most likely will require PEG tube placement. Dr. Cazares is making another attempt to contact patient's son. Patient has been afebrile, heart rate 97, blood pressure 151/82, pulse ox 99% on 4 L nasal cannula. Capillary blood glucose running between 134 and 229. Repeat blood work ordered for tomorrow. The patient is currently on feeding tubes at goal along with free water flushes. Ramirez catheter remains in place. He does have chronic Ramirez. 03/07: patient remains lethargic. He underwent modified barium swallow today and failed. Family will need to determine if they wish to go with a PEG tube or make patient comfort care. patient has had 2 NG tube removed by patient. Patient received Lasix yesterday forfluid overload and has had good urine output. Less edema today. Repeat blood work reveals WBC 10.9, hemoglobin 7.6 and platelet count 71. BUN 72 creatinine 2.4. With blood glucose this morning was 60. AST 66, ALT 51, alkaline phosphatase 70. 7/15: Patient is seen and followed by pulmonary medicine. Patient has now removed NG tube twice. Attempts have been made to contact patient's son regarding decisions regarding a PEG tube placement, comfort care and CODE STATUS. Repeat nursing updated that if family comes in in the afternoons or evenings, please contact Dr. Cazares to speak with the family regarding these issues. Patient is currently only receiving IV and subcu medications. Repeat chest x-ray 03/07 reveals pulmonary edema consistent with heart failure which is increased compared to recent exam. scheduled NovoLog and Levemir discontinued. Patient continues to have occasional cough, generalized significant weakness and mental status changes. He has been afebrile, heart rate 82, blood pressure 114/69, pulse ox 92% on 2 L nasal cannula. 03/09: Dr. Cazares was in contact with patient's and his son regarding patient's condition and prognoses as well as plan of care, they will decide regarding PEG tube placement but at this time, family have not made a decision. Nephrology has recommended IV fluids LR at 75 mL an hour, avoid hypoglycemic episodes, continue Aranesp and monitor lab work. Patient continues to be nothing by mouth. 03/10: Patient is laying down in bed he appears to be about the same he is not improving at all at this point in time, I had a conversation with his as well as his son recommended hospice/palliative care, they have not made a final decision, and the family elected to go for a full code patient will need to have a PEG tube placement and after that he would be transferred back to [facility] on the [place]. Patient has been on IV lactated Ringer, his sodium and potassium is good his creatinine still above the baseline his baseline creatinine is 1.6 currently 2.3, patient did not have any episode of hypoglycemia last night, patient is not able to swallow anything at this time, he had failed modified barium swallow, patient will need PEG tube if family elected for full code. 03/11: The patient is seen today on the [facility] floor. Contacted patient's son Yamil and family want to proceed with PEG tube insertion and feedings. Consult placed with Dr. Talbert and will see the patient tomorrow. However due to low platelet count, doubt that PEG tube can be placed. Patient is continued on IV antibiotics with Unasyn for urinary tract infection. No respiratory distress noted. Patient is been afebrile, heart rate 65, blood pressure 154/76, pulse ox 94% on 4 L nasal cannula. Repeat blood work reveals WBC 5.2, hemoglobin 7.4 platelet count 42. Sodium 151, potassium 4.6, chloride 112, CO2 is 23, BUN 35, creatinine 2.0. Glucose 116. Capillary blood glucose running between 98 and 110. Total bilirubin 0.3. Liver function tests are normal. 03/12: Patient we have agreed to move forward with PEG tube placement however due to thrombocytopenia, patient is not a surgical candidate. However, patient did well with a bedside evaluation with speech today and will undergo modified barium swallow and hopefully be able to start some oral feedings. Patient has been hemodynamically stable. Blood sugars are stable. Repeat BUN 29 creatinine 1.9. Patient is continued on Unasyn per Dr. Arias and he is also on D5W at 75 mL per hour. 03/13: Fortunately, patient underwent modified barium swallow yesterday and patient was cleared by speech therapy to start pured diet with thickened liquids. Patient has been able to tolerate diet and ate full breakfast this morning and also did well at lunch. His repeat blood work reveals sodium 140, potassium 3.8, chloride 109, CO2 29, BUN 27 creatinine 1.79. Expect the blood sugars will be rising with intake of food. Nephrology recommends continuing half normal saline at 50 mL per hour and monitor renal function and urine output, replace magnesium. We'll ask for therapies to come back and evaluate him now that he is more alert and can purchase of 8. 03/14: Patient is quite lethargic today. He is opening his eyes only to verbal stimuli. Patient apparently was more alert this morning but was not eating very much. Patient apparently has not been sleeping for a couple of days. Patient has been afebrile, heart rate 92, blood pressure 133/77, pulse ox 95% on 4 L nasal cannula. Capillary blood glucose running between 132 and 153. Repeat chest x-ray reveals diffuse interstitial opacities and patchy mid and lower lung infiltrates persist, similar to slightly increased from prior exam. Pulmonary medicine has signed off. Dr. Arias has recommended Augmentin to completed course of antibiotics. Plan to monitor patient overnight and possible discharge to [facility] tomorrow REVIEW OF SYSTEMS Constitutional: No fever, no chills, no night sweats. No weight change. Noted weakness, noted fatigue noted lethargy. Noted daytime sleepiness. EENT: No headache. No blurred vision or double vision, no loss of vision. No loss of Hearing, no ringingin the ears, no dizziness. No nasal drainage or congestion. No epistaxis. No sore throat. Lungs: No complaints of shortness of breath, + cough-appears improved, no sputum production. No wheezing. Cardiovascular: No chest pain, no lower extremity edema. No palpitations. No paroxysmal nocturnal dyspnea. No orthopnea. No lightheadedness or dizziness. No syncopal episodes. Abdominal: No abdominal pain. No nausea, vomiting. No diarrhea. No constipation. No bloody or tarry stools. No loss of appetite. Genitourinary: No dysuria, increased frequency, urgency. No urinary retention. Musculoskeletal: No myalgias. No muscle weakness, reported gait dysfunction, no frequent falls. No back pain. No neck pain. Integumentary: No wounds, no lesions. No rash or pruritus. No unusual bruising. No change in hair or nails. Neurologic: No aphasia. No facial droop. Noted change in mentation continues. No head injury. No headache. No paralysis. No paresthesia. Psychiatric: Presumed depression. No anxiety. No mood swings. Endocrine: No abnormal blood sugars. No weight change. No excessive sweating or thirst. PHYSICAL EXAMINATION Gen: This is an 87-year-old male. He is resting in bed and appears to be comfortable. No respiratory distress is noted. HEENT: Head is atraumatic, normocephalic. Pupils equal, round. Sclerae is anicteric. NECK: Supple. No JVD. No lymphadenopathy. No thyromegaly. LUNGS: Decreased breath sounds bilaterally with a few scattered rhonchi. No intercostal retractions. HEART: Irregular rate and rhythm. 2/6 systolic murmur. ABDOMEN: Soft. Bowel sounds are present. No masses. No tenderness. Ramirez draining vincenzo urine with seiment. EXTREMITIES: No pedal edema. No calf tenderness. NEUROLOGICAL: Patient is lethargic, generalized weakness. ASSESSMENT AND PLAN 1. Acute sepsis and septic shock secondary to aspiration pneumonia and Ramirez catheter associated urinary tract infection. Continue patient management on the [facility] unit, pulmonary consult appreciated, patient is on Unasyn per infectious disease. Urine culture positive for Enterococcus faecalis. Plan for oral Augmentin at the time of discharge. 2. Acute kidney injury secondary to hypovolemia and infection. Consult with nephrology appreciated. Patient is half normal saline at 50 mL per hour. 3. Hypernatremia due to poor oral water intake. 4. DKA, diabetes mellitus type 2. patient now having episodes of hypoglycemia. Continue NovoLog scale only. 5. Metabolic acidosis secondary to acute kidney injury and DKA. 6. Anemia of chronic disease. continue Aranesp 40 g subcu every 7 days, ferrous sulfate 325 mg daily. 7. A. fib with RVR. Patient started on Lopressor 12.5 mg twice daily No plan to start on anticoagulation due to previous bleeding. 8. Chronic atrial fibrillation not on anticoagulation due to retroperitoneal hematoma. 9. Metabolic encephalopathy secondary to pneumonia, UTI and sepsis. Continue treatment as above. 10. COPD without exacerbation. 11. Chronic hypoxic respiratory failure recently weaned off oxygen. 12. Diabetes mellitus type 2. NovoLog scale. 13. Benign prostatic hypertrophy with urinary retention and chronic Ramirez catheter. 14. Chronic kidney disease stage III with history of left-sided nephrectomy. Avoid nephrotoxic agents. 15. History of large retroperitoneal hematoma with acute blood loss, stable, 04/2021. 16. Chronic gout. Continue allopurinol 100 mg daily. 17. Recurrent depression. Resume Zoloft 50 mg at bedtime. 18. Generalized anxiety disorder. 19. Pressure ulcer coccyx and pressure ulcer penis, present on admission. Continue local wound care and offloading. 20. Failed swallow evaluation and severe protein calorie malnutrition. Patient showed improvement on modified barium swallow 03/12 and started on pured diet with thickened liquids. Plan for PEG tube is placed on hold. 21. GI prophylaxis. Protonix 40 mg IV push daily. 22. DVT prophylaxis. SCDs and JARRET hose. 23. Thrombocytopenia, chronic. CODE STATUS: Full code. Very poor prognosis DISCHARGE PLAN Return to [facility] on Friday Impression and plan of care have been directed as dictated by the signing physician. Cindy Tobias nurse practitioner acting as scribe for signing physician. Objective - Vital Signs Vital signs: Vital Signs Temp 99.1 F 03/14/22 08:21 Pulse 96 03/14/22 08:21 Resp 18 03/14/22 08:21 BP 130/20 03/14/22 08:21 Pulse Ox 95 03/14/22 06:46 FiO2 Intake & Output 03/13/22 03/14/22 03/14/22 18:59 06:59 18:59 Intake Total 600 Output Total 800 600 Balance -200 -600 Weight 86 kg 92.5 kg Intake: Oral 600 Output: Urine 800 600 Other: Voiding Method Indwelling Catheter # Bowel Movements 1 1 - Labs CBC & Chem 7: 03/12/22 06:32 03/14/22 07:03 Labs: Abnormal Lab Results - Last 24 Hours (Table) 03/13/22 03/13/22 03/14/22 Range/Units 17:30 20:55 01:19 BUN (9-20) mg/dL Creatinine (0.66-1.25) mg/dL Glucose (74-99) mg/dL POC Glucose (mg/dL) 132 H 153 H 141 H (70-110) mg/dL Calcium (8.4-10.2) mg/dL 03/14/22 03/14/22 03/14/22 Range/Units 05:33 07:03 07:11 BUN 25 H (9-20) mg/dL Creatinine 1.85 H (0.66-1.25) mg/dL Glucose 122 H (74-99) mg/dL POC Glucose (mg/dL) 132 H 135 H (70-110) mg/dL Calcium 7.2 L (8.4-10.2) mg/dL 03/14/22 Range/Units 11:32 BUN (9-20) mg/dL Creatinine (0.66-1.25) mg/dL Glucose (74-99) mg/dL POC Glucose (mg/dL) 180 H (70-110) mg/dL Calcium (8.4-10.2) mg/dL
[2022-03-14 16:36] LABS: Glucose,Whole Blood 187 mg/dL (70-110)
[2022-03-14 21:05] LABS: Glucose,Whole Blood 271 mg/dL (70-110)
[2022-03-14] MEDS: SERTRALINE 50 MG TAB PO SCH (21:12)
[2022-03-15 00:33] LABS: Glucose,Whole Blood 235 mg/dL (70-110)
[2022-03-15] MEDS: INSULIN ASPART (NovoLOG) 100 UNIT/ML VIAL SQ SCH ×3 (00:34→11:45)
[2022-03-15 06:06] LABS: Glucose,Whole Blood 145 mg/dL (70-110)
[2022-03-15] MEDS: SODIUM CHLORIDE 0.45% 1,000 ML IV SCH (06:08)
[2022-03-15] MEDS: METOPROLOL TARTRATE 12.5 MG TAB PO SCH (09:08)
[2022-03-15] MEDS: allopurinoL 100 MG TAB PO SCH (09:08)
[2022-03-15] MEDS: PANTOPRAZOLE 40 MG/10 ML VIAL IVP SCH (09:09)
[2022-03-15] MEDS: FERROUS SULFATE 325 MG TAB PO SCH (09:09)
--- NOTE | 2022-03-15 10:42 | P.PN ---
Subjective Patient is seen for follow-up for acute kidney injury. He also has underlying hypernatremia for which patient was on D5W and currently on half normal saline at 50 mL an hour. There has been concern for aspiration and patient had been on temporary tube feedings. This morning he is noted to have significant cough after taking medications with applesauce. Sodium at 137 today. Serum creatinine staying fairly stable at about 1.8- 1.9 mg/dL. Serum creatinine had peaked at 4.9 on initial admission Objective - Vital Signs Vital signs: Vital Signs Temp 97.7 F 03/15/22 07:54 Pulse 57 L 03/15/22 07:54 Resp 16 03/15/22 07:54 BP 118/65 03/15/22 07:54 Pulse Ox 96 03/15/22 07:54 FiO2 Intake & Output 03/14/22 03/15/22 03/15/22 18:59 06:59 18:59 Output Total 500 250 Balance -500 -250 Weight 88.5 kg Output: Urine 500 250 Other: Voiding Method Indwelling Catheter - Exam Awake, comfortable, no acute distress Patient has been coughing Examination of the heart S1 and S2 Examination of the lungs bilateral breath sounds are heard Abdomen is soft nontender Examination of the lower extremity shows no evidence of edema Patient does not communicate much - Labs CBC & Chem 7: 03/12/22 06:32 03/14/22 07:03 Labs: Abnormal Lab Results - Last 24 Hours (Table) 03/14/22 03/14/22 03/14/22 Range/Units 11:32 16:30 21:03 POC Glucose (mg/dL) 180 H 187 H 271 H (70-110) mg/dL 03/15/22 03/15/22 Range/Units 00:31 06:05 POC Glucose (mg/dL) 235 H 145 H (70-110) mg/dL Assessment and Plan Assessment: 1. Hyponatremia , improved with D5W, currently on half normal saline at 50 mL an hour 2. Chronic kidney disease stage III associated with solitary right kidney 3. Status post left nephrectomy 4. DKA status post insulin drip 5. Metabolic acidosis associated with acute kidney injury in DKA 6. UTI and possible pneumonia maintained on antibiotics. Urine culture positive for group D enterococcus. Patient is being followed by ID 7. Acute kidney injury, ATN currently improved and renal function fairly stable for the last 4-5 days with creatinine staying about 1.8-2 mg/dL Plan: Continue half-normal saline Repeat labs periodically
[2022-03-15 11:37] LABS: Glucose,Whole Blood 129 mg/dL (70-110)
[2022-03-15 12:08] VITALS: BMI 29.6
[2022-03-15 14:06] VITALS: BP 90/45; PULSE 54; RESP 17; TEMP 97.8
[2022-03-15 17:46] LABS: Glucose,Whole Blood 120 mg/dL (70-110)
--- NOTE | 2022-03-22 14:30 | P.PN ---
Subjective Progress Note Date: 03/12/22 Principal diagnosis: Sepsis UTI/aspiration pneumonia Patient is an 87 year old male with multiple comorbidities who was sent to the ER from care home for a blood pressure and the patient was noticed to be lethargic and was concern for possible right lower lobe aspiration pneumonia as well as a UTI. On today's evaluation of 03/12/2022, The patient continues to be afebrile, the patient is breathing comfortably on 4 L nasal cannula oxygen, patient denies any chest pain , patient cough is decreased intensity and no sputum production no abdominal pain no diarrhea Objective - Vital Signs Vital signs: Vital Signs Temp 98.6 F 03/12/22 07:38 Pulse 67 03/12/22 07:38 Resp 18 03/12/22 07:38 BP 111/56 03/12/22 07:38 Pulse Ox 93 L 03/12/22 07:38 FiO2 Intake & Output 03/11/22 03/12/22 03/12/22 18:59 06:59 18:59 Intake Total 0 Output Total 800 325 600 Balance -800 -325 -600 Weight 87.5 kg 85.5 kg Intake: Oral 0 Output: Urine 800 325 600 Other: Voiding Method Indwelling Catheter Indwelling Catheter Indwelling Catheter - Exam GENERAL DESCRIPTION: An elderly male lying in bed in no distress RESPIRATORY SYSTEM: Unlabored breathing , decreased breath sounds at bases HEART: S1 S2 regular rate and rhythm , ABDOMEN: Soft , no tenderness EXTREMITIES: No edema feet - Labs CBC & Chem 7: 03/12/22 06:32 03/14/22 07:03 Labs: Abnormal Lab Results - Last 24 Hours (Table) 03/11/22 03/11/22 03/12/22 Range/Units 17:57 23:49 06:08 Sodium (135-145) mmol/L Chloride (96-109) mmol/L Anion Gap (10.00-18.00) mmol/L BUN (9.0-27.0) mg/dL Creatinine (0.6-1.5) mg/dL Est GFR (CKD-EPI)AfAm (60.0-200.0) Est GFR (CKD-EPI)NonAf (60.0-200.0) Glucose (70-110) mg/dL POC Glucose (mg/dL) 157 H 153 H 157 H (70-110) mg/dL Calcium (8.7-10.3) mg/dL Total Protein (6.2-8.2) g/dL Albumin (3.8-4.9) g/dL Albumin/Globulin Ratio (1.60-3.17) g/dL 03/12/22 Range/Units 06:32 Sodium 147 H (135-145) mmol/L Chloride 110 H (96-109) mmol/L Anion Gap 9.70 L (10.00-18.00) mmol/L BUN 29.2 H (9.0-27.0) mg/dL Creatinine 1.9 H (0.6-1.5) mg/dL Est GFR (CKD-EPI)AfAm 35.9 L (60.0-200.0) Est GFR (CKD-EPI)NonAf 31.0 L (60.0-200.0) Glucose 157 H (70-110) mg/dL POC Glucose (mg/dL) (70-110) mg/dL Calcium 7.5 L (8.7-10.3) mg/dL Total Protein 4.8 L (6.2-8.2) g/dL Albumin 2.2 L (3.8-4.9) g/dL Albumin/Globulin Ratio 0.85 L (1.60-3.17) g/dL Assessment and Plan (1) Pneumonia Status: Acute Code(s): J18.9 - PNEUMONIA, UNSPECIFIED ORGANISM SNOMED Code(s): 574097132 (2) UTI (urinary tract infection) Status: Acute Code(s): N39.0 - URINARY TRACT INFECTION, SITE NOT SPECIFIED SNOMED Code(s): 48918678 Plan: 1patient presented to hospital with weakness lethargy head this patient did have evidence of UTI and possible right-sided pneumonia in this patient being a care home resident will need to cover for resistant gram-negative with a likely pathogen. The patient urine however is currently showing enterococcus blood cultures have been negative so far sputum hasn't been collected 2 Patient slowly clinically improving and is covered with the Unasyn which will be continued while inpatient Time with Patient: Less than 30
--- NOTE | 2022-03-22 14:31 | P.PN ---
Subjective Progress Note Date: 03/13/22 Principal diagnosis: Sepsis UTI/aspiration pneumonia Patient is an 87 year old male with multiple comorbidities who was sent to the ER from skilled nursing for a blood pressure and the patient was noticed to be lethargic and was concern for possible right lower lobe aspiration pneumonia as well as a UTI. On today's evaluation of 03/13/2022, The patient is afebrile, the patient is breathing comfortably on 4 L nasal cannula oxygen, patient slightly more awake and alert today denies any chest pain , no worsening cough or sputum production no abdominal pain no diarrhea Objective - Vital Signs Vital signs: Vital Signs Temp 98.4 F 03/13/22 07:07 Pulse 71 03/13/22 07:07 Resp 17 03/13/22 07:07 BP 96/56 03/13/22 07:07 Pulse Ox 93 L 03/13/22 07:07 FiO2 Intake & Output 03/12/22 03/13/22 03/13/22 18:59 06:59 18:59 Intake Total 240 Output Total 875 300 Balance -875 -300 240 Weight 86 kg Intake: Oral 240 Output: Urine 875 300 Other: Voiding Method Indwelling Catheter Indwelling Catheter Indwelling Catheter # Bowel Movements 1 - Exam GENERAL DESCRIPTION: An elderly male lying in bed in no distress RESPIRATORY SYSTEM: Unlabored breathing , decreased breath sounds at bases HEART: S1 S2 regular rate and rhythm , ABDOMEN: Soft , no tenderness EXTREMITIES: No edema feet - Labs CBC & Chem 7: 03/12/22 06:32 03/14/22 07:03 Labs: Abnormal Lab Results - Last 24 Hours (Table) 03/12/22 03/12/22 03/13/22 Range/Units 17:00 21:09 06:19 Chloride (98-107) mmol/L BUN (9-20) mg/dL Creatinine (0.66-1.25) mg/dL Glucose (74-99) mg/dL POC Glucose (mg/dL) 125 H 121 H 154 H (70-110) mg/dL Calcium (8.4-10.2) mg/dL Magnesium (1.6-2.3) mg/dL 03/13/22 03/13/22 03/13/22 Range/Units 06:33 06:39 11:56 Chloride 109 H (98-107) mmol/L BUN 27 H (9-20) mg/dL Creatinine 1.79 H (0.66-1.25) mg/dL Glucose 151 H (74-99) mg/dL POC Glucose (mg/dL) 149 H 145 H (70-110) mg/dL Calcium 7.0 L (8.4-10.2) mg/dL Magnesium 1.5 L (1.6-2.3) mg/dL Assessment and Plan (1) Pneumonia Status: Acute Code(s): J18.9 - PNEUMONIA, UNSPECIFIED ORGANISM SNOMED Code(s): 803788333 (2) UTI (urinary tract infection) Status: Acute Code(s): N39.0 - URINARY TRACT INFECTION, SITE NOT SPECIFIED SNOMED Code(s): 85918404 Plan: 1patient presented to hospital with weakness lethargy head this patient did hav e evidence of UTI and possible right-sided pneumonia in this patient being a skilled nursing resident will need to cover for resistant gram-negative with a likely pathogen. The patient urine however is currently showing enterococcus blood cultures have been negative so far sputum hasn't been collected 2 Patient clinical condition remains to be stable and is currently being treated with the Unasyn which will be continued while inpatient Time with Patient: Less than 30
--- NOTE | 2022-03-22 14:32 | P.PN ---
Subjective Progress Note Date: 03/14/22 Principal diagnosis: Sepsis UTI/aspiration pneumonia Patient is an 87 year old male with multiple comorbidities who was sent to the ER from skilled nursing for a blood pressure and the patient was noticed to be lethargic and was concern for possible right lower lobe aspiration pneumonia as well as a UTI. On today's evaluation of 03/14/2022, The patient remains to be afebrile, the patient is breathing comfortably on 2 L nasal cannula oxygen, patient sleepy but arousable no distress no vomiting or diarrhea reported by the nursing staff Objective - Vital Signs Vital signs: Vital Signs Temp 97.6 F 03/14/22 14:39 Pulse 76 03/14/22 14:39 Resp 19 03/14/22 14:39 BP 118/66 03/14/22 14:39 Pulse Ox 96 03/14/22 14:39 FiO2 Intake & Output 03/13/22 03/14/22 03/14/22 18:59 06:59 18:59 Intake Total 600 Output Total 800 600 Balance -200 -600 Weight 86 kg 92.5 kg Intake: Oral 600 Output: Urine 800 600 Other: Voiding Method Indwelling Catheter # Bowel Movements 1 1 - Exam GENERAL DESCRIPTION: An elderly male lying in bed in no distress RESPIRATORY SYSTEM: Unlabored breathing , decreased breath sounds at bases HEART: S1 S2 regular rate and rhythm , ABDOMEN: Soft , no tenderness EXTREMITIES: No edema feet - Labs CBC & Chem 7: 03/12/22 06:32 03/14/22 07:03 Labs: Abnormal Lab Results - Last 24 Hours (Table) 03/13/22 03/13/22 03/14/22 Range/Units 17:30 20:55 01:19 BUN (9-20) mg/dL Creatinine (0.66-1.25) mg/dL Glucose (74-99) mg/dL POC Glucose (mg/dL) 132 H 153 H 141 H (70-110) mg/dL Calcium (8.4-10.2) mg/dL 03/14/22 03/14/22 03/14/22 Range/Units 05:33 07:03 07:11 BUN 25 H (9-20) mg/dL Creatinine 1.85 H (0.66-1.25) mg/dL Glucose 122 H (74-99) mg/dL POC Glucose (mg/dL) 132 H 135 H (70-110) mg/dL Calcium 7.2 L (8.4-10.2) mg/dL 03/14/22 Range/Units 11:32 BUN (9-20) mg/dL Creatinine (0.66-1.25) mg/dL Glucose (74-99) mg/dL POC Glucose (mg/dL) 180 H (70-110) mg/dL Calcium (8.4-10.2) mg/dL Assessment and Plan (1) Pneumonia Status: Acute Code(s): J18.9 - PNEUMONIA, UNSPECIFIED ORGANISM SNOMED Code(s): 544568791 (2) UTI (urinary tract infection) Status: Acute Code(s): N39.0 - URINARY TRACT INFECTION, SITE NOT SPECIFIED SNOMED Code(s): 86882687 Plan: 1patient presented to hospital with weakness lethargy head this patient did have evidence of UTI and possible right-sided pneumonia in this patient being a skilled nursing resident will need to cover for resistant gram-negative with a likely pathogen. The patient urine however is currently showing enterococcus blood cultures have been negative so far sputum hasn't been collected 2 Patient has Overall Clinical Improvement and Will Continue the Unasyn and monitor clinical course closely Time with Patient: Less than 30
--- NOTE | 2022-03-22 14:34 | P.PN ---
Subjective Progress Note Date: 03/15/22 Principal diagnosis: Sepsis UTI/aspiration pneumonia Patient is an 87 year old male with multiple comorbidities who was sent to the ER from group home for a blood pressure and the patient was noticed to be lethargic and was concern for possible right lower lobe aspiration pneumonia as well as a UTI. On today's evaluation of 03/15/2022, The patient continues to be afebrile, the patient is breathing comfortably on 4 L nasal cannula oxygen, patient denies any chest pain or worsening cough no abdominal pain and no diarrhea has been reported Objective - Vital Signs Vital signs: Vital Signs Temp 97.8 F 03/15/22 14:00 Pulse 54 L 03/15/22 14:00 Resp 17 03/15/22 14:00 BP 90/45 03/15/22 14:00 Pulse Ox 98 03/15/22 14:00 FiO2 Intake & Output 03/14/22 03/15/22 03/15/22 18:59 06:59 18:59 Output Total 500 250 Balance -500 -250 Weight 88.5 kg 88.5 kg Output: Urine 500 250 Other: Voiding Method Indwelling Catheter Indwelling Catheter - Exam GENERAL DESCRIPTION: An elderly male lying in bed in no distress RESPIRATORY SYSTEM: Unlabored breathing , decreased breath sounds at bases HEART: S1 S2 regular rate and rhythm , ABDOMEN: Soft , no tenderness EXTREMITIES: No edema feet - Labs CBC & Chem 7: 03/12/22 06:32 03/14/22 07:03 Labs: Abnormal Lab Results - Last 24 Hours (Table) 03/14/22 03/14/22 03/15/22 Range/Units 16:30 21:03 00:31 POC Glucose (mg/dL) 187 H 271 H 235 H (70-110) mg/dL 03/15/22 03/15/22 Range/Units 06:05 11:36 POC Glucose (mg/dL) 145 H 129 H (70-110) mg/dL Assessment and Plan (1) Pneumonia Status: Acute Code(s): J18.9 - PNEUMONIA, UNSPECIFIED ORGANISM SNOMED Code(s): 988942940 (2) UTI (urinary tract infection) Status: Acute Code(s): N39.0 - URINARY TRACT INFECTION, SITE NOT SPECIFIED SNOMED Code(s): 24455481 Plan: 1patient presented to hospital with weakness lethargy head this patient did have evidence of UTI and possible right-sided pneumonia in this patient being a group home resident will need to cover for resistant gram-negative with a likely pathogen. The patient urine however is currently showing enterococcus blood cultures have been negative so far sputum hasn't been collected 2 Patient has shown Clinical Improvement with Unasyn finishing therapy with a short course of oral Augmentin 7 days Time with Patient: Less than 30
== END 2022-03-15 18:16 | DRG 698 ==
LOC: EC 16:10 → 2SICU 19:14 → 4SSUR 03-03 12:30
PROVIDERS: ADMIT Internal Medicine; ATTEND Internal Medicine
PROC: 0DH67UZ Insertion of Feeding Device into Stomach, Via Natural or Artificial Opening (ICD-10-PCS; principal; 2022-03-02)
PROC: 3E0G76Z Introduction of Nutritional Substance into Upper GI, Via Natural or Artificial Opening (ICD-10-PCS; principal; 2022-03-02)
DX: T83.511A Infection and inflammatory reaction due to indwelling urethral catheter, initial encounter (principal); A41.81 Sepsis due to Enterococcus; L89.153 Pressure ulcer of sacral region, stage 3; E11.10 Type 2 diabetes mellitus with ketoacidosis without coma; R65.21 Severe sepsis with septic shock; N17.0 Acute kidney failure with tubular necrosis; G93.41 Metabolic encephalopathy; E43 Unspecified severe protein-calorie malnutrition; J69.0 Pneumonitis due to inhalation of food and vomit; K66.1 Hemoperitoneum; E87.0 Hyperosmolality and hypernatremia; F33.9 Major depressive disorder, recurrent, unspecified; I13.0 Hypertensive heart and chronic kidney disease with heart failure and stage 1 through stage 4 chronic kidney disease, or unspecified chronic kidney disease; I48.20 Chronic atrial fibrillation, unspecified; J44.0 Chronic obstructive pulmonary disease with (acute) lower respiratory infection; J96.11 Chronic respiratory failure with hypoxia; N39.0 Urinary tract infection, site not specified; R13.10 Dysphagia, unspecified; D63.1 Anemia in chronic kidney disease; D69.6 Thrombocytopenia, unspecified; I50.9 Heart failure, unspecified; E11.22 Type 2 diabetes mellitus with diabetic chronic kidney disease; G30.9 Alzheimer's disease, unspecified; E11.649 Type 2 diabetes mellitus with hypoglycemia without coma; G20 Parkinson's disease; L89.892 Pressure ulcer of other site, stage 2; F02.80 Dementia in other diseases classified elsewhere, unspecified severity, without behavioral disturbance, psychotic disturbance, mood disturbance, and anxiety; N18.31 Chronic kidney disease, stage 3a; D50.9 Iron deficiency anemia, unspecified; F41.1 Generalized anxiety disorder; H54.61 Unqualified visual loss, right eye, normal vision left eye; H91.90 Unspecified hearing loss, unspecified ear; I25.10 Atherosclerotic heart disease of native coronary artery without angina pectoris; M13.0 Polyarthritis, unspecified; M1A.9XX0 Chronic gout, unspecified, without tophus (tophi); N40.1 Benign prostatic hyperplasia with lower urinary tract symptoms; E86.0 Dehydration; E86.1 Hypovolemia; E83.42 Hypomagnesemia; R33.8 Other retention of urine; Z68.29 Body mass index [BMI] 29.0-29.9, adult; Y84.6 Urinary catheterization as the cause of abnormal reaction of the patient, or of later complication, without mention of misadventure at the time of the procedure; Z79.84 Long term (current) use of oral hypoglycemic drugs; Z79.899 Other long term (current) drug therapy; Z86.73 Personal history of transient ischemic attack (TIA), and cerebral infarction without residual deficits; Z87.01 Personal history of pneumonia (recurrent); Z87.891 Personal history of nicotine dependence; Z90.5 Acquired absence of kidney; Z28.21 Immunization not carried out because of patient refusal
CPT/HCPCS: 36415; 36600; 70450; 71045; 74176; 74230; 80048; 80051; 80053; 80202; 81001; 82009; 82565; 82728; 82805; 82947; 83036; 83540; 83550; 83605; 83735; 84100; 84295; 84484; 84520; 85025; 85027; 85610; 85730; 87040; 87077; 87086; 87186; 93005; 94640; 94760; 96365; 96366; 96368; 96375; 99291

== ENCOUNTER 2022-04-02 16:37 | Inpatient (IN) | payer MEDICARE ==
[2022-04-02] MEDS ORDERED: SODIUM CHLORIDE 0.9% 1,000 ML IV STA (16:59)
[2022-04-02 17:31] LABS: Anisocytosis Slight; Basophils % (A) 1 %; Eosinophils # (A) 0.1 k/uL (0-0.7); Eosinophils % (A) 1 %; HCT 26.2 % (39.0-53.0); Hypochromasia Marked; Lymphocytes # (A) 2.4 k/uL (1.0-4.8); Lymphocytes % (A) 44 %; MCH 28.3 pg (25.0-35.0); Mean Platelet Volume 12.5; Monocytes # (A) 0.3 k/uL (0-1.0); Monocytes % (A) 5 %; Neutrophils # (A) 2.7 k/uL (1.3-7.7); Neutrophils % (A) 48 %; RBC 2.77 m/uL (4.30-5.90); RDW 16.3 % (11.5-15.5); WBC 5.5 k/uL (3.8-10.6)
[2022-04-02 17:41] LABS: Albumin 2.6 g/dL (3.5-5.0); Magnesium 1.6 mg/dL (1.6-2.3); Potassium 4.6 mmol/L (3.5-5.1); Total Bilirubin 0.4 mg/dL (0.2-1.3); Total Protein 5.7 g/dL (6.3-8.2)
[2022-04-02 17:42] LABS: Partial Thromboplastin Time 27.7 sec (22.0-30.0); Prothrombin Time 11.3 sec (9.0-12.0)
[2022-04-02 17:44] LABS: HGB 7.9 gm/dL (13.0-17.5); MCV 94.2 fL (80.0-100.0)
[2022-04-02 17:50] LABS: Appearance,Urine Cloudy (Clear); Bilirubin,Urine Negative (Negative); Blood,Urine Small (Negative); Color,Urine Yellow; Glucose,Urine (UA) Negative (Negative); Ketones,Urine Negative (Negative); Leukocyte Esterase,Urine Small (Negative); Mucus,Urine Occasional /hpf; Nitrite,Urine Negative (Negative); PH, Urine 5.5 (5.0-8.0); Protein,Urine Trace (Negative); RBC,Urine 8 /hpf (0-5); Specific Gravity,Urine 1.013 (1.001-1.035); Urobilinogen,Urine <2.0 mg/dL (<2.0); WBC,Urine 3 /hpf (0-5)
[2022-04-02 18:05] LABS: Ovalocytes Present; Platelet Count 89 k/uL (150-450); Poikilocytosis (M) Present
--- NOTE | 2022-04-02 18:30 | XR ---
EXAMINATION TYPE: XR chest 2V DATE OF EXAM: 04/02/2022 5:40 PM COMPARISON: Chest radiographs from 03/14/2022 TECHNIQUE: XR chest 2V Frontal and lateral views of the chest. CLINICAL INDICATION:Male, 87 years old with history of difficulty breathing; FINDINGS: Lungs/Pleura: Scattered subtle reticular and hazy opacities. No evidence of pneumothorax, focal conso lidation or pleural effusion. Pulmonary vascularity: Unremarkable. Heart/mediastinum: Cardiomediastinal silhouette is unremarkable. Musculoskeletal: No acute osseous pathology. IMPRESSION: Subtle scattered opacities which may represent an atypical pneumonia. Correlate for covid 19.
[2022-04-02] MEDS ORDERED: FUROSEMIDE 10 MG/ML 4 ML VIAL IV STA (18:44)
[2022-04-02] MEDS ORDERED: NALOXONE 0.4 MG/ML 1 ML VIAL IV PRN (19:00)
--- NOTE | 2022-04-02 19:00 | ED ---
General Adult HPI - General Chief complaint: Shortness of Breath Stated complaint: SOB Time Seen by Provider: 04/02/22 16:43 Source: EMS, RN notes reviewed, old records reviewed Mode of arrival: EMS Limitations: altered mental status - History of Present Illness Initial comments: Patient is an 87-year-old male who presents to the emergency department after being sent in for increased work of breathing. Comes from a [facility]. Recently was admitted for sepsis, and is being treated for pneumonia. They're concerned that there is no improvement in symptoms and state that he seemed more short of breath earlier. Patient does have a history of dementia and is a poor historian, however states that he has no acute complaints. Denies any worsening shortness breath, chest pain, abdominal pain, nausea, vomiting. Denies any lower extremity swelling. Denies any orthopnea or PND. Denies any fevers or chills. Chronically is on 2 L nasal cannula oxygen. EMS states that he required 4 L nasal cannula action. Presents for further evaluation at this time. Has a chronic indwelling Ramirez catheter. - Related Data Home Medications Medication Instructions Recorded Confirmed Sertraline [Zoloft] 50 mg PO HS 01/25/20 04/02/22 allopurinoL [Zyloprim] 100 mg PO DAILY 01/25/20 04/02/22 Pioglitazone [Actos] 15 mg PO DAILY 05/13/21 04/02/22 Acetaminophen [Tylenol] 650 mg PO Q4H PRN 12/11/21 04/02/22 Ferrous Sulfate 330 mg PO BID 02/28/22 04/02/22 Multivitamins, Thera Liquid 5 ml PO DAILY 02/28/22 04/02/22 [Theragran Liquid (formulary)] Nitroglycerin Sl Tabs [Nitrostat] 0.4 mg SUBLINGUAL Q5M PRN 02/28/22 04/02/22 Omeprazole 20 mg PO DAILY@0600 02/28/22 04/02/22 guaiFENesin [guaiFENesin Oral 100 mg PO Q6H PRN 02/28/22 04/02/22 Solution] Collagenase [Santyl Ointment] 1 applic TOPICAL HS 04/02/22 04/02/22 Darbepoetin Ten [Aranesp] 40 mcg SQ BOATENG 04/02/22 04/02/22 Lactose-Reduced Food [Ensure Plus] 1 can PO DAILY 04/02/22 04/02/22 Metoprolol Tartrate [Lopressor] 12.5 mg PO BID 04/02/22 04/02/22 Allergies Allergy/AdvReac Type Severity Reaction Status Date / Time No Known Allergies Allergy Verified 04/02/22 17:59 Review of Systems ROS Statement: Those systems with pertinent positive or pertinent negative responses have been documented in the HPI. Review of Systems: CONST: Denies fever EYES: Denies blurry vision ENT: Denies nasal congestion C/V: Denies Chest pain RESP: Denies shortness of breath GI: Denies abdominal pain : Denies dysuria SKIN: Denies rash. MSK: Denies joint pain. NEURO: Denies headache ROS Other: All systems not noted in ROS Statement are negative. Past Medical History Past Medical History: Atrial Fibrillation, Cancer, COPD, Diabetes Mellitus, Eye Disorder, Hearing Disorder / Deafness, Hypertension, Pneumonia, Prostate Disorder, Renal Disease Additional Past Medical History / Comment(s): Pt recently admitted to [facility] on 01/25/20 with a mechanical fall/hematoma R buttock and acute blood loss anemia. Other hx: 2010 Brain cancer with surgery and radiation, L nephrectomy d/t deteriorating kidney, CKD stage III, BPH, chronic thrombocytopenia, chronic a nemia, diet controlled diabetes, generalized arthritis, L2 compression fracture, blind R eye, [place] blaterally, seasonal allergies. 05/14/21 admitted with abdominal hematoma History of Any Multi-Drug Resistant Organisms: None Reported Additional Past Surgical History / Comment(s): L nephrectomy, brain tumor removal, bilateral cataract removals, colonoscopy. Past Anesthesia/Blood Transfusion Reactions: No Reported Reaction Additional Past Anesthesia/Blood Transfusion Reaction / Comment(s): Pt has r eceived blood in past without reaction. Past Psychological History: Depression Smoking Status: Former smoker Past Alcohol Use History: None Reported Past Drug Use History: None Reported - Past Family History Father Family Medical History: No Reported History Additional Family Medical History / Comment(s): Father was healthy. He at the age of 62yrs in a MVA. Mother Additional Family Medical History / Comment(s): Mother at the age of 86yrs of "heart problems." Brother(s) Additional Family Medical History / Comment(s): Patient has 3 brothers and one is passed from old age. Patient has 4 sisters with no major medical problems. Patient had 2 children one from muscular dystrophy and one is alive with no major medical problems. General Exam - General Exam Comments Initial Comments: General: Appears in no acute distress. HEAD: Normal with no signs of head trauma. EYES: PERRLA, EOMI, conjunctiva normal, no discharge. ENT: Hearing grossly intact, normal oropharynx. RESPIRATORY: Clear breath sounds bilaterally. No wheezes, rales, or rhonchi. No increased work of breathing. 98% on home 2 L nasal cannula action. C/V: Irregular rate and rhythm with history of atrial fibrillation. S1 and S2 auscultated. Peripheral pulses 2+ and intact throughout. No peripheral edema. ABD: Abd is soft, nontender, nondistended EXT: Normal range of motion, no obvious deformity SKIN: No rashes or lesions observed on exposed skin. NEURO: Alert and oriented 2-3 which is baseline. No focal sensory strength deficits. Limitations: altered mental status Course Vital Signs 04/02/22 04/02/22 16:43 17:00 Temperature 97.4 F L Pulse Rate 93 Respiratory 18 18 Rate Blood Pressure 101/72 O2 Sat by Pulse 98 Oximetry Medical Decision Making - Medical Decision Making Based on the patient's presentation and physical exam, I'm concerned for possible upper respiratory infectious process getting worse. We'll obtain cardiopulmonary labs, Covid and flu swabs, chest x-ray, EKG. Vital signs appear to be within normal limits at this time. Does have a history of atrial fibrillation, but he is rate controlled at this time. Is on his normal home 2 L nasal cannula oxygen and is saturating well. EKG shows chronic atrial fibrillation without any signs of acute ischemia. Laboratory studies are remarkable for bilateral pulmonary vascular congestion versus infiltrate slightly worse from prior. Patient has a chronic normocytic anemia with hemoglobin 7.9, improved from prior hemoglobin of 7.0. Patient has chronic thrombocytopenia of 89, improved from prior thrombocytopenia of 40. Laboratory studies are remarkable for an elevated BUN/creatinine in the setting of CK D. Appears to be around his baseline. Troponin is indeterminate at 0.015. BNP is elevated to 3300. Urinalysis is unremarkable. Covid flu negative. On reevaluation, vital signs are unchanged. I'm concerned for possible new onse t heart failure. Did discuss with the patient's family who are at bedside at this point he previously was on diuretics but they do not believe he is on them anymore. I would like cardiology to evaluate the patient. They were in agreement this plan. We will trend the troponin, obtain an echo. Cardiology will be consulted. Will be started on Lasix. I spoke with Dr. Cazares the admitting physician who was in agreement this plan. Patient was admitted in stable condition. - Lab Data Result diagrams: 04/02/22 17:14 04/02/22 17:14 Lab Results 04/02/22 04/02/22 04/02/22 Range/Units 17:14 17:14 17:14 WBC 5.5 (3.8-10.6) k/uL RBC 2.77 L (4.30-5.90) m/uL Hgb 7.9 L D (13.0-17.5) gm/dL Hct 26.2 L (39.0-53.0) % MCV 94.2 D (80.0-100.0) fL MCH 28.3 (25.0-35.0) pg MCHC 30.0 L (31.0-37.0) g/dL RDW 16.3 H (11.5-15.5) % Plt Count 89 L (150-450) k/uL MPV 12.5 Neutrophils % 48 % Lymphocytes % 44 % Monocytes % 5 % Eosinophils % 1 % Basophils % 1 % Neutrophils # 2.7 (1.3-7.7) k/uL Lymphocytes # 2.4 (1.0-4.8) k/uL Monocytes # 0.3 (0-1.0) k/uL Eosinophils # 0.1 (0-0.7) k/uL Basophils # 0.0 (0-0.2) k/uL Manual Slide Review Performed Hypochromasia Marked Poikilocytosis (manual Present Anisocytosis Slight Ovalocytes Present PT 11.3 (9.0-12.0) sec INR 1.0 (<1.2) APTT 27.7 (22.0-30.0) sec Sodium (137-145) mmol/L Potassium (3.5-5.1) mmol/L Chloride (98-107) mmol/L Carbon Dioxide (22-30) mmol/L Anion Gap mmol/L BUN (9-20) mg/dL Creatinine (0.66-1.25) mg/dL Est GFR (CKD-EPI)AfAm (>60 ml/min/1.73 sqM) Est GFR (CKD-EPI)NonAf (>60 ml/min/1.73 sqM) Glucose (74-99) mg/dL Plasma Lactic Acid Ralph (0.7-2.0) mmol/L Calcium (8.4-10.2) mg/dL Magnesium (1.6-2.3) mg/dL Total Bilirubin (0.2-1.3) mg/dL AST (17-59) U/L ALT (4-49) U/L Alkaline Phosphatase (38-126) U/L Troponin I (0.000-0.034) ng/mL NT-Pro-B Natriuret Pep pg/mL Total Protein (6.3-8.2) g/dL Albumin (3.5-5.0) g/dL Urine Color Yellow Urine Appearance Cloudy (Clear) Urine pH 5.5 (5.0-8.0) Ur Specific [place] 1.013 (1.001-1.035) Urine Protein Trace H (Negative) Urine Glucose (UA) Negative (Negative) Urine Ketones Negative (Negative) Urine Blood Small H (Negative) Urine Nitrite Negative (Negative) Urine Bilirubin Negative (Negative) Urine Urobilinogen <2.0 (<2.0) mg/dL Ur Leukocyte Esterase Small H (Negative) Urine RBC 8 H (0-5) /hpf Urine WBC 3 (0-5) /hpf Urine Mucus Occasional H (None) /hpf Coronavirus (PCR) (Not Detectd) Influenza Type A RNA (Not Detectd) Influenza Type B (PCR) (Not Detectd) 04/02/22 04/02/22 04/02/22 Range/Units 17:14 17:14 17:14 WBC (3.8-10.6) k/uL RBC (4.30-5.90) m/uL Hgb (13.0-17.5) gm/dL Hct (39.0-53.0) % MCV (80.0-100.0) fL MCH (25.0-35.0) pg MCHC (31.0-37.0) g/dL RDW (11.5-15.5) % Plt Count (150-450) k/uL MPV Neutrophils % % Lymphocytes % % Monocytes % % Eosinophils % % Basophils % % Neutrophils # (1.3-7.7) k/uL Lymphocytes # (1.0-4.8) k/uL Monocytes # (0-1.0) k/uL Eosinophils # (0-0.7) k/uL Basophils # (0-0.2) k/uL Manual Slide Review Hypochromasia Poikilocytosis (manual Anisocytosis Ovalocytes PT (9.0-12.0) sec INR (<1.2) APTT (22.0-30.0) sec Sodium 145 (137-145) mmol/L Potassium 4.6 (3.5-5.1) mmol/L Chloride 111 H (98-107) mmol/L Carbon Dioxide 29 (22-30) mmol/L Anion Gap 5 mmol/L BUN 36 H (9-20) mg/dL Creatinine 1.72 H (0.66-1.25) mg/dL Est GFR (CKD-EPI)AfAm 40 (>60 ml/min/1.73 sqM) Est GFR (CKD-EPI)NonAf 35 (>60 ml/min/1.73 sqM) Glucose 144 H (74-99) mg/dL Plasma Lactic Acid Ralph 1.3 (0.7-2.0) mmol/L Calcium 8.0 L (8.4-10.2) mg/dL Magnesium 1.6 (1.6-2.3) mg/dL Total Bilirubin 0.4 (0.2-1.3) mg/dL AST 16 L (17-59) U/L ALT 11 (4-49) U/L Alkaline Phosphatase 83 (38-126) U/L Troponin I 0.015 (0.000-0.034) ng/mL NT-Pro-B Natriuret Pep pg/mL Total Protein 5.7 L (6.3-8.2) g/dL Albumin 2.6 L (3.5-5.0) g/dL Urine Color Urine Appearance (Clear) Urine pH (5.0-8.0) Ur Specific [place] (1.001-1.035) Urine Protein (Negative) Urine Glucose (UA) (Negative) Urine Ketones (Negative) Urine Blood (Negative) Urine Nitrite (Negative) Urine Bilirubin (Negative) Urine Urobilinogen (<2.0) mg/dL Ur Leukocyte Esterase (Negative) Urine RBC (0-5) /hpf Urine WBC (0-5) /hpf Urine Mucus (None) /hpf Coronavirus (PCR) (Not Detectd) Influenza Type A RNA (Not Detectd) Influenza Type B (PCR) (Not Detectd) 04/02/22 04/02/22 04/02/22 Range/Units 17:14 18:01 18:01 WBC (3.8-10.6) k/uL RBC (4.30-5.90) m/uL Hgb (13.0-17.5) gm/dL Hct (39.0-53.0) % MCV (80.0-100.0) fL MCH (25.0-35.0) pg MCHC (31.0-37.0) g/dL RDW (11.5-15.5) % Plt Count (150-450) k/uL MPV Neutrophils % % Lymphocytes % % Monocytes % % Eosinophils % % Basophils % % Neutrophils # (1.3-7.7) k/uL Lymphocytes # (1.0-4.8) k/uL Monocytes # (0-1.0) k/uL Eosinophils # (0-0.7) k/uL Basophils # (0-0.2) k/uL Manual Slide Review Hypochromasia Poikilocytosis (manual Anisocytosis Ovalocytes PT (9.0-12.0) sec INR (<1.2) APTT (22.0-30.0) sec Sodium (137-145) mmol/L Potassium (3.5-5.1) mmol/L Chloride (98-107) mmol/L Carbon Dioxide (22-30) mmol/L Anion Gap mmol/L BUN (9-20) mg/dL Creatinine (0.66-1.25) mg/dL Est GFR (CKD-EPI)AfAm (>60 ml/min/1.73 sqM) Est GFR (CKD-EPI)NonAf (>60 ml/min/1.73 sqM) Glucose (74-99) mg/dL Plasma Lactic Acid Ralph (0.7-2.0) mmol/L Calcium (8.4-10.2) mg/dL Magnesium (1.6-2.3) mg/dL Total Bilirubin (0.2-1.3) mg/dL AST (17-59) U/L ALT (4-49) U/L Alkaline Phosphatase (38-126) U/L Troponin I (0.000-0.034) ng/mL NT-Pro-B Natriuret Pep 3300 pg/mL Total Protein (6.3-8.2) g/dL Albumin (3.5-5.0) g/dL Urine Color Urine Appearance (Clear) Urine pH (5.0-8.0) Ur Specific [place] (1.001-1.035) Urine Protein (Negative) Urine Glucose (UA) (Negative) Urine Ketones (Negative) Urine Blood (Negative) Urine Nitrite (Negative) Urine Bilirubin (Negative) Urine Urobilinogen (<2.0) mg/dL Ur Leukocyte Esterase (Negative) Urine RBC (0-5) /hpf Urine WBC (0-5) /hpf Urine Mucus (None) /hpf Coronavirus (PCR) Not Detected (Not Detectd) Influenza Type A RNA Not Detected (Not Detectd) Influenza Type B (PCR) Not Detected (Not Detectd) - EKG Data -: EKG Interpreted by Me EKG Comments: 12-lead Electrocardiogram Interpretation Note EKG was reviewed and interpreted by myself. 12-lead ECG performed at 1653 is interpreted by me as revealing chronic atrial fibrillation at a rate of 102 beats per minute. [place] is normal. DC interval is unobtainable. QRS duration is 145 ms. QTC is 427 ms.. There are chronic T wave inversions in lead V6, aVL. There were no acute ST or T wave abnormalities to suggest myocardial ischemia or injury. R wave progression across the precordium was satisfactory. By my interpretation this EKG is non-diagnostic for acute ischemia. No changes when compared to prior EKGs. History of chronic atrial fibrillation. Disposition Clinical Impression: Congestive heart failure, Volume overload, Pulmonary vascular congestion, Chronic respiratory failure with hypoxia, CKD (chronic kidney disease), Chronic anemia Disposition: ADMITTED IP TO THIS HOSP Condition: Stable Referrals: Wilfred Cazares MD [Primary Care Provider] - 1-2 days Time of Disposition: 18:45
[2022-04-02] MEDS ORDERED: guaiFENesin SYRUP 100MG/5ML 200 MG/10 ML CUP PO PRN (19:19)
[2022-04-02] MEDS ORDERED: ASPIRIN 81 MG PO STA (19:19)
[2022-04-02] MEDS ORDERED: ACETAMINOPHEN TAB 325 MG TAB PO PRN (19:19)
[2022-04-02] MEDS: METOPROLOL TARTRATE 12.5 MG TAB PO SCH (21:40)
[2022-04-02] MEDS: SERTRALINE 50 MG TAB PO SCH (21:40)
[2022-04-02] MEDS: HEPARIN SODIUM,PORCINE/PF 5,000 UNIT/0.5 ML SYRINGE SQ SCH (21:43)
[2022-04-03] MEDS: PANTOPRAZOLE 40 MG TABLET PO SCH (06:55)
--- NOTE | 2022-04-03 09:16 | P.CRDCN ---
History of Present Illness Consult date: 04/03/22 History of present illness: Patient is an 87-year-old male with a known history of chronic atrial fibrillation not on anticoagulation due to retroperitoneal hematoma and epistaxis, Parkinson's disease, Alzheimer's dementia, type 2 diabetes, chronic kidney disease with a history of left side nephrectomy, COPD, pneumonia. We have been consult at congestive heart failure. Patient follows with Dr. Mendez in the office. Patient was sent from [facility] for increased shortness of breath. Patient was recently admitted with sepsis pneumonia. According to records he had seemed to have increased shortness of breath and not improving since recent hospital discharge. Patient is a poor historian, he is pleasantly confused. EKG shows atrial fibrillation with a controlled ventricle rate. Troponins negative 3. Chest x-ray showed atypical pneumonia. He has negative for Covid. Patient had an echocardiogram in October 2020 which showed a normal LV function with an ejection fraction of 55-60% moderate mitral regurgitation. Vital signs remained stable. Patient is examined today resting comfortably in bed without signs of acute distress. Will obtain an echocardiogram. Will continue with IV diuretics. He is not a candidate for SUKHI inhibitor due to kidney disease Review of Systems REVIEW OF SYSTEMS At the time of my exam: CONSTITUTIONAL: Denies fever or chills. EYES: Negative for vision changes ENT: Negative for hearing loss CARDIOVASCULAR: Denies chest pain, shortness of breath, diaphoresis, orthopnea, PND or palpitations. VASCULAR: Denies edema RESPIRATORY: Denies cough. GASTROINTESTINAL: Denies abdominal pain, diarrhea, constipation, nausea or vomiting. MUSCULOSKELETAL: Denies myalgias. NEUROLOGIC: Denies numbness, tingling, headache or weakness. ENDOCRINE: Denies fatigue, weight change, polydipsia or polyurina. GENITOURINARY: Denies burning, hematuria or urgency with micturation. HEMATOLOGIC: Denies history of anemia or bleeding. DERMATOLOGY: Denies rash or skin sores PSYCH: Negative for depression or hallucinations. Past Medical History Past Medical History: Atrial Fibrillation, Cancer, COPD, Diabetes Mellitus, Eye Disorder, Hearing Disorder / Deafness, Hypertension, Pneumonia, Prostate Disorder, Renal Disease Additional Past Medical History / Comment(s): Pt recently admitted to [facility] on 01/25/20 with a mechanical fall/hematoma R buttock and acute blood loss anemia. Other hx: 2010 Brain cancer with surgery and radiation, L nephrectomy d/t d eteriorating kidney, CKD stage III, BPH, chronic thrombocytopenia, chronic anemia, diet controlled diabetes, generalized arthritis, L2 compression fracture, blind R eye, [place] blaterally, seasonal allergies. 05/14/21 admitted with abdominal hematoma History of Any Multi-Drug Resistant Organisms: None Reported Additional Past Surgical History / Comment(s): L nephrectomy, brain tumor removal, bilateral cataract removals, colonoscopy. Past Anesthesia/Blood Transfusion Reactions: No Reported Reaction Additional Past Anesthesia/Blood Transfusion Reaction / Comment(s): Pt has received blood in past without reaction. Past Psychological History: Depression Smoking Status: Former smoker Past Alcohol Use History: None Reported Past Drug Use History: None Reported - Past Family History Father Family Medical History: No Reported History Additional Family Medical History / Comment(s): Father was healthy. He at the age of 62yrs in a MVA. Mother Additional Family Medical History / Comment(s): Mother at the age of 86yrs of "heart problems." Brother(s) Additional Family Medical History / Comment(s): Patient has 3 brothers and one is passed from old age. Patient has 4 sisters with no major medical problems. Patient had 2 children one from muscular dystrophy and one is alive with no major medical problems. Medications and Allergies Home Medications Medication Instructions Recorded Confirmed Type Sertraline [Zoloft] 50 mg PO HS 01/25/20 04/02/22 History allopurinoL [Zyloprim] 100 mg PO DAILY 01/25/20 04/02/22 History Pioglitazone [Actos] 15 mg PO DAILY 05/13/21 04/02/22 History Acetaminophen [Tylenol] 650 mg PO Q4H PRN 12/11/21 04/02/22 History Ferrous Sulfate 330 mg PO BID 02/28/22 04/02/22 History Multivitamins, Thera Liquid 5 ml PO DAILY 02/28/22 04/02/22 History [Theragran Liquid (formulary)] Nitroglycerin Sl Tabs [Nitrostat] 0.4 mg SUBLINGUAL Q5M PRN 02/28/22 04/02/22 History Omeprazole 20 mg PO DAILY@0600 02/28/22 04/02/22 History guaiFENesin [guaiFENesin Oral 100 mg PO Q6H PRN 02/28/22 04/02/22 History Solution] Collagenase [Santyl Ointment] 1 applic TOPICAL HS 04/02/22 04/02/22 History Darbepoetin Ten [Aranesp] 40 mcg SQ BOATENG 04/02/22 04/02/22 History Lactose-Reduced Food [Ensure Plus] 1 can PO DAILY 04/02/22 04/02/22 History Metoprolol Tartrate [Lopressor] 12.5 mg PO BID 04/02/22 04/02/22 History Allergies Allergy/AdvReac Type Severity Reaction Status Date / Time No Known Allergies Allergy Verified 04/02/22 17:59 Physical Exam Vitals: Vital Signs Temp Pulse Resp BP Pulse Ox 04/03/22 06:00 82 18 122/69 04/03/22 05:00 84 19 121/75 04/03/22 04:00 90 18 116/85 04/03/22 03:00 80 15 125/79 04/03/22 02:00 79 21 119/91 95 04/03/22 01:00 81 19 116/76 04/03/22 00:00 78 14 127/76 95 04/02/22 23:00 82 12 135/80 90 L 04/02/22 22:00 88 12 133/100 97 04/02/22 21:00 82 17 109/94 99 04/02/22 20:00 108 H 20 121/78 92 L 04/02/22 19:41 101 H 22 121/78 94 L 04/02/22 17:30 94 12 114/69 04/02/22 17:00 18 101/72 04/02/22 16:57 102/91 94 L 04/02/22 16:43 97.4 F L 93 18 101/72 98 Intake and Output 04/02/22 04/03/22 04/03/22 22:59 06:59 14:59 Other: Weight 95.254 kg PHYSICAL EXAMINATION VITAL SIGNS: Reviewed General: The patient is awake and alert, in no distress, and does not appear acutely ill. Skin: Skin is warm and dry and no rashes or lesions are noted. Eye: Pupils are equal, round and reactive to light, extra-ocular movements are intact; there is normal conjunctiva bilaterally. Ears, nose, mouth and throat: There are moist mucous membranes and no oral les ions. Neck: The neck is supple, there is no tenderness or JVD. Cardiovascular: There is irregular regular rate and rhythm. No murmur, rub or gallop is appreciated. Respiratory: Lungs are clear to auscultation, respirations are non-labored, breath sounds are equal. No crackles or rhonchi Gastrointestinal: Soft, non-distended, non-tender abdomen without masses or organomegaly noted. There is no rebound or guarding present. Bowel sounds are unremarkable. Back: There is no tenderness to palpation in the midline. There is no obvious deformity. Musculoskeletal: Normal ROM, no tenderness, There is no pedal edema. There is no calf tenderness or swelling. Extremities: Mild bilateral pitting edema Vascular: Femoral pulse is normal. Posterior tibial pulses are normal .Dorsalis pedis is palpable, diminished. Neurological: CN II-XII intact. There are no obvious motor or sensory deficits. Speech is normal. Psychiatric: Cooperative, appropriate mood & affect, normal judgment Results 04/02/22 17:14 04/02/22 17:14 Cardiac Enzymes 04/02/22 04/02/22 04/02/22 Range/Units 17:14 17:14 20:02 AST 16 L (17-59) U/L Troponin I 0.015 <0.012 (0.000-0.034) ng/mL 04/02/22 Range/Units 22:30 AST (17-59) U/L Troponin I <0.012 (0.000-0.034) ng/mL Coagulation 04/02/22 Range/Units 17:14 PT 11.3 (9.0-12.0) sec APTT 27.7 (22.0-30.0) sec CBC 04/02/22 Range/Units 17:14 WBC 5.5 (3.8-10.6) k/uL RBC 2.77 L (4.30-5.90) m/uL Hgb 7.9 L D (13.0-17.5) gm/dL Hct 26.2 L (39.0-53.0) % Plt Count 89 L (150-450) k/uL Comprehensive Metabolic Panel 04/02/22 Range/Units 17:14 Sodium 145 (137-145) mmol/L Potassium 4.6 (3.5-5.1) mmol/L Chloride 111 H (98-107) mmol/L Carbon Dioxide 29 (22-30) mmol/L BUN 36 H (9-20) mg/dL Creatinine 1.72 H (0.66-1.25) mg/dL Glucose 144 H (74-99) mg/dL Calcium 8.0 L (8.4-10.2) mg/dL AST 16 L (17-59) U/L ALT 11 (4-49) U/L Alkaline Phosphatase 83 (38-126) U/L Total Protein 5.7 L (6.3-8.2) g/dL Albumin 2.6 L (3.5-5.0) g/dL Current Medications Generic Name Dose Route Start Last Admin Trade Name Freq PRN Reason Stop Dose Admin Acetaminophen 650 mg 04/02/22 19:19 Acetaminophen Tab 325 Mg Tab PO Q4H PRN Fever and/ or Pain Allopurinol 100 mg 04/03/22 09:00 Allopurinol 100 Mg Tab PO DAILY KEON Darbepoetin Ten 40 mcg 04/07/22 09:00 Darbepoetin Ten 40 Mcg/0.4 Ml Syringe SQ BOATENG KEON Furosemide 40 mg 04/03/22 09:00 Furosemide 10 Mg/Ml 4 Ml Vial IV Q12HR KEON Guaifenesin 100 mg 04/02/22 19:19 Guaifenesin Syrup 100mg/5ml 200 Mg/10 Ml Cup PO Q6H PRN Cough/Congestion Heparin Sodium (Porcine) 5,000 unit 04/02/22 21:00 04/02/22 21:43 Heparin Sodium,Porcine/Pf 5,000 Unit/0.5 Ml Syringe SQ 5,000 unit Q12HR KEON Administration Metoprolol Tartrate 12.5 mg 04/02/22 21:00 04/02/22 21:40 Metoprolol Tartrate 12.5 Mg Tab PO 12.5 mg BID KEON Administration Naloxone HCl 0.2 mg 04/02/22 19:00 Naloxone 0.4 Mg/Ml 1 Ml Vial IV Q2M PRN Opioid Reversal Pantoprazole Sodium 40 mg 04/03/22 06:00 04/03/22 06:55 Pantoprazole 40 Mg Tablet PO 40 mg DAILY@0600 KEON Administration Pioglitazone HCl 15 mg 04/03/22 09:00 Pioglitazone 15 Mg Tab PO DAILY KEON Sertraline HCl 50 mg 04/02/22 21:00 04/02/22 21:40 Sertraline 50 Mg Tab PO 50 mg HS KEON Administration Intake and Output 04/02/22 04/03/22 04/03/22 22:59 06:59 14:59 Other: Weight 95.254 kg 04/02/22 17:14 04/02/22 17:14 Assessment and Plan Assessment: Acute on chronic diastolic congestive heart failure Lower extremity edema Permanent atrial fibrillation Hypertension Chronic kidney disease Atypical pneumonia Plan: Continue with IV diuretics Obtain an echocardiogram Continue with telemetry monitoring Continue with accurate I's and O's and daily weights Further recommendations based on clinical course The above impression and plan of care have been discussed and directed by the signing physician. Ellen Bhakta, nurse practitioner, acting as scribe for signing physician.
[2022-04-03] MEDS ORDERED: NITROGLYCERIN SL TABS 0.4 MG TAB SUBLINGUAL PRN (10:02)
[2022-04-03] MEDS ORDERED: DEXTROSE 50% SYRINGE 50 ML IVP PRN ×2 (10:04)
--- NOTE | 2022-04-03 10:08 | P.HPIM ---
History of Present Illness H&P Date: 04/03/22 HISTORY OF PRESENT ILLNESS This is an 87-year-old male patient with past medical history of Parkinsons disease, Alzheimers dementia, diabetes mellitus type 2, chronic atrial fibrillation not on anticoagulation due to retroperitoneal hematoma, history of pneumonia, benign prostatic hypertrophy, chronic kidney disease with history of left-sided nephrectomy, history of large retroperitoneal hematoma 04/2021, history of aspiration pneumonia, chronic thrombocytopenia, chronic anemia. He has had multiple hospitalizations over the past year including UTI and streptococcal bacteremia, A. fib with RVR and aspiration pneumonia, subdural hematoma requiring transfer to [facility] with no surgical intervention provided. Patient's most recent hospitalization was in February at which time he was treated for acute sepsis, septic shock secondary to aspiration pneumonia and Ramirez catheter associated urinary tract infection, acute kidney injury, DKA, metabolic acidosis, A. fib with RVR, metabolic encephalopathy. Patient was stabilized and discharged back to [facility]. Since patient's return to [facility], he has refused to eat most of his meals refuses to get up out of bed most days and does not want to participate with therapies and activities. Yesterday, patient was seen yesterday and found to be at his baseline but later in the afternoon, patient developed some difficulty breathing and pulse ox had dropped despite increasing oxygen therapy to 8 L. Pulse ox was 81% and there was concern for increased weakness. Patient was transferred to [facility] for evaluation. Patient was found to be afebrile, heart rate 93, blood pressure 101/72 and pulse ox 90% on 2 L nasal cannula. WBC 5.5, hemoglobin 7.9, platelet count 89. Sodium 145, potassium 4.6, chloride 111, CO2 29, BUN 36 and creatinine 1.72. Blood sugar 144. Calcium 8.0. Lactic acid 1.3. Total bilirubin 0.4, AST 16, ALT 11, alkaline phosphatase 83. Magnesium 1.6. Troponin negative on 3 draws. ProBNP 3300. Urinalysis revealed blood small, protein trace, leukoesterase small, RBCs 8, mucus occasional. Coronavirus PCR not detected. Influenza A not detected. Influenza B not detected. Chest x-ray reveals subtle scattered opacities which may represent atypical pneumonia. Correlate for Covid 19. Patient was started on IV Lasix, cardiology, consult was requested and patient to be admitted on the [facility] floor. Patient is seen today in the ER waiting for bed on the [facility] floor. REVIEW OF SYSTEMS Constitutional: no fever, no chills, no night sweats. No weight change. Noted w eakness, noted fatigue no lethargy. Noted daytime sleepiness. EENT: No headache. No blurred vision or double vision, no loss of vision. No loss of Hearing, no ringingin the ears, no dizziness. No nasal drainage or congestion. No epistaxis. No sore throat. Lungs: Reported shortness of breath but none now, no cough, no sputum production. No wheezing. Cardiovascular: No chest pain, no lower extremity edema. No palpitations. No paroxysmal nocturnal dyspnea. No orthopnea. No lightheadedness or dizziness. No syncopal episodes. Abdominal: No abdominal pain. No nausea, vomiting. No diarrhea. No c onstipation. No bloody or tarry stools. Noted loss of appetite-chronic. Genitourinary: No dysuria, increased frequency, urgency. No urinary retention. Musculoskeletal: No myalgias. No muscle weakness, reported gait dysfunction, no frequent falls. No back pain. No neck pain. Integumentary: No wounds, no lesions. No rash or pruritus. No unusual bruising. No change in hair or nails. Neurologic: No aphasia. No facial droop. Noted change in mentation due to dementia. No head injury. No headache. No paralysis. No paresthesia. Psychiatric: No depression. No anxiety. No mood swings. Endocrine: No abnormal blood sugars. No weight change. No excessive sweating or thirst. No cold intolerance. MEDICAL HISTORY Chronic atrial fibrillation not on anticoagulation due to retroperitoneal hematoma COPD Parkinsons disease Alzheimersdementia Diabetes mellitus type 2 Deafness Recurrent pneumonia Benign prostatic hypertrophy Chronic kidney disease stage III Chronic gout Recurrent depression Retroperitoneal hematoma 04/2021 Subdural hematoma Brain cancer with surgery and radiation in 2010 SURGICAL HISTORY Left nephrectomy Brain tumor removal Bilateral cataract removal Colonoscopy SOCIAL HISTORY Patient smoked for long time he quit in 1977, no alcohol abuse, he was still li ving with his until his hospitalization a week ago when patient was transferred to the [place] [facility] at the time. FAMILY HISTORY His father from motor vehicle accident is a 62, other from heart disease at 86, patient had 3 brother one of them of old age for sister with no major medical problem. Patient had 2 children one had muscular dystrophy other one is living and well. PHYSICAL EXAMINATION Gen: This is an 87-year-old male. He is resting in ER bed and appears to be comfortable. No respiratory distress is noted, no coughing noted. HEENT: Head is atraumatic, normocephalic. Pupils equal, round. Sclerae is anicteric. NECK: Supple. No JVD. No lymphadenopathy. No thyromegaly. LUNGS: Decreased breath sounds bilaterally with a few scattered rhonchi. No intercostal retractions. HEART: Irregular rate and rhythm. 2/6 systolic murmur. ABDOMEN: Soft. Bowel sounds are present. No masses. No tenderness. Ramirez draining vincenzo urine with seiment. EXTREMITIES: No pedal edema. No calf tenderness. Dorsalis pedis palpable bilaterally. NEUROLOGICAL: Patient is awake, oriented to person and able to answer simple questions, generalized weakness. ASSESSMENT AND PLAN 1. Hypoxia, resolved, possibly secondary to acute on chronic diastolic heart failure. Cardiology consult appreciated. Patient continued on IV Lasix 40 mg twice daily, monitor I&O and daily weights, echocardiogram ordered, monitor electrolytes and renal function. 2. Recent hospitalization for Ramirez catheter associated sepsis and septic shock secondary to aspiration pneumonia and possible urinary tract infection. Stable. No signs of active infection. 3. Permanent atrial fibrillation. Patient is on anticoagulation due to retroperitoneal hematoma and subdural hematoma. 4. Anemia of chronic disease. Continue ferrous sulfate 325 mg twice daily, Aranesp 40 g every Friday. 5. COPD without exacerbation. 6. Chronic hypoxic respiratory failure usually on 2 L nasal cannula. Continue oxygen therapy. 7. Diabetes mellitus type 2. Continue Actos 15 mg daily and NovoLog scale. 8. Benign prostatic hypertrophy with urinary retention and chronic Ramirez catheter. 9. Chronic kidney disease stage III with history of left-sided nephrectomy. Avoid nephrotoxic agents. 10. History of large retroperitoneal hematoma with acute blood loss, stable, 04/2021. 11. History of subdural hematoma, not requiring surgery. 12. Chronic gout. Continue allopurinol 100 mg daily. 13. Recurrent depression. Continue Zoloft 50 mg at bedtime. 14. Generalized anxiety disorder. 15. GI prophylaxis. Protonix 40 mg IV push daily. 16. DVT prophylaxis. Heparin subcu. CODE STATUS: Full code. Patient admitted to the hospital for a minimum of one night stay. Prognosis guarded DISCHARGE PLAN Return to [facility] on . Impression and plan of care have been directed as dictated by the signing physician. Cindy Tobias nurse practitioner acting as scribe for signing physician. Past Medical History Past Medical History: Atrial Fibrillation, Cancer, COPD, Diabetes Mellitus, Eye Disorder, Hearing Disorder / Deafness, Hypertension, Pneumonia, Prostate Disorder, Renal Disease Additional Past Medical History / Comment(s): Pt recently admitted to [facility] on 01/25/20 with a mechanical fall/hematoma R buttock and acute blood loss anemia. Other hx: 2010 Brain cancer with surgery and radiation, L nephrectomy d/t de teriorating kidney, CKD stage III, BPH, chronic thrombocytopenia, chronic anemia, diet controlled diabetes, generalized arthritis, L2 compression fracture, blind R eye, [place] blaterally, seasonal allergies. 05/14/21 admitted with abdominal hematoma History of Any Multi-Drug Resistant Organisms: None Reported Additional Past Surgical History / Comment(s): L nephrectomy, brain tumor removal, bilateral cataract removals, colonoscopy. Past Anesthesia/Blood Transfusion Reactions: No Reported Reaction Additional Past Anesthesia/Blood Transfusion Reaction / Comment(s): Pt has received blood in past without reaction. Past Psychological History: Depression Smoking Status: Former smoker Past Alcohol Use History: None Reported Past Drug Use History: None Reported - Past Family History Father Family Medical History: No Reported History Additional Family Medical History / Comment(s): Father was healthy. He at the age of 62yrs in a MVA. Mother Additional Family Medical History / Comment(s): Mother at the age of 86yrs of "heart problems." Brother(s) Additional Family Medical History / Comment(s): Patient has 3 brothers and one is passed from old age. Patient has 4 sisters with no major medical problems. Patient had 2 children one from muscular dystrophy and one is alive with no major medical problems. Medications and Allergies Home Medications Medication Instructions Recorded Confirmed Type Sertraline [Zoloft] 50 mg PO HS 01/25/20 04/02/22 History allopurinoL [Zyloprim] 100 mg PO DAILY 01/25/20 04/02/22 History Pioglitazone [Actos] 15 mg PO DAILY 05/13/21 04/02/22 History Acetaminophen [Tylenol] 650 mg PO Q4H PRN 12/11/21 04/02/22 History Ferrous Sulfate 330 mg PO BID 02/28/22 04/02/22 History Multivitamins, Thera Liquid 5 ml PO DAILY 02/28/22 04/02/22 History [Theragran Liquid (formulary)] Nitroglycerin Sl Tabs [Nitrostat] 0.4 mg SUBLINGUAL Q5M PRN 02/28/22 04/02/22 History Omeprazole 20 mg PO DAILY@0600 02/28/22 04/02/22 History guaiFENesin [guaiFENesin Oral 100 mg PO Q6H PRN 02/28/22 04/02/22 History Solution] Collagenase [Santyl Ointment] 1 applic TOPICAL HS 04/02/22 04/02/22 History Darbepoetin Ten [Aranesp] 40 mcg SQ BOATENG 04/02/22 04/02/22 History Lactose-Reduced Food [Ensure Plus] 1 can PO DAILY 04/02/22 04/02/22 History Metoprolol Tartrate [Lopressor] 12.5 mg PO BID 04/02/22 04/02/22 History Allergies Allergy/AdvReac Type Severity Reaction Status Date / Time No Known Allergies Allergy Verified 04/02/22 17:59 Physical Exam Vitals: Vital Signs Temp Pulse Resp BP Pulse Ox 04/03/22 06:00 82 18 122/69 04/03/22 05:00 84 19 121/75 04/03/22 04:00 90 18 116/85 04/03/22 03:00 80 15 125/79 04/03/22 02:00 79 21 119/91 95 04/03/22 01:00 81 19 116/76 04/03/22 00:00 78 14 127/76 95 04/02/22 23:00 82 12 135/80 90 L 04/02/22 22:00 88 12 133/100 97 04/02/22 21:00 82 17 109/94 99 04/02/22 20:00 108 H 20 121/78 92 L 04/02/22 19:41 101 H 22 121/78 94 L 04/02/22 17:30 94 12 114/69 04/02/22 17:00 18 101/72 04/02/22 16:57 102/91 94 L 04/02/22 16:43 97.4 F L 93 18 101/72 98 Intake and Output 04/02/22 04/03/22 04/03/22 22:59 06:59 14:59 Other: Weight 95.254 kg Results CBC & Chem 7: 04/02/22 17:14 04/02/22 17:14 Labs: Abnormal Lab Results - Last 24 Hours (Table) 04/02/22 04/02/22 04/02/22 Range/Units 17:14 17:14 17:14 RBC 2.77 L (4.30-5.90) m/uL Hgb 7.9 L D (13.0-17.5) gm/dL Hct 26.2 L (39.0-53.0) % MCHC 30.0 L (31.0-37.0) g/dL RDW 16.3 H (11.5-15.5) % Plt Count 89 L (150-450) k/uL Chloride 111 H (98-107) mmol/L BUN 36 H (9-20) mg/dL Creatinine 1.72 H (0.66-1.25) mg/dL Glucose 144 H (74-99) mg/dL Calcium 8.0 L (8.4-10.2) mg/dL AST 16 L (17-59) U/L Total Protein 5.7 L (6.3-8.2) g/dL Albumin 2.6 L (3.5-5.0) g/dL Urine Protein Trace H (Negative) Urine Blood Small H (Negative) Ur Leukocyte Esterase Small H (Negative) Urine RBC 8 H (0-5) /hpf Urine Mucus Occasional H (None) /hpf
--- NOTE | 2022-04-03 10:12 | CA ---
Transthoracic Echo Report Name: Alen Swanson Age: 87 Gender: M : 1935 Exam Date: 04/03/2022 08:50 Exam Location: [facility] Ht (in): 72 Wt (lb): 210 Ordering Physician: Robby Brown MD Attending/Referring Phys: Lead Programmer Mary Shaw RDCS Procedure CPT: Indications: concern for heart failure Cardiac Hx: Technical Quality: Contrast 1: Total Dose (mL): Contrast 2: Total Dose (mL): MEASUREMENTS (Male / Female) Normal Values 2D ECHO LV Diastolic Diameter PLAX 5.8 cm 4.2 - 5.9 / 3.9 - 5.3 cm LV Systolic Diameter PLAX 4.8 cm IVS Diastolic Thickness 1.0 cm 0.6 - 1.0 / 0.6 - 0.9 cm LVPW Diastolic Thickness 1.0 cm 0.6 - 1.0 / 0.6 - 0.9 cm LV Relative Wall Thickness 0.4 RV Internal Dim ED PLAX 3.2 cm LVOT Diameter 2.3 cm LA Systolic Diameter LX 4.1 cm 3.0 - 4.0 / 2.7 - 3.8 cm LA Volume 55.9 cm??? 18 - 58 / 22 - 52 cm??? M-MODE Aortic Root Diameter MM 4.1 cm MV E Point Septal Separation 0.6 cm AV Cusp Separation MM 1.2 cm DOPPLER AV Peak Velocity 99.4 cm/s AV Peak Gradient 3.9 mmHg MV Area PHT 4.8 cm??? Mitral E Point Velocity 91.2 cm/s Mitral A Point Velocity 37.3 cm/s Mitral E to A Ratio 2.4 MV Deceleration Time 158.0 ms TR Peak Velocity 268.4 cm/s TR Peak Gradient 28.8 mmHg Right Ventricular Systolic Press 33.2 mmHg FINDINGS Left Ventricle Left ventricular ejection fraction is estimated at 40-45 %. Left ventricular cavity size normal. Left ventricular wall thickness normal. Right Ventricle Normal right ventricular size and function. Mild pulmonary hypertension. Right Atrium Normal right atrial size. Left Atrium Normal left atrial size. No evidence for an atrial septal defect. Mitral Valve Mitral valve thickened. Mitral annular calcification. Mild mitral regurgitation. Aortic Valve Trileaflet aortic valve. No aortic valve stenosis or regurgitation. Thickened aortic valve without stenosis. Tricuspid Valve Mild tricuspid regurgitation. Mild tricuspid regurgitation. Pulmonic Valve Structurally normal pulmonic valve. Pericardium Normal pericardium. No pericardial effusion. Aorta Moderate aortic dilatation at the level of the sinuses of valsalva 41 mm. CONCLUSIONS Mild LV systolic dysfunction with an ejection fraction of 40-45%. Mitral annular calcification with mild mitral regurgitation. Mild pulmonary hypertension. Moderate dilatation of the aortic root. Previewed by: Dr. Emory Talbert MD (Electronically Signed) Final Date: 03 April 2022 10:12
[2022-04-03] MEDS: FUROSEMIDE 10 MG/ML 4 ML VIAL IV SCH ×2 (10:15→21:00)
[2022-04-03] MEDS: METOPROLOL TARTRATE 12.5 MG TAB PO SCH ×2 (10:15→22:56)
--- NOTE | 2022-04-03 10:15 | XR ---
EXAMINATION TYPE: XR chest 1V portable DATE OF EXAM: 04/03/2022 COMPARISON: 04/02/2022 INDICATION: CHF follow-up, line overload TECHNIQUE: Single frontal view of the chest is obtained. FINDINGS: The heart size is normal. The pulmonary vasculature is normal. Mild infiltrate remains present at the right base. Some minimal residual infiltrate may be at the lef t base. IMPRESSION: 1. Bibasilar infiltrates. Correlate for atelectasis and pulmonary edema. Continued follow-up can be p erformed.
[2022-04-03] MEDS: PIOGLITAZONE 15 MG TAB PO SCH (10:16)
[2022-04-03] MEDS: allopurinoL 100 MG TAB PO SCH (10:16)
[2022-04-03] MEDS: HEPARIN SODIUM,PORCINE/PF 5,000 UNIT/0.5 ML SYRINGE SQ SCH ×2 (10:17→22:56)
[2022-04-03 11:00] LABS: Basophils # (A) 0.02 X 10*3/uL (0.00-0.10); Basophils % (A) 0.4 %; Eosinophils # (A) 0.05 X 10*3/uL (0.04-0.35); Eosinophils % (A) 1.1 %; HGB 6.9 g/dL (13.0-17.0); Immature Grans, Automated 0.2 %; Lymphocytes # (A) 1.73 X 10*3/uL (0.90-5.00); Lymphocytes % (A) 38.2 %; MCH 27.8 pg (27.0-32.0); MCHC 28.8 g/dL (32.0-37.0); MCV 96.8 fL (80.0-97.0); Monocytes # (A) 0.37 X 10*3/uL (0.20-1.00); Monocytes % (A) 8.2 %; NRBC Per 100 WBC 0 /100 WBCS (0.0-0.0); Neutrophils # (A) 2.35 X 10*3/uL (1.80-7.70); Neutrophils % (A) 51.9 %; Platelet Count 80 X 10*3/uL (140-440); RBC 2.48 X 10*6/uL (4.40-5.60); RDW 16.1 % (11.5-14.5); WBC 4.53 X 10*3/uL (4.50-10.00)
[2022-04-03 11:53] LABS: African American GFR (CKD) 38.4 (60.0-200.0); Anion Gap 9.4 mmol/L (10.00-18.00); BUN/Creat Ratio 18.61 Ratio (12.00-20.00); Blood Urea Nitrogen 33.5 mg/dL (9.0-27.0); Calcium 8.1 mg/dL (8.7-10.3); Carbon Dioxide 29.6 mmol/L (20.0-27.5); Non-African American GFR(CKD) 33.1 (60.0-200.0); Potassium 4.8 mmol/L (3.5-5.5)
[2022-04-03 13:43] LABS: Glucose,Whole Blood 177 mg/dL (70-110)
[2022-04-03] MEDS: INSULIN ASPART (NovoLOG) 100 UNIT/ML VIAL SQ SCH ×3 (13:56→21:00)
[2022-04-03 16:16] LABS: Glucose,Whole Blood 142 mg/dL (70-110)
[2022-04-03 20:32] LABS: Glucose,Whole Blood 169 mg/dL (70-110)
[2022-04-03] MEDS: SERTRALINE 50 MG TAB PO SCH (20:59)
[2022-04-03] MEDS: FERROUS SULFATE 325 MG TAB PO SCH (20:59)
[2022-04-04] MEDS: PANTOPRAZOLE 40 MG TABLET PO SCH (06:24)
[2022-04-04 06:51] LABS: Glucose,Whole Blood 147 mg/dL (70-110)
--- NOTE | 2022-04-04 07:23 | P.DS ---
Providers Date of admission: 04/02/22 19:00 Expected date of discharge: 04/05/22 Attending physician: Wilfred Cazares Consults: 04/02/22 19:00 Consult Physician Routine Consulting Provider: [facility] Consult Reason/Comments: concern for heart failure, volume overload Do you want consulting provider notified?: Yes, Notify in am Primary care physician: Wilfred Cazares [facility] Course: HISTORY OF PRESENT ILLNESS This is an 87-year-old male patient with past medical history of Parkinsons disease, Alzheimers dementia, diabetes mellitus type 2, chronic atrial fibrillation not on anticoagulation due to retroperitoneal hematoma, history of pneumonia, benign prostatic hypertrophy, chronic kidney disease with history of left-sided nephrectomy, history of large retroperitoneal hematoma 04/2021, history of aspiration pneumonia, chronic thrombocytopenia, chronic anemia. He has had multiple hospitalizations over the past year including UTI and streptococcal bacteremia, A. fib with RVR and aspiration pneumonia, subdural hematoma requiring transfer to [facility] in [place] with no surgical intervention provided. Patient's most recent hospitalization was in February at which time he was treated for acute sepsis, septic shock secondary to aspiration pneumonia and Ramirez catheter associated urinary tract infection, acute kidney injury, DKA, metabolic acidosis, A. fib with RVR, metabolic encephalopathy. Patient was stabilized and discharged back to [facility]. Since patient's return to [facility], he has refused to eat most of his meals refuses to get up out of bed most days and does not want to participate with therapies and activities. Yesterday, patient was seen yesterday and found to be at his baseline but later in the afternoon, patient developed some difficulty breathing and pulse ox had dropped despite increasing oxygen therapy to 8 L. Pulse ox was 81% and there was concern for increased weakness. Patient was transferred to [facility] for evaluation. Patient was found to be afebrile, heart rate 93, blood pressure 101/72 and pulse ox 90% on 2 L nasal cannula. WBC 5.5, hemoglobin 7.9, platelet count 89. Sodium 145, potassium 4.6, chloride 111, CO2 29, BUN 36 and creatinine 1.72. Blood sugar 144. Calcium 8.0. Lactic acid 1.3. Total bilirubin 0.4, AST 16, ALT 11, alkaline phosphatase 83. Magnesium 1.6. Troponin negative on 3 draws. ProBNP 3300. Urinalysis revealed blood small, protein trace, leukoesterase small, RBCs 8, mucus occasional. Coronavirus PCR not detected. Influenza A not detected. Influenza B not detected. Chest x-ray reveals subtle scattered opacities which may represent atypical pneumonia. Correlate for Covid 19. Patient was started on IV Lasix, cardiology, consult was requested and patient to be admitted on the [facility] floor. Patient is seen today in the ER waiting for bed on the [facility] floor. 04/04: Patient is seen today on the [facility] floor. His been afebrile, blood pressure 117/60, pulse ox 94% on room air. Repeat blood work done yesterday revealed hemoglobin of 6.9, platelet count of 88, WBC 4.5. Sodium 149, potassium 4.8, chloride 110, CO2 29, BUN 33 and creatinine 1.8. Capillary blood glucose running between 142 and 177. A repeat CBC ordered for today reveals hemoglobin of 7.8. Patient's heart rate was elevated in the 120s to 140s most likely secondary to patient not taking his evening medications. *Note the patient has been refusing all of his medications including IV Lasix last evening. Patient did take his Lopressor this morning. This floor is unable to provide IV Lopressor so we'll add additional 12.5 mg and increases scheduled dose to 25 mg twice daily. Patient is denying any complaints. He denies any shortness of breath. No lower extremity edema. He is eating well this morning, no cough is noted. No fever or chills. Echocardiogram reveals mild LV systolic dysfunction with EF of 40-45%. Mitral annular calcification with mild mitral regurgitation. Mild pulmonary hypertension. Moderate dilatation of the aortic root. Repeat chest x-ray reveals bibasilar infiltrates. Correlate for atelectasis and pulmonary edema. Continue follow-up can be performed. Due to patient's elevated heart rate we will monitor overnight with new dosing of Lopressor and plan for discharge back to [facility] tomorrow. 04/05: Patient is sitting up in bed, awake and alert, he is eating when fed and is doing well, no episodes of choking. He has been afebrile, heart rate in the 60s to 90, blood pressure 119/69, pulse ox 99% on room air. Repeat hemoglobin yesterday morning revealed 7.8. Platelet count is 88 and WBC 5.2. Capillary blood glucose running between [id number]. No new concerns today from the patient's nurse. Patient denies any concerns, no shortness of breath. Patient will be discharged back to [facility] today in stable condition. DISCHARGE DIAGNOSES 1. Hypoxia, resolved, possibly secondary to acute on chronic systolic and diastolic heart failure. 2. Recent hospitalization for sepsis and septic shock secondary to aspiration pneumonia and Ramirez catheter associated urinary tract infection. 3. Permanent atrial fibrillation. 4. Anemia of chronic disease. 5. COPD without exacerbation. 6. Chronic hypoxic respiratory failure usually on 2 L nasal cannula. 7. Diabetes mellitus type 2. 8. Benign prostatic hypertrophy with urinary retention and chronic Ramirez catheter. 9. Chronic kidney disease stage III with history of left-sided nephrectomy. 10. History of large retroperitoneal hematoma with acute blood loss, stable, 04/2021. 11. History of subdural hematoma, not requiring surgery. 12. Chronic gout. 13. Recurrent depression. 14. Generalized anxiety disorder. DISCHARGE PLAN Return to [facility] Greater than 35 minutes was utilized and coordinating patient's discharge. Impression and plan of care have been directed as dictated by the signing physician. Cindy Tobias nurse practitioner acting as scribe for signing physician. Patient Condition at Discharge: Stable Plan - Discharge Summary Discharge Rx Participant: No New Discharge Prescriptions: New Dapagliflozin Propanediol [Farxiga] 5 mg PO DAILY #30 tablet Metoprolol Tartrate [Lopressor] 25 mg PO BID tab lisinopriL [Zestril] 2.5 mg PO DAILY #30 tab Furosemide [Lasix] 40 mg PO BID@0900,1600 tab Continue allopurinoL [Zyloprim] 100 mg PO DAILY Sertraline [Zoloft] 50 mg PO HS Omeprazole 20 mg PO DAILY@0600 Multivitamins, Thera Liquid [Theragran Liquid (formulary)] 5 ml PO DAILY Ferrous Sulfate 330 mg PO BID Collagenase [Santyl Ointment] 1 applic TOPICAL HS Acetaminophen [Tylenol] 650 mg PO Q4H PRN PRN Reason: Fever And/ Or Pain guaiFENesin [guaiFENesin Oral Solution] 100 mg PO Q6H PRN PRN Reason: Cough/Congestion Nitroglycerin Sl Tabs [Nitrostat] 0.4 mg SUBLINGUAL Q5M PRN PRN Reason: Chest Pain Lactose-Reduced Food [Ensure Plus] 1 can PO DAILY Darbepoetin Ten [Aranesp] 40 mcg SQ BOATENG Discontinued Pioglitazone [Actos] 15 mg PO DAILY Metoprolol Tartrate [Lopressor] 12.5 mg PO BID Discharge Medication List Sertraline [Zoloft] 50 mg PO HS 01/25/20 [History] allopurinoL [Zyloprim] 100 mg PO DAILY 01/25/20 [History] Acetaminophen [Tylenol] 650 mg PO Q4H PRN 12/11/21 [History] Ferrous Sulfate 330 mg PO BID 02/28/22 [History] Multivitamins, Thera Liquid [Theragran Liquid (formulary)] 5 ml PO DAILY 2 [History] Nitroglycerin Sl Tabs [Nitrostat] 0.4 mg SUBLINGUAL Q5M PRN 02/28/22 [History] Omeprazole 20 mg PO DAILY@0600 02/28/22 [History] guaiFENesin [guaiFENesin Oral Solution] 100 mg PO Q6H PRN 02/28/22 [History] Collagenase [Santyl Ointment] 1 applic TOPICAL HS 04/02/22 [History] Darbepoetin Ten [Aranesp] 40 mcg SQ BOATENG 04/02/22 [History] Lactose-Reduced Food [Ensure Plus] 1 can PO DAILY 04/02/22 [History] Dapagliflozin Propanediol [Farxiga] 5 mg PO DAILY #30 tablet 04/04/22 [Rx] lisinopriL [Zestril] 2.5 mg PO DAILY #30 tab 04/04/22 [Rx] Furosemide [Lasix] 40 mg PO BID@0900,1600 tab 04/05/22 [Rx] Metoprolol Tartrate [Lopressor] 25 mg PO BID tab 04/05/22 [Rx] Follow up Appointment(s)/Referral(s): Wilfred Cazares MD [Primary Care Provider] - 1 Week (AT [facility]) Ambulatory/Diagnostic Orders: Basic Metabolic Panel [LAB.AMB] Location: None Selected Complete Blood Count w/diff [LAB.AMB] Location: None Selected Discharge Disposition: TRANSFER TO SNF/ECF
[2022-04-04] MEDS: INSULIN ASPART (NovoLOG) 100 UNIT/ML VIAL SQ SCH ×4 (07:27→22:51)
[2022-04-04] MEDS: FERROUS SULFATE 325 MG TAB PO SCH ×2 (07:35→23:02)
[2022-04-04] MEDS: METOPROLOL TARTRATE 12.5 MG TAB PO SCH (07:35)
[2022-04-04] MEDS: PIOGLITAZONE 15 MG TAB PO SCH (07:36)
[2022-04-04] MEDS ORDERED: METOPROLOL TARTRATE 12.5 MG TAB PO STA (07:49)
[2022-04-04] MEDS: allopurinoL 100 MG TAB PO SCH (07:55)
[2022-04-04] MEDS: FUROSEMIDE 10 MG/ML 4 ML VIAL IV SCH ×2 (07:57→23:03)
[2022-04-04] MEDS: MULTIVITAMINS, THERA LIQUID 237 ML BOTTLE PO SCH (07:57)
[2022-04-04 08:43] LABS: Anisocytosis Slight; HCT 25.9 % (39.0-53.0); HGB 7.8 gm/dL (13.0-17.5); Hypochromasia Marked; MCH 28.3 pg (25.0-35.0); MCHC 30.1 g/dL (31.0-37.0); Mean Platelet Volume 12.6; RBC 2.75 m/uL (4.30-5.90); RDW 16.3 % (11.5-15.5); WBC 5.2 k/uL (3.8-10.6)
[2022-04-04 08:46] LABS: Platelet Count 88 k/uL (150-450)
--- NOTE | 2022-04-04 08:59 | P.PN ---
Subjective Progress Note Date: 04/04/22 HISTORY OF PRESENT ILLNESS This is an 87-year-old male patient with past medical history of Parkinsons d isease, Alzheimers dementia, diabetes mellitus type 2, chronic atrial fibrillation not on anticoagulation due to retroperitoneal hematoma, history of pneumonia, benign prostatic hypertrophy, chronic kidney disease with history of left-sided nephrectomy, history of large retroperitoneal hematoma 04/2021, history of aspiration pneumonia, chronic thrombocytopenia, chronic anemia. He has had multiple hospitalizations over the past year including UTI and streptococcal bacteremia, A. fib with RVR and aspiration pneumonia, subdural hematoma requiring transfer to [facility] with no surgical intervention provided. Patient's most recent hospitalization was in February at which time he was treated for acute sepsis, septic shock secondary to aspiration pneumonia and Ramirez catheter associated urinary tract infection, acute kidney injury, DKA, metabolic acidosis, A. fib with RVR, metabolic encephalopathy. Patient was stabilized and discharged back to [facility]. Since patient's return to [facility], he has refused to eat most of his meals refuses to get up out of bed most days and does not want to participate with therapies and activities. Yesterday, patient was seen yesterday and found to be at his baseline but later in the afternoon, patient developed some difficulty breathing and pulse ox had dropped despite increasing oxygen therapy to 8 L. Pulse ox was 81% and there was concern for increased weakness. Patient was transferred to [facility] for evaluation. Patient was found to be afebrile, heart rate 93, blood pressure 101/72 and pulse ox 90% on 2 L nasal cannula. WBC 5.5, hemoglobin 7.9, platelet count 89. Sodium 145, potassium 4.6, chloride 111, CO2 29, BUN 36 and creatinine 1.72. Blood sugar 144. Calcium 8.0. Lactic acid 1.3. Total bilirubin 0.4, AST 16, ALT 11, alkaline phosphatase 83. Magnesium 1.6. Troponin negative on 3 draws. ProBNP 3300. Urinalysis revealed blood small, protein trace, leukoesterase small, RBCs 8, mucus occasional. Coronavirus PCR not detected. Influenza A not detected. Influenza B not detected. Chest x-ray reveals subtle scattered opacities which may represent atypical pneumonia. Correlate for Covid 19. Patient was started on IV Lasix, cardiology, consult was requested and patient to be admitted on the [facility] floor. Patient is seen today in the ER waiting for bed on the [facility] floor. 04/04: Patient is seen today on the [facility] floor. His been afebrile, blood pressure 117/60, pulse ox 94% on room air. Repeat blood work done yesterday revealed hemoglobin of 6.9, platelet count of 88, WBC 4.5. Sodium 149, potassium 4.8, chloride 110, CO2 29, BUN 33 and creatinine 1.8. Capillary blood glucose running between 142 and 177. A repeat CBC ordered for today reveals hemoglobin of 7.8. Patient's heart rate was elevated in the 120s to 140s most likely secondary to patient not taking his evening medications. *Note the patient has been refusing all of his medications including IV Lasix last evening. Patient did take his Lopressor this morning. This floor is unable to provide IV Lopressor so we'll add additional 12.5 mg and increases scheduled dose to 25 mg twice daily. Patient is denying any complaints. He denies any shortness of breath. No lower extremity edema. He is eating well this morning, no cough is noted. No fever or chills. Echocardiogram reveals mild LV systolic dysfunction with EF of 40-45%. Mitral annular calcification with mild mitral regurgitation. Mild pulmonary hypertension. Moderate dilatation of the aortic root. Repeat chest x-ray reveals bibasilar infiltrates. Correlate for atelectasis and pulmonary edema. Continue follow-up can be performed. Due to patient's elevated heart rate we will monitor overnight with new dosing of Lopressor and plan for discharge back to [facility] tomorrow. REVIEW OF SYSTEMS Constitutional: no fever, no chills, no night sweats. No weight change. Noted weakness, noted fatigue no lethargy. Denies daytime sleepiness. EENT: No headache. No blurred vision or double vision, no loss of vision. Chronic loss of Hearing, no dizziness. No nasal drainage or congestion. No epistaxis. No sore throat. Lungs: Denies shortness of breath, no cough, no sputum production. No wheezing. Cardiovascular: No chest pain, no lower extremity edema. No palpitations. No paroxysmal nocturnal dyspnea. No orthopnea. No lightheadedness or dizziness. No syncopal episodes. Abdominal: No abdominal pain. No nausea, vomiting. No diarrhea. No constipation. No bloody or tarry stools. Noted loss of appetite-chronic. Genitourinary: No dysuria, increased frequency, urgency. No urinary retention. Musculoskeletal: No myalgias. No muscle weakness, reported gait dysfunction, no frequent falls. No back pain. No neck pain. Integumentary: No wounds, no lesions. No rash or pruritus. No unusual bruising. No change in hair or nails. Neurologic: No aphasia. No facial droop. Noted change in mentation due to dementia. No head injury. No headache. No paralysis. No paresthesia. Psychiatric: No depression. No anxiety. No mood swings. Endocrine: No abnormal blood sugars. No weight change. No excessive sweating or thirst. No cold intolerance. PHYSICAL EXAMINATION Gen: This is an 87-year-old male. He is resting in bed and appears to be comfortable. No respiratory distress is noted, no coughing noted. HEENT: Head is atraumatic, normocephalic. Pupils equal, round. Sclerae is anicteric. NECK: Supple. No JVD. No lymphadenopathy. No thyromegaly. LUNGS: Decreased breath sounds bilaterally with a few scattered rhonchi. No intercostal retractions. HEART: Irregular rate and rhythm. 2/6 systolic murmur. Tachycardic. ABDOMEN: Soft. Bowel sounds are present. No masses. No tenderness. Ramirez draining vincenzo urine with sediment. EXTREMITIES: No pedal edema. No calf tenderness. Dorsalis pedis palpable bilaterally. NEUROLOGICAL: Patient is awake, oriented to person and able to answer simple questions, generalized weakness. ASSESSMENT AND PLAN 1. Hypoxia, resolved, possibly secondary to acute on chronic systolic and diastolic heart failure. Cardiology consult appreciated. Patient continued on IV Lasix 40 mg twice daily, monitor I&O and daily weights, echocardiogram as above, monitor electrolytes and renal function. 2. Recent hospitalization for Ramirez catheter associated sepsis and septic shock secondary to aspiration pneumonia and possible urinary tract infection. Stable. No signs of active infection. 3. Permanent atrial fibrillation with RVR. Patient is on anticoagulation due to retroperitoneal hematoma and subdural hematoma. Increase Lopressor to 25 mg twice daily. 4. Anemia of chronic disease. Continue ferrous sulfate 325 mg twice daily, Aranesp 40 g every Friday. 5. COPD without exacerbation. 6. Chronic hypoxic respiratory failure usually on 2 L nasal cannula. Continue oxygen therapy. 7. Diabetes mellitus type 2. Continue Actos 15 mg daily and NovoLog scale. 8. Benign prostatic hypertrophy with urinary retention and chronic Ramirez catheter. 9. Chronic kidney disease stage III with history of left-sided nephrectomy. Avoid nephrotoxic agents. 10. History of large retroperitoneal hematoma with acute blood loss, stable, 04/2021. 11. History of subdural hematoma, not requiring surgery. 12. Chronic gout. Continue allopurinol 100 mg daily. 13. Recurrent depression. Continue Zoloft 50 mg at bedtime. 14. Generalized anxiety disorder. 15. GI prophylaxis. Protonix 40 mg IV push daily. 16. DVT prophylaxis. Heparin subcu. CODE STATUS: Full code. DISCHARGE PLAN Return to [facility] on Friday. Impression and plan of care have been directed as dictated by the signing physician. Cindy Tobias nurse practitioner acting as scribe for signing physician. Objective - Vital Signs Vital signs: Vital Signs Temp 98.9 F 04/04/22 01:38 Pulse 87 04/04/22 01:38 Resp 18 04/04/22 01:38 BP 117/60 04/04/22 01:38 Pulse Ox 94 L 04/04/22 01:38 FiO2 Intake & Output 04/03/22 04/04/22 04/04/22 18:59 06:59 18:59 Intake Total 200 Output Total 2100 1700 Balance -1900 -1700 Intake: Oral 200 Output: Urine 2100 1700 Other: Voiding Method Indwelling Catheter - Labs CBC & Chem 7: 04/04/22 08:10 04/03/22 06:36 Labs: Abnormal Lab Results - Last 24 Hours (Table) 04/03/22 04/03/22 04/03/22 Range/Units 06:36 06:36 06:36 RBC 2.48 L (4.40-5.60) X 10*6/uL Hgb 6.9 L* (13.0-17.0) g/dL Hct 24.0 L (39.6-50.0) % MCHC 28.8 L (32.0-37.0) g/dL RDW 16.1 H (11.5-14.5) % Plt Count 80 L (140-440) X 10*3/uL Immature Plt Fraction 14.0 H (1.1-6.1) % Sodium 149 H (135-145) mmol/L Chloride 110 H (96-109) mmol/L Carbon Dioxide 29.6 H (20.0-27.5) mmol/L Anion Gap 9.40 L (10.00-18.00) mmol/L BUN 33.5 H (9.0-27.0) mg/dL Creatinine 1.8 H (0.6-1.5) mg/dL Est GFR (CKD-EPI)AfAm 38.4 L (60.0-200.0) Est GFR (CKD-EPI)NonAf 33.1 L (60.0-200.0) Glucose 127 H (70-110) mg/dL POC Glucose (mg/dL) (70-110) mg/dL Hemoglobin A1c 7.0 H (0.0-6.0) % Calcium 8.1 L (8.7-10.3) mg/dL 04/03/22 04/03/22 04/03/22 Range/Units 13:42 16:15 20:30 RBC (4.40-5.60) X 10*6/uL Hgb (13.0-17.0) g/dL Hct (39.6-50.0) % MCHC (32.0-37.0) g/dL RDW (11.5-14.5) % Plt Count (140-440) X 10*3/uL Immature Plt Fraction (1.1-6.1) % Sodium (135-145) mmol/L Chloride (96-109) mmol/L Carbon Dioxide (20.0-27.5) mmol/L Anion Gap (10.00-18.00) mmol/L BUN (9.0-27.0) mg/dL Creatinine (0.6-1.5) mg/dL Est GFR (CKD-EPI)AfAm (60.0-200.0) Est GFR (CKD-EPI)NonAf (60.0-200.0) Glucose (70-110) mg/dL POC Glucose (mg/dL) 177 H 142 H 169 H (70-110) mg/dL Hemoglobin A1c (0.0-6.0) % Calcium (8.7-10.3) mg/dL 04/04/22 Range/Units 06:48 RBC (4.40-5.60) X 10*6/uL Hgb (13.0-17.0) g/dL Hct (39.6-50.0) % MCHC (32.0-37.0) g/dL RDW (11.5-14.5) % Plt Count (140-440) X 10*3/uL Immature Plt Fraction (1.1-6.1) % Sodium (135-145) mmol/L Chloride (96-109) mmol/L Carbon Dioxide (20.0-27.5) mmol/L Anion Gap (10.00-18.00) mmol/L BUN (9.0-27.0) mg/dL Creatinine (0.6-1.5) mg/dL Est GFR (CKD-EPI)AfAm (60.0-200.0) Est GFR (CKD-EPI)NonAf (60.0-200.0) Glucose (70-110) mg/dL POC Glucose (mg/dL) 147 H (70-110) mg/dL Hemoglobin A1c (0.0-6.0) % Calcium (8.7-10.3) mg/dL Microbiology - Last 24 Hours (Table) 04/02/22 17:00 Blood Culture - Preliminary Blood No Growth after 24 hours 04/02/22 17:15 Blood Culture - Preliminary Blood No Growth after 24 hours
[2022-04-04] MEDS ORDERED: NON FORMULARY DRUG (Lactose-Reduced Food [Ensure Plus] 237 ML Ml) PO SCH (09:00)
--- NOTE | 2022-04-04 09:53 | P.PN ---
Subjective Progress Note Date: 04/04/22 Patient had an episode of tachycardia with heart rate of 130 bpm, Lopressor was increased to 25 mg twice a day. Heart rate has been controlled since Echocardiogram showed a mildly decreased LV systolic function with an ejection fraction of 40-45%, mitral annular calcification with mild mitral regurgitation, mild pulmonary hypertension, moderate dilation of the aortic root. Repeat chest x-ray reveals basilar infiltrates and correlate for atelectasis and pulmonary edema Patient is seen resting comfortably in bed with no signs of acute distress, he has no complaints of chest pain or increased shortness of breath. Transition patient to oral Lasix. Patient is stable for discharge back to [facility]. Objective - Vital Signs Vital signs: Vital Signs Temp 98.4 F 04/04/22 08:00 Pulse 70 04/04/22 08:00 Resp 14 04/04/22 08:00 BP 124/76 04/04/22 08:00 Pulse Ox 98 04/04/22 08:00 FiO2 Intake & Output 04/03/22 04/04/22 04/04/22 18:59 06:59 18:59 Intake Total 200 Output Total 2100 1700 Balance -1900 -1700 Intake: Oral 200 Output: Urine 2100 1700 Other: Voiding Method Indwelling Catheter Indwelling Catheter - Exam PHYSICAL EXAM: VITAL SIGNS: Reviewed. GENERAL: Well-developed in no acute distress. HEENT: Head is normocephalic. Pupils are equal, round. Sclerae anicteric. Mucous membranes of the mouth are moist. NECK: Supple. No JVD or thyromegaly RESPIRATORY: Respirations even and unlabored. Lungs diminished to auscultation bilaterally. CARDIO: irregular rate and rhythm. EXTREMITIES: Normal range of motion. No clubbing or cyanosis. Peripheral pulses intact. Negative for bilateral lower extremity edema NEURO: Orientated to person, time, mood is appropriate - Labs CBC & Chem 7: 04/04/22 08:10 04/03/22 06:36 Labs: Abnormal Lab Results - Last 24 Hours (Table) 04/03/22 04/03/22 04/03/22 Range/Units 06:36 06:36 06:36 RBC 2.48 L (4.40-5.60) X 10*6/uL Hgb 6.9 L* (13.0-17.0) g/dL Hct 24.0 L (39.6-50.0) % MCHC 28.8 L (32.0-37.0) g/dL RDW 16.1 H (11.5-14.5) % Plt Count 80 L (140-440) X 10*3/uL Immature Plt Fraction 14.0 H (1.1-6.1) % Sodium 149 H (135-145) mmol/L Chloride 110 H (96-109) mmol/L Carbon Dioxide 29.6 H (20.0-27.5) mmol/L Anion Gap 9.40 L (10.00-18.00) mmol/L BUN 33.5 H (9.0-27.0) mg/dL Creatinine 1.8 H (0.6-1.5) mg/dL Est GFR (CKD-EPI)AfAm 38.4 L (60.0-200.0) Est GFR (CKD-EPI)NonAf 33.1 L (60.0-200.0) Glucose 127 H (70-110) mg/dL POC Glucose (mg/dL) (70-110) mg/dL Hemoglobin A1c 7.0 H (0.0-6.0) % Calcium 8.1 L (8.7-10.3) mg/dL 04/03/22 04/03/22 04/03/22 Range/Units 13:42 16:15 20:30 RBC (4.40-5.60) X 10*6/uL Hgb (13.0-17.0) g/dL Hct (39.6-50.0) % MCHC (32.0-37.0) g/dL RDW (11.5-14.5) % Plt Count (140-440) X 10*3/uL Immature Plt Fraction (1.1-6.1) % Sodium (135-145) mmol/L Chloride (96-109) mmol/L Carbon Dioxide (20.0-27.5) mmol/L Anion Gap (10.00-18.00) mmol/L BUN (9.0-27.0) mg/dL Creatinine (0.6-1.5) mg/dL Est GFR (CKD-EPI)AfAm (60.0-200.0) Est GFR (CKD-EPI)NonAf (60.0-200.0) Glucose (70-110) mg/dL POC Glucose (mg/dL) 177 H 142 H 169 H (70-110) mg/dL Hemoglobin A1c (0.0-6.0) % Calcium (8.7-10.3) mg/dL 04/04/22 04/04/22 Range/Units 06:48 08:10 RBC 2.75 L (4.40-5.60) X 10*6/uL Hgb 7.8 L (13.0-17.0) g/dL Hct 25.9 L (39.6-50.0) % MCHC 30.1 L (32.0-37.0) g/dL RDW 16.3 H (11.5-14.5) % Plt Count 88 L (140-440) X 10*3/uL Immature Plt Fraction (1.1-6.1) % Sodium (135-145) mmol/L Chloride (96-109) mmol/L Carbon Dioxide (20.0-27.5) mmol/L Anion Gap (10.00-18.00) mmol/L BUN (9.0-27.0) mg/dL Creatinine (0.6-1.5) mg/dL Est GFR (CKD-EPI)AfAm (60.0-200.0) Est GFR (CKD-EPI)NonAf (60.0-200.0) Glucose (70-110) mg/dL POC Glucose (mg/dL) 147 H (70-110) mg/dL Hemoglobin A1c (0.0-6.0) % Calcium (8.7-10.3) mg/dL Microbiology - Last 24 Hours (Table) 04/02/22 17:00 Blood Culture - Preliminary Blood No Growth after 24 hours 04/02/22 17:15 Blood Culture - Preliminary Blood No Growth after 24 hours Assessment and Plan Assessment: Acute on chronic diastolic congestive heart failure Lower extremity edema Permanent atrial fibrillation Hypertension Chronic kidney disease Atypical pneumonia Plan: Transitioned to oral diuretics Echocardiogram obtained and reviewed Continue with telemetry monitoring Continue with accurate I's and O's and daily weights Patient is clear for discharge to [facility] The above impression and plan of care have been discussed and directed by the signing physician. Ellen Bhakta, nurse practitioner, acting as scribe for signing physician.
[2022-04-04] MEDS: HEPARIN SODIUM,PORCINE/PF 5,000 UNIT/0.5 ML SYRINGE SQ SCH ×2 (10:49→23:03)
[2022-04-04 11:12] LABS: Glucose,Whole Blood 161 mg/dL (70-110)
[2022-04-04 13:51] VITALS: BMI 28.5
[2022-04-04 16:49] LABS: Glucose,Whole Blood 165 mg/dL (70-110)
[2022-04-04 21:54] LABS: Glucose,Whole Blood 136 mg/dL (70-110)
[2022-04-04] MEDS: SERTRALINE 50 MG TAB PO SCH (23:02)
[2022-04-04] MEDS: METOPROLOL TARTRATE 25 MG TAB PO SCH (23:02)
[2022-04-05] MEDS: PANTOPRAZOLE 40 MG TABLET PO SCH (06:16)
[2022-04-05 06:55] LABS: Glucose,Whole Blood 132 mg/dL (70-110)
[2022-04-05] MEDS: INSULIN ASPART (NovoLOG) 100 UNIT/ML VIAL SQ SCH ×3 (07:25→18:43)
[2022-04-05] MEDS: METOPROLOL TARTRATE 25 MG TAB PO SCH ×2 (07:31→09:19)
[2022-04-05 08:09] VITALS: RESP 16
[2022-04-05] MEDS: FERROUS SULFATE 325 MG TAB PO SCH (08:34)
[2022-04-05] MEDS: allopurinoL 100 MG TAB PO SCH (08:34)
[2022-04-05] MEDS: MULTIVITAMINS, THERA LIQUID 237 ML BOTTLE PO SCH (08:34)
[2022-04-05] MEDS: FUROSEMIDE 40 MG TAB PO SCH ×2 (08:34→18:43)
[2022-04-05] MEDS: HEPARIN SODIUM,PORCINE/PF 5,000 UNIT/0.5 ML SYRINGE SQ SCH (08:34)
--- NOTE | 2022-04-05 10:27 | P.PN ---
Subjective Progress Note Date: 04/05/22 Patient is resting comfortably in bed with no signs of acute distress, he has no complaints of chest pain or increased shortness of breath. Patient continues on oral Lasix. Patient's heart rate increased into the 130s this morning, beta tariq was held. Beta tariq has been given, heart rate is now controlled. Before holding beta tariq verify pulse with telemetry and manual pulse rate. Continue with current dose of Lopressor. Patient is stable for discharge back to [facility] today . Objective - Vital Signs Vital signs: Vital Signs Temp 98 F 04/05/22 08:08 Pulse 64 04/05/22 08:08 Resp 16 04/05/22 08:08 BP 97/55 04/05/22 08:08 Pulse Ox 98 04/05/22 08:08 FiO2 Intake & Output 04/04/22 04/05/22 04/05/22 18:59 06:59 18:59 Intake Total 800 Output Total 1600 Balance 800 -1600 Weight 84 kg Intake: Oral 800 Output: Urine 1600 Other: Voiding Method Indwelling Catheter Indwelling Catheter - Exam PHYSICAL EXAM: VITAL SIGNS: Reviewed. GENERAL: Well-developed in no acute distress. HEENT: Head is normocephalic. Pupils are equal, round. Sclerae anicteric. Mucous membranes of the mouth are moist. NECK: Supple. No JVD or thyromegaly RESPIRATORY: Respirations even and unlabored. Lungs diminished to auscultation bilaterally. CARDIO: irregular rate and rhythm. EXTREMITIES: Normal range of motion. No clubbing or cyanosis. Peripheral pulses intact. Negative for bilateral lower extremity edema NEURO: Orientated to person, time, mood is appropriate - Labs CBC & Chem 7: 04/04/22 08:10 04/03/22 06:36 Labs: Abnormal Lab Results - Last 24 Hours (Table) 04/04/22 04/04/22 04/04/22 Range/Units 11:10 16:47 21:52 POC Glucose (mg/dL) 161 H 165 H 136 H (70-110) mg/dL 04/05/22 Range/Units 06:53 POC Glucose (mg/dL) 132 H (70-110) mg/dL Microbiology - Last 24 Hours (Table) 04/02/22 17:00 Blood Culture - Preliminary Blood No Growth after 48 hours 04/02/22 17:15 Blood Culture - Preliminary Blood No Growth after 48 hours Assessment and Plan Assessment: Acute on chronic diastolic congestive heart failure Lower extremity edema Permanent atrial fibrillation Hypertension Chronic kidney disease Atypical pneumonia Plan: Continue with current dose of Lopressor continue withoral diuretics Echocardiogram obtained and reviewed Continue with telemetry monitoring Continue with accurate I's and O's and daily weights Patient is clear for discharge to [facility] The above impression and plan of care have been discussed and directed by the signing physician. Ellen Bhakta, nurse practitioner, acting as scribe for signing physician.
[2022-04-05 11:55] LABS: Glucose,Whole Blood 144 mg/dL (70-110)
[2022-04-05 14:46] VITALS: TEMP 97.8
[2022-04-05 15:13] VITALS: BP 97/59
[2022-04-05 15:15] VITALS: PULSE 76
[2022-04-05 16:59] LABS: Glucose,Whole Blood 208 mg/dL (70-110)
[2022-04-07] MEDS ORDERED: DARBEPOETIN ALFA 40 MCG/0.4 ML SYRINGE SQ SCH (09:00)
== END 2022-04-05 18:39 | DRG 291 ==
LOC: EC 16:37 → 4SSUR 19:00
PROVIDERS: ADMIT Internal Medicine; ATTEND Internal Medicine
DX: I13.0 Hypertensive heart and chronic kidney disease with heart failure and stage 1 through stage 4 chronic kidney disease, or unspecified chronic kidney disease (principal); I50.43 Acute on chronic combined systolic (congestive) and diastolic (congestive) heart failure; J96.11 Chronic respiratory failure with hypoxia; I48.21 Permanent atrial fibrillation; F33.9 Major depressive disorder, recurrent, unspecified; D69.6 Thrombocytopenia, unspecified; I27.20 Pulmonary hypertension, unspecified; D63.1 Anemia in chronic kidney disease; E11.22 Type 2 diabetes mellitus with diabetic chronic kidney disease; G20 Parkinson's disease; G30.9 Alzheimer's disease, unspecified; F02.80 Dementia in other diseases classified elsewhere, unspecified severity, without behavioral disturbance, psychotic disturbance, mood disturbance, and anxiety; N18.30 Chronic kidney disease, stage 3 unspecified; I77.810 Thoracic aortic ectasia; J44.9 Chronic obstructive pulmonary disease, unspecified; Z20.822 Contact with and (suspected) exposure to COVID-19; I34.0 Nonrheumatic mitral (valve) insufficiency; N40.1 Benign prostatic hyperplasia with lower urinary tract symptoms; R33.8 Other retention of urine; F41.1 Generalized anxiety disorder; H54.61 Unqualified visual loss, right eye, normal vision left eye; M1A.9XX0 Chronic gout, unspecified, without tophus (tophi); M13.0 Polyarthritis, unspecified; J30.2 Other seasonal allergic rhinitis; H91.90 Unspecified hearing loss, unspecified ear; M48.56XS Collapsed vertebra, not elsewhere classified, lumbar region, sequela of fracture; Z79.84 Long term (current) use of oral hypoglycemic drugs; Z79.899 Other long term (current) drug therapy; Z90.5 Acquired absence of kidney; Z85.841 Personal history of malignant neoplasm of brain; Z87.01 Personal history of pneumonia (recurrent); Z92.3 Personal history of irradiation; Z87.891 Personal history of nicotine dependence; Z87.440 Personal history of urinary (tract) infections; Z82.0 Family history of epilepsy and other diseases of the nervous system; Z82.49 Family history of ischemic heart disease and other diseases of the circulatory system
CPT/HCPCS: 36415; 71045; 71046; 80048; 80053; 81001; 83036; 83605; 83735; 83880; 84484; 85025; 85027; 85610; 85730; 87040; 87502; 87635; 93005; 93306; 94760; 96361; 96372; 96374; 96376; 99285

== ENCOUNTER 2022-04-09 09:01 | Emergency (ER) | payer MEDICARE ==
[2022-04-09] MEDS ORDERED: SODIUM CHLORIDE 0.9% 1,000 ML IV STA (09:09)
[2022-04-09 09:11] VITALS: TEMP 98.3
--- NOTE | 2022-04-09 09:12 | ED ---
SOB HPI - General Stated Complaint: FABY Time Seen by Provider: 04/09/22 09:01 Source: EMS, RN notes reviewed, old records reviewed Mode of arrival: EMS - History of Present Illness Initial Comments: 87-year-old male with a history of multiple medical issues who resides in a group home who is here because of being found have hypoxemia this morning. He normally is on 2 L of oxygen was found to be without his oxygen on this morning. He has saturations were around 70-71%. No reports of fever chills nausea vomiting sweats or other symptoms he was sent for evaluation. - Related Data Home Medications Medication Instructions Recorded Confirmed Sertraline [Zoloft] 50 mg PO HS@209901/25/20 04/09/22 allopurinoL [Zyloprim] 100 mg PO HS@209901/25/20 04/09/22 Acetaminophen [Tylenol] 650 mg PO Q6H PRN 12/11/21 04/09/22 Ferrous Sulfate 330 mg PO BID@0900,209902/28/22 04/09/22 Multivitamins, Thera Liquid 5 ml PO DAILY@89902/28/22 04/09/22 [Theragran Liquid (formulary)] Nitroglycerin Sl Tabs [Nitrostat] 0.4 mg SUBLINGUAL Q5M PRN 02/28/22 04/09/22 Omeprazole 20 mg PO DAILY@59902/28/22 04/09/22 Collagenase [Santyl Ointment] 1 applic TOPICAL Q12H 04/02/22 04/09/22 Darbepoetin Ten [Aranesp] 40 mcg SQ BOATENG@89904/02/22 04/09/22 Lactose-Reduced Food [Ensure Plus] 1 can PO DAILY@89904/02/22 04/09/22 Dapagliflozin Propanediol [Farxiga] 5 mg PO DAILY@89904/09/22 04/09/22 Furosemide [Lasix] 40 mg PO BID@0600,1400 04/09/22 04/09/22 Metoprolol Tartrate [Lopressor] 25 mg PO BID@0900,209904/09/22 04/09/22 lisinopriL [Zestril] 2.5 mg PO DAILY@89904/09/22 04/09/22 Allergies Allergy/AdvReac Type Severity Reaction Status Date / Time No Known Allergies Allergy Verified 04/02/22 17:59 Review of Systems ROS Statement: Those systems with pertinent positive or pertinent negative responses have been documented in the HPI. ROS Other: All systems not noted in ROS Statement are negative. Past Medical History Past Medical History: Atrial Fibrillation, Cancer, COPD, Diabetes Mellitus, Eye Disorder, Hearing Disorder / Deafness, Hypertension, Pneumonia, Prostate Disorder, Renal Disease Additional Past Medical History / Comment(s): Pt recently admitted to [facility] on 01/25/20 with a mechanical fall/hematoma R buttock and acute blood loss anemia. Other hx: 2010 Brain cancer with surgery and radiation, L nephrectomy d/t deteriorating kidney, CKD stage III, BPH, chronic thrombocytopenia, chronic anemia, diet controlled diabetes, generalized arthritis, L2 compression fracture, blind R eye, ASA'CARSARMIUT blaterally, seasonal allergies. 05/14/21 admitted with abdominal hematoma History of Any Multi-Drug Resistant Organisms: None Reported Past Surgical History: No Surgical Hx Reported Additional Past Surgical History / Comment(s): L nephrectomy, brain tumor removal, bilateral cataract removals, colonoscopy. Past Anesthesia/Blood Transfusion Reactions: No Reported Reaction Additional Past Anesthesia/Blood Transfusion Reaction / Comment(s): Pt has received blood in past without reaction. Past Psychological History: Depression Smoking Status: Former smoker Past Alcohol Use History: None Reported Past Drug Use History: None Reported - Past Family History Father Family Medical History: No Reported History Additional Family Medical History / Comment(s): Father was healthy. He at the age of 62yrs in a MVA. Mother Additional Family Medical History / Comment(s): Mother at the age of 86yrs of "heart problems." Brother(s) Additional Family Medical History / Comment(s): Patient has 3 brothers and one is passed from old age. Patient has 4 sisters with no major medical problems. Patient had 2 children one from muscular dystrophy and one is alive with no major medical problems. General Exam - General Exam Comments Initial Comments: This is a well-developed well-nourished awake alert but confused male General appearance: alert, in no apparent distress Head exam: Present: atraumatic, normocephalic, normal inspection Eye exam: Present: normal appearance, PERRL, EOMI. Absent: scleral icterus, conjunctival injection, periorbital swelling ENT exam: Present: mucous membranes dry Neck exam: Present: normal inspection. Absent: tenderness, meningismus, lymphadenopathy Respiratory exam: Present: decreased breath sounds. Absent: respiratory distress, wheezes, rales, rhonchi, stridor Cardiovascular Exam: Present: regular rate, normal rhythm, normal heart sounds. Absent: systolic murmur, diastolic murmur, rubs, gallop, clicks GI/Abdominal exam: Present: soft, normal bowel sounds. Absent: distended, ten derness, guarding, rebound, rigid exam: Present: other (Chronic indwelling Ramirez no evidence of any infectious process) Extremities exam: Present: normal inspection, full ROM, normal capillary refill. Absent: tenderness, pedal edema, joint swelling, calf tenderness Back exam: Present: normal inspection Neurological exam: Present: alert, altered, CN II-XII intact Psychiatric exam: Present: normal mood, flat affect Skin exam: Present: warm, dry, intact, normal color. Absent: rash Course Vital Signs 04/09/22 04/09/22 04/09/22 09:06 09:12 12:30 Temperature 98.3 F Pulse Rate 91 90 Respiratory 20 22 Rate Blood Pressure 98/64 105/61 O2 Sat by Pulse 96 98 Oximetry 04/09/22 14:31 Temperature Pulse Rate 93 Respiratory 13 Rate Blood Pressure 121/68 O2 Sat by Pulse 97 Oximetry Medical Decision Making - Medical Decision Making Patient is awake alert with good pulse oximetry. I did discuss the case with Dr. Espinal patient is good to be discharged back to his facility - Lab Data Result diagrams: 04/09/22 09:21 04/09/22 09:21 Lab Results 04/09/22 04/09/22 04/09/22 Range/Units 09:21 09:21 09:21 WBC 6.8 (3.8-10.6) k/uL RBC 2.55 L (4.30-5.90) m/uL Hgb 7.3 L (13.0-17.5) gm/dL Hct 23.9 L (39.0-53.0) % MCV 93.7 (80.0-100.0) fL MCH 28.6 (25.0-35.0) pg MCHC 30.5 L (31.0-37.0) g/dL RDW 17.0 H (11.5-15.5) % Plt Count 105 L (150-450) k/uL MPV 13.4 Neutrophils % 60 % Lymphocytes % 32 % Monocytes % 5 % Eosinophils % 1 % Basophils % 0 % Neutrophils # 4.0 (1.3-7.7) k/uL Lymphocytes # 2.2 (1.0-4.8) k/uL Monocytes # 0.3 (0-1.0) k/uL Eosinophils # 0.1 (0-0.7) k/uL Basophils # 0.0 (0-0.2) k/uL Manual Slide Review Performed Hypochromasia Marked Anisocytosis Slight Sodium 147 H (137-145) mmol/L Potassium 3.5 (3.5-5.1) mmol/L Chloride 108 H (98-107) mmol/L Carbon Dioxide 31 H (22-30) mmol/L Anion Gap 8 mmol/L BUN 67 H (9-20) mg/dL Creatinine 2.18 H (0.66-1.25) mg/dL Est GFR (CKD-EPI)AfAm 30 (>60 ml/min/1.73 sqM) Est GFR (CKD-EPI)NonAf 26 (>60 ml/min/1.73 sqM) Glucose 157 H (74-99) mg/dL Plasma Lactic Acid Ralph (0.7-2.0) mmol/L Calcium 8.0 L (8.4-10.2) mg/dL Magnesium 1.6 (1.6-2.3) mg/dL Total Bilirubin 0.4 (0.2-1.3) mg/dL AST 24 (17-59) U/L ALT 21 (4-49) U/L Alkaline Phosphatase 91 (38-126) U/L Creatine Kinase 94 (55-170) U/L Troponin I (0.000-0.034) ng/mL Total Protein 5.8 L (6.3-8.2) g/dL Albumin 2.7 L (3.5-5.0) g/dL Urine Color Yellow Urine Appearance Clear (Clear) Urine pH 5.0 (5.0-8.0) Ur Specific Rye 1.015 (1.001-1.035) Urine Protein Trace H (Negative) Urine Glucose (UA) 3+ H (Negative) Urine Ketones Negative (Negative) Urine Blood Trace H (Negative) Urine Nitrite Negative (Negative) Urine Bilirubin Negative (Negative) Urine Urobilinogen <2.0 (<2.0) mg/dL Ur Leukocyte Esterase Small H (Negative) Urine RBC 2 (0-5) /hpf Urine WBC 3 (0-5) /hpf Ur Squamous Epith Cells <1 (0-4) /hpf Hyaline Casts 1 (0-2) /lpf Urine Mucus Rare H (None) /hpf 04/09/22 04/09/22 Range/Units 09:21 09:21 WBC (3.8-10.6) k/uL RBC (4.30-5.90) m/uL Hgb (13.0-17.5) gm/dL Hct (39.0-53.0) % MCV (80.0-100.0) fL MCH (25.0-35.0) pg MCHC (31.0-37.0) g/dL RDW (11.5-15.5) % Plt Count (150-450) k/uL MPV Neutrophils % % Lymphocytes % % Monocytes % % Eosinophils % % Basophils % % Neutrophils # (1.3-7.7) k/uL Lymphocytes # (1.0-4.8) k/uL Monocytes # (0-1.0) k/uL Eosinophils # (0-0.7) k/uL Basophils # (0-0.2) k/uL Manual Slide Review Hypochromasia Anisocytosis Sodium (137-145) mmol/L Potassium (3.5-5.1) mmol/L Chloride (98-107) mmol/L Carbon Dioxide (22-30) mmol/L Anion Gap mmol/L BUN (9-20) mg/dL Creatinine (0.66-1.25) mg/dL Est GFR (CKD-EPI)AfAm (>60 ml/min/1.73 sqM) Est GFR (CKD-EPI)NonAf (>60 ml/min/1.73 sqM) Glucose (74-99) mg/dL Plasma Lactic Acid Ralph 1.0 (0.7-2.0) mmol/L Calcium (8.4-10.2) mg/dL Magnesium (1.6-2.3) mg/dL Total Bilirubin (0.2-1.3) mg/dL AST (17-59) U/L ALT (4-49) U/L Alkaline Phosphatase (38-126) U/L Creatine Kinase (55-170) U/L Troponin I <0.012 (0.000-0.034) ng/mL Total Protein (6.3-8.2) g/dL Albumin (3.5-5.0) g/dL Urine Color Urine Appearance (Clear) Urine pH (5.0-8.0) Ur Specific Rye (1.001-1.035) Urine Protein (Negative) Urine Glucose (UA) (Negative) Urine Ketones (Negative) Urine Blood (Negative) Urine Nitrite (Negative) Urine Bilirubin (Negative) Urine Urobilinogen (<2.0) mg/dL Ur Leukocyte Esterase (Negative) Urine RBC (0-5) /hpf Urine WBC (0-5) /hpf Ur Squamous Epith Cells (0-4) /hpf Hyaline Casts (0-2) /lpf Urine Mucus (None) /hpf - EKG Data -: EKG Interpreted by Me EKG Comments: Atrial fibrillation rate 90 QRS 149 QT/QTC 387/435. The bundle-branch block complexes - Radiology Data Radiology results: report reviewed (Imaging shows evidence of some limited at the findings which appear to be on previous x-rays.), image reviewed Disposition Clinical Impression: Dehydration, COPD (chronic obstructive pulmonary disease), Hypoxia Disposition: HOME SELF-CARE Condition: Good Is patient prescribed a controlled substance at d/c from ED?: No Referrals: Wilfred Cazares MD [Primary Care Provider] - 1-2 days Decision Date: 04/09/22 Decision Time: 14:46
[2022-04-09 09:35] LABS: Appearance,Urine Clear (Clear); Bilirubin,Urine Negative (Negative); Blood,Urine Trace (Negative); Color,Urine Yellow; Glucose,Urine (UA) 3+ (Negative); Hyaline Casts,Urine 1 /lpf (0-2); Ketones,Urine Negative (Negative); Leukocyte Esterase,Urine Small (Negative); Mucus,Urine Rare /hpf; Nitrite,Urine Negative (Negative); Protein,Urine Trace (Negative); RBC,Urine 2 /hpf (0-5); Specific Gravity,Urine 1.015 (1.001-1.035); Squamous Epithelial Cell,Urine <1 /hpf (0-4); Urobilinogen,Urine <2.0 mg/dL (<2.0); WBC,Urine 3 /hpf (0-5)
[2022-04-09 09:37] LABS: Anisocytosis Slight; Basophils % (A) 0 %; Eosinophils # (A) 0.1 k/uL (0-0.7); Eosinophils % (A) 1 %; HCT 23.9 % (39.0-53.0); HGB 7.3 gm/dL (13.0-17.5); Hypochromasia Marked; Lymphocytes # (A) 2.2 k/uL (1.0-4.8); Lymphocytes % (A) 32 %; MCH 28.6 pg (25.0-35.0); MCHC 30.5 g/dL (31.0-37.0); MCV 93.7 fL (80.0-100.0); Mean Platelet Volume 13.4; Monocytes # (A) 0.3 k/uL (0-1.0); Monocytes % (A) 5 %; Neutrophils % (A) 60 %; RBC 2.55 m/uL (4.30-5.90); WBC 6.8 k/uL (3.8-10.6)
[2022-04-09 09:45] LABS: Albumin 2.7 g/dL (3.5-5.0); Magnesium 1.6 mg/dL (1.6-2.3); Potassium 3.5 mmol/L (3.5-5.1); Total Bilirubin 0.4 mg/dL (0.2-1.3); Total Protein 5.8 g/dL (6.3-8.2)
[2022-04-09 10:12] LABS: Platelet Count 105 k/uL (150-450)
--- NOTE | 2022-04-09 11:42 | XR ---
EXAMINATION TYPE: XR chest 2V DATE OF EXAM: 04/09/2022 9:54 AM COMPARISON: Chest radiographs from 04/03/2022. TECHNIQUE: XR chest 2V Frontal and lateral views of the chest. CLINICAL INDICATION:Male, 87 years old with history of Hypoxemia; FINDINGS: Lungs/Pleura: Scattered subtle reticular and hazy opacities lower lobes right greater than left.. No evidence of pneumothorax, focal consolidation or pleural effusion. Pulmonary vascularity: Unremarkable. Heart/mediastinum: Cardiomediastinal silhouette is prominent in size. Musculoskeletal: No acute osseous pathology. IMPRESSION: Subtle scattered opacities in the lower lobes most pronounced in the right lower lobe correlate for p neumonia..
[2022-04-09 16:54] VITALS: BP 115/73; PULSE 78; RESP 15
== END 2022-04-09 17:30 | disposition home or self-care (01) ==
LOC: EC 09:01
DX: J44.9 Chronic obstructive pulmonary disease, unspecified (principal); R09.02 Hypoxemia; E86.0 Dehydration; I48.91 Unspecified atrial fibrillation; E11.9 Type 2 diabetes mellitus without complications; I12.9 Hypertensive chronic kidney disease with stage 1 through stage 4 chronic kidney disease, or unspecified chronic kidney disease; N18.9 Chronic kidney disease, unspecified; F32.A Depression, unspecified; Z87.891 Personal history of nicotine dependence; Z79.899 Other long term (current) drug therapy
CPT/HCPCS: 36415; 71046; 80053; 81001; 82550; 83605; 83735; 84484; 85025; 93005; 96360; 96361; 99285

== ENCOUNTER 2022-04-26 21:00 | Inpatient (IN) | payer MEDICARE ==
[2022-04-26 21:12] LABS: Glucose,Whole Blood 266 mg/dL (70-110)
[2022-04-26] MEDS ORDERED: VANCOMYCIN IV PER PHARMACY 1 EACH MISC MISCELLANE PRN (21:26)
[2022-04-26] MEDS ORDERED: CEFEPIME 2 GM in SODIUM CHLORIDE 0.9% 100 ML IVPB STA (21:27)
[2022-04-26] MEDS: SODIUM CHLORIDE 0.9% 500 ML 500 ML IV SCH ×2 (21:43→22:13)
[2022-04-26] MEDS ORDERED: VANCOMYCIN 1,000 MG in SODIUM CHLORIDE 0.9% 250 ML IVPB ONE (22:00)
[2022-04-26 22:05] LABS: Lactic Acid, Venous 1.4 mmol/L (0.7-2.0)
[2022-04-26 22:05] LABS: Appearance,Urine Turbid (Clear); Bacteria,Urine Few /hpf; Bilirubin,Urine 1+ (Negative); Blood,Urine Negative (Negative); Color,Urine Yellow; Glucose,Urine (UA) Negative (Negative); Hyaline Casts,Urine 11 /lpf (0-2); Ketones,Urine Negative (Negative); Leukocyte Esterase,Urine Large (Negative); Mucus,Urine Occasional /hpf; Nitrite,Urine Negative (Negative); PH, Urine 8.5 (5.0-8.0); Protein,Urine 3+ (Negative); RBC,Urine 9 /hpf (0-5); Specific Gravity,Urine 1.018 (1.001-1.035); Squamous Epithelial Cell,Urine 2 /hpf (0-4); WBC,Urine 82 /hpf (0-5)
[2022-04-26 22:07] LABS: Calcium 7.4 mg/dL (8.4-10.2); Magnesium 1.8 mg/dL (1.6-2.3); Potassium 3.8 mmol/L (3.5-5.1); Total Bilirubin 0.1 mg/dL (0.2-1.3); Total Protein 4.6 g/dL (6.3-8.2)
[2022-04-26 22:08] LABS: Anisocytosis Slight; Basophils % (A) 0 %; Eosinophils # (A) 0.1 k/uL (0-0.7); Eosinophils % (A) 1 %; HCT 23.9 % (39.0-53.0); Hypochromasia Marked; Lymphocytes # (A) 1.7 k/uL (1.0-4.8); Lymphocytes % (A) 22 %; MCH 28.6 pg (25.0-35.0); MCHC 28.9 g/dL (31.0-37.0); MCV 99.1 fL (80.0-100.0); Macrocytosis Slight; Mean Platelet Volume 14.2; Monocytes # (A) 0.3 k/uL (0-1.0); Monocytes % (A) 4 %; Neutrophils # (A) 5.8 k/uL (1.3-7.7); Neutrophils % (A) 72 %; Platelet Count 102 k/uL (150-450); RBC 2.42 m/uL (4.30-5.90); RDW 18.1 % (11.5-15.5)
[2022-04-26 22:09] LABS: Amphetamine Screen,Urine Not Detected (NotDetected); Barbiturate Screen,Urine Not Detected (NotDetected); Benzodiazepines Screen,Urine Not Detected (NotDetected); Cocaine Screen,Urine Not Detected (NotDetected); Methadone Screen, Urine Not Detected (NotDetected); Opiate Screen,Urine Not Detected (NotDetected); Oxycodone Screen, Urine Not Detected (NotDetected); Phencyclidine Screen,Urine Not Detected (NotDetected); Tricyclic Antidepressant,Urine Not Detected (NotDetected); Urn Cannabinoid Scrn Not Detected (NotDetected)
[2022-04-26 22:10] LABS: INR 1.1 (<1.2); Partial Thromboplastin Time 27.3 sec (22.0-30.0); Prothrombin Time 11.9 sec (9.0-12.0)
--- NOTE | 2022-04-26 22:12 | ED ---
General Adult HPI - General Chief complaint: Weakness Stated complaint: Hypotension Time Seen by Provider: 04/26/22 21:20 Source: EMS, RN notes reviewed, old records reviewed Mode of arrival: EMS Limitations: physical limitation - History of Present Illness Initial comments: Patient is an 87-year-old male who presents from a nursing facility. Has been having more mental decline over the last 3 days per EMS. Staff at the facility were struggling to provide his baseline for the patient. He currently is alert and oriented 2-3. They're concerned for maybe mild left-sided facial droop onset unknown time. Patient is also hypotensive. Baseline is on 4 L nasal cannula. His Ramirez catheter dependent. Presents for further evaluation of this time. Patient currently has no acute complaints. Is uncertain why he is here. Denies abdominal pain, chest pain. Denies any fevers, chills, cough. Denies any shortness of breath. Patient's Ramirez catheter does have dark urine that appears infected. Has a history of atrial fibrillation for which she is in A. fib at this time. Does not appear is still on blood thinners. Presents for further evaluation at this time. Patient is a limited historian. - Related Data Home Medications Medication Instructions Recorded Confirmed Sertraline [Zoloft] 50 mg PO HS@209901/25/20 04/26/22 allopurinoL [Zyloprim] 100 mg PO HS@209901/25/20 04/26/22 Acetaminophen [Tylenol] 650 mg PO Q6H PRN 12/11/21 04/26/22 Ferrous Sulfate 330 mg PO BID@09,209902/28/22 04/26/22 Multivitamins, Thera Liquid 5 ml PO DAILY@89902/28/22 04/26/22 [Theragran Liquid (formulary)] Nitroglycerin Sl Tabs [Nitrostat] 0.4 mg SUBLINGUAL Q5M PRN 02/28/22 04/26/22 Omeprazole 20 mg PO DAILY@59902/28/22 04/26/22 Collagenase [Santyl Ointment] 1 applic TOPICAL Q12H 04/02/22 04/26/22 Darbepoetin Ten [Aranesp] 40 mcg SQ FR@209904/02/22 04/26/22 Lactose-Reduced Food [Ensure Plus] 1 can PO DAILY@0900 04/02/22 04/26/22 Dapagliflozin Propanediol [Farxiga] 5 mg PO DAILY@0900 04/09/22 04/26/22 Furosemide [Lasix] 40 mg PO BID@0600,1400 04/09/22 04/26/22 Metoprolol Tartrate [Lopressor] 25 mg PO BID@0900,2100 04/09/22 04/26/22 lisinopriL [Zestril] 2.5 mg PO DAILY@0900 PRN 04/26/22 04/26/22 Allergies Allergy/AdvReac Type Severity Reaction Status Date / Time No Known Allergies Allergy Verified 04/26/22 23:15 Review of Systems ROS Statement: Those systems with pertinent positive or pertinent negative responses have been documented in the HPI. ROS Other: All systems not noted in ROS Statement are negative. Past Medical History Past Medical History: Atrial Fibrillation, Cancer, COPD, Diabetes Mellitus, Eye Disorder, Hearing Disorder / Deafness, Hypertension, Pneumonia, Prostate Disorder, Renal Disease Additional Past Medical History / Comment(s): Pt recently admitted to [facility] on 01/25/20 with a mechanical fall/hematoma R buttock and acute blood loss anemia. Other hx: 2010 Brain cancer with surgery and radiation, L nephrectomy d/t deteriorating kidney, CKD stage III, BPH, chronic thrombocytopenia, chronic anemia, diet controlled diabetes, generalized arthritis, L2 compression fract ure, blind R eye, [place] blaterally, seasonal allergies. 05/14/21 admitted with abdominal hematoma History of Any Multi-Drug Resistant Organisms: None Reported Past Surgical History: No Surgical Hx Reported Additional Past Surgical History / Comment(s): L nephrectomy, brain tumor removal, bilateral cataract removals, colonoscopy. Past Anesthesia/Blood Transfusion Reactions: No Reported Reaction Additional Past Anesthesia/Blood Transfusion Reaction / Comment(s): Pt has recei marques blood in past without reaction. Past Psychological History: Depression Smoking Status: Former smoker Past Alcohol Use History: None Reported Past Drug Use History: None Reported - Past Family History Father Family Medical History: No Reported History Additional Family Medical History / Comment(s): Father was healthy. He at the age of 62yrs in a MVA. Mother Additional Family Medical History / Comment(s): Mother at the age of 86yrs of "heart problems." Brother(s) Additional Family Medical History / Comment(s): Patient has 3 brothers and one is passed from old age. Patient has 4 sisters with no major medical problems. Patient had 2 children one from muscular dystrophy and one is alive with no major medical problems. General Exam - General Exam Comments Initial Comments: General: Appears dehydrated. HEAD: Normal with no signs of head trauma. EYES: PERRLA, EOMI, conjunctiva normal, no discharge. ENT: Hearing grossly intact, normal oropharynx. Dry mucous membranes. RESPIRATORY: Clear breath sounds bilaterally. No wheezes, rales, or rhonchi. On baseline 4 L nasal cannula. Not hypoxic. No increased work of breathing. C/V: Tachycardic. S1 and S2 auscultated. Peripheral pulses 2+ intact throughout. No peripheral edema. ABD: Abd is soft, nontender, nondistended EXT: Normal range of motion, no obvious deformity SKIN: Possible developing stage I decubitus ulcer located over the sacrum. NEURO: Alert and oriented 2-3. Cranial nerves II through XII appear to be intact. Possible mild left-sided facial drooping at rest which is resolved with movement. Unknown chronicity. No other focal neurological deficits. NIH appears to be 0 otherwise. GCS is 15. Moving all 4 extremities without difficulty. Limitations: physical limitation Course Vital Signs 04/26/22 04/26/22 04/27/22 21:02 23:28 00:39 Temperature 98.5 F Pulse Rate 112 H 99 94 Respiratory 22 20 22 Rate Blood Pressure 88/51 102/78 92/62 O2 Sat by Pulse 100 100 Oximetry Procedures - Sepsis Sepsis Focused Exam #1 Time Sepsis Criteria Met: 21:25 Sepsis Focused Exam Date: 04/27/22 Sepsis Focused Exam Time: 23:59 Sepsis Focused Exam Complete: Yes Vital Signs & RN Notes Reviewed: Yes Capillary Refill: < 2 Seconds: Fingers, Toes Peripheral Pulses: Normal: Radial (R), Radial (L) Skin Color: Normal for Patient Respiratory Exam: normal lung sounds Cardiovascular Exam: regular rate, irregular rhythm Medical Decision Making - Medical Decision Making Based on the patient's presentation and physical exam, I'm concerned regarding sepsis, with start time of 2124. Patient presents hypotensive, tachycardiac. Source is likely urine but unknown for sure. We'll obtain blood cultures, lactic acid, infectious workup. EKG, chest x-ray, CT brain also be obtained. Patiently empirically started on broad-spectrum antibiotics, vancomycin, cefepime. He appears dehydrated and will be administered 2 L fluid bolus and started on 130 mL an hour normal saline. Patient is afebrile. No respiratory distress. We'll test him for Covid. He was in agreement with this plan. 2 large bore IVs will be obtained.Ramirez catheter will be replaced. EKG shows atrial fibrillation with acceptable rate. Chronic left bundle branch block. No acute findings of ischemia. Chronic findings seen. Chest x-ray shows possible early pneumonia. We'll send off BNP. CT brain shows no acute intracranial process. Chronic findings. Laboratory studies are remarkable for a normocytic anemia with a hemoglobin of 6.9. Patient is chronically anemic typically ranging anywhere from his current level of 28. No longer on blood thinners. Patient is hypernatremic to 162 and hyperchloremic 132 with a secondary to dehydration, including BUN of 97 and creatinine of 3.48. Patient is an CARRIE. Troponin is indeterminate. Urinalysis is concerning for UTI with leukocyte esterase large, WBC of 82. Occult blood is positive. Covid is negative. UDS is negative. Patient's vital signs are improving. Blood pressure is improved from low 80s systolic to 102/78. He remains hemodynamically stable otherwise. No respiratory distress. I talked with family members are at bedside and updated them as well as the patient. We will continue antibiotic therapy. He will continue IV hydration over concern for dehydration. In terms of the ascitic anemia with concern for GI bleed, patient will be given a dose of Protonix. Rashel yaya states he has not been on blood thinners previously. He has no complaints. They have noticed loose stool at the facility. He does have an episode of loose stool here and it appears brown. No dark tarry stools. We'll send off for C. diff analysis as well. Patient has no abdominal pain. Resting comfortably in bed at this time. He'll be given 1 unit of packed red blood cells and we'll monitor the hemoglobin. [facility] I spoke with on-call surgery, Dr. Lemos who agreed to evaluate the patient for the suspected GI bleed. Dr. Cazares was contacted for the admission at 2321. Patient will be admitted to stepdown in serious condition. Spoke with Dr. Cazares at approximately 0230 who was in agreement with the plan. - Lab Data Result diagrams: 04/26/22 21:42 04/26/22 21:42 Lab Results 04/26/22 04/26/22 04/26/22 Range/Units 21:09 21:26 21:26 WBC (3.8-10.6) k/uL RBC (4.30-5.90) m/uL Hgb (13.0-17.5) gm/dL Hct (39.0-53.0) % MCV (80.0-100.0) fL MCH (25.0-35.0) pg MCHC (31.0-37.0) g/dL RDW (11.5-15.5) % Plt Count (150-450) k/uL MPV Neutrophils % % Lymphocytes % % Monocytes % % Eosinophils % % Basophils % % Neutrophils # (1.3-7.7) k/uL Lymphocytes # (1.0-4.8) k/uL Monocytes # (0-1.0) k/uL Eosinophils # (0-0.7) k/uL Basophils # (0-0.2) k/uL Hypochromasia Anisocytosis Macrocytosis PT (9.0-12.0) sec INR (<1.2) APTT (22.0-30.0) sec Sodium (137-145) mmol/L Potassium (3.5-5.1) mmol/L Chloride (98-107) mmol/L Carbon Dioxide (22-30) mmol/L Anion Gap mmol/L BUN (9-20) mg/dL Creatinine (0.66-1.25) mg/dL Est GFR (CKD-EPI)AfAm (>60 ml/min/1.73 sqM) Est GFR (CKD-EPI)NonAf (>60 ml/min/1.73 sqM) Glucose (74-99) mg/dL POC Glucose (mg/dL) 266 H (70-110) mg/dL POC Glu Thread Winder ID Yvon Givens Plasma Lactic Acid Ralph (0.7-2.0) mmol/L Calcium (8.4-10.2) mg/dL Magnesium (1.6-2.3) mg/dL Total Bilirubin (0.2-1.3) mg/dL AST (17-59) U/L ALT (4-49) U/L Alkaline Phosphatase (38-126) U/L Ammonia (<30) umol/L Troponin I (0.000-0.034) ng/mL NT-Pro-B Natriuret Pep pg/mL Total Protein (6.3-8.2) g/dL Albumin (3.5-5.0) g/dL Urine Color Yellow Urine Appearance Turbid (Clear) Urine pH 8.5 H (5.0-8.0) Ur Specific [place] 1.018 (1.001-1.035) Urine Protein 3+ H (Negative) Urine Glucose (UA) Negative (Negative) Urine Ketones Negative (Negative) Urine Blood Negative (Negative) Urine Nitrite Negative (Negative) Urine Bilirubin 1+ H (Negative) Urine Urobilinogen 2.0 (<2.0) mg/dL Ur Leukocyte Esterase Large H (Negative) Urine RBC 9 H (0-5) /hpf Urine WBC 82 H (0-5) /hpf Ur Squamous Epith Cells 2 (0-4) /hpf Urine Bacteria Few H (None) /hpf Hyaline Casts 11 H (0-2) /lpf Urine Mucus Occasional H (None) /hpf Stool Occult Blood (Negative) Urine Opiates Screen (NotDetected) Ur Oxycodone Screen (NotDetected) Urine Methadone Screen (NotDetected) Ur Propoxyphene Screen (NotDetected) Ur Barbiturates Screen (NotDetected) U Tricyclic Antidepress (NotDetected) Ur Phencyclidine Scrn (NotDetected) Ur Amphetamines Screen (NotDetected) U Methamphetamines Scrn (NotDetected) U Benzodiazepines Scrn (NotDetected) Urine Cocaine Screen (NotDetected) U Marijuana (THC) Screen (NotDetected) Coronavirus (PCR) Not Detected (Not Detectd) Blood Type Blood Type Recheck Bld Type Recheck Status Antibody Screen Crossmatch Spec Expiration Date 04/26/22 04/26/22 04/26/22 Range/Units 21:26 21:42 21:42 WBC 8.0 (3.8-10.6) k/uL RBC 2.42 L (4.30-5.90) m/uL Hgb 6.9 L* (13.0-17.5) gm/dL Hct 23.9 L (39.0-53.0) % MCV 99.1 (80.0-100.0) fL MCH 28.6 (25.0-35.0) pg MCHC 28.9 L (31.0-37.0) g/dL RDW 18.1 H (11.5-15.5) % Plt Count 102 L (150-450) k/uL MPV 14.2 Neutrophils % 72 % Lymphocytes % 22 % Monocytes % 4 % Eosinophils % 1 % Basophils % 0 % Neutrophils # 5.8 (1.3-7.7) k/uL Lymphocytes # 1.7 (1.0-4.8) k/uL Monocytes # 0.3 (0-1.0) k/uL Eosinophils # 0.1 (0-0.7) k/uL Basophils # 0.0 (0-0.2) k/uL Hypochromasia Marked Anisocytosis Slight Macrocytosis Slight PT 11.9 (9.0-12.0) sec INR 1.1 (<1.2) APTT 27.3 (22.0-30.0) sec Sodium (137-145) mmol/L Potassium (3.5-5.1) mmol/L Chloride (98-107) mmol/L Carbon Dioxide (22-30) mmol/L Anion Gap mmol/L BUN (9-20) mg/dL Creatinine (0.66-1.25) mg/dL Est GFR (CKD-EPI)AfAm (>60 ml/min/1.73 sqM) Est GFR (CKD-EPI)NonAf (>60 ml/min/1.73 sqM) Glucose (74-99) mg/dL POC Glucose (mg/dL) (70-110) mg/dL POC Glu Thread Winder ID Plasma Lactic Acid Ralph (0.7-2.0) mmol/L Calcium (8.4-10.2) mg/dL Magnesium (1.6-2.3) mg/dL Total Bilirubin (0.2-1.3) mg/dL AST (17-59) U/L ALT (4-49) U/L Alkaline Phosphatase (38-126) U/L Ammonia (<30) umol/L Troponin I (0.000-0.034) ng/mL NT-Pro-B Natriuret Pep pg/mL Total Protein (6.3-8.2) g/dL Albumin (3.5-5.0) g/dL Urine Color Urine Appearance (Clear) Urine pH (5.0-8.0) Ur Specific [place] (1.001-1.035) Urine Protein (Negative) Urine Glucose (UA) (Negative) Urine Ketones (Negative) Urine Blood (Negative) Urine Nitrite (Negative) Urine Bilirubin (Negative) Urine Urobilinogen (<2.0) mg/dL Ur Leukocyte Esterase (Negative) Urine RBC (0-5) /hpf Urine WBC (0-5) /hpf Ur Squamous Epith Cells (0-4) /hpf Urine Bacteria (None) /hpf Hyaline Casts (0-2) /lpf Urine Mucus (None) /hpf Stool Occult Blood (Negative) Urine Opiates Screen Not Detected (NotDetected) Ur Oxycodone Screen Not Detected (NotDetected) Urine Methadone Screen Not Detected (NotDetected) Ur Propoxyphene Screen Not Detected (NotDetected) Ur Barbiturates Screen Not Detected (NotDetected) U Tricyclic Antidepress Not Detected (NotDetected) Ur Phencyclidine Scrn Not Detected (NotDetected) Ur Amphetamines Screen Not Detected (NotDetected) U Methamphetamines Scrn Not Detected (NotDetected) U Benzodiazepines Scrn Not Detected (NotDetected) Urine Cocaine Screen Not Detected (NotDetected) U Marijuana (THC) Screen Not Detected (NotDetected) Coronavirus (PCR) (Not Detectd) Blood Type Blood Type Recheck Bld Type Recheck Status Antibody Screen Crossmatch Spec Expiration Date 04/26/22 04/26/22 04/26/22 Range/Units 21:42 21:42 21:42 WBC (3.8-10.6) k/uL RBC (4.30-5.90) m/uL Hgb (13.0-17.5) gm/dL Hct (39.0-53.0) % MCV (80.0-100.0) fL MCH (25.0-35.0) pg MCHC (31.0-37.0) g/dL RDW (11.5-15.5) % Plt Count (150-450) k/uL MPV Neutrophils % % Lymphocytes % % Monocytes % % Eosinophils % % Basophils % % Neutrophils # (1.3-7.7) k/uL Lymphocytes # (1.0-4.8) k/uL Monocytes # (0-1.0) k/uL Eosinophils # (0-0.7) k/uL Basophils # (0-0.2) k/uL Hypochromasia Anisocytosis Macrocytosis PT (9.0-12.0) sec INR (<1.2) APTT (22.0-30.0) sec Sodium 162 H* (137-145) mmol/L Potassium 3.8 (3.5-5.1) mmol/L Chloride 132 H* (98-107) mmol/L Carbon Dioxide 22 (22-30) mmol/L Anion Gap 8 mmol/L BUN 97 H (9-20) mg/dL Creatinine 3.48 H (0.66-1.25) mg/dL Est GFR (CKD-EPI)AfAm 17 (>60 ml/min/1.73 sqM) Est GFR (CKD-EPI)NonAf 15 (>60 ml/min/1.73 sqM) Glucose 245 H (74-99) mg/dL POC Glucose (mg/dL) (70-110) mg/dL POC Glu Thread Winder ID Plasma Lactic Acid Ralph 1.4 (0.7-2.0) mmol/L Calcium 7.4 L (8.4-10.2) mg/dL Magnesium 1.8 (1.6-2.3) mg/dL Total Bilirubin 0.1 L (0.2-1.3) mg/dL AST 11 L (17-59) U/L ALT 9 (4-49) U/L Alkaline Phosphatase 75 (38-126) U/L Ammonia <9 (<30) umol/L Troponin I 0.022 (0.000-0.034) ng/mL NT-Pro-B Natriuret Pep pg/mL Total Protein 4.6 L (6.3-8.2) g/dL Albumin 2.0 L (3.5-5.0) g/dL Urine Color Urine Appearance (Clear) Urine pH (5.0-8.0) Ur Specific [place] (1.001-1.035) Urine Protein (Negative) Urine Glucose (UA) (Negative) Urine Ketones (Negative) Urine Blood (Negative) Urine Nitrite (Negative) Urine Bilirubin (Negative) Urine Urobilinogen (<2.0) mg/dL Ur Leukocyte Esterase (Negative) Urine RBC (0-5) /hpf Urine WBC (0-5) /hpf Ur Squamous Epith Cells (0-4) /hpf Urine Bacteria (None) /hpf Hyaline Casts (0-2) /lpf Urine Mucus (None) /hpf Stool Occult Blood (Negative) Urine Opiates Screen (NotDetected) Ur Oxycodone Screen (NotDetected) Urine Methadone Screen (NotDetected) Ur Propoxyphene Screen (NotDetected) Ur Barbiturates Screen (NotDetected) U Tricyclic Antidepress (NotDetected) Ur Phencyclidine Scrn (NotDetected) Ur Amphetamines Screen (NotDetected) U Methamphetamines Scrn (NotDetected) U Benzodiazepines Scrn (NotDetected) Urine Cocaine Screen (NotDetected) U Marijuana (THC) Screen (NotDetected) Coronavirus (PCR) (Not Detectd) Blood Type Blood Type Recheck Bld Type Recheck Status Antibody Screen Crossmatch Spec Expiration Date 04/26/22 04/26/22 04/26/22 Range/Units 21:42 22:44 23:05 WBC (3.8-10.6) k/uL RBC (4.30-5.90) m/uL Hgb (13.0-17.5) gm/dL Hct (39.0-53.0) % MCV (80.0-100.0) fL MCH (25.0-35.0) pg MCHC (31.0-37.0) g/dL RDW (11.5-15.5) % Plt Count (150-450) k/uL MPV Neutrophils % % Lymphocytes % % Monocytes % % Eosinophils % % Basophils % % Neutrophils # (1.3-7.7) k/uL Lymphocytes # (1.0-4.8) k/uL Monocytes # (0-1.0) k/uL Eosinophils # (0-0.7) k/uL Basophils # (0-0.2) k/uL Hypochromasia Anisocytosis Macrocytosis PT (9.0-12.0) sec INR (<1.2) APTT (22.0-30.0) sec Sodium (137-145) mmol/L Potassium (3.5-5.1) mmol/L Chloride (98-107) mmol/L Carbon Dioxide (22-30) mmol/L Anion Gap mmol/L BUN (9-20) mg/dL Creatinine (0.66-1.25) mg/dL Est GFR (CKD-EPI)AfAm (>60 ml/min/1.73 sqM) Est GFR (CKD-EPI)NonAf (>60 ml/min/1.73 sqM) Glucose (74-99) mg/dL POC Glucose (mg/dL) (70-110) mg/dL POC Glu Thread Winder ID Plasma Lactic Acid Ralph (0.7-2.0) mmol/L Calcium (8.4-10.2) mg/dL Magnesium (1.6-2.3) mg/dL Total Bilirubin (0.2-1.3) mg/dL AST (17-59) U/L ALT (4-49) U/L Alkaline Phosphatase (38-126) U/L Ammonia (<30) umol/L Troponin I (0.000-0.034) ng/mL NT-Pro-B Natriuret Pep 2580 pg/mL Total Protein (6.3-8.2) g/dL Albumin (3.5-5.0) g/dL Urine Color Urine Appearance (Clear) Urine pH (5.0-8.0) Ur Specific [place] (1.001-1.035) Urine Protein (Negative) Urine Glucose (UA) (Negative) Urine Ketones (Negative) Urine Blood (Negative) Urine Nitrite (Negative) Urine Bilirubin (Negative) Urine Urobilinogen (<2.0) mg/dL Ur Leukocyte Esterase (Negative) Urine RBC (0-5) /hpf Urine WBC (0-5) /hpf Ur Squamous Epith Cells (0-4) /hpf Urine Bacteria (None) /hpf Hyaline Casts (0-2) /lpf Urine Mucus (None) /hpf Stool Occult Blood Positive (Negative) Urine Opiates Screen (NotDetected) Ur Oxycodone Screen (NotDetected) Urine Methadone Screen (NotDetected) Ur Propoxyphene Screen (NotDetected) Ur Barbiturates Screen (NotDetected) U Tricyclic Antidepress (NotDetected) Ur Phencyclidine Scrn (NotDetected) Ur Amphetamines Screen (NotDetected) U Methamphetamines Scrn (NotDetected) U Benzodiazepines Scrn (NotDetected) Urine Cocaine Screen (NotDetected) U Marijuana (THC) Screen (NotDetected) Coronavirus (PCR) (Not Detectd) Blood Type O Positive Blood Type Recheck O Pos Bld Type Recheck Status No Antibody Screen NEGATIVE Crossmatch See Detail Spec Expiration Date 04/29/20222304 - EKG Data -: EKG Interpreted by Me EKG Comments: 12-lead Electrocardiogram Interpretation Note EKG was reviewed and interpreted by myself. 12-lead ECG performed at 2102 to is interpreted by me as revealing atrial fibrillation with left bundle branch bloc k, chronic at a rate of 104 beats per minute. [place] is normal. QRS duration is 140 ms, QTc is 432 ms.. There were no acute ST or T wave abnormalities to suggest myocardial ischemia or injury. R wave progression across the precordium was delayed. Chronic T-wave inversions seen in the lateral precordial leads, particularly V6. By my interpretation this EKG is non-diagnostic for acute ischemia. EKG is largely unchanged when compared to March 2022. Critical Care Time Critical Care Time: Yes Total Critical Care Time: 35 Critical Care Time: Upon my evaluation, this patient had a high probability of imminent or life- threatening deterioration due to suspected GI bleed, sepsis, UTI, dehydration, which required my direct attention, intervention, and personal management. I have personally provided 35 minutes of critical care time exclusive of time spent on separately billable procedures. Time includes review of laboratory data, radiology results, discussion with consultants, and monitoring for potential decompensation. Interventions were performed as documented in my note. Disposition Clinical Impression: Sepsis, Anemia, GI bleed, CARRIE (acute kidney injury), UTI (urinary tract infection), Hypernatremia Disposition: ADMITTED IP TO THIS HOSP Condition: Serious Time of Disposition: 23:21
[2022-04-26 22:13] LABS: HGB 6.9 gm/dL (13.0-17.5)
--- NOTE | 2022-04-26 22:23 | XR ---
EXAMINATION TYPE: XR chest 2V DATE OF EXAM: 04/26/2022 COMPARISON: 04/09/2022 HISTORY: Fever TECHNIQUE: 2 views FINDINGS: There are bilateral patches of airspace infiltrate. Heart is top normal in size. No heart f ailure. No pleural effusion. IMPRESSION: There is some bilateral patchy pneumonia which is new compared to old exam. Normal heart.
--- NOTE | 2022-04-26 22:45 | CT ---
EXAMINATION TYPE: CT brain wo con DATE OF EXAM: 04/26/2022 COMPARISON: 04/15/2017 HISTORY: AMS CT DLP: 1098.4 mGycm Automated exposure control for dose reduction was used. Images obtained of the brain with no contrast. There is cerebral cortical atrophy. There is no mass effect or midline shift. No sign of intracranial hemorrhage. There is extensive hypodensity around the frontal horns of the lateral ventricles. There is some enlargement of the ventricles. There is old right frontal craniotomy defect. IMPRESSION: Cerebral atrophy. Encephalomalacia in the right frontal lobe. Chronic small vessel ischemia. No acute intracranial abnormality. No significant change compared to multiple exams back to 04/15/2017.
[2022-04-27] MEDS ORDERED: PANTOPRAZOLE 40 MG/10 ML VIAL IVP STA (00:01)
[2022-04-27] MEDS ORDERED: NALOXONE 0.4 MG/ML 1 ML VIAL IV PRN (00:07)
[2022-04-27] MEDS: SODIUM CHLORIDE 0.9% 1,000 ML IV SCH ×2 (01:00→16:40)
[2022-04-27] MEDS ORDERED: CEFEPIME 2 GM in SODIUM CHLORIDE 0.9% 100 ML IVPB SCH (06:00)
[2022-04-27] MEDS: SODIUM CHLORIDE 0.9% 500 ML 500 ML IV SCH (07:01)
[2022-04-27 07:33] LABS: Glucose,Whole Blood 133 mg/dL (70-110)
[2022-04-27] MEDS ORDERED: DAPAGLIFLOZIN PROPANEDIOL 5 MG PO SCH (09:00)
[2022-04-27] MEDS: PANTOPRAZOLE 40 MG/10 ML VIAL IV SCH (09:40)
[2022-04-27] MEDS: CEFEPIME 1 GM in SODIUM CHLORIDE 0.9% 50 ML IVPB SCH ×2 (09:40→21:55)
[2022-04-27] MEDS: FUROSEMIDE 40 MG TAB PO SCH ×2 (09:40→15:24)
[2022-04-27 10:21] LABS: Anisocytosis Slight; HCT 28.3 % (39.0-53.0); HGB 8.1 gm/dL (13.0-17.5); Hypochromasia Marked; MCH 28.6 pg (25.0-35.0); MCHC 28.7 g/dL (31.0-37.0); MCV 99.7 fL (80.0-100.0); Macrocytosis Slight; Mean Platelet Volume 14.6; Poikilocytosis Slight; RBC 2.84 m/uL (4.30-5.90); RDW 17.8 % (11.5-15.5); WBC 9.4 k/uL (3.8-10.6)
[2022-04-27 10:38] LABS: Calcium 7.1 mg/dL (8.4-10.2); Potassium 3.4 mmol/L (3.5-5.1)
[2022-04-27 11:01] LABS: Platelet Count 100 k/uL (150-450)
--- NOTE | 2022-04-27 11:16 | P.GSCN ---
History of Present Illness Consult date: 04/27/22 Reason for Consult: anemia, heme positive stool History of present illness: The patient was brought to the ER due to change in mental status and concern for possible CVA. He was noted to be hypotensive on admission. Work-up showed anemia. A Hemoccult was performed and was positive. The patient is confused today and unable to answer questions with other than yes or no to pain which appeared appropriate. Review of Systems ROS unobtainable: due to mental status Past Medical History Past Medical History: Atrial Fibrillation, Cancer, COPD, Diabetes Mellitus, Eye Disorder, Hearing Disorder / Deafness, Hypertension, Pneumonia, Prostate Disorder, Renal Disease Additional Past Medical History / Comment(s): Pt recently admitted to [facility] on 01/25/20 with a mechanical fall/hematoma R buttock and acute blood loss anemia. Other hx: 2010 Brain cancer with surgery and radiation, L nephrectomy d/t deteriorating kidney, CKD stage III, BPH, chronic thrombocytopenia, chronic anemia, diet controlled diabetes, generalized arthritis, L2 compression fracture, blind R eye, [place] blaterally, seasonal allergies. 05/14/21 admitted wit h abdominal hematoma History of Any Multi-Drug Resistant Organisms: None Reported Past Surgical History: No Surgical Hx Reported Additional Past Surgical History / Comment(s): L nephrectomy, brain tumor removal, bilateral cataract removals, colonoscopy. Past Anesthesia/Blood Transfusion Reactions: No Reported Reaction Additional Past Anesthesia/Blood Transfusion Reaction / Comm: Pt has received blood in past without reaction. Past Psychological History: Depression Smoking Status: Former smoker Past Alcohol Use History: None Reported Past Drug Use History: None Reported - Past Family History Father Family Medical History: No Reported History Additional Family Medical History / Comment(s): Father was healthy. He at the age of 62yrs in a MVA. Mother Additional Family Medical History / Comment(s): Mother at the age of 86yrs of "heart problems." Brother(s) Additional Family Medical History / Comment(s): Patient has 3 brothers and one is passed from old age. Patient has 4 sisters with no major medical problems. Patient had 2 children one from muscular dystrophy and one is alive with no major medical problems. Medications and Allergies Home Medications Medication Instructions Recorded Confirmed Type Sertraline [Zoloft] 50 mg PO HS@2100 01/25/20 04/26/22 History allopurinoL [Zyloprim] 100 mg PO HS@209901/25/20 04/26/22 History Acetaminophen [Tylenol] 650 mg PO Q6H PRN 12/11/21 04/26/22 History Ferrous Sulfate 330 mg PO BID@0900,2100 02/28/22 04/26/22 History Multivitamins, Thera Liquid 5 ml PO DAILY@89902/28/22 04/26/22 History [Theragran Liquid (formulary)] Nitroglycerin Sl Tabs [Nitrostat] 0.4 mg SUBLINGUAL Q5M PRN 02/28/22 04/26/22 History Omeprazole 20 mg PO DAILY@0602/28/22 04/26/22 History Collagenase [Santyl Ointment] 1 applic TOPICAL Q12H 04/02/22 04/26/22 History Darbepoetin Ten [Aranesp] 40 mcg SQ FR@209904/02/22 04/26/22 History Lactose-Reduced Food [Ensure Plus] 1 can PO DAILY@89904/02/22 04/26/22 History Dapagliflozin Propanediol [Farxiga] 5 mg PO DAILY@89904/09/22 04/26/22 History Furosemide [Lasix] 40 mg PO BID@0600,1400 04/09/22 04/26/22 History Metoprolol Tartrate [Lopressor] 25 mg PO BID@0900,2100 04/09/22 04/26/22 History lisinopriL [Zestril] 2.5 mg PO DAILY@0900 PRN 04/26/22 04/26/22 History Allergies Allergy/AdvReac Type Severity Reaction Status Date / Time No Known Allergies Allergy Verified 04/26/22 23:15 Surgical - Exam Osteopathic Statement: *. No significant issues noted on an osteopathic structural exam other than those noted in the History and Physical/Consult. Vital Signs Temp Pulse Resp BP Pulse Ox 98.5 F 112 H 22 88/51 100 04/26/22 21:02 04/26/22 21:02 04/26/22 21:02 04/26/22 21:02 04/26/22 21:02 - General well developed, well nourished, no distress - Eyes normal ocular movement - Neck trachea midline - Respiratory normal expansion, normal respiratory effort - Abdomen Abdomen: soft, non tender, bowel sounds, no guarding, no rigid, no rebound, no distended Results - Labs 04/27/22 09:53 04/27/22 09:53 Abnormal Lab Results - Last 24 Hours (Table) 04/26/22 04/26/22 04/26/22 Range/Units 21:09 21:26 21:42 RBC 2.42 L (4.30-5.90) m/uL Hgb 6.9 L* (13.0-17.5) gm/dL Hct 23.9 L (39.0-53.0) % MCHC 28.9 L (31.0-37.0) g/dL RDW 18.1 H (11.5-15.5) % Plt Count 102 L (150-450) k/uL Sodium (137-145) mmol/L Potassium (3.5-5.1) mmol/L Chloride (98-107) mmol/L Carbon Dioxide (22-30) mmol/L BUN (9-20) mg/dL Creatinine (0.66-1.25) mg/dL Glucose (74-99) mg/dL POC Glucose (mg/dL) 266 H (70-110) mg/dL Calcium (8.4-10.2) mg/dL Total Bilirubin (0.2-1.3) mg/dL AST (17-59) U/L Total Protein (6.3-8.2) g/dL Albumin (3.5-5.0) g/dL Urine pH 8.5 H (5.0-8.0) Urine Protein 3+ H (Negative) Urine Bilirubin 1+ H (Negative) Ur Leukocyte Esterase Large H (Negative) Urine RBC 9 H (0-5) /hpf Urine WBC 82 H (0-5) /hpf Urine Bacteria Few H (None) /hpf Hyaline Casts 11 H (0-2) /lpf Urine Mucus Occasional H (None) /hpf Crossmatch 04/26/22 04/26/22 04/27/22 Range/Units 21:42 23:05 07:27 RBC (4.30-5.90) m/uL Hgb (13.0-17.5) gm/dL Hct (39.0-53.0) % MCHC (31.0-37.0) g/dL RDW (11.5-15.5) % Plt Count (150-450) k/uL Sodium 162 H* (137-145) mmol/L Potassium (3.5-5.1) mmol/L Chloride 132 H* (98-107) mmol/L Carbon Dioxide (22-30) mmol/L BUN 97 H (9-20) mg/dL Creatinine 3.48 H (0.66-1.25) mg/dL Glucose 245 H (74-99) mg/dL POC Glucose (mg/dL) 133 H (70-110) mg/dL Calcium 7.4 L (8.4-10.2) mg/dL Total Bilirubin 0.1 L (0.2-1.3) mg/dL AST 11 L (17-59) U/L Total Protein 4.6 L (6.3-8.2) g/dL Albumin 2.0 L (3.5-5.0) g/dL Urine pH (5.0-8.0) Urine Protein (Negative) Urine Bilirubin (Negative) Ur Leukocyte Esterase (Negative) Urine RBC (0-5) /hpf Urine WBC (0-5) /hpf Urine Bacteria (None) /hpf Hyaline Casts (0-2) /lpf Urine Mucus (None) /hpf Crossmatch See Detail 04/27/22 04/27/22 Range/Units 09:53 09:53 RBC 2.84 L (4.30-5.90) m/uL Hgb 8.1 L (13.0-17.5) gm/dL Hct 28.3 L (39.0-53.0) % MCHC 28.7 L (31.0-37.0) g/dL RDW 17.8 H (11.5-15.5) % Plt Count 100 L (150-450) k/uL Sodium 163 H* (137-145) mmol/L Potassium 3.4 L (3.5-5.1) mmol/L Chloride 133 H* (98-107) mmol/L Carbon Dioxide 20 L (22-30) mmol/L BUN 85 H (9-20) mg/dL Creatinine 3.26 H (0.66-1.25) mg/dL Glucose 228 H (74-99) mg/dL POC Glucose (mg/dL) (70-110) mg/dL Calcium 7.1 L (8.4-10.2) mg/dL Total Bilirubin (0.2-1.3) mg/dL AST (17-59) U/L Total Protein (6.3-8.2) g/dL Albumin (3.5-5.0) g/dL Urine pH (5.0-8.0) Urine Protein (Negative) Urine Bilirubin (Negative) Ur Leukocyte Esterase (Negative) Urine RBC (0-5) /hpf Urine WBC (0-5) /hpf Urine Bacteria (None) /hpf Hyaline Casts (0-2) /lpf Urine Mucus (None) /hpf Crossmatch Diabetes panel 04/26/22 04/27/22 Range/Units 21:42 09:53 Sodium 162 H* 163 H* (137-145) mmol/L Potassium 3.8 3.4 L (3.5-5.1) mmol/L Chloride 132 H* 133 H* (98-107) mmol/L Carbon Dioxide 22 20 L (22-30) mmol/L BUN 97 H 85 H (9-20) mg/dL Creatinine 3.48 H 3.26 H (0.66-1.25) mg/dL Glucose 245 H 228 H (74-99) mg/dL Calcium 7.4 L 7.1 L (8.4-10.2) mg/dL AST 11 L (17-59) U/L ALT 9 (4-49) U/L Alkaline Phosphatase 75 (38-126) U/L Total Protein 4.6 L (6.3-8.2) g/dL Albumin 2.0 L (3.5-5.0) g/dL Calcium panel 04/26/22 04/27/22 Range/Units 21:42 09:53 Calcium 7.4 L 7.1 L (8.4-10.2) mg/dL Albumin 2.0 L (3.5-5.0) g/dL Pituitary panel 04/26/22 04/27/22 Range/Units 21:42 09:53 Sodium 162 H* 163 H* (137-145) mmol/L Potassium 3.8 3.4 L (3.5-5.1) mmol/L Chloride 132 H* 133 H* (98-107) mmol/L Carbon Dioxide 22 20 L (22-30) mmol/L BUN 97 H 85 H (9-20) mg/dL Creatinine 3.48 H 3.26 H (0.66-1.25) mg/dL Glucose 245 H 228 H (74-99) mg/dL Calcium 7.4 L 7.1 L (8.4-10.2) mg/dL Adrenal panel 04/26/22 04/27/22 Range/Units 21:42 09:53 Sodium 162 H* 163 H* (137-145) mmol/L Potassium 3.8 3.4 L (3.5-5.1) mmol/L Chloride 132 H* 133 H* (98-107) mmol/L Carbon Dioxide 22 20 L (22-30) mmol/L BUN 97 H 85 H (9-20) mg/dL Creatinine 3.48 H 3.26 H (0.66-1.25) mg/dL Glucose 245 H 228 H (74-99) mg/dL Calcium 7.4 L 7.1 L (8.4-10.2) mg/dL Total Bilirubin 0.1 L (0.2-1.3) mg/dL AST 11 L (17-59) U/L ALT 9 (4-49) U/L Alkaline Phosphatase 75 (38-126) U/L Total Protein 4.6 L (6.3-8.2) g/dL Albumin 2.0 L (3.5-5.0) g/dL Assessment and Plan (1) CARRIE (acute kidney injury) Current Visit: Yes Status: Acute Code(s): N17.9 - ACUTE KIDNEY FAILURE, UNSPECIFIED SNOMED Code(s): 24734913 (2) Anemia Current Visit: Yes Status: Acute Code(s): D64.9 - ANEMIA, UNSPECIFIED SNOMED Code(s): 882211219 (3) Sepsis Current Visit: Yes Status: Acute Code(s): A41.9 - SEPSIS, UNSPECIFIED ORGANISM SNOMED Code(s): 79650655 (4) UTI (urinary tract infection) Current Visit: Yes Status: Acute Code(s): N39.0 - URINARY TRACT INFECTION, SITE NOT SPECIFIED SNOMED Code(s): 52467542 Plan: Patient appears to have some chronic anemia. Hemoglobin on 810 was also 6.9. The previous year it was 7.7. At present I would recommend work-up for his sepsis and renal failure. Endoscopy could either be performed just prior to discharge or as an outpatient. No signs of active bleeding at this time.
[2022-04-27 11:35] LABS: Glucose,Whole Blood 229 mg/dL (70-110)
[2022-04-27] MEDS: INSULIN ASPART (NovoLOG) 100 UNIT/ML VIAL SQ SCH ×3 (13:07→21:44)
[2022-04-27] MEDS ORDERED: SODIUM CHLORIDE 0.45% 1,000 ML IV SCH (13:15)
[2022-04-27] MEDS: DEXTROSE 5% IN WATER 1,000 ML IV SCH (15:59)
[2022-04-27 16:44] LABS: Glucose,Whole Blood 106 mg/dL (70-110)
[2022-04-27] MEDS: VANCOMYCIN 125 MG CAPSULE PO SCH ×2 (17:29→21:44)
[2022-04-27 18:41] LABS: ABG HCO3 18 mmol/L (21-25); ABG Hematocrit 26 % (34.0-46.0); ABG Oxygen Saturation 99.3 % (94-97); ABG PCO2 32 mmHg (35-45); ABG PH 7.37 (7.35-7.45); ABG PO2 127 mmHg (83-108); ABG TCO2 19 mmol/L (19-24); Allen Test Performed? Yes
[2022-04-27 19:14] LABS: Anisocytosis Slight; HCT 30.5 % (39.0-53.0); HGB 8.6 gm/dL (13.0-17.5); Hypochromasia Marked; MCH 28.2 pg (25.0-35.0); MCHC 28.1 g/dL (31.0-37.0); MCV 100.3 fL (80.0-100.0); Macrocytosis Moderate; Mean Platelet Volume 13.6; Platelet Count 108 k/uL (150-450); Poikilocytosis Slight; RBC 3.04 m/uL (4.30-5.90); RDW 17.7 % (11.5-15.5); WBC 10.8 k/uL (3.8-10.6)
[2022-04-27 19:28] LABS: Calcium 7.5 mg/dL (8.4-10.2); Potassium 3.6 mmol/L (3.5-5.1)
[2022-04-27 20:16] LABS: Glucose,Whole Blood 198 mg/dL (70-110)
[2022-04-27] MEDS ORDERED: VANCOMYCIN 1,250 MG in SODIUM CHLORIDE 0.9% 250 ML IVPB ONE (21:00)
--- NOTE | 2022-04-27 21:22 | P.HPIM ---
History of Present Illness H&P Date: 04/27/22 87-year-old male who presents from a nursing facility. Has been having more mental decline over the last 3 days per EMS. Staff at the facility were struggling to provide his baseline for the patient. He currently is alert and oriented 2-3. They're concerned for maybe mild left-sided facial droop onset unknown time. Patient is also hypotensive. Baseline is on 4 L nasal cannula. His Ramirez catheter dependent. Presents for further evaluation of this time. Patient currently has no acute complaints. Is uncertain why he is here. Denies abdominal pain, chest pain. Denies any fevers, chills, cough. Denies any shortness of breath. Patient's Ramirez catheter does have dark urine that appears infected. Has a history of atrial fibrillation for which she is in A. fib at this time. Does not appear is still on blood thinners. Presents for further evaluation at this time. Patient is a limited historian. Laboratory completed in ED revealed a WBC of 8.0, hemoglobin of 6.9 and platelet count of 102, sodium 162, potassium 3.8, BUN/creatinine elevated at 97/3.48 and blood glucose of 245; BNP is elevated at 2580 Review of Systems ROS unobtainable: due to mental status Past Medical History Past Medical History: Atrial Fibrillation, Cancer, COPD, Diabetes Mellitus, Eye Disorder, Hearing Disorder / Deafness, Hypertension, Pneumonia, Prostate Disorder, Renal Disease Additional Past Medical History / Comment(s): Pt recently admitted to [facility] on 01/25/20 with a mechanical fall/hematoma R buttock and acute blood loss anemia. Other hx: 2010 Brain cancer with surgery and radiation, L nephrectomy d/t deteriorating kidney, CKD stage III, BPH, chronic thrombocytopenia, chronic anem ia, diet controlled diabetes, generalized arthritis, L2 compression fracture, blind R eye, [place] blaterally, seasonal allergies. 05/14/21 admitted with abdominal hematoma History of Any Multi-Drug Resistant Organisms: None Reported Past Surgical History: No Surgical Hx Reported Additional Past Surgical History / Comment(s): L nephrectomy, brain tumor removal, bilateral cataract removals, colonoscopy. Past Anesthesia/Blood Transfusion Reactions: No Reported Reaction Additional Past Anesthesia/Blood Transfusion Reaction / Comment(s): Pt has received blood in past without reaction. Past Psychological History: Depression Smoking Status: Former smoker Past Alcohol Use History: None Reported Past Drug Use History: None Reported - Past Family History Father Family Medical History: No Reported History Additional Family Medical History / Comment(s): Father was healthy. He at the age of 62yrs in a MVA. Mother Additional Family Medical History / Comment(s): Mother at the age of 86yrs of "heart problems." Brother(s) Additional Family Medical History / Comment(s): Patient has 3 brothers and one is passed from old age. Patient has 4 sisters with no major medical problems. Patient had 2 children one from muscular dystrophy and one is alive with no major medical problems. Medications and Allergies Home Medications Medication Instructions Recorded Confirmed Type Sertraline [Zoloft] 50 mg PO HS@209901/25/20 04/26/22 History allopurinoL [Zyloprim] 100 mg PO HS@209901/25/20 04/26/22 History Acetaminophen [Tylenol] 650 mg PO Q6H PRN 12/11/21 04/26/22 History Ferrous Sulfate 330 mg PO BID@09,209902/28/22 04/26/22 History Multivitamins, Thera Liquid 5 ml PO DAILY@89902/28/22 04/26/22 History [Theragran Liquid (formulary)] Nitroglycerin Sl Tabs [Nitrostat] 0.4 mg SUBLINGUAL Q5M PRN 02/28/22 04/26/22 History Omeprazole 20 mg PO DAILY@0602/28/22 04/26/22 History Collagenase [Santyl Ointment] 1 applic TOPICAL Q12H 04/02/22 04/26/22 History Darbepoetin Ten [Aranesp] 40 mcg SQ FR@209904/02/22 04/26/22 History Lactose-Reduced Food [Ensure Plus] 1 can PO DAILY@89904/02/22 04/26/22 History Dapagliflozin Propanediol [Farxiga] 5 mg PO DAILY@89904/09/22 04/26/22 History Furosemide [Lasix] 40 mg PO BID@0600,1400 04/09/22 04/26/22 History Metoprolol Tartrate [Lopressor] 25 mg PO BID@0900,209904/09/22 04/26/22 History lisinopriL [Zestril] 2.5 mg PO DAILY@0900 PRN 04/26/22 04/26/22 History Allergies Allergy/AdvReac Type Severity Reaction Status Date / Time No Known Allergies Allergy Verified 04/26/22 23:15 Physical Exam Vitals: Vital Signs Temp Pulse Pulse Resp BP BP Pulse Ox 04/27/22 08:21 97.5 F L 110 H 16 102/56 95 04/27/22 08:00 25 H 04/27/22 06:25 98.1 F 81 18 92/58 92 L 04/27/22 04:05 97/53 04/27/22 04:00 98.0 F 71 17 99/62 90 L 04/27/22 03:46 98.0 F 88 18 85/58 92 L 04/27/22 03:16 97.7 F 101 H 18 95/55 99 04/27/22 03:06 97.8 F 70 17 91/57 92 L 04/27/22 02:00 72 18 04/27/22 00:39 94 22 92/62 100 04/27/22 00:31 97.9 F 72 19 96/61 91 L 04/26/22 23:28 99 20 102/78 04/26/22 21:02 98.5 F 112 H 22 88/51 100 Intake and Output 04/26/22 04/27/22 04/27/22 22:59 06:59 14:59 Intake Total 280 398 Output Total 400 300 Balance -120 98 Intake: Oral 118 Blood Product 280 280 Rc Pheresis As-3 Unit 0 280 [id number] Output: Urine 400 300 Other: Voiding Method Indwelling Catheter Indwelling Catheter Weight 63.503 kg 63.503 kg General appearance: Present: average body habitus, cooperative, no acute distress EENT; Eyes: Present: anicteric sclerae, EOMI, PERRLA, normal appearance Neck: Present: normal ROM. Absent: lymphadenopathy, rigidity, thyromegaly Carotids: negative: bruit present Thyroid: bilateral: normal size, negative: enlarged, nodule Respiratory: bilateral: CTA, negative: rales, rhonchi, wheezing Cardiovascular: regular; normal: S1, S2 Gastrointestinal: normal bowel sounds, soft. Absent: distended, organomegaly, tenderness Genitourinary Comment(s): deferred Integumentary: Present: normal turgor. Absent: jaundiced, rash, ulcer Neurologic: Unable to assess Results CBC & Chem 7: 04/27/22 18:58 04/27/22 18:58 Labs: Abnormal Lab Results - Last 24 Hours (Table) 04/26/22 04/26/22 04/26/22 Range/Units 21:09 21:26 21:42 RBC 2.42 L (4.30-5.90) m/uL Hgb 6.9 L* (13.0-17.5) gm/dL Hct 23.9 L (39.0-53.0) % MCHC 28.9 L (31.0-37.0) g/dL RDW 18.1 H (11.5-15.5) % Plt Count 102 L (150-450) k/uL Sodium (137-145) mmol/L Potassium (3.5-5.1) mmol/L Chloride (98-107) mmol/L Carbon Dioxide (22-30) mmol/L BUN (9-20) mg/dL Creatinine (0.66-1.25) mg/dL Glucose (74-99) mg/dL POC Glucose (mg/dL) 266 H (70-110) mg/dL Calcium (8.4-10.2) mg/dL Total Bilirubin (0.2-1.3) mg/dL AST (17-59) U/L Total Protein (6.3-8.2) g/dL Albumin (3.5-5.0) g/dL Urine pH 8.5 H (5.0-8.0) Urine Protein 3+ H (Negative) Urine Bilirubin 1+ H (Negative) Ur Leukocyte Esterase Large H (Negative) Urine RBC 9 H (0-5) /hpf Urine WBC 82 H (0-5) /hpf Urine Bacteria Few H (None) /hpf Hyaline Casts 11 H (0-2) /lpf Urine Mucus Occasional H (None) /hpf Crossmatch 04/26/22 04/26/22 04/27/22 Range/Units 21:42 23:05 07:27 RBC (4.30-5.90) m/uL Hgb (13.0-17.5) gm/dL Hct (39.0-53.0) % MCHC (31.0-37.0) g/dL RDW (11.5-15.5) % Plt Count (150-450) k/uL Sodium 162 H* (137-145) mmol/L Potassium (3.5-5.1) mmol/L Chloride 132 H* (98-107) mmol/L Carbon Dioxide (22-30) mmol/L BUN 97 H (9-20) mg/dL Creatinine 3.48 H (0.66-1.25) mg/dL Glucose 245 H (74-99) mg/dL POC Glucose (mg/dL) 133 H (70-110) mg/dL Calcium 7.4 L (8.4-10.2) mg/dL Total Bilirubin 0.1 L (0.2-1.3) mg/dL AST 11 L (17-59) U/L Total Protein 4.6 L (6.3-8.2) g/dL Albumin 2.0 L (3.5-5.0) g/dL Urine pH (5.0-8.0) Urine Protein (Negative) Urine Bilirubin (Negative) Ur Leukocyte Esterase (Negative) Urine RBC (0-5) /hpf Urine WBC (0-5) /hpf Urine Bacteria (None) /hpf Hyaline Casts (0-2) /lpf Urine Mucus (None) /hpf Crossmatch See Detail 04/27/22 04/27/22 04/27/22 Range/Units 09:53 09:53 11:34 RBC 2.84 L (4.30-5.90) m/uL Hgb 8.1 L (13.0-17.5) gm/dL Hct 28.3 L (39.0-53.0) % MCHC 28.7 L (31.0-37.0) g/dL RDW 17.8 H (11.5-15.5) % Plt Count 100 L (150-450) k/uL Sodium 163 H* (137-145) mmol/L Potassium 3.4 L (3.5-5.1) mmol/L Chloride 133 H* (98-107) mmol/L Carbon Dioxide 20 L (22-30) mmol/L BUN 85 H (9-20) mg/dL Creatinine 3.26 H (0.66-1.25) mg/dL Glucose 228 H (74-99) mg/dL POC Glucose (mg/dL) 229 H (70-110) mg/dL Calcium 7.1 L (8.4-10.2) mg/dL Total Bilirubin (0.2-1.3) mg/dL AST (17-59) U/L Total Protein (6.3-8.2) g/dL Albumin (3.5-5.0) g/dL Urine pH (5.0-8.0) Urine Protein (Negative) Urine Bilirubin (Negative) Ur Leukocyte Esterase (Negative) Urine RBC (0-5) /hpf Urine WBC (0-5) /hpf Urine Bacteria (None) /hpf Hyaline Casts (0-2) /lpf Urine Mucus (None) /hpf Crossmatch Microbiology - Last 24 Hours (Table) 04/26/22 21:26 Urine Culture - Preliminary Urine,Voided Thrombosis Risk Factor Assmnt - Choose All That Apply Any of the Below Risk Factors Present?: Yes Each Factor Represents 1 point: Abnormal pulmonary function (COPD) Other Risk Factors: Yes Each Risk Factor Represents 3 Points: Age 75 years or older Thrombosis Risk Factor Assessment Total Risk Factor Score: 4 Thrombosis Risk Factor Assessment Level: Moderate Risk Assessment and Plan Assessment: 1. UTI/sepsis - Patient has been placed on IV cefepime and vancomycin; blood cultures and ur ine cultures obtained - ID is consulted for further recommendations - We will monitor CBC, CRP and pro-calcitonin 2. Acute on chronic kidney disease; patient's baseline creatinine is around 2; creatinine upon admission is elevated at 3.26; patient received IV fluid hydration in ED; we will continue with IV fluids and monitor renal function and electrolytes; monitor strict RAMSES's; avoid nephrotoxins and hypotension - Nephrology on board for further recommendations 3. Hypernatremia; sodium at 162 upon admission; up to 163 this morning; patient did receive normal saline bolus and infusion from ED; we will discontinue normal saline; patient will benefit from free water however unable to start patient on D5 water due to hyperglycemia and diabetes; we will place patient on half-normal saline at rate of 75 mL an hour; we will monitor electrolytes every 4 hours and make further adjustments - Consult nephrology for further recommendations 4. Acute GI bleed/acute blood loss anemia; we will monitor H&H closely with plans to transfuse for any further drop in hemoglobin; we will consult general surgery for GI bleed; start patient on Protonix 40 mg IV daily - Patient remains on home dose of Aranesp 5. Hyperglycemia without acidosis/diabetes mellitus; monitor Accu-Cheks every before meals and at bedtime with insulin sliding scale 6. Atrial fibrillation; rate controlled on metoprolol 7. Hypertension; patient takes metoprolol and lisinopril; we will hold off on lisinopril 2 renal function improves DVT prophylaxis; SCDs only CODE STATUS; full code
[2022-04-27] MEDS: METOPROLOL TARTRATE 25 MG TAB PO SCH (21:44)
[2022-04-27] MEDS: SERTRALINE 50 MG TAB PO SCH (21:44)
[2022-04-28 00:17] LABS: Glucose,Whole Blood 193 mg/dL (70-110)
[2022-04-28] MEDS: DEXTROSE 5% IN WATER 1,000 ML IV SCH ×4 (00:40→14:44)
[2022-04-28 06:37] LABS: Glucose,Whole Blood 131 mg/dL (70-110)
[2022-04-28] MEDS: INSULIN ASPART (NovoLOG) 100 UNIT/ML VIAL SQ SCH ×4 (06:44→22:02)
[2022-04-28] MEDS: FUROSEMIDE 40 MG TAB PO SCH (06:47)
[2022-04-28] MEDS ORDERED: HALOPERIDOL LACTATE 5 MG/ML 1 ML VIAL IM STA (07:37)
[2022-04-28 08:05] LABS: Potassium 3.3 mmol/L (3.5-5.1)
[2022-04-28] MEDS: CEFEPIME 1 GM in SODIUM CHLORIDE 0.9% 50 ML IVPB SCH ×2 (08:54→21:47)
[2022-04-28] MEDS: PANTOPRAZOLE 40 MG/10 ML VIAL IV SCH (08:54)
[2022-04-28] MEDS: METOPROLOL TARTRATE 25 MG TAB PO SCH ×2 (08:54→21:47)
[2022-04-28] MEDS: VANCOMYCIN 125 MG CAPSULE PO SCH ×4 (08:54→21:47)
[2022-04-28] MEDS ORDERED: DEXTROSE 5% IN WATER 1,000 ML IV SCH (10:30)
--- NOTE | 2022-04-28 11:16 | P.NPCON ---
History of Present Illness - Reason for Consult hypernatremia - History of Present Illness Patient is an 87-year-old male who is a halfway resident. Patient was admitted to the hospital with deterioration of mental status. Patient's blood pressure was also low. No complaints of diarrhea nausea or vomiting although oral intake has been poor. Sodium was noted to be at 162 on initial admission. Patient was started on D5W. Serum sodium had not improved significantly and the D5W was increased to 200 mL an hour yesterday. Serum sodium is down to 155 today Mentation seems to have slightly improved as per nursing staff. Serum creatinine was 3.4 on initial admission and it is down to 2.9 today Previous creatinine has been as 1.7-1.8 in February 2022 with previous episodes of acute kidney injury this year Review of Systems As per HPI Past Medical History Past Medical History: Atrial Fibrillation, Cancer, COPD, Diabetes Mellitus, Eye Disorder, Hearing Disorder / Deafness, Hypertension, Pneumonia, Prostate Disorder, Renal Disease Additional Past Medical History / Comment(s): Pt recently admitted to [facility] on 01/25/20 with a mechanical fall/hematoma R buttock and acute blood loss anemia. Other hx: 2010 Brain cancer with surgery and radiation, L nephrectomy d/t deteriorating kidney, CKD stage III, BPH, chronic thrombocytopenia, chronic anemia, diet controlled diabetes, generalized arthritis, L2 compression fracture, blind R eye, [place] blaterally, seasonal allergies. 05/14/21 admitted with abdominal hematoma History of Any Multi-Drug Resistant Organisms: None Reported Past Surgical History: No Surgical Hx Reported Additional Past Surgical History / Comment(s): L nephrectomy, brain tumor removal, bilateral cataract removals, colonoscopy. Past Anesthesia/Blood Transfusion Reactions: No Reported Reaction Additional Past Anesthesia/Blood Transfusion Reaction / Comment(s): Pt has received blood in past without reaction. Past Psychological History: Depression Smoking Status: Former smoker Past Alcohol Use History: None Reported Past Drug Use History: None Reported - Past Family History Father Family Medical History: No Reported History Additional Family Medical History / Comment(s): Father was healthy. He at the age of 62yrs in a MVA. Mother Additional Family Medical History / Comment(s): Mother at the age of 86yrs of "heart problems." Brother(s) Additional Family Medical History / Comment(s): Patient has 3 brothers and one is passed from old age. Patient has 4 sisters with no major medical problems. Patient had 2 children one from muscular dystrophy and one is alive with no major medical problems. Medications and Allergies Home Medications Medication Instructions Recorded Confirmed Type Sertraline [Zoloft] 50 mg PO HS@209901/25/20 04/26/22 History allopurinoL [Zyloprim] 100 mg PO HS@209901/25/20 04/26/22 History Acetaminophen [Tylenol] 650 mg PO Q6H PRN 12/11/21 04/26/22 History Ferrous Sulfate 330 mg PO BID@0900,209902/28/22 04/26/22 History Multivitamins, Thera Liquid 5 ml PO DAILY@89902/28/22 04/26/22 History [Theragran Liquid (formulary)] Nitroglycerin Sl Tabs [Nitrostat] 0.4 mg SUBLINGUAL Q5M PRN 02/28/22 04/26/22 History Omeprazole 20 mg PO DAILY@0602/28/22 04/26/22 History Collagenase [Santyl Ointment] 1 applic TOPICAL Q12H 04/02/22 04/26/22 History Darbepoetin Ten [Aranesp] 40 mcg SQ FR@209904/02/22 04/26/22 History Lactose-Reduced Food [Ensure Plus] 1 can PO DAILY@89904/02/22 04/26/22 History Dapagliflozin Propanediol [Farxiga] 5 mg PO DAILY@89904/09/22 04/26/22 History Furosemide [Lasix] 40 mg PO BID@0600,1400 04/09/22 04/26/22 History Metoprolol Tartrate [Lopressor] 25 mg PO BID@0900,209904/09/22 04/26/22 History lisinopriL [Zestril] 2.5 mg PO DAILY@0900 PRN 04/26/22 04/26/22 History Allergies Allergy/AdvReac Type Severity Reaction Status Date / Time No Known Allergies Allergy Verified 04/26/22 23:15 Physical Exam Vitals: Vital Signs Temp Pulse Resp BP Pulse Ox 04/28/22 07:52 97.8 F 92 18 106/65 98 04/28/22 04:00 98.0 F 93 16 98/60 97 04/28/22 02:00 90 17 04/28/22 00:00 98.3 F 90 17 101/63 98 04/27/22 20:00 97.9 F 85 16 92/61 97 04/27/22 18:09 17 110/68 99 04/27/22 15:31 98.1 F 100 18 89/57 100 04/27/22 12:00 97.3 F L 85 17 97/57 100 Intake and Output 04/27/22 04/28/22 04/28/22 22:59 06:59 14:59 Intake Total 118 1400 118 Output Total 275 Balance 118 1125 118 Intake: Intake, IV Titration 1400 Amount Dextrose 5% in Water 1, 1400 000 ml @ 200 mls/hr IV . Q5H [facility] Rx#:[id number] Oral 118 118 Output: Urine 275 Other: Voiding Method Indwelling Catheter Indwelling Catheter Indwelling Catheter # Bowel Movements 1 Patient is awake, comfortable, confused Not in any acute distress Examination of the heart S1 and S2 Examination of the lungs bilateral breath sounds are heard Abdomen is soft nontender Examination of the lower extremity shows no evidence of edema [employer] exam shows patient is confused but moving all 4 extremities. Results - Lab Results Most recent lab results ABG pH 7.37 (7.35-7.45) 04/27/22 18:31 ABG pCO2 32 mmHg (35-45) L 04/27/22 18:31 ABG pO2 127 mmHg (83-108) H 04/27/22 18:31 ABG HCO3 18 mmol/L (21-25) L 04/27/22 18:31 ABG O2 Saturation 99.3 % (94-97) H 04/27/22 18:31 Calcium 7.0 mg/dL (8.4-10.2) L 04/28/22 07:09 Magnesium 1.8 mg/dL (1.6-2.3) 04/26/22 21:42 04/27/22 18:58 04/28/22 07:09 Assessment and Plan Assessment: 1. Hypernatremia secondary to free water deficit currently maintained on D5W and improving. I will decrease rate of D5W since serum sodium has dropped significantly 2. Acute kidney injury prerenal currently improving with IV hydration 3. Mental status changes secondary to hypernatremia currently improving 4. Underlying dementia 5. CK D stage IV secondary to nephrosclerosis baseline creatinine about 1.7-1.8 mg/dL with multiple episodes of acute kidney injury in February and August of this year with peak creatinine at 4.9 mg/dL 6. Pyuria rule out UTI Plan: Decrease D5W Repeat labs this evening Replace potassium Encourage increased oral intake particularly fluids next Thank you for the consultation, we'll continue to follow the patient with you during his hospitalization
[2022-04-28 11:40] LABS: Glucose,Whole Blood 160 mg/dL (70-110)
[2022-04-28 12:24] LABS: Albumin 1.9 g/dL (3.5-5.0); Potassium 3.2 mmol/L (3.5-5.1); Total Bilirubin 0.3 mg/dL (0.2-1.3); Total Protein 4.5 g/dL (6.3-8.2)
--- NOTE | 2022-04-28 13:10 | P.CNPUL ---
History of Present Illness Consult date: 04/28/22 Chief complaint: Dehydration History of present illness: I was contacted on potentially transfer this patient yesterday to the intensive care unit for severe dehydration, and hypotension. The patient a residential resident and he has multitude of medical problems and comorbidities. Apparently he is still a full code. He has had multiple admissions to the hospital including a recent hospitalization for urinary tract infection with gram-ne gative and enterococcus and the patient was treated with antibiotics. Currently is having C. diff colitis, diarrhea and he was severely dehydrated at the time of admission. His comorbid conditions include a single kidney and the patient has undergone a previous nephrectomy and he does have a chronic stage III kidney disease, the patient has undergone previous brain surgery for brain tumor and is CAT scan of the brain is showing malacia of the brain due to previous brain surgery and radiation therapy that was done 2009. The patient also has chronic issues with blindness in the right eye, hard of hearing, L2 compression fracture of the spine, diabetes mellitus, degenerative arthritis, chronic anemia and thrombocytopenia, previous history of a abdominal hematoma and the patient has been on no anticoagulants despite having chronic atrial fibrillation. He is known to have COPD, hypertension, BPH as comorbid conditions. He is a residential resident. He is nonambulatory. The patient's initial blood work was quite abnormal and the sodium level was at 162. I increased to D5 water from 75 mL to 200 mL and the patient's sodium level is down to 155. Creatinine initially was at 3.4 and dropped down to 2.9. His baseline creatinine is at 1.7 and this is consistent with an acute on top of chronic kidney injury. The white cell count is at 10.8 with hemoglobin of 8.6. Note that the patient had a hemoglobin of 6.9 at time of admission and he has chronic anemia and he was evaluated by general surgery. No signs of any GI bleeding. Platelet count is at 108. Blood gases showed a pH of 7.37 with a pCO2 of 32 and pO2 of 127. Chest x-ray showing chronic pulmonary infiltrates. Troponins are negative. ProBNP level is 2580. UA was abnormal. COVID 19 testing is negative, C. diff is positive. No abdominal pain. Unable to communicate. Review of Systems ROS unobtainable: due to mental status Past Medical History Past Medical History: Atrial Fibrillation, Cancer, COPD, Diabetes Mellitus, Eye Disorder, Hearing Disorder / Deafness, Hypertension, Pneumonia, Prostate Disorder, Renal Disease Additional Past Medical History / Comment(s): Pt recently admitted to [facility] on 01/25/20 with a mechanical fall/hematoma R buttock and acute blood loss anemia. Other hx: 2010 Brain cancer with surgery and radiation, L nephrectomy d/t deteriorating kidney, CKD stage III, BPH, chronic thrombocytopenia, chronic anemia, diet controlled diabetes, generalized arthritis, L2 compression fracture, blind R eye, [place] blaterally, seasonal allergies. 05/14/21 admitted with abdominal hematoma History of Any Multi-Drug Resistant Organisms: None Reported Past Surgical History: No Surgical Hx Reported Additional Past Surgical History / Comment(s): L nephrectomy, brain tumor removal, bilateral cataract removals, colonoscopy. Past Anesthesia/Blood Transfusion Reactions: No Reported Reaction Additional Past Anesthesia/Blood Transfusion Reaction / Comment(s): Pt has received blood in past without reaction. Past Psychological History: Depression Smoking Status: Former smoker Past Alcohol Use History: None Reported Past Drug Use History: None Reported - Past Family History Father Family Medical History: No Reported History Additional Family Medical History / Comment(s): Father was healthy. He at the age of 62yrs in a MVA. Mother Additional Family Medical History / Comment(s): Mother at the age of 86yrs of "heart problems." Brother(s) Additional Family Medical History / Comment(s): Patient has 3 brothers and one is passed from old age. Patient has 4 sisters with no major medical problems. Patient had 2 children one from muscular dystrophy and one is alive with no major medical problems. Medications and Allergies Home Medications Medication Instructions Recorded Confirmed Type Sertraline [Zoloft] 50 mg PO HS@209901/25/20 04/26/22 History allopurinoL [Zyloprim] 100 mg PO HS@209901/25/20 04/26/22 History Acetaminophen [Tylenol] 650 mg PO Q6H PRN 12/11/21 04/26/22 History Ferrous Sulfate 330 mg PO BID@0900,209902/28/22 04/26/22 History Multivitamins, Thera Liquid 5 ml PO DAILY@0900 02/28/22 04/26/22 History [Theragran Liquid (formulary)] Nitroglycerin Sl Tabs [Nitrostat] 0.4 mg SUBLINGUAL Q5M PRN 02/28/22 04/26/22 History Omeprazole 20 mg PO DAILY@0600 02/28/22 04/26/22 History Collagenase [Santyl Ointment] 1 applic TOPICAL Q12H 04/02/22 04/26/22 History Darbepoetin Ten [Aranesp] 40 mcg SQ FR@2100 04/02/22 04/26/22 History Lactose-Reduced Food [Ensure Plus] 1 can PO DAILY@89904/02/22 04/26/22 History Dapagliflozin Propanediol [Farxiga] 5 mg PO DAILY@89904/09/22 04/26/22 History Furosemide [Lasix] 40 mg PO BID@0600,1400 04/09/22 04/26/22 History Metoprolol Tartrate [Lopressor] 25 mg PO BID@0900,2100 04/09/22 04/26/22 History lisinopriL [Zestril] 2.5 mg PO DAILY@0900 PRN 04/26/22 04/26/22 History Allergies Allergy/AdvReac Type Severity Reaction Status Date / Time No Known Allergies Allergy Verified 04/26/22 23:15 Physical Exam Vitals: Vital Signs Temp Pulse Resp BP Pulse Ox 04/28/22 07:52 97.8 F 92 18 106/65 98 04/28/22 04:00 98.0 F 93 16 98/60 97 04/28/22 02:00 90 17 04/28/22 00:00 98.3 F 90 17 101/63 98 04/27/22 20:00 97.9 F 85 16 92/61 97 04/27/22 18:09 17 110/68 99 04/27/22 15:31 98.1 F 100 18 89/57 100 Intake and Output 04/27/22 04/28/22 04/28/22 22:59 06:59 14:59 Intake Total 118 1400 118 Output Total 275 400 Balance 118 1125 -282 Intake: Intake, IV Titration 1400 Amount Dextrose 5% in Water 1, 1400 000 ml @ 200 mls/hr IV . Q5H [facility] Rx#:[id number] Oral 118 118 Output: Urine 275 400 Other: Voiding Method Indwelling Catheter Indwelling Catheter Indwelling Catheter # Bowel Movements 1 General appearance: Present: average body habitus, cooperative, no acute distress, very much debilitated and the patient has signs of diffuse muscle atrophy caring a body mass index of 21.8 Head exam was generally normal. There was no scleral icterus or corneal arcus. Mucous membranes were moist. The patient has a scar of previous craniotomy HENT; Eyes: Present: anicteric sclerae, EOMI, PERRLA, normal appearance, mucous membranes are dry Neck: Present: normal ROM. Absent: lymphadenopathy, rigidity, thyromegaly Carotids: negative: bruit present Thyroid: bilateral: normal size, negative: enlarged, nodule Respiratory: bilateral: CTA, negative: rales, rhonchi, wheezing Cardiovascular: regular; normal: S1, S2 Gastrointestinal: normal bowel sounds, soft. Absent: distended, organomegaly, tenderness Genitourinary Comment(s): deferred Integumentary: Present: normal turgor. Absent: jaundiced, rash, ulcer Neurologic: Unable to assess, chronic neurologic deficit secondary to previous brain surgery resident ablate tumor. Results - Laboratory Findings CBC and BMP: 04/27/22 18:58 04/28/22 11:37 ABG ABG pH 7.37 (7.35-7.45) 04/27/22 18:31 ABG pCO2 32 mmHg (35-45) L 04/27/22 18:31 ABG pO2 127 mmHg (83-108) H 04/27/22 18:31 ABG O2 Saturation 99.3 % (94-97) H 04/27/22 18:31 PT/INR, D-dimer PT 11.9 sec (9.0-12.0) 04/26/22 21:42 INR 1.1 (<1.2) 04/26/22 21:42 Abnormal lab findings: Abnormal Labs 04/26/22 04/26/22 04/26/22 21:09 21:26 21:42 WBC RBC 2.42 L Hgb 6.9 L* Hct 23.9 L MCV MCHC 28.9 L RDW 18.1 H Plt Count 102 L ABG pCO2 ABG pO2 ABG HCO3 ABG O2 Saturation ABG Hematocrit Hemoglobin Sodium Potassium Chloride Carbon Dioxide BUN Creatinine Glucose POC Glucose (mg/dL) 266 H Calcium Total Bilirubin AST Total Protein Albumin Urine pH 8.5 H Urine Protein 3+ H Urine Bilirubin 1+ H Ur Leukocyte Esterase Large H Urine RBC 9 H Urine WBC 82 H Urine Bacteria Few H Hyaline Casts 11 H Urine Mucus Occasional H C. difficile (EIA) Intrp Crossmatch 04/26/22 04/26/22 04/27/22 21:42 23:05 07:27 WBC RBC Hgb Hct MCV MCHC RDW Plt Count ABG pCO2 ABG pO2 ABG HCO3 ABG O2 Saturation ABG Hematocrit Hemoglobin Sodium 162 H* Potassium Chloride 132 H* Carbon Dioxide BUN 97 H Creatinine 3.48 H Glucose 245 H POC Glucose (mg/dL) 133 H Calcium 7.4 L Total Bilirubin 0.1 L AST 11 L Total Protein 4.6 L Albumin 2.0 L Urine pH Urine Protein Urine Bilirubin Ur Leukocyte Esterase Urine RBC Urine WBC Urine Bacteria Hyaline Casts Urine Mucus C. difficile (EIA) Intrp Crossmatch See Detail 04/27/22 04/27/22 04/27/22 09:53 09:53 11:34 WBC RBC 2.84 L Hgb 8.1 L Hct 28.3 L MCV MCHC 28.7 L RDW 17.8 H Plt Count 100 L ABG pCO2 ABG pO2 ABG HCO3 ABG O2 Saturation ABG Hematocrit Hemoglobin Sodium 163 H* Potassium 3.4 L Chloride 133 H* Carbon Dioxide 20 L BUN 85 H Creatinine 3.26 H Glucose 228 H POC Glucose (mg/dL) 229 H Calcium 7.1 L Total Bilirubin AST Total Protein Albumin Urine pH Urine Protein Urine Bilirubin Ur Leukocyte Esterase Urine RBC Urine WBC Urine Bacteria Hyaline Casts Urine Mucus C. difficile (EIA) Intrp Crossmatch 04/27/22 04/27/22 04/27/22 12:09 13:44 18:31 WBC RBC Hgb Hct MCV MCHC RDW Plt Count ABG pCO2 32 L ABG pO2 127 H ABG HCO3 18 L ABG O2 Saturation 99.3 H ABG Hematocrit 26 L Hemoglobin 8.4 L Sodium 163 H* Potassium Chloride Carbon Dioxide BUN Creatinine Glucose POC Glucose (mg/dL) Calcium Total Bilirubin AST Total Protein Albumin Urine pH Urine Protein Urine Bilirubin Ur Leukocyte Esterase Urine RBC Urine WBC Urine Bacteria Hyaline Casts Urine Mucus C. difficile (EIA) Intrp Positive A Crossmatch 04/27/22 04/27/22 04/27/22 18:58 18:58 20:15 WBC 10.8 H RBC 3.04 L Hgb 8.6 L Hct 30.5 L MCV 100.3 H MCHC 28.1 L RDW 17.7 H Plt Count 108 L ABG pCO2 ABG pO2 ABG HCO3 ABG O2 Saturation ABG Hematocrit Hemoglobin Sodium 162 H* Potassium Chloride 132 H* Carbon Dioxide 18 L BUN 85 H Creatinine 3.26 H Glucose 169 H POC Glucose (mg/dL) 198 H Calcium 7.5 L Total Bilirubin AST Total Protein Albumin Urine pH Urine Protein Urine Bilirubin Ur Leukocyte Esterase Urine RBC Urine WBC Urine Bacteria Hyaline Casts Urine Mucus C. difficile (EIA) Intrp Crossmatch 04/28/22 04/28/22 04/28/22 00:16 06:35 07:09 WBC RBC Hgb Hct MCV MCHC RDW Plt Count ABG pCO2 ABG pO2 ABG HCO3 ABG O2 Saturation ABG Hematocrit Hemoglobin Sodium 155 H Potassium 3.3 L Chloride 126 H Carbon Dioxide 19 L BUN 74 H Creatinine 2.91 H Glucose 175 H POC Glucose (mg/dL) 193 H 131 H Calcium 7.0 L Total Bilirubin AST Total Protein Albumin Urine pH Urine Protein Urine Bilirubin Ur Leukocyte Esterase Urine RBC Urine WBC Urine Bacteria Hyaline Casts Urine Mucus C. difficile (EIA) Intrp Crossmatch 04/28/22 04/28/22 11:36 11:37 WBC RBC Hgb Hct MCV MCHC RDW Plt Count ABG pCO2 ABG pO2 ABG HCO3 ABG O2 Saturation ABG Hematocrit Hemoglobin Sodium 152 H Potassium 3.2 L Chloride 125 H Carbon Dioxide 19 L BUN 72 H Creatinine 2.79 H Glucose 168 H POC Glucose (mg/dL) 160 H Calcium 7.0 L Total Bilirubin AST 12 L Total Protein 4.5 L Albumin 1.9 L Urine pH Urine Protein Urine Bilirubin Ur Leukocyte Esterase Urine RBC Urine WBC Urine Bacteria Hyaline Casts Urine Mucus C. difficile (EIA) Intrp Crossmatch - Diagnostic Findings Chest x-ray: image reviewed Assessment and Plan Plan: Severe dehydration with intravascular volume depletion secondary to diarrhea and probably diminished oral intake. Acute C. diff related to colitis/diarrhea probably related to previous antibiotic use Severe hypernatremia and the sodium level was also reticular them of admission, improving and the free water supplements is being offered to this patient to correct the free water deficit Acute on top of chronic stage III kidney disease and the patient is nonoliguric for now and the patient is producing adequate amount of urine output History of recurrent UTIs with possible recurrent UTI currently on IV cefepime Chronic atrial fibrillation on no anticoagulants, rate is controlled Physical abdominal wall hematoma History of hypertension History of brain cancer with previous craniotomy radiation surgery and the patient neurologic deficits related to blindness and neurologic deficits and the patient on Lipitor a residential resident History of previous nephrectomy Hypertension Hyperlipidemia Chronic anemia with interval drop in hemoglobin without any signs of GI bleeding. The patient was given a unit of packed RBC with adequate response COPD Diabetes mellitus Hard of hearing Deafness BPH shelter resident with extensive comorbidities including a severe degenerative arthritis, compression fracture of the spine and the patient underwent laboratory with a full CODE STATUS Plan Continue D5 water at the rate of 100 mL an hour. I would like to keep the D5 water going as the patient is still having diarrhea Monitor sodium level Monitor electrolytes Oral vancomycin regarding C. diff colitis Urine cultures with suspicious of a recurrent gram-negative or enterococcal UTI and the patient is currently on IV cefepime I stopped the Lasix Avoid nephrotoxic agents No need to come to the ICU Responding clinically Aspiration precautions
[2022-04-28] MEDS ORDERED: POTASSIUM CHLORIDE ER 20 MEQ TAB.ER PO STA (13:46)
--- NOTE | 2022-04-28 16:43 | P.PN ---
Subjective Progress Note Date: 04/28/22 Principal diagnosis: Sepsis related to UTI/C. diff colitis Acute on chronic kidney disease Critical hypernatremia Acute GI bleed with acute blood loss anemia Hyperglycemia 87-year-old male who presents from a nursing facility. Has been having more mental decline over the last 3 days per EMS. Staff at the facility were struggling to provide his baseline for the patient. He currently is alert and oriented 2-3. They're concerned for maybe mild left-sided facial droop onset unknown time. Patient is also hypotensive. Baseline is on 4 L nasal cannula. His Ramirez catheter dependent. Presents for further evaluation of this time. Patient currently has no acute complaints. Is uncertain why he is here. Denies abdominal pain, chest pain. Denies any fevers, chills, cough. Denies any shortness of breath. Patient's Ramirez catheter does have dark urine that appears infected. Has a history of atrial fibrillation for which she is in A. fib at this time. Does not appear is still on blood thinners. Presents for further evaluation at this time. Patient is a limited historian. Laboratory completed in ED revealed a WBC of 8.0, hemoglobin of 6.9 and platelet count of 102, sodium 162, potassium 3.8, BUN/creatinine elevated at 97/3.48 and blood glucose of 245; BNP is elevated -- patient has been switched to D5 water at rate of 100 mL an hour; sodium is gradually improving with current sodium level of 152 down from 155 yesterday, BUN/creatinine improving from 74/2.9 down to 72/2.79; nephrology is on board Patient has been placed on oral vancomycin for C. diff colitis; urine culture reveals gram-negative cocci; patient remains on IV cefepime Nephrology recommending to continue with IV fluids and hold Lasix and monitor renal function and electrolytes, strict RAMSES's, avoid nephrotoxins and hypotension We will continue to monitor renal function and electrolytes closely; monitor CBC, CRP and pro-calcitonin Objective - Vital Signs Vital signs: Vital Signs Temp 97.8 F 04/28/22 07:52 Pulse 92 04/28/22 07:52 Resp 18 04/28/22 07:52 BP 106/65 04/28/22 07:52 Pulse Ox 98 04/28/22 07:52 FiO2 Intake & Output 04/27/22 04/28/22 04/28/22 18:59 06:59 18:59 Intake Total 516 1400 118 Output Total 300 275 Balance 216 1125 118 Intake: Intake, IV Titration 1400 Amount Dextrose 5% in Water 1, 1400 000 ml @ 200 mls/hr IV . Q5H [facility] Rx#:[id number] Oral 236 118 Blood Product 280 Rc Pheresis As-3 Unit 280 [id number] Output: Urine 300 275 Other: Voiding Method Indwelling Catheter Indwelling Catheter Indwelling Catheter # Bowel Movements 1 - Exam General appearance: Present: average body habitus, cooperative, no acute distress, very much debilitated and the patient has signs of diffuse muscle atrophy caring a body mass index of 21.8 Head exam was generally normal. There was no scleral icterus or corneal arcus. Mucous membranes were moist. The patient has a scar of previous craniotomy HENT; Eyes: Present: anicteric sclerae, EOMI, PERRLA, normal appearance, mucous membranes are dry Neck: Present: normal ROM. Absent: lymphadenopathy, rigidity, thyromegaly Carotids: negative: bruit present Thyroid: bilateral: normal size, negative: enlarged, nodule Respiratory: bilateral: CTA, negative: rales, rhonchi, wheezing Cardiovascular: regular; normal: S1, S2 Gastrointestinal: normal bowel sounds, soft. Absent: distended, organomegaly, tenderness Genitourinary Comment(s): deferred Integumentary: Present: normal turgor. Absent: jaundiced, rash, ulcer Neurologic: Unable to assess, chronic neurologic deficit secondary to previous brain surgery resident ablate tumor. - Labs CBC & Chem 7: 04/27/22 18:58 04/28/22 11:37 Labs: Abnormal Lab Results - Last 24 Hours (Table) 04/27/22 04/27/22 04/27/22 Range/Units 11:34 12:09 13:44 WBC (3.8-10.6) k/uL RBC (4.30-5.90) m/uL Hgb (13.0-17.5) gm/dL Hct (39.0-53.0) % MCV (80.0-100.0) fL MCHC (31.0-37.0) g/dL RDW (11.5-15.5) % Plt Count (150-450) k/uL ABG pCO2 (35-45) mmHg ABG pO2 (83-108) mmHg ABG HCO3 (21-25) mmol/L ABG O2 Saturation (94-97) % ABG Hematocrit (34.0-46.0) % Hemoglobin (13.0-17.5) gm/dL Sodium 163 H* (137-145) mmol/L Potassium (3.5-5.1) mmol/L Chloride (98-107) mmol/L Carbon Dioxide (22-30) mmol/L BUN (9-20) mg/dL Creatinine (0.66-1.25) mg/dL Glucose (74-99) mg/dL POC Glucose (mg/dL) 229 H (70-110) mg/dL Calcium (8.4-10.2) mg/dL C. difficile (EIA) Intrp Positive A (Negative) 04/27/22 04/27/22 04/27/22 Range/Units 18:31 18:58 18:58 WBC 10.8 H (3.8-10.6) k/uL RBC 3.04 L (4.30-5.90) m/uL Hgb 8.6 L (13.0-17.5) gm/dL Hct 30.5 L (39.0-53.0) % MCV 100.3 H (80.0-100.0) fL MCHC 28.1 L (31.0-37.0) g/dL RDW 17.7 H (11.5-15.5) % Plt Count 108 L (150-450) k/uL ABG pCO2 32 L (35-45) mmHg ABG pO2 127 H (83-108) mmHg ABG HCO3 18 L (21-25) mmol/L ABG O2 Saturation 99.3 H (94-97) % ABG Hematocrit 26 L (34.0-46.0) % Hemoglobin 8.4 L (13.0-17.5) gm/dL Sodium 162 H* (137-145) mmol/L Potassium (3.5-5.1) mmol/L Chloride 132 H* (98-107) mmol/L Carbon Dioxide 18 L (22-30) mmol/L BUN 85 H (9-20) mg/dL Creatinine 3.26 H (0.66-1.25) mg/dL Glucose 169 H (74-99) mg/dL POC Glucose (mg/dL) (70-110) mg/dL Calcium 7.5 L (8.4-10.2) mg/dL C. difficile (EIA) Intrp (Negative) 04/27/22 04/28/22 04/28/22 Range/Units 20:15 00:16 06:35 WBC (3.8-10.6) k/uL RBC (4.30-5.90) m/uL Hgb (13.0-17.5) gm/dL Hct (39.0-53.0) % MCV (80.0-100.0) fL MCHC (31.0-37.0) g/dL RDW (11.5-15.5) % Plt Count (150-450) k/uL ABG pCO2 (35-45) mmHg ABG pO2 (83-108) mmHg ABG HCO3 (21-25) mmol/L ABG O2 Saturation (94-97) % ABG Hematocrit (34.0-46.0) % Hemoglobin (13.0-17.5) gm/dL Sodium (137-145) mmol/L Potassium (3.5-5.1) mmol/L Chloride (98-107) mmol/L Carbon Dioxide (22-30) mmol/L BUN (9-20) mg/dL Creatinine (0.66-1.25) mg/dL Glucose (74-99) mg/dL POC Glucose (mg/dL) 198 H 193 H 131 H (70-110) mg/dL Calcium (8.4-10.2) mg/dL C. difficile (EIA) Intrp (Negative) 04/28/22 Range/Units 07:09 WBC (3.8-10.6) k/uL RBC (4.30-5.90) m/uL Hgb (13.0-17.5) gm/dL Hct (39.0-53.0) % MCV (80.0-100.0) fL MCHC (31.0-37.0) g/dL RDW (11.5-15.5) % Plt Count (150-450) k/uL ABG pCO2 (35-45) mmHg ABG pO2 (83-108) mmHg ABG HCO3 (21-25) mmol/L ABG O2 Saturation (94-97) % ABG Hematocrit (34.0-46.0) % Hemoglobin (13.0-17.5) gm/dL Sodium 155 H (137-145) mmol/L Potassium 3.3 L (3.5-5.1) mmol/L Chloride 126 H (98-107) mmol/L Carbon Dioxide 19 L (22-30) mmol/L BUN 74 H (9-20) mg/dL Creatinine 2.91 H (0.66-1.25) mg/dL Glucose 175 H (74-99) mg/dL POC Glucose (mg/dL) (70-110) mg/dL Calcium 7.0 L (8.4-10.2) mg/dL C. difficile (EIA) Intrp (Negative) Microbiology - Last 24 Hours (Table) 04/26/22 21:15 Blood Culture - Preliminary Blood No Growth after 24 hours 04/26/22 21:10 Blood Culture - Preliminary Blood No Growth after 24 hours 04/26/22 21:26 Urine Culture - Preliminary Urine,Voided Assessment and Plan Assessment: 1. UTI/sepsis - Patient has been placed on IV cefepime and vancomycin; blood cultures and urine cultures obtained - ID is consulted for further recommendations - We will monitor CBC, CRP and pro-calcitonin 2. Acute on chronic kidney disease; patient's baseline creatinine is around 2; creatinine upon admission is elevated at 3.26; patient received IV fluid hydration in ED; we will continue with IV fluids and monitor renal function and electrolytes; monitor strict RAMSES's; avoid nephrotoxins and hypotension - Nephrology on board for further recommendations 3. Hypernatremia; sodium at 162 upon admission; up to 163 this morning; patient did receive normal saline bolus and infusion from ED; we will discontinue normal saline; patient will benefit from free water however unable to start patient on D5 water due to hyperglycemia and diabetes; we will place patient on half-normal saline at rate of 75 mL an hour; we will monitor electrolytes every 4 hours and make further adjustments - Consult nephrology for further recommendations 4. Acute GI bleed/acute blood loss anemia; we will monitor H&H closely with plans to transfuse for any further drop in hemoglobin; we will consult general surgery for GI bleed; start patient on Protonix 40 mg IV daily - Patient remains on home dose of Aranesp 5. Hyperglycemia without acidosis/diabetes mellitus; monitor Accu-Cheks every before meals and at bedtime with insulin sliding scale 6. Atrial fibrillation; rate controlled on metoprolol 7. Hypertension; patient takes metoprolol and lisinopril; we will hold off on lisinopril 2 renal function improves DVT prophylaxis; SCDs only CODE STATUS; full code
[2022-04-28 16:48] LABS: Glucose,Whole Blood 115 mg/dL (70-110)
[2022-04-28 18:57] LABS: Calcium 7.3 mg/dL (8.4-10.2); Potassium 3.8 mmol/L (3.5-5.1); Total Bilirubin 0.4 mg/dL (0.2-1.3); Total Protein 4.8 g/dL (6.3-8.2)
[2022-04-28 21:37] LABS: Glucose,Whole Blood 123 mg/dL (70-110)
[2022-04-28] MEDS: SERTRALINE 50 MG TAB PO SCH (21:47)
--- NOTE | 2022-04-28 23:09 | P.CONS ---
History of Present Illness - Reason for Consult Consult date: 04/28/22 Sepsis UTI C. diff Requesting physician: Modesta Fulton - Chief Complaint Weakness and mental status changes x one day - History of Present Illness Patient is a 87-year-old male [facility] resident patient has been brought into the ER 2 nights ago for evaluation of mental status changes apparently the patient did have mental decline over the past 3 days before presentation to the hospital and there was concern for possible left-sided facial droop patient was also hypertensive and hypoxic with a need for supplemental oxygen and did have a Ramirez catheter for urinary retention on presentation to the hospital the patient was afebrile and no fever have been r ecorded subsequently patient did have a normal white count initially hemoglobin was six-point 9 repeat white count was mildly elevated did have elevated BUN/creatinine liver enzymes has been normal patient did have a positive UA urine drug screen was negative stool for C. difficile came back positive COVID testing was negative urine showing a gram-negative bacilli patient is currently being treated with vancomycin and cefepime infectious disease was consulted for further management of antibiotic therapy most information has been obtained from review the chart and talking to the nursing staff as the patient is pleasantly confused slightly agitated and did not answer any question appropriately Review of Systems Positive points has been mentioned in HPI complete review could not be obtained because of his underlying mental status Past Medical History Past Medical History: Atrial Fibrillation, Cancer, COPD, Diabetes Mellitus, Eye Disorder, Hearing Disorder / Deafness, Hypertension, Pneumonia, Prostate Disorder, Renal Disease Additional Past Medical History / Comment(s): Pt recently admitted to [facility] on 01/25/20 with a mechanical fall/hematoma R buttock and acute blood loss anemia. Other hx: 2010 Brain cancer with surgery and radiation, L nephrectomy d/t deteriorating kidney, CKD stage III, BPH, chronic thrombocytopenia, chronic anemia, diet controlled diabetes, generalized arthritis, L2 compression fracture, blind R eye, [place] blaterally, seasonal allergies. 05/14/21 admitted with abdominal hematoma History of Any Multi-Drug Resistant Organisms: None Reported Past Surgical History: No Surgical Hx Reported Additional Past Surgical History / Comment(s): L nephrectomy, brain tumor removal, bilateral cataract removals, colonoscopy. Past Anesthesia/Blood Transfusion Reactions: No Reported Reaction Additional Past Anesthesia/Blood Transfusion Reaction / Comm: Pt has received blood in past without reaction. Past Psychological History: Depression Smoking Status: Former smoker Past Alcohol Use History: None Reported Past Drug Use History: None Reported - Past Family History Father Family Medical History: No Reported History Additional Family Medical History / Comment(s): Father was healthy. He at the age of 62yrs in a MVA. Mother Additional Family Medical History / Comment(s): Mother at the age of 86yrs of "heart problems." Brother(s) Additional Family Medical History / Comment(s): Patient has 3 brothers and one is passed from old age. Patient has 4 sisters with no major medical problems. Patient had 2 children one from muscular dystrophy and one is alive with no major medical problems. Medications and Allergies Home Medications Medication Instructions Recorded Confirmed Type Sertraline [Zoloft] 50 mg PO HS@209901/25/20 04/26/22 History allopurinoL [Zyloprim] 100 mg PO HS@209901/25/20 04/26/22 History Acetaminophen [Tylenol] 650 mg PO Q6H PRN 12/11/21 04/26/22 History Ferrous Sulfate 330 mg PO BID@0900,209902/28/22 04/26/22 History Multivitamins, Thera Liquid 5 ml PO DAILY@89902/28/22 04/26/22 History [Theragran Liquid (formulary)] Nitroglycerin Sl Tabs [Nitrostat] 0.4 mg SUBLINGUAL Q5M PRN 02/28/22 04/26/22 History Omeprazole 20 mg PO DAILY@59902/28/22 04/26/22 History Collagenase [Santyl Ointment] 1 applic TOPICAL Q12H 04/02/22 04/26/22 History Darbepoetin Ten [Aranesp] 40 mcg SQ FR@209904/02/22 04/26/22 History Lactose-Reduced Food [Ensure Plus] 1 can PO DAILY@89904/02/22 04/26/22 History Dapagliflozin Propanediol [Farxiga] 5 mg PO DAILY@89904/09/22 04/26/22 History Furosemide [Lasix] 40 mg PO BID@0600,1400 04/09/22 04/26/22 History Metoprolol Tartrate [Lopressor] 25 mg PO BID@0900,209904/09/22 04/26/22 History lisinopriL [Zestril] 2.5 mg PO DAILY@0900 PRN 04/26/22 04/26/22 History Allergies Allergy/AdvReac Type Severity Reaction Status Date / Time No Known Allergies Allergy Verified 04/26/22 23:15 Physical Exam Vitals: Vital Signs Temp Pulse Resp BP Pulse Ox 04/28/22 12:00 97.6 F 91 19 115/60 94 L 04/28/22 07:52 97.8 F 92 18 106/65 98 04/28/22 04:00 98.0 F 93 16 98/60 97 04/28/22 02:00 90 17 04/28/22 00:00 98.3 F 90 17 101/63 98 04/27/22 20:00 97.9 F 85 16 92/61 97 04/27/22 18:09 17 110/68 99 04/27/22 15:31 98.1 F 100 18 89/57 100 Intake and Output 04/28/22 04/28/22 04/28/22 06:59 14:59 22:59 Intake Total 1400 118 Output Total 275 400 Balance 1125 -282 Intake: Intake, IV Titration 1400 Amount Dextrose 5% in Water 1, 1400 000 ml @ 200 mls/hr IV . Q5H [facility] Rx#:[id number] Oral 118 Output: Urine 275 400 Other: Voiding Method Indwelling Catheter Indwelling Catheter # Bowel Movements 1 Weight 63.503 kg GENERAL DESCRIPTION: Elderly male lying in bed, no distress. No tachypnea or ac cessory muscle of respiration use. HEENT: Shows Pallor , no scleral icterus. Oral mucous membrane is dry. No pharyngeal erythema or thrush NECK: Trachea central, no thyromegaly. LUNGS: Unlabored breathing. Decreased breath sounds at the base. HEART: S1, S2, regular rate and rhythm. No loud murmur ABDOMEN: Soft, no tenderness , guarding or rigidity, no organomegaly EXTREMITIES: No edema of feet. SKIN: No rash, no masses palpable. NEUROLOGICAL: The patient is lethargic and orientation could not be determined Results CBC & Chem 7: 05/03/22 07:15 05/03/22 07:15 Labs: Abnormal Lab Results - Last 24 Hours (Table) 04/27/22 04/27/22 04/27/22 Range/Units 18:31 18:58 18:58 WBC 10.8 H (3.8-10.6) k/uL RBC 3.04 L (4.30-5.90) m/uL Hgb 8.6 L (13.0-17.5) gm/dL Hct 30.5 L (39.0-53.0) % MCV 100.3 H (80.0-100.0) fL MCHC 28.1 L (31.0-37.0) g/dL RDW 17.7 H (11.5-15.5) % Plt Count 108 L (150-450) k/uL ABG pCO2 32 L (35-45) mmHg ABG pO2 127 H (83-108) mmHg ABG HCO3 18 L (21-25) mmol/L ABG O2 Saturation 99.3 H (94-97) % ABG Hematocrit 26 L (34.0-46.0) % Hemoglobin 8.4 L (13.0-17.5) gm/dL Sodium 162 H* (137-145) mmol/L Potassium (3.5-5.1) mmol/L Chloride 132 H* (98-107) mmol/L Carbon Dioxide 18 L (22-30) mmol/L BUN 85 H (9-20) mg/dL Creatinine 3.26 H (0.66-1.25) mg/dL Glucose 169 H (74-99) mg/dL POC Glucose (mg/dL) (70-110) mg/dL Calcium 7.5 L (8.4-10.2) mg/dL AST (17-59) U/L Total Protein (6.3-8.2) g/dL Albumin (3.5-5.0) g/dL 04/27/22 04/28/22 04/28/22 Range/Units 20:15 00:16 06:35 WBC (3.8-10.6) k/uL RBC (4.30-5.90) m/uL Hgb (13.0-17.5) gm/dL Hct (39.0-53.0) % MCV (80.0-100.0) fL MCHC (31.0-37.0) g/dL RDW (11.5-15.5) % Plt Count (150-450) k/uL ABG pCO2 (35-45) mmHg ABG pO2 (83-108) mmHg ABG HCO3 (21-25) mmol/L ABG O2 Saturation (94-97) % ABG Hematocrit (34.0-46.0) % Hemoglobin (13.0-17.5) gm/dL Sodium (137-145) mmol/L Potassium (3.5-5.1) mmol/L Chloride (98-107) mmol/L Carbon Dioxide (22-30) mmol/L BUN (9-20) mg/dL Creatinine (0.66-1.25) mg/dL Glucose (74-99) mg/dL POC Glucose (mg/dL) 198 H 193 H 131 H (70-110) mg/dL Calcium (8.4-10.2) mg/dL AST (17-59) U/L Total Protein (6.3-8.2) g/dL Albumin (3.5-5.0) g/dL 04/28/22 04/28/22 04/28/22 Range/Units 07:09 11:36 11:37 WBC (3.8-10.6) k/uL RBC (4.30-5.90) m/uL Hgb (13.0-17.5) gm/dL Hct (39.0-53.0) % MCV (80.0-100.0) fL MCHC (31.0-37.0) g/dL RDW (11.5-15.5) % Plt Count (150-450) k/uL ABG pCO2 (35-45) mmHg ABG pO2 (83-108) mmHg ABG HCO3 (21-25) mmol/L ABG O2 Saturation (94-97) % ABG Hematocrit (34.0-46.0) % Hemoglobin (13.0-17.5) gm/dL Sodium 155 H 152 H (137-145) mmol/L Potassium 3.3 L 3.2 L (3.5-5.1) mmol/L Chloride 126 H 125 H (98-107) mmol/L Carbon Dioxide 19 L 19 L (22-30) mmol/L BUN 74 H 72 H (9-20) mg/dL Creatinine 2.91 H 2.79 H (0.66-1.25) mg/dL Glucose 175 H 168 H (74-99) mg/dL POC Glucose (mg/dL) 160 H (70-110) mg/dL Calcium 7.0 L 7.0 L (8.4-10.2) mg/dL AST 12 L (17-59) U/L Total Protein 4.5 L (6.3-8.2) g/dL Albumin 1.9 L (3.5-5.0) g/dL Microbiology - Last 24 Hours (Table) 04/26/22 21:26 Urine Culture - Preliminary Urine,Voided Gram Neg Bacilli 04/26/22 21:15 Blood Culture - Preliminary Blood No Growth after 24 hours 04/26/22 21:10 Blood Culture - Preliminary Blood No Growth after 24 hours Assessment and Plan (1) C. difficile colitis Current Visit: Yes Status: Acute Code(s): A04.72 - ENTEROCOLITIS D/T CLOSTRIDIUM DIFFICILE, NOT SPCF RECUR SNOMED Code(s): 640906290 (2) UTI (urinary tract infection) Current Visit: Yes Status: Acute Code(s): N39.0 - URINARY TRACT INFECTION, SITE NOT SPECIFIED SNOMED Code(s): 32402798 Plan: 1patient presented to hospital with mental status changes likely multifactorial likely component of catheter associated UTI and also having a component of C. difficile colitis complicating overall clinical condition. 2we will like to change his Ramirez catheter and obtain urine culture from the new Ramirez. 3continue with cefepime while waiting for the urine culture to finalize however would like to give the antibiotic exposure to the minimum. 4continue with oral vancomycin for C. difficile colitis we will add Questran if diarrhea persist. We will follow on clinical condition and cultures to further adjust medication if needed Thank you for this consultation will follow this patient along with you Time with Patient: Greater than 30
[2022-04-28 23:55] LABS: Calcium 7.2 mg/dL (8.4-10.2); Potassium 3.2 mmol/L (3.5-5.1)
[2022-04-29] MEDS: POTASSIUM CHLORIDE ER 20 MEQ TAB.ER PO STA ×2 (03:23→03:31)
[2022-04-29] MEDS ORDERED: POTASSIUM CHLORIDE 20 MEQ in WATER FOR INJECTION 1 100ML.BAG IVPB ONE (05:30)
[2022-04-29] MEDS: DEXTROSE 5% IN WATER 1,000 ML IV SCH (05:40)
[2022-04-29 06:35] LABS: Glucose,Whole Blood 136 mg/dL (70-110)
[2022-04-29] MEDS: INSULIN ASPART (NovoLOG) 100 UNIT/ML VIAL SQ SCH ×4 (06:36→22:10)
[2022-04-29 08:21] LABS: Magnesium 1.3 mg/dL (1.6-2.3); Potassium 3.6 mmol/L (3.5-5.1); Total Bilirubin 0.4 mg/dL (0.2-1.3); Total Protein 4.6 g/dL (6.3-8.2)
[2022-04-29 08:42] LABS: Anisocytosis Slight; Basophils % (A) 0 %; Eosinophils # (A) 0.1 k/uL (0-0.7); Eosinophils % (A) 1 %; HCT 24.6 % (39.0-53.0); HGB 7.2 gm/dL (13.0-17.5); Hypochromasia Marked; Lymphocytes # (A) 1.9 k/uL (1.0-4.8); Lymphocytes % (A) 23 %; MCHC 29.5 g/dL (31.0-37.0); MCV 98.3 fL (80.0-100.0); Macrocytosis Slight; Mean Platelet Volume 14.2; Monocytes # (A) 0.3 k/uL (0-1.0); Monocytes % (A) 3 %; Neutrophils # (A) 5.9 k/uL (1.3-7.7); Neutrophils % (A) 71 %; Poikilocytosis Slight; RDW 17.7 % (11.5-15.5); WBC 8.4 k/uL (3.8-10.6)
[2022-04-29] MEDS: [UNRECOGNIZED DRUG - OTHER] IV SCH ×6 (09:13→23:21)
[2022-04-29] MEDS: METOPROLOL TARTRATE 25 MG TAB PO SCH ×2 (09:13→22:10)
[2022-04-29] MEDS: WATER IV SCH ×6 (09:13→23:21)
[2022-04-29] MEDS: SODIUM BICARB IV SCH ×6 (09:13→23:21)
[2022-04-29] MEDS: PANTOPRAZOLE 40 MG/10 ML VIAL IV SCH (09:13)
[2022-04-29] MEDS: VANCOMYCIN 125 MG CAPSULE PO SCH (09:13)
[2022-04-29] MEDS: DEXTROSE 5% IV SCH ×6 (09:13→23:21)
[2022-04-29] MEDS: CEFEPIME 1 GM in SODIUM CHLORIDE 0.9% 50 ML IVPB SCH ×2 (09:13→22:10)
[2022-04-29 10:13] LABS: Large Platelets Present; Platelet Count 89 k/uL (150-450)
--- NOTE | 2022-04-29 10:20 | P.PN ---
Subjective Patient is seen for follow-up for hyponatremia and acute kidney injury. He is maintained on D5W. Serum sodium has been improving and renal function has improved as well. Patient remains confused however mentation is improved from initial admission. He does have baseline dementia Objective - Vital Signs Vital signs: Vital Signs Temp 99.2 F 04/29/22 09:24 Pulse 104 H 04/29/22 09:24 Resp 18 04/29/22 09:24 BP 107/54 04/29/22 09:24 Pulse Ox 98 04/29/22 09:24 FiO2 Intake & Output 04/28/22 04/29/22 04/29/22 18:59 06:59 18:59 Intake Total 236 660 Output Total 400 500 Balance -164 160 Weight 63.503 kg Intake: Intake, IV Titration 550 Amount Dextrose 5% in Water 1, 550 000 ml @ 50 mls/hr IV . Q20H [facility] Rx#:[id number] Oral 236 110 Output: Urine 400 500 Other: Voiding Method Indwelling Catheter Indwelling Catheter Indwelling Catheter # Bowel Movements 1 - Exam Awake, comfortable, confused not in any acute distress Examination of the heart S1 and S2 Examination of the lungs bilateral breath sounds are heard Abdomen is soft nontender Examination of the lower extremity shows no edema - Labs CBC & Chem 7: 04/29/22 07:21 04/29/22 07:21 Labs: Abnormal Lab Results - Last 24 Hours (Table) 04/28/22 04/28/22 04/28/22 Range/Units 11:36 11:37 16:46 RBC (4.30-5.90) m/uL Hgb (13.0-17.5) gm/dL Hct (39.0-53.0) % MCHC (31.0-37.0) g/dL RDW (11.5-15.5) % Plt Count (150-450) k/uL Sodium 152 H (137-145) mmol/L Potassium 3.2 L (3.5-5.1) mmol/L Chloride 125 H (98-107) mmol/L Carbon Dioxide 19 L (22-30) mmol/L BUN 72 H (9-20) mg/dL Creatinine 2.79 H (0.66-1.25) mg/dL Glucose 168 H (74-99) mg/dL POC Glucose (mg/dL) 160 H 115 H (70-110) mg/dL Calcium 7.0 L (8.4-10.2) mg/dL Magnesium (1.6-2.3) mg/dL AST 12 L (17-59) U/L Total Protein 4.5 L (6.3-8.2) g/dL Albumin 1.9 L (3.5-5.0) g/dL 04/28/22 04/28/22 04/28/22 Range/Units 18:14 21:35 22:55 RBC (4.30-5.90) m/uL Hgb (13.0-17.5) gm/dL Hct (39.0-53.0) % MCHC (31.0-37.0) g/dL RDW (11.5-15.5) % Plt Count (150-450) k/uL Sodium 151 H 149 H (137-145) mmol/L Potassium 3.2 L (3.5-5.1) mmol/L Chloride 123 H 122 H (98-107) mmol/L Carbon Dioxide 17 L 17 L (22-30) mmol/L BUN 71 H 68 H (9-20) mg/dL Creatinine 2.90 H 2.90 H (0.66-1.25) mg/dL Glucose 160 H 141 H (74-99) mg/dL POC Glucose (mg/dL) 123 H (70-110) mg/dL Calcium 7.3 L 7.2 L (8.4-10.2) mg/dL Magnesium (1.6-2.3) mg/dL AST 12 L (17-59) U/L Total Protein 4.8 L (6.3-8.2) g/dL Albumin 2.0 L (3.5-5.0) g/dL 04/29/22 04/29/22 04/29/22 Range/Units 06:29 07:21 07:21 RBC 2.50 L (4.30-5.90) m/uL Hgb 7.2 L (13.0-17.5) gm/dL Hct 24.6 L (39.0-53.0) % MCHC 29.5 L (31.0-37.0) g/dL RDW 17.7 H (11.5-15.5) % Plt Count 89 L (150-450) k/uL Sodium 148 H (137-145) mmol/L Potassium (3.5-5.1) mmol/L Chloride 124 H (98-107) mmol/L Carbon Dioxide 17 L (22-30) mmol/L BUN 67 H (9-20) mg/dL Creatinine 2.87 H (0.66-1.25) mg/dL Glucose 122 H (74-99) mg/dL POC Glucose (mg/dL) 136 H (70-110) mg/dL Calcium 7.0 L (8.4-10.2) mg/dL Magnesium 1.3 L (1.6-2.3) mg/dL AST 13 L (17-59) U/L Total Protein 4.6 L (6.3-8.2) g/dL Albumin 2.0 L (3.5-5.0) g/dL Microbiology - Last 24 Hours (Table) 04/26/22 21:26 Urine Culture - Final Urine,Voided Proteus mirabilis 04/26/22 21:15 Blood Culture - Preliminary Blood No Growth after 48 hours 04/26/22 21:10 Blood Culture - Preliminary Blood No Growth after 48 hours Assessment and Plan Assessment: 1. Hypernatremia secondary to free water deficit, improved D5W. 2. Acute kidney injury prerenal currently improving with IV hydration 3. Mental status changes secondary to hypernatremia currently improving 4. Underlying dementia 5. CK D stage IV secondary to nephrosclerosis baseline creatinine about 1.7-1.8 mg/dL with multiple episodes of acute kidney injury in February and August of this year with peak creatinine at 4.9 mg/dL 6. Pyuria rule out UTI Plan: Switch to IV bicarb Continue to encourage increase oral intake Replaced potassium
[2022-04-29] MEDS ORDERED: Magnesium Replacement Protocol 1 EACH MISC MISCELLANE PRN (10:37)
[2022-04-29 11:56] LABS: Glucose,Whole Blood 131 mg/dL (70-110)
[2022-04-29] MEDS: VANCOMYCIN ORAL SOLUTION 250 MG/5 ML BOTTLE PO SCH ×3 (12:10→22:12)
--- NOTE | 2022-04-29 12:11 | P.PN ---
Progress Note - Text Progress Note Date: 04/29/22 The patient is being treated for C. diff colitis. This may be the source of the heme positive stool. No plan for endoscopy this admission. If EGD and colonoscopy are desired, he can be seen as outpatient
--- NOTE | 2022-04-29 13:20 | P.PN ---
Subjective Progress Note Date: 04/29/22 On today's evaluation of 04/29/2022, the patient is doing better. The patient is adequately resuscitated and the patient is currently switched from D5 water bicarb infusion. This was done by nephrology. Note that the electrodes from today shows 0 bicarb of 17. Sodium level is 148. Anion gap is at 7. Is at 67 with a creatinine of 2.8. The white cell count is at 8.4 with a hemoglobin of 7.2. The patient is normotensive. The patient is on 5 L of oxygen by nasal cannula with a pulse ox of 97%. Stool for C. diff was positive and the patient is still having diarrhea less. The patient on oral vancomycin. The urine cultures also positive for Proteus mirabilis. Objective - Vital Signs Vital signs: Vital Signs Temp 98.9 F 04/29/22 12:00 Pulse 101 H 04/29/22 12:00 Resp 19 04/29/22 12:00 BP 105/57 04/29/22 12:00 Pulse Ox 97 04/29/22 12:00 FiO2 Intake & Output 04/28/22 04/29/22 04/29/22 18:59 06:59 18:59 Intake Total 236 660 Output Total 400 500 Balance -164 160 Weight 63.503 kg Intake: Intake, IV Titration 550 Amount Dextrose 5% in Water 1, 550 000 ml @ 50 mls/hr IV . Q20H [facility] Rx#:[id number] Oral 236 110 Output: Urine 400 500 Other: Voiding Method Indwelling Catheter Indwelling Catheter Indwelling Catheter # Bowel Movements 1 - Exam General appearance: Present: average body habitus, cooperative, no acute distress, very much debilitated and the patient has signs of diffuse muscle atrophy caring a body mass index of 21.8 Head exam was generally normal. There was no scleral icterus or corneal arcus. Mucous membranes were moist. The patient has a scar of previous craniotomy HENT; Eyes: Present: anicteric sclerae, EOMI, PERRLA, normal appearance, mucous membranes are dry Neck: Present: normal ROM. Absent: lymphadenopathy, rigidity, thyromegaly Carotids: negative: bruit present Thyroid: bilateral: normal size, negative: enlarged, nodule Respiratory: bilateral: CTA, negative: rales, rhonchi, wheezing Cardiovascular: regular; normal: S1, S2 Gastrointestinal: normal bowel sounds, soft. Absent: distended, organomegaly, tenderness Genitourinary Comment(s): deferred Integumentary: Present: normal turgor. Absent: jaundiced, rash, ulcer Neurologic: Unable to assess, chronic neurologic deficit secondary to previous brain surgery resident ablate tumor. - Labs CBC & Chem 7: 04/29/22 07:21 04/29/22 07:21 Labs: Abnormal Lab Results - Last 24 Hours (Table) 04/28/22 04/28/22 04/28/22 Range/Units 16:46 18:14 21:35 RBC (4.30-5.90) m/uL Hgb (13.0-17.5) gm/dL Hct (39.0-53.0) % MCHC (31.0-37.0) g/dL RDW (11.5-15.5) % Plt Count (150-450) k/uL Sodium 151 H (137-145) mmol/L Potassium (3.5-5.1) mmol/L Chloride 123 H (98-107) mmol/L Carbon Dioxide 17 L (22-30) mmol/L BUN 71 H (9-20) mg/dL Creatinine 2.90 H (0.66-1.25) mg/dL Glucose 160 H (74-99) mg/dL POC Glucose (mg/dL) 115 H 123 H (70-110) mg/dL Calcium 7.3 L (8.4-10.2) mg/dL Magnesium (1.6-2.3) mg/dL AST 12 L (17-59) U/L Total Protein 4.8 L (6.3-8.2) g/dL Albumin 2.0 L (3.5-5.0) g/dL 04/28/22 04/29/22 04/29/22 Range/Units 22:55 06:29 07:21 RBC 2.50 L (4.30-5.90) m/uL Hgb 7.2 L (13.0-17.5) gm/dL Hct 24.6 L (39.0-53.0) % MCHC 29.5 L (31.0-37.0) g/dL RDW 17.7 H (11.5-15.5) % Plt Count 89 L (150-450) k/uL Sodium 149 H (137-145) mmol/L Potassium 3.2 L (3.5-5.1) mmol/L Chloride 122 H (98-107) mmol/L Carbon Dioxide 17 L (22-30) mmol/L BUN 68 H (9-20) mg/dL Creatinine 2.90 H (0.66-1.25) mg/dL Glucose 141 H (74-99) mg/dL POC Glucose (mg/dL) 136 H (70-110) mg/dL Calcium 7.2 L (8.4-10.2) mg/dL Magnesium (1.6-2.3) mg/dL AST (17-59) U/L Total Protein (6.3-8.2) g/dL Albumin (3.5-5.0) g/dL 04/29/22 04/29/22 Range/Units 07:21 11:42 RBC (4.30-5.90) m/uL Hgb (13.0-17.5) gm/dL Hct (39.0-53.0) % MCHC (31.0-37.0) g/dL RDW (11.5-15.5) % Plt Count (150-450) k/uL Sodium 148 H (137-145) mmol/L Potassium (3.5-5.1) mmol/L Chloride 124 H (98-107) mmol/L Carbon Dioxide 17 L (22-30) mmol/L BUN 67 H (9-20) mg/dL Creatinine 2.87 H (0.66-1.25) mg/dL Glucose 122 H (74-99) mg/dL POC Glucose (mg/dL) 131 H (70-110) mg/dL Calcium 7.0 L (8.4-10.2) mg/dL Magnesium 1.3 L (1.6-2.3) mg/dL AST 13 L (17-59) U/L Total Protein 4.6 L (6.3-8.2) g/dL Albumin 2.0 L (3.5-5.0) g/dL Microbiology - Last 24 Hours (Table) 04/26/22 21:26 Urine Culture - Final Urine,Voided Proteus mirabilis 04/26/22 21:15 Blood Culture - Preliminary Blood No Growth after 48 hours 04/26/22 21:10 Blood Culture - Preliminary Blood No Growth after 48 hours Assessment and Plan Plan: Severe dehydration with intravascular volume depletion secondary to diarrhea and probably diminished oral intake. Acute C. 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 The patient was given a unit of packed RBC with adequate response COPD Diabetes mellitus Hard of hearing Deafness BPH [facility] resident with extensive comorbidities including a severe degenerat yordy arthritis, compression fracture of the spine and the patient underwent laboratory with a full CODE STATUS Plan Continue bicarb infusion Monitor serum bicarbonate Monitor sodium level Monitor electrolytes Oral vancomycin regarding C. diff colitis Continued IV cefepime Responding clinically Aspiration precautions
--- NOTE | 2022-04-29 14:30 | P.PN ---
Subjective 87-year-old male who presents from a nursing facility. Has been having more mental decline over the last 3 days per EMS. Staff at the facility were struggling to provide his baseline for the patient. He currently is alert and oriented 2-3. They're concerned for maybe mild left-sided facial droop onset unknown time. Patient is also hypotensive. Baseline is on 4 L nasal cannula. His Ramirez catheter dependent. Presents for further evaluation of this time. Patient currently has no acute complaints. Is uncertain why he is here. Denies abdominal pain, chest pain. Denies any fevers, chills, cough. Denies any shortness of breath. Patient's Ramirez catheter does have dark urine that appears infected. Has a history of atrial fibrillation for which she is in A. fib at this time. Does not appear is still on blood thinners. Presents for further evaluation at this time. Patient is a limited historian. Laboratory completed in ED revealed a WBC of 8.0, hemoglobin of 6.9 and platelet count of 102, sodium 162, potassium 3.8, BUN/creatinine elevated at 97/3.48 and blood glucose of 245; BNP is elevated -- patient has been switched to D5 water at rate of 100 mL an hour; sodium is gradually improving with current sodium level of 152 down from 155 yesterday, BUN/creatinine improving from 74/2.9 down to 72/2.79; nephrology is on board Patient has been placed on oral vancomycin for C. diff colitis; urine culture reveals gram-negative cocci; patient remains on IV cefepime Nephrology recommending to continue with IV fluids and hold Lasix and monitor renal function and electrolytes, strict RAMSES's, avoid nephrotoxins and hypotensio n We will continue to monitor renal function and electrolytes closely; monitor CBC, CRP and pro-calcitonin 04/29/2022 Patient is awake but not interactive, he has good attention span but does not follow command, he looks calm, does not answer questions. He has been since in his hand. Also he is been treated for C. diff colitis with oral vancomycin, because of his swallowing difficulty with ALLERGIC to oral dose with a solution medicine but he asked for swallow evaluation by speech therapy team. Also patient has evidence of catheter associated UTI, currently is kept on cefepime with ID team on the case. Elevated creatinine is stable at 2.8 compared to 2.9. C. diff positive, occult blood in the stool positive. Urine culture, is growing Proteus. Patient currently kept on cefepime and oral vancomycin. D5W increased to 80 mL/h because of sodium elevated at 148. Creatinine stable at 2.8. Baseline around 2 per [employer]. Hemoglobin 7.2 Low blood pressure is slightly improving currently 105/57 and patient is slightly tachycardic around 101. Patient's saturating 95% on 5 L oxygen via nasal cannula Objective - Vital Signs Vital signs: Vital Signs Temp 98.9 F 04/29/22 12:00 Pulse 101 H 04/29/22 12:00 Resp 19 04/29/22 12:00 BP 105/57 04/29/22 12:00 Pulse Ox 97 04/29/22 12:00 FiO2 Intake & Output 04/28/22 04/29/22 04/29/22 18:59 06:59 18:59 Intake Total 236 660 Output Total 400 500 Balance -164 160 Weight 63.503 kg Intake: Intake, IV Titration 550 Amount Dextrose 5% in Water 1, 550 000 ml @ 50 mls/hr IV . Q20H [facility] Rx#:[id number] Oral 236 110 Output: Urine 400 500 Other: Voiding Method Indwelling Catheter Indwelling Catheter Indwelling Catheter # Bowel Movements 1 - Exam -GENERAL: The patient is confused, awake but does not follow commands but looks calm. HEENT: Pupils are round and equally reacting to light. EOMI. No scleral icterus. No conjunctival pallor. Normocephalic, atraumatic. No pharyngeal erythema. No thyromegaly. CARDIOVASCULAR: S1 and S2 present. No murmurs, rubs, or gallops. PULMONARY: Chest is clear to auscultation, no wheezing or crackles. ABDOMEN: Soft, nontender, nondistended, normoactive bowel sounds. No palpable organomegaly. MUSCULOSKELETAL: No joint swelling or deformity. -EXTREMITIES: No cyanosis, clubbing, or pedal edema. Has mittens in his hands NEUROLOGICAL: Gross neurological examination did not reveal any focal deficits. SKIN: No rashes. no petechiae. - Labs CBC & Chem 7: 04/29/22 07:21 04/29/22 07:21 Labs: Abnormal Lab Results - Last 24 Hours (Table) 09/04/22 09/04/22 09/04/22 Range/Units 16:46 18:14 21:35 RBC (4.30-5.90) m/uL Hgb (13.0-17.5) gm/dL Hct (39.0-53.0) % MCHC (31.0-37.0) g/dL RDW (11.5-15.5) % Plt Count (150-450) k/uL Sodium 151 H (137-145) mmol/L Potassium (3.5-5.1) mmol/L Chloride 123 H (98-107) mmol/L Carbon Dioxide 17 L (22-30) mmol/L BUN 71 H (9-20) mg/dL Creatinine 2.90 H (0.66-1.25) mg/dL Glucose 160 H (74-99) mg/dL POC Glucose (mg/dL) 115 H 123 H (70-110) mg/dL Calcium 7.3 L (8.4-10.2) mg/dL Magnesium (1.6-2.3) mg/dL AST 12 L (17-59) U/L Total Protein 4.8 L (6.3-8.2) g/dL Albumin 2.0 L (3.5-5.0) g/dL 04/28/22 04/29/22 04/29/22 Range/Units 22:55 06:29 07:21 RBC 2.50 L (4.30-5.90) m/uL Hgb 7.2 L (13.0-17.5) gm/dL Hct 24.6 L (39.0-53.0) % MCHC 29.5 L (31.0-37.0) g/dL RDW 17.7 H (11.5-15.5) % Plt Count 89 L (150-450) k/uL Sodium 149 H (137-145) mmol/L Potassium 3.2 L (3.5-5.1) mmol/L Chloride 122 H (98-107) mmol/L Carbon Dioxide 17 L (22-30) mmol/L BUN 68 H (9-20) mg/dL Creatinine 2.90 H (0.66-1.25) mg/dL Glucose 141 H (74-99) mg/dL POC Glucose (mg/dL) 136 H (70-110) mg/dL Calcium 7.2 L (8.4-10.2) mg/dL Magnesium (1.6-2.3) mg/dL AST (17-59) U/L Total Protein (6.3-8.2) g/dL Albumin (3.5-5.0) g/dL 04/29/22 04/29/22 Range/Units 07:21 11:42 RBC (4.30-5.90) m/uL Hgb (13.0-17.5) gm/dL Hct (39.0-53.0) % MCHC (31.0-37.0) g/dL RDW (11.5-15.5) % Plt Count (150-450) k/uL Sodium 148 H (137-145) mmol/L Potassium (3.5-5.1) mmol/L Chloride 124 H (98-107) mmol/L Carbon Dioxide 17 L (22-30) mmol/L BUN 67 H (9-20) mg/dL Creatinine 2.87 H (0.66-1.25) mg/dL Glucose 122 H (74-99) mg/dL POC Glucose (mg/dL) 131 H (70-110) mg/dL Calcium 7.0 L (8.4-10.2) mg/dL Magnesium 1.3 L (1.6-2.3) mg/dL AST 13 L (17-59) U/L Total Protein 4.6 L (6.3-8.2) g/dL Albumin 2.0 L (3.5-5.0) g/dL Microbiology - Last 24 Hours (Table) 04/26/22 21:26 Urine Culture - Final Urine,Voided Proteus mirabilis 04/26/22 21:15 Blood Culture - Preliminary Blood No Growth after 48 hours 04/26/22 21:10 Blood Culture - Preliminary Blood No Growth after 48 hours Assessment and Plan Assessment: 1. UTI/sepsis secondary to Proteus. Also secondary to - Patient has been placed on IV cefepime - ID is consulted for further recommendations 2. Acute on chronic kidney disease; patient's baseline creatinine is around 2; creatinine upon admission is elevated at 3.26; patient received IV fluid hydration in ED; we will continue with IV fluids and monitor renal function and electrolytes; monitor strict RAMSES's; avoid nephrotoxins and hypotension - Nephrology on board for further recommendations 3. Hypernatremia; -Continue with D5W at 80 mL per hour and monitor sodium level - Consult nephrology for further recommendations 4. Acute GI bleed/acute blood loss anemia; we will monitor H&H closely with pl ans to transfuse for any further drop in hemoglobin; - general surgery for GI bleed; start patient on Protonix 40 mg IV daily. No endoscopy as in-house and it may be deferred as an outpatient per surgery after treatment of C. diff colitis - Patient remains on home dose of Aranesp 5. Hyperglycemia without acidosis/diabetes mellitus; monitor Accu-Cheks every before meals and at bedtime with insulin sliding scale 6. C. diff colitis -Continue with oral vancomycin for C. diff colitis - ID is consulted for further recommendations 7. Hypertension; patient takes metoprolol and lisinopril; we will hold off on lisinopril 2 renal function improves 8. Chronic A. fib,rate control on metoprolol. No tic admission for GI bleed DVT prophylaxis; SCDs only CODE STATUS; full code Dr. Cazares will resume the care of the patient tomorrow
[2022-04-29 16:58] LABS: Glucose,Whole Blood 129 mg/dL (70-110)
[2022-04-29 22:00] LABS: Glucose,Whole Blood 196 mg/dL (70-110)
[2022-04-29] MEDS: SERTRALINE 50 MG TAB PO SCH (22:10)
[2022-04-30 06:05] LABS: Glucose,Whole Blood 141 mg/dL (70-110)
[2022-04-30] MEDS: INSULIN ASPART (NovoLOG) 100 UNIT/ML VIAL SQ SCH ×4 (06:09→21:42)
[2022-04-30 08:06] LABS: Glucose,Whole Blood 143 mg/dL (70-110)
--- NOTE | 2022-04-30 08:24 | P.PN ---
Subjective Progress Note Date: 04/29/22 Principal diagnosis: UTI and C. diff colitis Patient is a 87 year old male snf resident, who was sent to the ER for evaluation of mental status changes and some neurological symptoms patient did have a positive UA and a positive C. diff test. On today's evaluation medicine 04/29/2022, the patient is afebrile patient remains to be pleasantly confused and unable to provide any reliable history no vomiting or any worsening diarrhea reported by nursing staff Objective - Vital Signs Vital signs: Vital Signs Temp 98.7 F 04/29/22 16:00 Pulse 101 H 04/29/22 16:00 Resp 18 04/29/22 16:00 BP 100/54 04/29/22 16:00 Pulse Ox 94 L 04/29/22 16:00 FiO2 Intake & Output 04/29/22 04/29/22 04/30/22 06:59 18:59 06:59 Intake Total 660 240 Output Total 500 Balance 160 240 Intake: Intake, IV Titration 550 Amount Dextrose 5% in Water 1, 550 000 ml @ 50 mls/hr IV . Q20H [facility] Rx#:[id number] Oral 110 240 Output: Urine 500 Other: Voiding Method Indwelling Catheter Indwelling Catheter # Bowel Movements 2 - Exam GENERAL DESCRIPTION: An elderly male lying in bed in no distress RESPIRATORY SYSTEM: Unlabored breathing , decreased breath sounds at bases HEART: S1 S2 regular rate and rhythm , ABDOMEN: Soft , no tenderness EXTREMITIES: No edema feet - Labs CBC & Chem 7: 04/29/22 07:21 04/29/22 07:21 Labs: Abnormal Lab Results - Last 24 Hours (Table) 04/28/22 04/29/22 04/29/22 Range/Units 22:55 06:29 07:21 RBC 2.50 L (4.30-5.90) m/uL Hgb 7.2 L (13.0-17.5) gm/dL Hct 24.6 L (39.0-53.0) % MCHC 29.5 L (31.0-37.0) g/dL RDW 17.7 H (11.5-15.5) % Plt Count 89 L (150-450) k/uL Sodium 149 H (137-145) mmol/L Potassium 3.2 L (3.5-5.1) mmol/L Chloride 122 H (98-107) mmol/L Carbon Dioxide 17 L (22-30) mmol/L BUN 68 H (9-20) mg/dL Creatinine 2.90 H (0.66-1.25) mg/dL Glucose 141 H (74-99) mg/dL POC Glucose (mg/dL) 136 H (70-110) mg/dL Calcium 7.2 L (8.4-10.2) mg/dL Magnesium (1.6-2.3) mg/dL AST (17-59) U/L Total Protein (6.3-8.2) g/dL Albumin (3.5-5.0) g/dL 04/29/22 04/29/22 04/29/22 Range/Units 07:21 11:42 16:41 RBC (4.30-5.90) m/uL Hgb (13.0-17.5) gm/dL Hct (39.0-53.0) % MCHC (31.0-37.0) g/dL RDW (11.5-15.5) % Plt Count (150-450) k/uL Sodium 148 H (137-145) mmol/L Potassium (3.5-5.1) mmol/L Chloride 124 H (98-107) mmol/L Carbon Dioxide 17 L (22-30) mmol/L BUN 67 H (9-20) mg/dL Creatinine 2.87 H (0.66-1.25) mg/dL Glucose 122 H (74-99) mg/dL POC Glucose (mg/dL) 131 H 129 H (70-110) mg/dL Calcium 7.0 L (8.4-10.2) mg/dL Magnesium 1.3 L (1.6-2.3) mg/dL AST 13 L (17-59) U/L Total Protein 4.6 L (6.3-8.2) g/dL Albumin 2.0 L (3.5-5.0) g/dL Microbiology - Last 24 Hours (Table) 04/26/22 21:26 Urine Culture - Final Urine,Voided Proteus mirabilis 04/26/22 21:15 Blood Culture - Preliminary Blood No Growth after 48 hours 04/26/22 21:10 Blood Culture - Preliminary Blood No Growth after 48 hours Assessment and Plan (1) C. difficile colitis Current Visit: Yes Status: Acute Code(s): A04.72 - ENTEROCOLITIS D/T CLOSTRIDIUM DIFFICILE, NOT SPCF RECUR SNOMED Code(s): 434151954 (2) UTI (urinary tract infection) Current Visit: Yes Status: Acute Code(s): N39.0 - URINARY TRACT INFECTION, SITE NOT SPECIFIED SNOMED Code(s): 98109379 Plan: 1patient presented to hospital with mental status changes likely multifactorial likely component of catheter associated UTI and also having a component of C. difficile colitis complicating overall clinical condition. 2waiting for the change his Ramirez catheter and urine culture from the new Ramirez. 3patient to continue with cefepime while waiting for the urine culture to finalize however would like to give the antibiotic exposure to the minimum. 4patient to continue with oral vancomycin for C. difficile colitis we will add Questran if diarrhea persist.
[2022-04-30] MEDS: METOPROLOL TARTRATE 25 MG TAB PO SCH ×2 (09:09→21:43)
[2022-04-30] MEDS: VANCOMYCIN ORAL SOLUTION 250 MG/5 ML BOTTLE PO SCH ×4 (09:09→21:42)
[2022-04-30] MEDS: PANTOPRAZOLE 40 MG/10 ML VIAL IV SCH (09:09)
[2022-04-30] MEDS: CEFEPIME 1 GM in SODIUM CHLORIDE 0.9% 50 ML IVPB SCH ×2 (09:09→21:42)
[2022-04-30 09:32] LABS: Anisocytosis Slight; HGB 7.2 gm/dL (13.0-17.5); Hypochromasia Marked; MCH 28.9 pg (25.0-35.0); MCHC 29.8 g/dL (31.0-37.0); MCV 96.9 fL (80.0-100.0); Macrocytosis Slight; Mean Platelet Volume 13.6; RBC 2.47 m/uL (4.30-5.90); RDW 17.7 % (11.5-15.5); WBC 6.7 k/uL (3.8-10.6)
[2022-04-30 09:42] LABS: Albumin 2.1 g/dL (3.5-5.0); Calcium 7.5 mg/dL (8.4-10.2); Magnesium 1.4 mg/dL (1.6-2.3); Potassium 3.7 mmol/L (3.5-5.1); Total Bilirubin 0.5 mg/dL (0.2-1.3); Total Protein 4.9 g/dL (6.3-8.2)
[2022-04-30 10:12] LABS: Platelet Count 86 k/uL (150-450)
[2022-04-30 11:54] LABS: Glucose,Whole Blood 154 mg/dL (70-110)
[2022-04-30] MEDS: SODIUM BICARB IV SCH ×3 (12:04)
[2022-04-30] MEDS: [UNRECOGNIZED DRUG - OTHER] IV SCH ×3 (12:04)
[2022-04-30] MEDS: DEXTROSE 5% IV SCH ×3 (12:04)
[2022-04-30] MEDS: WATER IV SCH ×3 (12:04)
[2022-04-30 19:09] LABS: Glucose,Whole Blood 155 mg/dL (70-110)
[2022-04-30 20:30] LABS: Glucose,Whole Blood 152 mg/dL (70-110)
[2022-04-30] MEDS: SERTRALINE 50 MG TAB PO SCH (21:42)
--- NOTE | 2022-04-30 22:21 | P.PN ---
Subjective Progress Note Date: 04/30/22 Principal diagnosis: Severe dehydration and intravascular volume depletion secondary to diarrhea and poor oral intake Reevaluated today on 04/30/22, patient seems to be doing much better, not in any distress, he is on 5 L nasal cannula and O2 sats is 95%. He is hemodynamically stable with a blood pressure 108/65 temp is 98 1, patient is confused, not a great historian. WBC count is 6.7 hemoglobin is 7.2 platelets are 86,006 sodium remains high at 149, patient is receiving D5W for his hypernatremia BUN is 61 creatinine 2.60. Remains on cefepime and again he is on D5W at 80 mL per hour. Patient is on oral vancomycin to 50 mg by mouth 4 times a day. Objective - Vital Signs Vital signs: Vital Signs Temp 98.1 F 04/30/22 12:00 Pulse 95 04/30/22 12:00 Resp 17 04/30/22 12:00 BP 108/65 04/30/22 12:00 Pulse Ox 95 04/30/22 12:00 FiO2 Intake & Output 04/30/22 04/30/22 05/01/22 06:59 18:59 06:59 Intake Total 0 Output Total 600 300 Balance -600 -300 Intake: Oral 0 Output: Urine 600 300 Other: Voiding Method Indwelling Catheter Indwelling Catheter # Bowel Movements 1 - Exam Physical Exam revealed 87-year-old white male, looks frail and chronically ill, in no distress, he has diffuse muscle wasting and his BMI is 21.8. Head: atraumatic normocephalic. HEENT:[Neck is supple.] [No neck masses.] [No thyromegaly.] [No JVD.] Chest: [Diminished breath sound bilaterally no rhonchi and no wheezes.] Cardiac Exam: [Normal S1 and S2, no S3 gallop, no murmur.] Abdomen: [Soft, nontender, no megaly, no rebound, no guarding, normal bowel sounds.] Extremities: [No clubbing, no edema, no cyanosis.] Neurological Exam: Patient seems to be confused, he had previous brain surgery, not a great historian. Skin: No rashes. - Labs CBC & Chem 7: 04/30/22 09:07 04/30/22 09:07 Labs: Abnormal Lab Results - Last 24 Hours (Table) 04/30/22 04/30/22 04/30/22 Range/Units 06:04 08:01 09:07 RBC (4.30-5.90) m/uL Hgb (13.0-17.5) gm/dL Hct (39.0-53.0) % MCHC (31.0-37.0) g/dL RDW (11.5-15.5) % Plt Count (150-450) k/uL Sodium 149 H (137-145) mmol/L Chloride 120 H (98-107) mmol/L Carbon Dioxide 19 L (22-30) mmol/L BUN 61 H (9-20) mg/dL Creatinine 2.60 H (0.66-1.25) mg/dL Glucose 147 H (74-99) mg/dL POC Glucose (mg/dL) 141 H 143 H (70-110) mg/dL Calcium 7.5 L (8.4-10.2) mg/dL Magnesium 1.4 L (1.6-2.3) mg/dL AST 15 L (17-59) U/L Total Protein 4.9 L (6.3-8.2) g/dL Albumin 2.1 L (3.5-5.0) g/dL 04/30/22 04/30/22 04/30/22 Range/Units 09:07 11:50 16:38 RBC 2.47 L (4.30-5.90) m/uL Hgb 7.2 L (13.0-17.5) gm/dL Hct 24.0 L (39.0-53.0) % MCHC 29.8 L (31.0-37.0) g/dL RDW 17.7 H (11.5-15.5) % Plt Count 86 L (150-450) k/uL Sodium (137-145) mmol/L Chloride (98-107) mmol/L Carbon Dioxide (22-30) mmol/L BUN (9-20) mg/dL Creatinine (0.66-1.25) mg/dL Glucose (74-99) mg/dL POC Glucose (mg/dL) 154 H 155 H (70-110) mg/dL Calcium (8.4-10.2) mg/dL Magnesium (1.6-2.3) mg/dL AST (17-59) U/L Total Protein (6.3-8.2) g/dL Albumin (3.5-5.0) g/dL 04/30/22 Range/Units 20:28 RBC (4.30-5.90) m/uL Hgb (13.0-17.5) gm/dL Hct (39.0-53.0) % MCHC (31.0-37.0) g/dL RDW (11.5-15.5) % Plt Count (150-450) k/uL Sodium (137-145) mmol/L Chloride (98-107) mmol/L Carbon Dioxide (22-30) mmol/L BUN (9-20) mg/dL Creatinine (0.66-1.25) mg/dL Glucose (74-99) mg/dL POC Glucose (mg/dL) 152 H (70-110) mg/dL Calcium (8.4-10.2) mg/dL Magnesium (1.6-2.3) mg/dL AST (17-59) U/L Total Protein (6.3-8.2) g/dL Albumin (3.5-5.0) g/dL Microbiology - Last 24 Hours (Table) 04/30/22 09:15 Urine Culture - Preliminary Urine,Catheterized 04/26/22 21:10 Blood Culture - Preliminary Blood No Growth after 72 hours 04/26/22 21:15 Blood Culture - Preliminary Blood No Growth after 72 hours Assessment and Plan Assessment: Impression: Severe dehydration and intravascular volume depletion secondary to diarrhea and poor oral intake Acute hypernatremia secondary to free water deficit Acute C. difficile colitis, on oral vancomycin Chronic kidney disease stage III, acute on chronic kidney injury Chronic atrial fibrillation on anticoagulation therapy History of recurrent urinary tract infection secondary to Proteus mirabilis. History of brain cancer and previous craniotomy/radiation with residual neurological deficit including blindness and encephalopathy. History of previous nephrectomy Benign essential hypertension Chronic anemia Type 2 diabetes Underlying COPD Deafness Recommendation: Continue present supportive care measures Continue IV fluid Continue oral vancomycin Continue antibiotics Continued aspiration precaution Will continue to follow as needed. Overall prognosis remains guarded obviously the patient has multiple morbidities Time with Patient: Less than 30
[2022-05-01 06:09] LABS: Glucose,Whole Blood 130 mg/dL (70-110)
[2022-05-01] MEDS: INSULIN ASPART (NovoLOG) 100 UNIT/ML VIAL SQ SCH ×4 (06:22→21:11)
[2022-05-01] MEDS: SODIUM BICARB IV SCH ×3 (06:35)
[2022-05-01] MEDS: WATER IV SCH ×3 (06:35)
[2022-05-01] MEDS: [UNRECOGNIZED DRUG - OTHER] IV SCH ×3 (06:35)
[2022-05-01] MEDS: DEXTROSE 5% IV SCH ×3 (06:35)
[2022-05-01 08:15] LABS: Anisocytosis Slight; Basophils % (A) 0 %; Eosinophils # (A) 0.1 k/uL (0-0.7); Eosinophils % (A) 1 %; HCT 22.6 % (39.0-53.0); Hypochromasia Marked; Lymphocytes # (A) 1.3 k/uL (1.0-4.8); Lymphocytes % (A) 27 %; MCH 29.4 pg (25.0-35.0); MCHC 29.9 g/dL (31.0-37.0); MCV 98.1 fL (80.0-100.0); Macrocytosis Slight; Mean Platelet Volume 14.1; Monocytes # (A) 0.2 k/uL (0-1.0); Monocytes % (A) 4 %; Neutrophils # (A) 3.1 k/uL (1.3-7.7); Neutrophils % (A) 65 %; RDW 18.1 % (11.5-15.5); WBC 4.8 k/uL (3.8-10.6)
[2022-05-01 08:16] LABS: Platelet Count 61 k/uL (150-450)
[2022-05-01 08:18] LABS: HGB 6.8 gm/dL (13.0-17.5)
[2022-05-01 08:21] LABS: Potassium 3.5 mmol/L (3.5-5.1)
--- NOTE | 2022-05-01 08:46 | P.PN ---
Subjective Progress Note Date: 04/30/22 HISTORY OF PRESENT ILLNESS This is an 87-year-old male patient with past medical history of Parkinsons d isease, Alzheimers dementia, diabetes mellitus type 2, chronic atrial fibrillation not on anticoagulation due to retroperitoneal hematoma, benign prostatic hypertrophy, chronic kidney disease with history of left-sided nephrectomy, history of large retroperitoneal hematoma 04/2021, history of aspira tion pneumonia, chronic thrombocytopenia, chronic anemia. He has had multiple hospitalizations over the past year including UTI and streptococcal bacteremia, A. fib with RVR and aspiration pneumonia, subdural hematoma requiring transfer to [facility] with no surgical intervention provided, recent hospitalized for Macdonald catheter associated urinary tract infection, acute kidney injury, DKA, metabolic acidosis, A. fib with RVR, metabolic encephalopathy. Patient was sent in to [facility] emergency center due to decreasing mental status for the past 3 days, possible left facial droop, hypotension. Patient was initially admitted into intensive care unit and treated for severe dehydration, acute C. difficile colitis, severe hypernatremia acute kidney injury and chronic kidney disease,. Patient has been stabilized and transferred to the cardiac stepdown unit. Multiple consultants are following the patient including sfdc technical architect, infectious disease, general surgery, nephrology. Urine culture was finalized with Proteus mirabilis and patient is currently on cefepime, Macdonald catheter has been changed. So he remains high at 149 and patient is on drip of D5W, BUN 61 creatinine 2.6. Patient is also on oral vancomycin for C. difficile colitis. REVIEW OF SYSTEMS Constitutional: no fever, no chills, no night sweats. No weight change. Noted weakness, noted fatigue no lethargy. Noted daytime sleepiness. EENT: No headache. No blurred vision or double vision, no loss of vision. No loss of Hearing, no ringingin the ears, no dizziness. No nasal drainage or congestion. No epistaxis. No sore throat. Lungs: No shortness of breath at rest, no cough, no sputum production. No wheezing. Cardiovascular: No chest pain, no lower extremity edema. No palpitations. No paroxysmal nocturnal dyspnea. No orthopnea. No lightheadedness or dizziness. No syncopal episodes. Abdominal: No abdominal pain. No nausea, vomiting. No diarrhea. No constipation. No bloody or tarry stools. Noted loss of appetite-chronic. Genitourinary: No dysuria, increased frequency, urgency. Chronic urinary retention with chronic macdonald cath. Musculoskeletal: No myalgias. No muscle weakness, reported chronic gait dysfunction, no frequent falls. No back pain. No neck pain. Integumentary: No wounds, no lesions. No rash or pruritus. No unusual bruising. No change in hair or nails. Neurologic: No aphasia. No facial droop. Noted change in mentation due to dementia. No head injury. No headache. No paralysis. No paresthesia. Psychiatric: No depression. No anxiety. No mood swings. Endocrine: Noted abnormal blood sugars. No weight change. No excessive sweating or thirst. No cold intolerance. PHYSICAL EXAMINATION Gen: This is an 87-year-old male. He is resting in bed and appears to be comfortable. No respiratory distress is noted, no coughing noted. HEENT: Head is atraumatic, normocephalic. Pupils equal, round. Sclerae is anicteric. NECK: Supple. No JVD. No lymphadenopathy. No thyromegaly. LUNGS: Decreased breath sounds bilaterally with a few scattered rhonchi. No intercostal retractions. HEART: Irregular rate and rhythm. 2/6 systolic murmur. ABDOMEN: Soft. Bowel sounds are present. No masses. No tenderness. Macdonald draining vincenzo urine with sediment. EXTREMITIES: No pedal edema. No calf tenderness. Dorsalis pedis palpable bilaterally. NEUROLOGICAL: Patient is awake, oriented to person and able to answer simple questions, generalized weakness. ASSESSMENT AND PLAN 1. Severe dehydration secondary to poor oral intake and diarrhea. Patient is currently on D5W at 80 mL/h, followed by nephrology sfdc technical architect. 2. Acute hyponatremia secondary to free water deficit. Patient is currently on D5W. 3. Acute C. difficile colitis. Patient has been seen by infectious disease, continued on oral vancomycin. 4. Acute kidney injury with chronic kidney disease stage III. Continue to monitor, avoid nephrotoxic agents. 5. Acute Proteus mirabilis catheter-associated urinary tract infection. Patient is currently on cefepime, infectious disease consult appreciated. 6. Permanent atrial fibrillation. Patient is not on anticoagulation due to retroperitoneal hematoma and subdural hematoma. 7. Anemia of chronic disease, rule out acute GI bleed. Consult with general surgery deferred and may have outpatient EGD and colonoscopy if needed. Continue patient on ferrous sulfate 325 mg twice daily, Aranesp 40 g every Friday. Continue patient on Protonix 40 mg IV daily. 8. COPD without exacerbation. 6. Chronic hypoxic respiratory failure usually on 2 L nasal cannula. Continue oxygen therapy. 7. Diabetes mellitus type 2. Continue NovoLog scale. 8. Benign prostatic hypertrophy with urinary retention and chronic Macdonald catheter. 9. Chronic kidney disease stage III with history of left-sided nephrectomy. Avoid nephrotoxic agents. 10. History of large retroperitoneal hematoma with acute blood loss, stable, 04/2021. 11. History of subdural hematoma, not requiring surgery. 12. Chronic gout. Hold allopurinol 100 mg daily. 13. Recurrent depression. Continue Zoloft 50 mg at bedtime. 14. Generalized anxiety disorder. 15. GI prophylaxis. Protonix 40 mg IV push daily. 16. DVT prophylaxis. SCDs and JARRET marcial CODE STATUS: Full code. Prognosis guarded DISCHARGE PLAN Return to [facility] Objective - Vital Signs Vital signs: Vital Signs Temp 99 F 04/30/22 09:29 Pulse 100 04/30/22 09:29 Resp 18 04/30/22 09:29 BP 99/66 04/30/22 09:29 Pulse Ox 96 04/30/22 09:29 FiO2 Intake & Output 04/29/22 04/30/22 04/30/22 18:59 06:59 18:59 Intake Total 240 0 Output Total 600 300 Balance 240 -600 -300 Intake: Oral 240 0 Output: Urine 600 300 Other: Voiding Method Indwelling Catheter Indwelling Catheter Indwelling Catheter # Bowel Movements 2 1 - Labs CBC & Chem 7: 05/01/22 07:45 05/01/22 07:45 Labs: Abnormal Lab Results - Last 24 Hours (Table) 04/29/22 04/29/22 04/30/22 Range/Units 16:41 21:59 06:04 RBC (4.30-5.90) m/uL Hgb (13.0-17.5) gm/dL Hct (39.0-53.0) % MCHC (31.0-37.0) g/dL RDW (11.5-15.5) % Plt Count (150-450) k/uL Sodium (137-145) mmol/L Chloride (98-107) mmol/L Carbon Dioxide (22-30) mmol/L BUN (9-20) mg/dL Creatinine (0.66-1.25) mg/dL Glucose (74-99) mg/dL POC Glucose (mg/dL) 129 H 196 H 141 H (70-110) mg/dL Calcium (8.4-10.2) mg/dL Magnesium (1.6-2.3) mg/dL AST (17-59) U/L Total Protein (6.3-8.2) g/dL Albumin (3.5-5.0) g/dL 04/30/22 04/30/22 04/30/22 Range/Units 08:01 09:07 09:07 RBC 2.47 L (4.30-5.90) m/uL Hgb 7.2 L (13.0-17.5) gm/dL Hct 24.0 L (39.0-53.0) % MCHC 29.8 L (31.0-37.0) g/dL RDW 17.7 H (11.5-15.5) % Plt Count 86 L (150-450) k/uL Sodium 149 H (137-145) mmol/L Chloride 120 H (98-107) mmol/L Carbon Dioxide 19 L (22-30) mmol/L BUN 61 H (9-20) mg/dL Creatinine 2.60 H (0.66-1.25) mg/dL Glucose 147 H (74-99) mg/dL POC Glucose (mg/dL) 143 H (70-110) mg/dL Calcium 7.5 L (8.4-10.2) mg/dL Magnesium 1.4 L (1.6-2.3) mg/dL AST 15 L (17-59) U/L Total Protein 4.9 L (6.3-8.2) g/dL Albumin 2.1 L (3.5-5.0) g/dL 04/30/22 Range/Units 11:50 RBC (4.30-5.90) m/uL Hgb (13.0-17.5) gm/dL Hct (39.0-53.0) % MCHC (31.0-37.0) g/dL RDW (11.5-15.5) % Plt Count (150-450) k/uL Sodium (137-145) mmol/L Chloride (98-107) mmol/L Carbon Dioxide (22-30) mmol/L BUN (9-20) mg/dL Creatinine (0.66-1.25) mg/dL Glucose (74-99) mg/dL POC Glucose (mg/dL) 154 H (70-110) mg/dL Calcium (8.4-10.2) mg/dL Magnesium (1.6-2.3) mg/dL AST (17-59) U/L Total Protein (6.3-8.2) g/dL Albumin (3.5-5.0) g/dL Microbiology - Last 24 Hours (Table) 04/26/22 21:10 Blood Culture - Preliminary Blood No Growth after 72 hours 04/26/22 21:15 Blood Culture - Preliminary Blood No Growth after 72 hours 04/26/22 21:26 Urine Culture - Final Urine,Voided Proteus mirabilis
[2022-05-01] MEDS: CEFEPIME 1 GM in SODIUM CHLORIDE 0.9% 50 ML IVPB SCH ×2 (08:52→21:10)
[2022-05-01] MEDS: METOPROLOL TARTRATE 25 MG TAB PO SCH ×3 (08:52→21:11)
[2022-05-01] MEDS: PANTOPRAZOLE 40 MG/10 ML VIAL IV SCH (08:52)
[2022-05-01] MEDS: VANCOMYCIN ORAL SOLUTION 250 MG/5 ML BOTTLE PO SCH ×5 (08:53→21:11)
[2022-05-01] MEDS: DEXTROSE 5% IN WATER 1,000 ML IV SCH (11:22)
[2022-05-01 11:34] LABS: Glucose,Whole Blood 151 mg/dL (70-110)
[2022-05-01 14:51] LABS: Appearance,Urine Cloudy (Clear); Bacteria,Urine Rare /hpf; Bilirubin,Urine Negative (Negative); Blood,Urine Small (Negative); Budding Yeast,Urine Few /hpf; Color,Urine Light Yellow; Glucose,Urine (UA) Trace (Negative); Ketones,Urine Negative (Negative); Leukocyte Esterase,Urine Negative (Negative); Mucus,Urine Rare /hpf; Nitrite,Urine Negative (Negative); Protein,Urine 1+ (Negative); RBC,Urine 1 /hpf (0-5); Squamous Epithelial Cell,Urine <1 /hpf (0-4); Urobilinogen,Urine <2.0 mg/dL (<2.0); WBC,Urine 2 /hpf (0-5)
--- NOTE | 2022-05-01 14:58 | P.PN ---
Subjective Patient is seen for follow-up for hyponatremia and acute kidney injury. He is s/p D5W. Serum sodium has been improving and renal function has improved as well. Patient remains confused however mentation is improved from initial admission. He does have baseline dementia Currently maintained on bicarb drip Objective - Vital Signs Vital signs: Vital Signs Temp 97.5 F L 05/01/22 14:42 Pulse 93 05/01/22 14:42 Resp 16 05/01/22 14:42 BP 122/76 05/01/22 14:42 Pulse Ox 98 05/01/22 14:42 FiO2 Intake & Output 04/30/22 05/01/22 05/01/22 18:59 06:59 18:59 Intake Total 0 0 Output Total 300 1150 526 Balance -300 -1150 -526 Weight 63.503 kg Intake: Oral 0 Blood Product 0 Unit 0 Output: Urine 300 1150 525 Stool 1 Other: Voiding Method Indwelling Catheter Indwelling Catheter Indwelling Catheter - Exam Awake, comfortable, confused not in any acute distress Examination of the heart S1 and S2 Examination of the lungs bilateral breath sounds are heard Abdomen is soft nontender Examination of the lower extremity shows no edema - Labs CBC & Chem 7: 05/01/22 07:45 05/01/22 07:45 Labs: Abnormal Lab Results - Last 24 Hours (Table) 04/30/22 04/30/22 05/01/22 Range/Units 16:38 20:28 06:08 RBC (4.30-5.90) m/uL Hgb (13.0-17.5) gm/dL Hct (39.0-53.0) % MCHC (31.0-37.0) g/dL RDW (11.5-15.5) % Plt Count (150-450) k/uL Sodium (137-145) mmol/L Chloride (98-107) mmol/L BUN (9-20) mg/dL Creatinine (0.66-1.25) mg/dL Glucose (74-99) mg/dL POC Glucose (mg/dL) 155 H 152 H 130 H (70-110) mg/dL Calcium (8.4-10.2) mg/dL Urine Protein (Negative) Urine Glucose (UA) (Negative) Urine Blood (Negative) Urine Bacteria (None) /hpf Urine Mucus (None) /hpf Urine Yeast (Budding) (None) /hpf Crossmatch 05/01/22 05/01/22 05/01/22 Range/Units 07:45 07:45 09:49 RBC 2.30 L (4.30-5.90) m/uL Hgb 6.8 L* (13.0-17.5) gm/dL Hct 22.6 L (39.0-53.0) % MCHC 29.9 L (31.0-37.0) g/dL RDW 18.1 H (11.5-15.5) % Plt Count 61 L (150-450) k/uL Sodium 151 H (137-145) mmol/L Chloride 119 H (98-107) mmol/L BUN 50 H (9-20) mg/dL Creatinine 2.31 H (0.66-1.25) mg/dL Glucose 122 H (74-99) mg/dL POC Glucose (mg/dL) (70-110) mg/dL Calcium 7.0 L (8.4-10.2) mg/dL Urine Protein (Negative) Urine Glucose (UA) (Negative) Urine Blood (Negative) Urine Bacteria (None) /hpf Urine Mucus (None) /hpf Urine Yeast (Budding) (None) /hpf Crossmatch See Detail 05/01/22 05/01/22 Range/Units 11:33 14:30 RBC (4.30-5.90) m/uL Hgb (13.0-17.5) gm/dL Hct (39.0-53.0) % MCHC (31.0-37.0) g/dL RDW (11.5-15.5) % Plt Count (150-450) k/uL Sodium (137-145) mmol/L Chloride (98-107) mmol/L BUN (9-20) mg/dL Creatinine (0.66-1.25) mg/dL Glucose (74-99) mg/dL POC Glucose (mg/dL) 151 H (70-110) mg/dL Calcium (8.4-10.2) mg/dL Urine Protein 1+ H (Negative) Urine Glucose (UA) Trace H (Negative) Urine Blood Small H (Negative) Urine Bacteria Rare H (None) /hpf Urine Mucus Rare H (None) /hpf Urine Yeast (Budding) Few H (None) /hpf Crossmatch Microbiology - Last 24 Hours (Table) 04/30/22 09:15 Urine Culture - Final Urine,Catheterized 04/26/22 21:15 Blood Culture - Preliminary Blood No Growth after 96 hours 04/26/22 21:10 Blood Culture - Preliminary Blood No Growth after 96 hours Assessment and Plan Assessment: 1. Hypernatremia secondary to free water deficit, improving. 2. Acute kidney injury prerenal currently improving with IV hydration 3. Mental status changes secondary to hypernatremia currently improving 4. Underlying dementia 5. CK D stage IV secondary to nephrosclerosis baseline creatinine about 1.7-1.8 mg/dL with multiple episodes of acute kidney injury in February and August of this year with peak creatinine at 4.9 mg/dL 6. Pyuria rule out UTI Plan: Switch IVF back to D5W Repeat abs in am.
--- NOTE | 2022-05-01 15:41 | P.PN ---
Subjective Progress Note Date: 05/01/22 HISTORY OF PRESENT ILLNESS This is an 87-year-old male patient with past medical history of Parkinsons d isease, Alzheimers dementia, diabetes mellitus type 2, chronic atrial fibrillation not on anticoagulation due to retroperitoneal hematoma, benign prostatic hypertrophy, chronic kidney disease with history of left-sided nephrectomy, history of large retroperitoneal hematoma 04/2021, history of aspira tion pneumonia, chronic thrombocytopenia, chronic anemia. He has had multiple hospitalizations over the past year including UTI and streptococcal bacteremia, A. fib with RVR and aspiration pneumonia, subdural hematoma requiring transfer to [facility] with no surgical intervention provided, recent hospitalized for Macdonald catheter associated urinary tract infection, acute kidney injury, DKA, metabolic acidosis, A. fib with RVR, metabolic encephalopathy. Patient was sent in to [facility] emergency center due to decreasing mental status for the past 3 days, possible left facial droop, hypotension. Patient was initially admitted into intensive care unit and treated for severe dehydration, acute C. difficile colitis, severe hypernatremia acute kidney injury and chronic kidney disease,. Patient has been stabilized and transferred to the cardiac stepdown unit. Multiple consultants are following the patient including tester wafer substrate, infectious disease, general surgery, nephrology. Urine culture was finalized with Proteus mirabilis and patient is currently on cefepime, Macdonald catheter has been changed. So he remains high at 149 and patient is on drip of D5W, BUN 61 creatinine 2.6. Patient is also on oral vancomycin for C. difficile colitis. 05/01: Patient has been afebrile, heart rate 83, blood pressure 101/59, pulse ox 99% on 4 L nasal cannula. Repeat blood work reveals WBC of 4.8, hemoglobin 6.8 and platelet count 61. Sodium 151, potassium 3.5, chloride 119, CO2 24, BUN 50 creatinine 2.3. Capillary blood glucose running between 130 and 155. Calcium 7.0. Urine culture is positive for Proteus mirabilis, blood cultures are showing no growth after 96 hours 2 specimen. Patient will be transfused 1 unit of packed RBCs. Patient's mental status is decreased today, only opening eyes, intermittent lethargy. Patient is not eating, family have been called to come into the hospital. REVIEW OF SYSTEMS Constitutional: no fever, no chills, no night sweats. No weight change. Noted weakness, noted fatigue no lethargy. Noted daytime sleepiness. EENT: No headache. No blurred vision or double vision, no loss of vision. No loss of Hearing, no ringingin the ears, no dizziness. No nasal drainage or congestion. No epistaxis. No sore throat. Lungs: No shortness of breath at rest, no cough, no sputum production. No wheezing. Cardiovascular: No chest pain, no lower extremity edema. No palpitations. No paroxysmal nocturnal dyspnea. No orthopnea. No lightheadedness or dizziness. No syncopal episodes. Abdominal: No abdominal pain. No nausea, vomiting. No diarrhea. No constipation. No bloody or tarry stools. Noted loss of appetite-chronic. Genitourinary: No dysuria, increased frequency, urgency. Chronic urinary retention with chronic macdonald cath. Musculoskeletal: No myalgias. No muscle weakness, reported chronic gait dysfunction, no frequent falls. No back pain. No neck pain. Integumentary: No wounds, no lesions. No rash or pruritus. No unusual bruising. No change in hair or nails. Neurologic: No aphasia. No facial droop. Noted change in mentation due to dementia and acute illness. No head injury. No headache. No paralysis. No paresthesia. Psychiatric: No depression. No anxiety. No mood swings. Endocrine: Noted abnormal blood sugars. No weight change. No excessive sweating or thirst. No cold intolerance. PHYSICAL EXAMINATION Gen: This is an 87-year-old male. He is resting in bed and appears to be comfortable. No respiratory distress is noted, no coughing noted. HEENT: Head is atraumatic, normocephalic. Pupils equal, round. Sclerae is anicteric. NECK: Supple. No JVD. No lymphadenopathy. No thyromegaly. LUNGS: Decreased breath sounds bilaterally with a few scattered rhonchi. No intercostal retractions. HEART: Irregular rate and rhythm. 2/6 systolic murmur. ABDOMEN: Soft. Bowel sounds are present. No masses. No tenderness. Macdonald draining vincenzo urine with sediment. EXTREMITIES: No pedal edema. No calf tenderness. Dorsalis pedis palpable bilaterally. NEUROLOGICAL: Patient is awake, oriented to person, opens eyes to verbal stimuli and able to answer simple questions, generalized weakness. ASSESSMENT AND PLAN 1. Severe dehydration secondary to poor oral intake and diarrhea. Patient is currently on D5W at 75 mL/h, followed by nephrology and tester wafer substrate. 2. Acute hyponatremia secondary to free water deficit. Patient is currently on D5W. 3. Acute C. difficile colitis. Patient has been seen by infectious disease, continued on oral vancomycin. 4. Acute kidney injury with chronic kidney disease stage III. Continue to monitor, avoid nephrotoxic agents. 5. Acute Proteus mirabilis catheter-associated urinary tract infection. Patient is currently on cefepime, infectious disease consult appreciated. 6. Permanent atrial fibrillation. Patient is not on anticoagulation due to retroperitoneal hematoma and subdural hematoma. 7. Anemia of chronic disease, rule out acute GI bleed. Consult with general surgery deferred and may have outpatient EGD and colonoscopy if needed. Continue patient on ferrous sulfate 325 mg twice daily, Aranesp 40 g every Friday. Continue patient on Protonix 40 mg IV daily, transfuse 1 unit packed RBCs. 8. COPD without exacerbation. 6. Chronic hypoxic respiratory failure usually on 2 L nasal cannula. Continue oxygen therapy. 7. Diabetes mellitus type 2. Continue NovoLog scale. 8. Benign prostatic hypertrophy with urinary retention and chronic Macdonald catheter. 9. Chronic kidney disease stage III with history of left-sided nephrectomy. Avoid nephrotoxic agents. 10. History of large retroperitoneal hematoma with acute blood loss, stable, 04/2021. 11. History of subdural hematoma, not requiring surgery. 12. Chronic gout. Hold allopurinol 100 mg daily. 13. Recurrent depression. Continue Zoloft 50 mg at bedtime. 14. Generalized anxiety disorder. 15. GI prophylaxis. Protonix 40 mg IV push daily. 16. DVT prophylaxis. SCDs and JARRET hose CODE STATUS: Full code. Prognosis guarded DISCHARGE PLAN Return to [facility] Impression and plan of care have been directed as dictated by the signing physician. Cindy Tobias nurse practitioner acting as scribe for signing physician. Objective - Vital Signs Vital signs: Vital Signs Temp 98.3 F 05/01/22 04:15 Pulse 90 05/01/22 04:15 Resp 18 05/01/22 04:15 BP 116/70 05/01/22 04:15 Pulse Ox 96 05/01/22 04:15 FiO2 Intake & Output 04/30/22 05/01/22 05/01/22 18:59 06:59 18:59 Intake Total 0 Output Total 300 1150 Balance -300 -1150 Intake: Oral 0 Output: Urine 300 1150 Other: Voiding Method Indwelling Catheter Indwelling Catheter - Labs CBC & Chem 7: 05/01/22 07:45 05/01/22 07:45 Labs: Abnormal Lab Results - Last 24 Hours (Table) 04/30/22 04/30/22 04/30/22 Range/Units 08:01 09:07 09:07 RBC 2.47 L (4.30-5.90) m/uL Hgb 7.2 L (13.0-17.5) gm/dL Hct 24.0 L (39.0-53.0) % MCHC 29.8 L (31.0-37.0) g/dL RDW 17.7 H (11.5-15.5) % Plt Count 86 L (150-450) k/uL Sodium 149 H (137-145) mmol/L Chloride 120 H (98-107) mmol/L Carbon Dioxide 19 L (22-30) mmol/L BUN 61 H (9-20) mg/dL Creatinine 2.60 H (0.66-1.25) mg/dL Glucose 147 H (74-99) mg/dL POC Glucose (mg/dL) 143 H (70-110) mg/dL Calcium 7.5 L (8.4-10.2) mg/dL Magnesium 1.4 L (1.6-2.3) mg/dL AST 15 L (17-59) U/L Total Protein 4.9 L (6.3-8.2) g/dL Albumin 2.1 L (3.5-5.0) g/dL 04/30/22 04/30/22 04/30/22 Range/Units 11:50 16:38 20:28 RBC (4.30-5.90) m/uL Hgb (13.0-17.5) gm/dL Hct (39.0-53.0) % MCHC (31.0-37.0) g/dL RDW (11.5-15.5) % Plt Count (150-450) k/uL Sodium (137-145) mmol/L Chloride (98-107) mmol/L Carbon Dioxide (22-30) mmol/L BUN (9-20) mg/dL Creatinine (0.66-1.25) mg/dL Glucose (74-99) mg/dL POC Glucose (mg/dL) 154 H 155 H 152 H (70-110) mg/dL Calcium (8.4-10.2) mg/dL Magnesium (1.6-2.3) mg/dL AST (17-59) U/L Total Protein (6.3-8.2) g/dL Albumin (3.5-5.0) g/dL 05/01/22 Range/Units 06:08 RBC (4.30-5.90) m/uL Hgb (13.0-17.5) gm/dL Hct (39.0-53.0) % MCHC (31.0-37.0) g/dL RDW (11.5-15.5) % Plt Count (150-450) k/uL Sodium (137-145) mmol/L Chloride (98-107) mmol/L Carbon Dioxide (22-30) mmol/L BUN (9-20) mg/dL Creatinine (0.66-1.25) mg/dL Glucose (74-99) mg/dL POC Glucose (mg/dL) 130 H (70-110) mg/dL Calcium (8.4-10.2) mg/dL Magnesium (1.6-2.3) mg/dL AST (17-59) U/L Total Protein (6.3-8.2) g/dL Albumin (3.5-5.0) g/dL Microbiology - Last 24 Hours (Table) 04/26/22 21:15 Blood Culture - Preliminary Blood No Growth after 96 hours 04/26/22 21:10 Blood Culture - Preliminary Blood No Growth after 96 hours 04/30/22 09:15 Urine Culture - Preliminary Urine,Catheterized
[2022-05-01 16:23] LABS: Glucose,Whole Blood 121 mg/dL (70-110)
[2022-05-01 20:27] LABS: Glucose,Whole Blood 157 mg/dL (70-110)
[2022-05-01] MEDS: SERTRALINE 50 MG TAB PO SCH (21:11)
[2022-05-02] MEDS: DEXTROSE 5% IN WATER 1,000 ML IV SCH ×2 (05:20→18:20)
--- NOTE | 2022-05-02 06:14 | PN ---
PROGRESS NOTE SUBJECTIVE: The patient is seen for followup for acute kidney injury and hypernatremia. The patient is currently awake, comfortable. He is not in any acute distress. He remains confused. PHYSICAL EXAMINATION: VITAL SIGNS: On examination today, blood pressure 99/66, heart rate 90 per minute. The patient is afebrile. HEART: S1, S2. LUNGS: Bilateral breath sounds are heard. ABDOMEN: Soft, nontender. EXTREMITIES: Lower extremities shows no significant edema. 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 LABORATORY DATA: Show hemoglobin 7.2, sodium 149, potassium 3.7, chloride 120, BUN 61, serum creatinine 2.6 mg/dL. Magnesium 1.4. ASSESSMENT: 1. Acute kidney injury prerenal, currently improving. 2. Hypernatremia associated with free water deficit, improved with D5W. 3. Dementia with new mental status changes, which seem to have improved. 4. Chronic kidney disease, stage 4 secondary to nephrosclerosis. Baseline creatinine 1.7 to 1.8 mg/dL with multiple episodes of acute kidney injury in February and August of this year with peak creatinine at 4.9 mg/dL. 5. Urinary tract infection with urine culture growing Proteus mirabilis. PLAN: Continue with bicarb drip for now. Repeat labs in a.m. Continue with Aranesp. MMODL / IJN: [id number] /
[2022-05-02 06:27] LABS: Glucose,Whole Blood 122 mg/dL (70-110)
[2022-05-02] MEDS: INSULIN ASPART (NovoLOG) 100 UNIT/ML VIAL SQ SCH ×4 (06:30→21:00)
[2022-05-02] MEDS: CEFEPIME 1 GM in SODIUM CHLORIDE 0.9% 50 ML IVPB SCH (09:18)
[2022-05-02] MEDS: METOPROLOL TARTRATE 25 MG TAB PO SCH ×3 (09:18→21:41)
[2022-05-02] MEDS: PANTOPRAZOLE 40 MG/10 ML VIAL IV SCH (09:19)
[2022-05-02] MEDS: VANCOMYCIN ORAL SOLUTION 250 MG/5 ML BOTTLE PO SCH ×4 (09:19→21:40)
--- NOTE | 2022-05-02 10:56 | P.PN ---
Subjective Patient is seen for follow-up for hyponatremia and acute kidney injury. He is s/p D5W. Serum sodium has been improving and renal function has improved as well. Patient remains confused however mentation is improved from initial admission. He does have baseline dementia Restarted on D5W yesterday. Serum sodium was 151 yesterday. Labs are pending from today Objective - Vital Signs Vital signs: Vital Signs Temp 98.0 F 05/02/22 04:00 Pulse 82 05/02/22 04:00 Resp 18 05/02/22 04:00 BP 107/70 05/02/22 04:00 Pulse Ox 96 05/02/22 08:09 FiO2 Intake & Output 05/01/22 05/02/22 05/02/22 18:59 06:59 18:59 Intake Total 310 675 Output Total 526 802 Balance -216 -127 Weight 63.503 kg Intake: Intake, IV Titration 675 Amount Dextrose 5% in Water 1, 675 000 ml @ 75 mls/hr IV . [id number] [facility] Rx#:[id number] Blood Product 310 Rc As-1 Unit 310 [id number] Output: Urine 525 800 Stool 1 2 Other: Voiding Method Indwelling Catheter Indwelling Catheter - Exam Awake, comfortable, confused not in any acute distress Examination of the heart S1 and S2 Examination of the lungs bilateral breath sounds are heard Abdomen is soft nontender Examination of the lower extremity shows no edema - Labs CBC & Chem 7: 05/01/22 07:45 05/01/22 07:45 Labs: Abnormal Lab Results - Last 24 Hours (Table) 05/01/22 05/01/22 05/01/22 Range/Units 09:49 11:33 14:30 POC Glucose (mg/dL) 151 H (70-110) mg/dL Urine Protein 1+ H (Negative) Urine Glucose (UA) Trace H (Negative) Urine Blood Small H (Negative) Urine Bacteria Rare H (None) /hpf Urine Mucus Rare H (None) /hpf Urine Yeast (Budding) Few H (None) /hpf Crossmatch See Detail 05/01/22 05/01/22 05/02/22 Range/Units 16:22 20:25 06:25 POC Glucose (mg/dL) 121 H 157 H 122 H (70-110) mg/dL Urine Protein (Negative) Urine Glucose (UA) (Negative) Urine Blood (Negative) Urine Bacteria (None) /hpf Urine Mucus (None) /hpf Urine Yeast (Budding) (None) /hpf Crossmatch Microbiology - Last 24 Hours (Table) 04/26/22 21:10 Blood Culture - Preliminary Blood No Growth after 120 hours 04/26/22 21:15 Blood Culture - Preliminary Blood No Growth after 120 hours 04/30/22 09:15 Urine Culture - Final Urine,Catheterized Assessment and Plan Assessment: 1. Hypernatremia secondary to free water deficit, improving. 2. Acute kidney injury prerenal currently improving with IV hydration 3. Mental status changes secondary to hypernatremia currently improving 4. Underlying dementia 5. CK D stage IV secondary to nephrosclerosis baseline creatinine about 1.7-1.8 mg/dL with multiple episodes of acute kidney injury in February and August of this year with peak creatinine at 4.9 mg/dL 6. UTI with urine culture growing Proteus mirabilis Plan: Continue D5W Check labs today Repeat abs in am.
[2022-05-02 11:01] LABS: Calcium 7.1 mg/dL (8.4-10.2); Potassium 3.1 mmol/L (3.5-5.1)
[2022-05-02 11:16] LABS: Anisocytosis Slight; HCT 29.9 % (39.0-53.0); Hypochromasia Marked; MCH 28.9 pg (25.0-35.0); MCHC 29.9 g/dL (31.0-37.0); MCV 96.6 fL (80.0-100.0); Macrocytosis Slight; Mean Platelet Volume 14.1; Poikilocytosis Slight; RBC 3.09 m/uL (4.30-5.90); RDW 17.7 % (11.5-15.5); WBC 6.4 k/uL (3.8-10.6)
[2022-05-02 11:30] LABS: HGB 8.9 gm/dL (13.0-17.5)
[2022-05-02 11:37] LABS: Glucose,Whole Blood 165 mg/dL (70-110)
[2022-05-02 12:17] LABS: Platelet Count 65 k/uL (150-450)
[2022-05-02] MEDS ORDERED: POTASSIUM CHLORIDE ER 20 MEQ TAB.ER PO STA (12:29)
[2022-05-02] MEDS ORDERED: Potassium Replacement Protocol 1 EACH MISC MISCELLANE PRN (14:02)
[2022-05-02] MEDS ORDERED: POTASSIUM BICARBONATE/CIT AC 20 MEQ TABLET.EFF PO ONE (14:02)
--- NOTE | 2022-05-02 14:03 | P.PN ---
Subjective Progress Note Date: 05/02/22 HISTORY OF PRESENT ILLNESS This is an 87-year-old male patient with past medical history of Parkinsons d isease, Alzheimers dementia, diabetes mellitus type 2, chronic atrial fibrillation not on anticoagulation due to retroperitoneal hematoma, benign prostatic hypertrophy, chronic kidney disease with history of left-sided nephrectomy, history of large retroperitoneal hematoma 04/2021, history of aspira tion pneumonia, chronic thrombocytopenia, chronic anemia. He has had multiple hospitalizations over the past year including UTI and streptococcal bacteremia, A. fib with RVR and aspiration pneumonia, subdural hematoma requiring transfer to [facility] with no surgical intervention provided, recent hospitalized for Macdonald catheter associated urinary tract infection, acute kidney injury, DKA, metabolic acidosis, A. fib with RVR, metabolic encephalopathy. Patient was sent in to [facility] emergency center due to decreasing mental status for the past 3 days, possible left facial droop, hypotension. Patient was initially admitted into intensive care unit and treated for severe dehydration, acute C. difficile colitis, severe hypernatremia acute kidney injury and chronic kidney disease,. Patient has been stabilized and transferred to the cardiac stepdown unit. Multiple consultants are following the patient including kiln burner, infectious disease, general surgery, nephrology. Urine culture was finalized with Proteus mirabilis and patient is currently on cefepime, Macdonald catheter has been changed. So he remains high at 149 and patient is on drip of D5W, BUN 61 creatinine 2.6. Patient is also on oral vancomycin for C. difficile colitis. 05/01: Patient has been afebrile, heart rate 83, blood pressure 101/59, pulse ox 99% on 4 L nasal cannula. Repeat blood work reveals WBC of 4.8, hemoglobin 6.8 and platelet count 61. Sodium 151, potassium 3.5, chloride 119, CO2 24, BUN 50 creatinine 2.3. Capillary blood glucose running between 130 and 155. Calcium 7.0. Urine culture is positive for Proteus mirabilis, blood cultures are showing no growth after 96 hours 2 specimen. Patient will be transfused 1 unit of packed RBCs. Patient's mental status is decreased today, only opening eyes, intermittent lethargy. Patient is not eating, family have been called to come into the hospital. 05/02: Patient remains afebrile, heart rate 82, blood pressure 107/70, pulse ox 96% on 4 L nasal cannula. Due to hypernatremia, patient remains on D5W at 75 mL per hour. He is status post transfusion of 1 unit of packed RBCs. repeat hemoglobin is 8.9. Patient apparently ate 100% of his breakfast and most of his lunch today. He continues to have frequent diarrhea. We will add and Questran twice daily to help firm stools. Patient is stating that he is not hungry. Patient remains on IV antibiotics with cefepime and oral vancomycin. REVIEW OF SYSTEMS Constitutional: no fever, no chills, no night sweats. No weight change. Noted weakness, noted fatigue no lethargy. Noted daytime sleepiness. EENT: No headache. No blurred vision or double vision, no loss of vision. No loss of Hearing, no ringingin the ears, no dizziness. No nasal drainage or c ongestion. No epistaxis. No sore throat. Lungs: No shortness of breath at rest, no cough, no sputum production. No wheezing. Cardiovascular: No chest pain, no lower extremity edema. No palpitations. No paroxysmal nocturnal dyspnea. No orthopnea. No lightheadedness or dizziness. No syncopal episodes. Abdominal: No abdominal pain. No nausea, vomiting. No diarrhea. No constipation. No bloody or tarry stools. Noted loss of appetite-chronic and intermittent. Genitourinary: No dysuria, increased frequency, urgency. Chronic urinary retention with chronic macdonald cath. Musculoskeletal: No myalgias. No muscle weakness, reported chronic gait dysfunction, no frequent falls. No back pain. No neck pain. Integumentary: No wounds, no lesions. No rash or pruritus. No unusual bruising. No change in hair or nails. Neurologic: No aphasia. No facial droop. Noted change in mentation due to dementia and acute illness. No head injury. No headache. No paralysis. No paresthesia. Psychiatric: No depression. No anxiety. No mood swings. Endocrine: Noted abnormal blood sugars. No weight change. No excessive sweating or thirst. No cold intolerance. PHYSICAL EXAMINATION Gen: This is an 87-year-old male. He is resting in bed and appears to be comfortable. No respiratory distress is noted, no coughing noted. HEENT: Head is atraumatic, normocephalic. Pupils equal, round. Sclerae is anicteric. NECK: Supple. No JVD. No lymphadenopathy. No thyromegaly. LUNGS: Decreased breath sounds bilaterally with a few scattered rhonchi. No intercostal retractions. HEART: Irregular rate and rhythm. 2/6 systolic murmur. ABDOMEN: Soft. Bowel sounds are present. No masses. No tenderness. James mcneil vincenzo urine with sediment. EXTREMITIES: No pedal edema. No calf tenderness. Dorsalis pedis palpable bilaterally. NEUROLOGICAL: Patient is awake, oriented to person, opens eyes to verbal stim robbin and able to answer simple questions, generalized weakness. ASSESSMENT AND PLAN 1. Severe dehydration secondary to poor oral intake and diarrhea. Patient is currently on D5W at 75 mL/h, followed by nephrology. 2. Acute hyponatremia secondary to free water deficit. Patient is currently on D5W. 3. Acute C. difficile colitis. Patient has been seen by infectious disease, continued on oral vancomycin. 4. Acute kidney injury with chronic kidney disease stage III. Continue to monitor, avoid nephrotoxic agents. 5. Acute Proteus mirabilis catheter-associated urinary tract infection. Nadja larson is currently on cefepime, infectious disease consult appreciated. 6. Permanent atrial fibrillation. Patient is not on anticoagulation due to retroperitoneal hematoma and subdural hematoma. 7. Anemia of chronic disease, rule out acute GI bleed. Consult with general surgery deferred and may have outpatient EGD and colonoscopy if needed. Continue patient on ferrous sulfate 325 mg twice daily, Aranesp 40 g every Friday. Continue patient on Protonix 40 mg IV daily, transfuse 1 unit packed RBCs. 8. COPD without exacerbation. 6. Chronic hypoxic respiratory failure usually on 2 L nasal cannula. Continue oxygen therapy. 7. Diabetes mellitus type 2. Continue NovoLog scale. 8. Benign prostatic hypertrophy with urinary retention and chronic Macdonald catheter. 9. Chronic kidney disease stage III with history of left-sided nephrectomy. Avoid nephrotoxic agents. 10. History of large retroperitoneal hematoma with acute blood loss, stable, 04/2021. 11. History of subdural hematoma, not requiring surgery. 12. Chronic gout. Hold allopurinol 100 mg daily. 13. Recurrent depression. Continue Zoloft 50 mg at bedtime. 14. Generalized anxiety disorder. 15. GI prophylaxis. Protonix 40 mg IV push daily. 16. DVT prophylaxis. SCDs and JARRET hose CODE STATUS: Full code. Prognosis guarded DISCHARGE PLAN Return to [facility] Impression and plan of care have been directed as dictated by the signing physician. Cindy Tobias nurse practitioner acting as scribe for signing physician. Objective - Vital Signs Vital signs: Vital Signs Temp 98.0 F 05/02/22 04:00 Pulse 82 05/02/22 04:00 Resp 18 05/02/22 04:00 BP 107/70 05/02/22 04:00 Pulse Ox 96 05/02/22 08:09 FiO2 Intake & Output 05/01/22 05/02/22 05/02/22 18:59 06:59 18:59 Intake Total 310 675 Output Total 526 802 Balance -216 -127 Weight 63.503 kg Intake: Intake, IV Titration 675 Amount Dextrose 5% in Water 1, 675 000 ml @ 75 mls/hr IV . [id number] [facility] Rx#:[id number] Blood Product 310 Rc As-1 Unit 310 [id number] Output: Urine 525 800 Stool 1 2 Other: Voiding Method Indwelling Catheter Indwelling Catheter - Labs CBC & Chem 7: 05/02/22 09:54 05/02/22 09:54 Labs: Abnormal Lab Results - Last 24 Hours (Table) 05/01/22 05/01/22 05/01/22 Range/Units 09:49 11:33 14:30 POC Glucose (mg/dL) 151 H (70-110) mg/dL Urine Protein 1+ H (Negative) Urine Glucose (UA) Trace H (Negative) Urine Blood Small H (Negative) Urine Bacteria Rare H (None) /hpf Urine Mucus Rare H (None) /hpf Urine Yeast (Budding) Few H (None) /hpf Crossmatch See Detail 05/01/22 05/01/22 05/02/22 Range/Units 16:22 20:25 06:25 POC Glucose (mg/dL) 121 H 157 H 122 H (70-110) mg/dL Urine Protein (Negative) Urine Glucose (UA) (Negative) Urine Blood (Negative) Urine Bacteria (None) /hpf Urine Mucus (None) /hpf Urine Yeast (Budding) (None) /hpf Crossmatch Microbiology - Last 24 Hours (Table) 04/26/22 21:10 Blood Culture - Preliminary Blood No Growth after 120 hours 09/02/22 21:15 Blood Culture - Preliminary Blood No Growth after 120 hours 04/30/22 09:15 Urine Culture - Final Urine,Catheterized
[2022-05-02] MEDS: CHOLESTYRAMINE (WITH SUGAR) 4 GM PACKET PO SCH (16:47)
[2022-05-02 16:48] LABS: Glucose,Whole Blood 164 mg/dL (70-110)
--- NOTE | 2022-05-02 17:43 | P.PN ---
Subjective Progress Note Date: 04/30/22 Principal diagnosis: UTI and C. diff colitis Patient is a 87 year old male custodial resident, who was sent to the ER for evaluation of mental status changes and some neurological symptoms patient did have a positive UA and a positive C. diff test. On today's evaluation medicine 04/30/2022, The patient remains to be afebrile, the patient is breathing comfortably on 4 L nasal cannula patient remains to be pleasantly confused not a good historian no vomiting has been reported still having diarrhea but no blood or mucus per the nurse aide Objective - Vital Signs Vital signs: Vital Signs Temp 98.1 F 04/30/22 12:00 Pulse 95 04/30/22 12:00 Resp 17 04/30/22 12:00 BP 108/65 04/30/22 12:00 Pulse Ox 95 04/30/22 12:00 FiO2 Intake & Output 04/30/22 04/30/22 05/01/22 06:59 18:59 06:59 Intake Total 0 Output Total 600 300 Balance -600 -300 Intake: Oral 0 Output: Urine 600 300 Other: Voiding Method Indwelling Catheter Indwelling Catheter # Bowel Movements 1 - Exam GENERAL DESCRIPTION: An elderly male lying in bed in no distress RESPIRATORY SYSTEM: Unlabored breathing , decreased breath sounds at bases HEART: S1 S2 regular rate and rhythm , ABDOMEN: Soft , no tenderness EXTREMITIES: No edema feet - Labs CBC & Chem 7: 05/02/22 09:54 05/02/22 09:54 Labs: Abnormal Lab Results - Last 24 Hours (Table) 04/29/22 04/30/22 04/30/22 Range/Units 21:59 06:04 08:01 RBC (4.30-5.90) m/uL Hgb (13.0-17.5) gm/dL Hct (39.0-53.0) % MCHC (31.0-37.0) g/dL RDW (11.5-15.5) % Plt Count (150-450) k/uL Sodium (137-145) mmol/L Chloride (98-107) mmol/L Carbon Dioxide (22-30) mmol/L BUN (9-20) mg/dL Creatinine (0.66-1.25) mg/dL Glucose (74-99) mg/dL POC Glucose (mg/dL) 196 H 141 H 143 H (70-110) mg/dL Calcium (8.4-10.2) mg/dL Magnesium (1.6-2.3) mg/dL AST (17-59) U/L Total Protein (6.3-8.2) g/dL Albumin (3.5-5.0) g/dL 04/30/22 04/30/22 04/30/22 Range/Units 09:07 09:07 11:50 RBC 2.47 L (4.30-5.90) m/uL Hgb 7.2 L (13.0-17.5) gm/dL Hct 24.0 L (39.0-53.0) % MCHC 29.8 L (31.0-37.0) g/dL RDW 17.7 H (11.5-15.5) % Plt Count 86 L (150-450) k/uL Sodium 149 H (137-145) mmol/L Chloride 120 H (98-107) mmol/L Carbon Dioxide 19 L (22-30) mmol/L BUN 61 H (9-20) mg/dL Creatinine 2.60 H (0.66-1.25) mg/dL Glucose 147 H (74-99) mg/dL POC Glucose (mg/dL) 154 H (70-110) mg/dL Calcium 7.5 L (8.4-10.2) mg/dL Magnesium 1.4 L (1.6-2.3) mg/dL AST 15 L (17-59) U/L Total Protein 4.9 L (6.3-8.2) g/dL Albumin 2.1 L (3.5-5.0) g/dL 04/30/22 04/30/22 Range/Units 16:38 20:28 RBC (4.30-5.90) m/uL Hgb (13.0-17.5) gm/dL Hct (39.0-53.0) % MCHC (31.0-37.0) g/dL RDW (11.5-15.5) % Plt Count (150-450) k/uL Sodium (137-145) mmol/L Chloride (98-107) mmol/L Carbon Dioxide (22-30) mmol/L BUN (9-20) mg/dL Creatinine (0.66-1.25) mg/dL Glucose (74-99) mg/dL POC Glucose (mg/dL) 155 H 152 H (70-110) mg/dL Calcium (8.4-10.2) mg/dL Magnesium (1.6-2.3) mg/dL AST (17-59) U/L Total Protein (6.3-8.2) g/dL Albumin (3.5-5.0) g/dL Microbiology - Last 24 Hours (Table) 04/30/22 09:15 Urine Culture - Preliminary Urine,Catheterized 04/26/22 21:10 Blood Culture - Preliminary Blood No Growth after 72 hours 04/26/22 21:15 Blood Culture - Preliminary Blood No Growth after 72 hours Assessment and Plan (1) C. difficile colitis Current Visit: Yes Status: Acute Code(s): A04.72 - ENTEROCOLITIS D/T CLOSTRIDIUM DIFFICILE, NOT SPCF RECUR SNOMED Code(s): 698256890 (2) UTI (urinary tract infection) Current Visit: Yes Status: Acute Code(s): N39.0 - URINARY TRACT INFECTION, SITE NOT SPECIFIED SNOMED Code(s): 37488948 Plan: 1patient presented to hospital with mental status changes likely multifactorial likely component of catheter associated UTI and also having a component of C. difficile colitis complicating overall clinical condition. 2The patient Ramirez catheter has been changed waiting for repeat UA urine culture 3patient to continue with cefepime 4patient to continue with oral vancomycin and questran for C. difficile colitis Time with Patient: Less than 30
--- NOTE | 2022-05-02 17:45 | P.PN ---
Subjective Progress Note Date: 05/01/22 Principal diagnosis: UTI and C. diff colitis Patient is a 87 year old male assisted resident, who was sent to the ER for evaluation of mental status changes and some neurological symptoms patient did have a positive UA and a positive C. diff test. On today's evaluation medicine 05/01/2022, The patient continues to be afebrile, the patient is breathing comfortably on nasal cannula oxygen, and seem to be slightly more awake and alert however not a really good historian no vomiting has been reported or worsening diarrhea by the nursing staff Objective - Vital Signs Vital signs: Vital Signs Temp 97.6 F 05/01/22 12:54 Pulse 99 05/01/22 12:54 Resp 16 05/01/22 12:54 BP 102/62 05/01/22 12:54 Pulse Ox 95 05/01/22 12:54 FiO2 Intake & Output 04/30/22 05/01/22 05/01/22 18:59 06:59 18:59 Intake Total 0 Output Total 300 1150 1 Balance -300 -1150 -1 Intake: Oral 0 Output: Urine 300 1150 Stool 1 Other: Voiding Method Indwelling Catheter Indwelling Catheter Indwelling Catheter - Exam GENERAL DESCRIPTION: An elderly male lying in bed in no distress RESPIRATORY SYSTEM: Unlabored breathing , decreased breath sounds at bases HEART: S1 S2 regular rate and rhythm , ABDOMEN: Soft , no tenderness EXTREMITIES: No edema feet - Labs CBC & Chem 7: 05/02/22 09:54 05/02/22 09:54 Labs: Abnormal Lab Results - Last 24 Hours (Table) 04/30/22 04/30/22 05/01/22 Range/Units 16:38 20:28 06:08 RBC (4.30-5.90) m/uL Hgb (13.0-17.5) gm/dL Hct (39.0-53.0) % MCHC (31.0-37.0) g/dL RDW (11.5-15.5) % Plt Count (150-450) k/uL Sodium (137-145) mmol/L Chloride (98-107) mmol/L BUN (9-20) mg/dL Creatinine (0.66-1.25) mg/dL Glucose (74-99) mg/dL POC Glucose (mg/dL) 155 H 152 H 130 H (70-110) mg/dL Calcium (8.4-10.2) mg/dL Crossmatch 05/01/22 05/01/22 05/01/22 Range/Units 07:45 07:45 09:49 RBC 2.30 L (4.30-5.90) m/uL Hgb 6.8 L* (13.0-17.5) gm/dL Hct 22.6 L (39.0-53.0) % MCHC 29.9 L (31.0-37.0) g/dL RDW 18.1 H (11.5-15.5) % Plt Count 61 L (150-450) k/uL Sodium 151 H (137-145) mmol/L Chloride 119 H (98-107) mmol/L BUN 50 H (9-20) mg/dL Creatinine 2.31 H (0.66-1.25) mg/dL Glucose 122 H (74-99) mg/dL POC Glucose (mg/dL) (70-110) mg/dL Calcium 7.0 L (8.4-10.2) mg/dL Crossmatch See Detail 05/01/22 Range/Units 11:33 RBC (4.30-5.90) m/uL Hgb (13.0-17.5) gm/dL Hct (39.0-53.0) % MCHC (31.0-37.0) g/dL RDW (11.5-15.5) % Plt Count (150-450) k/uL Sodium (137-145) mmol/L Chloride (98-107) mmol/L BUN (9-20) mg/dL Creatinine (0.66-1.25) mg/dL Glucose (74-99) mg/dL POC Glucose (mg/dL) 151 H (70-110) mg/dL Calcium (8.4-10.2) mg/dL Crossmatch Microbiology - Last 24 Hours (Table) 04/30/22 09:15 Urine Culture - Final Urine,Catheterized 04/26/22 21:15 Blood Culture - Preliminary Blood No Growth after 96 hours 04/26/22 21:10 Blood Culture - Preliminary Blood No Growth after 96 hours Assessment and Plan (1) C. difficile colitis Current Visit: Yes Status: Acute Code(s): A04.72 - ENTEROCOLITIS D/T CLOSTRIDIUM DIFFICILE, NOT SPCF RECUR SNOMED Code(s): 281426371 (2) UTI (urinary tract infection) Current Visit: Yes Status: Acute Code(s): N39.0 - URINARY TRACT INFECTION, SITE NOT SPECIFIED SNOMED Code(s): 35264880 Plan: 1patient presented to hospital with mental status changes likely multifactorial likely component of catheter associated UTI and also having a component of C. difficile colitis complicating overall clinical condition. 2The patient Ramirez catheter has been changed However we are still waiting for the repeat UA and cultures to be obtained RN has been told to completed today and continue with the cefepime for now . 3patient to continue with the oral vancomycin question for a laxative colitis Time with Patient: Less than 30
--- NOTE | 2022-05-02 17:46 | P.PN ---
Subjective Progress Note Date: 05/02/22 Principal diagnosis: UTI and C. diff colitis Patient is a 87 year old male detention resident, who was sent to the ER for evaluation of mental status changes and some neurological symptoms patient did have a positive UA and a positive C. diff test. On today's evaluation medicine 05/02/2022, The patient remains to be afebrile,, the patient is breathing comfortably on 4 L nasal cannula slightly more awake alert however did not answer any question no vomiting or worsening diarrhea reported by the nursing staff Objective - Vital Signs Vital signs: Vital Signs Temp 97.6 F 05/02/22 08:00 Pulse 88 05/02/22 08:00 Resp 18 05/02/22 08:00 BP 96/57 05/02/22 08:00 Pulse Ox 96 05/02/22 08:09 FiO2 Intake & Output 05/01/22 05/02/22 05/02/22 18:59 06:59 18:59 Intake Total 310 675 Output Total 526 802 1 Balance -216 -127 -1 Weight 63.503 kg Intake: Intake, IV Titration 675 Amount Dextrose 5% in Water 1, 675 000 ml @ 75 mls/hr IV . [id number] [facility] Rx#:[id number] Blood Product 310 Rc As-1 Unit 310 [id number] Output: Urine 525 800 Stool 1 2 1 Other: Voiding Method Indwelling Catheter Indwelling Catheter Indwelling Catheter - Exam GENERAL DESCRIPTION: An elderly male lying in bed in no distress RESPIRATORY SYSTEM: Unlabored breathing , decreased breath sounds at bases HEART: S1 S2 regular rate and rhythm , ABDOMEN: Soft , no tenderness EXTREMITIES: No edema feet - Labs CBC & Chem 7: 05/02/22 09:54 05/02/22 09:54 Labs: Abnormal Lab Results - Last 24 Hours (Table) 05/01/22 05/01/22 05/01/22 Range/Units 09:49 14:30 16:22 RBC (4.30-5.90) m/uL Hgb (13.0-17.5) gm/dL Hct (39.0-53.0) % MCHC (31.0-37.0) g/dL RDW (11.5-15.5) % Plt Count (150-450) k/uL Sodium (137-145) mmol/L Potassium (3.5-5.1) mmol/L Chloride (98-107) mmol/L BUN (9-20) mg/dL Creatinine (0.66-1.25) mg/dL Glucose (74-99) mg/dL POC Glucose (mg/dL) 121 H (70-110) mg/dL Calcium (8.4-10.2) mg/dL Urine Protein 1+ H (Negative) Urine Glucose (UA) Trace H (Negative) Urine Blood Small H (Negative) Urine Bacteria Rare H (None) /hpf Urine Mucus Rare H (None) /hpf Urine Yeast (Budding) Few H (None) /hpf Crossmatch See Detail 05/01/22 05/02/22 05/02/22 Range/Units 20:25 06:25 09:54 RBC (4.30-5.90) m/uL Hgb (13.0-17.5) gm/dL Hct (39.0-53.0) % MCHC (31.0-37.0) g/dL RDW (11.5-15.5) % Plt Count (150-450) k/uL Sodium 148 H (137-145) mmol/L Potassium 3.1 L (3.5-5.1) mmol/L Chloride 118 H (98-107) mmol/L BUN 42 H (9-20) mg/dL Creatinine 2.09 H (0.66-1.25) mg/dL Glucose 172 H (74-99) mg/dL POC Glucose (mg/dL) 157 H 122 H (70-110) mg/dL Calcium 7.1 L (8.4-10.2) mg/dL Urine Protein (Negative) Urine Glucose (UA) (Negative) Urine Blood (Negative) Urine Bacteria (None) /hpf Urine Mucus (None) /hpf Urine Yeast (Budding) (None) /hpf Crossmatch 05/02/22 05/02/22 Range/Units 09:54 11:36 RBC 3.09 L (4.30-5.90) m/uL Hgb 8.9 L D (13.0-17.5) gm/dL Hct 29.9 L (39.0-53.0) % MCHC 29.9 L (31.0-37.0) g/dL RDW 17.7 H (11.5-15.5) % Plt Count 65 L (150-450) k/uL Sodium (137-145) mmol/L Potassium (3.5-5.1) mmol/L Chloride (98-107) mmol/L BUN (9-20) mg/dL Creatinine (0.66-1.25) mg/dL Glucose (74-99) mg/dL POC Glucose (mg/dL) 165 H (70-110) mg/dL Calcium (8.4-10.2) mg/dL Urine Protein (Negative) Urine Glucose (UA) (Negative) Urine Blood (Negative) Urine Bacteria (None) /hpf Urine Mucus (None) /hpf Urine Yeast (Budding) (None) /hpf Crossmatch Microbiology - Last 24 Hours (Table) 04/26/22 21:10 Blood Culture - Preliminary Blood No Growth after 120 hours 04/26/22 21:15 Blood Culture - Preliminary Blood No Growth after 120 hours Assessment and Plan (1) C. difficile colitis Current Visit: Yes Status: Acute Code(s): A04.72 - ENTEROCOLITIS D/T CLOSTRIDIUM DIFFICILE, NOT SPCF RECUR SNOMED Code(s): 219123518 (2) UTI (urinary tract infection) Current Visit: Yes Status: Acute Code(s): N39.0 - URINARY TRACT INFECTION, SITE NOT SPECIFIED SNOMED Code(s): 96891287 Plan: 1patient presented to hospital with mental status changes likely multifactorial likely component of catheter associated UTI and also having a component of C. difficile colitis complicating overall clinical condition. 2Patient initial urine culture with the Proteus [place] repeat UA not significantly positive and repeat culture has been negative keeping in mind underlying C. difficile colitis we will go ahead and discontinue cefepime. 3patient with a C. difficile colitis, patient to continue with oral vancomycin for another 10 days along with Questran as needed and monitor clinical course closely Time with Patient: Less than 30
[2022-05-02 19:56] LABS: Glucose,Whole Blood 143 mg/dL (70-110)
[2022-05-02] MEDS: SERTRALINE 50 MG TAB PO SCH (21:40)
[2022-05-03] MEDS: DEXTROSE 5% IN WATER 1,000 ML IV SCH ×2 (03:17→19:41)
[2022-05-03 06:14] LABS: Glucose,Whole Blood 146 mg/dL (70-110)
[2022-05-03] MEDS: INSULIN ASPART (NovoLOG) 100 UNIT/ML VIAL SQ SCH ×4 (06:24→21:22)
[2022-05-03 07:55] LABS: Anisocytosis Slight; HCT 27.4 % (39.0-53.0); HGB 8.2 gm/dL (13.0-17.5); Hypochromasia Marked; MCH 28.8 pg (25.0-35.0); MCHC 29.9 g/dL (31.0-37.0); MCV 96.1 fL (80.0-100.0); Macrocytosis Slight; Platelet Count 59 k/uL (150-450); Poikilocytosis Slight; RBC 2.85 m/uL (4.30-5.90); RDW 17.8 % (11.5-15.5); WBC 5.6 k/uL (3.8-10.6)
[2022-05-03 07:59] LABS: Albumin 1.9 g/dL (3.5-5.0); Calcium 6.9 mg/dL (8.4-10.2); Potassium 3.5 mmol/L (3.5-5.1); Total Bilirubin 0.5 mg/dL (0.2-1.3); Total Protein 4.4 g/dL (6.3-8.2)
[2022-05-03] MEDS: PANTOPRAZOLE 40 MG/10 ML VIAL IV SCH (10:05)
[2022-05-03] MEDS: METOPROLOL TARTRATE 25 MG TAB PO SCH ×2 (10:05→21:26)
[2022-05-03] MEDS: VANCOMYCIN ORAL SOLUTION 250 MG/5 ML BOTTLE PO SCH ×4 (10:05→21:26)
[2022-05-03] MEDS: CHOLESTYRAMINE (WITH SUGAR) 4 GM PACKET PO SCH ×2 (10:05→17:39)
--- NOTE | 2022-05-03 10:57 | P.PN ---
Subjective Patient is seen for follow-up for hyponatremia and acute kidney injury. He is s/p D5W. Serum sodium has been improving and renal function has improved as well. Patient remains confused however mentation is improved from initial admission. He does have baseline dementia. Restarted on D5W . Serum sodium was 151 and decrease to 147 today Objective - Vital Signs Vital signs: Vital Signs Temp 98.1 F 05/03/22 08:00 Pulse 97 05/03/22 08:00 Resp 16 05/03/22 08:00 BP 95/64 05/03/22 08:00 Pulse Ox 95 05/03/22 08:00 FiO2 Intake & Output 05/02/22 05/03/22 05/03/22 18:59 06:59 18:59 Output Total 2 802 Balance -2 -802 Output: Urine 800 Stool 2 2 Other: Voiding Method Indwelling Catheter Indwelling Catheter Indwelling Catheter # Bowel Movements 1 - Exam Awake, comfortable, confused not in any acute distress Examination of the heart S1 and S2 Examination of the lungs bilateral breath sounds are heard Abdomen is soft nontender Examination of the lower extremity shows no edema STITCH[employer]ACH[employer] exam shows patient is moving all 4 extremities but he is confused - Labs CBC & Chem 7: 05/03/22 07:15 05/03/22 07:15 Labs: Abnormal Lab Results - Last 24 Hours (Table) 05/02/22 05/02/22 05/02/22 Range/Units 09:54 09:54 11:36 RBC 3.09 L (4.30-5.90) m/uL Hgb 8.9 L D (13.0-17.5) gm/dL Hct 29.9 L (39.0-53.0) % MCHC 29.9 L (31.0-37.0) g/dL RDW 17.7 H (11.5-15.5) % Plt Count 65 L (150-450) k/uL Sodium 148 H (137-145) mmol/L Potassium 3.1 L (3.5-5.1) mmol/L Chloride 118 H (98-107) mmol/L BUN 42 H (9-20) mg/dL Creatinine 2.09 H (0.66-1.25) mg/dL Glucose 172 H (74-99) mg/dL POC Glucose (mg/dL) 165 H (70-110) mg/dL Calcium 7.1 L (8.4-10.2) mg/dL AST (17-59) U/L Total Protein (6.3-8.2) g/dL Albumin (3.5-5.0) g/dL 05/02/22 05/02/22 05/03/22 Range/Units 16:46 19:55 06:12 RBC (4.30-5.90) m/uL Hgb (13.0-17.5) gm/dL Hct (39.0-53.0) % MCHC (31.0-37.0) g/dL RDW (11.5-15.5) % Plt Count (150-450) k/uL Sodium (137-145) mmol/L Potassium (3.5-5.1) mmol/L Chloride (98-107) mmol/L BUN (9-20) mg/dL Creatinine (0.66-1.25) mg/dL Glucose (74-99) mg/dL POC Glucose (mg/dL) 164 H 143 H 146 H (70-110) mg/dL Calcium (8.4-10.2) mg/dL AST (17-59) U/L Total Protein (6.3-8.2) g/dL Albumin (3.5-5.0) g/dL 05/03/22 05/03/22 Range/Units 07:15 07:15 RBC 2.85 L (4.30-5.90) m/uL Hgb 8.2 L (13.0-17.5) gm/dL Hct 27.4 L (39.0-53.0) % MCHC 29.9 L (31.0-37.0) g/dL RDW 17.8 H (11.5-15.5) % Plt Count 59 L (150-450) k/uL Sodium 147 H (137-145) mmol/L Potassium (3.5-5.1) mmol/L Chloride 116 H (98-107) mmol/L BUN 38 H (9-20) mg/dL Creatinine 1.87 H (0.66-1.25) mg/dL Glucose 135 H (74-99) mg/dL POC Glucose (mg/dL) (70-110) mg/dL Calcium 6.9 L (8.4-10.2) mg/dL AST 13 L (17-59) U/L Total Protein 4.4 L (6.3-8.2) g/dL Albumin 1.9 L (3.5-5.0) g/dL Microbiology - Last 24 Hours (Table) 04/26/22 21:15 Blood Culture - Final Blood No Growth after 144 hours 04/26/22 21:10 Blood Culture - Final Blood No Growth after 144 hours Assessment and Plan Assessment: 1. Hypernatremia secondary to free water deficit, improving. 2. Acute kidney injury prerenal currently improving with IV hydration 3. Mental status changes secondary to hypernatremia currently improving 4. Underlying dementia 5. CK D stage IV secondary to nephrosclerosis baseline creatinine about 1.7-1.8 mg/dL with multiple episodes of acute kidney injury in February and August of this year with peak creatinine at 4.9 mg/dL 6. UTI with urine culture growing Proteus mirabilis Plan: Continue D5W and encourage increased oral intake Repeat labs in a.m.
[2022-05-03 11:53] LABS: Glucose,Whole Blood 86 mg/dL (70-110)
--- NOTE | 2022-05-03 12:20 | P.PN ---
Subjective Progress Note Date: 05/03/22 HISTORY OF PRESENT ILLNESS This is an 87-year-old male patient with past medical history of Parkinsons d isease, Alzheimers dementia, diabetes mellitus type 2, chronic atrial fibrillation not on anticoagulation due to retroperitoneal hematoma, benign prostatic hypertrophy, chronic kidney disease with history of left-sided nephrectomy, history of large retroperitoneal hematoma 04/2021, history of aspira tion pneumonia, chronic thrombocytopenia, chronic anemia. He has had multiple hospitalizations over the past year including UTI and streptococcal bacteremia, A. fib with RVR and aspiration pneumonia, subdural hematoma requiring transfer to [facility] with no surgical intervention provided, recent hospitalized for Macdonald catheter associated urinary tract infection, acute kidney injury, DKA, metabolic acidosis, A. fib with RVR, metabolic encephalopathy. Patient was sent in to [facility] emergency center due to decreasing mental status for the past 3 days, possible left facial droop, hypotension. Patient was initially admitted into intensive care unit and treated for severe dehydration, acute C. difficile colitis, severe hypernatremia acute kidney injury and chronic kidney disease,. Patient has been stabilized and transferred to the cardiac stepdown unit. Multiple consultants are following the patient including master baker, infectious disease, general surgery, nephrology. Urine culture was finalized with Proteus mirabilis and patient is currently on cefepime, Macdonald catheter has been changed. So he remains high at 149 and patient is on drip of D5W, BUN 61 creatinine 2.6. Patient is also on oral vancomycin for C. difficile colitis. 05/01: Patient has been afebrile, heart rate 83, blood pressure 101/59, pulse ox 99% on 4 L nasal cannula. Repeat blood work reveals WBC of 4.8, hemoglobin 6.8 and platelet count 61. Sodium 151, potassium 3.5, chloride 119, CO2 24, BUN 50 creatinine 2.3. Capillary blood glucose running between 130 and 155. Calcium 7.0. Urine culture is positive for Proteus mirabilis, blood cultures are showing no growth after 96 hours 2 specimen. Patient will be transfused 1 unit of packed RBCs. Patient's mental status is decreased today, only opening eyes, intermittent lethargy. Patient is not eating, family have been called to come into the hospital. 05/02: Patient remains afebrile, heart rate 82, blood pressure 107/70, pulse ox 96% on 4 L nasal cannula. Due to hypernatremia, patient remains on D5W at 75 mL per hour. He is status post transfusion of 1 unit of packed RBCs. repeat hemoglobin is 8.9. Patient apparently ate 100% of his breakfast and most of his lunch today. He continues to have frequent diarrhea. We will add and Questran twice daily to help firm stools. Patient is stating that he is not hungry. Patient remains on IV antibiotics with cefepime and oral vancomycin. 05/03: Patient remains afebrile, heart rate 97, blood pressure 95/64, pulse ox 95% on 4 L nasal cannula. Repeat blood work reveals WBC 5.6, hemoglobin 8.2, platelet count 59. Sodium 147, potassium 3.5, chloride 116, CO2 25, BUN 38 creatinine 1.87. Questran was added yesterday as patient was still having frequent diarrhea. Per patient's nurse, stools may be less watery but he is still having a stool every couple hours. Patient is more cooperative today Patient is continued on oral vancomycin, cefepime for UTI has been discontinued by Dr. Arias. Nephrology is recommending continuing D5W, encourage oral intake and monitor lab work. Patient will be transferred to [facility] floor. Anticipate that he will be here through the weekend until diarrhea improves significantly in order to return to the [facility]. REVIEW OF SYSTEMS Constitutional: no fever, no chills, no night sweats. No weight change. Noted weakness, noted fatigue no lethargy. Noted daytime sleepiness. EENT: No headache. No blurred vision or double vision, no loss of vision. No loss of Hearing, no ringingin the ears, no dizziness. No nasal drainage or congestion. No epistaxis. No sore throat. Lungs: No shortness of breath at rest, no cough, no sputum production. No wheezing. Cardiovascular: No chest pain, no lower extremity edema. No palpitations. No paroxysmal nocturnal dyspnea. No orthopnea. No lightheadedness or dizziness. No syncopal episodes. Abdominal: No abdominal pain. No nausea, vomiting. Reports diarrhea. No const ipation. No bloody or tarry stools. Noted loss of appetite-chronic and intermittent. Genitourinary: No dysuria, increased frequency, urgency. Chronic urinary retention with chronic macdonald cath. Musculoskeletal: No myalgias. No muscle weakness, reported chronic gait dysfunction, no frequent falls. No back pain. No neck pain. Integumentary: No wounds, no lesions. No rash or pruritus. No unusual bruising. No change in hair or nails. Neurologic: No aphasia. No facial droop. Noted change in mentation due to dementia and acute illness. No head injury. No headache. No paralysis. No paresthesia. Psychiatric: No depression. No anxiety. No mood swings. Endocrine: Noted abnormal blood sugars. No weight change. No excessive sweating or thirst. No cold intolerance. PHYSICAL EXAMINATION Gen: This is an 87-year-old male. He is resting in bed and appears to be comfortable. No respiratory distress is noted, no coughing noted. HEENT: Head is atraumatic, normocephalic. Pupils equal, round. Sclerae is anicteric. NECK: Supple. No JVD. No lymphadenopathy. No thyromegaly. LUNGS: Decreased breath sounds bilaterally with a few scattered rhonchi. No intercostal retractions. HEART: Irregular rate and rhythm. 2/6 systolic murmur. ABDOMEN: Soft. Bowel sounds are present. No masses. No tenderness. Macdonald draining vincenzo urine with sediment. EXTREMITIES: No pedal edema. No calf tenderness. Dorsalis pedis palpable bilaterally. NEUROLOGICAL: Patient is awake, oriented to person, opens eyes to verbal stimuli and able to answer simple questions, generalized weakness. ASSESSMENT AND PLAN 1. Severe dehydration secondary to poor oral intake and diarrhea. Patient is currently on D5W at 75 mL/h, followed by nephrology. 2. Acute hyponatremia secondary to free water deficit. Patient is currently on D5W, continue to monitor electrolytes closely, nephrology consult appreciated. 3. Acute C. difficile colitis. Patient has been seen by infectious disease, continued on oral vancomycin, Questran added twice daily. 4. Acute kidney injury with chronic kidney disease stage III. Continue to monitor, avoid nephrotoxic agents. 5. Acute Proteus mirabilis catheter-associated urinary tract infection. Patient completed course of cefepime, Macdonald catheter has been exchanged during this hospitalization, infectious disease consult appreciated. 6. Permanent atrial fibrillation. Patient is not on anticoagulation due to retroperitoneal hematoma and subdural hematoma. 7. Anemia of chronic disease, rule out acute GI bleed. Consult with general surgery deferred and may have outpatient EGD and colonoscopy if needed. Continue patient on ferrous sulfate 325 mg twice daily, Aranesp 40 g every Friday. Continue patient on Protonix 40 mg IV daily, transfused 1 unit packed RBCs, continue to monitor CBC. 8. COPD without exacerbation. 6. Chronic hypoxic respiratory failure usually on 2 L nasal cannula. Continue oxygen therapy. 7. Diabetes mellitus type 2. Continue NovoLog scale. 8. Benign prostatic hypertrophy with urinary retention and chronic Macdonald catheter. 9. Chronic kidney disease stage III with history of left-sided nephrectomy. Avoid nephrotoxic agents. 10. History of large retroperitoneal hematoma with acute blood loss, stable, 04/2021. 11. History of subdural hematoma, not requiring surgery. 12. Chronic gout. Hold allopurinol 100 mg daily. 13. Recurrent depression. Continue Zoloft 50 mg at bedtime. 14. Generalized anxiety disorder. 15. GI prophylaxis. Protonix 40 mg IV push daily. 16. DVT prophylaxis. SCDs and JARRET hue CODE STATUS: Full code. Prognosis guarded DISCHARGE PLAN Return to [facility] on Friday Impression and plan of care have been directed as dictated by the signing physician. Cindy Tobias nurse practitioner acting as scribe for signing physician. Objective - Vital Signs Vital signs: Vital Signs Temp 98.1 F 05/03/22 08:00 Pulse 97 05/03/22 08:00 Resp 16 05/03/22 08:00 BP 95/64 05/03/22 08:00 Pulse Ox 95 05/03/22 08:00 FiO2 Intake & Output 05/02/22 05/03/22 05/03/22 18:59 06:59 18:59 Output Total 2 802 Balance -2 -802 Output: Urine 800 Stool 2 2 Other: Voiding Method Indwelling Catheter Indwelling Catheter Indwelling Catheter # Bowel Movements 1 - Labs CBC & Chem 7: 05/03/22 07:15 05/03/22 07:15 Labs: Abnormal Lab Results - Last 24 Hours (Table) 05/02/22 05/02/22 05/02/22 Range/Units 09:54 11:36 16:46 RBC 3.09 L (4.30-5.90) m/uL Hgb 8.9 L D (13.0-17.5) gm/dL Hct 29.9 L (39.0-53.0) % MCHC 29.9 L (31.0-37.0) g/dL RDW 17.7 H (11.5-15.5) % Plt Count 65 L (150-450) k/uL Sodium (137-145) mmol/L Chloride (98-107) mmol/L BUN (9-20) mg/dL Creatinine (0.66-1.25) mg/dL Glucose (74-99) mg/dL POC Glucose (mg/dL) 165 H 164 H (70-110) mg/dL Calcium (8.4-10.2) mg/dL AST (17-59) U/L Total Protein (6.3-8.2) g/dL Albumin (3.5-5.0) g/dL 05/02/22 05/03/22 05/03/22 Range/Units 19:55 06:12 07:15 RBC (4.30-5.90) m/uL Hgb (13.0-17.5) gm/dL Hct (39.0-53.0) % MCHC (31.0-37.0) g/dL RDW (11.5-15.5) % Plt Count (150-450) k/uL Sodium 147 H (137-145) mmol/L Chloride 116 H (98-107) mmol/L BUN 38 H (9-20) mg/dL Creatinine 1.87 H (0.66-1.25) mg/dL Glucose 135 H (74-99) mg/dL POC Glucose (mg/dL) 143 H 146 H (70-110) mg/dL Calcium 6.9 L (8.4-10.2) mg/dL AST 13 L (17-59) U/L Total Protein 4.4 L (6.3-8.2) g/dL Albumin 1.9 L (3.5-5.0) g/dL 05/03/22 Range/Units 07:15 RBC 2.85 L (4.30-5.90) m/uL Hgb 8.2 L (13.0-17.5) gm/dL Hct 27.4 L (39.0-53.0) % MCHC 29.9 L (31.0-37.0) g/dL RDW 17.8 H (11.5-15.5) % Plt Count 59 L (150-450) k/uL Sodium (137-145) mmol/L Chloride (98-107) mmol/L BUN (9-20) mg/dL Creatinine (0.66-1.25) mg/dL Glucose (74-99) mg/dL POC Glucose (mg/dL) (70-110) mg/dL Calcium (8.4-10.2) mg/dL AST (17-59) U/L Total Protein (6.3-8.2) g/dL Albumin (3.5-5.0) g/dL Microbiology - Last 24 Hours (Table) 04/26/22 21:15 Blood Culture - Final Blood No Growth after 144 hours 04/26/22 21:10 Blood Culture - Final Blood No Growth after 144 hours
--- NOTE | 2022-05-03 16:34 | P.PN ---
Subjective Progress Note Date: 05/03/22 Principal diagnosis: UTI and C. diff colitis Patient is a 87 year old male [facility] resident, who was sent to the ER for evaluation of mental status changes and some neurological symptoms patient did have a positive UA and a positive C. diff test. On today's evaluation medicine 05/03/2022, The patient continues to be afebrile,, the patient is breathing comfortably on 4 L nasal cannula , the patient is currently sleepy lethargic and did not answer any question or vomiting or any worsening diarrhea reported by the nursing staff Objective - Vital Signs Vital signs: Vital Signs Temp 98.1 F 05/03/22 08:00 Pulse 97 05/03/22 08:00 Resp 16 05/03/22 08:00 BP 95/64 05/03/22 08:00 Pulse Ox 95 05/03/22 08:00 FiO2 Intake & Output 05/02/22 05/03/22 05/03/22 18:59 06:59 18:59 Output Total 2 802 Balance -2 -802 Output: Urine 800 Stool 2 2 Other: Voiding Method Indwelling Catheter Indwelling Catheter Indwelling Catheter # Bowel Movements 1 1 - Exam GENERAL DESCRIPTION: An elderly male lying in bed in no distress RESPIRATORY SYSTEM: Unlabored breathing , decreased breath sounds at bases HEART: S1 S2 regular rate and rhythm , ABDOMEN: Soft , no tenderness EXTREMITIES: No edema feet - Labs CBC & Chem 7: 05/03/22 07:15 05/03/22 07:15 Labs: Abnormal Lab Results - Last 24 Hours (Table) 05/02/22 05/02/22 05/03/22 Range/Units 16:46 19:55 06:12 RBC (4.30-5.90) m/uL Hgb (13.0-17.5) gm/dL Hct (39.0-53.0) % MCHC (31.0-37.0) g/dL RDW (11.5-15.5) % Plt Count (150-450) k/uL Sodium (137-145) mmol/L Chloride (98-107) mmol/L BUN (9-20) mg/dL Creatinine (0.66-1.25) mg/dL Glucose (74-99) mg/dL POC Glucose (mg/dL) 164 H 143 H 146 H (70-110) mg/dL Calcium (8.4-10.2) mg/dL AST (17-59) U/L Total Protein (6.3-8.2) g/dL Albumin (3.5-5.0) g/dL 05/03/22 05/03/22 Range/Units 07:15 07:15 RBC 2.85 L (4.30-5.90) m/uL Hgb 8.2 L (13.0-17.5) gm/dL Hct 27.4 L (39.0-53.0) % MCHC 29.9 L (31.0-37.0) g/dL RDW 17.8 H (11.5-15.5) % Plt Count 59 L (150-450) k/uL Sodium 147 H (137-145) mmol/L Chloride 116 H (98-107) mmol/L BUN 38 H (9-20) mg/dL Creatinine 1.87 H (0.66-1.25) mg/dL Glucose 135 H (74-99) mg/dL POC Glucose (mg/dL) (70-110) mg/dL Calcium 6.9 L (8.4-10.2) mg/dL AST 13 L (17-59) U/L Total Protein 4.4 L (6.3-8.2) g/dL Albumin 1.9 L (3.5-5.0) g/dL Microbiology - Last 24 Hours (Table) 04/26/22 21:15 Blood Culture - Final Blood No Growth after 144 hours 04/26/22 21:10 Blood Culture - Final Blood No Growth after 144 hours Assessment and Plan (1) C. difficile colitis Current Visit: Yes Status: Acute Code(s): A04.72 - ENTEROCOLITIS D/T CLOSTRIDIUM DIFFICILE, NOT SPCF RECUR SNOMED Code(s): 662195356 (2) UTI (urinary tract infection) Current Visit: Yes Status: Acute Code(s): N39.0 - URINARY TRACT INFECTION, SITE NOT SPECIFIED SNOMED Code(s): 55516568 Plan: 1patient presented to hospital with mental status changes likely multifactorial likely component of catheter associated UTI and also having a component of C. difficile colitis complicating overall clinical condition. 2Patient initial urine culture with the Proteus [place]as repeat UA not significantly positive and repeat culture has been negative keeping in mind underlying C. difficile colitis cefepime was discontinued on 05/02/2022. 3patient with a C. difficile colitis, patient to continue with oral vancomycin for another 10 days along with Questran and monitor his clinical course closely Time with Patient: Less than 30
[2022-05-03 16:35] LABS: Glucose,Whole Blood 117 mg/dL (70-110)
[2022-05-03] MEDS ORDERED: DARBEPOETIN ALFA 40 MCG/0.4 ML SYRINGE SQ SCH (21:00)
[2022-05-03 21:22] LABS: Glucose,Whole Blood 122 mg/dL (70-110)
[2022-05-03] MEDS: SERTRALINE 50 MG TAB PO SCH (21:26)
[2022-05-04] MEDS: DEXTROSE 5% IN WATER 1,000 ML IV SCH ×2 (05:26→22:22)
[2022-05-04 05:42] LABS: Glucose,Whole Blood 112 mg/dL (70-110)
[2022-05-04] MEDS: INSULIN ASPART (NovoLOG) 100 UNIT/ML VIAL SQ SCH ×4 (06:42→21:56)
[2022-05-04] MEDS: PANTOPRAZOLE 40 MG/10 ML VIAL IV SCH (09:48)
[2022-05-04] MEDS: METOPROLOL TARTRATE 25 MG TAB PO SCH ×2 (09:48→22:24)
[2022-05-04] MEDS: CHOLESTYRAMINE (WITH SUGAR) 4 GM PACKET PO SCH ×2 (09:49→17:26)
[2022-05-04] MEDS: VANCOMYCIN ORAL SOLUTION 250 MG/5 ML BOTTLE PO SCH ×4 (09:49→22:25)
--- NOTE | 2022-05-04 10:01 | P.PN ---
Subjective Progress Note Date: 05/04/22 Principal diagnosis: Patient is a 87 [facility] old male [facility], seen in consultation because of acute kidney injury hyponatremia. He was sent to the ER for evaluation of mental status changes and some neurological symptoms patient did have a positive UA and a positive C. diff test. Currently awake alert infused follows commands. Objective - Vital Signs Vital signs: Vital Signs Temp 98.3 F 05/04/22 04:55 Pulse 85 05/04/22 04:55 Resp 20 05/04/22 04:55 BP 103/67 05/04/22 04:55 Pulse Ox 99 05/04/22 04:55 FiO2 Intake & Output 05/03/22 05/04/22 05/04/22 18:59 06:59 18:59 Intake Total 120 Output Total 501 Balance -501 120 Weight 63.503 kg Intake: Oral 120 Output: Urine 500 Stool 1 Other: Voiding Method Indwelling Catheter Indwelling Catheter # Bowel Movements 1 1 On examination awake alert but disoriented HEENT exam no JVP neck is supple no facial asymmetry Lungs clear to auscultation good air entry bilaterally Heart sounds unremarkable Abdomen soft nontender nondistended Extreme exam was no edema Neurologically awake alert but disoriented - Labs CBC & Chem 7: 05/03/22 07:15 05/03/22 07:15 Labs: Abnormal Lab Results - Last 24 Hours (Table) 05/03/22 05/03/22 05/04/22 Range/Units 16:34 21:21 05:40 POC Glucose (mg/dL) 117 H 122 H 112 H (70-110) mg/dL Assessment and Plan Assessment: 1. Hypernatremia secondary to free water deficit, improving. 2. Acute kidney injury prerenal currently improving with IV hydration 3. Mental status changes secondary to hypernatremia currently improving 4. Underlying dementia 5. CK D stage IV secondary to nephrosclerosis baseline creatinine about 1.7-1.8 mg/dL with multiple episodes of acute kidney injury in February and August of this year with peak creatinine at 4.9 mg/dL 6. UTI with urine culture growing Proteus mirabilis Recommendation Continue IV D5W at 75 an hour and Encourage oral intake Follow-up labs
[2022-05-04] MEDS ORDERED: NITROGLYCERIN SL TABS 0.4 MG TAB SUBLINGUAL PRN (10:44)
--- NOTE | 2022-05-04 10:44 | P.PN ---
Subjective Progress Note Date: 05/04/22 HISTORY OF PRESENT ILLNESS This is an 87-year-old male patient with past medical history of Parkinsons d isease, Alzheimers dementia, diabetes mellitus type 2, chronic atrial fibrillation not on anticoagulation due to retroperitoneal hematoma, benign prostatic hypertrophy, chronic kidney disease with history of left-sided nephrectomy, history of large retroperitoneal hematoma 04/2021, history of aspira tion pneumonia, chronic thrombocytopenia, chronic anemia. He has had multiple hospitalizations over the past year including UTI and streptococcal bacteremia, A. fib with RVR and aspiration pneumonia, subdural hematoma requiring transfer to [facility] with no surgical intervention provided, recent hospitalized for Macdonald catheter associated urinary tract infection, acute kidney injury, DKA, metabolic acidosis, A. fib with RVR, metabolic encephalopathy. Patient was sent in to [facility] emergency center due to decreasing mental status for the past 3 days, possible left facial droop, hypotension. Patient was initially admitted into intensive care unit and treated for severe dehydration, acute C. difficile colitis, severe hypernatremia acute kidney injury and chronic kidney disease,. Patient has been stabilized and transferred to the cardiac stepdown unit. Multiple consultants are following the patient including telemarketing sales representative, infectious disease, general surgery, nephrology. Urine culture was finalized with Proteus mirabilis and patient is currently on cefepime, Macdonald catheter has been changed. So he remains high at 149 and patient is on drip of D5W, BUN 61 creatinine 2.6. Patient is also on oral vancomycin for C. difficile colitis. 05/01: Patient has been afebrile, heart rate 83, blood pressure 101/59, pulse ox 99% on 4 L nasal cannula. Repeat blood work reveals WBC of 4.8, hemoglobin 6.8 and platelet count 61. Sodium 151, potassium 3.5, chloride 119, CO2 24, BUN 50 creatinine 2.3. Capillary blood glucose running between 130 and 155. Calcium 7.0. Urine culture is positive for Proteus mirabilis, blood cultures are showing no growth after 96 hours 2 specimen. Patient will be transfused 1 unit of packed RBCs. Patient's mental status is decreased today, only opening eyes, intermittent lethargy. Patient is not eating, family have been called to come into the hospital. 05/02: Patient remains afebrile, heart rate 82, blood pressure 107/70, pulse ox 96% on 4 L nasal cannula. Due to hypernatremia, patient remains on D5W at 75 mL per hour. He is status post transfusion of 1 unit of packed RBCs. repeat hemoglobin is 8.9. Patient apparently ate 100% of his breakfast and most of his lunch today. He continues to have frequent diarrhea. We will add and Questran twice daily to help firm stools. Patient is stating that he is not hungry. Patient remains on IV antibiotics with cefepime and oral vancomycin. 05/03: Patient remains afebrile, heart rate 97, blood pressure 95/64, pulse ox 95% on 4 L nasal cannula. Repeat blood work reveals WBC 5.6, hemoglobin 8.2, platelet count 59. Sodium 147, potassium 3.5, chloride 116, CO2 25, BUN 38 creatinine 1.87. Questran was added yesterday as patient was still having frequent diarrhea. Per patient's nurse, stools may be less watery but he is still having a stool every couple hours. Patient is more cooperative today Patient is continued on oral vancomycin, cefepime for UTI has been discontinued by Dr. Arias. Nephrology is recommending continuing D5W, encourage oral intake and monitor lab work. Patient will be transferred to [facility] floor. Anticipate that he will be here through the weekend until diarrhea improves significantly in order to return to the custodial. 05/04: Patient is laying down in bed in no apparent distress, he ate about 100% of his breakfast today, I spoke with the nursing staff about his situation, he continues to have a decubitus blister on his left heel that appears to be a bit boggy we will apply skin prep to it and keep it in heel protectors, also developed to have a stage II decubitus on the right buttock area with unstageable on the left buttock consult wound care, apply OptiForm, speciality bed, increase protein intake. REVIEW OF SYSTEMS Constitutional: no fever, no chills, no night sweats. No weight change. Noted weakness, noted fatigue no lethargy. Noted daytime sleepiness. EENT: No headache. No blurred vision or double vision, no loss of vision. No loss of Hearing, no ringingin the ears, no dizziness. No nasal drainage or congestion. No epistaxis. No sore throat. Lungs: No shortness of breath at rest, no cough, no sputum production. No wheezing. Cardiovascular: No chest pain, no lower extremity edema. No palpitations. No paroxysmal nocturnal dyspnea. No orthopnea. No lightheadedness or dizziness. No syncopal episodes. Abdominal: No abdominal pain. No nausea, vomiting. Reports diarrhea. No constipation. No bloody or tarry stools. Noted loss of appetite-chronic and intermittent. Genitourinary: No dysuria, increased frequency, urgency. Chronic urinary retention with chronic macdonald cath. Musculoskeletal: No myalgias. No muscle weakness, reported chronic gait dysfunction, no frequent falls. No back pain. No neck pain. Integumentary: There is left heel DTI with some bogginess and right buttock stage 2 decub wound and left buttock unstageable ulcer Neurologic: No aphasia. No facial droop. Noted change in mentation due to dementia and acute illness. No head injury. No headache. No paralysis. No p aresthesia. Psychiatric: No depression. No anxiety. No mood swings. Endocrine: Noted abnormal blood sugars. No weight change. No excessive sweating or thirst. No cold intolerance. PHYSICAL EXAMINATION Gen: This is an 87-year-old male. He is resting in bed and appears to be comfortable. No respiratory distress is noted, no coughing noted. HEENT: Head is atraumatic, normocephalic. Pupils equal, round. Sclerae is anicteric, mucous memmbranes of the mouth are moist. NECK: Supple. No JVD. No lymphadenopathy. No thyromegaly. LUNGS: Decreased breath sounds bilaterally with a few scattered rhonchi. No intercostal retractions. HEART: First heart soud is depressed , second heart sound is normal, irregularly irregular, there is BAR 2/6 located in the left sternal border. ABDOMEN: Soft. Bowel sounds are present. No masses. No tenderness. Macdonald draining vincenzo urine with sediment. EXTREMITIES: No pedal edema. No calf tenderness. Dorsalis pedis +1 palpable bilaterally. NEUROLOGICAL: Patient is awake, oriented to person, opens eyes to verbal stimuli and able to answer simple questions, generalized weakness. ASSESSMENT AND PLAN 1. Acute kidney injury on chronic kidney disease stage 3 a. secondary to poor oral intake and diarrhea caused by Clostridium difficile colitis, back to baseline, currently on oral vancomycin, ID and nephrology are following. 2. Acute hyponatremia secondary to free water deficit. Patient is currently on D5W, continue to monitor electrolytes closely, nephrology consult appreciated. 3. Acute C. difficile colitis. Patient has been seen by infectious disease, continued on oral vancomycin, Questran added twice daily. 4. Acute kidney injury with chronic kidney disease stage III. Continue to monitor, avoid nephrotoxic agents. 5. Acute Proteus mirabilis catheter-associated urinary tract infection. Patient completed course of cefepime, Macdonald catheter has been exchanged during this hospitalization, infectious disease consult appreciated. 6. Permanent atrial fibrillation. Patient is not on anticoagulation due to retroperitoneal hematoma and subdural hematoma. 7. Anemia of chronic disease, rule out acute GI bleed. Consult with general surgery deferred and may have outpatient EGD and colonoscopy if needed. Continue patient on ferrous sulfate 325 mg twice daily, Aranesp 40 g every Friday. Continue patient on Protonix 40 mg IV daily, transfused 1 unit packed RBCs, continue to monitor CBC. 8. COPD without exacerbation.we will continue with O2 support and nebulized treatment. 6. Chronic hypoxic respiratory failure usually on 2 L nasal cannula. Continue oxygen therapy. 7. Diabetes mellitus type 2. Continue NovoLog scale. 8. Benign prostatic hypertrophy with urinary retention and chronic Macdonald catheter. 9. History of large retroperitoneal hematoma with acute blood loss, stable, 04/2021. 10. History of subdural hematoma, not requiring surgery. 11. Chronic gout. Hold allopurinol 100 mg daily. 12. Recurrent depression. Continue Zoloft 50 mg at bedtime. 13. Generalized anxiety disorder. 14. GI prophylaxis. Protonix 40 mg IV push daily. 15. DVT prophylaxis. SCDs and JARRET hose. 16. Left heel DTI with right buttock stage 2 and left buttock unstageable decubitus ulcer. Consult wound care, continue skin prep to the left heel, apply OptiForm to the buttock area, speciality bed to be ordered. CODE STATUS: Full code. Prognosis guarded DISCHARGE PLAN Return to [facility] on Friday Objective - Vital Signs Vital signs: Vital Signs Temp 98.3 F 05/04/22 04:55 Pulse 85 05/04/22 04:55 Resp 20 05/04/22 04:55 BP 103/67 05/04/22 04:55 Pulse Ox 99 05/04/22 04:55 FiO2 Intake & Output 05/03/22 05/04/22 05/04/22 18:59 06:59 18:59 Intake Total 120 Output Total 501 Balance -501 120 Weight 63.503 kg Intake: Oral 120 Output: Urine 500 Stool 1 Other: Voiding Method Indwelling Catheter Indwelling Catheter # Bowel Movements 1 1 - Labs CBC & Chem 7: 05/03/22 07:15 05/03/22 07:15 Labs: Abnormal Lab Results - Last 24 Hours (Table) 05/03/22 05/03/22 05/04/22 Range/Units 16:34 21:21 05:40 POC Glucose (mg/dL) 117 H 122 H 112 H (70-110) mg/dL
[2022-05-04 11:31] LABS: Total Bilirubin 0.4 mg/dL (0.2-1.3); Total Protein 4.7 g/dL (6.3-8.2)
[2022-05-04 11:49] LABS: Anisocytosis Slight; Basophils % (A) 0 %; Eosinophils # (A) 0.1 k/uL (0-0.7); Eosinophils % (A) 1 %; HCT 27.9 % (39.0-53.0); HGB 8.4 gm/dL (13.0-17.5); Hypochromasia Marked; Lymphocytes # (A) 1.9 k/uL (1.0-4.8); Lymphocytes % (A) 24 %; MCH 29.4 pg (25.0-35.0); MCV 98.1 fL (80.0-100.0); Macrocytosis Slight; Mean Platelet Volume 14.9; Monocytes # (A) 0.4 k/uL (0-1.0); Monocytes % (A) 5 %; Neutrophils # (A) 5.6 k/uL (1.3-7.7); Neutrophils % (A) 69 %; Poikilocytosis Slight; RBC 2.85 m/uL (4.30-5.90); RDW 18.3 % (11.5-15.5); WBC 8.1 k/uL (3.8-10.6)
[2022-05-04 11:52] LABS: Platelet Count 67 k/uL (150-450)
[2022-05-04 11:59] LABS: Glucose,Whole Blood 118 mg/dL (70-110)
[2022-05-04 16:44] LABS: Glucose,Whole Blood 111 mg/dL (70-110)
[2022-05-04 19:56] LABS: Glucose,Whole Blood 114 mg/dL (70-110)
[2022-05-04] MEDS ORDERED: MIRTAZAPINE 15 MG TAB PO SCH (21:00)
[2022-05-04] MEDS: SERTRALINE 50 MG TAB PO SCH (22:24)
[2022-05-04] MEDS: allopurinoL 100 MG TAB PO SCH (22:25)
[2022-05-04] MEDS: FERROUS SULFATE 325 MG TAB PO SCH (22:25)
[2022-05-05 06:28] LABS: Glucose,Whole Blood 105 mg/dL (70-110)
[2022-05-05] MEDS: INSULIN ASPART (NovoLOG) 100 UNIT/ML VIAL SQ SCH ×4 (07:28→21:17)
[2022-05-05] MEDS: DEXTROSE 5% IN WATER 1,000 ML IV SCH ×2 (07:31→12:40)
[2022-05-05] MEDS ORDERED: NON FORMULARY DRUG (Lactose-Reduced Food [Ensure Plus] 237 ML Ml) PO SCH (09:00)
[2022-05-05 09:24] LABS: Anisocytosis Slight; Basophils # (A) 0.1 k/uL (0-0.2); Basophils % (A) 1 %; Eosinophils # (A) 0.1 k/uL (0-0.7); Eosinophils % (A) 1 %; HCT 27.3 % (39.0-53.0); HGB 8.2 gm/dL (13.0-17.5); Hypochromasia Marked; Lymphocytes # (A) 2.4 k/uL (1.0-4.8); Lymphocytes % (A) 33 %; MCH 29.2 pg (25.0-35.0); MCHC 30.2 g/dL (31.0-37.0); MCV 96.6 fL (80.0-100.0); Macrocytosis Slight; Mean Platelet Volume 14.8; Monocytes # (A) 0.3 k/uL (0-1.0); Monocytes % (A) 4 %; Neutrophils # (A) 4.3 k/uL (1.3-7.7); Neutrophils % (A) 59 %; RBC 2.82 m/uL (4.30-5.90); RDW 18.1 % (11.5-15.5); WBC 7.3 k/uL (3.8-10.6)
--- NOTE | 2022-05-05 09:26 | P.PN ---
Subjective Progress Note Date: 05/05/22 Principal diagnosis: Patient is a 87 year old male longterm resident, seen in consultation because of acute kidney injury hyponatremia. He was sent to the ER for evaluation of mental status changes and some neurological symptoms patient did have a positive UA and a positive C. diff test. Currently awake alert follows commands. Objective - Vital Signs Vital signs: Vital Signs Temp 98.2 F 05/05/22 04:00 Pulse 78 05/05/22 04:00 Resp 18 05/05/22 04:00 BP 107/57 05/05/22 04:00 Pulse Ox 92 L 05/05/22 04:00 FiO2 Intake & Output 05/04/22 05/05/22 05/05/22 18:59 06:59 18:59 Intake Total 120 Output Total 200 827 Balance -80 -827 Intake: Oral 120 Output: Urine 200 825 Stool 2 Other: Voiding Method Indwelling Catheter Indwelling Catheter # Voids 1 # Bowel Movements 1 On examination awake alert but disoriented HEENT exam no JVP neck is supple no facial asymmetry Lungs clear to auscultation good air entry bilaterally Heart sounds unremarkable Abdomen soft nontender nondistended Extreme exam was no edema Neurologically awake alert but disoriented - Labs CBC & Chem 7: 05/04/22 11:03 05/04/22 11:03 Labs: Abnormal Lab Results - Last 24 Hours (Table) 05/04/22 05/04/22 05/04/22 Range/Units 11:03 11:03 11:57 RBC 2.85 L (4.30-5.90) m/uL Hgb 8.4 L (13.0-17.5) gm/dL Hct 27.9 L (39.0-53.0) % MCHC 30.0 L (31.0-37.0) g/dL RDW 18.3 H (11.5-15.5) % Plt Count 67 L (150-450) k/uL Chloride 115 H (98-107) mmol/L BUN 34 H (9-20) mg/dL Creatinine 1.75 H (0.66-1.25) mg/dL Glucose 132 H (74-99) mg/dL POC Glucose (mg/dL) 118 H (70-110) mg/dL Calcium 7.0 L (8.4-10.2) mg/dL AST 16 L (17-59) U/L Total Protein 4.7 L (6.3-8.2) g/dL Albumin 2.0 L (3.5-5.0) g/dL 05/04/22 05/04/22 Range/Units 16:43 19:54 RBC (4.30-5.90) m/uL Hgb (13.0-17.5) gm/dL Hct (39.0-53.0) % MCHC (31.0-37.0) g/dL RDW (11.5-15.5) % Plt Count (150-450) k/uL Chloride (98-107) mmol/L BUN (9-20) mg/dL Creatinine (0.66-1.25) mg/dL Glucose (74-99) mg/dL POC Glucose (mg/dL) 111 H 114 H (70-110) mg/dL Calcium (8.4-10.2) mg/dL AST (17-59) U/L Total Protein (6.3-8.2) g/dL Albumin (3.5-5.0) g/dL Assessment and Plan Assessment: 1. Hypernatremia secondary to free water deficit, improving. Sodium is down to 144 yesterday, Last today pending 2. Acute kidney injury prerenal currently improving with IV hydration, creatinine down to 1.75 yesterday 3. Mental status changes secondary to hypernatremia currently improving 4. Underlying dementia 5. CK D stage IV secondary to nephrosclerosis baseline creatinine about 1.7-1.8 mg/dL with multiple episodes of acute kidney injury in February and August of this year with peak creatinine at 4.9 mg/dL 6. UTI with urine culture growing Proteus mirabilis., Computed course of 75 7. Atrial fibrillation on metoprolol for blood pressure is somewhat low in the 100 range 8. C. diff on oral vancomycin Recommendation Discontinue IV D5W at 75 an hour and KVO and see how he does Encourage oral intake Follow-up labs
[2022-05-05 09:28] LABS: Platelet Count 67 k/uL (150-450)
[2022-05-05] MEDS: PANTOPRAZOLE 40 MG TABLET PO SCH (09:30)
[2022-05-05] MEDS: FERROUS SULFATE 325 MG TAB PO SCH ×2 (09:30→21:17)
[2022-05-05] MEDS: METOPROLOL TARTRATE 25 MG TAB PO SCH ×2 (09:31→21:17)
[2022-05-05] MEDS: VANCOMYCIN ORAL SOLUTION 250 MG/5 ML BOTTLE PO SCH ×4 (09:31→21:28)
[2022-05-05 09:50] LABS: Potassium 3.5 mmol/L (3.5-5.1); Total Bilirubin 0.4 mg/dL (0.2-1.3); Total Protein 4.7 g/dL (6.3-8.2)
[2022-05-05] MEDS: CHOLESTYRAMINE (WITH SUGAR) 4 GM PACKET PO SCH ×2 (09:53→17:36)
--- NOTE | 2022-05-05 10:44 | P.PN ---
Subjective Progress Note Date: 05/05/22 HISTORY OF PRESENT ILLNESS This is an 87-year-old male patient with past medical history of Parkinsons d isease, Alzheimers dementia, diabetes mellitus type 2, chronic atrial fibrillation not on anticoagulation due to retroperitoneal hematoma, benign prostatic hypertrophy, chronic kidney disease with history of left-sided nephrectomy, history of large retroperitoneal hematoma 04/2021, history of aspira tion pneumonia, chronic thrombocytopenia, chronic anemia. He has had multiple hospitalizations over the past year including UTI and streptococcal bacteremia, A. fib with RVR and aspiration pneumonia, subdural hematoma requiring transfer to [facility] with no surgical intervention provided, recent hospitalized for Macdonald catheter associated urinary tract infection, acute kidney injury, DKA, metabolic acidosis, A. fib with RVR, metabolic encephalopathy. Patient was sent in to [facility] emergency center due to decreasing mental status for the past 3 days, possible left facial droop, hypotension. Patient was initially admitted into intensive care unit and treated for severe dehydration, acute C. difficile colitis, severe hypernatremia acute kidney injury and chronic kidney disease,. Patient has been stabilized and transferred to the cardiac stepdown unit. Multiple consultants are following the patient including tube maker, infectious disease, general surgery, nephrology. Urine culture was finalized with Proteus mirabilis and patient is currently on cefepime, Macdonald catheter has been changed. So he remains high at 149 and patient is on drip of D5W, BUN 61 creatinine 2.6. Patient is also on oral vancomycin for C. difficile colitis. 05/01: Patient has been afebrile, heart rate 83, blood pressure 101/59, pulse ox 99% on 4 L nasal cannula. Repeat blood work reveals WBC of 4.8, hemoglobin 6.8 and platelet count 61. Sodium 151, potassium 3.5, chloride 119, CO2 24, BUN 50 creatinine 2.3. Capillary blood glucose running between 130 and 155. Calcium 7.0. Urine culture is positive for Proteus mirabilis, blood cultures are showing no growth after 96 hours 2 specimen. Patient will be transfused 1 unit of packed RBCs. Patient's mental status is decreased today, only opening eyes, intermittent lethargy. Patient is not eating, family have been called to come into the hospital. 05/02: Patient remains afebrile, heart rate 82, blood pressure 107/70, pulse ox 96% on 4 L nasal cannula. Due to hypernatremia, patient remains on D5W at 75 mL per hour. He is status post transfusion of 1 unit of packed RBCs. repeat hemoglobin is 8.9. Patient apparently ate 100% of his breakfast and most of his lunch today. He continues to have frequent diarrhea. We will add and Questran twice daily to help firm stools. Patient is stating that he is not hungry. Patient remains on IV antibiotics with cefepime and oral vancomycin. 05/03: Patient remains afebrile, heart rate 97, blood pressure 95/64, pulse ox 95% on 4 L nasal cannula. Repeat blood work reveals WBC 5.6, hemoglobin 8.2, platelet count 59. Sodium 147, potassium 3.5, chloride 116, CO2 25, BUN 38 creatinine 1.87. Questran was added yesterday as patient was still having frequent diarrhea. Per patient's nurse, stools may be less watery but he is still having a stool every couple hours. Patient is more cooperative today Patient is continued on oral vancomycin, cefepime for UTI has been discontinued by Dr. Arias. Nephrology is recommending continuing D5W, encourage oral intake and monitor lab work. Patient will be transferred to [facility] floor. Anticipate that he will be here through the weekend until diarrhea improves significantly in order to return to the assisted. 05/04: Patient is laying down in bed in no apparent distress, he ate about 100% of his breakfast today, I spoke with the nursing staff about his situation, he continues to have a decubitus blister on his left heel that appears to be a bit boggy we will apply skin prep to it and keep it in heel protectors, also developed to have a stage II decubitus on the right buttock area with unstageable on the left buttock consult wound care, apply OptiForm, speciality bed, increase protein intake. 05/05: Patient is lying down in bed , appears more confused since he was started on Mirtazapine, hence this will be discontinued, there is no chest pain or shortness of breath he was fed breakfast, continues to do poorly overall, unfortunately family wanted full code, and he will be transferred to [facility] in the AM REVIEW OF SYSTEMS Constitutional: no fever, no chills, no night sweats. No weight change. Noted weakness, noted fatigue no lethargy. Noted daytime sleepiness. EENT: No headache. No blurred vision or double vision, no loss of vision. No loss of Hearing, no ringingin the ears, no dizziness. No nasal drainage or congestion. No epistaxis. No sore throat. Lungs: No shortness of breath at rest, no cough, no sputum production. No wheezing. Cardiovascular: No chest pain, no lower extremity edema. No palpitations. No paroxysmal nocturnal dyspnea. No orthopnea. No lightheadedness or dizziness. No syncopal episodes. Abdominal: No abdominal pain. No nausea, vomiting. Reports diarrhea. No constipation. No bloody or tarry stools. Noted loss of appetite-chronic and intermittent. Genitourinary: No dysuria, increased frequency, urgency. Chronic urinary retention with chronic macdonald cath. Musculoskeletal: No myalgias. No muscle weakness, reported chronic gait dysfunction, no frequent falls. No back pain. No neck pain. Integumentary: There is left heel DTI with some bogginess and right buttock stage 2 decub wound and left buttock unstageable ulcer Neurologic: No aphasia. No facial droop. Noted change in mentation due to dementia and acute illness. No head injury. No headache. No paralysis. No paresthesia. Psychiatric: No depression. No anxiety. No mood swings. Endocrine: Noted abnormal blood sugars. No weight change. No excessive sweating or thirst. No cold intolerance. PHYSICAL EXAMINATION Gen: This is an 87-year-old male. He is resting in bed and appears to be comfortable. No respiratory distress is noted, no coughing noted. HEENT: Head is atraumatic, normocephalic. Pupils equal, round. Sclerae is anicteric, mucous memmbranes of the mouth are moist. NECK: Supple. No JVD. No lymphadenopathy. No thyromegaly. LUNGS: Decreased breath sounds bilaterally with a few scattered rhonchi. No intercostal retractions. HEART: First heart soud is depressed , second heart sound is normal, irregularly irregular, there is BAR 2/6 located in the left sternal border. ABDOMEN: Soft. Bowel sounds are present. No masses. No tenderness. Macdonald draining vincenzo urine with sediment. EXTREMITIES: No pedal edema. No calf tenderness. Dorsalis pedis +1 palpable bilaterally. NEUROLOGICAL: Patient is awake, oriented to person, opens eyes to verbal stimuli and able to answer simple questions, generalized weakness. ASSESSMENT AND PLAN 1. Acute kidney injury on chronic kidney disease stage 3 a. secondary to poor oral intake and diarrhea caused by Clostridium difficile colitis, back to baseline, currently on oral vancomycin, ID and nephrology are following. 2. Acute hyponatremia secondary to free water deficit. Patient is currently on D5W, continue to monitor electrolytes closely, nephrology consult appreciated. 3. Acute C. difficile colitis. Patient has been seen by infectious disease, continued on oral vancomycin, Questran added twice daily. 4. Acute kidney injury with chronic kidney disease stage III. Continue to monitor, avoid nephrotoxic agents. 5. Acute Proteus mirabilis catheter-associated urinary tract infection. Patient completed course of cefepime, Macdonald catheter has been exchanged during this hospitalization, infectious disease consult appreciated. 6. Permanent atrial fibrillation. Patient is not on anticoagulation due to retroperitoneal hematoma and subdural hematoma. 7. Anemia of chronic disease, rule out acute GI bleed. Consult with general surgery deferred and may have outpatient EGD and colonoscopy if needed. Continue patient on ferrous sulfate 325 mg twice daily, Aranesp 40 g every Friday. Continue patient on Protonix 40 mg IV daily, transfused 1 unit packed RBCs, continue to monitor CBC. 8. COPD without exacerbation.we will continue with O2 support and nebulized treatment. 6. Chronic hypoxic respiratory failure usually on 2 L nasal cannula. Continue oxygen therapy. 7. Diabetes mellitus type 2. Continue NovoLog scale. 8. Benign prostatic hypertrophy with urinary retention and chronic Macdonald catheter. 9. History of large retroperitoneal hematoma with acute blood loss, stable, 04/2021. 10. History of subdural hematoma, not requiring surgery. 11. Chronic gout. Hold allopurinol 100 mg daily. 12. Recurrent depression. Continue Zoloft 50 mg at bedtime. 13. Generalized anxiety disorder. 14. GI prophylaxis. Protonix 40 mg IV push daily. 15. DVT prophylaxis. SCDs and JARRET hose. 16. Left heel DTI with right buttock stage 2 and left buttock unstageable decubitus ulcer. Consult wound care, continue skin prep to the left heel, apply OptiForm to the buttock area, speciality bed to be ordered. CODE STATUS: Full code. Prognosis guarded DISCHARGE PLAN Return to [facility] on Friday Objective - Vital Signs Vital signs: Vital Signs Temp 98.2 F 05/05/22 04:00 Pulse 78 05/05/22 04:00 Resp 18 05/05/22 04:00 BP 107/57 05/05/22 04:00 Pulse Ox 92 L 05/05/22 04:00 FiO2 Intake & Output 05/04/22 05/05/22 05/05/22 18:59 06:59 18:59 Intake Total 120 120 Output Total 200 827 400 Balance -80 -827 -280 Intake: Oral 120 120 Output: Urine 200 825 400 Stool 2 Other: Voiding Method Indwelling Catheter Indwelling Catheter # Voids 1 # Bowel Movements 1 - Labs CBC & Chem 7: 05/05/22 08:31 05/05/22 08:31 Labs: Abnormal Lab Results - Last 24 Hours (Table) 05/04/22 05/04/22 05/04/22 Range/Units 11:03 11:03 11:57 RBC 2.85 L (4.30-5.90) m/uL Hgb 8.4 L (13.0-17.5) gm/dL Hct 27.9 L (39.0-53.0) % MCHC 30.0 L (31.0-37.0) g/dL RDW 18.3 H (11.5-15.5) % Plt Count 67 L (150-450) k/uL Chloride 115 H (98-107) mmol/L BUN 34 H (9-20) mg/dL Creatinine 1.75 H (0.66-1.25) mg/dL Glucose 132 H (74-99) mg/dL POC Glucose (mg/dL) 118 H (70-110) mg/dL Calcium 7.0 L (8.4-10.2) mg/dL AST 16 L (17-59) U/L Total Protein 4.7 L (6.3-8.2) g/dL Albumin 2.0 L (3.5-5.0) g/dL 05/04/22 05/04/22 05/05/22 Range/Units 16:43 19:54 08:31 RBC 2.82 L (4.30-5.90) m/uL Hgb 8.2 L (13.0-17.5) gm/dL Hct 27.3 L (39.0-53.0) % MCHC 30.2 L (31.0-37.0) g/dL RDW 18.1 H (11.5-15.5) % Plt Count (150-450) k/uL Chloride (98-107) mmol/L BUN (9-20) mg/dL Creatinine (0.66-1.25) mg/dL Glucose (74-99) mg/dL POC Glucose (mg/dL) 111 H 114 H (70-110) mg/dL Calcium (8.4-10.2) mg/dL AST (17-59) U/L Total Protein (6.3-8.2) g/dL Albumin (3.5-5.0) g/dL 05/05/22 Range/Units 08:31 RBC (4.30-5.90) m/uL Hgb (13.0-17.5) gm/dL Hct (39.0-53.0) % MCHC (31.0-37.0) g/dL RDW (11.5-15.5) % Plt Count (150-450) k/uL Chloride 115 H (98-107) mmol/L BUN 31 H (9-20) mg/dL Creatinine 1.70 H (0.66-1.25) mg/dL Glucose 114 H (74-99) mg/dL POC Glucose (mg/dL) (70-110) mg/dL Calcium 7.0 L (8.4-10.2) mg/dL AST 16 L (17-59) U/L Total Protein 4.7 L (6.3-8.2) g/dL Albumin 2.0 L (3.5-5.0) g/dL
[2022-05-05 10:50] LABS: Large Platelets Present
[2022-05-05 12:07] LABS: Glucose,Whole Blood 126 mg/dL (70-110)
[2022-05-05] MEDS: MULTIVITAMINS, THERA LIQUID 237 ML BOTTLE PO SCH (12:40)
[2022-05-05 16:48] LABS: Glucose,Whole Blood 148 mg/dL (70-110)
[2022-05-05 20:36] LABS: Glucose,Whole Blood 147 mg/dL (70-110)
[2022-05-05] MEDS: SERTRALINE 50 MG TAB PO SCH (21:17)
[2022-05-05] MEDS: allopurinoL 100 MG TAB PO SCH (21:17)
--- NOTE | 2022-05-05 23:46 | P.PN ---
Subjective Progress Note Date: 05/04/22 Principal diagnosis: UTI and C. diff colitis Patient is a 87 [facility] old male [facility] resident, who was sent to the ER for evaluation of mental status changes and some neurological symptoms patient did have a positive UA and a positive C. diff test. On today's evaluation medicine 05/04/2022, The patient remains to be afebrile,, the patient is breathing comfortably on 4 L nasal cannula , the patient is pleasantly confused and cannot provide any history no vomiting or any worsening diarrhea was reported by the nursing staff. Objective - Vital Signs Vital signs: Vital Signs Temp 98.2 F 05/04/22 08:00 Pulse 60 05/04/22 12:00 Resp 16 05/04/22 12:00 BP 127/85 05/04/22 12:00 Pulse Ox 94 L 05/04/22 12:00 FiO2 Intake & Output 05/03/22 05/04/22 05/04/22 18:59 06:59 18:59 Intake Total 120 Output Total 501 200 Balance -501 -80 Weight 63.503 kg Intake: Oral 120 Output: Urine 500 200 Stool 1 Other: Voiding Method Indwelling Catheter Indwelling Catheter Indwelling Catheter # Bowel Movements 1 1 1 - Exam GENERAL DESCRIPTION: An elderly male lying in bed in no distress RESPIRATORY SYSTEM: Unlabored breathing , decreased breath sounds at bases HEART: S1 S2 regular rate and rhythm , ABDOMEN: Soft , no tenderness EXTREMITIES: No edema feet - Labs CBC & Chem 7: 05/05/22 08:31 05/05/22 08:31 Labs: Abnormal Lab Results - Last 24 Hours (Table) 05/03/22 05/03/22 05/04/22 Range/Units 16:34 21:21 05:40 RBC (4.30-5.90) m/uL Hgb (13.0-17.5) gm/dL Hct (39.0-53.0) % MCHC (31.0-37.0) g/dL RDW (11.5-15.5) % Plt Count (150-450) k/uL Chloride (98-107) mmol/L BUN (9-20) mg/dL Creatinine (0.66-1.25) mg/dL Glucose (74-99) mg/dL POC Glucose (mg/dL) 117 H 122 H 112 H (70-110) mg/dL Calcium (8.4-10.2) mg/dL AST (17-59) U/L Total Protein (6.3-8.2) g/dL Albumin (3.5-5.0) g/dL 05/04/22 05/04/22 05/04/22 Range/Units 11:03 11:03 11:57 RBC 2.85 L (4.30-5.90) m/uL Hgb 8.4 L (13.0-17.5) gm/dL Hct 27.9 L (39.0-53.0) % MCHC 30.0 L (31.0-37.0) g/dL RDW 18.3 H (11.5-15.5) % Plt Count 67 L (150-450) k/uL Chloride 115 H (98-107) mmol/L BUN 34 H (9-20) mg/dL Creatinine 1.75 H (0.66-1.25) mg/dL Glucose 132 H (74-99) mg/dL POC Glucose (mg/dL) 118 H (70-110) mg/dL Calcium 7.0 L (8.4-10.2) mg/dL AST 16 L (17-59) U/L Total Protein 4.7 L (6.3-8.2) g/dL Albumin 2.0 L (3.5-5.0) g/dL Assessment and Plan (1) C. difficile colitis Current Visit: Yes Status: Acute Code(s): A04.72 - ENTEROCOLITIS D/T CLOSTRIDIUM DIFFICILE, NOT SPCF RECUR SNOMED Code(s): 451700288 (2) UTI (urinary tract infection) Current Visit: Yes Status: Acute Code(s): N39.0 - URINARY TRACT INFECTION, SITE NOT SPECIFIED SNOMED Code(s): 84632030 Plan: 1patient presented to hospital with mental status changes likely multifactorial likely component of catheter associated UTI and also having a component of C. difficile colitis complicating overall clinical condition. 2Patient initial urine culture with the Proteus Mirabellas repeat UA not significantly positive and repeat culture has been negative keeping in mind underlying C. difficile colitis cefepime was discontinued on 05/02/2022 3patient seemed to show some clinical improvement and will continue with oral vancomycin for another 10 days along with Questran and monitor his clinical course closely Time with Patient: Less than 30
--- NOTE | 2022-05-05 23:47 | P.PN ---
Subjective Progress Note Date: 05/05/22 Principal diagnosis: UTI and C. diff colitis Patient is a 87 [facility] old male [facility] resident, who was sent to the ER for evaluation of mental status changes and some neurological symptoms patient did have a positive UA and a positive C. diff test. On today's evaluation medicine 05/05/2022, The patient continues to be afebrile,, the patient is breathing comfortably on nasal cannula , the patient is a slightly sleepy lethargic today and did not answer any question no vomiting or any worsening diarrhea was reported by the nursing staff Objective - Vital Signs Vital signs: Vital Signs Temp 98.2 F 05/05/22 12:00 Pulse 68 05/05/22 12:00 Resp 18 05/05/22 12:00 BP 95/53 05/05/22 12:00 Pulse Ox 98 05/05/22 12:00 FiO2 Intake & Output 05/04/22 05/05/22 05/05/22 18:59 06:59 18:59 Intake Total 120 120 Output Total 200 827 400 Balance -80 -827 -280 Intake: Oral 120 120 Output: Urine 200 825 400 Stool 2 Other: Voiding Method Indwelling Catheter Indwelling Catheter Indwelling Catheter # Voids 1 # Bowel Movements 1 - Exam GENERAL DESCRIPTION: An elderly male lying in bed in no distress RESPIRATORY SYSTEM: Unlabored breathing , decreased breath sounds at bases HEART: S1 S2 regular rate and rhythm , ABDOMEN: Soft , no tenderness EXTREMITIES: No edema feet - Labs CBC & Chem 7: 05/05/22 08:31 05/05/22 08:31 Labs: Abnormal Lab Results - Last 24 Hours (Table) 05/04/22 05/04/22 05/05/22 Range/Units 16:43 19:54 08:31 RBC 2.82 L (4.30-5.90) m/uL Hgb 8.2 L (13.0-17.5) gm/dL Hct 27.3 L (39.0-53.0) % MCHC 30.2 L (31.0-37.0) g/dL RDW 18.1 H (11.5-15.5) % Plt Count 67 L (150-450) k/uL Chloride (98-107) mmol/L BUN (9-20) mg/dL Creatinine (0.66-1.25) mg/dL Glucose (74-99) mg/dL POC Glucose (mg/dL) 111 H 114 H (70-110) mg/dL Calcium (8.4-10.2) mg/dL AST (17-59) U/L Total Protein (6.3-8.2) g/dL Albumin (3.5-5.0) g/dL 05/05/22 05/05/22 Range/Units 08:31 12:03 RBC (4.30-5.90) m/uL Hgb (13.0-17.5) gm/dL Hct (39.0-53.0) % MCHC (31.0-37.0) g/dL RDW (11.5-15.5) % Plt Count (150-450) k/uL Chloride 115 H (98-107) mmol/L BUN 31 H (9-20) mg/dL Creatinine 1.70 H (0.66-1.25) mg/dL Glucose 114 H (74-99) mg/dL POC Glucose (mg/dL) 126 H (70-110) mg/dL Calcium 7.0 L (8.4-10.2) mg/dL AST 16 L (17-59) U/L Total Protein 4.7 L (6.3-8.2) g/dL Albumin 2.0 L (3.5-5.0) g/dL Assessment and Plan (1) C. difficile colitis Current Visit: Yes Status: Acute Code(s): A04.72 - ENTEROCOLITIS D/T CLOS TRIDIUM DIFFICILE, NOT SPCF RECUR SNOMED Code(s): 809815376 (2) UTI (urinary tract infection) Current Visit: Yes Status: Acute Code(s): N39.0 - URINARY TRACT INFECTION, SITE NOT SPECIFIED SNOMED Code(s): 66819156 Plan: 1patient presented to hospital with mental status changes likely multifactorial likely component of catheter associated UTI and also having a component of C. difficile colitis complicating overall clinical condition. 2Patient initial urine culture with the Proteus Mirabellas repeat UA not signi ficantly positive and repeat culture has been negative keeping in mind underlying C. difficile colitis cefepime was discontinued on 05/02/2022 3for C. diff colitis the patient will continue with oral vancomycin for another 8 days along with Questran and monitor his clinical course closely Time with Patient: Less than 30
[2022-05-06] MEDS: DEXTROSE 5% IN WATER 1,000 ML IV SCH ×3 (05:47→12:25)
[2022-05-06 05:53] LABS: Glucose,Whole Blood 104 mg/dL (70-110)
[2022-05-06] MEDS: INSULIN ASPART (NovoLOG) 100 UNIT/ML VIAL SQ SCH ×4 (05:53→21:22)
[2022-05-06] MEDS: PANTOPRAZOLE 40 MG TABLET PO SCH (06:52)
[2022-05-06 07:33] LABS: Calcium 6.9 mg/dL (8.4-10.2); Potassium 3.3 mmol/L (3.5-5.1)
[2022-05-06 07:42] LABS: Anisocytosis Slight; Basophils % (A) 1 %; Eosinophils # (A) 0.1 k/uL (0-0.7); Eosinophils % (A) 1 %; HCT 24.8 % (39.0-53.0); HGB 7.4 gm/dL (13.0-17.5); Hypochromasia Marked; Lymphocytes # (A) 1.9 k/uL (1.0-4.8); Lymphocytes % (A) 34 %; MCH 29.4 pg (25.0-35.0); MCV 97.9 fL (80.0-100.0); Macrocytosis Slight; Mean Platelet Volume 14.7; Monocytes # (A) 0.3 k/uL (0-1.0); Monocytes % (A) 5 %; Neutrophils # (A) 3.3 k/uL (1.3-7.7); Neutrophils % (A) 58 %; Platelet Count 55 k/uL (150-450); RBC 2.53 m/uL (4.30-5.90); RDW 18.1 % (11.5-15.5); WBC 5.7 k/uL (3.8-10.6)
[2022-05-06] MEDS ORDERED: POTASSIUM CHLORIDE ER 20 MEQ TAB.ER PO STA (07:45)
[2022-05-06 08:04] LABS: Large Platelets Present
[2022-05-06] MEDS: FERROUS SULFATE 325 MG TAB PO SCH ×2 (09:31→21:22)
[2022-05-06] MEDS: METOPROLOL TARTRATE 25 MG TAB PO SCH ×2 (09:31→21:22)
[2022-05-06] MEDS: VANCOMYCIN ORAL SOLUTION 250 MG/5 ML BOTTLE PO SCH ×2 (09:32→12:24)
[2022-05-06] MEDS: MULTIVITAMINS, THERA LIQUID 237 ML BOTTLE PO SCH (09:32)
--- NOTE | 2022-05-06 11:52 | P.PN ---
Subjective Patient is seen in follow-up for acute kidney injury on chronic kidney disease. GFR now at baseline. Resting in bed. Not answering verbal questions. Has a Ramirez catheter. Nonoliguric. On oral Vanco for C. diff. Vital signs are stable. General: Awake. No acute distress. HEENT: Head exam is unremarkable. LUNGS: Breath sounds decreased. HEART: Rate and Rhythm are regular. ABDOMEN: Soft, no distention. EXTREMITITES: No edema. Objective - Vital Signs Vital signs: Vital Signs Temp 98.2 F 05/06/22 09:26 Pulse 87 05/06/22 09:26 Resp 16 05/06/22 09:26 BP 95/57 05/06/22 09:26 Pulse Ox 95 05/06/22 09:26 FiO2 Intake & Output 05/05/22 05/06/22 05/06/22 18:59 06:59 18:59 Intake Total 120 118 Output Total 650 402 Balance -530 -402 118 Weight 51.5 kg Intake: Oral 120 118 Output: Urine 650 400 Stool 2 Other: Voiding Method Indwelling Catheter Indwelling Catheter # Bowel Movements 1 1 - Labs CBC & Chem 7: 05/06/22 06:54 05/06/22 06:54 Labs: Abnormal Lab Results - Last 24 Hours (Table) 05/05/22 05/05/22 05/05/22 Range/Units 12:03 16:46 20:34 RBC (4.30-5.90) m/uL Hgb (13.0-17.5) gm/dL Hct (39.0-53.0) % MCHC (31.0-37.0) g/dL RDW (11.5-15.5) % Plt Count (150-450) k/uL Potassium (3.5-5.1) mmol/L Chloride (98-107) mmol/L BUN (9-20) mg/dL Creatinine (0.66-1.25) mg/dL Glucose (74-99) mg/dL POC Glucose (mg/dL) 126 H 148 H 147 H (70-110) mg/dL Calcium (8.4-10.2) mg/dL 05/06/22 05/06/22 Range/Units 06:54 06:54 RBC 2.53 L (4.30-5.90) m/uL Hgb 7.4 L (13.0-17.5) gm/dL Hct 24.8 L (39.0-53.0) % MCHC 30.0 L (31.0-37.0) g/dL RDW 18.1 H (11.5-15.5) % Plt Count 55 L (150-450) k/uL Potassium 3.3 L (3.5-5.1) mmol/L Chloride 115 H (98-107) mmol/L BUN 31 H (9-20) mg/dL Creatinine 1.76 H (0.66-1.25) mg/dL Glucose 101 H (74-99) mg/dL POC Glucose (mg/dL) (70-110) mg/dL Calcium 6.9 L (8.4-10.2) mg/dL Assessment and Plan Plan: Assessment: 1. Acute kidney injury mostly prerenal improved with IV hydration. Creatinine stable at 1.76 today. 2. Chronic kidney disease stage IV with baseline creatinine 1.7-1.8. 3. Hypernatremia from lack of oral water intake. Improved with D5W. 4. Hypokalemia from poor intake. 5. Proteus UTI on antibiotics. 6. C. diff colitis on oral vancomycin. 7. Anemia of chronic kidney disease maintained on Aranesp. Plan: Currently off IV fluids. Encouraged oral intake. Check magnesium level. Check iron studies. Replace potassium. Continue to monitor renal function and urine output.
[2022-05-06 11:55] LABS: Glucose,Whole Blood 193 mg/dL (70-110)
[2022-05-06] MEDS: CHOLESTYRAMINE (WITH SUGAR) 4 GM PACKET PO SCH ×2 (12:25→21:22)
[2022-05-06 13:19] VITALS: BMI 17.7
--- NOTE | 2022-05-06 13:46 | P.PN ---
Subjective Progress Note Date: 05/06/22 HISTORY OF PRESENT ILLNESS This is an 87-year-old male patient with past medical history of Parkinsons d isease, Alzheimers dementia, diabetes mellitus type 2, chronic atrial fibrillation not on anticoagulation due to retroperitoneal hematoma, benign prostatic hypertrophy, chronic kidney disease with history of left-sided nephrectomy, history of large retroperitoneal hematoma 04/2021, history of aspira tion pneumonia, chronic thrombocytopenia, chronic anemia. He has had multiple hospitalizations over the past year including UTI and streptococcal bacteremia, A. fib with RVR and aspiration pneumonia, subdural hematoma requiring transfer to [facility] with no surgical intervention provided, recent hospitalized for Macdonald catheter associated urinary tract infection, acute kidney injury, DKA, metabolic acidosis, A. fib with RVR, metabolic encephalopathy. Patient was sent in to [facility] emergency center due to decreasing mental status for the past 3 days, possible left facial droop, hypotension. Patient was initially admitted into intensive care unit and treated for severe dehydration, acute C. difficile colitis, severe hypernatremia acute kidney injury and chronic kidney disease,. Patient has been stabilized and transferred to the cardiac stepdown unit. Multiple consultants are following the patient including phlebotomy manager, infectious disease, general surgery, nephrology. Urine culture was finalized with Proteus mirabilis and patient is currently on cefepime, Macdonald catheter has been changed. So he remains high at 149 and patient is on drip of D5W, BUN 61 creatinine 2.6. Patient is also on oral vancomycin for C. difficile colitis. 05/01: Patient has been afebrile, heart rate 83, blood pressure 101/59, pulse ox 99% on 4 L nasal cannula. Repeat blood work reveals WBC of 4.8, hemoglobin 6.8 and platelet count 61. Sodium 151, potassium 3.5, chloride 119, CO2 24, BUN 50 creatinine 2.3. Capillary blood glucose running between 130 and 155. Calcium 7.0. Urine culture is positive for Proteus mirabilis, blood cultures are showing no growth after 96 hours 2 specimen. Patient will be transfused 1 unit of packed RBCs. Patient's mental status is decreased today, only opening eyes, intermittent lethargy. Patient is not eating, family have been called to come into the hospital. 05/02: Patient remains afebrile, heart rate 82, blood pressure 107/70, pulse ox 96% on 4 L nasal cannula. Due to hypernatremia, patient remains on D5W at 75 mL per hour. He is status post transfusion of 1 unit of packed RBCs. repeat hemoglobin is 8.9. Patient apparently ate 100% of his breakfast and most of his lunch today. He continues to have frequent diarrhea. We will add and Questran twice daily to help firm stools. Patient is stating that he is not hungry. Patient remains on IV antibiotics with cefepime and oral vancomycin. 05/03: Patient remains afebrile, heart rate 97, blood pressure 95/64, pulse ox 95% on 4 L nasal cannula. Repeat blood work reveals WBC 5.6, hemoglobin 8.2, platelet count 59. Sodium 147, potassium 3.5, chloride 116, CO2 25, BUN 38 creatinine 1.87. Questran was added yesterday as patient was still having frequent diarrhea. Per patient's nurse, stools may be less watery but he is still having a stool every couple hours. Patient is more cooperative today Patient is continued on oral vancomycin, cefepime for UTI has been discontinued by Dr. Arias. Nephrology is recommending continuing D5W, encourage oral intake and monitor lab work. Patient will be transferred to [facility] floor. Anticipate that he will be here through the weekend until diarrhea improves significantly in order to return to the senior care. 05/04: Patient is laying down in bed in no apparent distress, he ate about 100% of his breakfast today, I spoke with the nursing staff about his situation, he continues to have a decubitus blister on his left heel that appears to be a bit boggy we will apply skin prep to it and keep it in heel protectors, also developed to have a stage II decubitus on the right buttock area with unstageable on the left buttock consult wound care, apply OptiForm, speciality bed, increase protein intake. 05/05: Patient is lying down in bed , appears more confused since he was started on Mirtazapine, hence this will be discontinued, there is no chest pain or shortness of breath he was fed breakfast, continues to do poorly overall, unfortunately family wanted full code, and he will be transferred to [facility] in the AM. 05/06: Patient is seen today on the cardiac stepdown unit waiting for a bed on the [facility] floor. Patient continues to have hallucinations but continued through the night. We will discontinue Remeron. Patient is having about 4 liquid stools every day despite use of vancomycin and Questran. His decubitus ulcers on the buttocks have worsened in the left is now unstageable. Wound care consult has been added. Patient remains afebrile, heart rate 87, blood pressure 95/57, pulse ox 95% on 4 L nasal cannula. IV cefepime for urinary tract infection. Patient is also followed by nephrology, currently off IV fluids, and encourage oral intake, check magnesium level iron studies. Repeat blood work ordered for tomorrow. Due to hallucinations, we will plan to monitor patient another 24 hours and plan for discharge to [facility] tomorrow. REVIEW OF SYSTEMS Constitutional: no fever, no chills, no night sweats. No weight change. Noted weakness, noted fatigue no lethargy. Noted daytime sleepiness. EENT: No headache. No blurred vision or double vision, no loss of vision. No loss of Hearing, no ringingin the ears, no dizziness. No nasal drainage or congestion. No epistaxis. No sore throat. Lungs: No shortness of breath at rest, no cough, no sputum production. No wheezing. Cardiovascular: No chest pain, no lower extremity edema. No palpitations. No paroxysmal nocturnal dyspnea. No orthopnea. No lightheadedness or dizziness. No syncopal episodes. Abdominal: No abdominal pain. No nausea, vomiting. Reports diarrhea. No constipation. No bloody or tarry stools. Noted loss of appetite-chronic and intermittent. Genitourinary: No dysuria, increased frequency, urgency. Chronic urinary retention with chronic macdonald cath. Musculoskeletal: No myalgias. No muscle weakness, reported chronic gait dysfunction, no frequent falls. No back pain. No neck pain. Integumentary: There is left heel DTI with some bogginess and right buttock stage 2 decub wound and left buttock unstageable ulcer Neurologic: No aphasia. No facial droop. Noted change in mentation due to dementia and acute illness. No head injury. No headache. No paralysis. No paresthesia. Psychiatric: No depression. No anxiety. No mood swings. Noted hallucinations. Endocrine: Noted abnormal blood sugars. No weight change. No excessive sweating or thirst. No cold intolerance. PHYSICAL EXAMINATION Gen: This is an 87-year-old male. He is resting in bed and appears to be comfortable. No respiratory distress is noted, no coughing noted. HEENT: Head is atraumatic, normocephalic. Pupils equal, round. Sclerae is anicteric, mucous memmbranes of the mouth are moist. NECK: Supple. No JVD. No lymphadenopathy. No thyromegaly. LUNGS: Decreased breath sounds bilaterally with a few scattered rhonchi. No intercostal retractions. HEART: First heart soud is depressed , second heart sound is normal, irre gularly irregular, there is BAR 2/6 located in the left sternal border. ABDOMEN: Soft. Bowel sounds are present. No masses. No tenderness. Macdonald draining vincenzo urine with sediment. EXTREMITIES: No pedal edema. No calf tenderness. Dorsalis pedis +1 palpable bilaterally. NEUROLOGICAL: Patient is minimally opens eyes to verbal stimuli, generalized weakness. ASSESSMENT AND PLAN 1. Acute kidney injury on chronic kidney disease stage 3 a. secondary to poor oral intake and diarrhea caused by Clostridium difficile colitis, back to baseline, currently on oral vancomycin, ID and nephrology are following. 2. Acute hyponatremia secondary to free water deficit. Patient is off IV fluids, continue to monitor electrolytes closely, nephrology consult appreciated. 3. Acute C. difficile colitis. Patient has been seen by infectious disease, continued on oral vancomycin, Questran added twice daily. 4. Acute kidney injury with chronic kidney disease stage III. Continue to monitor, avoid nephrotoxic agents. 5. Acute Proteus mirabilis catheter-associated urinary tract infection. Patient completed course of cefepime, Macdonald catheter has been exchanged during this hospitalization, infectious disease consult appreciated. 6. Permanent atrial fibrillation. Patient is not on anticoagulation due to retroperitoneal hematoma and subdural hematoma. 7. Anemia of chronic disease, rule out acute GI bleed. Consult with general surgery deferred and may have outpatient EGD and colonoscopy if needed. Continue patient on ferrous sulfate 325 mg twice daily, Aranesp 40 g every Friday. Continue patient on Protonix 40 mg IV daily, transfused 1 unit packed RBCs, continue to monitor CBC. 8. COPD without exacerbation.we will continue with O2 support and nebulized treatment. 6. Chronic hypoxic respiratory failure usually on 2 L nasal cannula. Continue oxygen therapy. 7. Diabetes mellitus type 2. Continue NovoLog scale. 8. Benign prostatic hypertrophy with urinary retention and chronic Macdonald catheter. 9. History of large retroperitoneal hematoma with acute blood loss, stable, 04/26 021. 10. History of subdural hematoma, not requiring surgery. 11. Chronic gout. Hold allopurinol 100 mg daily. 12. Recurrent depression. Continue Zoloft 50 mg at bedtime. 13. Generalized anxiety disorder. 14. GI prophylaxis. Protonix 40 mg IV push daily. 15. DVT prophylaxis. SCDs and JARRET hose. 16. Left heel DTI with right buttock stage 2 and left buttock unstageable decubitus ulcer. Consult wound care, continue skin prep to the left heel, apply OptiForm to the buttock area, speciality bed to be ordered. CODE STATUS: Full code. Prognosis guarded DISCHARGE PLAN Return to [facility] on Friday Impression and plan of care have been directed as dictated by the signing physician. Cindy Tobias nurse practitioner acting as scribe for signing physician. Objective - Vital Signs Vital signs: Vital Signs Temp 98.2 F 05/06/22 09:26 Pulse 87 05/06/22 09:26 Resp 16 05/06/22 09:26 BP 95/57 05/06/22 09:26 Pulse Ox 95 05/06/22 09:26 FiO2 Intake & Output 05/05/22 05/06/22 05/06/22 18:59 06:59 18:59 Intake Total 120 118 Output Total 650 402 Balance -530 -402 118 Weight 51.5 kg Intake: Oral 120 118 Output: Urine 650 400 Stool 2 Other: Voiding Method Indwelling Catheter Indwelling Catheter # Bowel Movements 1 1 - Labs CBC & Chem 7: 05/06/22 06:54 05/06/22 06:54 Labs: Abnormal Lab Results - Last 24 Hours (Table) 05/05/22 05/05/22 05/05/22 Range/Units 12:03 16:46 20:34 RBC (4.30-5.90) m/uL Hgb (13.0-17.5) gm/dL Hct (39.0-53.0) % MCHC (31.0-37.0) g/dL RDW (11.5-15.5) % Plt Count (150-450) k/uL Potassium (3.5-5.1) mmol/L Chloride (98-107) mmol/L BUN (9-20) mg/dL Creatinine (0.66-1.25) mg/dL Glucose (74-99) mg/dL POC Glucose (mg/dL) 126 H 148 H 147 H (70-110) mg/dL Calcium (8.4-10.2) mg/dL 05/06/22 05/06/22 05/06/22 Range/Units 06:54 06:54 11:53 RBC 2.53 L (4.30-5.90) m/uL Hgb 7.4 L (13.0-17.5) gm/dL Hct 24.8 L (39.0-53.0) % MCHC 30.0 L (31.0-37.0) g/dL RDW 18.1 H (11.5-15.5) % Plt Count 55 L (150-450) k/uL Potassium 3.3 L (3.5-5.1) mmol/L Chloride 115 H (98-107) mmol/L BUN 31 H (9-20) mg/dL Creatinine 1.76 H (0.66-1.25) mg/dL Glucose 101 H (74-99) mg/dL POC Glucose (mg/dL) 193 H (70-110) mg/dL Calcium 6.9 L (8.4-10.2) mg/dL
[2022-05-06 16:25] LABS: Glucose,Whole Blood 99 mg/dL (70-110)
[2022-05-06 20:00] LABS: Glucose,Whole Blood 122 mg/dL (70-110)
[2022-05-06] MEDS: allopurinoL 100 MG TAB PO SCH (21:22)
[2022-05-06] MEDS: SERTRALINE 50 MG TAB PO SCH (21:22)
[2022-05-07 05:56] LABS: Glucose,Whole Blood 108 mg/dL (70-110)
[2022-05-07] MEDS: INSULIN ASPART (NovoLOG) 100 UNIT/ML VIAL SQ SCH ×4 (06:03→22:38)
[2022-05-07] MEDS: DEXTROSE 5% IN WATER 1,000 ML IV SCH ×2 (06:03→20:01)
[2022-05-07] MEDS: PANTOPRAZOLE 40 MG TABLET PO SCH (06:04)
[2022-05-07 08:57] LABS: Calcium 7.1 mg/dL (8.4-10.2); Potassium 3.8 mmol/L (3.5-5.1)
--- NOTE | 2022-05-07 09:46 | P.CONS ---
History of Present Illness - Reason for Consult Consult date: 05/07/22 wound care - History of Present Illness This is an 87-year-old patient being seen on [address] for nonhealing ulcerations to right and left buttocks and left heel. Patient has a stage II pressure ulcer to the left buttocks which is a cluster of 2 ulceration measuring approximately 1.8 x 1.5 x 0.2 cm and 2 x 2.5 x 0.2 cm, significant amount of slough noted within the wound bed with no granulation. Wound edges are attached to the wound base, no tunneling or undermining noted. The periwound does show excoriation and maceration. The right buttocks is a stage II pressure ulcer measuring approximate 1 x 1.5 x 0.1 cm with significant amount of slough noted within the wound bed, fat layer A is exposed, no granulation noted, wound edges are attached to the wound base no tunneling or undermining noted. The periwound gregg s show maceration and excoriation. Patient has a stage I pressure ulcer to the left heel. Significant ecchymosis noted. Patient is a poor historian. Review Of Systems: Constitutional: No fever, no chills, no night sweats. No weight change. No weakness, fatigue or lethargy. No daytime sleepiness. Integumentary:reports wounds, no lesions. No rash or pruritus. No unusual bruising. No change in hair or nails. Physical exam: General Appearance: Alert, cooperative, no distress, appears stated age. Skin: See HPI all other Skin color, texture, tugor normal, no rashes or lesions. Neurologic: Alert oriented x3 Assessment: 1. Stage II pressure ulcer left buttocks 2. Stage II pressure ulcer right buttocks 3. Stage I pressure ulcer left calcaneus Plan: 1.Left/right buttocks: Apply honey gel to uclerations, triad to periwound and sacrum border foam. Change Friday, and Friday. Turn patient every 2 hours, utilize a air-filled cushion when sitting. 2. Left calcaneus: Apply triad and border foam. Change daily. 3. Patient would benefit from continue to advance wound care. We'll be happy to see him in the wound care center upon discharge Thank you for the consultation any questions please contact the wound care center DNP note has been reviewed and discussed with Dr. Tay and the impression and plan of care has been directed as dictated. Past Medical History Past Medical History: Atrial Fibrillation, Cancer, COPD, Diabetes Mellitus, Eye Disorder, Hearing Disorder / Deafness, Hypertension, Pneumonia, Prostate Disorder, Renal Disease Additional Past Medical History / Comment(s): Pt recently admitted to [facility] on 01/25/20 with a mechanical fall/hematoma R buttock and acute blood loss anemia. Other hx: 2010 Brain cancer with surgery and radiation, L nephrectomy d/t deteriorating kidney, CKD stage III, BPH, chronic thrombocytopenia, chronic anemia, diet controlled diabetes, generalized arthritis, L2 compression fracture, blind R eye, KO[place]I blaterally, seasonal allergies. 05/14/21 admitted with abdominal hematoma History of Any Multi-Drug Resistant Organisms: None Reported Past Surgical History: No Surgical Hx Reported Additional Past Surgical History / Comment(s): L nephrectomy, brain tumor removal, bilateral cataract removals, colonoscopy. Past Anesthesia/Blood Transfusion Reactions: No Reported Reaction Additional Past Anesthesia/Blood Transfusion Reaction / Comm: Pt has received blood in past without reaction. Past Psychological History: Depression Smoking Status: Former smoker Past Alcohol Use History: None Reported Past Drug Use History: None Reported - Past Family History Father Family Medical History: No Reported History Additional Family Medical History / Comment(s): Father was healthy. He at the age of 62yrs in a MVA. Mother Additional Family Medical History / Comment(s): Mother at the age of 86yrs of "heart problems." Brother(s) Additional Family Medical History / Comment(s): Patient has 3 brothers and one is passed from old age. Patient has 4 sisters with no major medical problems. Patient had 2 children one from muscular dystrophy and one is alive with no major medical problems. Medications and Allergies Home Medications Medication Instructions Recorded Confirmed Type Sertraline [Zoloft] 50 mg PO HS@209901/25/20 04/26/22 History allopurinoL [Zyloprim] 100 mg PO HS@209901/25/20 04/26/22 History Acetaminophen [Tylenol] 650 mg PO Q6H PRN 12/11/21 04/26/22 History Ferrous Sulfate 330 mg PO BID@0900,209902/28/22 04/26/22 History Multivitamins, Thera Liquid 5 ml PO DAILY@0900 02/28/22 04/26/22 History [Theragran Liquid (formulary)] Nitroglycerin Sl Tabs [Nitrostat] 0.4 mg SUBLINGUAL Q5M PRN 02/28/22 04/26/22 History Omeprazole 20 mg PO DAILY@0600 02/28/22 04/26/22 History Collagenase [Santyl Ointment] 1 applic TOPICAL Q12H 04/02/22 04/26/22 History Darbepoetin Ten [Aranesp] 40 mcg SQ FR@2100 04/02/22 04/26/22 History Lactose-Reduced Food [Ensure Plus] 1 can PO DAILY@89904/02/22 04/26/22 History Dapagliflozin Propanediol [Farxiga] 5 mg PO DAILY@89904/09/22 04/26/22 History Furosemide [Lasix] 40 mg PO BID@0600,1400 04/09/22 04/26/22 History Metoprolol Tartrate [Lopressor] 25 mg PO BID@0900,2100 04/09/22 04/26/22 History lisinopriL [Zestril] 2.5 mg PO DAILY@0900 PRN 04/26/22 04/26/22 History Allergies Allergy/AdvReac Type Severity Reaction Status Date / Time No Known Allergies Allergy Verified 04/26/22 23:15 Physical Exam Vitals: Vital Signs Temp Pulse Resp BP Pulse Ox 05/07/22 02:56 97.8 F 62 16 111/57 98 05/07/22 02:00 88 18 05/07/22 00:00 97.6 F 80 18 112/62 98 05/06/22 20:00 97.7 F 88 17 115/75 97 05/06/22 16:00 98.0 F 72 18 91/59 100 05/06/22 14:00 72 18 05/06/22 12:00 98.1 F 68 18 113/65 94 L Intake and Output 05/06/22 05/07/22 05/07/22 22:59 06:59 14:59 Other: Voiding Method Indwelling Catheter Indwelling Catheter # Bowel Movements 1 3 Results CBC & Chem 7: 05/06/22 06:54 05/07/22 08:16 Labs: Abnormal Lab Results - Last 24 Hours (Table) 05/06/22 05/06/22 05/07/22 Range/Units 11:53 19:58 08:16 Sodium 146 H (137-145) mmol/L Chloride 119 H (98-107) mmol/L BUN 30 H (9-20) mg/dL Creatinine 1.66 H (0.66-1.25) mg/dL Glucose 109 H (74-99) mg/dL POC Glucose (mg/dL) 193 H 122 H (70-110) mg/dL Calcium 7.1 L (8.4-10.2) mg/dL Assessment and Plan (1) Stage II pressure ulcer of left buttock Current Visit: Yes Status: Acute Code(s): L89.322 - PRESSURE ULCER OF LEFT BUTTOCK, STAGE 2 SNOMED Code(s): 28993054459070820 (2) Stage II pressure ulcer of right buttock Current Visit: Yes Status: Acute Code(s): L89.312 - PRESSURE ULCER OF RIGHT BUTTOCK, STAGE 2 SNOMED Code(s): 99422485854833697 (3) Pressure ulcer of left heel, stage 1 Current Visit: Yes Status: Acute Code(s): L89.621 - PRESSURE ULCER OF LEFT HEEL, STAGE 1 SNOMED Code(s): 01653227292548
[2022-05-07] MEDS: METOPROLOL TARTRATE 25 MG TAB PO SCH ×2 (09:53→20:20)
[2022-05-07] MEDS: FERROUS SULFATE 325 MG TAB PO SCH ×2 (09:53→20:21)
[2022-05-07] MEDS: CHOLESTYRAMINE (WITH SUGAR) 4 GM PACKET PO SCH ×2 (09:53→17:59)
[2022-05-07] MEDS: MULTIVITAMINS, THERA LIQUID 237 ML BOTTLE PO SCH (09:54)
--- NOTE | 2022-05-07 10:38 | P.PN ---
Subjective Patient is seen in follow-up for acute kidney injury on chronic kidney disease. Renal function stable. Resting in bed. States he has been trying to eat. Nonoliguric. Vital signs are stable. General: Awake. No acute distress. HEENT: Head exam is unremarkable. LUNGS: Breath sounds decreased. HEART: Rate and Rhythm are regular. ABDOMEN: Soft, no distention. EXTREMITITES: No edema. Objective - Vital Signs Vital signs: Vital Signs Temp 97.8 F 05/07/22 02:56 Pulse 62 05/07/22 02:56 Resp 16 05/07/22 02:56 BP 111/57 05/07/22 02:56 Pulse Ox 98 05/07/22 02:56 FiO2 Intake & Output 05/06/22 05/07/22 05/07/22 18:59 06:59 18:59 Intake Total 118 Output Total 226 Balance -108 Weight 51.5 kg Intake: Oral 118 Output: Urine 225 Stool 1 Other: Voiding Method Indwelling Catheter Indwelling Catheter # Bowel Movements 1 3 - Labs CBC & Chem 7: 05/06/22 06:54 05/07/22 08:16 Labs: Abnormal Lab Results - Last 24 Hours (Table) 05/06/22 05/06/22 05/07/22 Range/Units 11:53 19:58 08:16 Sodium 146 H (137-145) mmol/L Chloride 119 H (98-107) mmol/L BUN 30 H (9-20) mg/dL Creatinine 1.66 H (0.66-1.25) mg/dL Glucose 109 H (74-99) mg/dL POC Glucose (mg/dL) 193 H 122 H (70-110) mg/dL Calcium 7.1 L (8.4-10.2) mg/dL Assessment and Plan Plan: Assessment: 1. Acute kidney injury mostly prerenal improved with IV hydration. Creatinine stable at 1.66 today. 2. Chronic kidney disease stage IV with baseline creatinine 1.7-1.8. 3. Hypernatremia from lack of oral water intake. 4. Hypokalemia from poor intake. Replaced. Better. 5. Proteus UTI on antibiotics. Patient has a chronic Ramirez catheter. It was exchanged this admission. 6. C. diff colitis on oral vancomycin. 7. Anemia of chronic kidney disease maintained on Aranesp. 8. Hypomagnesemia from poor intake. Plan: Resume D5W at 50 mL an hour. Encourage oral intake, including free water. Replace magnesium. Check iron studies. Continue to monitor renal function and urine output. Consider discontinuing Ramirez catheter at [facility] if able.
[2022-05-07] MEDS: FIDAXOMICIN 200 MG TABLET PO SCH ×2 (10:42→20:20)
[2022-05-07] MEDS: HYDROPHILIC CREAM 180 GM TUBE TOPICAL SCH (10:42)
--- NOTE | 2022-05-07 10:42 | P.PN ---
Subjective Progress Note Date: 05/07/22 HISTORY OF PRESENT ILLNESS This is an 87-year-old male patient with past medical history of Parkinsons d isease, Alzheimers dementia, diabetes mellitus type 2, chronic atrial fibrillation not on anticoagulation due to retroperitoneal hematoma, benign prostatic hypertrophy, chronic kidney disease with history of left-sided nephrectomy, history of large retroperitoneal hematoma 04/2021, history of aspira tion pneumonia, chronic thrombocytopenia, chronic anemia. He has had multiple hospitalizations over the past year including UTI and streptococcal bacteremia, A. fib with RVR and aspiration pneumonia, subdural hematoma requiring transfer to [facility] with no surgical intervention provided, recent hospitalized for Macdonald catheter associated urinary tract infection, acute kidney injury, DKA, metabolic acidosis, A. fib with RVR, metabolic encephalopathy. Patient was sent in to [facility] emergency center due to decreasing mental status for the past 3 days, possible left facial droop, hypotension. Patient was initially admitted into intensive care unit and treated for severe dehydration, acute C. difficile colitis, severe hypernatremia acute kidney injury and chronic kidney disease,. Patient has been stabilized and transferred to the cardiac stepdown unit. Multiple consultants are following the patient including municipal firefighter, infectious disease, general surgery, nephrology. Urine culture was finalized with Proteus mirabilis and patient is currently on cefepime, Macdonald catheter has been changed. So he remains high at 149 and patient is on drip of D5W, BUN 61 creatinine 2.6. Patient is also on oral vancomycin for C. difficile colitis. 05/01: Patient has been afebrile, heart rate 83, blood pressure 101/59, pulse ox 99% on 4 L nasal cannula. Repeat blood work reveals WBC of 4.8, hemoglobin 6.8 and platelet count 61. Sodium 151, potassium 3.5, chloride 119, CO2 24, BUN 50 creatinine 2.3. Capillary blood glucose running between 130 and 155. Calcium 7.0. Urine culture is positive for Proteus mirabilis, blood cultures are showing no growth after 96 hours 2 specimen. Patient will be transfused 1 unit of packed RBCs. Patient's mental status is decreased today, only opening eyes, intermittent lethargy. Patient is not eating, family have been called to come into the hospital. 05/02: Patient remains afebrile, heart rate 82, blood pressure 107/70, pulse ox 96% on 4 L nasal cannula. Due to hypernatremia, patient remains on D5W at 75 mL per hour. He is status post transfusion of 1 unit of packed RBCs. repeat hemoglobin is 8.9. Patient apparently ate 100% of his breakfast and most of his lunch today. He continues to have frequent diarrhea. We will add and Questran twice daily to help firm stools. Patient is stating that he is not hungry. Patient remains on IV antibiotics with cefepime and oral vancomycin. 05/03: Patient remains afebrile, heart rate 97, blood pressure 95/64, pulse ox 95% on 4 L nasal cannula. Repeat blood work reveals WBC 5.6, hemoglobin 8.2, platelet count 59. Sodium 147, potassium 3.5, chloride 116, CO2 25, BUN 38 creatinine 1.87. Questran was added yesterday as patient was still having frequent diarrhea. Per patient's nurse, stools may be less watery but he is still having a stool every couple hours. Patient is more cooperative today Patient is continued on oral vancomycin, cefepime for UTI has been discontinued by Dr. Arias. Nephrology is recommending continuing D5W, encourage oral intake and monitor lab work. Patient will be transferred to [facility] floor. Anticipate that he will be here through the weekend until diarrhea improves significantly in order to [facility] the [facility]. 05/04: Patient is laying down in bed in no apparent distress, he ate about 100% of his breakfast today, I spoke with the nursing staff about his situation, he continues to have a decubitus blister on his left heel that appears to be a bit boggy we will apply skin prep to it and keep it in heel protectors, also developed to have a stage II decubitus on the right buttock area with unstageable on the left buttock consult wound care, apply OptiForm, speciality bed, increase protein intake. 05/05: Patient is lying down in bed , appears more confused since he was started on Mirtazapine, hence this will be discontinued, there is no chest pain or shortness of breath he was fed breakfast, continues to do poorly overall, unfortunately family wanted full code, and he will be transferred to [facility] in the AM. 05/06: Patient is seen today on the cardiac stepdown unit waiting for a bed on the [facility] floor. Patient continues to have hallucinations but continued through the night. We will discontinue Remeron. Patient is having about 4 liquid stools every day despite use of vancomycin and Questran. His decubitus ulcers on the buttocks have worsened in the left is now unstageable. Wound care consult has been added. Patient remains afebrile, heart rate 87, blood pressure 95/57, pulse ox 95% on 4 L nasal cannula. IV cefepime for urinary tract infection. Patient is also followed by nephrology, currently off IV fluids, and encourage oral intake, check magnesium level iron studies. Repeat blood work ordered for tomorrow. Due to hallucinations, we will plan to monitor patient another 24 hours and plan for discharge to [facility] tomorrow. 05/07: Patient remains afebrile, heart rate 62, blood pressure 111/57, pulse ox 98% on 4 L nasal cannula. Repeat blood work reveals sodium 146, potassium 3.8, chloride 119, CO2 22, BUN 13 creatinine 1.66. Blood sugar 109. Capillary blood glucose running between 99 and 122. Calcium 7.1. Magnesium 1.6. Consult was placed yesterday for wound care center with recommendations for honey gel to ulcerations, Triad 2. Wound and sacral. Change Friday, turn patient every 2 hours, air-filled cushion when sitting. Per the left calcaneus, apply Triad and border foam and change daily. Recommendations are to follow up in the wound care center after discharge. Patient continues to have diarrhea and discussed with Dr. Arias, vancomycin changed to Dificid. REVIEW OF SYSTEMS Constitutional: no fever, no chills, no night sweats. No weight change. Noted weakness, noted fatigue no lethargy. Noted daytime sleepiness. EENT: No headache. No blurred vision or double vision, no loss of vision. No loss of Hearing, no ringingin the ears, no dizziness. No nasal drainage or congestion. No epistaxis. No sore throat. Lungs: No shortness of breath at rest, no cough, no sputum production. No wheezing. Cardiovascular: No chest pain, no lower extremity edema. No palpitations. No paroxysmal nocturnal dyspnea. No orthopnea. No lightheadedness or dizziness. No syncopal episodes. Abdominal: No abdominal pain. No nausea, vomiting. Reports diarrhea. No constipation. No bloody or tarry stools. Noted loss of appetite-chronic and i ntermittent. Genitourinary: No dysuria, increased frequency, urgency. Chronic urinary retention with chronic macdonald cath. Musculoskeletal: No myalgias. No muscle weakness, reported chronic gait dysfu nction, no frequent falls. No back pain. No neck pain. Integumentary: There is left heel DTI with some bogginess and right buttock stage 2 decub wound and left buttock unstageable ulcer Neurologic: No aphasia. No facial droop. Noted change in mentation due to dementia and acute illness. No head injury. No headache. No paralysis. No paresthesia. Psychiatric: No depression. No anxiety. No mood swings. Noted hallucinations. Endocrine: Noted abnormal blood sugars. No weight change. No excessive sweating or thirst. No cold intolerance. PHYSICAL EXAMINATION Gen: This is an 87-year-old male. He is resting in bed and appears to be comfortable. No respiratory distress is noted, no coughing noted. HEENT: Head is atraumatic, normocephalic. Pupils equal, round. Sclerae is anicteric, mucous memmbranes of the mouth are moist. NECK: Supple. No JVD. No lymphadenopathy. No thyromegaly. LUNGS: Decreased breath sounds bilaterally with a few scattered rhonchi. No intercostal retractions. HEART: First heart soud is depressed , second heart sound is normal, irregularly irregular, there is BAR 2/6 located in the left sternal border. ABDOMEN: Soft. Bowel sounds are present. No masses. No tenderness. Macdonald draining vincenzo urine with sediment. EXTREMITIES: No pedal edema. No calf tenderness. Dorsalis pedis +1 palpable bilaterally. NEUROLOGICAL: Patient is minimally opens eyes to verbal stimuli, generalized weakness. ASSESSMENT AND PLAN 1. Acute kidney injury on chronic kidney disease stage 3 a. secondary to poor oral intake and diarrhea caused by Clostridium difficile colitis, back to baseline, antibiotics changed to Dificid, ID and nephrology are following. 2. Acute hyponatremia secondary to free water deficit. Patient is off IV fluids, continue to monitor electrolytes closely, nephrology consult appreciated. 3. Acute C. difficile colitis. Patient has been seen by infectious disease, continued on oral vancomycin, Questran added twice daily. 4. Acute kidney injury with chronic kidney disease stage III. Continue to monitor, avoid nephrotoxic agents. 5. Acute Proteus mirabilis catheter-associated urinary tract infection. Patient completed course of cefepime, Macdonald catheter has been exchanged during this hospitalization, infectious disease consult appreciated. 6. Permanent atrial fibrillation. Patient is not on anticoagulation due to retroperitoneal hematoma and subdural hematoma. 7. Anemia of chronic disease, rule out acute GI bleed. Consult with general surgery deferred and may have outpatient EGD and colonoscopy if needed. Continue patient on ferrous sulfate 325 mg twice daily, Aranesp 40 g every Friday. Continue patient on Protonix 40 mg IV daily, transfused 1 unit packed RBCs, continue to monitor CBC. 8. COPD without exacerbation.we will continue with O2 support and nebulized treatment. 6. Chronic hypoxic respiratory failure usually on 2 L nasal cannula. Continue oxygen therapy. 7. Diabetes mellitus type 2. Continue NovoLog scale. 8. Benign prostatic hypertrophy with urinary retention and chronic Macdonald catheter. 9. History of large retroperitoneal hematoma with acute blood loss, stable, 04/2021. 10. History of subdural hematoma, not requiring surgery. 11. Chronic gout. Hold allopurinol 100 mg daily. 12. Recurrent depression. Continue Zoloft 50 mg at bedtime. 13. Generalized anxiety disorder. 14. GI prophylaxis. Protonix 40 mg IV push daily. 15. DVT prophylaxis. SCDs and JARRET hose. 16. Stage II bilateral buttock pressure ulcers, stage I pressor culture to the left calcaneus. Continue local wound care per wound care center. CODE STATUS: Full code. Prognosis guarded DISCHARGE PLAN Return to [facility] on Friday Impression and plan of care have been directed as dictated by the signing physician. Cindy Tobias nurse practitioner acting as scribe for signing physician. Objective - Vital Signs Vital signs: Vital Signs Temp 97.8 F 05/07/22 02:56 Pulse 62 05/07/22 02:56 Resp 16 05/07/22 02:56 BP 111/57 05/07/22 02:56 Pulse Ox 98 05/07/22 02:56 FiO2 Intake & Output 05/06/22 05/07/22 05/07/22 18:59 06:59 18:59 Intake Total 118 Output Total 226 Balance -108 Weight 51.5 kg Intake: Oral 118 Output: Urine 225 Stool 1 Other: Voiding Method Indwelling Catheter Indwelling Catheter # Bowel Movements 1 3 - Labs CBC & Chem 7: 05/06/22 06:54 05/07/22 08:16 Labs: Abnormal Lab Results - Last 24 Hours (Table) 05/06/22 05/06/22 05/06/22 Range/Units 06:54 11:53 19:58 RBC 2.53 L (4.30-5.90) m/uL Hgb 7.4 L (13.0-17.5) gm/dL Hct 24.8 L (39.0-53.0) % MCHC 30.0 L (31.0-37.0) g/dL RDW 18.1 H (11.5-15.5) % Plt Count 55 L (150-450) k/uL POC Glucose (mg/dL) 193 H 122 H (70-110) mg/dL
[2022-05-07] MEDS ORDERED: DEXTROSE 5% IN WATER 1,000 ML IV SCH (10:45)
[2022-05-07 11:41] LABS: Glucose,Whole Blood 167 mg/dL (70-110)
[2022-05-07 15:30] LABS: % Iron Saturation 25.27 (15.00-50.00)
[2022-05-07] MEDS: MAGNESIUM SULFATE-D5W PMX 1 GM in DEXTROSE/WATER 1 100ML.BAG IVPB SCH ×2 (16:43→17:59)
[2022-05-07 17:16] LABS: Glucose,Whole Blood 135 mg/dL (70-110)
[2022-05-07] MEDS: allopurinoL 100 MG TAB PO SCH (20:21)
[2022-05-07] MEDS: SERTRALINE 50 MG TAB PO SCH (20:21)
--- NOTE | 2022-05-07 22:01 | P.PN ---
Subjective Progress Note Date: 05/06/22 Principal diagnosis: UTI and C. diff colitis Patient is a 87 year old male [facility] resident, who was sent to the ER for evaluation of mental status changes and some neurological symptoms patient did have a positive UA and a positive C. diff test. On today's evaluation medicine 05/06/2022, The patient remains to be afebrile,, the patient is breathing comfortably on nasal cannula , the patient is a slightly sleepy lethargic and did not answer any question no vomiting or any worsening diarrhea was reported by the nursing staff Objective - Vital Signs Vital signs: Vital Signs Temp 98.1 F 05/06/22 12:00 Pulse 68 05/06/22 12:00 Resp 18 05/06/22 12:00 BP 113/65 05/06/22 12:00 Pulse Ox 94 L 05/06/22 12:00 FiO2 Intake & Output 05/05/22 05/06/22 05/06/22 18:59 06:59 18:59 Intake Total 120 118 Output Total 650 402 226 Balance -530 -402 -108 Weight 51.5 kg 51.5 kg Intake: Oral 120 118 Output: Urine 650 400 225 Stool 2 1 Other: Voiding Method Indwelling Catheter Indwelling Catheter Indwelling Catheter # Bowel Movements 1 1 - Exam GENERAL DESCRIPTION: An elderly male lying in bed in no distress RESPIRATORY SYSTEM: Unlabored breathing , decreased breath sounds at bases HEART: S1 S2 regular rate and rhythm , ABDOMEN: Soft , no tenderness EXTREMITIES: No edema feet - Labs CBC & Chem 7: 05/06/22 06:54 05/07/22 08:16 Labs: Abnormal Lab Results - Last 24 Hours (Table) 05/05/22 05/05/22 05/06/22 Range/Units 16:46 20:34 06:54 RBC (4.30-5.90) m/uL Hgb (13.0-17.5) gm/dL Hct (39.0-53.0) % MCHC (31.0-37.0) g/dL RDW (11.5-15.5) % Plt Count (150-450) k/uL Potassium 3.3 L (3.5-5.1) mmol/L Chloride 115 H (98-107) mmol/L BUN 31 H (9-20) mg/dL Creatinine 1.76 H (0.66-1.25) mg/dL Glucose 101 H (74-99) mg/dL POC Glucose (mg/dL) 148 H 147 H (70-110) mg/dL Calcium 6.9 L (8.4-10.2) mg/dL 05/06/22 05/06/22 Range/Units 06:54 11:53 RBC 2.53 L (4.30-5.90) m/uL Hgb 7.4 L (13.0-17.5) gm/dL Hct 24.8 L (39.0-53.0) % MCHC 30.0 L (31.0-37.0) g/dL RDW 18.1 H (11.5-15.5) % Plt Count 55 L (150-450) k/uL Potassium (3.5-5.1) mmol/L Chloride (98-107) mmol/L BUN (9-20) mg/dL Creatinine (0.66-1.25) mg/dL Glucose (74-99) mg/dL POC Glucose (mg/dL) 193 H (70-110) mg/dL Calcium (8.4-10.2) mg/dL Assessment and Plan (1) C. difficile colitis Current Visit: Yes Status: Acute Code(s): A04.72 - ENTEROCOLITIS D/T CLOSTRIDIUM DIFFICILE, NOT SPCF RECUR SNOMED Code(s): 721608225 (2) UTI (urinary tract infection) Current Visit: Yes Status: Acute Code(s): N39.0 - URINARY TRACT INFECTION, SITE NOT SPECIFIED SNOMED Code(s): 04134060 Plan: 1patient presented to hospital with mental status changes likely multifactorial likely component of catheter associated UTI and also having a component of C. difficile colitis complicating overall clinical condition. 2Patient initial urine culture with the Proteus Mirabellas repeat UA not significantly positive and repeat culture has been negative keeping in mind underlying C. difficile colitis cefepime was discontinued on 05/02/2022 3for C. diff colitis the patient currently being treated with oral vancomycin along with Questran and monitor his clinical course closely Time with Patient: Less than 30
--- NOTE | 2022-05-07 22:02 | P.PN ---
Subjective Progress Note Date: 05/07/22 Principal diagnosis: UTI and C. diff colitis Patient is a 87 year old male long term resident, who was sent to the ER for evaluation of mental status changes and some neurological symptoms patient did have a positive UA and a positive C. diff test. On today's evaluation medicine 05/07/2022, The patient continues to be afebrile,, the patient is breathing comfortably on nasal cannula , the patient is more awake and alert today however also notable to the question asked apparently the patient did have worsening diarrhea per the SOCIAL SCIENCES PROFESSOR for admitting team Objective - Vital Signs Vital signs: Vital Signs Temp 97.8 F 05/07/22 02:56 Pulse 62 05/07/22 02:56 Resp 16 05/07/22 02:56 BP 111/57 05/07/22 02:56 Pulse Ox 98 05/07/22 02:56 FiO2 Intake & Output 05/06/22 05/07/22 05/07/22 18:59 06:59 18:59 Intake Total 118 Output Total 226 Balance -108 Weight 51.5 kg Intake: Oral 118 Output: Urine 225 Stool 1 Other: Voiding Method Indwelling Catheter Indwelling Catheter # Bowel Movements 1 3 - Exam GENERAL DESCRIPTION: An elderly male lying in bed in no distress RESPIRATORY SYSTEM: Unlabored breathing , decreased breath sounds at bases HEART: S1 S2 regular rate and rhythm , ABDOMEN: Soft , no tenderness EXTREMITIES: No edema feet - Labs CBC & Chem 7: 05/06/22 06:54 05/07/22 08:16 Labs: Abnormal Lab Results - Last 24 Hours (Table) 05/06/22 05/07/22 05/07/22 Range/Units 19:58 08:16 11:40 Sodium 146 H (137-145) mmol/L Chloride 119 H (98-107) mmol/L BUN 30 H (9-20) mg/dL Creatinine 1.66 H (0.66-1.25) mg/dL Glucose 109 H (74-99) mg/dL POC Glucose (mg/dL) 122 H 167 H (70-110) mg/dL Calcium 7.1 L (8.4-10.2) mg/dL Assessment and Plan (1) C. difficile colitis Current Visit: Yes Status: Acute Code(s): A04.72 - ENTEROCOLITIS D/T C LOSTRIDIUM DIFFICILE, NOT SPCF RECUR SNOMED Code(s): 420728281 (2) UTI (urinary tract infection) Current Visit: Yes Status: Acute Code(s): N39.0 - URINARY TRACT INFECTION, S ITE NOT SPECIFIED SNOMED Code(s): 99492162 Plan: 1patient presented to hospital with mental status changes likely multifactorial likely component of catheter associated UTI and also having a component of C. difficile colitis complicating overall clinical condition. 2Patient initial urine culture with the Proteus Mirabellas repeat UA not si gnificantly positive and repeat culture has been negative keeping in mind underlying C. difficile colitis cefepime was discontinued on 05/02/2022 3for C. diff colitis the patient apparently continued to have loose stool antibiotic has been switched over to deficid and we'll see clinical response Time with Patient: Less than 30
[2022-05-07 22:49] LABS: Glucose,Whole Blood 147 mg/dL (70-110)
[2022-05-08] MEDS: INSULIN ASPART (NovoLOG) 100 UNIT/ML VIAL SQ SCH (06:31)
[2022-05-08] MEDS: PANTOPRAZOLE 40 MG TABLET PO SCH (06:31)
[2022-05-08 06:32] LABS: Glucose,Whole Blood 107 mg/dL (70-110)
[2022-05-08 08:48] LABS: Calcium 7.3 mg/dL (8.4-10.2); Potassium 3.5 mmol/L (3.5-5.1)
[2022-05-08] MEDS ORDERED: POTASSIUM CHLORIDE ER 20 MEQ TAB.ER PO STA (09:38)
--- NOTE | 2022-05-08 09:41 | P.PN ---
Subjective Patient is seen in follow-up for acute kidney injury on chronic kidney disease. Renal function better. Nonoliguric. Oral intake fair. Hemodynamically stable. Vital signs are stable. General: Awake. No acute distress. HEENT: On nasal cannula. LUNGS: Breath sounds decreased. HEART: Rate and Rhythm are regular. ABDOMEN: Soft, no distention. EXTREMITITES: No edema. Objective - Vital Signs Vital signs: Vital Signs Temp 98.2 F 05/08/22 00:00 Pulse 77 05/08/22 04:00 Resp 19 05/08/22 04:00 BP 116/60 05/08/22 04:00 Pulse Ox 95 05/08/22 04:00 FiO2 21 05/07/22 20:00 Intake & Output 05/07/22 05/08/22 05/08/22 18:59 06:59 18:59 Intake Total 118 Output Total 702 500 Balance -702 -500 118 Weight 52.6 kg Intake: Oral 118 Output: Urine 700 500 Stool 2 Other: Voiding Method Indwelling Catheter Indwelling Catheter - Labs CBC & Chem 7: 05/06/22 06:54 05/08/22 08:04 Labs: Abnormal Lab Results - Last 24 Hours (Table) 05/07/22 05/07/22 05/07/22 Range/Units 08:16 11:40 17:15 Chloride (98-107) mmol/L Carbon Dioxide (22-30) mmol/L BUN (9-20) mg/dL Creatinine (0.66-1.25) mg/dL Glucose (74-99) mg/dL POC Glucose (mg/dL) 167 H 135 H (70-110) mg/dL Calcium (8.4-10.2) mg/dL Iron 21 L (65-175) ug/dL TIBC 84 L (228-460) ug/dL Transferrin 60.2 L (204.0-354.0) mg/dL Ferritin 1081.0 H (22.0-322.0) ng/mL 05/07/22 05/08/22 Range/Units 22:35 08:04 Chloride 118 H (98-107) mmol/L Carbon Dioxide 21 L (22-30) mmol/L BUN 28 H (9-20) mg/dL Creatinine 1.56 H (0.66-1.25) mg/dL Glucose 118 H (74-99) mg/dL POC Glucose (mg/dL) 147 H (70-110) mg/dL Calcium 7.3 L (8.4-10.2) mg/dL Iron (65-175) ug/dL TIBC (228-460) ug/dL Transferrin (204.0-354.0) mg/dL Ferritin (22.0-322.0) ng/mL Assessment and Plan Plan: Assessment: 1. Acute kidney injury mostly prerenal improved with IV hydration. Creatinine stable at 1.56 today. 2. Chronic kidney disease stage IV with baseline creatinine 1.7-1.8. 3. Hypernatremia from lack of oral water intake. 4. Hypokalemia from poor intake. 5. Proteus UTI on antibiotics. Patient has a chronic Ramirez catheter. It was exchanged this admission. 6. C. diff colitis on oral vancomycin. 7. Anemia of chronic kidney disease maintained on Aranesp. Iron replete. 8. Hypomagnesemia from poor intake. Replaced. Better. Plan: Maintain D5W at 50 mL an hour. Encourage oral intake, including free water. Replace potassium. Continue to monitor renal function and urine output. Consider discontinuing Ramirez catheter at [facility] if able. Discussed with primary team. Monitor BMP and magnesium level every 4-5 days for the next 2 weeks.
[2022-05-08] MEDS: FERROUS SULFATE 325 MG TAB PO SCH (09:43)
[2022-05-08] MEDS: METOPROLOL TARTRATE 25 MG TAB PO SCH (09:43)
[2022-05-08] MEDS: FIDAXOMICIN 200 MG TABLET PO SCH (09:43)
[2022-05-08] MEDS: CHOLESTYRAMINE (WITH SUGAR) 4 GM PACKET PO SCH (09:44)
[2022-05-08] MEDS: MULTIVITAMINS, THERA LIQUID 237 ML BOTTLE PO SCH (10:06)
[2022-05-08] MEDS: HYDROPHILIC CREAM 180 GM TUBE TOPICAL SCH (10:06)
--- NOTE | 2022-05-08 10:48 | P.DS ---
Providers Date of admission: 04/27/22 00:07 Expected date of discharge: 05/08/22 Attending physician: Wilfred Cazares Consults: 04/27/22 00:07 Consult Physician Routine Consulting Provider: Clarisa Lemos Consult Reason/Comments: gi bleed Do you want consulting provider notified?: Already Contacted 04/27/22 12:57 Consult Physician Routine Consulting Provider: Annalisa Arias Consult Reason/Comments: Sepsis/UTI, cdiff Do you want consulting provider notified?: Yes 04/27/22 13:02 Consult Physician Routine Consulting Provider: Cyndi Allison Consult Reason/Comments: CARRIE Do you want consulting provider notified?: Yes 04/27/22 19:29 Consult Physician Routine Consulting Provider: Treasure Baig Consult Reason/Comments: already aware of consult Do you want consulting provider notified?: Already Contacted Primary care physician: Wilfred Cazares [facility] Course: HISTORY OF PRESENT ILLNESS This is an 87-year-old male patient with past medical history of Parkinsons disease, Alzheimers dementia, diabetes mellitus type 2, chronic atrial fibrillation not on anticoagulation due to retroperitoneal hematoma, benign prostatic hypertrophy, chronic kidney disease with history of left-sided nephrectomy, history of large retroperitoneal hematoma 04/2021, history of aspiration pneumonia, chronic thrombocytopenia, chronic anemia. He has had multiple hospitalizations over the past year including UTI and streptococcal bacteremia, A. fib with RVR and aspiration pneumonia, subdural hematoma requiring transfer to [facility] with no surgical intervention provided, recent hospitalized for Ramirez catheter associated urinary tract infection, acute kidney injury, DKA, metabolic acidosis, A. fib with RVR, metabolic encephalopathy. Patient was sent in to [facility] emergency center due to decreasing mental status for the past 3 days, possible left facial droop, hypotension. Patient was initially admitted into intensive care unit and treated for severe dehydration, acute C. difficile colitis, severe hypernatremia acute kidney injury and chronic kidney disease,. Patient has been stabilized and transferred to the cardiac stepdown unit. Multiple consultants are following the patient including mortar mixer operator, infectious disease, general surgery, nephrology. Urine culture was finalized with Proteus mirabilis and patient is currently on cefepime, Ramirez catheter has been changed. So he remains high at 149 and patient is on drip of D5W, BUN 61 creatinine 2.6. Patient is also on oral vancomycin for C. difficile colitis. 05/01: Patient has been afebrile, heart rate 83, blood pressure 101/59, pulse ox 99% on 4 L nasal cannula. Repeat blood work reveals WBC of 4.8, hemoglobin 6.8 and platelet count 61. Sodium 151, potassium 3.5, chloride 119, CO2 24, BUN 50 creatinine 2.3. Capillary blood glucose running between 130 and 155. Calcium 7.0. Urine culture is positive for Proteus mirabilis, blood cultures are showing no growth after 96 hours 2 specimen. Patient will be transfused 1 unit of packed RBCs. Patient's mental status is decreased today, only opening eyes, intermittent lethargy. Patient is not eating, family have been called to come into the hospital. 05/02: Patient remains afebrile, heart rate 82, blood pressure 107/70, pulse ox 96% on 4 L nasal cannula. Due to hypernatremia, patient remains on D5W at 75 mL per hour. He is status post transfusion of 1 unit of packed RBCs. repeat hemoglobin is 8.9. Patient apparently ate 100% of his breakfast and most of his lunch today. He continues to have frequent diarrhea. We will add and Questran twice daily to help firm stools. Patient is stating that he is not hungry. Patient remains on IV antibiotics with cefepime and oral vancomycin. 05/03: Patient remains afebrile, heart rate 97, blood pressure 95/64, pulse ox 95% on 4 L nasal cannula. Repeat blood work reveals WBC 5.6, hemoglobin 8.2, platelet count 59. Sodium 147, potassium 3.5, chloride 116, CO2 25, BUN 38 creatinine 1.87. Questran was added yesterday as patient was still having frequent diarrhea. Per patient's nurse, stools may be less watery but he is still having a stool every couple hours. Patient is more cooperative today Patient is continued on oral vancomycin, cefepime for UTI has been discontinued by Dr. Arias. Nephrology is recommending continuing D5W, encourage oral intake and monitor lab work. Patient will be transferred to [facility] floor. Anticipate that he will be here through the weekend until diarrhea improves significantly in order to return to the custodial. 05/04: Patient is laying down in bed in no apparent distress, he ate about 100% of his breakfast today, I spoke with the nursing staff about his situation, he continues to have a decubitus blister on his left heel that appears to be a bit boggy we will apply skin prep to it and keep it in heel protectors, also developed to have a stage II decubitus on the right buttock area with unstageable on the left buttock consult wound care, apply OptiForm, speciality bed, increase protein intake. 05/05: Patient is lying down in bed , appears more confused since he was started on Mirtazapine, hence this will be discontinued, there is no chest pain or shortness of breath he was fed breakfast, continues to do poorly overall, unfortunately family wanted full code, and he will be transferred to [facility] in the AM 05/06: Patient is seen today on the cardiac stepdown unit waiting for a bed on the [facility] floor. Patient continues to have hallucinations but continued through the night. We will discontinue Remeron. Patient is having about 4 liquid stools every day despite use of vancomycin and Questran. His decubitus ulcers on the buttocks have worsened in the left is now unstageable. Wound care consult has been added. Patient remains afebrile, heart rate 87, blood pressure 95/57, pulse ox 95% on 4 L nasal cannula. IV cefepime for urinary tract infection. Patient is also followed by nephrology, currently off IV fluids, and encourage oral intake, check magnesium level iron studies. Repeat blood work ordered for tomorrow. Due to hallucinations, we will plan to monitor patient another 24 hours and plan for discharge to [facility] tomorrow. 05/07: Patient remains afebrile, heart rate 62, blood pressure 111/57, pulse ox 98% on 4 L nasal cannula. Repeat blood work reveals sodium 146, potassium 3.8, chloride 119, CO2 22, BUN 13 creatinine 1.66. Blood sugar 109. Capillary blood glucose running between 99 and 122. Calcium 7.1. Magnesium 1.6. Consult was placed yesterday for wound care center with recommendations for honey gel to ulcerations, Triad 2. Wound and sacral. Change Friday, turn patient every 2 hours, air-filled cushion when sitting. Per the left calcaneus, apply Triad and border foam and change daily. Recommendations are to follow up in the wound care center after discharge. Patient continues to have diarrhea and discussed with Dr. Arias, vancomycin changed to Dificid. 05/08: Yesterday, patient was started on Dificid. He had 2 soft stools yesterday and the day shift and 4 loose stools during the night. Yesterday, nephrology placed him back on D5W. Patient is being fed breakfast this morning and is eating well. Repeat blood work reveals sodium 144, potassium 3.5, chloride 118, CO2 21, BUN 20 creatinine 1.56. Blood sugar 118. Calcium 7.3. Magnesium 2.1. Patient is been cleared by nephrology for discharge. Patient is cleared for discharge by ID. Patient is awake and alert today. Patient will be discharged back to [facility] today in stable condition. DISCHARGE DIAGNOSES 1. Acute kidney injury on chronic kidney disease stage 3 a. 2. Acute hyponatremia secondary to free water deficit. 3. Acute C. difficile colitis. 4. Acute kidney injury with chronic kidney disease stage III. 5. Acute Proteus mirabilis catheter-associated urinary tract infection. Completed course of antibiotics 6. Permanent atrial fibrillation. Patient is not on anticoagulation due to retroperitoneal hematoma and subdural hematoma. 7. Anemia of chronic disease, rule out acute GI bleed. 8. COPD without exacerbation. 6. Chronic hypoxic respiratory failure usually on 2 L nasal cannula. 7. Diabetes mellitus type 2. 8. Benign prostatic hypertrophy with urinary retention and chronic Ramirez catheter. 9. History of large retroperitoneal hematoma with acute blood loss, stable, 04/2021. 10. History of subdural hematoma, not requiring surgery. 11. Chronic gout. 12. Recurrent depression. 13. Generalized anxiety disorder. 14. Stage II bilateral buttock pressure ulcers, stage I pressor culture to the left calcaneus. DISCHARGE PLAN Return to [facility] Greater than 35 minutes was utilized and coordinating patient's discharge. Impression and plan of care have been directed as dictated by the signing physician. Cindy Tobias nurse practitioner acting as scribe for signing physician. Patient Condition at Discharge: Stable Plan - Discharge Summary Discharge Rx Participant: No New Discharge Prescriptions: New Fidaxomicin [Dificid] 200 mg PO BID #18 tab Cholestyramine (with Sugar) [Questran Packet] 4 gm PO BID@1000,1800 packet Continue allopurinoL [Zyloprim] 100 mg PO HS@2100 Sertraline [Zoloft] 50 mg PO HS@2100 Omeprazole 20 mg PO DAILY@06 Multivitamins, Thera Liquid [Theragran Liquid (formulary)] 5 ml PO DAILY@09 Ferrous Sulfate 330 mg PO BID@899,2099 Collagenase [Santyl Ointment] 1 applic TOPICAL Q12H Acetaminophen [Tylenol] 650 mg PO Q6H PRN PRN Reason: Fever And/ Or Pain Nitroglycerin Sl Tabs [Nitrostat] 0.4 mg SUBLINGUAL Q5M PRN PRN Reason: Chest Pain Lactose-Reduced Food [Ensure Plus] 1 can PO DAILY@0900 Darbepoetin Ten [Aranesp] 40 mcg SQ FR@2099 Dapagliflozin Propanediol [Farxiga] 5 mg PO DAILY@899 Metoprolol Tartrate [Lopressor] 25 mg PO BID@899,2099 Discontinued Furosemide [Lasix] 40 mg PO BID@0600,1399 lisinopriL [Zestril] 2.5 mg PO DAILY@0900 PRN PRN Reason: HOLD SBP <110 Discharge Medication List Sertraline [Zoloft] 50 mg PO HS@209901/25/20 [History] allopurinoL [Zyloprim] 100 mg PO HS@209901/25/20 [History] Acetaminophen [Tylenol] 650 mg PO Q6H PRN 12/11/21 [History] Ferrous Sulfate 330 mg PO BID@0900,209902/28/22 [History] Multivitamins, Thera Liquid [Theragran Liquid (formulary)] 5 ml PO DAILY@0900 02/28/22 [History] Nitroglycerin Sl Tabs [Nitrostat] 0.4 mg SUBLINGUAL Q5M PRN 02/28/22 [History] Omeprazole 20 mg PO DAILY@0602/28/22 [History] Collagenase [Santyl Ointment] 1 applic TOPICAL Q12H 04/02/22 [History] Darbepoetin Ten [Aranesp] 40 mcg SQ FR@209904/02/22 [History] Lactose-Reduced Food [Ensure Plus] 1 can PO DAILY@0900 04/02/22 [History] Dapagliflozin Propanediol [Farxiga] 5 mg PO DAILY@0900 04/09/22 [History] Metoprolol Tartrate [Lopressor] 25 mg PO BID@0900,2100 04/09/22 [History] Cholestyramine (with Sugar) [Questran Packet] 4 gm PO BID@1000,1800 packet 05/08/22 [Rx] Fidaxomicin [Dificid] 200 mg PO BID #18 tab 05/08/22 [Rx] Follow up Appointment(s)/Referral(s): [facility] [NON-STAFF] - As Needed Wilfred Cazares MD [Primary Care Provider] - 1 Week Discharge Disposition: TRANSFER TO SNF/ECF
[2022-05-08 11:38] LABS: Glucose,Whole Blood 160 mg/dL (70-110)
[2022-05-08 11:50] VITALS: BP 101/64; PULSE 90; RESP 18; TEMP 97.9
--- NOTE | 2022-05-10 19:25 | CDI ---
Documentation Clarification Form Date: From: Kaya Jacobs Phone: Admit Date: 04/27/2022 12:07:00 AM Patient Name: Alen Swanson Visit Number: [id number] Discharge Date: 05/08/2022 01:25:00 PM ATTENTION: The Clinical Documentation Specialists (CDI) and [facility] Coding Staff appreciate your assistance in clarifying documentation. Please respond to the clarification below the line at the bottom and electronically sign. The CDI & [facility] Coding staff will review the response and follow-up if needed. Please note: Queries are made part of the Legal Health Record. If you have any questions, please contact the author of this message via ITS. Dr. Wilfred Cazares Conflicting documentation has been found in the medical record. As attending physician, please provide clarification. Chronic kidney disease stage 3 a per Progress Notes and D/C Summary Chronic kidney disease, stage 4 secondary to nephrosclerosis Progress Notes History/Risk Factors: 87yo M, CARRIE on CKD w anemia, hyponatremia sec to free water deficit, C Diff colitis, Proteus mirabilis CAUTI, Perm a fib, Left heel DTI, Hermes buttock stage 2 Baseline creatinine 1.7 to 1.8 mg/dL Clinical Indicators: Blood Urea Nitrogen 85 mg/dL (9-20) Creatinine 3.26 mg/dL (0.66-1.25) Non- GFR(CKD) 16 (>60 ml/min/1.73 sqM) GFR (CKD) 19 (>60 ml/min/1.73 sqM) Treatment: Continue to monitor renal function and urine output. Please clarify the stage of the CKD: [ ] CKD Stage 3a (GFR 45-59) [ X ] CKD Stage 3b (GFR 30-44) [ ] CKD Stage 4 (GFR 15-29) [ ] Other, please specify [ ] Unable to determine (Template last revised: September 2020) CKD3b MTDD
== END 2022-05-08 13:25 | DRG 698 ==
LOC: EC 21:00 → 3SCARD 04-27 00:07
PROVIDERS: ADMIT Internal Medicine; ATTEND Internal Medicine
PROC: 30233N1 Transfusion of Nonautologous Red Blood Cells into Peripheral Vein, Percutaneous Approach (ICD-10-PCS; principal; 2022-04-27)
DX: T83.518A Infection and inflammatory reaction due to other urinary catheter, initial encounter (principal); A41.59 Other Gram-negative sepsis; A04.72 Enterocolitis due to Clostridium difficile, not specified as recurrent; N17.9 Acute kidney failure, unspecified; E87.0 Hyperosmolality and hypernatremia; J96.11 Chronic respiratory failure with hypoxia; D62 Acute posthemorrhagic anemia; E87.1 Hypo-osmolality and hyponatremia; M48.56XA Collapsed vertebra, not elsewhere classified, lumbar region, initial encounter for fracture; I48.21 Permanent atrial fibrillation; N39.0 Urinary tract infection, site not specified; F33.9 Major depressive disorder, recurrent, unspecified; R44.3 Hallucinations, unspecified; D69.6 Thrombocytopenia, unspecified; D63.1 Anemia in chronic kidney disease; F02.80 Dementia in other diseases classified elsewhere, unspecified severity, without behavioral disturbance, psychotic disturbance, mood disturbance, and anxiety; G30.9 Alzheimer's disease, unspecified; E11.22 Type 2 diabetes mellitus with diabetic chronic kidney disease; I12.9 Hypertensive chronic kidney disease with stage 1 through stage 4 chronic kidney disease, or unspecified chronic kidney disease; J44.9 Chronic obstructive pulmonary disease, unspecified; E11.65 Type 2 diabetes mellitus with hyperglycemia; N18.32 Chronic kidney disease, stage 3b; Z99.81 Dependence on supplemental oxygen; L89.322 Pressure ulcer of left buttock, stage 2; L89.312 Pressure ulcer of right buttock, stage 2; L89.621 Pressure ulcer of left heel, stage 1; I95.9 Hypotension, unspecified; E87.8 Other disorders of electrolyte and fluid balance, not elsewhere classified; R29.810 Facial weakness; E86.0 Dehydration; B96.4 Proteus (mirabilis) (morganii) as the cause of diseases classified elsewhere; H54.61 Unqualified visual loss, right eye, normal vision left eye; H91.93 Unspecified hearing loss, bilateral; Y84.6 Urinary catheterization as the cause of abnormal reaction of the patient, or of later complication, without mention of misadventure at the time of the procedure; R33.9 Retention of urine, unspecified; R79.89 Other specified abnormal findings of blood chemistry; N40.1 Benign prostatic hyperplasia with lower urinary tract symptoms; R33.8 Other retention of urine; M1A.9XX0 Chronic gout, unspecified, without tophus (tophi); F41.1 Generalized anxiety disorder; E78.5 Hyperlipidemia, unspecified; E83.42 Hypomagnesemia; E87.6 Hypokalemia; I44.7 Left bundle-branch block, unspecified; M13.0 Polyarthritis, unspecified; Z20.822 Contact with and (suspected) exposure to COVID-19; Z87.01 Personal history of pneumonia (recurrent); Z90.5 Acquired absence of kidney; Z87.440 Personal history of urinary (tract) infections; Z79.84 Long term (current) use of oral hypoglycemic drugs; Z79.899 Other long term (current) drug therapy; Z91.81 History of falling; Z85.841 Personal history of malignant neoplasm of brain; Z87.820 Personal history of traumatic brain injury; Z87.891 Personal history of nicotine dependence; Z98.41 Cataract extraction status, right eye; Z98.42 Cataract extraction status, left eye; Z92.3 Personal history of irradiation; Z82.49 Family history of ischemic heart disease and other diseases of the circulatory system; Z82.69 Family history of other diseases of the musculoskeletal system and connective tissue; Z79.01 Long term (current) use of anticoagulants
CPT/HCPCS: 36415; 36600; 70450; 71046; 80048; 80053; 80306; 81001; 82140; 82272; 82728; 82805; 83540; 83550; 83605; 83735; 83880; 84295; 84484; 85025; 85027; 85610; 85730; 86850; 86900; 86901; 86920; 87040; 87077; 87086; 87186; 87324; 87635; 93005; 94760; 96361; 96365; 96375; 99291

== ENCOUNTER 2022-05-31 13:48 | Inpatient (IN) | payer MEDICARE ==
[2022-05-31] MEDS ORDERED: SODIUM CHLORIDE 0.9% 1,000 ML IV ONE (14:09)
[2022-05-31] MEDS ORDERED: SODIUM CHLORIDE 0.9% 1,000 ML IV STA (14:10)
--- NOTE | 2022-05-31 14:13 | ED ---
General Adult HPI - General Chief complaint: Weakness Stated complaint: Failure to thrive Time Seen by Provider: 05/31/22 13:59 Source: EMS, RN notes reviewed, old records reviewed Mode of arrival: EMS Limitations: altered mental status - History of Present Illness Initial comments: Patient is an 87-year-old male presenting to the emergency department from senior care with concern for dehydration. Last oral intake was around 4 days ago. Patient has loss approximate 40 pounds in the past one month. Patient has limited verbal capability at this time and does not provide any significant history. - Related Data Home Medications Medication Instructions Recorded Confirmed allopurinoL [Zyloprim] 100 mg PO HS@209901/25/20 05/31/22 Acetaminophen [Tylenol] 650 mg PO Q6H PRN 12/11/21 05/31/22 Ferrous Sulfate 330 mg PO BID@0900,209902/28/22 05/31/22 Multivitamins, Thera Liquid 15 ml PO DAILY@0900 02/28/22 05/31/22 [Theragran Liquid (formulary)] Nitroglycerin Sl Tabs [Nitrostat] 0.4 mg SUBLINGUAL Q5M PRN 02/28/22 05/31/22 Omeprazole 20 mg PO DAILY@0600 02/28/22 05/31/22 Darbepoetin Ten [Aranesp] 40 mcg SQ FR@209904/02/22 05/31/22 Lactose-Reduced Food [Ensure Plus] 1 can PO TID@0900,1300,209904/02/22 05/31/22 Dapagliflozin Propanediol [Farxiga] 5 mg PO DAILY@0900 04/09/22 05/31/22 Metoprolol Tartrate [Lopressor] 25 mg PO BID@0900,2100 04/09/22 05/31/22 Prostat Awc 30 ml PO DAILY 05/31/22 05/31/22 Sertraline [Zoloft] 100 mg PO HS 05/31/22 05/31/22 Previous Rx's Medication Instructions Recorded Cholestyramine (with Sugar) 4 gm PO BID@1000,1800 packet 05/08/22 [Questran Packet] Allergies Allergy/AdvReac Type Severity Reaction Status Date / Time No Known Allergies Allergy Verified 05/31/22 14:49 Review of Systems ROS Statement: Those systems with pertinent positive or pertinent negative responses have been documented in the HPI. ROS Other: All systems not noted in ROS Statement are negative. Limitations: ROS unobtainable due to patients medical condition Past Medical History Past Medical History: Atrial Fibrillation, Cancer, COPD, Diabetes Mellitus, Eye Disorder, Hearing Disorder / Deafness, Hypertension, Pneumonia, Prostate Disorder, Renal Disease Additional Past Medical History / Comment(s): Pt recently admitted to [facility] on with a mechanical fall/hematoma R buttock and acute blood loss anemia. Other hx: 2010 Brain cancer with surgery and radiation, L nephrectomy d/t deteriorating kidney, CKD stage III, BPH, chronic thrombocytopenia, chronic anemia, diet controlled diabetes, generalized arthritis, L2 compression fracture, blind R eye, MAKAH blaterally, seasonal allergies. 05/14/21 admitted with abdominal hematoma History of Any Multi-Drug Resistant Organisms: None Reported Past Surgical History: No Surgical Hx Reported Additional Past Surgical History / Comment(s): L nephrectomy, brain tumor removal, bilateral cataract removals, colonoscopy. Past Anesthesia/Blood Transfusion Reactions: No Reported Reaction Additional Past Anesthesia/Blood Transfusion Reaction / Comment(s): Pt has received blood in past without reaction. Past Psychological History: Depression Smoking Status: Former smoker Past Alcohol Use History: None Reported Past Drug Use History: None Reported - Past Family History Father Family Medical History: No Reported History Additional Family Medical History / Comment(s): Father was healthy. He at the age of 62yrs in a MVA. Mother Additional Family Medical History / Comment(s): Mother at the age of 86yrs of "heart problems." Brother(s) Additional Family Medical History / Comment(s): Patient has 3 brothers and one is passed from old age. Patient has 4 sisters with no major medical problems. Patient had 2 children one from muscular dystrophy and one is alive with no major medical problems. General Exam Limitations: altered mental status General appearance: alert, in no apparent distress Head exam: Present: atraumatic Eye exam: Present: normal appearance ENT exam: Present: mucous membranes dry Neck exam: Present: normal inspection Respiratory exam: Present: normal lung sounds bilaterally Cardiovascular Exam: Present: tachycardia GI/Abdominal exam: Present: soft. Absent: tenderness Extremities exam: Present: normal inspection, full ROM. Absent: tenderness Neurological exam: Present: alert, other (Limited ability to follow commands. Does move all extremities, no flaccid weakness.) Expanded Eye Response: (2) open to pain Motor Response: (5) localizes to pain Verbal Response: incomprehensible sounds Psychiatric exam: Present: flat affect Skin exam: Present: normal color Course Vital Signs 05/31/22 05/31/22 13:55 14:05 Temperature 97.2 F L Pulse Rate 77 61 Respiratory 16 16 Rate Blood Pressure 86/52 98/69 O2 Sat by Pulse 96 100 Oximetry EKG Findings - EKG Comments: EKG Findings:: A. fib with rate of 121, RVR. QRS 126. QT 334. QTC 406. Normal axis. Septal Q waves. Lateral T wave inversion. Medical Decision Making - Medical Decision Making Patient reevaluated. Case discussed with Dr. Cazares who is familiar with this patient and admit. He does request nephrology and infectious disease consult - Lab Data Result diagrams: 05/31/22 14:24 05/31/22 14:24 Lab Results 05/31/22 05/31/22 05/31/22 Range/Units 14:24 14:24 14:24 WBC 8.6 (3.8-10.6) k/uL RBC 3.11 L (4.30-5.90) m/uL Hgb 8.7 L (13.0-17.5) gm/dL Hct 30.4 L (39.0-53.0) % MCV 97.8 (80.0-100.0) fL MCH 27.9 (25.0-35.0) pg MCHC 28.5 L (31.0-37.0) g/dL RDW 18.5 H (11.5-15.5) % Plt Count 97 L D (150-450) k/uL MPV 16.7 Neutrophils % (Manual) 72 % Band Neuts % (Manual) 6 % Lymphocytes % (Manual) 17 % Monocytes % (Manual) 5 % Metamyelocytes % 1 % Neutrophils # (Manual) 6.70 (1.3-7.7) k/uL Lymphocytes # (Manual) 1.46 (1.0-4.8) k/uL Monocytes # (Manual) 0.43 (0-1.0) k/uL Metamyelocytes # (Man) 0.09 H (0) k/uL Nucleated RBCs 0 (0-0) /100 WBC Manual Slide Review Performed Large Platelets Present Hypochromasia Marked Poikilocytosis (manual Present Anisocytosis Slight Macrocytosis Slight PT 11.4 (9.0-12.0) sec INR 1.1 (<1.2) APTT 26.5 (22.0-30.0) sec Sodium 162 H* (137-145) mmol/L Potassium 5.0 (3.5-5.1) mmol/L Chloride 130 H (98-107) mmol/L Carbon Dioxide 21 L (22-30) mmol/L Anion Gap 11 mmol/L BUN 106 H* (9-20) mg/dL Creatinine 5.34 H (0.66-1.25) mg/dL Est GFR (CKD-EPI)AfAm 10 (>60 ml/min/1.73 sqM) Est GFR (CKD-EPI)NonAf 9 (>60 ml/min/1.73 sqM) Glucose 168 H (74-99) mg/dL Plasma Lactic Acid Ralph (0.7-2.0) mmol/L Calcium 8.1 L (8.4-10.2) mg/dL Phosphorus 3.3 (2.5-4.5) mg/dL Magnesium 2.2 (1.6-2.3) mg/dL Total Bilirubin 0.5 (0.2-1.3) mg/dL AST 12 L (17-59) U/L ALT 12 (4-49) U/L Alkaline Phosphatase 84 (38-126) U/L Troponin I (0.000-0.034) ng/mL Total Protein 4.9 L (6.3-8.2) g/dL Albumin 2.2 L (3.5-5.0) g/dL TSH 3.780 (0.465-4.680) mIU/L Free T4 1.18 (0.78-2.19) ng/dL Free T3 pg/mL 2.9 (2.8-5.3) pg/ml Urine Color Urine Appearance (Clear) Urine pH (5.0-8.0) Ur Specific [place] (1.001-1.035) Urine Protein (Negative) Urine Glucose (UA) (Negative) Urine Ketones (Negative) Urine Blood (Negative) Urine Nitrite (Negative) Urine Bilirubin (Negative) Urine Urobilinogen (<2.0) mg/dL Ur Leukocyte Esterase (Negative) Urine RBC (0-5) /hpf Urine WBC (0-5) /hpf Ur Squamous Epith Cells (0-4) /hpf Urine Bacteria (None) /hpf Urine Mucus (None) /hpf 05/31/22 05/31/22 05/31/22 Range/Units 14:24 14:24 14:28 WBC (3.8-10.6) k/uL RBC (4.30-5.90) m/uL Hgb (13.0-17.5) gm/dL Hct (39.0-53.0) % MCV (80.0-100.0) fL MCH (25.0-35.0) pg MCHC (31.0-37.0) g/dL RDW (11.5-15.5) % Plt Count (150-450) k/uL MPV Neutrophils % (Manual) % Band Neuts % (Manual) % Lymphocytes % (Manual) % Monocytes % (Manual) % Metamyelocytes % % Neutrophils # (Manual) (1.3-7.7) k/uL Lymphocytes # (Manual) (1.0-4.8) k/uL Monocytes # (Manual) (0-1.0) k/uL Metamyelocytes # (Man) (0) k/uL Nucleated RBCs (0-0) /100 WBC Manual Slide Review Large Platelets Hypochromasia Poikilocytosis (manual Anisocytosis Macrocytosis PT (9.0-12.0) sec INR (<1.2) APTT (22.0-30.0) sec Sodium (137-145) mmol/L Potassium (3.5-5.1) mmol/L Chloride (98-107) mmol/L Carbon Dioxide (22-30) mmol/L Anion Gap mmol/L BUN (9-20) mg/dL Creatinine (0.66-1.25) mg/dL Est GFR (CKD-EPI)AfAm (>60 ml/min/1.73 sqM) Est GFR (CKD-EPI)NonAf (>60 ml/min/1.73 sqM) Glucose (74-99) mg/dL Plasma Lactic Acid Ralph 1.6 (0.7-2.0) mmol/L Calcium (8.4-10.2) mg/dL Phosphorus (2.5-4.5) mg/dL Magnesium (1.6-2.3) mg/dL Total Bilirubin (0.2-1.3) mg/dL AST (17-59) U/L ALT (4-49) U/L Alkaline Phosphatase (38-126) U/L Troponin I 0.038 H* (0.000-0.034) ng/mL Total Protein (6.3-8.2) g/dL Albumin (3.5-5.0) g/dL TSH (0.465-4.680) mIU/L Free T4 (0.78-2.19) ng/dL Free T3 pg/mL (2.8-5.3) pg/ml Urine Color Yellow Urine Appearance Turbid (Clear) Urine pH 5.5 (5.0-8.0) Ur Specific [place] 1.019 (1.001-1.035) Urine Protein 2+ H (Negative) Urine Glucose (UA) 2+ H (Negative) Urine Ketones Negative (Negative) Urine Blood Large H (Negative) Urine Nitrite Negative (Negative) Urine Bilirubin 1+ H (Negative) Urine Urobilinogen <2.0 (<2.0) mg/dL Ur Leukocyte Esterase Large H (Negative) Urine RBC 149 H (0-5) /hpf Urine WBC >182 H (0-5) /hpf Ur Squamous Epith Cells 1 (0-4) /hpf Urine Bacteria Few H (None) /hpf Urine Mucus Rare H (None) /hpf - Radiology Data Radiology results: image reviewed (Chest x-ray shows questionable nodule) Disposition Clinical Impression: CARRIE (acute kidney injury), Urinary tract infection, Dehydration Disposition: ADMITTED IP TO THIS HOSP Is patient prescribed a controlled substance at d/c from ED?: No Referrals: Wilfred Cazares MD [Primary Care Provider] - 1-2 days Time of Disposition: 15:54
[2022-05-31 14:43] LABS: Albumin 2.2 g/dL (3.5-5.0); Calcium 8.1 mg/dL (8.4-10.2); Magnesium 2.2 mg/dL (1.6-2.3); Phosphorus 3.3 mg/dL (2.5-4.5); Total Bilirubin 0.5 mg/dL (0.2-1.3); Total Protein 4.9 g/dL (6.3-8.2)
[2022-05-31 14:44] LABS: Anisocytosis Slight; HCT 30.4 % (39.0-53.0); HGB 8.7 gm/dL (13.0-17.5); Hypochromasia Marked; MCH 27.9 pg (25.0-35.0); MCHC 28.5 g/dL (31.0-37.0); MCV 97.8 fL (80.0-100.0); Macrocytosis Slight; Mean Platelet Volume 16.7; RBC 3.11 m/uL (4.30-5.90); RDW 18.5 % (11.5-15.5); WBC 8.6 k/uL (3.8-10.6)
[2022-05-31 14:48] LABS: Appearance,Urine Turbid (Clear); Bacteria,Urine Few /hpf; Bilirubin,Urine 1+ (Negative); Blood,Urine Large (Negative); Color,Urine Yellow; Glucose,Urine (UA) 2+ (Negative); Ketones,Urine Negative (Negative); Leukocyte Esterase,Urine Large (Negative); Mucus,Urine Rare /hpf; Nitrite,Urine Negative (Negative); PH, Urine 5.5 (5.0-8.0); Protein,Urine 2+ (Negative); RBC,Urine 149 /hpf (0-5); Specific Gravity,Urine 1.019 (1.001-1.035); Squamous Epithelial Cell,Urine 1 /hpf (0-4); Urobilinogen,Urine <2.0 mg/dL (<2.0); WBC,Urine >182 /hpf (0-5)
[2022-05-31 15:00] LABS: T4, Free (Free Thyroxine) 1.18 ng/dL (0.78-2.19)
[2022-05-31 15:06] LABS: INR 1.1 (<1.2); Partial Thromboplastin Time 26.5 sec (22.0-30.0); Prothrombin Time 11.4 sec (9.0-12.0)
--- NOTE | 2022-05-31 15:10 | XR ---
EXAMINATION TYPE: XR chest 2V DATE OF EXAM: 05/31/2022 COMPARISON: 04/26/2022 INDICATION: Weakness TECHNIQUE: Frontal and lateral views of the chest are obtained. FINDINGS: The heart size is normal. The pulmonary vasculature is normal. Small round density may be at the tip of the scapula on the right. This could be summation density wi th overlying ribs. Follow-up is recommended.. IMPRESSION: 1. Acute pulmonary process is not radiographically apparent. 2. Possible nodule right lung base. Follow-up exam few months is recommended
[2022-05-31 15:13] LABS: Band Neutrophils % 6 %; Lymphocytes # (M) 1.46 k/uL (1.0-4.8); Metamyelocytes # (M) 0.09 k/uL (0); Metamyelocytes % 1 %; Monocytes # (M) 0.43 k/uL (0-1.0); Neutrophils % (M) 72 %; Nucleated Red Blood Cells 0 /100 WBC (0-0); Total Cells Counted 200
[2022-05-31 15:14] LABS: Large Platelets Present
[2022-05-31 15:15] LABS: Poikilocytosis (M) Present
[2022-05-31] MEDS ORDERED: SODIUM CHLORIDE 0.9% 500 ML 500 ML IV STA (15:31)
[2022-05-31] MEDS ORDERED: NALOXONE 0.4 MG/ML 1 ML VIAL IV PRN (15:56)
[2022-05-31 18:03] LABS: Platelet Count 97 k/uL (150-450)
[2022-06-01] MEDS ORDERED: METOPROLOL TARTRATE 5 MG/5 ML VIAL IVP PRN (04:41)
--- NOTE | 2022-06-01 06:44 | P.CRDCN ---
History of Present Illness Consult date: 06/01/22 Chief complaint: Change in mental status History of present illness: This is an 87-year-old gentleman who sees her regularly irregularly with a past medical history significant for permanent atrial fibrillation, mild cardiomyopathy with EF between 40-45%. Echo was performed in 2021, known underlying dementia, who was [facility] for further cardiac evaluation. The patient is almost nonverbal an extremely poor historian and the history was taken nurse taking care of the patient as well as from the chart. We consulted to see the patient because of atrial fibrillation with RVR. No indication that the patient was experiencing symptoms of heart racing or fluttering nor he didn't have any episodes of syncope and no symptoms of chest pain or chest discomfort. He was found to be in A. fib with RVR. The patient apparently lost about 40 pounds probably because of decreased oral intake but probably another etiology to be ruled out like cancer. He was found to be in acute renal failure with creatinine about 5 he is known to have chronic kidney disease but his baseline creatinine is around 2. He is also hypertrophy and hypernatremic. His pressure was low. He was in A. fib with RVR. He is known to have permanent atrial fibrillation he is not on any anticoagulation because of history of retroperitoneal bleeding. At this point I would advise no more AV douglas tariq agents like beta tariq or calcium channel tariq and start the patient on amiodarone. No need to repeat an echocardiogram in the light of recent echo showing an EF between 40-45%. Overall the prognosis is extremely Past Medical History Past Medical History: Atrial Fibrillation, Cancer, COPD, Diabetes Mellitus, Eye Disorder, Hearing Disorder / Deafness, Hypertension, Pneumonia, Prostate Disorder, Renal Disease Additional Past Medical History / Comment(s): Pt recently admitted to [facility] on 01/25/20 with a mechanical fall/hematoma R buttock and acute blood loss anemia. Other hx: 2010 Brain cancer with surgery and radiation, L nephrectomy d/t deteriorating kidney, CKD stage III, BPH, chronic thrombocytopenia, chronic anemia, diet controlled diabetes, generalized arthritis, L2 compression fracture, blind R eye, [place] blaterally, seasonal allergies. 05/14/21 admitted with abdominal hematoma History of Any Multi-Drug Resistant Organisms: None Reported Past Surgical History: No Surgical Hx Reported Additional Past Surgical History / Comment(s): L nephrectomy, brain tumor kam mg, bilateral cataract removals, colonoscopy. Past Anesthesia/Blood Transfusion Reactions: No Reported Reaction Additional Past Anesthesia/Blood Transfusion Reaction / Comment(s): Pt has received blood in past without reaction. Past Psychological History: Depression Additional Psychological History / Comment(s): resides at [facility] He used to use a walker to ambulate. per er report patient has been weak and non ambulatory recently Smoking Status: Former smoker Past Alcohol Use History: None Reported Additional Past Alcohol Use History / Comment(s): Unknown when pt started smoking pipe but quit in 1977. Past Drug Use History: None Reported - Past Family History Father Family Medical History: No Reported History Additional Family Medical History / Comment(s): Father was healthy. He at the age of 62yrs in a MVA. Mother Additional Family Medical History / Comment(s): Mother at the age of 86yrs of "heart problems." Brother(s) Additional Family Medical History / Comment(s): Patient has 3 brothers and one is passed from old age. Patient has 4 sisters with no major medical problems. Patient had 2 children one from muscular dystrophy and one is alive with no major medical problems. Medications and Allergies Home Medications Medication Instructions Recorded Confirmed Type allopurinoL [Zyloprim] 100 mg PO HS@209901/25/20 05/31/22 History Acetaminophen [Tylenol] 650 mg PO Q6H PRN 12/11/21 05/31/22 History Ferrous Sulfate 330 mg PO BID@0900,209902/28/22 05/31/22 History Multivitamins, Thera Liquid 15 ml PO DAILY@89902/28/22 05/31/22 History [Theragran Liquid (formulary)] Nitroglycerin Sl Tabs [Nitrostat] 0.4 mg SUBLINGUAL Q5M PRN 02/28/22 05/31/22 History Omeprazole 20 mg PO DAILY@0602/28/22 05/31/22 History Darbepoetin Ten [Aranesp] 40 mcg SQ FR@209904/02/22 05/31/22 History Lactose-Reduced Food [Ensure Plus] 1 can PO TID@0900,1300,209904/02/22 05/31/22 History Dapagliflozin Propanediol [Farxiga] 5 mg PO DAILY@0900 04/09/22 05/31/22 History Metoprolol Tartrate [Lopressor] 25 mg PO BID@0900,2100 04/09/22 05/31/22 History Cholestyramine (with Sugar) 4 gm PO BID@1000,1800 packet 05/08/22 05/31/22 Rx [Questran Packet] Prostat Awc 30 ml PO DAILY 05/31/22 05/31/22 History Sertraline [Zoloft] 100 mg PO HS 05/31/22 05/31/22 History Allergies Allergy/AdvReac Type Severity Reaction Status Date / Time No Known Allergies Allergy Verified 05/31/22 14:49 Physical Exam Vitals: Vital Signs Temp Pulse Pulse Resp BP BP BP 06/01/22 04:47 133 H 94/64 06/01/22 03:45 124 H 18 84/53 90/60 06/01/22 00:00 70 19 94/64 05/31/22 20:00 98.1 F 79 18 89/59 05/31/22 17:19 62 18 98/52 05/31/22 16:20 115 H 16 121/95 05/31/22 14:05 97.2 F L 61 16 98/69 05/31/22 13:55 77 16 86/52 Pulse Ox 06/01/22 04:47 06/01/22 03:45 98 06/01/22 00:00 98 05/31/22 20:00 100 05/31/22 17:19 98 05/31/22 16:20 98 05/31/22 14:05 100 05/31/22 13:55 96 Intake and Output 05/31/22 05/31/22 06/01/22 14:59 22:59 06:59 Other: Voiding Method Indwelling Catheter Indwelling Catheter # Bowel Movements 1 Weight 68.039 kg 68.039 kg - Constitutional General appearance: no acute distress - Respiratory Respiratory: bilateral: diminished - Cardiovascular Rhythm: irregularly irregular Heart sounds: normal: S1, S2 Results 05/31/22 14:24 05/31/22 14:24 Cardiac Enzymes 05/31/22 05/31/22 Range/Units 14:24 14:24 AST 12 L (17-59) U/L Troponin I 0.038 H* (0.000-0.034) ng/mL Coagulation 05/31/22 Range/Units 14:24 PT 11.4 (9.0-12.0) sec APTT 26.5 (22.0-30.0) sec CBC 05/31/22 Range/Units 14:24 WBC 8.6 (3.8-10.6) k/uL RBC 3.11 L (4.30-5.90) m/uL Hgb 8.7 L (13.0-17.5) gm/dL Hct 30.4 L (39.0-53.0) % Plt Count 97 L D (150-450) k/uL Comprehensive Metabolic Panel 05/31/22 Range/Units 14:24 Sodium 162 H* (137-145) mmol/L Potassium 5.0 (3.5-5.1) mmol/L Chloride 130 H (98-107) mmol/L Carbon Dioxide 21 L (22-30) mmol/L BUN 106 H* (9-20) mg/dL Creatinine 5.34 H (0.66-1.25) mg/dL Glucose 168 H (74-99) mg/dL Calcium 8.1 L (8.4-10.2) mg/dL AST 12 L (17-59) U/L ALT 12 (4-49) U/L Alkaline Phosphatase 84 (38-126) U/L Total Protein 4.9 L (6.3-8.2) g/dL Albumin 2.2 L (3.5-5.0) g/dL Current Medications Generic Name Dose Route Start Last Admin Trade Name Freq PRN Reason Stop Dose Admin Ceftriaxone Sodium 1 gm/ 50 mls @ 100 mls/hr 06/01/22 16:00 Sodium Chloride IVPB Q24H KEON Protocol Metoprolol Tartrate 2.5 mg 06/01/22 04:41 06/01/22 04:48 Metoprolol Tartrate 5 Mg/5 Ml Vial IVP 2.5 mg Q6HR PRN Administration Heart Rate - HIGH Naloxone HCl 0.2 mg 05/31/22 15:56 Naloxone 0.4 Mg/Ml 1 Ml Vial IV Q2M PRN Opioid Reversal Pantoprazole Sodium 40 mg 06/01/22 09:00 Pantoprazole 40 Mg/10 Ml Vial IV DAILY KEON Intake and Output 05/31/22 05/31/22 06/01/22 14:59 22:59 06:59 Other: Voiding Method Indwelling Catheter Indwelling Catheter # Bowel Movements 1 Weight 68.039 kg 68.039 kg Patient Weight 06/01/22 06:59 Weight 68.039 kg 05/31/22 14:24 05/31/22 14:24 Assessment and Plan Assessment: Assessment Atrial fibrillation with rapid ventricular response Known permanent atrial fibrillation Cardiomyopathy was EF between 40-45% Change in mental status Known Alzheimer dementia Acute on chronic renal failure With loss of unknown etiology Electrolytes imbalance Multiple comorbid conditions Plan Stop metoprolol Start the patient on amiodarone was bolus and drip IV fluid The atrial fibrillation likely to be triggered by dehydration/hypovolemia Overall the prognosis is forgetting his age and underlying condition Follow-up with the patient No need to repeat an echo in the light of recent echo showing an EF between 40- 45%
[2022-06-01] MEDS ORDERED: DEXTROSE 5% IN WATER 100 ML with AMIODARONE 150 MG IV ONE (07:20)
[2022-06-01] MEDS ORDERED: AMIODARONE 360 MG in DEXTROSE 5% IN WATER 200 ML IV ONE ×2 (07:30)
--- NOTE | 2022-06-01 08:36 | P.CONS ---
History of Present Illness - Reason for Consult Consult date: 05/31/22 UTI and recent C. diff Requesting physician: Satish Mathew - Chief Complaint Weakness and decreased oral intake x few days - History of Present Illness Patient is 87 year old male with multiple comorbidities recent admission to the hospital the patient was treated for UTI and C. diff colitis, patient is a [facility] and did have chronic indwelling Ramirez catheter patient has been sent to the ER for evaluation of decreased appetite apparently the patient last oral intake has been about 4 days ago patient has been weak and lethargic history of any fever vomiting or diarrhea, patient on presentation to the hospital was afebrile and no fever has been recorded was subsequently patient did have a normal white count patient was noticed to have significant elevated BUN of 106 creatinine is 5.34 patient did have a positive UA with concern for catheter associated UTI patient was started on Rocephin 1 g every 12 hours infectious disease was consulted for further management of antibiotic therapy most of the information has been obtained from review the chart and talking to the son at the bedside as the patient did not answer any question Review of Systems Positive points has been mentioned in HPI complete review could not be obtained because of his underlying mental status Past Medical History Past Medical History: Atrial Fibrillation, Cancer, COPD, Diabetes Mellitus, Eye Disorder, Hearing Disorder / Deafness, Hypertension, Pneumonia, Prostate Disorder, Renal Disease Additional Past Medical History / Comment(s): Pt recently admitted to [facility] on 01/25/20 with a mechanical fall/hematoma R buttock and acute blood loss anemia. Other hx: 2010 Brain cancer with surgery and radiation, L nephrectomy d/t deteriorating kidney, CKD stage III, BPH, chronic thrombocytopenia, chronic anemia, diet controlled diabetes, generalized arthritis, L2 compression fracture, blind R eye, [place] blaterally, seasonal allergies. 05/14/21 admitted with abdominal hematoma History of Any Multi-Drug Resistant Organisms: None Reported Past Surgical History: No Surgical Hx Reported Additional Past Surgical History / Comment(s): L nephrectomy, brain tumor removal, bilateral cataract removals, colonoscopy. Past Anesthesia/Blood Transfusion Reactions: No Reported Reaction Additional Past Anesthesia/Blood Transfusion Reaction / Comm: Pt has received blood in past without reaction. Past Psychological History: Depression Smoking Status: Former smoker Past Alcohol Use History: None Reported Past Drug Use History: None Reported - Past Family History Father Family Medical History: No Reported History Additional Family Medical History / Comment(s): Father was healthy. He at the age of 62yrs in a MVA. Mother Additional Family Medical History / Comment(s): Mother at the age of 86yrs of "heart problems." Brother(s) Additional Family Medical History / Comment(s): Patient has 3 brothers and one is passed from old age. Patient has 4 sisters with no major medical problems. Patient had 2 children one from muscular dystrophy and one is alive with no major medical problems. Medications and Allergies Home Medications Medication Instructions Recorded Confirmed Type allopurinoL [Zyloprim] 100 mg PO HS@209901/25/20 05/31/22 History Acetaminophen [Tylenol] 650 mg PO Q6H PRN 12/11/21 05/31/22 History Ferrous Sulfate 330 mg PO BID@0900,209902/28/22 05/31/22 History Multivitamins, Thera Liquid 15 ml PO DAILY@0900 02/28/22 05/31/22 History [Theragran Liquid (formulary)] Nitroglycerin Sl Tabs [Nitrostat] 0.4 mg SUBLINGUAL Q5M PRN 02/28/22 05/31/22 History Omeprazole 20 mg PO DAILY@0600 02/28/22 05/31/22 History Darbepoetin Ten [Aranesp] 40 mcg SQ FR@209904/02/22 05/31/22 History Lactose-Reduced Food [Ensure Plus] 1 can PO TID@0900,1300,209904/02/22 05/31/22 History Dapagliflozin Propanediol [Farxiga] 5 mg PO DAILY@0900 04/09/22 05/31/22 History Metoprolol Tartrate [Lopressor] 25 mg PO BID@0900,209904/09/22 05/31/22 History Cholestyramine (with Sugar) 4 gm PO BID@1000,1800 packet 05/08/22 05/31/22 Rx [Questran Packet] Prostat Awc 30 ml PO DAILY 05/31/22 05/31/22 History Sertraline [Zoloft] 100 mg PO HS 05/31/22 05/31/22 History Allergies Allergy/AdvReac Type Severity Reaction Status Date / Time No Known Allergies Allergy Verified 05/31/22 14:49 Physical Exam Vitals: Vital Signs Temp Pulse Resp BP Pulse Ox 05/31/22 16:20 115 H 16 121/95 98 05/31/22 14:05 97.2 F L 61 16 98/69 100 05/31/22 13:55 77 16 86/52 96 Intake and Output 05/31/22 05/31/22 05/31/22 06:59 14:59 22:59 Other: Weight 68.039 kg GENERAL DESCRIPTION: Elderly male lying in bed, no distress. No tachypnea or accessory muscle of respiration use. HEENT: Shows Pallor , no scleral icterus. Oral mucous membrane is dry. No pharyngeal erythema or thrush NECK: Trachea central, no thyromegaly. LUNGS: Unlabored breathing. Decreased breath sounds at the base HEART: S1, S2, regular rate and rhythm. No loud murmur ABDOMEN: Soft, no tenderness , guarding or rigidity, no organomegaly EXTREMITIES: No edema of feet. SKIN: No rash, no masses palpable. NEUROLOGICAL: The patient is awake, but nonverbal orientation could not be determined Results CBC & Chem 7: 05/31/22 14:24 05/31/22 14:24 Labs: Abnormal Lab Results - Last 24 Hours (Table) 05/31/22 05/31/22 05/31/22 Range/Units 14:24 14:24 14:24 RBC 3.11 L (4.30-5.90) m/uL Hgb 8.7 L (13.0-17.5) gm/dL Hct 30.4 L (39.0-53.0) % MCHC 28.5 L (31.0-37.0) g/dL RDW 18.5 H (11.5-15.5) % Plt Count 97 L D (150-450) k/uL Metamyelocytes # (Man) 0.09 H (0) k/uL Sodium 162 H* (137-145) mmol/L Chloride 130 H (98-107) mmol/L Carbon Dioxide 21 L (22-30) mmol/L BUN 106 H* (9-20) mg/dL Creatinine 5.34 H (0.66-1.25) mg/dL Glucose 168 H (74-99) mg/dL Calcium 8.1 L (8.4-10.2) mg/dL AST 12 L (17-59) U/L Troponin I 0.038 H* (0.000-0.034) ng/mL Total Protein 4.9 L (6.3-8.2) g/dL Albumin 2.2 L (3.5-5.0) g/dL Urine Protein (Negative) Urine Glucose (UA) (Negative) Urine Blood (Negative) Urine Bilirubin (Negative) Ur Leukocyte Esterase (Negative) Urine RBC (0-5) /hpf Urine WBC (0-5) /hpf Urine Bacteria (None) /hpf Urine Mucus (None) /hpf 05/31/22 Range/Units 14:28 RBC (4.30-5.90) m/uL Hgb (13.0-17.5) gm/dL Hct (39.0-53.0) % MCHC (31.0-37.0) g/dL RDW (11.5-15.5) % Plt Count (150-450) k/uL Metamyelocytes # (Man) (0) k/uL Sodium (137-145) mmol/L Chloride (98-107) mmol/L Carbon Dioxide (22-30) mmol/L BUN (9-20) mg/dL Creatinine (0.66-1.25) mg/dL Glucose (74-99) mg/dL Calcium (8.4-10.2) mg/dL AST (17-59) U/L Troponin I (0.000-0.034) ng/mL Total Protein (6.3-8.2) g/dL Albumin (3.5-5.0) g/dL Urine Protein 2+ H (Negative) Urine Glucose (UA) 2+ H (Negative) Urine Blood Large H (Negative) Urine Bilirubin 1+ H (Negative) Ur Leukocyte Esterase Large H (Negative) Urine RBC 149 H (0-5) /hpf Urine WBC >182 H (0-5) /hpf Urine Bacteria Few H (None) /hpf Urine Mucus Rare H (None) /hpf Assessment and Plan (1) UTI (urinary tract infection) Current Visit: Yes Status: Acute Code(s): N39.0 - URINARY TRACT INFECTION, SITE NOT SPECIFIED SNOMED Code(s): 49566872 Plan: 1patient is in the hospital with generalized weakness decrease oral intake patient did have chronic indwelling Ramirez catheter and did have a positive UA concerning for cath associated UTI versus Ramirez colonization as the patient not running any fever or elevated white count. 2we will change his Ramirez catheter and obtain a urine culture from the new Ramirez 3switch Rocephin to 1 g daily while waiting for the culture finalized 4gentle IV fluid We will follow on clinical condition and cultures to further adjust medication if needed Thank you for this consultation will follow this patient with you Time with Patient: Greater than 30
[2022-06-01] MEDS: PANTOPRAZOLE 40 MG/10 ML VIAL IV SCH (10:00)
[2022-06-01 10:34] LABS: Calcium 7.9 mg/dL (8.4-10.2)
[2022-06-01 10:58] LABS: Anisocytosis Slight; Basophils % (A) 0 %; Eosinophils % (A) 0 %; HCT 31.2 % (39.0-53.0); HGB 8.9 gm/dL (13.0-17.5); Hypochromasia Marked; Lymphocytes # (A) 1.7 k/uL (1.0-4.8); Lymphocytes % (A) 21 %; MCH 29.1 pg (25.0-35.0); MCHC 28.6 g/dL (31.0-37.0); MCV 101.5 fL (80.0-100.0); Macrocytosis Moderate; Mean Platelet Volume 15.9; Monocytes # (A) 0.4 k/uL (0-1.0); Monocytes % (A) 5 %; Neutrophils # (A) 5.8 k/uL (1.3-7.7); Neutrophils % (A) 71 %; Platelet Count 107 k/uL (150-450); RBC 3.07 m/uL (4.30-5.90); RDW 18.2 % (11.5-15.5); WBC 8.2 k/uL (3.8-10.6)
--- NOTE | 2022-06-01 12:39 | P.HPIM ---
History of Present Illness H&P Date: 06/01/22 Chief Complaint: Encephalopathy/CARRIE/Afib with RVR HISTORY OF PRESENT ILLNESS This is an 87-year-old male patient with past medical history of Parkinsons disease, Alzheimers dementia, diabetes mellitus type 2, chronic atrial fibrillation not on anticoagulation due to retroperitoneal hematoma, history of pneumonia, benign prostatic hypertrophy, chronic kidney disease with history of left-sided nephrectomy, history of large retroperitoneal hematoma 04/2021, history of aspiration pneumonia, chronic thrombocytopenia, chronic anemia. history of cardiomyopathy with EF 45% He has had multiple hospitalizations over the past year including UTI and streptococcal bacteremia, A. fib with RVR and aspiration pneumonia, subdural hematoma requiring transfer to [facility] with no surgical intervention provided. Patient's most recent hospitalization was less than a month ago with acute kidney injury, Catheter - associated UTI with Clostricium difficile colitis, and he was sent back to [facility] on the [place] unfortunately patient was not eating or drinking well, he has lost quiet a bit of weight with heel and buttock wounds and his nurse yesterday stated that she was concerned about him and that he has not been eating or drinking anything, and had lost a lot of weight , numerous attempt according to the school social worker were made to assign patient to Hospice or Palliative care were not successful so patient was sent into the ER for evaluation at [facility], he was found to have CARRIE ion CKD3b, with sodium of 162, BUN 108 and Creatinine 5.8, he was found to have atrial fibrillation and RVR, and he was started on Amiodaron drip per cardiology and was taken off Lopressor, and he was started on Rocephin 1 gr IVPB daily per ID and was admitted to the Hospital. Patient was seen with his son at the bedside, not responsive, hypotensive with no urine output and I have recommended hospice care Immediately since his is imminent, his son stated that he wanted to wait for his mother and his sister to make the final decision, I have asked his nurse to call [facility] Nurse to come and talk to the family about hospice REVIEW OF SYSTEMS Constitutional: Chronically ill frail male appears to be dying HEENT: unresponsive Lungs: appears short of breath, occasional cough. Cardiovascular: no edema.,appears short of breath with oprthopnea. Abdominal: appears with sunken abdomen without pain . Genitourinary:Ramirez catheter in [lace with urine sediment Musculoskeletal:contracted with muscle atrophy Integumentary: unstageable wound on the buttock with left heel escar Neurologic: Stuporous, unresponsive Psychiatric: baseline Dementia Endocrine: lost 40 lbs MEDICAL HISTORY Chronic atrial fibrillation not on anticoagulation due to retroperitoneal hematoma COPD Parkinsons disease Alzheimersdementia Diabetes mellitus type 2 Deafness Recurrent pneumonia Benign prostatic hypertrophy Chronic kidney disease stage III Chronic gout Recurrent depression Retroperitoneal hematoma 04/2021 Subdural hematoma Brain cancer with surgery and radiation in 2009 SURGICAL HISTORY Left nephrectomy Brain tumor removal Bilateral cataract removal Colonoscopy SOCIAL HISTORY Patient smoked for long time he quit in 1977, no alcohol abuse, he was still living with his until his hospitalization a week ago when patient was transferred to the detention at the time. FAMILY HISTORY His father from motor vehicle accident is a 62, other from heart disease at 86, patient had 3 brother one of them of old age for sister with no major medical problem. Patient had 2 children one had muscular dystrophy other one is living and well. PHYSICAL EXAMINATION Gen: This is an 87-year-old male.lying in bed unresponsive HEENT: Head is atraumatic, normocephalic. Pupils equal, round. Sclerae is anicteric, conjunctivea were pale, mucous membranes of the mouth are dry NECK: Supple. No JVD. No lymphadenopathy. No thyromegaly. LUNGS: Decreased breath sounds bilaterally with a few scattered rhonchi. No intercostal retractions. HEART: First heart sound is depressed second heart sound is normal, irregularly irregular there is BAR 2/6 located at the left sternal border. ABDOMEN: Soft. Bowel sounds are present. No masses. No tenderness. Ramirez draining vincenzo urine with seiment. EXTREMITIES: No pedal edema. No calf tenderness. Dorsalis pedis palpable bilaterally. NEUROLOGICAL: Patient is stuporous does not follow commands ASSESSMENT AND PLAN: 1. Metabolic Encephalopathy due to CARRIE on CKD3b. we will continue with IVF and we will monitor labs very kel Nephrology consult. 2. Ramirez catheter associated UTI with sepsis. we will check urine cultures, blood cultures, and we will continue with Rocephin 1 gr IVPB daily, ID consult appreciated. 3. Atrial fibrillation with RVR . was seen by Cardiology and he was placed on Amiodarone drip and was taken off Lopressor , currently hypotensive, Echocardiogram was done recently and did show EF 45 %. 4. Anemia of chronic disease. was on iron and Aranesp. 5. COPD without exacerbation.we will continue with O2 support. 6. Chronic hypoxic respiratory failure usually on 2 L nasal cannula. Continue oxygen therapy. 7. Diabetes mellitus type 2. patient is currently unresponsive , we will hold all Rx 8. Benign prostatic hypertrophy with urinary retention and chronic Ramirez catheter. 9. Chronic kidney disease stage III with history of left-sided nephrectomy. Avoid nephrotoxic agents. 10. History of large retroperitoneal hematoma with acute blood loss, stable, 04/2021. 11. History of subdural hematoma, not requiring surgery. 12. Chronic gout. hold off Allopurinol. 13. Recurrent depression. 14. Generalized anxiety disorder. 15. GI prophylaxis. Protonix 40 mg IV push daily. 16. DVT prophylaxis. Heparin 5000 units Sc Q 8 h . 17. I spoke with his son about changing his code status, he stated that he wanted to wait for his mother and sister to be here. 18. is imminent, recommended Hospice care we will consult [facility]. Past Medical History Past Medical History: Atrial Fibrillation, Cancer, COPD, Diabetes Mellitus, Eye Disorder, Hearing Disorder / Deafness, Hypertension, Pneumonia, Prostate Disorder, Renal Disease Additional Past Medical History / Comment(s): Pt recently admitted to [facility] on 01/25/20 with a mechanical fall/hematoma R buttock and acute blood loss anemia. Other hx: 2010 Brain cancer with surgery and radiation, L nephrectomy d/t deteriorating kidney, CKD stage III, BPH, chronic thrombocytopenia, chronic anemia, diet controlled diabetes, generalized arthritis, L2 compression fracture, blind R eye, [place] blaterally, seasonal allergies. 05/14/21 admitted with abdominal hematoma History of Any Multi-Drug Resistant Organisms: None Reported Past Surgical History: No Surgical Hx Reported Additional Past Surgical History / Comment(s): L nephrectomy, brain tumor removal, bilateral cataract removals, colonoscopy. Past Anesthesia/Blood Transfusion Reactions: No Reported Reaction Additional Past Anesthesia/Blood Transfusion Reaction / Comment(s): Pt has received blood in past without reaction. Past Psychological History: Depression Smoking Status: Former smoker Past Alcohol Use History: None Reported Past Drug Use History: None Reported - Past Family History Father Family Medical History: No Reported History Additional Family Medical History / Comment(s): Father was healthy. He at the age of 62yrs in a MVA. Mother Additional Family Medical History / Comment(s): Mother at the age of 86yrs of "heart problems." Brother(s) Additional Family Medical History / Comment(s): Patient has 3 brothers and one is passed from old age. Patient has 4 sisters with no major medical problems. Patient had 2 children one from muscular dystrophy and one is alive with no major medical problems. Medications and Allergies Home Medications Medication Instructions Recorded Confirmed Type allopurinoL [Zyloprim] 100 mg PO HS@209901/25/20 05/31/22 History Acetaminophen [Tylenol] 650 mg PO Q6H PRN 12/11/21 05/31/22 History Ferrous Sulfate 330 mg PO BID@09,209902/28/22 05/31/22 History Multivitamins, Thera Liquid 15 ml PO DAILY@0900 02/28/22 05/31/22 History [Theragran Liquid (formulary)] Nitroglycerin Sl Tabs [Nitrostat] 0.4 mg SUBLINGUAL Q5M PRN 02/28/22 05/31/22 History Omeprazole 20 mg PO DAILY@0600 02/28/22 05/31/22 History Darbepoetin Ten [Aranesp] 40 mcg SQ FR@209904/02/22 05/31/22 History Lactose-Reduced Food [Ensure Plus] 1 can PO TID@0900,1300,209904/02/22 05/31/22 History Dapagliflozin Propanediol [Farxiga] 5 mg PO DAILY@0900 04/09/22 05/31/22 History Metoprolol Tartrate [Lopressor] 25 mg PO BID@0900,209904/09/22 05/31/22 History Cholestyramine (with Sugar) 4 gm PO BID@1000,1800 packet 05/08/22 05/31/22 Rx [Questran Packet] Prostat Awc 30 ml PO DAILY 05/31/22 05/31/22 History Sertraline [Zoloft] 100 mg PO HS 05/31/22 05/31/22 History Allergies Allergy/AdvReac Type Severity Reaction Status Date / Time No Known Allergies Allergy Verified 05/31/22 14:49 Physical Exam Vitals: Vital Signs Temp Pulse Pulse Resp BP BP BP 06/01/22 06:59 97/66 06/01/22 04:47 133 H 94/64 06/01/22 03:45 124 H 18 84/53 90/60 06/01/22 00:00 70 19 94/64 05/31/22 20:00 98.1 F 79 18 89/59 05/31/22 17:19 62 18 98/52 05/31/22 16:20 115 H 16 121/95 05/31/22 14:05 97.2 F L 61 16 98/69 05/31/22 13:55 77 16 86/52 Pulse Ox 06/01/22 06:59 06/01/22 04:47 06/01/22 03:45 98 06/01/22 00:00 98 05/31/22 20:00 100 05/31/22 17:19 98 05/31/22 16:20 98 05/31/22 14:05 100 05/31/22 13:55 96 Intake and Output 05/31/22 06/01/22 06/01/22 22:59 06:59 14:59 Output Total 101 Balance -101 Output: Urine 100 Stool 1 Other: Voiding Method Indwelling Catheter Indwelling Catheter # Bowel Movements 1 Weight 68.039 kg Results CBC & Chem 7: 06/01/22 08:30 06/01/22 08:30 Labs: Abnormal Lab Results - Last 24 Hours (Table) 05/31/22 05/31/22 05/31/22 Range/Units 14:24 14:24 14:24 RBC 3.11 L (4.30-5.90) m/uL Hgb 8.7 L (13.0-17.5) gm/dL Hct 30.4 L (39.0-53.0) % MCV (80.0-100.0) fL MCHC 28.5 L (31.0-37.0) g/dL RDW 18.5 H (11.5-15.5) % Plt Count 97 L D (150-450) k/uL Metamyelocytes # (Man) 0.09 H (0) k/uL Sodium 162 H* (137-145) mmol/L Chloride 130 H (98-107) mmol/L Carbon Dioxide 21 L (22-30) mmol/L BUN 106 H* (9-20) mg/dL Creatinine 5.34 H (0.66-1.25) mg/dL Glucose 168 H (74-99) mg/dL Calcium 8.1 L (8.4-10.2) mg/dL AST 12 L (17-59) U/L Troponin I 0.038 H* (0.000-0.034) ng/mL Total Protein 4.9 L (6.3-8.2) g/dL Albumin 2.2 L (3.5-5.0) g/dL Urine Protein (Negative) Urine Glucose (UA) (Negative) Urine Blood (Negative) Urine Bilirubin (Negative) Ur Leukocyte Esterase (Negative) Urine RBC (0-5) /hpf Urine WBC (0-5) /hpf Urine Bacteria (None) /hpf Urine Mucus (None) /hpf 05/31/22 06/01/22 06/01/22 Range/Units 14:28 08:30 08:30 RBC 3.07 L (4.30-5.90) m/uL Hgb 8.9 L (13.0-17.5) gm/dL Hct 31.2 L (39.0-53.0) % MCV 101.5 H (80.0-100.0) fL MCHC 28.6 L (31.0-37.0) g/dL RDW 18.2 H (11.5-15.5) % Plt Count 107 L (150-450) k/uL Metamyelocytes # (Man) (0) k/uL Sodium 165 H* (137-145) mmol/L Chloride 132 H* (98-107) mmol/L Carbon Dioxide 19 L (22-30) mmol/L BUN 108 H* (9-20) mg/dL Creatinine 5.82 H (0.66-1.25) mg/dL Glucose 137 H (74-99) mg/dL Calcium 7.9 L (8.4-10.2) mg/dL AST (17-59) U/L Troponin I (0.000-0.034) ng/mL Total Protein (6.3-8.2) g/dL Albumin (3.5-5.0) g/dL Urine Protein 2+ H (Negative) Urine Glucose (UA) 2+ H (Negative) Urine Blood Large H (Negative) Urine Bilirubin 1+ H (Negative) Ur Leukocyte Esterase Large H (Negative) Urine RBC 149 H (0-5) /hpf Urine WBC >182 H (0-5) /hpf Urine Bacteria Few H (None) /hpf Urine Mucus Rare H (None) /hpf Microbiology - Last 24 Hours (Table) 05/31/22 14:28 Urine Culture - Preliminary Urine,Voided Thrombosis Risk Factor Assmnt - Choose All That Apply Each Factor Represents 1 point: Medical pt on bed rest Each Risk Factor Represents 3 Points: Age 75 years or older Other congenital or acquired thrombophilia - If yes, enter type in comment: No Thrombosis Risk Factor Assessment Total Risk Factor Score: 4 Thrombosis Risk Factor Assessment Level: Moderate Risk
[2022-06-01 13:55] VITALS: BMI 21.5
[2022-06-01] MEDS ORDERED: DEXTROSE 5% IN WATER 1,000 ML IV ONE (13:59)
--- NOTE | 2022-06-01 14:04 | P.NPCON ---
History of Present Illness - Reason for Consult Consult date: 06/01/22 acute renal failure, hypernatremia - Chief Complaint Altered mental status - History of Present Illness 87-year-old white gentleman coming to the hospital from intermediate with the above complaints. Workup showed acute kidney injury and hyponatremia. He has underlying dementia and Parkinson's disease. He also has chronic kidney disease stage III B with a baseline creatinine of 1.5 MG per DL suspected nephrosclerosis. Urine showed pyuria. No other history is obtainable because of patient's dementia. Most of the history obtained from the chart. Review of Systems Constitutional: Reports as per HPI Past Medical History Past Medical History: Atrial Fibrillation, Cancer, COPD, Diabetes Mellitus, Eye Disorder, Hearing Disorder / Deafness, Hypertension, Pneumonia, Prostate Disorder, Renal Disease Additional Past Medical History / Comment(s): Pt recently admitted to [facility] on 01/25/20 with a mechanical fall/hematoma R buttock and acute blood loss anemia. Other hx: 2009 Brain cancer with surgery and radiation, L nephrectomy d/t deteriorating kidney, CKD stage III, BPH, chronic thrombocytopenia, chronic anemia, diet controlled diabetes, generalized arthritis, L2 compression fr acture, blind R eye, [place] blaterally, seasonal allergies. 05/14/21 admitted with abdominal hematoma History of Any Multi-Drug Resistant Organisms: None Reported Past Surgical History: No Surgical Hx Reported Additional Past Surgical History / Comment(s): L nephrectomy, brain tumor removal, bilateral cataract removals, colonoscopy. Past Anesthesia/Blood Transfusion Reactions: No Reported Reaction Additional Past Anesthesia/Blood Transfusion Reaction / Comment(s): Pt has re ceived blood in past without reaction. Past Psychological History: Depression Smoking Status: Former smoker Past Alcohol Use History: None Reported Past Drug Use History: None Reported - Past Family History Father Family Medical History: No Reported History Additional Family Medical History / Comment(s): Father was healthy. He at the age of 62yrs in a MVA. Mother Additional Family Medical History / Comment(s): Mother at the age of 86yrs of "heart problems." Brother(s) Additional Family Medical History / Comment(s): Patient has 3 brothers and one is passed from old age. Patient has 4 sisters with no major medical problems. Patient had 2 children one from muscular dystrophy and one is alive with no major medical problems. Medications and Allergies Home Medications Medication Instructions Recorded Confirmed Type allopurinoL [Zyloprim] 100 mg PO HS@209901/25/20 05/31/22 History Acetaminophen [Tylenol] 650 mg PO Q6H PRN 12/11/21 05/31/22 History Ferrous Sulfate 330 mg PO BID@0900,2100 02/28/22 05/31/22 History Multivitamins, Thera Liquid 15 ml PO DAILY@0900 02/28/22 05/31/22 History [Theragran Liquid (formulary)] Nitroglycerin Sl Tabs [Nitrostat] 0.4 mg SUBLINGUAL Q5M PRN 02/28/22 05/31/22 History Omeprazole 20 mg PO DAILY@0600 02/28/22 05/31/22 History Darbepoetin Ten [Aranesp] 40 mcg SQ FR@209904/02/22 05/31/22 History Lactose-Reduced Food [Ensure Plus] 1 can PO TID@0900,1300,2100 04/02/22 05/31/22 History Dapagliflozin Propanediol [Farxiga] 5 mg PO DAILY@0900 04/09/22 05/31/22 History Metoprolol Tartrate [Lopressor] 25 mg PO BID@0900,2100 04/09/22 05/31/22 History Cholestyramine (with Sugar) 4 gm PO BID@1000,1800 packet 05/08/22 05/31/22 Rx [Questran Packet] Prostat Awc 30 ml PO DAILY 05/31/22 05/31/22 History Sertraline [Zoloft] 100 mg PO HS 05/31/22 05/31/22 History Allergies Allergy/AdvReac Type Severity Reaction Status Date / Time No Known Allergies Allergy Verified 05/31/22 14:49 Physical Exam Vitals: Vital Signs Temp Pulse Pulse Resp BP BP BP 06/01/22 06:59 97/66 06/01/22 04:47 133 H 94/64 06/01/22 03:45 124 H 18 84/53 90/60 06/01/22 00:00 70 19 94/64 05/31/22 20:00 98.1 F 79 18 89/59 05/31/22 17:19 62 18 98/52 05/31/22 16:20 115 H 16 121/95 05/31/22 14:05 97.2 F L 61 16 98/69 Pulse Ox 06/01/22 06:59 06/01/22 04:47 06/01/22 03:45 98 06/01/22 00:00 98 05/31/22 20:00 100 05/31/22 17:19 98 05/31/22 16:20 98 05/31/22 14:05 100 Intake and Output 05/31/22 06/01/22 06/01/22 22:59 06:59 14:59 Output Total 101 Balance -101 Output: Urine 100 Stool 1 Other: Voiding Method Indwelling Catheter Indwelling Catheter # Bowel Movements 1 Weight 68.039 kg 68.039 kg No acute distress S1-S2 heard Decreased breath sounds Abdomen soft No edema Results - Lab Results Most recent lab results Calcium 7.9 mg/dL (8.4-10.2) L 06/01/22 08:30 Phosphorus 3.3 mg/dL (2.5-4.5) 05/31/22 14:24 Magnesium 2.2 mg/dL (1.6-2.3) 05/31/22 14:24 06/01/22 08:30 06/01/22 08:30 Assessment and Plan Assessment: #1 acute kidney injury suspect volume depletion with decreased oral intake. #2 hypernatremia secondary to volume depletion. #3 complicated UTI #4 atrial fibrillation with RVR #5 systolic and diastolic dysfunction. Plan: #1 add D5 water at 75 ML's an hour. #2 antibiotics for UTI. #3 daily renal labs. #4 give 1 dose of DDAVP.
[2022-06-01] MEDS ORDERED: DESMOPRESSIN ACETATE 4 MCG/ML VIAL (MDV) IM SCH (14:15)
[2022-06-01] MEDS: AMIODARONE 450 MG in DEXTROSE 5% IN WATER 250 ML IV SCH ×2 (16:11)
[2022-06-01] MEDS: DEXTROSE 5%-0.45% NACL 1,000 ML IV SCH (16:14)
[2022-06-01] MEDS: HEPARIN SODIUM,PORCINE/PF 5,000 UNIT/0.5 ML SYRINGE SQ SCH (19:47)
[2022-06-01] MEDS: DESMOPRESSIN ACETATE 4 MCG/ML VIAL (MDV) SQ SCH (20:49)
[2022-06-02] MEDS: AMIODARONE 450 MG in DEXTROSE 5% IN WATER 250 ML IV SCH ×2 (06:06)
--- NOTE | 2022-06-02 06:42 | P.PN ---
Subjective Progress Note Date: 06/02/22 Principal diagnosis: Atrial fibrillation with RVR This is an 87-year-old gentleman who sees her regularly irregularly with a past medical history significant for permanent atrial fibrillation, mild cardiomyopathy with EF between 40-45%. Echo was performed in 2021, known underlying dementia, who was brought from a intermediate to the hospital for further cardiac evaluation. The patient is almost nonverbal an extremely poor historian and the history was taken nurse taking care of the patient as well as from the chart. We consulted to see the patient because of atrial fibrillation with RVR. No indication that the patient was experiencing symptoms of heart racing or fluttering nor he didn't have any episodes of syncope and no symptoms of chest pain or chest discomfort. He was found to be in A. fib with RVR. The patient apparently lost about 40 pounds probably because of decreased oral intake but probably another etiology to be ruled out like cancer. He was found to be in acute renal failure with creatinine about 5 he is known to have chronic kidney disease but his baseline creatinine is around 2. He is also hypertrophy and hypernatremic. His pressure was low. He was in A. fib with RVR. He is known to have permanent atrial fibrillation he is not on any anticoagulation because of history of retroperitoneal bleeding. At this point I would advise no more AV douglas tariq agents like beta tariq or calcium channel tariq and start the patient on amiodarone. No need to repeat an echocardiogram in the light of recent echo showing an EF between 40-45%. 06/02/2022 The patient was seen this morning. He continues to have severe change in mental status and he is almost nonverbal. The heart rate has been under good control on the current dose of amiodarone IV. I'm going to stop that and start the patient on amiodarone by mouth. He is not on any anticoagulation because of history of retroperitoneal bleeding. From the cardiac standpoint of view, we'll continue the current medical regimen and follow-up with the patient as necessary. Prognosis overall is poor Objective - Vital Signs Vital signs: Vital Signs Temp 97.8 F 06/02/22 04:00 Pulse 113 H 06/02/22 04:00 Resp 18 06/02/22 04:00 BP 92/62 06/02/22 04:00 Pulse Ox 95 06/02/22 04:00 FiO2 Intake & Output 06/01/22 06/01/22 06/02/22 06:59 18:59 06:59 Intake Total 231.949 Output Total 101 102 2 Balance -101 -102 229.949 Weight 68.039 kg 68.039 kg Intake: Intake, IV Titration 231.949 Amount Amiodarone 450 mg In 231.949 Dextrose 5% in Water 250 ml @ 0.5 MG/MIN 16.667 mls/hr IV .Q15H [facility] Rx#: [id number] Output: Urine 100 100 Stool 1 2 2 Other: Voiding Method Indwelling Catheter Indwelling Catheter Indwelling Catheter # Bowel Movements 1 - Constitutional General appearance: Present: no acute distress - Respiratory Respiratory: bilateral: diminished - Cardiovascular Rhythm: irregularly irregular Heart sounds: normal: S1, S2 Abnormal Heart Sounds: Present: systolic murmur - Labs CBC & Chem 7: 06/01/22 08:30 06/01/22 08:30 Labs: Abnormal Lab Results - Last 24 Hours (Table) 06/01/22 06/01/22 Range/Units 08:30 08:30 RBC 3.07 L (4.30-5.90) m/uL Hgb 8.9 L (13.0-17.5) gm/dL Hct 31.2 L (39.0-53.0) % MCV 101.5 H (80.0-100.0) fL MCHC 28.6 L (31.0-37.0) g/dL RDW 18.2 H (11.5-15.5) % Plt Count 107 L (150-450) k/uL Sodium 165 H* (137-145) mmol/L Chloride 132 H* (98-107) mmol/L Carbon Dioxide 19 L (22-30) mmol/L BUN 108 H* (9-20) mg/dL Creatinine 5.82 H (0.66-1.25) mg/dL Glucose 137 H (74-99) mg/dL Calcium 7.9 L (8.4-10.2) mg/dL Microbiology - Last 24 Hours (Table) 05/31/22 14:28 Urine Culture - Preliminary Urine,Voided Gram Neg Bacilli 05/31/22 16:35 Blood Culture - Preliminary Blood No Growth after 24 hours 05/31/22 16:20 Blood Culture - Preliminary Blood No Growth after 24 hours Assessment and Plan Assessment: Assessment Atrial fibrillation with rapid ventricular response when the patient presented. The heart rate has improved on amiodarone Known permanent atrial fibrillation Cardiomyopathy was EF between 40-45% Change in mental status Known Alzheimer dementia Acute on chronic renal failure With loss of unknown etiology Electrolytes imbalance Multiple comorbid conditions Plan DC amiodarone IV and start the patient on amiodarone by mouth No anticoagulation in the light of history of retroperitoneal bleed The heart rate seems to be under control on the amiodarone. His heart rate has been between 100-110 We'll follow-up with the patient on when necessary
[2022-06-02 09:14] LABS: Calcium 7.7 mg/dL (8.4-10.2); Potassium 5.3 mmol/L (3.5-5.1)
[2022-06-02] MEDS: HEPARIN SODIUM,PORCINE/PF 5,000 UNIT/0.5 ML SYRINGE SQ SCH ×2 (09:34→20:42)
[2022-06-02] MEDS: DESMOPRESSIN ACETATE 4 MCG/ML VIAL (MDV) SQ SCH (09:34)
--- NOTE | 2022-06-02 11:04 | P.PN ---
Subjective Progress Note Date: 06/02/22 Follow-up for acute kidney injury and hyponatremia. Urine output marginal. No nausea vomiting or diarrhea. Objective - Vital Signs Vital signs: Vital Signs Temp 98.5 F 06/02/22 08:00 Pulse 70 06/02/22 08:00 Resp 18 06/02/22 08:00 BP 82/49 06/02/22 10:30 Pulse Ox 96 06/02/22 08:00 FiO2 Intake & Output 06/01/22 06/02/22 06/02/22 18:59 06:59 18:59 Intake Total 231.949 16.111 Output Total 102 2 Balance -102 229.949 16.111 Weight 68.039 kg Intake: Intake, IV Titration 231.949 16.111 Amount Amiodarone 450 mg In 231.949 16.111 Dextrose 5% in Water 250 ml @ 0.5 MG/MIN 16.667 mls/hr IV .Q15H [facility] Rx#: [id number] Output: Urine 100 Stool 2 2 Other: Voiding Method Indwelling Catheter Indwelling Catheter - Exam No acute distress S1-S2 heard Lungs clear No edema - Labs CBC & Chem 7: 06/01/22 08:30 06/02/22 08:30 Labs: Abnormal Lab Results - Last 24 Hours (Table) 06/01/22 06/02/22 Range/Units 08:30 08:30 RBC 3.07 L (4.30-5.90) m/uL Hgb 8.9 L (13.0-17.5) gm/dL Hct 31.2 L (39.0-53.0) % MCV 101.5 H (80.0-100.0) fL MCHC 28.6 L (31.0-37.0) g/dL RDW 18.2 H (11.5-15.5) % Plt Count 107 L (150-450) k/uL Sodium 158 H (137-145) mmol/L Potassium 5.3 H (3.5-5.1) mmol/L Chloride 129 H (98-107) mmol/L Carbon Dioxide 17 L (22-30) mmol/L BUN 111 H* (9-20) mg/dL Creatinine 6.06 H (0.66-1.25) mg/dL Glucose 211 H (74-99) mg/dL Calcium 7.7 L (8.4-10.2) mg/dL Microbiology - Last 24 Hours (Table) 05/31/22 14:28 Urine Culture - Preliminary Urine,Voided Gram Neg Bacilli 05/31/22 16:35 Blood Culture - Preliminary Blood No Growth after 24 hours 05/31/22 16:20 Blood Culture - Preliminary Blood No Growth after 24 hours Assessment and Plan Assessment: #1 acute kidney injury suspect volume depletion with decreased oral intake. #2 hypernatremia secondary to volume depletion. #3 complicated UTI #4 atrial fibrillation with RVR #5 systolic and diastolic dysfunction. Plan: #1 on D5 water at 75 ML's an hour. #2 antibiotics for UTI. #3 daily renal labs. #4 give 1 dose of DDAVP yesterday. #5 renal function still high. Continue to monitor. No acute indication for renal replacement therapy at this time.
[2022-06-02] MEDS: PANTOPRAZOLE 40 MG/10 ML VIAL IV SCH (13:53)
[2022-06-02] MEDS: AMIODARONE 200 MG TAB PO SCH ×2 (13:53→23:02)
[2022-06-02] MEDS: DEXTROSE 5%-0.45% NACL 1,000 ML IV SCH ×3 (17:27→20:44)
[2022-06-02 22:23] VITALS: TEMP 98.2
[2022-06-02] MEDS ORDERED: AMIODARONE 450 MG in DEXTROSE 5% IN WATER 250 ML IV SCH ×2 (22:45)
[2022-06-03] MEDS: DEXTROSE 5%-0.45% NACL 1,000 ML IV SCH (06:18)
[2022-06-03] MEDS: AMIODARONE 200 MG TAB PO SCH (08:39)
[2022-06-03 08:47] LABS: Anisocytosis Slight; HCT 35.7 % (39.0-53.0); HGB 10.2 gm/dL (13.0-17.5); Hypochromasia Marked; MCH 28.8 pg (25.0-35.0); MCHC 28.6 g/dL (31.0-37.0); MCV 100.6 fL (80.0-100.0); Macrocytosis Moderate; Mean Platelet Volume 16.7; RBC 3.55 m/uL (4.30-5.90); RDW 18.4 % (11.5-15.5); WBC 24.5 k/uL (3.8-10.6)
[2022-06-03 08:49] LABS: Platelet Count 169 k/uL (150-450)
[2022-06-03 09:06] LABS: Albumin 1.9 g/dL (3.5-5.0); Calcium 7.5 mg/dL (8.4-10.2); Potassium 5.4 mmol/L (3.5-5.1); Total Bilirubin 0.4 mg/dL (0.2-1.3); Total Protein 4.2 g/dL (6.3-8.2)
--- NOTE | 2022-06-03 09:31 | P.PN ---
Subjective Progress Note Date: 06/01/22 Principal diagnosis: Urinary tract infection Patient is a 87-year-old male with multiple comorbidities has been brought to the hospital for evaluation of decreased oral intake patient was noted to have significant dehydration positive UA concerning for UTI. on today's evaluation that is 06/01/2022, the patient is afebrile the patient is breathing comfortably on room air the patient remains to be lethargic unable to provide any history no vomiting or any other changes reported by the nursing staff Objective - Vital Signs Vital signs: Vital Signs Temp 98.1 F 05/31/22 20:00 Pulse 133 H 06/01/22 04:47 Resp 18 06/01/22 03:45 BP 97/66 06/01/22 06:59 Pulse Ox 98 06/01/22 03:45 FiO2 Intake & Output 05/31/22 06/01/22 06/01/22 18:59 06:59 18:59 Output Total 101 Balance -101 Weight 68.039 kg 68.039 kg Output: Urine 100 Stool 1 Other: Voiding Method Indwelling Catheter # Bowel Movements 1 - Exam GENERAL DESCRIPTION: An elderly male lying in bed in no distress RESPIRATORY SYSTEM: Unlabored breathing , decreased breath sounds at bases HEART: S1 S2 regular rate and rhythm , ABDOMEN: Soft , no tenderness EXTREMITIES: No edema feet - Labs CBC & Chem 7: 06/03/22 07:49 06/03/22 07:49 Labs: Abnormal Lab Results - Last 24 Hours (Table) 05/31/22 05/31/22 05/31/22 Range/Units 14:24 14:24 14:24 RBC 3.11 L (4.30-5.90) m/uL Hgb 8.7 L (13.0-17.5) gm/dL Hct 30.4 L (39.0-53.0) % MCV (80.0-100.0) fL MCHC 28.5 L (31.0-37.0) g/dL RDW 18.5 H (11.5-15.5) % Plt Count 97 L D (150-450) k/uL Metamyelocytes # (Man) 0.09 H (0) k/uL Sodium 162 H* (137-145) mmol/L Chloride 130 H (98-107) mmol/L Carbon Dioxide 21 L (22-30) mmol/L BUN 106 H* (9-20) mg/dL Creatinine 5.34 H (0.66-1.25) mg/dL Glucose 168 H (74-99) mg/dL Calcium 8.1 L (8.4-10.2) mg/dL AST 12 L (17-59) U/L Troponin I 0.038 H* (0.000-0.034) ng/mL Total Protein 4.9 L (6.3-8.2) g/dL Albumin 2.2 L (3.5-5.0) g/dL Urine Protein (Negative) Urine Glucose (UA) (Negative) Urine Blood (Negative) Urine Bilirubin (Negative) Ur Leukocyte Esterase (Negative) Urine RBC (0-5) /hpf Urine WBC (0-5) /hpf Urine Bacteria (None) /hpf Urine Mucus (None) /hpf 05/31/22 06/01/22 06/01/22 Range/Units 14:28 08:30 08:30 RBC 3.07 L (4.30-5.90) m/uL Hgb 8.9 L (13.0-17.5) gm/dL Hct 31.2 L (39.0-53.0) % MCV 101.5 H (80.0-100.0) fL MCHC 28.6 L (31.0-37.0) g/dL RDW 18.2 H (11.5-15.5) % Plt Count 107 L (150-450) k/uL Metamyelocytes # (Man) (0) k/uL Sodium 165 H* (137-145) mmol/L Chloride 132 H* (98-107) mmol/L Carbon Dioxide 19 L (22-30) mmol/L BUN 108 H* (9-20) mg/dL Creatinine 5.82 H (0.66-1.25) mg/dL Glucose 137 H (74-99) mg/dL Calcium 7.9 L (8.4-10.2) mg/dL AST (17-59) U/L Troponin I (0.000-0.034) ng/mL Total Protein (6.3-8.2) g/dL Albumin (3.5-5.0) g/dL Urine Protein 2+ H (Negative) Urine Glucose (UA) 2+ H (Negative) Urine Blood Large H (Negative) Urine Bilirubin 1+ H (Negative) Ur Leukocyte Esterase Large H (Negative) Urine RBC 149 H (0-5) /hpf Urine WBC >182 H (0-5) /hpf Urine Bacteria Few H (None) /hpf Urine Mucus Rare H (None) /hpf Microbiology - Last 24 Hours (Table) 05/31/22 14:28 Urine Culture - Preliminary Urine,Voided Assessment and Plan (1) UTI (urinary tract infection) Current Visit: Yes Status: Acute Code(s): N39.0 - URINARY TRACT INFECTION, SITE NOT SPECIFIED SNOMED Code(s): 56741983 Plan: 1patient is in the hospital with generalized weakness decrease oral intake patient did have chronic indwelling Ramirez catheter and did have a positive UA concerning for cath associated UTI versus Ramirez colonization as the patient not running any fever or elevated white count. 2RN and has been advised to change his Ramirez catheter and obtain a urine culture from the new Ramirez 3patient to continue with Rocephin to 1 g daily while waiting for the culture finalized 4gentle IV fluid Time with Patient: Less than 30
--- NOTE | 2022-06-03 09:33 | P.PN ---
Subjective Progress Note Date: 06/02/22 Principal diagnosis: Urinary tract infection Patient is a 87-year-old male with multiple comorbidities has been brought to the hospital for evaluation of decreased oral intake patient was noted to have significant dehydration positive UA concerning for UTI. on today's evaluation that is 06/02/2022, the patient remains to be afebrile the patient is breathing comfortably on room air the patient remains to be lethargic unable to provide any history no vomiting has been reported however the patient did have significant diarrhea per the nursing staff Objective - Vital Signs Vital signs: Vital Signs Temp 98.5 F 06/02/22 08:00 Pulse 70 06/02/22 13:46 Resp 16 06/02/22 12:00 BP 84/36 06/02/22 12:00 Pulse Ox 96 06/02/22 12:00 FiO2 Intake & Output 06/01/22 06/02/22 06/02/22 18:59 06:59 18:59 Intake Total 231.949 16.111 Output Total 102 2 3 Balance -102 229.949 13.111 Weight 68.039 kg Intake: Intake, IV Titration 231.949 16.111 Amount Amiodarone 450 mg In 231.949 16.111 Dextrose 5% in Water 250 ml @ 0.5 MG/MIN 16.667 mls/hr IV .Q15H [facility] Rx#: [id number] Output: Urine 100 Stool 2 2 3 Other: Voiding Method Indwelling Catheter Indwelling Catheter Indwelling Catheter - Exam GENERAL DESCRIPTION: An elderly male lying in bed in no distress RESPIRATORY SYSTEM: Unlabored breathing , decreased breath sounds at bases HEART: S1 S2 regular rate and rhythm , ABDOMEN: Soft , no tenderness EXTREMITIES: No edema feet - Labs CBC & Chem 7: 06/03/22 07:49 06/03/22 07:49 Labs: Abnormal Lab Results - Last 24 Hours (Table) 06/02/22 Range/Units 08:30 Sodium 158 H (137-145) mmol/L Potassium 5.3 H (3.5-5.1) mmol/L Chloride 129 H (98-107) mmol/L Carbon Dioxide 17 L (22-30) mmol/L BUN 111 H* (9-20) mg/dL Creatinine 6.06 H (0.66-1.25) mg/dL Glucose 211 H (74-99) mg/dL Calcium 7.7 L (8.4-10.2) mg/dL Microbiology - Last 24 Hours (Table) 05/31/22 14:28 Urine Culture - Preliminary Urine,Voided Gram Neg Bacilli 05/31/22 16:35 Blood Culture - Preliminary Blood No Growth after 24 hours 05/31/22 16:20 Blood Culture - Preliminary Blood No Growth after 24 hours Assessment and Plan (1) UTI (urinary tract infection) Current Visit: Yes Status: Acute Code(s): N39.0 - URINARY TRACT INFECTION, SITE NOT SPECIFIED SNOMED Code(s): 95901780 Plan: 1patient is in the hospital with generalized weakness decrease oral intake patient did have chronic indwelling Ramirez catheter and did have a positive UA concerning for cath associated UTI versus Ramirez colonization as the patient not running any fever or elevated white count. 2patient with possible UTI for the patient is covered with a Rocephin however the patient did have a significant diarrhea with recent history of C. diff colitis we will check a stool for C. diff and treat if positive overall prognosis remains to be guarded Time with Patient: Less than 30
[2022-06-03 09:50] LABS: Band Neutrophils % 6 %; Metamyelocytes # (M) 0.25 k/uL (0); Metamyelocytes % 1 %; Monocytes # (M) 0.49 k/uL (0-1.0); Myelocytes # (M) 0.49 k/uL (0); Myelocytes % 2 %; Neutrophils % (M) 80 %; Nucleated Red Blood Cells 0 /100 WBC (0-0); Total Cells Counted 200; Toxic Granulation Present
--- NOTE | 2022-06-03 09:50 | P.PN ---
Subjective Progress Note Date: 06/03/22 HISTORY OF PRESENT ILLNESS This is an 87-year-old male patient with past medical history of Parkinsons d isease, Alzheimers dementia, diabetes mellitus type 2, chronic atrial fibrillation not on anticoagulation due to retroperitoneal hematoma, history of pneumonia, benign prostatic hypertrophy, chronic kidney disease with history of left-sided nephrectomy, history of large retroperitoneal hematoma 04/2021, history of aspiration pneumonia, chronic thrombocytopenia, chronic anemia. history of cardiomyopathy with EF 45% He has had multiple hospitalizations over the past year including UTI and streptococcal bacteremia, A. fib with RVR and aspiration pneumonia, subdural hematoma requiring transfer to [facility] with no surgical intervention provided. Patient's most recent hospitalization was less than a month ago with acute kidney injury, Catheter - associated UTI with Clostricium difficile colitis, and he was sent back to [facility] on the [place] unfortunately patient was not eating or drinking well, he has lost quiet a bit of weight with heel and buttock wounds and his nurse yesterday stated that she was concerned about him and that he has not been eating or drinking anything, and had lost a lot of weight , numerous attempt according to the social work associate were made to assign patient to Hospice or Palliative care were not successful so patient was sent into the ER for mckayla peck at [facility], he was found to have CARRIE ion CKD3b, with sodium of 162, BUN 108 and Creatinine 5.8, he was found to have atrial fibrillation and RVR, and he was started on Amiodaron drip per cardiology and was taken off Lopressor, and he was started on Rocephin 1 gr IVPB daily per ID and was admitted to the Hospital. Patient was seen with his son at the bedside, not responsive, hypotensive with no urine output and I have recommended hospice care Immediately since his is imminent, his son stated that he wanted to wait for his mother and his sister to make the final decision, I have asked his nurse to call [facility] Nurse to come and talk to the family about hospice 06/03: Yesterday, patient was to be transitioned to oral amiodarone unfortunately, patient is unable to take any oral medications, currently nothing by mouth and remained on amiodarone drip. cardiac monitor technician this morning is A. fib with RVR at 120 bpm. patient was transitioned to no code yesterday. Patient remains unresponsive, blood pressure was low throughout the day and evening and improved this morning at 124/92. Pulse ox is 96% on room air. Blood cultures no growth after 48 hours 2 specimens, urine culture finalized with Morganella morganii and patient is continued on ceftriaxone. Discussed condition prognosis with the patient's son at the bedside, he is willing to have a hospice consult. Unfortunately, patient needs to leave now for work but is available by phone and we will check his messages. We anticipate need to transition patient to hospice care as is eminent. repeat blood work reveals WBC 24.5, hemoglobin 10.2 and platelet count is pending. Sodium 153, potassium 5.4, chloride 124, CO2 16, BUN 108, creatinine 6.5. Blood sugar 240. REVIEW OF SYSTEMS Constitutional: Chronically ill frail male appears to be dying HEENT: unresponsive Lungs: appears short of breath, occasional cough. Cardiovascular: no edema.,appears short of breath with oprthopnea. Abdominal: appears with sunken abdomen without pain . Genitourinary:Ramirez catheter in [lace with urine sediment Musculoskeletal:contracted with muscle atrophy Integumentary: unstageable wound on the buttock with left heel escar Neurologic: Stuporous, unresponsive Psychiatric: baseline Dementia Endocrine: lost 40 lbs PHYSICAL EXAMINATION Gen: This is an 87-year-old male.lying in bed unresponsive HEENT: Head is atraumatic, normocephalic. Pupils equal, round. Sclerae is a nicteric, conjunctivea were pale, mucous membranes of the mouth are dry NECK: Supple. No JVD. No lymphadenopathy. No thyromegaly. LUNGS: Decreased breath sounds bilaterally with a few scattered rhonchi. No intercostal retractions. HEART: First heart sound is depressed second heart sound is normal, irregularly irregular there is BAR 2/6 located at the left sternal border. ABDOMEN: Soft. Bowel sounds are present. No masses. No tenderness. Ramirez draining vincenzo urine with seiment. EXTREMITIES: No pedal edema. No calf tenderness. Dorsalis pedis palpable bilaterally. NEUROLOGICAL: Patient is stuporous does not follow commands ASSESSMENT AND PLAN: 1. Metabolic Encephalopathy due to CARRIE on CKD3b. we will continue with IVF and we will monitor labs very kel, Nephrology consult. Patient is unresponsive and NPO, not taking any oral medications. Consult with hospice. 2. Ramirez catheter associated Morganella morganii UTI with sepsis. We will continue with Rocephin 1 gr IVPB daily, ID consult appreciated. 3. Atrial fibrillation with RVR . was seen by Cardiology and he was placed on Amiodarone drip and was taken off Lopressor. Patient has been hypotensive and improved this morning, Echocardiogram was done recently and did show EF 45 %. 4. Anemia of chronic disease. was on iron and Aranesp. 5. COPD without exacerbation.we will continue with O2 support. 6. Chronic hypoxic respiratory failure usually on 2 L nasal cannula. Continue oxygen therapy as needed. 7. Diabetes mellitus type 2. patient is currently unresponsive , we will hold all Rx 8. Benign prostatic hypertrophy with urinary retention and chronic Ramirez catheter. 9. Chronic kidney disease stage III with history of left-sided nephrectomy. Avoid nephrotoxic agents. 10. History of large retroperitoneal hematoma with acute blood loss, stable, 04/2021. 11. History of subdural hematoma, not requiring surgery. 12. Chronic gout. hold off Allopurinol. 13. Recurrent depression. 14. Generalized anxiety disorder. 15. Multiple stage II ULCERS on the buttocks, wound on the heel left foot, POA. 16. GI prophylaxis. Protonix 40 mg IV push daily. 17. DVT prophylaxis. Heparin 5000 units Sc Q 8 h . is imminent, recommended Hospice care we will consult [facility]. CODE STATUS: No code Plan for hospice evaluation today, transition into hospice care. Impression and plan of care have been directed as dictated by the signing physician. Cindy Tobias nurse practitioner acting as scribe for signing physician. Objective - Vital Signs Vital signs: Vital Signs Temp 98.2 F 06/02/22 20:00 Pulse 120 H 06/03/22 04:00 Resp 18 06/03/22 04:00 BP 124/92 06/03/22 04:00 Pulse Ox 96 06/03/22 04:00 FiO2 Intake & Output 06/02/22 06/03/22 06/03/22 18:59 06:59 18:59 Intake Total 16.111 Output Total 3 4 Balance 13.111 -4 Intake: Intake, IV Titration 16.111 Amount Amiodarone 450 mg In 16.111 Dextrose 5% in Water 250 ml @ 0.5 MG/MIN 16.667 mls/hr IV .Q15H [facility] Rx#: [id number] Output: Stool 3 4 Other: Voiding Method Indwelling Catheter Indwelling Catheter # Voids 1 - Labs CBC & Chem 7: 06/03/22 07:49 06/03/22 07:49 Labs: Abnormal Lab Results - Last 24 Hours (Table) 06/02/22 Range/Units 08:30 Sodium 158 H (137-145) mmol/L Potassium 5.3 H (3.5-5.1) mmol/L Chloride 129 H (98-107) mmol/L Carbon Dioxide 17 L (22-30) mmol/L BUN 111 H* (9-20) mg/dL Creatinine 6.06 H (0.66-1.25) mg/dL Glucose 211 H (74-99) mg/dL Calcium 7.7 L (8.4-10.2) mg/dL Microbiology - Last 24 Hours (Table) 05/31/22 14:28 Urine Culture - Final Urine,Voided Morganella morganii 05/31/22 16:35 Blood Culture - Preliminary Blood No Growth after 48 hours 05/31/22 16:20 Blood Culture - Preliminary Blood No Growth after 48 hours
[2022-06-03 09:51] LABS: Large Platelets Present
[2022-06-03 09:52] LABS: Poikilocytosis (M) Present
[2022-06-03 09:53] LABS: Crenated RBC Present
--- NOTE | 2022-06-03 10:56 | P.PN ---
Subjective Patient is seen in follow-up for acute kidney injury on chronic kidney disease. Creatinine 6.5 today. Patient is resting in bed. Poor historian. Awaiting hospice. Vital signs - afebrile. Hypotensive. General: Resting in bed. HEENT: Head exam is unremarkable. LUNGS: Breath sounds decreased. HEART: Rate and Rhythm are regular. ABDOMEN: Soft, no distention. EXTREMITITES: No edema. Objective - Vital Signs Vital signs: Vital Signs Temp 98.2 F 06/02/22 20:00 Pulse 75 06/03/22 09:02 Resp 20 06/03/22 09:02 BP 75/51 06/03/22 09:02 Pulse Ox 93 L 06/03/22 09:02 FiO2 Intake & Output 06/02/22 06/03/22 06/03/22 18:59 06:59 18:59 Intake Total 16.111 Output Total 3 4 Balance 13.111 -4 Intake: Intake, IV Titration 16.111 Amount Amiodarone 450 mg In 16.111 Dextrose 5% in Water 250 ml @ 0.5 MG/MIN 16.667 mls/hr IV .Q15H [facility] Rx#: [id number] Output: Stool 3 4 Other: Voiding Method Indwelling Catheter Indwelling Catheter # Voids 1 - Labs CBC & Chem 7: 06/03/22 07:49 06/03/22 07:49 Labs: Abnormal Lab Results - Last 24 Hours (Table) 06/03/22 06/03/22 Range/Units 07:49 07:49 WBC 24.5 H (3.8-10.6) k/uL RBC 3.55 L (4.30-5.90) m/uL Hgb 10.2 L (13.0-17.5) gm/dL Hct 35.7 L (39.0-53.0) % MCV 100.6 H (80.0-100.0) fL MCHC 28.6 L (31.0-37.0) g/dL RDW 18.4 H (11.5-15.5) % Neutrophils # (Manual) 21.00 H (1.3-7.7) k/uL Metamyelocytes # (Man) 0.25 H (0) k/uL Myelocytes # (Manual) 0.49 H (0) k/uL Sodium 153 H (137-145) mmol/L Potassium 5.4 H (3.5-5.1) mmol/L Chloride 124 H (98-107) mmol/L Carbon Dioxide 16 L (22-30) mmol/L BUN 108 H* (9-20) mg/dL Creatinine 6.50 H (0.66-1.25) mg/dL Glucose 240 H (74-99) mg/dL Calcium 7.5 L (8.4-10.2) mg/dL AST 14 L (17-59) U/L Total Protein 4.2 L (6.3-8.2) g/dL Albumin 1.9 L (3.5-5.0) g/dL Microbiology - Last 24 Hours (Table) 05/31/22 14:28 Urine Culture - Final Urine,Voided Morganella morganii 05/31/22 16:35 Blood Culture - Preliminary Blood No Growth after 48 hours 05/31/22 16:20 Blood Culture - Preliminary Blood No Growth after 48 hours Assessment and Plan Plan: Assessment: 1. Acute kidney injury secondary to ATN from hypovolemia, hypotension. Creatinine 6.5 today. Oliguric. 2. Chronic kidney disease stage IIIB with baseline creatinine 1.6-1.7. Patient has a solitary right kidney. 3. A. fib with RVR. On amiodarone drip. 4. Hypernatremia from lack of oral water intake. 5. Chronic systolic CHF with ejection fraction of 40-45%. 6. Morganella UTI. On antibiotics. 7. Metabolic acidosis secondary to acute kidney injury. Plan: Maintain IV fluids. Only conservative care. No aggressive interventions, including renal replacement therapy. Plan is for hospice.
[2022-06-03 12:14] VITALS: BP 95/58
[2022-06-03] MEDS: HYDROmorphone 0.5 MG/0.5 ML SYRINGE IVP PRN ×3 (12:17→22:06)
[2022-06-03] MEDS ORDERED: LORazepam 2 MG/ML INJ IV PRN (12:25)
[2022-06-03] MEDS ORDERED: ATROPINE OPHTH SOLN 1% 5ML BTL SUBLINGUAL PRN (12:25)
[2022-06-03] MEDS ORDERED: SCOPOLAMINE 1 MG/72 HR PATCH TRANSDERM SCH (12:30)
[2022-06-03] MEDS ORDERED: LORazepam 1 MG/0.5 ML VIAL IV PRN (14:06)
[2022-06-03] MEDS: HEPARIN SODIUM,PORCINE/PF 5,000 UNIT/0.5 ML SYRINGE SQ SCH (14:41)
[2022-06-03] MEDS: PANTOPRAZOLE 40 MG/10 ML VIAL IV SCH (14:41)
[2022-06-04 00:29] VITALS: PULSE 90; RESP 24
--- NOTE | 2022-06-04 09:03 | CDI ---
Documentation Clarification Form Date: 06/03/2022 01:45:00 PM From: Sharon Carty RN CCDS Admit Date: 05/31/2022 03:57:00 PM Patient Name: Alen Swanson Visit Number: [id number] Discharge Date: 06/04/2022 03:00:00 AM ATTENTION: The Clinical Documentation Specialists (CDI) and [facility] Coding Staff appreciate your assistance in clarifying documentation. Please respond to the clarification below the line at the bottom and electronically sign. The CDI & [facility] Coding staff will review the response and follow-up if needed. Please note: Queries are made part of the Legal Health Record. If you have any questions, please contact the author of this message via ITS. Dr. Wilfred Cazares The Registered Dietitian assessment on 06/01 indicates the patient is underweight. Based on this information and the findings below, is there an additional diagnosis that is clinically appropriate for this patient? History/Risk Factors: 87-year-old male presents to the ED via EMS from [facility] for not eating or drinking anything and had lost a lot of weight sent in for evaluation. Medical History: Parkinsons disease, Alzheimers dementia, DM2, CKD, Aspiration pneumonia and UTI. H&P, 06/01. Clinical Indicators: Admitting Diagnosis: Multiple stage II ulcers on buttocks, wound on the left heel /left foot. Ramirez catheter associated UTI with sepsis, CKD 3 Nephrectomy left side, Anemia of chronic disease and Atrial Fib RVR. RD Consult Assessment: Current BMI: 21.5 Height 5ft 10in. Body mass classification: Underweight. Initial Assessment: Patient non-responsive. Nutrition Assessment: Intake: Fair; Additional 50%, clear liquid diet x 1 meal. Anthropometrics: Weight 68.039 kg; Weight Measurement Method: Estimated by Staff. Nutritional Interventions: General / Healthful diet. Coordination of Nutrition Care: TBD, will monitor hospice status. Treatment: Dietary Consult: See above Diet: clear Liquid. Lab monitoring: Daily Chemistry Is there an additional diagnosis that is clinically appropriate for this patient? [ ] Mild Protein-Calorie Malnutrition [ ] Moderate Protein-Calorie Malnutrition [ ] Severe Protein-Calorie Malnutrition [ ] Other condition, please specify [ ] Unable to Determine Documented in DCS Severe PCM Dr. Cazares/TRISTIAN Tobias. (Template Last Revised: October 2020) MTDD
--- NOTE | 2022-06-04 10:58 | P.DS ---
Providers Date of admission: 05/31/22 15:57 Expected date of discharge: 06/04/22 Attending physician: Wilfred Cazares Consults: 05/31/22 15:56 Consult Physician Routine Consulting Provider: Annalisa Arias Consult Reason/Comments: uti, recent c diff Do you want consulting provider notified?: Yes 06/01/22 04:36 Consult Physician Routine Consulting Provider: Amauri Yuan Consult Reason/Comments: a fib rvr Do you want consulting provider notified?: Yes, Notify in am Primary care physician: Wilfred Cazares Hospital Course: HISTORY OF PRESENT ILLNESS This is an 87-year-old male patient with past medical history of Parkinsons disease, Alzheimers dementia, diabetes mellitus type 2, chronic atrial fibrillation not on anticoagulation due to retroperitoneal hematoma, history of pneumonia, benign prostatic hypertrophy, chronic kidney disease with history of left-sided nephrectomy, history of large retroperitoneal hematoma 04/2021, history of aspiration pneumonia, chronic thrombocytopenia, chronic anemia. history of cardiomyopathy with EF 45% He has had multiple hospitalizations over the past year including UTI and streptococcal bacteremia, A. fib with RVR and aspiration pneumonia, subdural hematoma requiring transfer to [facility] with no surgical intervention provided. Patient's most recent hospitalization was less than a month ago with acute kidney injury, Catheter - associated UTI with Clostricium difficile colitis, and he was sent back to [facility] on the [place] unfortunately patient was not eating or drinking well, he has lost quiet a bit of weight with heel and buttock wounds and his nurse yesterday stated that she was concerned about him and that he has not been eating or drinking anything, and had lost a lot of weight , numerous attempt according to the social work case manager were made to assign patient to Hospice or Palliative care were not successful so patient was sent into the ER for evaluation at [facility], he was found to have CARRIE ion CKD3b, with sodium of 162, BUN 108 and Creatinine 5.8, he was found to have atrial fibrillation and RVR, and he was started on Amiodaron drip per cardiology and was taken off Lopressor, and he was started on Rocephin 1 gr IVPB daily per ID and was admitted to the Hospital. Patient was seen with his son at the bedside, not responsive, hypotensive with no urine output and I have recommended hospice care Immediately since his is imminent, his son stated that he wanted to wait for his mother and his sister to make the final decision, I have asked his nurse to call [facility] Nurse to come and talk to the family about hospice 06/03: Yesterday, patient was to be transitioned to oral amiodarone unfortunately, patient is unable to take any oral medications, currently nothing by mouth and remained on amiodarone drip. exchange clerk this morning is A. fib with RVR at 120 bpm. patient was transitioned to no code yesterday. Patient remains unresponsive, blood pressure was low throughout the day and evening and improved this morning at 124/92. Pulse ox is 96% on room air. Blood cultures no growth after 48 hours 2 specimens, urine culture finalized with Morganella morganii and patient is continued on ceftriaxone. Discussed condition prognosis with the patient's son at the bedside, he is willing to have a hospice consult. Unfortunately, patient needs to leave now for work but is available by phone and we will check his messages. We anticipate need to transition patient to hospice care as is eminent. repeat blood work reveals WBC 24.5, hemoglobin 10.2 and platelet count is pending. Sodium 153, potassium 5.4, chloride 124, CO2 16, BUN 108, creatinine 6.5. Blood sugar 240. 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 Please see nursing documentation for details. DISCHARGE DIAGNOSES 1. Metabolic Encephalopathy due to CARRIE on CKD3b. 2. Ramirez catheter associated Morganella morganii UTI with sepsis. 3. Atrial fibrillation with RVR. 4. Anemia of chronic disease. 5. COPD without exacerbation. 6. Chronic hypoxic respiratory failure. 7. Diabetes mellitus type 2. 8. Benign prostatic hypertrophy with urinary retention and chronic Ramirez catheter. 9. Chronic kidney disease stage III with history of left-sided nephrectomy. 10. History of large retroperitoneal hematoma with acute blood loss, stable, 04/2021. 11. History of subdural hematoma, not requiring surgery. 12. Chronic gout. 13. Recurrent depression. 14. Generalized anxiety disorder. 15. Multiple stage II ULCERS on the buttocks, wound on the heel left foot, POA. 16. Severe protein calorie malnutrition. Impression and plan of care have been directed as dictated by the signing physician. Cindy Tobias nurse practitioner acting as scribe for signing physician. Plan - Discharge Summary Discharge Rx Participant: No New Discharge Prescriptions: No Action allopurinoL [Zyloprim] 100 mg PO HS@2099 Omeprazole 20 mg PO DAILY@0600 Multivitamins, Thera Liquid [Theragran Liquid (formulary)] 15 ml PO DAILY@0900 Ferrous Sulfate 330 mg PO BID@899,2099 Cholestyramine (with Sugar) [Questran Packet] 4 gm PO BID@1000,1800 packet Sertraline [Zoloft] 100 mg PO HS Acetaminophen [Tylenol] 650 mg PO Q6H PRN PRN Reason: Fever And/ Or Pain Nitroglycerin Sl Tabs [Nitrostat] 0.4 mg SUBLINGUAL Q5M PRN PRN Reason: Chest Pain Lactose-Reduced Food [Ensure Plus] 1 can PO TID@0900,1300,2099 Darbepoetin Ten [Aranesp] 40 mcg SQ FR@2099 Dapagliflozin Propanediol [Farxiga] 5 mg PO DAILY@899 Metoprolol Tartrate [Lopressor] 25 mg PO BID@899,2099 Prostat Awc 30 ml PO DAILY Discharge Medication List allopurinoL [Zyloprim] 100 mg PO HS@209901/25/20 [History] Acetaminophen [Tylenol] 650 mg PO Q6H PRN 12/11/21 [History] Ferrous Sulfate 330 mg PO BID@0900,209902/28/22 [History] Multivitamins, Thera Liquid [Theragran Liquid (formulary)] 15 ml PO DAILY@0900 02/28/22 [History] Nitroglycerin Sl Tabs [Nitrostat] 0.4 mg SUBLINGUAL Q5M PRN 02/28/22 [History] Omeprazole 20 mg PO DAILY@0602/28/22 [History] Darbepoetin Ten [Aranesp] 40 mcg SQ FR@209904/02/22 [History] Lactose-Reduced Food [Ensure Plus] 1 can PO TID@0900,1300,209904/02/22 [History] Dapagliflozin Propanediol [Farxiga] 5 mg PO DAILY@89904/09/22 [History] Metoprolol Tartrate [Lopressor] 25 mg PO BID@0900,209904/09/22 [History] Cholestyramine (with Sugar) [Questran Packet] 4 gm PO BID@1000,1800 packet 05/08/22 [Rx] Prostat Awc 30 ml PO DAILY 05/31/22 [History] Sertraline [Zoloft] 100 mg PO HS 05/31/22 [History] Follow up Appointment(s)/Referral(s): Wilfred Cazares MD [Primary Care Provider] - 1-2 days Discharge Disposition: - Preliminary Cause of Preliminary Cause of : ACUTE KIDNEY INJURY
== END 2022-06-04 03:00 | disposition expired | DRG 698 ==
LOC: EC 13:48 → 3SCARD 15:57
PROVIDERS: ADMIT Internal Medicine; ATTEND Internal Medicine
DX: T83.511A Infection and inflammatory reaction due to indwelling urethral catheter, initial encounter (principal); A41.59 Other Gram-negative sepsis; G93.41 Metabolic encephalopathy; E43 Unspecified severe protein-calorie malnutrition; N17.0 Acute kidney failure with tubular necrosis; K66.1 Hemoperitoneum; E87.0 Hyperosmolality and hypernatremia; E87.20 Acidosis, unspecified; F02.83 Dementia in other diseases classified elsewhere, unspecified severity, with mood disturbance; F33.9 Major depressive disorder, recurrent, unspecified; I48.21 Permanent atrial fibrillation; I42.9 Cardiomyopathy, unspecified; I50.22 Chronic systolic (congestive) heart failure; I13.0 Hypertensive heart and chronic kidney disease with heart failure and stage 1 through stage 4 chronic kidney disease, or unspecified chronic kidney disease; J96.11 Chronic respiratory failure with hypoxia; F02.84 Dementia in other diseases classified elsewhere, unspecified severity, with anxiety; N39.0 Urinary tract infection, site not specified; B96.4 Proteus (mirabilis) (morganii) as the cause of diseases classified elsewhere; G30.9 Alzheimer's disease, unspecified; F41.1 Generalized anxiety disorder; J44.9 Chronic obstructive pulmonary disease, unspecified; E11.22 Type 2 diabetes mellitus with diabetic chronic kidney disease; G20 Parkinson's disease; Z51.5 Encounter for palliative care; Z66 Do not resuscitate; N18.32 Chronic kidney disease, stage 3b; Y84.6 Urinary catheterization as the cause of abnormal reaction of the patient, or of later complication, without mention of misadventure at the time of the procedure; D63.1 Anemia in chronic kidney disease; D69.6 Thrombocytopenia, unspecified; L98.419 Non-pressure chronic ulcer of buttock with unspecified severity; R62.7 Adult failure to thrive; E86.0 Dehydration; E86.1 Hypovolemia; H54.61 Unqualified visual loss, right eye, normal vision left eye; I95.9 Hypotension, unspecified; S90.922A Unspecified superficial injury of left foot, initial encounter; N40.1 Benign prostatic hyperplasia with lower urinary tract symptoms; R33.8 Other retention of urine; M13.0 Polyarthritis, unspecified; M1A.9XX0 Chronic gout, unspecified, without tophus (tophi); H91.93 Unspecified hearing loss, bilateral; Z68.21 Body mass index [BMI] 21.0-21.9, adult; Z79.899 Other long term (current) drug therapy; Z85.841 Personal history of malignant neoplasm of brain; Z92.3 Personal history of irradiation; Z90.5 Acquired absence of kidney; Z79.84 Long term (current) use of oral hypoglycemic drugs; Z87.891 Personal history of nicotine dependence; Z98.42 Cataract extraction status, left eye; Z98.41 Cataract extraction status, right eye
CPT/HCPCS: 36415; 71046; 80048; 80053; 81001; 83605; 83735; 84100; 84439; 84443; 84481; 84484; 85025; 85610; 85730; 87040; 87077; 87086; 87186; 87324; 93005; 96360; 96361; 99285